=== PATIENT | female | born 1935 ===

== ENCOUNTER 2016-08-05 09:49 | Emergency (ER) | payer MEDICARE, MEDICAID ==
[2016-08-05 09:57] VITALS: BMI 21.5
--- NOTE | 2016-08-05 10:36 | ED PDOC ---
HPI: Seizure Time Seen by Provider: 08/05/16 10:07 Chief Complaint (Nursing): Seizure Chief Complaint (Provider): Seizure History Per: Patient History/Exam Limitations: no limitations Recent Seizure Activity Began: Just Before Arrival Number Of Seizures: One Length Of Seizures (Duration): Minutes Quality Of Seizure: Generalized Precipitating Factor(s): None Post-ictal Period: Yes Severity: Mild Additional Complaint(s): Patient is a 81 year old female with a history of dementia, brought to ED by EMS for seizure activity this morning. As per EMS, patient had a witnessed seizure while at her senior group. Patient reportedly collapsed to the floor on her left side seizure lasting 2 minutes. Patient in ED denies any complaints and is AO x3 PMD: Dr. Lara Past Medical History Reviewed: Historical Data, Nursing Documentation, Vital Signs Vital Signs: Last Vital Signs Temp 98.1 F 08/05/16 09:57 Pulse 87 08/05/16 09:57 Resp BP 155/75 H 08/05/16 09:57 Pulse Ox 97 08/05/16 12:07 - Medical History PMH: Anxiety, Arthritis, Asthma, Back Problems, Dementia (forgetful), Depression , Fractures (L wrist), Hypercholesterolemia, Seizures Denies: HIV, Chronic Kidney Disease - Surgical History Surgical History: No Surg Hx - Family History Family History: States: Unknown Family Hx - Immunization History Hx Tetanus Toxoid Vaccination: No - Home Medications Home Medications: Ambulatory Orders Medication Instructions Recorded Lamotrigine [Lamictal] 25 mg PO TID 05/06/14 Ascorbic Acid [Vitamin C] 500 mg PO DAILY 11/10/15 DiphenhydrAMINE [Benadryl] 50 mg PO HS 11/10/15 Donepezil HCl [Donepezil HCl] 10 mg PO HS 11/10/15 Duloxetine HCl [Duloxetine] 20 mg PO DAILY 11/10/15 Gabapentin [Neurontin] 100 mg PO TID 11/10/15 Rosuvastatin Calcium [Crestor] 20 mg PO HS 11/10/15 rOPINIRole [Requip] 1 mg PO HS 11/10/15 Fluticasone Nasal [Flonase] 2 spray GUSTAVO DAILY 08/05/16 Fluticasone/Vilanterol [Breo 1 puff IH DAILY 08/05/16 Ellipta 100-25 Mcg INH] Levocetirizine Dihydrochloride 5 mg PO DAILY 08/05/16 [Xyzal] Meclizine HCl [Meclizine HCl] 12.5 mg PO TID PRN 08/05/16 Oxybutynin XL [Ditropan XL] 15 mg PO DAILY 08/05/16 traMADol [Ultram] 50 mg PO Q6H PRN 08/05/16 - Allergies Allergies/Adverse Reactions: Allergies Allergy/AdvReac Type Severity Reaction Status Date / Time Penicillins Allergy RASH Verified 08/05/16 10:18 Review of Systems ROS Statement: Except As Marked, All Systems Reviewed And Found Negative Constitutional: Negative for: Weakness Eyes: Negative for: Vision Change Cardiovascular: Negative for: Chest Pain, Palpitations Respiratory: Negative for: Shortness of Breath Gastrointestinal: Negative for: Nausea, Vomiting, Abdominal Pain Musculoskeletal: Negative for: Neck Pain Neurological: Positive for: Seizures. Negative for: Weakness, Headache, Dizziness Physical Exam - Reviewed Nursing Documentation Reviewed: Yes Vital Signs Reviewed: Yes - Physical Exam Appears: Positive for: Non-toxic, No Acute Distress Head Exam: Positive for: ATRAUMATIC, NORMAL INSPECTION Skin: Positive for: Normal Color, Warm Eye Exam: Positive for: Normal appearance, EOMI, PERRL Neck: Positive for: Normal, Painless ROM Cardiovascular/Chest: Positive for: Regular Rate, Rhythm. Negative for: Murmur Respiratory: Positive for: Normal Breath Sounds. Negative for: Respiratory Distress Gastrointestinal/Abdominal: Positive for: Normal Exam. Negative for: Tenderness Extremity: Positive for: Normal ROM. Negative for: Pedal Edema Neurologic/Psych: Positive for: Alert, Oriented. Negative for: Motor/Sensory Deficits - Laboratory Results Result Diagrams: 08/05/16 11:18 08/05/16 11:18 - ECG O2 Sat by Pulse Oximetry: 97 (RA) Pulse Ox Interpretation: Normal Medical Decision Making Medical Decision Making: Time: 1010 Initial impression: recurrent seizure, head injury vs syncope Initial plan: -- CT-head -- EKG -- CMP -- Magnesium -- Urine dip -- CBC Time: 1200 CT-head results reviewed Impression: No acute intracranial abnormality Mild chronic microangiopathic changes and moderate age related global parenchymal volume loss Scribe Attestation: Documented by Marie Pulido acting as a scribe for Vamsi Savage MD MD Scribe Attestation: All medical record entries made by the Florinaibchad were at my direction and personally dictated by me. I have reviewed the chart and agree that the record accurately reflects my personal performance of the history, physical exam, medical decision making, and the department course for this patient. I have also personally directed, reviewed, and agree with the discharge instructions and disposition. Disposition - Clinical Impression Clinical Impression: Seizure disorder - Patient ED Disposition Is Patient to be Admitted: No Counseled Patient/Family Regarding: Studies Performed, Diagnosis - Disposition Disposition: Routine/Home Disposition Time: 12:23 Condition: GOOD
[2016-08-05 11:29] LABS: BASO % 0.6 % (0.0-2.0); EOS # 0.1 K/uL (0.0-0.7); HEMATOCRIT 41.4 % (34.0-47.0); LYMPH # 1.1 K/uL (1.0-4.3); LYMPH % 21.8 % (20.0-40.0); MEAN CELL VOLUME 86.8 fl (81.0-99.0); MEAN CORPUSCULAR HEMOGLOBIN 28.8 pg (27.0-31.0); MEAN CORPUSCULAR HGB CONC 33.2 g/dL (33.0-37.0); MEAN PLATELET VOLUME 10.3 fl (7.2-11.7); MONO # 0.6 K/uL (0.0-0.8); MONO % 11.3 % (0.0-10.0); NEUT # 3.1 K/uL (1.8-7.0); NEUT % 64.3 % (50.0-75.0); NRBC % 0.2 % (0.0-0.0); RED CELL DISTRIBUTION WIDTH 13.7 % (11.5-14.5); WHITE BLOOD COUNT 4.9 K/uL (4.8-10.8)
[2016-08-05 11:36] LABS: CHLORIDE 100 mmol/L (98-107); SODIUM 141 mmol/l (132-148)
[2016-08-05 11:37] LABS: POTASSIUM 4.3 MMOL/L (3.6-5.0)
[2016-08-05 11:39] LABS: ALB/GLOB RATIO 1.4 (1.0-2.1); ALKALINE PHOSPHATASE 54 U/L (38-126); ALT/SGPT 26 U/L (9-52); AST/SGOT 27 U/L (14-36); BLOOD UREA NITROGEN 14 mg/dl (7-17); CALCIUM 9.3 mg/dL (8.4-10.2); CARBON DIOXIDE 29 mmol/L (22-30); GFR AFRICAN-AMERICAN > 60; GLUCOSE,RANDOM 139 mg/dL (65-105); TOTAL PROTEIN 7.3 G/DL (6.3-8.2)
--- NOTE | 2016-08-05 11:39 | CT ---
PROCEDURE: CT HEAD WITHOUT CONTRAST. HISTORY: Seizure COMPARISON: 11/10/2015 TECHNIQUE: Axial computed tomography images were obtained through the head/brain without intravenous contrast. Radiation dose: Total exam DLP = 1024.97 mGy-cm. This CT exam was performed using one or more of the following dose reduction techniques: Automated exposure control, adjustment of the mA and/or kV according to patient size, and/or use of iterative reconstruction technique. FINDINGS: HEMORRHAGE: No intracranial hemorrhage. BRAIN: There are mild chronic microangiopathic changes. There is no mass, mass effect or abnormal extra-axial fluid collection. VENTRICLES: There is moderate age-related global parenchymal volume loss and proportionate enlargement of the ventricles and cortical sulci. CALVARIUM: The skull base and calvarium are normal. PARANASAL SINUSES: Predominantly clear. MASTOID AIR CELLS: Predominantly clear. OTHER FINDINGS: None. IMPRESSION: No acute intracranial abnormality. Mild chronic microangiopathic changes and moderate age-related global parenchymal volume loss.
[2016-08-05 12:53] VITALS: RESP 20; O2SAT 98
[2016-08-05 14:26] VITALS: BP 128/78; PULSE 80; TEMP 97.8
--- NOTE | 2016-08-05 19:03 | CARD ---
APPROVED REPORT EKG Measurement Heart [id number] <Conclusion> Normal sinus rhythm Possible Left atrial enlargement Borderline ECG
== END 2016-08-05 14:26 | disposition home or self-care (01) ==
LOC: H.ER 09:49
DX: G40.909 Epilepsy, unspecified, not intractable, without status epilepticus (principal); E78.00 Pure hypercholesterolemia, unspecified; F03.90 Unspecified dementia, unspecified severity, without behavioral disturbance, psychotic disturbance, mood disturbance, and anxiety

== ENCOUNTER 2016-09-11 09:03 | Observation (INO) | payer MEDICARE, MEDICAID ==
[2016-09-11 09:03] VITALS: BMI 21.5
[2016-09-11 09:05] VITALS: BP 146/76; RESP 16; TEMP 97.8; O2SAT 99
[2016-09-11] MEDS ORDERED: Lidocaine 5% Patch TD STA (09:22)
--- NOTE | 2016-09-11 09:27 | ED PDOC ---
HPI: Trauma/Fall - HPI Time Seen by Provider: 09/11/16 09:15 Chief Complaint (Nursing): Back Pain Chief Complaint (Provider): back pain History Per: Patient History/Exam Limitations: no limitations Onset/Duration Of Symptoms: Days (x 3) Injury Occurred (Timing): Days Ago: (x 3) Additional Complaint(s): Patient is an 81 year old female, with a previous medical history of arthritis, seizures, and possible hypercholesterolemia who presents to the ED with complaints of right sided back/flank pain associated with right lateral rib pain secondary to sustaining a fall 3 days ago. Patient reports that she lost balance while getting out of bed and hitting a small end table/night stand. Patient denies head trauma, loss of consciousness, neck pain or chest pain. Pt does c/o pain with deep inspiration. Patient states her home pain medications that she takes for arthritis is not helping w/ her pain. PMD: Dr. Lara Past Medical History Reviewed: Historical Data, Nursing Documentation, Vital Signs Vital Signs: Last Vital Signs Temp 97.8 F 09/11/16 09:04 Pulse 86 09/11/16 16:03 Resp 16 09/11/16 09:04 BP 146/76 09/11/16 09:04 Pulse Ox 99 09/11/16 16:03 - Medical History PMH: Anxiety, Arthritis, Asthma, Back Problems, Dementia (forgetful), Depression , Fractures (L wrist), Hypercholesterolemia, Seizures Denies: HIV, Chronic Kidney Disease - Surgical History Surgical History: No Surg Hx - Family History Family History: States: CAD - Social History Current smoker - smoking cessation education provided: No Alcohol: None Drugs: Denies - Immunization History Hx Tetanus Toxoid Vaccination: No - Home Medications Home Medications: Ambulatory Orders Medication Instructions Recorded Lamotrigine [Lamictal] 25 mg PO TID 05/06/14 Ascorbic Acid [Vitamin C] 500 mg PO DAILY 11/10/15 DiphenhydrAMINE [Benadryl] 50 mg PO HS 11/10/15 Donepezil HCl [Donepezil HCl] 10 mg PO HS 11/10/15 Duloxetine HCl [Duloxetine] 20 mg PO DAILY 11/10/15 Gabapentin [Neurontin] 100 mg PO TID 11/10/15 Rosuvastatin Calcium [Crestor] 20 mg PO HS 11/10/15 rOPINIRole [Requip] 1 mg PO HS 11/10/15 Fluticasone Nasal [Flonase] 2 spray GUSTAVO DAILY 08/05/16 Fluticasone/Vilanterol [Breo 1 puff IH DAILY 08/05/16 Ellipta 100-25 Mcg INH] Levocetirizine Dihydrochloride 5 mg PO DAILY 08/05/16 [Xyzal] Meclizine HCl [Meclizine HCl] 12.5 mg PO TID PRN 08/05/16 Oxybutynin XL [Ditropan XL] 15 mg PO DAILY 08/05/16 traMADol [Ultram] 50 mg PO Q6H PRN 08/05/16 - Allergies Allergies/Adverse Reactions: Allergies Allergy/AdvReac Type Severity Reaction Status Date / Time Penicillins Allergy RASH Verified 08/05/16 10:18 Review of Systems ROS Statement: Except As Marked, All Systems Reviewed And Found Negative Cardiovascular: Positive for: Other (pain with deep breaths, right lateral rib pain ). Negative for: Chest Pain Respiratory: Negative for: Shortness of Breath Musculoskeletal: Positive for: Back Pain (right back pain and flank) Physical Exam - Reviewed Nursing Documentation Reviewed: Yes Vital Signs Reviewed: Yes - Physical Exam Appears: Positive for: Well (alert and oriented to name, , location), Non- toxic, No Acute Distress Head Exam: Positive for: ATRAUMATIC, NORMAL INSPECTION, NORMOCEPHALIC Skin: Positive for: Normal Color (no echymosis to right flank/back) Eye Exam: Positive for: Normal appearance, EOMI, PERRL ENT: Positive for: Normal ENT Inspection Neck: Positive for: Normal (no c-spine tenderness), Painless ROM Cardiovascular/Chest: Positive for: Regular Rate, Rhythm. Negative for: Chest Non Tender (tenderness right lower lateral rib ) Respiratory: Positive for: Normal Breath Sounds Gastrointestinal/Abdominal: Positive for: Normal Exam, Bowel Sounds, Soft. Negative for: Tenderness Back: Positive for: R CVA Tenderness, Other (right paralumbar tenderness, pain with movement ). Negative for: Vertebral Tenderness Extremity: Positive for: Normal ROM, Other (right leg is not shortened; nor is it externally rotated). Negative for: Tenderness, Calf Tenderness, Deformity Neurologic/Psych: Positive for: Alert, Oriented (x 3). Negative for: Motor/ Sensory Deficits - Laboratory Results Result Diagrams: 09/11/16 09:40 09/11/16 09:40 - ECG ECG Rhythm: Positive for: Sinus Rhythm (normal ) Interpretation Of ECG: left atrial enlargement Rate: 86 (bpm) O2 Sat by Pulse Oximetry: 99 (RA) Pulse Ox Interpretation: Normal Medical Decision Making Medical Decision Making: Initial Impression: Fall with rib/back/flank pain Differential diagnosis includes but is not limited to: contusions, fracture (s) Initial Plan: * EKG * labs * x-ray ribs and chest * x-ray thoracic spine * x-ray right hip * x-ray lumbar spine * urinalysis * morphine * lidocaine * motrin * reevaluation Scribe Attestation: Documented by Iris Pompa, acting as a scribe for Maik Vasques D.O. Provider Scribe Attestation: All medical record entries made by the Scribe were at my direction and personally dictated by me. I have reviewed the chart and agree that the record accurately reflects my personal performance of the history, physical exam, medical decision making, and the department course for this patient. I have also personally directed, reviewed, and agree with the discharge instructions and disposition. ED OBSERVATION Discharge: Yes Date of observation admission: 09/11/16 Time of observation admission: 11:46 - Observation admission statement Patient is being placed in observation because:: Patient is still symptomatic; will need additional workup - Goals of Observation Goals of observation are:: Improvement of symptoms - Progress Note Progress Note: 09/11/16 16:02 No fractures on CTs. Pt feels better. Will d/c home. Disposition - Clinical Impression Clinical Impression: Back disorder, Contusion of rib on right side, Fall - Patient ED Disposition Is Patient to be Admitted: No - Disposition Disposition: Routine/Home Disposition Time: 16:03 Condition: IMPROVED - POA Present On Arrival: Falls Or Trauma
[2016-09-11 09:56] LABS: BASO % 0.6 % (0.0-2.0); EOS % 1.1 % (0.0-4.0); HEMATOCRIT 42.6 % (34.0-47.0); LYMPH # 0.7 K/uL (1.0-4.3); MEAN CELL VOLUME 87.2 fl (81.0-99.0); MEAN CORPUSCULAR HEMOGLOBIN 28.7 pg (27.0-31.0); MEAN CORPUSCULAR HGB CONC 32.9 g/dL (33.0-37.0); MEAN PLATELET VOLUME 9.2 fl (7.2-11.7); MONO # 0.5 K/uL (0.0-0.8); MONO % 10.2 % (0.0-10.0); NEUT # 3.2 K/uL (1.8-7.0); NEUT % 72.1 % (50.0-75.0); RED CELL DISTRIBUTION WIDTH 14.4 % (11.5-14.5); WHITE BLOOD COUNT 4.4 K/uL (4.8-10.8)
[2016-09-11 10:02] VITALS: PULSE 86
[2016-09-11 10:06] LABS: ALB/GLOB RATIO 1.4 (1.0-2.1); ALKALINE PHOSPHATASE 89 U/L (38-126); ALT/SGPT 30 U/L (9-52); AST/SGOT 24 U/L (14-36); BILIRUBIN,TOTAL 0.8 mg/dl (0.2-1.3); BLOOD UREA NITROGEN 12 mg/dl (7-17); CALCIUM 9.5 mg/dL (8.4-10.2); CARBON DIOXIDE 29 mmol/L (22-30); CHLORIDE 104 mmol/L (98-107); GFR AFRICAN-AMERICAN > 60; GLUCOSE,RANDOM 104 mg/dL (65-105); POTASSIUM 4.1 MMOL/L (3.6-5.0); SODIUM 142 mmol/l (132-148); TOTAL PROTEIN 7.3 G/DL (6.3-8.2)
--- NOTE | 2016-09-11 13:17 | CT ---
PROCEDURE: CT Chest without contrast HISTORY: Fall w/ signf. right rig pain; r/o rib fractures COMPARISON: None. TECHNIQUE: Contiguous axial images were obtained through the chest without intravenous contrast enhancement. Sagittal and coronal reconstructions were performed. Radiation dose (DLP): 594 mGy-cm. This CT exam was performed using one or more of the following dose reduction techniques: Automated exposure control, adjustment of the mA and/or kV according to patient size, and/or use of iterative reconstruction technique. FINDINGS: LUNGS: Clear lungs. Visualized airway clear. MEDIASTINUM: Unremarkable thoracic aorta. No aneurysm. Normal sized heart. Main pulmonary artery unremarkable. No vascular congestion. No lymphadenopathy. 1.3 centimeters soft tissue density in the anterior mediastinum. PLEURA: No pleural fluid. No pneumothorax. BONES: No fracture. No destructive lesion. UPPER ABDOMEN: Grossly unremarkable. OTHER FINDINGS: None. IMPRESSION: No rib fracture.
--- NOTE | 2016-09-11 13:19 | CT ---
PROCEDURE: CT Lumbar Spine without contrast HISTORY: Fall w/ back pain; r/o acute compression fx Lspine COMPARISON: None. TECHNIQUE: Axial computed tomography images were obtained of the lumbar spine without the use of intravenous contrast. Coronal and sagittal reformatted images were created and reviewed. Radiation dose: Total exam DLP = 982 mGy-cm. This CT exam was performed using one or more of the following dose reduction techniques: Automated exposure control, adjustment of the mA and/or kV according to patient size, and/or use of iterative reconstruction technique. FINDINGS: VERTEBRAE: Chronic wedge compression deformity of L2. Status post cementing of an L3 compression fracture. Unremarkable. No fracture. Normal alignment. DISCS/SPINAL CANAL/NEURAL FORAMINA: L1-2: Unremarkable. L2-3: Unremarkable. L3-4: Unremarkable. L4-5: Unremarkable. L5-S1: Unremarkable. PARASPINAL SOFT TISSUES: Unremarkable. OTHER FINDINGS: None. IMPRESSION: Chronic wedge compression deformity of L2. Status post cementing of an L3 compression fracture.
--- NOTE | 2016-09-11 15:25 | CT ---
PROCEDURE: CT Pelvis without contrast HISTORY: Fall;can't walk; right hip pain; r/o pelvis/hip fx COMPARISON: None. TECHNIQUE: Contiguous axial images of the pelvis . No intravenous or oral contrast given. Coronal and sagittal reformats generated. Radiation dose: Total exam DLP = 1210 mGy-cm. This CT exam was performed using one or more of the following dose reduction techniques: Automated exposure control, adjustment of the mA and/or kV according to patient size, and/or use of iterative reconstruction technique. FINDINGS: BLADDER: Unremarkable. No mass. REPRODUCTIVE ORGANS: Unremarkable. VISUALIZED BOWEL: Unremarkable. PERITONEUM: Unremarkable, as visualized. No free fluid. No free air. LYMPH NODES: Unremarkable. No enlarged lymph nodes. BONES: No fracture or focal lesion. VASCULATURE: Unremarkable. OTHER FINDINGS: None. IMPRESSION: Unremarkable non-contrast enhanced CT of the pelvis.
--- NOTE | 2016-09-11 15:46 | RAD ---
HISTORY: Fall with low back and lower thoracic pain COMPARISON: No prior. FINDINGS: BONES: Lower thoracic compression deformities, possibly chronic. DISC SPACES: Normal. SOFT TISSUES: Normal. OTHER FINDINGS: None. IMPRESSION: Lower thoracic compression deformities, possibly chronic.
--- NOTE | 2016-09-11 15:48 | RAD ---
PROCEDURE: Radiographs of the Lumbar Spine. HISTORY: Fall with low back and lower thoracic pain COMPARISON: No prior. FINDINGS: BONES: Multiple wedge compression deformities. DISC SPACES: Unremarkable. OTHER FINDINGS: None. IMPRESSION: Multiple wedge compression deformities likely chronic.
--- NOTE | 2016-09-11 15:49 | RAD ---
HISTORY: Fall w/ right hip pain COMPARISON: No prior FINDINGS: BONES: Normal. No fracture. JOINTS: Normal. No osteoarthritis. SOFT TISSUE: Normal. OTHER FINDINGS: None . IMPRESSION: Normal Bone Xray.
--- NOTE | 2016-09-11 15:51 | RAD ---
HISTORY: Fall c/o right flank/rib pain COMPARISON: No prior FINDINGS: BONES: Normal. No fracture. JOINTS: Normal. No osteoarthritis. SOFT TISSUE: Normal. OTHER FINDINGS: None . IMPRESSION: Normal Bone Xray.
--- NOTE | 2016-09-13 09:14 | CARD ---
APPROVED REPORT EKG Measurement Heart [id number] MI [id number] [id number] <Conclusion> Normal sinus rhythm with sinus arrhythmia Possible Left atrial enlargement Borderline ECG
== END 2016-09-11 16:03 | disposition home or self-care (01) ==
LOC: H.ER 09:03 → H.EROBSV 11:47
PROVIDERS: ADMIT Emergency Medicine; ATTEND Emergency Medicine
DX: M54.9 Dorsalgia, unspecified (principal); E78.00 Pure hypercholesterolemia, unspecified; F03.90 Unspecified dementia, unspecified severity, without behavioral disturbance, psychotic disturbance, mood disturbance, and anxiety; J45.909 Unspecified asthma, uncomplicated; M19.90 Unspecified osteoarthritis, unspecified site; S20.211A Contusion of right front wall of thorax, initial encounter; W19.XXXA Unspecified fall, initial encounter; Y93.9 Activity, unspecified; Y92.9 Unspecified place or not applicable; Z88.0 Allergy status to penicillin; F32.9 Major depressive disorder, single episode, unspecified; F41.9 Anxiety disorder, unspecified
CPT/HCPCS: 71101; 71250; 72070; 72100; 72131; 72192; 73502; 80053; 82550; 85025; 96374; 99282; G0378; J2270

== ENCOUNTER 2016-10-25 14:50 | Inpatient (IN) | payer MEDICARE, MEDICAID ==
[2016-10-25 14:50] VITALS: BMI 21.5
[2016-10-25] MEDS ORDERED: Sodium Chloride 0.9% 1,000 ML IV STA (15:09)
--- NOTE | 2016-10-25 15:26 | ED PDOC ---
HPI: Trauma/Fall - HPI Chief Complaint (Nursing): Trauma Chief Complaint (Provider): Generalized Pain History Per: Patient History/Exam Limitations: no limitations Onset/Duration Of Symptoms: Days (1) Additional Complaint(s): Donya Laureano is a 81 y/o female presenting to the ER on 10/25/2016 with complaints of generalized pain. Patient states episode occurred after she got up to use the bathroom yesterdays morning. When she was coming out, she felt dizzy and fell to the floor landing on the front of her body. She has been on the floor since the episode yesterday until she was brought to the ED for medical evaluation. She is now complaining of pain all over her body. Patient denies any associated lost of consciousness, vomiting, nausea, paresthesia, weakness, or headaches. Past Medical History Reviewed: Historical Data, Nursing Documentation, Vital Signs Vital Signs: Last Vital Signs Temp 98.3 F 10/25/16 14:55 Pulse 66 10/25/16 14:55 Resp 16 10/25/16 14:55 BP 133/68 10/25/16 14:55 Pulse Ox 98 10/25/16 14:55 - Medical History PMH: Anxiety, Arthritis, Asthma, Back Problems, Dementia (forgetful), Depression , Fractures (L wrist), Hypercholesterolemia, Seizures Denies: HIV, Chronic Kidney Disease - Surgical History Surgical History: No Surg Hx - Family History Family History: States: Unknown Family Hx, CAD - Social History Current smoker - smoking cessation education provided: No Alcohol: None Drugs: Denies - Immunization History Hx Tetanus Toxoid Vaccination: No - Home Medications Home Medications: Ambulatory Orders Medication Instructions Recorded Lamotrigine [Lamictal] 25 mg PO TID 05/06/14 Duloxetine HCl 20 mg PO DAILY 11/10/15 Gabapentin [Neurontin] 100 mg PO TID 11/10/15 Rosuvastatin Calcium [Crestor] 20 mg PO HS 11/10/15 rOPINIRole [Requip] 1 mg PO HS 11/10/15 Fluticasone/Vilanterol [Breo 1 puff IH DAILY 08/05/16 Ellipta 100-25 Mcg INH] Levocetirizine Dihydrochloride 5 mg PO DAILY 08/05/16 [Xyzal] Meclizine HCl 12.5 mg PO TID PRN 04/06/17 Oxybutynin XL [Ditropan XL] 15 mg PO DAILY 08/05/16 Ibuprofen [Motrin Tab] 1 tab PO Q8 PRN #20 tab 09/11/16 DULoxetine [Cymbalta] 20 mg PO DAILY 10/25/16 Aspirin [Aspirin Chewable] 81 mg PO DAILY 10/29/16 Fluticasone/Salmeterol 500/50 1 puff IH Q12 puff 10/29/16 [Advair Diskus 500/50] - Allergies Allergies/Adverse Reactions: Allergies Allergy/AdvReac Type Severity Reaction Status Date / Time Penicillins Allergy RASH Verified 10/25/16 14:55 Review of Systems ROS Statement: Except As Marked, All Systems Reviewed And Found Negative Cardiovascular: Negative for: Light Headedness Gastrointestinal: Negative for: Nausea, Vomiting Musculoskeletal: Positive for: Other ((+) generalized pain ) Neurological: Positive for: Other ((-) paraesthesia ). Negative for: Weakness, Numbness Physical Exam - Reviewed Nursing Documentation Reviewed: Yes Vital Signs Reviewed: Yes - Physical Exam Appears: Positive for: Non-toxic, No Acute Distress Head Exam: Positive for: ATRAUMATIC, NORMOCEPHALIC Skin: Positive for: Normal Color. Negative for: Rash Eye Exam: Positive for: Normal appearance, EOMI, PERRL ENT: Positive for: Normal ENT Inspection. Negative for: Pharyngeal Erythema, Tonsillar Exudate, Tonsillar Swelling Neck: Positive for: Normal ((-) neck tenderness ), Painless ROM, Supple Cardiovascular/Chest: Positive for: Regular Rate, Rhythm, Other ((+) ecchymosis to upper chest ). Negative for: Murmur Respiratory: Positive for: Normal Breath Sounds. Negative for: Wheezing, Respiratory Distress Gastrointestinal/Abdominal: Positive for: Normal Exam, Soft. Negative for: Tenderness Back: Positive for: Normal Inspection. Negative for: L CVA Tenderness, R CVA Tenderness, Vertebral Tenderness Extremity: Positive for: Normal ROM (decreased ROM to right shoulder but pt is able to move all four extremities ), Tenderness ((+) shoulder bilat and right hip ) Neurologic/Psych: Positive for: Alert, Oriented. Negative for: Motor/Sensory Deficits - Laboratory Results Result Diagrams: 10/26/16 05:20 10/26/16 05:20 - ECG Interpretation Of ECG: NSR @ 75, PVC, no ST-T changes. O2 Sat by Pulse Oximetry: 98 Pulse Ox Interpretation: Normal - Radiology X-Ray: Interpreted by Me X-Ray Interpretation: No Acute Disease Medical Decision Making Medical Decision Makin:58 Initial Impression- 81 y/o female with generalized pain s/p fall Initial Plan- * CT Cervical Spine w/o contrast * CT Chest w/o contrast * CT head w/o contrast * EKG * CMP * CPK * Troponin * CBC w/ differential * Urine dip * PTT * PT * CXR portable * Tylenol 650 mg PO * Sodium Chloride 1,000 ml IV * XR Hip Bilat * XR Pelvis * XR Shoulder Left * XR Shoulder righ * Urinalysis * Re-evaluate Documented by Dina Marina, acting as a scribe for Iris Portillo MD. All medical record entries made by the Scribe were at my direction and personally dictated by me. I have reviewed the chart and agree that the record accurately reflects my personal performance of the history, physical exam, medical decision making, and the department course for this patient. I have also personally directed, reviewed, and agree with the discharge instructions and disposition. Disposition - Clinical Impression Clinical Impression: Fall - Disposition Disposition: Transfer of Care Disposition Time: 17:00 Condition: STABLE Patient Signed Over To: Hussein Agustin
[2016-10-25 16:51] LABS: ALB/GLOB RATIO 1.4 (1.0-2.1); ALBUMIN 4.6 g/dL (3.5-5.0); ALT/SGPT 28 U/L (9-52); AST/SGOT 67 U/L (14-36); BLOOD UREA NITROGEN 9 mg/dl (7-17); CALCIUM 9.3 mg/dL (8.4-10.2); GFR AFRICAN-AMERICAN > 60; GFR NON-AFRICAN AMERICAN > 60
--- NOTE | 2016-10-25 16:56 | CT ---
PROCEDURE: CT HEAD WITHOUT CONTRAST. HISTORY: Fall COMPARISON: None available. TECHNIQUE: Axial computed tomography images were obtained through the head/brain without intravenous contrast. Radiation dose: Total exam DLP = 909.05 mGy-cm. This CT exam was performed using one or more of the following dose reduction techniques: Automated exposure control, adjustment of the mA and/or kV according to patient size, and/or use of iterative reconstruction technique. FINDINGS: HEMORRHAGE: No intracranial hemorrhage. BRAIN: Diffuse atrophy with prominence of the ventricles and sulci noted. No mass effect or edema. Intracranial atherosclerotic calcifications. Scattered periventricular and subcortical white matter hypodensities, which are nonspecific, but often seen with chronic microvascular ischemic disease. Please note that MRI with diffusion imaging is more sensitive in the detection of acute ischemic event. VENTRICLES: No hydrocephalus. CALVARIUM: Unremarkable. PARANASAL SINUSES: Unremarkable as visualized. No significant inflammatory changes. MASTOID AIR CELLS: Unremarkable as visualized. No inflammatory changes. OTHER FINDINGS: Evidence of left hearing aid device. IMPRESSION: Nonspecific white matter changes. Generalized atrophy.
--- NOTE | 2016-10-25 17:02 | CT ---
PROCEDURE: CT Chest without contrast HISTORY: Fall, chest bruising COMPARISON: 09/11/2016 TECHNIQUE: Contiguous axial images were obtained through the chest without intravenous contrast enhancement. Sagittal and coronal reconstructions were performed. Radiation dose (DLP): 566.72 mGy-cm. This CT exam was performed using one or more of the following dose reduction techniques: Automated exposure control, adjustment of the mA and/or kV according to patient size, and/or use of iterative reconstruction technique. FINDINGS: LUNGS: Mild mosaic attenuation in both lower lobes. This represents interval change from 09/11/2016. It is a nonspecific finding. No pulmonary infiltrate. MEDIASTINUM: Unremarkable thoracic aorta. No aneurysm. Mild cardiomegaly. Coronary arterial calcification. Main pulmonary artery unremarkable. No vascular congestion. No bulky lymphadenopathy. Nodular sub carinal calcification likely represents calcified old granulomatous node. 1.8 cm ovoid circumscribed fluid collection in the anterior mediastinum, anterior to the ascending thoracic aorta. This is unchanged from prior examination, in retrospect, and may represent a pericardial cyst. There is a small hiatal hernia present. PLEURA: No pleural fluid. No pneumothorax. BONES: Fractures of the right 10th and 11th ribs anteriorly. Eleventh rib fracture is seen, in retrospect, on prior CT examination. Tenth rib fracture appears new. Multiple thoracic vertebral compression fractures of varying degree, most pronounced at the T12 level where there is severe compression deformity. These are unchanged from the prior CT examination. No evidence of new compression deformity. Status post kyphoplasty of L3 vertebra. UPPER ABDOMEN: Nonspecific 11 mm low-attenuation lesion in the lateral segment of the left hepatic lobe. No change. OTHER FINDINGS: None. IMPRESSION: New fracture of the right 10th rib anteriorly. Old right 11th rib fracture. Multiple old thoracic vertebral compression deformities. No other acute abnormality. Minor findings as above.
--- NOTE | 2016-10-25 17:22 | ED PDOC ---
- Laboratory Results Result Diagrams: 10/26/16 05:20 10/26/16 05:20 - ECG O2 Sat by Pulse Oximetry: 98 Medical Decision Making Medical Decision Makin:00 Pt signed out to me by Dr. Bandar MD. Pending CT Head, labs, and final disposition. CT CHEST FINDINGS: LUNGS: Mild mosaic attenuation in both lower lobes. This represents interval change from 09/11/2016. It is a nonspecific finding. No pulmonary infiltrate. MEDIASTINUM: Unremarkable thoracic aorta. No aneurysm. Mild cardiomegaly. Coronary arterial calcification. Main pulmonary artery unremarkable. No vascular congestion. No bulky lymphadenopathy. Nodular sub carinal calcification likely represents calcified old granulomatous node. 1.8 cm ovoid circumscribed fluid collection in the anterior mediastinum, anterior to the ascending thoracic aorta. This is unchanged from prior examination, in retrospect, and may represent a pericardial cyst. There is a small hiatal hernia present. PLEURA: No pleural fluid. No pneumothorax. BONES: Fractures of the right 10th and 11th ribs anteriorly. Eleventh rib fracture is seen, in retrospect, on prior CT examination. Tenth rib fracture appears new. Multiple thoracic vertebral compression fractures of varying degree, most pronounced at the T12 level where there is severe compression deformity. These are unchanged from the prior CT examination. No evidence of new compression deformity. Status post kyphoplasty of L3 vertebra. UPPER ABDOMEN: Nonspecific 11 mm low-attenuation lesion in the lateral segment of the left hepatic lobe. No change. OTHER FINDINGS: None. IMPRESSION: New fracture of the right 10th rib anteriorly. Old right 11th rib fracture. Multiple old thoracic vertebral compression deformities. No other acute abnormality. Minor findings as above. CT HEAD FINDINGS: HEMORRHAGE: No intracranial hemorrhage. BRAIN: Diffuse atrophy with prominence of the ventricles and sulci noted. No mass effect or edema. Intracranial atherosclerotic calcifications. Scattered periventricular and subcortical white matter hypodensities, which are nonspecific, but often seen with chronic microvascular ischemic disease. Please note that MRI with diffusion imaging is more sensitive in the detection of acute ischemic event. VENTRICLES: No hydrocephalus. CALVARIUM: Unremarkable. PARANASAL SINUSES: Unremarkable as visualized. No significant inflammatory changes. MASTOID AIR CELLS: Unremarkable as visualized. No inflammatory changes. OTHER FINDINGS: Evidence of left hearing aid device. IMPRESSION: Nonspecific white matter changes. Generalized atrophy. CT CERVICAL FINDINGS VERTEBRAE: No current study reveals no evidence of acute displaced or compression fractures no retropulsed fragments. Re- demonstrated are chronic appearing by concave compression endplate deformities involving the T1 T2 and probably T3 segments however note that the T3 segment was not visualized on this prior study. . Minor chronic anterior stature loss of the C5, and to a lesser degree C6 segments felt to be degenerative in origin also unchanged. DISCS/SPINAL CANAL/NEURAL FORAMINA: Multilevel degenerative spondylosis of the cervical spine. At the C2-C3 level, there is minor posterior disc space narrowing. No disc herniation or significant disc bulge. Facets are slightly hypertrophic. Central canal and exit foramina are adequate. Minor Minor posterior disc space narrowing seen at the C3-C4 level with small central and bilateral disc bulge ridge complex that exhibits some calcification the along its posterior peripheral margins. Disc results in mild canal narrowing and presumed flattening of the ventral surface of the cord. Minor degenerative squaring of the uncovertebral joints. Facets are mildly hypertrophic. Exit foramina appear narrowed on the right and adequate on the left. At the C4-C5 level, there is marked disc space narrowing, cortical endplate irregularity and small osteophytic ridge complex contiguous with hypertrophic uncovertebral joints. Facets also mildly hypertrophic. Changes result in mild canal narrowing and cord compression. Exit foramina are stenotic on the right and mildly narrowed on the left. At the C5-C6 level, there is similar disc space narrowing, cortical endplate irregularity and small to medium-sized osteophytic ridge disc complex contiguous with hypertrophic uncovertebral joints. Changes result in mild canal narrowing and cord compression. Exit foramina are stenotic bilaterally. Similar changes seen at the C6-C7 level. PARASPINAL SOFT TISSUES: OTHER FINDINGS: Prevertebral and paraspinal soft tissues unremarkable Mild anterior subcutaneous infiltration changes at the level of the lower neck and anterior upper chest. Clinical correlation recommended. Calcified plaque changes both carotid arteries. Consider followup carotid ultrasound if not recently performed. Lung apices are clear. IMPRESSION: No acute fractures. Chronic by concave endplate compression deformities involving the the the the T1, T2 and probably T3 segments. Chronic anterior stature loss of C5 and less so C6 felt to be degenerative in origin. Multilevel degenerative spondylosis most notably affecting the C3-C4 through the C6-C7 levels as above. Mild anterior subcutaneous infiltration changes at the level of the lower neck and anterior upper chest. Clinical correlation recommended. Documented by Dina Marina, acting as a alondra Agustin MD. All medical record entries made by the Alondra were at my direction and personally dictated by me. I have reviewed the chart and agree that the record accurately reflects my personal performance of the history, physical exam, medical decision making, and the department course for this patient. I have also personally directed, reviewed, and agree with the discharge instructions and disposition. Disposition Discussed With : Sj Lara Doctor Will See Patient In The: Hospital Counseled Patient/Family Regarding: Studies Performed, Diagnosis, Need For Followup - Clinical Impression Clinical Impression: Fall, Seizure - POA Present On Arrival: Falls Or Trauma - Disposition Disposition: Hospitalized as Observation Patient Disposition Time: 18:30 Condition: FAIR
[2016-10-25 17:34] LABS: BASO % 0.4 % (0.0-2.0); EOS % 0.3 % (0.0-4.0); HEMOGLOBIN 14.8 g/dL (12.0-16.0); LYMPH % 9.7 % (20.0-40.0); MEAN CELL VOLUME 87.1 fl (81.0-99.0); MEAN CORPUSCULAR HEMOGLOBIN 28.4 pg (27.0-31.0); MEAN CORPUSCULAR HGB CONC 32.6 g/dL (33.0-37.0); MEAN PLATELET VOLUME 9.7 fl (7.2-11.7); MONO # 0.9 K/uL (0.0-0.8); MONO % 8.7 % (0.0-10.0); NEUT # 8.1 K/uL (1.8-7.0); NEUT % 80.9 % (50.0-75.0); PLATELET COUNT 85 K/uL (130-400); RBC 5.23 Mil/uL (3.80-5.20)
[2016-10-25 18:00] LABS: PARTIAL THROMBOPLASTIN TIME 28.2 Seconds (25.6-37.1)
[2016-10-25 18:04] LABS: INR 1.2 (0.9-1.2)
[2016-10-25 18:28] LABS: LYMPHOCYTE 12 % (20-50); MONOCYTE 6 % (0-10); NEUTROPHIL 81 % (42-75); REACTIVE LYMPHOCYTES 1 % (0-0); TOTAL CELLS COUNTED 100
[2016-10-25 18:29] LABS: PLATELET ESTIMATE DECREASED (NORMAL)
[2016-10-25 18:30] LABS: GIANT PLATELETS PRESENT
--- NOTE | 2016-10-25 19:01 | RAD ---
HISTORY: Fall COMPARISON: Chest x-ray performed 09/11/16 TECHNIQUE: Chest, one view. FINDINGS: LUNGS: No focal consolidation. Please note that chest x-ray has limited sensitivity for the detection of pulmonary masses. PLEURA: No significant pleural effusion identified. No definite pneumothorax . CARDIOVASCULAR: Cardiomegaly. Atherosclerotic calcifications of the aorta. OSSEOUS STRUCTURES: Partially imaged vertebroplasty the lumbar spine. Osseous demineralization. Degenerative changes of the spine and shoulders. Acromioclavicular arthropathy. VISUALIZED UPPER ABDOMEN: Unremarkable. OTHER FINDINGS: None. IMPRESSION: Cardiomegaly. Atherosclerotic calcifications of the aorta. Prior vertebroplasty. Diffuse osseous demineralization and degenerative changes.
--- NOTE | 2016-10-25 19:02 | RAD ---
PROCEDURE: Radiographs of the Right Shoulder HISTORY: Fall COMPARISON: None. FINDINGS: BONES: Diffuse osseous demineralization limits evaluation for acute fracture lines. No acute displaced fracture. The distal clavicle and underlying ribs appear intact. JOINTS: No acute dislocation. SOFT TISSUES: Soft tissues appear unremarkable. No evidence of radiopaque foreign body. IMPRESSION: Diffuse osseous demineralization limits evaluation for acute fracture lines. If this remains of high clinical concern, recommend MRI for further evaluation. No acute displaced fracture or dislocation evident.
--- NOTE | 2016-10-25 20:59 | CARD ---
APPROVED REPORT EKG Measurement Heart [id number] <Conclusion> Sinus rhythm with sinus arrhythmia with occasional premature ventricular complexes Otherwise normal ECG
[2016-10-25] MEDS: Oxycodone/Acetaminophen 5/325 mg Tab PO PRN (22:54)
[2016-10-25] MEDS: Sodium Chloride 0.9% 1,000 ML IV SCH (22:57)
[2016-10-26] MEDS: Oxycodone/Acetaminophen 5/325 mg Tab PO PRN ×2 (04:44→17:14)
[2016-10-26 04:52] LABS: SQUAMOUS EPITHIAL 7 /hpf (0-5); URINE BACTERIA RARE (<OCC); URINE BILIRUBIN NEGATIVE (NEGATIVE); URINE BLOOD NEGATIVE (NEGATIVE); URINE CLARITY SLIGHTY-CLOUDY (Clear); URINE COLOR YELLOW (YELLOW); URINE GLUCOSE (UA) NEG (Normal); URINE LEUKOCYTE ESTERASE NEG Leu/uL (Negative); URINE NITRATE NEGATIVE (NEGATIVE); URINE PROTEIN NEGATIVE (NEGATIVE); URINE UROBILINOGEN 0.2-1.0 mg/dL (0.2-1.0)
[2016-10-26 07:18] LABS: HEMOGLOBIN 13.5 g/dL (12.0-16.0); MEAN CELL VOLUME 86.8 fl (81.0-99.0); MEAN CORPUSCULAR HEMOGLOBIN 28.4 pg (27.0-31.0); MEAN CORPUSCULAR HGB CONC 32.8 g/dL (33.0-37.0); RBC 4.76 Mil/uL (3.80-5.20); RED CELL DISTRIBUTION WIDTH 13.9 % (11.5-14.5); WHITE BLOOD COUNT 6.4 K/uL (4.8-10.8)
[2016-10-26 07:21] LABS: BLOOD UREA NITROGEN 10 mg/dl (7-17); CALCIUM 8.6 mg/dL (8.4-10.2); GFR AFRICAN-AMERICAN > 60; GFR NON-AFRICAN AMERICAN > 60
[2016-10-26 07:22] LABS: ALB/GLOB RATIO 1.2 (1.0-2.1); ALBUMIN 3.7 g/dL (3.5-5.0); ALT/SGPT 40 U/L (9-52); AST/SGOT 38 U/L (14-36); HDL CHOLESTEROL 59 MG/DL (30-70)
[2016-10-26 07:33] LABS: LDL CHOLESTEROL 54 mg/dL (0-129)
[2016-10-26 07:38] LABS: T4 6.84 ug/dl (5.5-11.0)
[2016-10-26] MEDS ORDERED: Gadodiamide 287 MG/ML VIAL (15ML) IV ONE (08:56)
--- NOTE | 2016-10-26 12:18 | MRI ---
PROCEDURE: MRI BRAIN WITH AND WITHOUT CONTRAST HISTORY: Near Syncope COMPARISON: Comparison made with CT scan brain dated 10/25/2016 TECHNIQUE: Multiplanar, multisequence MR images of the brain were obtained before and following intravenous injection of 10 cc Omniscan contrast material. Study is limited by motion artifact FINDINGS: HEMORRHAGE: No acute parenchymal, subarachnoid or extra-axial hemorrhage. No hemosiderin deposition identified on gradient echo weighted sequence DWI: No evidence of an acute or early subacute infarction seen on diffusion imaging. . BRAIN PARENCHYMA: Mild chronic periventricular white matter ischemic changes with multiple more discrete chronic appearing lacunar type infarcts scattered about the deep and subcortical white matter both cerebral hemispheres. . In addition, there also appear to be a few scattered chronic bilateral basal nuclei lacunar type infarcts. Partially empty sella. Moderate generalized volume loss. ENHANCEMENT: No enhancing parenchymal nor extra-axial masses or collections. No evidence of unusual meningeal enhancement. VENTRICLES: No evidence of obstructive hydrocephalus. CRANIUM: Unremarkable. ORBITS: Changes of bilateral cataract surgery PARANASAL SINUSES/MASTOIDS: Clear VASCULAR SYSTEM: Skull base flow voids intact. OTHER FINDINGS: None . IMPRESSION: Limited motion degraded study. No acute intracranial hemorrhage or infarct. 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 Moderate generalized volume loss. No enhancing lesions seen.
[2016-10-26] MEDS: Fluticasone-Salmeterol 500-50mcg Diskus IH SCH ×2 (12:43→20:42)
[2016-10-26] MEDS ORDERED: Sodium Chloride 0.9% 1,000 ML IV SCH (13:15)
--- NOTE | 2016-10-26 14:47 | CP.PCM.HP ---
History of Present Illness - History of Present Illness History of Present Illness: CC: Near Syncope. 81 y/o F, brought by EMS to [facility], [place] for Near Syncope, onset day [employer]. As per Pt, she stood up to go to bathroom at home when suddenly she felt dizziness and fell landing in front of her body, not associated to LOC. Pt was on the floor until next days when was found by her homemaker, EMS was called and Pt was brought to [facility] for evaluation and Tx. and there after was admitted. Worsening symptoms: Severe and sharp pain in shoulder and back 2nd to fall, intensity 8:10 Aggravated factor: Increased pain with movements. Pt denied: Headache, weakness, paresthesia, n/v/d, abdominal pain, CP, SOB, sick contact, recent travel. PMHx: Seizure , Asthma, Dementia, Arthritis, depression, Anxiety, Hypercholesterolemia, urinary incontinence, Constipation, Compression Fx L3 2nd to Osteoporosis, Fx L wrist, Hard of hearing L ear, Dizziness. Brain MRI: No acute intracranial hemorrhage or infarct, scattered chronic basal nuclei lacunar type infarcts. CT Chest: No pleural effusion, no pneumothorax, new Fx of the R 10th Rib, old Fx of the R 11th Rib. CXR: No focal consolidations. Shoulders X-Ray: No displacements or dislocations. Head CT: Nonspecific white matter changes, generalized atrophy. EKG: Sinus rhythm with sinus arrhythmia with occasional premature ventricular complexes. Present on Admission - Present on Admission Any Indicators Present on Admission: No Review of Systems - Constitutional Constitutional: Frequent Falls, Weakness - EENT Eyes: Requires Corrective Lenses Ears: Decreased Hearing (Left) Nose/Mouth/Throat: Other (negative) - Cardiovascular Cardiovascular: Other (negative) - Respiratory Respiratory: Other (negative) - Gastrointestinal Gastrointestinal: Other (negative) - Genitourinary Genitourinary: Urinary Incontinence - Musculoskeletal Musculoskeletal: Arthralgias, Back Pain - Integumentary Integumentary: Other (Skin tear L elbow) - Neurological Neurological: Confusion, Frequent Falls, Syncope, Weakness - Psychiatric Psychiatric: Anxiety, Depression - Endocrine Endocrine: Other (negative) - Hematologic/Lymphatic Hematologic: Other (negative) Past Patient History - Infectious Disease Hx of Infectious Diseases: None - Past Medical History & Family History Past Medical History?: Yes Pertinent Family History: Unknown - Past Social History Smoking Status: Never Smoked Alcohol: None Drugs: Denies Home Situation {Lives}: Alone - CARDIAC Hx Cardiac Disorders: Yes Hx Hypercholesterolemia: Yes - PULMONARY Hx Respiratory Disorders: Yes Hx Asthma: Yes - NEUROLOGICAL Hx Neurological Disorder: Yes Hx Dementia: Yes Hx Dizziness: Yes Hx Seizures: Yes Hx Vertigo: Yes - HEENT Hx HEENT Problems: Yes - RENAL Hx Chronic Kidney Disease: No - ENDOCRINE/METABOLIC Hx Endocrine Disorders: No - HEMATOLOGICAL/ONCOLOGICAL Hx Blood Disorders: No Hx AIDS: No Hx Blood Transfusions: No Hx Human Immunodeficiency Virus (HIV): No - INTEGUMENTARY Hx Dermatological Problems: No - MUSCULOSKELETAL/RHEUMATOLOGICAL Hx Musculoskeletal Disorders: Yes Hx Arthritis: Yes Hx Falls: Yes Hx Fractures: Yes (L wrist) Hx Osteoporosis: Yes - GASTROINTESTINAL Hx Gastrointestinal Disorders: Yes Hx Constipation: Yes - GENITOURINARY/GYNECOLOGICAL Hx Genitourinary Disorders: Yes Hx Incontinence: Yes - PSYCHIATRIC Hx Psychophysiologic Disorder: Yes Hx Anxiety: Yes Hx Depression: Yes Hx Substance Use: No - SURGICAL HISTORY Hx Surgeries: Yes Hx Tubal Ligation: Yes - ANESTHESIA Hx Anesthesia: Yes Hx Anesthesia Reactions: No Meds Home Medications: Home Medication List Medication Instructions Recorded Confirmed Type Aspirin [Aspirin Chewable] 81 mg PO DAILY 10/29/16 Rx Fluticasone/Salmeterol 500/50 1 puff IH Q12 puff 10/29/16 Rx [Advair Diskus 500/50] Allergies/Adverse Reactions: Allergies Allergy/AdvReac Type Severity Reaction Status Date / Time Penicillins Allergy RASH Verified 10/25/16 14:55 Physical Exam - Constitutional Appears: No Acute Distress, Chronically Ill - Head Exam Head Exam: NORMAL INSPECTION - Eye Exam Eye Exam: PERRL - ENT Exam Additional comments: Hard of hearing L ear. - Neck Exam Neck exam: Positive for: Normal Inspection - Respiratory Exam Respiratory Exam: Chest Wall Tenderness (Right), NORMAL BREATHING PATTERN Additional comments: Chest ecchymosis - Cardiovascular Exam Cardiovascular Exam: REGULAR RHYTHM - GI/Abdominal Exam GI & Abdominal Exam: Normal Bowel Sounds, Soft - Extremities Exam Extremities exam: Positive for: tenderness (R shoulder, R hip, L elbow , L elbow abrasion) Additional comments: R shoulder ROM decreased , R Hip, L heel callus - Back Exam Back exam: tenderness (L-S) - Neurological Exam Neurological exam: Alert, Oriented x3 Additional comments: forgetful AO x 2 , no focal motor sensory/deficit - Psychiatric Exam Psychiatric exam: Anxious, Depressed - Skin Skin Exam: Warm Results - Vital Signs Recent Vital Signs: Last Vital Signs Temp 98.0 F 10/26/16 12:09 Pulse 86 10/26/16 12:09 Resp 20 10/26/16 12:09 BP 125/70 10/26/16 12:09 Pulse Ox 95 10/26/16 12:09 reviewed J.P. - Labs Result Diagrams: 10/26/16 05:20 10/26/16 05:20 Labs: Laboratory Results - last 24 hr 10/26/16 12:20 Total Creatine Kinase 205 H reviewed J.P. - EKG Data EKG comments: reviewed J.P. - Impressions Impression: MRI of Brain, Shoulders Ray reviewed J.P. - Imaging and Cardiology Chest x-ray Status: Report reviewed by me (Roderick) CT scan - chest Status: Report reviewed by me (Roderick) CT scan - head Status: Report reviewed by me (Roderick) Assessment & Plan (1) Near syncope Status: Acute Priority: High (2) Contusion of right shoulder Status: Acute (3) Fracture of rib of right side Status: Acute Priority: High (4) Seizure Status: Chronic Priority: Medium (5) Osteoarthrosis involving multiple sites Status: Chronic Priority: Medium (6) Dyslipidemia Status: Chronic Priority: Medium (7) Chronic back pain Status: Chronic Priority: High (8) Right hip pain Status: Deleted Priority: High - Assessment and Plan (Free Text) Plan: Continue Neurontin, Lamictal, Advair, Percocet and rest of Tx, Podiatry and Neuro consult - Date & Time Date: 10/27/16 Time: 10:20
--- NOTE | 2016-10-26 16:12 | RAD ---
PROCEDURE: Bilateral hips dated 10/25/2016 HISTORY: Status post fall COMPARISON: Comparison made with prior study dated 09/11/2016. . Comparison also made with CT scan of the abdomen and pelvis dated 09/11/2016 which imaged the pelvis and both hips in 3 planes. TECHNIQUE: AP and lateral views of the right and left hips performed. FINDINGS: Current study reveals no evidence of acute displaced fracture nor dislocation. Osseous structures intact. . Mild degenerative changes both hips. Mild diffuse corroboration. IMPRESSION: Current study reveals no evidence of acute displaced fracture nor dislocation. Osseous structures intact. . Mild degenerative changes both hips. Mild diffuse corroboration.
--- NOTE | 2016-10-26 16:48 | CP.PCM.CON ---
History of Present Illness - History of Present Illness History of Present Illness: NEURO CONSULT NOTE: 10/26/16 CHIEF COMPLAINT: NEAR SYNCOPE. HPI: 81 YEAR OLD WOMAN WITH PAST MEDICAL HISTORY OF CHRONIC BACK PAIN, ARTHRITIS , FRACTURE OF L3 VERTEBRAL BOPDY, ANXIETY, HTN, HLD WHO PRESENTS AFTER NEAR SYNCOPAL EPISODE AFTER GETTING OUT OF THE BATHROOM AND FELL TO THE FLOOR WITHOUT ANY LOSS OF CONSCIOUSNESS. SHE'S HAD HISTORY OF SYNCOPAL EPISODES IN THE PAST BUT NO SEIZURE LIKE EPISODES. SHE'S ON CYMBALTA, LAMICTAL, AND GABAPENTIN FOR ANXIETY, CHRONIC PAIN, AND QUESTIONABLE HISTORY OF SEIZURES. 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 NO SEIZURE LIKE EPISODES WHILE IN THE HOSPITAL. SHE'S IN CHRONIC PAIN IN ALL HER JOINTS IN THE BODY. NO FOCAL WEAKNESS IN THE EXTREMITIES, NO CHANGE IN SENSE OF VISION, TASTE, OR SMELL. ROS: 14 POINT REVIEW OF SYMPTOMS IS NEGATIVE PER HPI. ALLERGIES: PENICILLIN SOCIAL HISTORY: NO ILLICIT DRUG USE, SMOKING, OR ETOH USE. FAMILY: NON CONTRIBUTORY. MEDICATIONS: REVIEWED BY NURSE'S RECONCILIATION SHEET. PHYSICAL EXAM: VITAL SIGNS: REVIEWED BY THE CHART GENERAL EXAM: PATIENT SEEN IN BED, IN NO ACUTE DISTRESS HEENT: PERRLA, EOMI, NECK SUPPLE, NO JVD, NO ADENOPATHY CVS: S1, S2, RRR, NO MURMURS NOTED LUNGS: CLEAR TO AUSCULTATION, NO ADVENTITIOUS SOUNDS ABDOMEN: SOFT AND NONTENDER EXTREMITIES: NO CLUBBING OR CYANOSIS. PP 2+ B/L NEURO: PT IS ALERT AND ORIENTED TO PERSON, PLACE, AND YEAR. POOR ATTENTION SPAN , SLOW THOUGHT PROCESS, RECALL TO 5 MINUTES 0/3, SPEECH IS FLUENT WITHOUT ERRORS, CN II-XII INTACT, MOTOR EXAM: NORMAL TONE, NORMAL BULK OF MUSCLE, MOVES ALL EXTREMITIES EQUALLY, NO PRONATOR DRIFT SEEN. SENSORY EXAM: LIGHT TOUCH, PIN PRICK, PROPRIOCEPTION, VIBRATION IS INTACT DEEP TENDON REFLEXES: 2+ THROUGHOUT EXCEPT 1 AT THE ANKLES. COORDINATION: FINGER TO NOSE IS INTACT. HEEL TO GREER IS INTACT GAIT: DEFERRED FOR NOW. LABS: REVIEWED BY THE CHART. ASSESSMENT AND PLAN: 81 YEAR OLD WOMAN WITH PAST MEDICAL HISTORY OF CHRONIC BACK PAIN, ARTHRITIS, FRACTURE OF L3 VERTEBRAL BOPDY, ANXIETY, HTN, HLD WHO PRESENTS AFTER NEAR SYNCOPAL EPISODE AFTER GETTING OUT OF THE BATHROOM AND FELL TO THE FLOOR WITHOUT ANY LOSS OF CONSCIOUSNESS. SHE'S HAD HISTORY OF SYNCOPAL EPISODES IN THE PAST BUT NO SEIZURE LIKE EPISODES. SHE'S ON CYMBALTA, LAMICTAL, AND GABAPENTIN FOR ANXIETY, CHRONIC PAIN, AND QUESTIONABLE HISTORY OF SEIZURES. 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 NO SEIZURE LIKE EPISODES WHILE IN THE HOSPITAL. SHE'S IN CHRONIC PAIN IN ALL HER JOINTS IN THE BODY. NEAR SYNCOPE EPISODE IS LIKELY SECONDARY TO TRANSIENT CEREBRAL HYPOPERFUSION AND NEAR VASOVAGAL COMPONENT SUPERIMPOSED UNDERLYING DECONDITIONED STATE. THIS IS NOT A SEIZURE EPISODE. PLAN: 1. CONTINUE WITH CURRENT DOSES OF CYMBALTA, LAMICTAL, AND GABAPENTIN 2. ASA 81 MG FOR STROKE PREVENTION 3. MONITOR ELECTROLYTES AND CORRECT ACCORDINGLY. 4. PHYSICAL THERAPY EVALUATION FOR DECONDITIONED STATE. THANK YOU PLEASE RECONSULT NECESSARY. Fer WARNER MD Past Patient History - Infectious Disease Hx of Infectious Diseases: None - Past Medical History & Family History Past Medical History?: Yes - Past Social History Smoking Status: Never Smoked - CARDIAC Hx Cardiac Disorders: Yes - PULMONARY Hx Respiratory Disorders: Yes - NEUROLOGICAL Hx Neurological Disorder: Yes - HEENT Hx HEENT Problems: Yes - RENAL Hx Chronic Kidney Disease: No - ENDOCRINE/METABOLIC Hx Endocrine Disorders: No - HEMATOLOGICAL/ONCOLOGICAL Hx AIDS: No Hx Blood Transfusions: No Hx Human Immunodeficiency Virus (HIV): No - INTEGUMENTARY Hx Dermatological Problems: No - MUSCULOSKELETAL/RHEUMATOLOGICAL Hx Arthritis: Yes Hx Falls: Yes Hx Fractures: Yes (L wrist) - GASTROINTESTINAL Hx Gastrointestinal Disorders: Yes Hx Constipation: Yes - GENITOURINARY/GYNECOLOGICAL Hx Incontinence: Yes - PSYCHIATRIC Hx Anxiety: Yes Hx Depression: Yes Hx Substance Use: No - SURGICAL HISTORY Hx Surgeries: Yes Hx Tubal Ligation: Yes - ANESTHESIA Hx Anesthesia: Yes Hx Anesthesia Reactions: No Meds Allergies/Adverse Reactions: Allergies Allergy/AdvReac Type Severity Reaction Status Date / Time Penicillins Allergy RASH Verified 10/25/16 14:55 - Medications Medications: Current Medications Duloxetine HCl (Cymbalta) 20 mg PO DAILY [facility] Last Admin: 10/26/16 12:44 Dose: 20 mg Gabapentin (Neurontin) 100 mg PO TID [facility] Last Admin: 10/26/16 12:46 Dose: 100 mg Sodium Chloride (Sodium Chloride 0.9%) 1,000 mls @ 50 mls/hr IV .Q20H [facility] Stop: 10/26/16 21:48 Last Admin: 10/25/16 22:57 Dose: 50 mls/hr Sodium Chloride (Sodium Chloride 0.9%) 1,000 mls @ 50 mls/hr IV .Q20H [facility] Stop: 10/27/16 13:06 Lamotrigine (Lamictal) 25 mg PO TID [facility] Last Admin: 10/26/16 12:45 Dose: 25 mg Loratadine (Claritin) 10 mg PO DAILY [facility] Last Admin: 10/26/16 12:44 Dose: 10 mg Meclizine HCl (Antivert) 12.5 mg PO TID PRN PRN Reason: Dizziness Oxybutynin Chloride (Ditropan Tab) 5 mg PO TID [facility] Last Admin: 10/26/16 12:45 Dose: 5 mg Oxycodone/Acetaminophen (Percocet 5/325 Mg Tab) 1 tab PO Q4 PRN PRN Reason: Pain, moderate (4-7) Stop: 10/28/16 21:40 Last Admin: 10/26/16 04:44 Dose: 1 tab Fluticasone/Salmeterol (Advair Diskus 500/50) 1 puff IH Q12 [facility] Last Admin: 10/26/16 12:43 Dose: 1 puff Results - Vital Signs Recent Vital Signs: Last Vital Signs Temp 98.7 F 10/26/16 16:00 Pulse 92 H 10/26/16 16:00 Resp 20 10/26/16 16:00 BP 123/68 10/26/16 16:00 Pulse Ox 94 L 10/26/16 16:00 - Labs Result Diagrams: 10/26/16 05:20 10/26/16 05:20 Labs: Laboratory Results - last 24 hr 10/26/16 12:20 Total Creatine Kinase 205 H
--- NOTE | 2016-10-26 16:58 | RAD ---
PROCEDURE: Radiographs of the pelvis. HISTORY: Fall COMPARISON: Bilateral hip with pelvis radiograph performed 10/25/16 FINDINGS: BONES: Diffuse osseous demineralization limits evaluation for acute fracture lines. Irregularity involving the inferior left pubic ramus appears chronic. No acute displaced fracture identified. Severe degenerative changes of the included lower lumbar spine. JOINTS: Orthogonal views were not provided however no evidence to suggest dislocation. OTHER FINDINGS: No significant joint effusion appreciated. Soft tissues appear unremarkable. No evidence of radiopaque foreign body. IMPRESSION: Diffuse osseous demineralization limits evaluation for acute fracture lines. Irregularity of the inferior left pubic ramus favored to represent remote fracture deformity. Correlate clinically. No acute displaced fracture or dislocation identified. If high clinical index of suspicion for acute fracture, suggest further evaluation with MRI. Study has been marked for PA review.
[2016-10-26] MEDS: Sodium Chloride 0.9% 1,000 ML IV SCH (17:11)
[2016-10-27] MEDS: Oxycodone/Acetaminophen 5/325 mg Tab PO PRN ×3 (06:24→20:47)
[2016-10-27] MEDS: Fluticasone-Salmeterol 500-50mcg Diskus IH SCH ×2 (09:34→20:43)
--- NOTE | 2016-10-27 11:51 | CARD ---
APPROVED REPORT EXAM: Two-dimensional and M-mode echocardiogram with Doppler and color Doppler. Other Information Quality : GoodRhythm : NSR INDICATION Syncope 2D DIMENSIONS IVSd1.35 (0.7-1.1cm)LVDd3.89 (3.9-5.9cm) LVOT Diameter1.51 (1.8-2.4cm)PWd1.28 (0.7-1.1cm) IVSs1.46 (0.8-1.2cm)LVDs3.42 (2.5-4.0cm) FS (%) 12.2 %PWs1.18 (0.8-1.2cm) M-Mode DIMENSIONS Left Atrium (MM)3.38 (2.5-4.0cm)IVSd1.29 (0.7-1.1cm) Aortic Root2.71 (2.2-3.7cm)LVDd4.56 (4.0-5.6cm) Aortic Cusp Exc.1.62 (1.5-2.0cm)PWd1.24 (0.7-1.1cm) IVSs1.56 cmFS (%) 48 % LVDs2.38 (2.0-3.8cm)PWs1.88 cm Mitral Valve MV E Ceetccol11.4cm/sMV DECEL [id number] A Yuxejjjf839.9cm/s MV UST67oaH/A ratio0.5MVA (PHT)2.77cm2 TDI Lateral E' Peak V7.41cm/sMedial E' Peak V6.52cm/sE/Lateral E'9.6 E/Medial E'11.0 Tricuspid Valve TR Peak Ywtvwtda389ib/sRAP [id number] Peak Gr.25mmHg IRVX24pdSd LEFT VENTRICLE The left ventricle is normal size. There is mild concentric left ventricular hypertrophy. The left ventricular function is normal. The left ventricular ejection fraction is 65-70% There is normal LV segmental wall motion. Transmitral Doppler flow pattern is Grade I-abnormal relaxation pattern. No left ventricle thrombus noted on this study. There is no ventricular septal defect visualized. There is no left ventricular aneurysm. There is no mass noted in the left ventricle. RIGHT VENTRICLE The right ventricle is normal size. There is normal right ventricular wall thickness. The right ventricular systolic function is normal. ATRIA The left atrium size is normal. The right atrium size is normal. The interatrial septum is intact with no evidence for an atrial septal defect. AORTIC VALVE The aortic valve is normal in structure and function. No aortic regurgitation is present. There is no aortic valvular stenosis. There is no aortic valvular vegetation. MITRAL VALVE The mitral valve is normal in structure and function. There is no evidence of mitral valve prolapse. There is no mitral valve stenosis. There is no mitral valve regurgitation noted. TRICUSPID VALVE The tricuspid valve is normal in structure and function. There is mild tricuspid regurgitation. Right ventricular systolic pressure is estimated at 30-40 mmHg. There is no tricuspid valve prolapse or vegetation. There is no tricuspid valve stenosis. PULMONIC VALVE The pulmonary valve is normal in structure and function. There is no pulmonic valvular regurgitation. There is no pulmonic valvular stenosis. GREAT VESSELS The aortic root is normal in size. The ascending aorta is normal in size. The IVC is normal in size and collapses >50% with inspiration. PERICARDIAL EFFUSION The pericardium appears normal. There is no pleural effusion. <Conclusion> Normal LV Systolic Function Concentric LVH
--- NOTE | 2016-10-27 12:59 | CP.PCM.CON ---
History of Present Illness - History of Present Illness History of Present Illness: 81 year old female patient with PMHx of arthritis, HTN, HLD, anxiety admitted for syncopal episode seen at bedside sleeping, consulted podiatry for elongated nails. Patient was frightened/anxious upon arrival, but returned to a pleasant disposition upon arousal from sleep. Patient is complaining of generalized pain throughout her body secondary to arthritis. Patient is also complaining of painful calluses to both feet and elongated nails. Patient is wearing an antiembolism stocking on her RLE. Patient denies N/V/F/D/C/SOB. No other pedal complaints at this time. Review of Systems - Review of Systems Review of Systems: 14 point ROS is negative except for HPI Past Patient History - Infectious Disease Hx of Infectious Diseases: None - Past Medical History & Family History Past Medical History?: Yes - Past Social History Smoking Status: Never Smoked - CARDIAC Hx Cardiac Disorders: Yes - PULMONARY Hx Respiratory Disorders: Yes - NEUROLOGICAL Hx Neurological Disorder: Yes - HEENT Hx HEENT Problems: Yes - RENAL Hx Chronic Kidney Disease: No - ENDOCRINE/METABOLIC Hx Endocrine Disorders: No - HEMATOLOGICAL/ONCOLOGICAL Hx AIDS: No Hx Blood Transfusions: No Hx Human Immunodeficiency Virus (HIV): No - INTEGUMENTARY Hx Dermatological Problems: No - MUSCULOSKELETAL/RHEUMATOLOGICAL Hx Arthritis: Yes Hx Falls: Yes Hx Fractures: Yes (L wrist) - GASTROINTESTINAL Hx Gastrointestinal Disorders: Yes Hx Constipation: Yes - GENITOURINARY/GYNECOLOGICAL Hx Incontinence: Yes - PSYCHIATRIC Hx Anxiety: Yes Hx Depression: Yes Hx Substance Use: No - SURGICAL HISTORY Hx Surgeries: Yes Hx Tubal Ligation: Yes - ANESTHESIA Hx Anesthesia: Yes Hx Anesthesia Reactions: No Meds Allergies/Adverse Reactions: Allergies Allergy/AdvReac Type Severity Reaction Status Date / Time Penicillins Allergy RASH Verified 10/25/16 14:55 - Medications Medications: Current Medications Aspirin (Aspirin Chewable) 81 mg PO DAILY [facility] Last Admin: 10/27/16 12:16 Dose: 81 mg Duloxetine HCl (Cymbalta) 20 mg PO DAILY [facility] Last Admin: 10/27/16 09:35 Dose: 20 mg Gabapentin (Neurontin) 100 mg PO TID [facility] Last Admin: 10/27/16 09:35 Dose: 100 mg Sodium Chloride (Sodium Chloride 0.9%) 1,000 mls @ 50 mls/hr IV .Q20H [facility] Stop: 10/27/16 13:06 Last Admin: 10/27/16 10:00 Dose: 50 mls/hr Lamotrigine (Lamictal) 25 mg PO TID [facility] Last Admin: 10/27/16 12:12 Dose: 25 mg Loratadine (Claritin) 10 mg PO DAILY [facility] Last Admin: 10/27/16 09:34 Dose: 10 mg Meclizine HCl (Antivert) 12.5 mg PO TID PRN PRN Reason: Dizziness Mupirocin (Bactroban Cream) 1 applic TOP BID [facility] Oxybutynin Chloride (Ditropan Tab) 5 mg PO TID [facility] Last Admin: 10/27/16 12:12 Dose: 5 mg Oxycodone/Acetaminophen (Percocet 5/325 Mg Tab) 1 tab PO Q4 PRN PRN Reason: Pain, moderate (4-7) Stop: 10/28/16 21:40 Last Admin: 10/27/16 12:16 Dose: 1 tab Fluticasone/Salmeterol (Advair Diskus 500/50) 1 puff IH Q12 [facility] Last Admin: 10/27/16 09:34 Dose: 1 puff Physical Exam - Constitutional Appears: Well, Non-toxic, No Acute Distress - Extremities Exam Additional comments: Vasc: DP pulses palpable 2/4 b/l. PT pulses palpable 1/4 b/l. CFT <3 seconds to digits x10. No edema noted. No erythema noted. Neuro: Gross sensation intact. Derm: Nails 1-5 b/l appear elongated and thickened. Hyperkeratotic lesions noted to posterosuperolateral calcaneus of left foot, sub met 5 right foot. No open lesions, rashes, or subcutaneous nodules noted. Ortho: Pain on palpation noted to hyperkeratotic lesions x2 - Neurological Exam Neurological exam: Alert, Oriented x3 - Psychiatric Exam Psychiatric exam: Anxious, Normal Mood Results - Vital Signs Recent Vital Signs: Last Vital Signs Temp 98.5 F 10/27/16 12:13 Pulse 87 10/27/16 12:13 Resp 20 10/27/16 12:13 BP 120/66 10/27/16 12:13 Pulse Ox 96 10/27/16 12:13 - Labs Result Diagrams: 10/26/16 05:20 10/26/16 05:20 Assessment & Plan - Assessment and Plan (Free Text) Assessment: 81 year old female with PMHx arthritis, anxiety, and syncope seen for elongated , dystrophic nails and painful hyperkeratoses. Plan: Patient seen and evaluated at bedside. Discussed with attending, Dr. Claudio. Charts, labs, vitals reviewed Nails 1-5 b/l debrided without incident. Hyperkeratotic lesions x2 sharply pared without incident. Attempted to re-don stockings to right lower extremity but patient adamantly refused. Stable from podiatry standpoint. Thank you for the consult, please re-consult as needed. Podiatry will sign off on this patient.
--- NOTE | 2016-10-27 14:39 | CP.PCM.PN ---
Objective - Vital Signs/Intake and Output Vital Signs (last 24 hours): Temp Pulse Resp BP Pulse Ox 98.5 F 87 20 120/66 96 10/27/16 12:13 10/27/16 12:13 10/27/16 12:13 10/27/16 12:13 10/27/16 12:13 Intake and Output: 10/27/16 10/27/16 06:59 18:59 Intake Total 620 Output Total 450 Balance 170 - Medications Medications: Current Medications Aspirin (Aspirin Chewable) 81 mg PO DAILY [facility] Last Admin: 10/27/16 12:16 Dose: 81 mg Duloxetine HCl (Cymbalta) 20 mg PO DAILY [facility] Last Admin: 10/27/16 09:35 Dose: 20 mg Gabapentin (Neurontin) 100 mg PO TID [facility] Last Admin: 10/27/16 09:35 Dose: 100 mg Lamotrigine (Lamictal) 25 mg PO TID [facility] Last Admin: 10/27/16 12:12 Dose: 25 mg Loratadine (Claritin) 10 mg PO DAILY [facility] Last Admin: 10/27/16 09:34 Dose: 10 mg Meclizine HCl (Antivert) 12.5 mg PO TID PRN PRN Reason: Dizziness Mupirocin (Bactroban Ointment) 1 applic TOP BID [facility] Mupirocin (Bactroban Ointment) 1 applic TOP BID [facility] Oxybutynin Chloride (Ditropan Tab) 5 mg PO TID [facility] Last Admin: 10/27/16 12:12 Dose: 5 mg Oxycodone/Acetaminophen (Percocet 5/325 Mg Tab) 1 tab PO Q4 PRN PRN Reason: Pain, moderate (4-7) Stop: 10/28/16 21:40 Last Admin: 10/27/16 12:16 Dose: 1 tab Fluticasone/Salmeterol (Advair Diskus 500/50) 1 puff IH Q12 [facility] Last Admin: 10/27/16 09:34 Dose: 1 puff - Labs Labs: PT 14.0 Seconds (9.8-13.1) H 10/25/16 17:27 INR 1.2 (0.9-1.2) 10/25/16 17:27 APTT 28.2 Seconds (25.6-37.1) 10/25/16 17:27
--- NOTE | 2016-10-27 16:11 | CP.PCM.PN ---
Subjective - Date & Time of Evaluation Date of Evaluation: 10/27/16 Time of Evaluation: 10:20 - Subjective Subjective: F/U S/P fall, Near Syncope. Pt c/o of pain in R shoulder, R chest wall with decreased ROM, unable to lift the RUE Objective - Vital Signs/Intake and Output Vital Signs (last 24 hours): Temp Pulse Resp BP Pulse Ox 98.6 F 93 H 18 121/69 99 10/27/16 15:44 10/27/16 15:44 10/27/16 15:44 10/27/16 15:44 10/27/16 15:44 Intake and Output: 10/27/16 10/27/16 06:59 18:59 Intake Total 620 Output Total 450 Balance 170 - Medications Medications: Current Medications Aspirin (Aspirin Chewable) 81 mg PO DAILY [facility] Last Admin: 10/27/16 12:16 Dose: 81 mg Duloxetine HCl (Cymbalta) 20 mg PO DAILY [facility] Last Admin: 10/27/16 09:35 Dose: 20 mg Gabapentin (Neurontin) 100 mg PO TID [facility] Last Admin: 10/27/16 14:00 Dose: Not Given Lamotrigine (Lamictal) 25 mg PO TID [facility] Last Admin: 10/27/16 12:12 Dose: 25 mg Loratadine (Claritin) 10 mg PO DAILY [facility] Last Admin: 10/27/16 09:34 Dose: 10 mg Meclizine HCl (Antivert) 12.5 mg PO TID PRN PRN Reason: Dizziness Mupirocin (Bactroban Ointment) 1 applic TOP BID [facility] Mupirocin (Bactroban Ointment) 1 applic TOP BID [facility] Oxybutynin Chloride (Ditropan Tab) 5 mg PO TID [facility] Last Admin: 10/27/16 12:12 Dose: 5 mg Oxycodone/Acetaminophen (Percocet 5/325 Mg Tab) 1 tab PO Q4 PRN PRN Reason: Pain, moderate (4-7) Stop: 10/28/16 21:40 Last Admin: 10/27/16 12:16 Dose: 1 tab Fluticasone/Salmeterol (Advair Diskus 500/50) 1 puff IH Q12 [facility] Last Admin: 10/27/16 09:34 Dose: 1 puff - Labs Labs: PT 14.0 Seconds (9.8-13.1) H 10/25/16 17:27 INR 1.2 (0.9-1.2) 10/25/16 17:27 APTT 28.2 Seconds (25.6-37.1) 10/25/16 17:27 - Constitutional Appears: No Acute Distress, Chronically Ill - Head Exam Head Exam: NORMAL INSPECTION - Eye Exam Eye Exam: PERRL - ENT Exam Additional comments: Hard of hearing L ear. - Neck Exam Neck Exam: Normal Inspection - Respiratory Exam Respiratory Exam: Chest Wall Tenderness (R), NORMAL BREATHING PATTERN Additional comments: Chest ecchymosis. - Cardiovascular Exam Cardiovascular Exam: REGULAR RHYTHM - GI/Abdominal Exam GI & Abdominal Exam: Soft, Normal Bowel Sounds - Extremities Exam Extremities Exam: Tenderness (R shoulder, R hip, L elbow) - Back Exam Back Exam: tenderness (L-S) - Neurological Exam Neurological Exam: Alert, Oriented x3 Additional comments: Forgetful x 2, no focal motor sensory /deficit. - Psychiatric Exam Psychiatric exam: Anxious, Depressed - Skin Skin Exam: Abrasion (L elbow), Warm Assessment and Plan (1) Contusion of right shoulder Status: Acute (2) Fracture of rib of right side Status: Acute (3) Near syncope Status: Acute (4) Chronic back pain Status: Chronic (5) Seizure Status: Chronic (6) Contusion of rib on right side Status: Acute (7) Dyslipidemia Status: Chronic (8) Osteoarthrosis involving multiple sites Status: Chronic (9) Generalized weakness Status: Acute - Assessment and Plan (Free Text) Plan: Continue current Tx, Grain Receiver consult.
--- NOTE | 2016-10-27 17:22 | CP.PCM.PN ---
Subjective - Date & Time of Evaluation Date of Evaluation: 10/27/16 Time of Evaluation: 15:00 - Subjective Subjective: EEG REPORT: CONDITION OF THIS RECORDING: DROWSY DIAGNOSIS: SYNCOPE MEDICATIONS:l REVIEWED BY NURSE'S RECONCILIATION INTERPRETATION: THIS IS A 16 CHANNEL INTERNATIONAL RECORDING. THE BACKEND OF THIS TRACING WAS COMPOSED OF 6-7 CYCLES PER SECOND. THERE WAS SMALL AMOUNT OF BETA ACTIVITY OF 16-20 CPS IN THE RECORDING AND INCREASE AMOUNT OF THETA ACTIVITY OF 5-7 CPS SEEN IN THIS TRACING. DROWSINESS WAS CHARACTERIZED BY MIXED BETA AND THETA ACTIVITIES. SLEEP WAS CHARACTERIZED BY VERTEX TRANSIENT WAVE, SLEEP SPINDLES, AND B/L SLOWING. PHOTIC STIMULATION SHOWED NO CHANGE IN THE TRACING. NO PAROXYSMAL ACTIVITY NOTED IN THIS RECORDING. EMG ARTIFICAT WAS SEEN. CONCLUSION: THIS IS AN ABNORMAL EEG SHOWING MILD B/L SLOWING THROUGHOUT THE RECORDING CONSISTENT WITH MILD B/L CEREBRAL DYSFUNCTION. NO SEIZURE ACTIVITY. Fer WARNER MD Objective - Vital Signs/Intake and Output Vital Signs (last 24 hours): Temp Pulse Resp BP Pulse Ox 98.6 F 93 H 18 121/69 99 10/27/16 15:44 10/27/16 15:44 10/27/16 15:44 10/27/16 15:44 10/27/16 15:44 Intake and Output: 10/27/16 10/27/16 06:59 18:59 Intake Total 620 Output Total 450 Balance 170 - Medications Medications: Current Medications Aspirin (Aspirin Chewable) 81 mg PO DAILY [facility] Last Admin: 10/27/16 12:16 Dose: 81 mg Duloxetine HCl (Cymbalta) 20 mg PO DAILY [facility] Last Admin: 10/27/16 09:35 Dose: 20 mg Gabapentin (Neurontin) 100 mg PO TID [facility] Last Admin: 10/27/16 16:14 Dose: 100 mg Lamotrigine (Lamictal) 25 mg PO TID [facility] Last Admin: 10/27/16 16:14 Dose: 25 mg Loratadine (Claritin) 10 mg PO DAILY [facility] Last Admin: 10/27/16 09:34 Dose: 10 mg Meclizine HCl (Antivert) 12.5 mg PO TID PRN PRN Reason: Dizziness Mupirocin (Bactroban Ointment) 1 applic TOP BID [facility] Last Admin: 10/27/16 16:13 Dose: 1 applic Oxybutynin Chloride (Ditropan Tab) 5 mg PO TID [facility] Last Admin: 10/27/16 16:14 Dose: 5 mg Oxycodone/Acetaminophen (Percocet 5/325 Mg Tab) 1 tab PO Q4 PRN PRN Reason: Pain, moderate (4-7) Stop: 10/28/16 21:40 Last Admin: 10/27/16 12:16 Dose: 1 tab Fluticasone/Salmeterol (Advair Diskus 500/50) 1 puff IH Q12 [facility] Last Admin: 10/27/16 09:34 Dose: 1 puff - Labs Labs: PT 14.0 Seconds (9.8-13.1) H 10/25/16 17:27 INR 1.2 (0.9-1.2) 10/25/16 17:27 APTT 28.2 Seconds (25.6-37.1) 10/25/16 17:27
[2016-10-28] MEDS: Oxycodone/Acetaminophen 5/325 mg Tab PO PRN ×3 (06:19→18:26)
[2016-10-28] MEDS: Fluticasone-Salmeterol 500-50mcg Diskus IH SCH ×2 (08:43→21:28)
--- NOTE | 2016-10-28 10:18 | PQF GENQUE ---
This form is a permanent part of the medical record 10/28/16 Dr. Lara, Please clarify the possible etiology of the syncope if known. S/P fall after feeling dizzy. CT head: Nonspecific white matter changes, generalized atrophy. MRI Brain: No acute intracranial hemorrhage or infarct. 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 THIS IS NOT A SEIZURE EPISODE. Clarification of your documentation is requested to better reflect the severity of illness and intensity of treatment of your patient. Indicators present [] Specify: [] [] Specify: [] [] Specify: [] [] Specify: [] Location in the medical record that reflects the above clinical findings: [] Treatment Provided: [] PHYSICIAN'S RESPONSE Based on your medical judgment of the clinical indicators outlined above please clarify the following: [] Practitioner response [] If unable to determine, please check the box, sign and date. Present On Admission (POA) Indicator: [] Present at the time of admission [] Not present at the time of admission [] Clinically Undetermined In responding to this query, please exercise your independent professional judgment. The fact that a question is asked does not imply that any particular answer is desired or expected. Thank you for your clarification on this documentation. If you have any questions please call:extension [phone] * Thank you, Meagan Gurrola [facility]
--- NOTE | 2016-10-28 17:57 | CP.PCM.PN ---
Subjective - Date & Time of Evaluation Date of Evaluation: 10/28/16 Time of Evaluation: 13:30 - Subjective Subjective: F/U Near Syncope. Pt c/o of pain in R shoulder, R chest wall. Objective - Vital Signs/Intake and Output Vital Signs (last 24 hours): Temp Pulse Resp BP Pulse Ox 98.1 F 76 18 142/78 96 10/28/16 15:36 10/28/16 15:36 10/28/16 17:33 10/28/16 15:36 10/28/16 17:33 Intake and Output: 10/28/16 10/28/16 06:59 18:59 Intake Total 980 900 Output Total 1500 Balance 980 -600 - Medications Medications: Current Medications Aspirin (Aspirin Chewable) 81 mg PO DAILY [facility] Last Admin: 10/28/16 08:43 Dose: 81 mg Duloxetine HCl (Cymbalta) 20 mg PO DAILY [facility] Last Admin: 10/28/16 08:43 Dose: 20 mg Gabapentin (Neurontin) 100 mg PO TID [facility] Last Admin: 10/28/16 16:26 Dose: 100 mg Lamotrigine (Lamictal) 25 mg PO TID [facility] Last Admin: 10/28/16 16:25 Dose: 25 mg Loratadine (Claritin) 10 mg PO DAILY [facility] Last Admin: 10/28/16 08:43 Dose: 10 mg Meclizine HCl (Antivert) 12.5 mg PO TID PRN PRN Reason: Dizziness Mupirocin (Bactroban Ointment) 1 applic TOP BID [facility] Last Admin: 10/28/16 16:25 Dose: 1 applic Oxybutynin Chloride (Ditropan Tab) 5 mg PO TID [facility] Last Admin: 10/28/16 16:25 Dose: 5 mg Oxycodone/Acetaminophen (Percocet 5/325 Mg Tab) 1 tab PO Q4 PRN PRN Reason: Pain, moderate (4-7) Stop: 10/28/16 21:40 Last Admin: 10/28/16 10:38 Dose: 1 tab Fluticasone/Salmeterol (Advair Diskus 500/50) 1 puff IH Q12 [facility] Last Admin: 10/28/16 08:43 Dose: 1 puff - Labs Labs: PT 14.0 Seconds (9.8-13.1) H 10/25/16 17:27 INR 1.2 (0.9-1.2) 10/25/16 17:27 APTT 28.2 Seconds (25.6-37.1) 10/25/16 17:27 - Constitutional Appears: No Acute Distress, Chronically Ill - Head Exam Head Exam: NORMAL INSPECTION - Eye Exam Eye Exam: PERRL - ENT Exam Additional comments: Hard of hearing L ear - Neck Exam Neck Exam: Normal Inspection - Respiratory Exam Respiratory Exam: Chest Wall Tenderness (Right), NORMAL BREATHING PATTERN Additional comments: Chest Ecchymosis - Cardiovascular Exam Cardiovascular Exam: REGULAR RHYTHM - GI/Abdominal Exam GI & Abdominal Exam: Soft, Normal Bowel Sounds - Extremities Exam Extremities Exam: Tenderness (R shouder, R hip, L elbow.) Additional comments: R shoulder decreased ROM, R hip. L heel callus, Atrophic nails. - Back Exam Back Exam: tenderness (L-S) - Neurological Exam Neurological Exam: Alert, Oriented x3 Additional comments: Forgetful, A O x2, no focal motor/sensory deficit. - Psychiatric Exam Psychiatric exam: Anxious, Depressed - Skin Skin Exam: Abrasion (L elbow.), Warm Assessment and Plan (1) Near syncope Status: Acute (2) Fracture of rib of right side Status: Acute (3) Contusion of right shoulder Status: Acute (4) Right hip pain Status: Deleted (5) Chronic back pain Status: Chronic (6) Seizure Status: Chronic (7) Dyslipidemia Status: Chronic (8) Osteoarthrosis involving multiple sites Status: Chronic (9) Generalized weakness Status: Acute - Assessment and Plan (Free Text) Plan: Continue Meclizine, Percocet and rest of Tx. Podiatry consult appreciated.
[2016-10-29 08:10] VITALS: RESP 20
[2016-10-29] MEDS: Fluticasone-Salmeterol 500-50mcg Diskus IH SCH (09:00)
[2016-10-29 12:20] VITALS: BP 126/73; PULSE 96; TEMP 98.5
[2016-10-29] MEDS ORDERED: Oxycodone/Acetaminophen 5/325 mg Tab PO PRN (14:21)
--- NOTE | 2016-10-29 15:31 | CP.PCM.PN ---
Subjective - Date & Time of Evaluation Date of Evaluation: 10/29/16 Objective - Vital Signs/Intake and Output Vital Signs (last 24 hours): Temp Pulse Resp BP Pulse Ox 98.5 F 96 H 20 126/73 96 10/29/16 12:19 10/29/16 12:19 10/29/16 12:19 10/29/16 12:19 10/29/16 12:19 - Labs Labs: PT 14.0 Seconds (9.8-13.1) H 10/25/16 17:27 INR 1.2 (0.9-1.2) 10/25/16 17:27 APTT 28.2 Seconds (25.6-37.1) 10/25/16 17:27 Assessment and Plan (1) Near syncope Status: Acute (2) Right hip pain Status: Acute (3) Right shoulder pain Status: Acute (4) Chronic back pain Status: Chronic (5) Seizure Status: Chronic (6) Contusion of rib on right side Status: Acute (7) Dyslipidemia Status: Chronic (8) Osteoarthrosis involving multiple sites Status: Chronic
[2016-11-03 15:48] VITALS: O2SAT 98
--- NOTE | 2016-11-15 16:07 | CP.PCM.DIS ---
Provider - Provider Date of Admission: 10/26/16 10:49 Attending physician: Sj Lara MD Consults: Nuerology and Podiatry. Time Spent in preparation of Discharge (in minutes): 25 Diagnosis - Discharge Diagnosis (1) Near syncope Status: Acute Priority: High (2) Fracture of rib of right side Status: Acute (3) Contusion of right shoulder Status: Acute (4) Right hip pain Status: Deleted Priority: High (5) Chronic back pain Status: Chronic Priority: High (6) Seizure Status: Chronic Priority: Medium (7) Dyslipidemia Status: Chronic Priority: Medium (8) Osteoarthrosis involving multiple sites Status: Chronic Priority: Medium (9) Generalized weakness Status: Acute Hospital Course - Lab Results Lab Results: Most Recent Lab Values WBC 6.4 K/uL (4.8-10.8) 10/26/16 05:20 RBC 4.76 Mil/uL (3.80-5.20) 10/26/16 05:20 Hgb 13.5 g/dL (12.0-16.0) 10/26/16 05:20 Hct 41.3 % (34.0-47.0) 10/26/16 05:20 MCV 86.8 fl (81.0-99.0) 10/26/16 05:20 MCH 28.4 pg (27.0-31.0) 10/26/16 05:20 MCHC 32.8 g/dL (33.0-37.0) L 10/26/16 05:20 RDW 13.9 % (11.5-14.5) 10/26/16 05:20 Plt Count 93 K/uL (130-400) L 10/26/16 05:20 MPV 9.7 fl (7.2-11.7) 10/25/16 17: Neut % (Auto) 80.9 % (50.0-75.0) H 10/25/16 17: Lymph % (Auto) 9.7 % (20.0-40.0) L 10/25/16 17:27 [place] % (Auto) 8.7 % (0.0-10.0) 10/25/16 17: Eos % (Auto) 0.3 % (0.0-4.0) 10/25/16 17:27 Baso % (Auto) 0.4 % (0.0-2.0) 10/25/16 17: Neut # 8.1 K/uL (1.8-7.0) H 10/25/16 17: Lymph # 1.0 K/uL (1.0-4.3) 10/25/16 17: [place] # 0.9 K/uL (0.0-0.8) H 10/25/16 17: Eos # 0.0 K/uL (0.0-0.7) 10/25/16 17: Baso # 0.0 K/uL (0.0-0.2) 10/25/16 17: Neutrophils % (Manual) 81 % (42-75) H 10/25/16 17: Lymphocytes % (Manual) 12 % (20-50) L 10/25/16 17: Reactive Lymphs % 1 % (0-0) H 10/25/16 17: Monocytes % (Manual) 6 % (0-10) 10/25/16 17: Platelet Estimate Decreased (NORMAL) L 10/25/16 17: Giant Platelets Present 10/25/16 17:27 Macrocytosis (manual) Slight 10/25/16 17: PT 14.0 Seconds (9.8-13.1) H 10/25/16 17: INR 1.2 (0.9-1.2) 10/25/16 17: APTT 28.2 Seconds (25.6-37.1) 10/25/16 17: Sodium 139 mmol/l (132-148) 10/26/16 05:20 Potassium 3.5 MMOL/L (3.6-5.0) L 10/26/16 05:20 Chloride 103 mmol/L (98-107) 10/26/16 05:20 Carbon Dioxide 28 mmol/L (22-30) 10/26/16 05:20 Anion Gap 12 (10-20) 10/26/16 05:20 BUN 10 mg/dl (7-17) 10/26/16 05:20 Creatinine 0.5 mg/dL (0.7-1.2) L 10/26/16 05:20 Est GFR ( Amer) > 60 10/26/16 05:20 Est GFR (Non-Af Amer) > 60 10/26/16 05:20 Random Glucose 100 mg/dL (65-105) 10/26/16 05:20 Calcium 8.6 mg/dL (8.4-10.2) 10/26/16 05:20 Total Bilirubin 2.2 mg/dl (0.2-1.3) H 10/26/16 05:20 AST 38 U/L (14-36) H D 10/26/16 05:20 ALT 40 U/L (9-52) 10/26/16 05:20 Alkaline Phosphatase 52 U/L (38-126) 10/26/16 05:20 Total Creatine Kinase 205 U/L (30-135) H 10/26/16 12:20 Troponin I 0.0150 ng/mL (0.00-0.120) 10/25/16 15:40 Total Protein 6.6 G/DL (6.3-8.2) 10/26/16 05:20 Albumin 3.7 g/dL (3.5-5.0) 10/26/16 05:20 Globulin 2.9 gm/dL (2.2-3.9) 10/26/16 05:20 Albumin/Globulin Ratio 1.2 (1.0-2.1) 10/26/16 05:20 Triglycerides 50 mg/DL (0-149) D 10/26/16 05:20 Cholesterol 134 mg/dL (0-199) 10/26/16 05:20 LDL Cholesterol Direct 54 mg/dL (0-129) 10/26/16 05:20 HDL Cholesterol 59 MG/DL (30-70) 10/26/16 05:20 Thyroxine (T4) 6.84 ug/dl (5.5-11.0) 10/26/16 05:20 TSH 3rd Generation 1.83 mIU/ML (0.46-4.68) 10/26/16 05:20 Urine Color Yellow (YELLOW) 10/26/16 04:00 Urine Clarity Slighty-cloudy (Clear) 10/26/16 04:00 Urine pH 5.0 (5.0-8.0) 10/26/16 04:00 Ur Specific [place] 1.014 (1.003-1.030) 10/26/16 04:00 Urine Protein Negative mg/dL (NEGATIVE) 10/26/16 04:00 Urine Glucose (UA) Neg mg/dL (Normal) 10/26/16 04:00 Urine Ketones 80 mg/dL (NEGATIVE) 10/26/16 04:00 Urine Blood Negative (NEGATIVE) 10/26/16 04:00 Urine Nitrate Negative (NEGATIVE) 10/26/16 04:00 Urine Bilirubin Negative (NEGATIVE) 10/26/16 04:00 Urine Urobilinogen 0.2-1.0 mg/dL (0.2-1.0) 10/26/16 04:00 Ur Leukocyte Esterase Neg Suhas/uL (Negative) 10/26/16 04:00 Urine RBC (Auto) < 1 /hpf (0-3) 10/26/16 04:00 Urine Microscopic WBC 7 /hpf (0-5) H 10/26/16 04:00 Ur Squamous Epith Cells 7 /hpf (0-5) H 10/26/16 04:00 Urine Bacteria Rare (<OCC) 10/26/16 04:00 - Date & Time of H&P Date of H&P: 10/26/16 Time of H&P: 11:10 Discharge Exam - Head Exam Head Exam: NORMAL INSPECTION Discharge Plan - Follow Up Plan Condition: STABLE Disposition: TRANSF TO SNF Instructions: Syncope (DC)
== END 2016-10-29 14:40 | DRG 312 ==
LOC: H.ER 14:50 → H.ERHOLD 18:30 → H.TEL 20:53 → OBSVTOIN 10-26 10:49
PROVIDERS: ADMIT Internal Medicine Pulmonary Disease; ATTEND Internal Medicine Pulmonary Disease
DX: R55 Syncope and collapse (principal); F03.90 Unspecified dementia, unspecified severity, without behavioral disturbance, psychotic disturbance, mood disturbance, and anxiety; G40.909 Epilepsy, unspecified, not intractable, without status epilepticus; S20.211A Contusion of right front wall of thorax, initial encounter; W18.30XA Fall on same level, unspecified, initial encounter; E78.5 Hyperlipidemia, unspecified; Z88.0 Allergy status to penicillin; Y92.002 Bathroom of unspecified non-institutional (private) residence as the place of occurrence of the external cause; E78.00 Pure hypercholesterolemia, unspecified; F41.9 Anxiety disorder, unspecified; G89.29 Other chronic pain; J45.909 Unspecified asthma, uncomplicated; M81.0 Age-related osteoporosis without current pathological fracture; F32.9 Major depressive disorder, single episode, unspecified; R32 Unspecified urinary incontinence; L60.3 Nail dystrophy; L85.9 Epidermal thickening, unspecified; I10 Essential (primary) hypertension

== ENCOUNTER 2016-10-29 14:50 | Inpatient (IN) | payer OTHER, MEDICAID ==
[2016-10-29 15:01] VITALS: BMI 23.9
[2016-10-29] MEDS ORDERED: Tuberculin 5 Units/0.1 ml Inj ID ONE (15:32)
[2016-10-29 16:14] VITALS: RESP 20
[2016-10-29] MEDS: Fluticasone-Salmeterol 500-50mcg Diskus IH SCH (21:55)
[2016-10-29] MEDS ORDERED: Patient's Own Med (Ropinirole [Requip] 1 MG) PO SCH (22:00)
[2016-10-30] MEDS: Fluticasone-Salmeterol 500-50mcg Diskus IH SCH ×2 (08:43→22:05)
[2016-10-30] MEDS ORDERED: Patient's Own Med (Fluticasone/Vilanterol [Breo Ellipta 100-25 Mcg Inh] 1 PUFF) IH SCH (09:00)
[2016-10-31] MEDS: Fluticasone-Salmeterol 500-50mcg Diskus IH SCH ×2 (09:38→21:29)
--- NOTE | 2016-10-31 22:42 | CP.PCM.HP ---
History of Present Illness - History of Present Illness History of Present Illness: 81 y/o F previously admitted to [facility] on 10/26/16 for Syncope and fall at home, c/o of severe R shoulder pain 2nd to contusion and R chest wall pain also 2nd to fall, on evaluation, CT Chest was found with Fx of the 10 Rib, also c/o of generalized weakness. On 10/29/16, Pt was stable and was transferred to [facility], to receive physical therapy in her R shoulder to improve her ROM, also for her R Rib Fx and generalized weakness. Pt lives along an is in need for help in strength, endurance and balance to increase functional outcome. Present on Admission - Present on Admission Any Indicators Present on Admission: No Review of Systems - Constitutional Constitutional: Frequent Falls, Weakness - EENT Eyes: Requires Corrective Lenses Ears: Abnormal Hearing (left ear) Nose/Mouth/Throat: Other (negative) - Cardiovascular Cardiovascular: Other (negative) - Respiratory Respiratory: Other (negative) - Gastrointestinal Gastrointestinal: Other (negative) - Genitourinary Genitourinary: Urinary Incontinence - Musculoskeletal Musculoskeletal: Arthralgias, Back Pain, Other (Hip pain, R shoulder pain.) - Integumentary Integumentary: Other (negative) - Neurological Neurological: Confusion, Frequent Falls, Weakness - Psychiatric Psychiatric: Anxiety, Confusion, Depression - Endocrine Endocrine: Other (negative) - Hematologic/Lymphatic Hematologic: Other (negative) Past Patient History - Infectious Disease Hx of Infectious Diseases: None - Past Medical History & Family History Past Medical History?: Yes Pertinent Family History: Unknown - Past Social History Smoking Status: Never Smoked Alcohol: None Drugs: Denies Home Situation {Lives}: Alone - CARDIAC Hx Cardiac Disorders: Yes Hx Hypercholesterolemia: Yes Hx Hypertension: Yes - PULMONARY Hx Respiratory Disorders: Yes Hx Asthma: Yes - NEUROLOGICAL Hx Neurological Disorder: Yes Hx Dementia: Yes Hx Dizziness: Yes Hx Seizures: Yes Hx Vertigo: Yes - HEENT Hx HEENT Problems: Yes - RENAL Hx Chronic Kidney Disease: No - ENDOCRINE/METABOLIC Hx Endocrine Disorders: No - HEMATOLOGICAL/ONCOLOGICAL Hx Blood Disorders: No Hx AIDS: No Hx Blood Transfusions: No Hx Human Immunodeficiency Virus (HIV): No - INTEGUMENTARY Hx Dermatological Problems: No - MUSCULOSKELETAL/RHEUMATOLOGICAL Hx Arthritis: Yes (poly) - GASTROINTESTINAL Hx Gastrointestinal Disorders: Yes Hx Constipation: Yes - GENITOURINARY/GYNECOLOGICAL Hx Genitourinary Disorders: Yes Hx Incontinence: Yes - PSYCHIATRIC Hx Psychophysiologic Disorder: Yes Hx Anxiety: Yes Hx Depression: Yes Hx Substance Use: No - SURGICAL HISTORY Hx Surgeries: Yes Hx Tubal Ligation: Yes - ANESTHESIA Hx Anesthesia: Yes Hx Anesthesia Reactions: No Has any member of the family had a problem w/ anesthesia?: No Meds Allergies/Adverse Reactions: Allergies Allergy/AdvReac Type Severity Reaction Status Date / Time Penicillins Allergy RASH Verified 10/25/16 14:55 Physical Exam - Constitutional Appears: No Acute Distress, Chronically Ill - Head Exam Head Exam: NORMAL INSPECTION - Eye Exam Eye Exam: PERRL - ENT Exam Additional comments: Hard of hearing L ear - Neck Exam Neck exam: Positive for: Normal Inspection - Respiratory Exam Respiratory Exam: NORMAL BREATHING PATTERN Additional comments: Tenderness R chest wall. Ecchymosis in Mid and R anterior chest wall. - Cardiovascular Exam Cardiovascular Exam: REGULAR RHYTHM - GI/Abdominal Exam GI & Abdominal Exam: Normal Bowel Sounds, Soft - Extremities Exam Extremities exam: Positive for: tenderness (R shoulder with decreased ROM) Additional comments: Abrasion L elbow. - Back Exam Back exam: tenderness (L-S) - Neurological Exam Neurological exam: Alert Additional comments: Forgetful, O x2, no focal motor/sensory deficit. - Psychiatric Exam Psychiatric exam: Anxious - Skin Skin Exam: Warm Results - Vital Signs Recent Vital Signs: Last Vital Signs Temp 98.4 F 10/31/16 20:21 Pulse 96 H 10/31/16 20:21 Resp 20 10/31/16 20:21 BP 137/70 10/31/16 20:21 Pulse Ox 98 10/31/16 20:21 reviewed J.P. - Labs Labs: reviewed J.P. Assessment & Plan (1) Contusion of right chest wall Status: Acute (2) Fracture of rib of right side Status: Acute (3) Generalized weakness Status: Acute (4) Near syncope Status: Acute Priority: High (5) Seizure disorder Status: Acute - Assessment and Plan (Free Text) Plan: Continue Percocet, Meclizine, Cimbalta, Neurontin, rest of Tx, PT,OT. - Date & Time Date: 10/31/16 Time: 14:20
[2016-11-01] MEDS: Fluticasone-Salmeterol 500-50mcg Diskus IH SCH ×2 (09:30→22:23)
--- NOTE | 2016-11-01 17:04 | CP.PCM.PN ---
Subjective - Date & Time of Evaluation Date of Evaluation: 11/01/16 Time of Evaluation: 15:45 - Subjective Subjective: F/U R shoulder contusion, R Rib Fx. Pain R shoulder and R chest wall. Objective - Vital Signs/Intake and Output Vital Signs (last 24 hours): Temp Pulse Resp BP Pulse Ox 99.3 F 101 H 20 125/75 97 11/01/16 16:07 11/01/16 16:07 11/01/16 16:07 11/01/16 16:07 11/01/16 16:07 - Medications Medications: Current Medications Aspirin (Aspirin Chewable) 81 mg PO DAILY [facility] Last Admin: 11/01/16 09:30 Dose: 81 mg Atorvastatin Calcium (Lipitor) 40 mg PO [facility] Last Admin: 10/31/16 21:32 Dose: 40 mg Duloxetine HCl (Cymbalta) 20 mg PO DAILY [facility] Last Admin: 11/01/16 09:30 Dose: 20 mg Gabapentin (Neurontin) 100 mg PO TID [facility] Last Admin: 11/01/16 13:15 Dose: 100 mg Home Med (Ropinirole [Requip]) 1 mg PO [facility] Ibuprofen (Motrin Tab) 600 mg PO Q8 PRN PRN Reason: Pain, moderate (4-7) Last Admin: 11/01/16 15:52 Dose: 600 mg Lamotrigine (Lamictal) 25 mg PO TID [facility] Last Admin: 11/01/16 13:15 Dose: 25 mg Loratadine (Claritin) 10 mg PO DAILY [facility] Last Admin: 11/01/16 09:30 Dose: 10 mg Meclizine HCl (Antivert) 12.5 mg PO TID PRN PRN Reason: Dizziness Oxybutynin Chloride (Ditropan Tab) 5 mg PO TID [facility] Last Admin: 11/01/16 13:15 Dose: 5 mg Fluticasone/Salmeterol (Advair Diskus 500/50) 1 puff IH Q12 [facility] Last Admin: 11/01/16 09:30 Dose: 1 units - Constitutional Appears: No Acute Distress, Chronically Ill - Head Exam Head Exam: NORMAL INSPECTION - Eye Exam Eye Exam: PERRL - ENT Exam Additional comments: Hard of hearing - Neck Exam Neck Exam: Normal Inspection - Respiratory Exam Respiratory Exam: NORMAL BREATHING PATTERN Additional comments: Tenderness R chest wall. Ecchymosis in Mid and R anterior chest wall. - Cardiovascular Exam Cardiovascular Exam: REGULAR RHYTHM - GI/Abdominal Exam GI & Abdominal Exam: Soft, Normal Bowel Sounds - Extremities Exam Extremities Exam: Tenderness (R shoulder with decreased ROM) Additional comments: Abrasion L elbow. - Back Exam Back Exam: tenderness (L-S) - Neurological Exam Neurological Exam: Awake Additional comments: Forgetful, O x 2, no focal motor/sensory deficit. - Psychiatric Exam Psychiatric exam: Anxious - Skin Skin Exam: Warm Assessment and Plan (1) Contusion of right chest wall Status: Acute (2) Fracture of rib of right side Status: Acute (3) Contusion of right shoulder Status: Acute (4) Generalized weakness Status: Acute (5) Near syncope Status: Acute (6) Seizure disorder Status: Acute - Assessment and Plan (Free Text) Plan: Continue Percocet, Neurontin, Cimbalta, Meclizine, rest of tx, PT,OT.
[2016-11-02] MEDS: Fluticasone-Salmeterol 500-50mcg Diskus IH SCH ×2 (08:21→21:45)
[2016-11-03] MEDS: Fluticasone-Salmeterol 500-50mcg Diskus IH SCH ×2 (08:39→21:09)
--- NOTE | 2016-11-03 16:53 | CP.PCM.PN ---
Subjective - Date & Time of Evaluation Date of Evaluation: 11/03/16 Time of Evaluation: 14:00 - Subjective Subjective: F/U Contusion R Chest wall, Fx R 10th Rib Objective - Vital Signs/Intake and Output Vital Signs (last 24 hours): Temp Pulse Resp BP Pulse Ox 98.4 F 75 20 119/53 L 95 11/03/16 16:41 11/03/16 16:41 11/03/16 16:41 11/03/16 16:41 11/03/16 16:41 - Medications Medications: Current Medications Aspirin (Aspirin Chewable) 81 mg PO DAILY [facility] Last Admin: 11/03/16 08:40 Dose: 81 mg Atorvastatin Calcium (Lipitor) 40 mg PO [facility] Last Admin: 11/02/16 21:45 Dose: 40 mg Duloxetine HCl (Cymbalta) 20 mg PO DAILY [facility] Last Admin: 11/03/16 08:40 Dose: 20 mg Gabapentin (Neurontin) 100 mg PO TID [facility] Last Admin: 11/03/16 13:37 Dose: 100 mg Home Med (Ropinirole [Requip]) 1 mg PO [facility] Ibuprofen (Motrin Tab) 600 mg PO Q8 PRN PRN Reason: Pain, moderate (4-7) Last Admin: 11/03/16 05:27 Dose: 600 mg Lamotrigine (Lamictal) 25 mg PO TID [facility] Last Admin: 11/03/16 13:37 Dose: 25 mg Loratadine (Claritin) 10 mg PO DAILY [facility] Last Admin: 11/03/16 08:40 Dose: 10 mg Meclizine HCl (Antivert) 12.5 mg PO TID PRN PRN Reason: Dizziness Oxybutynin Chloride (Ditropan Tab) 5 mg PO TID [facility] Last Admin: 11/03/16 13:37 Dose: 5 mg Fluticasone/Salmeterol (Advair Diskus 500/50) 1 puff IH Q12 [facility] Last Admin: 11/03/16 08:39 Dose: 1 units - Constitutional Appears: No Acute Distress, Chronically Ill - Head Exam Head Exam: NORMAL INSPECTION - Eye Exam Eye Exam: PERRL - ENT Exam Additional comments: hard of hearing L ear. - Neck Exam Neck Exam: Normal Inspection - Respiratory Exam Respiratory Exam: NORMAL BREATHING PATTERN Additional comments: Tenderness R chest wall. Ecchymosis in Mid and R anterior chest wall. - Cardiovascular Exam Cardiovascular Exam: REGULAR RHYTHM - GI/Abdominal Exam GI & Abdominal Exam: Soft, Normal Bowel Sounds - Extremities Exam Extremities Exam: Tenderness (R shoulder with decreased ROM.) - Back Exam Back Exam: tenderness (L-S) - Neurological Exam Neurological Exam: Awake Additional comments: Forgetful, oriented x2, no focal motor sensory deficit. - Psychiatric Exam Psychiatric exam: Anxious - Skin Skin Exam: Warm Assessment and Plan (1) Contusion of right chest wall Status: Acute (2) Contusion of right shoulder Status: Acute (3) Fracture of rib of right side Status: Acute (4) Generalized weakness Status: Acute (5) Near syncope Status: Acute (6) Seizure disorder Status: Acute - Assessment and Plan (Free Text) Plan: Continue Percocet, Neurontin, Cimbalta, Meclizine, rest of tx, PT,OT.
[2016-11-04] MEDS: Fluticasone-Salmeterol 500-50mcg Diskus IH SCH ×2 (08:10→21:52)
[2016-11-04] MEDS ORDERED: Oxycodone/Acetaminophen 5/325 mg Tab PO PRN (13:03)
--- NOTE | 2016-11-04 17:46 | CP.PCM.PN ---
Subjective - Date & Time of Evaluation Date of Evaluation: 11/04/16 Time of Evaluation: 13:20 - Subjective Subjective: F/U Chest contusion, Fx R 10th Rib. Pt c/o of pain in R shoulder and R chest wall. Objective - Vital Signs/Intake and Output Vital Signs (last 24 hours): Temp Pulse Resp BP Pulse Ox 96.4 F L 81 20 118/51 L 99 11/04/16 17:12 11/04/16 17:12 11/04/16 17:12 11/04/16 17:12 11/04/16 17:12 - Medications Medications: Current Medications Aspirin (Aspirin Chewable) 81 mg PO DAILY [facility] Last Admin: 11/04/16 08:11 Dose: 81 mg Atorvastatin Calcium (Lipitor) 40 mg PO [facility] Last Admin: 11/03/16 21:08 Dose: 40 mg Duloxetine HCl (Cymbalta) 20 mg PO DAILY [facility] Last Admin: 11/04/16 08:11 Dose: 20 mg Gabapentin (Neurontin) 100 mg PO TID [facility] Last Admin: 11/04/16 17:22 Dose: 100 mg Home Med (Ropinirole [Requip]) 1 mg PO [facility] Ibuprofen (Motrin Tab) 600 mg PO Q8 PRN PRN Reason: Pain, moderate (4-7) Last Admin: 11/04/16 06:19 Dose: 600 mg Lamotrigine (Lamictal) 25 mg PO TID [facility] Last Admin: 11/04/16 17:22 Dose: 25 mg Loratadine (Claritin) 10 mg PO DAILY [facility] Last Admin: 11/04/16 08:11 Dose: 10 mg Meclizine HCl (Antivert) 12.5 mg PO TID PRN PRN Reason: Dizziness Oxybutynin Chloride (Ditropan Tab) 5 mg PO TID [facility] Last Admin: 11/04/16 17:22 Dose: 5 mg Oxycodone/Acetaminophen (Percocet 5/325 Mg Tab) 1 tab PO Q8 PRN PRN Reason: Pain, severe (8-10) Stop: 11/07/16 13:04 Fluticasone/Salmeterol (Advair Diskus 500/50) 1 puff IH Q12 [facility] Last Admin: 11/04/16 08:10 Dose: 1 puff - Constitutional Appears: No Acute Distress, Chronically Ill - Head Exam Head Exam: NORMAL INSPECTION - Eye Exam Eye Exam: PERRL - ENT Exam Additional comments: Hard of hear L ear. - Neck Exam Neck Exam: Normal Inspection - Respiratory Exam Respiratory Exam: NORMAL BREATHING PATTERN Additional comments: Tenderness R chest wall. Ecchymosis in Mid and R anterior Chest Wall. - Cardiovascular Exam Cardiovascular Exam: REGULAR RHYTHM - GI/Abdominal Exam GI & Abdominal Exam: Soft, Normal Bowel Sounds - Extremities Exam Extremities Exam: Tenderness (R shoulder with decreased ROM) - Back Exam Back Exam: tenderness (L-S) - Neurological Exam Neurological Exam: Awake Additional comments: Oriented x 2, forgetful, no focal motor sensory deficit. - Psychiatric Exam Psychiatric exam: Anxious - Skin Skin Exam: Warm (Ecchymosis Mid and R anterior chest wall.) Assessment and Plan (1) Contusion of right chest wall Status: Acute (2) Contusion of right shoulder Status: Acute (3) Fracture of rib of right side Status: Acute (4) Generalized weakness Status: Acute (5) Near syncope Status: Acute (6) Seizure disorder Status: Acute - Assessment and Plan (Free Text) Plan: To have MRI R shoulder, f/u Ortho consult.
[2016-11-05] MEDS: Fluticasone-Salmeterol 500-50mcg Diskus IH SCH ×2 (08:25→22:15)
--- NOTE | 2016-11-05 21:37 | CP.PCM.PN ---
Subjective - Date & Time of Evaluation Date of Evaluation: 11/05/16 Time of Evaluation: 10:00 - Subjective Subjective: Contusion R chest wall/ R Fib Fx Pt c/o of R shoulder pain and R anterior chest wall pain. Objective - Vital Signs/Intake and Output Vital Signs (last 24 hours): Temp Pulse Resp BP Pulse Ox 97.7 F 75 20 124/61 99 11/05/16 20:04 11/05/16 20:04 11/05/16 20:04 11/05/16 20:04 11/05/16 20:04 - Medications Medications: Current Medications Aspirin (Aspirin Chewable) 81 mg PO DAILY [facility] Last Admin: 11/05/16 08:26 Dose: 81 mg Atorvastatin Calcium (Lipitor) 40 mg PO [facility] Last Admin: 11/04/16 22:13 Dose: 40 mg Duloxetine HCl (Cymbalta) 20 mg PO DAILY [facility] Last Admin: 11/05/16 08:26 Dose: 20 mg Gabapentin (Neurontin) 100 mg PO TID [facility] Last Admin: 11/05/16 18:08 Dose: 100 mg Home Med (Ropinirole [Requip]) 1 mg PO [facility] Ibuprofen (Motrin Tab) 600 mg PO Q8 PRN PRN Reason: Pain, moderate (4-7) Last Admin: 11/05/16 12:32 Dose: 600 mg Lamotrigine (Lamictal) 25 mg PO TID [facility] Last Admin: 11/05/16 18:08 Dose: 25 mg Loratadine (Claritin) 10 mg PO DAILY [facility] Last Admin: 11/05/16 08:26 Dose: 10 mg Meclizine HCl (Antivert) 12.5 mg PO TID PRN PRN Reason: Dizziness Oxybutynin Chloride (Ditropan Tab) 5 mg PO TID [facility] Last Admin: 11/05/16 18:08 Dose: 5 mg Oxycodone/Acetaminophen (Percocet 5/325 Mg Tab) 1 tab PO Q8 PRN PRN Reason: Pain, severe (8-10) Stop: 11/07/16 13:04 Fluticasone/Salmeterol (Advair Diskus 500/50) 1 puff IH Q12 [facility] Last Admin: 11/05/16 08:25 Dose: 1 puff - Constitutional Appears: No Acute Distress, Chronically Ill - Head Exam Head Exam: NORMAL INSPECTION - Eye Exam Eye Exam: PERRL - ENT Exam ENT Exam: Normal Oropharynx Additional comments: Hard of hearing L ear. - Neck Exam Neck Exam: Normal Inspection - Respiratory Exam Respiratory Exam: NORMAL BREATHING PATTERN Additional comments: Tenderness R cheat wall,. Ecchymmosis in Mid and R anterior chest wall. - Cardiovascular Exam Cardiovascular Exam: REGULAR RHYTHM - GI/Abdominal Exam GI & Abdominal Exam: Soft, Normal Bowel Sounds - Extremities Exam Extremities Exam: Tenderness (R shoulder with decreased ROM) - Back Exam Back Exam: tenderness (L-S) - Neurological Exam Neurological Exam: Awake Additional comments: Oriented x 2, forgetful, no focal motor sensory deficit. - Psychiatric Exam Psychiatric exam: Anxious - Skin Skin Exam: Warm Assessment and Plan (1) Contusion of right chest wall Status: Acute (2) Contusion of right shoulder Status: Acute (3) Fracture of rib of right side Status: Acute (4) Generalized weakness Status: Acute (5) Near syncope Status: Acute (6) Seizure disorder Status: Acute - Assessment and Plan (Free Text) Plan: To have Ativan IV before MRI today, continue current Tx.
[2016-11-06] MEDS: Fluticasone-Salmeterol 500-50mcg Diskus IH SCH ×2 (08:54→21:40)
--- NOTE | 2016-11-06 14:10 | CP.PCM.PN ---
Subjective - Date & Time of Evaluation Date of Evaluation: 11/06/16 Time of Evaluation: 13:00 - Subjective Subjective: F/U Contusion R chest wall, R rib Fx. Pt c/o of pain in R shoulder with mile improvement, MRI was not done yesterday, apparently did not cooperate even with Ativan IV. Objective - Vital Signs/Intake and Output Vital Signs (last 24 hours): Temp Pulse Resp BP Pulse Ox 97.7 F 61 20 125/57 L 96 11/06/16 08:40 11/06/16 08:40 11/06/16 08:40 11/06/16 08:40 11/06/16 08:40 - Medications Medications: Current Medications Aspirin (Aspirin Chewable) 81 mg PO DAILY [facility] Last Admin: 11/06/16 08:53 Dose: 81 mg Atorvastatin Calcium (Lipitor) 40 mg PO [facility] Last Admin: 11/05/16 22:15 Dose: 40 mg Duloxetine HCl (Cymbalta) 20 mg PO DAILY [facility] Last Admin: 11/06/16 08:53 Dose: 20 mg Gabapentin (Neurontin) 100 mg PO TID [facility] Last Admin: 11/06/16 13:01 Dose: 100 mg Home Med (Ropinirole [Requip]) 1 mg PO [facility] Ibuprofen (Motrin Tab) 600 mg PO Q8 PRN PRN Reason: Pain, moderate (4-7) Last Admin: 11/05/16 12:32 Dose: 600 mg Lamotrigine (Lamictal) 25 mg PO TID [facility] Last Admin: 11/06/16 13:01 Dose: 25 mg Loratadine (Claritin) 10 mg PO DAILY [facility] Last Admin: 11/06/16 08:53 Dose: 10 mg Meclizine HCl (Antivert) 12.5 mg PO TID PRN PRN Reason: Dizziness Oxybutynin Chloride (Ditropan Tab) 5 mg PO TID [facility] Last Admin: 11/06/16 13:01 Dose: 5 mg Oxycodone/Acetaminophen (Percocet 5/325 Mg Tab) 1 tab PO Q8 PRN PRN Reason: Pain, severe (8-10) Stop: 11/07/16 13:04 Fluticasone/Salmeterol (Advair Diskus 500/50) 1 puff IH Q12 [facility] Last Admin: 11/06/16 08:54 Dose: 1 puff - Constitutional Appears: No Acute Distress, Chronically Ill - Head Exam Head Exam: NORMAL INSPECTION - Eye Exam Eye Exam: PERRL - ENT Exam ENT Exam: Normal Oropharynx Additional comments: Hard of hearing L ear. - Neck Exam Neck Exam: Normal Inspection - Respiratory Exam Respiratory Exam: NORMAL BREATHING PATTERN Additional comments: Tenderness R chest wall, ecchymosis in Mid and R anterior chest wall. - Cardiovascular Exam Cardiovascular Exam: REGULAR RHYTHM - GI/Abdominal Exam GI & Abdominal Exam: Soft, Normal Bowel Sounds - Extremities Exam Extremities Exam: Tenderness (R shoulder with decreased ROM.) - Back Exam Back Exam: tenderness (L-S) - Neurological Exam Neurological Exam: Awake Additional comments: Oriented x2, forgetful, no focal motor sensory deficit. - Psychiatric Exam Psychiatric exam: Anxious - Skin Skin Exam: Warm Assessment and Plan (1) Contusion of right chest wall Status: Acute (2) Contusion of right shoulder Status: Acute (3) Fracture of rib of right side Status: Acute (4) Generalized weakness Status: Acute (5) Near syncope Status: Acute (6) Seizure disorder Status: Acute - Assessment and Plan (Free Text) Plan: Continue Percocet and rest of Tx. Orthopedic consult.
[2016-11-07] MEDS: Fluticasone-Salmeterol 500-50mcg Diskus IH SCH ×2 (08:55→21:44)
--- NOTE | 2016-11-07 11:16 | CP.PCM.CON ---
History of Present Illness - History of Present Illness History of Present Illness: ID : [id number] nyo disoriented female CC: Pain, restricted ROM R shoulder/pain L S/C joint/ pain distal aspect R clavicle/pain R costal margin Past Patient History - Infectious Disease Hx of Infectious Diseases: None - Past Medical History & Family History Past Medical History?: Yes - Past Social History Smoking Status: Never Smoked Alcohol: None Drugs: Denies Home Situation {Lives}: Alone - CARDIAC Hx Cardiac Disorders: Yes Hx Hypercholesterolemia: Yes Hx Hypertension: Yes - PULMONARY Hx Respiratory Disorders: Yes Hx Asthma: Yes - NEUROLOGICAL Hx Neurological Disorder: Yes Hx Dementia: Yes Hx Dizziness: Yes Hx Seizures: Yes Hx Vertigo: Yes - HEENT Hx HEENT Problems: Yes - RENAL Hx Chronic Kidney Disease: No - ENDOCRINE/METABOLIC Hx Endocrine Disorders: No - HEMATOLOGICAL/ONCOLOGICAL Hx Blood Disorders: No Hx AIDS: No Hx Blood Transfusions: No Hx Human Immunodeficiency Virus (HIV): No - INTEGUMENTARY Hx Dermatological Problems: No - MUSCULOSKELETAL/RHEUMATOLOGICAL Hx Arthritis: Yes (poly) - GASTROINTESTINAL Hx Gastrointestinal Disorders: Yes Hx Constipation: Yes - GENITOURINARY/GYNECOLOGICAL Hx Genitourinary Disorders: Yes Hx Incontinence: Yes - PSYCHIATRIC Hx Psychophysiologic Disorder: Yes Hx Anxiety: Yes Hx Depression: Yes Hx Substance Use: No - SURGICAL HISTORY Hx Surgeries: Yes Hx Tubal Ligation: Yes - ANESTHESIA Hx Anesthesia: Yes Hx Anesthesia Reactions: No Has any member of the family had a problem w/ anesthesia?: No Meds Allergies/Adverse Reactions: Allergies Allergy/AdvReac Type Severity Reaction Status Date / Time Penicillins Allergy RASH Verified 10/25/16 14:55 - Medications Medications: Current Medications Aspirin (Aspirin Chewable) 81 mg PO DAILY [facility] Last Admin: 11/07/16 08:56 Dose: 81 mg Atorvastatin Calcium (Lipitor) 40 mg PO HS [facility] Last Admin: 11/06/16 21:40 Dose: 40 mg Duloxetine HCl (Cymbalta) 20 mg PO DAILY [facility] Last Admin: 11/07/16 08:57 Dose: 20 mg Gabapentin (Neurontin) 100 mg PO TID [facility] Last Admin: 11/07/16 08:57 Dose: 100 mg Ibuprofen (Motrin Tab) 600 mg PO Q8 PRN PRN Reason: Pain, moderate (4-7) Last Admin: 11/05/16 12:32 Dose: 600 mg Lamotrigine (Lamictal) 25 mg PO TID [facility] Last Admin: 11/07/16 08:57 Dose: 25 mg Loratadine (Claritin) 10 mg PO DAILY [facility] Last Admin: 11/07/16 08:56 Dose: 10 mg Meclizine HCl (Antivert) 12.5 mg PO TID PRN PRN Reason: Dizziness Oxybutynin Chloride (Ditropan Tab) 5 mg PO TID [facility] Last Admin: 11/07/16 08:57 Dose: 5 mg Oxycodone/Acetaminophen (Percocet 5/325 Mg Tab) 1 tab PO Q8 PRN PRN Reason: Pain, severe (8-10) Stop: 11/07/16 13:04 Last Admin: 11/07/16 08:02 Dose: 1 tab Fluticasone/Salmeterol (Advair Diskus 500/50) 1 puff IH Q12 [facility] Last Admin: 11/07/16 08:55 Dose: 1 puff Physical Exam - Additional Findings Additional findings: Objective Exam systemic as per Dr amin H+P pt disoriented at time of encounter/ Musculoskekltal stance/gait- defrred exam ROM R shoulder resticted + swelling and tenderness at R S/C joint + tenderness R costal margin no difficulty breathing no evidence for pneumothorax ROM R shoulder restricted Results - Vital Signs Recent Vital Signs: Last Vital Signs Temp 97.7 F 11/07/16 08:08 Pulse 66 11/07/16 08:08 Resp 20 11/07/16 08:08 BP 139/66 11/07/16 08:08 Pulse Ox 99 11/07/16 08:08 - Impressions Impression: Imaging- results CT scan pending pt n ot cooperative with MRI Assessment & Plan - Assessment and Plan (Free Text) Assessment: A- R/O rotator cuff tear R shoulder Fx 12th rib R/O S/C dislocation/ R/O A/C joint dislocation P- Ct scan pending immoibilization in sling/ even if S/C joint is dislocated, would treat conservatively in this age group
--- NOTE | 2016-11-07 15:30 | CP.PCM.PN ---
Subjective - Date & Time of Evaluation Date of Evaluation: 11/07/16 Time of Evaluation: 13:30 - Subjective Subjective: F/U Contusion R chest wall, Fx R Rib Pt c/o of pain in R shoulder with decreased ROM, also c/o of R chest wall pain. Objective - Vital Signs/Intake and Output Vital Signs (last 24 hours): Temp Pulse Resp BP Pulse Ox 97.7 F 66 20 139/66 99 11/07/16 08:08 11/07/16 08:08 11/07/16 08:08 11/07/16 08:08 11/07/16 08:08 - Medications Medications: Current Medications Aspirin (Aspirin Chewable) 81 mg PO DAILY [facility] Last Admin: 11/07/16 08:56 Dose: 81 mg Atorvastatin Calcium (Lipitor) 40 mg PO HS [facility] Last Admin: 11/06/16 21:40 Dose: 40 mg Duloxetine HCl (Cymbalta) 20 mg PO DAILY [facility] Last Admin: 11/07/16 08:57 Dose: 20 mg Gabapentin (Neurontin) 100 mg PO TID [facility] Last Admin: 11/07/16 12:38 Dose: 100 mg Ibuprofen (Motrin Tab) 600 mg PO Q8 PRN PRN Reason: Pain, moderate (4-7) Last Admin: 11/05/16 12:32 Dose: 600 mg Lamotrigine (Lamictal) 25 mg PO TID [facility] Last Admin: 11/07/16 12:38 Dose: 25 mg Loratadine (Claritin) 10 mg PO DAILY [facility] Last Admin: 11/07/16 08:56 Dose: 10 mg Meclizine HCl (Antivert) 12.5 mg PO TID PRN PRN Reason: Dizziness Oxybutynin Chloride (Ditropan Tab) 5 mg PO TID [facility] Last Admin: 11/07/16 12:38 Dose: 5 mg Fluticasone/Salmeterol (Advair Diskus 500/50) 1 puff IH Q12 [facility] Last Admin: 11/07/16 08:55 Dose: 1 puff - Constitutional Appears: No Acute Distress, Chronically Ill - Head Exam Head Exam: NORMAL INSPECTION - Eye Exam Eye Exam: PERRL - ENT Exam ENT Exam: Normal Oropharynx Additional comments: Hard of hearing L ear. - Neck Exam Neck Exam: Normal Inspection - Respiratory Exam Respiratory Exam: NORMAL BREATHING PATTERN Additional comments: tenderness R chest wall, Ecchymosis in Mid and R anterior chest wall. - Cardiovascular Exam Cardiovascular Exam: REGULAR RHYTHM - GI/Abdominal Exam GI & Abdominal Exam: Soft, Normal Bowel Sounds - Extremities Exam Extremities Exam: Tenderness (R shoulder with decreased ROM) - Back Exam Back Exam: tenderness (L-S) - Neurological Exam Neurological Exam: Awake Additional comments: Forgetful, oriented x2, no focal motor sensory deficit. - Psychiatric Exam Psychiatric exam: Anxious - Skin Skin Exam: Warm Assessment and Plan (1) Contusion of right chest wall Status: Acute (2) Contusion of right shoulder Status: Acute (3) Fracture of rib of right side Status: Acute (4) Generalized weakness Status: Acute (5) Near syncope Status: Acute (6) Seizure disorder Status: Acute - Assessment and Plan (Free Text) Plan: Pt had CT R Shoulder today, continue pain medication and rest of Tx, f/u with Orthopedic.
--- NOTE | 2016-11-07 17:38 | CP.PCM.CON ---
History of Present Illness - History of Present Illness History of Present Illness: 81 y/o female with PMHx of Osteoarthritis, seizure, depression, urinary incontinence, back pain seen at bed side 5 weeks s/p fall for painful nails and calluses. Pt is AAOx3 and is in NAD. 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 Pt states that she has been having pain in her big toe nail and the bottom of the heel on the right side. Pt states that she is unable to cut her nails on her own because she has weakness and arthritis. Pt denies of any other pedal complains at this time. Pt denies of any recent F/N/V/C/SOB. PMHx: Osteoarthritis, seizure, depression, urinary incontinence, back pain PSHx: Tubal ligation SHx: denies Allergies: Penicillins Review of Systems - Constitutional Constitutional: As Per HPI Past Patient History - Infectious Disease Hx of Infectious Diseases: None - Past Medical History & Family History Past Medical History?: Yes - Past Social History Smoking Status: Never Smoked Alcohol: None Drugs: Denies Home Situation {Lives}: Alone - CARDIAC Hx Cardiac Disorders: Yes Hx Hypercholesterolemia: Yes Hx Hypertension: Yes - PULMONARY Hx Respiratory Disorders: Yes Hx Asthma: Yes - NEUROLOGICAL Hx Neurological Disorder: Yes Hx Dementia: Yes Hx Dizziness: Yes Hx Seizures: Yes Hx Vertigo: Yes - HEENT Hx HEENT Problems: Yes - RENAL Hx Chronic Kidney Disease: No - ENDOCRINE/METABOLIC Hx Endocrine Disorders: No - HEMATOLOGICAL/ONCOLOGICAL Hx Blood Disorders: No Hx AIDS: No Hx Blood Transfusions: No Hx Human Immunodeficiency Virus (HIV): No - INTEGUMENTARY Hx Dermatological Problems: No - MUSCULOSKELETAL/RHEUMATOLOGICAL Hx Arthritis: Yes (poly) - GASTROINTESTINAL Hx Gastrointestinal Disorders: Yes Hx Constipation: Yes - GENITOURINARY/GYNECOLOGICAL Hx Genitourinary Disorders: Yes Hx Incontinence: Yes - PSYCHIATRIC Hx Psychophysiologic Disorder: Yes Hx Anxiety: Yes Hx Depression: Yes Hx Substance Use: No - SURGICAL HISTORY Hx Surgeries: Yes Hx Tubal Ligation: Yes - ANESTHESIA Hx Anesthesia: Yes Hx Anesthesia Reactions: No Has any member of the family had a problem w/ anesthesia?: No Meds Allergies/Adverse Reactions: Allergies Allergy/AdvReac Type Severity Reaction Status Date / Time Penicillins Allergy RASH Verified 10/25/16 14:55 - Medications Medications: Current Medications Aspirin (Aspirin Chewable) 81 mg PO DAILY [facility] Last Admin: 11/07/16 08:56 Dose: 81 mg Atorvastatin Calcium (Lipitor) 40 mg PO HS [facility] Last Admin: 11/06/16 21:40 Dose: 40 mg Duloxetine HCl (Cymbalta) 20 mg PO DAILY [facility] Last Admin: 11/07/16 08:57 Dose: 20 mg Gabapentin (Neurontin) 100 mg PO TID [facility] Last Admin: 11/07/16 17:01 Dose: 100 mg Ibuprofen (Motrin Tab) 600 mg PO Q8 PRN PRN Reason: Pain, moderate (4-7) Last Admin: 11/05/16 12:32 Dose: 600 mg Lamotrigine (Lamictal) 25 mg PO TID [facility] Last Admin: 11/07/16 17:01 Dose: 25 mg Loratadine (Claritin) 10 mg PO DAILY [facility] Last Admin: 11/07/16 08:56 Dose: 10 mg Meclizine HCl (Antivert) 12.5 mg PO TID PRN PRN Reason: Dizziness Oxybutynin Chloride (Ditropan Tab) 5 mg PO TID [facility] Last Admin: 11/07/16 17:01 Dose: 5 mg Fluticasone/Salmeterol (Advair Diskus 500/50) 1 puff IH Q12 [facility] Last Admin: 11/07/16 08:55 Dose: 1 puff Physical Exam - Constitutional Appears: Well, Non-toxic, No Acute Distress - Extremities Exam Additional comments: VASC: DP/PT pulses are palpable 2/4 b/l, [employer]: < 3 sec to all digits, TG: warm to cool, no pitting or non-pitting edema noted, mild pedal varicosities noted DERM: discolored, dystrophic nails noted on all digits, hyperkeratosis noted on the plantar posterior lateral aspect of the L heel, no interdigital maceration, no open lesions, no clinical suspicion of infection NEURO: Protective sensation grossly intact ORTHO: mild pain at ankle joint on dorsiflexion and plantarflexion - Neurological Exam Neurological exam: Alert, Oriented x3 - Psychiatric Exam Psychiatric exam: Normal Affect, Normal Mood Results - Vital Signs Recent Vital Signs: Last Vital Signs Temp 97.9 F 11/07/16 16:03 Pulse 82 11/07/16 16:03 Resp 20 11/07/16 16:03 BP 126/64 11/07/16 16:03 Pulse Ox 96 11/07/16 16:03 Assessment & Plan - Assessment and Plan (Free Text) Assessment: 81 y/o female seen at bedside for painful discolored dystrophic nails and hyperkeratotic lesion on plantar posterior lateral left heel Plan: Pt evaluated and chart reviewed Labs and vitals reviewed (afebrile) Aseptic debridement of the nails using sterile nail nippers Aseptic debridement of the hyperkeratotic lesions on the heel Pt tolerated the procedure well Thank you for the podiatry consult - Date & Time Date: 11/07/16 Time: 17:44
[2016-11-08] MEDS: Oxycodone/Acetaminophen 5/325 mg Tab PO PRN (05:30)
[2016-11-08] MEDS: Fluticasone-Salmeterol 500-50mcg Diskus IH SCH ×2 (08:48→21:23)
--- NOTE | 2016-11-08 15:49 | CP.PCM.PN ---
Subjective - Date & Time of Evaluation Date of Evaluation: 11/08/16 Time of Evaluation: 11:30 - Subjective Subjective: F/U R chest wall contusion, Fx R Rib Pain R shoulder , decreased ROM , pain R chest wall Objective - Vital Signs/Intake and Output Vital Signs (last 24 hours): Temp Pulse Resp BP Pulse Ox 97.9 F 71 20 148/64 97 11/08/16 15:43 11/08/16 15:43 11/08/16 15:43 11/08/16 15:43 11/08/16 15:43 - Medications Medications: Current Medications Aspirin (Aspirin Chewable) 81 mg PO DAILY [facility] Last Admin: 11/08/16 08:48 Dose: 81 mg Atorvastatin Calcium (Lipitor) 40 mg PO HS [facility] Last Admin: 11/07/16 21:44 Dose: 40 mg Duloxetine HCl (Cymbalta) 20 mg PO DAILY [facility] Last Admin: 11/08/16 08:49 Dose: 20 mg Gabapentin (Neurontin) 100 mg PO TID [facility] Last Admin: 11/08/16 13:51 Dose: 100 mg Ibuprofen (Motrin Tab) 600 mg PO Q8 PRN PRN Reason: Pain, moderate (4-7) Last Admin: 11/08/16 13:49 Dose: 600 mg Lamotrigine (Lamictal) 25 mg PO TID [facility] Last Admin: 11/08/16 13:51 Dose: 25 mg Loratadine (Claritin) 10 mg PO DAILY [facility] Last Admin: 11/08/16 08:48 Dose: 10 mg Meclizine HCl (Antivert) 12.5 mg PO TID PRN PRN Reason: Dizziness Oxybutynin Chloride (Ditropan Tab) 5 mg PO TID [facility] Last Admin: 11/08/16 13:50 Dose: 5 mg Oxycodone/Acetaminophen (Percocet 5/325 Mg Tab) 1 tab PO Q8 PRN PRN Reason: for pain level 8-10 Stop: 11/11/16 09:01 Last Admin: 11/08/16 05:30 Dose: 1 tab Fluticasone/Salmeterol (Advair Diskus 500/50) 1 puff IH Q12 [facility] Last Admin: 11/08/16 08:48 Dose: 1 puff - Constitutional Appears: No Acute Distress, Chronically Ill - Head Exam Head Exam: NORMAL INSPECTION - Eye Exam Eye Exam: PERRL - ENT Exam ENT Exam: Normal Oropharynx Additional comments: Hard of hearing L ear. - Neck Exam Neck Exam: Normal Inspection - Respiratory Exam Respiratory Exam: NORMAL BREATHING PATTERN Additional comments: tenderness R chest wall, ecchymosis - Cardiovascular Exam Cardiovascular Exam: REGULAR RHYTHM - GI/Abdominal Exam GI & Abdominal Exam: Soft, Normal Bowel Sounds - Extremities Exam Extremities Exam: Tenderness (R shoulder with decreased ROM, dysthrophic nails , callus L heel) - Back Exam Back Exam: tenderness (L-S) - Neurological Exam Neurological Exam: Awake Additional comments: Forgetful, oriented x 2, no focal motor sensory deficit. - Psychiatric Exam Psychiatric exam: Anxious - Skin Skin Exam: Warm Assessment and Plan (1) Contusion of right chest wall Status: Acute (2) Contusion of right shoulder Status: Acute (3) Fracture of rib of right side Status: Acute (4) Generalized weakness Status: Acute (5) Near syncope Status: Acute (6) Seizure disorder Status: Acute - Assessment and Plan (Free Text) Plan: f/u CT R shoulder , Podiatric consult, continue rest of treatment,Social Service working for transfering Patient to [facility]
[2016-11-09] MEDS: Fluticasone-Salmeterol 500-50mcg Diskus IH SCH (08:40)
[2016-11-09] MEDS: Oxycodone/Acetaminophen 5/325 mg Tab PO PRN (11:46)
[2016-11-09 13:13] VITALS: O2SAT 98
--- NOTE | 2016-11-09 13:39 | CP.PCM.PN ---
Subjective - Date & Time of Evaluation Date of Evaluation: 11/09/16 Time of Evaluation: 10:20 - Subjective Subjective: F/U Contusion R chest wall, Fx R rib Pt c/o of pain in R shoulder and R chest wall. Objective - Vital Signs/Intake and Output Vital Signs (last 24 hours): Temp Pulse Resp BP Pulse Ox 98.1 F 64 20 127/60 98 11/09/16 09:00 11/09/16 09:00 11/09/16 09:00 11/09/16 09:00 11/09/16 09:00 - Medications Medications: Current Medications Aspirin (Aspirin Chewable) 81 mg PO DAILY [facility] Last Admin: 11/09/16 08:42 Dose: 81 mg Atorvastatin Calcium (Lipitor) 40 mg PO HS [facility] Last Admin: 11/08/16 21:18 Dose: 40 mg Duloxetine HCl (Cymbalta) 20 mg PO DAILY [facility] Last Admin: 11/09/16 08:41 Dose: 20 mg Gabapentin (Neurontin) 100 mg PO TID [facility] Last Admin: 11/09/16 12:22 Dose: 100 mg Ibuprofen (Motrin Tab) 600 mg PO Q8 PRN PRN Reason: Pain, moderate (4-7) Last Admin: 11/09/16 08:41 Dose: 600 mg Lamotrigine (Lamictal) 25 mg PO TID [facility] Last Admin: 11/09/16 12:22 Dose: 25 mg Loratadine (Claritin) 10 mg PO DAILY [facility] Last Admin: 11/09/16 08:42 Dose: 10 mg Meclizine HCl (Antivert) 12.5 mg PO TID PRN PRN Reason: Dizziness Oxybutynin Chloride (Ditropan Tab) 5 mg PO TID [facility] Last Admin: 11/09/16 12:22 Dose: 5 mg Oxycodone/Acetaminophen (Percocet 5/325 Mg Tab) 1 tab PO Q8 PRN PRN Reason: for pain level 8-10 Stop: 11/11/16 09:01 Last Admin: 11/09/16 11:46 Dose: 1 tab Fluticasone/Salmeterol (Advair Diskus 500/50) 1 puff IH Q12 [facility] Last Admin: 11/09/16 08:40 Dose: 1 puff - Constitutional Appears: No Acute Distress, Chronically Ill - Head Exam Head Exam: NORMAL INSPECTION - Eye Exam Eye Exam: PERRL - ENT Exam ENT Exam: Normal Oropharynx Additional comments: Hard of hearing L ear - Neck Exam Neck Exam: Normal Inspection - Respiratory Exam Respiratory Exam: NORMAL BREATHING PATTERN Additional comments: R chest wall mid tenderness, Ecchymosis - Cardiovascular Exam Cardiovascular Exam: REGULAR RHYTHM - GI/Abdominal Exam GI & Abdominal Exam: Soft, Normal Bowel Sounds - Extremities Exam Extremities Exam: Tenderness (R shoulder with decreased ROM, dysthropic nails, gallus L heel.) - Back Exam Back Exam: tenderness (L-S) - Neurological Exam Neurological Exam: Awake Additional comments: Forgetful, oriented x2, no focal ignacio sensory deficit. - Psychiatric Exam Psychiatric exam: Anxious - Skin Skin Exam: Warm Assessment and Plan (1) Fracture of rib of right side Status: Acute (2) Contusion of right shoulder Status: Acute (3) Contusion of right chest wall Status: Acute (4) Rotator cuff tear, right Status: Acute (5) Right clavicle fracture Status: Acute (6) Generalized weakness Status: Acute (7) Near syncope Status: Acute (8) Seizure disorder Status: Acute - Assessment and Plan (Free Text) Plan: Ct R shoulder shows R clavicle Fx and Rotator cuff tear. Pt cleared by Orthopedic chain sales consultant Dr Barboza to be discharged to [facility], Pt improved, see instruction medication sheet, I will follow pt in that facility.
[2016-11-09 15:47] VITALS: BP 116/54; PULSE 72; TEMP 97.9
--- NOTE | 2016-11-17 13:10 | CP.PCM.DIS ---
Provider - Provider Date of Admission: 10/29/16 15:01 Attending physician: Sj Lara MD Consults: Orthopedic and Podiatry. Time Spent in preparation of Discharge (in minutes): 25 Diagnosis - Discharge Diagnosis (1) Fracture of rib of right side Status: Acute (2) Contusion of right shoulder Status: Acute (3) Contusion of right chest wall Status: Acute (4) Rotator cuff tear, right Status: Acute (5) Right clavicle fracture Status: Acute (6) Generalized weakness Status: Acute (7) Near syncope Status: Acute Priority: High (8) Seizure disorder Status: Acute Hospital Course - Lab Results Lab Results: Most Recent Lab Values POC Glucose (mg/dL) 108 mg/dL (65-110) 10/29/16 20:20 - Date & Time of H&P Date of H&P: 10/31/16 Time of H&P: 14:20 Discharge Exam - Head Exam Head Exam: NORMAL INSPECTION Discharge Plan - Follow Up Plan Condition: GOOD Disposition: TRANSF TO SNF
== END 2016-11-09 16:03 | DRG 946 ==
LOC: H.TCU 15:01
PROVIDERS: ADMIT Internal Medicine Pulmonary Disease; ATTEND Internal Medicine Pulmonary Disease
PROC: F08Z4ZZ Home Management Treatment (ICD-10-PCS; principal; 2016-10-29)
PROC: F07Z5FZ Bed Mobility Treatment using Assistive, Adaptive, Supportive or Protective Equipment (ICD-10-PCS; 2016-10-29)
PROC: F07Z8FZ Transfer Training Treatment using Assistive, Adaptive, Supportive or Protective Equipment (ICD-10-PCS; 2016-10-29)
PROC: F07Z9FZ Gait Training/Functional Ambulation Treatment using Assistive, Adaptive, Supportive or Protective Equipment (ICD-10-PCS; 2016-10-29)
PROC: F07L6ZZ Therapeutic Exercise Treatment of Musculoskeletal System - Lower Back / Lower Extremity (ICD-10-PCS; 2016-10-29)
PROC: F07K0ZZ Range of Motion and Joint Mobility Treatment of Musculoskeletal System - Upper Back / Upper Extremity (ICD-10-PCS; 2016-10-29)
DX: S20.211D Contusion of right front wall of thorax, subsequent encounter (principal); G40.909 Epilepsy, unspecified, not intractable, without status epilepticus; S22.31XD Fracture of one rib, right side, subsequent encounter for fracture with routine healing; W19.XXXD Unspecified fall, subsequent encounter; R53.1 Weakness; S40.011D Contusion of right shoulder, subsequent encounter; S46.011D Strain of muscle(s) and tendon(s) of the rotator cuff of right shoulder, subsequent encounter; S42.001D Fracture of unspecified part of right clavicle, subsequent encounter for fracture with routine healing; Z88.0 Allergy status to penicillin; L60.3 Nail dystrophy; L57.0 Actinic keratosis

== ENCOUNTER 2017-04-01 09:44 | Inpatient (IN) | payer MEDICARE, MEDICAID ==
[2017-04-01 09:45] VITALS: BMI 23.9
--- NOTE | 2017-04-01 10:29 | ED PDOC ---
HPI: Trauma/Fall - HPI Time Seen by Provider: 04/01/17 10:06 Chief Complaint (Nursing): Trauma Chief Complaint (Provider): Multiple falls History Per: Other ([facility]) History/Exam Limitations: clinical condition Additional Complaint(s): 81yo female, sent to the ED from [facility], for evaluation due to multiple falls and a recent XR which showed multiple spinal compression fractures. There is also a questionable history of a syncopal episode. A full HPI and ROS is unavailable from the patient as she has a history of dementia. Past Medical History Reviewed: Historical Data, Nursing Documentation, Vital Signs Vital Signs: Last Vital Signs Temp 98.2 F 04/01/17 09:56 Pulse 87 04/01/17 09:56 Resp 20 04/01/17 09:56 BP 136/70 04/01/17 09:56 Pulse Ox 96 04/01/17 17:52 - Medical History PMH: Anxiety, Arthritis (poly), Asthma, Back Problems, Dementia, Depression, Fractures (L wrist), HTN, Hypercholesterolemia, Osteoporosis, Seizures Denies: HIV, Chronic Kidney Disease - Family History Family History: States: Unknown Family Hx, CAD - Immunization History Hx Tetanus Toxoid Vaccination: No - Home Medications Home Medications: Ambulatory Orders Medication Instructions Recorded Lamotrigine [Lamictal] 25 mg PO TID 05/06/14 Duloxetine HCl 20 mg PO DAILY 11/10/15 Gabapentin [Neurontin] 100 mg PO TID 11/10/15 Levocetirizine Dihydrochloride 5 mg PO DAILY 08/05/16 [Xyzal] Meclizine HCl 12.5 mg PO TID PRN 08/05/16 Oxybutynin XL [Ditropan XL] 15 mg PO DAILY 08/05/16 Ibuprofen [Motrin Tab] 1 tab PO Q8 PRN #20 tab 09/11/16 DULoxetine [Cymbalta] 20 mg PO DAILY 10/25/16 Aspirin [Aspirin Chewable] 81 mg PO DAILY 10/29/16 Fluticasone/Salmeterol 500/50 1 puff IH Q12 puff 10/29/16 [Advair Diskus 500/50] Atorvastatin [Lipitor] 1 tab PO HS 04/01/17 Bisacodyl [Dulcolax] 1 supp SC PRN PRN 04/01/17 Calcium Carbonate/Vitamin D3 1 cap PO BID 04/01/17 [Calcium 600 + Vit D 400 Softgl] Divalproex [Depakote Sprinkles] 125 mg PO DAILY 04/01/17 Ergocalciferol (Vitamin D2) 1 cap PO QWK 04/01/17 [Vitamin D2] Loratadine [Claritin] 1 tab PO DAILY 04/01/17 Magnesium Hydroxide [Milk Of 30 ml PO HS 04/01/17 Magnesia] Oxycodone HCl/Acetaminophen 1 tab PO PRN PRN 04/01/17 [Oxycodone-Acetaminophen 5-325] - Allergies Allergies/Adverse Reactions: Allergies Allergy/AdvReac Type Severity Reaction Status Date / Time Penicillins Allergy RASH Verified 10/25/16 14:55 Review of Systems Review Of Systems: ROS cannot be obtained secondary to pt's inabilty to answer questions. (history of dementia) Physical Exam - Reviewed Nursing Documentation Reviewed: Yes Vital Signs Reviewed: Yes - Physical Exam Head Exam: Positive for: ATRAUMATIC, NORMAL INSPECTION, NORMOCEPHALIC Skin: Positive for: Normal Color Eye Exam: Positive for: Normal appearance Neck: Positive for: Supple Cardiovascular/Chest: Positive for: Regular Rate, Rhythm Respiratory: Positive for: Normal Breath Sounds. Negative for: Respiratory Distress Extremity: Positive for: Normal ROM (able to move upper extremities without difficulty; pain upon ROM of lower extremities). Negative for: Deformity, Swelling Neurologic/Psych: Positive for: Alert, Oriented (x 1). Negative for: Motor/ Sensory Deficits (+ no gross motor/sensory deficits noted) - Laboratory Results Result Diagrams: 04/01/17 11:23 04/01/17 11:23 - ECG O2 Sat by Pulse Oximetry: 96 (RA) Medical Decision Making Medical Decision Making: Time: 1011 Impression: Multiple falls Plan: -- CT Head -- Chest x-ray -- MRI lumbar spinal canal -- MRI thoracic spinal canal -- labs Reassess Time: [address] Lara who agrees with plan. Time: 1320 Patient's son Steve, who lives in [place] was contacted and consented for the MRI scans. Renea CANDELARIO was a witness to the consent for MRI scan. Time: 1612 Due to increased duration of stay for the MRI scans, patient to be admitted to telemetry. Dr. Lara informed of updated plan and is agreeable. Patient to be admitted under Dr. Lara for Syncope, Frequent falls, Compression fracture Accession No. : [id number] Patient Name / ID : LENORA PAGAN / [id number] Exam Date : 04/01/2017 10:42:05 ( Approved ) Study Comment : Sex / Age : F / 81Y Creator : William Chua MD Dictator : William Chua MD [facility] [facility] Dentist : Flume Worker : William Chua MD Approver2 : Report Date : 04/01/2017 11:17:55 My Comment : PROCEDURE: CT HEAD WITHOUT CONTRAST. HISTORY: ? Syncope COMPARISON: CT head dated 11/05/2016. TECHNIQUE: Axial computed tomography images were obtained through the head/brain without intravenous contrast. Radiation dose: Total exam DLP = 800.8 mGy-cm. This CT exam was performed using one or more of the following dose reduction techniques: Automated exposure control, adjustment of the mA and/or kV according to patient size, and/or use of iterative reconstruction technique. FINDINGS: HEMORRHAGE: No intracranial hemorrhage. BRAIN: No mass effect or edema. Mild atrophy and chronic microvascular ischemic changes in the periventricular white matter. VENTRICLES: Unremarkable. No hydrocephalus. CALVARIUM: Unremarkable. PARANASAL SINUSES: Unremarkable as visualized. No significant inflammatory changes. MASTOID AIR CELLS: Unremarkable as visualized. No inflammatory changes. OTHER FINDINGS: None. IMPRESSION: No acute intracranial pathology. Dr. Lara to follow MRI results. Scribe Attestation: Documented by Demetra Quiros acting as a scribe for Iris Portillo MD. Provider Attestation: All medical record entries made by the Scribe were at my direction and personally dictated by me. I have reviewed the chart and agree that the record accurately reflects my personal performance of the history, physical exam, medical decision making, and the department course for this patient. I have also personally directed, reviewed, and agree with the discharge instructions and disposition. Disposition - Clinical Impression Clinical Impression: Syncope, Frequent falls, Compression fracture - Patient ED Disposition Is Patient to be Admitted: Yes - Disposition Disposition Time: 15:19 Condition: GUARDED - Pt Status Changed To: Hospital Disposition Of: Inpatient - Admit Certification Admit to Inpatient:: After my assessment, the patient will require hospitalization for at least two midnights. This is because of the severity of symptoms shown, intensity of services needed, and/or the medical risk in this patient being treated as an outpatient. - POA Present On Arrival: Falls Or Trauma
--- NOTE | 2017-04-01 10:33 | RAD ---
HISTORY: Fall COMPARISON: Chest radiograph dated 10/25/2016 FINDINGS: LUNGS: Low lung volumes. Stable chronic prominence of the bilateral interstitial markings. PLEURA: No significant pleural effusion identified, no pneumothorax apparent. CARDIOVASCULAR: Atherosclerotic aortic calcifications. Cardiomediastinal silhouette stably prominent. OSSEOUS STRUCTURES: Unchanged. Prior kyphoplasty of L3. VISUALIZED UPPER ABDOMEN: Normal. OTHER FINDINGS: None. IMPRESSION: Stable chronic prominence of the bilateral interstitial markings. No focal consolidation or pleural effusion.
--- NOTE | 2017-04-01 11:19 | CT ---
PROCEDURE: CT HEAD WITHOUT CONTRAST. HISTORY: ? Syncope COMPARISON: CT head dated 11/05/2016. TECHNIQUE: Axial computed tomography images were obtained through the head/brain without intravenous contrast. Radiation dose: Total exam DLP = 800.8 mGy-cm. This CT exam was performed using one or more of the following dose reduction techniques: Automated exposure control, adjustment of the mA and/or kV according to patient size, and/or use of iterative reconstruction technique. FINDINGS: HEMORRHAGE: No intracranial hemorrhage. BRAIN: No mass effect or edema. Mild atrophy and chronic microvascular ischemic changes in the periventricular white matter. VENTRICLES: Unremarkable. No hydrocephalus. CALVARIUM: Unremarkable. PARANASAL SINUSES: Unremarkable as visualized. No significant inflammatory changes. MASTOID AIR CELLS: Unremarkable as visualized. No inflammatory changes. OTHER FINDINGS: None. IMPRESSION: No acute intracranial pathology.
[2017-04-01 11:37] LABS: BASO % 0.7 % (0.0-2.0); EOS # 0.2 K/uL (0.0-0.7); EOS % 2.9 % (0.0-4.0); HEMATOCRIT 39.4 % (34.0-47.0); LYMPH % 20.3 % (20.0-40.0); MEAN CELL VOLUME 87.9 fl (81.0-99.0); MEAN CORPUSCULAR HEMOGLOBIN 28.1 pg (27.0-31.0); MEAN PLATELET VOLUME 9.5 fl (7.2-11.7); MONO # 0.6 K/uL (0.0-0.8); MONO % 11.7 % (0.0-10.0); NEUT # 3.3 K/uL (1.8-7.0); NEUT % 64.4 % (50.0-75.0); RED CELL DISTRIBUTION WIDTH 14.6 % (11.5-14.5); WHITE BLOOD COUNT 5.1 K/uL (4.8-10.8)
[2017-04-01 11:38] LABS: ALB/GLOB RATIO 1.3 (1.0-2.1); ALKALINE PHOSPHATASE 84 U/L (38-126); ALT/SGPT 30 U/L (9-52); AST/SGOT 21 U/L (14-36); BILIRUBIN,TOTAL 0.6 mg/dl (0.2-1.3); BLOOD UREA NITROGEN 18 mg/dl (7-17); CALCIUM 9.2 mg/dL (8.4-10.2); CARBON DIOXIDE 34 mmol/L (22-30); CHLORIDE 104 mmol/L (98-107); GFR AFRICAN-AMERICAN > 60; GLUCOSE,RANDOM 92 mg/dL (65-105); POTASSIUM 4.7 MMOL/L (3.6-5.0); SODIUM 143 mmol/l (132-148)
[2017-04-01 11:59] LABS: PARTIAL THROMBOPLASTIN TIME 29.3 Seconds (25.6-37.1)
[2017-04-01] MEDS ORDERED: Oxycodone/Acetaminophen 5/325 mg Tab PO PRN (19:02)
[2017-04-01] MEDS ORDERED: Ergocalciferol 50,000 Intl Units Cap PO SCH (19:15)
[2017-04-01] MEDS: Fluticasone-Salmeterol 500-50mcg Diskus IH SCH (22:29)
[2017-04-01] MEDS: Magnesium Hydroxide Susp 30 ml UD PO SCH (22:29)
--- NOTE | 2017-04-02 00:26 | CP.PCM.CON ---
History of Present Illness - History of Present Illness History of Present Illness: Chief Complaint (Nursing): Trauma Chief Complaint (Provider): Multiple falls History Per: Other ([facility]) History/Exam Limitations: clinical condition Additional Complaint(s): 81yo female, sent to the ED from [facility], for evaluation due to multiple falls and a recent XR which showed multiple spinal compression fractures. There is also a questionable history of a syncopal episode. A full HPI and ROS is unavailable from the patient as she has a history of dementia. She sustained a Head trauma and is suffering from Headache, Photophobia, Phonophobia, and difficulty focusing. She has unsteady gait and is suffering from urinary incontinence. She is a [facility] resident. Past Medical History Reviewed: Historical Data, Nursing Documentation, Vital Signs Vital Signs: Last Vital Signs Temp 98.2 F 04/01/17 09:56 Pulse 87 04/01/17 09:56 Resp 20 04/01/17 09:56 BP 136/70 04/01/17 09:56 Pulse Ox 96 04/01/17 17:52 - Medical History PMH: Anxiety, Arthritis (poly), Asthma, Back Problems, Dementia, Depression, Fractures (L wrist), HTN, Hypercholesterolemia, Osteoporosis, Seizures Denies: HIV, Chronic Kidney Disease - Family History Family History: States: Unknown Family Hx, CAD - Immunization History Hx Tetanus Toxoid Vaccination: No - Home Medications Home Medications: Ambulatory Orders Medication Instructions Recorded Lamotrigine [Lamictal] 25 mg PO TID 05/06/14 Duloxetine HCl 20 mg PO DAILY 11/10/15 Gabapentin [Neurontin] 100 mg PO TID 11/10/15 Levocetirizine Dihydrochloride 5 mg PO DAILY 08/05/16 [Xyzal] Meclizine HCl 12.5 mg PO TID PRN 08/05/16 Oxybutynin XL [Ditropan XL] 15 mg PO DAILY 08/05/16 Ibuprofen [Motrin Tab] 1 tab PO Q8 PRN #20 tab 09/11/16 DULoxetine [Cymbalta] 20 mg PO DAILY 10/25/16 Aspirin [Aspirin Chewable] 81 mg PO DAILY 10/29/16 Fluticasone/Salmeterol 500/50 1 puff IH Q12 puff 10/29/16 [Advair Diskus 500/50] Atorvastatin [Lipitor] 1 tab PO HS 04/01/17 Bisacodyl [Dulcolax] 1 supp NM PRN PRN 04/01/17 Calcium Carbonate/Vitamin D3 1 cap PO BID 04/01/17 [Calcium 600 + Vit D 400 Softgl] Divalproex [Depakote Sprinkles] 125 mg PO DAILY 04/01/17 Ergocalciferol (Vitamin D2) 1 cap PO QWK 04/01/17 [Vitamin D2] Loratadine [Claritin] 1 tab PO DAILY 04/01/17 Magnesium Hydroxide [Milk Of 30 ml PO HS 04/01/17 Magnesia] Oxycodone HCl/Acetaminophen 1 tab PO PRN PRN 04/01/17 [Oxycodone-Acetaminophen 5-325] - Allergies Allergies/Adverse Reactions: Allergies Allergy/AdvReac Type Severity Reaction Status Date / Time Penicillins Allergy RASH Verified 10/25/16 14:55 Review of Systems Review Of Systems: ROS cannot be obtained secondary to pt's inabilty to answer questions. (history of dementia) Physical Exam - Reviewed Nursing Documentation Reviewed: Yes Vital Signs Reviewed: Yes - Physical Exam Head Exam: Positive for: ATRAUMATIC, NORMAL INSPECTION, NORMOCEPHALIC Skin: Positive for: Normal Color Eye Exam: Positive for: Normal appearance Neck: Positive for: Supple Cardiovascular/Chest: Positive for: Regular Rate, Rhythm Respiratory: Positive for: Normal Breath Sounds. Negative for: Respiratory Distress Extremity: Positive for: Normal ROM (able to move upper extremities without difficulty; pain upon ROM of lower extremities). Negative for: Deformity, Swelling Neurologic/Psych: Positive for: Alert, Oriented (x 1). Negative for: Motor/ Sensory Deficits (+ no gross motor/sensory deficits noted) - Laboratory Results Result Diagrams: 04/01/17 11:23 04/01/17 11:23 - ECG O2 Sat by Pulse Oximetry: 96 (RA) Medical Decision Making Medical Decision Making: Time: 1011 Impression: Multiple falls Plan: -- CT Head -- Chest x-ray -- MRI lumbar spinal canal -- MRI thoracic spinal canal -- labs Patient's son Steve, who lives in [place] was contacted and consented for the MRI scans. Renea CANDELARIO was a witness to the consent for MRI scan. Time: 1612 Due to increased duration of stay for the MRI scans, patient to be admitted to telemetry. Dr. Lara informed of updated plan and is agreeable. Patient to be admitted under Dr. Lara for Syncope, Frequent falls, Compression fracture IMPRESSION of CT Brain: No acute intracranial pathology. IMPRESSION of CXR: Stable chronic prominence of the bilateral interstitial markings. No focal consolidation or pleural effusion. Past Patient History - Infectious Disease Hx of Infectious Diseases: None - Past Medical History & Family History Past Medical History?: Yes - Past Social History Smoking Status: Never Smoked - CARDIAC Hx Hypercholesterolemia: Yes Hx Hypertension: Yes - PULMONARY Hx Asthma: Yes - NEUROLOGICAL Hx Dementia: Yes Hx Seizures: Yes - HEENT Hx HEENT Problems: Yes - RENAL Hx Chronic Kidney Disease: No - ENDOCRINE/METABOLIC Hx Endocrine Disorders: Yes - HEMATOLOGICAL/ONCOLOGICAL Hx Human Immunodeficiency Virus (HIV): No - INTEGUMENTARY Hx Dermatological Problems: No - MUSCULOSKELETAL/RHEUMATOLOGICAL Hx Arthritis: Yes (poly) Hx Fractures: Yes (L wrist) Hx Osteoporosis: Yes - GASTROINTESTINAL Hx Gastrointestinal Disorders: Yes Hx Constipation: Yes - GENITOURINARY/GYNECOLOGICAL Hx Genitourinary Disorders: Yes - PSYCHIATRIC Hx Anxiety: Yes Hx Depression: Yes - SURGICAL HISTORY Hx Surgeries: Yes Hx Tubal Ligation: Yes - ANESTHESIA Hx Anesthesia: Yes Hx Anesthesia Reactions: No Hx Malignant Hyperthermia: No Meds Allergies/Adverse Reactions: Allergies Allergy/AdvReac Type Severity Reaction Status Date / Time Penicillins Allergy RASH Verified 10/25/16 14:55 - Medications Medications: Current Medications Aspirin (Aspirin Chewable) 81 mg PO DAILY [facility] Atorvastatin Calcium (Lipitor) 40 mg PO HS [facility] Last Admin: 04/01/17 22:30 Dose: 40 mg Bisacodyl (Dulcolax) 10 mg NM PRN PRN PRN Reason: Constipation Calcium/Vitamin D (Oyster Shell Calcium/Vitamin D 500 Mg-200 Iu) 1 tab PO BID [facility] Divalproex Sodium (Depakote Sprinkles) 125 mg PO DAILY [facility] Duloxetine HCl (Cymbalta) 20 mg PO DAILY [facility] Ergocalciferol (Drisdol 50,000 Intl Units Cap) 1 cap PO QWK [facility] Gabapentin (Neurontin) 100 mg PO TID [facility] Lamotrigine (Lamictal) 25 mg PO TID [facility] Loratadine (Claritin) 10 mg PO DAILY [facility] Magnesium Hydroxide (Milk Of Magnesia) 30 ml PO HS [facility] Last Admin: 04/01/17 22:29 Dose: 30 ml Meclizine HCl (Antivert) 12.5 mg PO TID PRN PRN Reason: Dizziness Oxybutynin Chloride (Ditropan Tab) 5 mg PO BID [facility] Oxycodone/Acetaminophen (Percocet 5/325 Mg Tab) 1 tab PO PRN PRN PRN Reason: Pain, moderate (4-7) Stop: 04/04/17 19:03 Fluticasone/Salmeterol (Advair Diskus 500/50) 1 puff IH Q12 [facility] Last Admin: 04/01/17 22:29 Dose: 1 puff Physical Exam - Neurological Exam Additional comments: Mental status: Awake, alert oriented to her home and knows it is in [place]. Disoriented to persons, to her children, to the President, says she is from [place]. Speech is non fluent, non coherent. Cranial Nerves II to XII: Normal equal round pupils, reactive to light. EOM are normal. No Facial Asymmetry Normal Swallowing Motor: Normal tone, generalized symmetrical weakness 5-/5 DTR are 0/4 Toes are down going Sensory: Intact Pain, touch, unable to specify more due to non cooperation. Cerebellar: Non Cooperative Results - Vital Signs Recent Vital Signs: Last Vital Signs Temp 98.8 F 04/01/17 19:15 Pulse 80 04/01/17 19:15 Resp 20 04/01/17 19:15 BP 160/78 H 04/01/17 19:15 Pulse Ox 94 L 04/01/17 19:15 - Labs Result Diagrams: 04/02/17 05:20 04/02/17 05:20 Labs: Laboratory Results - last 24 hr 04/01/17 04/01/17 04/01/17 11:23 11:23 11:23 WBC 5.1 RBC 4.48 Hgb 12.6 Hct 39.4 MCV 87.9 MCH 28.1 MCHC 32.0 L RDW 14.6 H Plt Count 135 MPV 9.5 Neut % (Auto) 64.4 Lymph % (Auto) 20.3 Faulk % (Auto) 11.7 H Eos % (Auto) 2.9 Baso % (Auto) 0.7 Neut # 3.3 Lymph # 1.0 Faulk # 0.6 Eos # 0.2 Baso # 0.0 PT 13.0 INR 1.2 APTT 29.3 Sodium 143 Potassium 4.7 Chloride 104 Carbon Dioxide 34 H Anion Gap 10 BUN 18 H Creatinine 0.5 L Est GFR ( Amer) > 60 Est GFR (Non-Af Amer) > 60 Random Glucose 92 Calcium 9.2 Total Bilirubin 0.6 AST 21 ALT 30 Alkaline Phosphatase 84 Troponin I < 0.0120 Total Protein 7.0 Albumin 4.0 Globulin 3.0 Albumin/Globulin Ratio 1.3 Valproic Acid 04/01/17 11:23 WBC RBC Hgb Hct MCV MCH MCHC RDW Plt Count MPV Neut % (Auto) Lymph % (Auto) Faulk % (Auto) Eos % (Auto) Baso % (Auto) Neut # Lymph # Faulk # Eos # Baso # PT INR APTT Sodium Potassium Chloride Carbon Dioxide Anion Gap BUN Creatinine Est GFR ( Amer) Est GFR (Non-Af Amer) Random Glucose Calcium Total Bilirubin AST ALT Alkaline Phosphatase Troponin I Total Protein Albumin Globulin Albumin/Globulin Ratio Valproic Acid < 10.0 L Assessment & Plan (1) Gait instability Assessment and Plan: This caused her Back vertebral Fractures, head trauma and Vascular Headache, R /O Temporal Arteritis, no jaws claudications. W/U for CVA, Seizures, ESR, CRP for temporal arteritis. 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 D/C Depakote and reduce Lamictal for safety until we get further informations from Dr Lara. Status: Chronic Priority: Medium (4) Osteoarthrosis involving multiple sites Assessment and Plan: Causing pain and difficulty walking. Status: Chronic Priority: High (5) Urinary incontinence Assessment and Plan: Might be related to her gait instability. Status: Acute (6) Radiculopathy Assessment and Plan: MRI LS and T spine are requested. She has Fracture vertebrae which might cause difficulty walking and back pain. Status: Acute
[2017-04-02 07:37] LABS: BASO % 0.9 % (0.0-2.0); EOS # 0.2 K/uL (0.0-0.7); EOS % 5.1 % (0.0-4.0); HEMATOCRIT 37.9 % (34.0-47.0); LYMPH # 1.2 K/uL (1.0-4.3); LYMPH % 26.8 % (20.0-40.0); MEAN CELL VOLUME 86.1 fl (81.0-99.0); MEAN CORPUSCULAR HEMOGLOBIN 28.4 pg (27.0-31.0); MEAN PLATELET VOLUME 9.4 fl (7.2-11.7); MONO # 0.6 K/uL (0.0-0.8); MONO % 12.9 % (0.0-10.0); NEUT # 2.4 K/uL (1.8-7.0); NEUT % 54.3 % (50.0-75.0); NRBC % 0.1 % (0.0-0.0); RED CELL DISTRIBUTION WIDTH 14.1 % (11.5-14.5); WHITE BLOOD COUNT 4.4 K/uL (4.8-10.8)
[2017-04-02 07:53] LABS: ALB/GLOB RATIO 1.1 (1.0-2.1); ALKALINE PHOSPHATASE 90 U/L (38-126); ALT/SGPT 29 U/L (9-52); AST/SGOT 19 U/L (14-36); BILIRUBIN,TOTAL 0.9 mg/dl (0.2-1.3); BLOOD UREA NITROGEN 10 mg/dl (7-17); CALCIUM 9.2 mg/dL (8.4-10.2); CARBON DIOXIDE 29 mmol/L (22-30); CHLORIDE 105 mmol/L (98-107); CHOLESTEROL 121 mg/dL (0-199); GFR AFRICAN-AMERICAN > 60; GLUCOSE,RANDOM 90 mg/dL (65-105); POTASSIUM 3.6 MMOL/L (3.6-5.0); SODIUM 142 mmol/l (132-148); TOTAL PROTEIN 6.9 G/DL (6.3-8.2)
[2017-04-02 08:00] LABS: T4 6.95 ug/dl (5.5-11.0)
[2017-04-02 08:13] LABS: THYROID STIMULATING HORMONE 1.79 mIU/ML (0.46-4.68)
[2017-04-02] MEDS ORDERED: Divalproex 125 mg Sprinkle Capsule PO SCH (09:00)
[2017-04-02] MEDS: Calcium-Vit D 500 mg-200 Units Tab UD PO SCH ×2 (09:44→17:38)
[2017-04-02] MEDS: Fluticasone-Salmeterol 500-50mcg Diskus IH SCH ×2 (09:46→21:23)
--- NOTE | 2017-04-02 10:16 | CARD ---
APPROVED REPORT EKG Measurement Heart [id number] <Conclusion> Normal sinus rhythm Normal ECG
--- NOTE | 2017-04-02 13:55 | CP.PCM.HP ---
History of Present Illness - History of Present Illness History of Present Illness: CC: Trauma 2nd to fall. 81 y/o F, Hx of Dementia, Seizure, resident at [facility], brought to ER Jc GILBERT after sustained a fall and trauma in the [place] on DOA, c/o of multiple sites pain with no relief. Patient is Demented , unable to get a history from Patient , Syncope? . 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 Worsening symptoms: Previous L-S X Ray at the [place] showing Multiple spinal compression Fxs. Aggravated factor: Movements, change of positions, unable to ambulate. No: Fever, chills, n/v/d, abdominal pain, CP, palpitations, SOB, cough, sick contact. Present on Admission - Present on Admission Any Indicators Present on Admission: No Review of Systems - Review of Systems Systems not reviewed;Unavailable: Acuity of Condition, Dementia, Other ( Inability to answer questions.) Past Patient History - Infectious Disease Hx of Infectious Diseases: None - Past Medical History & Family History Past Medical History?: Yes Pertinent Family History: Unknown - Past Social History Smoking Status: Never Smoked Alcohol: None Drugs: Denies Home Situation {Lives}: Correction - CARDIAC Hx Cardiac Disorders: Yes Hx Hypercholesterolemia: Yes Hx Hypertension: Yes - PULMONARY Hx Respiratory Disorders: Yes Hx Asthma: Yes - NEUROLOGICAL Hx Neurological Disorder: Yes Hx Dementia: Yes Hx Seizures: Yes - HEENT Hx HEENT Problems: Yes (Requires corrective lenses) Hx Deafness: Yes (Decreasd hearing left) - RENAL Hx Chronic Kidney Disease: No - ENDOCRINE/METABOLIC Hx Endocrine Disorders: Yes - HEMATOLOGICAL/ONCOLOGICAL Hx Blood Disorders: No Hx Human Immunodeficiency Virus (HIV): No - INTEGUMENTARY Hx Dermatological Problems: No - MUSCULOSKELETAL/RHEUMATOLOGICAL Hx Musculoskeletal Disorders: Yes Hx Arthritis: Yes (poly) Hx Falls: Yes Hx Fractures: Yes (L wrist) Hx Osteoporosis: Yes - GASTROINTESTINAL Hx Gastrointestinal Disorders: Yes Hx Constipation: Yes - GENITOURINARY/GYNECOLOGICAL Hx Genitourinary Disorders: Yes Hx Incontinence: Yes - PSYCHIATRIC Hx Psychophysiologic Disorder: Yes Hx Anxiety: Yes Hx Depression: Yes Hx Substance Use: No - SURGICAL HISTORY Hx Surgeries: Yes Hx Tubal Ligation: Yes - ANESTHESIA Hx Anesthesia: Yes Hx Anesthesia Reactions: No Hx Malignant Hyperthermia: No Meds Allergies/Adverse Reactions: Allergies Allergy/AdvReac Type Severity Reaction Status Date / Time Penicillins Allergy RASH Verified 10/25/16 14:55 Physical Exam - Constitutional Appears: No Acute Distress, Chronically Ill - Head Exam Head Exam: NORMAL INSPECTION - Eye Exam Eye Exam: PERRL - ENT Exam Additional comments: Hard of hearing Left ear - Neck Exam Neck exam: Positive for: Normal Inspection - Respiratory Exam Respiratory Exam: NORMAL BREATHING PATTERN - Cardiovascular Exam Cardiovascular Exam: REGULAR RHYTHM - GI/Abdominal Exam GI & Abdominal Exam: Normal Bowel Sounds, Soft - Extremities Exam Additional comments: Bruising BLE knees and LLE, decreased ROM LLE 2nd to fall, deformity L wrist ( previous Fx) - Back Exam Back exam: tenderness (L-S with redness.) - Neurological Exam Additional comments: Oriented x1, confused, disoriented, obeys commands, no focal motor/sensory deficit - Psychiatric Exam Psychiatric exam: Anxious, Depressed - Skin Skin Exam: Warm Results - Vital Signs Recent Vital Signs: Last Vital Signs Temp 97.8 F 04/02/17 13:00 Pulse 77 04/02/17 13:00 Resp 18 04/02/17 13:00 BP 125/77 04/02/17 13:00 Pulse Ox 95 04/02/17 13:00 reviewed Roderick - Labs Result Diagrams: 04/02/17 05:20 04/02/17 05:20 Labs: Laboratory Results - last 24 hr 04/02/17 04/02/17 04/02/17 05:16 05:20 05:20 WBC 4.4 L RBC 4.40 Hgb 12.5 Hct 37.9 MCV 86.1 MCH 28.4 MCHC 33.0 RDW 14.1 Plt Count 106 L D MPV 9.4 Neut % (Auto) 54.3 Lymph % (Auto) 26.8 Cross % (Auto) 12.9 H Eos % (Auto) 5.1 H Baso % (Auto) 0.9 Neut # 2.4 Lymph # 1.2 Cross # 0.6 Eos # 0.2 Baso # 0.0 ESR Sodium 142 Potassium 3.6 Chloride 105 Carbon Dioxide 29 Anion Gap 12 BUN 10 Creatinine 0.4 L Est GFR ( Amer) > 60 Est GFR (Non-Af Amer) > 60 POC Glucose (mg/dL) 94 Random Glucose 90 Calcium 9.2 Total Bilirubin 0.9 AST 19 ALT 29 Alkaline Phosphatase 90 Ammonia Total Protein 6.9 Albumin 3.6 Globulin 3.2 Albumin/Globulin Ratio 1.1 Triglycerides 52 Cholesterol 121 LDL Cholesterol Direct 55 HDL Cholesterol 46 Vitamin B12 Thyroxine (T4) 6.95 TSH 3rd Generation 1.79 04/02/17 04/02/17 04/02/17 05:20 05:20 05:20 WBC RBC Hgb Hct MCV MCH MCHC RDW Plt Count MPV Neut % (Auto) Lymph % (Auto) Cross % (Auto) Eos % (Auto) Baso % (Auto) Neut # Lymph # Cross # Eos # Baso # ESR 15 Sodium Potassium Chloride Carbon Dioxide Anion Gap BUN Creatinine Est GFR ( Amer) Est GFR (Non-Af Amer) POC Glucose (mg/dL) Random Glucose Calcium Total Bilirubin AST ALT Alkaline Phosphatase Ammonia 35 Total Protein Albumin Globulin Albumin/Globulin Ratio Triglycerides Cholesterol LDL Cholesterol Direct HDL Cholesterol Vitamin B12 233 L Thyroxine (T4) TSH 3rd Generation 04/02/17 11:02 WBC RBC Hgb Hct MCV MCH MCHC RDW Plt Count MPV Neut % (Auto) Lymph % (Auto) Cross % (Auto) Eos % (Auto) Baso % (Auto) Neut # Lymph # Cross # Eos # Baso # ESR Sodium Potassium Chloride Carbon Dioxide Anion Gap BUN Creatinine Est GFR ( Amer) Est GFR (Non-Af Amer) POC Glucose (mg/dL) 157 H Random Glucose Calcium Total Bilirubin AST ALT Alkaline Phosphatase Ammonia Total Protein Albumin Globulin Albumin/Globulin Ratio Triglycerides Cholesterol LDL Cholesterol Direct HDL Cholesterol Vitamin B12 Thyroxine (T4) TSH 3rd Generation reviewed J.P. - EKG Data EKG comments: reviewed J.P. - Imaging and Cardiology Chest x-ray Status: Report reviewed by me (J.P.) Assessment & Plan (1) Spinal compression fracture Status: Acute Priority: High Comment: Multiple (2) Dementia Status: Acute (3) Syncope Status: Acute Priority: High Comment: Possible (4) Frequent falls Status: Acute (5) Back pain Status: Acute Priority: High (6) Generalized weakness Status: Chronic Priority: High (7) Seizure disorder Status: Chronic Priority: Medium (8) Dyslipidemia Status: Chronic Priority: Medium (9) Gait instability Status: Chronic Priority: High (10) Osteoarthrosis involving multiple sites Status: Chronic Priority: High (11) Seizure Status: Chronic Priority: Medium (12) Asthma Status: Chronic Priority: Low (13) Depression with anxiety Status: Chronic Priority: Medium - Assessment and Plan (Free Text) Plan: F/U Hgb A1C, Carotid/Vert U-S, Brain MRI, Spinal MRI Lumbar/Thoracic, Echo, EEG , continue with Percocet, Neurontin, Lipitor, Advair, Vit A,D and rest of Tx. Neurology consult appreciated, Cardiology consult. - Date & Time Date: 04/02/17 Time: 13:50
[2017-04-02 17:35] LABS: FOLATE 9.6 ng/mL
[2017-04-02] MEDS: Magnesium Hydroxide Susp 30 ml UD PO SCH (21:26)
[2017-04-03] MEDS: Calcium-Vit D 500 mg-200 Units Tab UD PO SCH ×2 (08:50→17:00)
[2017-04-03] MEDS: Fluticasone-Salmeterol 500-50mcg Diskus IH SCH ×2 (08:52→21:35)
[2017-04-03 12:49] LABS: RBC URINE 1 /hpf (0-3); URINE BACTERIA RARE (<OCC); URINE BILIRUBIN NEGATIVE (NEGATIVE); URINE BLOOD NEGATIVE (NEGATIVE); URINE COLOR YELLOW (YELLOW); URINE GLUCOSE (UA) NEG (Normal); URINE KETONE NEGATIVE (NEGATIVE); URINE LEUKOCYTE ESTERASE TRACE Leu/uL (Negative); URINE PROTEIN NEGATIVE (NEGATIVE); WBC URINE 6 /hpf (0-5)
--- NOTE | 2017-04-03 14:59 | CP.PCM.PN ---
Subjective - Date & Time of Evaluation Date of Evaluation: 04/03/17 Time of Evaluation: 12:40 - Subjective Subjective: F/U Syncope/Trauma. Pt confused, c/o of back pain and generalized joint pain . Objective - Vital Signs/Intake and Output Vital Signs (last 24 hours): Temp Pulse Resp BP Pulse Ox 98.7 F 62 20 145/73 95 04/03/17 09:00 04/03/17 09:00 04/03/17 09:00 04/03/17 09:00 04/03/17 09:00 - Medications Medications: Current Medications Aspirin (Aspirin Chewable) 81 mg PO DAILY [facility] Last Admin: 04/03/17 08:51 Dose: 81 mg Atorvastatin Calcium (Lipitor) 40 mg PO HS [facility] Last Admin: 04/02/17 21:23 Dose: 40 mg Bisacodyl (Dulcolax) 10 mg [place] PRN PRN PRN Reason: Constipation Calcium/Vitamin D (Oyster Shell Calcium/Vitamin D 500 Mg-200 Iu) 1 tab PO BID [facility] Last Admin: 04/03/17 08:50 Dose: 1 tab Cyanocobalamin (Vitamin B12 1000 Mcg/Ml Inj) 1,000 mcg IM DAILY [facility] Last Admin: 04/03/17 08:51 Dose: 1,000 mcg Duloxetine HCl (Cymbalta) 20 mg PO DAILY [facility] Last Admin: 04/03/17 08:50 Dose: 20 mg Ergocalciferol (Drisdol 50,000 Intl Units Cap) 1 cap PO QWK [facility] Gabapentin (Neurontin) 100 mg PO TID [facility] Last Admin: 04/03/17 08:50 Dose: 100 mg Lamotrigine (Lamictal) 25 mg PO BID [facility] Last Admin: 04/03/17 08:51 Dose: 25 mg Loratadine (Claritin) 10 mg PO DAILY [facility] Last Admin: 04/03/17 08:51 Dose: 10 mg Magnesium Hydroxide (Milk Of Magnesia) 30 ml PO HS [facility] Last Admin: 04/02/17 21:26 Dose: 30 ml Meclizine HCl (Antivert) 12.5 mg PO TID PRN PRN Reason: Dizziness Oxybutynin Chloride (Ditropan Tab) 5 mg PO BID [facility] Last Admin: 04/03/17 08:50 Dose: 5 mg Oxycodone/Acetaminophen (Percocet 5/325 Mg Tab) 1 tab PO PRN PRN PRN Reason: Pain, moderate (4-7) Stop: 04/04/17 19:03 Last Admin: 04/02/17 15:25 Dose: 1 tab Fluticasone/Salmeterol (Advair Diskus 500/50) 1 puff IH Q12 [facility] Last Admin: 04/03/17 08:52 Dose: 1 puff - Labs Labs: 04/02/17 05:20 04/02/17 05:20 PT 13.0 Seconds (9.8-13.1) 04/01/17 11:23 INR 1.2 (0.9-1.2) 04/01/17 11:23 APTT 29.3 Seconds (25.6-37.1) 04/01/17 11:23 - Constitutional Appears: No Acute Distress, Chronically Ill - Eye Exam Eye Exam: Normal appearance, PERRL - ENT Exam ENT Exam: Normal Oropharynx Additional comments: Hard of hearing on left - Neck Exam Neck Exam: Normal Inspection - Respiratory Exam Respiratory Exam: NORMAL BREATHING PATTERN - Cardiovascular Exam Cardiovascular Exam: REGULAR RHYTHM - GI/Abdominal Exam GI & Abdominal Exam: Soft, Normal Bowel Sounds - Extremities Exam Additional comments: Bruising BLE knees and LLE, decreased ROM 2nd to LLE 2nd to fall, deformity L wrist from previous Fx. - Back Exam Back Exam: tenderness (L-S with redness) - Neurological Exam Neurological Exam: Awake Additional comments: Oriented x1, confused, disoriented, obeys commands, no focal motor/sensory deficit. - Psychiatric Exam Psychiatric exam: Anxious, Depressed - Skin Skin Exam: Warm Assessment and Plan (1) Spinal compression fracture Status: Acute (2) Dementia Status: Acute (3) Syncope Status: Acute (4) Frequent falls Status: Acute (5) Back pain Status: Acute (6) Generalized weakness Status: Chronic (7) Seizure disorder Status: Chronic (8) Dyslipidemia Status: Chronic (9) Gait instability Status: Chronic (10) Osteoarthrosis involving multiple sites Status: Chronic (11) Seizure Status: Chronic (12) Asthma Status: Chronic (13) Depression with anxiety Status: Chronic - Assessment and Plan (Free Text) Plan: Pt did not have MRI of Brain and EGG, as per nurae information she was uncooperative at time of procedures, she had Carotid U-S but not completed, continue Percocet, Neurontin and rest of Tx, f/u PT eval.
--- NOTE | 2017-04-03 18:14 | MRI ---
PROCEDURE: MRI lumbar spine dated 04/01/2017. HISTORY: Status post fall COMPARISON: Comparison made with prior CT scan lumbar spine dated 09/11/2016. TECHNIQUE: Multiecho multiplanar sequences were performed through the lumbar spine without the use of intravenous contrast. Note this examination is limited by motion artifact. FINDINGS: Re- demonstrated is chronic appearing compression deformity of the L3 segment with the dark signal in the center of the vertebral body consistent with kyphoplasty cement seen to better advantage on prior CT scan. There is also chronic anterior wedge compression deformity of the T12 segment with bowing of the posterior cortex. Chronic endplate compression fractures of the superior L2 and to a lesser degree L1 segments. There is a chronic anterior wedge compression fracture of the T11 segment and T10 segments as well. All of these changes result in and increased kyphosis in the lower thoracic region. At the L5-S1 level, there is disc desiccation and mild posterior disc space narrowing. No disc herniation or significant disc bulge. Facets are mildly hypertrophic. The overall central canal appears adequate. Exit foramina appear marginal to adequate. At the L4-L5 level, there is disc desiccation and mild posterior disc space narrowing is well. Small broad-based disc bulge ridge complex results in some flattening the ventral surface of the thecal sac. Facet joints are hypertrophic . Overall central canal appears adequate. Exit foramina appear marginal to minimally narrowed due to encroaching disc and facet joint changes. At the L3-L4 level, there is disc desiccation and minor broad-based bulge of the posterior annulus which extends into the proximal inferior margins of the exit foramina more so on the left than right. Facets also hypertrophic. Some minimal flattening of the ventral surface of the thecal sac however the overall central canal appears adequate. Exit foramina appear narrowed bilaterally more so on the left. At the L2-L3 level, there is disc desiccation. Disc space height maintained. No disc herniation no significant disc bulge. Facet joints are mildly hypertrophic. Central canal appears adequate. Exit foramina appear adequate as well. At the at L1-L2 level there is disc desiccation. No disc herniation or significant disc bulge. The overall central canal appears adequate. Facets are mildly hypertrophic. Exit foramina appear adequate. At the T12-L1 level, there is disc space narrowing with minimal of retropulsion of the posterior inferior corner of the T12 and at posterior superior corner of the L1 segment. There is minor focal compression of the ventral surface of the thecal sac however no significant canal compromise nor compression of the lower thoracic spinal cord. . Note that axial images have not been placed at this level. Conus is somewhat low lying terminating at the lower L2 level. OTHER FINDINGS: Note also made of a tiny cortical cyst left kidney. IMPRESSION: There are multiple chronic compression fractures most significantly affecting the T12 and T11 segments with some posterior cortical bowing of the T12 segment and increased kyphosis. . No evidence of significant central canal stenosis. The minor bilateral foraminal narrowing noted at the L4-L5 and L3-L4 levels.
--- NOTE | 2017-04-03 21:32 | CP.PCM.PN ---
Subjective - Date & Time of Evaluation Date of Evaluation: 04/03/17 Time of Evaluation: 20:10 - Subjective Subjective: No change in her condition. She has severe back pain, disorientation, confusion. She was unable to stay still for her MRI Brain or other tests. No seizures were seen or documented. IMPRESSION of MRI of the Lumbar spine: There are multiple chronic compression fractures most significantly affecting the T12 and T11 segments with some posterior cortical bowing of the T12 segment and increased kyphosis. . No evidence of significant central canal stenosis. The minor bilateral foraminal narrowing noted at the L4-L5 and L3-L4 levels. There are no seizures. She is on Lamictal 25 mg Q 12hrs After a week from starting lamictal we will increase Lamictal to 50 mg Q 12hrs X 2 weeks, then 100 mg Q12 Hrs X 1 week Then 150 mg Q 12hrs Maximum dose is 250 mg Q 12hrs, in similar weekly increments Awaiting for EEG results and Carotid Doppler results. Normal VS. Lab Work is seen. She has Vitamin D deficiency and is receiving replacement. Objective - Vital Signs/Intake and Output Vital Signs (last 24 hours): Temp Pulse Resp BP Pulse Ox 98.3 F 86 18 132/65 98 04/03/17 20:00 04/03/17 20:00 04/03/17 20:00 04/03/17 20:00 04/03/17 20:00 - Medications Medications: Current Medications Aspirin (Aspirin Chewable) 81 mg PO DAILY [facility] Last Admin: 04/03/17 08:51 Dose: 81 mg Atorvastatin Calcium (Lipitor) 40 mg PO HS [facility] Last Admin: 04/02/17 21:23 Dose: 40 mg Bisacodyl (Dulcolax) 10 mg [place] PRN PRN PRN Reason: Constipation Calcium/Vitamin D (Oyster Shell Calcium/Vitamin D 500 Mg-200 Iu) 1 tab PO BID [facility] Last Admin: 04/03/17 17:00 Dose: 1 tab Cyanocobalamin (Vitamin B12 1000 Mcg/Ml Inj) 1,000 mcg IM DAILY [facility] Last Admin: 04/03/17 08:51 Dose: 1,000 mcg Duloxetine HCl (Cymbalta) 20 mg PO DAILY [facility] Last Admin: 04/03/17 08:50 Dose: 20 mg Ergocalciferol (Drisdol 50,000 Intl Units Cap) 1 cap PO QWK [facility] Gabapentin (Neurontin) 100 mg PO TID [facility] Last Admin: 04/03/17 17:00 Dose: 100 mg Lamotrigine (Lamictal) 25 mg PO BID [facility] Last Admin: 04/03/17 17:00 Dose: 25 mg Loratadine (Claritin) 10 mg PO DAILY [facility] Last Admin: 04/03/17 08:51 Dose: 10 mg Magnesium Hydroxide (Milk Of Magnesia) 30 ml PO HS [facility] Last Admin: 04/02/17 21:26 Dose: 30 ml Meclizine HCl (Antivert) 12.5 mg PO TID PRN PRN Reason: Dizziness Oxybutynin Chloride (Ditropan Tab) 5 mg PO BID [facility] Last Admin: 04/03/17 17:00 Dose: 5 mg Oxycodone/Acetaminophen (Percocet 5/325 Mg Tab) 1 tab PO PRN PRN PRN Reason: Pain, moderate (4-7) Stop: 04/04/17 19:03 Last Admin: 04/02/17 15:25 Dose: 1 tab Fluticasone/Salmeterol (Advair Diskus 500/50) 1 puff IH Q12 [facility] Last Admin: 04/03/17 08:52 Dose: 1 puff - Labs Labs: 04/02/17 05:20 04/02/17 05:20 PT 13.0 Seconds (9.8-13.1) 04/01/17 11:23 INR 1.2 (0.9-1.2) 04/01/17 11:23 APTT 29.3 Seconds (25.6-37.1) 04/01/17 11:23 Assessment and Plan (1) Gait instability Status: Chronic (2) Back pain Status: Acute (3) Seizure Status: Chronic (4) Osteoarthrosis involving multiple sites Status: Chronic (5) Urinary incontinence Status: Acute (6) Radiculopathy Status: Acute
[2017-04-03] MEDS: Magnesium Hydroxide Susp 30 ml UD PO SCH (21:38)
[2017-04-04] MEDS: Calcium-Vit D 500 mg-200 Units Tab UD PO SCH ×2 (09:09→16:54)
[2017-04-04] MEDS: Fluticasone-Salmeterol 500-50mcg Diskus IH SCH ×2 (09:11→23:24)
--- NOTE | 2017-04-04 11:30 | PQF GENQUE ---
Dr. Lara, Please clarify the cause of Spinal compression fracture: i.e. Cause: Traumatic Traumatic compression fracture Traumatic fracture Nontraumatic Chronic fracture Nontraumatic compression fracture Secondary to Osteoporosis Secondary to malignancy Insufficiency Spontaneous Stress fracture Pathological fracture (specify cause) Other (please specify) Clinically unable to determine Unknown ER note; 81yo female, sent to the ED from [facility], for evaluation due to multiple falls and a recent XR which showed multiple spinal compression fractures. H and P: to ER [facility], [place] after sustained a fall and trauma in the [place] on [place]A, c/o of multiple sites pain with no relief. . 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 include : (1) Spinal compression fracture Status: Acute Priority: High Comment: Multiple MRI: Imp: There are multiple chronic compression fractures most significantly affecting the T12 and T11 segments with some posterior cortical bowing of the T12 segment and increased kyphosis. . No evidence of significant central canal stenosis. The minor bilateral foraminal narrowing noted at the L4-L5 and L3-L4 levels This form is a permanent part of the medical record Clarification of your documentation is requested to better reflect the severity of illness and intensity of treatment of your patient. Indicators present [] Specify: [] [] Specify: [] [] Specify: [] [] Specify: [] Location in the medical record that reflects the above clinical findings: [] Treatment Provided: [] PHYSICIAN'S RESPONSE Based on your medical judgment of the clinical indicators outlined above please clarify the following: [] Practitioner response [] If unable to determine, please check the box, sign and date. Present On Admission (POA) Indicator: [] Present at the time of admission [] Not present at the time of admission [] Clinically Undetermined In responding to this query, please exercise your independent professional judgment. The fact that a question is asked does not imply that any particular answer is desired or expected. Thank you for your clarification on this documentation. If you have any questions please call. * Thank you, Maxine Licea RN ext. #[phone] MTDD
--- NOTE | 2017-04-04 11:38 | PQF GENQUE ---
Dr. Lara, Etiology of Syncope? if known after the work up is completed OR: Unable to determine OR: Unknown 04/03 Attending progress note: Assessment : Pt did not have MRI of Brain and EGG , as per the nurse : she was uncooperative at time of procedures, she had Carotid U-S but not completed 04/[address]: Impression : No acute intracranial pathology. This form is a permanent part of the medical record Clarification of your documentation is requested to better reflect the severity of illness and intensity of treatment of your patient. Indicators present [] Specify: [] [] Specify: [] [] Specify: [] [] Specify: [] Location in the medical record that reflects the above clinical findings: [] Treatment Provided: [] PHYSICIAN'S RESPONSE Based on your medical judgment of the clinical indicators outlined above please clarify the following: [] Practitioner response [] If unable to determine, please check the box, sign and date. Present On Admission (POA) Indicator: [] Present at the time of admission [] Not present at the time of admission [] Clinically Undetermined In responding to this query, please exercise your independent professional judgment. The fact that a question is asked does not imply that any particular answer is desired or expected. Thank you for your clarification on this documentation. If you have any questions please call. * Thank you, Maxine Licea RN ext. #[phone] MTDD
--- NOTE | 2017-04-04 16:37 | CP.PCM.PN ---
Subjective - Date & Time of Evaluation Date of Evaluation: 04/04/17 Time of Evaluation: 11:00 - Subjective Subjective: F/U Syncope/Trauma Pt confused, c/o of generalized joint and back pain. Objective - Vital Signs/Intake and Output Vital Signs (last 24 hours): Temp Pulse Resp BP Pulse Ox 98.3 F 91 H 20 117/74 95 04/04/17 13:20 04/04/17 13:20 04/04/17 13:20 04/04/17 13:20 04/04/17 13:20 - Medications Medications: Current Medications Aspirin (Aspirin Chewable) 81 mg PO DAILY [facility] Last Admin: 04/04/17 09:09 Dose: 81 mg Atorvastatin Calcium (Lipitor) 40 mg PO HS [facility] Last Admin: 04/03/17 21:35 Dose: 40 mg Bisacodyl (Dulcolax) 10 mg [place] PRN PRN PRN Reason: Constipation Calcium/Vitamin D (Oyster Shell Calcium/Vitamin D 500 Mg-200 Iu) 1 tab PO BID [facility] Last Admin: 04/04/17 09:09 Dose: 1 tab Cyanocobalamin (Vitamin B12 1000 Mcg/Ml Inj) 1,000 mcg IM DAILY [facility] Last Admin: 04/04/17 09:10 Dose: 1,000 mcg Duloxetine HCl (Cymbalta) 20 mg PO DAILY [facility] Last Admin: 04/04/17 09:09 Dose: 20 mg Ergocalciferol (Drisdol 50,000 Intl Units Cap) 1 cap PO QWK [facility] Gabapentin (Neurontin) 100 mg PO TID [facility] Last Admin: 04/04/17 15:53 Dose: Not Given Lamotrigine (Lamictal) 25 mg PO BID [facility] Last Admin: 04/04/17 09:10 Dose: 25 mg Loratadine (Claritin) 10 mg PO DAILY [facility] Last Admin: 04/04/17 09:09 Dose: 10 mg Magnesium Hydroxide (Milk Of Magnesia) 30 ml PO HS [facility] Last Admin: 04/03/17 21:38 Dose: Not Given Meclizine HCl (Antivert) 12.5 mg PO TID PRN PRN Reason: Dizziness Oxybutynin Chloride (Ditropan Tab) 5 mg PO BID [facility] Last Admin: 04/04/17 09:10 Dose: 5 mg Oxycodone/Acetaminophen (Percocet 5/325 Mg Tab) 1 tab PO PRN PRN PRN Reason: Pain, moderate (4-7) Stop: 04/04/17 19:03 Last Admin: 04/02/17 15:25 Dose: 1 tab Fluticasone/Salmeterol (Advair Diskus 500/50) 1 puff IH Q12 [facility] Last Admin: 04/04/17 09:11 Dose: 1 puff - Labs Labs: 04/02/17 05:20 04/02/17 05:20 PT 13.0 Seconds (9.8-13.1) 04/01/17 11:23 INR 1.2 (0.9-1.2) 04/01/17 11:23 APTT 29.3 Seconds (25.6-37.1) 04/01/17 11:23 - Constitutional Appears: No Acute Distress, Chronically Ill - Head Exam Head Exam: NORMAL INSPECTION - Eye Exam Eye Exam: PERRL - ENT Exam Additional comments: Hard of hear on left - Neck Exam Neck Exam: Normal Inspection - Respiratory Exam Respiratory Exam: NORMAL BREATHING PATTERN - Cardiovascular Exam Cardiovascular Exam: REGULAR RHYTHM - GI/Abdominal Exam GI & Abdominal Exam: Soft, Normal Bowel Sounds - Extremities Exam Additional comments: Bruising BLE, decreased ROM from fall, deformity L wrist from previous Fx. - Back Exam Back Exam: tenderness (L-S) - Neurological Exam Neurological Exam: Awake Additional comments: Confused, disoriented, obeys commands, no focal motor/sensory deficit. - Psychiatric Exam Psychiatric exam: Anxious, Depressed - Skin Skin Exam: Warm Assessment and Plan (1) Spinal compression fracture Status: Acute (2) Dementia Status: Acute (3) Syncope Status: Acute (4) Frequent falls Status: Acute (5) Back pain Status: Acute (6) Generalized weakness Status: Chronic (7) Seizure disorder Status: Chronic (8) Dyslipidemia Status: Chronic (9) Gait instability Status: Chronic (10) Osteoarthrosis involving multiple sites Status: Chronic (11) Seizure Status: Chronic (12) Asthma Status: Chronic (13) Depression with anxiety Status: Chronic - Assessment and Plan (Free Text) Plan: F/U MRI Brain result, for EGG, PT eval.
--- NOTE | 2017-04-04 16:44 | CP.PCM.CON ---
History of Present Illness - History of Present Illness History of Present Illness: Consultation requested for syncope HPI: 81-year-old female who was transferred from [facility] emergency of recurrent multiple falls and possible episode of syncope. A recent x-ray showed multiple spinal compression fractures and per records from the custodial there was an episode recorded on possible syncopal episode. Patient unable to provide any meaningful history. Most of the information obtained via review of medical records and through the EMR. Past medical history as stated above significant for anxiety arthritis asthma dementia depression fractures hypertension hyperlipidemia osteoporosis seizures. Family history noncontributory. Medications Lamotrigine 25 mg p.o. 3 times daily duloxetine 20 mg p.o. daily Neurontin 100 mg p.o. 3 times daily levocetirizine 5 mg p.o. daily meclizine 12.5 mg p.o. 3 times daily Ditropan XL 50 mg p.o. daily Motrin tablets 1 tablet every 8 hours Cymbalta 20 mg p.o. daily aspirin 81 mg p.o. daily salmeterol Advair Diskus Lipitor Dulcolax calcium vitamin D Depakote Claritin milk of magnesia. Allergies patient is allergic to penicillin and documented episode of rash review of systems as stated above in HPI all other systems reviewed were negative. Patient underwent a CT head MRI lumbosacral spine and MRI thoracic spinal canal. Review of Systems - Review of Systems Systems not reviewed;Unavailable: Acuity of Condition - Constitutional Constitutional: As Per HPI - EENT Eyes: As Per HPI Ears: As Per HPI Nose/Mouth/Throat: As Per HPI - Breasts Breasts: As Per HPI - Cardiovascular Cardiovascular: As Per HPI - Respiratory Respiratory: As Per HPI - Gastrointestinal Gastrointestinal: As Per HPI - Genitourinary Genitourinary: As Per HPI - Reproductive: Female Reproductive:Female: As Per HPI - Menstruation Menstruation: As Per HPI - Musculoskeletal Musculoskeletal: As Per HPI - Integumentary Integumentary: As Per HPI - Neurological Neurological: As Per HPI - Psychiatric Psychiatric: As Per HPI - Endocrine Endocrine: As Per HPI - Hematologic/Lymphatic Hematologic: As Per HPI Past Patient History - Infectious Disease Hx of Infectious Diseases: None - Past Medical History & Family History Past Medical History?: Yes - Past Social History Smoking Status: Never Smoked - CARDIAC Hx Hypercholesterolemia: Yes Hx Hypertension: Yes - PULMONARY Hx Asthma: Yes - NEUROLOGICAL Hx Dementia: Yes Hx Seizures: Yes - HEENT Hx HEENT Problems: Yes - RENAL Hx Chronic Kidney Disease: No - ENDOCRINE/METABOLIC Hx Endocrine Disorders: Yes - HEMATOLOGICAL/ONCOLOGICAL Hx Human Immunodeficiency Virus (HIV): No - INTEGUMENTARY Hx Dermatological Problems: No - MUSCULOSKELETAL/RHEUMATOLOGICAL Hx Arthritis: Yes (poly) Hx Fractures: Yes (L wrist) Hx Osteoporosis: Yes - GASTROINTESTINAL Hx Gastrointestinal Disorders: Yes Hx Constipation: Yes - GENITOURINARY/GYNECOLOGICAL Hx Genitourinary Disorders: Yes - PSYCHIATRIC Hx Anxiety: Yes Hx Depression: Yes - SURGICAL HISTORY Hx Surgeries: Yes Hx Tubal Ligation: Yes - ANESTHESIA Hx Anesthesia: Yes Hx Anesthesia Reactions: No Hx Malignant Hyperthermia: No Meds Allergies/Adverse Reactions: Allergies Allergy/AdvReac Type Severity Reaction Status Date / Time Penicillins Allergy RASH Verified 10/25/16 14:55 - Medications Medications: Current Medications Aspirin (Aspirin Chewable) 81 mg PO DAILY [facility] Last Admin: 04/04/17 09:09 Dose: 81 mg Atorvastatin Calcium (Lipitor) 40 mg PO [facility] Last Admin: 04/03/17 21:35 Dose: 40 mg Bisacodyl (Dulcolax) 10 mg [place] PRN PRN PRN Reason: Constipation Calcium/Vitamin D (Oyster Shell Calcium/Vitamin D 500 Mg-200 Iu) 1 tab PO BID [facility] Last Admin: 04/04/17 09:09 Dose: 1 tab Cyanocobalamin (Vitamin B12 1000 Mcg/Ml Inj) 1,000 mcg IM DAILY [facility] Last Admin: 04/04/17 09:10 Dose: 1,000 mcg Duloxetine HCl (Cymbalta) 20 mg PO DAILY [facility] Last Admin: 04/04/17 09:09 Dose: 20 mg Ergocalciferol (Drisdol 50,000 Intl Units Cap) 1 cap PO QWK [facility] Gabapentin (Neurontin) 100 mg PO TID [facility] Last Admin: 04/04/17 15:53 Dose: Not Given Lamotrigine (Lamictal) 25 mg PO BID [facility] Last Admin: 04/04/17 09:10 Dose: 25 mg Loratadine (Claritin) 10 mg PO DAILY [facility] Last Admin: 04/04/17 09:09 Dose: 10 mg Magnesium Hydroxide (Milk Of Magnesia) 30 ml PO HS [facility] Last Admin: 04/03/17 21:38 Dose: Not Given Meclizine HCl (Antivert) 12.5 mg PO TID PRN PRN Reason: Dizziness Oxybutynin Chloride (Ditropan Tab) 5 mg PO BID [facility] Last Admin: 04/04/17 09:10 Dose: 5 mg Oxycodone/Acetaminophen (Percocet 5/325 Mg Tab) 1 tab PO PRN PRN PRN Reason: Pain, moderate (4-7) Stop: 04/04/17 19:03 Last Admin: 04/02/17 15:25 Dose: 1 tab Fluticasone/Salmeterol (Advair Diskus 500/50) 1 puff IH Q12 [facility] Last Admin: 04/04/17 09:11 Dose: 1 puff Physical Exam - Constitutional Appears: Confused - Head Exam Head Exam: ATRAUMATIC, NORMAL INSPECTION, NORMOCEPHALIC - Eye Exam Eye Exam: EOMI, Normal appearance, PERRL Pupil Exam: NORMAL ACCOMODATION, PERRL - ENT Exam ENT Exam: Mucous Membranes Moist, Normal Exam - Neck Exam Neck exam: Positive for: Normal Inspection - Respiratory Exam Respiratory Exam: Clear to Auscultation Bilateral, NORMAL BREATHING PATTERN - Cardiovascular Exam Cardiovascular Exam: REGULAR RHYTHM, +S1, +S2, Systolic Murmur - GI/Abdominal Exam GI & Abdominal Exam: Normal Bowel Sounds, Soft. absent: Tenderness - Extremities Exam Extremities exam: Positive for: normal inspection - Back Exam Back exam: NORMAL INSPECTION - Neurological Exam Neurological exam: Altered, CN II-XII Intact, Reflexes Normal - Psychiatric Exam Psychiatric exam: Normal Affect, Normal Mood - Skin Skin Exam: Dry, Intact, Normal Color, Warm Results - Vital Signs Recent Vital Signs: Last Vital Signs Temp 98.3 F 04/04/17 13:20 Pulse 91 H 04/04/17 13:20 Resp 20 04/04/17 13:20 BP 117/74 04/04/17 13:20 Pulse Ox 95 04/04/17 13:20 - Labs Result Diagrams: 04/02/17 05:20 04/02/17 05:20 Labs: Laboratory Results - last 24 hr 04/02/17 04/02/17 04/03/17 05:20 10:26 21:04 POC Glucose (mg/dL) 147 H Hemoglobin A1c 5.7 Vitamin B6 TNP 04/04/17 04/04/17 05:19 11:41 POC Glucose (mg/dL) 94 250 H Hemoglobin A1c Vitamin B6 Assessment & Plan (1) Syncope Assessment and Plan: etiology ? preload dependency IVF hydration orthostatics echo telemetry Status: Acute Priority: High (2) Dementia Status: Acute (3) Frequent falls Status: Acute (4) Dyslipidemia Status: Chronic Priority: Medium
--- NOTE | 2017-04-04 18:42 | US ---
PROCEDURE: Duplex ultrasound of the carotid and vertebral arteries. HISTORY: syncope COMPARISON: 08/18/2011 TECHNIQUE: Grayscale and duplex Doppler evaluation of the cervical carotid and vertebral arteries were performed. The common carotid, carotid bifurcations and cervical ICA and proximal ECA were evaluated. The vertebral arteries were evaluated for gross patency and direction. FINDINGS: RIGHT CAROTID ARTERIES: Common Carotid Artery: Unremarkable Maximal flow velocity of 82.7 cm/s. Carotid Bifurcation: Normal. Internal Carotid Artery:Heterogeneous plaque formation. tortuous ICA Maximal flow velocity of 67.2 cm/s. External Carotid Artery (proximal branches): Normal. Maximal flow velocity of cm/s. ICA/CCA Ratio: LEFT CAROTID ARTERIES: Nondiagnostic examination, the patient could not tolerate assessment of the left carotid system VERTEBRAL ARTERIES: Nondiagnostic assessment. Patient could not tolerate the examination. OTHER FINDINGS: None. IMPRESSION: Limited study confined to rudimentary assessment of the right common carotid and internal carotid artery. No hemodynamically significant findings within the visualized right carotid system.
[2017-04-04] MEDS: Magnesium Hydroxide Susp 30 ml UD PO SCH (23:28)
--- NOTE | 2017-04-05 01:05 | CP.PCM.PN ---
Subjective - Date & Time of Evaluation Date of Evaluation: 04/04/17 Time of Evaluation: 22:00 - Subjective Subjective: No new syncopal spells. She was sent to have an MRI Brain and EEG under IV Ativan 2mg one dose for sedation. She is still confused on top of her dementia. Objective - Vital Signs/Intake and Output Vital Signs (last 24 hours): Temp Pulse Resp BP Pulse Ox 98.6 F 91 H 18 128/74 95 04/05/17 00:58 04/05/17 00:58 04/05/17 00:58 04/05/17 00:58 04/05/17 00:58 - Medications Medications: Current Medications Aspirin (Aspirin Chewable) 81 mg PO DAILY [facility] Last Admin: 04/04/17 09:09 Dose: 81 mg Atorvastatin Calcium (Lipitor) 40 mg PO HS [facility] Last Admin: 04/04/17 23:28 Dose: Not Given Bisacodyl (Dulcolax) 10 mg [place] PRN PRN PRN Reason: Constipation Calcium/Vitamin D (Oyster Shell Calcium/Vitamin D 500 Mg-200 Iu) 1 tab PO BID [facility] Last Admin: 04/04/17 16:54 Dose: 1 tab Cyanocobalamin (Vitamin B12 1000 Mcg/Ml Inj) 1,000 mcg IM DAILY [facility] Last Admin: 04/04/17 09:10 Dose: 1,000 mcg Duloxetine HCl (Cymbalta) 20 mg PO DAILY [facility] Last Admin: 04/04/17 09:09 Dose: 20 mg Ergocalciferol (Drisdol 50,000 Intl Units Cap) 1 cap PO QWK [facility] Gabapentin (Neurontin) 100 mg PO TID [facility] Last Admin: 04/04/17 16:54 Dose: 100 mg Lamotrigine (Lamictal) 25 mg PO BID [facility] Last Admin: 04/04/17 16:54 Dose: 25 mg Loratadine (Claritin) 10 mg PO DAILY [facility] Last Admin: 04/04/17 09:09 Dose: 10 mg Magnesium Hydroxide (Milk Of Magnesia) 30 ml PO HS [facility] Last Admin: 04/04/17 23:28 Dose: Not Given Meclizine HCl (Antivert) 12.5 mg PO TID PRN PRN Reason: Dizziness Oxybutynin Chloride (Ditropan Tab) 5 mg PO BID [facility] Last Admin: 04/04/17 16:54 Dose: 5 mg Fluticasone/Salmeterol (Advair Diskus 500/50) 1 puff IH Q12 [facility] Last Admin: 04/04/17 23:24 Dose: 1 puff - Labs Labs: 04/02/17 05:20 04/02/17 05:20 PT 13.0 Seconds (9.8-13.1) 04/01/17 11:23 INR 1.2 (0.9-1.2) 04/01/17 11:23 APTT 29.3 Seconds (25.6-37.1) 04/01/17 11:23 Assessment and Plan (1) Gait instability Status: Chronic (2) Back pain Status: Acute (3) Seizure Status: Chronic (4) Osteoarthrosis involving multiple sites Status: Chronic (5) Urinary incontinence Status: Acute (6) Radiculopathy Status: Acute
[2017-04-05] MEDS: Fluticasone-Salmeterol 500-50mcg Diskus IH SCH ×2 (10:33→22:17)
[2017-04-05] MEDS: Calcium-Vit D 500 mg-200 Units Tab UD PO SCH ×2 (10:36→17:40)
--- NOTE | 2017-04-05 12:00 | MRI ---
PROCEDURE: MR THORACIC SPINE WITHOUT CONTRAST HISTORY: Fall COMPARISON: Lumbar spine MRI 04/01/2017, upper segment. TECHNIQUE: Multiecho multiplanar sequences were performed through the thoracic spine without the use of intravenous contrast. FINDINGS: ALIGNMENT: A hyper kyphotic deformity is now appreciated at the inferior thoracic spine which may not be simply changed in the interval even though there is an acute or subacute moderate compression fracture of the T10 vertebral body which exhibits edematous signal changes diffusely. Contusions or even potential fractures of the left transverse processes of T9 and T10 are not excluded as well as the right T10 transverse process. Limited compression of T11 vertebral body posteriorly is questioned on acute or subacute basis. A chronic severe compression fracture of T12 is reiterated with moderate compression fractures of T9 and T11 appreciated, mild at T5 and T6. Incidental compression fractures of L1 and L3 are reiterated on a chronic basis with large Schmorl's node related depression of the upper endplate of L2 appreciated. A benign hemangiomas appreciate the T3 vertebral body with matter otherwise unremarkable screws with the aforementioned fractures. Motion artifacts degrade this exam however signal intensity throughout the thoracic spinal cord appears normal with no volume loss or cord expansion identified either. Prevertebral paraspinal soft tissues appear diffusely unremarkable. Conus medullaris is stable, again noted terminating at the the L2 level. Delete DISCS: No disc herniation is appreciated throughout the examination and there is no definite significant central canal or neural foraminal stenosis appreciated at this time either. OTHER FINDINGS: None. IMPRESSION: 1. An acute to subacute moderate compression fracture of T10 vertebral body is identified with minimal similar fracture question in the posterior its upper segment of T11. No significant stenosis results or definite fragmentation. No definitive disc herniation. Transverse process fractures are questioned versus contusions of the bilateral T10 and left T9 transverse processes. 2. Chronic compression fractures are seen T5, T6, and T9 incidentally. No spondylolisthesis. Incidental chronic compression fractures of L1, and L3 with prominent Schmorl's node at the upper endplate of L2.
--- NOTE | 2017-04-05 13:49 | PCM.EEG ---
Electroencephalogram Report - Electroencephalogram Report Procedure Date: 04/04/17 Interpretation: Indication: Syncope. Medications were reviewed. Technical: This is a digitally recorded electroencephalogram. The international 10-20 electrode placement system is used for scalp electrode placement. Eighteen channels of scalp EEG are recorded Another channel was used for for ECG. The data are stored digitally and reviewed in reformatted montages for optimal display. Background: 9 to 10 hertz alpha activity was seen. Maximal over the posterior head region. These activities are symmetric on both sides. They attenuated with eye opening. Small amount of beta activities are seen. Description: No focal slowing was seen. No seizure like activity was observed during this recording. Patient entered into periods of drowsiness and light sleep. No abnormality was seen. Impression: Normal EEG. No focal slowing no seizure like activity was observed. Correlation with clinical findings is needed.
--- NOTE | 2017-04-05 16:42 | CP.PCM.PN ---
Subjective - Date & Time of Evaluation Date of Evaluation: 04/05/17 Time of Evaluation: 10:30 - Subjective Subjective: F/U Syncope/Trauma. Pt confused, no A/D but c/o of generalized joint pain and back pain. Objective - Vital Signs/Intake and Output Vital Signs (last 24 hours): Temp Pulse Resp BP Pulse Ox 98.6 F 112 H 20 128/65 93 L 04/05/17 15:50 04/05/17 15:50 04/05/17 15:50 04/05/17 15:50 04/05/17 15:50 - Medications Medications: Current Medications Aspirin (Aspirin Chewable) 81 mg PO DAILY [facility] Last Admin: 04/05/17 10:33 Dose: 81 mg Atorvastatin Calcium (Lipitor) 40 mg PO HS [facility] Last Admin: 04/04/17 23:28 Dose: Not Given Bisacodyl (Dulcolax) 10 mg [place] PRN PRN PRN Reason: Constipation Calcium/Vitamin D (Oyster Shell Calcium/Vitamin D 500 Mg-200 Iu) 1 tab PO BID [facility] Last Admin: 04/05/17 10:36 Dose: 1 tab Cyanocobalamin (Vitamin B12 1000 Mcg/Ml Inj) 1,000 mcg IM DAILY [facility] Last Admin: 04/05/17 10:36 Dose: 1,000 mcg Duloxetine HCl (Cymbalta) 20 mg PO DAILY [facility] Last Admin: 04/05/17 10:34 Dose: 20 mg Ergocalciferol (Drisdol 50,000 Intl Units Cap) 1 cap PO QWK [facility] Gabapentin (Neurontin) 100 mg PO TID [facility] Last Admin: 04/05/17 14:02 Dose: 100 mg Ibuprofen (Motrin Tab) 600 mg PO Q8 PRN PRN Reason: Pain, moderate (4-7) Lamotrigine (Lamictal) 25 mg PO BID [facility] Last Admin: 04/05/17 10:46 Dose: 25 mg Loratadine (Claritin) 10 mg PO DAILY [facility] Last Admin: 04/05/17 10:34 Dose: 10 mg Magnesium Hydroxide (Milk Of Magnesia) 30 ml PO HS [facility] Last Admin: 04/04/17 23:28 Dose: Not Given Meclizine HCl (Antivert) 12.5 mg PO TID PRN PRN Reason: Dizziness Oxybutynin Chloride (Ditropan Tab) 5 mg PO BID [facility] Last Admin: 04/05/17 10:35 Dose: 5 mg Fluticasone/Salmeterol (Advair Diskus 500/50) 1 puff IH Q12 [facility] Last Admin: 04/05/17 10:33 Dose: 1 puff - Labs Labs: 04/02/17 05:20 04/02/17 05:20 PT 13.0 Seconds (9.8-13.1) 04/01/17 11:23 INR 1.2 (0.9-1.2) 04/01/17 11:23 APTT 29.3 Seconds (25.6-37.1) 04/01/17 11:23 - Constitutional Appears: Chronically Ill - Head Exam Head Exam: NORMAL INSPECTION - Eye Exam Eye Exam: PERRL - ENT Exam Additional comments: Hard of hear on left side. - Neck Exam Neck Exam: Normal Inspection - Respiratory Exam Respiratory Exam: NORMAL BREATHING PATTERN - Cardiovascular Exam Cardiovascular Exam: REGULAR RHYTHM - GI/Abdominal Exam GI & Abdominal Exam: Soft, Normal Bowel Sounds - Extremities Exam Additional comments: Bruising BLE, decreased ROM 2nd to fall, deformity L wrist from previous Fx. - Back Exam Back Exam: tenderness (L-S) - Neurological Exam Neurological Exam: Awake Additional comments: Confused, disoriented, follows commands, no focal motor/sensory deficit. - Psychiatric Exam Psychiatric exam: Anxious, Depressed - Skin Skin Exam: Warm Assessment and Plan (1) Spinal compression fracture Status: Acute (2) Dementia Status: Acute (3) Syncope Status: Acute (4) Frequent falls Status: Acute (5) Back pain Status: Acute (6) Generalized weakness Status: Chronic (7) Seizure disorder Status: Chronic (8) Dyslipidemia Status: Chronic (9) Gait instability Status: Chronic (10) Osteoarthrosis involving multiple sites Status: Chronic (11) Seizure Status: Chronic (12) Asthma Status: Chronic (13) Depression with anxiety Status: Chronic - Assessment and Plan (Free Text) Plan: F/U MRI Brain could not be done, MRI Spine showed acute compression Fx of T10, chronic compression Fx T-5, 6 and 9. F/U PT eval, continue current Tx.
--- NOTE | 2017-04-05 20:09 | CP.PCM.PN ---
Subjective - Date & Time of Evaluation Date of Evaluation: 04/05/17 Time of Evaluation: 20:08 - Subjective Subjective: confused and delerious Objective - Vital Signs/Intake and Output Vital Signs (last 24 hours): Temp Pulse Resp BP Pulse Ox 99.4 F 92 H 20 119/72 94 L 04/05/17 19:29 04/05/17 19:29 04/05/17 19:29 04/05/17 19:29 04/05/17 19:29 Intake and Output: 04/05/17 04/06/17 18:59 06:59 Intake Total 860 Balance 860 - Medications Medications: Current Medications Aspirin (Aspirin Chewable) 81 mg PO DAILY [facility] Last Admin: 04/05/17 10:33 Dose: 81 mg Atorvastatin Calcium (Lipitor) 40 mg PO HS [facility] Last Admin: 04/04/17 23:28 Dose: Not Given Bisacodyl (Dulcolax) 10 mg [place] PRN PRN PRN Reason: Constipation Calcium/Vitamin D (Oyster Shell Calcium/Vitamin D 500 Mg-200 Iu) 1 tab PO BID [facility] Last Admin: 04/05/17 17:40 Dose: 1 tab Cyanocobalamin (Vitamin B12 1000 Mcg/Ml Inj) 1,000 mcg IM DAILY [facility] Last Admin: 04/05/17 10:36 Dose: 1,000 mcg Duloxetine HCl (Cymbalta) 20 mg PO DAILY [facility] Last Admin: 04/05/17 10:34 Dose: 20 mg Ergocalciferol (Drisdol 50,000 Intl Units Cap) 1 cap PO QWK [facility] Gabapentin (Neurontin) 100 mg PO TID [facility] Last Admin: 04/05/17 17:40 Dose: 100 mg Ibuprofen (Motrin Tab) 600 mg PO Q8 PRN PRN Reason: Pain, moderate (4-7) Last Admin: 04/05/17 17:42 Dose: 600 mg Lamotrigine (Lamictal) 25 mg PO BID [facility] Last Admin: 04/05/17 17:40 Dose: 25 mg Loratadine (Claritin) 10 mg PO DAILY [facility] Last Admin: 04/05/17 10:34 Dose: 10 mg Magnesium Hydroxide (Milk Of Magnesia) 30 ml PO HS [facility] Last Admin: 04/04/17 23:28 Dose: Not Given Meclizine HCl (Antivert) 12.5 mg PO TID PRN PRN Reason: Dizziness Oxybutynin Chloride (Ditropan Tab) 5 mg PO BID [facility] Last Admin: 04/05/17 17:39 Dose: 5 mg Fluticasone/Salmeterol (Advair Diskus 500/50) 1 puff IH Q12 [facility] Last Admin: 04/05/17 10:33 Dose: 1 puff - Labs Labs: 04/02/17 05:20 04/02/17 05:20 PT 13.0 Seconds (9.8-13.1) 04/01/17 11:23 INR 1.2 (0.9-1.2) 04/01/17 11:23 APTT 29.3 Seconds (25.6-37.1) 04/01/17 11:23 - Constitutional Appears: Confused - Head Exam Head Exam: ATRAUMATIC, NORMAL INSPECTION, NORMOCEPHALIC - Eye Exam Eye Exam: EOMI, Normal appearance, PERRL Pupil Exam: NORMAL ACCOMODATION, PERRL - ENT Exam ENT Exam: Mucous Membranes Moist, Normal Exam - Neck Exam Neck Exam: Full ROM, Normal Inspection. absent: Lymphadenopathy - Respiratory Exam Respiratory Exam: Clear to Ausculation Bilateral, NORMAL BREATHING PATTERN - Cardiovascular Exam Cardiovascular Exam: REGULAR RHYTHM, +S1, +S2, Murmur - GI/Abdominal Exam GI & Abdominal Exam: Soft, Normal Bowel Sounds. absent: Tenderness - Exam Bimanual exam: NORMAL BIMANUAL EXAM - Extremities Exam Extremities Exam: Full ROM, Normal Capillary Refill, Normal Inspection. absent : Joint Swelling, Pedal Edema - Back Exam Back Exam: NORMAL INSPECTION - Neurological Exam Neurological Exam: Awake, CN II-XII Intact - Psychiatric Exam Psychiatric exam: Normal Affect, Normal Mood - Skin Skin Exam: Dry, Intact, Normal Color, Warm Assessment and Plan (1) Syncope Status: Acute (2) Dementia Status: Acute (3) Frequent falls Status: Acute (4) Dyslipidemia Status: Chronic
--- NOTE | 2017-04-05 22:11 | CP.PCM.PN ---
Subjective - Date & Time of Evaluation Date of Evaluation: 04/05/17 Time of Evaluation: 22:02 - Subjective Subjective: Patient has no changes in her condition. MRI Brain was not performed due to the patient non cooperation. EEG is negative, Carotid Doppler Report is not clear and needs clarification. Patient needs Neuro surgical Consult due to her Vertebral fractures at T 5 and T 10. Empirical starting of anti epileptic medicine by lamictal as the clinical picture suggests seizures and the repeated falling. Rectal Diastat 10 mg BID PRN Seizures should be used at home. She is still confused and emotionally unstable. Objective - Vital Signs/Intake and Output Vital Signs (last 24 hours): Temp Pulse Resp BP Pulse Ox 99.4 F 92 H 20 119/72 94 L 04/05/17 19:29 04/05/17 21:00 04/05/17 19:29 04/05/17 19:29 04/05/17 19:29 Intake and Output: 04/05/17 04/06/17 18:59 06:59 Intake Total 860 Balance 860 - Medications Medications: Current Medications Aspirin (Aspirin Chewable) 81 mg PO DAILY [facility] Last Admin: 04/05/17 10:33 Dose: 81 mg Atorvastatin Calcium (Lipitor) 40 mg PO HS [facility] Last Admin: 04/04/17 23:28 Dose: Not Given Bisacodyl (Dulcolax) 10 mg [place] PRN PRN PRN Reason: Constipation Calcium/Vitamin D (Oyster Shell Calcium/Vitamin D 500 Mg-200 Iu) 1 tab PO BID [facility] Last Admin: 04/05/17 17:40 Dose: 1 tab Cyanocobalamin (Vitamin B12 1000 Mcg/Ml Inj) 1,000 mcg IM DAILY [facility] Last Admin: 04/05/17 10:36 Dose: 1,000 mcg Duloxetine HCl (Cymbalta) 20 mg PO DAILY [facility] Last Admin: 04/05/17 10:34 Dose: 20 mg Ergocalciferol (Drisdol 50,000 Intl Units Cap) 1 cap PO QWK [facility] Gabapentin (Neurontin) 100 mg PO TID [facility] Last Admin: 04/05/17 17:40 Dose: 100 mg Ibuprofen (Motrin Tab) 600 mg PO Q8 PRN PRN Reason: Pain, moderate (4-7) Last Admin: 04/05/17 17:42 Dose: 600 mg Lamotrigine (Lamictal) 25 mg PO BID [facility] Last Admin: 04/05/17 17:40 Dose: 25 mg Loratadine (Claritin) 10 mg PO DAILY [facility] Last Admin: 04/05/17 10:34 Dose: 10 mg Magnesium Hydroxide (Milk Of Magnesia) 30 ml PO HS [facility] Last Admin: 04/04/17 23:28 Dose: Not Given Meclizine HCl (Antivert) 12.5 mg PO TID PRN PRN Reason: Dizziness Oxybutynin Chloride (Ditropan Tab) 5 mg PO BID [facility] Last Admin: 04/05/17 17:39 Dose: 5 mg Fluticasone/Salmeterol (Advair Diskus 500/50) 1 puff IH Q12 [facility] Last Admin: 04/05/17 10:33 Dose: 1 puff - Labs Labs: 04/02/17 05:20 04/02/17 05:20 PT 13.0 Seconds (9.8-13.1) 04/01/17 11:23 INR 1.2 (0.9-1.2) 04/01/17 11:23 APTT 29.3 Seconds (25.6-37.1) 04/01/17 11:23 Assessment and Plan (1) Gait instability Status: Chronic (2) Back pain Status: Acute (3) Seizure Status: Chronic (4) Osteoarthrosis involving multiple sites Status: Chronic (5) Urinary incontinence Status: Acute (6) Radiculopathy Status: Acute
[2017-04-05] MEDS: Magnesium Hydroxide Susp 30 ml UD PO SCH (22:21)
[2017-04-06 08:12] VITALS: RESP 20
--- NOTE | 2017-04-06 09:37 | CP.PCM.PN ---
Subjective - Date & Time of Evaluation Date of Evaluation: 04/06/17 Time of Evaluation: 09:37 - Subjective Subjective: No arrhythmias noted on telemetry cardiac stable MS improved Objective - Vital Signs/Intake and Output Vital Signs (last 24 hours): Temp Pulse Resp BP Pulse Ox 98.2 F 61 20 124/73 95 04/06/17 08:00 04/06/17 08:43 04/06/17 08:00 04/06/17 08:00 04/06/17 08:00 - Medications Medications: Current Medications Aspirin (Aspirin Chewable) 81 mg PO DAILY [facility] Last Admin: 04/05/17 10:33 Dose: 81 mg Atorvastatin Calcium (Lipitor) 40 mg PO HS [facility] Last Admin: 04/05/17 22:18 Dose: 40 mg Bisacodyl (Dulcolax) 10 mg [place] PRN PRN PRN Reason: Constipation Calcium/Vitamin D (Oyster Shell Calcium/Vitamin D 500 Mg-200 Iu) 1 tab PO BID [facility] Last Admin: 04/05/17 17:40 Dose: 1 tab Cyanocobalamin (Vitamin B12 1000 Mcg/Ml Inj) 1,000 mcg IM DAILY [facility] Last Admin: 04/05/17 10:36 Dose: 1,000 mcg Duloxetine HCl (Cymbalta) 20 mg PO DAILY [facility] Last Admin: 04/05/17 10:34 Dose: 20 mg Ergocalciferol (Drisdol 50,000 Intl Units Cap) 1 cap PO QWK [facility] Gabapentin (Neurontin) 100 mg PO TID [facility] Last Admin: 04/05/17 17:40 Dose: 100 mg Ibuprofen (Motrin Tab) 600 mg PO Q8 PRN PRN Reason: Pain, moderate (4-7) Last Admin: 04/05/17 17:42 Dose: 600 mg Lamotrigine (Lamictal) 25 mg PO BID [facility] Last Admin: 04/05/17 17:40 Dose: 25 mg Loratadine (Claritin) 10 mg PO DAILY [facility] Last Admin: 04/05/17 10:34 Dose: 10 mg Magnesium Hydroxide (Milk Of Magnesia) 30 ml PO HS [facility] Last Admin: 04/05/17 22:21 Dose: Not Given Meclizine HCl (Antivert) 12.5 mg PO TID PRN PRN Reason: Dizziness Oxybutynin Chloride (Ditropan Tab) 5 mg PO BID [facility] Last Admin: 04/05/17 17:39 Dose: 5 mg Fluticasone/Salmeterol (Advair Diskus 500/50) 1 puff IH Q12 [facility] Last Admin: 04/05/17 22:17 Dose: 1 puff - Labs Labs: 04/02/17 05:20 04/02/17 05:20 PT 13.0 Seconds (9.8-13.1) 04/01/17 11:23 INR 1.2 (0.9-1.2) 04/01/17 11:23 APTT 29.3 Seconds (25.6-37.1) 04/01/17 11:23 - Constitutional Appears: Well - Head Exam Head Exam: ATRAUMATIC, NORMAL INSPECTION, NORMOCEPHALIC - Eye Exam Eye Exam: EOMI, Normal appearance, PERRL Pupil Exam: NORMAL ACCOMODATION, PERRL - ENT Exam ENT Exam: Mucous Membranes Moist, Normal Exam - Neck Exam Neck Exam: Full ROM, Normal Inspection. absent: Lymphadenopathy - Respiratory Exam Respiratory Exam: Clear to Ausculation Bilateral, NORMAL BREATHING PATTERN - Cardiovascular Exam Cardiovascular Exam: REGULAR RHYTHM, +S1, +S2. absent: Murmur - GI/Abdominal Exam GI & Abdominal Exam: Soft, Normal Bowel Sounds. absent: Tenderness - Extremities Exam Extremities Exam: Full ROM, Normal Capillary Refill, Normal Inspection. absent : Joint Swelling, Pedal Edema - Back Exam Back Exam: NORMAL INSPECTION - Neurological Exam Neurological Exam: Alert, Awake, CN II-XII Intact - Psychiatric Exam Psychiatric exam: Normal Affect, Normal Mood - Skin Skin Exam: Dry, Intact, Normal Color, Warm Assessment and Plan (1) Syncope Assessment & Plan: etiology unlikely to be cardiac in origin recent echo shows normal LVEF ? preload dependent / Dehydration induced maintain volume status Status: Acute (2) Dementia Status: Acute (3) Frequent falls Status: Acute (4) Dyslipidemia Status: Chronic
[2017-04-06] MEDS: Fluticasone-Salmeterol 500-50mcg Diskus IH SCH (09:53)
[2017-04-06] MEDS: Calcium-Vit D 500 mg-200 Units Tab UD PO SCH ×2 (09:55→16:53)
--- NOTE | 2017-04-06 11:07 | CP.PCM.CON ---
History of Present Illness - History of Present Illness History of Present Illness: 81 y/o female with PMHx of Anxiety, Arthritis (poly), Asthma, Back Problems, Dementia, Depression, Fractures (L wrist), HTN, Hypercholesterolemia, Osteoporosis, Seizures was seen and evaluated at bedside for elongated toe nails. Patient states that she was admitted to the hospital due to multiple falls. Patient denies of any pain to her nails or feet today. Patient denies of any other pedal complains at this time. PMHx: Anxiety, Arthritis (poly), Asthma, Back Problems, Dementia, Depression, Fractures (L wrist), HTN, Hypercholesterolemia, Osteoporosis, Seizures PSHx: Tubal ligation Allergies: Penicillins SHx: Denies smoking Review of Systems - Constitutional Constitutional: As Per HPI Past Patient History - Infectious Disease Hx of Infectious Diseases: None - Past Medical History & Family History Past Medical History?: Yes - Past Social History Smoking Status: Never Smoked - CARDIAC Hx Hypercholesterolemia: Yes Hx Hypertension: Yes - PULMONARY Hx Asthma: Yes - NEUROLOGICAL Hx Dementia: Yes Hx Seizures: Yes - HEENT Hx HEENT Problems: Yes - RENAL Hx Chronic Kidney Disease: No - ENDOCRINE/METABOLIC Hx Endocrine Disorders: Yes - HEMATOLOGICAL/ONCOLOGICAL Hx Human Immunodeficiency Virus (HIV): No - INTEGUMENTARY Hx Dermatological Problems: No - MUSCULOSKELETAL/RHEUMATOLOGICAL Hx Arthritis: Yes (poly) Hx Fractures: Yes (L wrist) Hx Osteoporosis: Yes - GASTROINTESTINAL Hx Gastrointestinal Disorders: Yes Hx Constipation: Yes - GENITOURINARY/GYNECOLOGICAL Hx Genitourinary Disorders: Yes - PSYCHIATRIC Hx Anxiety: Yes Hx Depression: Yes - SURGICAL HISTORY Hx Surgeries: Yes Hx Tubal Ligation: Yes - ANESTHESIA Hx Anesthesia: Yes Hx Anesthesia Reactions: No Hx Malignant Hyperthermia: No Meds Allergies/Adverse Reactions: Allergies Allergy/AdvReac Type Severity Reaction Status Date / Time Penicillins Allergy RASH Verified 10/25/16 14:55 - Medications Medications: Current Medications Aspirin (Aspirin Chewable) 81 mg PO DAILY [facility] Last Admin: 04/06/17 09:53 Dose: 81 mg Atorvastatin Calcium (Lipitor) 40 mg PO HS [facility] Last Admin: 04/05/17 22:18 Dose: 40 mg Bisacodyl (Dulcolax) 10 mg [place] PRN PRN PRN Reason: Constipation Calcium/Vitamin D (Oyster Shell Calcium/Vitamin D 500 Mg-200 Iu) 1 tab PO BID [facility] Last Admin: 04/06/17 09:55 Dose: 1 tab Cyanocobalamin (Vitamin B12 1000 Mcg/Ml Inj) 1,000 mcg IM DAILY [facility] Last Admin: 04/06/17 09:57 Dose: 1,000 mcg Duloxetine HCl (Cymbalta) 20 mg PO DAILY [facility] Last Admin: 04/06/17 09:56 Dose: 20 mg Ergocalciferol (Drisdol 50,000 Intl Units Cap) 1 cap PO QWK [facility] Gabapentin (Neurontin) 100 mg PO TID [facility] Last Admin: 04/06/17 09:54 Dose: 100 mg Ibuprofen (Motrin Tab) 600 mg PO Q8 PRN PRN Reason: Pain, moderate (4-7) Last Admin: 04/06/17 10:04 Dose: 600 mg Lamotrigine (Lamictal) 25 mg PO BID [facility] Last Admin: 04/06/17 09:54 Dose: 25 mg Loratadine (Claritin) 10 mg PO DAILY [facility] Last Admin: 04/06/17 09:56 Dose: 10 mg Magnesium Hydroxide (Milk Of Magnesia) 30 ml PO HS [facility] Last Admin: 04/05/17 22:21 Dose: Not Given Meclizine HCl (Antivert) 12.5 mg PO TID PRN PRN Reason: Dizziness Oxybutynin Chloride (Ditropan Tab) 5 mg PO BID [facility] Last Admin: 04/06/17 09:57 Dose: 5 mg Fluticasone/Salmeterol (Advair Diskus 500/50) 1 puff IH Q12 [facility] Last Admin: 04/06/17 09:53 Dose: 1 puff Physical Exam - Constitutional Appears: Well, Non-toxic, No Acute Distress - Extremities Exam Extremities exam: Negative for: calf tenderness Additional comments: Bilateral LE exam: VASC: DP/PT pulses are palpable 1/4, Cap refill time: < 3 sec to all digits, Temp gradient: warm to cool from proximal to distal, no pitting or non-pitting edema noted DERM: Nails are elongated, dystrophic, discolored to all digits, no interdigital maceration, no open lesions, no clinical suspicion of active infection NEURO: Protective sensation grossly diminished ORTHO: limited ROM at the ankle joint and MTPJ - Neurological Exam Neurological exam: Alert, Oriented x3 - Psychiatric Exam Psychiatric exam: Normal Affect, Normal Mood Results - Vital Signs Recent Vital Signs: Last Vital Signs Temp 98.2 F 04/06/17 08:00 Pulse 61 04/06/17 08:43 Resp 20 04/06/17 08:00 BP 124/73 04/06/17 08:00 Pulse Ox 95 04/06/17 08:00 - Labs Result Diagrams: 04/02/17 05:20 04/02/17 05:20 Labs: Laboratory Results - last 24 hr 04/01/17 04/02/17 04/05/17 11:23 05:20 11:17 POC Glucose (mg/dL) 166 H Lamotrigine 2.6 L KAREN Screen Negative KAREN Titer TEST NOT PERFORMED KAREN Titer 2 TEST NOT PERFORMED KAREN Pattern TEST NOT PERFORMED KAREN Pattern 2 TEST NOT PERFORMED 04/05/17 04/05/17 04/06/17 16:10 22:06 05:48 POC Glucose (mg/dL) 136 H 137 H 104 Lamotrigine KAREN Screen KAREN Titer KAREN Titer 2 KAREN Pattern KAREN Pattern 2 Assessment & Plan - Assessment and Plan (Free Text) Assessment: 81 y/o male seen and evaluated at bedside for elongated nails Plan: Patient seen and evaluated at bedside Discussed with attending Dr. Albright Charts, vitals reviewed - afebrile Aseptic debridement of nails x 10 Tolerated the procedure well Thank you for the podiatry consult - Date & Time Date: 04/06/17 Time: 11:12
[2017-04-06 11:14] LABS: HEMATOCRIT 40.9 % (34.0-47.0); MEAN CORPUSCULAR HEMOGLOBIN 28.3 pg (27.0-31.0); MEAN CORPUSCULAR HGB CONC 32.9 g/dL (33.0-37.0); RED CELL DISTRIBUTION WIDTH 14.4 % (11.5-14.5); WHITE BLOOD COUNT 6.9 K/uL (4.8-10.8)
[2017-04-06 11:45] LABS: BLOOD UREA NITROGEN 18 mg/dl (7-17); CALCIUM 9.1 mg/dL (8.4-10.2); CARBON DIOXIDE 29 mmol/L (22-30); CHLORIDE 101 mmol/L (98-107); GFR AFRICAN-AMERICAN > 60; GLUCOSE,RANDOM 151 mg/dL (65-105); POTASSIUM 3.7 MMOL/L (3.6-5.0); SODIUM 139 mmol/l (132-148)
--- NOTE | 2017-04-06 11:45 | CP.PCM.PN ---
Subjective - Date & Time of Evaluation Date of Evaluation: 04/06/17 Time of Evaluation: 11:43 - Subjective Subjective: originally seen by our service as far back as 2014 Mult thoracic compression fx MRI just done shows fractures that appear similar in extent to x ray from August. Theres are not new There is no ability to stabalize this do to extent of number of fractures. suggest pain managment as necessary but no surgical intervention indicated Objective - Vital Signs/Intake and Output Vital Signs (last 24 hours): Temp Pulse Resp BP Pulse Ox 98.2 F 61 20 124/73 95 04/06/17 08:00 04/06/17 08:43 04/06/17 08:00 04/06/17 08:00 04/06/17 08:00 - Medications Medications: Current Medications Aspirin (Aspirin Chewable) 81 mg PO DAILY [facility] Last Admin: 04/06/17 09:53 Dose: 81 mg Atorvastatin Calcium (Lipitor) 40 mg PO HS [facility] Last Admin: 04/05/17 22:18 Dose: 40 mg Bisacodyl (Dulcolax) 10 mg [place] PRN PRN PRN Reason: Constipation Calcium/Vitamin D (Oyster Shell Calcium/Vitamin D 500 Mg-200 Iu) 1 tab PO BID [facility] Last Admin: 04/06/17 09:55 Dose: 1 tab Cyanocobalamin (Vitamin B12 1000 Mcg/Ml Inj) 1,000 mcg IM DAILY [facility] Last Admin: 04/06/17 09:57 Dose: 1,000 mcg Duloxetine HCl (Cymbalta) 20 mg PO DAILY [facility] Last Admin: 04/06/17 09:56 Dose: 20 mg Ergocalciferol (Drisdol 50,000 Intl Units Cap) 1 cap PO QWK [facility] Gabapentin (Neurontin) 100 mg PO TID [facility] Last Admin: 04/06/17 09:54 Dose: 100 mg Ibuprofen (Motrin Tab) 600 mg PO Q8 PRN PRN Reason: Pain, moderate (4-7) Last Admin: 04/06/17 10:04 Dose: 600 mg Lamotrigine (Lamictal) 25 mg PO BID [facility] Last Admin: 04/06/17 09:54 Dose: 25 mg Loratadine (Claritin) 10 mg PO DAILY [facility] Last Admin: 04/06/17 09:56 Dose: 10 mg Magnesium Hydroxide (Milk Of Magnesia) 30 ml PO HS [facility] Last Admin: 04/05/17 22:21 Dose: Not Given Meclizine HCl (Antivert) 12.5 mg PO TID PRN PRN Reason: Dizziness Oxybutynin Chloride (Ditropan Tab) 5 mg PO BID [facility] Last Admin: 04/06/17 09:57 Dose: 5 mg Fluticasone/Salmeterol (Advair Diskus 500/50) 1 puff IH Q12 [facility] Last Admin: 04/06/17 09:53 Dose: 1 puff - Labs Labs: 04/06/17 10:35 04/02/17 05:20 PT 13.0 Seconds (9.8-13.1) 04/01/17 11:23 INR 1.2 (0.9-1.2) 04/01/17 11:23 APTT 29.3 Seconds (25.6-37.1) 04/01/17 11:23
--- NOTE | 2017-04-06 11:58 | CP.PCM.PN ---
Subjective - Date & Time of Evaluation Date of Evaluation: 04/06/17 Time of Evaluation: 09:20 - Subjective Subjective: confused , complains of back pain Objective - Vital Signs/Intake and Output Vital Signs (last 24 hours): Temp Pulse Resp BP Pulse Ox 98.2 F 61 20 124/73 95 04/06/17 08:00 04/06/17 08:43 04/06/17 08:00 04/06/17 08:00 04/06/17 08:00 - Medications Medications: Current Medications Aspirin (Aspirin Chewable) 81 mg PO DAILY [facility] Last Admin: 04/06/17 09:53 Dose: 81 mg Atorvastatin Calcium (Lipitor) 40 mg PO HS [facility] Last Admin: 04/05/17 22:18 Dose: 40 mg Bisacodyl (Dulcolax) 10 mg [place] PRN PRN PRN Reason: Constipation Calcium/Vitamin D (Oyster Shell Calcium/Vitamin D 500 Mg-200 Iu) 1 tab PO BID [facility] Last Admin: 04/06/17 09:55 Dose: 1 tab Cyanocobalamin (Vitamin B12 1000 Mcg/Ml Inj) 1,000 mcg IM DAILY [facility] Last Admin: 04/06/17 09:57 Dose: 1,000 mcg Duloxetine HCl (Cymbalta) 20 mg PO DAILY [facility] Last Admin: 04/06/17 09:56 Dose: 20 mg Ergocalciferol (Drisdol 50,000 Intl Units Cap) 1 cap PO QWK [facility] Gabapentin (Neurontin) 100 mg PO TID [facility] Last Admin: 04/06/17 09:54 Dose: 100 mg Ibuprofen (Motrin Tab) 600 mg PO Q8 PRN PRN Reason: Pain, moderate (4-7) Last Admin: 04/06/17 10:04 Dose: 600 mg Lamotrigine (Lamictal) 25 mg PO BID [facility] Last Admin: 04/06/17 09:54 Dose: 25 mg Loratadine (Claritin) 10 mg PO DAILY [facility] Last Admin: 04/06/17 09:56 Dose: 10 mg Magnesium Hydroxide (Milk Of Magnesia) 30 ml PO HS [facility] Last Admin: 04/05/17 22:21 Dose: Not Given Meclizine HCl (Antivert) 12.5 mg PO TID PRN PRN Reason: Dizziness Oxybutynin Chloride (Ditropan Tab) 5 mg PO BID [facility] Last Admin: 04/06/17 09:57 Dose: 5 mg Fluticasone/Salmeterol (Advair Diskus 500/50) 1 puff IH Q12 [facility] Last Admin: 04/06/17 09:53 Dose: 1 puff - Labs Labs: 04/06/17 10:35 04/06/17 10:35 PT 13.0 Seconds (9.8-13.1) 04/01/17 11:23 INR 1.2 (0.9-1.2) 04/01/17 11:23 APTT 29.3 Seconds (25.6-37.1) 04/01/17 11:23 - Constitutional Appears: Chronically Ill - Head Exam Head Exam: NORMAL INSPECTION - Eye Exam Eye Exam: PERRL - ENT Exam ENT Exam: Normal Oropharynx - Neck Exam Neck Exam: Normal Inspection - Respiratory Exam Respiratory Exam: Clear to Ausculation Bilateral - Cardiovascular Exam Cardiovascular Exam: REGULAR RHYTHM, Murmur - GI/Abdominal Exam GI & Abdominal Exam: Soft, Normal Bowel Sounds - Extremities Exam Extremities Exam: Tenderness Additional comments: mild R L knee - Back Exam Back Exam: tenderness - Neurological Exam Additional comments: confused , generalized weakness , no focal motor/ sensory deficit - Psychiatric Exam Psychiatric exam: Anxious - Skin Skin Exam: Warm Assessment and Plan (1) Spinal compression fracture Assessment & Plan: 2nd to fall and osteoporosis Status: Acute (2) Dementia Status: Acute (3) Syncope Assessment & Plan: 2nd to seizure Status: Acute (4) Frequent falls Status: Acute (5) Back pain Status: Acute (6) Generalized weakness Status: Chronic (7) Compression fx, thoracic spine Assessment & Plan: chronic 2nd to previous multiple falls and osteoporosis Status: Chronic (8) Seizure disorder Status: Chronic (9) Dyslipidemia Status: Chronic (10) Gait instability Status: Chronic (11) Osteoarthrosis involving multiple sites Status: Chronic (12) Seizure Status: Chronic (13) Asthma Status: Chronic (14) Depression with anxiety Status: Chronic - Assessment and Plan (Free Text) Plan: Neurology and Orthopedic consult appreciated , improved stable to be discharged see ins/med sheet, I will follow Patient in Care Home
[2017-04-06 15:55] VITALS: BP 124/70; PULSE 98; TEMP 98.8; O2SAT 94
--- NOTE | 2017-04-06 23:58 | CP.PCM.PN ---
Subjective - Date & Time of Evaluation Date of Evaluation: 04/06/17 Time of Evaluation: 17:00 - Subjective Subjective: Patient Mental status has slightly improved being more able to express herself. She ia cleared by Orthopedics who advise to treat her multiple vertebral Fractures by Pain management. Cleared by Podiatry for discharge and transfer back to her care home. Neurologically stable, demented. Patient is discharged to her care home [facility]. IMPRESSION of T spine, Lumbar spine MRI without contrast: 1. An acute to subacute moderate compression fracture of T10 vertebral body is identified with minimal similar fracture question in the posterior its upper segment of T11. No significant stenosis results or definite fragmentation. No definitive disc herniation. Transverse process fractures are questioned versus contusions of the bilateral T10 and left T9 transverse processes. 2. Chronic compression fractures are seen T5, T6, and T9 incidentally. No spondylolisthesis. Incidental chronic compression fractures of L1, and L3 with prominent Schmorl's node at the upper endplate of L2. Objective - Vital Signs/Intake and Output Vital Signs (last 24 hours): Temp Pulse Resp BP Pulse Ox 98.8 F 98 H 20 124/70 94 L 04/06/17 15:54 04/06/17 15:54 04/06/17 15:54 04/06/17 15:54 04/06/17 15:54 Intake and Output: 04/06/17 04/07/17 18:59 06:59 Intake Total 1000 Balance 1000 - Labs Labs: 04/06/17 10:35 04/06/17 10:35 PT 13.0 Seconds (9.8-13.1) 04/01/17 11:23 INR 1.2 (0.9-1.2) 04/01/17 11:23 APTT 29.3 Seconds (25.6-37.1) 04/01/17 11:23 Assessment and Plan (1) Gait instability Status: Chronic (2) Back pain Status: Acute (3) Seizure Status: Chronic (4) Osteoarthrosis involving multiple sites Status: Chronic (5) Urinary incontinence Status: Acute (6) Radiculopathy Status: Acute
== END 2017-04-06 19:00 | DRG 543 ==
LOC: H.ER 09:44 → H.ERHOLD 15:24 → H.TEL 19:06
PROVIDERS: ADMIT Internal Medicine Pulmonary Disease; ATTEND Internal Medicine Pulmonary Disease
PROC: 0HBRXZZ Excision of Toe Nail, External Approach (ICD-10-PCS; principal; 2017-04-06)
PROC: 0HBRXZZ Excision of Toe Nail, External Approach (ICD-10-PCS; 2017-04-06)
PROC: 0HBRXZZ Excision of Toe Nail, External Approach (ICD-10-PCS; 2017-04-06)
PROC: 0HBRXZZ Excision of Toe Nail, External Approach (ICD-10-PCS; 2017-04-06)
PROC: 0HBRXZZ Excision of Toe Nail, External Approach (ICD-10-PCS; 2017-04-06)
PROC: 0HBRXZZ Excision of Toe Nail, External Approach (ICD-10-PCS; 2017-04-06)
PROC: 0HBRXZZ Excision of Toe Nail, External Approach (ICD-10-PCS; 2017-04-06)
PROC: 0HBRXZZ Excision of Toe Nail, External Approach (ICD-10-PCS; 2017-04-06)
PROC: 0HBRXZZ Excision of Toe Nail, External Approach (ICD-10-PCS; 2017-04-06)
PROC: 0HBRXZZ Excision of Toe Nail, External Approach (ICD-10-PCS; 2017-04-06)
DX: M80.08XA Age-related osteoporosis with current pathological fracture, vertebra(e), initial encounter for fracture (principal); S22.079A Unspecified fracture of T9-T10 vertebra, initial encounter for closed fracture; F03.90 Unspecified dementia, unspecified severity, without behavioral disturbance, psychotic disturbance, mood disturbance, and anxiety; G40.909 Epilepsy, unspecified, not intractable, without status epilepticus; E78.5 Hyperlipidemia, unspecified; I10 Essential (primary) hypertension; M19.90 Unspecified osteoarthritis, unspecified site; L60.8 Other nail disorders; M40.204 Unspecified kyphosis, thoracic region; M54.14 Radiculopathy, thoracic region; R32 Unspecified urinary incontinence; G44.1 Vascular headache, not elsewhere classified; H91.92 Unspecified hearing loss, left ear; R26.89 Other abnormalities of gait and mobility; J45.909 Unspecified asthma, uncomplicated; F41.8 Other specified anxiety disorders; F32.9 Major depressive disorder, single episode, unspecified; W19.XXXA Unspecified fall, initial encounter; R29.6 Repeated falls; Z91.81 History of falling; Z88.0 Allergy status to penicillin; Y93.9 Activity, unspecified; Y92.129 Unspecified place in nursing home as the place of occurrence of the external cause

== ENCOUNTER 2017-05-05 20:10 | Inpatient (IN) | payer MEDICARE, MEDICAID ==
[2017-05-05 20:13] VITALS: BMI 25.6
--- NOTE | 2017-05-05 21:05 | ED PDOC ---
HPI: Trauma/Fall - HPI Time Seen by Provider: 05/05/17 20:33 Chief Complaint (Nursing): Trauma Chief Complaint (Provider): fall History Per: EMS, Other (longterm records) Injury Occurred (Timing): Hours Ago: Additional History Per: EMS, [facility] Additional Complaint(s): 81 y/o female brought in by EMS for evaluation of left hip pain status-post fall. As per Senia Nurse at [facility], patient was trying to sit in her wheel chair with assistance from [employer] and patient slipped, landed on left side. Patient with complaints of pain to left hip, but HPI slightly limited due to history of dementia. Past Medical History Reviewed: Historical Data, Nursing Documentation, Vital Signs Vital Signs: Last Vital Signs Temp 98.4 F 05/06/17 00:58 Pulse 111 H 05/06/17 00:58 Resp 18 05/06/17 00:58 BP 160/89 H 05/06/17 00:58 Pulse Ox 94 L 05/06/17 00:58 - Medical History PMH: Anxiety, Arthritis (poly), Asthma, Back Problems, Dementia, Depression, Fractures (L wrist), HTN, Hypercholesterolemia, Osteoporosis, Seizures Denies: HIV, Chronic Kidney Disease - Family History Family History: States: Unknown Family Hx, CAD - Immunization History Hx Tetanus Toxoid Vaccination: No - Home Medications Home Medications: Ambulatory Orders Medication Instructions Recorded Acetaminophen [Tylenol 325mg tab] 650 mg PO Q6H 05/06/17 Aspirin [Aspirin Chewable] 81 mg PO DAILY 05/06/17 Atorvastatin [Lipitor] 40 mg PO HS 05/06/17 Bisacodyl [Fast Relief Laxative] 1 supp [place] PRN PRN 05/06/17 Calcium Carbonate/Vitamin D3 1 tab PO BID 05/06/17 [Calcium 600 + Vit D Tablet] Cyanocobalamin [Vitamin B12 1000 1,000 mcg IM Q30D 05/06/17 mcg/ml Inj] DULoxetine [Cymbalta] 20 mg PO DAILY 05/06/17 Divalproex [Depakote Sprinkles] 1 cap PO DAILY 05/06/17 Ergocalciferol (Vitamin D2) 50,000 unit PO QWK 05/06/17 [Vitamin D2] Fluticasone/Salmeterol 500/50 1 puff PO Q12H 05/06/17 [Advair Diskus 500/50] Gabapentin [Neurontin] 100 mg PO TID 05/06/17 Ibuprofen [Motrin] 600 mg PO Q8H 05/06/17 Magnesium Hydroxide [Milk Of 30 ml PO PRN PRN 05/06/17 Magnesia] Meclizine [Antivert] 12.5 mg PO TID 05/06/17 Oxybutynin XL [Ditropan XL] 15 mg PO DAILY 05/06/17 lamoTRIgine [LaMICtal] 25 mg PO TID 05/06/17 - Allergies Allergies/Adverse Reactions: Allergies Allergy/AdvReac Type Severity Reaction Status Date / Time Penicillins Allergy RASH Verified 05/05/17 20:13 Review of Systems ROS Statement: Except As Marked, All Systems Reviewed And Found Negative Musculoskeletal: Positive for: Leg Pain (left hip) Physical Exam - Reviewed Nursing Documentation Reviewed: Yes Vital Signs Reviewed: Yes - Physical Exam Appears: Positive for: Well, Non-toxic, No Acute Distress Head Exam: Positive for: ATRAUMATIC, NORMAL INSPECTION, NORMOCEPHALIC Skin: Positive for: Normal Color Eye Exam: Positive for: Normal appearance ENT: Positive for: Normal ENT Inspection Cardiovascular/Chest: Positive for: Regular Rate, Rhythm Respiratory: Positive for: Normal Breath Sounds Pulses-Dorsalis Pedis (L): 2+ Pulses-Dorsalis Pedis (R): 2+ Pulses-Post. Tibialis (L): 2+ Pulses-Post. Tibialis (R): 2+ Gastrointestinal/Abdominal: Positive for: Normal Exam Back: Positive for: Normal Inspection Extremity: Positive for: Normal ROM (left lower extremity extended, unable to flex due to pain superiorly), Capillary Refill, Other (left foot externally rotated. Tender to palpate left hip with + proximal leg swelling). Negative for : Pedal Edema, Calf Tenderness Neurologic/Psych: Positive for: Alert, Oriented (x2) - Laboratory Results Result Diagrams: 05/05/17 21:25 05/05/17 21:25 - ECG ECG: Positive for: Viewed By Me (reviewed by ED attending) ECG Rhythm: Positive for: Sinus Rhythm O2 Sat by Pulse Oximetry: 95 - Radiology X-Ray: Viewed By Me X-Ray Interpretation: No Acute Disease - Progress ED Course And Treament: labs, left hip xray, chest xray, ekg EXAM: XR Left Hip With Pelvis When Performed, 2 or 3 Views CLINICAL HISTORY: 81 years old, female; Pain; Hip pain and pelvic pain; Left hip; Additional info : Fall, pain TECHNIQUE: Two or three views of the left hip, with pelvis when performed. COMPARISON: No relevant prior studies available. FINDINGS: Bones/joints: Comminuted intratrochanteric fracture left femur. Varus angulation. Equivocal nondisplaced fracture left inferior pubic ramus. No dislocation. Soft tissues: Probable injection granulomas within gluteal soft tissues. IMPRESSION: 1. Left proximal femur fracture. 2. Incidental/non-acute findings are described above. EXAM: CT Head Without Intravenous Contrast CLINICAL HISTORY: 81 years old, female; Injury or trauma; Fall; Initial encounter; Concussion / head injury; Consciousness not specified; Additional info: Fall. Sent phy. Doc. TECHNIQUE: Axial computed tomography images of the head/brain without intravenous contrast. All CT scans at this facility use one or more dose reduction techniques, viz.: automated exposure control; ma/kV adjustment per patient size (including targeted exams where dose is matched to indication; i.e. head); or iterative reconstruction technique. Coronal and sagittal reformatted images were created and reviewed. COMPARISON: CT - HEAD W/O CONTRAST 2017-04-01 10:42 FINDINGS: Brain: Moderate atrophy. No intracranial hemorrhage. No mass. Few scattered foci of decreased attenuation within periventricular/subcortical white matter. No edema. Ventricles: No hydrocephalus. Bones/joints: No acute fracture. Soft tissues: Unremarkable. Vasculature: Atherosclerotic disease of intracranial arteries. Sinuses: Scattered minimal mucosal thickening. Mild mucus within sphenoid sinuses. Mastoid air cells: No mastoid effusion. Orbits: Unremarkable as visualized. IMPRESSION: 1. No intracranial hemorrhage. 2. Nonspecific white matter changes. 3. Incidental/non-acute findings are described above. Case discussed with Dr. Lara for admission, who recommends ortho consult with Dr. Jabari Barboza aware of consult. baeza ordered, flower traction ordered, [facility] CT ordered EXAM: CT Pelvis Without Intravenous Contrast CLINICAL HISTORY: 81 years old, female; Pain; Hip; Left; Additional info: Left hip fracture ([facility] ct) TECHNIQUE: Axial computed tomography images of the pelvis without intravenous contrast. All CT scans at this facility use one or more dose reduction techniques, viz.: automated exposure control; ma/kV adjustment per patient size (including targeted exams where dose is matched to indication; i.e. head); or iterative reconstruction technique. Coronal and sagittal reformatted images were created and reviewed. COMPARISON: CT - PELVIS W/O CONTRAST 2016-09-11 14:41 FINDINGS: Bones/joints: Comminuted intertrochanteric fracture left femur. Chronic fracture deformity left inferior pubic ramus. Mild degenerative changes of lower lumbar spine. No dislocation. Chondrocalcinosis of pubic symphysis. Soft tissues: Injection granulomas within gluteal soft tissues. Mild soft tissue swelling/stranding about left hip. Vasculature: Atherosclerotic disease of visualized arteries. Stomach and bowel: Colonic diverticula. Bladder: Baeza catheter. Other findings: Varus angulation. IMPRESSION: 1. Left proximal femur fracture. 2. Incidental/non-acute findings are described above. IV levaquin dose ordered for UTI on u/a urine culture obtained Disposition - Clinical Impression Clinical Impression: Hip fracture, left, Urinary tract infection - Patient ED Disposition Is Patient to be Admitted: Yes - Disposition Disposition Time: 23:30 Condition: FAIR - Pt Status Changed To: Hospital Disposition Of: Inpatient - Admit Certification Admit to Inpatient:: After my assessment, the patient will require hospitalization for at least two midnights. This is because of the severity of symptoms shown, intensity of services needed, and/or the medical risk in this patient being treated as an outpatient. - POA Present On Arrival: Falls Or Trauma
[2017-05-05 21:28] LABS: BASO # 0.1 K/uL (0.0-0.2); BASO % 0.7 % (0.0-2.0); EOS # 0.1 K/uL (0.0-0.7); EOS % 1.5 % (0.0-4.0); HEMOGLOBIN 13.6 g/dL (12.0-16.0); LYMPH # 1.6 K/uL (1.0-4.3); MEAN CELL VOLUME 87.5 fl (81.0-99.0); MEAN CORPUSCULAR HEMOGLOBIN 28.2 pg (27.0-31.0); MEAN CORPUSCULAR HGB CONC 32.2 g/dL (33.0-37.0); MEAN PLATELET VOLUME 9.4 fl (7.2-11.7); MONO # 0.8 K/uL (0.0-0.8); MONO % 8.6 % (0.0-10.0); NEUT # 6.2 K/uL (1.8-7.0); NEUT % 71.2 % (50.0-75.0); NRBC % 0.1 % (0.0-0.0); RBC 4.82 Mil/uL (3.80-5.20); RED CELL DISTRIBUTION WIDTH 14.7 % (11.5-14.5); WHITE BLOOD COUNT 8.7 K/uL (4.8-10.8)
[2017-05-05 21:36] LABS: INR 1.2 (0.9-1.2); PARTIAL THROMBOPLASTIN TIME 32.1 Seconds (25.6-37.1); PROTHROMBIN TIME 13.2 Seconds (9.8-13.1)
[2017-05-05 21:53] LABS: ALB/GLOB RATIO 1.2 (1.0-2.1); ALBUMIN 4.2 g/dL (3.5-5.0); ALT/SGPT 35 U/L (9-52); AST/SGOT 29 U/L (14-36); BLOOD UREA NITROGEN 20 mg/dl (7-17); CALCIUM 9.4 mg/dL (8.4-10.2); GFR AFRICAN-AMERICAN > 60; GFR NON-AFRICAN AMERICAN > 60
--- NOTE | 2017-05-05 23:02 | RAD ---
EXAM: XR Left Hip With Pelvis When Performed, 2 or 3 Views CLINICAL HISTORY: 81 years old, female; Pain; Hip pain and pelvic pain; Left hip; Additional info: Fall, pain TECHNIQUE: Two or three views of the left hip, with pelvis when performed. COMPARISON: No relevant prior studies available. FINDINGS: Bones/joints: Comminuted intratrochanteric fracture left femur. Varus angulation. Equivocal nondisplaced fracture left inferior pubic ramus. No dislocation. Soft tissues: Probable injection granulomas within gluteal soft tissues. IMPRESSION: 1. Left proximal femur fracture. 2. Incidental/non-acute findings are described above.
--- NOTE | 2017-05-05 23:30 | CT ---
EXAM: CT Head Without Intravenous Contrast CLINICAL HISTORY: 81 years old, female; Injury or trauma; Fall; Initial encounter; Concussion / head injury; Consciousness not specified; Additional info: Fall. Sent phy. Doc. TECHNIQUE: Axial computed tomography images of the head/brain without intravenous contrast. All CT scans at this facility use one or more dose reduction techniques, viz.: automated exposure control; ma/kV adjustment per patient size (including targeted exams where dose is matched to indication; i.e. head); or iterative reconstruction technique. Coronal and sagittal reformatted images were created and reviewed. COMPARISON: CT - HEAD W/O CONTRAST 2017-04-01 10:42 FINDINGS: Brain: Moderate atrophy. No intracranial hemorrhage. No mass. Few scattered foci of decreased attenuation within periventricular/subcortical white matter. No edema. Ventricles: No hydrocephalus. Bones/joints: No acute fracture. Soft tissues: Unremarkable. Vasculature: Atherosclerotic disease of intracranial arteries. Sinuses: Scattered minimal mucosal thickening. Mild mucus within sphenoid sinuses. Mastoid air cells: No mastoid effusion. Orbits: Unremarkable as visualized. IMPRESSION: 1. No intracranial hemorrhage. 2. Nonspecific white matter changes. 3. Incidental/non-acute findings are described above.
--- NOTE | 2017-05-06 00:50 | CT ---
EXAM: CT Pelvis Without Intravenous Contrast CLINICAL HISTORY: 81 years old, female; Pain; Hip; Left; Additional info: Left hip fracture ([facility] ct) TECHNIQUE: Axial computed tomography images of the pelvis without intravenous contrast. All CT scans at this facility use one or more dose reduction techniques, viz.: automated exposure control; ma/kV adjustment per patient size (including targeted exams where dose is matched to indication; i.e. head); or iterative reconstruction technique. Coronal and sagittal reformatted images were created and reviewed. COMPARISON: CT - PELVIS W/O CONTRAST 2016-09-11 14:41 FINDINGS: Bones/joints: Comminuted intertrochanteric fracture left femur. Chronic fracture deformity left inferior pubic ramus. Mild degenerative changes of lower lumbar spine. No dislocation. Chondrocalcinosis of pubic symphysis. Soft tissues: Injection granulomas within gluteal soft tissues. Mild soft tissue swelling/stranding about left hip. Vasculature: Atherosclerotic disease of visualized arteries. Stomach and bowel: Colonic diverticula. Bladder: De La Cruz catheter. Other findings: Varus angulation. IMPRESSION: 1. Left proximal femur fracture. 2. Incidental/non-acute findings are described above. EXAM: CT Right Lower Extremity Without Intravenous Contrast, Knee CLINICAL HISTORY: 81 years old, female; Pain; Hip; Left; Additional info: Left hip fracture ([facility] ct) TECHNIQUE: Axial computed tomography images of the right knee without intravenous contrast. COMPARISON: No relevant prior studies available. FINDINGS: Bones/joints: No acute fracture. Mild osteoarthrosis of medial compartment. No dislocation. No significant joint effusion. Chondrocalcinosis of menisci. Soft tissues: Vascular calcifications. IMPRESSION: 1. No fracture. 2. Incidental/non-acute findings are described above. EXAM: CT Left Lower Extremity Without Intravenous Contrast, Knee CLINICAL HISTORY: 81 years old, female; Pain; Hip; Left; Additional info: Left hip fracture ([facility] ct) TECHNIQUE: Axial computed tomography images of the left knee without intravenous contrast. COMPARISON: No relevant prior studies available. FINDINGS: Bones/joints: No acute fracture. Moderate osteoarthrosis of medial compartment. No dislocation. No significant joint effusion. Chondrocalcinosis of menisci. Soft tissues: Vascular calcifications.
[2017-05-06 01:09] LABS: SQUAMOUS EPITHIAL 3 /hpf (0-5); URINE BACTERIA OCC (<OCC); URINE BILIRUBIN NEGATIVE (NEGATIVE); URINE BLOOD NEGATIVE (NEGATIVE); URINE CLARITY SLIGHTY-CLOUDY (Clear); URINE COLOR YELLOW (YELLOW); URINE GLUCOSE (UA) NEG (Normal); URINE HYALINE CAST 0-2 /hpf (0-2); URINE LEUKOCYTE ESTERASE SMALL Leu/uL (Negative); URINE NITRATE NEGATIVE (NEGATIVE); URINE PROTEIN 30 mg/dL (NEGATIVE)
[2017-05-06] MEDS ORDERED: Magnesium Hydroxide Susp 30 ml UD PO PRN (02:32)
[2017-05-06] MEDS ORDERED: Fluticasone-Salmeterol 500-50mcg Diskus IH SCH (02:45)
[2017-05-06] MEDS ORDERED: Ergocalciferol 50,000 Intl Units Cap PO SCH (02:45)
[2017-05-06] MEDS: Enoxaparin 40 mg Syringe SC SCH (03:03)
[2017-05-06] MEDS: Oxycodone/Acetaminophen 5/325 mg Tab PO PRN ×3 (03:08→22:21)
[2017-05-06] MEDS ORDERED: levoFLOXacin 500 mg in D5W 500 MG/100 ML BAG IVPB STA (03:35)
[2017-05-06 05:43] LABS: HEMOGLOBIN 12.4 g/dL (12.0-16.0); MEAN CELL VOLUME 86.6 fl (81.0-99.0); MEAN CORPUSCULAR HEMOGLOBIN 28.3 pg (27.0-31.0); MEAN CORPUSCULAR HGB CONC 32.7 g/dL (33.0-37.0); RBC 4.36 Mil/uL (3.80-5.20); RED CELL DISTRIBUTION WIDTH 14.3 % (11.5-14.5)
[2017-05-06 06:09] LABS: ALB/GLOB RATIO 1.2 (1.0-2.1); ALT/SGPT 32 U/L (9-52); AST/SGOT 29 U/L (14-36); BLOOD UREA NITROGEN 17 mg/dl (7-17); CALCIUM 8.9 mg/dL (8.4-10.2); GFR AFRICAN-AMERICAN > 60; GFR NON-AFRICAN AMERICAN > 60; HDL CHOLESTEROL 51 MG/DL (30-70); LDL CHOLESTEROL 50 mg/dL (0-129)
--- NOTE | 2017-05-06 07:00 | CP.PCM.CON ---
<Corin Monsalve - Last Filed: 05/06/17 08:02> History of Present Illness - History of Present Illness History of Present Illness: Cardiology consult note for Dr. Varghese 81 year old female with past medical history of HTN, HLD, arthiritis, asthma, anxiety, depression, osteoporosis, seizure d/o and dementia presented to hospital after experiencing a mechanical fall at long-term. Pt was found to have left proximal femur fracture. Cardiology is consulted for cardiac clearance for surgery. Pt has history of dementia and therefore, history is obtained from chart. 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 CT of LE in ED showed proximal left femur fracture. Per documents from long-term, pt is able to ambulate and use commode with assistance. The most recent echo from 2016 showed normal EF of 65-70% with concentric LVH. Currently pt is not answering questions due to pain so ROS unobtainable. Awake and spontaneous eye opening with verbal stimuli. PMHx: stated above Sx: kyphoplasty L3 in 2014, tubal ligations Allergies: penicillin Social: lives in long-term, denies smoking Medications: see chart for long-term meds Review of Systems - Review of Systems Systems not reviewed;Unavailable: Dementia Past Patient History - Infectious Disease Hx of Infectious Diseases: None - Past Medical History & Family History Past Medical History?: Yes - Past Social History Smoking Status: Unobtained - CARDIAC Hx Cardiac Disorders: Yes Hx Hypercholesterolemia: Yes Hx Hypertension: Yes - PULMONARY Hx Respiratory Disorders: Yes Hx Asthma: Yes - NEUROLOGICAL Hx Neurological Disorder: Yes Hx Dementia: Yes Hx Seizures: Yes - HEENT Hx HEENT Problems: No - RENAL Hx Chronic Kidney Disease: No - ENDOCRINE/METABOLIC Hx Endocrine Disorders: No - HEMATOLOGICAL/ONCOLOGICAL Hx Blood Disorders: No Hx Human Immunodeficiency Virus (HIV): No - INTEGUMENTARY Hx Dermatological Problems: No - MUSCULOSKELETAL/RHEUMATOLOGICAL Hx Musculoskeletal Disorders: Yes Hx Arthritis: Yes (poly) Hx Fractures: Yes (L wrist) Hx Osteoporosis: Yes - GASTROINTESTINAL Hx Gastrointestinal Disorders: Yes Hx Constipation: Yes - GENITOURINARY/GYNECOLOGICAL Hx Genitourinary Disorders: No - PSYCHIATRIC Hx Psychophysiologic Disorder: Yes Hx Anxiety: Yes Hx Depression: Yes - SURGICAL HISTORY Hx Surgeries: Yes Hx Tubal Ligation: Yes - ANESTHESIA Hx Anesthesia: Yes Hx Anesthesia Reactions: No Hx Malignant Hyperthermia: No Has any member of the family had a problem w/ anesthesia?: No Meds Allergies/Adverse Reactions: Allergies Allergy/AdvReac Type Severity Reaction Status Date / Time Penicillins Allergy RASH Verified 05/05/17 20:13 - Medications Medications: Current Medications Acetaminophen (Tylenol 325mg Tab) 650 mg PO Q6 PRN PRN Reason: Pain, Mild (1-3) Aspirin (Aspirin Chewable) 81 mg PO DAILY [facility] Atorvastatin Calcium (Lipitor) 40 mg PO HS [facility] Bisacodyl (Dulcolax) 10 mg WV Q48H PRN PRN Reason: Constipation Calcium/Vitamin D (Oyster Shell Calcium/Vitamin D 500 Mg-200 Iu) 1 tab PO DAILY [facility] Cyanocobalamin (Vitamin B12 1000 Mcg/Ml Inj) 1,000 mcg IM Q30D [facility] Divalproex Sodium (Depakote Sprinkles) 125 mg PO DAILY [facility] Duloxetine HCl (Cymbalta) 20 mg PO DAILY [facility] Enoxaparin Sodium (Lovenox) 40 mg SC DAILY [facility] PRN Reason: Protocol Last Admin: 05/06/17 03:03 Dose: 40 mg Ergocalciferol (Drisdol 50,000 Intl Units Cap) 1 cap PO QWK [facility] Gabapentin (Neurontin) 100 mg PO TID [facility] Lamotrigine (Lamictal) 25 mg PO TID [facility] Magnesium Hydroxide (Milk Of Magnesia) 30 ml PO Q48H PRN PRN Reason: Constipation Meclizine HCl (Antivert) 12.5 mg PO TID [facility] Oxybutynin Chloride (Ditropan Tab) 5 mg PO TID [facility] Oxycodone/Acetaminophen (Percocet 5/325 Mg Tab) 1 tab PO Q4 PRN PRN Reason: Pain, severe (8-10) Stop: 05/09/17 02:32 Last Admin: 05/06/17 03:08 Dose: 1 tab Fluticasone/Salmeterol (Advair Diskus 500/50) 1 puff IH Q12 [facility] Physical Exam - Constitutional Appears: Non-toxic - Head Exam Head Exam: ATRAUMATIC - ENT Exam ENT Exam: Mucous Membranes Moist - Respiratory Exam Respiratory Exam: Clear to Auscultation Bilateral. absent: Accessory Muscle Use , Rales, Rhonchi, Wheezes, Respiratory Distress - Cardiovascular Exam Cardiovascular Exam: REGULAR RHYTHM, +S1, +S2. absent: Diastolic murmur, Gallop , Rubs, Systolic Murmur - GI/Abdominal Exam GI & Abdominal Exam: Normal Bowel Sounds, Soft. absent: Distended, Firm, Guarding, Rigid, Tenderness - Extremities Exam Extremities exam: Positive for: pedal pulses present. Negative for: pedal edema Additional comments: left lower extremity tenderness to palpation - Neurological Exam Additional comments: not A&O - Skin Skin Exam: Dry, Intact, Normal Color, Warm Results - Vital Signs Recent Vital Signs: Last Vital Signs Temp 98.4 F 05/06/17 00:58 Pulse 111 H 05/06/17 00:58 Resp 18 05/06/17 00:58 BP 160/89 H 05/06/17 00:58 Pulse Ox 95 05/06/17 03:39 - Labs Result Diagrams: 05/06/17 05:00 05/06/17 05:00 Labs: Laboratory Results - last 24 hr 05/05/17 05/05/17 05/05/17 21:25 21:25 21:25 WBC 8.7 RBC 4.82 Hgb 13.6 Hct 42.2 MCV 87.5 MCH 28.2 MCHC 32.2 L RDW 14.7 H Plt Count 119 L MPV 9.4 Neut % (Auto) 71.2 Lymph % (Auto) 18.0 L [place] % (Auto) 8.6 Eos % (Auto) 1.5 Baso % (Auto) 0.7 Neut # 6.2 Lymph # 1.6 [place] # 0.8 Eos # 0.1 Baso # 0.1 PT 13.2 H INR 1.2 APTT 32.1 Sodium 138 Potassium 4.1 Chloride 102 Carbon Dioxide 27 Anion Gap 13 BUN 20 H Creatinine 0.5 L Est GFR ( Amer) > 60 Est GFR (Non-Af Amer) > 60 POC Glucose (mg/dL) Random Glucose 128 H Calcium 9.4 Total Bilirubin 1.0 AST 29 ALT 35 Alkaline Phosphatase 85 Troponin I < 0.0120 Total Protein 7.7 Albumin 4.2 Globulin 3.4 Albumin/Globulin Ratio 1.2 Triglycerides Cholesterol LDL Cholesterol Direct HDL Cholesterol TSH 3rd Generation Urine Color Urine Clarity Urine pH Ur Specific Leonard Urine Protein Urine Glucose (UA) Urine Ketones Urine Blood Urine Nitrate Urine Bilirubin Urine Urobilinogen Ur Leukocyte Esterase Urine RBC (Auto) Urine Microscopic WBC Ur Squamous Epith Cells Urine Bacteria Hyaline Casts 05/05/17 05/06/17 05/06/17 22:29 00:00 05:00 WBC RBC Hgb Hct MCV MCH MCHC RDW Plt Count MPV Neut % (Auto) Lymph % (Auto) [place] % (Auto) Eos % (Auto) Baso % (Auto) Neut # Lymph # [place] # Eos # Baso # PT INR APTT Sodium 140 Potassium 3.5 L Chloride 101 Carbon Dioxide 29 Anion Gap 14 BUN 17 Creatinine 0.4 L Est GFR ( Amer) > 60 Est GFR (Non-Af Amer) > 60 POC Glucose (mg/dL) 152 H Random Glucose 169 H Calcium 8.9 Total Bilirubin 1.1 AST 29 ALT 32 Alkaline Phosphatase 72 Troponin I Total Protein 7.2 Albumin 4.0 Globulin 3.3 Albumin/Globulin Ratio 1.2 Triglycerides 26 D Cholesterol 125 LDL Cholesterol Direct 50 HDL Cholesterol 51 TSH 3rd Generation 0.65 Urine Color Yellow Urine Clarity Slighty-cloudy Urine pH 6.0 Ur Specific Leonard 1.024 Urine Protein 30 Urine Glucose (UA) Neg Urine Ketones 20 Urine Blood Negative Urine Nitrate Negative Urine Bilirubin Negative Urine Urobilinogen 4.0 H Ur Leukocyte Esterase Small Urine RBC (Auto) 1 Urine Microscopic WBC 11 H Ur Squamous Epith Cells 3 Urine Bacteria Occ H Hyaline Casts 0-2 Assessment & Plan - Assessment and Plan (Free Text) Assessment: 81 year old female with past medical history of HTN, HLD, arthritis, asthma, anxiety, depression, osteoporosis, seizure d/o and dementia is admitted to hospital for left proximal femur fracture and being seen for cardiac clearance. 1. Cardiac clearance for orthopedic surgery - Limited functional capacity - Recent echo from 09/2016 showed normal EF of 65-70% with concentric LHV - Will do stress test this am. Pt made NPO 2. Left femur fracture - Orthopedic consulted - Tylenol and percocet for pain 3. UTI - UA on admission was positive - Urine culture was ordered and patient received levaquin 4. HTN - Likely due to pain - Will continue to monitor VS 5. HLD - lipid panel checked is normal - Will continue home lipitor dose 6. Asthma - continue management per primary care team Case will be discussed with attending, Dr. Varghese - Date & Time Date: 05/06/17 Time: 07:01 <Juarez Varghese - Last Filed: 05/09/17 01:08> Meds - Medications Medications: Current Medications Acetaminophen (Tylenol 325mg Tab) 650 mg PO Q6 PRN PRN Reason: Pain, Mild (1-3) Aspirin (Aspirin Chewable) 81 mg PO DAILY [facility] Last Admin: 05/08/17 10:28 Dose: 81 mg Atorvastatin Calcium (Lipitor) 40 mg PO HS [facility] Last Admin: 05/08/17 21:14 Dose: 40 mg Bisacodyl (Dulcolax) 10 mg WV Q48H PRN PRN Reason: Constipation Calcium/Vitamin D (Oyster Shell Calcium/Vitamin D 500 Mg-200 Iu) 1 tab PO DAILY [facility] Last Admin: 05/08/17 10:30 Dose: 1 tab Cyanocobalamin (Vitamin B12 1000 Mcg/Ml Inj) 1,000 mcg IM Q30D [facility] Divalproex Sodium (Depakote Sprinkles) 125 mg PO DAILY [facility] Last Admin: 05/08/17 10:29 Dose: 125 mg Duloxetine HCl (Cymbalta) 20 mg PO DAILY [facility] Last Admin: 05/08/17 10:28 Dose: 20 mg Enoxaparin Sodium (Lovenox) 40 mg SC DAILY [facility] PRN Reason: Protocol Last Admin: 05/07/17 09:07 Dose: 40 mg Ergocalciferol (Drisdol 50,000 Intl Units Cap) 1 cap PO QWK [facility] Gabapentin (Neurontin) 100 mg PO TID [facility] Last Admin: 05/08/17 18:18 Dose: 100 mg Dextrose/Sodium Chloride (Dextrose 5%-0.45% Ns 500 Ml) 1,000 mls @ 70 mls/hr IV .[id number] [facility] Stop: 05/09/17 21:16 Lamotrigine (Lamictal) 25 mg PO TID [facility] Last Admin: 05/08/17 18:18 Dose: 25 mg Levofloxacin (Levaquin) 500 mg PO DAILY [facility] PRN Reason: Protocol Last Admin: 05/08/17 10:29 Dose: 500 mg Magnesium Hydroxide (Milk Of Magnesia) 30 ml PO Q48H PRN PRN Reason: Constipation Meclizine HCl (Antivert) 12.5 mg PO TID [facility] Last Admin: 05/08/17 18:17 Dose: 12.5 mg Nitroglycerin (Nitro-Bid 2% Oint) 1 ea TOP Q6H [facility] Last Admin: 05/08/17 23:32 Dose: 1 ea Oxybutynin Chloride (Ditropan Tab) 5 mg PO TID [facility] Last Admin: 05/08/17 18:18 Dose: 5 mg Oxycodone/Acetaminophen (Percocet 5/325 Mg Tab) 1 tab PO Q4 PRN PRN Reason: Pain, severe (8-10) Stop: 05/09/17 02:32 Last Admin: 05/08/17 18:35 Dose: 1 tab Pantoprazole Sodium (Protonix Ec Tab) 40 mg PO DAILY [facility] Last Admin: 05/08/17 10:30 Dose: 40 mg Fluticasone/Salmeterol (Advair Diskus 500/50) 1 puff IH Q12 [facility] Last Admin: 05/08/17 21:14 Dose: 1 puff Results - Vital Signs Recent Vital Signs: Last Vital Signs Temp 98.4 F 05/08/17 16:13 Pulse 98 H 05/08/17 23:32 Resp 20 05/08/17 16:13 BP 135/73 05/08/17 23:32 Pulse Ox 95 05/08/17 16:13 - Labs Result Diagrams: 05/08/17 07:20 05/08/17 07:20 Labs: Laboratory Results - last 24 hr 05/08/17 05/08/17 07:20 07:20 WBC 6.3 RBC 3.88 Hgb 11.1 L Hct 34.0 MCV 87.5 MCH 28.7 MCHC 32.7 L RDW 14.6 H Plt Count 95 L Sodium 142 Potassium 3.7 Chloride 102 Carbon Dioxide 35 H Anion Gap 9 L BUN 15 Creatinine 0.4 L Est GFR ( Amer) > 60 Est GFR (Non-Af Amer) > 60 Random Glucose 131 H Calcium 8.9 Attending/Attestation - Attestation I have personally seen and examined this patient.: Yes I have fully participated in the care of the patient.: Yes I have reviewed all pertinent clinical information: Yes Notes (Text): 05/09/17 01:08 needs stress testing prior to any surgical intervention
[2017-05-06 07:36] LABS: T4 7.94 ug/dl (5.5-11.0)
[2017-05-06 07:43] LABS: URIC ACID 1.8 mg/Dl (2.2-7.5)
[2017-05-06 07:55] LABS: PROTHROMBIN TIME 14.2 Seconds (9.8-13.1)
[2017-05-06 07:56] LABS: INR 1.3 (0.9-1.2)
[2017-05-06] MEDS: Calcium-Vit D 500 mg-200 Units Tab UD PO SCH ×2 (08:12→17:15)
[2017-05-06] MEDS: Divalproex 125 mg Sprinkle Capsule PO SCH ×2 (08:12→17:15)
[2017-05-06] MEDS: Fluticasone-Salmeterol 500-50mcg Diskus IH SCH ×2 (08:14→22:21)
[2017-05-06] MEDS ORDERED: OXYBUTYNIN 15 MG PO SCH (09:00)
[2017-05-06] MEDS ORDERED: Patient's Own Med (Calcium Carbonate/Vitamin D3 [Calcium 600 + Vit D Tablet] 1 TAB) PO SCH (09:00)
--- NOTE | 2017-05-06 09:34 | RAD ---
HISTORY: admit COMPARISON: Chest x-ray performed 04/01/17 TECHNIQUE: Chest, one view. FINDINGS: Examination markedly limited by habitus, patient obliquity, and hypoinflation. LUNGS: Prominent interstitial markings may be chronic. No focal consolidation. Please note that chest x-ray has limited sensitivity for the detection of pulmonary masses. PLEURA: No significant pleural effusion identified. No definite pneumothorax . CARDIOVASCULAR: Enlarged mediastinum likely exaggerated by patient obliquity and tortuous vasculature. Cardiomegaly. OSSEOUS STRUCTURES: No acute osseous abnormality identified. VISUALIZED UPPER ABDOMEN: Unremarkable. OTHER FINDINGS: None. IMPRESSION: Limited study. Enlarged mediastinum likely exaggerated by patient obliquity and tortuous vasculature. Cardiomegaly. Prominent interstitial markings may be chronic.
--- NOTE | 2017-05-06 09:41 | CP.PCM.CON ---
History of Present Illness - History of Present Illness History of Present Illness: Orthopedic consultation Dr. Barboza 81F with left hip pain after slipping from wheelchair at [place]. Patient demented, history from medical record. LM for son Steve Farah Review of Systems - Review of Systems Systems not reviewed;Unavailable: Dementia Past Patient History - Infectious Disease Hx of Infectious Diseases: None - Past Medical History & Family History Past Medical History?: Yes - Past Social History Smoking Status: Unobtained - CARDIAC Hx Cardiac Disorders: Yes Hx Hypercholesterolemia: Yes Hx Hypertension: Yes - PULMONARY Hx Respiratory Disorders: Yes Hx Asthma: Yes - NEUROLOGICAL Hx Neurological Disorder: Yes Hx Dementia: Yes Hx Seizures: Yes - HEENT Hx HEENT Problems: No - RENAL Hx Chronic Kidney Disease: No - ENDOCRINE/METABOLIC Hx Endocrine Disorders: No - HEMATOLOGICAL/ONCOLOGICAL Hx Blood Disorders: No Hx Human Immunodeficiency Virus (HIV): No - INTEGUMENTARY Hx Dermatological Problems: No - MUSCULOSKELETAL/RHEUMATOLOGICAL Hx Musculoskeletal Disorders: Yes Hx Arthritis: Yes (poly) Hx Fractures: Yes (L wrist) Hx Osteoporosis: Yes - GASTROINTESTINAL Hx Gastrointestinal Disorders: Yes Hx Constipation: Yes - GENITOURINARY/GYNECOLOGICAL Hx Genitourinary Disorders: No - PSYCHIATRIC Hx Psychophysiologic Disorder: Yes Hx Anxiety: Yes Hx Depression: Yes - SURGICAL HISTORY Hx Surgeries: Yes Hx Tubal Ligation: Yes - ANESTHESIA Hx Anesthesia: Yes Hx Anesthesia Reactions: No Hx Malignant Hyperthermia: No Has any member of the family had a problem w/ anesthesia?: No Meds Allergies/Adverse Reactions: Allergies Allergy/AdvReac Type Severity Reaction Status Date / Time Penicillins Allergy RASH Verified 05/05/17 20:13 - Medications Medications: Current Medications Acetaminophen (Tylenol 325mg Tab) 650 mg PO Q6 PRN PRN Reason: Pain, Mild (1-3) Aspirin (Aspirin Chewable) 81 mg PO DAILY [facility] Last Admin: 05/06/17 08:12 Dose: Not Given Atorvastatin Calcium (Lipitor) 40 mg PO HS [place] Bisacodyl (Dulcolax) 10 mg MT Q48H PRN PRN Reason: Constipation Calcium/Vitamin D (Oyster Shell Calcium/Vitamin D 500 Mg-200 Iu) 1 tab PO DAILY [facility] Last Admin: 05/06/17 08:12 Dose: Not Given Cyanocobalamin (Vitamin B12 1000 Mcg/Ml Inj) 1,000 mcg IM Q30D [facility] Divalproex Sodium (Depakote Sprinkles) 125 mg PO DAILY [facility] Last Admin: 05/06/17 08:12 Dose: Not Given Duloxetine HCl (Cymbalta) 20 mg PO DAILY [facility] Last Admin: 05/06/17 08:12 Dose: Not Given Enoxaparin Sodium (Lovenox) 40 mg SC DAILY [facility] PRN Reason: Protocol Last Admin: 05/06/17 03:03 Dose: 40 mg Ergocalciferol (Drisdol 50,000 Intl Units Cap) 1 cap PO QWK [facility] Gabapentin (Neurontin) 100 mg PO TID [facility] Last Admin: 05/06/17 08:12 Dose: Not Given Lamotrigine (Lamictal) 25 mg PO TID [facility] Last Admin: 05/06/17 08:12 Dose: Not Given Magnesium Hydroxide (Milk Of Magnesia) 30 ml PO Q48H PRN PRN Reason: Constipation Meclizine HCl (Antivert) 12.5 mg PO TID [facility] Last Admin: 05/06/17 08:12 Dose: Not Given Oxybutynin Chloride (Ditropan Tab) 5 mg PO TID [facility] Last Admin: 05/06/17 08:12 Dose: Not Given Oxycodone/Acetaminophen (Percocet 5/325 Mg Tab) 1 tab PO Q4 PRN PRN Reason: Pain, severe (8-10) Stop: 05/09/17 02:32 Last Admin: 05/06/17 03:08 Dose: 1 tab Fluticasone/Salmeterol (Advair Diskus 500/50) 1 puff IH Q12 [facility] Last Admin: 05/06/17 08:14 Dose: 1 puff Physical Exam - Constitutional Appears: Well, No Acute Distress - Expanded Lower Extremities Exam Left Hip exam: shortening, tenderness (calves soft NT neg homans +bucks traction +dp pulse, doesn't follow commands but moves ankle/toes duringn exam) - Neurological Exam Neurological exam: Alert - Skin Skin Exam: Dry, Intact, Normal Color, Warm Results - Vital Signs Recent Vital Signs: Last Vital Signs Temp 98.3 F 05/06/17 08:41 Pulse 114 H 05/06/17 08:41 Resp 20 05/06/17 08:41 BP 164/82 H 05/06/17 08:41 Pulse Ox 95 05/06/17 08:41 - Labs Result Diagrams: 05/06/17 05:00 05/06/17 05:00 Labs: Laboratory Results - last 24 hr 05/05/17 05/05/17 05/05/17 21:25 21:25 21:25 WBC 8.7 RBC 4.82 Hgb 13.6 Hct 42.2 MCV 87.5 MCH 28.2 MCHC 32.2 L RDW 14.7 H Plt Count 119 L MPV 9.4 Neut % (Auto) 71.2 Lymph % (Auto) 18.0 L [place] % (Auto) 8.6 Eos % (Auto) 1.5 Baso % (Auto) 0.7 Neut # 6.2 Lymph # 1.6 [place] # 0.8 Eos # 0.1 Baso # 0.1 PT 13.2 H INR 1.2 APTT 32.1 Sodium 138 Potassium 4.1 Chloride 102 Carbon Dioxide 27 Anion Gap 13 BUN 20 H Creatinine 0.5 L Est GFR ( Amer) > 60 Est GFR (Non-Af Amer) > 60 POC Glucose (mg/dL) Random Glucose 128 H Uric Acid Calcium 9.4 Total Bilirubin 1.0 AST 29 ALT 35 Alkaline Phosphatase 85 Troponin I < 0.0120 Total Protein 7.7 Albumin 4.2 Globulin 3.4 Albumin/Globulin Ratio 1.2 Triglycerides Cholesterol LDL Cholesterol Direct HDL Cholesterol Thyroxine (T4) TSH 3rd Generation Urine Color Urine Clarity Urine pH Ur Specific [place] Urine Protein Urine Glucose (UA) Urine Ketones Urine Blood Urine Nitrate Urine Bilirubin Urine Urobilinogen Ur Leukocyte Esterase Urine RBC (Auto) Urine Microscopic WBC Ur Squamous Epith Cells Urine Bacteria Hyaline Casts 05/05/17 05/06/17 05/06/17 22:29 00:00 05:00 WBC 7.0 RBC 4.36 Hgb 12.4 Hct 37.8 MCV 86.6 MCH 28.3 MCHC 32.7 L RDW 14.3 Plt Count 98 L D MPV Neut % (Auto) Lymph % (Auto) [place] % (Auto) Eos % (Auto) Baso % (Auto) Neut # Lymph # [place] # Eos # Baso # PT INR APTT Sodium Potassium Chloride Carbon Dioxide Anion Gap BUN Creatinine Est GFR ( Amer) Est GFR (Non-Af Amer) POC Glucose (mg/dL) 152 H Random Glucose Uric Acid Calcium Total Bilirubin AST ALT Alkaline Phosphatase Troponin I Total Protein Albumin Globulin Albumin/Globulin Ratio Triglycerides Cholesterol LDL Cholesterol Direct HDL Cholesterol Thyroxine (T4) TSH 3rd Generation Urine Color Yellow Urine Clarity Slighty-cloudy Urine pH 6.0 Ur Specific [place] 1.024 Urine Protein 30 Urine Glucose (UA) Neg Urine Ketones 20 Urine Blood Negative Urine Nitrate Negative Urine Bilirubin Negative Urine Urobilinogen 4.0 H Ur Leukocyte Esterase Small Urine RBC (Auto) 1 Urine Microscopic WBC 11 H Ur Squamous Epith Cells 3 Urine Bacteria Occ H Hyaline Casts 0-2 05/06/17 05/06/17 05:00 05:00 WBC RBC Hgb Hct MCV MCH MCHC RDW Plt Count MPV Neut % (Auto) Lymph % (Auto) [place] % (Auto) Eos % (Auto) Baso % (Auto) Neut # Lymph # [place] # Eos # Baso # PT 14.2 H INR 1.3 H APTT 32.0 Sodium 140 Potassium 3.5 L Chloride 101 Carbon Dioxide 29 Anion Gap 14 BUN 17 Creatinine 0.4 L Est GFR ( Amer) > 60 Est GFR (Non-Af Amer) > 60 POC Glucose (mg/dL) Random Glucose 169 H Uric Acid 1.8 L Calcium 8.9 Total Bilirubin 1.1 AST 29 ALT 32 Alkaline Phosphatase 72 Troponin I Total Protein 7.2 Albumin 4.0 Globulin 3.3 Albumin/Globulin Ratio 1.2 Triglycerides 26 D Cholesterol 125 LDL Cholesterol Direct 50 HDL Cholesterol 51 Thyroxine (T4) 7.94 TSH 3rd Generation 0.65 Urine Color Urine Clarity Urine pH Ur Specific [place] Urine Protein Urine Glucose (UA) Urine Ketones Urine Blood Urine Nitrate Urine Bilirubin Urine Urobilinogen Ur Leukocyte Esterase Urine RBC (Auto) Urine Microscopic WBC Ur Squamous Epith Cells Urine Bacteria Hyaline Casts - Impressions Impression: Patient Name / ID : LENORA PAGAN / [id number] Exam Date : 05/05/2017 22:11:41 ( Approved ) Study Comment : Sex / Age : F / 81Y Creator : Jose Francisco Miller MD Dictator : Bus Greaser : Matchbook Assembler : Jose Francisco Miller MD Approver2 : Report Date : 05/05/2017 23:02:00 My Comment : [facility] Division of Radiology [address] [place] [address] Tel. no. Patient Name: LATASHA FARAH Pt. Address: [address] [place] [address]. Rec #: [id number] [place] [address]: Jane Barrera PA-C Pt CELL Order Location: [facility] : 1935 Female Age: 81 Order #: [id number] Reason for exam: fall, pain Radiology HIP MIN 2V W/ PELVIS LT Exam Date: 05/05/17 This imaging exam was performed at [facility] EXAM: XR Left Hip With Pelvis When Performed, 2 or 3 Views CLINICAL HISTORY: 81 years old, female; Pain; Hip pain and pelvic pain; Left hip; Additional info: Fall, pain TECHNIQUE: Two or three views of the left hip, with pelvis when performed. COMPARISON: No relevant prior studies available. FINDINGS: Bones/joints: Comminuted intratrochanteric fracture left femur. Varus angulation. Equivocal nondisplaced fracture left inferior pubic ramus. No dislocation. Soft tissues: Probable injection granulomas within gluteal soft tissues. IMPRESSION: 1. Left proximal femur fracture. 2. Incidental/non-acute findings are described above. Dictated By: Jose Francisco Miller MD Dictated Date/Time: 05/05/172301 Signed By: Jose Francisco Miller MD Date Signed: 2301 Transcribed By: HORACIO Transcribe Date/Time : 05/05/172301 ACYP02/VRD atient Name / ID : LENORA PAGAN / [id number] Exam Date : 05/05/2017 23:48:51 ( Approved ) Study Comment : Sex / Age : F / 81Y Creator : Jose Francisco Miller MD Dictator : Bus Greaser : Matchbook Assembler : Jose Francisco Miller MD Approver2 : Report Date : 05/06/2017 00:49:00 My Comment : [facility] Division of Radiology [address] [place] [address] Tel. no. Patient Name: LATASHA FARAH Pt. Address: [address] [place] [address] Rec #: [id number] [place] [address]: Jane Barrera PA-C Pt CELL Order Location: [facility] : 1935 Female Age: 81 Order #: [id number] Reason for exam: left hip fracture (MICHELLE CT) CT Scan HIP WITHOUT CONTRAST LEFT Exam Date: 05/05/17 This imaging exam was performed at [facility] EXAM: CT Pelvis Without Intravenous Contrast CLINICAL HISTORY: 81 years old, female; Pain; Hip; Left; Additional info: Left hip fracture (michelle ct) TECHNIQUE: Axial computed tomography images of the pelvis without intravenous contrast. All CT scans at this facility use one or more dose reduction techniques, viz.: automated exposure control; ma/kV adjustment per patient size (including targeted exams where dose is matched to indication; i.e. head); or iterative reconstruction technique. Coronal and sagittal reformatted images were created and reviewed. COMPARISON: CT - PELVIS W/O CONTRAST 2016-09-11 14:41 FINDINGS: Bones/joints: Comminuted intertrochanteric fracture left femur. Chronic fracture deformity left inferior pubic ramus. Mild degenerative changes of lower lumbar spine. No dislocation. Chondrocalcinosis of pubic symphysis. Soft tissues: Injection granulomas within gluteal soft tissues. Mild soft tissue swelling/stranding about left hip. Vasculature: Atherosclerotic disease of visualized arteries. Stomach and bowel: Colonic diverticula. Bladder: De [place] Cruz catheter. Other findings: Varus angulation. IMPRESSION: 1. Left proximal femur fracture. 2. Incidental/non-acute findings are described above. EXAM: CT Right Lower Extremity Without Intravenous Contrast, Knee CLINICAL HISTORY: 81 years old, female; Pain; Hip; Left; Additional info: Left hip fracture (michelle ct) TECHNIQUE: Axial computed tomography images of the right knee without intravenous contrast. COMPARISON: No relevant prior studies available. FINDINGS: Bones/joints: No acute fracture. Mild osteoarthrosis of medial compartment. No dislocation. No significant joint effusion. Chondrocalcinosis of menisci. Soft tissues: Vascular calcifications. IMPRESSION: 1. No fracture. 2. Incidental/non-acute findings are described above. EXAM: CT Left Lower Extremity Without Intravenous Contrast, Knee CLINICAL HISTORY: 81 years old, female; Pain; Hip; Left; Additional info: Left hip fracture (michelle ct) TECHNIQUE: Axial computed tomography images of the left knee without intravenous contrast. COMPARISON: No relevant prior studies available. FINDINGS: Bones/joints: No acute fracture. Moderate osteoarthrosis of medial compartment. No dislocation. No significant joint effusion. Chondrocalcinosis of menisci. Soft tissues: Vascular calcifications. IMPRESSION: 1. No fracture. 2. Incidental/non-acute findings are described above. Dictated By: Jose Francisco Miller MD Dictated Date/Time: 05/06/1748 Signed By: Jose Francisco Miller MD Date Signed: 48 Transcribed By: HORACIO Transcribe Date/Time : 05/06/1748 ACYP02/МАРИЯ Assessment & Plan (1) Displaced intertrochanteric fracture of left femur Assessment and Plan: plan for OR Tuesday 05/09 pending medical optimization LM for son Steve farah VTE proph, hold lovenox after Tuesday dose sequentials f/u labs, T&C f/u urine culture, small leuk est noted d/w Dr. Barboza, agrees with above Status: Acute
--- NOTE | 2017-05-06 10:40 | CARD ---
APPROVED REPORT EKG Measurement Heart [id number] DC 160P63 [id number] <Conclusion> Sinus tachycardia Otherwise normal ECG
--- NOTE | 2017-05-06 11:05 | CARD ---
APPROVED REPORT EKG Measurement Heart [id number] HI 144P38 [id number] <Conclusion> Normal sinus rhythm Possible Left atrial enlargement Borderline ECG
--- NOTE | 2017-05-06 11:10 | CARD ---
APPROVED REPORT EXAM: Two-dimensional and M-mode echocardiogram with Doppler and color Doppler. Other Information Quality : Technically LimitedRhythm : Technically limited study due to patient was very tender; and uncooperative. INDICATION LV Function: 2D DIMENSIONS IVSd1.03 (0.7-1.1cm)LVDd3.77 (3.9-5.9cm) LVOT Diameter1.77 (1.8-2.4cm)PWd0.99 (0.7-1.1cm) IVSs1.24 (0.8-1.2cm)LVDs2.96 (2.5-4.0cm) FS (%) 21.5 %PWs1.50 (0.8-1.2cm) Mitral Valve E/A ratio0.0 TDI Lateral E' Peak V10.02cm/sMedial E' Peak V15.73cm/sE/Lateral E'0.0 E/Medial E'0.0 LEFT VENTRICLE The left ventricle is normal size. There is normal left ventricular wall thickness. The left ventricular function is normal. The left ventricular ejection fraction is within the normal range. The Ejection Fraction is 50-55%. There is normal LV segmental wall motion. The left ventricular diastolic function is normal. No left ventricle thrombus noted on this study. RIGHT VENTRICLE The right ventricle is normal size. There is normal right ventricular wall thickness. The right ventricular systolic function is normal. ATRIA The left atrium size is normal. The right atrium size is normal. The interatrial septum is intact with no evidence for an atrial septal defect. AORTIC VALVE The aortic valve is normal in structure. No aortic regurgitation is present. There is no aortic valvular stenosis. There is no aortic valvular vegetation. MITRAL VALVE The mitral valve is normal in structure. There is no evidence of mitral valve prolapse. There is no mitral valve stenosis. There is no mitral valve regurgitation noted. TRICUSPID VALVE The tricuspid valve is normal in structure. There is no tricuspid valve regurgitation noted. There is no tricuspid valve prolapse or vegetation. There is no tricuspid valve stenosis. PULMONIC VALVE The pulmonary valve is normal in structure. There is no pulmonic valvular regurgitation. There is no pulmonic valvular stenosis. GREAT VESSELS The aortic root is normal in size. The IVC is normal in size and collapses >50% with inspiration. PERICARDIAL EFFUSION The pericardium appears normal. <Conclusion> The left ventricle is normal size. The left ventricular function is normal. The left ventricular ejection fraction is within the normal range. The Ejection Fraction is 50-55%.
[2017-05-06] MEDS ORDERED: Potassium Chloride 20 mEq ER Tab PO ONE (14:15)
--- NOTE | 2017-05-06 16:07 | CP.PCM.HP ---
History of Present Illness - History of Present Illness History of Present Illness: CC : Pain L Hip 81 yrs old female [facility] resident , Patien was AD for L hip pain s/p Fall. Patient was trying to seat in her wheelchair with assistance from SINGING TEACHER and Patient slipped falling on her L side , there after She was complaining of pain L side and L Hip , I was call by nurse and referred Patient to [facility] , X ray Fx L Hip. Patient with Dementia unable obtain Hx from her. Present on Admission - Present on Admission Any Indicators Present on Admission: No Past Patient History - Infectious Disease Hx of Infectious Diseases: None - Past Medical History & Family History Past Medical History?: Yes - Past Social History Smoking Status: Never Smoked Drugs: Other (no ETOH) Home Situation {Lives}: [facility] - CARDIAC Hx Cardiac Disorders: Yes Hx Hypercholesterolemia: Yes Hx Hypertension: Yes - PULMONARY Hx Respiratory Disorders: Yes Hx Asthma: Yes Hx Chronic Obstructive Pulmonary Disease (COPD): Yes Other/Comment: PPD (+) - NEUROLOGICAL Hx Neurological Disorder: Yes Hx Dementia: Yes Hx Seizures: Yes - HEENT Hx HEENT Problems: No - RENAL Hx Chronic Kidney Disease: No - ENDOCRINE/METABOLIC Hx Endocrine Disorders: No - HEMATOLOGICAL/ONCOLOGICAL Hx Blood Disorders: No Hx Human Immunodeficiency Virus (HIV): No - INTEGUMENTARY Hx Dermatological Problems: No - MUSCULOSKELETAL/RHEUMATOLOGICAL Hx Musculoskeletal Disorders: Yes Hx Arthritis: Yes (poly) Hx Fractures: Yes (L wrist , comp Fx T Spine) Hx Osteoporosis: Yes Other/Comment: wheel chair bound - GASTROINTESTINAL Hx Gastrointestinal Disorders: Yes Hx Constipation: Yes - GENITOURINARY/GYNECOLOGICAL Hx Genitourinary Disorders: No Hx Incontinence: Yes - PSYCHIATRIC Hx Psychophysiologic Disorder: Yes Hx Anxiety: Yes Hx Depression: Yes - SURGICAL HISTORY Hx Surgeries: Yes Hx Tubal Ligation: Yes - ANESTHESIA Hx Anesthesia: Yes Hx Anesthesia Reactions: No Hx Malignant Hyperthermia: No Has any member of the family had a problem w/ anesthesia?: No Meds Allergies/Adverse Reactions: Allergies Allergy/AdvReac Type Severity Reaction Status Date / Time Penicillins Allergy RASH Verified 05/05/17 20:13 Physical Exam - Constitutional Appears: Chronically Ill - Head Exam Head Exam: NORMAL INSPECTION - Eye Exam Eye Exam: PERRL - ENT Exam ENT Exam: Normal Exam - Neck Exam Neck exam: Positive for: Normal Inspection - Respiratory Exam Respiratory Exam: Decreased Breath Sounds (at bases) - Cardiovascular Exam Cardiovascular Exam: REGULAR RHYTHM - GI/Abdominal Exam GI & Abdominal Exam: Normal Bowel Sounds, Soft - Extremities Exam Additional comments: LLE traction tenderness L hip , neuromuscular status distal good - Back Exam Back exam: tenderness - Neurological Exam Additional comments: confused , no focal motor/sensory deficit , generalized weakness - Psychiatric Exam Additional comments: confused - Skin Skin Exam: Warm Results - Vital Signs Recent Vital Signs: Last Vital Signs Temp 98.3 F 05/06/17 08:41 Pulse 114 H 05/06/17 08:41 Resp 20 05/06/17 08:41 BP 164/82 H 05/06/17 08:41 Pulse Ox 95 05/06/17 08:41 - Labs Result Diagrams: 05/09/17 05:35 05/09/17 05:35 Labs: Laboratory Results - last 24 hr 05/05/17 05/05/17 05/05/17 21:25 21:25 21:25 WBC 8.7 RBC 4.82 Hgb 13.6 Hct 42.2 MCV 87.5 MCH 28.2 MCHC 32.2 L RDW 14.7 H Plt Count 119 L MPV 9.4 Neut % (Auto) 71.2 Lymph % (Auto) 18.0 L [place] % (Auto) 8.6 Eos % (Auto) 1.5 Baso % (Auto) 0.7 Neut # 6.2 Lymph # 1.6 Gaines # 0.8 Eos # 0.1 Baso # 0.1 PT 13.2 H INR 1.2 APTT 32.1 Sodium 138 Potassium 4.1 Chloride 102 Carbon Dioxide 27 Anion Gap 13 BUN 20 H Creatinine 0.5 L Est GFR ( Amer) > 60 Est GFR (Non-Af Amer) > 60 POC Glucose (mg/dL) Random Glucose 128 H Uric Acid Calcium 9.4 Total Bilirubin 1.0 AST 29 ALT 35 Alkaline Phosphatase 85 Troponin I < 0.0120 Total Protein 7.7 Albumin 4.2 Globulin 3.4 Albumin/Globulin Ratio 1.2 Triglycerides Cholesterol LDL Cholesterol Direct HDL Cholesterol Thyroxine (T4) TSH 3rd Generation Urine Color Urine Clarity Urine pH Ur Specific [place] Urine Protein Urine Glucose (UA) Urine Ketones Urine Blood Urine Nitrate Urine Bilirubin Urine Urobilinogen Ur Leukocyte Esterase Urine RBC (Auto) Urine Microscopic WBC Ur Squamous Epith Cells Urine Bacteria Hyaline Casts 05/05/17 05/06/1718 22:29 00:00 05:00 WBC 7.0 RBC 4.36 Hgb 12.4 Hct 37.8 MCV 86.6 MCH 28.3 MCHC 32.7 L RDW 14.3 Plt Count 98 L D MPV Neut % (Auto) Lymph % (Auto) [place] % (Auto) Eos % (Auto) Baso % (Auto) Neut # Lymph # [place] # Eos # Baso # PT INR APTT Sodium Potassium Chloride Carbon Dioxide Anion Gap BUN Creatinine Est GFR ( Amer) Est GFR (Non-Af Amer) POC Glucose (mg/dL) 152 H Random Glucose Uric Acid Calcium Total Bilirubin AST ALT Alkaline Phosphatase Troponin I Total Protein Albumin Globulin Albumin/Globulin Ratio Triglycerides Cholesterol LDL Cholesterol Direct HDL Cholesterol Thyroxine (T4) TSH 3rd Generation Urine Color Yellow Urine Clarity Slighty-cloudy Urine pH 6.0 Ur Specific [place] 1.024 Urine Protein 30 Urine Glucose (UA) Neg Urine Ketones 20 Urine Blood Negative Urine Nitrate Negative Urine Bilirubin Negative Urine Urobilinogen 4.0 H Ur Leukocyte Esterase Small Urine RBC (Auto) 1 Urine Microscopic WBC 11 H Ur Squamous Epith Cells 3 Urine Bacteria Occ H Hyaline Casts 0-2 05/06/17 05/06/17 05:00 05:00 WBC RBC Hgb Hct MCV MCH MCHC RDW Plt Count MPV Neut % (Auto) Lymph % (Auto) [place] % (Auto) Eos % (Auto) Baso % (Auto) Neut # Lymph # [place]aines # Eos # Baso # PT 14.2 H INR 1.3 H APTT 32.0 Sodium 140 Potassium 3.5 L Chloride 101 Carbon Dioxide 29 Anion Gap 14 BUN 17 Creatinine 0.4 L Est GFR ( Amer) > 60 Est GFR (Non-Af Amer) > 60 POC Glucose (mg/dL) Random Glucose 169 H Uric Acid 1.8 L Calcium 8.9 Total Bilirubin 1.1 AST 29 ALT 32 Alkaline Phosphatase 72 Troponin I Total Protein 7.2 Albumin 4.0 Globulin 3.3 Albumin/Globulin Ratio 1.2 Triglycerides 26 D Cholesterol 125 LDL Cholesterol Direct 50 HDL Cholesterol 51 Thyroxine (T4) 7.94 TSH 3rd Generation 0.65 Urine Color Urine Clarity Urine pH Ur Specific [place] Urine Protein Urine Glucose (UA) Urine Ketones Urine Blood Urine Nitrate Urine Bilirubin Urine Urobilinogen Ur Leukocyte Esterase Urine RBC (Auto) Urine Microscopic WBC Ur Squamous Epith Cells Urine Bacteria Hyaline Casts Assessment & Plan (1) Displaced intertrochanteric fracture of left femur Status: Acute (2) Hip fracture, left Status: Acute (3) Back pain Status: Chronic Priority: High (4) Compression fracture Status: Chronic Comment: T Spine (5) Constipation Status: Acute (6) COPD (chronic obstructive pulmonary disease) Status: Acute (7) Seizure Status: Chronic (8) HTN (hypertension) Status: Acute (9) High cholesterol Status: Acute (10) Vitamin D deficiency Status: Deleted (11) Vitamin D deficiency Status: Acute - Assessment and Plan (Free Text) Plan: CT Pelvis comminuted intertrochanteric Fx L femur, swallowing eval, BP and pain control , Cardiac and Orthopedic consult
[2017-05-06] MEDS ORDERED: Nitroglycerin 0.1 mg/hr Top Patch TD SCH (17:00)
[2017-05-06] MEDS: Dextrose 5%/0.9% NS 1,000 ML IV SCH (17:26)
[2017-05-06] MEDS: Nitroglycerin 2% Ointment Foilpak UD TOP SCH (19:47)
[2017-05-07] MEDS: Dextrose 5%/0.9% NS 1,000 ML IV SCH ×2 (01:15→06:40)
[2017-05-07] MEDS: Nitroglycerin 2% Ointment Foilpak UD TOP SCH ×4 (01:30→18:19)
[2017-05-07] MEDS: Oxycodone/Acetaminophen 5/325 mg Tab PO PRN ×2 (07:28→12:44)
[2017-05-07 07:53] LABS: HEMOGLOBIN 12.7 g/dL (12.0-16.0); MEAN CELL VOLUME 87.3 fl (81.0-99.0); MEAN CORPUSCULAR HEMOGLOBIN 28.4 pg (27.0-31.0); MEAN CORPUSCULAR HGB CONC 32.6 g/dL (33.0-37.0); RBC 4.47 Mil/uL (3.80-5.20); RED CELL DISTRIBUTION WIDTH 14.3 % (11.5-14.5); WHITE BLOOD COUNT 7.2 K/uL (4.8-10.8)
[2017-05-07 07:59] LABS: ALB/GLOB RATIO 1.1 (1.0-2.1); ALBUMIN 3.8 g/dL (3.5-5.0); ALT/SGPT 33 U/L (9-52); AST/SGOT 28 U/L (14-36); BLOOD UREA NITROGEN 14 mg/dl (7-17); CALCIUM 9.2 mg/dL (8.4-10.2); GFR AFRICAN-AMERICAN > 60; GFR NON-AFRICAN AMERICAN > 60
[2017-05-07 08:00] LABS: INR 1.3 (0.9-1.2); PROTHROMBIN TIME 13.9 Seconds (9.8-13.1)
[2017-05-07] MEDS: Fluticasone-Salmeterol 500-50mcg Diskus IH SCH ×2 (09:05→21:51)
[2017-05-07] MEDS: Divalproex 125 mg Sprinkle Capsule PO SCH (09:06)
[2017-05-07] MEDS: Enoxaparin 40 mg Syringe SC SCH (09:07)
[2017-05-07] MEDS: Calcium-Vit D 500 mg-200 Units Tab UD PO SCH (09:08)
[2017-05-07] MEDS: Pantoprazole 40 mg EC Tab PO SCH (09:08)
[2017-05-07] MEDS: levoFLOXacin 500 MG TAB PO SCH (09:45)
--- NOTE | 2017-05-07 15:05 | CP.PCM.PN ---
Subjective - Date & Time of Evaluation Date of Evaluation: 05/07/17 Time of Evaluation: 12:30 - Subjective Subjective: confused, not complaining now of pain L hip Objective - Vital Signs/Intake and Output Vital Signs (last 24 hours): Temp Pulse Resp BP Pulse Ox 99.1 F 101 H 20 144/72 95 05/07/17 08:03 05/07/17 12:43 05/07/17 08:03 05/07/17 12:43 05/07/17 08:03 Intake and Output: 05/07/17 05/07/17 06:59 18:59 Intake Total 250 Output Total 400 Balance -150 - Medications Medications: Current Medications Acetaminophen (Tylenol 325mg Tab) 650 mg PO Q6 PRN PRN Reason: Pain, Mild (1-3) Aspirin (Aspirin Chewable) 81 mg PO DAILY [facility] Last Admin: 05/07/17 09:06 Dose: 81 mg Atorvastatin Calcium (Lipitor) 40 mg PO HS [facility] Last Admin: 05/06/17 22:21 Dose: 40 mg Bisacodyl (Dulcolax) 10 mg [place] Q48H PRN PRN Reason: Constipation Calcium/Vitamin D (Oyster Shell Calcium/Vitamin D 500 Mg-200 Iu) 1 tab PO DAILY [facility] Last Admin: 05/07/17 09:08 Dose: 1 tab Cyanocobalamin (Vitamin B12 1000 Mcg/Ml Inj) 1,000 mcg IM Q30D [facility] Divalproex Sodium (Depakote Sprinkles) 125 mg PO DAILY [facility] Last Admin: 05/07/17 09:06 Dose: 125 mg Duloxetine HCl (Cymbalta) 20 mg PO DAILY [facility] Last Admin: 05/07/17 09:06 Dose: 20 mg Enoxaparin Sodium (Lovenox) 40 mg SC DAILY [facility] PRN Reason: Protocol Last Admin: 05/07/17 09:07 Dose: 40 mg Ergocalciferol (Drisdol 50,000 Intl Units Cap) 1 cap PO QWK [facility] Gabapentin (Neurontin) 100 mg PO TID [facility] Last Admin: 05/07/17 12:43 Dose: 100 mg Dextrose/Sodium Chloride (Dextrose 5%/0.9% Ns 1000 Ml) 1,000 mls @ 70 mls/hr IV .[id number] [facility] Stop: 05/07/17 16:06 Last Admin: 05/07/17 06:40 Dose: Not Given Lamotrigine (Lamictal) 25 mg PO TID [facility] Last Admin: 05/07/17 12:43 Dose: 25 mg Levofloxacin (Levaquin) 500 mg PO DAILY [facility] PRN Reason: Protocol Last Admin: 05/07/17 09:45 Dose: 500 mg Magnesium Hydroxide (Milk Of Magnesia) 30 ml PO Q48H PRN PRN Reason: Constipation Meclizine HCl (Antivert) 12.5 mg PO TID [facility] Last Admin: 05/07/17 12:42 Dose: 12.5 mg Nitroglycerin (Nitro-Bid 2% Oint) 1 ea TOP Q6H [facility] Last Admin: 05/07/17 12:43 Dose: 1 ea Oxybutynin Chloride (Ditropan Tab) 5 mg PO TID [facility] Last Admin: 05/07/17 12:43 Dose: 5 mg Oxycodone/Acetaminophen (Percocet 5/325 Mg Tab) 1 tab PO Q4 PRN PRN Reason: Pain, severe (8-10) Stop: 05/09/17 02:32 Last Admin: 05/07/17 12:44 Dose: 1 tab Pantoprazole Sodium (Protonix Ec Tab) 40 mg PO DAILY [facility] Last Admin: 05/07/17 09:08 Dose: 40 mg Fluticasone/Salmeterol (Advair Diskus 500/50) 1 puff IH Q12 [facility] Last Admin: 05/07/17 09:05 Dose: 1 puff - Labs Labs: 05/07/17 05:30 05/07/17 05:30 PT 13.9 Seconds (9.8-13.1) H 05/07/17 05:30 INR 1.3 (0.9-1.2) H 05/07/17 05:30 APTT 26.0 Seconds (25.6-37.1) D 05/07/17 05:30 - Constitutional Appears: Chronically Ill - Head Exam Head Exam: NORMAL INSPECTION - Eye Exam Eye Exam: PERRL - ENT Exam ENT Exam: Normal Exam - Neck Exam Neck Exam: Normal Inspection - Respiratory Exam Respiratory Exam: Decreased Breath Sounds (at bases) - Cardiovascular Exam Cardiovascular Exam: REGULAR RHYTHM, Murmur - GI/Abdominal Exam GI & Abdominal Exam: Soft, Normal Bowel Sounds - Extremities Exam Extremities Exam: Tenderness (mild L hip , LLE Bates traction , neuromuscular status distal good) - Neurological Exam Neurological Exam: Awake Additional comments: confused , generalized weakness - Psychiatric Exam Psychiatric exam: Anxious Assessment and Plan (1) Displaced intertrochanteric fracture of left femur Status: Acute (2) Hip fracture, left Status: Acute (3) Back pain Status: Chronic (4) Compression fracture Status: Chronic (5) Constipation Status: Acute (6) COPD (chronic obstructive pulmonary disease) Status: Acute (7) Seizure Status: Chronic (8) HTN (hypertension) Status: Acute (9) High cholesterol Status: Acute (10) Vitamin D deficiency Status: Resolved - Assessment and Plan (Free Text) Plan: BP stable , unable to contact Patient's son for Pharmacological STT , f/u with [employer] Operator for OR clearance , continue pain medication
[2017-05-08] MEDS: Oxycodone/Acetaminophen 5/325 mg Tab PO PRN ×4 (00:25→18:35)
[2017-05-08] MEDS: Nitroglycerin 2% Ointment Foilpak UD TOP SCH ×5 (00:31→23:32)
[2017-05-08 08:18] LABS: HEMOGLOBIN 11.1 g/dL (12.0-16.0); MEAN CELL VOLUME 87.5 fl (81.0-99.0); MEAN CORPUSCULAR HEMOGLOBIN 28.7 pg (27.0-31.0); MEAN CORPUSCULAR HGB CONC 32.7 g/dL (33.0-37.0); RBC 3.88 Mil/uL (3.80-5.20); RED CELL DISTRIBUTION WIDTH 14.6 % (11.5-14.5); WHITE BLOOD COUNT 6.3 K/uL (4.8-10.8)
[2017-05-08 08:37] LABS: BLOOD UREA NITROGEN 15 mg/dl (7-17); CALCIUM 8.9 mg/dL (8.4-10.2); GFR AFRICAN-AMERICAN > 60; GFR NON-AFRICAN AMERICAN > 60
--- NOTE | 2017-05-08 09:19 | RAD ---
HISTORY: r/o infiltrate COMPARISON: No prior. FINDINGS: LUNGS: There is mild interval improvement in aeration from prior study. No new infiltrate is identified. Chronic interstitial changes are appreciated. PLEURA: No significant pleural effusion identified, no pneumothorax apparent. CARDIOVASCULAR: Heart is enlarged. Aorta is unchanged. OSSEOUS STRUCTURES: No new rib fracture seen. VISUALIZED UPPER ABDOMEN: Normal. OTHER FINDINGS: None. IMPRESSION: Mild interval improvement in aeration.
[2017-05-08] MEDS: Fluticasone-Salmeterol 500-50mcg Diskus IH SCH ×2 (10:28→21:14)
[2017-05-08] MEDS: levoFLOXacin 500 MG TAB PO SCH (10:29)
[2017-05-08] MEDS: Divalproex 125 mg Sprinkle Capsule PO SCH (10:29)
[2017-05-08] MEDS: Pantoprazole 40 mg EC Tab PO SCH (10:30)
[2017-05-08] MEDS: Calcium-Vit D 500 mg-200 Units Tab UD PO SCH (10:30)
--- NOTE | 2017-05-08 16:20 | CP.PCM.PN ---
Subjective - Date & Time of Evaluation Date of Evaluation: 05/08/17 Time of Evaluation: 12:00 - Subjective Subjective: confused , N/C Objective - Vital Signs/Intake and Output Vital Signs (last 24 hours): Temp Pulse Resp BP Pulse Ox 98.4 F 112 H 20 147/81 95 05/08/17 16:13 05/08/17 16:13 05/08/17 16:13 05/08/17 16:13 05/08/17 16:13 - Medications Medications: Current Medications Acetaminophen (Tylenol 325mg Tab) 650 mg PO Q6 PRN PRN Reason: Pain, Mild (1-3) Aspirin (Aspirin Chewable) 81 mg PO DAILY [facility] Last Admin: 05/08/17 10:28 Dose: 81 mg Atorvastatin Calcium (Lipitor) 40 mg PO HS [facility] Last Admin: 05/07/17 21:51 Dose: 40 mg Bisacodyl (Dulcolax) 10 mg [place] Q48H PRN PRN Reason: Constipation Calcium/Vitamin D (Oyster Shell Calcium/Vitamin D 500 Mg-200 Iu) 1 tab PO DAILY [facility] Last Admin: 05/08/17 10:30 Dose: 1 tab Cyanocobalamin (Vitamin B12 1000 Mcg/Ml Inj) 1,000 mcg IM Q30D [facility] Divalproex Sodium (Depakote Sprinkles) 125 mg PO DAILY [facility] Last Admin: 05/08/17 10:29 Dose: 125 mg Duloxetine HCl (Cymbalta) 20 mg PO DAILY [facility] Last Admin: 05/08/17 10:28 Dose: 20 mg Enoxaparin Sodium (Lovenox) 40 mg SC DAILY [facility] PRN Reason: Protocol Last Admin: 05/07/17 09:07 Dose: 40 mg Ergocalciferol (Drisdol 50,000 Intl Units Cap) 1 cap PO QWK [facility] Gabapentin (Neurontin) 100 mg PO TID [facility] Last Admin: 05/08/17 14:09 Dose: 100 mg Lamotrigine (Lamictal) 25 mg PO TID [facility] Last Admin: 05/08/17 14:08 Dose: 25 mg Levofloxacin (Levaquin) 500 mg PO DAILY [facility] PRN Reason: Protocol Last Admin: 05/08/17 10:29 Dose: 500 mg Magnesium Hydroxide (Milk Of Magnesia) 30 ml PO Q48H PRN PRN Reason: Constipation Meclizine HCl (Antivert) 12.5 mg PO TID [facility] Last Admin: 05/08/17 14:07 Dose: 12.5 mg Nitroglycerin (Nitro-Bid 2% Oint) 1 ea TOP Q6H [facility] Last Admin: 05/08/17 11:38 Dose: 1 ea Oxybutynin Chloride (Ditropan Tab) 5 mg PO TID [facility] Last Admin: 05/08/17 14:08 Dose: 5 mg Oxycodone/Acetaminophen (Percocet 5/325 Mg Tab) 1 tab PO Q4 PRN PRN Reason: Pain, severe (8-10) Stop: 05/09/17 02:32 Last Admin: 05/08/17 11:27 Dose: 1 tab Pantoprazole Sodium (Protonix Ec Tab) 40 mg PO DAILY [facility] Last Admin: 05/08/17 10:30 Dose: 40 mg Fluticasone/Salmeterol (Advair Diskus 500/50) 1 puff IH Q12 [facility] Last Admin: 05/08/17 10:28 Dose: 1 puff - Labs Labs: 05/08/17 07:20 05/08/17 07:20 PT 13.9 Seconds (9.8-13.1) H 05/07/17 05:30 INR 1.3 (0.9-1.2) H 05/07/17 05:30 APTT 26.0 Seconds (25.6-37.1) D 05/07/17 05:30 - Constitutional Appears: Chronically Ill - Head Exam Head Exam: NORMAL INSPECTION - Eye Exam Eye Exam: PERRL - ENT Exam ENT Exam: Normal Exam - Neck Exam Neck Exam: Normal Inspection - Respiratory Exam Respiratory Exam: Decreased Breath Sounds (at bases) - Cardiovascular Exam Cardiovascular Exam: REGULAR RHYTHM, Murmur (2/6 LSB) - GI/Abdominal Exam GI & Abdominal Exam: Soft, Normal Bowel Sounds - Extremities Exam Additional comments: LLE on Bates traction, neuromuscular status distal good , mild tenderness L hip - Neurological Exam Neurological Exam: Awake (confused, generalized weakness), CN II-XII Intact Additional comments: confused , gemneralized weakness - Psychiatric Exam Psychiatric exam: Anxious - Skin Skin Exam: Warm Assessment and Plan (1) Displaced intertrochanteric fracture of left femur Status: Acute (2) Hip fracture, left Status: Acute (3) Back pain Status: Chronic (4) Compression fracture Status: Chronic (5) Constipation Status: Acute (6) COPD (chronic obstructive pulmonary disease) Status: Acute (7) Seizure Status: Chronic (8) HTN (hypertension) Status: Acute (9) High cholesterol Status: Acute (10) Vitamin D deficiency Status: Resolved - Assessment and Plan (Free Text) Plan: Pharmacological STT in AM , Patient's son will give phone consent in am , urine out decreased, start IVF, f/u Cardiac clearance for OR ORIF.
[2017-05-08] MEDS ORDERED: Dextrose 5%/0.9% NS 1,000 ML IV SCH (18:15)
[2017-05-09] MEDS: Nitroglycerin 2% Ointment Foilpak UD TOP SCH ×4 (05:40→23:42)
[2017-05-09 06:22] LABS: HEMOGLOBIN 10.5 g/dL (12.0-16.0); MEAN CELL VOLUME 87.7 fl (81.0-99.0); MEAN CORPUSCULAR HEMOGLOBIN 28.6 pg (27.0-31.0); MEAN CORPUSCULAR HGB CONC 32.6 g/dL (33.0-37.0); RBC 3.67 Mil/uL (3.80-5.20); RED CELL DISTRIBUTION WIDTH 14.6 % (11.5-14.5); WHITE BLOOD COUNT 6.1 K/uL (4.8-10.8)
[2017-05-09 06:26] LABS: BLOOD UREA NITROGEN 13 mg/dl (7-17); CALCIUM 9.1 mg/dL (8.4-10.2); GFR AFRICAN-AMERICAN > 60; GFR NON-AFRICAN AMERICAN > 60
[2017-05-09 06:40] LABS: INR 1.2 (0.9-1.2); PARTIAL THROMBOPLASTIN TIME 27.1 Seconds (25.6-37.1); PROTHROMBIN TIME 13.7 Seconds (9.8-13.1)
[2017-05-09] MEDS ORDERED: Aminophylline 25 mg/ml Inj ONE (07:57)
[2017-05-09] MEDS: Fluticasone-Salmeterol 500-50mcg Diskus IH SCH ×2 (09:05→21:02)
[2017-05-09] MEDS: Divalproex 125 mg Sprinkle Capsule PO SCH (09:35)
[2017-05-09] MEDS: levoFLOXacin 500 MG TAB PO SCH (09:35)
[2017-05-09] MEDS: Pantoprazole 40 mg EC Tab PO SCH (09:36)
[2017-05-09] MEDS: Calcium-Vit D 500 mg-200 Units Tab UD PO SCH (09:36)
--- NOTE | 2017-05-09 10:04 | CP.PCM.PN ---
<Corin Monsalve - Last Filed: 05/09/17 10:02> Subjective - Date & Time of Evaluation Date of Evaluation: 05/09/17 Time of Evaluation: 10:02 - Subjective Subjective: PGY2 progress note for cardiology, Dr. Varghese Pt seen and examined at bedside. No acute events overnight. Pt has been NPO for stress test. Plan for stress test this am and then surgery with Dr. Morton. Obtained consent for surgery and transfusion from son over telephone. Pt complains of left hip pain. Deneis having any CP, SOB, abd pain. 12 point ROS negative except for above mentioned. Objective - Vital Signs/Intake and Output Vital Signs (last 24 hours): Temp Pulse Resp BP Pulse Ox 97.6 F 103 H 20 150/79 90 L 05/09/17 07:45 05/09/17 07:45 05/09/17 07:45 05/09/17 07:45 05/09/17 07:45 - Medications Medications: Current Medications Acetaminophen (Tylenol 325mg Tab) 650 mg PO Q6 PRN PRN Reason: Pain, Mild (1-3) Aspirin (Aspirin Chewable) 81 mg PO DAILY [facility] Last Admin: 05/08/17 10:28 Dose: 81 mg Atorvastatin Calcium (Lipitor) 40 mg PO HS [facility] Last Admin: 05/08/17 21:14 Dose: 40 mg Bisacodyl (Dulcolax) 10 mg [place] Q48H PRN PRN Reason: Constipation Calcium/Vitamin D (Oyster Shell Calcium/Vitamin D 500 Mg-200 Iu) 1 tab PO DAILY [facility] Last Admin: 05/08/17 10:30 Dose: 1 tab Cyanocobalamin (Vitamin B12 1000 Mcg/Ml Inj) 1,000 mcg IM Q30D [facility] Divalproex Sodium (Depakote Sprinkles) 125 mg PO DAILY [facility] Last Admin: 05/08/17 10:29 Dose: 125 mg Duloxetine HCl (Cymbalta) 20 mg PO DAILY [facility] Last Admin: 05/08/17 10:28 Dose: 20 mg Enoxaparin Sodium (Lovenox) 40 mg SC DAILY [facility] PRN Reason: Protocol Last Admin: 05/07/17 09:07 Dose: 40 mg Ergocalciferol (Drisdol 50,000 Intl Units Cap) 1 cap PO QWK [facility] Gabapentin (Neurontin) 100 mg PO TID [facility] Last Admin: 05/08/17 18:18 Dose: 100 mg Dextrose/Sodium Chloride (Dextrose 5%-0.45% Ns 500 Ml) 1,000 mls @ 70 mls/hr IV .[id number] [facility] Stop: 05/09/17 21:16 Lamotrigine (Lamictal) 25 mg PO TID [facility] Last Admin: 05/08/17 18:18 Dose: 25 mg Levofloxacin (Levaquin) 500 mg PO DAILY [facility] PRN Reason: Protocol Last Admin: 05/08/17 10:29 Dose: 500 mg Magnesium Hydroxide (Milk Of Magnesia) 30 ml PO Q48H PRN PRN Reason: Constipation Meclizine HCl (Antivert) 12.5 mg PO TID [facility] Last Admin: 05/08/17 18:17 Dose: 12.5 mg Nitroglycerin (Nitro-Bid 2% Oint) 1 ea TOP Q6H [facility] Last Admin: 05/09/17 05:40 Dose: 1 ea Oxybutynin Chloride (Ditropan Tab) 5 mg PO TID [facility] Last Admin: 05/08/17 18:18 Dose: 5 mg Pantoprazole Sodium (Protonix Ec Tab) 40 mg PO DAILY [facility] Last Admin: 05/08/17 10:30 Dose: 40 mg Fluticasone/Salmeterol (Advair Diskus 500/50) 1 puff IH Q12 [facility] Last Admin: 05/08/17 21:14 Dose: 1 puff - Labs Labs: 05/09/17 05:35 05/09/17 05:35 PT 13.7 Seconds (9.8-13.1) H 05/09/17 05:35 INR 1.2 (0.9-1.2) 05/09/17 05:35 APTT 27.1 Seconds (25.6-37.1) 05/09/17 05:35 - Constitutional Appears: Non-toxic - ENT Exam ENT Exam: Mucous Membranes Moist - Respiratory Exam Respiratory Exam: Clear to Ausculation Bilateral, NORMAL BREATHING PATTERN. absent: Accessory Muscle Use, Rales, Rhonchi, Wheezes - Cardiovascular Exam Cardiovascular Exam: REGULAR RHYTHM, +S1, +S2. absent: Diastolic murmur, Gallop , Rubs, Murmur - GI/Abdominal Exam GI & Abdominal Exam: Soft, Normal Bowel Sounds. absent: Distended, Firm, Guarding, Rigid, Tenderness, Rebound - Extremities Exam Extremities Exam: absent: Pedal Edema - Neurological Exam Neurological Exam: Alert, Awake, Oriented x3 - Psychiatric Exam Psychiatric exam: Normal Affect, Normal Mood - Skin Skin Exam: Dry, Intact, Normal Color, Warm Assessment and Plan - Assessment and Plan (Free Text) Assessment: 81 year old female with past medical history of HTN, HLD, arthritis, asthma, anxiety, depression, osteoporosis, seizure d/o and dementia is admitted to hospital for left proximal femur fracture and being seen for cardiac clearance. 1. Cardiac clearance for orthopedic surgery - Pt will have stress test this am. 2. Left femur fracture - Surgery today if stress test normal - Consent obtained from son over telephone - Transfusion consent also obtained. Both consents in chart 3. UTI - UA on admission was positive - Urine culture was ordered and patient received levaquin 4. HTN - Likely due to pain - Will continue to monitor VS 5. HLD - lipid panel checked is normal - Will continue home lipitor dose 6. Asthma - continue management per primary care team Case will be discussed with attending, Dr. Varghese <Juarez Varghese - Last Filed: 05/09/17 10:13> Objective - Vital Signs/Intake and Output Vital Signs (last 24 hours): Temp Pulse Resp BP Pulse Ox 97.6 F 103 H 20 150/79 90 L 05/09/17 07:45 05/09/17 07:45 05/09/17 07:45 05/09/17 07:45 05/09/17 07:45 - Medications Medications: Current Medications Acetaminophen (Tylenol 325mg Tab) 650 mg PO Q6 PRN PRN Reason: Pain, Mild (1-3) Aspirin (Aspirin Chewable) 81 mg PO DAILY [facility] Last Admin: 05/08/17 10:28 Dose: 81 mg Atorvastatin Calcium (Lipitor) 40 mg PO HS [facility] Last Admin: 05/08/17 21:14 Dose: 40 mg Bisacodyl (Dulcolax) 10 mg [place] Q48H PRN PRN Reason: Constipation Calcium/Vitamin D (Oyster Shell Calcium/Vitamin D 500 Mg-200 Iu) 1 tab PO DAILY [facility] Last Admin: 05/08/17 10:30 Dose: 1 tab Cyanocobalamin (Vitamin B12 1000 Mcg/Ml Inj) 1,000 mcg IM Q30D [facility] Divalproex Sodium (Depakote Sprinkles) 125 mg PO DAILY [facility] Last Admin: 05/08/17 10:29 Dose: 125 mg Duloxetine HCl (Cymbalta) 20 mg PO DAILY [facility] Last Admin: 05/08/17 10:28 Dose: 20 mg Enoxaparin Sodium (Lovenox) 40 mg SC DAILY [facility] PRN Reason: Protocol Last Admin: 05/07/17 09:07 Dose: 40 mg Ergocalciferol (Drisdol 50,000 Intl Units Cap) 1 cap PO QWK [facility] Gabapentin (Neurontin) 100 mg PO TID [facility] Last Admin: 05/08/17 18:18 Dose: 100 mg Dextrose/Sodium Chloride (Dextrose 5%-0.45% Ns 500 Ml) 1,000 mls @ 70 mls/hr IV .[id number] [facility] Stop: 05/09/17 21:16 Lamotrigine (Lamictal) 25 mg PO TID [facility] Last Admin: 05/08/17 18:18 Dose: 25 mg Levofloxacin (Levaquin) 500 mg PO DAILY [facility] PRN Reason: Protocol Last Admin: 05/08/17 10:29 Dose: 500 mg Magnesium Hydroxide (Milk Of Magnesia) 30 ml PO Q48H PRN PRN Reason: Constipation Meclizine HCl (Antivert) 12.5 mg PO TID [facility] Last Admin: 05/08/17 18:17 Dose: 12.5 mg Nitroglycerin (Nitro-Bid 2% Oint) 1 ea TOP Q6H [facility] Last Admin: 05/09/17 05:40 Dose: 1 ea Oxybutynin Chloride (Ditropan Tab) 5 mg PO TID [facility] Last Admin: 05/08/17 18:18 Dose: 5 mg Pantoprazole Sodium (Protonix Ec Tab) 40 mg PO DAILY [facility] Last Admin: 05/08/17 10:30 Dose: 40 mg Fluticasone/Salmeterol (Advair Diskus 500/50) 1 puff IH Q12 [facility] Last Admin: 05/08/17 21:14 Dose: 1 puff - Labs Labs: 05/09/17 05:35 05/09/17 05:35 PT 13.7 Seconds (9.8-13.1) H 05/09/17 05:35 INR 1.2 (0.9-1.2) 05/09/17 05:35 APTT 27.1 Seconds (25.6-37.1) 05/09/17 05:35 Attending/Attestation - Attestation I have personally seen and examined this patient.: Yes I have fully participated in the care of the patient.: Yes I have reviewed all pertinent clinical information, including history, physical exam and plan: Yes Notes (Text): 05/09/17 10:13 if stress part normal can proceed with surgery pain control
--- NOTE | 2017-05-09 11:57 | CP.PCM.PN ---
Subjective - Date & Time of Evaluation Date of Evaluation: 05/09/17 Time of Evaluation: 07:50 - Subjective Subjective: S-Pt with severe discomfort, pain nand rtricted ROM L hip situation is discussed at length with pt thru culturally competent handle rounder operator- Dee Objective - Vital Signs/Intake and Output Vital Signs (last 24 hours): Temp Pulse Resp BP Pulse Ox 97.6 F 103 H 20 150/79 90 L 05/09/17 07:45 05/09/17 07:45 05/09/17 07:45 05/09/17 07:45 05/09/17 07:45 - Medications Medications: Current Medications Acetaminophen (Tylenol 325mg Tab) 650 mg PO Q6 PRN PRN Reason: Pain, Mild (1-3) Aspirin (Aspirin Chewable) 81 mg PO DAILY [facility] Last Admin: 05/09/17 09:35 Dose: Not Given Atorvastatin Calcium (Lipitor) 40 mg PO HS [facility] Last Admin: 05/08/17 21:14 Dose: 40 mg Bisacodyl (Dulcolax) 10 mg [place] Q48H PRN PRN Reason: Constipation Calcium/Vitamin D (Oyster Shell Calcium/Vitamin D 500 Mg-200 Iu) 1 tab PO DAILY [facility] Last Admin: 05/09/17 09:36 Dose: Not Given Cyanocobalamin (Vitamin B12 1000 Mcg/Ml Inj) 1,000 mcg IM Q30D [facility] Divalproex Sodium (Depakote Sprinkles) 125 mg PO DAILY [facility] Last Admin: 05/09/17 09:35 Dose: Not Given Duloxetine HCl (Cymbalta) 20 mg PO DAILY [facility] Last Admin: 05/09/17 09:35 Dose: Not Given Enoxaparin Sodium (Lovenox) 40 mg SC DAILY [facility] PRN Reason: Protocol Last Admin: 05/07/17 09:07 Dose: 40 mg Ergocalciferol (Drisdol 50,000 Intl Units Cap) 1 cap PO QWK [facility] Gabapentin (Neurontin) 100 mg PO TID [facility] Last Admin: 05/09/17 09:36 Dose: Not Given Dextrose/Sodium Chloride (Dextrose 5%-0.45% Ns 500 Ml) 1,000 mls @ 70 mls/hr IV .[id number] [facility] Stop: 05/09/17 21:16 Lamotrigine (Lamictal) 25 mg PO TID [facility] Last Admin: 05/09/17 09:35 Dose: Not Given Levofloxacin (Levaquin) 500 mg PO DAILY [facility] PRN Reason: Protocol Last Admin: 05/09/17 09:35 Dose: Not Given Magnesium Hydroxide (Milk Of Magnesia) 30 ml PO Q48H PRN PRN Reason: Constipation Meclizine HCl (Antivert) 12.5 mg PO TID [facility] Last Admin: 05/09/17 10:32 Dose: Not Given Nitroglycerin (Nitro-Bid 2% Oint) 1 ea TOP Q6H [facility] Last Admin: 05/09/17 05:40 Dose: 1 ea Oxybutynin Chloride (Ditropan Tab) 5 mg PO TID [facility] Last Admin: 05/09/17 09:35 Dose: Not Given Pantoprazole Sodium (Protonix Ec Tab) 40 mg PO DAILY [facility] Last Admin: 05/09/17 09:36 Dose: Not Given Fluticasone/Salmeterol (Advair Diskus 500/50) 1 puff IH Q12 [facility] Last Admin: 05/09/17 09:05 Dose: 1 puff - Labs Labs: 05/09/17 05:35 05/09/17 05:35 PT 13.7 Seconds (9.8-13.1) H 05/09/17 05:35 INR 1.2 (0.9-1.2) 05/09/17 05:35 APTT 27.1 Seconds (25.6-37.1) 05/09/17 05:35 - Additional Findings Additional findings: Objective systemic exam- wnl Musculoskeltal exam stance/gait- defrred L lower ext immobilized in [place] tx Xray- reveal severely comminuted pathologic intertrochanteric fx L hip Assessment and Plan - Assessment and Plan (Free Text) Assessment: A- pathologic basicervical /intertrochanteric fx L femur P- pt still has not undegrone cardiac thallium stress test-pt has been in hospital tuece Tuesday situation is discussed at length with pts son Steve Laureano, who works for a [employer] Pros. cons, risks and benfits of surgical approach discussed at length with pt and his son High risk nature of the procedure is discussed/ possibility of later conversdion to hip replaceemnt, or conversion at the time of surgery is discussed No promises/guarantees possibility of nerve injury, mechanical failure, infection theromboem,bolic dsease, even is discussed NO PROISES GUARANTEES if stress test is completed in reasonable fashion, pt will go to surgery today ; if not, surgery is cancelled Due to the high risk nature of the surgery,it is important we wiat for results of the cardiac stress test
--- NOTE | 2017-05-09 14:52 | CP.PCM.PN ---
Subjective - Date & Time of Evaluation Date of Evaluation: 05/09/17 Time of Evaluation: 12:00 - Subjective Subjective: F/U Fx L Femur/L Hip confused, mild pain L hip Objective - Vital Signs/Intake and Output Vital Signs (last 24 hours): Temp Pulse Resp BP Pulse Ox 97.6 F 103 H 20 150/79 90 L 05/09/17 07:45 05/09/17 07:45 05/09/17 07:45 05/09/17 07:45 05/09/17 07:45 - Medications Medications: Current Medications Acetaminophen (Tylenol 325mg Tab) 650 mg PO Q6 PRN PRN Reason: Pain, Mild (1-3) Aspirin (Aspirin Chewable) 81 mg PO DAILY [facility] Last Admin: 05/09/17 09:35 Dose: Not Given Atorvastatin Calcium (Lipitor) 40 mg PO HS [facility] Last Admin: 05/08/17 21:14 Dose: 40 mg Bisacodyl (Dulcolax) 10 mg [place] Q48H PRN PRN Reason: Constipation Calcium/Vitamin D (Oyster Shell Calcium/Vitamin D 500 Mg-200 Iu) 1 tab PO DAILY [facility] Last Admin: 05/09/17 09:36 Dose: Not Given Cyanocobalamin (Vitamin B12 1000 Mcg/Ml Inj) 1,000 mcg IM Q30D [facility] Divalproex Sodium (Depakote Sprinkles) 125 mg PO DAILY [facility] Last Admin: 05/09/17 09:35 Dose: Not Given Duloxetine HCl (Cymbalta) 20 mg PO DAILY [facility] Last Admin: 05/09/17 09:35 Dose: Not Given Enoxaparin Sodium (Lovenox) 40 mg SC DAILY [facility] PRN Reason: Protocol Last Admin: 05/07/17 09:07 Dose: 40 mg Ergocalciferol (Drisdol 50,000 Intl Units Cap) 1 cap PO QWK [facility] Gabapentin (Neurontin) 100 mg PO TID [facility] Last Admin: 05/09/17 09:36 Dose: Not Given Dextrose/Sodium Chloride (Dextrose 5%-0.45% Ns 500 Ml) 1,000 mls @ 70 mls/hr IV .[id number] [facility] Stop: 05/09/17 21:16 Lamotrigine (Lamictal) 25 mg PO TID [facility] Last Admin: 01/08/18 09:35 Dose: Not Given Levofloxacin (Levaquin) 500 mg PO DAILY [facility] PRN Reason: Protocol Last Admin: 05/09/17 09:35 Dose: Not Given Magnesium Hydroxide (Milk Of Magnesia) 30 ml PO Q48H PRN PRN Reason: Constipation Meclizine HCl (Antivert) 12.5 mg PO TID [facility] Last Admin: 05/09/17 10:32 Dose: Not Given Nitroglycerin (Nitro-Bid 2% Oint) 1 ea TOP Q6H [facility] Last Admin: 05/09/17 05:40 Dose: 1 ea Oxybutynin Chloride (Ditropan Tab) 5 mg PO TID [facility] Last Admin: 05/09/17 09:35 Dose: Not Given Pantoprazole Sodium (Protonix Ec Tab) 40 mg PO DAILY [facility] Last Admin: 05/09/17 09:36 Dose: Not Given Fluticasone/Salmeterol (Advair Diskus 500/50) 1 puff IH Q12 [facility] Last Admin: 05/09/17 09:05 Dose: 1 puff - Labs Labs: 05/09/17 05:35 05/09/17 05:35 PT 13.7 Seconds (9.8-13.1) H 05/09/17 05:35 INR 1.2 (0.9-1.2) 05/09/17 05:35 APTT 27.1 Seconds (25.6-37.1) 05/09/17 05:35 - Constitutional Appears: Chronically Ill - Head Exam Head Exam: NORMAL INSPECTION - Eye Exam Eye Exam: PERRL - ENT Exam ENT Exam: Normal Exam - Neck Exam Neck Exam: Normal Inspection - Respiratory Exam Respiratory Exam: Decreased Breath Sounds (at bases) - Cardiovascular Exam Cardiovascular Exam: REGULAR RHYTHM, Murmur (2/6 LSB) - GI/Abdominal Exam GI & Abdominal Exam: Soft, Normal Bowel Sounds - Extremities Exam Additional comments: LLE on Bates traction, neuromuscular status distal good, mild tenderness L hip - Neurological Exam Neurological Exam: Awake (Confused, generalized weakness), CN II-XII Intact - Psychiatric Exam Psychiatric exam: Anxious - Skin Skin Exam: Warm Assessment and Plan (1) Displaced intertrochanteric fracture of left femur Status: Acute (2) Hip fracture, left Status: Acute (3) Back pain Status: Chronic (4) Compression fracture Status: Chronic (5) Constipation Status: Acute (6) COPD (chronic obstructive pulmonary disease) Status: Acute (7) Seizure Status: Chronic (8) HTN (hypertension) Status: Acute (9) High cholesterol Status: Acute (10) Vitamin D deficiency Status: Acute (11) Thrombocytopenia Status: Chronic - Assessment and Plan (Free Text) Plan: f/u STT Cardiac Clearance , f/u Hematology consult for Thrombocytopenia
--- NOTE | 2017-05-09 15:49 | CP.PCM.PCO ---
Physician Communication Note - Physician Communication Note Physician Communication Note: stress images reviewed - as per ACC/AHA proceed with sx with mod risk
[2017-05-10] MEDS: HYDROmorphone 0.5 mg/0.5 ml ISec IVP PRN ×2 (01:45→22:03)
[2017-05-10] MEDS: Nitroglycerin 2% Ointment Foilpak UD TOP SCH ×4 (05:11→22:15)
[2017-05-10 06:33] LABS: BASO % 0.5 % (0.0-2.0); EOS # 0.2 K/uL (0.0-0.7); EOS % 3.6 % (0.0-4.0); HEMOGLOBIN 11.1 g/dL (12.0-16.0); LYMPH # 0.9 K/uL (1.0-4.3); LYMPH % 15.5 % (20.0-40.0); MEAN CELL VOLUME 86.2 fl (81.0-99.0); MEAN CORPUSCULAR HEMOGLOBIN 28.3 pg (27.0-31.0); MEAN CORPUSCULAR HGB CONC 32.9 g/dL (33.0-37.0); MEAN PLATELET VOLUME 9.6 fl (7.2-11.7); MONO # 0.9 K/uL (0.0-0.8); MONO % 15.6 % (0.0-10.0); NEUT # 3.8 K/uL (1.8-7.0); NEUT % 64.8 % (50.0-75.0); NRBC % 0.1 % (0.0-0.0); RBC 3.9 Mil/uL (3.80-5.20); RED CELL DISTRIBUTION WIDTH 14.3 % (11.5-14.5); WHITE BLOOD COUNT 5.9 K/uL (4.8-10.8)
[2017-05-10] MEDS: Divalproex 125 mg Sprinkle Capsule PO SCH (08:37)
[2017-05-10] MEDS: Calcium-Vit D 500 mg-200 Units Tab UD PO SCH (08:38)
[2017-05-10] MEDS: Pantoprazole 40 mg EC Tab PO SCH (08:38)
[2017-05-10] MEDS: levoFLOXacin 500 MG TAB PO SCH (08:38)
--- NOTE | 2017-05-10 09:27 | CP.PCM.PN ---
Subjective - Date & Time of Evaluation Date of Evaluation: 05/10/17 Time of Evaluation: 09:22 - Subjective Subjective: s/p stress test in pain from fx Objective - Vital Signs/Intake and Output Vital Signs (last 24 hours): Temp Pulse Resp BP Pulse Ox 98.6 F 96 H 20 136/64 96 05/10/17 07:51 05/10/17 07:51 05/10/17 07:51 05/10/17 07:51 05/10/17 07:51 - Medications Medications: Current Medications Acetaminophen (Tylenol 325mg Tab) 650 mg PO Q6 PRN PRN Reason: Pain, Mild (1-3) Aspirin (Aspirin Chewable) 81 mg PO DAILY [facility] Last Admin: 05/09/17 09:35 Dose: Not Given Atorvastatin Calcium (Lipitor) 40 mg PO HS [facility] Last Admin: 05/09/17 21:02 Dose: 40 mg Bisacodyl (Dulcolax) 10 mg [place] Q48H PRN PRN Reason: Constipation Calcium/Vitamin D (Oyster Shell Calcium/Vitamin D 500 Mg-200 Iu) 1 tab PO DAILY [facility] Last Admin: 05/10/17 08:38 Dose: 1 tab Cyanocobalamin (Vitamin B12 1000 Mcg/Ml Inj) 1,000 mcg IM Q30D [facility] Divalproex Sodium (Depakote Sprinkles) 125 mg PO DAILY [facility] Last Admin: 05/10/17 08:37 Dose: 125 mg Duloxetine HCl (Cymbalta) 20 mg PO DAILY [facility] Last Admin: 05/10/17 08:37 Dose: 20 mg Enoxaparin Sodium (Lovenox) 40 mg SC DAILY [facility] PRN Reason: Protocol Last Admin: 05/07/17 09:07 Dose: 40 mg Ergocalciferol (Drisdol 50,000 Intl Units Cap) 1 cap PO QWK [facility] Gabapentin (Neurontin) 100 mg PO TID [facility] Last Admin: 05/10/17 08:37 Dose: 100 mg Hydromorphone HCl (Dilaudid) 0.5 mg IVP Q4 PRN PRN Reason: Pain, severe (8-10) Last Admin: 05/10/17 01:45 Dose: 0.5 mg Lamotrigine (Lamictal) 25 mg PO TID [facility] Last Admin: 05/10/17 08:37 Dose: 25 mg Levofloxacin (Levaquin) 500 mg PO DAILY [facility] PRN Reason: Protocol Last Admin: 05/10/17 08:38 Dose: 500 mg Magnesium Hydroxide (Milk Of Magnesia) 30 ml PO Q48H PRN PRN Reason: Constipation Meclizine HCl (Antivert) 12.5 mg PO TID [facility] Last Admin: 05/10/17 08:38 Dose: 12.5 mg Nitroglycerin (Nitro-Bid 2% Oint) 1 ea TOP Q6H [facility] Last Admin: 05/10/17 05:11 Dose: 1 ea Oxybutynin Chloride (Ditropan Tab) 5 mg PO TID [facility] Last Admin: 05/10/17 08:38 Dose: 5 mg Pantoprazole Sodium (Protonix Ec Tab) 40 mg PO DAILY [facility] Last Admin: 05/10/17 08:38 Dose: 40 mg Fluticasone/Salmeterol (Advair Diskus 500/50) 1 puff IH Q12 [facility] Last Admin: 05/09/17 21:02 Dose: 1 puff - Labs Labs: 05/10/17 05:25 05/09/17 05:35 PT 13.7 Seconds (9.8-13.1) H 05/09/17 05:35 INR 1.2 (0.9-1.2) 05/09/17 05:35 APTT 27.1 Seconds (25.6-37.1) 05/09/17 05:35 - Constitutional Appears: Well, In Acute Distress, Agitated - Head Exam Head Exam: ATRAUMATIC, NORMAL INSPECTION, NORMOCEPHALIC - Eye Exam Eye Exam: EOMI, Normal appearance, PERRL Pupil Exam: NORMAL ACCOMODATION, PERRL - ENT Exam ENT Exam: Mucous Membranes Moist, Normal Exam - Neck Exam Neck Exam: Full ROM, Normal Inspection. absent: Lymphadenopathy - Respiratory Exam Respiratory Exam: Clear to Ausculation Bilateral, NORMAL BREATHING PATTERN - Cardiovascular Exam Cardiovascular Exam: REGULAR RHYTHM, +S1, +S2, Murmur - GI/Abdominal Exam GI & Abdominal Exam: Soft, Normal Bowel Sounds. absent: Tenderness - Extremities Exam Extremities Exam: Full ROM, Normal Capillary Refill, Normal Inspection. absent : Joint Swelling, Pedal Edema - Back Exam Back Exam: NORMAL INSPECTION - Neurological Exam Neurological Exam: Alert, Awake, CN II-XII Intact - Psychiatric Exam Psychiatric exam: Normal Affect, Normal Mood - Skin Skin Exam: Dry, Intact, Normal Color, Warm Assessment and Plan (1) Preop cardiovascular exam Status: Acute (2) HTN (hypertension) Status: Acute (3) COPD (chronic obstructive pulmonary disease) Status: Acute (4) Displaced intertrochanteric fracture of left femur Status: Acute (5) Dyslipidemia Status: Chronic
[2017-05-10] MEDS: Fluticasone-Salmeterol 500-50mcg Diskus IH SCH ×2 (09:43→22:00)
--- NOTE | 2017-05-10 11:28 | PQF GENQUE ---
Dr. Lara, Please clarify the cause of the fracture: i.e. Traumatic Traumatic compression fracture Traumatic fracture Nontraumatic Chronic fracture Nontraumatic compression fracture Secondary to Osteoporosis Secondary to malignancy Insufficiency Spontaneous Stress fracture Pathological fracture (specify cause) Other (please specify) Clinically unable to determine Unknown H and P: H and P; Hx.. Osteoporosis: L hip pain s/p Fall; was trying to seat in her wheelchair with assistance from [employer] and Patient slipped falling on her L side , Assessment : (1) Displaced intertrochanteric fracture of left femur Status: Acute (2) Hip fracture, left Status: Acute 05/09 Orthopedic note: L lower ext immobilized in [place] tx Xray- reveal severely comminuted pathologic intertrochanteric fx L hip Assessment : A- pathologic basicervical /intertrochanteric fx L femur 05/06 Hip X-Ray: Findings: Bones/joints: Comminuted intratrochanteric fracture left femur. Varus angulation. Equivocal nondisplaced fracture left inferior pubic ramus. No dislocation. 05/06: CT hip: Findings: Bones/joints: Comminuted intertrochanteric fracture left femur. Chronic fracture deformity left inferior pubic ramus. This form is a permanent part of the medical record Clarification of your documentation is requested to better reflect the severity of illness and intensity of treatment of your patient. Indicators present [] Specify: [] [] Specify: [] [] Specify: [] [] Specify: [] Location in the medical record that reflects the above clinical findings: [] Treatment Provided: [] PHYSICIAN'S RESPONSE Based on your medical judgment of the clinical indicators outlined above please clarify the following: [] Practitioner response [] If unable to determine, please check the box, sign and date. Present On Admission (POA) Indicator: [] Present at the time of admission [] Not present at the time of admission [] Clinically Undetermined In responding to this query, please exercise your independent professional judgment. The fact that a question is asked does not imply that any particular answer is desired or expected. Thank you for your clarification on this documentation. If you have any questions please call. * Thank you, Maxine Licea RN EXT. #[id number] MTDD
--- NOTE | 2017-05-10 11:31 | CP.PCM.CON ---
History of Present Illness - History of Present Illness History of Present Illness: 81 year old demented female, admitted from the residential s/p fall from her wheel chair, found to have a left hip fracture, anemia and thrombocytopenia. I am unable to obtain a history from the patient due to dementia. Review of her medical records shows a hgb shantanu of 9.5 and plt shantanu of 91. There is no evidence of overt bleeding. Past medical, surgical, family, social history cannot be obtained from the patient. Allergies: Per documentation Penicillins Review of systems cannot be obtained. Past Patient History - Infectious Disease Hx of Infectious Diseases: None - Past Medical History & Family History Past Medical History?: Yes - Past Social History Smoking Status: Never Smoked Drugs: Other (no ETOH) Home Situation {Lives}: [facility] - CARDIAC Hx Cardiac Disorders: Yes Hx Hypercholesterolemia: Yes Hx Hypertension: Yes - PULMONARY Hx Respiratory Disorders: Yes Hx Asthma: Yes Hx Chronic Obstructive Pulmonary Disease (COPD): Yes Other/Comment: PPD (+) - NEUROLOGICAL Hx Neurological Disorder: Yes Hx Dementia: Yes Hx Seizures: Yes - HEENT Hx HEENT Problems: No - RENAL Hx Chronic Kidney Disease: No - ENDOCRINE/METABOLIC Hx Endocrine Disorders: No - HEMATOLOGICAL/ONCOLOGICAL Hx Blood Disorders: No Hx Human Immunodeficiency Virus (HIV): No - INTEGUMENTARY Hx Dermatological Problems: No - MUSCULOSKELETAL/RHEUMATOLOGICAL Hx Musculoskeletal Disorders: Yes Hx Arthritis: Yes (poly) Hx Fractures: Yes (L wrist , comp Fx T Spine) Hx Osteoporosis: Yes Other/Comment: wheel chair bound - GASTROINTESTINAL Hx Gastrointestinal Disorders: Yes Hx Constipation: Yes - GENITOURINARY/GYNECOLOGICAL Hx Genitourinary Disorders: No Hx Incontinence: Yes - PSYCHIATRIC Hx Psychophysiologic Disorder: Yes Hx Anxiety: Yes Hx Depression: Yes - SURGICAL HISTORY Hx Surgeries: Yes Hx Tubal Ligation: Yes - ANESTHESIA Hx Anesthesia: Yes Hx Anesthesia Reactions: No Hx Malignant Hyperthermia: No Has any member of the family had a problem w/ anesthesia?: No Meds Allergies/Adverse Reactions: Allergies Allergy/AdvReac Type Severity Reaction Status Date / Time Penicillins Allergy RASH Verified 05/05/17 20:13 - Medications Medications: Current Medications Acetaminophen (Tylenol 325mg Tab) 650 mg PO Q6 PRN PRN Reason: Pain, Mild (1-3) Aspirin (Aspirin Chewable) 81 mg PO DAILY [facility] Last Admin: 05/10/17 09:29 Dose: Not Given Atorvastatin Calcium (Lipitor) 40 mg PO HS [facility] Last Admin: 05/09/17 21:02 Dose: 40 mg Bisacodyl (Dulcolax) 10 mg [place] Q48H PRN PRN Reason: Constipation Calcium/Vitamin D (Oyster Shell Calcium/Vitamin D 500 Mg-200 Iu) 1 tab PO DAILY [facility] Last Admin: 05/10/17 08:38 Dose: 1 tab Cyanocobalamin (Vitamin B12 1000 Mcg/Ml Inj) 1,000 mcg IM Q30D [facility] Divalproex Sodium (Depakote Sprinkles) 125 mg PO DAILY [facility] Last Admin: 05/10/17 08:37 Dose: 125 mg Duloxetine HCl (Cymbalta) 20 mg PO DAILY [facility] Last Admin: 05/10/17 08:37 Dose: 20 mg Enoxaparin Sodium (Lovenox) 40 mg SC DAILY [facility] PRN Reason: Protocol Last Admin: 05/07/17 09:07 Dose: 40 mg Ergocalciferol (Drisdol 50,000 Intl Units Cap) 1 cap PO QWK [facility] Gabapentin (Neurontin) 100 mg PO TID [facility] Last Admin: 05/10/17 08:37 Dose: 100 mg Hydromorphone HCl (Dilaudid) 0.5 mg IVP Q4 PRN PRN Reason: Pain, severe (8-10) Last Admin: 05/10/17 01:45 Dose: 0.5 mg Lamotrigine (Lamictal) 25 mg PO TID [facility] Last Admin: 05/10/17 08:37 Dose: 25 mg Levofloxacin (Levaquin) 500 mg PO DAILY [facility] PRN Reason: Protocol Last Admin: 05/10/17 08:38 Dose: 500 mg Magnesium Hydroxide (Milk Of Magnesia) 30 ml PO Q48H PRN PRN Reason: Constipation Meclizine HCl (Antivert) 12.5 mg PO TID [facility] Last Admin: 05/10/17 08:38 Dose: 12.5 mg Nitroglycerin (Nitro-Bid 2% Oint) 1 ea TOP Q6H [facility] Last Admin: 05/10/17 05:11 Dose: 1 ea Oxybutynin Chloride (Ditropan Tab) 5 mg PO TID [facility] Last Admin: 05/10/17 08:38 Dose: 5 mg Pantoprazole Sodium (Protonix Ec Tab) 40 mg PO DAILY [facility] Last Admin: 05/10/17 08:38 Dose: 40 mg Fluticasone/Salmeterol (Advair Diskus 500/50) 1 puff IH Q12 [facility] Last Admin: 05/10/17 09:43 Dose: 1 puff Physical Exam - Head Exam Head Exam: ATRAUMATIC - Eye Exam Eye Exam: Normal appearance - ENT Exam ENT Exam: Mucous Membranes Dry - Respiratory Exam Respiratory Exam: Decreased Breath Sounds - Cardiovascular Exam Cardiovascular Exam: +S1, +S2 - GI/Abdominal Exam GI & Abdominal Exam: Normal Bowel Sounds - Neurological Exam Neurological exam: Altered - Skin Skin Exam: Warm Results - Vital Signs Recent Vital Signs: Last Vital Signs Temp 98.6 F 05/10/17 07:51 Pulse 96 H 05/10/17 07:51 Resp 20 05/10/17 07:51 BP 136/64 05/10/17 07:51 Pulse Ox 96 05/10/17 07:51 - Labs Result Diagrams: 05/10/17 05:25 05/09/17 05:35 Labs: Laboratory Results - last 24 hr 05/09/17 05/10/17 05:35 05:25 WBC 5.9 RBC 3.90 Hgb 11.1 L Hct 33.6 L MCV 86.2 MCH 28.3 MCHC 32.9 L RDW 14.3 Plt Count 100 L Manual Plt Count 120 L MPV 9.6 Neut % (Auto) 64.8 Lymph % (Auto) 15.5 L [place] % (Auto) 15.6 H Eos % (Auto) 3.6 Baso % (Auto) 0.5 Neut # 3.8 Lymph # 0.9 L [place] # 0.9 H Eos # 0.2 Baso # 0.0 Blood Type O POSITIVE Antibody Screen Negative Crossmatch See Detail BBK History Checked No verified bt Assessment & Plan (1) Thrombocytopenia Assessment and Plan: manual plt count above 100,000 aspirin held for 2 days, will need platelet transfusion prior to OR as will have dysfunctional platelets will plan to transfuse night prior to OR Thank you for this interesting consult. Status: Acute
--- NOTE | 2017-05-10 16:36 | CP.PCM.PN ---
Subjective - Date & Time of Evaluation Date of Evaluation: 05/10/17 Time of Evaluation: 09:00 - Subjective Subjective: confused, mild pain L hip Objective - Vital Signs/Intake and Output Vital Signs (last 24 hours): Temp Pulse Resp BP Pulse Ox 98.6 F 96 H 20 136/64 96 05/10/17 07:51 05/10/17 07:51 05/10/17 07:51 05/10/17 11:53 05/10/17 07:51 - Medications Medications: Current Medications Acetaminophen (Tylenol 325mg Tab) 650 mg PO Q6 PRN PRN Reason: Pain, Mild (1-3) Aspirin (Aspirin Chewable) 81 mg PO DAILY [facility] Last Admin: 05/10/17 09:29 Dose: Not Given Atorvastatin Calcium (Lipitor) 40 mg PO HS [facility] Last Admin: 05/09/17 21:02 Dose: 40 mg Bisacodyl (Dulcolax) 10 mg [place] Q48H PRN PRN Reason: Constipation Calcium/Vitamin D (Oyster Shell Calcium/Vitamin D 500 Mg-200 Iu) 1 tab PO DAILY [facility] Last Admin: 05/10/17 08:38 Dose: 1 tab Cyanocobalamin (Vitamin B12 1000 Mcg/Ml Inj) 1,000 mcg IM Q30D [facility] Divalproex Sodium (Depakote Sprinkles) 125 mg PO DAILY [facility] Last Admin: 05/10/17 08:37 Dose: 125 mg Duloxetine HCl (Cymbalta) 20 mg PO DAILY [facility] Last Admin: 05/10/17 08:37 Dose: 20 mg Enoxaparin Sodium (Lovenox) 40 mg SC DAILY [facility] PRN Reason: Protocol Last Admin: 05/07/17 09:07 Dose: 40 mg Ergocalciferol (Drisdol 50,000 Intl Units Cap) 1 cap PO QWK [facility] Gabapentin (Neurontin) 100 mg PO TID [facility] Last Admin: 05/10/17 13:00 Dose: Not Given Hydromorphone HCl (Dilaudid) 0.5 mg IVP Q4 PRN PRN Reason: Pain, severe (8-10) Last Admin: 05/10/17 01:45 Dose: 0.5 mg Lamotrigine (Lamictal) 25 mg PO TID [facility] Last Admin: 05/10/17 13:00 Dose: Not Given Levofloxacin (Levaquin) 500 mg PO DAILY [facility] PRN Reason: Protocol Last Admin: 05/10/17 08:38 Dose: 500 mg Magnesium Hydroxide (Milk Of Magnesia) 30 ml PO Q48H PRN PRN Reason: Constipation Meclizine HCl (Antivert) 12.5 mg PO TID [facility] Last Admin: 05/10/17 13:00 Dose: Not Given Nitroglycerin (Nitro-Bid 2% Oint) 1 ea TOP Q6H [facility] Last Admin: 05/10/17 11:53 Dose: 1 ea Oxybutynin Chloride (Ditropan Tab) 5 mg PO TID [facility] Last Admin: 05/10/17 13:00 Dose: Not Given Pantoprazole Sodium (Protonix Ec Tab) 40 mg PO DAILY [facility] Last Admin: 05/10/17 08:38 Dose: 40 mg Fluticasone/Salmeterol (Advair Diskus 500/50) 1 puff IH Q12 [facility] Last Admin: 05/10/17 09:43 Dose: 1 puff Tramadol HCl (Ultram) 50 mg PO Q6 PRN PRN Reason: Pain, moderate (4-7) - Labs Labs: 05/10/17 05:25 05/09/17 05:35 PT 13.7 Seconds (9.8-13.1) H 05/09/17 05:35 INR 1.2 (0.9-1.2) 05/09/17 05:35 APTT 27.1 Seconds (25.6-37.1) 05/09/17 05:35 - Constitutional Appears: Chronically Ill - Head Exam Head Exam: NORMAL INSPECTION - Eye Exam Eye Exam: PERRL - ENT Exam ENT Exam: Normal Exam - Neck Exam Neck Exam: Normal Inspection - Respiratory Exam Respiratory Exam: Decreased Breath Sounds (at bases) - Cardiovascular Exam Cardiovascular Exam: REGULAR RHYTHM, Murmur - GI/Abdominal Exam GI & Abdominal Exam: Soft, Normal Bowel Sounds - Extremities Exam Additional comments: Bates traction LLE , mild tenderness L hip , neuromuscular status distal good - Back Exam Back Exam: tenderness (mild) - Neurological Exam Neurological Exam: Awake Additional comments: confused , generalized weakness , no focal motor deficit - Psychiatric Exam Psychiatric exam: Anxious - Skin Skin Exam: Warm Assessment and Plan (1) Displaced intertrochanteric fracture of left femur Status: Acute (2) Hip fracture, left Status: Acute (3) Back pain Status: Chronic (4) Compression fracture Status: Chronic (5) Constipation Status: Acute (6) COPD (chronic obstructive pulmonary disease) Status: Acute (7) Seizure Status: Chronic (8) HTN (hypertension) Status: Acute (9) High cholesterol Status: Acute (10) Vitamin D deficiency Status: Resolved (11) Thrombocytopenia Status: Chronic - Assessment and Plan (Free Text) Plan: f/u Cardiology for OR clearance , manual Platelet 120, f/u Hematology consult OR clearance
[2017-05-11] MEDS: Dextrose 5%/0.45% NS 1,000 ML IV SCH ×3 (01:29→21:01)
[2017-05-11] MEDS: HYDROmorphone 0.5 mg/0.5 ml ISec IVP PRN ×2 (05:19→09:30)
[2017-05-11] MEDS: Nitroglycerin 2% Ointment Foilpak UD TOP SCH ×2 (05:23→22:25)
[2017-05-11 06:17] LABS: BASO % 0.4 % (0.0-2.0); EOS # 0.3 K/uL (0.0-0.7); EOS % 4.7 % (0.0-4.0); HEMOGLOBIN 12.9 g/dL (12.0-16.0); LYMPH # 1.2 K/uL (1.0-4.3); LYMPH % 17.6 % (20.0-40.0); MEAN CELL VOLUME 86.6 fl (81.0-99.0); MEAN CORPUSCULAR HEMOGLOBIN 28.2 pg (27.0-31.0); MEAN CORPUSCULAR HGB CONC 32.6 g/dL (33.0-37.0); MEAN PLATELET VOLUME 9.5 fl (7.2-11.7); MONO # 1.1 K/uL (0.0-0.8); NEUT # 4.3 K/uL (1.8-7.0); NEUT % 61.3 % (50.0-75.0); NRBC % 0.2 % (0.0-0.0); RBC 4.57 Mil/uL (3.80-5.20); RED CELL DISTRIBUTION WIDTH 14.1 % (11.5-14.5)
[2017-05-11 06:45] LABS: INR 1.2 (0.9-1.2); PARTIAL THROMBOPLASTIN TIME 29.4 Seconds (25.6-37.1); PROTHROMBIN TIME 13.6 Seconds (9.8-13.1)
[2017-05-11] MEDS: Divalproex 125 mg Sprinkle Capsule PO SCH (09:08)
[2017-05-11] MEDS: Calcium-Vit D 500 mg-200 Units Tab UD PO SCH (09:09)
[2017-05-11] MEDS: Pantoprazole 40 mg EC Tab PO SCH (09:09)
[2017-05-11] MEDS: levoFLOXacin 500 MG TAB PO SCH (09:09)
[2017-05-11] MEDS: Fluticasone-Salmeterol 500-50mcg Diskus IH SCH ×2 (09:28→21:56)
--- NOTE | 2017-05-11 09:30 | CP.PCM.PN ---
<Corin Monsalve - Last Filed: 05/11/17 12:32> Subjective - Date & Time of Evaluation Date of Evaluation: 05/11/17 Time of Evaluation: 10:01 - Subjective Subjective: PGY2 progress note for cardiology, Dr. Varghese Pt seen and examined at bedside. No acute events overnight. Pt is sleeping comfortably. Pt is s/p transfusion of 1 PRBC and is currently receiving 1 unit of platelets. Pt is scheduled for OR today for ORIF. Currently is responsive to verbal stimuli. Complains of LE pain. Denie shaving any CP. 12 point ROS unobtainable due to mental status. Objective - Vital Signs/Intake and Output Vital Signs (last 24 hours): Temp Pulse Resp BP Pulse Ox 98.5 F 88 20 143/80 90 L 05/11/17 08:25 05/11/17 08:25 05/11/17 08:25 05/11/17 08:25 05/11/17 08:25 Intake and Output: 05/11/17 05/11/17 06:59 18:59 Intake Total 840 Output Total 575 Balance 265 - Medications Medications: Current Medications Acetaminophen (Tylenol 325mg Tab) 650 mg PO Q6 PRN PRN Reason: Pain, Mild (1-3) Aspirin (Aspirin Chewable) 81 mg PO DAILY [facility] Last Admin: 05/10/17 09:29 Dose: Not Given Atorvastatin Calcium (Lipitor) 40 mg PO HS [facility] Last Admin: 05/10/17 22:12 Dose: Not Given Bisacodyl (Dulcolax) 10 mg NM Q48H PRN PRN Reason: Constipation Calcium/Vitamin D (Oyster Shell Calcium/Vitamin D 500 Mg-200 Iu) 1 tab PO DAILY [facility] Last Admin: 05/11/17 09:09 Dose: Not Given Cyanocobalamin (Vitamin B12 1000 Mcg/Ml Inj) 1,000 mcg IM Q30D [facility] Divalproex Sodium (Depakote Sprinkles) 125 mg PO DAILY [facility] Last Admin: 05/11/17 09:08 Dose: Not Given Duloxetine HCl (Cymbalta) 20 mg PO DAILY [facility] Last Admin: 05/11/17 09:08 Dose: Not Given Enoxaparin Sodium (Lovenox) 40 mg SC DAILY [facility] PRN Reason: Protocol Last Admin: 05/07/17 09:07 Dose: 40 mg Ergocalciferol (Drisdol 50,000 Intl Units Cap) 1 cap PO QWK [facility] Gabapentin (Neurontin) 100 mg PO TID [facility] Last Admin: 05/11/17 09:09 Dose: Not Given Hydromorphone HCl (Dilaudid) 0.5 mg IVP Q4 PRN PRN Reason: Pain, severe (8-10) Last Admin: 05/11/17 05:19 Dose: 0.5 mg Dextrose/Sodium Chloride (Dextrose 5%/0.45% Ns 1000 Ml) 1,000 mls @ 70 mls/hr IV .[id number] [facility] Stop: 05/11/17 22:58 Last Admin: 05/11/17 05:22 Dose: 70 mls/hr Lamotrigine (Lamictal) 25 mg PO TID [facility] Last Admin: 05/11/17 09:09 Dose: Not Given Levofloxacin (Levaquin) 500 mg PO DAILY [facility] PRN Reason: Protocol Last Admin: 05/11/17 09:09 Dose: Not Given Magnesium Hydroxide (Milk Of Magnesia) 30 ml PO Q48H PRN PRN Reason: Constipation Meclizine HCl (Antivert) 12.5 mg PO TID [facility] Last Admin: 05/11/17 09:08 Dose: Not Given Nitroglycerin (Nitro-Bid 2% Oint) 1 ea TOP Q6H [facility] Last Admin: 05/11/17 05:23 Dose: 1 ea Oxybutynin Chloride (Ditropan Tab) 5 mg PO TID [facility] Last Admin: 05/11/17 09:08 Dose: Not Given Pantoprazole Sodium (Protonix Ec Tab) 40 mg PO DAILY [facility] Last Admin: 05/11/17 09:09 Dose: Not Given Fluticasone/Salmeterol (Advair Diskus 500/50) 1 puff IH Q12 [facility] Last Admin: 05/10/17 22:00 Dose: 1 puff Tramadol HCl (Ultram) 50 mg PO Q6 PRN PRN Reason: Pain, moderate (4-7) - Labs Labs: 05/11/17 05:45 05/09/17 05:35 PT 13.6 Seconds (9.8-13.1) H 05/11/17 05:45 INR 1.2 (0.9-1.2) 05/11/17 05:45 APTT 29.4 Seconds (25.6-37.1) 05/11/17 05:45 - Constitutional Appears: Non-toxic, No Acute Distress - Head Exam Head Exam: ATRAUMATIC - ENT Exam ENT Exam: Mucous Membranes Moist - Respiratory Exam Respiratory Exam: Clear to Ausculation Bilateral. absent: Accessory Muscle Use , Rhonchi, Wheezes, Respiratory Distress - Cardiovascular Exam Cardiovascular Exam: REGULAR RHYTHM, +S1, +S2 - GI/Abdominal Exam GI & Abdominal Exam: Soft, Normal Bowel Sounds. absent: Distended, Firm, Guarding, Rigid, Tenderness, Organomegaly - Extremities Exam Extremities Exam: Tenderness. absent: Pedal Edema - Neurological Exam Neurological Exam: Awake. absent: Oriented x3 - Skin Skin Exam: Dry, Intact, Normal Color, Warm Assessment and Plan - Assessment and Plan (Free Text) Assessment: 81 year old female with past medical history of HTN, HLD, arthritis, asthma, anxiety, depression, osteoporosis, seizure d/o and dementia is admitted to hospital for left proximal femur fracture and being seen for cardiac clearance. 1. Cardiac clearance for orthopedic surgery - Pt is moderate risk for adverse cardiac event for non-cardiac procedure 2. Left femur fracture - Surgery scheduled for today at 1 pm after platelet transfusion - Consent obtained from son over telephone 3. HTN - Likely due to pain - Will continue to monitor VS 4. HLD - lipid panel checked is normal - Will continue home lipitor dose 5. Asthma - continue management per primary care team 6. Thrombocytopenia - Heme/onc consulted - Currently receiving 1 unit of platelets prior to OR - Aspirin on hold Case will be discussed with attending, Dr. Varghese <Juarez Varghese - Last Filed: 05/12/17 10:33> Objective - Vital Signs/Intake and Output Vital Signs (last 24 hours): Temp Pulse Resp BP Pulse Ox 99.8 F H 115 H 9 L 130/66 100 05/12/17 08:00 05/12/17 08:00 05/12/17 08:00 05/12/17 08:00 05/12/17 08:00 Intake and Output: 05/12/17 05/12/17 06:59 18:59 Intake Total 840 100 Balance 840 100 - Medications Medications: Current Medications Acetaminophen (Tylenol 325mg Tab) 650 mg PO Q6 PRN PRN Reason: Pain, Mild (1-3) Aspirin (Aspirin Chewable) 81 mg PO DAILY [facility] Last Admin: 05/10/17 09:29 Dose: Not Given Atorvastatin Calcium (Lipitor) 40 mg PO HS [facility] Last Admin: 05/11/17 21:57 Dose: Not Given Bisacodyl (Dulcolax) 10 mg NM Q48H PRN PRN Reason: Constipation Calcium/Vitamin D (Oyster Shell Calcium/Vitamin D 500 Mg-200 Iu) 1 tab PO DAILY [facility] Last Admin: 05/12/17 08:35 Dose: 1 tab Cyanocobalamin (Vitamin B12 1000 Mcg/Ml Inj) 1,000 mcg IM Q30D [facility] Divalproex Sodium (Depakote Sprinkles) 125 mg PO DAILY [facility] Last Admin: 05/12/17 08:35 Dose: 125 mg Duloxetine HCl (Cymbalta) 20 mg PO DAILY [facility] Last Admin: 05/12/17 08:34 Dose: 20 mg Enoxaparin Sodium (Lovenox) 40 mg SC DAILY [facility] PRN Reason: Protocol Last Admin: 05/07/17 09:07 Dose: 40 mg Enoxaparin Sodium (Lovenox) 40 mg SC Q24H [facility] PRN Reason: Protocol Ergocalciferol (Drisdol 50,000 Intl Units Cap) 1 cap PO QWK [facility] Gabapentin (Neurontin) 100 mg PO TID [facility] Last Admin: 05/12/17 08:35 Dose: 100 mg Hydromorphone HCl (Dilaudid) 0.5 mg IVP Q4 PRN PRN Reason: Pain, severe (8-10) Last Admin: 05/12/17 09:02 Dose: 0.5 mg Clindamycin Phosphate (Cleocin In Normal Saline) 600 mg in 50 mls @ 100 mls/hr IVPB Q8H [facility] PRN Reason: Protocol Last Admin: 05/12/17 05:29 Dose: 100 mls/hr Potassium Chloride/Sodium Chloride (Potassium Chl 20 Meq In Ns) 1,000 mls @ 50 mls/hr IV .Q20H [facility] Stop: 05/13/17 07:13 Potassium Chloride/Dextrose/Sod Cl (Potassium Chl 20 Meq In D5-1/2ns) 1,000 mls @ 100 mls/hr IV .Q10H [facility] Stop: 05/13/17 07:15 Potassium Chloride 10 meq/ (Sodium Chloride) 105 mls @ 105 mls/hr IV Q1 [facility] Stop: 05/12/17 10:59 Last Admin: 05/12/17 10:28 Dose: 105 mls/hr Lamotrigine (Lamictal) 25 mg PO TID [facility] Last Admin: 05/12/17 08:35 Dose: 25 mg Levofloxacin (Levaquin) 500 mg PO DAILY [facility] PRN Reason: Protocol Last Admin: 05/12/17 08:35 Dose: 500 mg Magnesium Hydroxide (Milk Of Magnesia) 30 ml PO Q48H PRN PRN Reason: Constipation Meclizine HCl (Antivert) 12.5 mg PO TID [facility] Last Admin: 05/12/17 08:35 Dose: 12.5 mg Nitroglycerin (Nitro-Bid 2% Oint) 1 ea TOP Q6H [facility] Last Admin: 05/12/17 05:27 Dose: 1 ea Oxybutynin Chloride (Ditropan Tab) 5 mg PO TID [facility] Last Admin: 05/12/17 08:35 Dose: 5 mg Pantoprazole Sodium (Protonix Ec Tab) 40 mg PO DAILY [facility] Last Admin: 05/12/17 08:35 Dose: 40 mg Fluticasone/Salmeterol (Advair Diskus 500/50) 1 puff IH Q12 [facility] Last Admin: 05/12/17 08:34 Dose: 1 puff Tramadol HCl (Ultram) 50 mg PO Q6 PRN PRN Reason: Pain, moderate (4-7) Last Admin: 05/12/17 08:34 Dose: 50 mg - Labs Labs: 05/12/17 04:20 05/12/17 04:20 PT 13.6 Seconds (9.8-13.1) H 05/11/17 05:45 INR 1.2 (0.9-1.2) 05/11/17 05:45 APTT 29.4 Seconds (25.6-37.1) 05/11/17 05:45 Assessment and Plan (1) Preop cardiovascular exam Status: Acute (2) HTN (hypertension) Status: Acute (3) COPD (chronic obstructive pulmonary disease) Status: Acute (4) Displaced intertrochanteric fracture of left femur Status: Acute (5) Dyslipidemia Status: Chronic Attending/Attestation - Attestation I have personally seen and examined this patient.: Yes I have fully participated in the care of the patient.: Yes I have reviewed all pertinent clinical information, including history, physical exam and plan: Yes
--- NOTE | 2017-05-11 13:05 | CP.PCM.PN ---
Subjective - Date & Time of Evaluation Date of Evaluation: 05/11/17 Time of Evaluation: 12:00 - Subjective Subjective: F/U Fx L Femur, L Hip. Objective - Vital Signs/Intake and Output Vital Signs (last 24 hours): Temp Pulse Resp BP Pulse Ox 98 F 92 H 20 134/75 98 05/11/17 11:15 05/11/17 11:15 05/11/17 11:15 05/11/17 11:15 05/11/17 11:15 Intake and Output: 05/11/17 05/11/17 06:59 18:59 Intake Total 840 Output Total 575 Balance 265 - Medications Medications: Current Medications Acetaminophen (Tylenol 325mg Tab) 650 mg PO Q6 PRN PRN Reason: Pain, Mild (1-3) Aspirin (Aspirin Chewable) 81 mg PO DAILY [facility] Last Admin: 05/10/17 09:29 Dose: Not Given Atorvastatin Calcium (Lipitor) 40 mg PO HS [facility] Last Admin: 05/10/17 22:12 Dose: Not Given Bisacodyl (Dulcolax) 10 mg CO Q48H PRN PRN Reason: Constipation Calcium/Vitamin D (Oyster Shell Calcium/Vitamin D 500 Mg-200 Iu) 1 tab PO DAILY [facility] Last Admin: 05/11/17 09:09 Dose: Not Given Cyanocobalamin (Vitamin B12 1000 Mcg/Ml Inj) 1,000 mcg IM Q30D [facility] Divalproex Sodium (Depakote Sprinkles) 125 mg PO DAILY [facility] Last Admin: 05/11/17 09:08 Dose: Not Given Duloxetine HCl (Cymbalta) 20 mg PO DAILY [facility] Last Admin: 05/11/17 09:08 Dose: Not Given Enoxaparin Sodium (Lovenox) 40 mg SC DAILY [facility] PRN Reason: Protocol Last Admin: 05/07/17 09:07 Dose: 40 mg Ergocalciferol (Drisdol 50,000 Intl Units Cap) 1 cap PO QWK [facility] Gabapentin (Neurontin) 100 mg PO TID [facility] Last Admin: 05/11/17 09:09 Dose: Not Given Hydromorphone HCl (Dilaudid) 0.5 mg IVP Q4 PRN PRN Reason: Pain, severe (8-10) Last Admin: 05/11/17 09:30 Dose: 0.5 mg Dextrose/Sodium Chloride (Dextrose 5%/0.45% Ns 1000 Ml) 1,000 mls @ 70 mls/hr IV .[id number] [facility] Stop: 05/11/17 22:58 Last Admin: 05/11/17 05:22 Dose: 70 mls/hr Lamotrigine (Lamictal) 25 mg PO TID [facility] Last Admin: 05/11/17 09:09 Dose: Not Given Levofloxacin (Levaquin) 500 mg PO DAILY [facility] PRN Reason: Protocol Last Admin: 05/11/17 09:09 Dose: Not Given Magnesium Hydroxide (Milk Of Magnesia) 30 ml PO Q48H PRN PRN Reason: Constipation Meclizine HCl (Antivert) 12.5 mg PO TID [facility] Last Admin: 05/11/17 09:08 Dose: Not Given Nitroglycerin (Nitro-Bid 2% Oint) 1 ea TOP Q6H [facility] Last Admin: 05/11/17 05:23 Dose: 1 ea Oxybutynin Chloride (Ditropan Tab) 5 mg PO TID [facility] Last Admin: 05/11/17 09:08 Dose: Not Given Pantoprazole Sodium (Protonix Ec Tab) 40 mg PO DAILY [facility] Last Admin: 05/11/17 09:09 Dose: Not Given Fluticasone/Salmeterol (Advair Diskus 500/50) 1 puff IH Q12 [facility] Last Admin: 05/11/17 09:28 Dose: Not Given Tramadol HCl (Ultram) 50 mg PO Q6 PRN PRN Reason: Pain, moderate (4-7) - Labs Labs: 05/11/17 05:45 05/09/17 05:35 PT 13.6 Seconds (9.8-13.1) H 05/11/17 05:45 INR 1.2 (0.9-1.2) 05/11/17 05:45 APTT 29.4 Seconds (25.6-37.1) 05/11/17 05:45 - Constitutional Appears: Chronically Ill - Head Exam Head Exam: NORMAL INSPECTION - Eye Exam Eye Exam: PERRL - ENT Exam ENT Exam: Normal Exam - Neck Exam Neck Exam: Normal Inspection - Respiratory Exam Respiratory Exam: Decreased Breath Sounds (at bases) - Cardiovascular Exam Cardiovascular Exam: REGULAR RHYTHM, Murmur - GI/Abdominal Exam GI & Abdominal Exam: Soft, Normal Bowel Sounds - Extremities Exam Additional comments: Bates traction LLE, mild tenderness L hip, neuromuscular status distal good. - Back Exam Back Exam: tenderness (mild) - Neurological Exam Neurological Exam: Awake Additional comments: Confused, generalized weakness, no focal motor deficit - Psychiatric Exam Psychiatric exam: Anxious - Skin Skin Exam: Warm Assessment and Plan (1) Displaced intertrochanteric fracture of left femur Status: Acute (2) Hip fracture, left Status: Acute (3) Back pain Status: Chronic (4) Compression fracture Status: Chronic (5) Constipation Status: Acute (6) COPD (chronic obstructive pulmonary disease) Status: Acute (7) Seizure Status: Chronic (8) HTN (hypertension) Status: Acute (9) High cholesterol Status: Acute (10) Vitamin D deficiency Status: Acute (11) Thrombocytopenia Status: Chronic
[2017-05-11] MEDS ORDERED: Lactated Ringer's 1,000 ML IV ONE (13:55)
[2017-05-11] MEDS ORDERED: Sodium Chloride 0.9% 1,000 ML IV ONE (14:00)
[2017-05-11] MEDS ORDERED: Rocuronium 10 mg/ml (5 ml) ONE (14:06)
[2017-05-11] MEDS ORDERED: Lidocaine 4% (Laryng-O-Jet) Kit MM ONE (14:06)
[2017-05-11] MEDS ORDERED: Etomidate 20 mg/10ml Inj IV ONE (14:06)
[2017-05-11] MEDS ORDERED: Morphine 1 mg/ml preservative-free Inj(Duramorph) ONE (14:06)
[2017-05-11] MEDS ORDERED: Succinylcholine 200 mg/10 ml Inj IV ONE (14:06)
[2017-05-11] MEDS ORDERED: Bacitracin OINT 15GM TOP ONE (17:17)
--- NOTE | 2017-05-11 17:53 | PCM.SURG1 ---
Surgeon's Initial Post Op Note - Surgeon's Notes Surgeon: Jabari Elevator Repairer Helper: JOHANNA Henderson Type of Anesthesia: General Endo, Spinal Anesthesia Administered By: Dr Eder Marcos Pre-Operative Diagnosis: Dispalced/comminuted intertrochanteric L femur fx Operative Findings: as above Post-Operative Diagnosis: as above Operation Performed: ORIF displaced/comminuted intertrochanteric L Hip fx. posiitoning of fluoro/interpreation of video images Specimen/Specimens Removed: none Estimated Blood Loss: EBL {In ML}: 100 Blood Products Given: N/A Post-Op Condition: Good Date of Surgery/Procedure: 05/11/17 Time of Surgery/Procedure: 15:35 (time in room 33882)
--- NOTE | 2017-05-11 18:19 | CP.CCUPN ---
CCU Subjective - Physician Review Subjective (Free Text): Post-op Ortho Surgery transfer to ICU for respiratory monitorinF admitted 6 days ago after a Fall, underwent L femoral nailing for L femoral fracture. PMH includes HTN, Asthma, COPD, Hyperlipidemia, Arthritis, Osteoporosis, Dementia, Depression. Has had recent thrombocytopenia on admission with lowest count of 91K and underwent pre-op platelet transfusion today. She did receive a unit of PRBCs yesterday as well. Underwent repair of L fmoral; fracture orally intubated, given a dose of paralytics and had Spinal anesthesia with Morphine. EBL was approx. 100ml, and recd totoal of 1L IVFs. No difficulties encountered with BP, no other transfusions required intraop or post op so far. Reported by Anesthesiologist, SPO2 87% on RA. Afebrile, denies any chest discomfort or SOB at rest. Other vitals and I/O's reviewed. Allergies: Penicillin ROS: No other pertinent negs or positives on 10+ system review. PMSFH: All other Nursing and physician documentation reviewed to date; no new pertinent info noted relevant to current medical problems. CXR from 05/07 study reviewed: (my interp)- bibasilar atelectatic interstitial changes. EKG: admission study- Sinus 98/min, no acute changes. IMPRESSION / MAJOR PROBLEMS NOW: 1. Acute post-op Resp Insuff 2. r/o Pulm Vascular Congestion 3. Thrombocytopenia 4. Chronic Disease Anemia PLAN: 1. Observe Post op resp status in ICU. So far, no need for re-intubation, arrived to ICU on 100% NRBM, SPo2 98%. If tolerated will downgrade supplemental oxygen later. She is awake, does not appear distressed, otherwise non-verbal ( unclear if this is her baseline). HFNC as tolerated if supplemental oxygen is required beyond oxygen delivery by NRBM mask. 2. Check repeat CXR. 3. Continue D5W0.45% IVFs as ordered from 05/10/17 for now. If needed, will fluid challenge later for any hypotension or oliguria. 4. Duonebs Q4-6H for now. Will try to hold off on IV steroids for now. 5. Ensured by Anesthesiologist that spinal given with Morphine sulfate should last for at least the next 18h. 6. SCDs ordered. Lovenox to resume after 24H post-op. CCU Objective - Vital Signs / Intake & Output Intake and Output (Last 8hrs): Intake & Output 05/11/17 05/11/17 05/11/17 06:59 14:59 22:59 Intake Total 840 Output Total 575 Balance 265 Intake: IV 840 Output: Urine 575 Urethral ([place]) 575 - Physical Exam Physical Exam Limitations: Positive for: Altered Mental Status Head: Positive for: Normocephalic Pupils: Positive for: PERRL Extroacular Muscles: Positive for: EOMI. Negative for: Gaze Palsy Conjunctiva: Negative for: Icteric Mouth: Positive for: Moist Mucous Membranes. Negative for: Drooling Respiratory/Chest: Positive for: Clear to Auscultation, Decreased Breath Sounds Cardiovascular: Positive for: Regular Rate and Rhythm, Normal S1, S2. Negative for: Murmurs, Rub Abdomen: Positive for: Normal Bowel Sounds. Negative for: Tenderness, Distention, Guarding, Mass/Organomegaly Upper Extremity: Positive for: NORMAL PULSES. Negative for: Cyanosis Lower Extremity: Positive for: NORMAL PULSES. Negative for: CALF TENDERNESS, Cyanosis Neurological: Positive for: Motor Func Grossly Intact Skin: Positive for: Warm, Dry. Negative for: Rashes - Medications Active Medications: Active Medications Generic Name Dose Route Start Last Admin Trade Name Freq PRN Reason Stop Dose Admin Acetaminophen 650 mg 05/06/17 02:46 Tylenol 325mg Tab PO Q6 PRN Pain, Mild (1-3) Aspirin 81 mg 05/06/17 09:00 05/10/17 09:29 Aspirin Chewable PO Not Given DAILY [facility] Atorvastatin Calcium 40 mg 05/06/17 22:00 05/10/17 22:12 Lipitor PO Not Given HS [facility] Bisacodyl 10 mg 05/06/17 05:33 Dulcolax SD Q48H PRN Constipation Calcium/Vitamin D 1 tab 05/06/17 09:00 05/11/17 09:09 Oyster Shell Calcium/Vitamin D 500 Mg-200 Iu PO Not Given DAILY [facility] Cyanocobalamin 1,000 mcg 05/06/17 02:45 Vitamin B12 1000 Mcg/Ml Inj IM Q30D [facility] Divalproex Sodium 125 mg 05/06/17 09:00 05/11/17 09:08 Depakote Sprinkles PO Not Given DAILY [facility] Duloxetine HCl 20 mg 05/06/17 09:00 05/11/17 09:08 Cymbalta PO Not Given DAILY [facility] Enoxaparin Sodium 40 mg 05/06/17 02:30 05/07/17 09:07 Lovenox SC 40 mg DAILY [facility] Administration Protocol Enoxaparin Sodium 40 mg 05/12/17 16:00 Lovenox SC Q24H [facility] Protocol Ergocalciferol 1 cap 05/06/17 02:45 Drisdol 50,000 Intl Units Cap PO QWK [facility] Gabapentin 100 mg 05/06/17 09:00 05/11/17 09:09 Neurontin PO Not Given TID [facility] Hydromorphone HCl 0.5 mg 05/09/17 17:56 05/11/17 09:30 Dilaudid IVP 0.5 mg Q4 PRN Administration Pain, severe (8-10) Dextrose/Sodium Chloride 1,000 mls @ 70 mls/hr 05/10/17 23:00 05/11/17 05:22 Dextrose 5%/0.45% Ns 1000 Ml IV 05/11/17 22:58 70 mls/hr .[id number] [facility] Administration Clindamycin Phosphate 600 mg in 50 mls @ 100 mls/hr 05/11/17 20:00 Cleocin In Normal Saline IVPB Q8H [facility] Protocol Lamotrigine 25 mg 05/06/17 09:00 05/11/17 09:09 Lamictal PO Not Given TID [facility] Levofloxacin 500 mg 05/07/17 09:00 05/11/17 09:09 Levaquin PO Not Given DAILY [facility] Protocol Magnesium Hydroxide 30 ml 05/06/17 02:32 Milk Of Magnesia PO Q48H PRN Constipation Meclizine HCl 12.5 mg 05/06/17 09:00 05/11/17 09:08 Antivert PO Not Given TID [facility] Nitroglycerin 1 ea 05/06/17 17:15 05/11/17 05:23 Nitro-Bid 2% Oint TOP 1 ea Q6H [facility] Administration Oxybutynin Chloride 5 mg 05/06/17 09:00 05/11/17 09:08 Ditropan Tab PO Not Given TID [facility] Pantoprazole Sodium 40 mg 05/07/17 09:00 05/11/17 09:09 Protonix Ec Tab PO Not Given DAILY [facility] Fluticasone/Salmeterol 1 puff 05/06/17 09:00 05/11/17 09:28 Advair Diskus 500/50 IH Not Given Q12 [facility] Tramadol HCl 50 mg 05/10/17 14:31 Ultram PO Q6 PRN Pain, moderate (4-7) - Patient Studies Lab Studies: Lab Studies 05/11/17 05/11/17 Range/Units 05:45 05:45 WBC 7.0 (4.8-10.8) K/uL RBC 4.57 (3.80-5.20) Mil/uL Hgb 12.9 (12.0-16.0) g/dL Hct 39.6 (34.0-47.0) % MCV 86.6 (81.0-99.0) fl MCH 28.2 (27.0-31.0) pg MCHC 32.6 L (33.0-37.0) g/dL RDW 14.1 (11.5-14.5) % Plt Count 124 L D (130-400) K/uL Manual Plt Count 125 L (130-400) K/uL MPV 9.5 (7.2-11.7) fl Neut % (Auto) 61.3 (50.0-75.0) % Lymph % (Auto) 17.6 L (20.0-40.0) % [place] % (Auto) 16.0 H (0.0-10.0) % Eos % (Auto) 4.7 H (0.0-4.0) % Baso % (Auto) 0.4 (0.0-2.0) % Neut # 4.3 (1.8-7.0) K/uL Lymph # 1.2 (1.0-4.3) K/uL [place] # 1.1 H (0.0-0.8) K/uL Eos # 0.3 (0.0-0.7) K/uL Baso # 0.0 (0.0-0.2) K/uL PT 13.6 H (9.8-13.1) Seconds INR 1.2 (0.9-1.2) APTT 29.4 (25.6-37.1) Seconds Laboratory Results - last 24 hr 05/11/17 05/11/17 05:45 05:45 WBC 7.0 RBC 4.57 Hgb 12.9 Hct 39.6 MCV 86.6 MCH 28.2 MCHC 32.6 L RDW 14.1 Plt Count 124 L D Manual Plt Count 125 L MPV 9.5 Neut % (Auto) 61.3 Lymph % (Auto) 17.6 L [place] % (Auto) 16.0 H Eos % (Auto) 4.7 H Baso % (Auto) 0.4 Neut # 4.3 Lymph # 1.2 [place] # 1.1 H Eos # 0.3 Baso # 0.0 PT 13.6 H INR 1.2 APTT 29.4 Radiology Interpretations (Free Text): See above EKG/Cardiology Interpretations (Free Text): See above Fingerstick Blood Sugar Results: 152 Review of Systems - Review of Systems Systems not reviewed;Unavailable: Dementia Critical Care Progress Note - Nutrition Nutrition: Nutrition Category Date Time Status Heart Healthy Diet [DIET] Diets 05/11/17 Dinner Active
[2017-05-11] MEDS: Clindamycin 600mg/50ml NS 600 MG/50 ML BAG IVPB SCH (21:45)
--- NOTE | 2017-05-11 22:27 | CP.PCM.PN ---
Subjective - Date & Time of Evaluation Date of Evaluation: 05/11/17 Time of Evaluation: 11:00 - Subjective Subjective: Appears comfortable For platelet transfusion prior to OR Objective - Vital Signs/Intake and Output Vital Signs (last 24 hours): Temp Pulse Resp BP Pulse Ox 98.6 F 116 H 23 122/60 99 05/11/17 17:50 05/11/17 22:25 05/11/17 17:50 05/11/17 22:25 05/11/17 17:50 Intake and Output: 05/11/17 05/12/17 18:59 06:59 Intake Total 1000 Output Total 200 Balance 800 - Medications Medications: Current Medications Acetaminophen (Tylenol 325mg Tab) 650 mg PO Q6 PRN PRN Reason: Pain, Mild (1-3) Aspirin (Aspirin Chewable) 81 mg PO DAILY REPLACED BY [facility] Last Admin: 05/10/17 09:29 Dose: Not Given Atorvastatin Calcium (Lipitor) 40 mg PO HS REPLACED BY [facility] Last Admin: 05/11/17 21:57 Dose: Not Given Bisacodyl (Dulcolax) 10 mg [place] Q48H PRN PRN Reason: Constipation Calcium/Vitamin D (Oyster Shell Calcium/Vitamin D 500 Mg-200 Iu) 1 tab PO DAILY REPLACED BY [facility] Last Admin: 05/11/17 09:09 Dose: Not Given Cyanocobalamin (Vitamin B12 1000 Mcg/Ml Inj) 1,000 mcg IM Q30D REPLACED BY [facility] Divalproex Sodium (Depakote Sprinkles) 125 mg PO DAILY REPLACED BY [facility] Last Admin: 05/11/17 09:08 Dose: Not Given Duloxetine HCl (Cymbalta) 20 mg PO DAILY REPLACED BY [facility] Last Admin: 05/11/17 09:08 Dose: Not Given Enoxaparin Sodium (Lovenox) 40 mg SC DAILY REPLACED BY [facility] PRN Reason: Protocol Last Admin: 05/07/17 09:07 Dose: 40 mg Enoxaparin Sodium (Lovenox) 40 mg SC Q24H REPLACED BY [facility] PRN Reason: Protocol Ergocalciferol (Drisdol 50,000 Intl Units Cap) 1 cap PO QWK REPLACED BY [facility] Gabapentin (Neurontin) 100 mg PO TID REPLACED BY [facility] Last Admin: 05/11/17 09:09 Dose: Not Given Hydromorphone HCl (Dilaudid) 0.5 mg IVP Q4 PRN PRN Reason: Pain, severe (8-10) Last Admin: 05/11/17 09:30 Dose: 0.5 mg Dextrose/Sodium Chloride (Dextrose 5%/0.45% Ns 1000 Ml) 1,000 mls @ 70 mls/hr IV .[id number] REPLACED BY [facility] Stop: 05/11/17 22:58 Last Admin: 05/11/17 21:01 Dose: 70 mls/hr Clindamycin Phosphate (Cleocin In Normal Saline) 600 mg in 50 mls @ 100 mls/hr IVPB Q8H [facility] PRN Reason: Protocol Last Admin: 05/11/17 21:45 Dose: 100 mls/hr Lamotrigine (Lamictal) 25 mg PO TID REPLACED BY [facility] Last Admin: 05/11/17 09:09 Dose: Not Given Levofloxacin (Levaquin) 500 mg PO DAILY REPLACED BY [facility] PRN Reason: Protocol Last Admin: 05/11/17 09:09 Dose: Not Given Magnesium Hydroxide (Milk Of Magnesia) 30 ml PO Q48H PRN PRN Reason: Constipation Meclizine HCl (Antivert) 12.5 mg PO TID REPLACED BY [facility] Last Admin: 05/11/17 09:08 Dose: Not Given Nitroglycerin (Nitro-Bid 2% Oint) 1 ea TOP Q6H REPLACED BY [facility] Last Admin: 05/11/17 22:25 Dose: 1 ea Oxybutynin Chloride (Ditropan Tab) 5 mg PO TID REPLACED BY [facility] Last Admin: 05/11/17 09:08 Dose: Not Given Pantoprazole Sodium (Protonix Ec Tab) 40 mg PO DAILY REPLACED BY [facility] Last Admin: 05/11/17 09:09 Dose: Not Given Fluticasone/Salmeterol (Advair Diskus 500/50) 1 puff IH Q12 REPLACED BY [facility] Last Admin: 05/11/17 21:56 Dose: Not Given Tramadol HCl (Ultram) 50 mg PO Q6 PRN PRN Reason: Pain, moderate (4-7) - Labs Labs: 05/11/17 05:45 05/09/17 05:35 PT 13.6 Seconds (9.8-13.1) H 05/11/17 05:45 INR 1.2 (0.9-1.2) 05/11/17 05:45 APTT 29.4 Seconds (25.6-37.1) 05/11/17 05:45 - Head Exam Head Exam: ATRAUMATIC - Eye Exam Eye Exam: Normal appearance - ENT Exam ENT Exam: Mucous Membranes Dry - Respiratory Exam Respiratory Exam: NORMAL BREATHING PATTERN - Cardiovascular Exam Cardiovascular Exam: +S1, +S2 - GI/Abdominal Exam GI & Abdominal Exam: Normal Bowel Sounds Assessment and Plan (1) Thrombocytopenia Assessment & Plan: with platelet dysfunction from aspirin apirin on hold for platelet transfusion prior to OR Status: Chronic
[2017-05-12] MEDS: Nitroglycerin 2% Ointment Foilpak UD TOP SCH ×3 (05:27→16:54)
[2017-05-12] MEDS: Clindamycin 600mg/50ml NS 600 MG/50 ML BAG IVPB SCH ×3 (05:29→20:46)
[2017-05-12 05:52] LABS: HEMOGLOBIN 10.8 g/dL (12.0-16.0); MEAN CELL VOLUME 87.4 fl (81.0-99.0); MEAN CORPUSCULAR HEMOGLOBIN 27.8 pg (27.0-31.0); MEAN CORPUSCULAR HGB CONC 31.8 g/dL (33.0-37.0); RBC 3.88 Mil/uL (3.80-5.20); RED CELL DISTRIBUTION WIDTH 14.2 % (11.5-14.5); WHITE BLOOD COUNT 6.6 K/uL (4.8-10.8)
[2017-05-12 06:11] LABS: BLOOD UREA NITROGEN 10 mg/dl (7-17); CALCIUM 8.5 mg/dL (8.4-10.2); GFR AFRICAN-AMERICAN > 60; GFR NON-AFRICAN AMERICAN > 60
[2017-05-12] MEDS ORDERED: Potassium Chl 20 mEq in NS 1,000 ML IV SCH (07:15)
[2017-05-12] MEDS: Fluticasone-Salmeterol 500-50mcg Diskus IH SCH ×2 (08:34→21:55)
[2017-05-12] MEDS: Pantoprazole 40 mg EC Tab PO SCH (08:35)
[2017-05-12] MEDS: levoFLOXacin 500 MG TAB PO SCH (08:35)
[2017-05-12] MEDS: Divalproex 125 mg Sprinkle Capsule PO SCH (08:35)
[2017-05-12] MEDS: Calcium-Vit D 500 mg-200 Units Tab UD PO SCH (08:35)
[2017-05-12] MEDS: HYDROmorphone 0.5 mg/0.5 ml ISec IVP PRN ×3 (09:02→17:16)
--- NOTE | 2017-05-12 09:31 | CP.PCM.PN ---
<Bello,Corin - Last Filed: 05/12/17 09:32> Subjective - Date & Time of Evaluation Date of Evaluation: 05/12/17 Time of Evaluation: 09:30 - Subjective Subjective: PGY 2 progress note for cardiology, Dr. Varghese Pt seen and examined at bedside. Pt under went L ORIF POD#1. She was transferred to ICU for respiratory monitoring as she was sating at 87% on RA after extubation from procedure. Pt is currently on NC sating at 93%. She is awake and talking. She is not answering questions though and continues talking in [place]. 12 point ROS unobtainable due to dementia. Objective - Vital Signs/Intake and Output Vital Signs (last 24 hours): Temp Pulse Resp BP Pulse Ox 99.8 F H 115 H 9 L 130/66 100 05/12/17 08:00 05/12/17 08:00 05/12/17 08:00 05/12/17 08:00 05/12/17 08:00 Intake and Output: 05/12/17 05/12/17 06:59 18:59 Intake Total 840 100 Balance 840 100 - Medications Medications: Current Medications Acetaminophen (Tylenol 325mg Tab) 650 mg PO Q6 PRN PRN Reason: Pain, Mild (1-3) Aspirin (Aspirin Chewable) 81 mg PO DAILY [facility] Last Admin: 05/10/17 09:29 Dose: Not Given Atorvastatin Calcium (Lipitor) 40 mg PO HS [facility] Last Admin: 05/11/17 21:57 Dose: Not Given Bisacodyl (Dulcolax) 10 mg [place] Q48H PRN PRN Reason: Constipation Calcium/Vitamin D (Oyster Shell Calcium/Vitamin D 500 Mg-200 Iu) 1 tab PO DAILY [facility] Last Admin: 05/12/17 08:35 Dose: 1 tab Cyanocobalamin (Vitamin B12 1000 Mcg/Ml Inj) 1,000 mcg IM Q30D [facility] Divalproex Sodium (Depakote Sprinkles) 125 mg PO DAILY [facility] Last Admin: 05/12/17 08:35 Dose: 125 mg Duloxetine HCl (Cymbalta) 20 mg PO DAILY [facility] Last Admin: 05/12/17 08:34 Dose: 20 mg Enoxaparin Sodium (Lovenox) 40 mg SC DAILY [facility] PRN Reason: Protocol Last Admin: 05/07/17 09:07 Dose: 40 mg Enoxaparin Sodium (Lovenox) 40 mg SC Q24H [facility] PRN Reason: Protocol Ergocalciferol (Drisdol 50,000 Intl Units Cap) 1 cap PO QWK [facility] Gabapentin (Neurontin) 100 mg PO TID [facility] Last Admin: 05/12/17 08:35 Dose: 100 mg Hydromorphone HCl (Dilaudid) 0.5 mg IVP Q4 PRN PRN Reason: Pain, severe (8-10) Last Admin: 05/12/17 09:02 Dose: 0.5 mg Clindamycin Phosphate (Cleocin In Normal Saline) 600 mg in 50 mls @ 100 mls/hr IVPB Q8H [facility] PRN Reason: Protocol Last Admin: 05/12/17 05:29 Dose: 100 mls/hr Potassium Chloride/Sodium Chloride (Potassium Chl 20 Meq In Ns) 1,000 mls @ 50 mls/hr IV .Q20H [facility] Stop: 05/13/17 07:13 Potassium Chloride/Dextrose/Sod Cl (Potassium Chl 20 Meq In D5-1/2ns) 1,000 mls @ 100 mls/hr IV .Q10H [facility] Stop: 05/13/17 07:15 Potassium Chloride 10 meq/ (Sodium Chloride) 105 mls @ 105 mls/hr IV Q1 [facility] Stop: 05/12/17 10:59 Last Admin: 05/12/17 08:46 Dose: 105 mls/hr Lamotrigine (Lamictal) 25 mg PO TID [facility] Last Admin: 05/12/17 08:35 Dose: 25 mg Levofloxacin (Levaquin) 500 mg PO DAILY [facility] PRN Reason: Protocol Last Admin: 05/12/17 08:35 Dose: 500 mg Magnesium Hydroxide (Milk Of Magnesia) 30 ml PO Q48H PRN PRN Reason: Constipation Meclizine HCl (Antivert) 12.5 mg PO TID [facility] Last Admin: 05/12/17 08:35 Dose: 12.5 mg Nitroglycerin (Nitro-Bid 2% Oint) 1 ea TOP Q6H [facility] Last Admin: 05/12/17 05:27 Dose: 1 ea Oxybutynin Chloride (Ditropan Tab) 5 mg PO TID [facility] Last Admin: 05/12/17 08:35 Dose: 5 mg Pantoprazole Sodium (Protonix Ec Tab) 40 mg PO DAILY [facility] Last Admin: 05/12/17 08:35 Dose: 40 mg Fluticasone/Salmeterol (Advair Diskus 500/50) 1 puff IH Q12 [facility] Last Admin: 05/12/17 08:34 Dose: 1 puff Tramadol HCl (Ultram) 50 mg PO Q6 PRN PRN Reason: Pain, moderate (4-7) Last Admin: 05/12/17 08:34 Dose: 50 mg - Labs Labs: 05/12/17 04:20 05/12/17 04:20 PT 13.6 Seconds (9.8-13.1) H 05/11/17 05:45 INR 1.2 (0.9-1.2) 05/11/17 05:45 APTT 29.4 Seconds (25.6-37.1) 05/11/17 05:45 - Constitutional Appears: Non-toxic, No Acute Distress - Head Exam Head Exam: ATRAUMATIC, NORMOCEPHALIC - Eye Exam Eye Exam: EOMI - ENT Exam ENT Exam: Mucous Membranes Moist - Respiratory Exam Respiratory Exam: Clear to Ausculation Bilateral. absent: Accessory Muscle Use , Rales, Rhonchi, Wheezes, Respiratory Distress - Cardiovascular Exam Cardiovascular Exam: REGULAR RHYTHM, +S1, +S2. absent: Gallop, Rubs, Murmur - GI/Abdominal Exam GI & Abdominal Exam: Soft, Normal Bowel Sounds. absent: Distended, Firm, Guarding, Rigid, Tenderness, Organomegaly - Extremities Exam Extremities Exam: absent: Calf Tenderness, Pedal Edema, Tenderness Additional comments: left hip bandaged up B/L DP pulses present - Neurological Exam Neurological Exam: Awake. absent: Alert, Oriented x3 - Skin Skin Exam: Dry, Intact, Normal Color, Warm Assessment and Plan - Assessment and Plan (Free Text) Assessment: 81 year old female with past medical history of HTN, HLD, arthritis, asthma, anxiety, depression, osteoporosis, seizure d/o and dementia underwent Left ORIF POD #1. 1. Cardiac clearance for orthopedic surgery - Pt is moderate risk for adverse cardiac event for non-cardiac procedure 2. Left femur fracture s/p ORIF hip bandaged. currently on SCDs. Lovenox to resume 24 hours post-op Pt had nerve block with morphine which should last about 18 hours. Is not complaining of pain right now 3. Post op respiratory distress - On NC sating at 93% - Currently being monitored in ICU 4. HTN - Stable - Will continue to monitor VS 5. HLD - lipid panel checked is normal - Will continue home lipitor dose 6. Asthma - continue management per primary care team 7. Thrombocytopenia - Received 1 unit of platelets yesterday. Platelet level normal today Case will be discussed with attending, Dr. Varghese <Juarez Varghese - Last Filed: 05/12/17 10:34> Objective - Vital Signs/Intake and Output Vital Signs (last 24 hours): Temp Pulse Resp BP Pulse Ox 99.8 F H 115 H 9 L 130/66 100 05/12/17 08:00 05/12/17 08:00 05/12/17 08:00 05/12/17 08:00 05/12/17 08:00 Intake and Output: 05/12/17 05/12/17 06:59 18:59 Intake Total 840 100 Balance 840 100 - Medications Medications: Current Medications Acetaminophen (Tylenol 325mg Tab) 650 mg PO Q6 PRN PRN Reason: Pain, Mild (1-3) Aspirin (Aspirin Chewable) 81 mg PO DAILY [facility] Last Admin: 05/10/17 09:29 Dose: Not Given Atorvastatin Calcium (Lipitor) 40 mg PO HS [facility] Last Admin: 05/11/17 21:57 Dose: Not Given Bisacodyl (Dulcolax) 10 mg [place] Q48H PRN PRN Reason: Constipation Calcium/Vitamin D (Oyster Shell Calcium/Vitamin D 500 Mg-200 Iu) 1 tab PO DAILY [facility] Last Admin: 05/12/17 08:35 Dose: 1 tab Cyanocobalamin (Vitamin B12 1000 Mcg/Ml Inj) 1,000 mcg IM Q30D [facility] Divalproex Sodium (Depakote Sprinkles) 125 mg PO DAILY [facility] Last Admin: 05/12/17 08:35 Dose: 125 mg Duloxetine HCl (Cymbalta) 20 mg PO DAILY [facility] Last Admin: 05/12/17 08:34 Dose: 20 mg Enoxaparin Sodium (Lovenox) 40 mg SC DAILY [facility] PRN Reason: Protocol Last Admin: 05/07/17 09:07 Dose: 40 mg Enoxaparin Sodium (Lovenox) 40 mg SC Q24H [facility] PRN Reason: Protocol Ergocalciferol (Drisdol 50,000 Intl Units Cap) 1 cap PO QWK [facility] Gabapentin (Neurontin) 100 mg PO TID [facility] Last Admin: 05/12/17 08:35 Dose: 100 mg Hydromorphone HCl (Dilaudid) 0.5 mg IVP Q4 PRN PRN Reason: Pain, severe (8-10) Last Admin: 05/12/17 09:02 Dose: 0.5 mg Clindamycin Phosphate (Cleocin In Normal Saline) 600 mg in 50 mls @ 100 mls/hr IVPB Q8H [facility] PRN Reason: Protocol Last Admin: 05/12/17 05:29 Dose: 100 mls/hr Potassium Chloride/Sodium Chloride (Potassium Chl 20 Meq In Ns) 1,000 mls @ 50 mls/hr IV .Q20H [facility] Stop: 05/13/17 07:13 Potassium Chloride/Dextrose/Sod Cl (Potassium Chl 20 Meq In D5-1/2ns) 1,000 mls @ 100 mls/hr IV .Q10H [facility] Stop: 05/13/17 07:15 Potassium Chloride 10 meq/ (Sodium Chloride) 105 mls @ 105 mls/hr IV Q1 [facility] Stop: 05/12/17 10:59 Last Admin: 05/12/17 10:28 Dose: 105 mls/hr Lamotrigine (Lamictal) 25 mg PO TID [facility] Last Admin: 05/12/17 08:35 Dose: 25 mg Levofloxacin (Levaquin) 500 mg PO DAILY [facility] PRN Reason: Protocol Last Admin: 05/12/17 08:35 Dose: 500 mg Magnesium Hydroxide (Milk Of Magnesia) 30 ml PO Q48H PRN PRN Reason: Constipation Meclizine HCl (Antivert) 12.5 mg PO TID [facility] Last Admin: 05/12/17 08:35 Dose: 12.5 mg Nitroglycerin (Nitro-Bid 2% Oint) 1 ea TOP Q6H [facility] Last Admin: 05/12/17 05:27 Dose: 1 ea Oxybutynin Chloride (Ditropan Tab) 5 mg PO TID [facility] Last Admin: 05/12/17 08:35 Dose: 5 mg Pantoprazole Sodium (Protonix Ec Tab) 40 mg PO DAILY [facility] Last Admin: 05/12/17 08:35 Dose: 40 mg Fluticasone/Salmeterol (Advair Diskus 500/50) 1 puff IH Q12 [facility] Last Admin: 05/12/17 08:34 Dose: 1 puff Tramadol HCl (Ultram) 50 mg PO Q6 PRN PRN Reason: Pain, moderate (4-7) Last Admin: 05/12/17 08:34 Dose: 50 mg - Labs Labs: 05/12/17 04:20 05/12/17 04:20 PT 13.6 Seconds (9.8-13.1) H 05/11/17 05:45 INR 1.2 (0.9-1.2) 05/11/17 05:45 APTT 29.4 Seconds (25.6-37.1) 05/11/17 05:45 Assessment and Plan (1) Preop cardiovascular exam Status: Acute (2) HTN (hypertension) Status: Acute (3) COPD (chronic obstructive pulmonary disease) Status: Acute (4) Displaced intertrochanteric fracture of left femur Status: Acute (5) Dyslipidemia Status: Chronic Attending/Attestation - Attestation I have personally seen and examined this patient.: Yes I have fully participated in the care of the patient.: Yes I have reviewed all pertinent clinical information, including history, physical exam and plan: Yes Notes (Text): 05/12/17 10:33 etiology of respiratory failure unclear cxray and BNP
--- NOTE | 2017-05-12 11:34 | RAD ---
PROCEDURE: CHEST RADIOGRAPH, 1 VIEW HISTORY: respiratory distress COMPARISON: Chest radiograph dated 05/07/2017. FINDINGS: Patient rotation limits evaluation. LUNGS: Chronic prominence of the bilateral interstitial markings. Bibasilar atelectasis versus pleural thickening. PLEURA: No pneumothorax or pleural fluid seen. CARDIOVASCULAR: Unchanged. OSSEOUS STRUCTURES: Unchanged. VISUALIZED UPPER ABDOMEN: Normal. OTHER FINDINGS: None. IMPRESSION: Limited evaluation due to patient rotation. Bibasilar atelectasis versus pleural thickening.
[2017-05-12] MEDS: Potassium Ch 20mEq in D5-1/2NS 1,000 ML IV SCH (12:57)
[2017-05-12] MEDS ORDERED: Chlorhexidine Gluconate 1 APPL/PKT TP ONE (13:27)
--- NOTE | 2017-05-12 13:46 | CP.PCM.PN ---
Subjective - Date & Time of Evaluation Date of Evaluation: 05/12/17 Time of Evaluation: 10:45 - Subjective Subjective: S/P L ORIF, pod #1 Pt from OR to ICU after extubation due to Post Op respiratory distress, awake , confused , Patient is refusing to eat and take medications Objective - Vital Signs/Intake and Output Vital Signs (last 24 hours): Temp Pulse Resp BP Pulse Ox 99.9 F H 107 H 11 L 129/83 100 05/12/17 12:00 05/12/17 12:00 05/12/17 12:00 05/12/17 12:00 05/12/17 12:00 Intake and Output: 05/12/17 05/12/17 06:59 18:59 Intake Total 840 250 Output Total 300 Balance 840 -50 - Medications Medications: Current Medications Acetaminophen (Tylenol 325mg Tab) 650 mg PO Q6 PRN PRN Reason: Pain, Mild (1-3) Aspirin (Aspirin Chewable) 81 mg PO DAILY [facility] Last Admin: 05/10/17 09:29 Dose: Not Given Atorvastatin Calcium (Lipitor) 40 mg PO HS [facility] Last Admin: 05/11/17 21:57 Dose: Not Given Bisacodyl (Dulcolax) 10 mg [place] Q48H PRN PRN Reason: Constipation Calcium/Vitamin D (Oyster Shell Calcium/Vitamin D 500 Mg-200 Iu) 1 tab PO DAILY [facility] Last Admin: 05/12/17 08:35 Dose: 1 tab Cyanocobalamin (Vitamin B12 1000 Mcg/Ml Inj) 1,000 mcg IM Q30D [facility] Divalproex Sodium (Depakote Sprinkles) 125 mg PO DAILY [facility] Last Admin: 05/12/17 08:35 Dose: 125 mg Duloxetine HCl (Cymbalta) 20 mg PO DAILY [facility] Last Admin: 05/12/17 08:34 Dose: 20 mg Enoxaparin Sodium (Lovenox) 40 mg SC DAILY [facility] PRN Reason: Protocol Last Admin: 05/07/17 09:07 Dose: 40 mg Enoxaparin Sodium (Lovenox) 40 mg SC Q24H [facility] PRN Reason: Protocol Ergocalciferol (Drisdol 50,000 Intl Units Cap) 1 cap PO QWK [facility] Gabapentin (Neurontin) 100 mg PO TID [facility] Last Admin: 05/12/17 12:45 Dose: Not Given Hydromorphone HCl (Dilaudid) 0.5 mg IVP Q4 PRN PRN Reason: Pain, severe (8-10) Last Admin: 05/12/17 13:38 Dose: 0.5 mg Clindamycin Phosphate (Cleocin In Normal Saline) 600 mg in 50 mls @ 100 mls/hr IVPB Q8H [facility] PRN Reason: Protocol Last Admin: 05/12/17 12:59 Dose: 100 mls/hr Potassium Chloride/Dextrose/Sod Cl (Potassium Chl 20 Meq In D5-1/2ns) 1,000 mls @ 100 mls/hr IV .Q10H [facility] Stop: 05/13/17 07:15 Last Admin: 05/12/17 12:57 Dose: 100 mls/hr Lamotrigine (Lamictal) 25 mg PO TID [facility] Last Admin: 05/12/17 08:35 Dose: 25 mg Levofloxacin (Levaquin) 500 mg PO DAILY [facility] PRN Reason: Protocol Last Admin: 05/12/17 08:35 Dose: 500 mg Magnesium Hydroxide (Milk Of Magnesia) 30 ml PO Q48H PRN PRN Reason: Constipation Meclizine HCl (Antivert) 12.5 mg PO TID [facility] Last Admin: 05/12/17 08:35 Dose: 12.5 mg Nitroglycerin (Nitro-Bid 2% Oint) 1 ea TOP Q6H [facility] Last Admin: 05/12/17 11:25 Dose: 1 ea Oxybutynin Chloride (Ditropan Tab) 5 mg PO TID [facility] Last Admin: 05/12/17 08:35 Dose: 5 mg Pantoprazole Sodium (Protonix Ec Tab) 40 mg PO DAILY [facility] Last Admin: 05/12/17 08:35 Dose: 40 mg Fluticasone/Salmeterol (Advair Diskus 500/50) 1 puff IH Q12 [facility] Last Admin: 05/12/17 08:34 Dose: 1 puff Tramadol HCl (Ultram) 50 mg PO Q6 PRN PRN Reason: Pain, moderate (4-7) Last Admin: 05/12/17 08:34 Dose: 50 mg - Labs Labs: 05/12/17 04:20 05/12/17 04:20 PT 13.6 Seconds (9.8-13.1) H 05/11/17 05:45 INR 1.2 (0.9-1.2) 05/11/17 05:45 APTT 29.4 Seconds (25.6-37.1) 05/11/17 05:45 - Constitutional Appears: No Acute Distress, Chronically Ill - Head Exam Head Exam: NORMAL INSPECTION - Eye Exam Eye Exam: PERRL - ENT Exam ENT Exam: Normal Exam - Neck Exam Neck Exam: Normal Inspection - Respiratory Exam Respiratory Exam: Decreased Breath Sounds (at bases) - Cardiovascular Exam Cardiovascular Exam: REGULAR RHYTHM, Murmur - GI/Abdominal Exam GI & Abdominal Exam: Soft, Normal Bowel Sounds - Extremities Exam Additional comments: L hip dressing and dry, neuromuscular status distal good LLE , b/l DP pulse present. - Back Exam Back Exam: tenderness (mild) - Neurological Exam Neurological Exam: Awake, CN II-XII Intact, Oriented x3 Additional comments: Confused, generalized weakness, no focal deficit - Psychiatric Exam Additional comments: confused - Skin Skin Exam: Normal Color, Warm Assessment and Plan (1) Displaced intertrochanteric fracture of left femur Assessment & Plan: s/p L Hip IM nailing PO Day 1 Status: Acute (2) Hip fracture, left Status: Acute (3) Back pain Status: Chronic (4) Compression fracture Status: Chronic (5) Constipation Status: Acute (6) COPD (chronic obstructive pulmonary disease) Status: Acute (7) Seizure Status: Chronic (8) HTN (hypertension) Status: Acute (9) High cholesterol Status: Acute (10) Vitamin D deficiency Status: Resolved (11) Thrombocytopenia Status: Chronic (12) Anemia Status: Acute (13) Dementia Status: Chronic - Assessment and Plan (Free Text) Plan: Hgb 10.8 , Platelet 152 , continue current medications , monitor po intake of medications meals and fluids ,PT stable post op. ICU time 40 minutes.
--- NOTE | 2017-05-12 14:57 | CP.PCM.PN ---
Subjective - Date & Time of Evaluation Date of Evaluation: 05/12/17 Time of Evaluation: 14:55 - Subjective Subjective: Patient sleeping, easily aroused. Complains "no, no" during exam. Objective - Vital Signs/Intake and Output Vital Signs (last 24 hours): Temp Pulse Resp BP Pulse Ox 99.9 F H 117 H 14 133/64 100 05/12/17 12:00 05/12/17 14:00 05/12/17 14:00 05/12/17 14:00 05/12/17 12:00 Intake and Output: 05/12/17 05/12/17 06:59 18:59 Intake Total 840 350 Output Total 300 Balance 840 50 - Medications Medications: Current Medications Acetaminophen (Tylenol 325mg Tab) 650 mg PO Q6 PRN PRN Reason: Pain, Mild (1-3) Aspirin (Aspirin Chewable) 81 mg PO DAILY [facility] Last Admin: 05/10/17 09:29 Dose: Not Given Atorvastatin Calcium (Lipitor) 40 mg PO HS [facility] Last Admin: 05/11/17 21:57 Dose: Not Given Bisacodyl (Dulcolax) 10 mg [place] Q48H PRN PRN Reason: Constipation Calcium/Vitamin D (Oyster Shell Calcium/Vitamin D 500 Mg-200 Iu) 1 tab PO DAILY [facility] Last Admin: 05/12/17 08:35 Dose: 1 tab Cyanocobalamin (Vitamin B12 1000 Mcg/Ml Inj) 1,000 mcg IM Q30D [facility] Divalproex Sodium (Depakote Sprinkles) 125 mg PO DAILY [facility] Last Admin: 05/12/17 08:35 Dose: 125 mg Duloxetine HCl (Cymbalta) 20 mg PO DAILY [facility] Last Admin: 05/12/17 08:34 Dose: 20 mg Enoxaparin Sodium (Lovenox) 40 mg SC DAILY [facility] PRN Reason: Protocol Last Admin: 05/07/17 09:07 Dose: 40 mg Enoxaparin Sodium (Lovenox) 40 mg SC Q24H [facility] PRN Reason: Protocol Ergocalciferol (Drisdol 50,000 Intl Units Cap) 1 cap PO QWK [facility] Gabapentin (Neurontin) 100 mg PO TID [facility] Last Admin: 05/12/17 12:45 Dose: Not Given Hydromorphone HCl (Dilaudid) 0.5 mg IVP Q4 PRN PRN Reason: Pain, severe (8-10) Last Admin: 05/12/17 13:38 Dose: 0.5 mg Clindamycin Phosphate (Cleocin In Normal Saline) 600 mg in 50 mls @ 100 mls/hr IVPB Q8H [facility] PRN Reason: Protocol Last Admin: 05/12/17 12:59 Dose: 100 mls/hr Potassium Chloride/Dextrose/Sod Cl (Potassium Chl 20 Meq In D5-1/2ns) 1,000 mls @ 100 mls/hr IV .Q10H [facility] Stop: 05/13/17 07:15 Last Admin: 05/12/17 12:57 Dose: 100 mls/hr Lamotrigine (Lamictal) 25 mg PO TID [facility] Last Admin: 05/12/17 08:35 Dose: 25 mg Levofloxacin (Levaquin) 500 mg PO DAILY [facility] PRN Reason: Protocol Last Admin: 05/12/17 08:35 Dose: 500 mg Magnesium Hydroxide (Milk Of Magnesia) 30 ml PO Q48H PRN PRN Reason: Constipation Meclizine HCl (Antivert) 12.5 mg PO TID [facility] Last Admin: 05/12/17 13:54 Dose: Not Given Nitroglycerin (Nitro-Bid 2% Oint) 1 ea TOP Q6H [facility] Last Admin: 05/12/17 11:25 Dose: 1 ea Oxybutynin Chloride (Ditropan Tab) 5 mg PO TID [facility] Last Admin: 05/12/17 13:54 Dose: Not Given Pantoprazole Sodium (Protonix Ec Tab) 40 mg PO DAILY [facility] Last Admin: 05/12/17 08:35 Dose: 40 mg Fluticasone/Salmeterol (Advair Diskus 500/50) 1 puff IH Q12 [facility] Last Admin: 05/12/17 08:34 Dose: 1 puff Tramadol HCl (Ultram) 50 mg PO Q6 PRN PRN Reason: Pain, moderate (4-7) Last Admin: 05/12/17 08:34 Dose: 50 mg - Labs Labs: 05/12/17 04:20 05/12/17 04:20 PT 13.6 Seconds (9.8-13.1) H 05/11/17 05:45 INR 1.2 (0.9-1.2) 05/11/17 05:45 APTT 29.4 Seconds (25.6-37.1) 05/11/17 05:45 - Extremities Exam Additional comments: Left hip: dressing intact, no visible drainage. +ROM ankle/toes (during exam, not on command) +DP/PT pulses, heel protector boots intact, calves soft NT neg homans +venodynes Assessment and Plan (1) Displaced intertrochanteric fracture of left femur Assessment & Plan: POD#1 s/p left hip IM nailing PT/OT VTE proph pt on lovenox labs reviewed d/c planning d/w Dr. Barboza, agrees with above Status: Acute
--- NOTE | 2017-05-12 16:15 | CP.PCM.PN ---
Subjective - Date & Time of Evaluation Date of Evaluation: 05/12/17 Time of Evaluation: 11:00 - Subjective Subjective: Appears comfortable s/p orthopedic surgery Objective - Vital Signs/Intake and Output Vital Signs (last 24 hours): Temp Pulse Resp BP Pulse Ox 99.9 F H 117 H 14 133/64 100 05/12/17 12:00 05/12/17 14:00 05/12/17 14:00 05/12/17 14:00 05/12/17 12:00 Intake and Output: 05/12/17 05/12/17 06:59 18:59 Intake Total 840 350 Output Total 300 Balance 840 50 - Medications Medications: Current Medications Acetaminophen (Tylenol 325mg Tab) 650 mg PO Q6 PRN PRN Reason: Pain, Mild (1-3) Aspirin (Aspirin Chewable) 81 mg PO DAILY [facility] Last Admin: 05/10/17 09:29 Dose: Not Given Atorvastatin Calcium (Lipitor) 40 mg PO HS [facility] Last Admin: 05/11/17 21:57 Dose: Not Given Bisacodyl (Dulcolax) 10 mg [place] Q48H PRN PRN Reason: Constipation Calcium/Vitamin D (Oyster Shell Calcium/Vitamin D 500 Mg-200 Iu) 1 tab PO DAILY [facility] Last Admin: 05/12/17 08:35 Dose: 1 tab Cyanocobalamin (Vitamin B12 1000 Mcg/Ml Inj) 1,000 mcg IM Q30D [facility] Divalproex Sodium (Depakote Sprinkles) 125 mg PO DAILY [facility] Last Admin: 05/12/17 08:35 Dose: 125 mg Duloxetine HCl (Cymbalta) 20 mg PO DAILY [facility] Last Admin: 05/12/17 08:34 Dose: 20 mg Enoxaparin Sodium (Lovenox) 40 mg SC DAILY [facility] PRN Reason: Protocol Last Admin: 05/07/17 09:07 Dose: 40 mg Enoxaparin Sodium (Lovenox) 40 mg SC Q24H [facility] PRN Reason: Protocol Ergocalciferol (Drisdol 50,000 Intl Units Cap) 1 cap PO QWK [facility] Gabapentin (Neurontin) 100 mg PO TID [facility] Last Admin: 05/12/17 12:45 Dose: Not Given Hydromorphone HCl (Dilaudid) 0.5 mg IVP Q4 PRN PRN Reason: Pain, severe (8-10) Last Admin: 05/12/17 13:38 Dose: 0.5 mg Clindamycin Phosphate (Cleocin In Normal Saline) 600 mg in 50 mls @ 100 mls/hr IVPB Q8H [facility] PRN Reason: Protocol Last Admin: 05/12/17 12:59 Dose: 100 mls/hr Potassium Chloride/Dextrose/Sod Cl (Potassium Chl 20 Meq In D5-1/2ns) 1,000 mls @ 100 mls/hr IV .Q10H [facility] Stop: 05/13/17 07:15 Last Admin: 05/12/17 12:57 Dose: 100 mls/hr Lamotrigine (Lamictal) 25 mg PO TID [facility] Last Admin: 05/12/17 08:35 Dose: 25 mg Levofloxacin (Levaquin) 500 mg PO DAILY [facility] PRN Reason: Protocol Last Admin: 05/12/17 08:35 Dose: 500 mg Magnesium Hydroxide (Milk Of Magnesia) 30 ml PO Q48H PRN PRN Reason: Constipation Meclizine HCl (Antivert) 12.5 mg PO TID [facility] Last Admin: 05/12/17 13:54 Dose: Not Given Nitroglycerin (Nitro-Bid 2% Oint) 1 ea TOP Q6H [facility] Last Admin: 05/12/17 11:25 Dose: 1 ea Oxybutynin Chloride (Ditropan Tab) 5 mg PO TID [facility] Last Admin: 05/12/17 13:54 Dose: Not Given Pantoprazole Sodium (Protonix Ec Tab) 40 mg PO DAILY [facility] Last Admin: 05/12/17 08:35 Dose: 40 mg Fluticasone/Salmeterol (Advair Diskus 500/50) 1 puff IH Q12 [facility] Last Admin: 05/12/17 08:34 Dose: 1 puff Tramadol HCl (Ultram) 50 mg PO Q6 PRN PRN Reason: Pain, moderate (4-7) Last Admin: 05/12/17 08:34 Dose: 50 mg - Labs Labs: 05/12/17 04:20 05/12/17 04:20 PT 13.6 Seconds (9.8-13.1) H 05/11/17 05:45 INR 1.2 (0.9-1.2) 05/11/17 05:45 APTT 29.4 Seconds (25.6-37.1) 05/11/17 05:45 - Head Exam Head Exam: ATRAUMATIC - Eye Exam Eye Exam: Normal appearance - ENT Exam ENT Exam: Mucous Membranes Dry - Respiratory Exam Respiratory Exam: NORMAL BREATHING PATTERN - Cardiovascular Exam Cardiovascular Exam: +S1, +S2 - GI/Abdominal Exam GI & Abdominal Exam: Normal Bowel Sounds Assessment and Plan (1) Thrombocytopenia Assessment & Plan: improved s/p platelet transfusion Status: Chronic (2) Anemia Assessment & Plan: mild surgical blood loss Status: Acute
--- NOTE | 2017-05-12 16:19 | RAD ---
PROCEDURE: Left Hip X-ray Radiographs. HISTORY: post op hip nailing COMPARISON: Left hip radiographs dated 05/05/2017. FINDINGS: The patient is status post open reduction internal intramedullary berto and screw fixation of the previously described comminuted intertrochanteric fracture. Osseous components are mass seen with improved alignment. A small amount expected air and fluid is seen adjacent to the surgical bed. Skin vickie are seen superficially. IMPRESSION: Interval berto and screw fixation of left hip fracture.
[2017-05-12] MEDS: Enoxaparin 40 mg Syringe SC SCH (16:49)
--- NOTE | 2017-05-12 19:21 | RAD ---
PROCEDURE: Intraoperative Fluoroscopy. INTRAOPERATIVE FLUOROSCOPY LEFT HIP JOINT HISTORY: LEFT HIP FRACTURE FINDINGS: Fluoroscopic assistance was provided for open reduction internal fixation proximal left femoral fracture. Please refer to the time was utilized with a cumulative dose of 28.49 mGy.
[2017-05-13] MEDS: Nitroglycerin 2% Ointment Foilpak UD TOP SCH ×4 (00:08→16:43)
[2017-05-13] MEDS: Potassium Ch 20mEq in D5-1/2NS 1,000 ML IV SCH ×2 (01:08→03:57)
[2017-05-13] MEDS: Clindamycin 600mg/50ml NS 600 MG/50 ML BAG IVPB SCH ×3 (03:56→20:44)
[2017-05-13] MEDS: Calcium-Vit D 500 mg-200 Units Tab UD PO SCH (10:34)
[2017-05-13] MEDS: Fluticasone-Salmeterol 500-50mcg Diskus IH SCH ×2 (10:35→20:46)
[2017-05-13] MEDS: Pantoprazole 40 mg EC Tab PO SCH (10:35)
[2017-05-13] MEDS: Divalproex 125 mg Sprinkle Capsule PO SCH (10:36)
[2017-05-13] MEDS: levoFLOXacin 500 MG TAB PO SCH (10:36)
[2017-05-13 10:47] LABS: HEMOGLOBIN 9.2 g/dL (12.0-16.0); MEAN CELL VOLUME 87.1 fl (81.0-99.0); MEAN CORPUSCULAR HEMOGLOBIN 28.2 pg (27.0-31.0); MEAN CORPUSCULAR HGB CONC 32.3 g/dL (33.0-37.0); RBC 3.26 Mil/uL (3.80-5.20); RED CELL DISTRIBUTION WIDTH 14.2 % (11.5-14.5); WHITE BLOOD COUNT 7.5 K/uL (4.8-10.8)
[2017-05-13 10:55] LABS: BLOOD UREA NITROGEN 9 mg/dl (7-17); CALCIUM 8.5 mg/dL (8.4-10.2); GFR AFRICAN-AMERICAN > 60; GFR NON-AFRICAN AMERICAN > 60
[2017-05-13] MEDS ORDERED: HYDROmorphone 0.5 mg/0.5 ml ISec ONE (11:26)
[2017-05-13] MEDS ORDERED: HYDROmorphone 0.5 mg/0.5 ml ISec IVP PRN (11:30)
--- NOTE | 2017-05-13 12:43 | CP.PCM.PN ---
Subjective - Subjective Subjective: confused , at times mumbling sounds refusing meals and meds Objective - Vital Signs/Intake and Output Vital Signs (last 24 hours): Temp Pulse Resp BP Pulse Ox 99.0 F 86 20 153/75 H 97 05/13/17 08:06 05/13/17 10:37 05/13/17 08:06 05/13/17 10:37 05/13/17 08:06 Intake and Output: 05/13/17 05/13/17 06:59 18:59 Intake Total 300 800 Balance 300 800 - Medications Medications: Current Medications Acetaminophen (Tylenol 325mg Tab) 650 mg PO Q6 PRN PRN Reason: Pain, Mild (1-3) Aspirin (Aspirin Chewable) 81 mg PO DAILY [facility] Last Admin: 05/10/17 09:29 Dose: Not Given Atorvastatin Calcium (Lipitor) 40 mg PO HS [facility] Last Admin: 05/12/17 21:55 Dose: Not Given Bisacodyl (Dulcolax) 10 mg [place] Q48H PRN PRN Reason: Constipation Calcium/Vitamin D (Oyster Shell Calcium/Vitamin D 500 Mg-200 Iu) 1 tab PO DAILY [facility] Last Admin: 05/13/17 10:34 Dose: 1 tab Cyanocobalamin (Vitamin B12 1000 Mcg/Ml Inj) 1,000 mcg IM Q30D [facility] Divalproex Sodium (Depakote Sprinkles) 125 mg PO DAILY [facility] Last Admin: 05/13/17 10:36 Dose: 125 mg Duloxetine HCl (Cymbalta) 20 mg PO DAILY [facility] Last Admin: 05/13/17 10:36 Dose: 20 mg Enoxaparin Sodium (Lovenox) 40 mg SC Q24H [facility] PRN Reason: Protocol Last Admin: 05/12/17 16:49 Dose: 40 mg Ergocalciferol (Drisdol 50,000 Intl Units Cap) 1 cap PO QWK [facility] Gabapentin (Neurontin) 100 mg PO TID [facility] Last Admin: 05/13/17 10:35 Dose: 100 mg Clindamycin Phosphate (Cleocin In Normal Saline) 600 mg in 50 mls @ 100 mls/hr IVPB Q8H [facility] PRN Reason: Protocol Last Admin: 05/13/17 03:56 Dose: 100 mls/hr Potassium Chloride/Dextrose/Sod Cl (Potassium Chl 40 Meq In D5-1/2ns) 1,000 mls @ 60 mls/hr IV .[id number] [facility] Stop: 05/14/17 11:26 Lamotrigine (Lamictal) 25 mg PO TID [facility] Last Admin: 05/13/17 10:34 Dose: 25 mg Magnesium Hydroxide (Milk Of Magnesia) 30 ml PO Q48H PRN PRN Reason: Constipation Meclizine HCl (Antivert) 12.5 mg PO TID [facility] Last Admin: 05/13/17 10:34 Dose: 12.5 mg Nitroglycerin (Nitro-Bid 2% Oint) 1 ea TOP Q6H [facility] Last Admin: 05/13/17 10:37 Dose: 1 ea Oxybutynin Chloride (Ditropan Tab) 5 mg PO TID [facility] Last Admin: 05/13/17 10:35 Dose: 5 mg Pantoprazole Sodium (Protonix Ec Tab) 40 mg PO DAILY [facility] Last Admin: 05/13/17 10:35 Dose: 40 mg Fluticasone/Salmeterol (Advair Diskus 500/50) 1 puff IH Q12 [facility] Last Admin: 05/13/17 10:35 Dose: 1 puff - Labs Labs: 05/13/17 10:35 05/13/17 10:35 PT 13.6 Seconds (9.8-13.1) H 05/11/17 05:45 INR 1.2 (0.9-1.2) 05/11/17 05:45 APTT 29.4 Seconds (25.6-37.1) 05/11/17 05:45 - Constitutional Appears: Chronically Ill - Head Exam Head Exam: NORMAL INSPECTION - Eye Exam Eye Exam: PERRL - ENT Exam ENT Exam: Normal Exam - Neck Exam Neck Exam: Normal Inspection - Respiratory Exam Respiratory Exam: Decreased Breath Sounds (at bases) - Cardiovascular Exam Cardiovascular Exam: REGULAR RHYTHM, Murmur - GI/Abdominal Exam GI & Abdominal Exam: Soft, Normal Bowel Sounds - Extremities Exam Additional comments: L Hip surgical incision healing well , tenderness, neurormuscular status distal good - Back Exam Back Exam: tenderness - Neurological Exam Neurological Exam: Alert, CN II-XII Intact Additional comments: confused , generalized weakness - Psychiatric Exam Psychiatric exam: Anxious - Skin Skin Exam: Warm Assessment and Plan (1) Displaced intertrochanteric fracture of left femur Status: Acute (2) Hip fracture, left Status: Acute (3) Back pain Status: Chronic (4) Compression fracture Status: Chronic (5) Constipation Status: Acute (6) COPD (chronic obstructive pulmonary disease) Status: Acute (7) Seizure Status: Chronic (8) HTN (hypertension) Status: Acute (9) High cholesterol Status: Acute (10) Vitamin D deficiency Status: Acute (11) Thrombocytopenia Status: Chronic (12) Anemia Status: Acute (13) Dementia Status: Acute - Assessment and Plan (Free Text) Plan: continue current meds IV fluids , Patient refusing to eat , drink and taking meds , as per discussed with nurses Patient may need PEG tube
[2017-05-13] MEDS: Potassium Chl 40 mEq in D5-1/2 1,000 ML IV SCH (13:10)
--- NOTE | 2017-05-13 14:06 | CP.PCM.PN ---
Subjective - Date & Time of Evaluation Date of Evaluation: 05/13/17 Time of Evaluation: 14:00 - Subjective Subjective: Patient eating a little today with assistance. Tolerates dressing change. Does not follow commands. Objective - Vital Signs/Intake and Output Vital Signs (last 24 hours): Temp Pulse Resp BP Pulse Ox 99.0 F 86 20 153/75 H 97 05/13/17 08:06 05/13/17 10:37 05/13/17 08:06 05/13/17 10:37 05/13/17 08:06 Intake and Output: 05/13/17 05/13/17 06:59 18:59 Intake Total 300 800 Balance 300 800 - Medications Medications: Current Medications Acetaminophen (Tylenol 325mg Tab) 650 mg PO Q6 PRN PRN Reason: Pain, Mild (1-3) Aspirin (Aspirin Chewable) 81 mg PO DAILY [facility] Last Admin: 05/10/17 09:29 Dose: Not Given Atorvastatin Calcium (Lipitor) 40 mg PO HS [facility] Last Admin: 05/12/17 21:55 Dose: Not Given Bisacodyl (Dulcolax) 10 mg [place] Q48H PRN PRN Reason: Constipation Calcium/Vitamin D (Oyster Shell Calcium/Vitamin D 500 Mg-200 Iu) 1 tab PO DAILY [facility] Last Admin: 05/13/17 10:34 Dose: 1 tab Cyanocobalamin (Vitamin B12 1000 Mcg/Ml Inj) 1,000 mcg IM Q30D [facility] Divalproex Sodium (Depakote Sprinkles) 125 mg PO DAILY [facility] Last Admin: 05/13/17 10:36 Dose: 125 mg Duloxetine HCl (Cymbalta) 20 mg PO DAILY [facility] Last Admin: 05/13/17 10:36 Dose: 20 mg Enoxaparin Sodium (Lovenox) 40 mg SC Q24H [facility] PRN Reason: Protocol Last Admin: 05/12/17 16:49 Dose: 40 mg Ergocalciferol (Drisdol 50,000 Intl Units Cap) 1 cap PO QWK [facility] Gabapentin (Neurontin) 100 mg PO TID [facility] Last Admin: 05/13/17 12:51 Dose: 100 mg Clindamycin Phosphate (Cleocin In Normal Saline) 600 mg in 50 mls @ 100 mls/hr IVPB Q8H [facility] PRN Reason: Protocol Last Admin: 05/13/17 12:47 Dose: 100 mls/hr Potassium Chloride/Dextrose/Sod Cl (Potassium Chl 40 Meq In D5-1/2ns) 1,000 mls @ 60 mls/hr IV .[id number] [facility] Stop: 05/14/17 11:26 Last Admin: 05/13/17 13:10 Dose: 60 mls/hr Lamotrigine (Lamictal) 25 mg PO TID [facility] Last Admin: 05/13/17 12:51 Dose: 25 mg Magnesium Hydroxide (Milk Of Magnesia) 30 ml PO Q48H PRN PRN Reason: Constipation Meclizine HCl (Antivert) 12.5 mg PO TID [facility] Last Admin: 05/13/17 13:11 Dose: 12.5 mg Nitroglycerin (Nitro-Bid 2% Oint) 1 ea TOP Q6H [facility] Last Admin: 05/13/17 10:37 Dose: 1 ea Oxybutynin Chloride (Ditropan Tab) 5 mg PO TID [facility] Last Admin: 05/13/17 12:51 Dose: 5 mg Pantoprazole Sodium (Protonix Ec Tab) 40 mg PO DAILY [facility] Last Admin: 05/13/17 10:35 Dose: 40 mg Fluticasone/Salmeterol (Advair Diskus 500/50) 1 puff IH Q12 [facility] Last Admin: 05/13/17 10:35 Dose: 1 puff - Labs Labs: 05/13/17 10:35 05/13/17 10:35 PT 13.6 Seconds (9.8-13.1) H 05/11/17 05:45 INR 1.2 (0.9-1.2) 05/11/17 05:45 APTT 29.4 Seconds (25.6-37.1) 05/11/17 05:45 - Extremities Exam Additional comments: left hip: noted serous drainage. Wound cleaned and dressed. No erythema. mildly swollen, heel boots intact +dp ulse Assessment and Plan (1) Displaced intertrochanteric fracture of left femur Assessment & Plan: POD#2 s/p IM nailing -ortho stable -daily dressing changes PT/OT vte proph d/w Dr. Barboza, agrees with above Status: Acute
[2017-05-13] MEDS: Enoxaparin 40 mg Syringe SC SCH (16:42)
[2017-05-14] MEDS: Nitroglycerin 2% Ointment Foilpak UD TOP SCH ×6 (00:06→23:32)
[2017-05-14] MEDS: Clindamycin 600mg/50ml NS 600 MG/50 ML BAG IVPB SCH ×4 (04:00→20:44)
[2017-05-14] MEDS: Potassium Chl 40 mEq in D5-1/2 1,000 ML IV SCH (06:05)
[2017-05-14] MEDS: Fluticasone-Salmeterol 500-50mcg Diskus IH SCH ×2 (09:48→20:50)
[2017-05-14] MEDS: Divalproex 125 mg Sprinkle Capsule PO SCH (09:49)
[2017-05-14] MEDS: Pantoprazole 40 mg EC Tab PO SCH (09:49)
[2017-05-14] MEDS: Calcium-Vit D 500 mg-200 Units Tab UD PO SCH (09:49)
--- NOTE | 2017-05-14 11:20 | CP.PCM.PN ---
Subjective - Date & Time of Evaluation Date of Evaluation: 05/14/17 Time of Evaluation: 11:15 - Subjective Subjective: S- p[t resrting comfortably Objective - Vital Signs/Intake and Output Vital Signs (last 24 hours): Temp Pulse Resp BP Pulse Ox 98.7 F 102 H 20 116/66 97 05/14/17 08:13 05/14/17 08:13 05/14/17 08:13 05/14/17 08:13 05/14/17 08:13 - Medications Medications: Current Medications Acetaminophen (Tylenol 325mg Tab) 650 mg PO Q6 PRN PRN Reason: Pain, Mild (1-3) Aspirin (Aspirin Chewable) 81 mg PO DAILY [facility] Last Admin: 05/10/17 09:29 Dose: Not Given Atorvastatin Calcium (Lipitor) 40 mg PO HS [facility] Last Admin: 05/13/17 22:50 Dose: 40 mg Bisacodyl (Dulcolax) 10 mg [place] Q48H PRN PRN Reason: Constipation Calcium/Vitamin D (Oyster Shell Calcium/Vitamin D 500 Mg-200 Iu) 1 tab PO DAILY [facility] Last Admin: 05/14/17 09:49 Dose: Not Given Cyanocobalamin (Vitamin B12 1000 Mcg/Ml Inj) 1,000 mcg IM Q30D [facility] Divalproex Sodium (Depakote Sprinkles) 125 mg PO DAILY [facility] Last Admin: 05/14/17 09:49 Dose: Not Given Duloxetine HCl (Cymbalta) 20 mg PO DAILY [facility] Last Admin: 05/14/17 09:49 Dose: Not Given Enoxaparin Sodium (Lovenox) 40 mg SC Q24H [facility] PRN Reason: Protocol Last Admin: 05/13/17 16:42 Dose: 40 mg Ergocalciferol (Drisdol 50,000 Intl Units Cap) 1 cap PO QWK [facility] Gabapentin (Neurontin) 100 mg PO TID [facility] Last Admin: 05/14/17 09:49 Dose: Not Given Clindamycin Phosphate (Cleocin In Normal Saline) 600 mg in 50 mls @ 100 mls/hr IVPB Q8H [facility] PRN Reason: Protocol Last Admin: 05/14/17 04:00 Dose: 100 mls/hr Potassium Chloride/Dextrose/Sod Cl (Potassium Chl 40 Meq In D5-1/2ns) 1,000 mls @ 60 mls/hr IV .[id number] [facility] Stop: 05/14/17 11:26 Last Admin: 05/14/17 06:05 Dose: 60 mls/hr Lamotrigine (Lamictal) 25 mg PO TID [facility] Last Admin: 05/14/17 09:49 Dose: Not Given Magnesium Hydroxide (Milk Of Magnesia) 30 ml PO Q48H PRN PRN Reason: Constipation Meclizine HCl (Antivert) 12.5 mg PO TID [facility] Last Admin: 05/14/17 09:48 Dose: Not Given Nitroglycerin (Nitro-Bid 2% Oint) 1 ea TOP Q6H [facility] Last Admin: 05/14/17 06:05 Dose: 1 ea Oxybutynin Chloride (Ditropan Tab) 5 mg PO TID [facility] Last Admin: 05/14/17 09:49 Dose: Not Given Pantoprazole Sodium (Protonix Ec Tab) 40 mg PO DAILY [facility] Last Admin: 05/14/17 09:49 Dose: Not Given Fluticasone/Salmeterol (Advair Diskus 500/50) 1 puff IH Q12 [facility] Last Admin: 05/14/17 09:48 Dose: Not Given - Labs Labs: 05/13/17 10:35 05/13/17 10:35 PT 13.6 Seconds (9.8-13.1) H 05/11/17 05:45 INR 1.2 (0.9-1.2) 05/11/17 05:45 APTT 29.4 Seconds (25.6-37.1) 05/11/17 05:45 - Skin Additional comments: Obj systemic- wnl Musculoskekltal stance/gait- defrred L hip wound benign N/V intact no gross deficits xray- acceptable position of construct Assessment and Plan - Assessment and Plan (Free Text) Assessment: A- s/p orif L intertriochanteric femur fx phuysio- toe touch weigth bearing with walker
--- NOTE | 2017-05-14 13:28 | CP.PCM.PN ---
Subjective - Subjective Subjective: confused , able to talk with short sentences , at times mumbling sounds Objective - Vital Signs/Intake and Output Vital Signs (last 24 hours): Temp Pulse Resp BP Pulse Ox 98.7 F 102 H 20 116/66 97 05/14/17 08:13 05/14/17 12:26 05/14/17 08:13 05/14/17 12:26 05/14/17 08:13 - Medications Medications: Current Medications Acetaminophen (Tylenol 325mg Tab) 650 mg PO Q6 PRN PRN Reason: Pain, Mild (1-3) Aspirin (Aspirin Chewable) 81 mg PO DAILY [facility] Last Admin: 05/10/17 09:29 Dose: Not Given Atorvastatin Calcium (Lipitor) 40 mg PO HS [facility] Last Admin: 05/13/17 22:50 Dose: 40 mg Bisacodyl (Dulcolax) 10 mg [place] Q48H PRN PRN Reason: Constipation Calcium/Vitamin D (Oyster Shell Calcium/Vitamin D 500 Mg-200 Iu) 1 tab PO DAILY [facility] Last Admin: 05/14/17 09:49 Dose: Not Given Cyanocobalamin (Vitamin B12 1000 Mcg/Ml Inj) 1,000 mcg IM Q30D [facility] Divalproex Sodium (Depakote Sprinkles) 125 mg PO DAILY [facility] Last Admin: 05/14/17 09:49 Dose: Not Given Duloxetine HCl (Cymbalta) 20 mg PO DAILY [facility] Last Admin: 05/14/17 09:49 Dose: Not Given Enoxaparin Sodium (Lovenox) 40 mg SC Q24H [facility] PRN Reason: Protocol Last Admin: 05/13/17 16:42 Dose: 40 mg Ergocalciferol (Drisdol 50,000 Intl Units Cap) 1 cap PO QWK [facility] Gabapentin (Neurontin) 100 mg PO TID [facility] Last Admin: 05/14/17 09:49 Dose: Not Given Clindamycin Phosphate (Cleocin In Normal Saline) 600 mg in 50 mls @ 100 mls/hr IVPB Q8H [facility] PRN Reason: Protocol Last Admin: 05/14/17 12:24 Dose: 100 mls/hr Lamotrigine (Lamictal) 25 mg PO TID [facility] Last Admin: 05/14/17 09:49 Dose: Not Given Magnesium Hydroxide (Milk Of Magnesia) 30 ml PO Q48H PRN PRN Reason: Constipation Meclizine HCl (Antivert) 12.5 mg PO TID [facility] Last Admin: 05/14/17 09:48 Dose: Not Given Nitroglycerin (Nitro-Bid 2% Oint) 1 ea TOP Q6H [facility] Last Admin: 05/14/17 12:26 Dose: 1 ea Oxybutynin Chloride (Ditropan Tab) 5 mg PO TID [facility] Last Admin: 05/14/17 09:49 Dose: Not Given Pantoprazole Sodium (Protonix Ec Tab) 40 mg PO DAILY [facility] Last Admin: 05/14/17 09:49 Dose: Not Given Fluticasone/Salmeterol (Advair Diskus 500/50) 1 puff IH Q12 [facility] Last Admin: 05/14/17 09:48 Dose: Not Given - Labs Labs: 05/13/17 10:35 05/13/17 10:35 PT 13.6 Seconds (9.8-13.1) H 05/11/17 05:45 INR 1.2 (0.9-1.2) 05/11/17 05:45 APTT 29.4 Seconds (25.6-37.1) 05/11/17 05:45 - Constitutional Appears: Chronically Ill - Head Exam Head Exam: NORMAL INSPECTION - Eye Exam Eye Exam: PERRL - ENT Exam ENT Exam: Normal Exam - Neck Exam Neck Exam: Normal Inspection - Respiratory Exam Respiratory Exam: Decreased Breath Sounds (at bases) - Cardiovascular Exam Cardiovascular Exam: REGULAR RHYTHM, Murmur (2/6 LSB) - Extremities Exam Extremities Exam: Tenderness (L Hip , surgical incision healing well , neuromuscular status distal good) - Back Exam Back Exam: tenderness (mild) - Neurological Exam Neurological Exam: Awake, CN II-XII Intact Additional comments: confused , generalized weakness - Psychiatric Exam Psychiatric exam: Anxious - Skin Skin Exam: Warm Assessment and Plan (1) Displaced intertrochanteric fracture of left femur Status: Acute (2) Hip fracture, left Status: Acute (3) Back pain Status: Chronic (4) Compression fracture Status: Chronic (5) Constipation Status: Acute (6) COPD (chronic obstructive pulmonary disease) Status: Acute (7) Seizure Status: Chronic (8) HTN (hypertension) Status: Acute (9) High cholesterol Status: Acute (10) Vitamin D deficiency Status: Resolved (11) Thrombocytopenia Status: Chronic (12) Anemia Status: Acute (13) Dementia Status: Acute - Assessment and Plan (Free Text) Plan: doing well post op ORIF L Hip ,Platelet 142 , Patient continue refusing po fluids , meals intake annd po meds , on IVF , K replacement , at times with difficulty taking Lamictal and Depakote , GI consult for PEG , Duragesic Patch for pain control.
--- NOTE | 2017-05-14 15:38 | OP ---
PROCEDURE DATE: 05/11/2017 PREOPERATIVE DIAGNOSIS: Displaced comminuted intertrochanteric, probably pathologic, left femur fracture. POSTOPERATIVE DIAGNOSIS: Displaced comminuted intertrochanteric, probably pathologic, left femur fracture. OPERATIVE FINDINGS: Displaced comminuted left intertrochanteric femur fracture. SURGEON: Hector Barboza MD. CONTACT LENS ASSISTANT: Isabela Fernández, certified registered nursing produce assistant. TYPE OF ANESTHESIA: General and spinal anesthesia. ANESTHESIA ADMINISTERED BY: Eder Mauro MD. OPERATION PERFORMED: 1. Open reduction and internal fixation displaced comminuted intertrochanteric left hip fracture with intramedullary interlocking nail. 2. Positioning of fluoroscope and interpretation of video images. 3. Closed reduction. SPECIMENS REMOVED: None. ESTIMATED BLOOD LOSS: Approximately 100 mL. BLOOD PRODUCTS GIVEN: None. POSTOPERATIVE CONDITION: Stable. TIME OF SURGERY: Time in the room 1135, incision time 1535. OPERATIVE INDICATIONS: Donya Laureano presents as an 81-year-old woman who sustained a fall in the nursing facility sustaining an intertrochanteric fracture of the left hip. The patient presents with pain and restricted range of motion. The patient presents to the ER, medical stabilization was accomplished, and cardiologic clearance was accomplished. The patient presents now at this point in time with pain, deformity, and restricted range of motion. Informed consent had been obtained from the patient and from her son. DESCRIPTION OF PROCEDURE: After having obtained informed consent; after the satisfactory induction of the anesthetic by Dr. Mauro; after having identified side, site and procedure and a critical pause/time-out, the patient identified as Donya Laureano in the supine position with all bony prominences well padded. The left lower extremity was prepped and free draped in usual fashion for lower extremity surgery. The patient was placed in the traction device and traction was offered in traction and internal rotation. The well leg was carefully positioned. Under the surgeon's direction at this point in time, the fluoroscope was positioned, video images were generated, and therapeutic decisions were made therefrom. Closed reduction of the fracture was accomplished and found to be acceptable. The left lower extremity at this point in time was prepped and free draped in usual fashion for interlocking, intramedullary nailing of an intertrochanteric left hip fracture. An incision was described at the base of the trochanter and deviating a bit posteriorly. Skin incision was carried down through the skin and subcutaneous tissue. The modified Ekaterina-Atiya retractor was placed. The gluteus tendon was identified. A small portion of the gluteus tendon was incised. The greater trochanter was identified and the entry point was found. Verification of position was offered on AP and lateral image intensification views. The comminution was terrible. The pathologic nature of the fracture at very least was osteopenic. A small amount of reaming was accomplished to open the canal. The trochanteric entry point having been opened. Further reaming was unnecessary because of the poor nature of the bone and the nail was introduced. The nail was introduced and progression was noted on AP and lateral image intensification views. At this point in time, attention was turned to the proximal interlocking triflange nail. Positioning of the guidewire was attempted two to three times before the appropriate position was found. The appropriate position was found. Sounding was accomplished to approximately 85 mm and the TFN nail was introduced and skin incision having been accomplished, the entry port was placed lateral to the shaft of the femur and the TFN nail was introduced and found to be in acceptable position on AP and lateral image intensification views. That was removed. At this point in time, the static interlocking mode was accomplished and the static distal locking screws placed. The three-tube cannula was introduced. Drilling was accomplished, sounding was accomplished, and the appropriate size screw was placed. The position was found to be acceptable. At this point in time, the proximal housing of the intertrochanteric introduction device was removed. The locking cap was placed in the nail. The wound was thoroughly irrigated. AP and lateral image intensification views were found to be acceptable. The wound was thoroughly irrigated. Closure of the abductor musculature was with interrupted Vicryl sutures followed by #2 Quill, 0 Quill for subcutaneous, and vickie for skin. The distal incision was closed with interrupted Vicryl and vickie. Compression dressing was applied. Verification of position was again offered on AP and lateral image intensification views. The patient was transferred from the operating table to the stretcher and to the ICU in stable condition. Hector Barboza MD [facility] # [id number]
[2017-05-14] MEDS: Enoxaparin 40 mg Syringe SC SCH (17:05)
--- NOTE | 2017-05-14 23:16 | CP.PCM.PN ---
Subjective - Date & Time of Evaluation Date of Evaluation: 05/14/17 Time of Evaluation: 18:00 - Subjective Subjective: Appears comfortable Objective - Vital Signs/Intake and Output Vital Signs (last 24 hours): Temp Pulse Resp BP Pulse Ox 97.6 F 98 H 20 136/74 97 05/14/17 15:38 05/14/17 17:05 05/14/17 15:38 05/14/17 17:05 05/14/17 15:38 - Medications Medications: Current Medications Acetaminophen (Tylenol 325mg Tab) 650 mg PO Q6 PRN PRN Reason: Pain, Mild (1-3) Aspirin (Aspirin Chewable) 81 mg PO DAILY [facility] Last Admin: 05/10/17 09:29 Dose: Not Given Atorvastatin Calcium (Lipitor) 40 mg PO HS [facility] Last Admin: 05/14/17 21:32 Dose: Not Given Bisacodyl (Dulcolax) 10 mg [place] Q48H PRN PRN Reason: Constipation Calcium/Vitamin D (Oyster Shell Calcium/Vitamin D 500 Mg-200 Iu) 1 tab PO DAILY [facility] Last Admin: 05/14/17 09:49 Dose: Not Given Cyanocobalamin (Vitamin B12 1000 Mcg/Ml Inj) 1,000 mcg IM Q30D [facility] Divalproex Sodium (Depakote Sprinkles) 125 mg PO DAILY [facility] Last Admin: 05/14/17 09:49 Dose: Not Given Duloxetine HCl (Cymbalta) 20 mg PO DAILY [facility] Last Admin: 05/14/17 09:49 Dose: Not Given Enoxaparin Sodium (Lovenox) 40 mg SC Q24H [facility] PRN Reason: Protocol Last Admin: 05/14/17 17:05 Dose: 40 mg Ergocalciferol (Drisdol 50,000 Intl Units Cap) 1 cap PO QWK [facility] Fentanyl (Duragesic) 1 patch TD Q3D [facility] PRN Reason: Protocol Last Admin: 05/14/17 13:46 Dose: 1 patch Gabapentin (Neurontin) 100 mg PO TID [facility] Last Admin: 05/14/17 17:07 Dose: Not Given Clindamycin Phosphate (Cleocin In Normal Saline) 600 mg in 50 mls @ 100 mls/hr IVPB Q8H [facility] PRN Reason: Protocol Last Admin: 05/14/17 20:44 Dose: 100 mls/hr Lamotrigine (Lamictal) 25 mg PO TID [facility] Last Admin: 05/14/17 17:06 Dose: Not Given Magnesium Hydroxide (Milk Of Magnesia) 30 ml PO Q48H PRN PRN Reason: Constipation Meclizine HCl (Antivert) 12.5 mg PO TID [facility] Last Admin: 05/14/17 17:07 Dose: Not Given Nitroglycerin (Nitro-Bid 2% Oint) 1 ea TOP Q6H [facility] Last Admin: 05/14/17 17:05 Dose: 1 ea Oxybutynin Chloride (Ditropan Tab) 5 mg PO TID [facility] Last Admin: 05/14/17 17:07 Dose: Not Given Pantoprazole Sodium (Protonix Ec Tab) 40 mg PO DAILY [facility] Last Admin: 05/14/17 09:49 Dose: Not Given Fluticasone/Salmeterol (Advair Diskus 500/50) 1 puff IH Q12 [facility] Last Admin: 05/14/17 20:50 Dose: Not Given - Labs Labs: 05/13/17 10:35 05/13/17 10:35 PT 13.6 Seconds (9.8-13.1) H 05/11/17 05:45 INR 1.2 (0.9-1.2) 05/11/17 05:45 APTT 29.4 Seconds (25.6-37.1) 05/11/17 05:45 - Head Exam Head Exam: ATRAUMATIC - Eye Exam Eye Exam: Normal appearance - ENT Exam ENT Exam: Mucous Membranes Dry - Respiratory Exam Respiratory Exam: NORMAL BREATHING PATTERN - Cardiovascular Exam Cardiovascular Exam: +S1, +S2 - GI/Abdominal Exam GI & Abdominal Exam: Normal Bowel Sounds Assessment and Plan (1) Anemia Assessment & Plan: surgical blood loss Status: Acute (2) Thrombocytopenia Assessment & Plan: resolved Status: Chronic
--- NOTE | 2017-05-14 23:18 | CP.PCM.PN ---
Subjective - Date & Time of Evaluation Date of Evaluation: 05/13/17 Time of Evaluation: 11:00 - Subjective Subjective: Appears comfortable Objective - Vital Signs/Intake and Output Vital Signs (last 24 hours): Temp Pulse Resp BP Pulse Ox 97.6 F 98 H 20 136/74 97 05/14/17 15:38 05/14/17 17:05 05/14/17 15:38 05/14/17 17:05 05/14/17 15:38 - Medications Medications: Current Medications Acetaminophen (Tylenol 325mg Tab) 650 mg PO Q6 PRN PRN Reason: Pain, Mild (1-3) Aspirin (Aspirin Chewable) 81 mg PO DAILY [facility] Last Admin: 05/10/17 09:29 Dose: Not Given Atorvastatin Calcium (Lipitor) 40 mg PO HS [facility] Last Admin: 05/14/17 21:32 Dose: Not Given Bisacodyl (Dulcolax) 10 mg [place] Q48H PRN PRN Reason: Constipation Calcium/Vitamin D (Oyster Shell Calcium/Vitamin D 500 Mg-200 Iu) 1 tab PO DAILY [facility] Last Admin: 05/14/17 09:49 Dose: Not Given Cyanocobalamin (Vitamin B12 1000 Mcg/Ml Inj) 1,000 mcg IM Q30D [facility] Divalproex Sodium (Depakote Sprinkles) 125 mg PO DAILY [facility] Last Admin: 05/14/17 09:49 Dose: Not Given Duloxetine HCl (Cymbalta) 20 mg PO DAILY [facility] Last Admin: 05/14/17 09:49 Dose: Not Given Enoxaparin Sodium (Lovenox) 40 mg SC Q24H [facility] PRN Reason: Protocol Last Admin: 05/14/17 17:05 Dose: 40 mg Ergocalciferol (Drisdol 50,000 Intl Units Cap) 1 cap PO QWK [facility] Fentanyl (Duragesic) 1 patch TD Q3D [facility] PRN Reason: Protocol Last Admin: 05/14/17 13:46 Dose: 1 patch Gabapentin (Neurontin) 100 mg PO TID [facility] Last Admin: 05/14/17 17:07 Dose: Not Given Clindamycin Phosphate (Cleocin In Normal Saline) 600 mg in 50 mls @ 100 mls/hr IVPB Q8H [facility] PRN Reason: Protocol Last Admin: 05/14/17 20:44 Dose: 100 mls/hr Lamotrigine (Lamictal) 25 mg PO TID [facility] Last Admin: 05/14/17 17:06 Dose: Not Given Magnesium Hydroxide (Milk Of Magnesia) 30 ml PO Q48H PRN PRN Reason: Constipation Meclizine HCl (Antivert) 12.5 mg PO TID [facility] Last Admin: 05/14/17 17:07 Dose: Not Given Nitroglycerin (Nitro-Bid 2% Oint) 1 ea TOP Q6H [facility] Last Admin: 05/14/17 17:05 Dose: 1 ea Oxybutynin Chloride (Ditropan Tab) 5 mg PO TID [facility] Last Admin: 05/14/17 17:07 Dose: Not Given Pantoprazole Sodium (Protonix Ec Tab) 40 mg PO DAILY [facility] Last Admin: 05/14/17 09:49 Dose: Not Given Fluticasone/Salmeterol (Advair Diskus 500/50) 1 puff IH Q12 [facility] Last Admin: 05/14/17 20:50 Dose: Not Given - Labs Labs: 05/13/17 10:35 05/13/17 10:35 PT 13.6 Seconds (9.8-13.1) H 05/11/17 05:45 INR 1.2 (0.9-1.2) 05/11/17 05:45 APTT 29.4 Seconds (25.6-37.1) 05/11/17 05:45 - Head Exam Head Exam: ATRAUMATIC - Eye Exam Eye Exam: Normal appearance - ENT Exam ENT Exam: Mucous Membranes Dry - Respiratory Exam Respiratory Exam: NORMAL BREATHING PATTERN - Cardiovascular Exam Cardiovascular Exam: +S1, +S2 - GI/Abdominal Exam GI & Abdominal Exam: Normal Bowel Sounds Assessment and Plan (1) Anemia Assessment & Plan: surgical blood loss Status: Acute (2) Thrombocytopenia Assessment & Plan: resolved Status: Chronic
[2017-05-15] MEDS: Clindamycin 600mg/50ml NS 600 MG/50 ML BAG IVPB SCH ×3 (03:45→20:25)
[2017-05-15] MEDS: Nitroglycerin 2% Ointment Foilpak UD TOP SCH ×4 (06:29→22:58)
[2017-05-15 07:54] LABS: BLOOD UREA NITROGEN 9 mg/dl (7-17); CALCIUM 8.7 mg/dL (8.4-10.2); GFR AFRICAN-AMERICAN > 60; GFR NON-AFRICAN AMERICAN > 60
[2017-05-15] MEDS: Fluticasone-Salmeterol 500-50mcg Diskus IH SCH ×2 (08:41→21:14)
[2017-05-15] MEDS: Divalproex 125 mg Sprinkle Capsule PO SCH ×2 (08:42→09:04)
[2017-05-15] MEDS: Pantoprazole 40 mg EC Tab PO SCH (08:43)
[2017-05-15] MEDS: Calcium-Vit D 500 mg-200 Units Tab UD PO SCH (08:43)
--- NOTE | 2017-05-15 12:10 | CP.PCM.PN ---
Subjective - Subjective Subjective: confused , at times talk with short sentences , at times mumbling sounds Objective - Vital Signs/Intake and Output Vital Signs (last 24 hours): Temp Pulse Resp BP Pulse Ox 97.3 F L 94 H 20 129/63 96 05/15/17 07:35 05/15/17 07:35 05/15/17 07:35 05/15/17 07:35 05/15/17 07:35 - Medications Medications: Current Medications Acetaminophen (Tylenol 325mg Tab) 650 mg PO Q6 PRN PRN Reason: Pain, Mild (1-3) Aspirin (Aspirin Chewable) 81 mg PO DAILY [facility] Last Admin: 05/10/17 09:29 Dose: Not Given Atorvastatin Calcium (Lipitor) 40 mg PO HS [facility] Last Admin: 05/14/17 21:32 Dose: Not Given Bisacodyl (Dulcolax) 10 mg [place] Q48H PRN PRN Reason: Constipation Calcium/Vitamin D (Oyster Shell Calcium/Vitamin D 500 Mg-200 Iu) 1 tab PO DAILY [facility] Last Admin: 05/15/17 08:43 Dose: Not Given Cyanocobalamin (Vitamin B12 1000 Mcg/Ml Inj) 1,000 mcg IM Q30D [facility] Divalproex Sodium (Depakote Sprinkles) 125 mg PO DAILY [facility] Last Admin: 05/15/17 09:04 Dose: 125 mg Duloxetine HCl (Cymbalta) 20 mg PO DAILY [facility] Last Admin: 05/15/17 08:42 Dose: Not Given Enoxaparin Sodium (Lovenox) 40 mg SC Q24H [facility] PRN Reason: Protocol Last Admin: 05/14/17 17:05 Dose: 40 mg Ergocalciferol (Drisdol 50,000 Intl Units Cap) 1 cap PO QWK [facility] Fentanyl (Duragesic) 1 patch TD Q3D [facility] PRN Reason: Protocol Last Admin: 05/14/17 13:46 Dose: 1 patch Gabapentin (Neurontin) 100 mg PO TID [facility] Last Admin: 05/15/17 08:43 Dose: Not Given Clindamycin Phosphate (Cleocin In Normal Saline) 600 mg in 50 mls @ 100 mls/hr IVPB Q8H [facility] PRN Reason: Protocol Last Admin: 05/15/17 03:45 Dose: 100 mls/hr Potassium Chloride/Dextrose/Sod Cl (Potassium Chl 40 Meq In D5-1/2ns) 1,000 mls @ 60 mls/hr IV .[id number] [facility] Stop: 05/16/17 09:44 Lamotrigine (Lamictal) 25 mg PO TID [facility] Last Admin: 05/15/17 09:05 Dose: 25 mg Magnesium Hydroxide (Milk Of Magnesia) 30 ml PO Q48H PRN PRN Reason: Constipation Meclizine HCl (Antivert) 12.5 mg PO TID [facility] Last Admin: 05/15/17 08:41 Dose: Not Given Nitroglycerin (Nitro-Bid 2% Oint) 1 ea TOP Q6H [facility] Last Admin: 05/15/17 06:29 Dose: 1 ea Oxybutynin Chloride (Ditropan Tab) 5 mg PO TID [facility] Last Admin: 05/15/17 08:42 Dose: Not Given Pantoprazole Sodium (Protonix Inj) 40 mg IVP DAILY [facility] Last Admin: 05/15/17 10:21 Dose: 40 mg Fluticasone/Salmeterol (Advair Diskus 500/50) 1 puff IH Q12 [facility] Last Admin: 05/15/17 08:41 Dose: Not Given - Labs Labs: 05/13/17 10:35 05/15/17 06:30 PT 13.6 Seconds (9.8-13.1) H 05/11/17 05:45 INR 1.2 (0.9-1.2) 05/11/17 05:45 APTT 29.4 Seconds (25.6-37.1) 05/11/17 05:45 - Constitutional Appears: Chronically Ill - Head Exam Head Exam: NORMAL INSPECTION - Eye Exam Eye Exam: PERRL - ENT Exam ENT Exam: Normal Exam - Neck Exam Neck Exam: Normal Inspection - Respiratory Exam Respiratory Exam: Decreased Breath Sounds (at bases) - Cardiovascular Exam Cardiovascular Exam: REGULAR RHYTHM, Murmur (2/6 LSB) - GI/Abdominal Exam GI & Abdominal Exam: Soft, Normal Bowel Sounds - Extremities Exam Extremities Exam: Tenderness (L Hip , dressing in place , tenderness , neuromuscular status distal good) - Back Exam Back Exam: tenderness (mild) - Neurological Exam Neurological Exam: Awake, CN II-XII Intact Additional comments: generalized weakness - Psychiatric Exam Psychiatric exam: Anxious - Skin Skin Exam: Warm Assessment and Plan (1) Displaced intertrochanteric fracture of left femur Status: Acute (2) Hip fracture, left Status: Acute (3) Back pain Status: Chronic (4) Compression fracture Status: Chronic (5) Constipation Status: Acute (6) COPD (chronic obstructive pulmonary disease) Status: Acute (7) Seizure Status: Chronic (8) HTN (hypertension) Status: Acute (9) High cholesterol Status: Acute (10) Vitamin D deficiency Status: Resolved (11) Thrombocytopenia Status: Chronic (12) Anemia Status: Acute (13) Dementia Status: Chronic - Assessment and Plan (Free Text) Plan: continue refusing po flluids , meals , meds , on IVF , K replacement , GI consult for PEG.
[2017-05-15] MEDS: Potassium Chl 40 mEq in D5-1/2 1,000 ML IV SCH (13:00)
[2017-05-15 13:03] LABS: BASO # 0.1 K/uL (0.0-0.2); BASO % 0.9 % (0.0-2.0); EOS # 0.3 K/uL (0.0-0.7); EOS % 5.9 % (0.0-4.0); HEMOGLOBIN 9.3 g/dL (12.0-16.0); LYMPH # 0.9 K/uL (1.0-4.3); LYMPH % 15.4 % (20.0-40.0); MEAN CELL VOLUME 86.2 fl (81.0-99.0); MEAN CORPUSCULAR HEMOGLOBIN 28.6 pg (27.0-31.0); MEAN CORPUSCULAR HGB CONC 33.1 g/dL (33.0-37.0); MEAN PLATELET VOLUME 9.9 fl (7.2-11.7); MONO # 0.8 K/uL (0.0-0.8); MONO % 13.4 % (0.0-10.0); NEUT # 3.6 K/uL (1.8-7.0); NEUT % 64.4 % (50.0-75.0); NRBC % 0.1 % (0.0-0.0); RBC 3.26 Mil/uL (3.80-5.20); RED CELL DISTRIBUTION WIDTH 14.1 % (11.5-14.5); WHITE BLOOD COUNT 5.6 K/uL (4.8-10.8)
[2017-05-15] MEDS: Enoxaparin 40 mg Syringe SC SCH (17:35)
--- NOTE | 2017-05-15 20:13 | CP.PCM.PN ---
Subjective - Date & Time of Evaluation Date of Evaluation: 05/15/17 Time of Evaluation: 18:00 - Subjective Subjective: Appears comfortable Objective - Vital Signs/Intake and Output Vital Signs (last 24 hours): Temp Pulse Resp BP Pulse Ox 98.6 F 74 20 158/75 H 97 05/15/17 16:39 05/15/17 16:39 05/15/17 16:39 05/15/17 17:32 05/15/17 16:39 - Medications Medications: Current Medications Acetaminophen (Tylenol 325mg Tab) 650 mg PO Q6 PRN PRN Reason: Pain, Mild (1-3) Aspirin (Aspirin Chewable) 81 mg PO DAILY [facility] Last Admin: 05/10/17 09:29 Dose: Not Given Atorvastatin Calcium (Lipitor) 40 mg PO HS [facility] Last Admin: 05/14/17 21:32 Dose: Not Given Bisacodyl (Dulcolax) 10 mg [place] Q48H PRN PRN Reason: Constipation Calcium/Vitamin D (Oyster Shell Calcium/Vitamin D 500 Mg-200 Iu) 1 tab PO DAILY [facility] Last Admin: 05/15/17 08:43 Dose: Not Given Cyanocobalamin (Vitamin B12 1000 Mcg/Ml Inj) 1,000 mcg IM Q30D [facility] Divalproex Sodium (Depakote Sprinkles) 125 mg PO DAILY [facility] Last Admin: 05/15/17 09:04 Dose: 125 mg Duloxetine HCl (Cymbalta) 20 mg PO DAILY [facility] Last Admin: 05/15/17 08:42 Dose: Not Given Ergocalciferol (Drisdol 50,000 Intl Units Cap) 1 cap PO QWK [facility] Fentanyl (Duragesic) 1 patch TD Q3D [facility] PRN Reason: Protocol Last Admin: 05/14/17 13:46 Dose: 1 patch Gabapentin (Neurontin) 100 mg PO TID [facility] Last Admin: 05/15/17 12:58 Dose: 100 mg Clindamycin Phosphate (Cleocin In Normal Saline) 600 mg in 50 mls @ 100 mls/hr IVPB Q8H [facility] PRN Reason: Protocol Last Admin: 05/15/17 12:56 Dose: 100 mls/hr Potassium Chloride/Dextrose/Sod Cl (Potassium Chl 40 Meq In D5-1/2ns) 1,000 mls @ 60 mls/hr IV .[id number] [facility] Stop: 05/16/17 09:44 Last Admin: 05/15/17 13:00 Dose: 60 mls/hr Lamotrigine (Lamictal) 25 mg PO TID [facility] Last Admin: 05/15/17 12:57 Dose: 25 mg Magnesium Hydroxide (Milk Of Magnesia) 30 ml PO Q48H PRN PRN Reason: Constipation Meclizine HCl (Antivert) 12.5 mg PO TID [facility] Last Admin: 05/15/17 12:58 Dose: 12.5 mg Nitroglycerin (Nitro-Bid 2% Oint) 1 ea TOP Q6H [facility] Last Admin: 05/15/17 17:32 Dose: 1 ea Oxybutynin Chloride (Ditropan Tab) 5 mg PO TID [facility] Last Admin: 05/15/17 12:59 Dose: 5 mg Pantoprazole Sodium (Protonix Inj) 40 mg IVP DAILY [facility] Last Admin: 05/15/17 10:21 Dose: 40 mg Fluticasone/Salmeterol (Advair Diskus 500/50) 1 puff IH Q12 [facility] Last Admin: 05/15/17 08:41 Dose: Not Given - Labs Labs: 05/15/17 06:30 05/15/17 06:30 PT 13.6 Seconds (9.8-13.1) H 05/11/17 05:45 INR 1.2 (0.9-1.2) 05/11/17 05:45 APTT 29.4 Seconds (25.6-37.1) 05/11/17 05:45 - Head Exam Head Exam: ATRAUMATIC - Eye Exam Eye Exam: Normal appearance - ENT Exam ENT Exam: Mucous Membranes Dry - Respiratory Exam Respiratory Exam: NORMAL BREATHING PATTERN - Cardiovascular Exam Cardiovascular Exam: +S1, +S2 Assessment and Plan (1) Anemia Assessment & Plan: H/H stable surgical blood loss Status: Acute (2) Thrombocytopenia Assessment & Plan: resolved Status: Chronic
[2017-05-16] MEDS: Potassium Chl 40 mEq in D5-1/2 1,000 ML IV SCH ×2 (02:00→08:55)
[2017-05-16] MEDS: Clindamycin 600mg/50ml NS 600 MG/50 ML BAG IVPB SCH ×3 (04:08→20:56)
[2017-05-16] MEDS: Nitroglycerin 2% Ointment Foilpak UD TOP SCH ×3 (04:20→17:35)
[2017-05-16] MEDS: Divalproex 125 mg Sprinkle Capsule PO SCH (08:34)
[2017-05-16] MEDS: Fluticasone-Salmeterol 500-50mcg Diskus IH SCH ×2 (08:35→21:02)
[2017-05-16] MEDS: Calcium-Vit D 500 mg-200 Units Tab UD PO SCH (08:36)
[2017-05-16] MEDS: Enoxaparin 40 mg Syringe SC SCH (09:25)
--- NOTE | 2017-05-16 10:18 | CP.PCM.PN ---
Subjective - Date & Time of Evaluation Date of Evaluation: 05/16/17 Time of Evaluation: 10:15 - Subjective Subjective: Patient much more verbal today. Complains of painduring dressing change. Objective - Vital Signs/Intake and Output Vital Signs (last 24 hours): Temp Pulse Resp BP Pulse Ox 98.4 F 74 20 127/75 98 05/16/17 07:57 05/16/17 07:57 05/16/17 07:57 05/16/17 07:57 05/16/17 07:57 - Medications Medications: Current Medications Acetaminophen (Tylenol 325mg Tab) 650 mg PO Q6 PRN PRN Reason: Pain, Mild (1-3) Last Admin: 05/16/17 06:51 Dose: 650 mg Aspirin (Aspirin Chewable) 81 mg PO DAILY [facility] Last Admin: 05/10/17 09:29 Dose: Not Given Atorvastatin Calcium (Lipitor) 40 mg PO HS [facility] Last Admin: 05/15/17 21:15 Dose: 40 mg Bisacodyl (Dulcolax) 10 mg SC Q48H PRN PRN Reason: Constipation Calcium/Vitamin D (Oyster Shell Calcium/Vitamin D 500 Mg-200 Iu) 1 tab PO DAILY [facility] Last Admin: 05/16/17 08:36 Dose: 1 tab Cyanocobalamin (Vitamin B12 1000 Mcg/Ml Inj) 1,000 mcg IM Q30D [facility] Divalproex Sodium (Depakote Sprinkles) 125 mg PO DAILY [facility] Last Admin: 05/16/17 08:34 Dose: 125 mg Duloxetine HCl (Cymbalta) 20 mg PO DAILY [facility] Last Admin: 05/16/17 08:34 Dose: 20 mg Enoxaparin Sodium (Lovenox) 40 mg SC DAILY [facility] PRN Reason: Protocol Last Admin: 05/16/17 09:25 Dose: 40 mg Ergocalciferol (Drisdol 50,000 Intl Units Cap) 1 cap PO QWK [facility] Fentanyl (Duragesic) 1 patch TD Q3D [facility] PRN Reason: Protocol Last Admin: 05/14/17 13:46 Dose: 1 patch Gabapentin (Neurontin) 100 mg PO TID [facility] Last Admin: 05/16/17 08:36 Dose: Not Given Lamotrigine (Lamictal) 25 mg PO TID [facility] Last Admin: 05/16/17 08:34 Dose: 25 mg Magnesium Hydroxide (Milk Of Magnesia) 30 ml PO Q48H PRN PRN Reason: Constipation Meclizine HCl (Antivert) 12.5 mg PO TID [facility] Last Admin: 05/16/17 08:34 Dose: 12.5 mg Nitroglycerin (Nitro-Bid 2% Oint) 1 ea TOP Q6H [facility] Last Admin: 05/16/17 04:20 Dose: 1 ea Oxybutynin Chloride (Ditropan Tab) 5 mg PO TID [facility] Last Admin: 05/16/17 08:34 Dose: 5 mg Pantoprazole Sodium (Protonix Inj) 40 mg IVP DAILY [facility] Last Admin: 05/16/17 08:36 Dose: 40 mg Fluticasone/Salmeterol (Advair Diskus 500/50) 1 puff IH Q12 [facility] Last Admin: 05/16/17 08:35 Dose: 1 puff - Labs Labs: 05/15/17 06:30 05/15/17 06:30 PT 13.6 Seconds (9.8-13.1) H 05/11/17 05:45 INR 1.2 (0.9-1.2) 05/11/17 05:45 APTT 29.4 Seconds (25.6-37.1) 05/11/17 05:45 - Extremities Exam Additional comments: Left hip: small amount serous drainage. Minimal incisional erythema. Calves soft NT neg homans +RoM toes during palpation, +DP/pulse Assessment and Plan (1) Displaced intertrochanteric fracture of left femur Assessment & Plan: POD#5 s/p left hip ORIF -daily betadyne wet to dry -will continue clindamycin, afeb, no leukocytosis -PT/OT -d/c planning -d/w Dr. Barboza, agrees with above Status: Acute
[2017-05-16 11:39] LABS: HEMOGLOBIN 9.6 g/dL (12.0-16.0); MEAN CELL VOLUME 85.2 fl (81.0-99.0); MEAN CORPUSCULAR HEMOGLOBIN 29.1 pg (27.0-31.0); MEAN CORPUSCULAR HGB CONC 34.2 g/dL (33.0-37.0); RBC 3.3 Mil/uL (3.80-5.20); RED CELL DISTRIBUTION WIDTH 14.2 % (11.5-14.5); WHITE BLOOD COUNT 8.4 K/uL (4.8-10.8)
[2017-05-16 12:04] LABS: BLOOD UREA NITROGEN 5 mg/dl (7-17); CALCIUM 8.6 mg/dL (8.4-10.2); GFR AFRICAN-AMERICAN > 60; GFR NON-AFRICAN AMERICAN > 60
--- NOTE | 2017-05-16 12:46 | RAD ---
HISTORY: ab pain COMPARISON: No prior. FINDINGS: BOWEL: There is a nonobstructive bowel gas pattern appreciated however rectal fecal impaction is mild and there is prominent fecal loading of the right hemicolon. No large free intrarenal gas collections identified and instill note is made of post vertebroplasty changes at the inferior lumbar spine. Diffuse osteopenia suggests osteoporosis. Patient is also seen status post open reduction internal fixation of proximal femoral fracture. Multiple right greater the left buttocks injection granulomata are seen. BONES: No definitive acute displaced fracture identified at this time. OTHER FINDINGS: None. IMPRESSION: Nonobstructive bowel gas pattern evident. No gross free intrarenal gas identified. Rectal fecal impaction appears are mild and there is prominent fecal loading of the right hemicolon. Other findings are as discussed above.
--- NOTE | 2017-05-16 16:35 | US ---
PROCEDURE: Bilateral lower extremity venous duplex Doppler. HISTORY: R/O DVT COMPARISON: None available. TECHNIQUE: Bilateral common femoral, superficial femoral, popliteal and posterior tibial veins were evaluated. Flow was assessed with color Doppler, compressibility, assessment of phasic flow and augmentation response. FINDINGS: COMMON FEMORAL VEIN: Right CFV: Adherent thrombus right common femoral vein, with partial compressibility likely chronic thrombus. Left CFV: Unremarkable. SUPERFICIAL FEMORAL VEIN: Right SFV: Unremarkable. Left SFV: Unremarkable. POPLITEAL VEIN: Right Popliteal: Unremarkable. Left Popliteal: Unremarkable. POSTERIOR TIBIAL VEIN: Right PTV: Unremarkable. Left PTV: Unremarkable. OTHER FINDINGS: None. IMPRESSION: Focal thrombus partially occluding the right common femoral vein. No evidence of deep venous thrombosis.
--- NOTE | 2017-05-16 17:55 | CP.PCM.PN ---
Subjective - Date & Time of Evaluation Date of Evaluation: 05/16/17 Time of Evaluation: 09:10 - Subjective Subjective: S/P ORIF L Hip Pt awake, confused, pain L hip Objective - Vital Signs/Intake and Output Vital Signs (last 24 hours): Temp Pulse Resp BP Pulse Ox 98.4 F 93 H 20 144/73 96 05/16/17 16:16 05/16/17 16:16 05/16/17 16:16 05/16/17 16:16 05/16/17 16:16 - Medications Medications: Current Medications Acetaminophen (Tylenol 325mg Tab) 650 mg PO Q6 PRN PRN Reason: Pain, Mild (1-3) Last Admin: 05/16/17 06:51 Dose: 650 mg Aspirin (Aspirin Chewable) 81 mg PO DAILY [facility] Last Admin: 05/10/17 09:29 Dose: Not Given Atorvastatin Calcium (Lipitor) 40 mg PO HS [facility] Last Admin: 05/15/17 21:15 Dose: 40 mg Bisacodyl (Dulcolax) 10 mg [place] Q48H PRN PRN Reason: Constipation Calcium/Vitamin D (Oyster Shell Calcium/Vitamin D 500 Mg-200 Iu) 1 tab PO DAILY [facility] Last Admin: 05/16/17 08:36 Dose: 1 tab Cyanocobalamin (Vitamin B12 1000 Mcg/Ml Inj) 1,000 mcg IM Q30D [facility] Divalproex Sodium (Depakote Sprinkles) 125 mg PO DAILY [facility] Last Admin: 05/16/17 08:34 Dose: 125 mg Duloxetine HCl (Cymbalta) 20 mg PO DAILY [facility] Last Admin: 05/16/17 08:34 Dose: 20 mg Enoxaparin Sodium (Lovenox) 40 mg SC DAILY [facility] PRN Reason: Protocol Last Admin: 05/16/17 09:25 Dose: 40 mg Ergocalciferol (Drisdol 50,000 Intl Units Cap) 1 cap PO QWK [facility] Fentanyl (Duragesic) 1 patch TD Q3D [facility] PRN Reason: Protocol Last Admin: 05/14/17 13:46 Dose: 1 patch Gabapentin (Neurontin) 100 mg PO TID [facility] Last Admin: 05/16/17 08:36 Dose: Not Given Clindamycin Phosphate (Cleocin In Normal Saline) 600 mg in 50 mls @ 50 mls/hr IVPB Q8H [facility] PRN Reason: Protocol Last Admin: 05/16/17 12:35 Dose: 50 mls/hr Lamotrigine (Lamictal) 25 mg PO TID [facility] Last Admin: 05/16/17 08:34 Dose: 25 mg Magnesium Hydroxide (Milk Of Magnesia) 30 ml PO Q48H PRN PRN Reason: Constipation Meclizine HCl (Antivert) 12.5 mg PO TID [facility] Last Admin: 05/16/17 08:34 Dose: 12.5 mg Nitroglycerin (Nitro-Bid 2% Oint) 1 ea TOP Q6H [facility] Last Admin: 05/16/17 17:35 Dose: 1 ea Oxybutynin Chloride (Ditropan Tab) 5 mg PO TID [facility] Last Admin: 05/16/17 08:34 Dose: 5 mg Pantoprazole Sodium (Protonix Inj) 40 mg IVP DAILY [facility] Last Admin: 05/16/17 08:36 Dose: 40 mg Fluticasone/Salmeterol (Advair Diskus 500/50) 1 puff IH Q12 [facility] Last Admin: 05/16/17 08:35 Dose: 1 puff - Labs Labs: 05/16/17 11:35 05/16/17 11:35 PT 13.6 Seconds (9.8-13.1) H 05/11/17 05:45 INR 1.2 (0.9-1.2) 05/11/17 05:45 APTT 29.4 Seconds (25.6-37.1) 05/11/17 05:45 - Constitutional Appears: Chronically Ill - Head Exam Head Exam: NORMAL INSPECTION - Eye Exam Eye Exam: PERRL - ENT Exam ENT Exam: Normal Exam - Neck Exam Neck Exam: Normal Inspection - Respiratory Exam Respiratory Exam: Decreased Breath Sounds (at bases) - Cardiovascular Exam Cardiovascular Exam: REGULAR RHYTHM, Murmur (2/6 LSB) - GI/Abdominal Exam GI & Abdominal Exam: Soft, Normal Bowel Sounds - Extremities Exam Extremities Exam: Tenderness (L hip, dressing in place, neuromuscular distal status doog) - Back Exam Back Exam: tenderness (mild) - Neurological Exam Neurological Exam: Awake, CN II-XII Intact Additional comments: Generalized weakness - Psychiatric Exam Psychiatric exam: Anxious - Skin Skin Exam: Warm Assessment and Plan (1) Displaced intertrochanteric fracture of left femur Status: Acute (2) Hip fracture, left Status: Acute (3) Back pain Status: Chronic (4) Compression fracture Status: Chronic (5) Constipation Status: Acute (6) COPD (chronic obstructive pulmonary disease) Status: Acute (7) Seizure Status: Chronic (8) HTN (hypertension) Status: Acute (9) High cholesterol Status: Acute (10) Vitamin D deficiency Status: Resolved (11) Thrombocytopenia Status: Chronic (12) Anemia Status: Acute (13) Dementia Status: Chronic - Assessment and Plan (Free Text) Plan: Pt refusing must of the time fluid meals and medications po, Flat plate fecal impaction, GI f/u for PEG Tube insertion, fleet enema.
--- NOTE | 2017-05-16 21:19 | CON ---
DATE: REFERRING PHYSICIAN: Dr. Lara. REASON FOR CONSULTATION: Dysphagia, failure to thrive. HISTORY OF PRESENT ILLNESS: This is a pleasant, but demented elderly 81-year-old female with history of comminuted left hip fracture and surgical repair, since then I was called for failure to thrive and decreased p.o. intake and unwillingness to take p.o. intake, Subsequently, GI was called for PEG tube. The patient is demented, at baseline and cannot give history. PAST MEDICAL HISTORY: As above. PAST SURGICAL HISTORY: As above. MEDICATIONS: Reviewed. REVIEW OF SYSTEMS: All other systems unable to obtain. PHYSICAL EXAMINATION: GENERAL: This is a pleasant elderly appearing female, lying comfortably in bed. VITAL SIGNS: In the hospital, grossly unremarkable. HEENT: Head: Normocephalic and atraumatic. Eyes: Pupils are equal, round and reactive to light bilaterally. No conjunctival pallor or icterus. NECK: Supple. Normal range of motion. No lymphadenopathy appreciated. LUNGS: Coarse breath sounds bilaterally. HEART: S1 and S2. Regular rate and rhythm. No murmurs appreciated. ABDOMEN: Soft, nontender. Bowel sounds present. discomfort. No rebound. No guarding. RECTAL: Deferred. EXTREMITIES: Pulses felt bilaterally. SKIN: Warm, dry, and intact. NEUROLOGIC: A and O x1. LABORATORY DATA: Labs have been reviewed. WBC is 5.6, hemoglobin 9.3, hematocrit 28.1. Potassium 3.4. ASSESSMENT AND PLAN: This is an 81-year-old female with failure to thrive, dysphagia. Plan for feeding tube once agreeable. I already discussed with family and primary care team about goals of care. The patient evaluation is in progress. Recommend KUB for now. Thank you for the consult. Zack Hackett MD/ PhD cc: Dr. Lara
[2017-05-17] MEDS: Nitroglycerin 2% Ointment Foilpak UD TOP SCH ×6 (00:13→23:45)
[2017-05-17] MEDS: Clindamycin 600mg/50ml NS 600 MG/50 ML BAG IVPB SCH ×3 (04:22→21:02)
[2017-05-17] MEDS ORDERED: Povidone Iodine Topical 10% Sol ONE (04:31)
[2017-05-17] MEDS: Fluticasone-Salmeterol 500-50mcg Diskus IH SCH ×2 (08:43→21:04)
[2017-05-17] MEDS: Divalproex 125 mg Sprinkle Capsule PO SCH (08:45)
[2017-05-17] MEDS: Enoxaparin 40 mg Syringe SC SCH (08:45)
[2017-05-17] MEDS: Calcium-Vit D 500 mg-200 Units Tab UD PO SCH (08:47)
--- NOTE | 2017-05-17 10:18 | CARD ---
APPROVED REPORT Protocol: LEXISCAN Test Type: Lexiscan Medications: Tylenol 325mg/Aspirin 81mg Lipitor 40mg/ Dulcolax 10mg Calcium/Vitamin D 1 tab/ Vit B12 1000mcg Depakote 125mg/Cymbalta 20mg Lovenox 40mg/Drisdol 1cap Neurontin 100mg/ Lamictal 25mg Milk of Mag 30mg Meclizine 12.5mg Ditropan 5mg Perocet 5/325 Medical History: HTN, Asthma, Arthritis, Anxiety, Depression, Seizures, Left Proximal Femur fracture, UTI Target HR: 138 bpm Resting ECG: normal Resting Heart Rate: 111 bpm Resting Blood Pressure: /mmHg submaximum (85%): 117 bpm TEST SUMMARY PREINJECTPRE-[id number]. [id number]/[id number]. INJECTIONNS FLUSH00:[id number]/84.0. INJECTIONNUC MED00:[id number]/84.5. [id number]. PROCEDURE Pharmacologic stress testing was performed using 0.4mg per 5ml of regadenoson given intravenously over 7-10 seconds. POST EXERCISE Reason for Termination: protocol completed Target HR: No Max HR: 121 bpm 89% of Maximum Predicted HR: 138 bpm Exercise duration: 01:00 min:sec, 0 Stage Exercise capacity: 1.0METs Max Blood Pressure: 163/84mmHg Blood Pressure response to exercise: normal resting BP - appropriate response Heart Rate response to exercise: appropriate Chest Pain: No, none Angina index: 0 Arrhythmia: No, none ST Change: No, none Deviation: 0 mm Clinical Indications Under Appropriate Use Criteria - Preoperative cardiovascular risk stratification in a 81 year old female who is very poor functional capacity due to dementia and hip fracture Stress EKG Interpretation Inconclusive EXAM: Myocardial Perfusion REST/STRESS Image QualityGood Imaging Protocol The imaging protocol used to acquire images was Rest Tc-99m/stress Tc-99m 2 days Gated Stress Spect was performed 120 minutes after intravenous Tc-99 Myoview injection. The images were gated to evaluate regional wall motion and calculate ventricular ejection fraction.Images were reconstructed using backfilter projection method in short horizontal and verticle long axis. Spect slices were generated. NUCLEAR IMAGE INTERPRETATION Study quality was . Left Ventricular size was Normal at Rest and Stress. Wall Motion Normal wall motion with no perfusion abnormalities noted at peak stress CONCLUSION 1. - Low probability for significant CAD 2. - Normal LVEF Recommendation - As per ACC/AHA guidelines she can proceed with planned surgery with moderate risk for perioperative cardiac event
--- NOTE | 2017-05-17 14:43 | CP.PCM.PN ---
Subjective - Date & Time of Evaluation Date of Evaluation: 05/17/17 Time of Evaluation: 11:15 - Subjective Subjective: Awake, appears comfortable Objective - Vital Signs/Intake and Output Vital Signs (last 24 hours): Temp Pulse Resp BP Pulse Ox 97.9 F 59 L 18 125/50 L 100 05/17/17 08:29 05/17/17 12:03 05/17/17 08:29 05/17/17 12:03 05/17/17 08:29 - Medications Medications: Current Medications Acetaminophen (Tylenol 325mg Tab) 650 mg PO Q6 PRN PRN Reason: Pain, Mild (1-3) Last Admin: 05/16/17 06:51 Dose: 650 mg Aspirin (Aspirin Chewable) 81 mg PO DAILY [facility] Last Admin: 05/10/17 09:29 Dose: Not Given Atorvastatin Calcium (Lipitor) 40 mg PO HS [facility] Last Admin: 05/16/17 21:03 Dose: 40 mg Bisacodyl (Dulcolax) 10 mg [place] Q48H PRN PRN Reason: Constipation Calcium/Vitamin D (Oyster Shell Calcium/Vitamin D 500 Mg-200 Iu) 1 tab PO DAILY [facility] Last Admin: 05/17/17 08:47 Dose: 1 tab Cyanocobalamin (Vitamin B12 1000 Mcg/Ml Inj) 1,000 mcg IM Q30D [facility] Divalproex Sodium (Depakote Sprinkles) 125 mg PO DAILY [facility] Last Admin: 05/17/17 08:45 Dose: 125 mg Duloxetine HCl (Cymbalta) 20 mg PO DAILY [facility] Last Admin: 05/17/17 08:46 Dose: 20 mg Enoxaparin Sodium (Lovenox) 40 mg SC DAILY [facility] PRN Reason: Protocol Last Admin: 05/17/17 08:45 Dose: 40 mg Ergocalciferol (Drisdol 50,000 Intl Units Cap) 1 cap PO QWK [facility] Last Admin: 05/17/17 08:46 Dose: 1 cap Fentanyl (Duragesic) 1 patch TD Q3D [facility] PRN Reason: Protocol Last Admin: 05/14/17 13:46 Dose: 1 patch Gabapentin (Neurontin) 100 mg PO TID [facility] Last Admin: 05/17/17 08:44 Dose: 100 mg Clindamycin Phosphate (Cleocin In Normal Saline) 600 mg in 50 mls @ 50 mls/hr IVPB Q8H [facility] PRN Reason: Protocol Last Admin: 05/17/17 04:22 Dose: 50 mls/hr Lactulose (Enulose) 20 gm PO BID [facility] Last Admin: 05/17/17 10:59 Dose: 20 gm Lamotrigine (Lamictal) 25 mg PO TID [facility] Last Admin: 05/17/17 08:45 Dose: 25 mg Magnesium Hydroxide (Milk Of Magnesia) 30 ml PO Q48H PRN PRN Reason: Constipation Meclizine HCl (Antivert) 12.5 mg PO TID [facility] Last Admin: 05/17/17 08:46 Dose: 12.5 mg Nitroglycerin (Nitro-Bid 2% Oint) 1 ea TOP Q6H [facility] Last Admin: 05/17/17 12:03 Dose: Not Given Oxybutynin Chloride (Ditropan Tab) 5 mg PO TID [facility] Last Admin: 05/17/17 08:45 Dose: 5 mg Pantoprazole Sodium (Protonix Inj) 40 mg IVP DAILY [facility] Last Admin: 05/17/17 08:48 Dose: 40 mg Fluticasone/Salmeterol (Advair Diskus 500/50) 1 puff IH Q12 [facility] Last Admin: 05/17/17 08:43 Dose: Not Given - Labs Labs: 05/16/17 11:35 05/16/17 11:35 PT 13.6 Seconds (9.8-13.1) H 05/11/17 05:45 INR 1.2 (0.9-1.2) 05/11/17 05:45 APTT 29.4 Seconds (25.6-37.1) 05/11/17 05:45 - Head Exam Head Exam: ATRAUMATIC - Eye Exam Eye Exam: Normal appearance - ENT Exam ENT Exam: Mucous Membranes Dry - Respiratory Exam Respiratory Exam: NORMAL BREATHING PATTERN - Cardiovascular Exam Cardiovascular Exam: +S1, +S2 - GI/Abdominal Exam GI & Abdominal Exam: Normal Bowel Sounds Assessment and Plan (1) Anemia Assessment & Plan: surgical blood loss slightly improved Status: Acute (2) Thrombocytopenia Assessment & Plan: resolved Status: Chronic
--- NOTE | 2017-05-17 16:02 | CP.PCM.PN ---
Subjective - Date & Time of Evaluation Date of Evaluation: 05/17/17 Time of Evaluation: 10:30 - Subjective Subjective: F/U S/P ORIF Pt has Lactulose with large BM today, pain L hip Objective - Vital Signs/Intake and Output Vital Signs (last 24 hours): Temp Pulse Resp BP Pulse Ox 97.9 F 59 L 18 125/50 L 100 05/17/17 08:29 05/17/17 12:03 05/17/17 08:29 05/17/17 12:03 05/17/17 08:29 - Medications Medications: Current Medications Acetaminophen (Tylenol 325mg Tab) 650 mg PO Q6 PRN PRN Reason: Pain, Mild (1-3) Last Admin: 05/16/17 06:51 Dose: 650 mg Aspirin (Aspirin Chewable) 81 mg PO DAILY [facility] Last Admin: 05/10/17 09:29 Dose: Not Given Atorvastatin Calcium (Lipitor) 40 mg PO HS [facility] Last Admin: 05/16/17 21:03 Dose: 40 mg Bisacodyl (Dulcolax) 10 mg [place] Q48H PRN PRN Reason: Constipation Calcium/Vitamin D (Oyster Shell Calcium/Vitamin D 500 Mg-200 Iu) 1 tab PO DAILY [facility] Last Admin: 05/17/17 08:47 Dose: 1 tab Cyanocobalamin (Vitamin B12 1000 Mcg/Ml Inj) 1,000 mcg IM Q30D [facility] Divalproex Sodium (Depakote Sprinkles) 125 mg PO DAILY [facility] Last Admin: 05/17/17 08:45 Dose: 125 mg Duloxetine HCl (Cymbalta) 20 mg PO DAILY [facility] Last Admin: 05/17/17 08:46 Dose: 20 mg Enoxaparin Sodium (Lovenox) 40 mg SC DAILY [facility] PRN Reason: Protocol Last Admin: 05/17/17 08:45 Dose: 40 mg Ergocalciferol (Drisdol 50,000 Intl Units Cap) 1 cap PO QWK [facility] Last Admin: 05/17/17 08:46 Dose: 1 cap Fentanyl (Duragesic) 1 patch TD Q3D [facility] PRN Reason: Protocol Last Admin: 05/14/17 13:46 Dose: 1 patch Gabapentin (Neurontin) 100 mg PO TID [facility] Last Admin: 05/17/17 08:44 Dose: 100 mg Clindamycin Phosphate (Cleocin In Normal Saline) 600 mg in 50 mls @ 50 mls/hr IVPB Q8H [facility] PRN Reason: Protocol Last Admin: 05/17/17 04:22 Dose: 50 mls/hr Lactulose (Enulose) 20 gm PO BID [facility] Last Admin: 05/17/17 10:59 Dose: 20 gm Lamotrigine (Lamictal) 25 mg PO TID [facility] Last Admin: 05/17/17 08:45 Dose: 25 mg Magnesium Hydroxide (Milk Of Magnesia) 30 ml PO Q48H PRN PRN Reason: Constipation Meclizine HCl (Antivert) 12.5 mg PO TID [facility] Last Admin: 05/17/17 08:46 Dose: 12.5 mg Nitroglycerin (Nitro-Bid 2% Oint) 1 ea TOP Q6H [facility] Last Admin: 05/17/17 12:03 Dose: Not Given Oxybutynin Chloride (Ditropan Tab) 5 mg PO TID [facility] Last Admin: 05/17/17 08:45 Dose: 5 mg Pantoprazole Sodium (Protonix Inj) 40 mg IVP DAILY [facility] Last Admin: 05/17/17 08:48 Dose: 40 mg Fluticasone/Salmeterol (Advair Diskus 500/50) 1 puff IH Q12 [facility] Last Admin: 05/17/17 08:43 Dose: Not Given - Labs Labs: 05/16/17 11:35 05/16/17 11:35 PT 13.6 Seconds (9.8-13.1) H 05/11/17 05:45 INR 1.2 (0.9-1.2) 05/11/17 05:45 APTT 29.4 Seconds (25.6-37.1) 05/11/17 05:45 - Constitutional Appears: Chronically Ill - Head Exam Head Exam: NORMAL INSPECTION - Eye Exam Eye Exam: PERRL - ENT Exam ENT Exam: Normal Exam - Neck Exam Neck Exam: Normal Inspection - Respiratory Exam Respiratory Exam: Decreased Breath Sounds (at bases) - Cardiovascular Exam Cardiovascular Exam: REGULAR RHYTHM, Murmur (systolic 2/6 LSB) - GI/Abdominal Exam GI & Abdominal Exam: Soft, Normal Bowel Sounds - Extremities Exam Extremities Exam: Tenderness (L hip, dressing in place, neuromuscular status distal good) - Back Exam Back Exam: tenderness (mild) - Neurological Exam Neurological Exam: Awake, CN II-XII Intact Additional comments: Generalized weakness. - Psychiatric Exam Psychiatric exam: Anxious - Skin Skin Exam: Warm Assessment and Plan (1) Displaced intertrochanteric fracture of left femur Status: Acute (2) Hip fracture, left Status: Acute (3) Back pain Status: Chronic (4) Compression fracture Status: Chronic (5) Constipation Status: Acute (6) COPD (chronic obstructive pulmonary disease) Status: Acute (7) Seizure Status: Chronic (8) HTN (hypertension) Status: Acute (9) High cholesterol Status: Acute (10) Vitamin D deficiency Status: Resolved (11) Thrombocytopenia Status: Chronic (12) Anemia Status: Acute (13) Dementia Status: Chronic - Assessment and Plan (Free Text) Plan: Fecal impaction resolved, Pt continue refusing fluid meal and po medication most of the time, f/u GI for Peg tube insertion.
--- NOTE | 2017-05-17 21:33 | CP.PCM.PN ---
Subjective - Date & Time of Evaluation Date of Evaluation: 05/17/17 Time of Evaluation: 09:05 - Subjective Subjective: no overnight events Objective - Vital Signs/Intake and Output Vital Signs (last 24 hours): Temp Pulse Resp BP Pulse Ox 98.2 F 93 H 20 129/73 100 05/17/17 16:37 05/17/17 17:03 05/17/17 16:37 05/17/17 17:03 05/17/17 16:37 - Medications Medications: Current Medications Acetaminophen (Tylenol 325mg Tab) 650 mg PO Q6 PRN PRN Reason: Pain, Mild (1-3) Last Admin: 05/16/17 06:51 Dose: 650 mg Aspirin (Aspirin Chewable) 81 mg PO DAILY [facility] Last Admin: 05/10/17 09:29 Dose: Not Given Atorvastatin Calcium (Lipitor) 40 mg PO HS [facility] Last Admin: 05/17/17 21:04 Dose: 40 mg Bisacodyl (Dulcolax) 10 mg [place] Q48H PRN PRN Reason: Constipation Calcium/Vitamin D (Oyster Shell Calcium/Vitamin D 500 Mg-200 Iu) 1 tab PO DAILY [facility] Last Admin: 05/17/17 08:47 Dose: 1 tab Cyanocobalamin (Vitamin B12 1000 Mcg/Ml Inj) 1,000 mcg IM Q30D [facility] Divalproex Sodium (Depakote Sprinkles) 125 mg PO DAILY [facility] Last Admin: 05/17/17 08:45 Dose: 125 mg Duloxetine HCl (Cymbalta) 20 mg PO DAILY [facility] Last Admin: 05/17/17 08:46 Dose: 20 mg Enoxaparin Sodium (Lovenox) 40 mg SC DAILY [facility] PRN Reason: Protocol Last Admin: 05/17/17 08:45 Dose: 40 mg Ergocalciferol (Drisdol 50,000 Intl Units Cap) 1 cap PO QWK [facility] Last Admin: 05/17/17 08:46 Dose: 1 cap Fentanyl (Duragesic) 1 patch TD Q3D [facility] PRN Reason: Protocol Last Admin: 05/17/17 17:27 Dose: 1 patch Gabapentin (Neurontin) 100 mg PO TID [facility] Last Admin: 05/17/17 16:59 Dose: 100 mg Clindamycin Phosphate (Cleocin In Normal Saline) 600 mg in 50 mls @ 50 mls/hr IVPB Q8H [facility] PRN Reason: Protocol Last Admin: 05/17/17 21:02 Dose: 50 mls/hr Lactulose (Enulose) 20 gm PO BID [facility] Last Admin: 05/17/17 16:59 Dose: Not Given Lamotrigine (Lamictal) 25 mg PO TID [facility] Last Admin: 05/17/17 17:00 Dose: 25 mg Magnesium Hydroxide (Milk Of Magnesia) 30 ml PO Q48H PRN PRN Reason: Constipation Meclizine HCl (Antivert) 12.5 mg PO TID [facility] Last Admin: 05/17/17 16:58 Dose: 12.5 mg Nitroglycerin (Nitro-Bid 2% Oint) 1 ea TOP Q6H [facility] Last Admin: 05/17/17 17:03 Dose: 1 ea Oxybutynin Chloride (Ditropan Tab) 5 mg PO TID [facility] Last Admin: 05/17/17 16:59 Dose: 5 mg Pantoprazole Sodium (Protonix Inj) 40 mg IVP DAILY [facility] Last Admin: 05/17/17 08:48 Dose: 40 mg Fluticasone/Salmeterol (Advair Diskus 500/50) 1 puff IH Q12 [facility] Last Admin: 05/17/17 21:04 Dose: 1 puff - Labs Labs: 05/16/17 11:35 05/16/17 11:35 PT 13.6 Seconds (9.8-13.1) H 05/11/17 05:45 INR 1.2 (0.9-1.2) 05/11/17 05:45 APTT 29.4 Seconds (25.6-37.1) 05/11/17 05:45 - Head Exam Head Exam: NORMAL INSPECTION - Respiratory Exam Respiratory Exam: NORMAL BREATHING PATTERN - Cardiovascular Exam Cardiovascular Exam: REGULAR RHYTHM - GI/Abdominal Exam GI & Abdominal Exam: Soft, Normal Bowel Sounds Assessment and Plan - Assessment and Plan (Free Text) Assessment: 82 yo female with FTT plan for peg this week
[2017-05-18] MEDS: Clindamycin 600mg/50ml NS 600 MG/50 ML BAG IVPB SCH ×3 (04:06→20:25)
[2017-05-18] MEDS: Nitroglycerin 2% Ointment Foilpak UD TOP SCH ×4 (04:21→23:45)
[2017-05-18 06:23] LABS: BLOOD UREA NITROGEN 6 mg/dl (7-17); CALCIUM 8.1 mg/dL (8.4-10.2); GFR AFRICAN-AMERICAN > 60; GFR NON-AFRICAN AMERICAN > 60
[2017-05-18 06:33] LABS: HEMOGLOBIN 8.9 g/dL (12.0-16.0); MEAN CELL VOLUME 86.4 fl (81.0-99.0); MEAN CORPUSCULAR HEMOGLOBIN 28.7 pg (27.0-31.0); MEAN CORPUSCULAR HGB CONC 33.3 g/dL (33.0-37.0); RBC 3.09 Mil/uL (3.80-5.20); RED CELL DISTRIBUTION WIDTH 14.2 % (11.5-14.5); WHITE BLOOD COUNT 7.6 K/uL (4.8-10.8)
[2017-05-18] MEDS: Divalproex 125 mg Sprinkle Capsule PO SCH (08:38)
[2017-05-18] MEDS: Enoxaparin 40 mg Syringe SC SCH (08:39)
[2017-05-18] MEDS: Calcium-Vit D 500 mg-200 Units Tab UD PO SCH (08:39)
[2017-05-18] MEDS: Fluticasone-Salmeterol 500-50mcg Diskus IH SCH ×2 (10:28→21:25)
[2017-05-18] MEDS: Potassium Chl 40 mEq in D5-1/2 1,000 ML IV SCH (13:00)
--- NOTE | 2017-05-18 15:09 | CP.PCM.PN ---
Subjective - Date & Time of Evaluation Date of Evaluation: 05/18/17 Time of Evaluation: 13:00 - Subjective Subjective: S/P ORIF L Hip Pt awake, confused, mumbling sounds, pain in L hip. Objective - Vital Signs/Intake and Output Vital Signs (last 24 hours): Temp Pulse Resp BP Pulse Ox 98.4 F 91 H 20 116/55 L 94 L 05/18/17 08:41 05/18/17 12:08 05/18/17 08:41 05/18/17 12:08 05/18/17 08:41 - Medications Medications: Current Medications Acetaminophen (Tylenol 325mg Tab) 650 mg PO Q6 PRN PRN Reason: Pain, Mild (1-3) Last Admin: 05/16/17 06:51 Dose: 650 mg Aspirin (Aspirin Chewable) 81 mg PO DAILY [facility] Last Admin: 05/10/17 09:29 Dose: Not Given Atorvastatin Calcium (Lipitor) 40 mg PO HS [facility] Last Admin: 05/17/17 21:04 Dose: 40 mg Bisacodyl (Dulcolax) 10 mg [place] Q48H PRN PRN Reason: Constipation Calcium/Vitamin D (Oyster Shell Calcium/Vitamin D 500 Mg-200 Iu) 1 tab PO DAILY [facility] Last Admin: 05/18/17 08:39 Dose: 1 tab Cyanocobalamin (Vitamin B12 1000 Mcg/Ml Inj) 1,000 mcg IM Q30D [facility] Divalproex Sodium (Depakote Sprinkles) 125 mg PO DAILY [facility] Last Admin: 05/18/17 08:38 Dose: 125 mg Duloxetine HCl (Cymbalta) 20 mg PO DAILY [facility] Last Admin: 05/18/17 08:38 Dose: 20 mg Enoxaparin Sodium (Lovenox) 40 mg SC DAILY [facility] PRN Reason: Protocol Last Admin: 05/18/17 08:39 Dose: 40 mg Ergocalciferol (Drisdol 50,000 Intl Units Cap) 1 cap PO QWK [facility] Last Admin: 05/17/17 08:46 Dose: 1 cap Fentanyl (Duragesic) 1 patch TD Q3D [facility] PRN Reason: Protocol Last Admin: 05/17/17 17:27 Dose: 1 patch Gabapentin (Neurontin) 100 mg PO TID [facility] Last Admin: 05/18/17 12:02 Dose: 100 mg Clindamycin Phosphate (Cleocin In Normal Saline) 600 mg in 50 mls @ 50 mls/hr IVPB Q8H [facility] PRN Reason: Protocol Last Admin: 05/18/17 12:00 Dose: 50 mls/hr Potassium Chloride/Dextrose/Sod Cl (Potassium Chl 40 Meq In D5-1/2ns) 1,000 mls @ 60 mls/hr IV .[id number] [facility] Stop: 05/19/17 11:56 Lactulose (Enulose) 20 gm PO BID [facility] Last Admin: 05/18/17 08:57 Dose: 20 gm Lamotrigine (Lamictal) 25 mg PO TID [facility] Last Admin: 05/18/17 12:01 Dose: 25 mg Magnesium Hydroxide (Milk Of Magnesia) 30 ml PO Q48H PRN PRN Reason: Constipation Meclizine HCl (Antivert) 12.5 mg PO TID [facility] Last Admin: 05/18/17 12:01 Dose: 12.5 mg Nitroglycerin (Nitro-Bid 2% Oint) 1 ea TOP Q6H [facility] Last Admin: 05/18/17 12:08 Dose: 1 ea Oxybutynin Chloride (Ditropan Tab) 5 mg PO TID [facility] Last Admin: 05/18/17 12:01 Dose: 5 mg Pantoprazole Sodium (Protonix Inj) 40 mg IVP DAILY [facility] Last Admin: 05/18/17 08:40 Dose: 40 mg Fluticasone/Salmeterol (Advair Diskus 500/50) 1 puff IH Q12 [facility] Last Admin: 05/18/17 10:28 Dose: Not Given - Labs Labs: 05/18/17 05:50 05/18/17 05:50 PT 13.6 Seconds (9.8-13.1) H 05/11/17 05:45 INR 1.2 (0.9-1.2) 05/11/17 05:45 APTT 29.4 Seconds (25.6-37.1) 05/11/17 05:45 - Constitutional Appears: Chronically Ill - Head Exam Head Exam: NORMAL INSPECTION - Eye Exam Eye Exam: PERRL - ENT Exam ENT Exam: Normal Exam - Neck Exam Neck Exam: Normal Inspection - Respiratory Exam Respiratory Exam: Decreased Breath Sounds (at bases) - Cardiovascular Exam Cardiovascular Exam: REGULAR RHYTHM, Murmur (systolic 2/6 LSB) - GI/Abdominal Exam GI & Abdominal Exam: Soft, Normal Bowel Sounds - Extremities Exam Extremities Exam: Tenderness (L hip, dressing in place, neuromuscular status distal good.) Additional comments: 1+ non pitting edema L/E - Back Exam Back Exam: tenderness (mild) - Neurological Exam Neurological Exam: Awake, CN II-XII Intact Additional comments: Forgetful, Generalized weakness - Psychiatric Exam Psychiatric exam: Anxious - Skin Skin Exam: Warm Assessment and Plan (1) Displaced intertrochanteric fracture of left femur Status: Acute (2) Hip fracture, left Status: Acute (3) Back pain Status: Chronic (4) Compression fracture Status: Chronic (5) Constipation Status: Acute (6) COPD (chronic obstructive pulmonary disease) Status: Acute (7) Seizure Status: Chronic (8) HTN (hypertension) Status: Acute (9) High cholesterol Status: Acute (10) Vitamin D deficiency Status: Resolved (11) Thrombocytopenia Status: Chronic (12) Anemia Status: Acute (13) Dementia Status: Chronic - Assessment and Plan (Free Text) Plan: Pt continue refusing meal and pain medication, waiting for Peg tube insertion, continue current Tx.
[2017-05-19] MEDS: Clindamycin 600mg/50ml NS 600 MG/50 ML BAG IVPB SCH ×3 (04:45→20:22)
[2017-05-19] MEDS: Nitroglycerin 2% Ointment Foilpak UD TOP SCH ×4 (04:46→23:40)
[2017-05-19] MEDS: Potassium Chl 40 mEq in D5-1/2 1,000 ML IV SCH (04:46)
[2017-05-19] MEDS: Fluticasone-Salmeterol 500-50mcg Diskus IH SCH ×2 (10:05→21:00)
[2017-05-19] MEDS: Divalproex 125 mg Sprinkle Capsule PO SCH ×2 (10:06→10:20)
[2017-05-19] MEDS: Calcium-Vit D 500 mg-200 Units Tab UD PO SCH ×2 (10:06→10:22)
[2017-05-19] MEDS: Enoxaparin 40 mg Syringe SC SCH (10:06)
[2017-05-19 11:17] LABS: BLOOD UREA NITROGEN 4 mg/dl (7-17); CALCIUM 8.7 mg/dL (8.4-10.2); GFR AFRICAN-AMERICAN > 60; GFR NON-AFRICAN AMERICAN > 60
--- NOTE | 2017-05-19 12:33 | CP.PCM.PN ---
Subjective - Date & Time of Evaluation Date of Evaluation: 05/19/17 Time of Evaluation: 12:31 - Subjective Subjective: Patient follows some commands, but not all. Objective - Vital Signs/Intake and Output Vital Signs (last 24 hours): Temp Pulse Resp BP Pulse Ox 98.4 F 77 20 134/73 95 05/19/17 07:57 05/19/17 07:57 05/19/17 07:57 05/19/17 07:57 05/19/17 07:57 - Medications Medications: Current Medications Acetaminophen (Tylenol 325mg Tab) 650 mg PO Q6 PRN PRN Reason: Pain, Mild (1-3) Last Admin: 05/16/17 06:51 Dose: 650 mg Aspirin (Aspirin Chewable) 81 mg PO DAILY [facility] Last Admin: 05/10/17 09:29 Dose: Not Given Atorvastatin Calcium (Lipitor) 40 mg PO HS [facility] Last Admin: 05/18/17 21:26 Dose: 40 mg Bisacodyl (Dulcolax) 10 mg [place] Q48H PRN PRN Reason: Constipation Calcium/Vitamin D (Oyster Shell Calcium/Vitamin D 500 Mg-200 Iu) 1 tab PO DAILY [facility] Last Admin: 05/19/17 10:22 Dose: Not Given Cyanocobalamin (Vitamin B12 1000 Mcg/Ml Inj) 1,000 mcg IM Q30D [facility] Divalproex Sodium (Depakote Sprinkles) 125 mg PO DAILY [facility] Last Admin: 05/19/17 10:20 Dose: Not Given Duloxetine HCl (Cymbalta) 20 mg PO DAILY [facility] Last Admin: 05/19/17 10:20 Dose: Not Given Enoxaparin Sodium (Lovenox) 40 mg SC DAILY [facility] PRN Reason: Protocol Last Admin: 05/19/17 10:06 Dose: 40 mg Ergocalciferol (Drisdol 50,000 Intl Units Cap) 1 cap PO QWK [facility] Last Admin: 05/17/17 08:46 Dose: 1 cap Fentanyl (Duragesic) 1 patch TD Q3D [facility] PRN Reason: Protocol Last Admin: 05/17/17 17:27 Dose: 1 patch Gabapentin (Neurontin) 100 mg PO TID [facility] Last Admin: 05/18/17 16:14 Dose: 100 mg Clindamycin Phosphate (Cleocin In Normal Saline) 600 mg in 50 mls @ 50 mls/hr IVPB Q8H [facility] PRN Reason: Protocol Last Admin: 05/19/17 04:45 Dose: 50 mls/hr Lactulose (Enulose) 20 gm PO BID [facility] Last Admin: 05/19/17 10:22 Dose: Not Given Lamotrigine (Lamictal) 25 mg PO TID [facility] Last Admin: 05/19/17 10:22 Dose: Not Given Magnesium Hydroxide (Milk Of Magnesia) 30 ml PO Q48H PRN PRN Reason: Constipation Meclizine HCl (Antivert) 12.5 mg PO TID [facility] Last Admin: 05/19/17 10:20 Dose: Not Given Nitroglycerin (Nitro-Bid 2% Oint) 1 ea TOP Q6H [facility] Last Admin: 05/19/17 04:46 Dose: 1 ea Oxybutynin Chloride (Ditropan Tab) 5 mg PO TID [facility] Last Admin: 05/19/17 10:23 Dose: Not Given Pantoprazole Sodium (Protonix Inj) 40 mg IVP DAILY [facility] Last Admin: 05/19/17 10:07 Dose: 40 mg Fluticasone/Salmeterol (Advair Diskus 500/50) 1 puff IH Q12 [facility] Last Admin: 05/19/17 10:05 Dose: Not Given - Labs Labs: 05/18/17 05:50 05/19/17 10:49 PT 13.6 Seconds (9.8-13.1) H 05/11/17 05:45 INR 1.2 (0.9-1.2) 05/11/17 05:45 APTT 29.4 Seconds (25.6-37.1) 05/11/17 05:45 - Extremities Exam Additional comments: Left hip: dressing changed. Incision intact, dry, no erythema. +ROM ankle/toes, moves to light touch, calves soft NT neg homans +DP/PT pulses calves soft NT neg homans Assessment and Plan (1) Displaced intertrochanteric fracture of left femur Assessment & Plan: POD#7 s/p left hip orif -ortho stable d/c planning PT/OT VTE proph d/w Dr. Barboza, agrees with above Status: Acute
--- NOTE | 2017-05-19 14:29 | CP.PCM.PN ---
Subjective - Date & Time of Evaluation Date of Evaluation: 05/19/17 Time of Evaluation: 12:30 - Subjective Subjective: S/P ORIF L Hip Pt awake, c/o L hip pain, refused breakfast in Am, as per nurse, took less than 25% of Ensure. Objective - Vital Signs/Intake and Output Vital Signs (last 24 hours): Temp Pulse Resp BP Pulse Ox 98.4 F 70 20 116/68 95 05/19/17 07:57 05/19/17 12:32 05/19/17 07:57 05/19/17 12:32 05/19/17 07:57 - Medications Medications: Current Medications Acetaminophen (Tylenol 325mg Tab) 650 mg PO Q6 PRN PRN Reason: Pain, Mild (1-3) Last Admin: 05/16/17 06:51 Dose: 650 mg Aspirin (Aspirin Chewable) 81 mg PO DAILY [facility] Last Admin: 05/10/17 09:29 Dose: Not Given Atorvastatin Calcium (Lipitor) 40 mg PO HS [facility] Last Admin: 05/18/17 21:26 Dose: 40 mg Bisacodyl (Dulcolax) 10 mg [place] Q48H PRN PRN Reason: Constipation Calcium/Vitamin D (Oyster Shell Calcium/Vitamin D 500 Mg-200 Iu) 1 tab PO DAILY [facility] Last Admin: 05/19/17 10:22 Dose: Not Given Cyanocobalamin (Vitamin B12 1000 Mcg/Ml Inj) 1,000 mcg IM Q30D [facility] Divalproex Sodium (Depakote Sprinkles) 125 mg PO DAILY [facility] Last Admin: 05/19/17 10:20 Dose: Not Given Duloxetine HCl (Cymbalta) 20 mg PO DAILY [facility] Last Admin: 05/19/17 10:20 Dose: Not Given Enoxaparin Sodium (Lovenox) 40 mg SC DAILY [facility] PRN Reason: Protocol Last Admin: 05/19/17 10:06 Dose: 40 mg Ergocalciferol (Drisdol 50,000 Intl Units Cap) 1 cap PO QWK [facility] Last Admin: 05/17/17 08:46 Dose: 1 cap Fentanyl (Duragesic) 1 patch TD Q3D [facility] PRN Reason: Protocol Last Admin: 05/17/17 17:27 Dose: 1 patch Gabapentin (Neurontin) 100 mg PO TID [facility] Last Admin: 05/19/17 12:34 Dose: 100 mg Clindamycin Phosphate (Cleocin In Normal Saline) 600 mg in 50 mls @ 50 mls/hr IVPB Q8H [facility] PRN Reason: Protocol Last Admin: 05/19/17 12:33 Dose: 50 mls/hr Lactulose (Enulose) 20 gm PO BID [facility] Last Admin: 05/19/17 10:22 Dose: Not Given Lamotrigine (Lamictal) 25 mg PO TID [facility] Last Admin: 05/19/17 12:34 Dose: 25 mg Magnesium Hydroxide (Milk Of Magnesia) 30 ml PO Q48H PRN PRN Reason: Constipation Meclizine HCl (Antivert) 12.5 mg PO TID [facility] Last Admin: 05/19/17 12:33 Dose: 12.5 mg Nitroglycerin (Nitro-Bid 2% Oint) 1 ea TOP Q6H [facility] Last Admin: 05/19/17 12:32 Dose: 1 ea Oxybutynin Chloride (Ditropan Tab) 5 mg PO TID [facility] Last Admin: 05/19/17 12:34 Dose: 5 mg Pantoprazole Sodium (Protonix Inj) 40 mg IVP DAILY [facility] Last Admin: 05/19/17 10:07 Dose: 40 mg Fluticasone/Salmeterol (Advair Diskus 500/50) 1 puff IH Q12 [facility] Last Admin: 05/19/17 10:05 Dose: Not Given - Labs Labs: 05/18/17 05:50 05/19/17 10:49 PT 13.6 Seconds (9.8-13.1) H 05/11/17 05:45 INR 1.2 (0.9-1.2) 05/11/17 05:45 APTT 29.4 Seconds (25.6-37.1) 05/11/17 05:45 - Constitutional Appears: Chronically Ill - Head Exam Head Exam: NORMAL INSPECTION - Eye Exam Eye Exam: PERRL - ENT Exam ENT Exam: Normal Exam - Neck Exam Neck Exam: Normal Inspection - Respiratory Exam Respiratory Exam: Decreased Breath Sounds (at bases) - Cardiovascular Exam Cardiovascular Exam: REGULAR RHYTHM, Murmur (systo;ic 2/6 LSB) - GI/Abdominal Exam GI & Abdominal Exam: Soft, Normal Bowel Sounds - Extremities Exam Extremities Exam: Tenderness (L hip, dressing in place) Additional comments: Neuromuscular status distal good - Back Exam Back Exam: tenderness (mild) - Neurological Exam Neurological Exam: Awake, CN II-XII Intact Additional comments: Confused, generalized weakness. - Psychiatric Exam Psychiatric exam: Anxious - Skin Skin Exam: Warm Assessment and Plan (1) Displaced intertrochanteric fracture of left femur Status: Acute (2) Hip fracture, left Status: Acute (3) Back pain Status: Chronic (4) Compression fracture Status: Chronic (5) Constipation Status: Acute (6) COPD (chronic obstructive pulmonary disease) Status: Acute (7) Seizure Status: Chronic (8) HTN (hypertension) Status: Acute (9) High cholesterol Status: Acute (10) Vitamin D deficiency Status: Resolved (11) Thrombocytopenia Status: Chronic (12) Anemia Status: Acute (13) Dementia Status: Chronic - Assessment and Plan (Free Text) Plan: Continue Clinda, Duragesic path, Fentanyl, Neurontin, Dextrose IV, Ergocalciferol, Calcium/Vit D and rest of Tx.and rest of Tx.
--- NOTE | 2017-05-19 15:38 | CP.PCM.PN ---
Subjective - Date & Time of Evaluation Date of Evaluation: 05/19/17 Time of Evaluation: 09:30 - Subjective Subjective: son refused peg at this time Objective - Vital Signs/Intake and Output Vital Signs (last 24 hours): Temp Pulse Resp BP Pulse Ox 98.4 F 70 20 116/68 95 05/19/17 07:57 05/19/17 12:32 05/19/17 07:57 05/19/17 12:32 05/19/17 07:57 - Medications Medications: Current Medications Acetaminophen (Tylenol 325mg Tab) 650 mg PO Q6 PRN PRN Reason: Pain, Mild (1-3) Last Admin: 05/16/17 06:51 Dose: 650 mg Aspirin (Aspirin Chewable) 81 mg PO DAILY [facility] Last Admin: 05/10/17 09:29 Dose: Not Given Atorvastatin Calcium (Lipitor) 40 mg PO HS [facility] Last Admin: 05/18/17 21:26 Dose: 40 mg Bisacodyl (Dulcolax) 10 mg [place] Q48H PRN PRN Reason: Constipation Calcium/Vitamin D (Oyster Shell Calcium/Vitamin D 500 Mg-200 Iu) 1 tab PO DAILY [facility] Last Admin: 05/19/17 10:22 Dose: Not Given Cyanocobalamin (Vitamin B12 1000 Mcg/Ml Inj) 1,000 mcg IM Q30D [facility] Divalproex Sodium (Depakote Sprinkles) 125 mg PO DAILY [facility] Last Admin: 05/19/17 10:20 Dose: Not Given Duloxetine HCl (Cymbalta) 20 mg PO DAILY [facility] Last Admin: 05/19/17 10:20 Dose: Not Given Enoxaparin Sodium (Lovenox) 40 mg SC DAILY [facility] PRN Reason: Protocol Last Admin: 05/19/17 10:06 Dose: 40 mg Ergocalciferol (Drisdol 50,000 Intl Units Cap) 1 cap PO QWK [facility] Last Admin: 05/17/17 08:46 Dose: 1 cap Fentanyl (Duragesic) 1 patch TD Q3D [facility] PRN Reason: Protocol Last Admin: 05/17/17 17:27 Dose: 1 patch Gabapentin (Neurontin) 100 mg PO TID [facility] Last Admin: 05/19/17 12:34 Dose: 100 mg Clindamycin Phosphate (Cleocin In Normal Saline) 600 mg in 50 mls @ 50 mls/hr IVPB Q8H [facility] PRN Reason: Protocol Last Admin: 05/19/17 12:33 Dose: 50 mls/hr Lactulose (Enulose) 20 gm PO BID [facility] Last Admin: 05/19/17 10:22 Dose: Not Given Lamotrigine (Lamictal) 25 mg PO TID [facility] Last Admin: 05/19/17 12:34 Dose: 25 mg Magnesium Hydroxide (Milk Of Magnesia) 30 ml PO Q48H PRN PRN Reason: Constipation Meclizine HCl (Antivert) 12.5 mg PO TID [facility] Last Admin: 05/19/17 12:33 Dose: 12.5 mg Nitroglycerin (Nitro-Bid 2% Oint) 1 ea TOP Q6H [facility] Last Admin: 05/19/17 12:32 Dose: 1 ea Oxybutynin Chloride (Ditropan Tab) 5 mg PO TID [facility] Last Admin: 05/19/17 12:34 Dose: 5 mg Pantoprazole Sodium (Protonix Inj) 40 mg IVP DAILY [facility] Last Admin: 05/19/17 10:07 Dose: 40 mg Fluticasone/Salmeterol (Advair Diskus 500/50) 1 puff IH Q12 [facility] Last Admin: 05/19/17 10:05 Dose: Not Given - Labs Labs: 05/18/17 05:50 05/19/17 10:49 PT 13.6 Seconds (9.8-13.1) H 05/11/17 05:45 INR 1.2 (0.9-1.2) 05/11/17 05:45 APTT 29.4 Seconds (25.6-37.1) 05/11/17 05:45 - Respiratory Exam Respiratory Exam: NORMAL BREATHING PATTERN - Cardiovascular Exam Cardiovascular Exam: REGULAR RHYTHM - GI/Abdominal Exam GI & Abdominal Exam: Soft, Normal Bowel Sounds Assessment and Plan - Assessment and Plan (Free Text) Assessment: 82 yo female with unwillingness to eat po trials peg on hold for now
--- NOTE | 2017-05-19 19:07 | CP.PCM.CON ---
History of Present Illness - History of Present Illness History of Present Illness: Neurology Consultation Note: Mrs. Laureano is an 82-year-old woman who was admitted from a assisted after hip fracture and surgery. She has multiple medical and psychiatric co- morbidities including dementia and epilepsy. After the surgery, she has been refusing to eat and seems to be more encephalopathic. Neurology was consulted to assist with the management and care. When I saw the patient, she was sitting comfortably in bed, but when I began talking with her and asking her questions, she rarely answered. She followed commands and when I asked her if she was hungry, she said a little, but when I attempted to feed her, she refused and pointed to her mouth as though she may have pain there, but when I asked her if there was pain there, she said no. She was apparently confused about whether or not she wanted to eat or not. Review of Systems - Review of Systems Systems not reviewed;Unavailable: Altered Mental Status Past Patient History - Infectious Disease Hx of Infectious Diseases: None - Past Medical History & Family History Past Medical History?: Yes - Past Social History Smoking Status: Never Smoked Drugs: Other (no ETOH) Home Situation {Lives}: Prison - CARDIAC Hx Hypercholesterolemia: Yes Hx Hypertension: Yes - PULMONARY Hx Chronic Obstructive Pulmonary Disease (COPD): Yes - NEUROLOGICAL Hx Neurological Disorder: Yes Hx Dementia: Yes Hx Seizures: Yes - HEENT Hx HEENT Problems: No - RENAL Hx Chronic Kidney Disease: No - ENDOCRINE/METABOLIC Hx Endocrine Disorders: No - HEMATOLOGICAL/ONCOLOGICAL Hx Blood Disorders: No Hx Human Immunodeficiency Virus (HIV): No - INTEGUMENTARY Hx Dermatological Problems: No - MUSCULOSKELETAL/RHEUMATOLOGICAL Hx Arthritis: Yes - GASTROINTESTINAL Hx Gastrointestinal Disorders: Yes Hx Constipation: Yes - GENITOURINARY/GYNECOLOGICAL Hx Genitourinary Disorders: No Hx Incontinence: Yes - PSYCHIATRIC Hx Psychophysiologic Disorder: Yes Hx Anxiety: Yes Hx Depression: Yes - SURGICAL HISTORY Hx Surgeries: Yes Hx Tubal Ligation: Yes - ANESTHESIA Hx Anesthesia: Yes Hx Anesthesia Reactions: No Hx Malignant Hyperthermia: No Has any member of the family had a problem w/ anesthesia?: No Meds Allergies/Adverse Reactions: Allergies Allergy/AdvReac Type Severity Reaction Status Date / Time Penicillins Allergy RASH Verified 05/05/17 20:13 - Medications Medications: Current Medications Acetaminophen (Tylenol 325mg Tab) 650 mg PO Q6 PRN PRN Reason: Pain, Mild (1-3) Last Admin: 05/16/17 06:51 Dose: 650 mg Aspirin (Aspirin Chewable) 81 mg PO DAILY [facility] Last Admin: 05/10/17 09:29 Dose: Not Given Atorvastatin Calcium (Lipitor) 40 mg PO HS [facility] Last Admin: 05/18/17 21:26 Dose: 40 mg Bisacodyl (Dulcolax) 10 mg [place] Q48H PRN PRN Reason: Constipation Calcium/Vitamin D (Oyster Shell Calcium/Vitamin D 500 Mg-200 Iu) 1 tab PO DAILY [facility] Last Admin: 05/19/17 10:22 Dose: Not Given Cyanocobalamin (Vitamin B12 1000 Mcg/Ml Inj) 1,000 mcg IM Q30D [facility] Divalproex Sodium (Depakote Sprinkles) 125 mg PO DAILY [facility] Last Admin: 05/19/17 10:20 Dose: Not Given Duloxetine HCl (Cymbalta) 20 mg PO DAILY [facility] Last Admin: 05/19/17 10:20 Dose: Not Given Enoxaparin Sodium (Lovenox) 40 mg SC DAILY [facility] PRN Reason: Protocol Last Admin: 05/19/17 10:06 Dose: 40 mg Ergocalciferol (Drisdol 50,000 Intl Units Cap) 1 cap PO QWK [facility] Last Admin: 05/17/17 08:46 Dose: 1 cap Fentanyl (Duragesic) 1 patch TD Q3D [facility] PRN Reason: Protocol Last Admin: 05/17/17 17:27 Dose: 1 patch Gabapentin (Neurontin) 100 mg PO TID [facility] Last Admin: 05/19/17 17:17 Dose: 100 mg Clindamycin Phosphate (Cleocin In Normal Saline) 600 mg in 50 mls @ 50 mls/hr IVPB Q8H [facility] PRN Reason: Protocol Last Admin: 05/19/17 12:33 Dose: 50 mls/hr Lactulose (Enulose) 20 gm PO BID [facility] Last Admin: 05/19/17 17:17 Dose: 20 gm Lamotrigine (Lamictal) 25 mg PO TID [facility] Last Admin: 05/19/17 17:17 Dose: 25 mg Magnesium Hydroxide (Milk Of Magnesia) 30 ml PO Q48H PRN PRN Reason: Constipation Meclizine HCl (Antivert) 12.5 mg PO TID [facility] Last Admin: 05/19/17 17:17 Dose: 12.5 mg Nitroglycerin (Nitro-Bid 2% Oint) 1 ea TOP Q6H [facility] Last Admin: 05/19/17 17:47 Dose: 1 ea Oxybutynin Chloride (Ditropan Tab) 5 mg PO TID [facility] Last Admin: 05/19/17 17:18 Dose: 5 mg Pantoprazole Sodium (Protonix Inj) 40 mg IVP DAILY [facility] Last Admin: 05/19/17 10:07 Dose: 40 mg Fluticasone/Salmeterol (Advair Diskus 500/50) 1 puff IH Q12 [facility] Last Admin: 05/19/17 10:05 Dose: Not Given Physical Exam - Constitutional Appears: No Acute Distress - Head Exam Head Exam: ATRAUMATIC, NORMAL INSPECTION, NORMOCEPHALIC - Eye Exam Eye Exam: EOMI, Normal appearance, PERRL - Neck Exam Neck exam: Positive for: Normal Inspection - Respiratory Exam Respiratory Exam: Clear to Auscultation Bilateral, NORMAL BREATHING PATTERN - GI/Abdominal Exam GI & Abdominal Exam: Normal Bowel Sounds, Soft. absent: Tenderness - Rectal Exam Rectal Exam: Deferred - Extremities Exam Extremities exam: Positive for: normal inspection - Back Exam Back exam: NORMAL INSPECTION - Neurological Exam Neurological exam: Altered, CN II-XII Intact Additional comments: Not oriented to place or time. Comprehension is somewhat impaired, unable to complete formal cognitive testing. CN 2-12 are intact. Moves all extremities, follows simple commands, sensation is intact, reflexes are normal, plantar responses are downgoing. Results - Vital Signs Recent Vital Signs: Last Vital Signs Temp 98.3 F 05/19/17 17:00 Pulse 99 H 05/19/17 17:47 Resp 20 05/19/17 15:55 BP 128/76 05/19/17 17:47 Pulse Ox 95 05/19/17 15:55 - Labs Result Diagrams: 05/18/17 05:50 05/19/17 10:49 Labs: Laboratory Results - last 24 hr 05/19/17 10:49 Sodium 137 Potassium 4.5 Chloride 102 Carbon Dioxide 32 H Anion Gap 8 L BUN 4 L Creatinine 0.4 L Est GFR ( Amer) > 60 Est GFR (Non-Af Amer) > 60 Random Glucose 119 H Calcium 8.7 Assessment & Plan (1) Encephalopathy Assessment and Plan: Likely chronic and exacerbated by recent infections and hip fracture. I recommend obtaining a CT of the head to rule out intracranial pathology. The patient may benefit from a PEG tube to improve nutrition and medication compliance. She does not seem to be having seizures. If the CT scan if normal , we will consider psychiatric components considering her history. Thank you. Status: Acute Priority: High
[2017-05-20] MEDS: Clindamycin 600mg/50ml NS 600 MG/50 ML BAG IVPB SCH ×2 (04:38→12:31)
[2017-05-20] MEDS: Nitroglycerin 2% Ointment Foilpak UD TOP SCH ×3 (05:20→17:10)
[2017-05-20] MEDS: Fluticasone-Salmeterol 500-50mcg Diskus IH SCH ×2 (08:40→22:07)
[2017-05-20] MEDS: Divalproex 125 mg Sprinkle Capsule PO SCH ×2 (08:57→10:57)
[2017-05-20] MEDS: Calcium-Vit D 500 mg-200 Units Tab UD PO SCH ×2 (08:58→10:56)
[2017-05-20] MEDS: Enoxaparin 40 mg Syringe SC SCH (08:58)
--- NOTE | 2017-05-20 11:35 | CP.PCM.PN ---
Subjective - Date & Time of Evaluation Date of Evaluation: 05/20/17 Time of Evaluation: 11:32 - Subjective Subjective: Ms. Laureano was seen and examined at the bedside. She opens her eyes with verbal and tactile stimuli, but no verbal response. She only moans and groans with pain stimuli. She moves her extremities spontaneously, but unable to follow simple commands or answer to any questions. Currently, she is receiving IVF. There was no untoward events overnight. Objective - Vital Signs/Intake and Output Vital Signs (last 24 hours): Temp Pulse Resp BP Pulse Ox 98.5 F 80 18 126/56 L 95 05/20/17 08:13 05/20/17 08:13 05/20/17 08:13 05/20/17 08:13 05/20/17 08:13 - Medications Medications: Current Medications Acetaminophen (Tylenol 325mg Tab) 650 mg PO Q6 PRN PRN Reason: Pain, Mild (1-3) Last Admin: 05/16/17 06:51 Dose: 650 mg Aspirin (Aspirin Chewable) 81 mg PO DAILY [facility] Last Admin: 05/10/17 09:29 Dose: Not Given Atorvastatin Calcium (Lipitor) 40 mg PO HS [facility] Last Admin: 05/19/17 21:22 Dose: 40 mg Bisacodyl (Dulcolax) 10 mg [place] Q48H PRN PRN Reason: Constipation Calcium/Vitamin D (Oyster Shell Calcium/Vitamin D 500 Mg-200 Iu) 1 tab PO DAILY [facility] Last Admin: 05/20/17 10:56 Dose: Not Given Cyanocobalamin (Vitamin B12 1000 Mcg/Ml Inj) 1,000 mcg IM Q30D [facility] Divalproex Sodium (Depakote Sprinkles) 125 mg PO DAILY [facility] Last Admin: 05/20/17 10:57 Dose: Not Given Duloxetine HCl (Cymbalta) 20 mg PO DAILY [facility] Last Admin: 05/20/17 10:57 Dose: Not Given Enoxaparin Sodium (Lovenox) 40 mg SC DAILY [facility] PRN Reason: Protocol Last Admin: 05/20/17 08:58 Dose: 40 mg Ergocalciferol (Drisdol 50,000 Intl Units Cap) 1 cap PO QWK [facility] Last Admin: 05/17/17 08:46 Dose: 1 cap Fentanyl (Duragesic) 1 patch TD Q3D [facility] PRN Reason: Protocol Last Admin: 05/17/17 17:27 Dose: 1 patch Gabapentin (Neurontin) 100 mg PO TID [facility] Last Admin: 05/20/17 10:56 Dose: Not Given Clindamycin Phosphate (Cleocin In Normal Saline) 600 mg in 50 mls @ 50 mls/hr IVPB Q8H [facility] PRN Reason: Protocol Last Admin: 05/20/17 04:38 Dose: 50 mls/hr Lactulose (Enulose) 20 gm PO BID [facility] Last Admin: 05/20/17 10:57 Dose: Not Given Lamotrigine (Lamictal) 25 mg PO TID [facility] Last Admin: 05/20/17 10:56 Dose: Not Given Magnesium Hydroxide (Milk Of Magnesia) 30 ml PO Q48H PRN PRN Reason: Constipation Meclizine HCl (Antivert) 12.5 mg PO TID [facility] Last Admin: 05/20/17 10:55 Dose: Not Given Nitroglycerin (Nitro-Bid 2% Oint) 1 ea TOP Q6H [facility] Last Admin: 05/20/17 05:20 Dose: 1 ea Oxybutynin Chloride (Ditropan Tab) 5 mg PO TID [facility] Last Admin: 05/20/17 10:57 Dose: Not Given Pantoprazole Sodium (Protonix Inj) 40 mg IVP DAILY [facility] Last Admin: 05/20/17 08:56 Dose: 40 mg Fluticasone/Salmeterol (Advair Diskus 500/50) 1 puff IH Q12 [facility] Last Admin: 05/20/17 08:40 Dose: Not Given - Labs Labs: 05/18/17 05:50 05/19/17 10:49 PT 13.6 Seconds (9.8-13.1) H 05/11/17 05:45 INR 1.2 (0.9-1.2) 05/11/17 05:45 APTT 29.4 Seconds (25.6-37.1) 05/11/17 05:45 - Constitutional Appears: No Acute Distress - Head Exam Head Exam: NORMAL INSPECTION - Neurological Exam Neurological Exam: Awake Neuro motor strength exam: Left Upper Extremity: 3, Right Upper Extremity: 3, Left Lower Extremity: 3, Right Lower Extremity: 3 Additional comments: She is unable to answer questions or follow simple commands. Assessment and Plan (1) Encephalopathy Assessment & Plan: Case discussed with Dr. Flanagan, continue all current medical regimen. Recommends peg tube for nutrition and medication purposes. Follow up CT of the head without contrast to evaluate any pathology in the brain, if it is normal to consult a psychiatrist. Status: Acute
--- NOTE | 2017-05-20 13:26 | CP.PCM.CON ---
History of Present Illness - History of Present Illness History of Present Illness: consult requested for poor appetite and possible depression Mrs. Laureano is an 82-year-old woman who was admitted from a [facility] after hip fracture and surgery. After the surgery, she has been refusing to eat and seems to be more encephalopathic. pt has history of dementia with behavioral disturbances, has been placed on duloxetine and depakote on evaluation pt seen sleeping in bed, not responding to my questions, only opened her eyes few times pt appears to be oriented to person only with advanced dementia Past Patient History - Infectious Disease Hx of Infectious Diseases: None - Past Medical History & Family History Past Medical History?: Yes - Past Social History Smoking Status: Never Smoked Drugs: Other (no ETOH) Home Situation {Lives}: Residential - CARDIAC Hx Hypercholesterolemia: Yes Hx Hypertension: Yes - PULMONARY Hx Chronic Obstructive Pulmonary Disease (COPD): Yes - NEUROLOGICAL Hx Neurological Disorder: Yes Hx Dementia: Yes Hx Seizures: Yes - HEENT Hx HEENT Problems: No - RENAL Hx Chronic Kidney Disease: No - ENDOCRINE/METABOLIC Hx Endocrine Disorders: No - HEMATOLOGICAL/ONCOLOGICAL Hx Blood Disorders: No Hx Human Immunodeficiency Virus (HIV): No - INTEGUMENTARY Hx Dermatological Problems: No - MUSCULOSKELETAL/RHEUMATOLOGICAL Hx Arthritis: Yes - GASTROINTESTINAL Hx Gastrointestinal Disorders: Yes Hx Constipation: Yes - GENITOURINARY/GYNECOLOGICAL Hx Genitourinary Disorders: No Hx Incontinence: Yes - PSYCHIATRIC Hx Psychophysiologic Disorder: Yes Hx Anxiety: Yes Hx Depression: Yes - SURGICAL HISTORY Hx Surgeries: Yes Hx Tubal Ligation: Yes - ANESTHESIA Hx Anesthesia: Yes Hx Anesthesia Reactions: No Hx Malignant Hyperthermia: No Has any member of the family had a problem w/ anesthesia?: No Meds Allergies/Adverse Reactions: Allergies Allergy/AdvReac Type Severity Reaction Status Date / Time Penicillins Allergy RASH Verified 05/05/17 20:13 - Medications Medications: Current Medications Acetaminophen (Tylenol 325mg Tab) 650 mg PO Q6 PRN PRN Reason: Pain, Mild (1-3) Last Admin: 05/16/17 06:51 Dose: 650 mg Aspirin (Aspirin Chewable) 81 mg PO DAILY [facility] Last Admin: 05/10/17 09:29 Dose: Not Given Atorvastatin Calcium (Lipitor) 40 mg PO HS [facility] Last Admin: 05/19/17 21:22 Dose: 40 mg Bisacodyl (Dulcolax) 10 mg [place] Q48H PRN PRN Reason: Constipation Calcium/Vitamin D (Oyster Shell Calcium/Vitamin D 500 Mg-200 Iu) 1 tab PO DAILY [facility] Last Admin: 05/20/17 10:56 Dose: Not Given Cyanocobalamin (Vitamin B12 1000 Mcg/Ml Inj) 1,000 mcg IM Q30D [facility] Divalproex Sodium (Depakote Sprinkles) 125 mg PO DAILY [facility] Last Admin: 05/20/17 10:57 Dose: Not Given Duloxetine HCl (Cymbalta) 20 mg PO DAILY [facility] Last Admin: 05/20/17 10:57 Dose: Not Given Enoxaparin Sodium (Lovenox) 40 mg SC DAILY [facility] PRN Reason: Protocol Last Admin: 05/20/17 08:58 Dose: 40 mg Ergocalciferol (Drisdol 50,000 Intl Units Cap) 1 cap PO QWK [facility] Last Admin: 05/17/17 08:46 Dose: 1 cap Fentanyl (Duragesic) 1 patch TD Q3D [facility] PRN Reason: Protocol Last Admin: 05/17/17 17:27 Dose: 1 patch Gabapentin (Neurontin) 100 mg PO TID [facility] Last Admin: 05/20/17 12:32 Dose: 100 mg Clindamycin Phosphate (Cleocin In Normal Saline) 600 mg in 50 mls @ 50 mls/hr IVPB Q8H [facility] PRN Reason: Protocol Last Admin: 05/20/17 12:31 Dose: 50 mls/hr Dextrose/Sodium Chloride (Dextrose 5%/0.45% Ns 1000 Ml) 1,000 mls @ 60 mls/hr IV .[id number] [facility] Stop: 05/21/17 13:02 Lactulose (Enulose) 20 gm PO BID [facility] Last Admin: 05/20/17 10:57 Dose: Not Given Lamotrigine (Lamictal) 25 mg PO TID [facility] Last Admin: 05/20/17 12:32 Dose: 25 mg Magnesium Hydroxide (Milk Of Magnesia) 30 ml PO Q48H PRN PRN Reason: Constipation Meclizine HCl (Antivert) 12.5 mg PO TID [facility] Last Admin: 05/20/17 12:32 Dose: 12.5 mg Nitroglycerin (Nitro-Bid 2% Oint) 1 ea TOP Q6H [facility] Last Admin: 01/19/18 12:32 Dose: 1 ea Oxybutynin Chloride (Ditropan Tab) 5 mg PO TID [facility] Last Admin: 05/20/17 12:32 Dose: 5 mg Pantoprazole Sodium (Protonix Inj) 40 mg IVP DAILY [facility] Last Admin: 05/20/17 08:56 Dose: 40 mg Fluticasone/Salmeterol (Advair Diskus 500/50) 1 puff IH Q12 [facility] Last Admin: 05/20/17 08:40 Dose: Not Given Physical Exam - Psychiatric Exam Additional comments: pt seen in bed, very limited mvement very underproductive speech, appears confused and oriented to person only Results - Vital Signs Recent Vital Signs: Last Vital Signs Temp 98.5 F 05/20/17 08:13 Pulse 80 05/20/17 08:13 Resp 18 05/20/17 08:13 BP 126/56 L 05/20/17 08:13 Pulse Ox 95 05/20/17 08:13 - Labs Result Diagrams: 05/18/17 05:50 05/19/17 10:49 Labs: Laboratory Results - last 24 hr 05/19/17 10:49 Potassium 4.5 Anion Gap 8 L Assessment & Plan - Assessment and Plan (Free Text) Assessment: dementia severe rule out hypotonic delerium due encephalopathy Plan: as pt is presenting with decresed appetite recommend to discontinue duloxetine and to start remeron 7.5mg qhs for depression and to improve appetite
[2017-05-20] MEDS: Dextrose 5%/0.45% NS 1,000 ML IV SCH (14:53)
--- NOTE | 2017-05-20 15:01 | CT ---
PROCEDURE: CT HEAD WITHOUT CONTRAST. HISTORY: encephalopathy COMPARISON: None available. TECHNIQUE: Axial computed tomography images were obtained through the head/brain without intravenous contrast. Radiation dose: Total exam DLP = 954.10 mGy-cm. This CT exam was performed using one or more of the following dose reduction techniques: Automated exposure control, adjustment of the mA and/or kV according to patient size, and/or use of iterative reconstruction technique. FINDINGS: Examination limited by patient motion. Posterior fossa is most notably suboptimally evaluated. HEMORRHAGE: No intracranial hemorrhage. BRAIN: No mass effect or edema. Mild diffuse age-appropriate cerebral atrophy. Mild periventricular white matter lucency consistent with chronic microvascular ischemic change. No evidence of acute infarct. VENTRICLES: Unremarkable. No hydrocephalus. CALVARIUM: Unremarkable. PARANASAL SINUSES: Chronic sphenoid sinusitis MASTOID AIR CELLS: Unremarkable as visualized. No inflammatory changes. OTHER FINDINGS: None. IMPRESSION: No intracranial mass, hemorrhage or evidence of acute infarct. Age-appropriate involutional change. Limited examination as above. Mild chronic sphenoid sinusitis.
--- NOTE | 2017-05-20 15:50 | CP.PCM.PN ---
Subjective - Date & Time of Evaluation Date of Evaluation: 05/20/17 Time of Evaluation: 13:30 - Subjective Subjective: F/U ORIF L Hip Awake, confused, mumbling sound. Objective - Vital Signs/Intake and Output Vital Signs (last 24 hours): Temp Pulse Resp BP Pulse Ox 97.6 F 95 H 20 134/76 95 05/20/17 15:43 05/20/17 15:43 05/20/17 15:43 05/20/17 15:43 05/20/17 15:43 - Medications Medications: Current Medications Acetaminophen (Tylenol 325mg Tab) 650 mg PO Q6 PRN PRN Reason: Pain, Mild (1-3) Last Admin: 05/16/17 06:51 Dose: 650 mg Aspirin (Aspirin Chewable) 81 mg PO DAILY [facility] Last Admin: 05/10/17 09:29 Dose: Not Given Atorvastatin Calcium (Lipitor) 40 mg PO HS [facility] Last Admin: 05/19/17 21:22 Dose: 40 mg Bisacodyl (Dulcolax) 10 mg [place] Q48H PRN PRN Reason: Constipation Calcium/Vitamin D (Oyster Shell Calcium/Vitamin D 500 Mg-200 Iu) 1 tab PO DAILY [facility] Last Admin: 05/20/17 10:56 Dose: Not Given Cyanocobalamin (Vitamin B12 1000 Mcg/Ml Inj) 1,000 mcg IM Q30D [facility] Divalproex Sodium (Depakote Sprinkles) 125 mg PO DAILY [facility] Last Admin: 05/20/17 10:57 Dose: Not Given Duloxetine HCl (Cymbalta) 20 mg PO DAILY [facility] Last Admin: 05/20/17 10:57 Dose: Not Given Enoxaparin Sodium (Lovenox) 40 mg SC DAILY [facility] PRN Reason: Protocol Last Admin: 05/20/17 08:58 Dose: 40 mg Ergocalciferol (Drisdol 50,000 Intl Units Cap) 1 cap PO QWK [facility] Last Admin: 05/17/17 08:46 Dose: 1 cap Fentanyl (Duragesic) 1 patch TD Q3D [facility] PRN Reason: Protocol Last Admin: 05/20/17 14:53 Dose: 1 patch Gabapentin (Neurontin) 100 mg PO TID [facility] Last Admin: 05/20/17 12:32 Dose: 100 mg Dextrose/Sodium Chloride (Dextrose 5%/0.45% Ns 1000 Ml) 1,000 mls @ 60 mls/hr IV .[id number] [facility] Stop: 05/21/17 13:02 Last Admin: 05/20/17 14:53 Dose: 60 mls/hr Lactulose (Enulose) 20 gm PO BID [facility] Last Admin: 05/20/17 10:57 Dose: Not Given Lamotrigine (Lamictal) 25 mg PO TID [facility] Last Admin: 05/20/17 12:32 Dose: 25 mg Magnesium Hydroxide (Milk Of Magnesia) 30 ml PO Q48H PRN PRN Reason: Constipation Meclizine HCl (Antivert) 12.5 mg PO TID [facility] Last Admin: 05/20/17 12:32 Dose: 12.5 mg Nitroglycerin (Nitro-Bid 2% Oint) 1 ea TOP Q6H [facility] Last Admin: 05/20/17 12:32 Dose: 1 ea Oxybutynin Chloride (Ditropan Tab) 5 mg PO TID [facility] Last Admin: 05/20/17 12:32 Dose: 5 mg Pantoprazole Sodium (Protonix Inj) 40 mg IVP DAILY [facility] Last Admin: 05/20/17 08:56 Dose: 40 mg Fluticasone/Salmeterol (Advair Diskus 500/50) 1 puff IH Q12 [facility] Last Admin: 05/20/17 08:40 Dose: Not Given - Labs Labs: 05/18/17 05:50 05/19/17 10:49 PT 13.6 Seconds (9.8-13.1) H 05/11/17 05:45 INR 1.2 (0.9-1.2) 05/11/17 05:45 APTT 29.4 Seconds (25.6-37.1) 05/11/17 05:45 - Constitutional Appears: No Acute Distress, Chronically Ill - Head Exam Head Exam: NORMAL INSPECTION - Eye Exam Eye Exam: PERRL - ENT Exam ENT Exam: Normal Exam - Neck Exam Neck Exam: Normal Inspection - Respiratory Exam Respiratory Exam: Decreased Breath Sounds (at bases) - Cardiovascular Exam Cardiovascular Exam: REGULAR RHYTHM, Murmur (systolic 2/6 LSB) - GI/Abdominal Exam GI & Abdominal Exam: Soft, Normal Bowel Sounds. absent: Guarding, Rebound - Extremities Exam Extremities Exam: Tenderness (L hip, dressing in place) Additional comments: Neuromuscular status distal good. 1+ non pitting edema L/E - Back Exam Back Exam: tenderness (mild) - Neurological Exam Neurological Exam: Awake, CN II-XII Intact Additional comments: Confused, generalized weakness. - Psychiatric Exam Psychiatric exam: Anxious - Skin Skin Exam: Warm Assessment and Plan (1) Displaced intertrochanteric fracture of left femur Status: Acute (2) Hip fracture, left Status: Acute (3) Back pain Status: Chronic (4) Compression fracture Status: Chronic (5) Constipation Status: Acute (6) COPD (chronic obstructive pulmonary disease) Status: Acute (7) Seizure Status: Chronic (8) HTN (hypertension) Status: Acute (9) High cholesterol Status: Acute (10) Vitamin D deficiency Status: Resolved (11) Thrombocytopenia Status: Chronic (12) Anemia Status: Acute (13) Dementia Status: Chronic
[2017-05-21] MEDS: Nitroglycerin 2% Ointment Foilpak UD TOP SCH ×3 (05:54→12:06)
[2017-05-21] MEDS: Dextrose 5%/0.45% NS 1,000 ML IV SCH (06:47)
[2017-05-21] MEDS: Fluticasone-Salmeterol 500-50mcg Diskus IH SCH ×2 (09:10→20:58)
[2017-05-21] MEDS: Divalproex 125 mg Sprinkle Capsule PO SCH (09:11)
[2017-05-21] MEDS: Enoxaparin 40 mg Syringe SC SCH (09:11)
[2017-05-21] MEDS: Calcium-Vit D 500 mg-200 Units Tab UD PO SCH (09:11)
--- NOTE | 2017-05-21 18:20 | CP.PCM.PN ---
Subjective - Date & Time of Evaluation Date of Evaluation: 05/21/17 Time of Evaluation: 15:30 - Subjective Subjective: S/P ORIF L Hip Pain in L hip, confused, refusing fluid, meals and medications. Objective - Vital Signs/Intake and Output Vital Signs (last 24 hours): Temp Pulse Resp BP Pulse Ox 98.1 F 95 H 20 133/77 96 05/21/17 16:12 05/21/17 16:12 05/21/17 16:12 05/21/17 16:12 05/21/17 16:12 - Medications Medications: Current Medications Acetaminophen (Tylenol 325mg Tab) 650 mg PO Q6 PRN PRN Reason: Pain, Mild (1-3) Last Admin: 05/21/17 17:54 Dose: 650 mg Aspirin (Aspirin Chewable) 81 mg PO DAILY [facility] Last Admin: 05/10/17 09:29 Dose: Not Given Atorvastatin Calcium (Lipitor) 40 mg PO HS [facility] Last Admin: 05/20/17 22:08 Dose: 40 mg Bisacodyl (Dulcolax) 10 mg [place] Q48H PRN PRN Reason: Constipation Calcium/Vitamin D (Oyster Shell Calcium/Vitamin D 500 Mg-200 Iu) 1 tab PO DAILY [facility] Last Admin: 05/21/17 09:11 Dose: 1 tab Cyanocobalamin (Vitamin B12 1000 Mcg/Ml Inj) 1,000 mcg IM Q30D [facility] Divalproex Sodium (Depakote Sprinkles) 125 mg PO DAILY [facility] Last Admin: 05/21/17 09:11 Dose: 125 mg Duloxetine HCl (Cymbalta) 20 mg PO DAILY [facility] Last Admin: 05/21/17 09:10 Dose: 20 mg Enoxaparin Sodium (Lovenox) 40 mg SC DAILY [facility] PRN Reason: Protocol Last Admin: 05/21/17 09:11 Dose: 40 mg Ergocalciferol (Drisdol 50,000 Intl Units Cap) 1 cap PO QWK [facility] Last Admin: 05/17/17 08:46 Dose: 1 cap Fentanyl (Duragesic) 1 patch TD Q3D [facility] PRN Reason: Protocol Last Admin: 05/20/17 14:53 Dose: 1 patch Gabapentin (Neurontin) 100 mg PO TID [facility] Last Admin: 05/21/17 16:29 Dose: 100 mg Lactulose (Enulose) 20 gm PO BID [facility] Last Admin: 05/21/17 16:30 Dose: 20 gm Lamotrigine (Lamictal) 25 mg PO TID [facility] Last Admin: 05/21/17 16:29 Dose: 25 mg Magnesium Hydroxide (Milk Of Magnesia) 30 ml PO Q48H PRN PRN Reason: Constipation Meclizine HCl (Antivert) 12.5 mg PO TID [facility] Last Admin: 05/21/17 16:30 Dose: 12.5 mg Nitroglycerin (Nitro-Bid 2% Oint) 1 ea TOP Q6H [facility] Last Admin: 05/21/17 12:06 Dose: 1 ea Oxybutynin Chloride (Ditropan Tab) 5 mg PO TID [facility] Last Admin: 05/21/17 16:29 Dose: 5 mg Pantoprazole Sodium (Protonix Inj) 40 mg IVP DAILY [facility] Last Admin: 05/21/17 09:11 Dose: 40 mg Fluticasone/Salmeterol (Advair Diskus 500/50) 1 puff IH Q12 [facility] Last Admin: 05/21/17 09:10 Dose: 1 puff - Labs Labs: 05/18/17 05:50 05/19/17 10:49 PT 13.6 Seconds (9.8-13.1) H 05/11/17 05:45 INR 1.2 (0.9-1.2) 05/11/17 05:45 APTT 29.4 Seconds (25.6-37.1) 05/11/17 05:45 - Constitutional Appears: Chronically Ill - Head Exam Head Exam: NORMAL INSPECTION - Eye Exam Eye Exam: PERRL - ENT Exam ENT Exam: Normal Exam - Neck Exam Neck Exam: Normal Inspection - Respiratory Exam Respiratory Exam: Decreased Breath Sounds (at bases) - Cardiovascular Exam Cardiovascular Exam: REGULAR RHYTHM, Murmur (systolic 2/6LSB) - GI/Abdominal Exam GI & Abdominal Exam: Soft, Normal Bowel Sounds - Extremities Exam Extremities Exam: Tenderness (L hip, dressing in place, neuromuascular status distal good) - Back Exam Back Exam: tenderness (mild) - Neurological Exam Neurological Exam: Awake, CN II-XII Intact Additional comments: Generalized weakness. - Psychiatric Exam Psychiatric exam: Anxious - Skin Skin Exam: Warm Assessment and Plan (1) Displaced intertrochanteric fracture of left femur Status: Acute (2) Hip fracture, left Status: Acute (3) Back pain Status: Chronic (4) Compression fracture Status: Chronic (5) Constipation Status: Acute (6) COPD (chronic obstructive pulmonary disease) Status: Acute (7) Seizure Status: Chronic (8) HTN (hypertension) Status: Acute (9) High cholesterol Status: Acute (10) Vitamin D deficiency Status: Resolved (11) Thrombocytopenia Status: Chronic (12) Anemia Status: Acute (13) Dementia Status: Chronic - Assessment and Plan (Free Text) Plan: Continue IV fluid and rest of Tx.
[2017-05-22] MEDS: Nitroglycerin 2% Ointment Foilpak UD TOP SCH ×4 (00:10→18:38)
[2017-05-22] MEDS: Divalproex 125 mg Sprinkle Capsule PO SCH (09:12)
[2017-05-22] MEDS: Enoxaparin 40 mg Syringe SC SCH (09:13)
[2017-05-22] MEDS: Calcium-Vit D 500 mg-200 Units Tab UD PO SCH (09:14)
[2017-05-22] MEDS: Fluticasone-Salmeterol 500-50mcg Diskus IH SCH ×2 (09:19→21:45)
[2017-05-22 10:20] LABS: BASO % 0.9 % (0.0-2.0); EOS # 0.3 K/uL (0.0-0.7); EOS % 5.7 % (0.0-4.0); HEMOGLOBIN 10.5 g/dL (12.0-16.0); LYMPH # 0.6 K/uL (1.0-4.3); LYMPH % 11.4 % (20.0-40.0); MEAN CELL VOLUME 87.2 fl (81.0-99.0); MEAN CORPUSCULAR HEMOGLOBIN 28.4 pg (27.0-31.0); MEAN CORPUSCULAR HGB CONC 32.6 g/dL (33.0-37.0); MEAN PLATELET VOLUME 8.2 fl (7.2-11.7); MONO # 0.5 K/uL (0.0-0.8); MONO % 10.2 % (0.0-10.0); NEUT # 3.6 K/uL (1.8-7.0); NEUT % 71.8 % (50.0-75.0); RBC 3.7 Mil/uL (3.80-5.20); RED CELL DISTRIBUTION WIDTH 15.2 % (11.5-14.5)
[2017-05-22 10:50] LABS: ALB/GLOB RATIO 0.9 (1.0-2.1); ALBUMIN 3.1 g/dL (3.5-5.0); ALT/SGPT 43 U/L (9-52); AST/SGOT 22 U/L (14-36); BLOOD UREA NITROGEN 3 mg/dl (7-17); GFR AFRICAN-AMERICAN > 60; GFR NON-AFRICAN AMERICAN > 60
--- NOTE | 2017-05-22 15:29 | CP.PCM.PN ---
Subjective - Date & Time of Evaluation Date of Evaluation: 05/22/17 - Subjective Subjective: S/P ORIF L Hip Pt appear more alert today, was able with difficulty to give medications and a little big of breakfast, c/o pain in the L hip. Objective - Vital Signs/Intake and Output Vital Signs (last 24 hours): Temp Pulse Resp BP Pulse Ox 98.4 F 71 18 128/68 98 05/22/17 09:00 05/22/17 13:40 05/22/17 09:00 05/22/17 13:40 05/22/17 09:00 - Medications Medications: Current Medications Acetaminophen (Tylenol 325mg Tab) 650 mg PO Q6 PRN PRN Reason: Pain, Mild (1-3) Last Admin: 05/22/17 01:02 Dose: 650 mg Aspirin (Aspirin Chewable) 81 mg PO DAILY [facility] Last Admin: 05/10/17 09:29 Dose: Not Given Atorvastatin Calcium (Lipitor) 40 mg PO HS [facility] Last Admin: 05/21/17 20:59 Dose: 40 mg Bisacodyl (Dulcolax) 10 mg [place] Q48H PRN PRN Reason: Constipation Calcium/Vitamin D (Oyster Shell Calcium/Vitamin D 500 Mg-200 Iu) 1 tab PO DAILY [facility] Last Admin: 05/22/17 09:14 Dose: 1 tab Cyanocobalamin (Vitamin B12 1000 Mcg/Ml Inj) 1,000 mcg IM Q30D [facility] Divalproex Sodium (Depakote Sprinkles) 125 mg PO DAILY [facility] Last Admin: 05/22/17 09:12 Dose: 125 mg Duloxetine HCl (Cymbalta) 20 mg PO DAILY [facility] Last Admin: 05/22/17 09:12 Dose: 20 mg Enoxaparin Sodium (Lovenox) 40 mg SC DAILY [facility] PRN Reason: Protocol Last Admin: 05/22/17 09:13 Dose: 40 mg Ergocalciferol (Drisdol 50,000 Intl Units Cap) 1 cap PO QWK [facility] Last Admin: 05/17/17 08:46 Dose: 1 cap Gabapentin (Neurontin) 100 mg PO TID [facility] Last Admin: 05/22/17 13:36 Dose: 100 mg Lactulose (Enulose) 20 gm PO BID [facility] Last Admin: 05/22/17 13:35 Dose: 20 gm Lamotrigine (Lamictal) 25 mg PO TID [facility] Last Admin: 05/22/17 13:36 Dose: 25 mg Magnesium Hydroxide (Milk Of Magnesia) 30 ml PO Q48H PRN PRN Reason: Constipation Meclizine HCl (Antivert) 12.5 mg PO TID [facility] Last Admin: 05/22/17 13:35 Dose: 12.5 mg Nitroglycerin (Nitro-Bid 2% Oint) 1 ea TOP Q6H [facility] Last Admin: 05/22/17 13:40 Dose: 1 ea Oxybutynin Chloride (Ditropan Tab) 5 mg PO TID [facility] Last Admin: 05/22/17 13:35 Dose: 5 mg Pantoprazole Sodium (Protonix Inj) 40 mg IVP DAILY [facility] Last Admin: 05/22/17 09:17 Dose: 40 mg Fluticasone/Salmeterol (Advair Diskus 500/50) 1 puff IH Q12 [facility] Last Admin: 05/22/17 09:19 Dose: 1 puff - Labs Labs: 05/22/17 10:10 05/22/17 10:10 PT 13.6 Seconds (9.8-13.1) H 05/11/17 05:45 INR 1.2 (0.9-1.2) 05/11/17 05:45 APTT 29.4 Seconds (25.6-37.1) 05/11/17 05:45 - Constitutional Appears: No Acute Distress - Head Exam Head Exam: NORMAL INSPECTION - Eye Exam Eye Exam: PERRL - ENT Exam ENT Exam: Normal Exam - Neck Exam Neck Exam: Normal Inspection - Respiratory Exam Respiratory Exam: Decreased Breath Sounds (at bases) - Cardiovascular Exam Cardiovascular Exam: REGULAR RHYTHM, Murmur (systolic 2/6 LSB) - GI/Abdominal Exam GI & Abdominal Exam: Soft, Normal Bowel Sounds - Extremities Exam Extremities Exam: Tenderness (L hip, neuromuscular distal status good.) - Back Exam Back Exam: tenderness (mild) - Neurological Exam Neurological Exam: Awake, CN II-XII Intact Additional comments: Generalized weakness. - Psychiatric Exam Psychiatric exam: Anxious - Skin Skin Exam: Warm Assessment and Plan (1) Displaced intertrochanteric fracture of left femur Status: Acute (2) Hip fracture, left Status: Acute (3) Back pain Status: Chronic (4) Compression fracture Status: Chronic (5) Constipation Status: Acute (6) COPD (chronic obstructive pulmonary disease) Status: Acute (7) Seizure Status: Chronic (8) HTN (hypertension) Status: Acute (9) High cholesterol Status: Acute (10) Vitamin D deficiency Status: Resolved (11) Thrombocytopenia Status: Chronic (12) Anemia Status: Acute (13) Dementia Status: Chronic - Assessment and Plan (Free Text) Plan: Monitor fluid and po medications, continue current Tx.
[2017-05-22] MEDS ORDERED: Povidone Iodine Topical 10% Sol ONE (16:37)
[2017-05-22] MEDS: Potassium Ch 20mEq in D5-1/2NS 1,000 ML IV SCH (18:35)
[2017-05-23] MEDS: Nitroglycerin 2% Ointment Foilpak UD TOP SCH ×2 (00:30→06:12)
[2017-05-23 08:46] VITALS: BP 111/51; PULSE 63; RESP 20; TEMP 97.6; O2SAT 93
[2017-05-23] MEDS: Fluticasone-Salmeterol 500-50mcg Diskus IH SCH (09:16)
[2017-05-23] MEDS: Divalproex 125 mg Sprinkle Capsule PO SCH (09:17)
[2017-05-23] MEDS: Enoxaparin 40 mg Syringe SC SCH (09:19)
[2017-05-23] MEDS: Calcium-Vit D 500 mg-200 Units Tab UD PO SCH (09:20)
[2017-05-23 09:22] LABS: BLOOD UREA NITROGEN 6 mg/dl (7-17); CALCIUM 9.2 mg/dL (8.4-10.2); GFR AFRICAN-AMERICAN > 60; GFR NON-AFRICAN AMERICAN > 60
[2017-05-23] MEDS: Potassium Ch 20mEq in D5-1/2NS 1,000 ML IV SCH (09:24)
--- NOTE | 2017-05-23 12:50 | CP.PCM.DIS ---
Provider - Provider Date of Admission: 05/05/17 23:37 Attending physician: Sj Lara MD Diagnosis - Discharge Diagnosis (1) Displaced intertrochanteric fracture of left femur Status: Acute (2) Hip fracture, left Status: Acute (3) Back pain Status: Chronic Priority: High (4) Compression fracture Status: Chronic (5) Constipation Status: Acute (6) COPD (chronic obstructive pulmonary disease) Status: Acute (7) Seizure Status: Chronic (8) HTN (hypertension) Status: Acute (9) High cholesterol Status: Acute (10) Vitamin D deficiency Status: Resolved (11) Thrombocytopenia Status: Chronic (12) Anemia Status: Acute (13) Dementia Status: Chronic Hospital Course - Lab Results Lab Results: Micro Results 05/13/17 07:28 Naris MRSA Culture (Admit) - Final MRSA NOT DETECTED 05/11/17 06:14 Naris MRSA Culture (Admit) - Final MRSA NOT DETECTED 05/05/17 23:45 Urine,Clean Catch Urine Culture - Final No Growth (<1,000 CFU/ML) Most Recent Lab Values WBC 5.0 K/uL (4.8-10.8) 05/22/17 10:10 RBC 3.70 Mil/uL (3.80-5.20) L 05/22/17 10:10 Hgb 10.5 g/dL (12.0-16.0) L 05/22/17 10:10 Hct 32.3 % (34.0-47.0) L 05/22/17 10:10 MCV 87.2 fl (81.0-99.0) 05/22/17 10:10 MCH 28.4 pg (27.0-31.0) 05/22/17 10:10 MCHC 32.6 g/dL (33.0-37.0) L 05/22/17 10:10 RDW 15.2 % (11.5-14.5) H 05/22/17 10:10 Plt Count 211 K/uL (130-400) 05/22/17 10:10 Manual Plt Count 125 K/uL (130-400) L 05/11/17 05:45 MPV 8.2 fl (7.2-11.7) 05/22/17 10:10 Neut % (Auto) 71.8 % (50.0-75.0) 05/22/17 10:10 Lymph % (Auto) 11.4 % (20.0-40.0) L 05/22/17 10:10 [place] % (Auto) 10.2 % (0.0-10.0) H 05/22/17 10:10 Eos % (Auto) 5.7 % (0.0-4.0) H 05/22/17 10:10 Baso % (Auto) 0.9 % (0.0-2.0) 05/22/17 10:10 Neut # 3.6 K/uL (1.8-7.0) 05/22/17 10:10 Lymph # 0.6 K/uL (1.0-4.3) L 05/22/17 10:10 [place] # 0.5 K/uL (0.0-0.8) 05/22/17 10:10 Eos # 0.3 K/uL (0.0-0.7) 05/22/17 10:10 Baso # 0.0 K/uL (0.0-0.2) 05/22/17 10:10 PT 13.6 Seconds (9.8-13.1) H 05/11/17 05:45 INR 1.2 (0.9-1.2) 05/11/17 05:45 APTT 29.4 Seconds (25.6-37.1) 05/11/17 05:45 Sodium 141 mmol/l (132-148) 05/23/17 08:40 Potassium 3.5 MMOL/L (3.6-5.0) L 05/23/17 08:40 Chloride 100 mmol/L (98-107) 05/23/17 08:40 Carbon Dioxide 31 mmol/L (22-30) H 05/23/17 08:40 Anion Gap 14 (10-20) 05/23/17 08:40 BUN 6 mg/dl (7-17) L 05/23/17 08:40 Creatinine 0.4 mg/dl (0.7-1.2) L 05/23/17 08:40 Est GFR ( Amer) > 60 05/23/17 08:40 Est GFR (Non-Af Amer) > 60 05/23/17 08:40 POC Glucose (mg/dL) 152 mg/dL (65-110) H 05/05/17 22:29 Random Glucose 120 mg/dL (65-105) H 05/23/17 08:40 Hemoglobin A1c 5.7 % (4.2-6.5) 05/07/17 05:30 Uric Acid 1.8 mg/Dl (2.2-7.5) L 05/06/17 05:00 Calcium 9.2 mg/dL (8.4-10.2) 05/23/17 08:40 Total Bilirubin 1.1 mg/dl (0.2-1.3) 05/22/17 10:10 AST 22 U/L (14-36) 05/22/17 10:10 ALT 43 U/L (9-52) 05/22/17 10:10 Alkaline Phosphatase 108 U/L (38-126) 05/22/17 10:10 Troponin I < 0.0120 ng/mL (0.00-0.120) 05/05/17 21:25 NT-Pro-B Natriuret Pep 289 pg/ml (0-900) 05/12/17 11:35 Total Protein 6.3 G/DL (6.3-8.2) 05/22/17 10:10 Albumin 3.1 g/dL (3.5-5.0) L 05/22/17 10:10 Globulin 3.3 gm/dL (2.2-3.9) 05/22/17 10:10 Albumin/Globulin Ratio 0.9 (1.0-2.1) L 05/22/17 10:10 Triglycerides 26 mg/DL (0-149) D 05/06/17 05:00 Cholesterol 125 mg/dL (0-199) 05/06/17 05:00 LDL Cholesterol Direct 50 mg/dL (0-129) 05/06/17 05:00 HDL Cholesterol 51 MG/DL (30-70) 05/06/17 05:00 Thyroxine (T4) 7.94 ug/dl (5.5-11.0) 05/06/17 05:00 TSH 3rd Generation 0.65 mIU/ML (0.46-4.68) 05/06/17 05:00 Urine Color Yellow (YELLOW) 05/06/17 00:00 Urine Clarity Slighty-cloudy (Clear) 05/06/17 00:00 Urine pH 6.0 (5.0-8.0) 05/06/17 00:00 Ur Specific [place] 1.024 (1.003-1.030) 05/06/17 00:00 Urine Protein 30 mg/dL (NEGATIVE) 05/06/17 00:00 Urine Glucose (UA) Neg mg/dL (Normal) 05/06/17 00:00 Urine Ketones 20 mg/dL (NEGATIVE) 05/06/17 00:00 Urine Blood Negative (NEGATIVE) 05/06/17 00:00 Urine Nitrate Negative (NEGATIVE) 05/06/17 00:00 Urine Bilirubin Negative (NEGATIVE) 05/06/17 00:00 Urine Urobilinogen 4.0 mg/dL (0.2-1.0) H 05/06/17 00:00 Ur Leukocyte Esterase Small Suhas/uL (Negative) 05/06/17 00:00 Urine RBC (Auto) 1 /hpf (0-3) 05/06/17 00:00 Urine Microscopic WBC 11 /hpf (0-5) H 05/06/17 00:00 Ur Squamous Epith Cells 3 /hpf (0-5) 05/06/17 00:00 Urine Bacteria Occ (<OCC) H 05/06/17 00:00 Hyaline Casts 0-2 /hpf (0-2) 05/06/17 00:00 Blood Type O POSITIVE 05/09/17 05:35 Blood Type Confirm O POSITIVE 05/09/17 07:30 Antibody Screen Negative 05/09/17 05:35 Crossmatch See Detail 05/09/17 05:35 BBK History Checked No verified bt 05/09/17 05:35 - Hospital Course Hospital Course: 82 yrs old female [place] resident, Patient fell , She was transfered to ER [facility] X ray L Hip intertrocanteric L Hip Fx, OR Cardiac clearance Dr Varghese Pharmacological STT negative, Patient with Anemia , Thrombocytopenia , Hematology netsuite consultant transfused Platelet prior OR , 05-11-[address] Barboza OR : ORIF displaced conminuted interthrocanteric Fx. Patient had uneventful recovery post op but was not eating taking fluids and refusing medications , GI netsuite consultant Dr Hackett was called for possible PEG tube insertion, Neurology consult Encephalopaty , repeat CT Head no acute infarct , chronic changes. Patient gradually recovered and was taking fluids ,meals and meds and was discharged to [facility] in improved and stable condition, see MAR , I will follow patient in this Facility. - Date & Time of H&P Date of H&P: 05/06/17 Time of H&P: 15:00 Discharge Exam - Head Exam Head Exam: NORMAL INSPECTION - Eye Exam Eye Exam: PERRL - ENT Exam ENT Exam: Normal Exam - Neck Exam Neck exam: Normal Inspection - Respiratory Exam Respiratory Exam: Decreased Breath Sounds (at bases) - Cardiovascular Exam Cardiovascular Exam: REGULAR RHYTHM, Systolic Murmur - GI/Abdominal Exam GI & Abdominal Exam: Normal Bowel Sounds, Soft - Extremities Exam Extremities exam: tenderness (L Hip) Additional comments: surgical incisions L Hip healing well , neuromuscular status distal good , shoulders tenderness - Back Exam Back exam: tenderness (mild) - Neurological Exam Neurological exam: Alert, CN II-XII Intact Additional comments: answering questions ,asking for food and water, generalized weakness no focal motor/sensory deficit - Skin Skin Exam: Warm Discharge Plan - Follow Up Plan Condition: FAIR Disposition: TRANSF TO SNF
== END 2017-05-23 15:30 | DRG 480 ==
LOC: H.ER 20:10 → H.ERHOLD 23:37 → H.MEDSURG1 05-06 00:53 → H.ICU/CCU 05-11 18:07 → H.MEDSURG1 05-12 23:10
PROVIDERS: ADMIT Internal Medicine Pulmonary Disease; ATTEND Internal Medicine Pulmonary Disease
PROC: 30233N1 Transfusion of Nonautologous Red Blood Cells into Peripheral Vein, Percutaneous Approach (ICD-10-PCS; 2017-05-09)
PROC: 30233R1 Transfusion of Nonautologous Platelets into Peripheral Vein, Percutaneous Approach (ICD-10-PCS; 2017-05-11)
PROC: 0QS704Z Reposition Left Upper Femur with Internal Fixation Device, Open Approach (ICD-10-PCS; principal; 2017-05-11 13:30)
DX: S72.142A Displaced intertrochanteric fracture of left femur, initial encounter for closed fracture (principal); J96.90 Respiratory failure, unspecified, unspecified whether with hypoxia or hypercapnia; G93.40 Encephalopathy, unspecified; S06.0X9A Concussion with loss of consciousness of unspecified duration, initial encounter; D69.6 Thrombocytopenia, unspecified; R13.10 Dysphagia, unspecified; N39.0 Urinary tract infection, site not specified; F32.9 Major depressive disorder, single episode, unspecified; Z79.899 Other long term (current) drug therapy; Y92.129 Unspecified place in nursing home as the place of occurrence of the external cause; Z99.3 Dependence on wheelchair; F41.9 Anxiety disorder, unspecified; F45.9 Somatoform disorder, unspecified; M19.90 Unspecified osteoarthritis, unspecified site; R32 Unspecified urinary incontinence; W05.0XXA Fall from non-moving wheelchair, initial encounter; M54.9 Dorsalgia, unspecified; R63.0 Anorexia; D64.9 Anemia, unspecified; E55.9 Vitamin D deficiency, unspecified; E78.00 Pure hypercholesterolemia, unspecified; E78.5 Hyperlipidemia, unspecified; F03.90 Unspecified dementia, unspecified severity, without behavioral disturbance, psychotic disturbance, mood disturbance, and anxiety; G40.909 Epilepsy, unspecified, not intractable, without status epilepticus; I10 Essential (primary) hypertension; J44.9 Chronic obstructive pulmonary disease, unspecified; K59.00 Constipation, unspecified; M81.0 Age-related osteoporosis without current pathological fracture; R62.7 Adult failure to thrive

== ENCOUNTER 2017-05-25 12:06 | Inpatient (IN) | payer MEDICARE, MEDICAID ==
[2017-05-25 12:07] VITALS: BMI 25.6
[2017-05-25] MEDS ORDERED: Sodium Chloride 0.9% 1,000 ML IV STA ×2 (12:29→17:14)
--- NOTE | 2017-05-25 13:12 | RAD ---
HISTORY: Sepsis Patient COMPARISON: 05/12/2017 and 05/07/2017 FINDINGS: LUNGS: Bilateral shallow lung volumes and interval increased bibasilar discoid atelectasis. Concomitant small patchy infiltrates at both lung bases not excluded. Chronically prominent diffuse mild interstitial lung markings Study rotated towards the right PLEURA: . No pneumothorax apparent. Bilateral inferolateral pleural thickening. Probable minimal bilateral pleural effusions. CARDIOVASCULAR: Cardiomegaly OSSEOUS STRUCTURES: Thoraco lumbar level cement kyphoplasty changes VISUALIZED UPPER ABDOMEN: Normal. OTHER FINDINGS: None. IMPRESSION: Interval increase bibasilar discoid atelectasis. Concomitant small patchy infiltrates at both lung bases not excluded. Chronically prominent diffuse mild interstitial lung markings
[2017-05-25 13:22] LABS: VENOUS BLOOD GAS PCO2 40 mmHg (40-60); VENOUS BLOOD GAS PO2 46 mm/Hg (30-55); VENOUS BLOOD PH 7.52 (7.32-7.43)
[2017-05-25 13:39] LABS: ALBUMIN 3.8 g/dL (3.5-5.0); ALT/SGPT 26 U/L (9-52); AST/SGOT 52 U/L (14-36); BLOOD UREA NITROGEN 19 mg/dl (7-17); CALCIUM 9.5 mg/dL (8.4-10.2); GFR AFRICAN-AMERICAN > 60; GFR NON-AFRICAN AMERICAN > 60; MAGNESIUM 2.4 MG/DL (1.6-2.3)
[2017-05-25 14:08] LABS: INR 1.8 (0.9-1.2); PARTIAL THROMBOPLASTIN TIME 26.4 Seconds (25.6-37.1); PROTHROMBIN TIME 20.5 Seconds (9.8-13.1)
[2017-05-25 14:11] LABS: BASO # 0.1 K/uL (0.0-0.2); BASO % 0.5 % (0.0-2.0); HEMOGLOBIN 11.8 g/dL (12.0-16.0); LYMPH # 0.7 K/uL (1.0-4.3); LYMPH % 2.5 % (20.0-40.0); MEAN CELL VOLUME 87.9 fl (81.0-99.0); MEAN CORPUSCULAR HEMOGLOBIN 27.8 pg (27.0-31.0); MEAN CORPUSCULAR HGB CONC 31.7 g/dL (33.0-37.0); MEAN PLATELET VOLUME 8.9 fl (7.2-11.7); MONO # 2.1 K/uL (0.0-0.8); MONO % 8.1 % (0.0-10.0); NEUT # 23.2 K/uL (1.8-7.0); NEUT % 88.9 % (50.0-75.0); PLATELET COUNT 232 K/uL (130-400); RBC 4.25 Mil/uL (3.80-5.20); RED CELL DISTRIBUTION WIDTH 15.8 % (11.5-14.5)
[2017-05-25 14:17] LABS: WHITE BLOOD COUNT 26.1 K/uL (4.8-10.8)
[2017-05-25] MEDS ORDERED: Sodium Chloride 0.9% 50 ML IV ONE (14:36)
[2017-05-25] MEDS ORDERED: Iodixanol 320 MG/ML 100 ML BOTTLE IV ONE (14:36)
--- NOTE | 2017-05-25 16:03 | CT ---
PROCEDURE: CT Chest with contrast (Pulmonary Angiogram) HISTORY: Fever, tachy COMPARISON: 10/25/2016 TECHNIQUE: Axial computed tomography images were obtained of the chest in the pulmonary arterial phase of enhancement. Coronal and sagittal reformatted images were created and reviewed. Intravenous contrast dose: 100 cc Visipaque 320 Radiation dose: Total exam DLP = 829.92 mGy-cm. This CT exam was performed using one or more of the following dose reduction techniques: Automated exposure control, adjustment of the mA and/or kV according to patient size, and/or use of iterative reconstruction technique. FINDINGS: PULMONARY ARTERIES: Unremarkable. No pulmonary embolism. AORTA: No acute findings. No thoracic aortic aneurysm. LUNGS: Trace bilateral pleural effusion and lower lobe subsegmental atelectasis, possibly compressive atelectasis secondary to the pleural effusions. No magdalena pulmonary infiltrate. No pulmonary mass. PLEURAL SPACES: As above, trace bilateral pleural effusion. No pneumothorax. HEART: Mild cardiomegaly. Coronary arterial calcification. No mediastinal lymphadenopathy. Nodular sub carinal calcification consistent with calcified old granulomatous disease. Rounded low-density anterior mediastinal mass now measures 1.3 cm in the transverse plane, previously 1.8 cm. It measures 24 Hounsfield units. This is slightly higher in attenuation than on prior examination. Nevertheless, given the attenuation of -[address], likely small mediastinal cyst of uncertain significance, decreasing in size. No other mediastinal mass identified. . LYMPH NODES: No lymphadenopathy. BONES, CHEST WALL: Multiple lower thoracic vertebral compression fractures unchanged from prior CT examination. Most severe compression deformity at T12. There is also compression deformity of the T10 and T11 vertebra. There is minimal increase in compression deformity of the T9 vertebra. There is mild central compression deformity of the T5 and T6 vertebrae. In retrospect, this was present on prior examination as well. OTHER FINDINGS: Unremarkable. IMPRESSION: No evidence of pulmonary embolism. Trace bilateral pleural effusion. Minimal bilateral lower lobe subsegmental atelectasis. Multiple thoracic vertebral compression fractures with minimal change from 10/25/2016.
--- NOTE | 2017-05-25 16:24 | CT ---
PROCEDURE: CT Abdomen and Pelvis with contrast HISTORY: LLQ pain COMPARISON: None. TECHNIQUE: Contrast dose: 100 mL of Visipaque 320 Radiation dose: Total exam DLP = 830 mGy-cm. This CT exam was performed using one or more of the following dose reduction techniques: Automated exposure control, adjustment of the mA and/or kV according to patient size, and/or use of iterative reconstruction technique. FINDINGS: LOWER THORAX: Bibasilar consolidation. Please note the same-day CT chest report Probable hiatal hernia LIVER: The left hepatic lobe 8 mm cyst is unchanged with May 05 05/02/2014 study GALLBLADDER AND BILE DUCTS: The gallbladder is distended with marked interval pericholecystic fluid/ascites present PANCREAS: Marked pancreatic atrophy similar-appearing SPLEEN: Unremarkable. ADRENALS: Unremarkable. No mass. KIDNEYS AND URETERS: Sub cm stable left renal cortical hypodensity consistent with a benign cyst. No hydronephrosis. No worrisome interval mass mass. VASCULATURE: Unremarkable. No aortic aneurysm. BOWEL: Stool retention.. Mild left colonic diverticulosis no definite complicating diverticulitis seen. Several small bowel loops are fluid filled -and caliber mostly top-normal. No gross mural thickening. APPENDIX: Not visualized PERITONEUM: Interval ascites. No free air. LYMPH NODES: Unremarkable. No enlarged lymph nodes. BLADDER: Unremarkable. REPRODUCTIVE: Unremarkable. BONES: Left femoral dynamic compression screw for prior fracture fixation OTHER FINDINGS: None. IMPRESSION: Interval distended gallbladder with pericholecystic fluid and interval ascites. Consider gallbladder ultrasound. No dense gallstones noted. No dilated intrahepatic bile ducts. Atrophic pancreas. Stool retention and colon and small bowel loops probably top-normal. At this time no high-grade obstruction suggested. Close follow-up advised. No free air noted. Mild left diverticulosis without diverticulitis. Nonvisualized appendix Left femoral fracture fixation with intramedullary berto Bibasilar consolidation
[2017-05-25 16:46] LABS: BANDS 5 % (0-2); LYMPHOCYTE 4 % (20-50); MONOCYTE 8 % (0-10); NEUTROPHIL 83 % (42-75); PLATELET ESTIMATE NORMAL (NORMAL); TOTAL CELLS COUNTED 100
[2017-05-25 16:47] LABS: ACANTHOCYTES SLIGHT; ANISOCYTOSIS SLIGHT; HYPERSEGMENTATION PRESENT; LARGE PLATELETS PRESENT; POIKILOCYTOSIS SLIGHT
[2017-05-25] MEDS ORDERED: metroNIDAZOLE 500mg/100ml NS 100 ML IV STA (17:54)
[2017-05-25] MEDS ORDERED: Ciprofloxacin 400mg/200ml D5W 400 MG/200 ML BAG IV STA (17:54)
--- NOTE | 2017-05-25 18:01 | ED PDOC ---
HPI: Fever Fever Onset Was: 05/25/17 Symptoms Associated With Fever: None Additional Comments: Pt sent from [place] for fever. Past Medical History Reviewed: Historical Data, Nursing Documentation, Vital Signs Vital Signs: Last Vital Signs Temp 98.0 F 05/25/17 17:00 Pulse 108 H 05/25/17 17:00 Resp 19 05/25/17 17:00 BP 131/68 05/25/17 17:00 Pulse Ox 95 05/25/17 18:50 - Medical History PMH: Anxiety, Arthritis (poly), Asthma, Back Problems, CHF, COPD, Dementia, Depression, Fractures (L wrist , comp Fx T Spine), HTN, Hypercholesterolemia, Osteoporosis, Seizures Denies: HIV, Chronic Kidney Disease - Surgical History Surgical History: CABG - Family History Family History: States: Unknown Family Hx, CAD - Social History Current smoker - smoking cessation education provided: No - Immunization History Hx Tetanus Toxoid Vaccination: No - Home Medications Home Medications: Ambulatory Orders Medication Instructions Recorded Acetaminophen [Tylenol 325mg tab] 650 mg PO Q4H PRN 05/06/17 Atorvastatin [Lipitor] 40 mg PO HS 05/06/17 Bisacodyl [Fast Relief Laxative] 1 supp SC DAILY PRN 05/06/17 Cyanocobalamin [Vitamin B12 1000 1,000 mcg IM Q30D 05/06/17 mcg/ml Inj] Ergocalciferol (Vitamin D2) 50,000 unit PO WE 05/06/17 [Vitamin D2] Fluticasone/Salmeterol 500/50 1 puff PO Q12H 05/06/17 [Advair Diskus 500/50] Gabapentin [Neurontin] 100 mg PO TID 05/06/17 Meclizine [Antivert] 12.5 mg PO TID 05/06/17 lamoTRIgine [Lamictal] 25 mg PO TID 05/06/17 Calcium/Vitamin D [Oyster Shell 1 tab PO DAILY tab 05/23/17 Calcium/Vitamin D 500 mg-200 IU] Enoxaparin [Lovenox] 40 mg SC DAILY syr 05/23/17 Acetaminophen [Tylenol 650 mg Supp] 650 mg SC Q4H PRN 05/25/17 Aspirin [Ecotrin] 81 mg PO DAILY 05/25/17 DULoxetine [Cymbalta] 20 mg PO DAILY 05/25/17 Lactulose [Generlac] 20 gm PO BID 05/25/17 Magnesium Hydroxide [Milk Of 30 ml PO HS PRN 05/25/17 Magnesia] Nitroglycerin 0.2 mg/hr [Nitro-Dur 1 patch TD DAILY 05/25/17 0.2 mg/hr Patch] Oxybutynin [Ditropan Tab] 5 mg PO TID 05/25/17 Pantoprazole Sodium [Protonix] 40 mg PO DAILY 05/25/17 fentaNYL 12 mcg/hr [Duragesic 1 patch TD Q72H 05/25/17 Patch 12 mcg/hr] oxyCODONE/Acetaminophen [Percocet 1 tab PO Q6H PRN 05/25/17 5/325 mg Tab] oxyCODONE/Acetaminophen [Percocet 2 tab PO Q6H PRN 05/25/17 5/325 mg Tab] - Allergies Allergies/Adverse Reactions: Allergies Allergy/AdvReac Type Severity Reaction Status Date / Time Penicillins Allergy RASH Verified 05/25/17 12:15 Review of Systems Review Of Systems: ROS cannot be obtained secondary to pt's inabilty to answer questions. Constitutional: Positive for: Fever Cardiovascular: Positive for: Other (tachycardia) Physical Exam - Reviewed Nursing Documentation Reviewed: Yes Vital Signs Reviewed: Yes - Physical Exam Appears: Positive for: In Acute Distress (moderate painful) Head Exam: Positive for: ATRAUMATIC, NORMAL INSPECTION, NORMOCEPHALIC Skin: Positive for: Normal Color, Warm, Dry Eye Exam: Positive for: Normal appearance, EOMI, PERRL Neck: Positive for: Painless ROM, Supple Cardiovascular/Chest: Positive for: Tachycardia, Irregularly Irregular Respiratory: Positive for: Normal Breath Sounds (clear auscultation b/l). Negative for: Respiratory Distress Gastrointestinal/Abdominal: Positive for: Tenderness (generalized), Other ( Incision on left hip, C/D/I. ) Back: Positive for: Normal Inspection. Negative for: L CVA Tenderness, R CVA Tenderness, Vertebral Tenderness Extremity: Positive for: Normal ROM. Negative for: Pedal Edema, Deformity, Swelling Neurologic/Psych: Positive for: Alert - Laboratory Results Result Diagrams: 05/27/17 04:40 05/27/17 04:40 - ECG O2 Sat by Pulse Oximetry: 95 (RA) Pulse Ox Interpretation: Normal - Critical Care Total Time (In Min): 30 Medical Decision Making Medical Decision Making: Time: 11:30 Initial Impression: Fever, sepsis. Initial Plan: --VBG --Abd & Pelvis IV Contrast [CT] --Angio Chest PE protocol [CT] --EKG --CMP --Magnesium --Phosphorus --CBC w/ differential --PTT --PT --Chest Portable [RAD] --Lamotrigine --Cipro 400mg/200ml DSW --Flagyl 500mg/100ml NS 100 ml IV --Sodium Chloride 1,000 ml IV 1,000 mls/hr --Tylenol 650mg SC --Urinalysis --Abdomen limited (GB included) [US] --reevaluation 13:10 Chest X-Ray FINDINGS: LUNGS: Bilateral shallow lung volumes and interval increased bibasilar discoid atelectasis. Concomitant small patchy infiltrates at both lung bases not excluded. Chronically prominent diffuse mild interstitial lung markings Study rotated towards the right PLEURA: . No pneumothorax apparent. Bilateral inferolateral pleural thickening. Probable minimal bilateral pleural effusions. CARDIOVASCULAR: Cardiomegaly OSSEOUS STRUCTURES: Thoraco lumbar level cement kyphoplasty changes VISUALIZED UPPER ABDOMEN: Normal. OTHER FINDINGS: None. IMPRESSION: Interval increase bibasilar discoid atelectasis. Concomitant small patchy infiltrates at both lung bases not excluded. Chronically prominent diffuse mild interstitial lung markings 16:[address] FINDINGS: PULMONARY ARTERIES: Unremarkable. No pulmonary embolism. AORTA: No acute findings. No thoracic aortic aneurysm. LUNGS: Trace bilateral pleural effusion and lower lobe subsegmental atelectasis, possibly compressive atelectasis secondary to the pleural effusions. No magdalena pulmonary infiltrate. No pulmonary mass. PLEURAL SPACES: As above, trace bilateral pleural effusion. No pneumothorax. HEART: Mild cardiomegaly. Coronary arterial calcification. No mediastinal lymphadenopathy. Nodular sub carinal calcification consistent with calcified old granulomatous disease. Rounded low-density anterior mediastinal mass now measures 1.3 cm in the transverse plane, previously 1.8 cm. It measures 24 Hounsfield units. This is slightly higher in attenuation than on prior examination. Nevertheless, given the attenuation of -[address], likely small mediastinal cyst of uncertain significance, decreasing in size. No other mediastinal mass identified. . LYMPH NODES: No lymphadenopathy. BONES, CHEST WALL: Multiple lower thoracic vertebral compression fractures unchanged from prior CT examination. Most severe compression deformity at T12. There is also compression deformity of the T10 and T11 vertebra. There is minimal increase in compression deformity of the T9 vertebra. There is mild central compression deformity of the T5 and T6 vertebrae. In retrospect, this was present on prior examination as well. OTHER FINDINGS: Unremarkable. IMPRESSION: No evidence of pulmonary embolism. Trace bilateral pleural effusion. Minimal bilateral lower lobe subsegmental atelectasis. Multiple thoracic vertebral compression fractures with minimal change from 10/25/2016. 16:23 Abd/Pelvis CT FINDINGS: LOWER THORAX: Bibasilar consolidation. Please note the same-day CT chest report Probable hiatal hernia LIVER: The left hepatic lobe 8 mm cyst is unchanged with May 05 05/02/2014 study GALLBLADDER AND BILE DUCTS: The gallbladder is distended with marked interval pericholecystic fluid/ascites present PANCREAS: Marked pancreatic atrophy similar-appearing SPLEEN: Unremarkable. ADRENALS: Unremarkable. No mass. KIDNEYS AND URETERS: Sub cm stable left renal cortical hypodensity consistent with a benign cyst. No hydronephrosis. No worrisome interval mass mass. VASCULATURE: Unremarkable. No aortic aneurysm. BOWEL: Stool retention.. Mild left colonic diverticulosis no definite complicating diverticulitis seen. Several small bowel loops are fluid filled -and caliber mostly top-normal. No gross mural thickening. APPENDIX: Not visualized PERITONEUM: Interval ascites. No free air. LYMPH NODES: Unremarkable. No enlarged lymph nodes. BLADDER: Unremarkable. REPRODUCTIVE: Unremarkable. BONES: Left femoral dynamic compression screw for prior fracture fixation OTHER FINDINGS: None. IMPRESSION: Interval distended gallbladder with pericholecystic fluid and interval ascites. Consider gallbladder ultrasound. No dense gallstones noted. No dilated intrahepatic bile ducts. Atrophic pancreas. Stool retention and colon and small bowel loops probably top-normal. At this time no high-grade obstruction suggested. Close follow-up advised. No free air noted. Mild left diverticulosis without diverticulitis. Nonvisualized appendix Left femoral fracture fixation with intramedullary berto Bibasilar consolidation 17:53 --vice president of customer service notified patient. 18:06 Abdomen US FINDINGS: LIVER: Measures 16.4 cm in length and appears unremarkable. No focal hepatic mass identified. The main portal vein appears patent with normal directional flow. No intrahepatic bile duct dilatation. GALLBLADDER: Gallbladder sludge. No gallstones. Gallbladder wall thickening/ pericholecystic edema measuring approximately 7 mm. Negative sonographic Roland's sign as assessed by the metal reed tuner. COMMON BILE DUCT: Measures approximately 7 mm. PANCREAS: Not well-visualized. RIGHT KIDNEY: Measures 8.6 x 3.9 x 4.8 cm. No obstructing calculus or hydronephrosis identified. AORTA: Limited visualization appears grossly unremarkable. IVC: Limited visualization appears grossly unremarkable. OTHER FINDINGS: None . IMPRESSION: Gallbladder wall thickening/pericholecystic edema. Gallbladder sludge. Positive sonographic Roland's sign as assessed by the metal reed tuner. Correlate clinically for possibility of acute cholecystitis. 18:10 --Spoke with Dr. Lucio, will consult on patient, and will notify Dr. Zarate Scribe Attestation: Documented by Brent Barrientos, acting as a scribe for Iris Portillo MD Provider Scribe Attestation: All medical record entries made by the Scribe were at my direction and personally dictated by me. I have reviewed the chart and agree that the record accurately reflects my personal performance of the history, physical exam, medical decision making, and the department course for this patient. I have also personally directed, reviewed, and agree with the discharge instructions and disposition. Disposition - Clinical Impression Clinical Impression: Acute cholecystitis, Sepsis - Patient ED Disposition Is Patient to be Admitted: Yes - Disposition Disposition Time: 17:56 Condition: GUARDED - Pt Status Changed To: Hospital Disposition Of: Inpatient - Admit Certification Admit to Inpatient:: After my assessment, the patient will require hospitalization for at least two midnights. This is because of the severity of symptoms shown, intensity of services needed, and/or the medical risk in this patient being treated as an outpatient. - POA Present On Arrival: None History Of Present Illness Donya Laureano is an 82 year old female, with a past medical history of HTN, CHF , osteoporosis, arthritis, and dementia, who [facility] and tachycardia. Patient is x20 days s/p left ORIF. Unable to obtain full history due to patient's dementia. No further medical complaints. PMD: Sj Lara
--- NOTE | 2017-05-25 18:08 | US ---
HISTORY: Distended GB on CT COMPARISON: CT abdomen and pelvis with IV contrast performed 05/25/17 TECHNIQUE: Sonographic evaluation of the right upper quadrant of the abdomen. FINDINGS: LIVER: Measures 16.4 cm in length and appears unremarkable. No focal hepatic mass identified. The main portal vein appears patent with normal directional flow. No intrahepatic bile duct dilatation. GALLBLADDER: Gallbladder sludge. No gallstones. Gallbladder wall thickening/ pericholecystic edema measuring approximately 7 mm. Negative sonographic Roland's sign as assessed by the clinical program manager. COMMON BILE DUCT: Measures approximately 7 mm. PANCREAS: Not well-visualized. RIGHT KIDNEY: Measures 8.6 x 3.9 x 4.8 cm. No obstructing calculus or hydronephrosis identified. AORTA: Limited visualization appears grossly unremarkable. IVC: Limited visualization appears grossly unremarkable. OTHER FINDINGS: None . IMPRESSION: Gallbladder wall thickening/pericholecystic edema. Gallbladder sludge. Positive sonographic Roland's sign as assessed by the clinical program manager. Correlate clinically for possibility of acute cholecystitis.
[2017-05-25] MEDS ORDERED: HYDROmorphone 0.5 mg/0.5 ml ISec IVP STA (18:12)
[2017-05-25] MEDS ORDERED: Ciprofloxacin 400mg/200ml D5W 400 MG/200 ML BAG IVPB ONE (19:08)
[2017-05-25] MEDS ORDERED: metroNIDAZOLE 500mg/100ml NS 100 ML IVPB ONE (19:08)
--- NOTE | 2017-05-25 22:03 | CP.PCM.CON ---
<Riki Moses - Last Filed: 05/26/17 08:26> History of Present Illness - History of Present Illness History of Present Illness: General Surgery Consult Note for Dr. Lucio Reason for Consult: Acute cholecystitis 82 F HTN, HLD, Seizures, Dementia, Depression, COPD, s/p left hip ORIF was sent from [facility] for fevers tachycardia, and abdominal pain. The history was obtained from ED attending, NH records and medical records due to patient's clinical condition. Patient primarily speaks uzbek but is unable to answer appropriately. Patient is moaning in pain. Responds to some verbal and tactile stimul. ROS unobtainable. CT abdomen/pelvis shows distended gallbladder with wall thickening. ABUS was also done which showed preence of biliary sludge and evidence of acute cholecystitis. PMH: HTN, HLD, Seizures, Dementia, Depression, COPD, multiple compressions of the thoracic spine, rib fractures, left Femur fracture, Osteoporosis Meds: as per EMR Allergy: PCN PSH: ORIF Left Femur, L3 Kyphoplasty FH: unknown Social: [place] at the [facility] Review of Systems - Review of Systems Systems not reviewed;Unavailable: Acuity of Condition, Dementia Past Patient History - Infectious Disease Hx of Infectious Diseases: None - Past Medical History & Family History Past Medical History?: Yes - Past Social History Smoking Status: Never Smoked - CARDIAC Hx Congestive Heart Failure: Yes Hx Hypercholesterolemia: Yes Hx Hypertension: Yes - PULMONARY Hx Asthma: Yes Hx Chronic Obstructive Pulmonary Disease (COPD): Yes - NEUROLOGICAL Hx Dementia: Yes Hx Seizures: Yes - HEENT Hx HEENT Problems: No - RENAL Hx Chronic Kidney Disease: No - ENDOCRINE/METABOLIC Hx Endocrine Disorders: No - HEMATOLOGICAL/ONCOLOGICAL Hx Human Immunodeficiency Virus (HIV): No - INTEGUMENTARY Hx Dermatological Problems: No - MUSCULOSKELETAL/RHEUMATOLOGICAL Hx Arthritis: Yes (poly) Hx Fractures: Yes (L wrist , comp Fx T Spine) Hx Osteoporosis: Yes - GASTROINTESTINAL Hx Gastrointestinal Disorders: Yes Hx Constipation: Yes - GENITOURINARY/GYNECOLOGICAL Hx Genitourinary Disorders: No Hx Incontinence: Yes - PSYCHIATRIC Hx Anxiety: Yes Hx Depression: Yes - SURGICAL HISTORY Hx Coronary Artery Bypass Graft: Yes - ANESTHESIA Hx Anesthesia: Yes Hx Anesthesia Reactions: No Hx Malignant Hyperthermia: No Meds Allergies/Adverse Reactions: Allergies Allergy/AdvReac Type Severity Reaction Status Date / Time Penicillins Allergy RASH Verified 05/25/17 12:15 Physical Exam - Constitutional Appears: Toxic, In Acute Distress, Chronically Ill - Head Exam Head Exam: ATRAUMATIC, NORMOCEPHALIC - Eye Exam Eye Exam: Normal appearance - ENT Exam ENT Exam: Mucous Membranes Dry - Respiratory Exam Respiratory Exam: NORMAL BREATHING PATTERN - Cardiovascular Exam Cardiovascular Exam: Tachycardia - GI/Abdominal Exam GI & Abdominal Exam: Firm (slightly), Guarding, Tenderness (Ride side of abdomen ). absent: Distended, Hernia, Rebound, Rigid - Extremities Exam Extremities exam: Negative for: calf tenderness - Back Exam Back exam: absent: CVA tenderness (L), CVA tenderness (R) - Neurological Exam Neurological exam: Altered - Psychiatric Exam Psychiatric exam: Flat Affect - Skin Skin Exam: Dry, Pallor, Warm Results - Vital Signs Recent Vital Signs: Last Vital Signs Temp 98.0 F 05/25/17 17:00 Pulse 108 H 05/25/17 17:00 Resp 19 05/25/17 17:00 BP 131/68 05/25/17 17:00 Pulse Ox 95 05/25/17 18:50 - Labs Result Diagrams: 05/26/17 04:45 05/26/17 04:45 Labs: Laboratory Results - last 24 hr 05/25/17 05/25/17 05/25/17 12:53 13:10 13:10 WBC 26.1 H D RBC 4.25 Hgb 11.8 L Hct 37.4 MCV 87.9 MCH 27.8 MCHC 31.7 L RDW 15.8 H Plt Count 232 MPV 8.9 Neut % (Auto) 88.9 H Lymph % (Auto) 2.5 L [place] % (Auto) 8.1 Eos % (Auto) 0.0 Baso % (Auto) 0.5 Neut # 23.2 H Lymph # 0.7 L [place] # 2.1 H Eos # 0.0 Baso # 0.1 Neutrophils % (Manual) 83 H Band Neutrophils % 5 H Lymphocytes % (Manual) 4 L Monocytes % (Manual) 8 Hypersegmented Polys Present Platelet Estimate Normal Large Platelets Present Poikilocytosis (manual Slight Anisocytosis (manual) Slight Acanthocytes (Spur) Slight PT INR APTT pO2 46 VBG pH 7.52 H VBG pCO2 40 VBG HCO3 31.6 VBG Total CO2 33.9 H VBG O2 Sat (Calc) 88.1 H VBG Base Excess 9.0 H VBG Potassium 4.5 A-a O2 Difference 54.0 Sodium 134.0 139 Chloride 99.0 97 L Glucose 180 H Lactate 2.7 H FiO2 21.0 Potassium 4.1 Carbon Dioxide 28 Anion Gap 18 BUN 19 H Creatinine 0.5 L Est GFR ( Amer) > 60 Est GFR (Non-Af Amer) > 60 Random Glucose 160 H Calcium 9.5 Phosphorus 2.9 Magnesium 2.4 H Total Bilirubin 2.5 H AST 52 H D ALT 26 Alkaline Phosphatase 145 H D Total Protein 7.8 Albumin 3.8 Globulin 4.0 H Albumin/Globulin Ratio 1.0 Venous Blood Potassium 4.5 05/25/17 13:10 WBC RBC Hgb Hct MCV MCH MCHC RDW Plt Count MPV Neut % (Auto) Lymph % (Auto) [place] % (Auto) Eos % (Auto) Baso % (Auto) Neut # Lymph # [place] # Eos # Baso # Neutrophils % (Manual) Band Neutrophils % Lymphocytes % (Manual) Monocytes % (Manual) Hypersegmented Polys Platelet Estimate Large Platelets Poikilocytosis (manual Anisocytosis (manual) Acanthocytes (Spur) PT 20.5 H INR 1.8 H APTT 26.4 pO2 VBG pH VBG pCO2 VBG HCO3 VBG Total CO2 VBG O2 Sat (Calc) VBG Base Excess VBG Potassium A-a O2 Difference Sodium Chloride Glucose Lactate FiO2 Potassium Carbon Dioxide Anion Gap BUN Creatinine Est GFR ( Amer) Est GFR (Non-Af Amer) Random Glucose Calcium Phosphorus Magnesium Total Bilirubin AST ALT Alkaline Phosphatase Total Protein Albumin Globulin Albumin/Globulin Ratio Venous Blood Potassium Assessment & Plan - Assessment and Plan (Free Text) Plan: 82 F presents for fever, tachycardia, and abdominal pain; found to be septic likely secondary to acute cholecystitis WBC 26.2 Lactic acid 2.7 t. bili 2.5 -NPO -IV fluids -IV antibiotics -Analgesics PRN -Anti-pyretic -Critical care evaluation -Patient may need percutaneous cholecystotomy drain -Discussed with Dr. Naveed Moses PGY1 <Josh Zarate - Last Filed: 05/26/17 10:41> History of Present Illness - History of Present Illness History of Present Illness: Patient was seen and examined at the bedside. Agree with resident's note above. Meds - Medications Medications: Current Medications Acetaminophen (Tylenol 650 Mg Supp) 650 mg ME Q6 PRN PRN Reason: Fever >100.4 F Enoxaparin Sodium (Lovenox) 40 mg SC DAILY BELLE PRN Reason: Protocol Fentanyl (Duragesic) 1 patch TD Q3D BELLE PRN Reason: Protocol Hydromorphone HCl (Dilaudid) 0.5 mg IVP Q6H PRN PRN Reason: Other Stop: 05/28/17 00:47 Last Admin: 05/26/17 01:15 Dose: 0.5 mg Ciprofloxacin (Cipro 400mg/200ml Dsw) 400 mg in 200 mls @ 200 mls/hr IVPB Q12 BELLE PRN Reason: Protocol Last Admin: 05/26/17 06:22 Dose: 200 mls/hr Aztreonam 1 gm/ Sodium (Chloride) 100 mls @ 100 mls/hr IVPB Q12 BELLE PRN Reason: Protocol Last Admin: 05/26/17 01:37 Dose: 100 mls/hr Sodium Chloride (Sodium Chloride 0.9%) 1,000 mls @ 100 mls/hr IV .Q10H BELLE Stop: 05/26/17 22:09 Potassium Chloride 10 meq/ (Sodium Chloride) 105 mls @ 105 mls/hr IV Q1H BELLE Stop: 05/26/17 12:14 Clindamycin Phosphate (Cleocin In Normal Saline) 600 mg in 50 mls @ 50 mls/hr IVPB Q8 BELLE PRN Reason: Protocol Nitroglycerin (Nitro-Dur 0.2 Mg/Hr Patch) 1 patch TD DAILY [facility] Ondansetron HCl (Zofran Inj) 4 mg IVP Q6 PRN PRN Reason: Nausea/Vomiting Pantoprazole Sodium (Protonix Inj) 40 mg IVP DAILY [facility] Results - Vital Signs Recent Vital Signs: Last Vital Signs Temp 99.2 F 05/26/17 08:00 Pulse 104 H 05/26/17 08:00 Resp 21 05/26/17 08:00 BP 122/55 L 05/26/17 08:00 Pulse Ox 95 05/26/17 08:00 - Labs Result Diagrams: 05/26/17 04:45 05/26/17 04:45 Labs: Laboratory Results - last 24 hr 05/25/17 05/25/17 05/25/17 12:53 13:10 13:10 WBC 26.1 H D RBC 4.25 Hgb 11.8 L Hct 37.4 MCV 87.9 MCH 27.8 MCHC 31.7 L RDW 15.8 H Plt Count 232 MPV 8.9 Neut % (Auto) 88.9 H Lymph % (Auto) 2.5 L [place] % (Auto) 8.1 Eos % (Auto) 0.0 Baso % (Auto) 0.5 Neut # 23.2 H Lymph # 0.7 L [place] # 2.1 H Eos # 0.0 Baso # 0.1 Total Counted Neutrophils % (Manual) 83 H Band Neutrophils % 5 H Lymphocytes % (Manual) 4 L Reactive Lymphs % Monocytes % (Manual) 8 Eosinophils % (Manual) Basophils % (Manual) Metamyelocytes % Myelocytes % Promyelocytes % Blast Cells % Plasma Cell % (Manual) Nucleated RBC % Hypersegmented Polys Present Smudge Cells Toxic Granulation Dohle Bodies [place] Rods Platelet Estimate Normal Plt Clumps, EDTA Large Platelets Present Giant Platelets RBC Morphology Polychromasia Hypochromasia (manual) Poikilocytosis (manual Slight Basophilic Stippling Anisocytosis (manual) Slight Microcytosis (manual) Macrocytosis (manual) Spherocytes Sickle Cells Target Cells Tear Drop Cells Ovalocytes Stomatocytes Helmet Cells Piña-Holcomb Bodies Michelle Cells Acanthocytes (Spur) Slight Rouleaux Schistocytes PT INR APTT pO2 46 VBG pH 7.52 H VBG pCO2 40 VBG HCO3 31.6 VBG Total CO2 33.9 H VBG O2 Sat (Calc) 88.1 H VBG Base Excess 9.0 H VBG Potassium 4.5 A-a O2 Difference 54.0 Sodium 134.0 139 Chloride 99.0 97 L Glucose 180 H Lactate 2.7 H FiO2 21.0 Potassium 4.1 Carbon Dioxide 28 Anion Gap 18 BUN 19 H Creatinine 0.5 L Est GFR ( Amer) > 60 Est GFR (Non-Af Amer) > 60 Random Glucose 160 H Lactic Acid Calcium 9.5 Phosphorus 2.9 Magnesium 2.4 H Total Bilirubin 2.5 H AST 52 H D ALT 26 Alkaline Phosphatase 145 H D Total Protein 7.8 Albumin 3.8 Globulin 4.0 H Albumin/Globulin Ratio 1.0 Venous Blood Potassium 4.5 05/25/17 05/26/17 05/26/17 13:10 01:30 04:45 WBC 18.6 H RBC 3.77 L Hgb 10.6 L Hct 33.2 L MCV 88.1 MCH 28.0 MCHC 31.8 L RDW 16.4 H Plt Count 185 MPV 9.2 Neut % (Auto) 90.2 H Lymph % (Auto) 2.4 L [place] % (Auto) 7.2 Eos % (Auto) 0.1 Baso % (Auto) 0.1 Neut # 16.8 H Lymph # 0.5 L [place] # 1.3 H Eos # 0.0 Baso # 0.0 Total Counted Cancelled Neutrophils % (Manual) Cancelled Band Neutrophils % Cancelled Lymphocytes % (Manual) Cancelled Reactive Lymphs % Cancelled Monocytes % (Manual) Cancelled Eosinophils % (Manual) Cancelled Basophils % (Manual) Cancelled Metamyelocytes % Cancelled Myelocytes % Cancelled Promyelocytes % Cancelled Blast Cells % Cancelled Plasma Cell % (Manual) Cancelled Nucleated RBC % Cancelled Hypersegmented Polys Cancelled Smudge Cells Cancelled Toxic Granulation Cancelled Dohle Bodies Cancelled [place] Rods Cancelled Platelet Estimate Cancelled Plt Clumps, EDTA Cancelled Large Platelets Cancelled Giant Platelets Cancelled RBC Morphology Cancelled Polychromasia Cancelled Hypochromasia (manual) Cancelled Poikilocytosis (manual Cancelled Basophilic Stippling Cancelled Anisocytosis (manual) Cancelled Microcytosis (manual) Cancelled Macrocytosis (manual) Cancelled Spherocytes Cancelled Sickle Cells Cancelled Target Cells Cancelled Tear Drop Cells Cancelled Ovalocytes Cancelled Stomatocytes Cancelled Helmet Cells Cancelled Piña-Holcomb Bodies Cancelled [place] Cells Cancelled Acanthocytes (Spur) Cancelled Rouleaux Cancelled Schistocytes Cancelled PT 20.5 H INR 1.8 H APTT 26.4 pO2 VBG pH VBG pCO2 VBG HCO3 VBG Total CO2 VBG O2 Sat (Calc) VBG Base Excess VBG Potassium A-a O2 Difference Sodium Chloride Glucose Lactate FiO2 Potassium Carbon Dioxide Anion Gap BUN Creatinine Est GFR ( Amer) Est GFR (Non-Af Amer) Random Glucose Lactic Acid 1.0 Calcium Phosphorus Magnesium Total Bilirubin AST ALT Alkaline Phosphatase Total Protein Albumin Globulin Albumin/Globulin Ratio Venous Blood Potassium 05/26/17 05/26/17 04:45 04:45 WBC RBC Hgb Hct MCV MCH MCHC RDW Plt Count MPV Neut % (Auto) Lymph % (Auto) [place] % (Auto) Eos % (Auto) Baso % (Auto) Neut # Lymph # [place] # Eos # Baso # Total Counted Neutrophils % (Manual) Band Neutrophils % Lymphocytes % (Manual) Reactive Lymphs % Monocytes % (Manual) Eosinophils % (Manual) Basophils % (Manual) Metamyelocytes % Myelocytes % Promyelocytes % Blast Cells % Plasma Cell % (Manual) Nucleated RBC % Hypersegmented Polys Smudge Cells Toxic Granulation Dohle Bodies Martinez Rods Platelet Estimate Plt Clumps, EDTA Large Platelets Giant Platelets RBC Morphology Polychromasia Hypochromasia (manual) Poikilocytosis (manual Basophilic Stippling Anisocytosis (manual) Microcytosis (manual) Macrocytosis (manual) Spherocytes Sickle Cells Target Cells Tear Drop Cells Ovalocytes Stomatocytes Helmet Cells Piña-Holcomb Bodies [place] Cells Acanthocytes (Spur) Rouleaux Schistocytes PT 20.9 H INR 1.9 H APTT pO2 VBG pH VBG pCO2 VBG HCO3 VBG Total CO2 VBG O2 Sat (Calc) VBG Base Excess VBG Potassium A-a O2 Difference Sodium 142 Chloride 104 Glucose Lactate FiO2 Potassium 3.2 L Carbon Dioxide 29 Anion Gap 12 BUN 15 Creatinine 0.4 L Est GFR ( Amer) > 60 Est GFR (Non-Af Amer) > 60 Random Glucose 110 H Lactic Acid Calcium 8.6 Phosphorus Magnesium Total Bilirubin AST ALT Alkaline Phosphatase Total Protein Albumin Globulin Albumin/Globulin Ratio Venous Blood Potassium - Imaging and Cardiology CT scan - abdomen Status: Image reviewed by me, Report reviewed by me
[2017-05-25] MEDS ORDERED: Sodium Chloride 0.9% 1,000 ML IV SCH (22:15)
[2017-05-25] MEDS ORDERED: Piperacillin/Tazobact 3.375 GM in Sodium Chloride 0.9% 100 ML IVPB STA (22:22)
--- NOTE | 2017-05-25 22:54 | CP.PCM.HP ---
History of Present Illness - History of Present Illness History of Present Illness: PCP: Sj Lara MD Reason for consult: Critical care management Chief Complaint: Fever HPI: The hx was obtained from the medical records as the patient has severe dementia. She is an 82 years old female From the [facility] , with hx of Seizure, HTN, dementia, last admitted on 05/05/17 and discharged on with dx of Left Femur fracture and underwent ORIF surgery. She is sent to the ED because of fever and tachycardia today. No added information of additional symptoms at this time. PMH: Anxiety; Arthritis; Asthma with COPD; Dementia; Back pain with multiple compressions of the thoracic spine; Left wrist, rib fractures, left Femur fracture; HTN; HLD; Seizure; Osteoporosis PSH: ORIF Left Femur SH: No illegal drug use; No ETOH use; Never smoked; Live at the [facility] FH: No known family Hx Allergies: PCN Medication: Reviewed Past Patient History - Infectious Disease Hx of Infectious Diseases: None - Past Medical History & Family History Past Medical History?: Yes - Past Social History Smoking Status: Never Smoked - CARDIAC Hx Congestive Heart Failure: Yes Hx Hypercholesterolemia: Yes Hx Hypertension: Yes - PULMONARY Hx Asthma: Yes Hx Chronic Obstructive Pulmonary Disease (COPD): Yes - NEUROLOGICAL Hx Dementia: Yes Hx Seizures: Yes - HEENT Hx HEENT Problems: No - RENAL Hx Chronic Kidney Disease: No - ENDOCRINE/METABOLIC Hx Endocrine Disorders: No - HEMATOLOGICAL/ONCOLOGICAL Hx Human Immunodeficiency Virus (HIV): No - INTEGUMENTARY Hx Dermatological Problems: No - MUSCULOSKELETAL/RHEUMATOLOGICAL Hx Arthritis: Yes (poly) Hx Fractures: Yes (L wrist , comp Fx T Spine) Hx Osteoporosis: Yes - GASTROINTESTINAL Hx Gastrointestinal Disorders: Yes Hx Constipation: Yes - GENITOURINARY/GYNECOLOGICAL Hx Genitourinary Disorders: No Hx Incontinence: Yes - PSYCHIATRIC Hx Anxiety: Yes Hx Depression: Yes - SURGICAL HISTORY Hx Coronary Artery Bypass Graft: Yes - ANESTHESIA Hx Anesthesia: Yes Hx Anesthesia Reactions: No Hx Malignant Hyperthermia: No Meds Allergies/Adverse Reactions: Allergies Allergy/AdvReac Type Severity Reaction Status Date / Time Penicillins Allergy RASH Verified 05/25/17 12:15 Results - Vital Signs Recent Vital Signs: Last Vital Signs Temp 98.0 F 05/25/17 17:00 Pulse 108 H 05/25/17 17:00 Resp 19 05/25/17 17:00 BP 131/68 05/25/17 17:00 Pulse Ox 95 05/25/17 22:50 - Labs Result Diagrams: 05/25/17 13:10 05/25/17 13:10 Labs: Laboratory Results - last 24 hr 05/25/17 05/25/17 05/25/17 12:53 13:10 13:10 WBC 26.1 H D RBC 4.25 Hgb 11.8 L Hct 37.4 MCV 87.9 MCH 27.8 MCHC 31.7 L RDW 15.8 H Plt Count 232 MPV 8.9 Neut % (Auto) 88.9 H Lymph % (Auto) 2.5 L [place] % (Auto) 8.1 Eos % (Auto) 0.0 Baso % (Auto) 0.5 Neut # 23.2 H Lymph # 0.7 L [place] # 2.1 H Eos # 0.0 Baso # 0.1 Neutrophils % (Manual) 83 H Band Neutrophils % 5 H Lymphocytes % (Manual) 4 L Monocytes % (Manual) 8 Hypersegmented Polys Present Platelet Estimate Normal Large Platelets Present Poikilocytosis (manual Slight Anisocytosis (manual) Slight Acanthocytes (Spur) Slight PT INR APTT pO2 46 VBG pH 7.52 H VBG pCO2 40 VBG HCO3 31.6 VBG Total CO2 33.9 H VBG O2 Sat (Calc) 88.1 H VBG Base Excess 9.0 H VBG Potassium 4.5 A-a O2 Difference 54.0 Sodium 134.0 139 Chloride 99.0 97 L Glucose 180 H Lactate 2.7 H FiO2 21.0 Potassium 4.1 Carbon Dioxide 28 Anion Gap 18 BUN 19 H Creatinine 0.5 L Est GFR ( Amer) > 60 Est GFR (Non-Af Amer) > 60 Random Glucose 160 H Calcium 9.5 Phosphorus 2.9 Magnesium 2.4 H Total Bilirubin 2.5 H AST 52 H D ALT 26 Alkaline Phosphatase 145 H D Total Protein 7.8 Albumin 3.8 Globulin 4.0 H Albumin/Globulin Ratio 1.0 Venous Blood Potassium 4.5 05/25/17 13:10 WBC RBC Hgb Hct MCV MCH MCHC RDW Plt Count MPV Neut % (Auto) Lymph % (Auto) [place] % (Auto) Eos % (Auto) Baso % (Auto) Neut # Lymph # [place] # Eos # Baso # Neutrophils % (Manual) Band Neutrophils % Lymphocytes % (Manual) Monocytes % (Manual) Hypersegmented Polys Platelet Estimate Large Platelets Poikilocytosis (manual Anisocytosis (manual) Acanthocytes (Spur) PT 20.5 H INR 1.8 H APTT 26.4 pO2 VBG pH VBG pCO2 VBG HCO3 VBG Total CO2 VBG O2 Sat (Calc) VBG Base Excess VBG Potassium A-a O2 Difference Sodium Chloride Glucose Lactate FiO2 Potassium Carbon Dioxide Anion Gap BUN Creatinine Est GFR ( Amer) Est GFR (Non-Af Amer) Random Glucose Calcium Phosphorus Magnesium Total Bilirubin AST ALT Alkaline Phosphatase Total Protein Albumin Globulin Albumin/Globulin Ratio Venous Blood Potassium Assessment & Plan - Date & Time Date: 05/25/17 Time: 22:54
--- NOTE | 2017-05-25 23:34 | CP.PCM.CON ---
History of Present Illness - History of Present Illness History of Present Illness: PCP: Sj Lara MD Reason for consult: Critical care management Chief Complaint: Fever HPI: The hx was obtained from the medical records as the patient has severe dementia. She is an 82 years old female From the [facility] , with hx of Seizure, HTN, dementia, last admitted on 05/05/17 and discharged on with dx of Left Femur fracture and underwent ORIF surgery. She is sent to the ED because of fever and tachycardia today. No added information of additional symptoms at this time. PMH: Anxiety and Depression; Arthritis; Asthma with COPD; Dementia; Back pain with multiple compressions of the thoracic spine; Left wrist, rib fractures, left Femur fracture; HTN; HLD; Seizure; Osteoporosis PSH: ORIF Left Femur; L3 Kyphoplasty SH: No illegal drug use; No ETOH use; Never smoked; Live at the [facility] FH: No known family Hx Allergies: PCN Medication: Reviewed Review of Systems - Review of Systems Review of Systems: Review of systems is limited because of patients Severe Dementia. Past Patient History - Infectious Disease Hx of Infectious Diseases: None - Past Medical History & Family History Past Medical History?: Yes - Past Social History Smoking Status: Never Smoked Chewing Tobacco Use: No Cigar Use: No Alcohol: None Drugs: Denies Home Situation {Lives}: Group Home - CARDIAC Hx Congestive Heart Failure: Yes Hx Hypercholesterolemia: Yes Hx Hypertension: Yes - PULMONARY Hx Asthma: Yes Hx Chronic Obstructive Pulmonary Disease (COPD): Yes - NEUROLOGICAL Hx Dementia: Yes Hx Seizures: Yes - HEENT Hx HEENT Problems: No - RENAL Hx Chronic Kidney Disease: No - ENDOCRINE/METABOLIC Hx Endocrine Disorders: No - HEMATOLOGICAL/ONCOLOGICAL Hx Blood Disorders: No Hx Human Immunodeficiency Virus (HIV): No - INTEGUMENTARY Hx Dermatological Problems: No - MUSCULOSKELETAL/RHEUMATOLOGICAL Hx Arthritis: Yes (poly) Hx Fractures: Yes (L wrist , comp Fx T Spine) Hx Osteoporosis: Yes - GASTROINTESTINAL Hx Gastrointestinal Disorders: Yes Hx Constipation: Yes - GENITOURINARY/GYNECOLOGICAL Hx Genitourinary Disorders: No Hx Incontinence: Yes - PSYCHIATRIC Hx Anxiety: Yes Hx Depression: Yes - SURGICAL HISTORY Hx Coronary Artery Bypass Graft: Yes - ANESTHESIA Hx Anesthesia: Yes Hx Anesthesia Reactions: No Hx Malignant Hyperthermia: No Meds Allergies/Adverse Reactions: Allergies Allergy/AdvReac Type Severity Reaction Status Date / Time Penicillins Allergy RASH Verified 05/25/17 12:15 - Medications Medications: Current Medications Acetaminophen (Tylenol 650 Mg Supp) 650 mg [place] Q6 PRN PRN Reason: Fever >100.4 F Sodium Chloride (Sodium Chloride 0.9%) 1,000 mls @ 200 mls/hr IV .Q5H [facility]LE Stop: 05/26/17 22:09 Ciprofloxacin (Cipro 400mg/200ml Dsw) 400 mg in 200 mls @ 200 mls/hr IVPB Q12 BELLE PRN Reason: Protocol Clindamycin Phosphate 600 mg/ (Sodium Chloride) 54 mls @ 54 mls/hr IVPB Q8 BELLE PRN Reason: Protocol Aztreonam 1 gm/ Sodium (Chloride) 100 mls @ 100 mls/hr IVPB Q12 BELLE PRN Reason: Protocol Ondansetron HCl (Zofran Inj) 4 mg IVP Q6 PRN PRN Reason: Nausea/Vomiting Physical Exam - Constitutional Appears: No Acute Distress, Confused - Head Exam Head Exam: ATRAUMATIC, NORMAL INSPECTION, NORMOCEPHALIC - Eye Exam Eye Exam: EOMI, PERRL Pupil Exam: NORMAL ACCOMODATION, PERRL - ENT Exam ENT Exam: Mucous Membranes Dry, Normal Exam, Normal External Ear Exam - Neck Exam Neck exam: Positive for: Full Rom, Normal Inspection. Negative for: Lymphadenopathy, Tenderness - Respiratory Exam Respiratory Exam: absent: Rhonchi, Wheezes Additional comments: Diffuse rales at both lungs 3/4 up - Cardiovascular Exam Cardiovascular Exam: REGULAR RHYTHM, RRR, +S1, +S2. absent: JVD - GI/Abdominal Exam Additional comments: Obese, soft, +ve bowel sounds. - Rectal Exam Rectal Exam: Deferred - Extremities Exam Extremities exam: Positive for: normal inspection Additional comments: Left hip surgical wound scar clean and dry - Back Exam Back exam: NORMAL INSPECTION - Neurological Exam Additional comments: Patient awake alert, Confused with clear speech. No facial droop, moving both upper extremities - Psychiatric Exam Psychiatric exam: Flat Affect - Skin Skin Exam: Dry, Intact, Normal Color, Warm Results - Vital Signs Recent Vital Signs: Last Vital Signs Temp 98.0 F 05/25/17 17:00 Pulse 108 H 05/25/17 17:00 Resp 19 05/25/17 17:00 BP 131/68 05/25/17 17:00 Pulse Ox 95 05/25/17 22:50 - Labs Result Diagrams: 05/25/17 13:10 05/25/17 13:10 Labs: Laboratory Results - last 24 hr 05/25/17 05/25/17 05/25/17 12:53 13:10 13:10 WBC 26.1 H D RBC 4.25 Hgb 11.8 L Hct 37.4 MCV 87.9 MCH 27.8 MCHC 31.7 L RDW 15.8 H Plt Count 232 MPV 8.9 Neut % (Auto) 88.9 H Lymph % (Auto) 2.5 L Eagle % (Auto) 8.1 Eos % (Auto) 0.0 Baso % (Auto) 0.5 Neut # 23.2 H Lymph # 0.7 L Eagle # 2.1 H Eos # 0.0 Baso # 0.1 Neutrophils % (Manual) 83 H Band Neutrophils % 5 H Lymphocytes % (Manual) 4 L Monocytes % (Manual) 8 Hypersegmented Polys Present Platelet Estimate Normal Large Platelets Present Poikilocytosis (manual Slight Anisocytosis (manual) Slight Acanthocytes (Spur) Slight PT INR APTT pO2 46 VBG pH 7.52 H VBG pCO2 40 VBG HCO3 31.6 VBG Total CO2 33.9 H VBG O2 Sat (Calc) 88.1 H VBG Base Excess 9.0 H VBG Potassium 4.5 A-a O2 Difference 54.0 Sodium 134.0 139 Chloride 99.0 97 L Glucose 180 H Lactate 2.7 H FiO2 21.0 Potassium 4.1 Carbon Dioxide 28 Anion Gap 18 BUN 19 H Creatinine 0.5 L Est GFR ( Amer) > 60 Est GFR (Non-Af Amer) > 60 Random Glucose 160 H Calcium 9.5 Phosphorus 2.9 Magnesium 2.4 H Total Bilirubin 2.5 H AST 52 H D ALT 26 Alkaline Phosphatase 145 H D Total Protein 7.8 Albumin 3.8 Globulin 4.0 H Albumin/Globulin Ratio 1.0 Venous Blood Potassium 4.5 05/25/17 13:10 WBC RBC Hgb Hct MCV MCH MCHC RDW Plt Count MPV Neut % (Auto) Lymph % (Auto) Eagle % (Auto) Eos % (Auto) Baso % (Auto) Neut # Lymph # Eagle # Eos # Baso # Neutrophils % (Manual) Band Neutrophils % Lymphocytes % (Manual) Monocytes % (Manual) Hypersegmented Polys Platelet Estimate Large Platelets Poikilocytosis (manual Anisocytosis (manual) Acanthocytes (Spur) PT 20.5 H INR 1.8 H APTT 26.4 pO2 VBG pH VBG pCO2 VBG HCO3 VBG Total CO2 VBG O2 Sat (Calc) VBG Base Excess VBG Potassium A-a O2 Difference Sodium Chloride Glucose Lactate FiO2 Potassium Carbon Dioxide Anion Gap BUN Creatinine Est GFR ( Amer) Est GFR (Non-Af Amer) Random Glucose Calcium Phosphorus Magnesium Total Bilirubin AST ALT Alkaline Phosphatase Total Protein Albumin Globulin Albumin/Globulin Ratio Venous Blood Potassium - Imaging and Cardiology Chest x-ray Status: Image reviewed by me, Report reviewed by me Additional comment: IMPRESSION: Interval increase bibasilar discoid atelectasis. Concomitant small patchy infiltrates at both lung bases not excluded. Chronically prominent diffuse mild interstitial lung markings CT scan - chest Status: Image reviewed by me, Report reviewed by me Additional comment: FINDINGS: PULMONARY ARTERIES: Unremarkable. No pulmonary embolism. AORTA: No acute findings. No thoracic aortic aneurysm. LUNGS: Trace bilateral pleural effusion and lower lobe subsegmental atelectasis, possibly compressive atelectasis secondary to the pleural effusions. No magdalena pulmonary infiltrate. No pulmonary mass. PLEURAL SPACES: As above, trace bilateral pleural effusion. No pneumothorax. HEART: Mild cardiomegaly. Coronary arterial calcification. No mediastinal lymphadenopathy. Nodular sub carinal calcification consistent with calcified old granulomatous disease. Rounded low-density anterior mediastinal mass now measures 1.3 cm in the transverse plane, previously 1.8 cm. It measures 24 Hounsfield units. This is slightly higher in attenuation than on prior examination. Nevertheless, given the attenuation of -[address], likely small mediastinal cyst of uncertain significance, decreasing in size. No other mediastinal mass identified. . LYMPH NODES: No lymphadenopathy. BONES, CHEST WALL: Multiple lower thoracic vertebral compression fractures unchanged from prior CT examination. Most severe compression deformity at T12. There is also compression deformity of the T10 and T11 vertebra. There is minimal increase in compression deformity of the T9 vertebra. There is mild central compression deformity of the T5 and T6 vertebrae. In retrospect, this was present on prior examination as well. IMPRESSION: No evidence of pulmonary embolism. Trace bilateral pleural effusion. Minimal bilateral lower lobe subsegmental atelectasis. Multiple thoracic vertebral compression fractures with minimal change from 10/25/2016. CT scan - abdomen Status: Image reviewed by me, Report reviewed by me Additional comment: FINDINGS: PULMONARY ARTERIES: Unremarkable. No pulmonary embolism. AORTA: No acute findings. No thoracic aortic aneurysm. LUNGS: Trace bilateral pleural effusion and lower lobe subsegmental atelectasis, possibly compressive atelectasis secondary to the pleural effusions. No magdalena pulmonary infiltrate. No pulmonary mass. PLEURAL SPACES: As above, trace bilateral pleural effusion. No pneumothorax. HEART: Mild cardiomegaly. Coronary arterial calcification. No mediastinal lymphadenopathy. Nodular sub carinal calcification consistent with calcified old granulomatous disease. Rounded low-density anterior mediastinal mass now measures 1.3 cm in the transverse plane, previously 1.8 cm. It measures 24 Hounsfield units. This is slightly higher in attenuation than on prior examination. Nevertheless, given the attenuation of -[address], likely small mediastinal cyst of uncertain significance, decreasing in size. No other mediastinal mass identified. . LYMPH NODES: No lymphadenopathy. BONES, CHEST WALL: Multiple lower thoracic vertebral compression fractures unchanged from prior CT examination. Most severe compression deformity at T12. There is also compression deformity of the T10 and T11 vertebra. There is minimal increase in compression deformity of the T9 vertebra. There is mild central compression deformity of the T5 and T6 vertebrae. In retrospect, this was present on prior examination as well. OTHER FINDINGS: Unremarkable. IMPRESSION: No evidence of pulmonary embolism. Trace bilateral pleural effusion. Minimal bilateral lower lobe subsegmental atelectasis. Multiple thoracic vertebral compression fractures with minimal change from 10/25/2016. US - abdomen Status: Image reviewed by me Additional comment: LIVER: Measures 16.4 cm in length and appears unremarkable. No focal hepatic mass identified. The main portal vein appears patent with normal directional flow. No intrahepatic bile duct dilatation. GALLBLADDER: Gallbladder sludge. No gallstones. Gallbladder wall thickening/ pericholecystic edema measuring approximately 7 mm. Negative sonographic Roland's sign as assessed by the industrial servicer. COMMON BILE DUCT: Measures approximately 7 mm. PANCREAS: Not well-visualized. RIGHT KIDNEY: Measures 8.6 x 3.9 x 4.8 cm. No obstructing calculus or hydronephrosis identified. AORTA: Limited visualization appears grossly unremarkable. IVC: Limited visualization appears grossly unremarkable. OTHER FINDINGS: None . IMPRESSION: Gallbladder wall thickening/pericholecystic edema. Gallbladder sludge. Positive sonographic Roland's sign as assessed by the industrial servicer. Correlate clinically for possibility of acute cholecystitis. Assessment & Plan - Assessment and Plan (Free Text) Assessment: #. Acute Cholecystitis #. Severe Sepsis #. Leukocytosis #. dehydration #. Coagulopathy #. Hx of Seizure #. Hx of Dementia #. Asthma/COPD Plan: 82 years old female From the [facility] , with hx of Seizure, HTN, dementia, last admitted on 05/05/17 and discharged on 05/23/17 with dx of Left Femur fracture and underwent ORIF surgery. She is sent to the ED because of fever and tachycardia today. No added information of additional symptoms at this time. #. Acute Cholecystitis - Consult Dr Yi surgery - Pain management - Patient placed on Clindamycin/Ciprofloxacin/Aztreonam #. Severe Sepsis - Consult Dr Roper covering for Dr Reynolds - Follow blood and Urine cultures - Patient placed on Clindamycin/Ciprofloxacin/ Aztreonam - IVZ fluids #. Leukocytosis - follow WBC #. Dehydration - IV fluids #. Coagulopathy with unclear etiology - Administer Vitamin K - Follow INR #. Hx of Seizure - Lamotragine #. Hx of Dementia #. Asthma/COPD - Duoneb PRN #. DVT Prophylaxis SCD - Date & Time Date: 05/25/17 Time: 23:34
[2017-05-26] MEDS ORDERED: metroNIDAZOLE 500mg/100ml NS 100 ML IVPB SCH (01:00)
[2017-05-26] MEDS: HYDROmorphone 0.5 mg/0.5 ml ISec IVP PRN ×2 (01:15→15:30)
--- NOTE | 2017-05-26 01:19 | PCM.SEPTIC ---
Sepsis Progress Note - Reassessment Type Date of Evaluation: 05/25/17 Time of Evaluation: 22:54 Reassessment Type: Non-invasive reassessment - Non Invasive Reassessment Were the most recent vital sign reviewed: Yes Vital Sign (Latest): Temp Pulse Resp BP Pulse Ox 98.0 F 119 H 25 H 134/72 99 05/25/17 17:15 05/26/17 00:35 05/26/17 00:35 05/26/17 00:35 05/26/17 00:35 Cardiovascular: Yes: Tachycardia. No: Chest Non Tender, Edema Respiratory: Yes: Rales Capillary Refill: Normal (Less than 2 sec) Pulses: Normal Radial, Normal Dorsalis Pedis, Normal Posterior Tibialis Skin: Normal Color, Warm, Dry - Invasive Reassessment (complete 2 of 4) Was a Central Venous Pressure Measurement obtained within 6 Hours after the presentation of septic shock: No Was a central venous oxygen measurement obtained within 6 hours after the presentation of septic shock: No Was a bedside cardiovascular ultrasound performed within 6 hours after the presentation of septic shock: No Was a passive leg raise performed or was a fluid challenge performed within 6 hrs of the initial fluid bolus: Yes Fluid Challenge performed: Yes
[2017-05-26] MEDS ORDERED: Phytonadione 10 mg/ml Inj (Adult) SC ONE (01:30)
[2017-05-26] MEDS: Aztreonam 1 GM in Sodium Chloride 0.9% 100 ML IVPB SCH ×3 (01:37→21:46)
[2017-05-26] MEDS ORDERED: Sodium Chloride 0.9% 1,000 ML IV SCH ×2 (01:45→06:34)
[2017-05-26] MEDS ORDERED: Ciprofloxacin 400mg/200ml D5W 400 MG/200 ML BAG IVPB SCH (06:00)
[2017-05-26 06:01] LABS: BASO % 0.1 % (0.0-2.0); EOS % 0.1 % (0.0-4.0); HEMOGLOBIN 10.6 g/dL (12.0-16.0); LYMPH # 0.5 K/uL (1.0-4.3); LYMPH % 2.4 % (20.0-40.0); MEAN CELL VOLUME 88.1 fl (81.0-99.0); MEAN CORPUSCULAR HGB CONC 31.8 g/dL (33.0-37.0); MEAN PLATELET VOLUME 9.2 fl (7.2-11.7); MONO # 1.3 K/uL (0.0-0.8); MONO % 7.2 % (0.0-10.0); NEUT # 16.8 K/uL (1.8-7.0); NEUT % 90.2 % (50.0-75.0); RBC 3.77 Mil/uL (3.80-5.20); RED CELL DISTRIBUTION WIDTH 16.4 % (11.5-14.5); WHITE BLOOD COUNT 18.6 K/uL (4.8-10.8)
[2017-05-26 06:04] LABS: INR 1.9 (0.9-1.2); PROTHROMBIN TIME 20.9 Seconds (9.8-13.1)
[2017-05-26 06:14] LABS: BLOOD UREA NITROGEN 15 mg/dl (7-17); CALCIUM 8.6 mg/dL (8.4-10.2); GFR AFRICAN-AMERICAN > 60; GFR NON-AFRICAN AMERICAN > 60
--- NOTE | 2017-05-26 08:01 | CP.PCM.PN ---
<Yayo Carreon - Last Filed: 05/26/17 08:02> Subjective - Date & Time of Evaluation Date of Evaluation: 05/26/17 Time of Evaluation: 07:58 - Subjective Subjective: General Surgery: Dr Lucio/Elliot Pt S&E. Admitted to ICU last night for sepsis, presumably 2/2 cholecystitis. Pt is more awake now, responds to questioning but only with simple head nods. Pt has pain in RUQ/LUQ. Making >50cc/hr of dark concentrated urine since baeza placement and IV hydration. Abx started empirically by ID. Pt remains tachycardic but normotensive. No episodes of emesis since admission. This morning leukocytosis is mildly improved. INR remains elevated. No LFTs back yet. K+ replaced via IVPB. Objective - Vital Signs/Intake and Output Vital Signs (last 24 hours): Temp Pulse Resp BP Pulse Ox 99 F 88 96 H 110/63 96 05/26/17 04:00 05/26/17 04:00 05/26/17 04:00 05/26/17 04:00 05/26/17 04:00 Intake and Output: 05/26/17 05/26/17 06:59 18:59 Intake Total 1200 Output Total 350 Balance 850 - Medications Medications: Current Medications Acetaminophen (Tylenol 650 Mg Supp) 650 mg UT Q6 PRN PRN Reason: Fever >100.4 F Hydromorphone HCl (Dilaudid) 0.5 mg IVP Q6H PRN PRN Reason: Other Stop: 05/28/17 00:47 Last Admin: 05/26/17 01:15 Dose: 0.5 mg Ciprofloxacin (Cipro 400mg/200ml Dsw) 400 mg in 200 mls @ 200 mls/hr IVPB Q12 BELLE PRN Reason: Protocol Last Admin: 05/26/17 06:22 Dose: 200 mls/hr Clindamycin Phosphate 600 mg/ (Sodium Chloride) 54 mls @ 54 mls/hr IVPB Q8 BELLE PRN Reason: Protocol Last Admin: 05/26/17 02:44 Dose: 54 mls/hr Aztreonam 1 gm/ Sodium (Chloride) 100 mls @ 100 mls/hr IVPB Q12 BELLE PRN Reason: Protocol Last Admin: 05/26/17 01:37 Dose: 100 mls/hr Sodium Chloride (Sodium Chloride 0.9%) 1,000 mls @ 100 mls/hr IV .Q10H BELLE Stop: 05/26/17 22:09 Ondansetron HCl (Zofran Inj) 4 mg IVP Q6 PRN PRN Reason: Nausea/Vomiting - Labs Labs: 05/26/17 04:45 05/26/17 04:45 PT 20.9 Seconds (9.8-13.1) H 05/26/17 04:45 INR 1.9 (0.9-1.2) H 05/26/17 04:45 APTT 26.4 Seconds (25.6-37.1) 05/25/17 13:10 - Constitutional Appears: Toxic - ENT Exam ENT Exam: Mucous Membranes Dry - Respiratory Exam Respiratory Exam: absent: Respiratory Distress - Cardiovascular Exam Cardiovascular Exam: Tachycardia, REGULAR RHYTHM - GI/Abdominal Exam GI & Abdominal Exam: Soft, Tenderness (RUQ). absent: Distended, Firm, Guarding , Hernia, Mass - Extremities Exam Extremities Exam: Pedal Edema - Neurological Exam Neurological Exam: Awake. absent: Alert, Oriented x3 - Skin Skin Exam: Dry Assessment and Plan - Assessment and Plan (Free Text) Assessment: 82M with sepsis likely 2/2 cholecystitis Plan: IV fluids switched to 100/hr given b/l pleural effusions cont IV abx as per ID given pt comorbidities possible cholecystostomy tube needed in future but case must be d/w attending will give further recs upon attending eval will d/w Dr Zarate and/or Naveed Carreon, PGY3 <Josh Zarate - Last Filed: 05/26/17 10:45> Subjective - Date & Time of Evaluation Time of Evaluation: 10:00 - Subjective Subjective: Patient was seen and examined at the bedside. Agree with resident's note above. Objective - Vital Signs/Intake and Output Vital Signs (last 24 hours): Temp Pulse Resp BP Pulse Ox 99.2 F 104 H 21 122/55 L 95 05/26/17 08:00 05/26/17 08:00 05/26/17 08:00 05/26/17 08:00 05/26/17 08:00 Intake and Output: 05/26/17 05/26/17 06:59 18:59 Intake Total 1200 450 Output Total 350 Balance 850 450 - Medications Medications: Current Medications Acetaminophen (Tylenol 650 Mg Supp) 650 mg UT Q6 PRN PRN Reason: Fever >100.4 F Enoxaparin Sodium (Lovenox) 40 mg SC DAILY BELLE PRN Reason: Protocol Fentanyl (Duragesic) 1 patch TD Q3D BELLE PRN Reason: Protocol Hydromorphone HCl (Dilaudid) 0.5 mg IVP Q6H PRN PRN Reason: Other Stop: 05/28/17 00:47 Last Admin: 05/26/17 01:15 Dose: 0.5 mg Ciprofloxacin (Cipro 400mg/200ml Dsw) 400 mg in 200 mls @ 200 mls/hr IVPB Q12 BELLE PRN Reason: Protocol Last Admin: 05/26/17 06:22 Dose: 200 mls/hr Aztreonam 1 gm/ Sodium (Chloride) 100 mls @ 100 mls/hr IVPB Q12 BELLE PRN Reason: Protocol Last Admin: 05/26/17 01:37 Dose: 100 mls/hr Sodium Chloride (Sodium Chloride 0.9%) 1,000 mls @ 100 mls/hr IV .Q10H [facility] Stop: 05/26/17 22:09 Potassium Chloride 10 meq/ (Sodium Chloride) 105 mls @ 105 mls/hr IV Q1H [facility] Stop: 05/26/17 12:14 Clindamycin Phosphate (Cleocin In Normal Saline) 600 mg in 50 mls @ 50 mls/hr IVPB Q8 BELLE PRN Reason: Protocol Nitroglycerin (Nitro-Dur 0.2 Mg/Hr Patch) 1 patch TD DAILY [facility] Ondansetron HCl (Zofran Inj) 4 mg IVP Q6 PRN PRN Reason: Nausea/Vomiting Pantoprazole Sodium (Protonix Inj) 40 mg IVP DAILY [facility] - Labs Labs: 05/26/17 04:45 05/26/17 04:45 PT 20.9 Seconds (9.8-13.1) H 05/26/17 04:45 INR 1.9 (0.9-1.2) H 05/26/17 04:45 APTT 26.4 Seconds (25.6-37.1) 05/25/17 13:10 Assessment and Plan - Assessment and Plan (Free Text) Plan: - Keep NPO - IV fluids - pain control - Continue antibiotics as per ID - Interventional Radiology consult for cholecystostomy tube - No general surgery intervention at present time - Repeat labs in am - Will follow
[2017-05-26] MEDS ORDERED: Potassium CL 10mEq/100ml 100 ML IVPB SCH (09:00)
[2017-05-26] MEDS ORDERED: Aztreonam 1 GM in Sodium Chloride 0.9% 100 ML IVPB SCH (09:00)
[2017-05-26] MEDS ORDERED: Clindamycin 600mg/50ml NS 600 MG/50 ML BAG IVPB SCH (09:00)
--- NOTE | 2017-05-26 10:19 | CP.CCUPN ---
CCU Subjective - Physician Review Subjective (Free Text): Events since admission overnight noted, still has intermittent pain, and c/o leg /foot pain which are chronic symptoms. On NSS at 100ml/hr, hemodynamics have been essentially stable, lactate levels have cleared within 2 hours of initial level elevation to 2.7, then down to 1.0. No fever spikes overnight. She remains NPO as per Surgery. Denies any nausea or vomiting, chills. ROS: No other pertinent negs or positives on 10+ system review unobtainable due to [place]. NH Meds reviewed. Allergies: Penicillin PMSFH: All other Nursing and physician documentation reviewed to date; no new pertinent info noted relevant to current medical problems. CXR: ( my interp): small bilat effusions, bibasilar interstitial changes. IMPRESSION / MAJOR PROBLEMS NOW: 1. Acalculus Cholecystitis 2. Sepsis without shock state 2 #1 3. Dehydration 4. s/p Left ORIF approx. 3 weeks ago. 5. Chronic disease Anemia PLAN: 1. Ongoing, empiric abx, NPO state unless cleared by Gen Surgery, IVF hydration. 2. Resume anticoagulation with DVT dose of Lovenox for now, need clarification if patient was on formal therapeutic anticoagulation post hip surgery. SCDs already ordered. 3. Resume Topical nitrates, Duragesic patch, PPI via IV route while NPO. 4. K repletion ordered. 5. Medically stable for continued mgmt. on Telemetry. CCU Objective - Vital Signs / Intake & Output Vital Signs (Last 4 hours): Vital Signs Temp Pulse Resp BP Pulse Ox 05/26/17 08:00 99.2 F 104 H 21 122/55 L 95 Intake and Output (Last 8hrs): Intake & Output 05/25/17 05/26/17 05/26/17 22:59 06:59 14:59 Intake Total 1200 450 Output Total 350 Balance 850 450 Weight 140 lb 140 lb Intake: IV 900 450 Intake, Piggyback 300 Oral 0 Output: Urine 350 Urethral ([place]) 350 - Physical Exam Physical Exam Limitations: Positive for: Other (Severe Dementia) Pupils: Positive for: PERRL Extroacular Muscles: Positive for: EOMI Conjunctiva: Negative for: Icteric Mouth: Positive for: Dry Respiratory/Chest: Positive for: Clear to Auscultation, Decreased Breath Sounds. Negative for: Accessory Muscle Use Cardiovascular: Positive for: Regular Rate and Rhythm. Negative for: Murmurs, Rub Abdomen: Positive for: Tenderness (RUQ and RLQ), Normal Bowel Sounds (hypoactive ). Negative for: Distention, Mass/Organomegaly Lower Extremity: Positive for: Edema, NORMAL PULSES. Negative for: CALF TENDERNESS, Cyanosis Neurological: Positive for: Motor Func Grossly Intact Skin: Positive for: Warm, Dry. Negative for: Rashes Psychiatric: Positive for: Other (Dementia) - Medications Active Medications: Active Medications Generic Name Dose Route Start Last Admin Trade Name Freq PRN Reason Stop Dose Admin Acetaminophen 650 mg 05/25/17 22:28 Tylenol 650 Mg Supp PA Q6 PRN Fever >100.4 F Enoxaparin Sodium 40 mg 05/26/17 09:45 Lovenox SC DAILY [facility] Protocol Fentanyl 1 patch 05/26/17 09:45 Duragesic TD Q3D [facility] Protocol Hydromorphone HCl 0.5 mg 05/26/17 00:46 05/26/17 01:15 Dilaudid IVP 05/28/17 00:47 0.5 mg Q6H PRN Administration Other Ciprofloxacin 400 mg in 200 mls @ 200 mls/hr 05/26/17 06:00 05/26/17 06:22 Cipro 400mg/200ml Dsw IVPB 200 mls/hr Q12 BELLE Administration Protocol Aztreonam 1 gm/ Sodium 100 mls @ 100 mls/hr 05/25/17 23:00 05/26/17 01:37 Chloride IVPB 100 mls/hr Q12 BELLE Administration Protocol Sodium Chloride 1,000 mls @ 100 mls/hr 05/26/17 06:34 Sodium Chloride 0.9% IV 05/26/17 22:09 .Q10H BELLE Potassium Chloride 10 meq/ 105 mls @ 105 mls/hr 05/26/17 08:15 Sodium Chloride IV 05/26/17 12:14 Q1H BELLE Clindamycin Phosphate 600 mg in 50 mls @ 50 mls/hr 05/26/17 09:00 Cleocin In Normal Saline IVPB Q8 [facility] Protocol Nitroglycerin 1 patch 05/26/17 10:00 Nitro-Dur 0.2 Mg/Hr Patch TD DAILY [facility] Ondansetron HCl 4 mg 05/25/17 22:08 Zofran Inj IVP Q6 PRN Nausea/Vomiting Pantoprazole Sodium 40 mg 05/26/17 10:00 Protonix Inj IVP DAILY BELLE - Patient Studies Lab Studies: Lab Studies 05/26/17 05/26/17 05/26/17 Range/Units 04:45 04:45 04:45 WBC 18.6 H (4.8-10.8) K/uL RBC 3.77 L (3.80-5.20) Mil/uL Hgb 10.6 L (12.0-16.0) g/dL Hct 33.2 L (34.0-47.0) % MCV 88.1 (81.0-99.0) fl MCH 28.0 (27.0-31.0) pg MCHC 31.8 L (33.0-37.0) g/dL RDW 16.4 H (11.5-14.5) % Plt Count 185 (130-400) K/uL MPV 9.2 (7.2-11.7) fl Neut % (Auto) 90.2 H (50.0-75.0) % Lymph % (Auto) 2.4 L (20.0-40.0) % Reagan % (Auto) 7.2 (0.0-10.0) % Eos % (Auto) 0.1 (0.0-4.0) % Baso % (Auto) 0.1 (0.0-2.0) % Neut # 16.8 H (1.8-7.0) K/uL Lymph # 0.5 L (1.0-4.3) K/uL Reagan # 1.3 H (0.0-0.8) K/uL Eos # 0.0 (0.0-0.7) K/uL Baso # 0.0 (0.0-0.2) K/uL Total Counted Cancelled Neutrophils % (Manual) Cancelled (42-75) % Band Neutrophils % Cancelled (0-2) % Lymphocytes % (Manual) Cancelled (20-50) % Reactive Lymphs % Cancelled Monocytes % (Manual) Cancelled (0-10) % Eosinophils % (Manual) Cancelled Basophils % (Manual) Cancelled Metamyelocytes % Cancelled Myelocytes % Cancelled Promyelocytes % Cancelled Blast Cells % Cancelled Plasma Cell % (Manual) Cancelled Nucleated RBC % Cancelled Hypersegmented Polys Cancelled Smudge Cells Cancelled Toxic Granulation Cancelled Dohle Bodies Cancelled [place] Rods Cancelled Platelet Estimate Cancelled (NORMAL) Plt Clumps, EDTA Cancelled Large Platelets Cancelled Giant Platelets Cancelled RBC Morphology Cancelled Polychromasia Cancelled Hypochromasia (manual) Cancelled Poikilocytosis (manual Cancelled Basophilic Stippling Cancelled Anisocytosis (manual) Cancelled Microcytosis (manual) Cancelled Macrocytosis (manual) Cancelled Spherocytes Cancelled Sickle Cells Cancelled Target Cells Cancelled Tear Drop Cells Cancelled Ovalocytes Cancelled Stomatocytes Cancelled Helmet Cells Cancelled [place] Bodies Cancelled [place] Cells Cancelled Acanthocytes (Spur) Cancelled Rouleaux Cancelled Schistocytes Cancelled PT 20.9 H (9.8-13.1) Seconds INR 1.9 H (0.9-1.2) APTT (25.6-37.1) Seconds pO2 (30-55) mm/Hg VBG pH (7.32-7.43) VBG pCO2 (40-60) mmHg VBG HCO3 mmol/L VBG Total CO2 (22-28) mmol/L VBG O2 Sat (Calc) (40-65) % VBG Base Excess (0.0-2.0) mmol/L VBG Potassium (3.6-5.2) mmol/L A-a O2 Difference mm/Hg Sodium 142 (132-148) mmol/L Chloride 104 (98-107) mmol/L Glucose (65-105) mg/dL Lactate (0.7-2.1) mmol/L FiO2 % Potassium 3.2 L (3.6-5.0) MMOL/L Carbon Dioxide 29 (22-30) mmol/L Anion Gap 12 (10-20) BUN 15 (7-17) mg/dl Creatinine 0.4 L (0.7-1.2) mg/dl Est GFR ( Amer) > 60 Est GFR (Non-Af Amer) > 60 Random Glucose 110 H (65-105) mg/dL Lactic Acid (0.7-2.1) MMOL/L Calcium 8.6 (8.4-10.2) mg/dL Phosphorus (2.5-4.5) mg/dl Magnesium (1.6-2.3) MG/DL Total Bilirubin (0.2-1.3) mg/dl AST (14-36) U/L ALT (9-52) U/L Alkaline Phosphatase (38-126) U/L Total Protein (6.3-8.2) G/DL Albumin (3.5-5.0) g/dL Globulin (2.2-3.9) gm/dL Albumin/Globulin Ratio (1.0-2.1) Venous Blood Potassium (3.6-5.2) mmol/L 05/26/17 05/25/17 05/25/17 Range/Units 01:30 13:10 13:10 WBC (4.8-10.8) K/uL RBC (3.80-5.20) Mil/uL Hgb (12.0-16.0) g/dL Hct (34.0-47.0) % MCV (81.0-99.0) fl MCH (27.0-31.0) pg MCHC (33.0-37.0) g/dL RDW (11.5-14.5) % Plt Count (130-400) K/uL MPV (7.2-11.7) fl Neut % (Auto) (50.0-75.0) % Lymph % (Auto) (20.0-40.0) % Reagan % (Auto) (0.0-10.0) % Eos % (Auto) (0.0-4.0) % Baso % (Auto) (0.0-2.0) % Neut # (1.8-7.0) K/uL Lymph # (1.0-4.3) K/uL Reagan # (0.0-0.8) K/uL Eos # (0.0-0.7) K/uL Baso # (0.0-0.2) K/uL Total Counted Neutrophils % (Manual) (42-75) % Band Neutrophils % (0-2) % Lymphocytes % (Manual) (20-50) % Reactive Lymphs % Monocytes % (Manual) (0-10) % Eosinophils % (Manual) Basophils % (Manual) Metamyelocytes % Myelocytes % Promyelocytes % Blast Cells % Plasma Cell % (Manual) Nucleated RBC % Hypersegmented Polys Smudge Cells Toxic Granulation Dohle Bodies [place] Rods Platelet Estimate (NORMAL) Plt Clumps, EDTA Large Platelets Giant Platelets RBC Morphology Polychromasia Hypochromasia (manual) Poikilocytosis (manual Basophilic Stippling Anisocytosis (manual) Microcytosis (manual) Macrocytosis (manual) Spherocytes Sickle Cells Target Cells Tear Drop Cells Ovalocytes Stomatocytes Helmet Cells [place] Bodies Michelle Cells Acanthocytes (Spur) Rouleaux Schistocytes PT 20.5 H (9.8-13.1) Seconds INR 1.8 H (0.9-1.2) APTT 26.4 (25.6-37.1) Seconds pO2 (30-55) mm/Hg VBG pH (7.32-7.43) VBG pCO2 (40-60) mmHg VBG HCO3 mmol/L VBG Total CO2 (22-28) mmol/L VBG O2 Sat (Calc) (40-65) % VBG Base Excess (0.0-2.0) mmol/L VBG Potassium (3.6-5.2) mmol/L A-a O2 Difference mm/Hg Sodium 139 (132-148) mmol/L Chloride 97 L (98-107) mmol/L Glucose (65-105) mg/dL Lactate (0.7-2.1) mmol/L FiO2 % Potassium 4.1 (3.6-5.0) MMOL/L Carbon Dioxide 28 (22-30) mmol/L Anion Gap 18 (10-20) BUN 19 H (7-17) mg/dl Creatinine 0.5 L (0.7-1.2) mg/dl Est GFR ( Amer) > 60 Est GFR (Non-Af Amer) > 60 Random Glucose 160 H (65-105) mg/dL Lactic Acid 1.0 (0.7-2.1) MMOL/L Calcium 9.5 (8.4-10.2) mg/dL Phosphorus 2.9 (2.5-4.5) mg/dl Magnesium 2.4 H (1.6-2.3) MG/DL Total Bilirubin 2.5 H (0.2-1.3) mg/dl AST 52 H D (14-36) U/L ALT 26 (9-52) U/L Alkaline Phosphatase 145 H D (38-126) U/L Total Protein 7.8 (6.3-8.2) G/DL Albumin 3.8 (3.5-5.0) g/dL Globulin 4.0 H (2.2-3.9) gm/dL Albumin/Globulin Ratio 1.0 (1.0-2.1) Venous Blood Potassium (3.6-5.2) mmol/L 05/25/17 05/25/17 Range/Units 13:10 12:53 WBC 26.1 H D (4.8-10.8) K/uL RBC 4.25 (3.80-5.20) Mil/uL Hgb 11.8 L (12.0-16.0) g/dL Hct 37.4 (34.0-47.0) % MCV 87.9 (81.0-99.0) fl MCH 27.8 (27.0-31.0) pg MCHC 31.7 L (33.0-37.0) g/dL RDW 15.8 H (11.5-14.5) % Plt Count 232 (130-400) K/uL MPV 8.9 (7.2-11.7) fl Neut % (Auto) 88.9 H (50.0-75.0) % Lymph % (Auto) 2.5 L (20.0-40.0) % Reagan % (Auto) 8.1 (0.0-10.0) % Eos % (Auto) 0.0 (0.0-4.0) % Baso % (Auto) 0.5 (0.0-2.0) % Neut # 23.2 H (1.8-7.0) K/uL Lymph # 0.7 L (1.0-4.3) K/uL Reagan # 2.1 H (0.0-0.8) K/uL Eos # 0.0 (0.0-0.7) K/uL Baso # 0.1 (0.0-0.2) K/uL Total Counted Neutrophils % (Manual) 83 H (42-75) % Band Neutrophils % 5 H (0-2) % Lymphocytes % (Manual) 4 L (20-50) % Reactive Lymphs % Monocytes % (Manual) 8 (0-10) % Eosinophils % (Manual) Basophils % (Manual) Metamyelocytes % Myelocytes % Promyelocytes % Blast Cells % Plasma Cell % (Manual) Nucleated RBC % Hypersegmented Polys Present Smudge Cells Toxic Granulation Dohle Bodies [place] Rods Platelet Estimate Normal (NORMAL) Plt Clumps, EDTA Large Platelets Present Giant Platelets RBC Morphology Polychromasia Hypochromasia (manual) Poikilocytosis (manual Slight Basophilic Stippling Anisocytosis (manual) Slight Microcytosis (manual) Macrocytosis (manual) Spherocytes Sickle Cells Target Cells Tear Drop Cells Ovalocytes Stomatocytes Helmet Cells [place] Bodies Michelle Cells Acanthocytes (Spur) Slight Rouleaux Schistocytes PT (9.8-13.1) Seconds INR (0.9-1.2) APTT (25.6-37.1) Seconds pO2 46 (30-55) mm/Hg VBG pH 7.52 H (7.32-7.43) VBG pCO2 40 (40-60) mmHg VBG HCO3 31.6 mmol/L VBG Total CO2 33.9 H (22-28) mmol/L VBG O2 Sat (Calc) 88.1 H (40-65) % VBG Base Excess 9.0 H (0.0-2.0) mmol/L VBG Potassium 4.5 (3.6-5.2) mmol/L A-a O2 Difference 54.0 mm/Hg Sodium 134.0 (132-148) mmol/L Chloride 99.0 (98-107) mmol/L Glucose 180 H (65-105) mg/dL Lactate 2.7 H (0.7-2.1) mmol/L FiO2 21.0 % Potassium (3.6-5.0) MMOL/L Carbon Dioxide (22-30) mmol/L Anion Gap (10-20) BUN (7-17) mg/dl Creatinine (0.7-1.2) mg/dl Est GFR ( Amer) Est GFR (Non-Af Amer) Random Glucose (65-105) mg/dL Lactic Acid (0.7-2.1) MMOL/L Calcium (8.4-10.2) mg/dL Phosphorus (2.5-4.5) mg/dl Magnesium (1.6-2.3) MG/DL Total Bilirubin (0.2-1.3) mg/dl AST (14-36) U/L ALT (9-52) U/L Alkaline Phosphatase (38-126) U/L Total Protein (6.3-8.2) G/DL Albumin (3.5-5.0) g/dL Globulin (2.2-3.9) gm/dL Albumin/Globulin Ratio (1.0-2.1) Venous Blood Potassium 4.5 (3.6-5.2) mmol/L Laboratory Results - last 24 hr 05/25/17 05/25/17 05/25/17 12:53 13:10 13:10 WBC 26.1 H D RBC 4.25 Hgb 11.8 L Hct 37.4 MCV 87.9 MCH 27.8 MCHC 31.7 L RDW 15.8 H Plt Count 232 MPV 8.9 Neut % (Auto) 88.9 H Lymph % (Auto) 2.5 L Reagan % (Auto) 8.1 Eos % (Auto) 0.0 Baso % (Auto) 0.5 Neut # 23.2 H Lymph # 0.7 L Reagan # 2.1 H Eos # 0.0 Baso # 0.1 Total Counted Neutrophils % (Manual) 83 H Band Neutrophils % 5 H Lymphocytes % (Manual) 4 L Reactive Lymphs % Monocytes % (Manual) 8 Eosinophils % (Manual) Basophils % (Manual) Metamyelocytes % Myelocytes % Promyelocytes % Blast Cells % Plasma Cell % (Manual) Nucleated RBC % Hypersegmented Polys Present Smudge Cells Toxic Granulation Dohle Bodies [place] Rods Platelet Estimate Normal Plt Clumps, EDTA Large Platelets Present Giant Platelets RBC Morphology Polychromasia Hypochromasia (manual) Poikilocytosis (manual Slight Basophilic Stippling Anisocytosis (manual) Slight Microcytosis (manual) Macrocytosis (manual) Spherocytes Sickle Cells Target Cells Tear Drop Cells Ovalocytes Stomatocytes Helmet Cells [place] Bodies Michelle Cells Acanthocytes (Spur) Slight Rouleaux Schistocytes PT INR APTT pO2 46 VBG pH 7.52 H VBG pCO2 40 VBG HCO3 31.6 VBG Total CO2 33.9 H VBG O2 Sat (Calc) 88.1 H VBG Base Excess 9.0 H VBG Potassium 4.5 A-a O2 Difference 54.0 Sodium 134.0 139 Chloride 99.0 97 L Glucose 180 H Lactate 2.7 H FiO2 21.0 Potassium 4.1 Carbon Dioxide 28 Anion Gap 18 BUN 19 H Creatinine 0.5 L Est GFR ( Amer) > 60 Est GFR (Non-Af Amer) > 60 Random Glucose 160 H Lactic Acid Calcium 9.5 Phosphorus 2.9 Magnesium 2.4 H Total Bilirubin 2.5 H AST 52 H D ALT 26 Alkaline Phosphatase 145 H D Total Protein 7.8 Albumin 3.8 Globulin 4.0 H Albumin/Globulin Ratio 1.0 Venous Blood Potassium 4.5 05/25/17 05/26/17 05/26/17 13:10 01:30 04:45 WBC 18.6 H RBC 3.77 L Hgb 10.6 L Hct 33.2 L MCV 88.1 MCH 28.0 MCHC 31.8 L RDW 16.4 H Plt Count 185 MPV 9.2 Neut % (Auto) 90.2 H Lymph % (Auto) 2.4 L Reagan % (Auto) 7.2 Eos % (Auto) 0.1 Baso % (Auto) 0.1 Neut # 16.8 H Lymph # 0.5 L Reagan # 1.3 H Eos # 0.0 Baso # 0.0 Total Counted Cancelled Neutrophils % (Manual) Cancelled Band Neutrophils % Cancelled Lymphocytes % (Manual) Cancelled Reactive Lymphs % Cancelled Monocytes % (Manual) Cancelled Eosinophils % (Manual) Cancelled Basophils % (Manual) Cancelled Metamyelocytes % Cancelled Myelocytes % Cancelled Promyelocytes % Cancelled Blast Cells % Cancelled Plasma Cell % (Manual) Cancelled Nucleated RBC % Cancelled Hypersegmented Polys Cancelled Smudge Cells Cancelled Toxic Granulation Cancelled Dohle Bodies Cancelled [place] Rods Cancelled Platelet Estimate Cancelled Plt Clumps, EDTA Cancelled Large Platelets Cancelled Giant Platelets Cancelled RBC Morphology Cancelled Polychromasia Cancelled Hypochromasia (manual) Cancelled Poikilocytosis (manual Cancelled Basophilic Stippling Cancelled Anisocytosis (manual) Cancelled Microcytosis (manual) Cancelled Macrocytosis (manual) Cancelled Spherocytes Cancelled Sickle Cells Cancelled Target Cells Cancelled Tear Drop Cells Cancelled Ovalocytes Cancelled Stomatocytes Cancelled Helmet Cells Cancelled [place] Bodies Cancelled Michelle Cells Cancelled Acanthocytes (Spur) Cancelled Rouleaux Cancelled Schistocytes Cancelled PT 20.5 H INR 1.8 H APTT 26.4 pO2 VBG pH VBG pCO2 VBG HCO3 VBG Total CO2 VBG O2 Sat (Calc) VBG Base Excess VBG Potassium A-a O2 Difference Sodium Chloride Glucose Lactate FiO2 Potassium Carbon Dioxide Anion Gap BUN Creatinine Est GFR ( Amer) Est GFR (Non-Af Amer) Random Glucose Lactic Acid 1.0 Calcium Phosphorus Magnesium Total Bilirubin AST ALT Alkaline Phosphatase Total Protein Albumin Globulin Albumin/Globulin Ratio Venous Blood Potassium 05/26/17 05/26/17 04:45 04:45 WBC RBC Hgb Hct MCV MCH MCHC RDW Plt Count MPV Neut % (Auto) Lymph % (Auto) Reagan % (Auto) Eos % (Auto) Baso % (Auto) Neut # Lymph # Reagan # Eos # Baso # Total Counted Neutrophils % (Manual) Band Neutrophils % Lymphocytes % (Manual) Reactive Lymphs % Monocytes % (Manual) Eosinophils % (Manual) Basophils % (Manual) Metamyelocytes % Myelocytes % Promyelocytes % Blast Cells % Plasma Cell % (Manual) Nucleated RBC % Hypersegmented Polys Smudge Cells Toxic Granulation Dohle Bodies [place] Rods Platelet Estimate Plt Clumps, EDTA Large Platelets Giant Platelets RBC Morphology Polychromasia Hypochromasia (manual) Poikilocytosis (manual Basophilic Stippling Anisocytosis (manual) Microcytosis (manual) Macrocytosis (manual) Spherocytes Sickle Cells Target Cells Tear Drop Cells Ovalocytes Stomatocytes Helmet Cells [place] Bodies [place] Cells Acanthocytes (Spur) Rouleaux Schistocytes PT 20.9 H INR 1.9 H APTT pO2 VBG pH VBG pCO2 VBG HCO3 VBG Total CO2 VBG O2 Sat (Calc) VBG Base Excess VBG Potassium A-a O2 Difference Sodium 142 Chloride 104 Glucose Lactate FiO2 Potassium 3.2 L Carbon Dioxide 29 Anion Gap 12 BUN 15 Creatinine 0.4 L Est GFR ( Amer) > 60 Est GFR (Non-Af Amer) > 60 Random Glucose 110 H Lactic Acid Calcium 8.6 Phosphorus Magnesium Total Bilirubin AST ALT Alkaline Phosphatase Total Protein Albumin Globulin Albumin/Globulin Ratio Venous Blood Potassium Radiology Interpretations (Free Text): See Above Review of Systems - Review of Systems Systems not reviewed;Unavailable: Dementia All systems: reviewed and no additional remarkable complaints except (as above) Critical Care Progress Note - Nutrition Nutrition: Nutrition Category Date Time Status NPO Diet [DIET] Diets 05/26/17 Breakfast Active
[2017-05-26] MEDS: Enoxaparin 40 mg Syringe SC SCH (12:43)
[2017-05-26] MEDS: Nitroglycerin 0.2 mg/hr Top Patch TD SCH (12:49)
--- NOTE | 2017-05-26 13:08 | CP.PCM.HP ---
History of Present Illness - History of Present Illness History of Present Illness: CC: Abdominal pain. 82 y/o F, resident at [facility], Hx of Dementia, S/P L Hip ORIF 3 weeks [employer] [facility] on rehab, brought to [facility] via EMS to be evaluated for Abdominal pain, severe intensity 10:10, associated to vomiting while at [facility], and high grade fever on DOA with no relief. In ER TMAX 100.7, Tachycardia, HR 120. Worsening symptoms: Abdominal U-S showing: Acute Cholecystitis. Also Pt presenting Sepsis 2nd to Cholecystitis. Aggravating factor: Unable to cooperate with Hx. All information taken from [facility] and medical record 2nd to Pt's clinical condition. CXR shows: Increased bibasilar discoid atelectasis. PNA b/l lung bases. Pt was admitted to ICU unit 2nd to critical medical condition. Present on Admission - Present on Admission Any Indicators Present on Admission: No Review of Systems - Review of Systems Systems not reviewed;Unavailable: Dementia Past Patient History - Infectious Disease Hx of Infectious Diseases: None - Past Medical History & Family History Past Medical History?: Yes Pertinent Family History: Unknown - Past Social History Smoking Status: Never Smoked Alcohol: None Drugs: Denies Home Situation {Lives}: Skilled Nursing - CARDIAC Hx Cardiac Disorders: Yes Hx Congestive Heart Failure: Yes Hx Hypercholesterolemia: Yes Hx Hypertension: Yes - PULMONARY Hx Respiratory Disorders: Yes Hx Asthma: Yes Hx Chronic Obstructive Pulmonary Disease (COPD): Yes - NEUROLOGICAL Hx Neurological Disorder: Yes Hx Dementia: Yes Hx Seizures: Yes - HEENT Hx HEENT Problems: No - RENAL Hx Chronic Kidney Disease: No - ENDOCRINE/METABOLIC Hx Endocrine Disorders: No - HEMATOLOGICAL/ONCOLOGICAL Hx Blood Disorders: Yes Hx Anemia: Yes Hx Blood Transfusions: Yes Hx Human Immunodeficiency Virus (HIV): No - INTEGUMENTARY Hx Dermatological Problems: No - MUSCULOSKELETAL/RHEUMATOLOGICAL Hx Musculoskeletal Disorders: Yes Hx Arthritis: Yes (poly) Hx Back Pain: Yes Hx Falls: Yes Hx Fractures: Yes (L wrist , comp Fx T Spine) Hx Osteoporosis: Yes - GASTROINTESTINAL Hx Gastrointestinal Disorders: Yes Hx Constipation: Yes - GENITOURINARY/GYNECOLOGICAL Hx Genitourinary Disorders: Yes Hx Incontinence: Yes - PSYCHIATRIC Hx Psychophysiologic Disorder: Yes Hx Anxiety: Yes Hx Depression: Yes - SURGICAL HISTORY Hx Surgeries: Yes Hx Coronary Artery Bypass Graft: Yes Hx Open Reduction Internal Fixation: Yes (L hip) - ANESTHESIA Hx Anesthesia: Yes Hx Anesthesia Reactions: No Hx Malignant Hyperthermia: No Meds Allergies/Adverse Reactions: Allergies Allergy/AdvReac Type Severity Reaction Status Date / Time Penicillins Allergy RASH Verified 05/25/17 12:15 Physical Exam - Constitutional Appears: Chronically Ill - Head Exam Head Exam: NORMAL INSPECTION - Eye Exam Eye Exam: PERRL - ENT Exam Additional comments: Hard of hearing L ear - Neck Exam Neck exam: Positive for: Normal Inspection - Respiratory Exam Respiratory Exam: Decreased Breath Sounds (at bases) - Cardiovascular Exam Cardiovascular Exam: Tachycardia - GI/Abdominal Exam GI & Abdominal Exam: Guarding (mild), Normal Bowel Sounds, Soft, Tenderness (RUQ ). absent: Rebound - Extremities Exam Additional comments: L hip and lateral thigh with vickie, no drainage. - Back Exam Back exam: tenderness - Neurological Exam Additional comments: O x1, confused, disoriented, generalized weakness, no focal motor sensory deficit. - Psychiatric Exam Psychiatric exam: Anxious - Skin Skin Exam: Normal Color, Warm Results - Vital Signs Recent Vital Signs: Last Vital Signs Temp 100.1 F H 05/26/17 12:00 Pulse 107 H 05/26/17 12:49 Resp 25 H 05/26/17 12:00 BP 123/58 L 05/26/17 12:49 Pulse Ox 97 05/26/17 12:00 reviewed Roderick - Labs Result Diagrams: 05/27/17 04:40 05/27/17 04:40 Labs: Laboratory Results - last 24 hr 05/25/17 05/25/17 05/25/17 12:53 13:10 13:10 WBC 26.1 H D RBC 4.25 Hgb 11.8 L Hct 37.4 MCV 87.9 MCH 27.8 MCHC 31.7 L RDW 15.8 H Plt Count 232 MPV 8.9 Neut % (Auto) 88.9 H Lymph % (Auto) 2.5 L Beaver % (Auto) 8.1 Eos % (Auto) 0.0 Baso % (Auto) 0.5 Neut # 23.2 H Lymph # 0.7 L Beaver # 2.1 H Eos # 0.0 Baso # 0.1 Total Counted Neutrophils % (Manual) 83 H Band Neutrophils % 5 H Lymphocytes % (Manual) 4 L Reactive Lymphs % Monocytes % (Manual) 8 Eosinophils % (Manual) Basophils % (Manual) Metamyelocytes % Myelocytes % Promyelocytes % Blast Cells % Plasma Cell % (Manual) Nucleated RBC % Hypersegmented Polys Present Smudge Cells Toxic Granulation Dohle Bodies Martinez Rods Platelet Estimate Normal Plt Clumps, EDTA Large Platelets Present Giant Platelets RBC Morphology Polychromasia Hypochromasia (manual) Poikilocytosis (manual Slight Basophilic Stippling Anisocytosis (manual) Slight Microcytosis (manual) Macrocytosis (manual) Spherocytes Sickle Cells Target Cells Tear Drop Cells Ovalocytes Stomatocytes Helmet Cells Pi[place] Bodies [place]strander Cells Acanthocytes (Spur) Slight Rouleaux Schistocytes PT INR APTT pO2 46 VBG pH 7.52 H VBG pCO2 40 VBG HCO3 31.6 VBG Total CO2 33.9 H VBG O2 Sat (Calc) 88.1 H VBG Base Excess 9.0 H VBG Potassium 4.5 A-a O2 Difference 54.0 Sodium 134.0 139 Chloride 99.0 97 L Glucose 180 H Lactate 2.7 H FiO2 21.0 Potassium 4.1 Carbon Dioxide 28 Anion Gap 18 BUN 19 H Creatinine 0.5 L Est GFR ( Amer) > 60 Est GFR (Non-Af Amer) > 60 Random Glucose 160 H Lactic Acid Calcium 9.5 Phosphorus 2.9 Magnesium 2.4 H Total Bilirubin 2.5 H AST 52 H D ALT 26 Alkaline Phosphatase 145 H D Total Protein 7.8 Albumin 3.8 Globulin 4.0 H Albumin/Globulin Ratio 1.0 Venous Blood Potassium 4.5 05/25/17 05/26/17 05/26/17 13:10 01:30 04:45 WBC 18.6 H RBC 3.77 L Hgb 10.6 L Hct 33.2 L MCV 88.1 MCH 28.0 MCHC 31.8 L RDW 16.4 H Plt Count 185 MPV 9.2 Neut % (Auto) 90.2 H Lymph % (Auto) 2.4 L Beaver % (Auto) 7.2 Eos % (Auto) 0.1 Baso % (Auto) 0.1 Neut # 16.8 H Lymph # 0.5 L Beaver # 1.3 H Eos # 0.0 Baso # 0.0 Total Counted Cancelled Neutrophils % (Manual) Cancelled Band Neutrophils % Cancelled Lymphocytes % (Manual) Cancelled Reactive Lymphs % Cancelled Monocytes % (Manual) Cancelled Eosinophils % (Manual) Cancelled Basophils % (Manual) Cancelled Metamyelocytes % Cancelled Myelocytes % Cancelled Promyelocytes % Cancelled Blast Cells % Cancelled Plasma Cell % (Manual) Cancelled Nucleated RBC % Cancelled Hypersegmented Polys Cancelled Smudge Cells Cancelled Toxic Granulation Cancelled Dohle Bodies Cancelled Martinez Rods Cancelled Platelet Estimate Cancelled Plt Clumps, EDTA Cancelled Large Platelets Cancelled Giant Platelets Cancelled RBC Morphology Cancelled Polychromasia Cancelled Hypochromasia (manual) Cancelled Poikilocytosis (manual Cancelled Basophilic Stippling Cancelled Anisocytosis (manual) Cancelled Microcytosis (manual) Cancelled Macrocytosis (manual) Cancelled Spherocytes Cancelled Sickle Cells Cancelled Target Cells Cancelled Tear Drop Cells Cancelled Ovalocytes Cancelled Stomatocytes Cancelled Helmet Cells Cancelled Piña-[place] Bodies Cancelled Michelle Cells Cancelled Acanthocytes (Spur) Cancelled Rouleaux Cancelled Schistocytes Cancelled PT 20.5 H INR 1.8 H APTT 26.4 pO2 VBG pH VBG pCO2 VBG HCO3 VBG Total CO2 VBG O2 Sat (Calc) VBG Base Excess VBG Potassium A-a O2 Difference Sodium Chloride Glucose Lactate FiO2 Potassium Carbon Dioxide Anion Gap BUN Creatinine Est GFR ( Amer) Est GFR (Non-Af Amer) Random Glucose Lactic Acid 1.0 Calcium Phosphorus Magnesium Total Bilirubin AST ALT Alkaline Phosphatase Total Protein Albumin Globulin Albumin/Globulin Ratio Venous Blood Potassium 05/26/17 05/26/17 04:45 04:45 WBC RBC Hgb Hct MCV MCH MCHC RDW Plt Count MPV Neut % (Auto) Lymph % (Auto) Beaver % (Auto) Eos % (Auto) Baso % (Auto) Neut # Lymph # Beaver # Eos # Baso # Total Counted Neutrophils % (Manual) Band Neutrophils % Lymphocytes % (Manual) Reactive Lymphs % Monocytes % (Manual) Eosinophils % (Manual) Basophils % (Manual) Metamyelocytes % Myelocytes % Promyelocytes % Blast Cells % Plasma Cell % (Manual) Nucleated RBC % Hypersegmented Polys Smudge Cells Toxic Granulation Dohle Bodies Martinez Rods Platelet Estimate Plt Clumps, EDTA Large Platelets Giant Platelets RBC Morphology Polychromasia Hypochromasia (manual) Poikilocytosis (manual Basophilic Stippling Anisocytosis (manual) Microcytosis (manual) Macrocytosis (manual) Spherocytes Sickle Cells Target Cells Tear Drop Cells Ovalocytes Stomatocytes Helmet Cells [place] Bodies Michelle Cells Acanthocytes (Spur) Rouleaux Schistocytes PT 20.9 H INR 1.9 H APTT pO2 VBG pH VBG pCO2 VBG HCO3 VBG Total CO2 VBG O2 Sat (Calc) VBG Base Excess VBG Potassium A-a O2 Difference Sodium 142 Chloride 104 Glucose Lactate FiO2 Potassium 3.2 L Carbon Dioxide 29 Anion Gap 12 BUN 15 Creatinine 0.4 L Est GFR ( Amer) > 60 Est GFR (Non-Af Amer) > 60 Random Glucose 110 H Lactic Acid Calcium 8.6 Phosphorus Magnesium Total Bilirubin AST ALT Alkaline Phosphatase Total Protein Albumin Globulin Albumin/Globulin Ratio Venous Blood Potassium reviewed J.P. - Imaging and Cardiology Chest x-ray Status: Report reviewed by me (Roderick) US - abdomen Status: Report reviewed by me (Roderick) Assessment & Plan (1) Acute cholecystitis Status: Acute Priority: High (2) Sepsis Status: Acute Priority: High Comment: 2nd to Cholecystitis. (3) Abdominal pain Status: Acute Priority: High (4) Anemia Status: Acute Priority: High (5) Dementia Status: Acute (6) HTN (hypertension) Status: Chronic (7) S/P ORIF (open reduction internal fixation) fracture Status: Chronic Priority: High Comment: R Hip (8) Chronic back pain Status: Chronic Priority: High (9) Generalized weakness Status: Chronic Priority: High (10) Seizure Status: Chronic Priority: Medium (11) Anxiety Status: Chronic Priority: Medium (12) Osteoarthrosis involving multiple sites Status: Chronic Priority: Medium - Assessment and Plan (Free Text) Plan: F/U EKG, Chest Ct, Blood C-S, MRSA Screening, continue with Azactam, Clinda, Cipro, Dilaudid and rest of Tx. For Cholecystostomy tube placement today ICU time: 60 minutes. - Date & Time Date: 05/13/17 Time: 12:00
[2017-05-26] MEDS ORDERED: Etomidate 20 mg/10ml Inj IV ONE (13:26)
[2017-05-26] MEDS ORDERED: ePHEDrine 50 mg/ml Inj ONE (13:26)
[2017-05-26] MEDS ORDERED: Iodixanol 320 MG/ML 100 ML BOTTLE IV ONE (14:00)
[2017-05-26] MEDS ORDERED: Midazolam 2 MG/2 ML VIAL ONE (14:05)
[2017-05-26] MEDS ORDERED: Lidocaine 1% Inj (20ml) ONE (14:13)
--- NOTE | 2017-05-26 15:08 | PCM.SURG1 ---
Surgeon's Initial Post Op Note - Surgeon's Notes Surgeon: William Hartley MD Irrigation Specialist: None Type of Anesthesia: MAC Pre-Operative Diagnosis: Acute cholecystitis Operative Findings: distended gallbladder with sludge, wall thickening/edema Post-Operative Diagnosis: same Operation Performed: Percutaneous cholecystostomy tube placement Specimen/Specimens Removed: 80 cc bilious fluid removed. sample submitted for C& S Estimated Blood Loss: EBL {In ML}: 5 Date of Surgery/Procedure: 05/26/17 Time of Surgery/Procedure: 15:50
--- NOTE | 2017-05-26 16:24 | CT ---
PROCEDURE: PERCUTANEOUS CHOLECYSTOSTOMY TUBE INSERTION CLINICAL HISTORY: 82-year-old female with acute cholecystitis is referred to Interventional Radiology for percutaneous cholecystostomy tube insertion. COMPARISON: CT scan of the abdomen pelvis and right upper quadrant ultrasound dated 05/25/2017. PROCEDURE: 1. Focused ultrasound of the gallbladder. 2. Percutaneous cholecystostomy tube insertion. PRE-PROCEDURE FINDINGS: 1. Distended gallbladder with sludge/stones and wall thickening/edema. POST-PROCEDURE FINDINGS: 1. No evidence of post-procedural complication. INTERVENTIONAL RADIOLOGIST: William Hartley M.D. (the attending was present for the entire procedure) ANESTHESIA: Provided by the attending anesthesiologist. Sedation was supervised by the anesthesiology attending with the presence of independent radiology nursing monitoring. Physiological data monitoring was performed throughout the entire procedure. The patient's blood pressure, EKG and pulse oximetry were recorded. The patient tolerated the procedure and sedation without untoward reactions. The intra-procedural sedation time was 15 minutes. MEDICATIONS: Lidocaine 1% for local subcutaneous analgesia. CONTRAST: 10 mL contrast. COMPLICATIONS: None. RADIATION DOSE: Fluoroscopy Time: 49.8 seconds Cumulative Dose: 12.60 mGy PROCEDURE DESCRIPTION AND FINDINGS: The risks, benefits, alternatives and possible complications of the procedure were fully discussed; all questions were answered and informed consent was obtained. The patient was brought into the interventional suite and a pre-procedure 'time-out' was performed. The patient was placed on the fluoroscopy table in the supine position. The right upper quadrant was prepped and draped in the usual sterile fashion. Maximum sterile barrier precautions were maintained throughout the entire procedure. Preliminary focused ultrasound images of the gallbladde again demonstrate sludge/stones with wall thickening/edema. Following subcutaneous infiltration of lidocaine 1% for local analgesia, under ultrasound-guidance, an 18-gauge trocar needle was advanced into the gallbladder. The ultrasound images were permanently recorded and submitted to the PACS. An 0.035 guidewire was looped within the collection and optimal position was confirmed with fluoroscopic imaging. After serial dilatation, an 8 Nigerien all purpose drainage pigtail catheter was advanced over the guidewire into the collection. Approximately 120 mL of bilious fluid was aspirated and a sample was sent to microbiology for culture and sensitivity. Post-procedure imaging demonstrated decompression of the fluid collection post pigtail catheter placement without evidence of complications. The catheter was secured to the skin utilizing a sterile adhesive bandage and left to external gravity bag drainage. The patient tolerated the procedure well without immediate post-procedure complications and was transferred back to the floor in stable condition. IMPRESSION: Successful insertion of 8 Nigerien all purpose drainage pigtail cholecystostomy catheter within the gallbladder.
[2017-05-26] MEDS: Ciprofloxacin 400mg/200ml D5W 400 MG/200 ML BAG IVPB SCH (18:25)
--- NOTE | 2017-05-26 18:55 | CP.PCM.PN ---
Subjective - Date & Time of Evaluation Date of Evaluation: 05/26/17 Time of Evaluation: 18:49 - Subjective Subjective: I D NOTE PATIENT IS JUST OUT OF SURGERY HAD DISCUSSED C ER LAST NITE, CONTINUE CLINDA/AZACTAM/CIPRO FULL CONSULT DIVTATED Objective - Vital Signs/Intake and Output Vital Signs (last 24 hours): Temp Pulse Resp BP Pulse Ox 98.9 F 93 H 19 105/57 L 96 05/26/17 16:10 05/26/17 18:00 05/26/17 18:00 05/26/17 18:00 05/26/17 18:00 Intake and Output: 05/26/17 05/26/17 06:59 18:59 Intake Total 1200 1650 Output Total 350 205 Balance 850 1445 - Medications Medications: Current Medications Acetaminophen (Tylenol 650 Mg Supp) 650 mg OH Q6 PRN PRN Reason: Fever >100.4 F Enoxaparin Sodium (Lovenox) 40 mg SC DAILY BELLE PRN Reason: Protocol Last Admin: 05/26/17 12:43 Dose: Not Given Fentanyl (Duragesic) 1 patch TD Q3D BELLE PRN Reason: Protocol Last Admin: 05/26/17 18:24 Dose: 1 patch Hydromorphone HCl (Dilaudid) 0.5 mg IVP Q6H PRN PRN Reason: Other Stop: 05/28/17 00:47 Last Admin: 05/26/17 15:30 Dose: 0.5 mg Sodium Chloride (Sodium Chloride 0.9%) 1,000 mls @ 100 mls/hr IV .Q10H [facility] Stop: 05/26/17 22:09 Ciprofloxacin (Cipro 400mg/200ml Dsw) 400 mg in 200 mls @ 200 mls/hr IVPB Q12H [facility]LE PRN Reason: Protocol Last Admin: 05/26/17 18:25 Dose: 200 mls/hr Aztreonam 1 gm/ Sodium (Chloride) 100 mls @ 100 mls/hr IVPB Q12H [facility] PRN Reason: Protocol Clindamycin Phosphate (Cleocin In Normal Saline) 600 mg in 50 mls @ 50 mls/hr IVPB Q8@0500,1300,2100 BELLE PRN Reason: Protocol Nitroglycerin (Nitro-Dur 0.2 Mg/Hr Patch) 1 patch TD DAILY [facility] Last Admin: 05/26/17 12:49 Dose: 1 patch Ondansetron HCl (Zofran Inj) 4 mg IVP Q6 PRN PRN Reason: Nausea/Vomiting Pantoprazole Sodium (Protonix Inj) 40 mg IVP DAILY [facility] Last Admin: 05/26/17 12:50 Dose: 40 mg - Labs Labs: 05/26/17 04:45 05/26/17 04:45 PT 20.9 Seconds (9.8-13.1) H 05/26/17 04:45 INR 1.9 (0.9-1.2) H 05/26/17 04:45 APTT 26.4 Seconds (25.6-37.1) 05/25/17 13:10
[2017-05-26] MEDS: Clindamycin 600mg/50ml NS 600 MG/50 ML BAG IVPB SCH (20:26)
[2017-05-27] MEDS: Clindamycin 600mg/50ml NS 600 MG/50 ML BAG IVPB SCH ×3 (04:29→21:38)
[2017-05-27 05:25] LABS: HEMOGLOBIN 8.9 g/dL (12.0-16.0); MEAN CELL VOLUME 88.3 fl (81.0-99.0); MEAN CORPUSCULAR HGB CONC 31.8 g/dL (33.0-37.0); RBC 3.16 Mil/uL (3.80-5.20); RED CELL DISTRIBUTION WIDTH 16.1 % (11.5-14.5); WHITE BLOOD COUNT 10.3 K/uL (4.8-10.8)
[2017-05-27 05:45] LABS: BLOOD UREA NITROGEN 12 mg/dl (7-17); GFR AFRICAN-AMERICAN > 60; GFR NON-AFRICAN AMERICAN > 60
[2017-05-27 05:46] LABS: ALB/GLOB RATIO 0.9 (1.0-2.1); ALBUMIN 2.8 g/dL (3.5-5.0); ALT/SGPT 28 U/L (9-52); AST/SGOT 19 U/L (14-36); CALCIUM 8.4 mg/dL (8.4-10.2)
[2017-05-27] MEDS: Ciprofloxacin 400mg/200ml D5W 400 MG/200 ML BAG IVPB SCH ×2 (06:05→17:28)
--- NOTE | 2017-05-27 07:50 | CP.PCM.PN ---
<Yayo Carreon - Last Filed: 05/27/17 08:26> Subjective - Date & Time of Evaluation Date of Evaluation: 05/27/17 Time of Evaluation: 08:11 - Subjective Subjective: General Surgery: Dr Zarate Pt S&E. EDY. Pt had cholecystostomy tube placed yesterday s/p FFP transfusion. Pt condition has clinically improved. Slightly more verbal this morning. Tachycardia resolved. Afebrile. Urine still dark but output improving. Objective - Vital Signs/Intake and Output Vital Signs (last 24 hours): Temp Pulse Resp BP Pulse Ox 98.9 F 88 21 107/52 L 99 05/27/17 04:00 05/27/17 06:00 05/27/17 06:00 05/27/17 06:00 05/27/17 06:00 Intake and Output: 05/27/17 05/27/17 06:59 18:59 Intake Total 1550 Output Total 200 Balance 1350 - Medications Medications: Current Medications Acetaminophen (Tylenol 650 Mg Supp) 650 mg MS Q6 PRN PRN Reason: Fever >100.4 F Enoxaparin Sodium (Lovenox) 40 mg SC DAILY BELLE PRN Reason: Protocol Last Admin: 05/26/17 12:43 Dose: Not Given Fentanyl (Duragesic) 1 patch TD Q3D BELLE PRN Reason: Protocol Last Admin: 05/26/17 18:24 Dose: 1 patch Hydromorphone HCl (Dilaudid) 0.5 mg IVP Q6H PRN PRN Reason: Other Stop: 05/28/17 00:47 Last Admin: 05/26/17 15:30 Dose: 0.5 mg Ciprofloxacin (Cipro 400mg/200ml Dsw) 400 mg in 200 mls @ 200 mls/hr IVPB Q12H [facility]LE PRN Reason: Protocol Last Admin: 05/27/17 06:05 Dose: 200 mls/hr Aztreonam 1 gm/ Sodium (Chloride) 100 mls @ 100 mls/hr IVPB Q12H [facility] PRN Reason: Protocol Last Admin: 05/26/17 21:46 Dose: 100 mls/hr Clindamycin Phosphate (Cleocin In Normal Saline) 600 mg in 50 mls @ 50 mls/hr IVPB Q8@0500,1300,2100 BELLE PRN Reason: Protocol Last Admin: 05/27/17 04:29 Dose: 50 mls/hr Potassium Chloride 10 meq/ (Sodium Chloride) 55 mls @ 55 mls/hr IV Q1 [facility] Stop: 05/27/17 11:59 Nitroglycerin (Nitro-Dur 0.2 Mg/Hr Patch) 1 patch TD DAILY [facility] Last Admin: 05/26/17 12:49 Dose: 1 patch Ondansetron HCl (Zofran Inj) 4 mg IVP Q6 PRN PRN Reason: Nausea/Vomiting Pantoprazole Sodium (Protonix Inj) 40 mg IVP DAILY [facility] Last Admin: 05/26/17 12:50 Dose: 40 mg - Labs Labs: 05/27/17 04:40 05/27/17 04:40 PT 20.9 Seconds (9.8-13.1) H 05/26/17 04:45 INR 1.9 (0.9-1.2) H 05/26/17 04:45 APTT 26.4 Seconds (25.6-37.1) 05/25/17 13:10 - Constitutional Appears: No Acute Distress - Respiratory Exam Respiratory Exam: absent: Accessory Muscle Use, Respiratory Distress - Cardiovascular Exam Cardiovascular Exam: absent: Tachycardia - GI/Abdominal Exam GI & Abdominal Exam: Soft, Tenderness (RUQ and site of vy tube insertion). absent: Distended, Firm - Neurological Exam Neurological Exam: Awake. absent: Alert, Oriented x3 Assessment and Plan - Assessment and Plan (Free Text) Assessment: 82F with cholecystitis s/p cholecystostomy tube Plan: pt cholecystitis addressed via cholecystostomy tube monitor drainage, will likely remain for at least 4-6 weeks cont IV abx no further surgical intervention planned will d/w Dr Elliot Carreon, PGY3 <Josh Zarate - Last Filed: 05/27/17 12:21> Subjective - Date & Time of Evaluation Time of Evaluation: 11:45 - Subjective Subjective: Patient was seen and examined at the bedside. Agree with resident's note above. Objective - Vital Signs/Intake and Output Vital Signs (last 24 hours): Temp Pulse Resp BP Pulse Ox 98.8 F 100 H 24 116/57 L 95 05/27/17 08:00 05/27/17 10:00 05/27/17 10:00 05/27/17 10:00 05/27/17 11:17 Intake and Output: 05/27/17 05/27/17 06:59 18:59 Intake Total 1550 800 Output Total 200 Balance 1350 800 - Medications Medications: Current Medications Acetaminophen (Tylenol 650 Mg Supp) 650 mg MS Q6 PRN PRN Reason: Fever >100.4 F Enoxaparin Sodium (Lovenox) 40 mg SC DAILY BELLE PRN Reason: Protocol Last Admin: 05/27/17 09:51 Dose: 40 mg Fentanyl (Duragesic) 1 patch TD Q3D [facility] PRN Reason: Protocol Last Admin: 05/26/17 18:24 Dose: 1 patch Hydromorphone HCl (Dilaudid) 0.5 mg IVP Q6H PRN PRN Reason: Other Stop: 05/28/17 00:47 Last Admin: 05/26/17 15:30 Dose: 0.5 mg Ciprofloxacin (Cipro 400mg/200ml Dsw) 400 mg in 200 mls @ 200 mls/hr IVPB Q12H [facility] PRN Reason: Protocol Last Admin: 05/27/17 06:05 Dose: 200 mls/hr Aztreonam 1 gm/ Sodium (Chloride) 100 mls @ 100 mls/hr IVPB Q12H [facility] PRN Reason: Protocol Last Admin: 05/27/17 09:50 Dose: 100 mls/hr Clindamycin Phosphate (Cleocin In Normal Saline) 600 mg in 50 mls @ 50 mls/hr IVPB Q8@0500,1300,2100 [facility] PRN Reason: Protocol Last Admin: 05/27/17 04:29 Dose: 50 mls/hr Nitroglycerin (Nitro-Dur 0.2 Mg/Hr Patch) 1 patch TD DAILY [facility] Last Admin: 05/27/17 09:51 Dose: 1 patch Ondansetron HCl (Zofran Inj) 4 mg IVP Q6 PRN PRN Reason: Nausea/Vomiting Pantoprazole Sodium (Protonix Inj) 40 mg IVP DAILY [facility] Last Admin: 05/27/17 09:49 Dose: 40 mg - Labs Labs: 05/27/17 04:40 05/27/17 04:40 PT 20.9 Seconds (9.8-13.1) H 05/26/17 04:45 INR 1.9 (0.9-1.2) H 05/26/17 04:45 APTT 26.4 Seconds (25.6-37.1) 05/25/17 13:10 Assessment and Plan - Assessment and Plan (Free Text) Plan: - Continue antibiotics - Advance diet as tolerated - Repeat labs in am - Will follow
[2017-05-27] MEDS ORDERED: Sodium Chloride 0.9% 500 ML IV ONE (08:03)
[2017-05-27] MEDS: Aztreonam 1 GM in Sodium Chloride 0.9% 100 ML IVPB SCH ×2 (09:50→22:40)
[2017-05-27] MEDS: Nitroglycerin 0.2 mg/hr Top Patch TD SCH (09:51)
[2017-05-27] MEDS: Enoxaparin 40 mg Syringe SC SCH (09:51)
--- NOTE | 2017-05-27 17:14 | CP.PCM.PN ---
Subjective - Date & Time of Evaluation Date of Evaluation: 05/27/17 - Subjective Subjective: F/U Acute Cholecystitis. S/P Cholecystostomy confused , no AD Objective - Vital Signs/Intake and Output Vital Signs (last 24 hours): Temp Pulse Resp BP Pulse Ox 97.5 F L 100 H 14 114/49 L 96 05/27/17 15:52 05/27/17 15:52 05/27/17 15:52 05/27/17 15:52 05/27/17 15:52 Intake and Output: 05/27/17 05/27/17 06:59 18:59 Intake Total 1550 1700 Output Total 200 130 Balance 1350 1570 - Medications Medications: Current Medications Acetaminophen (Tylenol 650 Mg Supp) 650 mg IN Q6 PRN PRN Reason: Fever >100.4 F Enoxaparin Sodium (Lovenox) 40 mg SC DAILY [facility] PRN Reason: Protocol Last Admin: 05/27/17 09:51 Dose: 40 mg Fentanyl (Duragesic) 1 patch TD Q3D [facility] PRN Reason: Protocol Last Admin: 05/26/17 18:24 Dose: 1 patch Hydromorphone HCl (Dilaudid) 0.5 mg IVP Q6H PRN PRN Reason: Other Stop: 05/28/17 00:47 Last Admin: 05/26/17 15:30 Dose: 0.5 mg Ciprofloxacin (Cipro 400mg/200ml Dsw) 400 mg in 200 mls @ 200 mls/hr IVPB Q12H [facility] PRN Reason: Protocol Last Admin: 05/27/17 06:05 Dose: 200 mls/hr Aztreonam 1 gm/ Sodium (Chloride) 100 mls @ 100 mls/hr IVPB Q12H [facility] PRN Reason: Protocol Last Admin: 05/27/17 09:50 Dose: 100 mls/hr Clindamycin Phosphate (Cleocin In Normal Saline) 600 mg in 50 mls @ 50 mls/hr IVPB Q8@0500,1300,2100 [facility] PRN Reason: Protocol Last Admin: 05/27/17 14:34 Dose: 50 mls/hr Sodium Chloride (Sodium Chloride 0.9%) 1,000 mls @ 100 mls/hr IV .Q10H [facility] Stop: 05/28/17 16:02 Nitroglycerin (Nitro-Dur 0.2 Mg/Hr Patch) 1 patch TD DAILY [facility] Last Admin: 05/27/17 09:51 Dose: 1 patch Ondansetron HCl (Zofran Inj) 4 mg IVP Q6 PRN PRN Reason: Nausea/Vomiting Pantoprazole Sodium (Protonix Inj) 40 mg IVP DAILY [facility] Last Admin: 05/27/17 09:49 Dose: 40 mg - Labs Labs: 05/27/17 04:40 05/27/17 04:40 PT 20.9 Seconds (9.8-13.1) H 05/26/17 04:45 INR 1.9 (0.9-1.2) H 05/26/17 04:45 APTT 26.4 Seconds (25.6-37.1) 05/25/17 13:10 - Constitutional Appears: Chronically Ill - Head Exam Head Exam: NORMAL INSPECTION - Eye Exam Eye Exam: PERRL - ENT Exam ENT Exam: Normal Exam Additional comments: Hard of hearing L ear - Neck Exam Neck Exam: Normal Inspection - Respiratory Exam Respiratory Exam: Decreased Breath Sounds (at bases) - Cardiovascular Exam Cardiovascular Exam: REGULAR RHYTHM - GI/Abdominal Exam GI & Abdominal Exam: Soft, Normal Bowel Sounds Additional comments: R cholecystostomy tube in place. - Extremities Exam Additional comments: L hip and lateral thigh with vickie. - Back Exam Back Exam: tenderness (mild) - Neurological Exam Additional comments: Ox1, confused, disoriented, generalized weakness, no focal motor sensory deficit. - Skin Skin Exam: Normal Color, Warm Assessment and Plan (1) Cholecystostomy care Status: Acute (2) Acute cholecystitis Assessment & Plan: s/p Status: Acute (3) Dementia Status: Acute (4) Seizure Status: Acute (5) HTN (hypertension) Status: Acute (6) S/P ORIF (open reduction internal fixation) fracture Status: Chronic - Assessment and Plan (Free Text) Plan: continue Aztreonam , Clinda , Lamictal , NTG ,
[2017-05-27] MEDS: Sodium Chloride 0.9% 1,000 ML IV SCH (17:28)
--- NOTE | 2017-05-27 18:40 | CARD ---
APPROVED REPORT EKG Measurement Heart [id number] [id number] <Conclusion> Sinus tachycardia T wave abnormality, consider inferior ischemia Abnormal ECG
[2017-05-28] MEDS: Clindamycin 600mg/50ml NS 600 MG/50 ML BAG IVPB SCH ×3 (05:08→21:03)
--- NOTE | 2017-05-28 06:09 | CP.PCM.PN ---
Subjective - Date & Time of Evaluation Date of Evaluation: 05/28/17 Time of Evaluation: 06:07 - Subjective Subjective: General Surgery: Dr Zarate Pt S&E. Moved out of ICU to med/surg floor. Conditioning significantly improved. PT is more responsive and verbal now, but remains disoriented as is her baseline. Denies pain. Tolerating pureed diet. Akanksha-tube continues to drain. VSS, afebrile. labs pending Objective - Vital Signs/Intake and Output Vital Signs (last 24 hours): Temp Pulse Resp BP Pulse Ox 98.6 F 84 20 120/81 97 05/28/17 00:26 05/28/17 00:26 05/28/17 00:26 05/28/17 00:26 05/28/17 00:26 Intake and Output: 05/27/17 05/28/17 18:59 06:59 Intake Total 1700 Output Total 130 Balance 1570 - Medications Medications: Current Medications Acetaminophen (Tylenol 650 Mg Supp) 650 mg [place] Q6 PRN PRN Reason: Fever >100.4 F Enoxaparin Sodium (Lovenox) 40 mg SC DAILY [facility] PRN Reason: Protocol Last Admin: 05/27/17 09:51 Dose: 40 mg Fentanyl (Duragesic) 1 patch TD Q3D [facility] PRN Reason: Protocol Last Admin: 05/26/17 18:24 Dose: 1 patch Ciprofloxacin (Cipro 400mg/200ml Dsw) 400 mg in 200 mls @ 200 mls/hr IVPB Q12H [facility] PRN Reason: Protocol Last Admin: 05/27/17 17:28 Dose: 200 mls/hr Aztreonam 1 gm/ Sodium (Chloride) 100 mls @ 100 mls/hr IVPB Q12H [facility] PRN Reason: Protocol Last Admin: 05/27/17 22:40 Dose: 100 mls/hr Clindamycin Phosphate (Cleocin In Normal Saline) 600 mg in 50 mls @ 50 mls/hr IVPB Q8@0500,1300,2100 [facility] PRN Reason: Protocol Last Admin: 05/28/17 05:08 Dose: 50 mls/hr Sodium Chloride (Sodium Chloride 0.9%) 1,000 mls @ 100 mls/hr IV .Q10H [facility] Stop: 05/28/17 16:02 Last Admin: 05/27/17 17:28 Dose: 100 mls/hr Lamotrigine (Lamictal) 25 mg PO TID [facility] Nitroglycerin (Nitro-Dur 0.2 Mg/Hr Patch) 1 patch TD DAILY [facility] Last Admin: 05/27/17 09:51 Dose: 1 patch Ondansetron HCl (Zofran Inj) 4 mg IVP Q6 PRN PRN Reason: Nausea/Vomiting Pantoprazole Sodium (Protonix Inj) 40 mg IVP DAILY [facility] Last Admin: 05/27/17 09:49 Dose: 40 mg - Labs Labs: 05/27/17 04:40 05/27/17 04:40 PT 20.9 Seconds (9.8-13.1) H 05/26/17 04:45 INR 1.9 (0.9-1.2) H 05/26/17 04:45 APTT 26.4 Seconds (25.6-37.1) 05/25/17 13:10 - Constitutional Appears: Non-toxic, No Acute Distress - ENT Exam ENT Exam: Mucous Membranes Dry - Respiratory Exam Respiratory Exam: absent: Accessory Muscle Use, Respiratory Distress - Cardiovascular Exam Cardiovascular Exam: REGULAR RHYTHM. absent: Tachycardia - GI/Abdominal Exam GI & Abdominal Exam: Soft, Tenderness (at site of tube insertion). absent: Distended, Firm, Guarding, Rigid - Neurological Exam Neurological Exam: Alert, Awake, Oriented x3 - Psychiatric Exam Psychiatric exam: Normal Affect, Normal Mood - Skin Skin Exam: Normal Color, Warm Assessment and Plan - Assessment and Plan (Free Text) Assessment: 82F with cholecystitis s/p cholecystostomy tube insertion with IR Plan: cont abx as per ID no plans for surgical intervention at this time pt may require cholecystectomy vs repeat imaging to evaluate for cystic duct obstruction in 4-6 weeks please reconsult if necessary, pt will be evaluated by attending later today Lauri, PGY3
[2017-05-28] MEDS: Ciprofloxacin 400mg/200ml D5W 400 MG/200 ML BAG IVPB SCH (06:20)
[2017-05-28] MEDS: Aztreonam 1 GM in Sodium Chloride 0.9% 100 ML IVPB SCH ×2 (09:22→22:20)
[2017-05-28] MEDS: Enoxaparin 40 mg Syringe SC SCH (09:23)
[2017-05-28] MEDS: Nitroglycerin 0.2 mg/hr Top Patch TD SCH (09:24)
--- NOTE | 2017-05-28 14:11 | CP.PCM.PN ---
Subjective - Date & Time of Evaluation Date of Evaluation: 05/28/17 - Subjective Subjective: F/U Acute Cholecystitis, S/P Cholecystostomy tube placement. confused , N/C Objective - Vital Signs/Intake and Output Vital Signs (last 24 hours): Temp Pulse Resp BP Pulse Ox 97.5 F L 86 20 148/71 97 05/28/17 08:32 05/28/17 09:24 05/28/17 08:32 05/28/17 09:24 05/28/17 08:32 Intake and Output: 05/28/17 05/28/17 06:59 18:59 Intake Total 600 Balance 600 - Medications Medications: Current Medications Acetaminophen (Tylenol 650 Mg Supp) 650 mg [place] Q6 PRN PRN Reason: Fever >100.4 F Enoxaparin Sodium (Lovenox) 40 mg SC DAILY [facility] PRN Reason: Protocol Last Admin: 05/28/17 09:23 Dose: 40 mg Fentanyl (Duragesic) 1 patch TD Q3D [facility] PRN Reason: Protocol Last Admin: 05/26/17 18:24 Dose: 1 patch Ciprofloxacin (Cipro 400mg/200ml Dsw) 400 mg in 200 mls @ 200 mls/hr IVPB Q12H [facility] PRN Reason: Protocol Last Admin: 05/28/17 06:20 Dose: 200 mls/hr Aztreonam 1 gm/ Sodium (Chloride) 100 mls @ 100 mls/hr IVPB Q12H [facility] PRN Reason: Protocol Last Admin: 05/28/17 09:22 Dose: 100 mls/hr Clindamycin Phosphate (Cleocin In Normal Saline) 600 mg in 50 mls @ 50 mls/hr IVPB Q8@0500,1300,2100 [facility] PRN Reason: Protocol Last Admin: 05/28/17 13:27 Dose: 50 mls/hr Sodium Chloride (Sodium Chloride 0.9%) 1,000 mls @ 100 mls/hr IV .Q10H [facility] Stop: 05/28/17 16:02 Last Admin: 05/27/17 17:28 Dose: 100 mls/hr Lamotrigine (Lamictal) 25 mg PO TID [facility] Last Admin: 05/28/17 13:27 Dose: 25 mg Nitroglycerin (Nitro-Dur 0.2 Mg/Hr Patch) 1 patch TD DAILY [facility] Last Admin: 05/28/17 09:24 Dose: 1 patch Ondansetron HCl (Zofran Inj) 4 mg IVP Q6 PRN PRN Reason: Nausea/Vomiting Pantoprazole Sodium (Protonix Inj) 40 mg IVP DAILY [facility] Last Admin: 05/28/17 09:24 Dose: 40 mg - Labs Labs: 05/27/17 04:40 05/27/17 04:40 PT 20.9 Seconds (9.8-13.1) H 05/26/17 04:45 INR 1.9 (0.9-1.2) H 05/26/17 04:45 APTT 26.4 Seconds (25.6-37.1) 05/25/17 13:10 - Constitutional Appears: Chronically Ill - Head Exam Head Exam: NORMAL INSPECTION - Eye Exam Eye Exam: PERRL - ENT Exam ENT Exam: Normal Exam Additional comments: Hard of hearing L ear - Neck Exam Neck Exam: Normal Inspection - Respiratory Exam Respiratory Exam: Decreased Breath Sounds (at bases) - Cardiovascular Exam Cardiovascular Exam: REGULAR RHYTHM - GI/Abdominal Exam GI & Abdominal Exam: Soft, Normal Bowel Sounds Additional comments: R Cholecystostomy tube in place. - Extremities Exam Additional comments: L hip and lateral thigh with vickie in place. - Back Exam Back Exam: tenderness (mid) - Neurological Exam Neurological Exam: Awake Additional comments: O x1, confused,disoriented, generalized weakness, no focal motor sensory deficit. - Psychiatric Exam Psychiatric exam: Anxious - Skin Skin Exam: Normal Color, Warm Assessment and Plan (1) Cholecystostomy care Status: Acute (2) Acute cholecystitis Assessment & Plan: s/p Status: Acute (3) Sepsis Status: Acute (4) Abdominal pain Status: Acute (5) Anemia Status: Acute (6) Dementia Status: Acute (7) HTN (hypertension) Status: Chronic (8) S/P ORIF (open reduction internal fixation) fracture Status: Chronic (9) Chronic back pain Status: Chronic (10) Generalized weakness Status: Chronic (11) Seizure Status: Chronic (12) Anxiety Status: Chronic (13) Osteoarthrosis involving multiple sites Status: Chronic - Assessment and Plan (Free Text) Plan: discussed with ID , Aztreonam , Clinda , continue rest of treatment
[2017-05-28] MEDS: Sodium Chloride 0.9% 1,000 ML IV SCH (15:21)
--- NOTE | 2017-05-28 17:10 | CP.PCM.PN ---
Subjective - Date & Time of Evaluation Date of Evaluation: 05/28/17 Time of Evaluation: 17:10 - Subjective Subjective: I D NOTE IPOVING,VERBAL ALIZE WBC10.3,RENAL FUNCTION IS WNL HAVE D/JONAH CIPRO CONTINUE CLINDAMYCIN/AZACTAM Objective - Vital Signs/Intake and Output Vital Signs (last 24 hours): Temp Pulse Resp BP Pulse Ox 97.5 F L 86 20 148/71 97 05/28/17 08:32 05/28/17 09:24 05/28/17 08:32 05/28/17 09:24 05/28/17 08:32 Intake and Output: 05/28/17 05/28/17 06:59 18:59 Intake Total 600 Balance 600 - Medications Medications: Current Medications Acetaminophen (Tylenol 650 Mg Supp) 650 mg [place] Q6 PRN PRN Reason: Fever >100.4 F Enoxaparin Sodium (Lovenox) 40 mg SC DAILY [facility] PRN Reason: Protocol Last Admin: 05/28/17 09:23 Dose: 40 mg Fentanyl (Duragesic) 1 patch TD Q3D [facility] PRN Reason: Protocol Last Admin: 05/26/17 18:24 Dose: 1 patch Ciprofloxacin (Cipro 400mg/200ml Dsw) 400 mg in 200 mls @ 200 mls/hr IVPB Q12H [facility] PRN Reason: Protocol Last Admin: 05/28/17 06:20 Dose: 200 mls/hr Aztreonam 1 gm/ Sodium (Chloride) 100 mls @ 100 mls/hr IVPB Q12H [facility] PRN Reason: Protocol Last Admin: 05/28/17 09:22 Dose: 100 mls/hr Clindamycin Phosphate (Cleocin In Normal Saline) 600 mg in 50 mls @ 50 mls/hr IVPB Q8@0500,1300,2100 [facility] PRN Reason: Protocol Last Admin: 05/28/17 13:27 Dose: 50 mls/hr Lamotrigine (Lamictal) 25 mg PO TID [facility] Last Admin: 05/28/17 16:43 Dose: 25 mg Nitroglycerin (Nitro-Dur 0.2 Mg/Hr Patch) 1 patch TD DAILY [facility] Last Admin: 05/28/17 09:24 Dose: 1 patch Ondansetron HCl (Zofran Inj) 4 mg IVP Q6 PRN PRN Reason: Nausea/Vomiting Pantoprazole Sodium (Protonix Inj) 40 mg IVP DAILY [facility] Last Admin: 05/28/17 09:24 Dose: 40 mg - Labs Labs: 05/27/17 04:40 05/27/17 04:40 PT 20.9 Seconds (9.8-13.1) H 05/26/17 04:45 INR 1.9 (0.9-1.2) H 05/26/17 04:45 APTT 26.4 Seconds (25.6-37.1) 05/25/17 13:10
[2017-05-29] MEDS: Sodium Chloride 0.9% 1,000 ML IV SCH (01:27)
[2017-05-29] MEDS: Clindamycin 600mg/50ml NS 600 MG/50 ML BAG IVPB SCH ×3 (05:00→20:28)
[2017-05-29] MEDS: Nitroglycerin 0.2 mg/hr Top Patch TD SCH (08:22)
[2017-05-29] MEDS: Enoxaparin 40 mg Syringe SC SCH (08:22)
[2017-05-29] MEDS: Aztreonam 1 GM in Sodium Chloride 0.9% 100 ML IVPB SCH ×2 (10:08→21:47)
--- NOTE | 2017-05-29 21:27 | CP.PCM.PN ---
Subjective - Date & Time of Evaluation Date of Evaluation: 05/29/17 - Subjective Subjective: F/U S/P R Cholecystostomy. confused , n AD , N/C , no abdominal pain Objective - Vital Signs/Intake and Output Vital Signs (last 24 hours): Temp Pulse Resp BP Pulse Ox 98.3 F 99 H 20 155/71 H 95 05/29/17 15:49 05/29/17 15:49 05/29/17 15:49 05/29/17 15:49 05/29/17 15:49 Intake and Output: 05/29/17 05/30/17 18:59 06:59 Intake Total 1290 Output Total 30 Balance 1260 - Medications Medications: Current Medications Acetaminophen (Tylenol 650 Mg Supp) 650 mg [place] Q6 PRN PRN Reason: Fever >100.4 F Aztreonam 1 gm/ Sodium (Chloride) 100 mls @ 100 mls/hr IVPB Q12H [facility] PRN Reason: Protocol Last Admin: 05/29/17 10:08 Dose: 100 mls/hr Clindamycin Phosphate (Cleocin In Normal Saline) 600 mg in 50 mls @ 50 mls/hr IVPB Q8@0500,1300,2100 [facility] PRN Reason: Protocol Last Admin: 05/29/17 20:28 Dose: 50 mls/hr Lamotrigine (Lamictal) 25 mg PO TID [facility] Last Admin: 05/29/17 16:21 Dose: 25 mg Nitroglycerin (Nitro-Dur 0.2 Mg/Hr Patch) 1 patch TD DAILY [facility] Last Admin: 05/29/17 08:22 Dose: 1 patch Ondansetron HCl (Zofran Inj) 4 mg IVP Q6 PRN PRN Reason: Nausea/Vomiting Pantoprazole Sodium (Protonix Ec Tab) 40 mg PO DAILY [facility] - Labs Labs: 05/27/17 04:40 05/27/17 04:40 PT 20.9 Seconds (9.8-13.1) H 05/26/17 04:45 INR 1.9 (0.9-1.2) H 05/26/17 04:45 APTT 26.4 Seconds (25.6-37.1) 05/25/17 13:10 - Constitutional Appears: Chronically Ill - Head Exam Head Exam: NORMAL INSPECTION - Eye Exam Eye Exam: PERRL - ENT Exam Additional comments: Hard of hearing L ear - Neck Exam Neck Exam: Normal Inspection - Respiratory Exam Respiratory Exam: Decreased Breath Sounds (at bases) - Cardiovascular Exam Cardiovascular Exam: REGULAR RHYTHM - GI/Abdominal Exam GI & Abdominal Exam: Soft, Normal Bowel Sounds Additional comments: R Cholycystostomy tube in place - Extremities Exam Additional comments: L hip and lateral thigh with vickie in place - Back Exam Back Exam: tenderness - Neurological Exam Neurological Exam: Awake Additional comments: O x1, confused, disoriented, generalized weakness, no focal motor sensory deficit. - Psychiatric Exam Psychiatric exam: Anxious - Skin Skin Exam: Normal Color, Warm Assessment and Plan (1) Cholecystostomy care Status: Acute (2) Acute cholecystitis Status: Acute (3) Sepsis Status: Acute (4) Abdominal pain Status: Acute (5) Anemia Status: Acute (6) Dementia Status: Acute (7) HTN (hypertension) Status: Chronic (8) S/P ORIF (open reduction internal fixation) fracture Status: Chronic (9) Chronic back pain Status: Chronic (10) Generalized weakness Status: Chronic (11) Seizure Status: Chronic (12) Anxiety Status: Chronic (13) Osteoarthrosis involving multiple sites Status: Chronic - Assessment and Plan (Free Text) Plan: continue Aztreonam , Clinda and rest of treatment
[2017-05-30] MEDS: Clindamycin 600mg/50ml NS 600 MG/50 ML BAG IVPB SCH ×3 (04:08→22:06)
[2017-05-30] MEDS: Nitroglycerin 0.2 mg/hr Top Patch TD SCH (08:53)
[2017-05-30] MEDS: Pantoprazole 40 mg EC Tab PO SCH (08:53)
[2017-05-30] MEDS: Aztreonam 1 GM in Sodium Chloride 0.9% 100 ML IVPB SCH ×2 (08:59→23:09)
[2017-05-30 11:09] LABS: BASO % 0.5 % (0.0-2.0); EOS # 0.1 K/uL (0.0-0.7); EOS % 1.8 % (0.0-4.0); HEMOGLOBIN 10.4 g/dL (12.0-16.0); LYMPH # 0.4 K/uL (1.0-4.3); LYMPH % 7.8 % (20.0-40.0); MEAN CELL VOLUME 86.1 fl (81.0-99.0); MEAN CORPUSCULAR HEMOGLOBIN 28.7 pg (27.0-31.0); MEAN CORPUSCULAR HGB CONC 33.4 g/dL (33.0-37.0); MEAN PLATELET VOLUME 9.1 fl (7.2-11.7); MONO # 0.9 K/uL (0.0-0.8); MONO % 17.1 % (0.0-10.0); NEUT # 3.8 K/uL (1.8-7.0); NEUT % 72.8 % (50.0-75.0); NRBC % 0.1 % (0.0-0.0); PLATELET COUNT 154 K/uL (130-400); RBC 3.63 Mil/uL (3.80-5.20); RED CELL DISTRIBUTION WIDTH 15.5 % (11.5-14.5); WHITE BLOOD COUNT 5.2 K/uL (4.8-10.8)
[2017-05-30 11:21] LABS: ALB/GLOB RATIO 0.9 (1.0-2.1); ALBUMIN 2.9 g/dL (3.5-5.0); ALT/SGPT 26 U/L (9-52); AST/SGOT 26 U/L (14-36); BLOOD UREA NITROGEN 2 mg/dl (7-17); CALCIUM 8.3 mg/dL (8.4-10.2); GFR AFRICAN-AMERICAN > 60; GFR NON-AFRICAN AMERICAN > 60
[2017-05-30] MEDS: Potassium CL 10 MEQ/50 ML 50 ML IVPB SCH ×5 (11:52→20:03)
[2017-05-30 12:39] LABS: ANISOCYTOSIS SLIGHT; EOSINOPHIL 1 % (0-7); HYPOCHROMIC SLIGHT; LYMPHOCYTE 14 % (20-50); MONOCYTE 8 % (0-10); NEUTROPHIL 77 % (42-75); PLATELET ESTIMATE NORMAL (NORMAL); TOTAL CELLS COUNTED 100
[2017-05-30 12:40] LABS: LARGE PLATELETS PRESENT
--- NOTE | 2017-05-30 15:30 | CP.PCM.PN ---
Subjective - Date & Time of Evaluation Date of Evaluation: 05/30/17 Time of Evaluation: 12:10 - Subjective Subjective: S/P Cholecystostomy. Awake, no A/D, confused, no c/o of pain now. Objective - Vital Signs/Intake and Output Vital Signs (last 24 hours): Temp Pulse Resp BP Pulse Ox 98.7 F 89 20 155/73 H 94 L 05/30/17 08:30 05/30/17 08:53 05/30/17 08:30 05/30/17 08:53 05/30/17 08:30 Intake and Output: 05/30/17 05/30/17 06:59 18:59 Intake Total 1290 Output Total 30 Balance 1260 - Medications Medications: Current Medications Acetaminophen (Tylenol 650 Mg Supp) 650 mg [place] Q6 PRN PRN Reason: Fever >100.4 F Enoxaparin Sodium (Lovenox) 40 mg SC DAILY [facility] PRN Reason: Protocol Aztreonam 1 gm/ Sodium (Chloride) 100 mls @ 100 mls/hr IVPB Q12H [facility] PRN Reason: Protocol Last Admin: 05/30/17 08:59 Dose: 100 mls/hr Clindamycin Phosphate (Cleocin In Normal Saline) 600 mg in 50 mls @ 50 mls/hr IVPB Q8@0500,1300,2100 [facility] PRN Reason: Protocol Last Admin: 05/30/17 12:03 Dose: 50 mls/hr Potassium Chloride (Potassium Cl 10meq/50ml Sterile Water) 50 mls @ 50 mls/hr IVPB Q1 [facility] Stop: 05/30/17 15:59 Last Admin: 05/30/17 15:06 Dose: 50 mls/hr Lactobacillus Acidophilus (Bacid Acidophilus) 1 cap PO BID [facility] Lamotrigine (Lamictal) 25 mg PO TID [facility] Last Admin: 05/30/17 12:04 Dose: 25 mg Nitroglycerin (Nitro-Dur 0.2 Mg/Hr Patch) 1 patch TD DAILY [facility] Last Admin: 05/30/17 08:53 Dose: 1 patch Ondansetron HCl (Zofran Inj) 4 mg IVP Q6 PRN PRN Reason: Nausea/Vomiting Pantoprazole Sodium (Protonix Ec Tab) 40 mg PO DAILY [facility] Last Admin: 05/30/17 08:53 Dose: 40 mg - Labs Labs: 05/30/17 10:20 05/30/17 10:20 PT 20.9 Seconds (9.8-13.1) H 05/26/17 04:45 INR 1.9 (0.9-1.2) H 05/26/17 04:45 APTT 26.4 Seconds (25.6-37.1) 05/25/17 13:10 - Constitutional Appears: Chronically Ill - Head Exam Head Exam: NORMAL INSPECTION - Eye Exam Eye Exam: PERRL - ENT Exam ENT Exam: Normal Exam Additional comments: hard of hearing L ear - Neck Exam Neck Exam: Normal Inspection - Respiratory Exam Respiratory Exam: Decreased Breath Sounds (at bases) - Cardiovascular Exam Cardiovascular Exam: REGULAR RHYTHM - GI/Abdominal Exam GI & Abdominal Exam: Soft, Tenderness (mild RUQ), Normal Bowel Sounds Additional comments: RUQ T Tube in place. - Extremities Exam Additional comments: L hip vickie in place. Edema LUE - Back Exam Back Exam: tenderness (mild) - Neurological Exam Neurological Exam: Awake Additional comments: O x1, Disoriented, confused, generalized weakness, no focal motor sensory deficit. - Psychiatric Exam Psychiatric exam: Anxious - Skin Skin Exam: Normal Color, Warm Assessment and Plan (1) Cholecystostomy care Status: Acute (2) Acute cholecystitis Status: Acute (3) Sepsis Status: Acute (4) Abdominal pain Status: Acute (5) Anemia Status: Acute (6) Dementia Status: Acute (7) HTN (hypertension) Status: Chronic (8) S/P ORIF (open reduction internal fixation) fracture Status: Chronic (9) Chronic back pain Status: Chronic (10) Generalized weakness Status: Chronic (11) Seizure Status: Chronic (12) Anxiety Status: Chronic (13) Osteoarthrosis involving multiple sites Status: Chronic - Assessment and Plan (Free Text) Plan: Potassium in 2.1, Run of Kcl, f/u ID, continue Aztreonam IV, Clinda and rest of Tx.
[2017-05-30] MEDS: Lactobacillus Acidophilus 500 MU Cap PO SCH (16:27)
[2017-05-30 18:51] LABS: BLOOD UREA NITROGEN 3 mg/dl (7-17); CALCIUM 8.3 mg/dL (8.4-10.2); GFR AFRICAN-AMERICAN > 60; GFR NON-AFRICAN AMERICAN > 60
[2017-05-31] MEDS: Potassium CL 10 MEQ/50 ML 50 ML IVPB SCH ×6 (00:13→22:27)
[2017-05-31] MEDS: Clindamycin 600mg/50ml NS 600 MG/50 ML BAG IVPB SCH ×3 (04:35→20:10)
[2017-05-31] MEDS: Pantoprazole 40 mg EC Tab PO SCH (08:39)
[2017-05-31] MEDS: Lactobacillus Acidophilus 500 MU Cap PO SCH ×2 (08:39→17:25)
[2017-05-31] MEDS: Enoxaparin 40 mg Syringe SC SCH (08:41)
[2017-05-31] MEDS: Nitroglycerin 0.2 mg/hr Top Patch TD SCH (08:41)
--- NOTE | 2017-05-31 08:44 | CARD ---
APPROVED REPORT EKG Measurement Heart [id number] <Conclusion> Normal sinus rhythm Normal ECG
[2017-05-31 08:59] LABS: MEAN CELL VOLUME 85.1 fl (81.0-99.0); MEAN CORPUSCULAR HEMOGLOBIN 28.3 pg (27.0-31.0); MEAN CORPUSCULAR HGB CONC 33.3 g/dL (33.0-37.0); RBC 3.52 Mil/uL (3.80-5.20); RED CELL DISTRIBUTION WIDTH 15.2 % (11.5-14.5); WHITE BLOOD COUNT 5.5 K/uL (4.8-10.8)
[2017-05-31 09:15] LABS: BLOOD UREA NITROGEN 3 mg/dl (7-17); CALCIUM 8.4 mg/dL (8.4-10.2); GFR AFRICAN-AMERICAN > 60; GFR NON-AFRICAN AMERICAN > 60
[2017-05-31] MEDS ORDERED: Potassium Chloride 20 mEq/15 ml LIQ UD PO ONE (09:34)
[2017-05-31] MEDS: Aztreonam 1 GM in Sodium Chloride 0.9% 100 ML IVPB SCH (09:38)
[2017-05-31] MEDS: Fluticasone-Salmeterol 500-50mcg Diskus INH SCH ×2 (11:31→21:16)
[2017-05-31] MEDS ORDERED: Potassium CL 10mEq/100ml 100 ML IVPB SCH (12:00)
--- NOTE | 2017-05-31 12:34 | RAD ---
PROCEDURE: Left Hip X-ray Radiographs. HISTORY: eval previous hip sx COMPARISON: 05/12/2017 FINDINGS: BONES: Stable position of major fracture fragments proximal right femur. No evidence of orthopedic hardware failure. JOINTS: Normal. SOFT TISSUES: Normal. OTHER FINDINGS: None. IMPRESSION: No significant interval change compared to the prior examination(s).
--- NOTE | 2017-05-31 13:40 | CP.PCM.PN ---
Subjective - Date & Time of Evaluation Date of Evaluation: 05/31/17 Time of Evaluation: 13:10 - Subjective Subjective: S/P Cholecystostomy. Awake, confused, doesn't want to talk. Objective - Vital Signs/Intake and Output Vital Signs (last 24 hours): Temp Pulse Resp BP Pulse Ox 98.7 F 108 H 20 161/78 H 95 05/31/17 07:56 05/31/17 07:56 05/31/17 07:56 05/31/17 11:29 05/31/17 07:56 - Medications Medications: Current Medications Acetaminophen (Tylenol 650 Mg Supp) 650 mg [place] Q6 PRN PRN Reason: Fever >100.4 F Amlodipine Besylate (Norvasc) 5 mg PO DAILY [facility] Last Admin: 05/31/17 11:29 Dose: 5 mg Aspirin (Ecotrin) 81 mg PO DAILY [facility] Last Admin: 05/31/17 11:30 Dose: 81 mg Atorvastatin Calcium (Lipitor) 40 mg PO HS [facility] Duloxetine HCl (Cymbalta) 20 mg PO DAILY [facility] Last Admin: 05/31/17 11:30 Dose: 20 mg Enoxaparin Sodium (Lovenox) 40 mg SC DAILY [facility] PRN Reason: Protocol Last Admin: 05/31/17 08:41 Dose: 40 mg Fentanyl (Duragesic) 1 patch TD Q72H [facility] PRN Reason: Protocol Gabapentin (Neurontin) 100 mg PO TID [facility] Clindamycin Phosphate (Cleocin In Normal Saline) 600 mg in 50 mls @ 50 mls/hr IVPB Q8@0500,1300,2100 [facility] PRN Reason: Protocol Last Admin: 05/31/17 04:35 Dose: 50 mls/hr Aztreonam 1 gm/ Sodium (Chloride) 50 mls @ 50 mls/hr IVPB Q12@1000,2200 [facility] PRN Reason: Protocol Potassium Chloride (Potassium Cl 10meq/50ml Sterile Water) 50 mls @ 50 mls/hr IVPB Q1 [facility] Stop: 05/31/17 13:59 Lactobacillus Acidophilus (Bacid Acidophilus) 1 cap PO BID [facility] Last Admin: 05/31/17 08:39 Dose: 1 cap Lamotrigine (Lamictal) 25 mg PO TID [facility] Last Admin: 05/31/17 08:39 Dose: 25 mg Nitroglycerin (Nitro-Dur 0.2 Mg/Hr Patch) 1 patch TD DAILY [facility] Last Admin: 05/31/17 08:41 Dose: 1 patch Ondansetron HCl (Zofran Inj) 4 mg IVP Q6 PRN PRN Reason: Nausea/Vomiting Pantoprazole Sodium (Protonix Ec Tab) 40 mg PO DAILY [facility] Last Admin: 05/31/17 08:39 Dose: 40 mg Fluticasone/Salmeterol (Advair Diskus 500/50) 1 puff INH Q12H [facility] Last Admin: 05/31/17 11:31 Dose: 1 unit - Labs Labs: 05/31/17 08:45 05/31/17 08:45 PT 20.9 Seconds (9.8-13.1) H 05/26/17 04:45 INR 1.9 (0.9-1.2) H 05/26/17 04:45 APTT 26.4 Seconds (25.6-37.1) 05/25/17 13:10 - Constitutional Appears: Chronically Ill - Head Exam Head Exam: NORMAL INSPECTION - Eye Exam Eye Exam: PERRL - ENT Exam Additional comments: Hard of hearing L ear - Neck Exam Neck Exam: Normal Inspection - Respiratory Exam Respiratory Exam: Decreased Breath Sounds (at bases) - Cardiovascular Exam Cardiovascular Exam: REGULAR RHYTHM, Murmur (systolic LSB) - GI/Abdominal Exam GI & Abdominal Exam: Soft, Tenderness (mild RUQ), Normal Bowel Sounds Additional comments: RUQ T Tube in place - Extremities Exam Additional comments: L hip with vickie in place, LUE mild edema. - Back Exam Back Exam: tenderness (mild) - Neurological Exam Neurological Exam: Awake Additional comments: Ox1, Confused, disoriented, generalized weakness, no focal motor sensory deficit. - Psychiatric Exam Psychiatric exam: Anxious - Skin Skin Exam: Normal Color, Warm Assessment and Plan (1) Cholecystostomy care Status: Acute (2) Acute cholecystitis Status: Acute (3) Sepsis Status: Acute (4) Abdominal pain Status: Acute (5) Anemia Status: Acute (6) Dementia Status: Acute (7) HTN (hypertension) Status: Chronic (8) S/P ORIF (open reduction internal fixation) fracture Status: Chronic (9) Chronic back pain Status: Chronic (10) Generalized weakness Status: Chronic (11) Seizure Status: Chronic (12) Anxiety Status: Chronic (13) Osteoarthrosis involving multiple sites Status: Chronic - Assessment and Plan (Free Text) Plan: F/U LUE U-S, Pt with elevated BP and HR yesterday, EKG showed: Normal sinus rhythm. Continue Clinda, Aztreonam, Nitro-Dur patches, Norvasc, Lovenox, Duragesic Patch and rest of Tx. , K replacement
--- NOTE | 2017-05-31 16:27 | US ---
PROCEDURE: Left Upper Extremity Venous Doppler HISTORY: swelling, r/o dvt COMPARISON: None available. TECHNIQUE: Left upper extremity deep veins, including the lower internal jugular, subclavian, axillary and brachial veins, were evaluated flow, compressibility and respiratory phasicity. FINDINGS: Normal flow, compressibility and respiratory phasicity was observed in the the left upper extremity deep veins. There is an acute occlusive thrombus in the proximal and mid basilic vein with distension of the vein. There is normal flow in the distal basilic vein. The cephalic vein is patent. IMPRESSION: Acute occlusive superficial thrombophlebitis in the proximal and mid basilic vein. No evidence of deep venous thrombosis.
[2017-06-01] MEDS: Clindamycin 600mg/50ml NS 600 MG/50 ML BAG IVPB SCH ×3 (04:35→20:01)
[2017-06-01 06:32] LABS: BASO # 0.1 K/uL (0.0-0.2); BASO % 0.9 % (0.0-2.0); EOS # 0.2 K/uL (0.0-0.7); EOS % 3.3 % (0.0-4.0); HEMOGLOBIN 9.7 g/dL (12.0-16.0); LYMPH # 0.9 K/uL (1.0-4.3); LYMPH % 14.4 % (20.0-40.0); MEAN CELL VOLUME 86.4 fl (81.0-99.0); MEAN CORPUSCULAR HEMOGLOBIN 28.4 pg (27.0-31.0); MEAN CORPUSCULAR HGB CONC 32.9 g/dL (33.0-37.0); MEAN PLATELET VOLUME 9.4 fl (7.2-11.7); MONO % 16.6 % (0.0-10.0); NEUT # 4.1 K/uL (1.8-7.0); NEUT % 64.8 % (50.0-75.0); RBC 3.42 Mil/uL (3.80-5.20); RED CELL DISTRIBUTION WIDTH 15.5 % (11.5-14.5); WHITE BLOOD COUNT 6.3 K/uL (4.8-10.8)
[2017-06-01 06:42] LABS: ALB/GLOB RATIO 0.9 (1.0-2.1); ALBUMIN 2.8 g/dL (3.5-5.0); ALT/SGPT 22 U/L (9-52); AST/SGOT 32 U/L (14-36); BLOOD UREA NITROGEN 8 mg/dl (7-17); CALCIUM 8.4 mg/dL (8.4-10.2); GFR AFRICAN-AMERICAN > 60; GFR NON-AFRICAN AMERICAN > 60
[2017-06-01] MEDS: Lactobacillus Acidophilus 500 MU Cap PO SCH ×2 (09:11→17:44)
[2017-06-01] MEDS: Nitroglycerin 0.2 mg/hr Top Patch TD SCH (09:12)
[2017-06-01] MEDS: Pantoprazole 40 mg EC Tab PO SCH (09:12)
[2017-06-01] MEDS: Enoxaparin 40 mg Syringe SC SCH (09:12)
[2017-06-01] MEDS: Fluticasone-Salmeterol 500-50mcg Diskus INH SCH ×2 (09:45→21:13)
[2017-06-01] MEDS ORDERED: Lidocaine 1% Inj (20ml) ONE (11:40)
--- NOTE | 2017-06-01 12:23 | CP.PCM.CON ---
History of Present Illness - History of Present Illness History of Present Illness: Orthopedic consultation DR. Barboza 82F 3 weeks s/p left hip ORIF for intertrochanteric fracture. Called for consult as patient still has retained vickie. Patient confused, complains during exam, doesn't follow commands, somewhat combative. Past Patient History - Infectious Disease Hx of Infectious Diseases: None - Past Medical History & Family History Past Medical History?: Yes - Past Social History Smoking Status: Never Smoked Alcohol: None Drugs: Denies Home Situation {Lives}: Detention - CARDIAC Hx Cardiac Disorders: Yes Hx Congestive Heart Failure: Yes Hx Hypercholesterolemia: Yes Hx Hypertension: Yes - PULMONARY Hx Respiratory Disorders: Yes Hx Asthma: Yes Hx Chronic Obstructive Pulmonary Disease (COPD): Yes - NEUROLOGICAL Hx Neurological Disorder: Yes Hx Dementia: Yes Hx Seizures: Yes - HEENT Hx HEENT Problems: No - RENAL Hx Chronic Kidney Disease: No - ENDOCRINE/METABOLIC Hx Endocrine Disorders: No - HEMATOLOGICAL/ONCOLOGICAL Hx Blood Disorders: Yes Hx Anemia: Yes Hx Blood Transfusions: Yes Hx Human Immunodeficiency Virus (HIV): No - INTEGUMENTARY Hx Dermatological Problems: No - MUSCULOSKELETAL/RHEUMATOLOGICAL Hx Musculoskeletal Disorders: Yes Hx Arthritis: Yes (poly) Hx Back Pain: Yes Hx Falls: Yes Hx Fractures: Yes (L wrist , comp Fx T Spine) Hx Osteoporosis: Yes - GASTROINTESTINAL Hx Gastrointestinal Disorders: Yes Hx Constipation: Yes - GENITOURINARY/GYNECOLOGICAL Hx Genitourinary Disorders: Yes Hx Incontinence: Yes - PSYCHIATRIC Hx Psychophysiologic Disorder: Yes Hx Anxiety: Yes Hx Depression: Yes - SURGICAL HISTORY Hx Surgeries: Yes Hx Coronary Artery Bypass Graft: Yes Hx Open Reduction Internal Fixation: Yes (L hip) - ANESTHESIA Hx Anesthesia: Yes Hx Anesthesia Reactions: No Hx Malignant Hyperthermia: No Meds Allergies/Adverse Reactions: Allergies Allergy/AdvReac Type Severity Reaction Status Date / Time Penicillins Allergy RASH Verified 05/25/17 12:15 - Medications Medications: Current Medications Acetaminophen (Tylenol 650 Mg Supp) [address] Q6 PRN PRN Reason: Fever >100.4 F Amlodipine Besylate (Norvasc) 5 mg PO DAILY [facility] Last Admin: 06/01/17 09:12 Dose: 5 mg Aspirin (Ecotrin) 81 mg PO DAILY [facility] Last Admin: 06/01/17 09:12 Dose: 81 mg Atorvastatin Calcium (Lipitor) 40 mg PO HS [facility] Last Admin: 05/31/17 21:23 Dose: Not Given Duloxetine HCl (Cymbalta) 20 mg PO DAILY [facility] Last Admin: 06/01/17 09:12 Dose: 20 mg Enoxaparin Sodium (Lovenox) 40 mg SC DAILY [facility] PRN Reason: Protocol Last Admin: 06/01/17 09:12 Dose: 40 mg Fentanyl (Duragesic) 1 patch TD Q72H [facility] PRN Reason: Protocol Last Admin: 05/31/17 16:12 Dose: 1 patch Gabapentin (Neurontin) 100 mg PO TID [facility] Last Admin: 06/01/17 09:12 Dose: 100 mg Clindamycin Phosphate (Cleocin In Normal Saline) 600 mg in 50 mls @ 50 mls/hr IVPB Q8@0500,1300,2100 [facility] PRN Reason: Protocol Last Admin: 06/01/17 04:35 Dose: 50 mls/hr Aztreonam 1 gm/ Sodium (Chloride) 50 mls @ 50 mls/hr IVPB Q12@1000,2200 [facility] PRN Reason: Protocol Last Admin: 05/31/17 21:16 Dose: 50 mls/hr Potassium Chloride (Potassium Cl 10meq/50ml Sterile Water) 50 mls @ 50 mls/hr IVPB Q1 [facility] Stop: 06/01/17 12:59 Lactobacillus Acidophilus (Bacid Acidophilus) 1 cap PO BID [facility] Last Admin: 06/01/17 09:11 Dose: 1 cap Lamotrigine (Lamictal) 25 mg PO TID [facility] Last Admin: 06/01/17 09:11 Dose: 25 mg Nitroglycerin (Nitro-Dur 0.2 Mg/Hr Patch) 1 patch TD DAILY [facility] Last Admin: 06/01/17 09:12 Dose: 1 patch Ondansetron HCl (Zofran Inj) 4 mg IVP Q6 PRN PRN Reason: Nausea/Vomiting Pantoprazole Sodium (Protonix Ec Tab) 40 mg PO DAILY [facility] Last Admin: 06/01/17 09:12 Dose: 40 mg Fluticasone/Salmeterol (Advair Diskus 500/50) 1 puff INH Q12H [facility] Last Admin: 06/01/17 09:45 Dose: Not Given Physical Exam - Constitutional Appears: Well, No Acute Distress - Extremities Exam Additional comments: Left hip: incision intact, well healed. vickie removed, steri strips applied. + DP pulse, calves soft NT neg homasn. No erythema. Results - Vital Signs Recent Vital Signs: Last Vital Signs Temp 98.1 F 06/01/17 07:51 Pulse 97 H 06/01/17 07:51 Resp 20 06/01/17 07:51 BP 146/79 06/01/17 07:51 Pulse Ox 99 06/01/17 07:51 - Labs Result Diagrams: 06/01/17 06:00 06/01/17 06:00 Labs: Laboratory Results - last 24 hr 06/01/17 06/01/17 06:00 06:00 WBC 6.3 RBC 3.42 L Hgb 9.7 L Hct 29.5 L MCV 86.4 MCH 28.4 MCHC 32.9 L RDW 15.5 H Plt Count 143 MPV 9.4 Neut % (Auto) 64.8 Lymph % (Auto) 14.4 L [place] % (Auto) 16.6 H Eos % (Auto) 3.3 Baso % (Auto) 0.9 Neut # (Auto) 4.1 Lymph # (Auto) 0.9 L [place] # (Auto) 1.0 H Eos # (Auto) 0.2 Baso # (Auto) 0.1 Sodium 140 Potassium 2.9 L Chloride 96 L Carbon Dioxide 38 H Anion Gap 9 L BUN 8 Creatinine 0.3 L Est GFR ( Amer) > 60 Est GFR (Non-Af Amer) > 60 Random Glucose 89 Calcium 8.4 Total Bilirubin 0.8 AST 32 ALT 22 Alkaline Phosphatase 91 Total Protein 6.0 L Albumin 2.8 L Globulin 3.2 Albumin/Globulin Ratio 0.9 L - Impressions Impression: Patient Name / ID : LENORA PAGAN N / [id number] Exam Date : 05/30/2017 13:46:47 ( Approved ) Study Comment : Sex / Age : F / [id number] Creator : Giorgio Manjarrez MD Dictator : Giorgio Manjarrez MD Vice President Integrated : Portrait Photographer : Giorgio Manjarrez MD Approver2 : Report Date : 05/31/2017 12:26:57 My Comment : PROCEDURE: Left Hip X-ray Radiographs. HISTORY: eval previous hip sx COMPARISON: 05/12/2017 FINDINGS: BONES: Stable position of major fracture fragments proximal right femur. No evidence of orthopedic hardware failure. JOINTS: Normal. SOFT TISSUES: Normal. OTHER FINDINGS: None. IMPRESSION: No significant interval change compared to the prior examination(s). Assessment & Plan (1) S/P ORIF (open reduction internal fixation) fracture Assessment and Plan: vickie removed may resume PT imaging reviewed 05/30, shows good position of fracture and hardware d/w Dr. Barboza, agrees with above orthopedically stable for d/c f/u [address] Barboza office, call for appt Status: Chronic Priority: High
--- NOTE | 2017-06-01 13:53 | CP.PCM.PN ---
Subjective - Subjective Subjective: Awake , no AD , not answering questions Objective - Vital Signs/Intake and Output Vital Signs (last 24 hours): Temp Pulse Resp BP Pulse Ox 98.1 F 97 H 20 146/79 99 06/01/17 07:51 06/01/17 07:51 06/01/17 07:51 06/01/17 07:51 06/01/17 07:51 - Medications Medications: Current Medications Acetaminophen (Tylenol 650 Mg Supp) 650 mg SD Q6 PRN PRN Reason: Fever >100.4 F Amlodipine Besylate (Norvasc) 5 mg PO DAILY [facility] Last Admin: 06/01/17 09:12 Dose: 5 mg Aspirin (Ecotrin) 81 mg PO DAILY [facility] Last Admin: 06/01/17 09:12 Dose: 81 mg Atorvastatin Calcium (Lipitor) 40 mg PO HS [facility] Last Admin: 05/31/17 21:23 Dose: Not Given Duloxetine HCl (Cymbalta) 20 mg PO DAILY [facility] Last Admin: 06/01/17 09:12 Dose: 20 mg Enoxaparin Sodium (Lovenox) 40 mg SC DAILY [facility] PRN Reason: Protocol Last Admin: 06/01/17 09:12 Dose: 40 mg Fentanyl (Duragesic) 1 patch TD Q72H [facility] PRN Reason: Protocol Last Admin: 05/31/17 16:12 Dose: 1 patch Gabapentin (Neurontin) 100 mg PO TID [facility] Last Admin: 06/01/17 13:05 Dose: Not Given Clindamycin Phosphate (Cleocin In Normal Saline) 600 mg in 50 mls @ 50 mls/hr IVPB Q8@0500,1300,2100 [facility] PRN Reason: Protocol Last Admin: 06/01/17 13:37 Dose: 50 mls/hr Aztreonam 1 gm/ Sodium (Chloride) 50 mls @ 50 mls/hr IVPB Q12@1000,2200 [facility] PRN Reason: Protocol Last Admin: 05/31/17 21:16 Dose: 50 mls/hr Lactobacillus Acidophilus (Bacid Acidophilus) 1 cap PO BID [facility] Last Admin: 06/01/17 09:11 Dose: 1 cap Lamotrigine (Lamictal) 25 mg PO TID [facility] Last Admin: 06/01/17 13:05 Dose: Not Given Nitroglycerin (Nitro-Dur 0.2 Mg/Hr Patch) 1 patch TD DAILY [facility] Last Admin: 06/01/17 09:12 Dose: 1 patch Ondansetron HCl (Zofran Inj) 4 mg IVP Q6 PRN PRN Reason: Nausea/Vomiting Pantoprazole Sodium (Protonix Ec Tab) 40 mg PO DAILY [facility] Last Admin: 06/01/17 09:12 Dose: 40 mg Fluticasone/Salmeterol (Advair Diskus 500/50) 1 puff INH Q12H [facility] Last Admin: 06/01/17 09:45 Dose: Not Given - Labs Labs: 06/01/17 06:00 06/01/17 06:00 PT 20.9 Seconds (9.8-13.1) H 05/26/17 04:45 INR 1.9 (0.9-1.2) H 05/26/17 04:45 APTT 26.4 Seconds (25.6-37.1) 05/25/17 13:10 - Constitutional Appears: Chronically Ill - Head Exam Head Exam: NORMAL INSPECTION - Eye Exam Eye Exam: PERRL - ENT Exam ENT Exam: Normal External Ear Exam - Neck Exam Neck Exam: Normal Inspection - Respiratory Exam Respiratory Exam: Decreased Breath Sounds (at bases) - GI/Abdominal Exam GI & Abdominal Exam: Soft, Normal Bowel Sounds Additional comments: Cholecystostomy tube - Extremities Exam Additional comments: L hip vickie removed , neuromuscular status distal good - Back Exam Back Exam: tenderness (mild) - Neurological Exam Additional comments: awake, not answering questions , at times talking with her self, generalized weakness - Psychiatric Exam Psychiatric exam: Anxious - Skin Skin Exam: Warm Assessment and Plan (1) Cholecystostomy care Status: Acute (2) Acute cholecystitis Status: Acute (3) Sepsis Status: Acute (4) Abdominal pain Status: Acute (5) Anemia Status: Acute (6) Dementia Status: Acute (7) HTN (hypertension) Status: Chronic (8) S/P ORIF (open reduction internal fixation) fracture Status: Chronic (9) Chronic back pain Status: Chronic (10) Generalized weakness Status: Chronic (11) Seizure Status: Chronic (12) Anxiety Status: Chronic (13) Osteoarthrosis involving multiple sites Status: Chronic - Assessment and Plan (Free Text) Plan: superficial thrombophlebitis LUE, to have PICC line insertion, continue rest of treatment
[2017-06-01] MEDS: Potassium CL 10 MEQ/50 ML 50 ML IVPB SCH ×2 (16:15→17:20)
[2017-06-01] MEDS ORDERED: Vitamins A & D Oint UD Foilpak TOP PRN (17:40)
[2017-06-02] MEDS: Clindamycin 600mg/50ml NS 600 MG/50 ML BAG IVPB SCH ×3 (04:19→21:19)
[2017-06-02 06:40] LABS: HEMOGLOBIN 9.6 g/dL (12.0-16.0); MEAN CELL VOLUME 86.4 fl (81.0-99.0); MEAN CORPUSCULAR HEMOGLOBIN 28.3 pg (27.0-31.0); MEAN CORPUSCULAR HGB CONC 32.7 g/dL (33.0-37.0); RBC 3.38 Mil/uL (3.80-5.20); RED CELL DISTRIBUTION WIDTH 15.8 % (11.5-14.5); WHITE BLOOD COUNT 5.6 K/uL (4.8-10.8)
[2017-06-02 06:46] LABS: BLOOD UREA NITROGEN 10 mg/dl (7-17); CALCIUM 8.7 mg/dL (8.4-10.2); GFR AFRICAN-AMERICAN > 60; GFR NON-AFRICAN AMERICAN > 60
[2017-06-02 07:47] VITALS: RESP 20
[2017-06-02] MEDS: Enoxaparin 40 mg Syringe SC SCH (08:33)
[2017-06-02] MEDS: Lactobacillus Acidophilus 500 MU Cap PO SCH ×2 (08:34→16:17)
[2017-06-02] MEDS: Pantoprazole 40 mg EC Tab PO SCH (08:34)
[2017-06-02] MEDS: Nitroglycerin 0.2 mg/hr Top Patch TD SCH (08:35)
[2017-06-02] MEDS: Fluticasone-Salmeterol 500-50mcg Diskus INH SCH ×2 (08:47→21:19)
[2017-06-02] MEDS: Potassium CL 10mEq/100ml 100 ML IVPB SCH ×2 (14:13→14:57)
[2017-06-02] MEDS ORDERED: Lidocaine 1% Inj (20ml) ONE (14:20)
--- NOTE | 2017-06-02 14:33 | PCM.SURG1 ---
Surgeon's Initial Post Op Note - Surgeon's Notes Surgeon: Rod Hill MD Picker: [email or web address] Type of Anesthesia: Local Pre-Operative Diagnosis: Poor venous access Operative Findings: Patent right brachial vein Post-Operative Diagnosis: Poor venous access Operation Performed: Single lumen picc placement right basilic vein, 35 cm Tip is in the SVC. Specimen/Specimens Removed: none Estimated Blood Loss: EBL {In ML}: 3 Blood Products Given: N/A Drains Used: No Drains Post-Op Condition: Fair Date of Surgery/Procedure: 06/02/17 Time of Surgery/Procedure: 14:30
[2017-06-02] MEDS: Potassium CL 10 MEQ/50 ML 50 ML IV SCH ×2 (14:56→15:03)
[2017-06-02 16:19] VITALS: TEMP 98.8; O2SAT 99
--- NOTE | 2017-06-02 16:22 | CP.PCM.PN ---
Subjective - Date & Time of Evaluation Date of Evaluation: 06/02/17 Time of Evaluation: 11:00 - Subjective Subjective: F/U S/P Cholecystostomy. Pt awake, able to talk, confused, no specific c/o. Objective - Vital Signs/Intake and Output Vital Signs (last 24 hours): Temp Pulse Resp BP Pulse Ox 98.8 F 90 20 100/63 99 06/02/17 16:18 06/02/17 16:18 06/02/17 16:18 06/02/17 16:18 06/02/17 16:18 Intake and Output: 06/02/17 06/02/17 06:59 18:59 Output Total 10 Balance -10 - Medications Medications: Current Medications Acetaminophen (Tylenol 650 Mg Supp) [address] Q6 PRN PRN Reason: Fever >100.4 F Amlodipine Besylate (Norvasc) 5 mg PO DAILY [facility] Last Admin: 06/02/17 08:34 Dose: 5 mg Aspirin (Ecotrin) 81 mg PO DAILY [facility] Last Admin: 06/02/17 08:34 Dose: 81 mg Atorvastatin Calcium (Lipitor) 40 mg PO HS [facility] Last Admin: 06/01/17 21:13 Dose: 40 mg Duloxetine HCl (Cymbalta) 20 mg PO DAILY [facility] Last Admin: 06/02/17 08:34 Dose: 20 mg Enoxaparin Sodium (Lovenox) 40 mg SC DAILY [facility] PRN Reason: Protocol Last Admin: 06/02/17 08:33 Dose: 40 mg Fentanyl (Duragesic) 1 patch TD Q72H [facility] PRN Reason: Protocol Last Admin: 05/31/17 16:12 Dose: 1 patch Gabapentin (Neurontin) 100 mg PO TID [facility] Last Admin: 06/02/17 16:18 Dose: Not Given Clindamycin Phosphate (Cleocin In Normal Saline) 600 mg in 50 mls @ 50 mls/hr IVPB Q8@0500,1300,2100 [facility] PRN Reason: Protocol Last Admin: 06/02/17 12:04 Dose: 50 mls/hr Aztreonam 1 gm/ Sodium (Chloride) 50 mls @ 50 mls/hr IVPB Q12@0300,1500 [facility] PRN Reason: Protocol Last Admin: 06/02/17 15:11 Dose: 50 mls/hr Potassium Chloride (Potassium Cl 10meq/50ml Sterile Water) 50 mls @ 50 mls/hr IV Q1 [facility] Stop: 06/02/17 16:59 Last Admin: 06/02/17 15:03 Dose: 50 mls/hr Lactobacillus Acidophilus (Bacid Acidophilus) 1 cap PO BID [facility] Last Admin: 06/02/17 16:17 Dose: Not Given Lamotrigine (Lamictal) 25 mg PO TID [facility] Last Admin: 06/02/17 16:18 Dose: Not Given Nitroglycerin (Nitro-Dur 0.2 Mg/Hr Patch) 1 patch TD DAILY [facility] Last Admin: 06/02/17 08:35 Dose: 1 patch Ondansetron HCl (Zofran Inj) 4 mg IVP Q6 PRN PRN Reason: Nausea/Vomiting Pantoprazole Sodium (Protonix Ec Tab) 40 mg PO DAILY [facility] Last Admin: 06/02/17 08:34 Dose: 40 mg Fluticasone/Salmeterol (Advair Diskus 500/50) 1 puff INH Q12H [facility] Last Admin: 06/02/17 08:47 Dose: Not Given Vitamin A (Vitamin A & D Oint Ud Foilpak) 1 ea TOP BID PRN PRN Reason: Dry lips - Labs Labs: 06/02/17 05:40 06/02/17 05:40 PT 20.9 Seconds (9.8-13.1) H 05/26/17 04:45 INR 1.9 (0.9-1.2) H 05/26/17 04:45 APTT 26.4 Seconds (25.6-37.1) 05/25/17 13:10 - Constitutional Appears: Chronically Ill - Head Exam Head Exam: NORMAL INSPECTION - Eye Exam Eye Exam: PERRL - ENT Exam ENT Exam: Normal External Ear Exam - Neck Exam Neck Exam: Normal Inspection - Respiratory Exam Respiratory Exam: Decreased Breath Sounds (at bases) - Cardiovascular Exam Cardiovascular Exam: REGULAR RHYTHM - GI/Abdominal Exam GI & Abdominal Exam: Soft, Normal Bowel Sounds Additional comments: Colecystostomy tube - Extremities Exam Additional comments: Neuromuscular status distal good. - Back Exam Back Exam: tenderness (mild) - Neurological Exam Neurological Exam: Awake Additional comments: No answering questions, at times talking with herself, generalized weakness. - Psychiatric Exam Psychiatric exam: Anxious - Skin Skin Exam: Warm Assessment and Plan (1) Cholecystostomy care Status: Acute (2) Acute cholecystitis Status: Acute (3) Sepsis Status: Acute (4) Abdominal pain Status: Acute (5) Anemia Status: Acute (6) Dementia Status: Acute (7) HTN (hypertension) Status: Chronic (8) S/P ORIF (open reduction internal fixation) fracture Status: Chronic (9) Chronic back pain Status: Chronic (10) Generalized weakness Status: Chronic (11) Seizure Status: Chronic (12) Anxiety Status: Chronic (13) Osteoarthrosis involving multiple sites Status: Chronic - Assessment and Plan (Free Text) Plan: For PICC line insertion today, continue Aztreonam and rest of Tx.
[2017-06-03] MEDS: Clindamycin 600mg/50ml NS 600 MG/50 ML BAG IVPB SCH (04:33)
[2017-06-03] MEDS: Fluticasone-Salmeterol 500-50mcg Diskus INH SCH (09:15)
[2017-06-03] MEDS: Lactobacillus Acidophilus 500 MU Cap PO SCH (09:20)
[2017-06-03] MEDS: Enoxaparin 40 mg Syringe SC SCH (09:23)
[2017-06-03] MEDS: Nitroglycerin 0.2 mg/hr Top Patch TD SCH (09:24)
[2017-06-03] MEDS: Pantoprazole 40 mg EC Tab PO SCH (09:25)
[2017-06-03 09:26] VITALS: BP 117/68; PULSE 93
[2017-06-03 10:45] LABS: HEMOGLOBIN 9.5 g/dL (12.0-16.0); MEAN CELL VOLUME 86.7 fl (81.0-99.0); MEAN CORPUSCULAR HEMOGLOBIN 28.4 pg (27.0-31.0); MEAN CORPUSCULAR HGB CONC 32.7 g/dL (33.0-37.0); RBC 3.37 Mil/uL (3.80-5.20); RED CELL DISTRIBUTION WIDTH 16.1 % (11.5-14.5)
[2017-06-03 10:52] LABS: BLOOD UREA NITROGEN 8 mg/dl (7-17); CALCIUM 8.8 mg/dL (8.4-10.2); GFR AFRICAN-AMERICAN > 60; GFR NON-AFRICAN AMERICAN > 60
[2017-06-03] MEDS: Potassium CL 10 MEQ/50 ML 50 ML IVPB SCH ×2 (12:47→12:48)
[2017-06-03] MEDS ORDERED: Clindamycin 600mg/50ml NS 600 MG/50 ML BAG IVPB SCH (13:00)
--- NOTE | 2017-06-03 13:48 | CP.PCM.PCO ---
Physician Communication Note - Physician Communication Note Physician Communication Note: Per Dr. Lrakin, pt requires IV abx for at least 1 more week
--- NOTE | 2017-06-03 15:57 | VASCULAR ---
PROCEDURE: Date of procedure: 06/02/2017 Procedure: 1. Placement of a right arm PICC with ultrasound and fluoroscopic guidance, CPT 67711 2. PICC tip confirmation with spot radiograph and is in the superior vena cava Medications: 1 percent lidocaine Total Fluoro time: 4 seconds Radiation: 0.53 MGy EBL: 2 cc HISTORY: Infection requiring long-term IV antibiotics TECHNIQUE: Following informed consent and procedure time-out, the patient was placed supine on the interventional table and the right arm prepped and draped in the usual sterile fashion. Ultrasound showed a patent and compressible right basilic vein. After the skin was anesthetized with lidocaine, the basilic vein was accessed with micro micropuncture technique using ultrasound guidance. A guidewire was then advanced under fluoroscopic guidance into the superior vena cava. An image documenting ultrasound guidance for vascular access was permanently saved. The length of the single-lumen 4 Croatian PICC was trimmed to 33 centimeters and advanced through a peel-away sheath. The PICC was position with tip of PICC confirm a spot radiograph the superior vena cava. The PICC was secured to the patient's skin. The PICC was flushed. A biopatch and sterile dressing was applied. IMPRESSION: Placement of a single-lumen 4 Croatian PICC trimmed to 33 centimeters via right basilic vein. The tip of the PICC is confirmed with spot radiograph and is in the superior vena cava.
--- NOTE | 2017-06-03 18:32 | CP.PCM.DIS ---
Provider - Provider Date of Admission: 05/25/17 17:56 Attending physician: Sj Lara MD Diagnosis - Discharge Diagnosis (1) Cholecystostomy care Status: Acute (2) Acute cholecystitis Status: Acute Priority: High (3) Sepsis Status: Acute Priority: High (4) Abdominal pain Status: Acute Priority: High (5) Anemia Status: Acute Priority: High (6) Dementia Status: Acute (7) HTN (hypertension) Status: Chronic (8) S/P ORIF (open reduction internal fixation) fracture Status: Chronic Priority: High (9) Chronic back pain Status: Chronic Priority: High (10) Generalized weakness Status: Chronic Priority: High (11) Seizure Status: Chronic Priority: Medium (12) Anxiety Status: Chronic Priority: Medium (13) Osteoarthrosis involving multiple sites Status: Chronic Priority: Medium Hospital Course - Lab Results Lab Results: Micro Results 05/26/17 15:00 Bile Gram Stain - Final 05/26/17 15:00 Bile Body Fluid Culture - Final NO GROWTH AFTER 4 DAYS 05/25/17 13:10 Blood Blood Culture - Final NO GROWTH AFTER 5 DAYS 05/25/17 13:10 Blood Gram Stain - Final TEST NOT PERFORMED 05/25/17 13:10 Blood Blood Culture - Final NO GROWTH AFTER 5 DAYS 05/25/17 13:10 Blood Gram Stain - Final TEST NOT PERFORMED 05/27/17 17:00 Nose MRSA Culture (Admit) - Final MRSA NOT DETECTED Most Recent Lab Values WBC 5.0 K/uL (4.8-10.8) 06/03/17 10:39 RBC 3.37 Mil/uL (3.80-5.20) L 06/03/17 10:39 Hgb 9.5 g/dL (12.0-16.0) L 06/03/17 10:39 Hct 29.2 % (34.0-47.0) L 06/03/17 10:39 MCV 86.7 fl (81.0-99.0) 06/03/17 10:39 MCH 28.4 pg (27.0-31.0) 06/03/17 10:39 MCHC 32.7 g/dL (33.0-37.0) L 06/03/17 10:39 RDW 16.1 % (11.5-14.5) H 06/03/17 10:39 Plt Count 189 K/uL (130-400) 06/03/17 10:39 MPV 9.4 fl (7.2-11.7) 06/01/17 06:00 Neut % (Auto) 64.8 % (50.0-75.0) 06/01/17 06:00 Lymph % (Auto) 14.4 % (20.0-40.0) L 06/01/17 06:00 [place] % (Auto) 16.6 % (0.0-10.0) H 06/01/17 06:00 Eos % (Auto) 3.3 % (0.0-4.0) 06/01/17 06:00 Baso % (Auto) 0.9 % (0.0-2.0) 06/01/17 06:00 Neut # (Auto) 4.1 K/uL (1.8-7.0) 06/01/17 06:00 Lymph # (Auto) 0.9 K/uL (1.0-4.3) L 06/01/17 06:00 [place] # (Auto) 1.0 K/uL (0.0-0.8) H 06/01/17 06:00 Eos # (Auto) 0.2 K/uL (0.0-0.7) 06/01/17 06:00 Baso # (Auto) 0.1 K/uL (0.0-0.2) 06/01/17 06:00 Total Counted Cancelled 05/26/17 04:45 Neutrophils % (Manual) 77 % (42-75) H 05/30/17 10:20 Band Neutrophils % 5 % (0-2) H 05/25/17 13:10 Lymphocytes % (Manual) 14 % (20-50) L 05/30/17 10:20 Reactive Lymphs % Cancelled 05/26/17 04:45 Monocytes % (Manual) 8 % (0-10) 05/30/17 10:20 Eosinophils % (Manual) 1 % (0-7) 05/30/17 10:20 Basophils % (Manual) Cancelled 05/26/17 04:45 Metamyelocytes % Cancelled 05/26/17 04:45 Myelocytes % Cancelled 05/26/17 04:45 Promyelocytes % Cancelled 05/26/17 04:45 Blast Cells % Cancelled 05/26/17 04:45 Plasma Cell % (Manual) Cancelled 05/26/17 04:45 Nucleated RBC % Cancelled 05/26/17 04:45 Hypersegmented Polys Present 05/25/17 13:10 Smudge Cells Cancelled 05/26/17 04:45 Toxic Granulation Cancelled 05/26/17 04:45 Dohle Bodies Cancelled 05/26/17 04:45 Martinez Rods Cancelled 05/26/17 04:45 Platelet Estimate Normal (NORMAL) 05/30/17 10:20 Plt Clumps, EDTA Cancelled 05/26/17 04:45 Large Platelets Present 05/30/17 10:20 Giant Platelets Cancelled 05/26/17 04:45 RBC Morphology Cancelled 05/26/17 04:45 Polychromasia Cancelled 05/26/17 04:45 Hypochromasia (manual) Slight 05/30/17 10:20 Poikilocytosis (manual Slight 05/25/17 13:10 Basophilic Stippling Cancelled 05/26/17 04:45 Anisocytosis (manual) Slight 05/30/17 10:20 Microcytosis (manual) Cancelled 05/26/17 04:45 Macrocytosis (manual) Cancelled 05/26/17 04:45 Spherocytes Cancelled 05/26/17 04:45 Sickle Cells Cancelled 05/26/17 04:45 Target Cells Cancelled 05/26/17 04:45 Tear Drop Cells Cancelled 05/26/17 04:45 Ovalocytes Cancelled 05/26/17 04:45 Stomatocytes Cancelled 05/26/17 04:45 Helmet Cells Cancelled 05/26/17 04:45 Piña-Wardner Bodies Cancelled 05/26/17 04:45 Michelle Cells Cancelled 05/26/17 04:45 Acanthocytes (Spur) Slight 05/25/17 13:10 Rouleaux Cancelled 05/26/17 04:45 Schistocytes Cancelled 05/26/17 04:45 PT 20.9 Seconds (9.8-13.1) H 05/26/17 04:45 INR 1.9 (0.9-1.2) H 05/26/17 04:45 APTT 26.4 Seconds (25.6-37.1) 05/25/17 13:10 pO2 46 mm/Hg (30-55) 05/25/17 12:53 VBG pH 7.52 (7.32-7.43) H 05/25/17 12:53 VBG pCO2 40 mmHg (40-60) 05/25/17 12:53 VBG HCO3 31.6 mmol/L 05/25/17 12:53 VBG Total CO2 33.9 mmol/L (22-28) H 05/25/17 12:53 VBG O2 Sat (Calc) 88.1 % (40-65) H 05/25/17 12:53 VBG Base Excess 9.0 mmol/L (0.0-2.0) H 05/25/17 12:53 VBG Potassium 4.5 mmol/L (3.6-5.2) 05/25/17 12:53 A-a O2 Difference 54.0 mm/Hg 05/25/17 12:53 Sodium 134.0 mmol/L (132-148) 05/25/17 12:53 Chloride 99.0 mmol/L (98-107) 05/25/17 12:53 Glucose 180 mg/dL (65-105) H 05/25/17 12:53 Lactate 2.7 mmol/L (0.7-2.1) H 05/25/17 12:53 FiO2 21.0 % 05/25/17 12:53 Sodium 145 mmol/l (132-148) 06/03/17 10:39 Potassium 3.5 MMOL/L (3.6-5.0) L 06/03/17 10:39 Chloride 103 mmol/L (98-107) 06/03/17 10:39 Carbon Dioxide 37 mmol/L (22-30) H 06/03/17 10:39 Anion Gap 9 (10-20) L 06/03/17 10:39 BUN 8 mg/dl (7-17) 06/03/17 10:39 Creatinine 0.3 mg/dl (0.7-1.2) L 06/03/17 10:39 Est GFR ( Amer) > 60 06/03/17 10:39 Est GFR (Non-Af Amer) > 60 06/03/17 10:39 Random Glucose 109 mg/dL (65-105) H 06/03/17 10:39 Lactic Acid 1.0 MMOL/L (0.7-2.1) 05/26/17 01:30 Calcium 8.8 mg/dL (8.4-10.2) 06/03/17 10:39 Phosphorus 2.9 mg/dl (2.5-4.5) 05/25/17 13:10 Magnesium 2.4 MG/DL (1.6-2.3) H 05/25/17 13:10 Total Bilirubin 0.8 mg/dl (0.2-1.3) 06/01/17 06:00 AST 32 U/L (14-36) 06/01/17 06:00 ALT 22 U/L (9-52) 06/01/17 06:00 Alkaline Phosphatase 91 U/L (38-126) 06/01/17 06:00 Total Protein 6.0 G/DL (6.3-8.2) L 06/01/17 06:00 Albumin 2.8 g/dL (3.5-5.0) L 06/01/17 06:00 Globulin 3.2 gm/dL (2.2-3.9) 06/01/17 06:00 Albumin/Globulin Ratio 0.9 (1.0-2.1) L 06/01/17 06:00 Venous Blood Potassium 4.5 mmol/L (3.6-5.2) 05/25/17 12:53 Lamotrigine 1.0 mcg/mL (4.0-18.0) L 05/25/17 17:56 Blood Type O POSITIVE 05/26/17 12:45 Antibody Screen Negative 05/26/17 12:45 BBK History Checked Patient has bt 05/26/17 12:45 Discharge Exam - Head Exam Head Exam: NORMAL INSPECTION Discharge Plan - Discharge Medications Prescriptions: Aztreonam 1 Gm in NS 100mL [Azactam 1 gm] 1 gm IVPB Q12 #14 ml Clindamycin 600mg/50ml NS [Cleocin in Normal Saline] 600 mg IVPB Q8 #21 bag - Follow Up Plan Condition: GUARDED Disposition: TRANSF TO SNF Instructions: Laparoscopic Cholecystectomy (DC)
--- NOTE | 2017-06-06 10:31 | PQF PNEUMO ---
This form is a permanent part of the medical record DR. JERRELL MORENO: COULD YOU PLEASE CONFIRM IF PNEUMONIA WAS RULED IN OR OUT. Clarification of your documentation is requested to better reflect the severity of illness and intensity of treatment of your patient. Indicators present [X] Documented diagnosis of pneumonia [X] X-ray findings: [] Positive Sputum cultures [] Cough w/ fever [] Abnormal lungs sounds [] Poor gag reflex [] Speech consults/swallow evaluation [] Vent dependence [] Other: [] Location in the medical record that reflects the above clinical findings: [] Treatment Provided: [] PHYSICIAN'S RESPONSE Based on your medical judgment of the clinical indicators outlined above, are you treating this patient for a known or suspected: [] Aspiration pneumonia [] Community acquired pneumonia [] Ventilator associated pneumonia [] Viral pneumonia [] Bacterial pneumonia Please specify organism: [] [] Other, please indicate [] If Unable to Determine, please check the box, sign and date. Present On Admission (POA) Indicator: [] Present at the time of admission [] Not present at the time of admission [] Clinically Undetermined In responding to this query, please exercise your independent professional judgment. The fact that a question is asked does not imply that any particular answer is desired or expected. Thank you for your clarification on this documentation. If you have any questions please call:[ ] * Thank you, * BRANDON CARTER [[phone] floral arranger BAM
--- NOTE | 2017-06-06 10:34 | PQF CHF ---
This form is a permanent part of the medical record DR. JERRELL MORENO: PLEASE CLARIFY THE TYPE OF CHF IF KNOWN. Clarification of your documentation is requested to better reflect the severity of illness and intensity of treatment of your patient. Indicators present [X] Diagnosis of CHF and/or history of CHF [] BNP > 200 [] Imaging Finding of Pulmonary Edema /Pleural Effusions [] Fluid/Volume Overload [] Pitting edema [] Ejection Fraction < 40% (Indicative of Systolic Heart Failure) [] Ejection Fraction > 40% (Indicative of Diastolic Heart Failure) [] Dyspnea / Orthopenea / Paroxysmal Nocturnal Dyspnea [] Other: Location in the medical record that reflects the above clinical findings: [] Treatment Provided: [] PHYSICIAN'S RESPONSE Based on your medical judgment of the clinical indicators outlined above, are you treating this patient for a known or suspected: [] Acute CHF [] Systolic [] Diastolic [] Combined [] Chronic CHF [] Systolic [] Diastolic [] Combined [] Acute on Chronic CHF []Systolic [] Diastolic [] Combined [] CHF due hypertension [] Acute systolic []Chronic systolic [] Acute/ chronic systolic [] Other, please indicate: [] [] If Unable to Determine, please check the box, sign and date. Present On Admission (POA) Indicator: [] Present at the time of admission [] Not present at the time of admission [] Clinically Undetermined In responding to this query, please exercise your independent professional judgment. The fact that a question is asked does not imply that any particular answer is desired or expected. Thank you for your clarification on this documentation. If you have any questions please call:[ ] * Thank you, * BRANDON CARTER [ [phone] hand scraper BAM
== END 2017-06-03 15:55 | DRG 872 ==
LOC: H.ER 12:06 → H.ERHOLD 17:56 → H.ICU/CCU 05-26 00:29 → H.MEDSURG1 05-27 16:30
PROVIDERS: ADMIT Internal Medicine Pulmonary Disease; ATTEND Internal Medicine Pulmonary Disease
PROC: 0F9430Z Drainage of Gallbladder with Drainage Device, Percutaneous Approach (ICD-10-PCS; principal; 2017-05-26 13:45)
PROC: 02HV33Z Insertion of Infusion Device into Superior Vena Cava, Percutaneous Approach (ICD-10-PCS; 2017-06-01)
PROC: B518ZZA Fluoroscopy of Superior Vena Cava, Guidance (ICD-10-PCS; 2017-06-01)
PROC: B548ZZA Ultrasonography of Superior Vena Cava, Guidance (ICD-10-PCS; 2017-06-01)
DX: A41.9 Sepsis, unspecified organism (principal); K81.0 Acute cholecystitis; R18.8 Other ascites; D68.9 Coagulation defect, unspecified; I11.0 Hypertensive heart disease with heart failure; I50.9 Heart failure, unspecified; J44.0 Chronic obstructive pulmonary disease with (acute) lower respiratory infection; J98.11 Atelectasis; E86.0 Dehydration; D64.9 Anemia, unspecified; E78.00 Pure hypercholesterolemia, unspecified; E78.5 Hyperlipidemia, unspecified; F03.90 Unspecified dementia, unspecified severity, without behavioral disturbance, psychotic disturbance, mood disturbance, and anxiety; F32.9 Major depressive disorder, single episode, unspecified; F41.9 Anxiety disorder, unspecified; G89.29 Other chronic pain; M54.9 Dorsalgia, unspecified; K57.90 Diverticulosis of intestine, part unspecified, without perforation or abscess without bleeding; M19.90 Unspecified osteoarthritis, unspecified site; M81.0 Age-related osteoporosis without current pathological fracture; R56.9 Unspecified convulsions; R65.20 Severe sepsis without septic shock; Z79.82 Long term (current) use of aspirin; Z79.899 Other long term (current) drug therapy; Z95.1 Presence of aortocoronary bypass graft; F45.9 Somatoform disorder, unspecified; K59.00 Constipation, unspecified; R32 Unspecified urinary incontinence; M79.672 Pain in left foot; R00.0 Tachycardia, unspecified

== ENCOUNTER 2017-07-16 15:35 | Inpatient (IN) | payer MEDICARE, MEDICAID ==
--- NOTE | 2017-07-16 16:09 | ED PDOC ---
HPI: General Adult Time Seen by Provider: 07/16/17 15:54 Chief Complaint (Nursing): Fever Chief Complaint (Provider): fever, altered mental status History/Exam Limitations: clinical condition, language barrier Onset/Duration Of Symptoms: Unknown Have you had recent travel within the past 21 days to any of the following countries: [place], [place], [place] or [place]?: No Additional History Per: Residential Additional Complaint(s): 82yo female, sent to ED from [facility], for evaluation of fever and altered mental status. Patient is not responding to provider questions so a full HPI and ROS is unavailable.Pt was admitted one month ago for cholecystitis and sepsis.Was treated at that time with IR directed Cholecystostomy tube.Plan was to eventually bring pt back for cholecystectomy.Pt is now in a rehab facility,was sent in for evaluation of lethargy and fever.Pt is unable to offer any hx but seems to be having abdominal pain Past Medical History Reviewed: Historical Data, Nursing Documentation, Vital Signs Vital Signs: Last Vital Signs Temp 97.6 F 07/17/17 08:00 Pulse 80 07/17/17 08:00 Resp 18 07/17/17 08:00 BP 111/52 L 07/17/17 08:00 Pulse Ox 90 L 07/17/17 08:00 - Medical History PMH: Anemia, Anxiety, Arthritis (poly), Asthma, Back Problems, CHF, COPD, Dementia, Depression, Fractures (L wrist , comp Fx T Spine), HTN, Hypercholesterolemia, Osteoporosis, Seizures Denies: HIV, Chronic Kidney Disease - Surgical History Surgical History: CABG - Family History Family History: States: Unknown Family Hx, CAD - Immunization History Hx Tetanus Toxoid Vaccination: No - Home Medications Home Medications: Ambulatory Orders Medication Instructions Recorded Acetaminophen [Tylenol 325mg tab] 650 mg PO Q4H PRN 05/06/17 Atorvastatin [Lipitor] 40 mg PO HS 05/06/17 Bisacodyl [Fast Relief Laxative] 1 supp VA DAILY PRN 05/06/17 Cyanocobalamin [Vitamin B12 1000 1,000 mcg IM Q30D 05/06/17 mcg/ml Inj] Ergocalciferol (Vitamin D2) 50,000 unit PO WE 05/06/17 [Vitamin D2] Fluticasone/Salmeterol 500/50 1 puff PO Q12H 05/06/17 [Advair Diskus 500/50] Gabapentin [Neurontin] 100 mg PO TID 05/06/17 Meclizine [Antivert] 12.5 mg PO TID 05/06/17 lamoTRIgine [Lamictal] 25 mg PO TID 05/06/17 Calcium/Vitamin D [Oyster Shell 1 tab PO DAILY tab 05/23/17 Calcium/Vitamin D 500 mg-200 IU] Acetaminophen [Tylenol 650 mg Supp] 650 mg VA Q4H PRN 05/25/17 Aspirin [Ecotrin] 81 mg PO DAILY 05/25/17 DULoxetine [Cymbalta] 20 mg PO DAILY 05/25/17 Lactulose [Generlac] 20 gm PO BID 05/25/17 Magnesium Hydroxide [Milk Of 30 ml PO HS PRN 05/25/17 Magnesia] Nitroglycerin 0.2 mg/hr [Nitro-Dur 1 patch TD DAILY 05/25/17 0.2 mg/hr Patch] Oxybutynin [Ditropan Tab] 5 mg PO TID 05/25/17 Pantoprazole Sodium [Protonix] 40 mg PO DAILY 05/25/17 fentaNYL 12 mcg/hr [Duragesic 1 patch TD Q72H 05/25/17 Patch 12 mcg/hr] amLODIPine [Norvasc] 5 mg PO DAILY tab 06/03/17 - Allergies Allergies/Adverse Reactions: Allergies Allergy/AdvReac Type Severity Reaction Status Date / Time Penicillins Allergy RASH Verified 05/25/17 12:15 Review of Systems Review Of Systems: ROS cannot be obtained secondary to pt's inabilty to answer questions. Constitutional: Positive for: Fever Cardiovascular: Positive for: Other (tachycardia) Physical Exam - Reviewed Nursing Documentation Reviewed: Yes Vital Signs Reviewed: Yes - Physical Exam Appears: Positive for: In Acute Distress Head Exam: Positive for: NORMAL INSPECTION Skin: Positive for: Diaphoresis, Pallor (also with decreased skin turgor) ENT: Positive for: Normal ENT Inspection Neck: Positive for: Normal Cardiovascular/Chest: Positive for: Tachycardia Respiratory: Positive for: Rales (right lung base), Other (tachypneic) Pulses-Dorsalis Pedis (L): 2+ Pulses-Dorsalis Pedis (R): 2+ Gastrointestinal/Abdominal: Positive for: Tenderness (diffusely tender abdomen , diffuse guarding,unable to elicit rebound), Guarding Back: Positive for: Normal Inspection Neurologic/Psych: Positive for: Alert - Laboratory Results Result Diagrams: 07/17/17 05:37 07/17/17 05:37 Interpretation Of Abn Labs: Pt with evidence of sepsis with likeliest source being her gall bladder.Will initiate sepsis protocol,start abiotics,obtain surgical consult - ECG ECG: Positive for: Interpreted By Me, Viewed By Me ECG Rhythm: Positive for: Sinus Tachycardia Interpretation Of ECG: Q's in 3 and AVF, 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 Provider Attestation: All medical record entries made by the Scribe were at my direction and personally dictated by me. I have reviewed the chart and agree that the record accurately reflects my personal performance of the history, physical exam, medical decision making, and the department course for this patient. I have also personally directed, reviewed, and agree with the discharge instructions and disposition. Pt with cholecystitis and evidence of sepsis Disposition - Clinical Impression Clinical Impression: Sepsis, Cholecystitis - Patient ED Disposition Is Patient to be Admitted: Yes Doctor Will See Patient In The: ED - Disposition Disposition Time: 18:00 Condition: SERIOUS - Admit Certification Admit to Inpatient:: care of Dr Lara.Also spoke with surgical attending and the surgical product sales consultant
[2017-07-16] MEDS ORDERED: Piperacillin/Tazobact 3.375 GM in Sodium Chloride 0.9% 100 ML IVPB STA (16:15)
[2017-07-16 16:37] LABS: VENOUS BLOOD GAS BASE EXCESS 5.4 mmol/L (0.0-2.0); VENOUS BLOOD GAS PCO2 38 mmHg (40-60); VENOUS BLOOD GAS PO2 54 mm/Hg (30-55); VENOUS BLOOD PH 7.49 (7.32-7.43)
[2017-07-16] MEDS ORDERED: Piperacillin/Tazobact 3.375 gm Inj IVPB ONE (16:41)
[2017-07-16 16:52] LABS: BASO % 0.3 % (0.0-2.0); EOS % 0.2 % (0.0-4.0); HEMOGLOBIN 13.4 g/dL (12.0-16.0); LYMPH # 0.1 K/uL (1.0-4.3); LYMPH % 2.3 % (20.0-40.0); MEAN CELL VOLUME 86.3 fl (81.0-99.0); MEAN CORPUSCULAR HEMOGLOBIN 28.7 pg (27.0-31.0); MEAN CORPUSCULAR HGB CONC 33.2 g/dL (33.0-37.0); MEAN PLATELET VOLUME 9.6 fl (7.2-11.7); MONO # 0.2 K/uL (0.0-0.8); MONO % 3.7 % (0.0-10.0); NEUT # 4.2 K/uL (1.8-7.0); NEUT % 93.5 % (50.0-75.0); NRBC % 0.1 % (0.0-0.0); PLATELET COUNT 116 K/uL (130-400); RBC 4.69 Mil/uL (3.80-5.20); WHITE BLOOD COUNT 4.5 K/uL (4.8-10.8)
[2017-07-16 16:58] LABS: ALB/GLOB RATIO 1.1 (1.0-2.1); ALBUMIN 3.7 g/dL (3.5-5.0); ALT/SGPT 787 U/L (9-52); BLOOD UREA NITROGEN 8 mg/dl (7-17); CALCIUM 9.4 mg/dL (8.4-10.2); GFR AFRICAN-AMERICAN > 60; GFR NON-AFRICAN AMERICAN > 60
--- NOTE | 2017-07-16 17:04 | RAD ---
HISTORY: Sepsis Patient COMPARISON: 05/25/2017 FINDINGS: LUNGS: No new focal infiltrate. Mild improvement in aeration at the lung bases from prior study. PLEURA: No significant pleural effusion identified, no pneumothorax apparent. CARDIOVASCULAR: Heart is enlarged. Aorta is uncoiled. OSSEOUS STRUCTURES: No significant abnormalities. VISUALIZED UPPER ABDOMEN: Normal. OTHER FINDINGS: None. IMPRESSION: Cardiomegaly. No focal infiltrate. No CHF.
[2017-07-16 17:07] LABS: AST/SGOT 1437 U/L (14-36)
[2017-07-16 17:34] LABS: SQUAMOUS EPITHIAL 2 /hpf (0-5); URINE BACTERIA RARE (<OCC); URINE BILIRUBIN SMALL (NEGATIVE); URINE BLOOD NEGATIVE (NEGATIVE); URINE CLARITY CLOUDY (Clear); URINE COLOR AMBER (YELLOW); URINE GLUCOSE (UA) NEG (Normal); URINE HYALINE CAST 0-2 /hpf (0-2); URINE LEUKOCYTE ESTERASE NEG Leu/uL (Negative); URINE PROTEIN 100 mg/dL (NEGATIVE)
[2017-07-16] MEDS ORDERED: Morphine 4 MG/ML VIAL IVP ONE (17:59)
[2017-07-16] MEDS ORDERED: Morphine 4 MG/ML VIAL ONE (18:01)
[2017-07-16 18:25] LABS: INR 1.2 (0.9-1.2); PARTIAL THROMBOPLASTIN TIME 28.6 Seconds (25.6-37.1)
[2017-07-16] MEDS ORDERED: Iohexol 300 100 ML IJ ONE (18:25)
[2017-07-16] MEDS ORDERED: Sodium Chloride 0.9% 100 ML ONE (18:26)
[2017-07-16 18:51] LABS: BANDS 1 % (0-2); EOSINOPHIL 1 % (0-7); LYMPHOCYTE 5 % (20-50); MONOCYTE 3 % (0-10); NEUTROPHIL 90 % (42-75); TOTAL CELLS COUNTED 100
[2017-07-16 18:52] LABS: PLATELET ESTIMATE SLIGHTLY DECREASED (NORMAL)
--- NOTE | 2017-07-16 20:06 | CP.PCM.CON ---
History of Present Illness - History of Present Illness History of Present Illness: PCP: Sj Lara MD Reason for consult: Critical care management Chief Complaint: Fever The patient was seen and examined in the ED HPI: The hx was obtained from the medical records as the patient has severe dementia. She is an 82 years old female From the [facility] , with hx of Seizure, HTN, dementia, last admitted on 05/25/17 for abdominal pain with Dx of acute Cholecystitis and treated with Cholecystostomy tube placment done. She is sent to the ED because of fever and Altered Mental status today. In the ED she is awake, has unintelligible speech, but appears to understand spoken word, indicating that she has abdominal pain, more at the LLQ and RUQ. Her Temperature was 103.0F; HR 136/min and RR 25/min. PMH: Anxiety and Depression; Arthritis; Asthma with COPD; Dementia; Back pain with multiple compressions of the thoracic spine; Left wrist, rib fractures, left Femur fracture; HTN; HLD; Seizure; Osteoporosis PSH: ORIF Left Femur; L3 Kyphoplasty, CABG, Percutaneous Cholecystostomy tube placement 05/26/17 SH: No illegal drug use; No ETOH use; Never smoked; Live at the [facility] FH: No known family Hx Allergies: PCN Medication: Reviewed Review of Systems - Review of Systems Systems not reviewed;Unavailable: Dementia, Altered Mental Status Review of Systems: Review of system is limited because of Dementia. - Constitutional Constitutional: Fever Past Patient History - Infectious Disease Hx of Infectious Diseases: None - Past Medical History & Family History Past Medical History?: Yes - Past Social History Smoking Status: Never Smoked Chewing Tobacco Use: No Cigar Use: No Alcohol: None Home Situation {Lives}: [facility] - CARDIAC Hx Congestive Heart Failure: Yes Hx Hypercholesterolemia: Yes Hx Hypertension: Yes - PULMONARY Hx Asthma: Yes Hx Chronic Obstructive Pulmonary Disease (COPD): Yes - NEUROLOGICAL Hx Dementia: Yes Hx Seizures: Yes - HEENT Hx HEENT Problems: No - RENAL Hx Chronic Kidney Disease: No - ENDOCRINE/METABOLIC Hx Endocrine Disorders: No - HEMATOLOGICAL/ONCOLOGICAL Hx Anemia: Yes Hx Human Immunodeficiency Virus (HIV): No - INTEGUMENTARY Hx Dermatological Problems: No - MUSCULOSKELETAL/RHEUMATOLOGICAL Hx Arthritis: Yes (poly) Hx Fractures: Yes (L wrist , comp Fx T Spine) Hx Osteoporosis: Yes - GASTROINTESTINAL Hx Gastrointestinal Disorders: Yes Hx Constipation: Yes - GENITOURINARY/GYNECOLOGICAL Hx Genitourinary Disorders: Yes Hx Incontinence: Yes - PSYCHIATRIC Hx Anxiety: Yes Hx Depression: Yes Hx Substance Use: No - SURGICAL HISTORY Hx Coronary Artery Bypass Graft: Yes Hx Open Reduction Internal Fixation: Yes (Left Femur) Other/Comment: L3 Kyphoplasty. Percutaneous Cholecystomy tube placement - ANESTHESIA Hx Anesthesia: Yes Hx Anesthesia Reactions: No Hx Malignant Hyperthermia: No Meds Allergies/Adverse Reactions: Allergies Allergy/AdvReac Type Severity Reaction Status Date / Time Penicillins Allergy RASH Verified 05/25/17 12:15 - Medications Medications: Current Medications Acetaminophen (Tylenol 325 Mg Supp) 975 mg MN ONCE PRN PRN Reason: Fever >100.4 F Last Admin: 07/16/17 16:40 Dose: 975 mg Physical Exam - Constitutional Appears: No Acute Distress - Head Exam Head Exam: ATRAUMATIC, NORMAL INSPECTION, NORMOCEPHALIC - Eye Exam Eye Exam: EOMI, Normal appearance Pupil Exam: NORMAL ACCOMODATION, PERRL - ENT Exam ENT Exam: Mucous Membranes Moist, Normal Exam, Normal External Ear Exam - Neck Exam Neck exam: Positive for: Full Rom, Normal Inspection. Negative for: Tenderness - Respiratory Exam Respiratory Exam: Clear to Auscultation Bilateral. absent: Rales, Rhonchi, Wheezes - Cardiovascular Exam Cardiovascular Exam: Tachycardia, REGULAR RHYTHM, +S1, +S2. absent: Gallop - GI/Abdominal Exam Additional comments: Flat, soft, tender at the LLQ and RUQ on palpation, no guarding, no rebound tenderness, Decreased bowel sounds - Rectal Exam Rectal Exam: Deferred - Extremities Exam Extremities exam: Positive for: normal inspection Additional comments: Pain to the ankles on palpation or movement - Back Exam Back exam: NORMAL INSPECTION. absent: CVA tenderness (L), CVA tenderness (R) - Neurological Exam Neurological exam: Alert, CN II-XII Intact, Reflexes Normal Additional comments: Unintelligible sounds. non focal neurological findings - Psychiatric Exam Psychiatric exam: Normal Affect, Normal Mood - Skin Skin Exam: Dry, Intact, Normal Color, Warm Results - Vital Signs Recent Vital Signs: Last Vital Signs Temp 99.8 F H 07/16/17 19:47 Pulse 118 H 07/16/17 19:47 Resp 20 07/16/17 19:47 BP 106/63 07/16/17 19:47 Pulse Ox 99 07/16/17 19:47 - Labs Result Diagrams: 07/16/17 16:25 07/16/17 16:25 Labs: Laboratory Results - last 24 hr 07/16/17 07/16/17 07/16/17 16:20 16:25 16:25 WBC 4.5 L RBC 4.69 Hgb 13.4 D Hct 40.4 MCV 86.3 MCH 28.7 MCHC 33.2 RDW 16.0 H Plt Count 116 L D MPV 9.6 Neut % (Auto) 93.5 H Lymph % (Auto) 2.3 L Davis % (Auto) 3.7 Eos % (Auto) 0.2 Baso % (Auto) 0.3 Neut # (Auto) 4.2 Lymph # (Auto) 0.1 L Davis # (Auto) 0.2 Eos # (Auto) 0.0 Baso # (Auto) 0.0 Neutrophils % (Manual) 90 H Band Neutrophils % 1 Lymphocytes % (Manual) 5 L Monocytes % (Manual) 3 Eosinophils % (Manual) 1 Platelet Estimate Slightly decreased L RBC Morphology Normal PT INR APTT pO2 VBG pH VBG pCO2 VBG HCO3 VBG Total CO2 VBG O2 Sat (Calc) VBG Base Excess VBG Potassium Glucose Lactate FiO2 Sodium 141 Potassium 3.2 L Chloride 98 Carbon Dioxide 28 Anion Gap 18 BUN 8 Creatinine 0.3 L Est GFR ( Amer) > 60 Est GFR (Non-Af Amer) > 60 POC Glucose (mg/dL) 144 H Random Glucose 159 H Lactic Acid Calcium 9.4 Phosphorus 2.2 L Magnesium 1.8 Total Bilirubin 2.2 H AST 1437 H ALT 787 H D Alkaline Phosphatase 334 H D Troponin I < 0.0120 Total Protein 7.2 Albumin 3.7 Globulin 3.5 Albumin/Globulin Ratio 1.1 Venous Blood Potassium Urine Color Urine Clarity Urine pH Ur Specific [place] Urine Protein Urine Glucose (UA) Urine Ketones Urine Blood Urine Nitrate Urine Bilirubin Urine Urobilinogen Ur Leukocyte Esterase Urine RBC (Auto) Urine Microscopic WBC Ur Squamous Epith Cells Urine Bacteria Hyaline Casts 07/16/17 07/16/17 07/16/17 16:25 16:25 16:33 WBC RBC Hgb Hct MCV MCH MCHC RDW Plt Count MPV Neut % (Auto) Lymph % (Auto) Davis % (Auto) Eos % (Auto) Baso % (Auto) Neut # (Auto) Lymph # (Auto) Davis # (Auto) Eos # (Auto) Baso # (Auto) Neutrophils % (Manual) Band Neutrophils % Lymphocytes % (Manual) Monocytes % (Manual) Eosinophils % (Manual) Platelet Estimate RBC Morphology PT 13.0 INR 1.2 APTT 28.6 pO2 54 VBG pH 7.49 H VBG pCO2 38 L VBG HCO3 28.9 VBG Total CO2 30.2 H VBG O2 Sat (Calc) 95.4 H VBG Base Excess 5.4 H VBG Potassium 3.2 L Glucose 156 H Lactate 2.5 H FiO2 21.0 Sodium 137.0 Potassium Chloride 103.0 Carbon Dioxide Anion Gap BUN Creatinine Est GFR ( Amer) Est GFR (Non-Af Amer) POC Glucose (mg/dL) Random Glucose Lactic Acid 2.4 H Calcium Phosphorus Magnesium Total Bilirubin AST ALT Alkaline Phosphatase Troponin I Total Protein Albumin Globulin Albumin/Globulin Ratio Venous Blood Potassium 3.2 L Urine Color Urine Clarity Urine pH Ur Specific [place] Urine Protein Urine Glucose (UA) Urine Ketones Urine Blood Urine Nitrate Urine Bilirubin Urine Urobilinogen Ur Leukocyte Esterase Urine RBC (Auto) Urine Microscopic WBC Ur Squamous Epith Cells Urine Bacteria Hyaline Casts 07/16/17 16:50 WBC RBC Hgb Hct MCV MCH MCHC RDW Plt Count MPV Neut % (Auto) Lymph % (Auto) Davis % (Auto) Eos % (Auto) Baso % (Auto) Neut # (Auto) Lymph # (Auto) Davis # (Auto) Eos # (Auto) Baso # (Auto) Neutrophils % (Manual) Band Neutrophils % Lymphocytes % (Manual) Monocytes % (Manual) Eosinophils % (Manual) Platelet Estimate RBC Morphology PT INR APTT pO2 VBG pH VBG pCO2 VBG HCO3 VBG Total CO2 VBG O2 Sat (Calc) VBG Base Excess VBG Potassium Glucose Lactate FiO2 Sodium Potassium Chloride Carbon Dioxide Anion Gap BUN Creatinine Est GFR ( Amer) Est GFR (Non-Af Amer) POC Glucose (mg/dL) Random Glucose Lactic Acid Calcium Phosphorus Magnesium Total Bilirubin AST ALT Alkaline Phosphatase Troponin I Total Protein Albumin Globulin Albumin/Globulin Ratio Venous Blood Potassium Urine Color Mai Urine Clarity Cloudy Urine pH 6.0 Ur Specific [place] 1.024 Urine Protein 100 Urine Glucose (UA) Neg Urine Ketones Negative Urine Blood Negative Urine Nitrate Negative Urine Bilirubin Small Urine Urobilinogen 4.0 H Ur Leukocyte Esterase Neg Urine RBC (Auto) 4 H Urine Microscopic WBC 4 Ur Squamous Epith Cells 2 Urine Bacteria Rare Hyaline Casts 0-2 - Imaging and Cardiology US RUQ Status: Report reviewed by me Additional comment: EXAM: US Abdomen Limited, Right Upper Quadrant EXAM DATE/TIME: Examination ordered 07/16/2017 6:30 PM. Image number total count reviewed 40 FINDINGS: LIMITATIONS: Limited evaluation. LIVER: Liver is echogenic suggestive of fatty infiltration. No intrahepatic bile duct dilation. GALLBLADDER: Gallstone/sludge or possibly polyp in gallbladder. No wall thickening or pericholecystic fluid. COMMON BILE DUCT: Unremarkable as visualized. PANCREAS: Not well visualized. RIGHT KIDNEY: Unremarkable. No stones. No hydronephrosis. FREE FLUID: Trace free fluid. IMPRESSION: 1. Liver is echogenic suggestive of fatty infiltration. 2. Trace free fluid. 3. Gallstone/sludge or possibly polyp in gallbladder. No wall thickening or pericholecystic fluid Chest x-ray Status: Image reviewed by me, Report reviewed by me Additional comment: Enlarged cardiac silhouette Mild vascular congestion No infiltrate CT scan - abdomen Status: Report reviewed by me Additional comment: EXAM: CT Abdomen and Pelvis With Intravenous Contrast EXAM DATE/TIME: 07/16/2017 5:27 PM FINDINGS: LIMITATIONS: Streak artifact from the patient's arms and from metallic hardware in the left hip. Mild motion artifact. LOWER THORAX: No infiltrate seen in the lung bases. ABDOMEN: LIVER: 1 cm low density liver lesion, most likely a cyst. GALLBLADDER AND BILE DUCTS: Diffusely thickened and enhancing gallbladder wall. Mild gallbladder dilatation. No definite pericholecystic fluid, pericholecystic inflammation, or radiopaque gallstones, allowing for motion artifact. No evidence of significant biliary ductal dilatation. PANCREAS: No CT evidence of acute pancreatitis. SPLEEN: No acute abnormality of the spleen identified. ADRENALS: No acute abnormality of the adrenal glands identified. KIDNEYS AND URETERS: No acute abnormality of the kidneys identified. No evidence of significant hydrouereteronephrosis. STOMACH AND BOWEL: Rectum is stool-filled and is mildly dilated. Its wall is circumferentially thickened distally. There is mild infiltration of the perirectal fat. There is a small amount of nearby free fluid, in the presacral region. Findings are suspicious for stercoral proctitis. Right hemicolon is stool-filled, and is mildly dilated. There is fecalization and mild dilatation of multiple distal small bowel loops, in the right pelvis. No transition point is seen in the colon or small bowel. No evidence of diffuse small bowel or colonic dilatation. Findings are similar to prior CT, and are most likely secondary to an ileus. Colonic diverticulosis, with no evidence of acute diverticulitis. APPENDIX: Normal appendix is not seen, however, there are no significant inflammatory changes visualized in the expected location of the appendix to suggest appendicitis. Recommend clinical correlation. PELVIS: BLADDER: No acute abnormality of the bladder identified. REPRODUCTIVE:No acute abnormality of the reproductive organs is seen. No acute abnormality of the uterus identified. No evidence of large adnexal masses. ABDOMEN and PELVIS: INTRAPERITONEAL SPACE: Small amount of free fluid in the right abdomen. This abuts the right lobe of the liver. No evidence of significant free air. BONES/JOINTS: Metallic hardware in the left hip, transfixing a healing left femoral neck fracture. Vertebroplasty material noted within L3. Multiple chronic vertebral compression fractures, with the degree of associated vertebral height loss greatest at T12 and T10. Marked osteopenia. SOFT TISSUES: Diffuse subcutaneous fat stranding in the left hip and gluteal soft tissues laterally, of uncertain etiology, but could represent either residual post operative change versus acute cellulitis. No evidence of soft tissue abscess or gas. VASCULATURE: No evidence of abdominal aortic aneurysm. No evidence of periaortic hemorrhage. LYMPH NODES: No evidence of diffuse lymphadenopathy. IMPRESSION: - Diffusely thickened and enhancing gallbladder wall. This could be due to acute liver disease, such as hepatitis, however, possible gallstones were seen on a recent ultrasound , and early acute cholecystitis is not excluded. Recommend clinical correlation. - Small amount of perihepatic free fluid. - Findings suspicious for stercoral proctitis. - Subcutaneous fat stranding in the left hip and gluteal soft tissues, of uncertain etiology, but could represent residual post operative change versus acute cellulitis. Recommend clinical correlation. - Otherwise, no evidence of significant acute process. - See above for remaining findings. Assessment & Plan - Assessment and Plan (Free Text) Assessment: #. Acute Cholecystitis #. Stercoral Proctitis #. Severe Sepsis #. Hypokalemia #. Hx of Seizure #. Hx of Dementia Plan: 82 years old female From the [facility], with hx of Acute Cholecystitis treated with cholecystostomy tube placement, is sent to the ED because of fever and Altered Mental status today. In the ED she is awake, has unintelligible speech, but appears to understand spoken word, indicating that she has abdominal pain, more at the LLQ and RUQ. Her Temperature was 103.0F; HR 136/min and RR 25/min. #. Acute Cholecystitis as per CT abdomen/Pelvis - Consult Dr Zarate Surgery - NPO - Astreonam - Cipro - Flagyl - Pain management - IV fluids #. Stercoral Proctitis as per CT Pelvis - Consult Dr Hackett GI - Antibiotics as mentioned above #. Severe Sepsis - Consult Dr Roper ID - follow Blood and urine cultures - Cipro/Aztreonam/flagyl #. Hypokalemia - Replace Potassium in IV Fluids - Follow electrolytes #. Hx of Seizure - lamotragine #. Hx of Dementia #. Asthma/COPD - Duoneb PRN #. DVT Prophylaxis SCD Critical care Time: 45mins Donnell Rosenthal MD - Date & Time Date: 07/16/17 Time: 20:06
[2017-07-16 20:17] LABS: VENOUS BLOOD GAS BASE EXCESS 4.8 mmol/L (0.0-2.0); VENOUS BLOOD GAS PCO2 45 mmHg (40-60); VENOUS BLOOD GAS PO2 53 mm/Hg (30-55); VENOUS BLOOD PH 7.43 (7.32-7.43)
--- NOTE | 2017-07-16 20:26 | CT ---
EXAM: CT Abdomen and Pelvis With Intravenous Contrast EXAM DATE/TIME: 07/16/2017 5:27 PM CLINICAL HISTORY: 82 years old, female; Pain; Abdominal pain; Generalized; Prior surgery; Surgery date: 6+ months; Surgery type: Lt hip SX. Elevated lft's. Anemia. HTN asthma copd; Additional info: Elevated lfts TECHNIQUE: Axial computed tomography images of the abdomen and pelvis with intravenous contrast. All CT scans at this facility use one or more dose reduction techniques, viz.: automated exposure control; ma/kV adjustment per patient size (including targeted exams where dose is matched to indication; i.e. head); or iterative reconstruction technique. Coronal and sagittal reformatted images were created and reviewed. CONTRAST: 98 mL of OMNIPAQUE administered intravenously. COMPARISON: Recent right upper quadrant ultrasound. Prior CT abdomen and pelvis of 2017-05-25. FINDINGS: LIMITATIONS: Streak artifact from the patient's arms and from metallic hardware in the left hip. Mild motion artifact. LOWER THORAX: No infiltrate seen in the lung bases. ABDOMEN: LIVER: 1 cm low density liver lesion, most likely a cyst. GALLBLADDER AND BILE DUCTS: Diffusely thickened and enhancing gallbladder wall. Mild gallbladder dilatation. No definite pericholecystic fluid, pericholecystic inflammation, or radiopaque gallstones, allowing for motion artifact. No evidence of significant biliary ductal dilatation. PANCREAS: No CT evidence of acute pancreatitis. SPLEEN: No acute abnormality of the spleen identified. ADRENALS: No acute abnormality of the adrenal glands identified. KIDNEYS AND URETERS: No acute abnormality of the kidneys identified. No evidence of significant hydrouereteronephrosis. STOMACH AND BOWEL: Rectum is stool-filled and is mildly dilated. Its wall is circumferentially thickened distally. There is mild infiltration of the perirectal fat. There is a small amount of nearby free fluid, in the presacral region. Findings are suspicious for stercoral proctitis. Right hemicolon is stool-filled, and is mildly dilated. There is fecalization and mild dilatation of multiple distal small bowel loops, in the right pelvis. No transition point is seen in the colon or small bowel. No evidence of diffuse small bowel or colonic dilatation. Findings are similar to prior CT, and are most likely secondary to an ileus. Colonic diverticulosis, with no evidence of acute diverticulitis. APPENDIX: Normal appendix is not seen, however, there are no significant inflammatory changes visualized in the expected location of the appendix to suggest appendicitis. Recommend clinical correlation. PELVIS: BLADDER: No acute abnormality of the bladder identified. REPRODUCTIVE:No acute abnormality of the reproductive organs is seen. No acute abnormality of the uterus identified. No evidence of large adnexal masses. ABDOMEN and PELVIS: INTRAPERITONEAL SPACE: Small amount of free fluid in the right abdomen. This abuts the right lobe of the liver. No evidence of significant free air. BONES/JOINTS: Metallic hardware in the left hip, transfixing a healing left femoral neck fracture. Vertebroplasty material noted within L3. Multiple chronic vertebral compression fractures, with the degree of associated vertebral height loss greatest at T12 and T10. Marked osteopenia. SOFT TISSUES: Diffuse subcutaneous fat stranding in the left hip and gluteal soft tissues laterally, of uncertain etiology, but could represent either residual post operative change versus acute cellulitis. No evidence of soft tissue abscess or gas. VASCULATURE: No evidence of abdominal aortic aneurysm. No evidence of periaortic hemorrhage. LYMPH NODES: No evidence of diffuse lymphadenopathy. IMPRESSION: - Diffusely thickened and enhancing gallbladder wall. This could be due to acute liver disease, such as hepatitis, however, possible gallstones were seen on a recent ultrasound, and early acute cholecystitis is not excluded. Recommend clinical correlation. - Small amount of perihepatic free fluid. - Findings suspicious for stercoral proctitis. - Subcutaneous fat stranding in the left hip and gluteal soft tissues, of uncertain etiology, but could represent residual post operative change versus acute cellulitis. Recommend clinical correlation. - Otherwise, no evidence of significant acute process. - See above for remaining findings.
--- NOTE | 2017-07-16 20:40 | CP.PCM.CON ---
<Timur Durbin - Last Filed: 07/16/17 20:36> History of Present Illness - History of Present Illness History of Present Illness: General Surgery Consult Note For Dr. Zarate This 82F with a PMH of HTN, HLD, Seizures, Dementia, Depression, COPD, s/p left hip ORIF came to the ED for abdominal pain. The history was obtained from ED attending and prior notes. She was previously admitted with cholecystitis that was treated with a cholecystostomy tube. The patient is currently AAOX0 she does however endorse generalized abdominal pain. In ED pt had a ct which was significant for thickened GB wal and perihepatic fluid. PMH: HTN, HLD, Seizures, Dementia, Depression, COPD, multiple compressions of the thoracic spine, rib fractures, left Femur fracture, Osteoporosis Meds: as per EMR Allergy: PCN PSH: ORIF Left Femur, L3 Kyphoplasty FH: unknown Social: Liv at the [facility] Review of Systems - Review of Systems Systems not reviewed;Unavailable: Altered Mental Status Past Patient History - Infectious Disease Hx of Infectious Diseases: None - Past Medical History & Family History Past Medical History?: Yes - Past Social History Smoking Status: Never Smoked - CARDIAC Hx Congestive Heart Failure: Yes Hx Hypercholesterolemia: Yes Hx Hypertension: Yes - PULMONARY Hx Asthma: Yes Hx Chronic Obstructive Pulmonary Disease (COPD): Yes - NEUROLOGICAL Hx Dementia: Yes Hx Seizures: Yes - HEENT Hx HEENT Problems: No - RENAL Hx Chronic Kidney Disease: No - ENDOCRINE/METABOLIC Hx Endocrine Disorders: No - HEMATOLOGICAL/ONCOLOGICAL Hx Anemia: Yes Hx Human Immunodeficiency Virus (HIV): No - INTEGUMENTARY Hx Dermatological Problems: No - MUSCULOSKELETAL/RHEUMATOLOGICAL Hx Arthritis: Yes (poly) Hx Fractures: Yes (L wrist , comp Fx T Spine) Hx Osteoporosis: Yes - GASTROINTESTINAL Hx Gastrointestinal Disorders: Yes Hx Constipation: Yes - GENITOURINARY/GYNECOLOGICAL Hx Genitourinary Disorders: Yes Hx Incontinence: Yes - PSYCHIATRIC Hx Anxiety: Yes Hx Depression: Yes Hx Substance Use: No - SURGICAL HISTORY Hx Coronary Artery Bypass Graft: Yes - ANESTHESIA Hx Anesthesia: Yes Hx Anesthesia Reactions: No Hx Malignant Hyperthermia: No Meds Allergies/Adverse Reactions: Allergies Allergy/AdvReac Type Severity Reaction Status Date / Time Penicillins Allergy RASH Verified 05/25/17 12:15 - Medications Medications: Current Medications Acetaminophen (Tylenol 325 Mg Supp) 975 mg OR ONCE PRN PRN Reason: Fever >100.4 F Last Admin: 07/16/17 16:40 Dose: 975 mg Physical Exam - Constitutional Appears: Confused - Head Exam Head Exam: NORMAL INSPECTION - Eye Exam Eye Exam: EOMI - ENT Exam ENT Exam: Mucous Membranes Moist - Respiratory Exam Respiratory Exam: NORMAL BREATHING PATTERN - Cardiovascular Exam Cardiovascular Exam: +S1, +S2 - GI/Abdominal Exam Additional comments: Abdomen diffusely tender with prominent tenderness on the right side. - Extremities Exam Extremities exam: Positive for: normal inspection - Neurological Exam Neurological exam: Altered Results - Vital Signs Recent Vital Signs: Last Vital Signs Temp 99.8 F H 07/16/17 19:47 Pulse 118 H 07/16/17 19:47 Resp 20 07/16/17 19:47 BP 106/63 07/16/17 19:47 Pulse Ox 99 07/16/17 19:47 - Labs Result Diagrams: 07/16/17 16:25 07/16/17 16:25 Labs: Laboratory Results - last 24 hr 07/16/17 07/16/17 07/16/17 16:20 16:25 16:25 WBC 4.5 L RBC 4.69 Hgb 13.4 D Hct 40.4 MCV 86.3 MCH 28.7 MCHC 33.2 RDW 16.0 H Plt Count 116 L D MPV 9.6 Neut % (Auto) 93.5 H Lymph % (Auto) 2.3 L [place] % (Auto) 3.7 Eos % (Auto) 0.2 Baso % (Auto) 0.3 Neut # (Auto) 4.2 Lymph # (Auto) 0.1 L [place] # (Auto) 0.2 Eos # (Auto) 0.0 Baso # (Auto) 0.0 Neutrophils % (Manual) 90 H Band Neutrophils % 1 Lymphocytes % (Manual) 5 L Monocytes % (Manual) 3 Eosinophils % (Manual) 1 Platelet Estimate Slightly decreased L RBC Morphology Normal PT INR APTT pO2 VBG pH VBG pCO2 VBG HCO3 VBG Total CO2 VBG O2 Sat (Calc) VBG Base Excess VBG Potassium Glucose Lactate FiO2 Sodium 141 Potassium 3.2 L Chloride 98 Carbon Dioxide 28 Anion Gap 18 BUN 8 Creatinine 0.3 L Est GFR ( Amer) > 60 Est GFR (Non-Af Amer) > 60 POC Glucose (mg/dL) 144 H Random Glucose 159 H Lactic Acid Calcium 9.4 Phosphorus 2.2 L Magnesium 1.8 Total Bilirubin 2.2 H AST 1437 H ALT 787 H D Alkaline Phosphatase 334 H D Troponin I < 0.0120 Total Protein 7.2 Albumin 3.7 Globulin 3.5 Albumin/Globulin Ratio 1.1 Venous Blood Potassium Urine Color Urine Clarity Urine pH Ur Specific [place] Urine Protein Urine Glucose (UA) Urine Ketones Urine Blood Urine Nitrate Urine Bilirubin Urine Urobilinogen Ur Leukocyte Esterase Urine RBC (Auto) Urine Microscopic WBC Ur Squamous Epith Cells Urine Bacteria Hyaline Casts 07/16/17 07/16/17 07/16/17 16:25 16:25 16:33 WBC RBC Hgb Hct MCV MCH MCHC RDW Plt Count MPV Neut % (Auto) Lymph % (Auto) [place] % (Auto) Eos % (Auto) Baso % (Auto) Neut # (Auto) Lymph # (Auto) [place] # (Auto) Eos # (Auto) Baso # (Auto) Neutrophils % (Manual) Band Neutrophils % Lymphocytes % (Manual) Monocytes % (Manual) Eosinophils % (Manual) Platelet Estimate RBC Morphology PT 13.0 INR 1.2 APTT 28.6 pO2 54 VBG pH 7.49 H VBG pCO2 38 L VBG HCO3 28.9 VBG Total CO2 30.2 H VBG O2 Sat (Calc) 95.4 H VBG Base Excess 5.4 H VBG Potassium 3.2 L Glucose 156 H Lactate 2.5 H FiO2 21.0 Sodium 137.0 Potassium Chloride 103.0 Carbon Dioxide Anion Gap BUN Creatinine Est GFR ( Amer) Est GFR (Non-Af Amer) POC Glucose (mg/dL) Random Glucose Lactic Acid 2.4 H Calcium Phosphorus Magnesium Total Bilirubin AST ALT Alkaline Phosphatase Troponin I Total Protein Albumin Globulin Albumin/Globulin Ratio Venous Blood Potassium 3.2 L Urine Color Urine Clarity Urine pH Ur Specific [place] Urine Protein Urine Glucose (UA) Urine Ketones Urine Blood Urine Nitrate Urine Bilirubin Urine Urobilinogen Ur Leukocyte Esterase Urine RBC (Auto) Urine Microscopic WBC Ur Squamous Epith Cells Urine Bacteria Hyaline Casts 07/16/17 07/16/17 16:50 20:14 WBC RBC Hgb Hct MCV MCH MCHC RDW Plt Count MPV Neut % (Auto) Lymph % (Auto) [place] % (Auto) Eos % (Auto) Baso % (Auto) Neut # (Auto) Lymph # (Auto) [place] # (Auto) Eos # (Auto) Baso # (Auto) Neutrophils % (Manual) Band Neutrophils % Lymphocytes % (Manual) Monocytes % (Manual) Eosinophils % (Manual) Platelet Estimate RBC Morphology PT INR APTT pO2 53 VBG pH 7.43 VBG pCO2 45 VBG HCO3 28.4 VBG Total CO2 31.3 H VBG O2 Sat (Calc) 92.2 H VBG Base Excess 4.8 H VBG Potassium 3.1 L Glucose 151 H Lactate 1.5 FiO2 21.0 Sodium 137.0 Potassium Chloride 103.0 Carbon Dioxide Anion Gap BUN Creatinine Est GFR ( Amer) Est GFR (Non-Af Amer) POC Glucose (mg/dL) Random Glucose Lactic Acid Calcium Phosphorus Magnesium Total Bilirubin AST ALT Alkaline Phosphatase Troponin I Total Protein Albumin Globulin Albumin/Globulin Ratio Venous Blood Potassium 3.1 L Urine Color Mai Urine Clarity Cloudy Urine pH 6.0 Ur Specific [place] 1.024 Urine Protein 100 Urine Glucose (UA) Neg Urine Ketones Negative Urine Blood Negative Urine Nitrate Negative Urine Bilirubin Small Urine Urobilinogen 4.0 H Ur Leukocyte Esterase Neg Urine RBC (Auto) 4 H Urine Microscopic WBC 4 Ur Squamous Epith Cells 2 Urine Bacteria Rare Hyaline Casts 0-2 Assessment & Plan - Assessment and Plan (Free Text) Assessment: 82F with transaminitis possibly secondary to hepatic vs GB as eitiology NPO IVF ABX recommend ICU placemement MRCP D/W Dr. Elliot Durbin PGY2 <Josh Zarate - Last Filed: 07/16/17 21:08> History of Present Illness - History of Present Illness History of Present Illness: Patient was seen and examined at the bedside. Agree with resident's note above. Meds - Medications Medications: Current Medications Acetaminophen (Tylenol 325 Mg Supp) 975 mg OR ONCE PRN PRN Reason: Fever >100.4 F Last Admin: 07/16/17 16:40 Dose: 975 mg Potassium Chloride/Sodium Chloride (Potassium Chl 20 Meq In Ns) 1,000 mls @ 125 mls/hr IV .Q8H BELLE Stop: 07/17/17 12:44 Physical Exam - GI/Abdominal Exam Additional comments: soft, tender to palpation, ND, BS+, no rebound, no guarding Results - Vital Signs Recent Vital Signs: Last Vital Signs Temp 99.5 F 07/16/17 20:50 Pulse 113 H 07/16/17 20:50 Resp 20 07/16/17 20:50 BP 116/67 07/16/17 20:50 Pulse Ox 96 07/16/17 20:50 - Labs Result Diagrams: 07/16/17 16:25 07/16/17 16:25 Labs: Laboratory Results - last 24 hr 07/16/17 07/16/17 07/16/17 16:20 16:25 16:25 WBC 4.5 L RBC 4.69 Hgb 13.4 D Hct 40.4 MCV 86.3 MCH 28.7 MCHC 33.2 RDW 16.0 H Plt Count 116 L D MPV 9.6 Neut % (Auto) 93.5 H Lymph % (Auto) 2.3 L [place] % (Auto) 3.7 Eos % (Auto) 0.2 Baso % (Auto) 0.3 Neut # (Auto) 4.2 Lymph # (Auto) 0.1 L [place] # (Auto) 0.2 Eos # (Auto) 0.0 Baso # (Auto) 0.0 Neutrophils % (Manual) 90 H Band Neutrophils % 1 Lymphocytes % (Manual) 5 L Monocytes % (Manual) 3 Eosinophils % (Manual) 1 Platelet Estimate Slightly decreased L RBC Morphology Normal PT INR APTT pO2 VBG pH VBG pCO2 VBG HCO3 VBG Total CO2 VBG O2 Sat (Calc) VBG Base Excess VBG Potassium Glucose Lactate FiO2 Sodium 141 Potassium 3.2 L Chloride 98 Carbon Dioxide 28 Anion Gap 18 BUN 8 Creatinine 0.3 L Est GFR ( Amer) > 60 Est GFR (Non-Af Amer) > 60 POC Glucose (mg/dL) 144 H Random Glucose 159 H Lactic Acid Calcium 9.4 Phosphorus 2.2 L Magnesium 1.8 Total Bilirubin 2.2 H AST 1437 H ALT 787 H D Alkaline Phosphatase 334 H D Troponin I < 0.0120 Total Protein 7.2 Albumin 3.7 Globulin 3.5 Albumin/Globulin Ratio 1.1 Venous Blood Potassium Urine Color Urine Clarity Urine pH Ur Specific [place] Urine Protein Urine Glucose (UA) Urine Ketones Urine Blood Urine Nitrate Urine Bilirubin Urine Urobilinogen Ur Leukocyte Esterase Urine RBC (Auto) Urine Microscopic WBC Ur Squamous Epith Cells Urine Bacteria Hyaline Casts 07/16/17 07/16/1707/16/18 16:25 16:25 16:33 WBC RBC Hgb Hct MCV MCH MCHC RDW Plt Count MPV Neut % (Auto) Lymph % (Auto) [place] % (Auto) Eos % (Auto) Baso % (Auto) Neut # (Auto) Lymph # (Auto) [place] # (Auto) Eos # (Auto) Baso # (Auto) Neutrophils % (Manual) Band Neutrophils % Lymphocytes % (Manual) Monocytes % (Manual) Eosinophils % (Manual) Platelet Estimate RBC Morphology PT 13.0 INR 1.2 APTT 28.6 pO2 54 VBG pH 7.49 H VBG pCO2 38 L VBG HCO3 28.9 VBG Total CO2 30.2 H VBG O2 Sat (Calc) 95.4 H VBG Base Excess 5.4 H VBG Potassium 3.2 L Glucose 156 H Lactate 2.5 H FiO2 21.0 Sodium 137.0 Potassium Chloride 103.0 Carbon Dioxide Anion Gap BUN Creatinine Est GFR ( Amer) Est GFR (Non-Af Amer) POC Glucose (mg/dL) Random Glucose Lactic Acid 2.4 H Calcium Phosphorus Magnesium Total Bilirubin AST ALT Alkaline Phosphatase Troponin I Total Protein Albumin Globulin Albumin/Globulin Ratio Venous Blood Potassium 3.2 L Urine Color Urine Clarity Urine pH Ur Specific [place] Urine Protein Urine Glucose (UA) Urine Ketones Urine Blood Urine Nitrate Urine Bilirubin Urine Urobilinogen Ur Leukocyte Esterase Urine RBC (Auto) Urine Microscopic WBC Ur Squamous Epith Cells Urine Bacteria Hyaline Casts 07/16/17 07/16/17 16:50 20:14 WBC RBC Hgb Hct MCV MCH MCHC RDW Plt Count MPV Neut % (Auto) Lymph % (Auto) [place] % (Auto) Eos % (Auto) Baso % (Auto) Neut # (Auto) Lymph # (Auto) [place] # (Auto) Eos # (Auto) Baso # (Auto) Neutrophils % (Manual) Band Neutrophils % Lymphocytes % (Manual) Monocytes % (Manual) Eosinophils % (Manual) Platelet Estimate RBC Morphology PT INR APTT pO2 53 VBG pH 7.43 VBG pCO2 45 VBG HCO3 28.4 VBG Total CO2 31.3 H VBG O2 Sat (Calc) 92.2 H VBG Base Excess 4.8 H VBG Potassium 3.1 L Glucose 151 H Lactate 1.5 FiO2 21.0 Sodium 137.0 Potassium Chloride 103.0 Carbon Dioxide Anion Gap BUN Creatinine Est GFR ( Amer) Est GFR (Non-Af Amer) POC Glucose (mg/dL) Random Glucose Lactic Acid Calcium Phosphorus Magnesium Total Bilirubin AST ALT Alkaline Phosphatase Troponin I Total Protein Albumin Globulin Albumin/Globulin Ratio Venous Blood Potassium 3.1 L Urine Color [place] Urine Clarity Cloudy Urine pH 6.0 Ur Specific [place] 1.024 Urine Protein 100 Urine Glucose (UA) Neg Urine Ketones Negative Urine Blood Negative Urine Nitrate Negative Urine Bilirubin Small Urine Urobilinogen 4.0 H Ur Leukocyte Esterase Neg Urine RBC (Auto) 4 H Urine Microscopic WBC 4 Ur Squamous Epith Cells 2 Urine Bacteria Rare Hyaline Casts 0-2 - Imaging and Cardiology CT scan - abdomen Status: Image reviewed by me, Report reviewed by me Assessment & Plan - Assessment and Plan (Free Text) Plan: - Keep NPO - IV fluids - pain control - Antibiotics - MRCP - HIDA scan, If HIDa positive patient will require cholecystostomy tube - Recommend ID consultation - Recommend Gastroenterology consultation - Repeat labs in am - Patient is a poor surgical candidate - Will follow
[2017-07-16] MEDS: Fluticasone-Salmeterol 500-50mcg Diskus INH SCH (22:00)
[2017-07-16] MEDS ORDERED: Piperacillin/Tazobact 3.375 GM in Sodium Chloride 0.9% 100 ML IVPB SCH (22:00)
[2017-07-16] MEDS ORDERED: Albuterol-Ipratrop 3 mg / 0.5 (3 ml) UD INH PRN (22:04)
[2017-07-16] MEDS: Ciprofloxacin 400mg/200ml D5W 400 MG/200 ML BAG IVPB SCH (22:15)
--- NOTE | 2017-07-16 22:18 | PCM.SEPTIC ---
Sepsis Progress Note - Reassessment Type Date of Evaluation: 07/16/17 Time of Evaluation: 19:40 Reassessment Type: Non-invasive reassessment - Non Invasive Reassessment Were the most recent vital sign reviewed: Yes Vital Sign (Latest): Temp Pulse Resp BP Pulse Ox 99.5 F 113 H 20 116/67 96 07/16/17 22:00 07/16/17 22:00 07/16/17 22:00 07/16/17 22:00 07/16/17 20:50 Cardiovascular: Yes: Regular Rate, Rhythm, Chest Non Tender, Tachycardia. No: Edema, Gallop, JVD, Murmur, Bradycardia Respiratory: Yes: Normal Breath Sounds. No: Crackles, Rales, Rhonchi, Wheezing , Respiratory Distress Capillary Refill: Normal (Less than 2 sec) Pulses: Normal Radial Skin: Normal Color, Warm, Dry - Invasive Reassessment (complete 2 of 4) Was a Central Venous Pressure Measurement obtained within 6 Hours after the presentation of septic shock: No Was a passive leg raise performed or was a fluid challenge performed within 6 hrs of the initial fluid bolus: Yes Passive Leg Raise Result: Not Applicable Fluid Challenge performed: Yes
[2017-07-16] MEDS: Potassium Chl 20 mEq in NS 1,000 ML IV SCH (23:15)
[2017-07-17] MEDS: metroNIDAZOLE 500mg/100ml NS 100 ML IVPB SCH ×3 (00:35→17:14)
[2017-07-17] MEDS: Aztreonam 1 GM in Sodium Chloride 0.9% 100 ML IVPB SCH ×2 (00:35→10:36)
[2017-07-17 03:16] VITALS: BMI 21.5
[2017-07-17 06:10] LABS: BASO % 0.5 % (0.0-2.0); EOS # 0.1 K/uL (0.0-0.7); EOS % 0.7 % (0.0-4.0); HEMOGLOBIN 12.5 g/dL (12.0-16.0); LYMPH # 0.7 K/uL (1.0-4.3); LYMPH % 8.4 % (20.0-40.0); MEAN CELL VOLUME 86.6 fl (81.0-99.0); MEAN CORPUSCULAR HEMOGLOBIN 28.3 pg (27.0-31.0); MEAN CORPUSCULAR HGB CONC 32.7 g/dL (33.0-37.0); MEAN PLATELET VOLUME 10.4 fl (7.2-11.7); MONO # 0.7 K/uL (0.0-0.8); MONO % 8.2 % (0.0-10.0); NEUT # 6.7 K/uL (1.8-7.0); NEUT % 82.2 % (50.0-75.0); RBC 4.42 Mil/uL (3.80-5.20); RED CELL DISTRIBUTION WIDTH 16.2 % (11.5-14.5); WHITE BLOOD COUNT 8.2 K/uL (4.8-10.8)
[2017-07-17 06:29] LABS: ALBUMIN 3.4 g/dL (3.5-5.0); ALT/SGPT 650 U/L (9-52); BLOOD UREA NITROGEN 8 mg/dl (7-17); CALCIUM 8.8 mg/dL (8.4-10.2); GFR AFRICAN-AMERICAN > 60; GFR NON-AFRICAN AMERICAN > 60
[2017-07-17] MEDS: Potassium Chl 20 mEq in NS 1,000 ML IV SCH (06:35)
[2017-07-17 07:39] LABS: AST/SGOT 762 U/L (14-36)
--- NOTE | 2017-07-17 08:28 | US ---
HISTORY: fever,LFT elevation COMPARISON: None. TECHNIQUE: Sonographic evaluation of the abdomen. FINDINGS: LIVER: Measures 15.2 in length. Increased echogenicity of the liver parenchyma. No mass. No intrahepatic bile duct dilatation. GALLBLADDER: There is a mild amount of gallbladder sludge appreciated. No gallbladder wall thickening or pericholecystic fluid is noted. COMMON BILE DUCT: Measures three in transverse dimension. No stones. No dilatation. PANCREAS: Pancreas was not identified. RIGHT KIDNEY: Measures 8.8cm. Normal echogenicity. No calculus, mass, or hydronephrosis. LEFT KIDNEY: Not included right upper quadrant ultrasound SPLEEN: Not included in right upper quadrant ultrasound AORTA: Limited by overlying bowel gas. IVC: Within normal limits. OTHER FINDINGS: None . IMPRESSION: Fatty infiltration of the liver. No evidence of focal liver mass or intrahepatic ductal dilatation. Mild gallbladder sludge without gallbladder wall thickening.
--- NOTE | 2017-07-17 09:13 | CARD ---
APPROVED REPORT EKG Measurement Heart [id number] <Conclusion> Sinus tachycardia Possible Left atrial enlargement Cannot rule out Inferior infarct, age undetermined Abnormal ECG
--- NOTE | 2017-07-17 09:37 | CP.PCM.PN ---
Addendum entered and electronically signed by Shlomo Nguyen DO 07/17/17 11:39: Nursing surpervisor called- no MRI team confidential investigator on weekend. Original Note: <Shlomo Nguyen - Last Filed: 07/17/17 09:38> Subjective - Date & Time of Evaluation Date of Evaluation: 07/17/17 Time of Evaluation: 09:36 - Subjective Subjective: SURGERY PROGRESS NOTE FOR DR. ZARATE 82F seen and examined at bedside. She denies any pain, nausea, or vomiting. Denies fevers or chills. No acute events over night. Objective - Vital Signs/Intake and Output Vital Signs (last 24 hours): Temp Pulse Resp BP Pulse Ox 97.6 F 136 H 18 111/52 L 93 L 07/17/17 08:00 07/17/17 09:35 07/17/17 08:00 07/17/17 08:00 07/17/17 09:35 Intake and Output: 07/17/17 07/17/17 06:59 18:59 Intake Total 1175 Balance 1175 - Medications Medications: Current Medications Acetaminophen (Tylenol 325 Mg Supp) 975 mg PA ONCE PRN PRN Reason: Fever >100.4 F Last Admin: 07/16/17 16:40 Dose: 975 mg Acetaminophen (Tylenol 650 Mg Supp) 650 mg PA Q6 PRN PRN Reason: Fever >100.4 F Albuterol/Ipratropium (Duoneb 3 Mg/0.5 Mg (3 Ml) Ud) 3 ml INH RQ6 PRN PRN Reason: Shortness of Breath Potassium Chloride/Sodium Chloride (Potassium Chl 20 Meq In Ns) 1,000 mls @ 125 mls/hr IV .Q8H [facility]LE Stop: 07/17/17 12:44 Last Admin: 07/17/17 06:35 Dose: Not Given Aztreonam 1 gm/ Sodium (Chloride) 100 mls @ 100 mls/hr IVPB Q8 BELLE PRN Reason: Protocol Last Admin: 07/17/17 00:35 Dose: 100 mls/hr Metronidazole (Flagyl 500mg/100ml Ns) 100 mls @ 100 mls/hr IVPB Q8 BELLE PRN Reason: Protocol Last Admin: 07/17/17 00:35 Dose: 100 mls/hr Ciprofloxacin (Cipro 400mg/200ml Dsw) 400 mg in 200 mls @ 200 mls/hr IVPB Q12 BELLE PRN Reason: Protocol Last Admin: 07/16/17 22:15 Dose: 200 mls/hr Morphine Sulfate (Morphine) 4 mg IVP Q6 PRN PRN Reason: Pain, severe (8-10) Morphine Sulfate (Morphine) 2 mg IVP Q6 PRN PRN Reason: Pain, moderate (4-7) Nitroglycerin (Nitro-Dur 0.2 Mg/Hr Patch) 1 patch TD DAILY [facility] Fluticasone/Salmeterol (Advair Diskus 500/50) 1 puff INH Q12H [facility] Last Admin: 07/16/17 22:00 Dose: Not Given - Labs Labs: 07/17/17 05:37 07/17/17 05:37 PT 13.0 Seconds (9.8-13.1) 07/16/17 16:25 INR 1.2 (0.9-1.2) 07/16/17 16:25 APTT 28.6 Seconds (25.6-37.1) 07/16/17 16:25 - Constitutional Appears: Well, Non-toxic, No Acute Distress, Other (elderly) - Respiratory Exam Respiratory Exam: Clear to Ausculation Bilateral, NORMAL BREATHING PATTERN - Cardiovascular Exam Cardiovascular Exam: REGULAR RHYTHM, +S1, +S2 - GI/Abdominal Exam GI & Abdominal Exam: Soft. absent: Distended, Firm, Guarding, Rigid, Tenderness , Rebound - Neurological Exam Neurological Exam: Alert, Awake - Psychiatric Exam Psychiatric exam: Normal Affect, Normal Mood - Skin Skin Exam: Dry, Intact, Normal Color, Warm Assessment and Plan - Assessment and Plan (Free Text) Assessment: 82F with cholecystitis vs hepatitis Plan: - NPO, IV fluids - pain control - Antibiotics - Patient needs MRCP - HIDA scan, If HIDa positive patient will require cholecystostomy tube - Patient is a poor surgical candidate Follow up labs Further recs discuss with Dr. Elliot Nguyen, PGY2 <Josh Zarate - Last Filed: 07/17/17 14:26> Subjective - Date & Time of Evaluation Time of Evaluation: 14:00 - Subjective Subjective: Patient was seen and examined at the bedside. Denies any abdominal pain. Agree with resident's note above. Objective - Vital Signs/Intake and Output Vital Signs (last 24 hours): Temp Pulse Resp BP Pulse Ox 98.6 F 93 H 10 L 107/82 87 L 07/17/17 12:00 07/17/17 12:00 07/17/17 12:00 07/17/17 12:00 07/17/17 12:00 Intake and Output: 07/17/17 07/17/17 06:59 18:59 Intake Total 1175 200 Balance 1175 200 - Medications Medications: Current Medications Acetaminophen (Tylenol 325 Mg Supp) 975 mg PA ONCE PRN PRN Reason: Fever >100.4 F Last Admin: 07/16/17 16:40 Dose: 975 mg Acetaminophen (Tylenol 650 Mg Supp) 650 mg PA Q6 PRN PRN Reason: Fever >100.4 F Albuterol/Ipratropium (Duoneb 3 Mg/0.5 Mg (3 Ml) Ud) 3 ml INH RQ6 PRN PRN Reason: Shortness of Breath Metronidazole (Flagyl 500mg/100ml Ns) 100 mls @ 100 mls/hr IVPB Q8 BELLE PRN Reason: Protocol Last Admin: 07/17/17 10:38 Dose: 100 mls/hr Ciprofloxacin (Cipro 400mg/200ml Dsw) 400 mg in 200 mls @ 200 mls/hr IVPB Q12 BELLE PRN Reason: Protocol Last Admin: 07/17/17 10:53 Dose: 200 mls/hr Dextrose/Sodium Chloride (Dextrose 5%/0.45% Ns 1000 Ml) 1,000 mls @ 75 mls/hr IV .[id number] [facility] Stop: 07/18/17 13:35 Aztreonam 2 gm/ Sodium (Chloride) 100 mls @ 100 mls/hr IVPB Q8 BELLE PRN Reason: Protocol Morphine Sulfate (Morphine) 4 mg IVP Q6 PRN PRN Reason: Pain, severe (8-10) Morphine Sulfate (Morphine) 2 mg IVP Q6 PRN PRN Reason: Pain, moderate (4-7) Last Admin: 07/17/17 10:53 Dose: 2 mg Nitroglycerin (Nitro-Dur 0.2 Mg/Hr Patch) 1 patch TD DAILY [facility] Last Admin: 07/17/17 10:46 Dose: 1 patch Fluticasone/Salmeterol (Advair Diskus 500/50) 1 puff INH Q12H [facility] Last Admin: 07/17/17 10:35 Dose: 1 puff - Labs Labs: 07/17/17 05:37 07/17/17 05:37 PT 13.0 Seconds (9.8-13.1) 07/16/17 16:25 INR 1.2 (0.9-1.2) 07/16/17 16:25 APTT 28.6 Seconds (25.6-37.1) 07/16/17 16:25
[2017-07-17] MEDS ORDERED: Potassium Chloride 20 mEq ER Tab PO ONE (10:03)
--- NOTE | 2017-07-17 10:08 | CP.PCM.CON ---
History of Present Illness - History of Present Illness History of Present Illness: Pt was admitted last night in ER and now transferred to ICU Kain is a 82 years old female who was sent to ER from [place] due to fever and AMS , she had fever of 103 in ER. She has hx of Seizure, HTN, dementia, last admitted on 05/25/17 for abdominal pain with Dx of acute Cholecystitis and treated with Cholecystostomy tube placment done. In the ED she was awake, has unintelligible speech, but appeared to understand spoken word, indicating that she has abdominal pain, more at the LLQ and RUQ. Her Temperature was 103.0F; HR 136/min and RR 25/min. Now in ICU, she has no pain, said she was hungry and asking for food. No SO, no CP, no vomiting or diarrhea. She had fever and high lactic acid, 2.8 in ER. Review of Systems - Review of Systems Systems not reviewed;Unavailable: Dementia - Constitutional Constitutional: As Per HPI - EENT Eyes: As Per HPI - Respiratory Respiratory: As Per HPI - Gastrointestinal Gastrointestinal: Abdominal Pain - Genitourinary Genitourinary: As Per HPI Past Patient History - Infectious Disease Hx of Infectious Diseases: None - Past Medical History & Family History Past Medical History?: Yes - Past Social History Smoking Status: Never Smoked Chewing Tobacco Use: No Cigar Use: No Alcohol: None Home Situation {Lives}: Custodial - CARDIAC Hx Congestive Heart Failure: Yes Hx Hypercholesterolemia: Yes Hx Hypertension: Yes - PULMONARY Hx Asthma: Yes Hx Chronic Obstructive Pulmonary Disease (COPD): Yes - NEUROLOGICAL Hx Dementia: Yes Hx Seizures: Yes - HEENT Hx HEENT Problems: No - RENAL Hx Chronic Kidney Disease: No - ENDOCRINE/METABOLIC Hx Endocrine Disorders: No - HEMATOLOGICAL/ONCOLOGICAL Hx Anemia: Yes Hx Human Immunodeficiency Virus (HIV): No - INTEGUMENTARY Hx Dermatological Problems: No - MUSCULOSKELETAL/RHEUMATOLOGICAL Hx Arthritis: Yes (poly) Hx Fractures: Yes (L wrist , comp Fx T Spine) Hx Osteoporosis: Yes - GASTROINTESTINAL Hx Gastrointestinal Disorders: Yes Hx Constipation: Yes - GENITOURINARY/GYNECOLOGICAL Hx Genitourinary Disorders: Yes Hx Incontinence: Yes - PSYCHIATRIC Hx Anxiety: Yes Hx Depression: Yes - SURGICAL HISTORY Hx Coronary Artery Bypass Graft: Yes - ANESTHESIA Hx Anesthesia: Yes Hx Anesthesia Reactions: No Hx Malignant Hyperthermia: No Meds Allergies/Adverse Reactions: Allergies Allergy/AdvReac Type Severity Reaction Status Date / Time Penicillins Allergy RASH Verified 05/25/17 12:15 - Medications Medications: Current Medications Acetaminophen (Tylenol 325 Mg Supp) 975 mg FL ONCE PRN PRN Reason: Fever >100.4 F Last Admin: 07/16/17 16:40 Dose: 975 mg Acetaminophen (Tylenol 650 Mg Supp) 650 mg FL Q6 PRN PRN Reason: Fever >100.4 F Albuterol/Ipratropium (Duoneb 3 Mg/0.5 Mg (3 Ml) Ud) 3 ml INH RQ6 PRN PRN Reason: Shortness of Breath Potassium Chloride/Sodium Chloride (Potassium Chl 20 Meq In Ns) 1,000 mls @ 125 mls/hr IV .Q8H [facility] Stop: 07/17/17 12:44 Last Admin: 07/17/17 06:35 Dose: Not Given Aztreonam 1 gm/ Sodium (Chloride) 100 mls @ 100 mls/hr IVPB Q8 BELLE PRN Reason: Protocol Last Admin: 07/17/17 00:35 Dose: 100 mls/hr Metronidazole (Flagyl 500mg/100ml Ns) 100 mls @ 100 mls/hr IVPB Q8 BELLE PRN Reason: Protocol Last Admin: 07/17/17 00:35 Dose: 100 mls/hr Ciprofloxacin (Cipro 400mg/200ml Dsw) 400 mg in 200 mls @ 200 mls/hr IVPB Q12 BELLE PRN Reason: Protocol Last Admin: 07/16/17 22:15 Dose: 200 mls/hr Morphine Sulfate (Morphine) 4 mg IVP Q6 PRN PRN Reason: Pain, severe (8-10) Morphine Sulfate (Morphine) 2 mg IVP Q6 PRN PRN Reason: Pain, moderate (4-7) Nitroglycerin (Nitro-Dur 0.2 Mg/Hr Patch) 1 patch TD DAILY [facility] Potassium Chloride (K-Dur 20 Meq Er Tab) 20 meq PO ONCE ONE Stop: 07/17/17 10:04 Fluticasone/Salmeterol (Advair Diskus 500/50) 1 puff INH Q12H [facility] Last Admin: 07/16/17 22:00 Dose: Not Given Physical Exam - Head Exam Head Exam: ATRAUMATIC - Eye Exam Pupil Exam: NORMAL ACCOMODATION - Neck Exam Neck exam: Positive for: Full Rom - Respiratory Exam Respiratory Exam: NORMAL BREATHING PATTERN - Cardiovascular Exam Cardiovascular Exam: REGULAR RHYTHM - GI/Abdominal Exam GI & Abdominal Exam: Tenderness - Neurological Exam Neurological exam: Normal Gait Results - Vital Signs Recent Vital Signs: Last Vital Signs Temp 97.6 F 07/17/17 08:00 Pulse 136 H 07/17/17 09:41 Resp 18 07/17/17 08:00 BP 111/52 L 07/17/17 08:00 Pulse Ox 93 L 07/17/17 09:41 - Labs Result Diagrams: 07/17/17 05:37 07/17/17 05:37 Labs: Laboratory Results - last 24 hr 07/16/17 07/16/17 07/16/17 16:20 16:25 16:25 WBC 4.5 L RBC 4.69 Hgb 13.4 D Hct 40.4 MCV 86.3 MCH 28.7 MCHC 33.2 RDW 16.0 H Plt Count 116 L D MPV 9.6 Neut % (Auto) 93.5 H Lymph % (Auto) 2.3 L Saline % (Auto) 3.7 Eos % (Auto) 0.2 Baso % (Auto) 0.3 Neut # (Auto) 4.2 Lymph # (Auto) 0.1 L Saline # (Auto) 0.2 Eos # (Auto) 0.0 Baso # (Auto) 0.0 Neutrophils % (Manual) 90 H Band Neutrophils % 1 Lymphocytes % (Manual) 5 L Monocytes % (Manual) 3 Eosinophils % (Manual) 1 Platelet Estimate Slightly decreased L RBC Morphology Normal PT INR APTT pO2 VBG pH VBG pCO2 VBG HCO3 VBG Total CO2 VBG O2 Sat (Calc) VBG Base Excess VBG Potassium Glucose Lactate FiO2 Sodium 141 Potassium 3.2 L Chloride 98 Carbon Dioxide 28 Anion Gap 18 BUN 8 Creatinine 0.3 L Est GFR ( Amer) > 60 Est GFR (Non-Af Amer) > 60 POC Glucose (mg/dL) 144 H Random Glucose 159 H Lactic Acid Calcium 9.4 Phosphorus 2.2 L Magnesium 1.8 Total Bilirubin 2.2 H AST 1437 H ALT 787 H D Alkaline Phosphatase 334 H D Troponin I < 0.0120 Total Protein 7.2 Albumin 3.7 Globulin 3.5 Albumin/Globulin Ratio 1.1 Venous Blood Potassium Urine Color Urine Clarity Urine pH Ur Specific [place] Urine Protein Urine Glucose (UA) Urine Ketones Urine Blood Urine Nitrate Urine Bilirubin Urine Urobilinogen Ur Leukocyte Esterase Urine RBC (Auto) Urine Microscopic WBC Ur Squamous Epith Cells Urine Bacteria Hyaline Casts 07/16/17 07/16/17 07/16/17 16:25 16:25 16:33 WBC RBC Hgb Hct MCV MCH MCHC RDW Plt Count MPV Neut % (Auto) Lymph % (Auto) Saline % (Auto) Eos % (Auto) Baso % (Auto) Neut # (Auto) Lymph # (Auto) Saline # (Auto) Eos # (Auto) Baso # (Auto) Neutrophils % (Manual) Band Neutrophils % Lymphocytes % (Manual) Monocytes % (Manual) Eosinophils % (Manual) Platelet Estimate RBC Morphology PT 13.0 INR 1.2 APTT 28.6 pO2 54 VBG pH 7.49 H VBG pCO2 38 L VBG HCO3 28.9 VBG Total CO2 30.2 H VBG O2 Sat (Calc) 95.4 H VBG Base Excess 5.4 H VBG Potassium 3.2 L Glucose 156 H Lactate 2.5 H FiO2 21.0 Sodium 137.0 Potassium Chloride 103.0 Carbon Dioxide Anion Gap BUN Creatinine Est GFR ( Amer) Est GFR (Non-Af Amer) POC Glucose (mg/dL) Random Glucose Lactic Acid 2.4 H Calcium Phosphorus Magnesium Total Bilirubin AST ALT Alkaline Phosphatase Troponin I Total Protein Albumin Globulin Albumin/Globulin Ratio Venous Blood Potassium 3.2 L Urine Color Urine Clarity Urine pH Ur Specific [place] Urine Protein Urine Glucose (UA) Urine Ketones Urine Blood Urine Nitrate Urine Bilirubin Urine Urobilinogen Ur Leukocyte Esterase Urine RBC (Auto) Urine Microscopic WBC Ur Squamous Epith Cells Urine Bacteria Hyaline Casts 07/16/17 07/16/17 07/17/17 16:50 20:14 05:37 WBC 8.2 D RBC 4.42 Hgb 12.5 Hct 38.3 MCV 86.6 MCH 28.3 MCHC 32.7 L RDW 16.2 H Plt Count 113 L MPV 10.4 Neut % (Auto) 82.2 H Lymph % (Auto) 8.4 L Saline % (Auto) 8.2 Eos % (Auto) 0.7 Baso % (Auto) 0.5 Neut # (Auto) 6.7 Lymph # (Auto) 0.7 L Saline # (Auto) 0.7 Eos # (Auto) 0.1 Baso # (Auto) 0.0 Neutrophils % (Manual) Band Neutrophils % Lymphocytes % (Manual) Monocytes % (Manual) Eosinophils % (Manual) Platelet Estimate RBC Morphology PT INR APTT pO2 53 VBG pH 7.43 VBG pCO2 45 VBG HCO3 28.4 VBG Total CO2 31.3 H VBG O2 Sat (Calc) 92.2 H VBG Base Excess 4.8 H VBG Potassium 3.1 L Glucose 151 H Lactate 1.5 FiO2 21.0 Sodium 137.0 Potassium Chloride 103.0 Carbon Dioxide Anion Gap BUN Creatinine Est GFR ( Amer) Est GFR (Non-Af Amer) POC Glucose (mg/dL) Random Glucose Lactic Acid Calcium Phosphorus Magnesium Total Bilirubin AST ALT Alkaline Phosphatase Troponin I Total Protein Albumin Globulin Albumin/Globulin Ratio Venous Blood Potassium 3.1 L Urine Color Mai Urine Clarity Cloudy Urine pH 6.0 Ur Specific [place] 1.024 Urine Protein 100 Urine Glucose (UA) Neg Urine Ketones Negative Urine Blood Negative Urine Nitrate Negative Urine Bilirubin Small Urine Urobilinogen 4.0 H Ur Leukocyte Esterase Neg Urine RBC (Auto) 4 H Urine Microscopic WBC 4 Ur Squamous Epith Cells 2 Urine Bacteria Rare Hyaline Casts 0-2 07/17/17 05:37 WBC RBC Hgb Hct MCV MCH MCHC RDW Plt Count MPV Neut % (Auto) Lymph % (Auto) Saline % (Auto) Eos % (Auto) Baso % (Auto) Neut # (Auto) Lymph # (Auto) Saline # (Auto) Eos # (Auto) Baso # (Auto) Neutrophils % (Manual) Band Neutrophils % Lymphocytes % (Manual) Monocytes % (Manual) Eosinophils % (Manual) Platelet Estimate RBC Morphology PT INR APTT pO2 VBG pH VBG pCO2 VBG HCO3 VBG Total CO2 VBG O2 Sat (Calc) VBG Base Excess VBG Potassium Glucose Lactate FiO2 Sodium 144 Potassium 3.3 L Chloride 101 Carbon Dioxide 29 Anion Gap 17 BUN 8 Creatinine 0.3 L Est GFR ( Amer) > 60 Est GFR (Non-Af Amer) > 60 POC Glucose (mg/dL) Random Glucose 92 Lactic Acid Calcium 8.8 Phosphorus Magnesium Total Bilirubin 3.6 H AST 762 H D ALT 650 H Alkaline Phosphatase 289 H Troponin I Total Protein 6.8 Albumin 3.4 L Globulin 3.5 Albumin/Globulin Ratio 1.0 Venous Blood Potassium Urine Color Urine Clarity Urine pH Ur Specific [place] Urine Protein Urine Glucose (UA) Urine Ketones Urine Blood Urine Nitrate Urine Bilirubin Urine Urobilinogen Ur Leukocyte Esterase Urine RBC (Auto) Urine Microscopic WBC Ur Squamous Epith Cells Urine Bacteria Hyaline Casts Assessment & Plan - Assessment and Plan (Free Text) Assessment: Assessment: 82 YOF with recent, in May 2017, h/o cholecystitis, treated with cholestomy drain, now admitted with fever and abdominal pain and has high liver enzyme. #. Acute Cholecystitis #. Stercoral Proctitis #. Severe Sepsis #. Hypokalemia #. Hx of Seizure #. Hx of Dementia Plan: #. Acute Cholecystitis as per CT abdomen/Pelvis - Surgical consult appreciated - NPO - Astreonam - Cipro - Flagyl - Pain management - IV fluids: NS with 20 kcl , decrease to 80 cc/h #. Stercoral Proctitis as per CT Pelvis - Consult Dr Hackett GI - Antibiotics as mentioned above #. Severe Sepsis - Consult Dr Roper ID - follow Blood and urine cultures - Cipro/Aztreonam/flagyl #. Hypokalemia - Replace Potassium in IV Fluids and also given PO - Follow electrolytes #. Hx of Seizure - lamotragine #. Hx of Dementia #. Asthma/COPD - Duoneb PRN #. DVT Prophylaxis SCD
[2017-07-17] MEDS: Fluticasone-Salmeterol 500-50mcg Diskus INH SCH ×2 (10:35→20:29)
[2017-07-17] MEDS: Nitroglycerin 0.2 mg/hr Top Patch TD SCH (10:46)
[2017-07-17] MEDS: Ciprofloxacin 400mg/200ml D5W 400 MG/200 ML BAG IVPB SCH ×2 (10:53→20:28)
--- NOTE | 2017-07-17 13:36 | CP.PCM.CON ---
History of Present Illness - History of Present Illness History of Present Illness: 82yo female,with a PMH of HTN, HLD, Seizures, Dementia, Depression, COPD, s/p left hip ORIF came to the ED for abdominal pain sent to ED from [facility], for evaluation of fever and altered mental status. Was started on empiric IV antibiotics upon admission after septic work up completed .Pt was admitted one month ago for cholecystitis and sepsis.Was treated at that time with IR directed Cholecystostomy tube.Plan was to eventually bring pt back for cholecystectomy.Pt is now in a rehab facility,was sent in for evaluation of lethargy and fever.Pt is unable to offer any hx but seems to be having abdominal pain In ED pt had a ct which was significant for thickened GB wal and perihepatic fluid. PMH: HTN, HLD, Seizures, Dementia, Depression, COPD, multiple compressions of the thoracic spine, rib fractures, left Femur fracture, Osteoporosis Meds: as per EMR Allergy: PCN PSH: ORIF Left Femur, L3 Kyphoplasty FH: unknown Social: [facility] at the [facility] Review of Systems - Review of Systems All systems: reviewed and no additional remarkable complaints except - Constitutional Constitutional: As Per HPI, Anorexia, Malaise - EENT Eyes: absent: As Per HPI, Blind Spots, Blurred Vision, Change in Vision, Decreased Night Vision, Diplopia, Discharge, Dry Eye, Exophthalmos, Floaters, Irritation, Itchy Eyes, Loss of Peripheral Vision, Pain, Photophobia, Requires Corrective Lenses, Sees Flashes, Spots in Vision, Tunnel Vision, Other Visual Disturbances, Loss of Vision, Other Ears: absent: As Per HPI, Decreased Hearing, Ear Discharge, Ear Pain, Tinnitus, Abnormal Hearing, Disequilibrium, Dizziness, Other Nose/Mouth/Throat: absent: As Per HPI, Epistaxis, Nasal Congestion, Nasal Discharge, Nasal Obstruction, Nasal Trauma, Nose Pain, Post Nasal Drip, Sinus Pain, Sinus Pressure, Bleeding Gums, Change in Voice, Dental Pain, Dry Mouth, Dysphagia, Halitosis, Hoarsness, Lip Swelling, Mouth Lesions, Mouth Pain, Odynophagia, Sore Throat, Throat Swelling, Tongue Swelling, Facial Pain, Neck Pain, Neck Mass, Other - Breasts Breasts: absent: As Per HPI, Change in Shape, Mass, Pain, Nipple Discharge, Nipple Inversion, Skin Changes, Swelling, Other - Cardiovascular Cardiovascular: absent: As Per HPI, Acrocyanosis, Chest Pain, Chest Pain at Rest , Chest Pain with Activity, Claudication, Diaphoresis, Dyspnea, Dyspnea on Exertion, Edema, Irregular Heart Rhythm, Pain Radiating to Arm/Neck/Jaw, Leg Edema, Leg Ulcers, Lightheadedness, Orthopnea, Palpitations, Paroxysmal Nocturnal Dyspnea, Pedal Edema, Radiating Pain, Rapid Heart Rate, Slow Heart Rate, Syncope, Other - Respiratory Respiratory: absent: As Per HPI, Cough, Dyspnea, Hemoptysis, Dyspnea on Exertion , Wheezing, Snoring, Stridor, Pain on Inspiration, Chest Congestion, Excessive Mucous Production, Change in Mucous Color, Pain with Coughing, Other - Gastrointestinal Gastrointestinal: As Per HPI - Genitourinary Genitourinary: absent: As Per HPI, Change in Urinary Stream, Difficulty Urinating, Dysuria, Flank Pain, Hematuria, Pyuria, Nocturia, Urinary Incontinence, Urinary Frequency, Urinary Hesitance, Urinary Urgency, Voiding Freq/Small Amts, Freq UTI, Hx Renal/Bladder Calculi, Hx /Renal Surgery, Bladder Distension, Other - Reproductive: Female Reproductive:Female: absent: As Per HPI, Amenorrhea, Amenorrhea/ Control, Currently Menstual, Cycle <21 Days, Cycle >35 Days, Cycle Variable, Menses 1-7 Days, Menses >/= 8 Days, Menses Variable, Cycle > 4 Weeks Between, No Menses for 6 Months, Heavy Menses, Light Menses, Normal Menses, Spotting Between Cycles , S/P Hysterectomy, Menopausal, Post Menopausal, Premenarche, Abnormal Vaginal Bleeding, Dysmenorrhea, Dyspareunia, Genital Lesions, Genital Pruritis, Pelvic Pain, Prolapse Symptoms, Sexual Dysfunction, Vaginal Discharge, Vaginal Dryness , Vaginal Odor, Vaginal Pruritis, Other - Menstruation Menstruation: absent: As Per HPI, Amenorrhea, Amenorrhea/ Control, Currently Menstual, Cycle <21 Days, Cycle >35 Days, Cycle Variable, Menses 1-7 Days, Menses >/= 8 Days, Menses Variable, Cycle > 4 Weeks Between, No Menses for 6 Months, Heavy Menses, Light Menses, Normal Menses, Spotting Between Cycles , S/P Hysterectomy, Menopausal, Post Menopausal, Premenarche, Abnormal Vaginal Bleeding, Dysmenorrhea, Other - Musculoskeletal Musculoskeletal: absent: As Per HPI, Abnormal Gait, Arthralgias, Atrophy, Back Pain, Deformity, Joint Swelling, Limited Range of Motion, Loss of Height, Muscle Cramps, Muscle Weakness, Myalgias, Neck Pain, Numbness, Radiating Pain into Limb, Stiffness, Tingling, Other - Integumentary Integumentary: absent: As Per HPI, Acne, Alopecia, Bleeding Lesions, Change in Hair, Change in Nails, Change in Pigmentation, Changing Lesions, Dry Skin, Erythema, Furuncle, Hirsutism, Lesions, New Lesions, Non-Healing Lesions, Photosensitivity, Pruritus, Rash, Skin Pain, Skin Ulcer, Sores, Striae, Swelling , Unusual Bruising, Wounds, Jaundice, Other - Neurological Neurological: As Per HPI - Psychiatric Psychiatric: absent: As Per HPI, Abnormal Sleep Pattern, Anhedonia, Anxiety, Auditory Hallucinations, Behavioral Changes, Change in Appetite, Change in Libido, Confusion, Depression, Difficulty Concentrating, Hallucinations, Homicidal Ideation, Hopelessness, Irritability, Memory Loss, Mood Swings, Panic Attacks, Paranoia, Suicidal Ideation, Visual Hallucinations, Tactile Hallucinations, Other - Endocrine Endocrine: absent: As Per HPI, Change in Body Appearance, Change in Libido, Cold Intolorance, Deepening of Voice, Excessive Sweating, Fatigue, Flushing, Heat Intolorance, Increase in Ring/Shoe/Hat Size, Palpitations, Polydipsia, Polyphagia, Polyuria, Other - Hematologic/Lymphatic Hematologic: absent: As Per HPI, Easy Bleeding, Easy Bruising, Lymphadenopathy, Other Past Patient History - Infectious Disease Hx of Infectious Diseases: None - Past Medical History & Family History Past Medical History?: Yes - Past Social History Smoking Status: Never Smoked Chewing Tobacco Use: No Cigar Use: No Alcohol: None Home Situation {Lives}: Residential - CARDIAC Hx Congestive Heart Failure: Yes Hx Hypercholesterolemia: Yes Hx Hypertension: Yes - PULMONARY Hx Asthma: Yes Hx Chronic Obstructive Pulmonary Disease (COPD): Yes - NEUROLOGICAL Hx Dementia: Yes Hx Seizures: Yes - HEENT Hx HEENT Problems: No - RENAL Hx Chronic Kidney Disease: No - ENDOCRINE/METABOLIC Hx Endocrine Disorders: No - HEMATOLOGICAL/ONCOLOGICAL Hx Anemia: Yes Hx Human Immunodeficiency Virus (HIV): No - INTEGUMENTARY Hx Dermatological Problems: No - MUSCULOSKELETAL/RHEUMATOLOGICAL Hx Arthritis: Yes (poly) Hx Fractures: Yes (L wrist , comp Fx T Spine) Hx Osteoporosis: Yes - GASTROINTESTINAL Hx Gastrointestinal Disorders: Yes Hx Constipation: Yes - GENITOURINARY/GYNECOLOGICAL Hx Genitourinary Disorders: Yes Hx Incontinence: Yes - PSYCHIATRIC Hx Anxiety: Yes Hx Depression: Yes - SURGICAL HISTORY Hx Coronary Artery Bypass Graft: Yes - ANESTHESIA Hx Anesthesia: Yes Hx Anesthesia Reactions: No Hx Malignant Hyperthermia: No Meds Allergies/Adverse Reactions: Allergies Allergy/AdvReac Type Severity Reaction Status Date / Time Penicillins Allergy RASH Verified 05/25/17 12:15 - Medications Medications: Current Medications Acetaminophen (Tylenol 325 Mg Supp) 975 mg NJ ONCE PRN PRN Reason: Fever >100.4 F Last Admin: 07/16/17 16:40 Dose: 975 mg Acetaminophen (Tylenol 650 Mg Supp) 650 mg NJ Q6 PRN PRN Reason: Fever >100.4 F Albuterol/Ipratropium (Duoneb 3 Mg/0.5 Mg (3 Ml) Ud) 3 ml INH RQ6 PRN PRN Reason: Shortness of Breath Aztreonam 1 gm/ Sodium (Chloride) 100 mls @ 100 mls/hr IVPB Q8 BELLE PRN Reason: Protocol Last Admin: 07/17/17 10:36 Dose: 100 mls/hr Metronidazole (Flagyl 500mg/100ml Ns) 100 mls @ 100 mls/hr IVPB Q8 BELLE PRN Reason: Protocol Last Admin: 07/17/17 10:38 Dose: 100 mls/hr Ciprofloxacin (Cipro 400mg/200ml Dsw) 400 mg in 200 mls @ 200 mls/hr IVPB Q12 BELLE PRN Reason: Protocol Last Admin: 07/17/17 10:53 Dose: 200 mls/hr Morphine Sulfate (Morphine) 4 mg IVP Q6 PRN PRN Reason: Pain, severe (8-10) Morphine Sulfate (Morphine) 2 mg IVP Q6 PRN PRN Reason: Pain, moderate (4-7) Last Admin: 07/17/17 10:53 Dose: 2 mg Nitroglycerin (Nitro-Dur 0.2 Mg/Hr Patch) 1 patch TD DAILY [facility] Last Admin: 07/17/17 10:46 Dose: 1 patch Fluticasone/Salmeterol (Advair Diskus 500/50) 1 puff INH Q12H BELLE Last Admin: 07/17/17 10:35 Dose: 1 puff Physical Exam - Constitutional Appears: Non-toxic, Confused, Chronically Ill - Head Exam Head Exam: ATRAUMATIC, NORMAL INSPECTION, NORMOCEPHALIC - Eye Exam Eye Exam: PERRL. absent: Scleral icterus - ENT Exam ENT Exam: Mucous Membranes Dry, Normal Oropharynx - Neck Exam Neck exam: Negative for: Lymphadenopathy - Respiratory Exam Respiratory Exam: Decreased Breath Sounds, Clear to Auscultation Bilateral - Cardiovascular Exam Cardiovascular Exam: REGULAR RHYTHM, +S1, +S2 - GI/Abdominal Exam GI & Abdominal Exam: Diminished Bowel Sounds, Distended, Guarding, Soft, Tenderness. absent: Rebound, Rigid - Rectal Exam Rectal Exam: Deferred - Exam Exam: NORMAL INSPECTION - Extremities Exam Extremities exam: Negative for: pedal edema - Back Exam Back exam: absent: CVA tenderness (L), CVA tenderness (R), paraspinal tenderness - Neurological Exam Neurological exam: Alert, Altered, CN II-XII Intact, Reflexes Normal - Psychiatric Exam Psychiatric exam: Depressed - Skin Skin Exam: Dry, Intact Results - Vital Signs Recent Vital Signs: Last Vital Signs Temp 98.6 F 07/17/17 12:00 Pulse 93 H 07/17/17 12:00 Resp 10 L 07/17/17 12:00 BP 107/82 07/17/17 12:00 Pulse Ox 87 L 07/17/17 12:00 - Labs Result Diagrams: 07/17/17 05:37 07/17/17 05:37 Labs: Laboratory Results - last 24 hr 07/16/17 07/16/17 07/16/17 16:20 16:25 16:25 WBC 4.5 L RBC 4.69 Hgb 13.4 D Hct 40.4 MCV 86.3 MCH 28.7 MCHC 33.2 RDW 16.0 H Plt Count 116 L D MPV 9.6 Neut % (Auto) 93.5 H Lymph % (Auto) 2.3 L [place] % (Auto) 3.7 Eos % (Auto) 0.2 Baso % (Auto) 0.3 Neut # (Auto) 4.2 Lymph # (Auto) 0.1 L [place] # (Auto) 0.2 Eos # (Auto) 0.0 Baso # (Auto) 0.0 Neutrophils % (Manual) 90 H Band Neutrophils % 1 Lymphocytes % (Manual) 5 L Monocytes % (Manual) 3 Eosinophils % (Manual) 1 Platelet Estimate Slightly decreased L RBC Morphology Normal PT INR APTT pO2 VBG pH VBG pCO2 VBG HCO3 VBG Total CO2 VBG O2 Sat (Calc) VBG Base Excess VBG Potassium Glucose Lactate FiO2 Sodium 141 Potassium 3.2 L Chloride 98 Carbon Dioxide 28 Anion Gap 18 BUN 8 Creatinine 0.3 L Est GFR ( Amer) > 60 Est GFR (Non-Af Amer) > 60 POC Glucose (mg/dL) 144 H Random Glucose 159 H Lactic Acid Calcium 9.4 Phosphorus 2.2 L Magnesium 1.8 Total Bilirubin 2.2 H AST 1437 H ALT 787 H D Alkaline Phosphatase 334 H D Troponin I < 0.0120 Total Protein 7.2 Albumin 3.7 Globulin 3.5 Albumin/Globulin Ratio 1.1 Venous Blood Potassium Urine Color Urine Clarity Urine pH Ur Specific [place] Urine Protein Urine Glucose (UA) Urine Ketones Urine Blood Urine Nitrate Urine Bilirubin Urine Urobilinogen Ur Leukocyte Esterase Urine RBC (Auto) Urine Microscopic WBC Ur Squamous Epith Cells Urine Bacteria Hyaline Casts 07/16/17 07/16/17 07/16/17 16:25 16:25 16:33 WBC RBC Hgb Hct MCV MCH MCHC RDW Plt Count MPV Neut % (Auto) Lymph % (Auto) [place] % (Auto) Eos % (Auto) Baso % (Auto) Neut # (Auto) Lymph # (Auto) [place] # (Auto) Eos # (Auto) Baso # (Auto) Neutrophils % (Manual) Band Neutrophils % Lymphocytes % (Manual) Monocytes % (Manual) Eosinophils % (Manual) Platelet Estimate RBC Morphology PT 13.0 INR 1.2 APTT 28.6 pO2 54 VBG pH 7.49 H VBG pCO2 38 L VBG HCO3 28.9 VBG Total CO2 30.2 H VBG O2 Sat (Calc) 95.4 H VBG Base Excess 5.4 H VBG Potassium 3.2 L Glucose 156 H Lactate 2.5 H FiO2 21.0 Sodium 137.0 Potassium Chloride 103.0 Carbon Dioxide Anion Gap BUN Creatinine Est GFR ( Amer) Est GFR (Non-Af Amer) POC Glucose (mg/dL) Random Glucose Lactic Acid 2.4 H Calcium Phosphorus Magnesium Total Bilirubin AST ALT Alkaline Phosphatase Troponin I Total Protein Albumin Globulin Albumin/Globulin Ratio Venous Blood Potassium 3.2 L Urine Color Urine Clarity Urine pH Ur Specific [place] Urine Protein Urine Glucose (UA) Urine Ketones Urine Blood Urine Nitrate Urine Bilirubin Urine Urobilinogen Ur Leukocyte Esterase Urine RBC (Auto) Urine Microscopic WBC Ur Squamous Epith Cells Urine Bacteria Hyaline Casts 07/16/17 07/16/17 07/17/17 16:50 20:14 05:37 WBC 8.2 D RBC 4.42 Hgb 12.5 Hct 38.3 MCV 86.6 MCH 28.3 MCHC 32.7 L RDW 16.2 H Plt Count 113 L MPV 10.4 Neut % (Auto) 82.2 H Lymph % (Auto) 8.4 L [place] % (Auto) 8.2 Eos % (Auto) 0.7 Baso % (Auto) 0.5 Neut # (Auto) 6.7 Lymph # (Auto) 0.7 L [place] # (Auto) 0.7 Eos # (Auto) 0.1 Baso # (Auto) 0.0 Neutrophils % (Manual) Band Neutrophils % Lymphocytes % (Manual) Monocytes % (Manual) Eosinophils % (Manual) Platelet Estimate RBC Morphology PT INR APTT pO2 53 VBG pH 7.43 VBG pCO2 45 VBG HCO3 28.4 VBG Total CO2 31.3 H VBG O2 Sat (Calc) 92.2 H VBG Base Excess 4.8 H VBG Potassium 3.1 L Glucose 151 H Lactate 1.5 FiO2 21.0 Sodium 137.0 Potassium Chloride 103.0 Carbon Dioxide Anion Gap BUN Creatinine Est GFR ( Amer) Est GFR (Non-Af Amer) POC Glucose (mg/dL) Random Glucose Lactic Acid Calcium Phosphorus Magnesium Total Bilirubin AST ALT Alkaline Phosphatase Troponin I Total Protein Albumin Globulin Albumin/Globulin Ratio Venous Blood Potassium 3.1 L Urine Color [place] Urine Clarity Cloudy Urine pH 6.0 Ur Specific [place] 1.024 Urine Protein 100 Urine Glucose (UA) Neg Urine Ketones Negative Urine Blood Negative Urine Nitrate Negative Urine Bilirubin Small Urine Urobilinogen 4.0 H Ur Leukocyte Esterase Neg Urine RBC (Auto) 4 H Urine Microscopic WBC 4 Ur Squamous Epith Cells 2 Urine Bacteria Rare Hyaline Casts 0-2 07/17/17 05:37 WBC RBC Hgb Hct MCV MCH MCHC RDW Plt Count MPV Neut % (Auto) Lymph % (Auto) [place] % (Auto) Eos % (Auto) Baso % (Auto) Neut # (Auto) Lymph # (Auto) [place] # (Auto) Eos # (Auto) Baso # (Auto) Neutrophils % (Manual) Band Neutrophils % Lymphocytes % (Manual) Monocytes % (Manual) Eosinophils % (Manual) Platelet Estimate RBC Morphology PT INR APTT pO2 VBG pH VBG pCO2 VBG HCO3 VBG Total CO2 VBG O2 Sat (Calc) VBG Base Excess VBG Potassium Glucose Lactate FiO2 Sodium 144 Potassium 3.3 L Chloride 101 Carbon Dioxide 29 Anion Gap 17 BUN 8 Creatinine 0.3 L Est GFR ( Amer) > 60 Est GFR (Non-Af Amer) > 60 POC Glucose (mg/dL) Random Glucose 92 Lactic Acid Calcium 8.8 Phosphorus Magnesium Total Bilirubin 3.6 H AST 762 H D ALT 650 H Alkaline Phosphatase 289 H Troponin I Total Protein 6.8 Albumin 3.4 L Globulin 3.5 Albumin/Globulin Ratio 1.0 Venous Blood Potassium Urine Color Urine Clarity Urine pH Ur Specific [place] Urine Protein Urine Glucose (UA) Urine Ketones Urine Blood Urine Nitrate Urine Bilirubin Urine Urobilinogen Ur Leukocyte Esterase Urine RBC (Auto) Urine Microscopic WBC Ur Squamous Epith Cells Urine Bacteria Hyaline Casts Assessment & Plan (1) Cholecystitis Status: Acute (2) Sepsis Status: Acute Priority: High (3) Abdominal pain Status: Acute Priority: High (4) Dementia Status: Acute (5) Depression Status: Acute - Assessment and Plan (Free Text) Assessment: with a PMH of HTN, HLD, Seizures, Dementia, Depression, COPD, s/p left hip ORIF came to the ED for abdominal pain and found to have positive blood cultures Was found to have distended GB on CT scan had cholecystostomy drainage 1 month ago awaiting MRCP/ HIDA scan empiric IV antibiotics in progress
[2017-07-17] MEDS: Dextrose 5%/0.45% NS 1,000 ML IV SCH (15:15)
--- NOTE | 2017-07-17 15:45 | CP.PCM.HP ---
History of Present Illness - History of Present Illness History of Present Illness: CC: Fever/ Abdominal pain. 82 y/o F, with multiple chronic medical conditions, resident at [facility], brought to ER [facility], [place] by EMS to be evaluated for high fever , 103.1F while at the ED, tachycardia (HR 138), onset DOA, associated symptoms , Lethargic, apparently having abdominal pain while evaluated in the ER. Worsening symptoms: Advance dementia, recently discharged from [facility] after been Tx for Acute Cholecystitis with Cholecystectomy tube placement and Sepsis on 06/19. Aggravated factor: Inability to speak or understand. Hx of present illness taken from hospital record and NH. No vomiting, syncope, SOB, cough, CP, sick contact. CXR shows: No focal infiltrate, no CHF, Cardiomegaly. EKG: Sinus tachycardia (HR. 136), possible L atrial enlargement. Cannot rule out inferior infarct, age undetermined. GB U-S: Fatty infiltration of the Liver, no focal Liver mass or intrahepatic ductal dilatation. Abd/Pelv CT: Diffusely thickened of the GB wall, could be due to acute Liver disease, such as Hepatitis, early acute Cholecystitis not excluded. Present on Admission - Present on Admission Any Indicators Present on Admission: No Review of Systems - Review of Systems Systems not reviewed;Unavailable: Acuity of Condition, Dementia, Altered Mental Status Past Patient History - Infectious Disease Hx of Infectious Diseases: None - Past Medical History & Family History Past Medical History?: Yes Pertinent Family History: Unknown - Past Social History Smoking Status: Never Smoked Chewing Tobacco Use: No Cigar Use: No Alcohol: None Home Situation {Lives}: Shelter - CARDIAC Hx Cardiac Disorders: Yes Hx Congestive Heart Failure: Yes Hx Hypercholesterolemia: Yes Hx Hypertension: Yes - PULMONARY Hx Respiratory Disorders: Yes Hx Asthma: Yes Hx Chronic Obstructive Pulmonary Disease (COPD): Yes - NEUROLOGICAL Hx Neurological Disorder: Yes Hx Dementia: Yes Hx Seizures: Yes - HEENT Hx HEENT Problems: No - RENAL Hx Chronic Kidney Disease: No - ENDOCRINE/METABOLIC Hx Endocrine Disorders: No - HEMATOLOGICAL/ONCOLOGICAL Hx Blood Disorders: Yes Hx Anemia: Yes Hx Human Immunodeficiency Virus (HIV): No - INTEGUMENTARY Hx Dermatological Problems: No - MUSCULOSKELETAL/RHEUMATOLOGICAL Hx Musculoskeletal Disorders: Yes Hx Arthritis: Yes (poly) Hx Fractures: Yes (L wrist , comp Fx T Spine) Hx Osteoporosis: Yes - GASTROINTESTINAL Hx Gastrointestinal Disorders: Yes Hx Constipation: Yes - GENITOURINARY/GYNECOLOGICAL Hx Genitourinary Disorders: Yes Hx Incontinence: Yes - PSYCHIATRIC Hx Psychophysiologic Disorder: Yes Hx Anxiety: Yes Hx Depression: Yes - SURGICAL HISTORY Hx Surgeries: Yes Hx Coronary Artery Bypass Graft: Yes - ANESTHESIA Hx Anesthesia: Yes Hx Anesthesia Reactions: No Hx Malignant Hyperthermia: No Meds Allergies/Adverse Reactions: Allergies Allergy/AdvReac Type Severity Reaction Status Date / Time Penicillins Allergy RASH Verified 05/25/17 12:15 Physical Exam - Constitutional Appears: Confused, Chronically Ill - Head Exam Head Exam: NORMAL INSPECTION - Eye Exam Eye Exam: PERRL - ENT Exam Additional comments: Hard of hearing L ear. - Neck Exam Neck exam: Positive for: Normal Inspection - Respiratory Exam Respiratory Exam: Decreased Breath Sounds (at bases) - Cardiovascular Exam Cardiovascular Exam: REGULAR RHYTHM - GI/Abdominal Exam GI & Abdominal Exam: Diminished Bowel Sounds, Soft, Tenderness (mild on palpation) - Extremities Exam Additional comments: Scar from L hip and lateral thigh sx. - Back Exam Back exam: tenderness (mild) - Neurological Exam Additional comments: Confused, forgetful, no focal motor sensory deficit, generalized weakness. - Psychiatric Exam Additional comments: Calm. - Skin Skin Exam: Warm Results - Vital Signs Recent Vital Signs: Last Vital Signs Temp 98.6 F 07/17/17 12:00 Pulse 101 H 07/17/17 14:00 Resp 20 07/17/17 14:00 BP 164/76 H 07/17/17 14:00 Pulse Ox 100 07/17/17 15:13 reviewed J.P. - Labs Result Diagrams: 07/19/17 04:30 07/19/17 04:30 Labs: Laboratory Results - last 24 hr 07/16/17 07/16/17 07/16/17 16:20 16:25 16:25 WBC 4.5 L RBC 4.69 Hgb 13.4 D Hct 40.4 MCV 86.3 MCH 28.7 MCHC 33.2 RDW 16.0 H Plt Count 116 L D MPV 9.6 Neut % (Auto) 93.5 H Lymph % (Auto) 2.3 L [place] % (Auto) 3.7 Eos % (Auto) 0.2 Baso % (Auto) 0.3 Neut # (Auto) 4.2 Lymph # (Auto) 0.1 L [place] # (Auto) 0.2 Eos # (Auto) 0.0 Baso # (Auto) 0.0 Neutrophils % (Manual) 90 H Band Neutrophils % 1 Lymphocytes % (Manual) 5 L Monocytes % (Manual) 3 Eosinophils % (Manual) 1 Platelet Estimate Slightly decreased L RBC Morphology Normal PT INR APTT pO2 VBG pH VBG pCO2 VBG HCO3 VBG Total CO2 VBG O2 Sat (Calc) VBG Base Excess VBG Potassium Glucose Lactate FiO2 Sodium 141 Potassium 3.2 L Chloride 98 Carbon Dioxide 28 Anion Gap 18 BUN 8 Creatinine 0.3 L Est GFR ( Amer) > 60 Est GFR (Non-Af Amer) > 60 POC Glucose (mg/dL) 144 H Random Glucose 159 H Lactic Acid Calcium 9.4 Phosphorus 2.2 L Magnesium 1.8 Total Bilirubin 2.2 H AST 1437 H ALT 787 H D Alkaline Phosphatase 334 H D Troponin I < 0.0120 Total Protein 7.2 Albumin 3.7 Globulin 3.5 Albumin/Globulin Ratio 1.1 Venous Blood Potassium Urine Color Urine Clarity Urine pH Ur Specific [place] Urine Protein Urine Glucose (UA) Urine Ketones Urine Blood Urine Nitrate Urine Bilirubin Urine Urobilinogen Ur Leukocyte Esterase Urine RBC (Auto) Urine Microscopic WBC Ur Squamous Epith Cells Urine Bacteria Hyaline Casts 07/16/17 07/16/17 07/16/17 16:25 16:25 16:33 WBC RBC Hgb Hct MCV MCH MCHC RDW Plt Count MPV Neut % (Auto) Lymph % (Auto) [place] % (Auto) Eos % (Auto) Baso % (Auto) Neut # (Auto) Lymph # (Auto) [place] # (Auto) Eos # (Auto) Baso # (Auto) Neutrophils % (Manual) Band Neutrophils % Lymphocytes % (Manual) Monocytes % (Manual) Eosinophils % (Manual) Platelet Estimate RBC Morphology PT 13.0 INR 1.2 APTT 28.6 pO2 54 VBG pH 7.49 H VBG pCO2 38 L VBG HCO3 28.9 VBG Total CO2 30.2 H VBG O2 Sat (Calc) 95.4 H VBG Base Excess 5.4 H VBG Potassium 3.2 L Glucose 156 H Lactate 2.5 H FiO2 21.0 Sodium 137.0 Potassium Chloride 103.0 Carbon Dioxide Anion Gap BUN Creatinine Est GFR ( Amer) Est GFR (Non-Af Amer) POC Glucose (mg/dL) Random Glucose Lactic Acid 2.4 H Calcium Phosphorus Magnesium Total Bilirubin AST ALT Alkaline Phosphatase Troponin I Total Protein Albumin Globulin Albumin/Globulin Ratio Venous Blood Potassium 3.2 L Urine Color Urine Clarity Urine pH Ur Specific [place] Urine Protein Urine Glucose (UA) Urine Ketones Urine Blood Urine Nitrate Urine Bilirubin Urine Urobilinogen Ur Leukocyte Esterase Urine RBC (Auto) Urine Microscopic WBC Ur Squamous Epith Cells Urine Bacteria Hyaline Casts 07/16/17 07/16/17 07/17/17 16:50 20:14 05:37 WBC 8.2 D RBC 4.42 Hgb 12.5 Hct 38.3 MCV 86.6 MCH 28.3 MCHC 32.7 L RDW 16.2 H Plt Count 113 L MPV 10.4 Neut % (Auto) 82.2 H Lymph % (Auto) 8.4 L [place] % (Auto) 8.2 Eos % (Auto) 0.7 Baso % (Auto) 0.5 Neut # (Auto) 6.7 Lymph # (Auto) 0.7 L [place] # (Auto) 0.7 Eos # (Auto) 0.1 Baso # (Auto) 0.0 Neutrophils % (Manual) Band Neutrophils % Lymphocytes % (Manual) Monocytes % (Manual) Eosinophils % (Manual) Platelet Estimate RBC Morphology PT INR APTT pO2 53 VBG pH 7.43 VBG pCO2 45 VBG HCO3 28.4 VBG Total CO2 31.3 H VBG O2 Sat (Calc) 92.2 H VBG Base Excess 4.8 H VBG Potassium 3.1 L Glucose 151 H Lactate 1.5 FiO2 21.0 Sodium 137.0 Potassium Chloride 103.0 Carbon Dioxide Anion Gap BUN Creatinine Est GFR ( Amer) Est GFR (Non-Af Amer) POC Glucose (mg/dL) Random Glucose Lactic Acid Calcium Phosphorus Magnesium Total Bilirubin AST ALT Alkaline Phosphatase Troponin I Total Protein Albumin Globulin Albumin/Globulin Ratio Venous Blood Potassium 3.1 L Urine Color Mai Urine Clarity Cloudy Urine pH 6.0 Ur Specific [place] 1.024 Urine Protein 100 Urine Glucose (UA) Neg Urine Ketones Negative Urine Blood Negative Urine Nitrate Negative Urine Bilirubin Small Urine Urobilinogen 4.0 H Ur Leukocyte Esterase Neg Urine RBC (Auto) 4 H Urine Microscopic WBC 4 Ur Squamous Epith Cells 2 Urine Bacteria Rare Hyaline Casts 0-2 07/17/17 05:37 WBC RBC Hgb Hct MCV MCH MCHC RDW Plt Count MPV Neut % (Auto) Lymph % (Auto) [place] % (Auto) Eos % (Auto) Baso % (Auto) Neut # (Auto) Lymph # (Auto) [place] # (Auto) Eos # (Auto) Baso # (Auto) Neutrophils % (Manual) Band Neutrophils % Lymphocytes % (Manual) Monocytes % (Manual) Eosinophils % (Manual) Platelet Estimate RBC Morphology PT INR APTT pO2 VBG pH VBG pCO2 VBG HCO3 VBG Total CO2 VBG O2 Sat (Calc) VBG Base Excess VBG Potassium Glucose Lactate FiO2 Sodium 144 Potassium 3.3 L Chloride 101 Carbon Dioxide 29 Anion Gap 17 BUN 8 Creatinine 0.3 L Est GFR ( Amer) > 60 Est GFR (Non-Af Amer) > 60 POC Glucose (mg/dL) Random Glucose 92 Lactic Acid Calcium 8.8 Phosphorus Magnesium Total Bilirubin 3.6 H AST 762 H D ALT 650 H Alkaline Phosphatase 289 H Troponin I Total Protein 6.8 Albumin 3.4 L Globulin 3.5 Albumin/Globulin Ratio 1.0 Venous Blood Potassium Urine Color Urine Clarity Urine pH Ur Specific [place] Urine Protein Urine Glucose (UA) Urine Ketones Urine Blood Urine Nitrate Urine Bilirubin Urine Urobilinogen Ur Leukocyte Esterase Urine RBC (Auto) Urine Microscopic WBC Ur Squamous Epith Cells Urine Bacteria Hyaline Casts reviewed J.P. - EKG Data EKG comments: reviewed J.P. - Imaging and Cardiology Chest x-ray Status: Report reviewed by me (J.P.) CT scan - abdomen Status: Report reviewed by me (J.P.) CT scan - pelvis Status: Report reviewed by me (J.P.) Additional comment: CRISTIANA Do-Bozena reviewed KEVIN. Assessment & Plan (1) Acute cholecystitis Status: Acute Priority: High (2) Sepsis Status: Acute Priority: High (3) Dementia Status: Chronic Priority: High (4) HTN (hypertension) Status: Acute Priority: Medium (5) Chronic back pain Status: Chronic Priority: Medium (6) Seizure Status: Chronic Priority: Medium (7) Generalized weakness Status: Chronic Priority: High (8) COPD (chronic obstructive pulmonary disease) Status: Chronic Priority: Medium - Assessment and Plan (Free Text) Plan: 2 Blood C-S were + for Gram Negative Tomas, F/U U C-S, MRCP/HIDA scan, continue Aztreonam, Cipro, Flagyl, Nitro-Dur patch, Morphine , and rest of Tx, ID and Surgeon consult appreciated. - Date & Time Date: 07/17/17 Time: 14:20
[2017-07-17] MEDS: Aztreonam 2 GM in Sodium Chloride 0.9% 100 ML IVPB SCH (17:13)
[2017-07-18] MEDS: Aztreonam 2 GM in Sodium Chloride 0.9% 100 ML IVPB SCH ×3 (01:00→17:15)
[2017-07-18] MEDS: metroNIDAZOLE 500mg/100ml NS 100 ML IVPB SCH ×3 (02:00→17:16)
[2017-07-18] MEDS: Dextrose 5%/0.45% NS 1,000 ML IV SCH (03:45)
[2017-07-18 05:24] LABS: BASO % 0.6 % (0.0-2.0); EOS # 0.2 K/uL (0.0-0.7); EOS % 2.7 % (0.0-4.0); HEMOGLOBIN 12.7 g/dL (12.0-16.0); LYMPH # 0.4 K/uL (1.0-4.3); LYMPH % 6.9 % (20.0-40.0); MEAN CELL VOLUME 86.7 fl (81.0-99.0); MEAN CORPUSCULAR HEMOGLOBIN 28.6 pg (27.0-31.0); MEAN CORPUSCULAR HGB CONC 32.9 g/dL (33.0-37.0); MEAN PLATELET VOLUME 9.7 fl (7.2-11.7); MONO # 0.6 K/uL (0.0-0.8); MONO % 11.1 % (0.0-10.0); NEUT # 4.5 K/uL (1.8-7.0); NEUT % 78.7 % (50.0-75.0); NRBC % 0.2 % (0.0-0.0); RBC 4.45 Mil/uL (3.80-5.20); RED CELL DISTRIBUTION WIDTH 16.1 % (11.5-14.5); WHITE BLOOD COUNT 5.8 K/uL (4.8-10.8)
[2017-07-18 05:31] LABS: ALBUMIN 3.3 g/dL (3.5-5.0); ALT/SGPT 352 U/L (9-52); AST/SGOT 261 U/L (14-36); BLOOD UREA NITROGEN 3 mg/dl (7-17); CALCIUM 9.3 mg/dL (8.4-10.2); GFR AFRICAN-AMERICAN > 60; GFR NON-AFRICAN AMERICAN > 60
--- NOTE | 2017-07-18 07:39 | CP.CCUPN ---
CCU Subjective - Physician Review Events Since Last Encounter (Free Text): 07/18/17 15:35 The patient was Seen/interviewed and examined by me at the bedside during ICU round, Medical records reviewed and Management issues were discussed and formulated with the house staff. Events reviewed Pt is a 82 Years old Female with PMHx of Asthma, Back Problems, CHF, COPD, Dementia, Depression, Fractures (L wrist , comp Fx T Spine), HTN, Hypercholesterolemia, Osteoporosis, Seizures, Anemia, Anxiety and Arthritis ( poly) Who was sent to ER from [place] on 07/16 due to fever and AMS, she had fever of 103 in ER. She was last admitted on 05/25/17 for abdominal pain with Dx of acute Cholecystitis and treated with Cholecystostomy tube placment done. In the ED she was awake, has unintelligible speech, but appeared to understand spoken word, indicating that she has abdominal pain, more at the LLQ and RUQ. Her Temperature was 103.0F; HR 136/min and RR 25/min. Scheduled for HIDA scan and MRCP today Alert, follows some commands Denies any chest pain, SOB or Palpitations Afebrile, NSR on the monitor Last 24H I&O 2675/00 CCU Objective - Vital Signs / Intake & Output Vital Signs (Last 4 hours): Vital Signs Temp Pulse Resp BP Pulse Ox 07/18/17 06:00 90 16 129/55 L 100 07/18/17 04:00 98.5 F 110 H 14 122/92 H 100 Intake and Output (Last 8hrs): Intake & Output 07/17/17 07/18/17 07/18/17 22:59 06:59 14:59 Intake Total 1825 650 Output Total 2 Balance 1825 648 Intake: IV 1425 450 Intake, Piggyback 400 200 Output: Urine/Stool Mix 2 Other: # Bowel Movements 1 - Physical Exam Physical Exam Limitations: Positive for: Altered Mental Status Head: Positive for: Atraumatic, Normocephalic. Negative for: Tenderness, Contusion Pupils: Positive for: PERRL. Negative for: Sluggish Extroacular Muscles: Positive for: EOMI Conjunctiva: Positive for: Normal Ears: Positive for: Normal Mouth: Positive for: Moist Mucous Membranes Nose (Internal): Positive for: Normal Inspection Respiratory/Chest: Positive for: Clear to Auscultation, Good Air Exchange. Negative for: Respiratory Distress, Accessory Muscle Use Cardiovascular: Positive for: Regular Rate and Rhythm, Normal S1, S2, Peripheal Pulses Present. Negative for: Murmurs Abdomen: Positive for: Normal Bowel Sounds. Negative for: Tenderness, Distention, Peritoneal Signs, Rebound - Medications Active Medications: Active Medications Generic Name Dose Route Start Last Admin Trade Name Freq PRN Reason Stop Dose Admin Acetaminophen 975 mg 07/16/17 16:15 07/16/17 16:40 Tylenol 325 Mg Supp TX 975 mg ONCE PRN Administration Fever >100.4 F Acetaminophen 650 mg 07/16/17 21:18 Tylenol 650 Mg Supp TX Q6 PRN Fever >100.4 F Albuterol/Ipratropium 3 ml 07/16/17 22:04 Duoneb 3 Mg/0.5 Mg (3 Ml) Ud INH RQ6 PRN Shortness of Breath Metronidazole 100 mls @ 100 mls/hr 07/17/17 01:00 07/18/17 02:00 Flagyl 500mg/100ml Ns IVPB 100 mls/hr Q8 BELLE Administration Protocol Ciprofloxacin 400 mg in 200 mls @ 200 mls/hr 07/16/17 21:15 07/17/17 20:28 Cipro 400mg/200ml Dsw IVPB 200 mls/hr Q12 BELLE Administration Protocol Dextrose/Sodium Chloride 1,000 mls @ 75 mls/hr 07/17/17 13:45 07/18/17 03:45 Dextrose 5%/0.45% Ns 1000 Ml IV 07/18/17 13:35 Not Given .[id number] BELLE Aztreonam 2 gm/ Sodium 100 mls @ 100 mls/hr 07/17/17 17:00 07/18/17 01:00 Chloride IVPB 100 mls/hr Q8 BELLE Administration Protocol Morphine Sulfate 4 mg 07/16/17 21:26 Morphine IVP Q6 PRN Pain, severe (8-10) Morphine Sulfate 2 mg 07/16/17 21:26 07/17/17 10:53 Morphine IVP 2 mg Q6 PRN Administration Pain, moderate (4-7) Nitroglycerin 1 patch 07/17/17 09:00 07/17/17 10:46 Nitro-Dur 0.2 Mg/Hr Patch TD 1 patch DAILY BELLE Administration Fluticasone/Salmeterol 1 puff 07/16/17 21:30 07/17/17 20:29 Advair Diskus 500/50 INH 1 puff Q12H BELLE Administration - Patient Studies Lab Studies: Microbiology Studies 07/16/17 16:25 Blood Culture - Preliminary Blood-Venous Gram Negative Tomas Gram Stain - Final 07/16/17 16:30 Blood Culture - Preliminary Blood-Venous Gram Negative Tomas Gram Stain - Final Lab Studies 07/18/17 07/18/17 07/17/17 Range/Units 04:40 04:40 05:37 WBC 5.8 (4.8-10.8) K/uL RBC 4.45 (3.80-5.20) Mil/uL Hgb 12.7 (12.0-16.0) g/dL Hct 38.6 (34.0-47.0) % MCV 86.7 (81.0-99.0) fl MCH 28.6 (27.0-31.0) pg MCHC 32.9 L (33.0-37.0) g/dL RDW 16.1 H (11.5-14.5) % Plt Count 97 L (130-400) K/uL MPV 9.7 (7.2-11.7) fl Neut % (Auto) 78.7 H (50.0-75.0) % Lymph % (Auto) 6.9 L (20.0-40.0) % [place] % (Auto) 11.1 H (0.0-10.0) % Eos % (Auto) 2.7 (0.0-4.0) % Baso % (Auto) 0.6 (0.0-2.0) % Neut # (Auto) 4.5 (1.8-7.0) K/uL Lymph # (Auto) 0.4 L (1.0-4.3) K/uL [place] # (Auto) 0.6 (0.0-0.8) K/uL Eos # (Auto) 0.2 (0.0-0.7) K/uL Baso # (Auto) 0.0 (0.0-0.2) K/uL Sodium 143 (132-148) mmol/l Potassium 2.8 L (3.6-5.0) MMOL/L Chloride 99 (98-107) mmol/L Carbon Dioxide 28 (22-30) mmol/L Anion Gap 19 (10-20) BUN 3 L (7-17) mg/dl Creatinine 0.3 L (0.7-1.2) mg/dl Est GFR ( Amer) > 60 Est GFR (Non-Af Amer) > 60 Random Glucose 106 H (65-105) mg/dL Calcium 9.3 (8.4-10.2) mg/dL Total Bilirubin 1.6 H (0.2-1.3) mg/dl AST 261 H D 762 H D (14-36) U/L ALT 352 H D (9-52) U/L Alkaline Phosphatase 224 H D (38-126) U/L Total Protein 6.5 (6.3-8.2) G/DL Albumin 3.3 L (3.5-5.0) g/dL Globulin 3.2 (2.2-3.9) gm/dL Albumin/Globulin Ratio 1.0 (1.0-2.1) Laboratory Results - last 24 hr 07/17/17 07/18/17 07/18/17 05:37 04:40 04:40 WBC 5.8 RBC 4.45 Hgb 12.7 Hct 38.6 MCV 86.7 MCH 28.6 MCHC 32.9 L RDW 16.1 H Plt Count 97 L MPV 9.7 Neut % (Auto) 78.7 H Lymph % (Auto) 6.9 L [place] % (Auto) 11.1 H Eos % (Auto) 2.7 Baso % (Auto) 0.6 Neut # (Auto) 4.5 Lymph # (Auto) 0.4 L [place] # (Auto) 0.6 Eos # (Auto) 0.2 Baso # (Auto) 0.0 Sodium 143 Potassium 2.8 L Chloride 99 Carbon Dioxide 28 Anion Gap 19 BUN 3 L Creatinine 0.3 L Est GFR ( Amer) > 60 Est GFR (Non-Af Amer) > 60 Random Glucose 106 H Calcium 9.3 Total Bilirubin 1.6 H AST 762 H D 261 H D ALT 352 H D Alkaline Phosphatase 224 H D Total Protein 6.5 Albumin 3.3 L Globulin 3.2 Albumin/Globulin Ratio 1.0 Fingerstick Blood Sugar Results: 144 Review of Systems - Review of Systems Systems not reviewed;Unavailable: Uncooperative - Cardiovascular Cardiovascular: absent: Chest Pain, Chest Pain at Rest, Chest Pain with Activity , Claudication, Diaphoresis - Respiratory Respiratory: absent: Cough, Dyspnea, Hemoptysis, Dyspnea on Exertion, Wheezing - Gastrointestinal Gastrointestinal: Abdominal Pain. absent: Hematemesis, Melena, Nausea, Vomiting Critical Care Progress Note - Extremities/Vascular Does the Patient have a Central Venous Catheter?: No Does the Patient need a Central Venous Catheter?: No Does the Patient have a De [place] Cruz Catheter?: No Does the Patient need a De [place] Cruz Catheter?: No - Nutrition Nutrition: Nutrition Category Date Time Status NPO Diet [DIET] Diets 07/16/17 Dinner Active Assessment/Plan (1) Acute cholecystitis Current Visit: Yes Status: Acute Priority: High Comment: NPO IV fluids Continue Antibiotics vamshi Aztreonam, Ciprofloxacin and Flagyl Follow Blood and urine cultures Pain control with Tylenol anf Morphine 4 mg IVP Q6 PRN Sc heduled for MRCP to r/o choledocholithiasis (2) Abdominal pain Current Visit: Yes Status: Acute Priority: High (3) Severe sepsis Current Visit: Yes Status: Acute (4) Proctitis Current Visit: Yes Status: Acute (5) Hypokalemia Current Visit: Yes Status: Acute
[2017-07-18 07:53] LABS: HEPATITIS B SURFACE AG Negative (NEGATIVE)
[2017-07-18 07:59] LABS: HEPATITIS A IGM NEGATIVE (NEGATIVE); HEPATITIS B CORE AB NEGATIVE (NEGATIVE)
[2017-07-18 08:11] LABS: HEPATITIS C ANTIBODY NEGATIVE (NEGATIVE)
[2017-07-18] MEDS: Ciprofloxacin 400mg/200ml D5W 400 MG/200 ML BAG IVPB SCH ×2 (09:46→20:26)
[2017-07-18] MEDS: Nitroglycerin 0.2 mg/hr Top Patch TD SCH (09:47)
--- NOTE | 2017-07-18 10:46 | CP.PCM.PN ---
Subjective - Date & Time of Evaluation Date of Evaluation: 07/18/17 Time of Evaluation: 08:00 - Subjective Subjective: weak lethargic afebrile NAD Objective - Vital Signs/Intake and Output Vital Signs (last 24 hours): Temp Pulse Resp BP Pulse Ox 98.5 F 100 H 16 130/60 100 07/18/17 04:00 07/18/17 09:47 07/18/17 06:00 07/18/17 09:47 07/18/17 06:00 Intake and Output: 07/18/17 07/18/17 06:59 18:59 Intake Total 1075 Output Total 2 Balance 1073 - Medications Medications: Current Medications Acetaminophen (Tylenol 325 Mg Supp) 975 mg NM ONCE PRN PRN Reason: Fever >100.4 F Last Admin: 07/16/17 16:40 Dose: 975 mg Acetaminophen (Tylenol 650 Mg Supp) 650 mg NM Q6 PRN PRN Reason: Fever >100.4 F Albuterol/Ipratropium (Duoneb 3 Mg/0.5 Mg (3 Ml) Ud) 3 ml INH RQ6 PRN PRN Reason: Shortness of Breath Albuterol/Ipratropium (Duoneb 3 Mg/0.5 Mg (3 Ml) Ud) 3 ml INH RTID BELLE Metronidazole (Flagyl 500mg/100ml Ns) 100 mls @ 100 mls/hr IVPB Q8 BELLE PRN Reason: Protocol Last Admin: 07/18/17 09:45 Dose: 100 mls/hr Ciprofloxacin (Cipro 400mg/200ml Dsw) 400 mg in 200 mls @ 200 mls/hr IVPB Q12 BELLE PRN Reason: Protocol Last Admin: 07/18/17 09:46 Dose: 200 mls/hr Dextrose/Sodium Chloride (Dextrose 5%/0.45% Ns 1000 Ml) 1,000 mls @ 75 mls/hr IV .[id number] BELLE Stop: 07/18/17 13:35 Last Admin: 07/18/17 03:45 Dose: Not Given Aztreonam 2 gm/ Sodium (Chloride) 100 mls @ 100 mls/hr IVPB Q8 BELLE PRN Reason: Protocol Last Admin: 07/18/17 01:00 Dose: 100 mls/hr Morphine Sulfate (Morphine) 4 mg IVP Q6 PRN PRN Reason: Pain, severe (8-10) Morphine Sulfate (Morphine) 2 mg IVP Q6 PRN PRN Reason: Pain, moderate (4-7) Last Admin: 07/18/17 09:41 Dose: 2 mg Nitroglycerin (Nitro-Dur 0.2 Mg/Hr Patch) 1 patch TD DAILY BELLE Last Admin: 07/18/17 09:47 Dose: 1 patch - Labs Labs: 07/18/17 04:40 07/18/17 04:40 PT 13.0 Seconds (9.8-13.1) 07/16/17 16:25 INR 1.2 (0.9-1.2) 07/16/17 16:25 APTT 28.6 Seconds (25.6-37.1) 07/16/17 16:25 - Constitutional Appears: Confused, Cachectic, Chronically Ill - Head Exam Head Exam: NORMOCEPHALIC - Eye Exam Eye Exam: PERRL. absent: Scleral icterus - ENT Exam ENT Exam: Mucous Membranes Dry - Neck Exam Neck Exam: absent: Lymphadenopathy - Respiratory Exam Respiratory Exam: Decreased Breath Sounds - Cardiovascular Exam Cardiovascular Exam: REGULAR RHYTHM, +S1, +S2 - GI/Abdominal Exam GI & Abdominal Exam: Distended, Soft, Tenderness - Rectal Exam Rectal Exam: Deferred - Exam Exam: NORMAL INSPECTION - Extremities Exam Extremities Exam: absent: Calf Tenderness, Pedal Edema, Tenderness - Back Exam Back Exam: absent: CVA tenderness (L), CVA tenderness (R) - Neurological Exam Neurological Exam: Alert, Altered, Awake, CN II-XII Intact Assessment and Plan (1) Cholecystitis Status: Acute (2) Sepsis Status: Acute (3) Abdominal pain Status: Acute (4) Dementia Status: Acute (5) Depression Status: Acute - Assessment and Plan (Free Text) Assessment: sepsis/ gram neg bacteremia acute cholecystitis surgery on board- may need cholecystectomy cont iv rx
--- NOTE | 2017-07-18 11:00 | CP.PCM.PN ---
<Nikhil Pa - Last Filed: 07/18/17 11:01> Subjective - Date & Time of Evaluation Date of Evaluation: 07/18/17 Time of Evaluation: 07:20 - Subjective Subjective: Patient seen and examined. No acute events over night. Patient denies abdominal pain, nausea/vomiting. LFTs trending down. Objective - Vital Signs/Intake and Output Vital Signs (last 24 hours): Temp Pulse Resp BP Pulse Ox 98.5 F 100 H 16 130/60 100 07/18/17 04:00 07/18/17 09:47 07/18/17 06:00 07/18/17 09:47 07/18/17 06:00 Intake and Output: 07/18/17 07/18/17 06:59 18:59 Intake Total 1075 Output Total 2 Balance 1073 - Medications Medications: Current Medications Acetaminophen (Tylenol 325 Mg Supp) 975 mg ME ONCE PRN PRN Reason: Fever >100.4 F Last Admin: 07/16/17 16:40 Dose: 975 mg Acetaminophen (Tylenol 650 Mg Supp) 650 mg [place] Q6 PRN PRN Reason: Fever >100.4 F Albuterol/Ipratropium (Duoneb 3 Mg/0.5 Mg (3 Ml) Ud) 3 ml INH RQ6 PRN PRN Reason: Shortness of Breath Albuterol/Ipratropium (Duoneb 3 Mg/0.5 Mg (3 Ml) Ud) 3 ml INH RTID BELLE Metronidazole (Flagyl 500mg/100ml Ns) 100 mls @ 100 mls/hr IVPB Q8 [facility] PRN Reason: Protocol Last Admin: 07/18/17 09:45 Dose: 100 mls/hr Ciprofloxacin (Cipro 400mg/200ml Dsw) 400 mg in 200 mls @ 200 mls/hr IVPB Q12 [facility] PRN Reason: Protocol Last Admin: 07/18/17 09:46 Dose: 200 mls/hr Dextrose/Sodium Chloride (Dextrose 5%/0.45% Ns 1000 Ml) 1,000 mls @ 75 mls/hr IV .[id number] [facility] Stop: 07/18/17 13:35 Last Admin: 07/18/17 03:45 Dose: Not Given Aztreonam 2 gm/ Sodium (Chloride) 100 mls @ 100 mls/hr IVPB Q8 [facility] PRN Reason: Protocol Last Admin: 07/18/17 01:00 Dose: 100 mls/hr Morphine Sulfate (Morphine) 4 mg IVP Q6 PRN PRN Reason: Pain, severe (8-10) Morphine Sulfate (Morphine) 2 mg IVP Q6 PRN PRN Reason: Pain, moderate (4-7) Last Admin: 07/18/17 09:41 Dose: 2 mg Nitroglycerin (Nitro-Dur 0.2 Mg/Hr Patch) 1 patch TD DAILY [facility] Last Admin: 07/18/17 09:47 Dose: 1 patch - Labs Labs: 07/18/17 04:40 07/18/17 04:40 PT 13.0 Seconds (9.8-13.1) 07/16/17 16:25 INR 1.2 (0.9-1.2) 07/16/17 16:25 APTT 28.6 Seconds (25.6-37.1) 07/16/17 16:25 - Constitutional Appears: No Acute Distress - Head Exam Head Exam: NORMOCEPHALIC - Eye Exam Eye Exam: Normal appearance - ENT Exam ENT Exam: Mucous Membranes Moist - Respiratory Exam Respiratory Exam: NORMAL BREATHING PATTERN - Cardiovascular Exam Cardiovascular Exam: +S1, +S2 - GI/Abdominal Exam GI & Abdominal Exam: Soft - Neurological Exam Neurological Exam: Alert, Awake, Oriented x3 - Psychiatric Exam Psychiatric exam: Normal Mood - Skin Skin Exam: Dry, Normal Color Assessment and Plan - Assessment and Plan (Free Text) Assessment: 82F w/ abdominal pain 2/2 cholecystitis Plan: -LFTs improving - NPO, IV fluids - pain control - Antibiotics per ID - F/u MRCP results - HIDA scan, If HIDA positive patient will require cholecystostomy tube - Patient is a poor surgical candidate Further recs per Dr. Elliot Mcmahon PGY2 <Josh Zarate - Last Filed: 07/18/17 12:24> Subjective - Date & Time of Evaluation Time of Evaluation: 11:30 - Subjective Subjective: Patient was seen and examined at the bedside. Agree with resident's note above. Objective - Vital Signs/Intake and Output Vital Signs (last 24 hours): Temp Pulse Resp BP Pulse Ox 98.5 F 100 H 16 130/60 100 07/18/17 04:00 07/18/17 09:47 07/18/17 06:00 07/18/17 09:47 07/18/17 06:00 Intake and Output: 07/18/17 07/18/17 06:59 18:59 Intake Total 1075 Output Total 2 Balance 1073 - Medications Medications: Current Medications Acetaminophen (Tylenol 325 Mg Supp) 975 mg ME ONCE PRN PRN Reason: Fever >100.4 F Last Admin: 07/16/17 16:40 Dose: 975 mg Acetaminophen (Tylenol 650 Mg Supp) 650 mg [place] Q6 PRN PRN Reason: Fever >100.4 F Albuterol/Ipratropium (Duoneb 3 Mg/0.5 Mg (3 Ml) Ud) 3 ml INH RQ6 PRN PRN Reason: Shortness of Breath Albuterol/Ipratropium (Duoneb 3 Mg/0.5 Mg (3 Ml) Ud) 3 ml INH RTID BELLE Metronidazole (Flagyl 500mg/100ml Ns) 100 mls @ 100 mls/hr IVPB Q8 [facility]LE PRN Reason: Protocol Last Admin: 07/18/17 09:45 Dose: 100 mls/hr Ciprofloxacin (Cipro 400mg/200ml Dsw) 400 mg in 200 mls @ 200 mls/hr IVPB Q12 [facility] PRN Reason: Protocol Last Admin: 07/18/17 09:46 Dose: 200 mls/hr Dextrose/Sodium Chloride (Dextrose 5%/0.45% Ns 1000 Ml) 1,000 mls @ 75 mls/hr IV .[id number] [facility] Stop: 07/18/17 13:35 Last Admin: 07/18/17 03:45 Dose: Not Given Aztreonam 2 gm/ Sodium (Chloride) 100 mls @ 100 mls/hr IVPB Q8 [facility] PRN Reason: Protocol Last Admin: 07/18/17 01:00 Dose: 100 mls/hr Morphine Sulfate (Morphine) 4 mg IVP Q6 PRN PRN Reason: Pain, severe (8-10) Morphine Sulfate (Morphine) 2 mg IVP Q6 PRN PRN Reason: Pain, moderate (4-7) Last Admin: 07/18/17 09:41 Dose: 2 mg Nitroglycerin (Nitro-Dur 0.2 Mg/Hr Patch) 1 patch TD DAILY [facility] Last Admin: 07/18/17 09:47 Dose: 1 patch - Labs Labs: 07/18/17 04:40 07/18/17 04:40 PT 13.0 Seconds (9.8-13.1) 07/16/17 16:25 INR 1.2 (0.9-1.2) 07/16/17 16:25 APTT 28.6 Seconds (25.6-37.1) 07/16/17 16:25 - GI/Abdominal Exam Additional comments: soft, NT, ND, BS+, no rebound, no guarding, negative Roland's sign Assessment and Plan - Assessment and Plan (Free Text) Plan: - NPO - IV fluids - Antibiotics - pain control - MRCP to r/o choledocholithiasis - Repeat lab sin am - Will follow
[2017-07-18] MEDS: Albuterol-Ipratrop 3 mg / 0.5 (3 ml) UD INH SCH ×2 (14:00→20:00)
--- NOTE | 2017-07-18 15:59 | CP.PCM.PN ---
Subjective - Date & Time of Evaluation Date of Evaluation: 07/18/17 Time of Evaluation: 10:40 - Subjective Subjective: F/U Acute Cholecystitis. Pt awake, confused, no specific complaint. Objective - Vital Signs/Intake and Output Vital Signs (last 24 hours): Temp Pulse Resp BP Pulse Ox 97.9 F 94 H 16 122/61 98 07/18/17 12:00 07/18/17 12:00 07/18/17 06:00 07/18/17 12:00 07/18/17 12:00 Intake and Output: 07/18/17 07/18/17 06:59 18:59 Intake Total 1075 Output Total 2 Balance 1073 - Medications Medications: Current Medications Acetaminophen (Tylenol 325 Mg Supp) 975 mg NE ONCE PRN PRN Reason: Fever >100.4 F Last Admin: 07/16/17 16:40 Dose: 975 mg Acetaminophen (Tylenol 650 Mg Supp) 650 mg NE Q6 PRN PRN Reason: Fever >100.4 F Albuterol/Ipratropium (Duoneb 3 Mg/0.5 Mg (3 Ml) Ud) 3 ml INH RQ6 PRN PRN Reason: Shortness of Breath Albuterol/Ipratropium (Duoneb 3 Mg/0.5 Mg (3 Ml) Ud) 3 ml INH RTID BELLE Metronidazole (Flagyl 500mg/100ml Ns) 100 mls @ 100 mls/hr IVPB Q8 [facility] PRN Reason: Protocol Last Admin: 07/18/17 09:45 Dose: 100 mls/hr Ciprofloxacin (Cipro 400mg/200ml Dsw) 400 mg in 200 mls @ 200 mls/hr IVPB Q12 [facility] PRN Reason: Protocol Last Admin: 07/18/17 09:46 Dose: 200 mls/hr Aztreonam 2 gm/ Sodium (Chloride) 100 mls @ 100 mls/hr IVPB Q8 [facility] PRN Reason: Protocol Last Admin: 07/18/17 01:00 Dose: 100 mls/hr Morphine Sulfate (Morphine) 4 mg IVP Q6 PRN PRN Reason: Pain, severe (8-10) Morphine Sulfate (Morphine) 2 mg IVP Q6 PRN PRN Reason: Pain, moderate (4-7) Last Admin: 07/18/17 09:41 Dose: 2 mg Nitroglycerin (Nitro-Dur 0.2 Mg/Hr Patch) 1 patch TD DAILY [facility] Last Admin: 07/18/17 09:47 Dose: 1 patch - Labs Labs: 07/18/17 04:40 07/18/17 04:40 PT 13.0 Seconds (9.8-13.1) 07/16/17 16:25 INR 1.2 (0.9-1.2) 07/16/17 16:25 APTT 28.6 Seconds (25.6-37.1) 07/16/17 16:25 - Constitutional Appears: Chronically Ill - Head Exam Head Exam: NORMAL INSPECTION - Eye Exam Eye Exam: PERRL - ENT Exam Additional comments: Hard of hear L ear. - Neck Exam Neck Exam: Normal Inspection - Respiratory Exam Respiratory Exam: Decreased Breath Sounds (at bases) - Cardiovascular Exam Cardiovascular Exam: REGULAR RHYTHM, Murmur (systolic 2/6 LSB.) - GI/Abdominal Exam GI & Abdominal Exam: Guarding (minimal), Soft, Tenderness (RUQ, LUQ), Normal Bowel Sounds. absent: Rebound - Extremities Exam Extremities Exam: Tenderness (L hip) Additional comments: L hip and lateral thigh scar from surgery. - Back Exam Back Exam: tenderness (mild) - Neurological Exam Additional comments: Confused, forgetful, no focal motor/sensory deficit, generalized weakness. - Skin Skin Exam: Warm Assessment and Plan (1) Acute cholecystitis Status: Acute (2) Sepsis Status: Acute (3) Dementia Status: Chronic (4) HTN (hypertension) Status: Acute (5) Chronic back pain Status: Chronic (6) Seizure Status: Chronic (7) Generalized weakness Status: Chronic (8) COPD (chronic obstructive pulmonary disease) Status: Chronic - Assessment and Plan (Free Text) Plan: To have MRCP today, continue abx coverage and rest of Tx. ICU Time: 40 min.
[2017-07-18] MEDS ORDERED: Sodium Chloride 0.9% 300 ML ONE (17:19)
[2017-07-18] MEDS ORDERED: Gadodiamide 287 MG/ML VIAL (15ML) IV ONE (17:19)
[2017-07-18] MEDS ORDERED: Sodium Chloride 0.45% 1,000 ML IV SCH (20:45)
[2017-07-18] MEDS ORDERED: Potassium Chloride 20 mEq ER Tab PO STA (23:33)
[2017-07-19] MEDS: metroNIDAZOLE 500mg/100ml NS 100 ML IVPB SCH ×3 (00:41→17:35)
[2017-07-19] MEDS: Aztreonam 2 GM in Sodium Chloride 0.9% 100 ML IVPB SCH ×3 (00:42→17:34)
[2017-07-19] MEDS: Morphine 4 MG/ML VIAL IVP PRN (02:38)
[2017-07-19] MEDS ORDERED: HYDROmorphone 0.5 mg/0.5 ml ISec IVP STA ×2 (04:53→05:12)
[2017-07-19 05:28] LABS: BASO % 0.8 % (0.0-2.0); EOS # 0.1 K/uL (0.0-0.7); EOS % 3.3 % (0.0-4.0); HEMOGLOBIN 12.3 g/dL (12.0-16.0); LYMPH # 0.6 K/uL (1.0-4.3); LYMPH % 13.1 % (20.0-40.0); MEAN CELL VOLUME 87.5 fl (81.0-99.0); MEAN CORPUSCULAR HEMOGLOBIN 27.9 pg (27.0-31.0); MEAN CORPUSCULAR HGB CONC 31.9 g/dL (33.0-37.0); MONO # 0.6 K/uL (0.0-0.8); MONO % 14.8 % (0.0-10.0); NEUT # 2.9 K/uL (1.8-7.0); NRBC % 0.2 % (0.0-0.0); RBC 4.42 Mil/uL (3.80-5.20); RED CELL DISTRIBUTION WIDTH 16.2 % (11.5-14.5); WHITE BLOOD COUNT 4.2 K/uL (4.8-10.8)
[2017-07-19 05:57] LABS: ALBUMIN 3.1 g/dL (3.5-5.0); ALT/SGPT 227 U/L (9-52); AST/SGOT 104 U/L (14-36); BLOOD UREA NITROGEN 2 mg/dl (7-17); GFR AFRICAN-AMERICAN > 60; GFR NON-AFRICAN AMERICAN > 60
[2017-07-19] MEDS ORDERED: Succinylcholine 200 mg/10 ml Inj IV ONE (07:10)
[2017-07-19] MEDS: Albuterol-Ipratrop 3 mg / 0.5 (3 ml) UD INH SCH ×3 (07:42→19:15)
--- NOTE | 2017-07-19 08:19 | CP.PCM.PN ---
<Shlomo Nguyen - Last Filed: 07/19/17 08:14> Subjective - Date & Time of Evaluation Date of Evaluation: 07/19/17 Time of Evaluation: 08:14 - Subjective Subjective: SURGERY PROGRESS NOTE FOR DR. ZARATE 82F seen and examined at bedside. No acute events overnight. Patient resting comfortably. Denies pain, but does not verbalize more than that because she says she is tired. Objective - Vital Signs/Intake and Output Vital Signs (last 24 hours): Temp Pulse Resp BP Pulse Ox 98.9 F 88 19 106/53 L 95 07/19/17 04:00 07/19/17 07:43 07/19/17 06:00 07/19/17 06:00 07/19/17 06:00 Intake and Output: 07/19/17 07/19/17 06:59 18:59 Intake Total 1225 Balance 1225 - Medications Medications: Current Medications Acetaminophen (Tylenol 325 Mg Supp) 975 mg [place] ONCE PRN PRN Reason: Fever >100.4 F Last Admin: 07/16/17 16:40 Dose: 975 mg Acetaminophen (Tylenol 650 Mg Supp) 650 mg [place] Q6 PRN PRN Reason: Fever >100.4 F Albuterol/Ipratropium (Duoneb 3 Mg/0.5 Mg (3 Ml) Ud) 3 ml INH RQ6 PRN PRN Reason: Shortness of Breath Albuterol/Ipratropium (Duoneb 3 Mg/0.5 Mg (3 Ml) Ud) 3 ml INH RTID [facility] Last Admin: 07/19/17 07:42 Dose: 3 ml Metronidazole (Flagyl 500mg/100ml Ns) 100 mls @ 100 mls/hr IVPB Q8 [facility] PRN Reason: Protocol Last Admin: 07/19/17 00:41 Dose: 100 mls/hr Ciprofloxacin (Cipro 400mg/200ml Dsw) 400 mg in 200 mls @ 200 mls/hr IVPB Q12 [facility] PRN Reason: Protocol Last Admin: 07/18/17 20:26 Dose: 200 mls/hr Aztreonam 2 gm/ Sodium (Chloride) 100 mls @ 100 mls/hr IVPB Q8 [facility] PRN Reason: Protocol Last Admin: 07/19/17 00:42 Dose: 100 mls/hr Morphine Sulfate (Morphine) 4 mg IVP Q6 PRN PRN Reason: Pain, severe (8-10) Last Admin: 07/19/17 02:38 Dose: 4 mg Morphine Sulfate (Morphine) 2 mg IVP Q6 PRN PRN Reason: Pain, moderate (4-7) Last Admin: 07/18/17 09:41 Dose: 2 mg Nitroglycerin (Nitro-Dur 0.2 Mg/Hr Patch) 1 patch TD DAILY [facility] Last Admin: 07/18/17 09:47 Dose: 1 patch - Labs Labs: 07/19/17 04:30 07/19/17 04:30 PT 13.0 Seconds (9.8-13.1) 07/16/17 16:25 INR 1.2 (0.9-1.2) 07/16/17 16:25 APTT 28.6 Seconds (25.6-37.1) 07/16/17 16:25 - Constitutional Appears: No Acute Distress - Head Exam Head Exam: ATRAUMATIC - Respiratory Exam Respiratory Exam: Clear to Ausculation Bilateral, NORMAL BREATHING PATTERN - Cardiovascular Exam Cardiovascular Exam: REGULAR RHYTHM, +S1, +S2 - GI/Abdominal Exam GI & Abdominal Exam: Soft. absent: Distended, Firm, Guarding, Rigid, Tenderness , Rebound - Neurological Exam Neurological Exam: Awake - Psychiatric Exam Psychiatric exam: Flat Affect - Skin Skin Exam: Dry, Intact, Normal Color, Warm Assessment and Plan - Assessment and Plan (Free Text) Assessment: 82F with cholecystitis vs hepatitis Plan: MRCP results pending Possible IR intervention- will determine Further recs discuss with Dr. Elliot Nguyen, PGY2 <Josh Zarate - Last Filed: 07/19/17 10:18> Subjective - Date & Time of Evaluation Time of Evaluation: :20 - Subjective Subjective: Patient was seen and examined at the bedside. Objective - Vital Signs/Intake and Output Vital Signs (last 24 hours): Temp Pulse Resp BP Pulse Ox 98.7 F 85 19 94/55 L 98 07/19/17 08:00 07/19/17 09:48 07/19/17 08:00 07/19/17 09:48 07/19/17 08:00 Intake and Output: 07/19/17 07/19/17 06:59 18:59 Intake Total 1225 Balance 1225 - Medications Medications: Current Medications Acetaminophen (Tylenol 325 Mg Supp) 975 mg MS ONCE PRN PRN Reason: Fever >100.4 F Last Admin: 07/16/17 16:40 Dose: 975 mg Acetaminophen (Tylenol 650 Mg Supp) 650 mg MS Q6 PRN PRN Reason: Fever >100.4 F Albuterol/Ipratropium (Duoneb 3 Mg/0.5 Mg (3 Ml) Ud) 3 ml INH RQ6 PRN PRN Reason: Shortness of Breath Albuterol/Ipratropium (Duoneb 3 Mg/0.5 Mg (3 Ml) Ud) 3 ml INH RTID [facility] Last Admin: 07/19/17 07:42 Dose: 3 ml Metronidazole (Flagyl 500mg/100ml Ns) 100 mls @ 100 mls/hr IVPB Q8 [facility] PRN Reason: Protocol Last Admin: 07/19/17 09:49 Dose: 100 mls/hr Ciprofloxacin (Cipro 400mg/200ml Dsw) 400 mg in 200 mls @ 200 mls/hr IVPB Q12 [facility] PRN Reason: Protocol Last Admin: 07/19/17 09:49 Dose: 200 mls/hr Aztreonam 2 gm/ Sodium (Chloride) 100 mls @ 100 mls/hr IVPB Q8 [facility] PRN Reason: Protocol Last Admin: 07/19/17 09:49 Dose: 100 mls/hr Potassium Chloride (Potassium Chloride 20 Meq/100 Ml) 100 mls @ 50 mls/hr IVPB Q1 [facility] Stop: 07/19/17 11:59 Morphine Sulfate (Morphine) 4 mg IVP Q6 PRN PRN Reason: Pain, severe (8-10) Last Admin: 07/19/17 02:38 Dose: 4 mg Morphine Sulfate (Morphine) 2 mg IVP Q6 PRN PRN Reason: Pain, moderate (4-7) Last Admin: 07/18/17 09:41 Dose: 2 mg Nitroglycerin (Nitro-Dur 0.2 Mg/Hr Patch) 1 patch TD DAILY [facility] Last Admin: 07/19/17 09:48 Dose: Not Given - Labs Labs: 07/19/17 04:30 07/19/17 04:30 PT 13.0 Seconds (9.8-13.1) 07/16/17 16:25 INR 1.2 (0.9-1.2) 07/16/17 16:25 APTT 28.6 Seconds (25.6-37.1) 07/16/17 16:25 Assessment and Plan - Assessment and Plan (Free Text) Plan: - awaiting for official MRCP results - IF MRCP negative for choledocholithiasis with tentatively do cholecystectomy on 07/21/17 - Cardiac and medical clearance prior to surgery - repeat labs in am - Continue antibiotics - Will follow
--- NOTE | 2017-07-19 08:52 | CP.CCUPN ---
CCU Subjective - Physician Review Subjective (Free Text): 07/19/17 14:13 The patient was Seen/interviewed and examined by me at the bedside during ICU round, Medical records reviewed and Management issues were discussed and formulated with the house staff. Events reviewed Pt is a 82 Years old Female with PMHx of Asthma, Back Problems, CHF, COPD, Dementia, Depression, Fractures (L wrist , comp Fx T Spine), HTN, Hypercholesterolemia, Osteoporosis, Seizures, Anemia, Anxiety and Arthritis ( poly) Who was sent to ER from [place] on 07/16 due to fever and AMS, she had fever of 103 in ER. She was last admitted on 05/25/17 for abdominal pain with Dx of acute Cholecystitis and treated with Cholecystostomy tube placment done. In the ED she was awake, has unintelligible speech, but appeared to understand spoken word, indicating that she has abdominal pain, more at the LLQ and RUQ. Her Temperature was 103.0F; HR 136/min and RR 25/min. Scheduled for HIDA scan and MRCP today Alert, follows some commands Severe abdominal pain this morning, Dilaudid 1mg IVP given, Pain better now. No Abd pain, Comfortable, NAD Denies any chest pain, SOB or Palpitations Afebrile, NSR on the monitor Last 24H I&O 1225/00 (Incontinent, passed large amount of urine) Underwent MRCP, official results pending Discussed with surgery if the MRCP negative for stone then she is tentatively scheduled for cholecystectomy on 07/21/17 Discussed with PMD, Cardiac consulted for clearance prior to surgery Critical Care Time Spent (in minutes): 34 CCU Objective - Vital Signs / Intake & Output Vital Signs (Last 4 hours): Vital Signs Temp Pulse Resp BP Pulse Ox 07/19/17 08:00 98.7 F 89 19 94/55 L 98 07/19/17 07:43 88 07/19/17 06:00 105 H 19 106/53 L 95 Intake and Output (Last 8hrs): Intake & Output 07/18/17 07/19/17 07/19/17 22:59 06:59 14:59 Intake Total 375 850 Balance 375 850 Weight 122 lb Intake: IV 175 650 Intake, Piggyback 200 200 - Physical Exam Head: Positive for: Atraumatic, Normocephalic. Negative for: Tenderness, Contusion Pupils: Positive for: PERRL. Negative for: Sluggish Extroacular Muscles: Positive for: EOMI Conjunctiva: Positive for: Normal Ears: Positive for: Normal Mouth: Positive for: Moist Mucous Membranes Nose (Internal): Positive for: Normal Inspection Respiratory/Chest: Positive for: Clear to Auscultation, Good Air Exchange. Negative for: Respiratory Distress, Accessory Muscle Use Cardiovascular: Positive for: Regular Rate and Rhythm, Normal S1, S2, Peripheal Pulses Present. Negative for: Murmurs Abdomen: Positive for: Normal Bowel Sounds. Negative for: Tenderness, Distention, Peritoneal Signs, Rebound - Medications Active Medications: Active Medications Generic Name Dose Route Start Last Admin Trade Name Freq PRN Reason Stop Dose Admin Acetaminophen 975 mg 07/16/17 16:15 07/16/17 16:40 Tylenol 325 Mg Supp [place] 975 mg ONCE PRN Administration Fever >100.4 F Acetaminophen 650 mg 07/16/17 21:18 Tylenol 650 Mg Supp [place] Q6 PRN Fever >100.4 F Albuterol/Ipratropium 3 ml 07/16/17 22:04 Duoneb 3 Mg/0.5 Mg (3 Ml) Ud INH RQ6 PRN Shortness of Breath Albuterol/Ipratropium 3 ml 07/18/17 14:00 07/19/17 07:42 Duoneb 3 Mg/0.5 Mg (3 Ml) Ud INH 3 ml RTID BELLE Administration Metronidazole 100 mls @ 100 mls/hr 07/17/17 01:00 07/19/17 00:41 Flagyl 500mg/100ml Ns IVPB 100 mls/hr Q8 [facility] Administration Protocol Ciprofloxacin 400 mg in 200 mls @ 200 mls/hr 07/16/17 21:15 07/18/17 20:26 Cipro 400mg/200ml Dsw IVPB 200 mls/hr Q12 [facility] Administration Protocol Aztreonam 2 gm/ Sodium 100 mls @ 100 mls/hr 07/17/17 17:00 07/19/17 00:42 Chloride IVPB 100 mls/hr Q8 [facility] Administration Protocol Morphine Sulfate 4 mg 07/16/17 21:26 07/19/17 02:38 Morphine IVP 4 mg Q6 PRN Administration Pain, severe (8-10) Morphine Sulfate 2 mg 07/16/17 21:26 07/18/17 09:41 Morphine IVP 2 mg Q6 PRN Administration Pain, moderate (4-7) Nitroglycerin 1 patch 07/17/17 09:00 07/18/17 09:47 Nitro-Dur 0.2 Mg/Hr Patch TD 1 patch DAILY [facility] Administration - Patient Studies Lab Studies: Microbiology Studies 07/16/17 16:25 Blood Culture - Preliminary Blood-Venous Klebsiella Pneumoniae Ssp Pneu Gram Stain - Final 07/16/17 15:00 MRSA Culture (Admit) - Final Naris MRSA NOT DETECTED 07/16/17 16:50 Urine Culture - Final Urine,Catheterized 50-100,000 CFU/ML. MULTIPLE SPECIES. SUGGEST REPEAT SPECIMEN. Lab Studies 07/19/17 07/19/17 Range/Units 04:30 04:30 WBC 4.2 L (4.8-10.8) K/uL RBC 4.42 (3.80-5.20) Mil/uL Hgb 12.3 (12.0-16.0) g/dL Hct 38.7 (34.0-47.0) % MCV 87.5 (81.0-99.0) fl MCH 27.9 (27.0-31.0) pg MCHC 31.9 L (33.0-37.0) g/dL RDW 16.2 H (11.5-14.5) % Plt Count 107 L (130-400) K/uL MPV 10.0 (7.2-11.7) fl Neut % (Auto) 68.0 (50.0-75.0) % Lymph % (Auto) 13.1 L (20.0-40.0) % [place] % (Auto) 14.8 H (0.0-10.0) % Eos % (Auto) 3.3 (0.0-4.0) % Baso % (Auto) 0.8 (0.0-2.0) % Neut # (Auto) 2.9 (1.8-7.0) K/uL Lymph # (Auto) 0.6 L (1.0-4.3) K/uL [place] # (Auto) 0.6 (0.0-0.8) K/uL Eos # (Auto) 0.1 (0.0-0.7) K/uL Baso # (Auto) 0.0 (0.0-0.2) K/uL Sodium 143 (132-148) mmol/l Potassium 2.9 L (3.6-5.0) MMOL/L Chloride 103 (98-107) mmol/L Carbon Dioxide 30 (22-30) mmol/L Anion Gap 13 (10-20) BUN 2 L (7-17) mg/dl Creatinine 0.3 L (0.7-1.2) mg/dl Est GFR ( Amer) > 60 Est GFR (Non-Af Amer) > 60 Random Glucose 97 (65-105) mg/dL Calcium 9.0 (8.4-10.2) mg/dL Total Bilirubin 0.9 (0.2-1.3) mg/dl AST 104 H D (14-36) U/L ALT 227 H D (9-52) U/L Alkaline Phosphatase 182 H (38-126) U/L Total Protein 6.1 L (6.3-8.2) G/DL Albumin 3.1 L (3.5-5.0) g/dL Globulin 3.1 (2.2-3.9) gm/dL Albumin/Globulin Ratio 1.0 (1.0-2.1) Laboratory Results - last 24 hr 07/19/17 07/19/17 04:30 04:30 WBC 4.2 L RBC 4.42 Hgb 12.3 Hct 38.7 MCV 87.5 MCH 27.9 MCHC 31.9 L RDW 16.2 H Plt Count 107 L MPV 10.0 Neut % (Auto) 68.0 Lymph % (Auto) 13.1 L [place] % (Auto) 14.8 H Eos % (Auto) 3.3 Baso % (Auto) 0.8 Neut # (Auto) 2.9 Lymph # (Auto) 0.6 L [place] # (Auto) 0.6 Eos # (Auto) 0.1 Baso # (Auto) 0.0 Sodium 143 Potassium 2.9 L Chloride 103 Carbon Dioxide 30 Anion Gap 13 BUN 2 L Creatinine 0.3 L Est GFR ( Amer) > 60 Est GFR (Non-Af Amer) > 60 Random Glucose 97 Calcium 9.0 Total Bilirubin 0.9 AST 104 H D ALT 227 H D Alkaline Phosphatase 182 H Total Protein 6.1 L Albumin 3.1 L Globulin 3.1 Albumin/Globulin Ratio 1.0 Fingerstick Blood Sugar Results: 144 Critical Care Progress Note - Nutrition Nutrition: Nutrition Category Date Time Status NPO Diet [DIET] Diets 07/16/17 Dinner Active Assessment/Plan (1) Acute cholecystitis Current Visit: Yes Status: Acute Priority: High Comment: NPO IV fluids Continue Antibiotics vamshi Aztreonam, Ciprofloxacin and Flagyl Follow Blood and urine cultures Pain control with Tylenol anf Morphine 4 mg IVP Q6 PRN Underwent MRCP, official results pending Discussed with surgery if the MRCP negative for choledocholithiasis then she is tentatively scheduled for cholecystectomy on 07/21/17 Discussed with PMD, Cardiac consulted for clearance prior to surgery (2) Abdominal pain Current Visit: Yes Status: Acute Priority: High (3) Severe sepsis Current Visit: Yes Status: Acute Comment: - Astreonam - Cipro - Flagyl - Trend WBC count, lactate - Monitor fever curve, Tylenol PRN fevers (4) Proctitis Current Visit: Yes Status: Acute Comment: As for severe sepsis (5) Hypokalemia Current Visit: Yes Status: Acute - Assessment and Plan (Free Text) Assessment: # GI/DVT PPX # Stress Ulcer prophylaxis Not currently indicated. # DVT prophylaxis with SCD, SQ Heparin # Code Status: Full code Total critical care time 34 minutes
[2017-07-19] MEDS: Nitroglycerin 0.2 mg/hr Top Patch TD SCH (09:48)
[2017-07-19] MEDS: Ciprofloxacin 400mg/200ml D5W 400 MG/200 ML BAG IVPB SCH ×2 (09:49→20:47)
[2017-07-19] MEDS ORDERED: Potassium Chloride 20 mEq 100 ML IVPB SCH ×3 (10:00)
[2017-07-19] MEDS: Potassium Chloride 20 mEq 100 ML IVPB SCH ×4 (10:30→20:46)
--- NOTE | 2017-07-19 12:15 | CP.PCM.PN ---
Subjective - Date & Time of Evaluation Date of Evaluation: 07/19/17 Time of Evaluation: 08:00 - Subjective Subjective: events noted sepsis improved MRCP pending Objective - Vital Signs/Intake and Output Vital Signs (last 24 hours): Temp Pulse Resp BP Pulse Ox 98.7 F 85 19 94/55 L 98 07/19/17 08:00 07/19/17 09:48 07/19/17 08:00 07/19/17 09:48 07/19/17 08:00 Intake and Output: 07/19/17 07/19/17 06:59 18:59 Intake Total 1225 Balance 1225 - Medications Medications: Current Medications Acetaminophen (Tylenol 325 Mg Supp) 975 mg [place] ONCE PRN PRN Reason: Fever >100.4 F Last Admin: 07/16/17 16:40 Dose: 975 mg Acetaminophen (Tylenol 650 Mg Supp) 650 mg [place] Q6 PRN PRN Reason: Fever >100.4 F Albuterol/Ipratropium (Duoneb 3 Mg/0.5 Mg (3 Ml) Ud) 3 ml INH RQ6 PRN PRN Reason: Shortness of Breath Albuterol/Ipratropium (Duoneb 3 Mg/0.5 Mg (3 Ml) Ud) 3 ml INH RTID [facility] Last Admin: 07/19/17 07:42 Dose: 3 ml Metronidazole (Flagyl 500mg/100ml Ns) 100 mls @ 100 mls/hr IVPB Q8 [facility] PRN Reason: Protocol Last Admin: 07/19/17 09:49 Dose: 100 mls/hr Ciprofloxacin (Cipro 400mg/200ml Dsw) 400 mg in 200 mls @ 200 mls/hr IVPB Q12 [facility] PRN Reason: Protocol Last Admin: 07/19/17 09:49 Dose: 200 mls/hr Aztreonam 2 gm/ Sodium (Chloride) 100 mls @ 100 mls/hr IVPB Q8 [facility] PRN Reason: Protocol Last Admin: 07/19/17 09:49 Dose: 100 mls/hr Potassium Chloride (Potassium Chloride 20 Meq/100 Ml) 100 mls @ 50 mls/hr IVPB Q2 [facility] Stop: 07/19/17 13:29 Morphine Sulfate (Morphine) 4 mg IVP Q6 PRN PRN Reason: Pain, severe (8-10) Last Admin: 07/19/17 02:38 Dose: 4 mg Morphine Sulfate (Morphine) 2 mg IVP Q6 PRN PRN Reason: Pain, moderate (4-7) Last Admin: 07/18/17 09:41 Dose: 2 mg Nitroglycerin (Nitro-Dur 0.2 Mg/Hr Patch) 1 patch TD DAILY [facility] Last Admin: 07/19/17 09:48 Dose: Not Given - Labs Labs: 07/19/17 04:30 07/19/17 04:30 PT 13.0 Seconds (9.8-13.1) 07/16/17 16:25 INR 1.2 (0.9-1.2) 07/16/17 16:25 APTT 28.6 Seconds (25.6-37.1) 07/16/17 16:25 Assessment and Plan (1) Cholecystitis Status: Acute (2) Sepsis Status: Acute (3) Abdominal pain Status: Acute (4) Dementia Status: Acute (5) Depression Status: Acute
--- NOTE | 2017-07-19 15:18 | CP.PCM.PN ---
Subjective - Date & Time of Evaluation Date of Evaluation: 07/19/17 Time of Evaluation: 10:15 - Subjective Subjective: F/U Acute Cholecystitis. Agitated at times , N/C of abdominal pain Objective - Vital Signs/Intake and Output Vital Signs (last 24 hours): Temp Pulse Resp BP Pulse Ox 99.5 F 99 H 11 L 155/97 H 100 07/19/17 12:00 07/19/17 12:00 07/19/17 12:00 07/19/17 12:00 07/19/17 12:00 Intake and Output: 07/19/17 07/19/17 06:59 18:59 Intake Total 1225 Balance 1225 - Medications Medications: Current Medications Acetaminophen (Tylenol 325 Mg Supp) 975 mg [place] ONCE PRN PRN Reason: Fever >100.4 F Last Admin: 07/16/17 16:40 Dose: 975 mg Acetaminophen (Tylenol 650 Mg Supp) 650 mg [place] Q6 PRN PRN Reason: Fever >100.4 F Albuterol/Ipratropium (Duoneb 3 Mg/0.5 Mg (3 Ml) Ud) 3 ml INH RQ6 PRN PRN Reason: Shortness of Breath Albuterol/Ipratropium (Duoneb 3 Mg/0.5 Mg (3 Ml) Ud) 3 ml INH RTID [facility] Last Admin: 07/19/17 13:21 Dose: 3 ml Clotrimazole (Lotrimin 1% Cream) 1 applic TOP BID [facility] Heparin Sodium (Porcine) (Heparin) 5,000 units SC Q12 [facility] PRN Reason: Protocol Metronidazole (Flagyl 500mg/100ml Ns) 100 mls @ 100 mls/hr IVPB Q8 [facility] PRN Reason: Protocol Last Admin: 07/19/17 09:49 Dose: 100 mls/hr Ciprofloxacin (Cipro 400mg/200ml Dsw) 400 mg in 200 mls @ 200 mls/hr IVPB Q12 [facility] PRN Reason: Protocol Last Admin: 07/19/17 09:49 Dose: 200 mls/hr Aztreonam 2 gm/ Sodium (Chloride) 100 mls @ 100 mls/hr IVPB Q8 [facility] PRN Reason: Protocol Last Admin: 07/19/17 09:49 Dose: 100 mls/hr Morphine Sulfate (Morphine) 4 mg IVP Q6 PRN PRN Reason: Pain, severe (8-10) Last Admin: 07/19/17 02:38 Dose: 4 mg Morphine Sulfate (Morphine) 2 mg IVP Q6 PRN PRN Reason: Pain, moderate (4-7) Last Admin: 07/18/17 09:41 Dose: 2 mg Nitroglycerin (Nitro-Dur 0.2 Mg/Hr Patch) 1 patch TD DAILY [facility] Last Admin: 07/19/17 09:48 Dose: Not Given - Labs Labs: 07/19/17 04:30 07/19/17 04:30 PT 13.0 Seconds (9.8-13.1) 07/16/17 16:25 INR 1.2 (0.9-1.2) 07/16/17 16:25 APTT 28.6 Seconds (25.6-37.1) 07/16/17 16:25 - Constitutional Appears: Chronically Ill - Head Exam Head Exam: NORMAL INSPECTION - Eye Exam Eye Exam: PERRL - ENT Exam ENT Exam: Normal Exam - Neck Exam Neck Exam: Normal Inspection - Respiratory Exam Respiratory Exam: Decreased Breath Sounds (at bases) - Cardiovascular Exam Cardiovascular Exam: REGULAR RHYTHM, Murmur (2/6 LSB) - GI/Abdominal Exam GI & Abdominal Exam: Soft, Normal Bowel Sounds. absent: Guarding, Rebound - Extremities Exam Extremities Exam: Normal Inspection - Back Exam Back Exam: NORMAL INSPECTION - Neurological Exam Additional comments: confused , no focal motor/sensory deficit , generalized weakness - Psychiatric Exam Psychiatric exam: Anxious - Skin Skin Exam: Warm Assessment and Plan (1) Acute cholecystitis Status: Acute (2) Sepsis Status: Acute (3) Dementia Status: Chronic (4) HTN (hypertension) Status: Acute (5) Chronic back pain Status: Chronic (6) Seizure Status: Chronic (7) Generalized weakness Status: Chronic (8) COPD (chronic obstructive pulmonary disease) Status: Chronic - Assessment and Plan (Free Text) Plan: continue Aztreonam , Cipro , Flagyl , Duo Neb and rest of treatment , Cardiology consult for cardiac clearance
[2017-07-19] MEDS ORDERED: Sodium Chloride 0.45% 1,000 ML IV SCH (21:45)
[2017-07-20] MEDS: metroNIDAZOLE 500mg/100ml NS 100 ML IVPB SCH ×3 (00:19→16:48)
[2017-07-20] MEDS: Aztreonam 2 GM in Sodium Chloride 0.9% 100 ML IVPB SCH ×3 (00:20→16:47)
[2017-07-20 05:19] LABS: BASO % 1.4 % (0.0-2.0); EOS # 0.2 K/uL (0.0-0.7); EOS % 5.4 % (0.0-4.0); HEMOGLOBIN 11.3 g/dL (12.0-16.0); LYMPH # 0.7 K/uL (1.0-4.3); MEAN CELL VOLUME 86.7 fl (81.0-99.0); MEAN CORPUSCULAR HEMOGLOBIN 28.2 pg (27.0-31.0); MEAN CORPUSCULAR HGB CONC 32.5 g/dL (33.0-37.0); MEAN PLATELET VOLUME 9.6 fl (7.2-11.7); MONO # 0.6 K/uL (0.0-0.8); MONO % 19.6 % (0.0-10.0); NEUT # 1.6 K/uL (1.8-7.0); NEUT % 50.6 % (50.0-75.0); RBC 4.01 Mil/uL (3.80-5.20); RED CELL DISTRIBUTION WIDTH 15.6 % (11.5-14.5); WHITE BLOOD COUNT 3.2 K/uL (4.8-10.8)
[2017-07-20 05:29] LABS: ALB/GLOB RATIO 0.9 (1.0-2.1); ALBUMIN 2.8 g/dL (3.5-5.0); ALT/SGPT 154 U/L (9-52); AST/SGOT 51 U/L (14-36); BLOOD UREA NITROGEN 3 mg/dl (7-17); CALCIUM 8.9 mg/dL (8.4-10.2); GFR AFRICAN-AMERICAN > 60; GFR NON-AFRICAN AMERICAN > 60
[2017-07-20] MEDS ORDERED: Potassium Ch 20mEq in D5-1/2NS 1,000 ML IV SCH (07:30)
[2017-07-20] MEDS: Albuterol-Ipratrop 3 mg / 0.5 (3 ml) UD INH SCH ×3 (07:48→19:39)
--- NOTE | 2017-07-20 08:32 | CP.PCM.PN ---
Subjective - Date & Time of Evaluation Date of Evaluation: 07/19/17 Time of Evaluation: 13:00 - Subjective Subjective: no overnight events Objective - Vital Signs/Intake and Output Vital Signs (last 24 hours): Temp Pulse Resp BP Pulse Ox 98.7 F 112 H 14 146/83 100 07/20/17 00:00 07/20/17 08:00 07/20/17 08:00 07/20/17 08:00 07/20/17 08:00 Intake and Output: 07/20/17 07/20/17 06:59 18:59 Intake Total 1300 200 Balance 1300 200 - Medications Medications: Current Medications Acetaminophen (Tylenol 325 Mg Supp) 975 mg [place] ONCE PRN PRN Reason: Fever >100.4 F Last Admin: 07/16/17 16:40 Dose: 975 mg Acetaminophen (Tylenol 650 Mg Supp) 650 mg [place] Q6 PRN PRN Reason: Fever >100.4 F Albuterol/Ipratropium (Duoneb 3 Mg/0.5 Mg (3 Ml) Ud) 3 ml INH RQ6 PRN PRN Reason: Shortness of Breath Albuterol/Ipratropium (Duoneb 3 Mg/0.5 Mg (3 Ml) Ud) 3 ml INH RTID [facility] Last Admin: 07/20/17 07:48 Dose: 3 ml Clotrimazole (Lotrimin 1% Cream) 1 applic TOP BID [facility] Last Admin: 07/19/17 17:41 Dose: 1 applic Heparin Sodium (Porcine) (Heparin) 5,000 units SC Q12 [facility] PRN Reason: Protocol Last Admin: 07/19/17 21:33 Dose: 5,000 units Metronidazole (Flagyl 500mg/100ml Ns) 100 mls @ 100 mls/hr IVPB Q8 [facility] PRN Reason: Protocol Last Admin: 07/20/17 00:19 Dose: 100 mls/hr Ciprofloxacin (Cipro 400mg/200ml Dsw) 400 mg in 200 mls @ 200 mls/hr IVPB Q12 [facility] PRN Reason: Protocol Last Admin: 07/19/17 20:47 Dose: 200 mls/hr Aztreonam 2 gm/ Sodium (Chloride) 100 mls @ 100 mls/hr IVPB Q8 [facility] PRN Reason: Protocol Last Admin: 07/20/17 00:20 Dose: 100 mls/hr Potassium Chloride/Dextrose/Sod Cl (Potassium Chl 20 Meq In D5-1/2ns) 1,000 mls @ 100 mls/hr IV .Q10H [facility] Stop: 07/21/17 07:20 Morphine Sulfate (Morphine) 4 mg IVP Q6 PRN PRN Reason: Pain, severe (8-10) Last Admin: 07/19/17 02:38 Dose: 4 mg Morphine Sulfate (Morphine) 2 mg IVP Q6 PRN PRN Reason: Pain, moderate (4-7) Last Admin: 07/18/17 09:41 Dose: 2 mg Nitroglycerin (Nitro-Dur 0.2 Mg/Hr Patch) 1 patch TD DAILY [facility] Last Admin: 07/19/17 09:48 Dose: Not Given - Labs Labs: 07/20/17 04:55 07/20/17 04:55 PT 13.0 Seconds (9.8-13.1) 07/16/17 16:25 INR 1.2 (0.9-1.2) 07/16/17 16:25 APTT 28.6 Seconds (25.6-37.1) 07/16/17 16:25 - Head Exam Head Exam: NORMOCEPHALIC - Neck Exam Neck Exam: Normal Inspection - Respiratory Exam Respiratory Exam: Clear to Ausculation Bilateral, NORMAL BREATHING PATTERN - Cardiovascular Exam Cardiovascular Exam: REGULAR RHYTHM - GI/Abdominal Exam GI & Abdominal Exam: Soft, Tenderness, Normal Bowel Sounds Assessment and Plan - Assessment and Plan (Free Text) Assessment: 82 yo female with cholecystitis abx surgical evaluation
--- NOTE | 2017-07-20 08:37 | CP.PCM.PN ---
<BobKylee - Last Filed: 07/20/17 08:31> Subjective - Date & Time of Evaluation Date of Evaluation: 07/20/17 Time of Evaluation: 08:31 - Subjective Subjective: General surgery - Dr. Zarate Pt S&EMarquise SNOW. Pt remains somewhat confused this morning. She denies any pain , nausea, vomiting, fevers chills. Objective - Vital Signs/Intake and Output Vital Signs (last 24 hours): Temp Pulse Resp BP Pulse Ox 98.7 F 112 H 14 146/83 100 07/20/17 00:00 07/20/17 08:00 07/20/17 08:00 07/20/17 08:00 07/20/17 08:00 Intake and Output: 07/20/17 07/20/17 06:59 18:59 Intake Total 1300 200 Balance 1300 200 - Medications Medications: Current Medications Acetaminophen (Tylenol 325 Mg Supp) 975 mg [place] ONCE PRN PRN Reason: Fever >100.4 F Last Admin: 07/16/17 16:40 Dose: 975 mg Acetaminophen (Tylenol 650 Mg Supp) 650 mg [place] Q6 PRN PRN Reason: Fever >100.4 F Albuterol/Ipratropium (Duoneb 3 Mg/0.5 Mg (3 Ml) Ud) 3 ml INH RQ6 PRN PRN Reason: Shortness of Breath Albuterol/Ipratropium (Duoneb 3 Mg/0.5 Mg (3 Ml) Ud) 3 ml INH RTID [facility] Last Admin: 07/20/17 07:48 Dose: 3 ml Clotrimazole (Lotrimin 1% Cream) 1 applic TOP BID [facility] Last Admin: 07/19/17 17:41 Dose: 1 applic Heparin Sodium (Porcine) (Heparin) 5,000 units SC Q12 [facility] PRN Reason: Protocol Last Admin: 07/19/17 21:33 Dose: 5,000 units Metronidazole (Flagyl 500mg/100ml Ns) 100 mls @ 100 mls/hr IVPB Q8 [facility] PRN Reason: Protocol Last Admin: 07/20/17 00:19 Dose: 100 mls/hr Ciprofloxacin (Cipro 400mg/200ml Dsw) 400 mg in 200 mls @ 200 mls/hr IVPB Q12 [facility] PRN Reason: Protocol Last Admin: 07/19/17 20:47 Dose: 200 mls/hr Aztreonam 2 gm/ Sodium (Chloride) 100 mls @ 100 mls/hr IVPB Q8 [facility] PRN Reason: Protocol Last Admin: 07/20/17 00:20 Dose: 100 mls/hr Potassium Chloride/Dextrose/Sod Cl (Potassium Chl 20 Meq In D5-1/2ns) 1,000 mls @ 100 mls/hr IV .Q10H [facility] Stop: 07/21/17 07:20 Morphine Sulfate (Morphine) 4 mg IVP Q6 PRN PRN Reason: Pain, severe (8-10) Last Admin: 07/19/17 02:38 Dose: 4 mg Morphine Sulfate (Morphine) 2 mg IVP Q6 PRN PRN Reason: Pain, moderate (4-7) Last Admin: 07/18/17 09:41 Dose: 2 mg Nitroglycerin (Nitro-Dur 0.2 Mg/Hr Patch) 1 patch TD DAILY [facility] Last Admin: 07/19/17 09:48 Dose: Not Given - Labs Labs: 07/20/17 04:55 07/20/17 04:55 PT 13.0 Seconds (9.8-13.1) 07/16/17 16:25 INR 1.2 (0.9-1.2) 07/16/17 16:25 APTT 28.6 Seconds (25.6-37.1) 07/16/17 16:25 - Constitutional Appears: No Acute Distress - Head Exam Head Exam: ATRAUMATIC, NORMAL INSPECTION, NORMOCEPHALIC - Respiratory Exam Respiratory Exam: NORMAL BREATHING PATTERN. absent: Respiratory Distress - Cardiovascular Exam Cardiovascular Exam: Tachycardia - GI/Abdominal Exam GI & Abdominal Exam: Firm (RUQ), Soft, Tenderness (mild ttp RUQ). absent: Distended, Guarding - Neurological Exam Neurological Exam: Alert. absent: Oriented x3 - Skin Skin Exam: Dry, Intact Assessment and Plan - Assessment and Plan (Free Text) Assessment: 82 yo F w/ Cholecystitis -MRCP shows distended GB with stones/sludge, no choledocholithiasis -LFTs trending down -Tentatively plan for cholecystectomy tomorrow -Need Cardiac and medical clearance prior to surgery -Continue NPO, IV Abx Dw Dr Zarate <Josh Zarate - Last Filed: 07/20/17 14:51> Subjective - Date & Time of Evaluation Time of Evaluation: 14:20 - Subjective Subjective: Patient was seen and examined at the bedside. Agree with resident's note above. Objective - Vital Signs/Intake and Output Vital Signs (last 24 hours): Temp Pulse Resp BP Pulse Ox 98.3 F 113 H 19 124/82 100 07/20/17 12:00 07/20/17 12:00 07/20/17 12:00 07/20/17 12:00 07/20/17 12:00 Intake and Output: 07/20/17 07/20/17 06:59 18:59 Intake Total 1300 700 Balance 1300 700 - Medications Medications: Current Medications Acetaminophen (Tylenol 325 Mg Supp) 975 mg [place] ONCE PRN PRN Reason: Fever >100.4 F Last Admin: 07/16/17 16:40 Dose: 975 mg Acetaminophen (Tylenol 650 Mg Supp) 650 mg [place] Q6 PRN PRN Reason: Fever >100.4 F Albuterol/Ipratropium (Duoneb 3 Mg/0.5 Mg (3 Ml) Ud) 3 ml INH RQ6 PRN PRN Reason: Shortness of Breath Albuterol/Ipratropium (Duoneb 3 Mg/0.5 Mg (3 Ml) Ud) 3 ml INH RTID [facility] Last Admin: 07/20/17 13:53 Dose: 3 ml Clotrimazole (Lotrimin 1% Cream) 1 applic TOP BID [facility] Last Admin: 07/20/17 09:41 Dose: 1 applic Metronidazole (Flagyl 500mg/100ml Ns) 100 mls @ 100 mls/hr IVPB Q8 [facility] PRN Reason: Protocol Last Admin: 07/20/17 09:42 Dose: 100 mls/hr Ciprofloxacin (Cipro 400mg/200ml Dsw) 400 mg in 200 mls @ 200 mls/hr IVPB Q12 [facility] PRN Reason: Protocol Last Admin: 07/20/17 09:43 Dose: 200 mls/hr Aztreonam 2 gm/ Sodium (Chloride) 100 mls @ 100 mls/hr IVPB Q8 [facility] PRN Reason: Protocol Last Admin: 07/20/17 09:44 Dose: 100 mls/hr Potassium Chloride/Dextrose/Sod Cl (Potassium Chl 20 Meq In D5-1/2ns) 1,000 mls @ 100 mls/hr IV .Q10H [facility] Stop: 07/21/17 07:20 Last Admin: 07/20/17 09:37 Dose: 100 mls/hr Lorazepam (Ativan) 0.5 mg IVP Q6 PRN PRN Reason: Agitation Morphine Sulfate (Morphine) 4 mg IVP Q6 PRN PRN Reason: Pain, severe (8-10) Last Admin: 07/19/17 02:38 Dose: 4 mg Morphine Sulfate (Morphine) 2 mg IVP Q6 PRN PRN Reason: Pain, moderate (4-7) Last Admin: 07/20/17 14:18 Dose: 2 mg Nitroglycerin (Nitro-Dur 0.2 Mg/Hr Patch) 1 patch TD DAILY [facility] Last Admin: 07/20/17 09:39 Dose: 1 patch - Labs Labs: 07/20/17 04:55 07/20/17 04:55 PT 13.0 Seconds (9.8-13.1) 07/16/17 16:25 INR 1.2 (0.9-1.2) 07/16/17 16:25 APTT 28.6 Seconds (25.6-37.1) 07/16/17 16:25 Assessment and Plan - Assessment and Plan (Free Text) Plan: - Keep NPO - TO OR tomorrow for cholecystectomy if medically and cardiac cleared - repeat labs in am - Will follow
[2017-07-20] MEDS: Nitroglycerin 0.2 mg/hr Top Patch TD SCH (09:39)
[2017-07-20] MEDS: Ciprofloxacin 400mg/200ml D5W 400 MG/200 ML BAG IVPB SCH ×2 (09:43→20:48)
--- NOTE | 2017-07-20 11:01 | MRI ---
PROCEDURE: Magnetic Resonance Cholangiopancreatography HISTORY: Right upper quadrant abdominal pain COMPARISON: None available. TECHNIQUE: Multiplanar, multisequence MR images of the abdomen were obtained, including heavily T2 weighted MRCP images of the biliary system. Rotating maximum intensity projection images of the biliary system were generated. FINDINGS: MRCP: The common bile duct is of a normal caliber. No evidence of choledocholithiasis. No intrahepatic biliary ductal dilatation. LIVER: Normal size, contour and attenuation. Normal signal intensity. Probable cyst in lateral segment left lobe of liver, 12 mm diameter. No other hepatic mass. GALLBLADDER: Diffuse mural thickening. No appreciable pericholecystic fluid. No pericholecystic edema seen. There is dependent sludge layering within the gallbladder lumen. No definite calculi are appreciated. SPLEEN: Unremarkable. PANCREAS: Unremarkable. ADRENALS: Unremarkable. KIDNEYS: Unremarkable. AORTA: N O aneurysm. ASCITES: None. OTHER FINDINGS: In the left superior gluteal region and left lateral flank, there is subcutaneous edema and edema surrounding the musculature. This may reflect focal contusion. IMPRESSION: Diffuse mural thickening of the gallbladder with dependent sludge but no definite calculi. No pericholecystic fluid. Nonspecific finding. No evidence of biliary obstruction. Subcutaneous edema and edema surrounding the left superior gluteal and flank musculature of uncertain significance. Possible contusion. Please correlate with history. Preliminary interpretation of this examination was reported by [facility] at 8:23 p.m. on 07/18/2017.. There is concurrence of this report with the preliminary interpretation.
--- NOTE | 2017-07-20 15:15 | CP.PCM.PN ---
Subjective - Date & Time of Evaluation Date of Evaluation: 07/20/17 Time of Evaluation: 12:45 - Subjective Subjective: F/U acute Cholecystitis. Agitated at times reported by nurses, N/C of abdominal pain Objective - Vital Signs/Intake and Output Vital Signs (last 24 hours): Temp Pulse Resp BP Pulse Ox 98.3 F 113 H 19 124/82 100 07/20/17 12:00 07/20/17 12:00 07/20/17 12:00 07/20/17 12:00 07/20/17 12:00 Intake and Output: 07/20/17 07/20/17 06:59 18:59 Intake Total 1300 700 Balance 1300 700 - Medications Medications: Current Medications Acetaminophen (Tylenol 325 Mg Supp) 975 mg [place] ONCE PRN PRN Reason: Fever >100.4 F Last Admin: 07/16/17 16:40 Dose: 975 mg Acetaminophen (Tylenol 650 Mg Supp) 650 mg [place] Q6 PRN PRN Reason: Fever >100.4 F Albuterol/Ipratropium (Duoneb 3 Mg/0.5 Mg (3 Ml) Ud) 3 ml INH RQ6 PRN PRN Reason: Shortness of Breath Albuterol/Ipratropium (Duoneb 3 Mg/0.5 Mg (3 Ml) Ud) 3 ml INH RTID [facility] Last Admin: 07/20/17 13:53 Dose: 3 ml Clotrimazole (Lotrimin 1% Cream) 1 applic TOP BID [facility] Last Admin: 07/20/17 09:41 Dose: 1 applic Metronidazole (Flagyl 500mg/100ml Ns) 100 mls @ 100 mls/hr IVPB Q8 [facility] PRN Reason: Protocol Last Admin: 07/20/17 09:42 Dose: 100 mls/hr Ciprofloxacin (Cipro 400mg/200ml Dsw) 400 mg in 200 mls @ 200 mls/hr IVPB Q12 [facility] PRN Reason: Protocol Last Admin: 07/20/17 09:43 Dose: 200 mls/hr Aztreonam 2 gm/ Sodium (Chloride) 100 mls @ 100 mls/hr IVPB Q8 [facility] PRN Reason: Protocol Last Admin: 07/20/17 09:44 Dose: 100 mls/hr Potassium Chloride/Dextrose/Sod Cl (Potassium Chl 20 Meq In D5-1/2ns) 1,000 mls @ 100 mls/hr IV .Q10H [facility] Stop: 07/21/17 07:20 Last Admin: 07/20/17 09:37 Dose: 100 mls/hr Lorazepam (Ativan) 0.5 mg IVP Q6 PRN PRN Reason: Agitation Morphine Sulfate (Morphine) 4 mg IVP Q6 PRN PRN Reason: Pain, severe (8-10) Last Admin: 07/19/17 02:38 Dose: 4 mg Morphine Sulfate (Morphine) 2 mg IVP Q6 PRN PRN Reason: Pain, moderate (4-7) Last Admin: 07/20/17 14:18 Dose: 2 mg Nitroglycerin (Nitro-Dur 0.2 Mg/Hr Patch) 1 patch TD DAILY [facility] Last Admin: 07/20/17 09:39 Dose: 1 patch - Labs Labs: 07/20/17 04:55 07/20/17 04:55 PT 13.0 Seconds (9.8-13.1) 07/16/17 16:25 INR 1.2 (0.9-1.2) 07/16/17 16:25 APTT 28.6 Seconds (25.6-37.1) 07/16/17 16:25 - Constitutional Appears: Chronically Ill - Head Exam Head Exam: NORMAL INSPECTION - Eye Exam Eye Exam: PERRL - ENT Exam ENT Exam: Normal Exam - Neck Exam Neck Exam: Normal Inspection - Respiratory Exam Respiratory Exam: Decreased Breath Sounds (at bases) - Cardiovascular Exam Cardiovascular Exam: REGULAR RHYTHM, Murmur (2/6 LSB) - GI/Abdominal Exam GI & Abdominal Exam: Soft, Normal Bowel Sounds. absent: Guarding, Rebound - Extremities Exam Extremities Exam: Normal Inspection - Back Exam Back Exam: NORMAL INSPECTION - Neurological Exam Neurological Exam: Awake (confused , no focal motor.sensory deficit) - Skin Skin Exam: Warm Assessment and Plan (1) Acute cholecystitis Status: Acute (2) Sepsis Status: Acute (3) Dementia Status: Chronic (4) HTN (hypertension) Status: Acute (5) Chronic back pain Status: Chronic (6) Seizure Status: Chronic (7) Generalized weakness Status: Chronic (8) COPD (chronic obstructive pulmonary disease) Status: Chronic - Assessment and Plan (Free Text) Plan: continue Cipro , Aztreonam , Flagyl , DuoNeb , Nitro Paste and rest of treatment , Ativan 0.5 mg IV q 4-6hs PRN agitation , f/u [facility] clearance for Surgery
[2017-07-20] MEDS: Morphine 4 MG/ML VIAL IVP PRN (20:44)
[2017-07-21] MEDS: metroNIDAZOLE 500mg/100ml NS 100 ML IVPB SCH ×3 (00:17→16:13)
[2017-07-21] MEDS: Aztreonam 2 GM in Sodium Chloride 0.9% 100 ML IVPB SCH ×3 (00:17→16:12)
--- NOTE | 2017-07-21 05:26 | CON ---
DATE: 07/17/2017 REFERRING DOCTOR: Sj Lara MD REASON FOR CONSULTATION: Abdominal pain and fevers. HISTORY OF PRESENT ILLNESS: This is an 82-year-old female jail patient brought in for and tachycardia. The patient presently . The patient is currently lying in bed, confused, but in no apparent distress. PAST MEDICAL HISTORY: As above. PAST SURGICAL HISTORY: As above. MEDICATIONS: Have been reviewed. REVIEW OF SYSTEMS: Unable to obtain due to patient's dementia. PHYSICAL EXAMINATION: VITAL SIGNS: During the hospital are grossly unremarkable as aforementioned. GENERAL: A pleasant elderly-appearing female, lying in bed comfortably, in no apparent distress. HEENT: Head is normocephalic and atraumatic. Eyes, pupils are equally reactive to light bilaterally. No conjunctival pallor or icterus. NECK: Supple. Normal range of motion. No lymphadenopathy appreciated. LUNGS: Coarse breath sounds bilaterally. HEART: S1 and S2, regular rate and rhythm. No murmurs appreciated. ABDOMEN: Soft. Some discomfort. No rebound. No guarding. RECTAL: Deferred. EXTREMITIES: Pulses present bilaterally. SKIN: Warm, dry and intact. NEUROLOGIC: A and O x1. LABORATORY DATA: Labs were reviewed. WBC is 8.2, hemoglobin is 12.5, and hematocrit is 38.3. Total bilirubin is 3.6. AST is 762, ALT is 650, and alkaline phosphatase is 289. DIAGNOSTIC DATA: CAT scan of the abdomen and pelvis shows diffuse thickened gallbladder wall, gallstones are seen, stable proctitis. ASSESSMENT AND PLAN: This is an 82-year-old female with what appears to be chronic cholecystitis. Surgical consult is appreciated. Antibiotics as per ID. We will follow the patient with you. Thank you for the consult. Zack Hackett MD/ PhD cc: Sj Lara MD
[2017-07-21 05:38] LABS: BASO % 1.1 % (0.0-2.0); EOS # 0.2 K/uL (0.0-0.7); EOS % 7.8 % (0.0-4.0); HEMOGLOBIN 11.7 g/dL (12.0-16.0); LYMPH # 0.8 K/uL (1.0-4.3); LYMPH % 26.6 % (20.0-40.0); MEAN CELL VOLUME 86.5 fl (81.0-99.0); MEAN CORPUSCULAR HEMOGLOBIN 28.1 pg (27.0-31.0); MEAN CORPUSCULAR HGB CONC 32.5 g/dL (33.0-37.0); MEAN PLATELET VOLUME 9.5 fl (7.2-11.7); MONO # 0.7 K/uL (0.0-0.8); MONO % 20.9 % (0.0-10.0); NEUT # 1.4 K/uL (1.8-7.0); NEUT % 43.6 % (50.0-75.0); NRBC % 0.2 % (0.0-0.0); PLATELET COUNT 118 K/uL (130-400); RBC 4.15 Mil/uL (3.80-5.20); RED CELL DISTRIBUTION WIDTH 15.8 % (11.5-14.5); WHITE BLOOD COUNT 3.1 K/uL (4.8-10.8)
[2017-07-21 05:55] LABS: ALB/GLOB RATIO 0.9 (1.0-2.1); ALBUMIN 2.9 g/dL (3.5-5.0); ALT/SGPT 123 U/L (9-52); AST/SGOT 44 U/L (14-36); BLOOD UREA NITROGEN 2 mg/dl (7-17); CALCIUM 8.9 mg/dL (8.4-10.2); GFR AFRICAN-AMERICAN > 60; GFR NON-AFRICAN AMERICAN > 60
[2017-07-21] MEDS ORDERED: Potassium Chl 40 mEq in D5-1/2 1,000 ML IV SCH (07:45)
[2017-07-21] MEDS: Albuterol-Ipratrop 3 mg / 0.5 (3 ml) UD INH SCH ×3 (07:48→19:00)
--- NOTE | 2017-07-21 09:04 | CP.PCM.CON ---
History of Present Illness - History of Present Illness History of Present Illness: Consultation for preoperative cardiovascular risk stratification HPI: 82-year-old female with past medical history significant for hypertension dyslipidemia arthritis asthma anxiety depression osteoporosis seizure disorder dementia she admitted to the hospital from [facility] for complains of abdominal discomfort febrile episode. Patient was noted to have acute cholecystitis for which she underwent cholecystostomy tube placement and is being evaluated for preoperative cardiovascular risk stratification prior to cholecystectomy. I had seen her earlier in the year on May 06 for preoperative evaluation prior to a open reduction internal fixation after a mechanical fall and hip fracture patient had undergone a nuclear stress test which showed a very small area of defect with a normal ejection fraction. At baseline she has very limited activity secondary to advanced dementia arthritis. Clinically EKG shows no evidence of active ischemia shows sinus tachycardia with left axis deviation. Past medical history as stated above is significant for hypertension dyslipidemia arthritis asthma anxiety depression osteoporosis dementia seizure disorder past surgical history significant for left ORIF that was done in May by Dr. Surya Cortez kyphoplasty of L3 in 2014 tubal ligation. Allergies allergic to penicillin social history patient is a correction resident currently living in [facility]. Medications see chart for medication list. Review of Systems - Review of Systems Systems not reviewed;Unavailable: Acuity of Condition - Constitutional Constitutional: As Per HPI - EENT Eyes: As Per HPI Ears: As Per HPI Nose/Mouth/Throat: As Per HPI - Breasts Breasts: As Per HPI - Cardiovascular Cardiovascular: As Per HPI - Respiratory Respiratory: As Per HPI - Gastrointestinal Gastrointestinal: As Per HPI - Genitourinary Genitourinary: As Per HPI - Reproductive: Female Reproductive:Female: As Per HPI - Menstruation Menstruation: As Per HPI - Musculoskeletal Musculoskeletal: As Per HPI - Integumentary Integumentary: As Per HPI - Neurological Neurological: As Per HPI - Psychiatric Psychiatric: As Per HPI - Endocrine Endocrine: As Per HPI - Hematologic/Lymphatic Hematologic: As Per HPI Past Patient History - Infectious Disease Hx of Infectious Diseases: None - Past Medical History & Family History Past Medical History?: Yes - Past Social History Smoking Status: Never Smoked Chewing Tobacco Use: No Cigar Use: No Alcohol: None Home Situation {Lives}: [facility] - CARDIAC Hx Cardiac Disorders: Yes Hx Congestive Heart Failure: Yes Hx Hypercholesterolemia: Yes Hx Hypertension: Yes - PULMONARY Hx Respiratory Disorders: Yes Hx Asthma: Yes Hx Chronic Obstructive Pulmonary Disease (COPD): Yes - NEUROLOGICAL Hx Neurological Disorder: Yes Hx Dementia: Yes Hx Seizures: Yes - HEENT Hx HEENT Problems: No - RENAL Hx Chronic Kidney Disease: No - ENDOCRINE/METABOLIC Hx Endocrine Disorders: No - HEMATOLOGICAL/ONCOLOGICAL Hx Blood Disorders: Yes Hx Anemia: Yes Hx Human Immunodeficiency Virus (HIV): No - INTEGUMENTARY Hx Dermatological Problems: No - MUSCULOSKELETAL/RHEUMATOLOGICAL Hx Musculoskeletal Disorders: Yes Hx Arthritis: Yes (poly) Hx Fractures: Yes (L wrist , comp Fx T Spine) Hx Osteoporosis: Yes - GASTROINTESTINAL Hx Gastrointestinal Disorders: Yes Hx Constipation: Yes - GENITOURINARY/GYNECOLOGICAL Hx Genitourinary Disorders: Yes Hx Incontinence: Yes - PSYCHIATRIC Hx Psychophysiologic Disorder: Yes Hx Anxiety: Yes Hx Depression: Yes - SURGICAL HISTORY Hx Surgeries: Yes Hx Coronary Artery Bypass Graft: Yes - ANESTHESIA Hx Anesthesia: Yes Hx Anesthesia Reactions: No Hx Malignant Hyperthermia: No Meds Allergies/Adverse Reactions: Allergies Allergy/AdvReac Type Severity Reaction Status Date / Time Penicillins Allergy RASH Verified 05/25/17 12:15 - Medications Medications: Current Medications Acetaminophen (Tylenol 325 Mg Supp) 975 mg SC ONCE PRN PRN Reason: Fever >100.4 F Last Admin: 07/16/17 16:40 Dose: 975 mg Acetaminophen (Tylenol 650 Mg Supp) 650 mg SC Q6 PRN PRN Reason: Fever >100.4 F Albuterol/Ipratropium (Duoneb 3 Mg/0.5 Mg (3 Ml) Ud) 3 ml INH RQ6 PRN PRN Reason: Shortness of Breath Albuterol/Ipratropium (Duoneb 3 Mg/0.5 Mg (3 Ml) Ud) 3 ml INH RTID [facility] Last Admin: 07/21/17 07:48 Dose: 3 ml Clotrimazole (Lotrimin 1% Cream) 1 applic TOP BID [facility] Last Admin: 07/20/17 16:49 Dose: 1 applic Metronidazole (Flagyl 500mg/100ml Ns) 100 mls @ 100 mls/hr IVPB Q8 [facility]LE PRN Reason: Protocol Last Admin: 07/21/17 00:17 Dose: 100 mls/hr Ciprofloxacin (Cipro 400mg/200ml Dsw) 400 mg in 200 mls @ 200 mls/hr IVPB Q12 [facility]LE PRN Reason: Protocol Last Admin: 07/20/17 20:48 Dose: 200 mls/hr Aztreonam 2 gm/ Sodium (Chloride) 100 mls @ 100 mls/hr IVPB Q8 BELLE PRN Reason: Protocol Last Admin: 07/21/17 00:17 Dose: 100 mls/hr Potassium Chloride/Dextrose/Sod Cl (Potassium Chl 40 Meq In D5-1/2ns) 1,000 mls @ 100 mls/hr IV .Q10H [facility] Stop: 07/22/17 07:34 Lorazepam (Ativan) 0.5 mg IVP Q6 PRN PRN Reason: Agitation Last Admin: 07/21/17 00:37 Dose: 0.5 mg Morphine Sulfate (Morphine) 2 mg IVP Q6 PRN PRN Reason: Pain, moderate (4-7) Last Admin: 07/20/17 14:18 Dose: 2 mg Nitroglycerin (Nitro-Dur 0.2 Mg/Hr Patch) 1 patch TD DAILY [facility] Last Admin: 07/20/17 09:39 Dose: 1 patch Physical Exam - Constitutional Appears: Well - Head Exam Head Exam: ATRAUMATIC, NORMAL INSPECTION, NORMOCEPHALIC - Eye Exam Eye Exam: EOMI, Normal appearance, PERRL Pupil Exam: NORMAL ACCOMODATION, PERRL - ENT Exam ENT Exam: Mucous Membranes Moist, Normal Exam - Neck Exam Neck exam: Positive for: Normal Inspection - Respiratory Exam Respiratory Exam: Clear to Auscultation Bilateral, NORMAL BREATHING PATTERN - Cardiovascular Exam Cardiovascular Exam: REGULAR RHYTHM, RRR, +S1, +S2, Systolic Murmur - GI/Abdominal Exam GI & Abdominal Exam: Normal Bowel Sounds, Soft. absent: Tenderness - Extremities Exam Extremities exam: Positive for: normal inspection - Back Exam Back exam: NORMAL INSPECTION - Neurological Exam Neurological exam: Alert, Altered - Psychiatric Exam Psychiatric exam: Normal Affect, Normal Mood - Skin Skin Exam: Dry, Intact, Normal Color, Warm Results - Vital Signs Recent Vital Signs: Last Vital Signs Temp 98.7 F 07/21/17 08:00 Pulse 80 07/21/17 08:00 Resp 14 07/21/17 08:00 BP 102/55 L 07/21/17 08:00 Pulse Ox 95 07/21/17 08:00 - Labs Result Diagrams: 07/21/17 04:50 07/21/17 04:50 Labs: Laboratory Results - last 24 hr 07/21/17 07/21/17 07/21/17 04:50 04:50 04:50 WBC 3.1 L RBC 4.15 Hgb 11.7 L Hct 35.9 MCV 86.5 MCH 28.1 MCHC 32.5 L RDW 15.8 H Plt Count 118 L MPV 9.5 Neut % (Auto) 43.6 L Lymph % (Auto) 26.6 Brantley % (Auto) 20.9 H Eos % (Auto) 7.8 H Baso % (Auto) 1.1 Neut # (Auto) 1.4 L Lymph # (Auto) 0.8 L Brantley # (Auto) 0.7 Eos # (Auto) 0.2 Baso # (Auto) 0.0 APTT 29.7 Sodium 145 Potassium 3.2 L Chloride 105 Carbon Dioxide 27 Anion Gap 16 BUN 2 L Creatinine 0.3 L Est GFR ( Amer) > 60 Est GFR (Non-Af Amer) > 60 Random Glucose 102 Calcium 8.9 Total Bilirubin 0.7 AST 44 H ALT 123 H D Alkaline Phosphatase 140 H Total Protein 6.1 L Albumin 2.9 L Globulin 3.3 Albumin/Globulin Ratio 0.9 L Assessment & Plan (1) Preop cardiovascular exam Assessment and Plan: As per 2014 ACC/AHA guidelines Ms. Laureano had undergone a noninvasive evaluation with nuclear stress test in May of this year which showed low probability for significantly obstructive coronary artery disease. She can therefore proceed with the planned cholecystectomy for low risk for perioperative cardiac event. Status: Acute (2) Acute cholecystitis Status: Acute Priority: High (3) HTN (hypertension) Assessment and Plan: meds on hold 2' to infx and sepsis Status: Acute Priority: Medium
[2017-07-21] MEDS: Ciprofloxacin 400mg/200ml D5W 400 MG/200 ML BAG IVPB SCH ×2 (09:22→20:40)
[2017-07-21] MEDS: Nitroglycerin 0.2 mg/hr Top Patch TD SCH (09:25)
[2017-07-21 09:37] LABS: BASOPHIL 1 % (0-2); EOSINOPHIL 5 % (0-7); LYMPHOCYTE 24 % (20-50); MONOCYTE 21 % (0-10); NEUTROPHIL 49 % (42-75); TOTAL CELLS COUNTED 100
[2017-07-21 09:38] LABS: ANISOCYTOSIS SLIGHT; HYPOCHROMIC SLIGHT; LARGE PLATELETS PRESENT; OVALOCYTES SLIGHT; PLATELET ESTIMATE DECREASED (NORMAL)
--- NOTE | 2017-07-21 11:13 | CP.CCUPN ---
CCU Objective - Vital Signs / Intake & Output Vital Signs (Last 4 hours): Vital Signs Temp Pulse Resp BP Pulse Ox 07/21/17 09:25 99 H 144/72 07/21/17 08:00 98.7 F 80 14 102/55 L 95 Intake and Output (Last 8hrs): Intake & Output 07/20/17 07/21/17 07/21/17 22:59 06:59 14:59 Intake Total 1000 1000 Balance 1000 1000 Intake: IV 700 800 Intake, Piggyback 300 200 - Physical Exam Head: Positive for: Atraumatic, Normocephalic. Negative for: Tenderness, Contusion Pupils: Positive for: PERRL. Negative for: Sluggish Extroacular Muscles: Positive for: EOMI Conjunctiva: Positive for: Normal Ears: Positive for: Normal Mouth: Positive for: Moist Mucous Membranes Nose (Internal): Positive for: Normal Inspection Respiratory/Chest: Positive for: Clear to Auscultation, Good Air Exchange. Negative for: Respiratory Distress, Accessory Muscle Use Cardiovascular: Positive for: Regular Rate and Rhythm, Normal S1, S2, Peripheal Pulses Present. Negative for: Murmurs Abdomen: Positive for: Normal Bowel Sounds. Negative for: Tenderness, Distention, Peritoneal Signs, Rebound - Medications Active Medications: Active Medications Generic Name Dose Route Start Last Admin Trade Name Freq PRN Reason Stop Dose Admin Acetaminophen 975 mg 07/16/17 16:15 07/16/17 16:40 Tylenol 325 Mg Supp [place] 975 mg ONCE PRN Administration Fever >100.4 F Acetaminophen 650 mg 07/16/17 21:18 Tylenol 650 Mg Supp [place] Q6 PRN Fever >100.4 F Albuterol/Ipratropium 3 ml 07/16/17 22:04 Duoneb 3 Mg/0.5 Mg (3 Ml) Ud INH RQ6 PRN Shortness of Breath Albuterol/Ipratropium 3 ml 07/18/17 14:00 07/21/17 07:48 Duoneb 3 Mg/0.5 Mg (3 Ml) Ud INH 3 ml RTID [facility] Administration Clotrimazole 1 applic 07/19/17 17:00 07/21/17 09:25 Lotrimin 1% Cream TOP 1 applic BID BELLE Administration Metronidazole 100 mls @ 100 mls/hr 07/17/17 01:00 07/21/17 09:33 Flagyl 500mg/100ml Ns IVPB 100 mls/hr Q8 BELLE Administration Protocol Ciprofloxacin 400 mg in 200 mls @ 200 mls/hr 07/16/17 21:15 07/21/17 09:22 Cipro 400mg/200ml Dsw IVPB 200 mls/hr Q12 [facility]LE Administration Protocol Aztreonam 2 gm/ Sodium 100 mls @ 100 mls/hr 07/17/17 17:00 07/21/17 09:33 Chloride IVPB 100 mls/hr Q8 [facility]LE Administration Protocol Potassium Chloride/Dextrose/Sod Cl 1,000 mls @ 100 mls/hr 07/21/17 07:45 09:09 Potassium Chl 40 Meq In D5-1/2ns IV 07/22/17 07:34 100 mls/hr .Q10H [facility] Administration Lorazepam 0.5 mg 07/20/17 14:44 07/21/17 09:39 Ativan IVP 0.5 mg Q6 PRN Administration Agitation Morphine Sulfate 2 mg 07/16/17 21:26 07/20/17 14:18 Morphine IVP 2 mg Q6 PRN Administration Pain, moderate (4-7) Nitroglycerin 1 patch 07/17/17 09:00 07/21/17 09:25 Nitro-Dur 0.2 Mg/Hr Patch TD 1 patch DAILY [facility]LE Administration - Patient Studies Lab Studies: Lab Studies 07/21/17 07/21/17 07/21/17 Range/Units 04:50 04:50 04:50 WBC 3.1 L (4.8-10.8) K/uL RBC 4.15 (3.80-5.20) Mil/uL Hgb 11.7 L (12.0-16.0) g/dL Hct 35.9 (34.0-47.0) % MCV 86.5 (81.0-99.0) fl MCH 28.1 (27.0-31.0) pg MCHC 32.5 L (33.0-37.0) g/dL RDW 15.8 H (11.5-14.5) % Plt Count 118 L (130-400) K/uL MPV 9.5 (7.2-11.7) fl Neut % (Auto) 43.6 L (50.0-75.0) % Lymph % (Auto) 26.6 (20.0-40.0) % Emmet % (Auto) 20.9 H (0.0-10.0) % Eos % (Auto) 7.8 H (0.0-4.0) % Baso % (Auto) 1.1 (0.0-2.0) % Neut # (Auto) 1.4 L (1.8-7.0) K/uL Lymph # (Auto) 0.8 L (1.0-4.3) K/uL Emmet # (Auto) 0.7 (0.0-0.8) K/uL Eos # (Auto) 0.2 (0.0-0.7) K/uL Baso # (Auto) 0.0 (0.0-0.2) K/uL Neutrophils % (Manual) 49 (42-75) % Lymphocytes % (Manual) 24 (20-50) % Monocytes % (Manual) 21 H (0-10) % Eosinophils % (Manual) 5 (0-7) % Basophils % (Manual) 1 (0-2) % Platelet Estimate Decreased L (NORMAL) Large Platelets Present Hypochromasia (manual) Slight Anisocytosis (manual) Slight Ovalocytes Slight APTT 29.7 (25.6-37.1) Seconds Sodium 145 (132-148) mmol/l Potassium 3.2 L (3.6-5.0) MMOL/L Chloride 105 (98-107) mmol/L Carbon Dioxide 27 (22-30) mmol/L Anion Gap 16 (10-20) BUN 2 L (7-17) mg/dl Creatinine 0.3 L (0.7-1.2) mg/dl Est GFR ( Amer) > 60 Est GFR (Non-Af Amer) > 60 Random Glucose 102 (65-105) mg/dL Calcium 8.9 (8.4-10.2) mg/dL Total Bilirubin 0.7 (0.2-1.3) mg/dl AST 44 H (14-36) U/L ALT 123 H D (9-52) U/L Alkaline Phosphatase 140 H (38-126) U/L Total Protein 6.1 L (6.3-8.2) G/DL Albumin 2.9 L (3.5-5.0) g/dL Globulin 3.3 (2.2-3.9) gm/dL Albumin/Globulin Ratio 0.9 L (1.0-2.1) Laboratory Results - last 24 hr 07/21/17 07/21/17 07/21/17 04:50 04:50 04:50 WBC 3.1 L RBC 4.15 Hgb 11.7 L Hct 35.9 MCV 86.5 MCH 28.1 MCHC 32.5 L RDW 15.8 H Plt Count 118 L MPV 9.5 Neut % (Auto) 43.6 L Lymph % (Auto) 26.6 Emmet % (Auto) 20.9 H Eos % (Auto) 7.8 H Baso % (Auto) 1.1 Neut # (Auto) 1.4 L Lymph # (Auto) 0.8 L Emmet # (Auto) 0.7 Eos # (Auto) 0.2 Baso # (Auto) 0.0 Neutrophils % (Manual) 49 Lymphocytes % (Manual) 24 Monocytes % (Manual) 21 H Eosinophils % (Manual) 5 Basophils % (Manual) 1 Platelet Estimate Decreased L Large Platelets Present Hypochromasia (manual) Slight Anisocytosis (manual) Slight Ovalocytes Slight APTT 29.7 Sodium 145 Potassium 3.2 L Chloride 105 Carbon Dioxide 27 Anion Gap 16 BUN 2 L Creatinine 0.3 L Est GFR ( Amer) > 60 Est GFR (Non-Af Amer) > 60 Random Glucose 102 Calcium 8.9 Total Bilirubin 0.7 AST 44 H ALT 123 H D Alkaline Phosphatase 140 H Total Protein 6.1 L Albumin 2.9 L Globulin 3.3 Albumin/Globulin Ratio 0.9 L Fingerstick Blood Sugar Results: 144 Critical Care Progress Note - Nutrition Nutrition: Nutrition Category Date Time Status NPO Diet [DIET] Diets 07/16/17 Dinner Active
--- NOTE | 2017-07-21 12:40 | CP.PCM.PN ---
Subjective - Date & Time of Evaluation Date of Evaluation: 07/21/17 Time of Evaluation: 12:00 - Subjective Subjective: F/U acute Cholecystitis. Confused , no AD , N/C of abdominal pain Objective - Vital Signs/Intake and Output Vital Signs (last 24 hours): Temp Pulse Resp BP Pulse Ox 98.1 F 93 H 13 141/73 98 07/21/17 12:00 07/21/17 12:00 07/21/17 12:00 07/21/17 12:00 07/21/17 12:00 Intake and Output: 07/21/17 07/21/17 06:59 18:59 Intake Total 1600 1000 Output Total 1 Balance 1600 999 - Medications Medications: Current Medications Acetaminophen (Tylenol 325 Mg Supp) 975 mg [place] ONCE PRN PRN Reason: Fever >100.4 F Last Admin: 07/16/17 16:40 Dose: 975 mg Acetaminophen (Tylenol 650 Mg Supp) 650 mg [place] Q6 PRN PRN Reason: Fever >100.4 F Albuterol/Ipratropium (Duoneb 3 Mg/0.5 Mg (3 Ml) Ud) 3 ml INH RQ6 PRN PRN Reason: Shortness of Breath Albuterol/Ipratropium (Duoneb 3 Mg/0.5 Mg (3 Ml) Ud) 3 ml INH RTID [facility] Last Admin: 07/21/17 07:48 Dose: 3 ml Clotrimazole (Lotrimin 1% Cream) 1 applic TOP BID [facility] Last Admin: 07/21/17 09:25 Dose: 1 applic Metronidazole (Flagyl 500mg/100ml Ns) 100 mls @ 100 mls/hr IVPB Q8 [facility]LE PRN Reason: Protocol Last Admin: 07/21/17 09:33 Dose: 100 mls/hr Ciprofloxacin (Cipro 400mg/200ml Dsw) 400 mg in 200 mls @ 200 mls/hr IVPB Q12 [facility]LE PRN Reason: Protocol Last Admin: 07/21/17 09:22 Dose: 200 mls/hr Aztreonam 2 gm/ Sodium (Chloride) 100 mls @ 100 mls/hr IVPB Q8 [facility]LE PRN Reason: Protocol Last Admin: 07/21/17 09:33 Dose: 100 mls/hr Potassium Chloride/Dextrose/Sod Cl (Potassium Chl 40 Meq In D5-1/2ns) 1,000 mls @ 100 mls/hr IV .Q10H [facility] Stop: 07/22/17 07:34 Last Admin: 07/21/17 09:09 Dose: 100 mls/hr Lorazepam (Ativan) 0.5 mg IVP Q6 PRN PRN Reason: Agitation Last Admin: 07/21/17 09:39 Dose: 0.5 mg Morphine Sulfate (Morphine) 2 mg IVP Q6 PRN PRN Reason: Pain, moderate (4-7) Last Admin: 07/20/17 14:18 Dose: 2 mg Nitroglycerin (Nitro-Dur 0.2 Mg/Hr Patch) 1 patch TD DAILY [facility] Last Admin: 07/21/17 09:25 Dose: 1 patch - Labs Labs: 07/21/17 04:50 07/21/17 04:50 PT 13.0 Seconds (9.8-13.1) 07/16/17 16:25 INR 1.2 (0.9-1.2) 07/16/17 16:25 APTT 29.7 Seconds (25.6-37.1) 07/21/17 04:50 - Constitutional Appears: Chronically Ill - Head Exam Head Exam: NORMAL INSPECTION - Eye Exam Eye Exam: PERRL - ENT Exam ENT Exam: Normal Exam - Neck Exam Neck Exam: Normal Inspection - Respiratory Exam Respiratory Exam: Decreased Breath Sounds (at bases) - Cardiovascular Exam Cardiovascular Exam: REGULAR RHYTHM, Murmur (2/6 LSB) Additional comments: Sternotomy scar - GI/Abdominal Exam GI & Abdominal Exam: Soft, Normal Bowel Sounds - Extremities Exam Extremities Exam: Normal Inspection - Back Exam Back Exam: NORMAL INSPECTION - Neurological Exam Neurological Exam: Awake Additional comments: Confused , no focal motor/sensory deficit , generalized weakness - Psychiatric Exam Psychiatric exam: Anxious - Skin Skin Exam: Warm Assessment and Plan (1) Acute cholecystitis Status: Acute (2) Sepsis Status: Acute (3) Dementia Status: Chronic (4) HTN (hypertension) Status: Acute (5) Chronic back pain Status: Chronic (6) Seizure Status: Chronic (7) Generalized weakness Status: Chronic (8) COPD (chronic obstructive pulmonary disease) Status: Chronic - Assessment and Plan (Free Text) Plan: Cleared by Supervisor [place], Medically cleared for Surgery , NPO , for Cholecystectomy 2pm
--- NOTE | 2017-07-21 13:19 | CP.PCM.PN ---
Subjective - Date & Time of Evaluation Date of Evaluation: 07/21/17 Time of Evaluation: 07:00 - Subjective Subjective: weak and lethargic but NAD on IV rx for gram neg sepsis / cholecystitis awaiting clearance by Dr Varghese Objective - Vital Signs/Intake and Output Vital Signs (last 24 hours): Temp Pulse Resp BP Pulse Ox 98.1 F 93 H 13 141/73 98 07/21/17 12:00 07/21/17 12:00 07/21/17 12:00 07/21/17 12:00 07/21/17 12:00 Intake and Output: 07/21/17 07/21/17 06:59 18:59 Intake Total 1600 1000 Output Total 1 Balance 1600 999 - Medications Medications: Current Medications Acetaminophen (Tylenol 325 Mg Supp) 975 mg [place] ONCE PRN PRN Reason: Fever >100.4 F Last Admin: 07/16/17 16:40 Dose: 975 mg Acetaminophen (Tylenol 650 Mg Supp) 650 mg [place] Q6 PRN PRN Reason: Fever >100.4 F Albuterol/Ipratropium (Duoneb 3 Mg/0.5 Mg (3 Ml) Ud) 3 ml INH RQ6 PRN PRN Reason: Shortness of Breath Albuterol/Ipratropium (Duoneb 3 Mg/0.5 Mg (3 Ml) Ud) 3 ml INH RTID [facility] Last Admin: 07/21/17 07:48 Dose: 3 ml Clotrimazole (Lotrimin 1% Cream) 1 applic TOP BID [facility] Last Admin: 07/21/17 09:25 Dose: 1 applic Metronidazole (Flagyl 500mg/100ml Ns) 100 mls @ 100 mls/hr IVPB Q8 BELLE PRN Reason: Protocol Last Admin: 07/21/17 09:33 Dose: 100 mls/hr Ciprofloxacin (Cipro 400mg/200ml Dsw) 400 mg in 200 mls @ 200 mls/hr IVPB Q12 [facility]LE PRN Reason: Protocol Last Admin: 07/21/17 09:22 Dose: 200 mls/hr Aztreonam 2 gm/ Sodium (Chloride) 100 mls @ 100 mls/hr IVPB Q8 [facility]LE PRN Reason: Protocol Last Admin: 07/21/17 09:33 Dose: 100 mls/hr Potassium Chloride/Dextrose/Sod Cl (Potassium Chl 40 Meq In D5-1/2ns) 1,000 mls @ 100 mls/hr IV .Q10H [facility] Stop: 07/22/17 07:34 Last Admin: 07/21/17 09:09 Dose: 100 mls/hr Lorazepam (Ativan) 0.5 mg IVP Q6 PRN PRN Reason: Agitation Last Admin: 07/21/17 09:39 Dose: 0.5 mg Morphine Sulfate (Morphine) 2 mg IVP Q6 PRN PRN Reason: Pain, moderate (4-7) Last Admin: 07/20/17 14:18 Dose: 2 mg Nitroglycerin (Nitro-Dur 0.2 Mg/Hr Patch) 1 patch TD DAILY [facility] Last Admin: 07/21/17 09:25 Dose: 1 patch - Labs Labs: 07/21/17 04:50 07/21/17 04:50 PT 13.0 Seconds (9.8-13.1) 07/16/17 16:25 INR 1.2 (0.9-1.2) 07/16/17 16:25 APTT 29.7 Seconds (25.6-37.1) 07/21/17 04:50 - Constitutional Appears: Non-toxic, Cachectic, Chronically Ill - Head Exam Head Exam: NORMOCEPHALIC - Eye Exam Eye Exam: PERRL. absent: Scleral icterus - ENT Exam ENT Exam: Mucous Membranes Dry, Normal External Ear Exam - Neck Exam Neck Exam: absent: Lymphadenopathy - Respiratory Exam Respiratory Exam: Decreased Breath Sounds, Clear to Ausculation Bilateral - Cardiovascular Exam Cardiovascular Exam: REGULAR RHYTHM, +S1, +S2 - GI/Abdominal Exam GI & Abdominal Exam: Distended, Soft. absent: Tenderness - Rectal Exam Rectal Exam: Deferred - Exam Exam: NORMAL INSPECTION - Extremities Exam Extremities Exam: absent: Pedal Edema - Back Exam Back Exam: absent: CVA tenderness (L), CVA tenderness (R) - Neurological Exam Neurological Exam: Altered Neuro motor strength exam: Left Upper Extremity: 2/1, Right Upper Extremity: 2/1 , Left Lower Extremity: 2/1, Right Lower Extremity: 2/1 - Psychiatric Exam Psychiatric exam: Depressed - Skin Skin Exam: Dry Assessment and Plan (1) Cholecystitis Status: Acute (2) Sepsis Status: Acute (3) Abdominal pain Status: Acute (4) Dementia Status: Acute (5) Depression Status: Acute - Assessment and Plan (Free Text) Assessment: overall poor prognosis consider d/c aztreonam cont cipro/flagyl
--- NOTE | 2017-07-21 17:17 | CP.PCM.PN ---
Subjective - Date & Time of Evaluation Date of Evaluation: 07/21/17 Time of Evaluation: 10:00 - Subjective Subjective: no overnight events Objective - Vital Signs/Intake and Output Vital Signs (last 24 hours): Temp Pulse Resp BP Pulse Ox 98.4 F 104 H 19 125/70 98 07/21/17 16:37 07/21/17 16:37 07/21/17 16:37 07/21/17 16:37 07/21/17 16:37 Intake and Output: 07/21/17 07/21/17 06:59 18:59 Intake Total 1600 1000 Output Total 1 Balance 1600 999 - Medications Medications: Current Medications Acetaminophen (Tylenol 325 Mg Supp) 975 mg [place] ONCE PRN PRN Reason: Fever >100.4 F Last Admin: 07/16/17 16:40 Dose: 975 mg Acetaminophen (Tylenol 650 Mg Supp) 650 mg [place] Q6 PRN PRN Reason: Fever >100.4 F Albuterol/Ipratropium (Duoneb 3 Mg/0.5 Mg (3 Ml) Ud) 3 ml INH RQ6 PRN PRN Reason: Shortness of Breath Albuterol/Ipratropium (Duoneb 3 Mg/0.5 Mg (3 Ml) Ud) 3 ml INH RTID [facility] Last Admin: 07/21/17 13:18 Dose: 3 ml Clotrimazole (Lotrimin 1% Cream) 1 applic TOP BID [facility] Last Admin: 07/21/17 16:14 Dose: 1 applic Metronidazole (Flagyl 500mg/100ml Ns) 100 mls @ 100 mls/hr IVPB Q8 [facility] PRN Reason: Protocol Last Admin: 07/21/17 16:13 Dose: 100 mls/hr Ciprofloxacin (Cipro 400mg/200ml Dsw) 400 mg in 200 mls @ 200 mls/hr IVPB Q12 [facility] PRN Reason: Protocol Last Admin: 07/21/17 09:22 Dose: 200 mls/hr Aztreonam 2 gm/ Sodium (Chloride) 100 mls @ 100 mls/hr IVPB Q8 [facility] PRN Reason: Protocol Last Admin: 07/21/17 16:12 Dose: 100 mls/hr Potassium Chloride/Dextrose/Sod Cl (Potassium Chl 40 Meq In D5-1/2ns) 1,000 mls @ 100 mls/hr IV .Q10H [facility] Stop: 07/22/17 07:34 Last Admin: 07/21/17 09:09 Dose: 100 mls/hr Lorazepam (Ativan) 0.5 mg IVP Q6 PRN PRN Reason: Agitation Last Admin: 07/21/17 09:39 Dose: 0.5 mg Morphine Sulfate (Morphine) 2 mg IVP Q6 PRN PRN Reason: Pain, moderate (4-7) Last Admin: 07/20/17 14:18 Dose: 2 mg Nitroglycerin (Nitro-Dur 0.2 Mg/Hr Patch) 1 patch TD DAILY [facility] Last Admin: 07/21/17 09:25 Dose: 1 patch - Labs Labs: 07/21/17 04:50 07/21/17 04:50 PT 13.0 Seconds (9.8-13.1) 07/16/17 16:25 INR 1.2 (0.9-1.2) 07/16/17 16:25 APTT 29.7 Seconds (25.6-37.1) 07/21/17 04:50 - Head Exam Head Exam: NORMOCEPHALIC - Neck Exam Neck Exam: Normal Inspection - Respiratory Exam Respiratory Exam: Clear to Ausculation Bilateral, NORMAL BREATHING PATTERN - Cardiovascular Exam Cardiovascular Exam: REGULAR RHYTHM - GI/Abdominal Exam GI & Abdominal Exam: Soft, Normal Bowel Sounds Assessment and Plan - Assessment and Plan (Free Text) Assessment: 82 yo female with cholecystitis for OR when able abx
[2017-07-21] MEDS ORDERED: Lactated Ringer's 1,000 ML IV ONE (17:25)
[2017-07-21] MEDS ORDERED: Succinylcholine 200 mg/10 ml Inj IV ONE (17:26)
[2017-07-21] MEDS ORDERED: Etomidate 20 mg/10ml Inj IV ONE (17:26)
[2017-07-21] MEDS ORDERED: Rocuronium 10 mg/ml (5 ml) ONE ×2 (17:41→18:24)
[2017-07-21] MEDS ORDERED: Esmolol 100 mg/10ml Inj IV ONE (17:50)
[2017-07-21] MEDS ORDERED: Labetalol 5mg/ml (4ml) ONE (17:58)
[2017-07-21] MEDS ORDERED: Bupivacaine 0.5% 50 ML IJ ONE ×2 (18:38→18:45)
[2017-07-21] MEDS ORDERED: Midazolam 2 MG/2 ML VIAL ONE (18:50)
--- NOTE | 2017-07-21 18:52 | CP.CCUPN ---
CCU Subjective - Physician Review Subjective (Free Text): 82F admitted 5 days ago from [place] for fevers and abd pain, had cholecystitis one month ago and had PTC placed, and Klebsiella bacteremia, has been on Cipro, Aztreonam, Vancomycin and Diflucan, underwent Lap Akanksha today, brought to ICU, kept intubated on MV support with hypertensive response during GA. No attempts made at extubation. Arrived to ICU, breathing / 12 on PRVC AC mode, TV 550ml , 40% oxygen with PEEP 5. Other Vitals and I/Os reviewed. ROS: No other pertinent negs or positives on 10+ system review, obtunded PMH: HTN, Hyperlipidemia, Seizures, Dementia, Depression, COPD, multiple compressions of the thoracic spine, rib fractures, left Femur fracture, Osteoporosis. All other historical Nursing and physician documentation reviewed to date; no new pertinent info noted relevant to current medical problems. EXAM- HEENT: no icterus, no gaze preference, pupils equal and reactive, no icterus NECK: No JVD, supple, carotids equal upstroke bilat/no bruits CHEST: decreased BS bases, otherwise clear bilat, no wheezes audible HEART: regular distant, S1S2, no rubs. ABD: soft, +distention, with tympany, no palp tenderness, BS hypoactive, dressing / drain intact. EXT: +bilat edema. No peripheral/ digital cyanosis, no calf tenderness or palpable cords, distal pulses intact and symmetrical. NEURO: no gross focal motor deficits SKIN: no rashes, warm and dry. LABS: (Pre-op) WBC= 3.1 HGB= 11.7 PLTs= 118K Na= 145 K= 3.2 CL= 105 HCO3= 27 BUN/Cr= 2/0.3 BS= 102 CXR: ( my interp): None ordered today. Film from 07/19/17 reviewed. MAJOR PROBLEMS: 1. S/p Lap Akanksha for Cholecystitis 2. Acute Resp Insuff Post-operatively, r/o non-emergence from anesthesia versus other new pulm pathology 3. Intra-op Accelerated HTN 4. Kleb bacteremia 5. Hypokalemia PLAN: 1. MV support as dictated by Anesthesiologist. Check CXR. Re-adjust TV to IBW. Obtain ABG. Extubate when patient awakens from anesthesia and sedation. 2. Hypotensive, then became normotensive upon arrival to ICU, monitor trends. IVF hydration, fluid challenge prn. 3. K supplemented via IVFs this AM pre-op, check repeat lytes. 4. Continue Cipro, could narrow and stop other abx coverage unless coverage needed by surgical team. 5. SCDs, and PPi. CCU Objective - Vital Signs / Intake & Output Vital Signs (Last 4 hours): Vital Signs Temp Pulse Resp BP Pulse Ox 07/21/17 16:37 98.4 F 104 H 19 125/70 98 Intake and Output (Last 8hrs): Intake & Output 07/21/17 07/21/17 07/21/17 06:59 14:59 22:59 Intake Total 1000 1200 200 Output Total 2 1 Balance 1000 1198 199 Intake: IV 800 800 200 Intake, Piggyback 200 400 Output: Urine 2 1 Urine, Voided 2 1 Other: # Voids Urine, Voided 1 - Patient Studies Fingerstick Blood Sugar Results: 144 Critical Care Progress Note - Nutrition Nutrition: Nutrition Category Date Time Status NPO Diet [DIET] Diets 07/16/17 Dinner Active
--- NOTE | 2017-07-21 19:18 | PCM.SURG1 ---
Surgeon's Initial Post Op Note - Surgeon's Notes Surgeon: peggy Supplier Relationship Director: MD Wilfred. DO Wendy, PGY2. Job Schrader DPM,PGY1. Pre-Operative Diagnosis: Acute cholecystitis Operative Findings: Inflammed gallbladder. Purulent fluid from gallbladder. Extensive adhesions. Post-Operative Diagnosis: Acute cholecystitis Operation Performed: Lysis of adhesions. Laparoscopic cholecystectomy. Specimen/Specimens Removed: Gallbladder Estimated Blood Loss: EBL {In ML}: 100 Drains Used: Checo Date of Surgery/Procedure: 07/21/17 Time of Surgery/Procedure: 18:00
[2017-07-22] MEDS: metroNIDAZOLE 500mg/100ml NS 100 ML IVPB SCH ×2 (00:04→20:14)
[2017-07-22] MEDS: Aztreonam 2 GM in Sodium Chloride 0.9% 100 ML IVPB SCH ×2 (00:04→08:32)
--- NOTE | 2017-07-22 02:15 | OP ---
PROCEDURE DATE: PREOPERATIVE DIAGNOSIS: Acute cholecystitis. POSTOPERATIVE DIAGNOSIS: Acute cholecystitis. PROCEDURE: Laparoscopic cholecystectomy. SURGEON: Josh Zarate MD WINDOWS SERVER SUPPORT TECHNICIAN: Wilfred. SECOND WINDOWS SERVER SUPPORT TECHNICIAN: Goldie. THIRD WINDOWS SERVER SUPPORT TECHNICIAN: Raciel. TYPE OF ANESTHESIA: General endotracheal intubation. ANESTHESIA ADMINISTERED BY: Jenn Christopher MD IV FLUID INTAKE: Crystalloids. ESTIMATED BLOOD LOSS: 100 mL INTRAOPERATIVE FINDINGS: Extensive intraabdominal adhesions and cholecystitis. SPECIMEN: Gallbladder. BRIEF HISTORY: Mrs. Laureano is an 82-year-old female who actually known to our surgical service from her prior admission to [facility] for acute cholecystitis when the patient was treated conservatively with cholecystostomy tube and antibiotics. Subsequent to that, the patient improved and was discharge to the senior living. However, represented to the hospital with fever and upon further investigation was found to have acute cholecystitis again. At the time of presentation, the patient's liver enzymes were elevated, so MRCP was obtained and it did not reveal any choledocholithiasis. Subsequent to that, the patient's liver enzymes improved and the patient was taken to the operating room after medical and cardiac clearance. All the risks and benefits of the procedure were explained to the patient's son and with the patient's son having a full understanding of all the risks and benefits involved; informed consent was obtained, and the patient was taken to the operating room for above-stated procedure. DESCRIPTION OF PROCEDURE: The patient was brought into the operating room and placed supine on the operating room table. Bilateral Flowtron boots were applied to the patient's lower extremities. After successful induction of anesthesia and successful endotracheal intubation by the anesthesia team, the patient's abdomen was prepped with ChloraPrep stick and draped in a standard surgical fashion. Prior to the beginning of the procedure, a time-out was called in the room and everyone in the room were in agreement. Using Veress needle, the patient's abdomen was entered at the umbilicus and pneumoperitoneum was achieved with good opening pressures. Once this was accomplished, using an 11 blade scalpel knife, approximately 1-cm incision was made in the umbilicus in the longitudinal fashion and subsequent to that, an 11-mm trocar was introduced into the patient's abdomen. At this point in time, 5-mm 0-degree scope was introduced into the patient's abdomen and the abdomen was inspected. We immediately were able to visualize multiple intraabdominal adhesions as well as transverse colon appeared to be stuck to the area where the gallbladder is. Then attention was turned to the right side of the patient's abdomen and using 11 blade scalpel knife, 5-mm incision was made in a transverse fashion and subsequent to that, 5-mm trocar was introduced into the patient's abdomen. At that point in time, using laparoscopic scissors some of the adhesions were taken down sharply. At that point in time, once the area around subxiphoid area was cleared from the adhesions using 11 blade scalpel knife, 5-mm incision was made in transverse fashion and subsequent to that another 5-mm trocar was introduced into the patient's abdomen. At this point in time, using laparoscopic scissors more of the intraabdominal adhesions were taken down. At this point in time, we able to visualized the gallbladder, then attention was turned to the right side of the patient's abdomen again using 11 blade scalpel knife. Another 5-mm incision was made in transverse fashion and subsequent to that another 5-mm trocar was introduced into the patient's abdomen. Subsequent to that, gallbladder was grasped at the fundus and infundibulum, and using suction irrigation device, the transverse colon as well as omental adhesions were teased down and subsequent to that using [place] dissector, cystic duct and cystic artery were dissected out and a critical view of safety was achieved. At this point in time, cystic duct was clipped with two clips proximal, one distal, and transected with laparoscopic scissors, same thing was done for the cystic artery, it was clipped with two clips proximal, one distal, and transected with laparoscopic scissor. Subsequent to that, the gallbladder was dissected of the gallbladder fossa using spatular electrocautery and once the gallbladder was completely dissected of the gallbladder fossa, endo catch bag was introduced into the patient's abdomen; gallbladder was placed inside of the bag and the bag was closed. At this point in time, gallbladder fossa was inspected for hemostasis. Hemostasis was achieved with spatular electrocautery; however, there appeared to be some clot in the gallbladder fossa, so it was irrigated and suctioned out and subsequent to that we made decision to use two sheaths of Surgicel place into the gallbladder fossa. Subsequent to that, we made a decision to use #19-checo drain, #19-checo was brought out through the lateral 5-mm port in the right side and secured and placed with silk suture and tip of the Checo drain was placed into the gallbladder fossa. At this point in time, 11-mm trocar together with endo catch bag and gallbladder were removed from the patient's abdomen and passed off to the [facility] as a specimen. Fascial layer at the umbilical port site was closed with two interrupted 0 Vicryl sutures and UR-5 needle, and subsequent to that, the patient's abdomen was fully desufflated. The rest of the trocars were removed from the patient's abdomen and the skin was closed with 4-0 Monocryl suture in a running subcuticular fashion. At the end of the procedure, incision sites were infiltrated with Marcaine anesthetic. The patient's abdomen was washed and dried, and Dermabond was applied to the site of the incisions and 4 x 4 medium size Tegaderm were applied to the side of the insertion of the Checo drain. The patient was transferred to the stretcher, and was kept intubated and taken back to the ICU.. At the end of the procedure; all instrument counts, needles, and sponges were correct. Josh Zarate MD MTDD
[2017-07-22 05:19] LABS: ABG ALLEN TEST YES; ARTERIAL BLOOD GAS HCO3 28.2 mmol/L (21-28); ARTERIAL BLOOD GAS HEMOGLOBIN 13.7 g/dL (11.7-17.4); ARTERIAL BLOOD GAS O2 SAT 99.9 % (95-98); ARTERIAL BLOOD GAS PCO2 25 mm/Hg (35-45); ARTERIAL BLOOD GAS PO2 161 mm/Hg (80-100); ARTERIAL BLOOD GAS TCO2 25.3 mmol/L (22-28)
[2017-07-22 05:39] LABS: HEMOGLOBIN 13.4 g/dL (12.0-16.0); MEAN CORPUSCULAR HEMOGLOBIN 27.8 pg (27.0-31.0); MEAN CORPUSCULAR HGB CONC 32.3 g/dL (33.0-37.0); RBC 4.83 Mil/uL (3.80-5.20); RED CELL DISTRIBUTION WIDTH 16.2 % (11.5-14.5); WHITE BLOOD COUNT 7.9 K/uL (4.8-10.8)
[2017-07-22 06:21] LABS: BLOOD UREA NITROGEN 4 mg/dl (7-17); GFR AFRICAN-AMERICAN > 60; GFR NON-AFRICAN AMERICAN > 60
[2017-07-22] MEDS ORDERED: Magnesium Sulfate 1 GM in Dextrose 5% In Water 100 ML IVPB ONE (07:15)
[2017-07-22] MEDS: Albuterol-Ipratrop 3 mg / 0.5 (3 ml) UD INH SCH ×3 (07:30→19:42)
[2017-07-22] MEDS: Potassium Chloride 20 mEq 100 ML IVPB SCH ×2 (08:31→10:39)
--- NOTE | 2017-07-22 08:31 | CP.PCM.PN ---
<Kylee Rojas - Last Filed: 07/22/17 08:28> Subjective - Date & Time of Evaluation Date of Evaluation: 07/22/17 Time of Evaluation: 08:28 - Subjective Subjective: General Surgery - Dr. Zarate Pt S&E. Overnight febrile w/ tmax 102.6. Currently remains intubated, sedated. Checo drain in RUQ with serosanguinous drainage. Objective - Vital Signs/Intake and Output Vital Signs (last 24 hours): Temp Pulse Resp BP Pulse Ox 100.4 F H 106 H 12 103/63 100 07/22/17 08:00 07/22/17 08:00 07/22/17 08:00 07/22/17 08:00 07/22/17 08:00 Intake and Output: 07/22/17 07/22/17 06:59 18:59 Intake Total 1300 200 Output Total 185 Balance 1115 200 - Medications Medications: Current Medications Acetaminophen (Tylenol 325 Mg Supp) 975 mg [place] ONCE PRN PRN Reason: Fever >100.4 F Last Admin: 07/16/17 16:40 Dose: 975 mg Acetaminophen (Tylenol 650 Mg Supp) 650 mg [place] Q6 PRN PRN Reason: Fever >100.4 F Last Admin: 07/22/17 01:24 Dose: 650 mg Acetaminophen (Tylenol 650 Mg Supp) 650 mg [place] Q6 PRN PRN Reason: Fever >100.4 F Albuterol/Ipratropium (Duoneb 3 Mg/0.5 Mg (3 Ml) Ud) 3 ml INH RQ6 PRN PRN Reason: Shortness of Breath Albuterol/Ipratropium (Duoneb 3 Mg/0.5 Mg (3 Ml) Ud) 3 ml INH RTID [facility] Last Admin: 07/22/17 07:30 Dose: 3 ml Clotrimazole (Lotrimin 1% Cream) 1 applic TOP BID [facility] Last Admin: 07/21/17 16:14 Dose: 1 applic Aztreonam 2 gm/ Sodium (Chloride) 100 mls @ 100 mls/hr IVPB Q8 BELLE PRN Reason: Protocol Last Admin: 07/22/17 00:04 Dose: 100 mls/hr Potassium Chloride (Potassium Chloride 20 Meq/100 Ml) 100 mls @ 50 mls/hr IVPB Q2 [facility] Stop: 07/22/17 11:59 Lorazepam (Ativan) 0.5 mg IVP Q6 PRN PRN Reason: Agitation Last Admin: 07/22/17 05:55 Dose: 0.5 mg Morphine Sulfate (Morphine) 2 mg IVP Q6 PRN PRN Reason: Pain, moderate (4-7) Last Admin: 07/20/17 14:18 Dose: 2 mg Nitroglycerin (Nitro-Dur 0.2 Mg/Hr Patch) 1 patch TD DAILY [facility] Last Admin: 07/21/17 09:25 Dose: 1 patch Pantoprazole Sodium (Protonix Inj) 40 mg IVP DAILY BELLE - Labs Labs: 07/22/17 04:30 07/22/17 04:30 PT 13.0 Seconds (9.8-13.1) 07/16/17 16:25 INR 1.2 (0.9-1.2) 07/16/17 16:25 APTT 29.7 Seconds (25.6-37.1) 07/21/17 04:50 - Constitutional Appears: No Acute Distress - Head Exam Head Exam: ATRAUMATIC, NORMAL INSPECTION, NORMOCEPHALIC - Respiratory Exam Respiratory Exam: NORMAL BREATHING PATTERN Additional comments: on vent - Cardiovascular Exam Cardiovascular Exam: Tachycardia - GI/Abdominal Exam GI & Abdominal Exam: Soft, Tenderness (appropriate). absent: Distended, Guarding - Neurological Exam Neurological Exam: absent: Alert, Awake - Skin Skin Exam: Dry, Intact Assessment and Plan - Assessment and Plan (Free Text) Assessment: 82 F s/p lap cholecystectomy, POD 1 -Insert baeza, monitor I/O, checo output -Cont. supportive care as per ICU -Wean to extubate as able -F/u AM Labs -Continue IV Abx Dw Dr Zarate <Josh Zarate - Last Filed: 07/22/17 09:05> Subjective - Date & Time of Evaluation Time of Evaluation: 08:35 - Subjective Subjective: Patient was seen and examined at the bedside. Agree with resident's note above. Objective - Vital Signs/Intake and Output Vital Signs (last 24 hours): Temp Pulse Resp BP Pulse Ox 100.4 F H 109 H 12 104/64 100 07/22/17 08:00 07/22/17 08:33 07/22/17 08:00 07/22/17 08:33 07/22/17 08:00 Intake and Output: 07/22/17 07/22/17 06:59 18:59 Intake Total 1300 200 Output Total 185 Balance 1115 200 - Medications Medications: Current Medications Acetaminophen (Tylenol 325 Mg Supp) 975 mg WY ONCE PRN PRN Reason: Fever >100.4 F Last Admin: 07/16/17 16:40 Dose: 975 mg Acetaminophen (Tylenol 650 Mg Supp) 650 mg WY Q6 PRN PRN Reason: Fever >100.4 F Last Admin: 07/22/17 01:24 Dose: 650 mg Acetaminophen (Tylenol 650 Mg Supp) 650 mg WY Q6 PRN PRN Reason: Fever >100.4 F Albuterol/Ipratropium (Duoneb 3 Mg/0.5 Mg (3 Ml) Ud) 3 ml INH RQ6 PRN PRN Reason: Shortness of Breath Albuterol/Ipratropium (Duoneb 3 Mg/0.5 Mg (3 Ml) Ud) 3 ml INH RTID [facility] Last Admin: 07/22/17 07:30 Dose: 3 ml Clotrimazole (Lotrimin 1% Cream) 1 applic TOP BID [facility] Last Admin: 07/21/17 16:14 Dose: 1 applic Aztreonam 2 gm/ Sodium (Chloride) 100 mls @ 100 mls/hr IVPB Q8 BELLE PRN Reason: Protocol Last Admin: 07/22/17 08:32 Dose: 100 mls/hr Potassium Chloride (Potassium Chloride 20 Meq/100 Ml) 100 mls @ 50 mls/hr IVPB Q2 [facility] Stop: 07/22/17 11:59 Last Admin: 07/22/17 08:31 Dose: 50 mls/hr Lorazepam (Ativan) 0.5 mg IVP Q6 PRN PRN Reason: Agitation Last Admin: 07/22/17 05:55 Dose: 0.5 mg Morphine Sulfate (Morphine) 2 mg IVP Q6 PRN PRN Reason: Pain, moderate (4-7) Last Admin: 07/20/17 14:18 Dose: 2 mg Nitroglycerin (Nitro-Dur 0.2 Mg/Hr Patch) 1 patch TD DAILY [facility] Last Admin: 07/22/17 08:33 Dose: 1 patch Pantoprazole Sodium (Protonix Inj) 40 mg IVP DAILY [facility] Last Admin: 07/22/17 08:34 Dose: 40 mg - Labs Labs: 07/22/17 04:30 07/22/17 04:30 PT 13.0 Seconds (9.8-13.1) 07/16/17 16:25 INR 1.2 (0.9-1.2) 07/16/17 16:25 APTT 29.7 Seconds (25.6-37.1) 07/21/17 04:50
[2017-07-22] MEDS: Nitroglycerin 0.2 mg/hr Top Patch TD SCH (08:33)
--- NOTE | 2017-07-22 10:01 | RAD ---
HISTORY: intubated COMPARISON: Comparison made with chest radiograph dated 07/16/2017. FINDINGS: In situ ETT, tip of which lies approximately 4.1 cm above andressa. LUNGS: Mild bibasilar atelectasis right greater than left. Suspect small right-sided effusion. PLEURA: As above. No pneumothorax apparent. CARDIOVASCULAR: Heart size difficult to assess due to patient rotation though essentially unchanged from prior study OSSEOUS STRUCTURES: Bilateral rounded radiopaque densities overlying the lower upper lumbar spine likely represent kyphoplasty cement. VISUALIZED UPPER ABDOMEN: Normal. OTHER FINDINGS: None. IMPRESSION: In situ ETT as above. Bibasilar atelectasis right greater than left. Suspect small right-sided effusion.
--- NOTE | 2017-07-22 12:04 | CP.PCM.PN ---
Subjective - Date & Time of Evaluation Date of Evaluation: 07/22/17 Time of Evaluation: 09:30 - Subjective Subjective: intubated , lethargic , s/p Lap Akanksha , PO D # 1 T 100.1 Objective - Vital Signs/Intake and Output Vital Signs (last 24 hours): Temp Pulse Resp BP Pulse Ox 100.4 F H 109 H 12 104/64 100 07/22/17 08:00 07/22/17 08:33 07/22/17 08:00 07/22/17 08:33 07/22/17 08:00 Intake and Output: 07/22/17 07/22/17 06:59 18:59 Intake Total 1300 200 Output Total 185 Balance 1115 200 - Medications Medications: Current Medications Acetaminophen (Tylenol 325 Mg Supp) 975 mg [place] ONCE PRN PRN Reason: Fever >100.4 F Last Admin: 07/16/17 16:40 Dose: 975 mg Acetaminophen (Tylenol 650 Mg Supp) 650 mg [place] Q6 PRN PRN Reason: Fever >100.4 F Last Admin: 07/22/17 08:00 Dose: 650 mg Acetaminophen (Tylenol 650 Mg Supp) 650 mg [place] Q6 PRN PRN Reason: Fever >100.4 F Albuterol/Ipratropium (Duoneb 3 Mg/0.5 Mg (3 Ml) Ud) 3 ml INH RQ6 PRN PRN Reason: Shortness of Breath Albuterol/Ipratropium (Duoneb 3 Mg/0.5 Mg (3 Ml) Ud) 3 ml INH RTID BELLE Last Admin: 07/22/17 07:30 Dose: 3 ml Clotrimazole (Lotrimin 1% Cream) 1 applic TOP BID [facility] Last Admin: 07/22/17 09:54 Dose: 1 applic Potassium Chloride (Potassium Chloride 20 Meq/100 Ml) 100 mls @ 50 mls/hr IVPB Q2 [facility]LE Stop: 07/22/17 11:59 Last Admin: 07/22/17 10:39 Dose: 50 mls/hr Aztreonam 2 gm/ Dextrose 100 mls @ 100 mls/hr IVPB Q8 BELLE PRN Reason: Protocol Lorazepam (Ativan) 0.5 mg IVP Q6 PRN PRN Reason: Agitation Last Admin: 07/22/17 05:55 Dose: 0.5 mg Morphine Sulfate (Morphine) 2 mg IVP Q6 PRN PRN Reason: Pain, moderate (4-7) Last Admin: 07/20/17 14:18 Dose: 2 mg Nitroglycerin (Nitro-Dur 0.2 Mg/Hr Patch) 1 patch TD DAILY [facility] Last Admin: 07/22/17 08:33 Dose: 1 patch Pantoprazole Sodium (Protonix Inj) 40 mg IVP DAILY [facility] Last Admin: 07/22/17 08:34 Dose: 40 mg - Labs Labs: 07/22/17 04:30 07/22/17 04:30 PT 13.0 Seconds (9.8-13.1) 07/16/17 16:25 INR 1.2 (0.9-1.2) 07/16/17 16:25 APTT 29.7 Seconds (25.6-37.1) 07/21/17 04:50 - Constitutional Appears: Chronically Ill - Head Exam Head Exam: NORMAL INSPECTION - Eye Exam Eye Exam: PERRL - ENT Exam Additional comments: intubated - Neck Exam Neck Exam: Normal Inspection - Respiratory Exam Respiratory Exam: Decreased Breath Sounds (at bases) - Cardiovascular Exam Cardiovascular Exam: REGULAR RHYTHM, Murmur (2/6 LSB) - GI/Abdominal Exam GI & Abdominal Exam: Soft, Tenderness (minimal post-op), Normal Bowel Sounds. absent: Guarding, Rebound Additional comments: KEVIN drainage, scars Lap Akanksha - Extremities Exam Extremities Exam: Normal Inspection - Back Exam Back Exam: NORMAL INSPECTION - Neurological Exam Additional comments: lethargic, some spontaneous movements U/E L/E - Psychiatric Exam Additional comments: coonfused - Skin Skin Exam: Warm Assessment and Plan (1) S/P laparoscopic cholecystectomy Assessment & Plan: POD # 1 Status: Acute (2) Sepsis Status: Acute (3) Respiratory failure, post-operative Status: Acute (4) Dementia Status: Chronic (5) HTN (hypertension) Status: Acute (6) Chronic back pain Status: Chronic (7) Seizure Status: Chronic (8) Generalized weakness Status: Chronic (9) COPD (chronic obstructive pulmonary disease) - Assessment and Plan (Free Text) Plan: s/p Lap Akanksha , intubated , attempt of weaning , low grade temp post op , continue Aztreonam , Vanco , Flagyl , DuoNeb and rest of treatment
--- NOTE | 2017-07-22 12:27 | CP.CCUPN ---
CCU Subjective - Physician Review Subjective (Free Text): Still sedated after last dose of Ativan 1 mg given at approx. 6AM today. Briefly opens eyes to name calling only, underwent brief SBT and on CPAP 5, PS 10, and 40% oxygen, RR increased to 35 before the end of one minute. Other Vitals and I/Os reviewed. ROS: No other pertinent negs or positives on 10+ system review, intubated. PMH: All other historical Nursing and physician documentation reviewed to date; no new pertinent info noted relevant to current medical problems. EXAM- HEENT: no icterus, no gaze preference, pupils equal and reactive, no icterus NECK: No JVD, supple, carotids equal upstroke bilat/no bruits CHEST: decreased BS bases, otherwise clear bilat, no wheezes audible HEART: regular distant, S1S2, no rubs. ABD: soft, +distention, with tympany, no palp tenderness, BS hypoactive, dressing / drain intact. EXT: +bilat edema. No peripheral/ digital cyanosis, no calf tenderness or palpable cords, distal pulses intact and symmetrical. NEURO: no gross focal motor deficits SKIN: no rashes, warm and dry. LABS: WBC= 7.9 HGB= 13.4 PLTs= 147K Na= 141 K= 3.2 CL= 105 HCO3= 21 BUN/Cr= 4/0.3 BS= 172 CXR: ( my interp): ETT position OK above andressa, no new consolidation, bibasilar interstitial changes. MAJOR PROBLEMS: 1. S/p Lap Akanksha for Cholecystitis 2. Acute Resp Insuff Post-operatively, r/o non-emergence from anesthesia versus other new pulm pathology 3. Intra-op Accelerated HTN 4. Kleb bacteremia 5. Hypokalemia PLAN: 1. Vent settings adjusted to limit further rises in pH and hyperventilation. 2. Stop all sedatives and any possible narcotic analgesics for now. 3. No further issues with BPs since intra-op period. 4. More K, supplement magnesium, too. May be more amenable to extubation once K levels have normalized. No other pulm issue identified limiting tolerance to extubation. 5. Cipro for Kleb coverage, other antibiotics per surgical team. 6. SCDs and PPi CCU Objective - Vital Signs / Intake & Output Vital Signs (Last 4 hours): Vital Signs Pulse BP 03/23/18 08:33 109 H 104/64 Intake and Output (Last 8hrs): Intake & Output 07/21/17 07/22/17 07/22/17 22:59 06:59 14:59 Intake Total 1350 800 200 Output Total 81 105 Balance 1269 695 200 Intake: IV 1150 600 200 Intake, Piggyback 200 200 Output: Drainage 80 105 Right Lateral Abdomen 80 105 Urine 1 Urine, Voided 1 Other: # Voids Urine, Voided 1 Critical Care Progress Note - Ventilator Checklist Head of Bed 30 Degrees: Yes Daily Sedation Vacation: Yes Daily Assessment of Readiness to Wean: Yes Daily Spontaneous Breathing Trial: Yes PUD Prophalyxis: Yes DVT Prophylaxis: Yes - Vent Settings MODE:: ASSIST CONTROL TIDAL VOLUME:: 450 RESP RATE:: 12 FIO2:: 40 PEEP:: 5 - Extremities/Vascular Does the Patient have a Central Venous Catheter?: No Does the Patient need a Central Venous Catheter?: No Does the Patient have a De La Cruz Catheter?: Yes Does the Patient need a De [place] Cruz Catheter?: Yes Catheter Insertion Criteria: Need for accurate measurement of output in critically ill patient - Restraints Justification for Restraints: High risk for self extubation, High risk for removing IV access, High risk for harming self - Prophylaxis GI Prophylaxis GI: PPI - Prophylaxis DVT Prophylaxis DVT: SCDs - Nutrition Nutrition: Nutrition Category Date Time Status NPO Diet [DIET] Diets 07/16/17 Dinner Active
--- NOTE | 2017-07-22 12:34 | CP.PCM.PN ---
Subjective - Date & Time of Evaluation Date of Evaluation: 07/22/17 Time of Evaluation: 08:00 - Subjective Subjective: fever and lethargy post op intubated s/p cholecystectomy KEVIN drain in place IV antibiotics ordered Objective - Vital Signs/Intake and Output Vital Signs (last 24 hours): Temp Pulse Resp BP Pulse Ox 100.1 F H 113 H 14 116/71 100 07/22/17 12:00 07/22/17 12:00 07/22/17 12:00 07/22/17 12:00 07/22/17 12:00 Intake and Output: 07/22/17 07/22/17 06:59 18:59 Intake Total 1300 200 Output Total 185 Balance 1115 200 - Medications Medications: Current Medications Acetaminophen (Tylenol 325 Mg Supp) 975 mg MI ONCE PRN PRN Reason: Fever >100.4 F Last Admin: 07/16/17 16:40 Dose: 975 mg Acetaminophen (Tylenol 650 Mg Supp) 650 mg MI Q6 PRN PRN Reason: Fever >100.4 F Last Admin: 07/22/17 08:00 Dose: 650 mg Acetaminophen (Tylenol 650 Mg Supp) 650 mg MI Q6 PRN PRN Reason: Fever >100.4 F Albuterol/Ipratropium (Duoneb 3 Mg/0.5 Mg (3 Ml) Ud) 3 ml INH RQ6 PRN PRN Reason: Shortness of Breath Albuterol/Ipratropium (Duoneb 3 Mg/0.5 Mg (3 Ml) Ud) 3 ml INH RTID [facility] Last Admin: 07/22/17 07:30 Dose: 3 ml Clotrimazole (Lotrimin 1% Cream) 1 applic TOP BID [facility] Last Admin: 07/22/17 09:54 Dose: 1 applic Potassium Chloride (Potassium Chloride 20 Meq/100 Ml) 100 mls @ 50 mls/hr IVPB Q2 [facility] Stop: 07/22/17 11:59 Last Admin: 07/22/17 10:39 Dose: 50 mls/hr Aztreonam 2 gm/ Dextrose 100 mls @ 100 mls/hr IVPB Q8 BELLE PRN Reason: Protocol Lorazepam (Ativan) 0.5 mg IVP Q6 PRN PRN Reason: Agitation Last Admin: 07/22/17 05:55 Dose: 0.5 mg Morphine Sulfate (Morphine) 2 mg IVP Q6 PRN PRN Reason: Pain, moderate (4-7) Last Admin: 07/20/17 14:18 Dose: 2 mg Nitroglycerin (Nitro-Dur 0.2 Mg/Hr Patch) 1 patch TD DAILY [facility] Last Admin: 07/22/17 08:33 Dose: 1 patch Pantoprazole Sodium (Protonix Inj) 40 mg IVP DAILY [facility] Last Admin: 07/22/17 08:34 Dose: 40 mg - Labs Labs: 07/22/17 04:30 07/22/17 04:30 PT 13.0 Seconds (9.8-13.1) 07/16/17 16:25 INR 1.2 (0.9-1.2) 07/16/17 16:25 APTT 29.7 Seconds (25.6-37.1) 07/21/17 04:50 - Constitutional Appears: Confused, Cachectic, Chronically Ill - Head Exam Head Exam: ATRAUMATIC, NORMOCEPHALIC Additional comments: intubated - Eye Exam Eye Exam: PERRL. absent: Scleral icterus - ENT Exam ENT Exam: Mucous Membranes Dry - Neck Exam Neck Exam: absent: Lymphadenopathy - Respiratory Exam Respiratory Exam: Decreased Breath Sounds - Cardiovascular Exam Cardiovascular Exam: REGULAR RHYTHM - GI/Abdominal Exam GI & Abdominal Exam: Distended, Soft. absent: Tenderness - Rectal Exam Rectal Exam: Deferred - Exam Exam: NORMAL INSPECTION - Extremities Exam Extremities Exam: Pedal Edema. absent: Calf Tenderness, Tenderness - Back Exam Back Exam: absent: CVA tenderness (L), CVA tenderness (R) - Neurological Exam Neurological Exam: Altered - Psychiatric Exam Psychiatric exam: Depressed - Skin Skin Exam: Dry Assessment and Plan (1) Cholecystitis Status: Acute (2) Sepsis Status: Acute (3) Abdominal pain Status: Acute (4) Dementia Status: Acute (5) Depression Status: Acute - Assessment and Plan (Free Text) Assessment: fever s/p cholecystectomy bacteremia preop - will repeat cultures Cont iv antibiotics
[2017-07-22] MEDS ORDERED: Sodium Chloride 3% for Inhalation 4 ML VIAL.NEB IH PRN (12:35)
[2017-07-22] MEDS ORDERED: metroNIDAZOLE 500mg/100ml NS 100 ML IVPB SCH (12:45)
[2017-07-22 15:04] LABS: SQUAMOUS EPITHIAL 1 /hpf (0-5); URINE BACTERIA RARE (<OCC); URINE BILIRUBIN NEGATIVE (NEGATIVE); URINE BLOOD NEGATIVE (NEGATIVE); URINE CLARITY SLIGHTY-CLOUDY (Clear); URINE COLOR YELLOW (YELLOW); URINE GLUCOSE (UA) NEG (Normal); URINE LEUKOCYTE ESTERASE TRACE Leu/uL (Negative); URINE PROTEIN 30 mg/dL (NEGATIVE); URINE UROBILINOGEN 0.2-1.0 mg/dL (0.2-1.0)
[2017-07-22] MEDS ORDERED: Sodium Chloride 0.9% 500 ML IV ONE (17:05)
[2017-07-22] MEDS: Aztreonam 2 GM in Dextrose 5% In Water 100 ML IVPB SCH (17:27)
--- NOTE | 2017-07-22 20:05 | CP.PCM.PN ---
Subjective - Date & Time of Evaluation Date of Evaluation: 07/22/17 Time of Evaluation: 16:15 - Subjective Subjective: intubated Objective - Vital Signs/Intake and Output Vital Signs (last 24 hours): Temp Pulse Resp BP Pulse Ox 100.0 F H 112 H 14 126/72 99 07/22/17 15:56 07/22/17 16:00 07/22/17 16:00 07/22/17 16:00 07/22/17 16:00 Intake and Output: 07/22/17 07/23/17 18:59 06:59 Intake Total 1250 Output Total 250 Balance 1000 - Medications Medications: Current Medications Acetaminophen (Tylenol 325 Mg Supp) 975 mg WA ONCE PRN PRN Reason: Fever >100.4 F Last Admin: 07/16/17 16:40 Dose: 975 mg Acetaminophen (Tylenol 650 Mg Supp) 650 mg WA Q6 PRN PRN Reason: Fever >100.4 F Last Admin: 07/22/17 08:00 Dose: 650 mg Acetaminophen (Tylenol 650 Mg Supp) 650 mg WA Q6 PRN PRN Reason: Fever >100.4 F Albuterol/Ipratropium (Duoneb 3 Mg/0.5 Mg (3 Ml) Ud) 3 ml INH RQ6 PRN PRN Reason: Shortness of Breath Albuterol/Ipratropium (Duoneb 3 Mg/0.5 Mg (3 Ml) Ud) 3 ml INH RTID BELLE Last Admin: 07/22/17 19:42 Dose: 3 ml Clotrimazole (Lotrimin 1% Cream) 1 applic TOP BID [facility] Last Admin: 07/22/17 17:36 Dose: 1 applic Aztreonam 2 gm/ Dextrose 100 mls @ 100 mls/hr IVPB Q8 BELLE PRN Reason: Protocol Last Admin: 07/22/17 17:27 Dose: 100 mls/hr Vancomycin HCl 750 mg/ Sodium (Chloride) 250 mls @ 250 mls/hr IVPB Q12H [facility] PRN Reason: Protocol Last Admin: 07/22/17 17:30 Dose: 250 mls/hr Metronidazole (Flagyl 500mg/100ml Ns) 100 mls @ 100 mls/hr IVPB Q8@0500,1300, 2100 BELLE PRN Reason: Protocol Lorazepam (Ativan) 0.5 mg IVP Q6 PRN PRN Reason: Agitation Last Admin: 07/22/17 05:55 Dose: 0.5 mg Nitroglycerin (Nitro-Dur 0.2 Mg/Hr Patch) 1 patch TD DAILY [facility] Last Admin: 07/22/17 08:33 Dose: 1 patch Pantoprazole Sodium (Protonix Inj) 40 mg IVP DAILY [facility] Last Admin: 07/22/17 08:34 Dose: 40 mg - Labs Labs: 07/22/17 04:30 07/22/17 04:30 PT 13.0 Seconds (9.8-13.1) 07/16/17 16:25 INR 1.2 (0.9-1.2) 07/16/17 16:25 APTT 29.7 Seconds (25.6-37.1) 07/21/17 04:50 - Head Exam Head Exam: NORMOCEPHALIC - Neck Exam Neck Exam: Normal Inspection - Respiratory Exam Respiratory Exam: Rhonchi - Cardiovascular Exam Cardiovascular Exam: REGULAR RHYTHM - GI/Abdominal Exam GI & Abdominal Exam: Soft, Normal Bowel Sounds Assessment and Plan - Assessment and Plan (Free Text) Assessment: 82 yo female with cholecystitis remains intubated post op abx for now pain control
[2017-07-23] MEDS: Aztreonam 2 GM in Dextrose 5% In Water 100 ML IVPB SCH ×3 (00:30→16:42)
[2017-07-23 05:08] LABS: ABG ALLEN TEST YES; ARTERIAL BLOOD GAS HCO3 27.2 mmol/L (21-28); ARTERIAL BLOOD GAS HEMOGLOBIN 13.4 g/dL (11.7-17.4); ARTERIAL BLOOD GAS O2 CAPACITY 18.4 mL/dL (16-24); ARTERIAL BLOOD GAS O2 CONTENT 18.4 ML/dL (15-23); ARTERIAL BLOOD GAS O2 SAT 99.9 % (95-98); ARTERIAL BLOOD GAS PCO2 26 mm/Hg (35-45); ARTERIAL BLOOD GAS PH 7.57 (7.35-7.45); ARTERIAL BLOOD GAS PO2 137 mm/Hg (80-100); ARTERIAL BLOOD GAS TCO2 24.6 mmol/L (22-28)
[2017-07-23] MEDS: metroNIDAZOLE 500mg/100ml NS 100 ML IVPB SCH ×3 (05:48→20:08)
--- NOTE | 2017-07-23 06:21 | CP.PCM.PN ---
Subjective - Date & Time of Evaluation Date of Evaluation: 07/23/17 Time of Evaluation: 06:30 - Subjective Subjective: General Surgery Note for Dr. Zarate Patient seen and examined at bedside. No acute event overnight. Patient is awake but remains intubated and sedated. She has been afebrile. ROS unobtainable. Solange drain in RUQ with 30 cc of serosanguinous drainage overnight. Objective - Vital Signs/Intake and Output Vital Signs (last 24 hours): Temp Pulse Resp BP Pulse Ox 100 F H 111 H 12 108/65 99 07/23/17 04:00 07/23/17 04:00 07/23/17 04:00 07/23/17 04:00 07/23/17 04:00 Intake and Output: 07/22/17 07/23/17 18:59 06:59 Intake Total 1250 1150 Output Total 250 Balance 1000 1150 - Medications Medications: Current Medications Acetaminophen (Tylenol 325 Mg Supp) 975 mg SC ONCE PRN PRN Reason: Fever >100.4 F Last Admin: 07/16/17 16:40 Dose: 975 mg Acetaminophen (Tylenol 650 Mg Supp) 650 mg SC Q6 PRN PRN Reason: Fever >100.4 F Last Admin: 07/22/17 08:00 Dose: 650 mg Acetaminophen (Tylenol 650 Mg Supp) 650 mg SC Q6 PRN PRN Reason: Fever >100.4 F Albuterol/Ipratropium (Duoneb 3 Mg/0.5 Mg (3 Ml) Ud) 3 ml INH RQ6 PRN PRN Reason: Shortness of Breath Albuterol/Ipratropium (Duoneb 3 Mg/0.5 Mg (3 Ml) Ud) 3 ml INH RTID [facility] Last Admin: 07/22/17 19:42 Dose: 3 ml Clotrimazole (Lotrimin 1% Cream) 1 applic TOP BID [facility] Last Admin: 07/22/17 17:36 Dose: 1 applic Aztreonam 2 gm/ Dextrose 100 mls @ 100 mls/hr IVPB Q8 BELLE PRN Reason: Protocol Last Admin: 07/23/17 00:30 Dose: 100 mls/hr Vancomycin HCl 750 mg/ Sodium (Chloride) 250 mls @ 250 mls/hr IVPB Q12H [facility] PRN Reason: Protocol Last Admin: 07/23/17 00:30 Dose: 250 mls/hr Metronidazole (Flagyl 500mg/100ml Ns) 100 mls @ 100 mls/hr IVPB Q8@0500,1300, 2100 BELLE PRN Reason: Protocol Last Admin: 07/23/17 05:48 Dose: 100 mls/hr Lorazepam (Ativan) 0.5 mg IVP Q6 PRN PRN Reason: Agitation Last Admin: 07/23/17 02:39 Dose: 0.5 mg Nitroglycerin (Nitro-Dur 0.2 Mg/Hr Patch) 1 patch TD DAILY [facility] Last Admin: 07/22/17 08:33 Dose: 1 patch Pantoprazole Sodium (Protonix Inj) 40 mg IVP DAILY [facility] Last Admin: 07/22/17 08:34 Dose: 40 mg - Labs Labs: 07/22/17 04:30 07/22/17 04:30 PT 13.0 Seconds (9.8-13.1) 07/16/17 16:25 INR 1.2 (0.9-1.2) 07/16/17 16:25 APTT 29.7 Seconds (25.6-37.1) 07/21/17 04:50 - Constitutional Appears: No Acute Distress, Other (intubated an sedated) - Head Exam Head Exam: ATRAUMATIC, NORMOCEPHALIC - Eye Exam Eye Exam: Normal appearance - ENT Exam Additional comments: et tube in place - Respiratory Exam Additional comments: intubated and on vent support 450, 5, 12, 40% - Cardiovascular Exam Cardiovascular Exam: Tachycardia - GI/Abdominal Exam GI & Abdominal Exam: Soft, Tenderness (incisional). absent: Distended, Firm, Guarding, Rigid Additional comments: solange drain in place - 30cc of serosanguinous output overnight - Neurological Exam Neurological Exam: Altered - Psychiatric Exam Psychiatric exam: Flat Affect - Skin Skin Exam: Dry, Intact, Warm Assessment and Plan - Assessment and Plan (Free Text) Plan: 82 F s/p laparoscopic cholecystectomy, POD#2 -NPO -I's & O's -IV abx -Weaning trials, eventually extubation -Medical management as per ICU -Will discuss with Dr Elliot Moses PGY1
[2017-07-23 06:28] LABS: BASO % 0.5 % (0.0-2.0); EOS # 0.1 K/uL (0.0-0.7); EOS % 0.9 % (0.0-4.0); LYMPH # 1.2 K/uL (1.0-4.3); LYMPH % 13.3 % (20.0-40.0); MEAN CELL VOLUME 85.8 fl (81.0-99.0); MEAN CORPUSCULAR HEMOGLOBIN 27.9 pg (27.0-31.0); MEAN CORPUSCULAR HGB CONC 32.5 g/dL (33.0-37.0); MEAN PLATELET VOLUME 9.9 fl (7.2-11.7); MONO % 11.9 % (0.0-10.0); NEUT # 6.4 K/uL (1.8-7.0); NEUT % 73.4 % (50.0-75.0); NRBC % 0.1 % (0.0-0.0); RBC 4.65 Mil/uL (3.80-5.20); RED CELL DISTRIBUTION WIDTH 16.2 % (11.5-14.5); WHITE BLOOD COUNT 8.8 K/uL (4.8-10.8)
[2017-07-23 06:39] LABS: ALB/GLOB RATIO 0.9 (1.0-2.1); ALBUMIN 2.9 g/dL (3.5-5.0); ALT/SGPT 85 U/L (9-52); AST/SGOT 34 U/L (14-36); BLOOD UREA NITROGEN 6 mg/dl (7-17); CALCIUM 8.8 mg/dL (8.4-10.2); GFR AFRICAN-AMERICAN > 60; GFR NON-AFRICAN AMERICAN > 60
[2017-07-23] MEDS: Albuterol-Ipratrop 3 mg / 0.5 (3 ml) UD INH SCH ×3 (07:54→19:20)
[2017-07-23] MEDS: Nitroglycerin 0.2 mg/hr Top Patch TD SCH (09:12)
--- NOTE | 2017-07-23 09:45 | CP.CCUPN ---
CCU Objective - Vital Signs / Intake & Output Vital Signs (Last 4 hours): Vital Signs Temp Pulse Resp BP Pulse Ox 07/23/17 09:12 123 H 106/82 07/23/17 08:00 99.8 F H 124 H 12 111/72 96 07/23/17 06:00 125 H 14 111/70 100 Intake and Output (Last 8hrs): Intake & Output 07/22/17 07/23/17 07/23/17 22:59 06:59 14:59 Intake Total 550 850 Output Total 50 330 Balance 500 520 Intake: IV 400 400 Intake, Piggyback 150 450 Output: Drainage 30 Right Lateral Abdomen 30 Urine 50 300 Urethral ([place]) 50 300 - Physical Exam Head: Positive for: Atraumatic, Normocephalic. Negative for: Tenderness, Contusion Pupils: Positive for: PERRL. Negative for: Sluggish Extroacular Muscles: Positive for: EOMI Conjunctiva: Positive for: Normal Ears: Positive for: Normal Mouth: Positive for: Moist Mucous Membranes Nose (Internal): Positive for: Normal Inspection Respiratory/Chest: Positive for: Clear to Auscultation, Good Air Exchange. Negative for: Respiratory Distress, Accessory Muscle Use Cardiovascular: Positive for: Regular Rate and Rhythm, Normal S1, S2, Peripheal Pulses Present. Negative for: Murmurs Abdomen: Positive for: Normal Bowel Sounds. Negative for: Tenderness, Distention, Peritoneal Signs, Rebound - Medications Active Medications: Active Medications Generic Name Dose Route Start Last Admin Trade Name Freq PRN Reason Stop Dose Admin Acetaminophen 975 mg 07/16/17 16:15 07/16/17 16:40 Tylenol 325 Mg Supp NE 975 mg ONCE PRN Administration Fever >100.4 F Acetaminophen 650 mg 07/16/17 21:18 07/22/17 08:00 Tylenol 650 Mg Supp NE 650 mg Q6 PRN Administration Fever >100.4 F Acetaminophen 650 mg 07/21/17 23:38 Tylenol 650 Mg Supp NE Q6 PRN Fever >100.4 F Albuterol/Ipratropium 3 ml 07/16/17 22:04 Duoneb 3 Mg/0.5 Mg (3 Ml) Ud INH RQ6 PRN Shortness of Breath Albuterol/Ipratropium 3 ml 07/18/17 14:00 07/23/17 07:54 Duoneb 3 Mg/0.5 Mg (3 Ml) Ud INH 3 ml RTID BELLE Administration Clotrimazole 1 applic 07/19/17 17:00 07/23/17 09:12 Lotrimin 1% Cream TOP 1 applic BID [facility] Administration Aztreonam 2 gm/ Dextrose 100 mls @ 100 mls/hr 07/22/17 17:00 07/23/17 09:12 IVPB 100 mls/hr Q8 BELLE Administration Protocol Vancomycin HCl 750 mg/ Sodium 250 mls @ 250 mls/hr 07/22/17 12:45 07/23/17 00 :30 Chloride IVPB 250 mls/hr Q12H [facility] Administration Protocol Metronidazole 100 mls @ 100 mls/hr 07/22/17 21:00 07/23/17 05:48 Flagyl 500mg/100ml Ns IVPB 100 mls/hr Q8@0500,1300,2100 [facility] Administration Protocol Lactated Ringer's 1,000 mls @ 80 mls/hr 07/23/17 09:45 Lactated Ringer's IV 07/25/17 09:46 .[id number] [facility] Lorazepam 0.5 mg 07/20/17 14:44 07/23/17 02:39 Ativan IVP 0.5 mg Q6 PRN Administration Agitation Nitroglycerin 1 patch 07/17/17 09:00 07/23/17 09:12 Nitro-Dur 0.2 Mg/Hr Patch TD 1 patch DAILY [facility] Administration Pantoprazole Sodium 40 mg 07/22/17 09:00 07/23/17 09:13 Protonix Inj IVP 40 mg DAILY [facility] Administration - Patient Studies Lab Studies: Microbiology Studies 07/22/17 17:25 Gram Stain - Final Sputum Induced Lab Studies 07/23/17 07/23/17 07/23/17 Range/Units 05:30 05:30 05:30 WBC 8.8 (4.8-10.8) K/uL RBC 4.65 (3.80-5.20) Mil/uL Hgb 13.0 (12.0-16.0) g/dL Hct 39.9 (34.0-47.0) % MCV 85.8 (81.0-99.0) fl MCH 27.9 (27.0-31.0) pg MCHC 32.5 L (33.0-37.0) g/dL RDW 16.2 H (11.5-14.5) % Plt Count 161 (130-400) K/uL MPV 9.9 (7.2-11.7) fl Neut % (Auto) 73.4 (50.0-75.0) % Lymph % (Auto) 13.3 L (20.0-40.0) % [place] % (Auto) 11.9 H (0.0-10.0) % Eos % (Auto) 0.9 (0.0-4.0) % Baso % (Auto) 0.5 (0.0-2.0) % Neut # (Auto) 6.4 (1.8-7.0) K/uL Lymph # (Auto) 1.2 (1.0-4.3) K/uL [place] # (Auto) 1.0 H (0.0-0.8) K/uL Eos # (Auto) 0.1 (0.0-0.7) K/uL Baso # (Auto) 0.0 (0.0-0.2) K/uL pCO2 (35-45) mm/Hg pO2 (80-100) mm/Hg HCO3 (21-28) mmol/L ABG pH (7.35-7.45) ABG Total CO2 (22-28) mmol/L ABG O2 Saturation (95-98) % ABG O2 Content (15-23) ML/dL ABG Base Excess (-2.0-3.0) mmol/L ABG Hemoglobin (11.7-17.4) g/dL ABG Carboxyhemoglobin (0.5-1.5) % POC ABG HHb (Measured) (0.0-5.0) % ABG Methemoglobin (0.0-3.0) % ABG O2 Capacity (16-24) mL/dL Oswaldo Test A-a O2 Difference mm/Hg Hgb O2 Saturation (95.0-98.0) % Vent Mode Mechanical Rate FiO2 % Tidal Volume PEEP Sodium 140 (132-148) mmol/l Potassium 3.2 L (3.6-5.0) MMOL/L Chloride 105 (98-107) mmol/L Carbon Dioxide 24 (22-30) mmol/L Anion Gap 14 (10-20) BUN 6 L (7-17) mg/dl Creatinine 0.3 L (0.7-1.2) mg/dl Est GFR ( Amer) > 60 Est GFR (Non-Af Amer) > 60 Random Glucose 125 H (65-105) mg/dL Lactic Acid 1.7 (0.7-2.1) MMOL/L Calcium 8.8 (8.4-10.2) mg/dL Total Bilirubin 1.1 (0.2-1.3) mg/dl AST 34 (14-36) U/L ALT 85 H D (9-52) U/L Alkaline Phosphatase 135 H (38-126) U/L Total Protein 6.2 L (6.3-8.2) G/DL Albumin 2.9 L (3.5-5.0) g/dL Globulin 3.3 (2.2-3.9) gm/dL Albumin/Globulin Ratio 0.9 L (1.0-2.1) Urine Color (YELLOW) Urine Clarity (Clear) Urine pH (5.0-8.0) Ur Specific [place] (1.003-1.030) Urine Protein (NEGATIVE) mg/dL Urine Glucose (UA) (Normal) mg/dL Urine Ketones (NEGATIVE) mg/dL Urine Blood (NEGATIVE) Urine Nitrate (NEGATIVE) Urine Bilirubin (NEGATIVE) Urine Urobilinogen (0.2-1.0) mg/dL Ur Leukocyte Esterase (Negative) Suhas/uL Urine RBC (Auto) (0-3) /hpf Urine Microscopic WBC (0-5) /hpf Ur Squamous Epith Cells (0-5) /hpf Urine Bacteria (<OCC) 07/23/17 07/22/17 07/22/17 Range/Units 04:48 14:48 13:37 WBC (4.8-10.8) K/uL RBC (3.80-5.20) Mil/uL Hgb (12.0-16.0) g/dL Hct (34.0-47.0) % MCV (81.0-99.0) fl MCH (27.0-31.0) pg MCHC (33.0-37.0) g/dL RDW (11.5-14.5) % Plt Count (130-400) K/uL MPV (7.2-11.7) fl Neut % (Auto) (50.0-75.0) % Lymph % (Auto) (20.0-40.0) % [place] % (Auto) (0.0-10.0) % Eos % (Auto) (0.0-4.0) % Baso % (Auto) (0.0-2.0) % Neut # (Auto) (1.8-7.0) K/uL Lymph # (Auto) (1.0-4.3) K/uL [place] # (Auto) (0.0-0.8) K/uL Eos # (Auto) (0.0-0.7) K/uL Baso # (Auto) (0.0-0.2) K/uL pCO2 26 L (35-45) mm/Hg pO2 137 H (80-100) mm/Hg HCO3 27.2 (21-28) mmol/L ABG pH 7.57 H (7.35-7.45) ABG Total CO2 24.6 (22-28) mmol/L ABG O2 Saturation 99.9 H (95-98) % ABG O2 Content 18.4 (15-23) ML/dL ABG Base Excess 2.9 (-2.0-3.0) mmol/L ABG Hemoglobin 13.4 (11.7-17.4) g/dL ABG Carboxyhemoglobin 1.9 H (0.5-1.5) % POC ABG HHb (Measured) 0.1 (0.0-5.0) % ABG Methemoglobin 1.3 (0.0-3.0) % ABG O2 Capacity 18.4 (16-24) mL/dL Oswaldo Test Yes A-a O2 Difference 116.0 mm/Hg Hgb O2 Saturation 96.7 (95.0-98.0) % Vent Mode A/c Mechanical Rate 12 FiO2 40.0 % Tidal Volume 450 PEEP 5 Sodium (132-148) mmol/l Potassium (3.6-5.0) MMOL/L Chloride (98-107) mmol/L Carbon Dioxide (22-30) mmol/L Anion Gap (10-20) BUN (7-17) mg/dl Creatinine (0.7-1.2) mg/dl Est GFR ( Amer) Est GFR (Non-Af Amer) Random Glucose (65-105) mg/dL Lactic Acid 2.4 H (0.7-2.1) MMOL/L Calcium (8.4-10.2) mg/dL Total Bilirubin (0.2-1.3) mg/dl AST (14-36) U/L ALT (9-52) U/L Alkaline Phosphatase (38-126) U/L Total Protein (6.3-8.2) G/DL Albumin (3.5-5.0) g/dL Globulin (2.2-3.9) gm/dL Albumin/Globulin Ratio (1.0-2.1) Urine Color Yellow (YELLOW) Urine Clarity Slighty-cloudy (Clear) Urine pH 5.0 (5.0-8.0) Ur Specific [place] 1.023 (1.003-1.030) Urine Protein 30 (NEGATIVE) mg/dL Urine Glucose (UA) Neg (Normal) mg/dL Urine Ketones Negative (NEGATIVE) mg/dL Urine Blood Negative (NEGATIVE) Urine Nitrate Negative (NEGATIVE) Urine Bilirubin Negative (NEGATIVE) Urine Urobilinogen 0.2-1.0 (0.2-1.0) mg/dL Ur Leukocyte Esterase Trace (Negative) Suhas/uL Urine RBC (Auto) 2 (0-3) /hpf Urine Microscopic WBC 3 (0-5) /hpf Ur Squamous Epith Cells 1 (0-5) /hpf Urine Bacteria Rare (<OCC) Laboratory Results - last 24 hr 07/22/17 07/22/17 07/23/17 13:37 14:48 04:48 WBC RBC Hgb Hct MCV MCH MCHC RDW Plt Count MPV Neut % (Auto) Lymph % (Auto) [place] % (Auto) Eos % (Auto) Baso % (Auto) Neut # (Auto) Lymph # (Auto) [place] # (Auto) Eos # (Auto) Baso # (Auto) pCO2 26 L pO2 137 H HCO3 27.2 ABG pH 7.57 H ABG Total CO2 24.6 ABG O2 Saturation 99.9 H ABG O2 Content 18.4 ABG Base Excess 2.9 ABG Hemoglobin 13.4 ABG Carboxyhemoglobin 1.9 H POC ABG HHb (Measured) 0.1 ABG Methemoglobin 1.3 ABG O2 Capacity 18.4 Oswaldo Test Yes A-a O2 Difference 116.0 Hgb O2 Saturation 96.7 Vent Mode A/c Mechanical Rate 12 FiO2 40.0 Tidal Volume 450 PEEP 5 Sodium Potassium Chloride Carbon Dioxide Anion Gap BUN Creatinine Est GFR ( Amer) Est GFR (Non-Af Amer) Random Glucose Lactic Acid 2.4 H Calcium Total Bilirubin AST ALT Alkaline Phosphatase Total Protein Albumin Globulin Albumin/Globulin Ratio Urine Color Yellow Urine Clarity Slighty-cloudy Urine pH 5.0 Ur Specific [place] 1.023 Urine Protein 30 Urine Glucose (UA) Neg Urine Ketones Negative Urine Blood Negative Urine Nitrate Negative Urine Bilirubin Negative Urine Urobilinogen 0.2-1.0 Ur Leukocyte Esterase Trace Urine RBC (Auto) 2 Urine Microscopic WBC 3 Ur Squamous Epith Cells 1 Urine Bacteria Rare 07/23/17 07/23/17 07/23/17 05:30 05:30 05:30 WBC 8.8 RBC 4.65 Hgb 13.0 Hct 39.9 MCV 85.8 MCH 27.9 MCHC 32.5 L RDW 16.2 H Plt Count 161 MPV 9.9 Neut % (Auto) 73.4 Lymph % (Auto) 13.3 L [place] % (Auto) 11.9 H Eos % (Auto) 0.9 Baso % (Auto) 0.5 Neut # (Auto) 6.4 Lymph # (Auto) 1.2 [place] # (Auto) 1.0 H Eos # (Auto) 0.1 Baso # (Auto) 0.0 pCO2 pO2 HCO3 ABG pH ABG Total CO2 ABG O2 Saturation ABG O2 Content ABG Base Excess ABG Hemoglobin ABG Carboxyhemoglobin POC ABG HHb (Measured) ABG Methemoglobin ABG O2 Capacity Oswaldo Test A-a O2 Difference Hgb O2 Saturation Vent Mode Mechanical Rate FiO2 Tidal Volume PEEP Sodium 140 Potassium 3.2 L Chloride 105 Carbon Dioxide 24 Anion Gap 14 BUN 6 L Creatinine 0.3 L Est GFR ( Amer) > 60 Est GFR (Non-Af Amer) > 60 Random Glucose 125 H Lactic Acid 1.7 Calcium 8.8 Total Bilirubin 1.1 AST 34 ALT 85 H D Alkaline Phosphatase 135 H Total Protein 6.2 L Albumin 2.9 L Globulin 3.3 Albumin/Globulin Ratio 0.9 L Urine Color Urine Clarity Urine pH Ur Specific [place] Urine Protein Urine Glucose (UA) Urine Ketones Urine Blood Urine Nitrate Urine Bilirubin Urine Urobilinogen Ur Leukocyte Esterase Urine RBC (Auto) Urine Microscopic WBC Ur Squamous Epith Cells Urine Bacteria Fingerstick Blood Sugar Results: 144 Critical Care Progress Note - Nutrition Nutrition: Nutrition Category Date Time Status NPO Diet [DIET] Diets 07/16/17 Dinner Active Assessment/Plan - Assessment and Plan (Free Text) Assessment: MAJOR PROBLEMS: 1. S/p Lap Akanksha for Cholecystitis 2. Acute Resp Insuff Post-operatively, has not been able to be weaned off, too weak and still running low grade tem. Weaning was not successful yesterday, Will tray again today 3. Kleb bacteremia : on Azteonam 4. Hypokalemia 5- Sinus tach: due to recent surgery, low grade fever, no hypotension PLAN: 1. CPAP today. if tolerated, will extubate later today: PS 10, PEEP 5 2. Hold sedatives , continue pain meds 3. Started IVF RL at 80 cc/h 4 Will start TF when cleared by surgery 5. SCDs and PPi 6- ID following, on azteronam, flagy and vanco.
--- NOTE | 2017-07-23 09:59 | RAD ---
HISTORY: intubated COMPARISON: No prior. FINDINGS: In situ ETT, tip of which lies approximately 5.9 cm above andressa. LUNGS: Minor bibasilar atelectasis right greater than left and questionable small right effusion PLEURA: As above. No pneumothorax apparent. CARDIOVASCULAR: Normal. OSSEOUS STRUCTURES: No significant abnormalities. VISUALIZED UPPER ABDOMEN: Normal. OTHER FINDINGS: None. IMPRESSION: In situ ETT as above. Mild bibasilar atelectasis and questionable small right effusion
[2017-07-23] MEDS: Lactated Ringer's 1,000 ML IV SCH ×2 (11:08→22:30)
[2017-07-23] MEDS: Potassium Chloride 20 mEq 100 ML IVPB SCH ×2 (12:57→15:00)
--- NOTE | 2017-07-23 14:34 | CP.PCM.PN ---
Subjective - Date & Time of Evaluation Date of Evaluation: 07/23/17 Time of Evaluation: 09:30 - Subjective Subjective: extubated , lethargic , on NR Mask 100% Objective - Vital Signs/Intake and Output Vital Signs (last 24 hours): Temp Pulse Resp BP Pulse Ox 99.8 F H 123 H 12 106/82 96 07/23/17 08:00 07/23/17 09:12 07/23/17 08:00 07/23/17 09:12 07/23/17 08:00 Intake and Output: 07/23/17 07/23/17 06:59 18:59 Intake Total 1250 Output Total 330 Balance 920 - Medications Medications: Current Medications Acetaminophen (Tylenol 325 Mg Supp) 975 mg MS ONCE PRN PRN Reason: Fever >100.4 F Last Admin: 07/16/17 16:40 Dose: 975 mg Acetaminophen (Tylenol 650 Mg Supp) 650 mg MS Q6 PRN PRN Reason: Fever >100.4 F Last Admin: 07/22/17 08:00 Dose: 650 mg Acetaminophen (Tylenol 650 Mg Supp) 650 mg MS Q6 PRN PRN Reason: Fever >100.4 F Albuterol/Ipratropium (Duoneb 3 Mg/0.5 Mg (3 Ml) Ud) 3 ml INH RQ6 PRN PRN Reason: Shortness of Breath Albuterol/Ipratropium (Duoneb 3 Mg/0.5 Mg (3 Ml) Ud) 3 ml INH RTID [facility] Last Admin: 07/23/17 13:07 Dose: 3 ml Clotrimazole (Lotrimin 1% Cream) 1 applic TOP BID [facility] Last Admin: 07/23/17 09:12 Dose: 1 applic Aztreonam 2 gm/ Dextrose 100 mls @ 100 mls/hr IVPB Q8 [facility] PRN Reason: Protocol Last Admin: 07/23/17 09:12 Dose: 100 mls/hr Vancomycin HCl 750 mg/ Sodium (Chloride) 250 mls @ 250 mls/hr IVPB Q12H [facility] PRN Reason: Protocol Last Admin: 07/23/17 00:30 Dose: 250 mls/hr Metronidazole (Flagyl 500mg/100ml Ns) 100 mls @ 100 mls/hr IVPB Q8@0500,1300, 2100 [facility] PRN Reason: Protocol Last Admin: 07/23/17 12:18 Dose: 100 mls/hr Lactated Ringer's (Lactated Ringer's) 1,000 mls @ 80 mls/hr IV .[id number] [facility] Stop: 07/25/17 09:46 Last Admin: 07/23/17 11:08 Dose: 80 mls/hr Potassium Chloride (Potassium Chloride 20 Meq/100 Ml) 100 mls @ 50 mls/hr IVPB Q2 [facility] Stop: 07/23/17 15:59 Last Admin: 07/23/17 12:57 Dose: 50 mls/hr Lorazepam (Ativan) 0.5 mg IVP Q6 PRN PRN Reason: Agitation Last Admin: 07/23/17 02:39 Dose: 0.5 mg Nitroglycerin (Nitro-Dur 0.2 Mg/Hr Patch) 1 patch TD DAILY [facility] Last Admin: 07/23/17 09:12 Dose: 1 patch Pantoprazole Sodium (Protonix Inj) 40 mg IVP DAILY [facility] Last Admin: 07/23/17 09:13 Dose: 40 mg - Labs Labs: 07/23/17 05:30 07/23/17 05:30 PT 13.0 Seconds (9.8-13.1) 07/16/17 16:25 INR 1.2 (0.9-1.2) 07/16/17 16:25 APTT 29.7 Seconds (25.6-37.1) 07/21/17 04:50 - Constitutional Appears: Chronically Ill - Head Exam Head Exam: NORMAL INSPECTION - Eye Exam Eye Exam: PERRL - ENT Exam ENT Exam: Normal Exam Additional comments: NR Mask 100% - Neck Exam Neck Exam: Normal Inspection - Respiratory Exam Respiratory Exam: Decreased Breath Sounds (at bases) - Cardiovascular Exam Cardiovascular Exam: REGULAR RHYTHM - GI/Abdominal Exam GI & Abdominal Exam: Tenderness (minimal post surgical tenderness) Additional comments: surgical scars , KEVIN drainage - Extremities Exam Extremities Exam: Normal Inspection - Back Exam Back Exam: NORMAL INSPECTION - Neurological Exam Additional comments: lethargic, limited spontaneous movements all extremities - Psychiatric Exam Additional comments: lethargic - Skin Skin Exam: Warm Assessment and Plan (1) S/P laparoscopic cholecystectomy Status: Acute (2) Sepsis Status: Acute (3) Dementia Status: Chronic (4) HTN (hypertension) Status: Acute (5) Chronic back pain Status: Chronic (6) Seizure Status: Chronic (7) Generalized weakness Status: Chronic (8) COPD (chronic obstructive pulmonary disease) Status: Chronic - Assessment and Plan (Free Text) Plan: continue Aztreonam , Vanco , DuoNeb and rest of treatment
[2017-07-24] MEDS: Aztreonam 2 GM in Dextrose 5% In Water 100 ML IVPB SCH ×3 (00:01→16:36)
[2017-07-24] MEDS: metroNIDAZOLE 500mg/100ml NS 100 ML IVPB SCH ×3 (04:19→20:46)
[2017-07-24 06:03] LABS: BASO % 0.5 % (0.0-2.0); EOS # 0.2 K/uL (0.0-0.7); EOS % 2.4 % (0.0-4.0); HEMOGLOBIN 12.3 g/dL (12.0-16.0); LYMPH % 14.6 % (20.0-40.0); MEAN CELL VOLUME 85.8 fl (81.0-99.0); MEAN CORPUSCULAR HEMOGLOBIN 28.2 pg (27.0-31.0); MEAN CORPUSCULAR HGB CONC 32.8 g/dL (33.0-37.0); MEAN PLATELET VOLUME 9.8 fl (7.2-11.7); MONO # 0.7 K/uL (0.0-0.8); MONO % 9.6 % (0.0-10.0); NEUT # 5.2 K/uL (1.8-7.0); NEUT % 72.9 % (50.0-75.0); RBC 4.37 Mil/uL (3.80-5.20); RED CELL DISTRIBUTION WIDTH 16.2 % (11.5-14.5); WHITE BLOOD COUNT 7.1 K/uL (4.8-10.8)
[2017-07-24 06:17] LABS: ALB/GLOB RATIO 0.8 (1.0-2.1); ALBUMIN 2.8 g/dL (3.5-5.0); ALT/SGPT 63 U/L (9-52); AST/SGOT 26 U/L (14-36); BLOOD UREA NITROGEN 9 mg/dl (7-17); CALCIUM 8.6 mg/dL (8.4-10.2); GFR AFRICAN-AMERICAN > 60; GFR NON-AFRICAN AMERICAN > 60
[2017-07-24] MEDS: Albuterol-Ipratrop 3 mg / 0.5 (3 ml) UD INH SCH ×3 (07:22→19:54)
--- NOTE | 2017-07-24 07:50 | CP.CCUPN ---
CCU Subjective - Physician Review Events Since Last Encounter (Free Text): 07/24/17 07:42 Was extubated successfully yesterday and has been stable since, saturating 100% on 3 L n/c and also on RZ. CHARLES stable, afebrile, no leukocytosis, labs are good. ST has been better, was 120-130/m not around 100/m. Will transfer to Med-Surg today. CCU Objective - Vital Signs / Intake & Output Vital Signs (Last 4 hours): Vital Signs Temp Pulse Resp BP Pulse Ox 07/24/17 06:00 105 H 16 103/50 L 100 07/24/17 04:00 99 F 93 H 23 112/53 L 100 Intake and Output (Last 8hrs): Intake & Output 07/23/17 07/24/17 07/24/17 22:59 06:59 14:59 Intake Total 680 850 Output Total 240 310 Balance 440 540 Intake: IV 480 400 Intake, Piggyback 200 450 Output: Drainage 40 10 Right Lateral Abdomen 40 10 Urine 200 300 Urethral ([place]) 200 300 Other: # Bowel Movements 1 - Physical Exam Narrative Physical Exam (Free Text): 07/24/17 07:50 P/E Neck: No JVD Lungs: No ronchi, crackles Abdomen: soft, non-tender Ext: No edema Heart: No gallop Head: Positive for: Atraumatic, Normocephalic. Negative for: Tenderness, Contusion Pupils: Positive for: PERRL. Negative for: Sluggish Extroacular Muscles: Positive for: EOMI Conjunctiva: Positive for: Normal Ears: Positive for: Normal Mouth: Positive for: Moist Mucous Membranes Nose (Internal): Positive for: Normal Inspection Respiratory/Chest: Positive for: Clear to Auscultation, Good Air Exchange. Negative for: Respiratory Distress, Accessory Muscle Use Cardiovascular: Positive for: Regular Rate and Rhythm, Normal S1, S2, Peripheal Pulses Present. Negative for: Murmurs Abdomen: Positive for: Normal Bowel Sounds. Negative for: Tenderness, Distention, Peritoneal Signs, Rebound - Medications Active Medications: Active Medications Generic Name Dose Route Start Last Admin Trade Name Freq PRN Reason Stop Dose Admin Acetaminophen 975 mg 07/16/17 16:15 07/16/17 16:40 Tylenol 325 Mg Supp [place] 975 mg ONCE PRN Administration Fever >100.4 F Acetaminophen 650 mg 07/16/17 21:18 07/22/17 08:00 Tylenol 650 Mg Supp [place] 650 mg Q6 PRN Administration Fever >100.4 F Acetaminophen 650 mg 07/21/17 23:38 Tylenol 650 Mg Supp [place] Q6 PRN Fever >100.4 F Albuterol/Ipratropium 3 ml 07/18/17 14:00 07/24/17 07:22 Duoneb 3 Mg/0.5 Mg (3 Ml) Ud INH 3 ml RTID [facility] Administration Clotrimazole 1 applic 07/19/17 17:00 07/23/17 16:40 Lotrimin 1% Cream TOP 1 applic BID [facility] Administration Aztreonam 2 gm/ Dextrose 100 mls @ 100 mls/hr 07/22/17 17:00 07/24/17 00:01 IVPB 100 mls/hr Q8 [facility] Administration Protocol Vancomycin HCl 750 mg/ Sodium 250 mls @ 250 mls/hr 07/22/17 12:45 07/24/17 00 :04 Chloride IVPB 250 mls/hr Q12H [facility] Administration Protocol Metronidazole 100 mls @ 100 mls/hr 07/22/17 21:00 07/24/17 04:19 Flagyl 500mg/100ml Ns IVPB 100 mls/hr Q8@0500,1300,2100 [facility] Administration Protocol Lactated Ringer's 1,000 mls @ 80 mls/hr 07/23/17 09:45 07/23/17 22:30 Lactated Ringer's IV 07/25/17 09:46 Not Given .[id number] [facility] Nitroglycerin 1 patch 07/17/17 09:00 07/23/17 09:12 Nitro-Dur 0.2 Mg/Hr Patch TD 1 patch DAILY [facility] Administration Pantoprazole Sodium 40 mg 07/22/17 09:00 07/23/17 09:13 Protonix Inj IVP 40 mg DAILY [facility] Administration - Patient Studies Lab Studies: Microbiology Studies 07/22/17 14:48 Urine Culture - Final Urine,[place] No Growth (<1,000 CFU/ML) 07/22/17 13:47 Blood Culture - Preliminary Blood-Venous NO GROWTH AFTER 24 HOURS 07/22/17 13:37 Blood Culture - Preliminary Blood-Venous NO GROWTH AFTER 24 HOURS Lab Studies 07/24/17 07/24/17 Range/Units 04:37 04:37 WBC 7.1 (4.8-10.8) K/uL RBC 4.37 (3.80-5.20) Mil/uL Hgb 12.3 (12.0-16.0) g/dL Hct 37.5 (34.0-47.0) % MCV 85.8 (81.0-99.0) fl MCH 28.2 (27.0-31.0) pg MCHC 32.8 L (33.0-37.0) g/dL RDW 16.2 H (11.5-14.5) % Plt Count 164 (130-400) K/uL MPV 9.8 (7.2-11.7) fl Neut % (Auto) 72.9 (50.0-75.0) % Lymph % (Auto) 14.6 L (20.0-40.0) % Kendall % (Auto) 9.6 (0.0-10.0) % Eos % (Auto) 2.4 (0.0-4.0) % Baso % (Auto) 0.5 (0.0-2.0) % Neut # (Auto) 5.2 (1.8-7.0) K/uL Lymph # (Auto) 1.0 (1.0-4.3) K/uL Kendall # (Auto) 0.7 (0.0-0.8) K/uL Eos # (Auto) 0.2 (0.0-0.7) K/uL Baso # (Auto) 0.0 (0.0-0.2) K/uL Sodium 142 (132-148) mmol/l Potassium 3.3 L (3.6-5.0) MMOL/L Chloride 107 (98-107) mmol/L Carbon Dioxide 25 (22-30) mmol/L Anion Gap 13 (10-20) BUN 9 (7-17) mg/dl Creatinine 0.3 L (0.7-1.2) mg/dl Est GFR ( Amer) > 60 Est GFR (Non-Af Amer) > 60 Random Glucose 95 (65-105) mg/dL Calcium 8.6 (8.4-10.2) mg/dL Phosphorus 2.4 L (2.5-4.5) mg/dl Magnesium 2.0 (1.6-2.3) MG/DL Total Bilirubin 1.0 (0.2-1.3) mg/dl AST 26 (14-36) U/L ALT 63 H D (9-52) U/L Alkaline Phosphatase 118 (38-126) U/L Total Protein 6.2 L (6.3-8.2) G/DL Albumin 2.8 L (3.5-5.0) g/dL Globulin 3.4 (2.2-3.9) gm/dL Albumin/Globulin Ratio 0.8 L (1.0-2.1) Laboratory Results - last 24 hr 07/24/17 07/24/17 04:37 04:37 WBC 7.1 RBC 4.37 Hgb 12.3 Hct 37.5 MCV 85.8 MCH 28.2 MCHC 32.8 L RDW 16.2 H Plt Count 164 MPV 9.8 Neut % (Auto) 72.9 Lymph % (Auto) 14.6 L Kendall % (Auto) 9.6 Eos % (Auto) 2.4 Baso % (Auto) 0.5 Neut # (Auto) 5.2 Lymph # (Auto) 1.0 Kendall # (Auto) 0.7 Eos # (Auto) 0.2 Baso # (Auto) 0.0 Sodium 142 Potassium 3.3 L Chloride 107 Carbon Dioxide 25 Anion Gap 13 BUN 9 Creatinine 0.3 L Est GFR ( Amer) > 60 Est GFR (Non-Af Amer) > 60 Random Glucose 95 Calcium 8.6 Phosphorus 2.4 L Magnesium 2.0 Total Bilirubin 1.0 AST 26 ALT 63 H D Alkaline Phosphatase 118 Total Protein 6.2 L Albumin 2.8 L Globulin 3.4 Albumin/Globulin Ratio 0.8 L Fingerstick Blood Sugar Results: 144 Critical Care Progress Note - Nutrition Nutrition: Nutrition Category Date Time Status NPO Diet [DIET] Diets 07/16/17 Dinner Active Assessment/Plan - Assessment and Plan (Free Text) Assessment: Pots Op: s/p chlecystectomy Gram negative bacteremia Resp failure: post OP: improved: extubated , yesterday Hypokalemia: improving, K; being replaced Plan: 1. Transfer to med-surg 2. Start clear liquid if OK with Surgery 3. Continue IVF RL , decrease rate to 60 cc/h 5. SCDs and PPi 6- ID following, on azteronam, flagy and vanco.
--- NOTE | 2017-07-24 08:47 | CP.PCM.PN ---
Subjective - Date & Time of Evaluation Date of Evaluation: 07/24/17 Time of Evaluation: 06:45 - Subjective Subjective: General Surgery Note for Dr. Zarate Patient seen and examined at bedside. No acute event overnight. Patient is awake. Patient was extubated. Denies pain. [place] drain with 50 cc of serosanguinous drainage over 24hrs. Objective - Vital Signs/Intake and Output Vital Signs (last 24 hours): Temp Pulse Resp BP Pulse Ox 99 F 105 H 16 103/50 L 100 07/24/17 04:00 07/24/17 06:00 07/24/17 06:00 07/24/17 06:00 07/24/17 06:00 Intake and Output: 07/24/17 07/24/17 06:59 18:59 Intake Total 1110 Output Total 310 Balance 800 - Medications Medications: Current Medications Acetaminophen (Tylenol 325 Mg Supp) 975 mg MA ONCE PRN PRN Reason: Fever >100.4 F Last Admin: 07/16/17 16:40 Dose: 975 mg Acetaminophen (Tylenol 650 Mg Supp) 650 mg MA Q6 PRN PRN Reason: Fever >100.4 F Last Admin: 07/22/17 08:00 Dose: 650 mg Acetaminophen (Tylenol 650 Mg Supp) 650 mg MA Q6 PRN PRN Reason: Fever >100.4 F Albuterol/Ipratropium (Duoneb 3 Mg/0.5 Mg (3 Ml) Ud) 3 ml INH RTID [facility] Last Admin: 07/24/17 07:22 Dose: 3 ml Clotrimazole (Lotrimin 1% Cream) 1 applic TOP BID [facility] Last Admin: 07/23/17 16:40 Dose: 1 applic Aztreonam 2 gm/ Dextrose 100 mls @ 100 mls/hr IVPB Q8 [facility] PRN Reason: Protocol Last Admin: 07/24/17 00:01 Dose: 100 mls/hr Vancomycin HCl 750 mg/ Sodium (Chloride) 250 mls @ 250 mls/hr IVPB Q12H [facility] PRN Reason: Protocol Last Admin: 07/24/17 00:04 Dose: 250 mls/hr Metronidazole (Flagyl 500mg/100ml Ns) 100 mls @ 100 mls/hr IVPB Q8@0500,1300, 2100 [facility] PRN Reason: Protocol Last Admin: 07/24/17 04:19 Dose: 100 mls/hr Lactated Ringer's (Lactated Ringer's) 1,000 mls @ 80 mls/hr IV .[id number] [facility] Stop: 07/25/17 09:46 Last Admin: 07/23/17 22:30 Dose: Not Given Nitroglycerin (Nitro-Dur 0.2 Mg/Hr Patch) 1 patch TD DAILY [facility] Last Admin: 07/23/17 09:12 Dose: 1 patch Pantoprazole Sodium (Protonix Inj) 40 mg IVP DAILY [facility] Last Admin: 07/23/17 09:13 Dose: 40 mg - Labs Labs: 07/24/17 04:37 07/24/17 04:37 PT 13.0 Seconds (9.8-13.1) 07/16/17 16:25 INR 1.2 (0.9-1.2) 07/16/17 16:25 APTT 29.7 Seconds (25.6-37.1) 07/21/17 04:50 - Constitutional Appears: No Acute Distress - Head Exam Head Exam: ATRAUMATIC, NORMOCEPHALIC - Eye Exam Eye Exam: Normal appearance Pupil Exam: PERRL - ENT Exam ENT Exam: Mucous Membranes Moist - Respiratory Exam Respiratory Exam: NORMAL BREATHING PATTERN. absent: Accessory Muscle Use, Respiratory Distress - Cardiovascular Exam Cardiovascular Exam: Tachycardia - GI/Abdominal Exam GI & Abdominal Exam: Soft. absent: Distended, Firm, Guarding, Rigid, Tenderness , Rebound - Neurological Exam Neurological Exam: Awake - Psychiatric Exam Psychiatric exam: Flat Affect - Skin Skin Exam: Dry, Intact, Warm Assessment and Plan - Assessment and Plan (Free Text) Plan: 82 F s/p laparoscopic cholecystectomy, POD#3 -NPO, need nursing swallow evaluation before starting diet -I's & O's -IV abx -Medical management as per primary -Will discuss with Dr Elilot Moses PGY1
[2017-07-24] MEDS: Nitroglycerin 0.2 mg/hr Top Patch TD SCH (08:52)
--- NOTE | 2017-07-24 13:41 | CP.PCM.PN ---
Subjective - Date & Time of Evaluation Date of Evaluation: 07/24/17 Time of Evaluation: 09:00 - Subjective Subjective: extubated awake alert comfportable on NC Objective - Vital Signs/Intake and Output Vital Signs (last 24 hours): Temp Pulse Resp BP Pulse Ox 98.6 F 107 H 18 120/64 100 07/24/17 12:00 07/24/17 12:00 07/24/17 12:00 07/24/17 12:00 07/24/17 12:00 Intake and Output: 07/24/17 07/24/17 06:59 18:59 Intake Total 1110 580 Output Total 310 Balance 800 580 - Medications Medications: Current Medications Acetaminophen (Tylenol 325 Mg Supp) 975 mg VT ONCE PRN PRN Reason: Fever >100.4 F Last Admin: 07/16/17 16:40 Dose: 975 mg Acetaminophen (Tylenol 650 Mg Supp) 650 mg [place] Q6 PRN PRN Reason: Fever >100.4 F Last Admin: 07/22/17 08:00 Dose: 650 mg Acetaminophen (Tylenol 650 Mg Supp) 650 mg [place] Q6 PRN PRN Reason: Fever >100.4 F Albuterol/Ipratropium (Duoneb 3 Mg/0.5 Mg (3 Ml) Ud) 3 ml INH RTID [facility] Last Admin: 07/24/17 13:15 Dose: Not Given Clotrimazole (Lotrimin 1% Cream) 1 applic TOP BID [facility] Last Admin: 07/24/17 08:51 Dose: 1 applic Aztreonam 2 gm/ Dextrose 100 mls @ 100 mls/hr IVPB Q8 [facility] PRN Reason: Protocol Last Admin: 07/24/17 08:51 Dose: 100 mls/hr Vancomycin HCl 750 mg/ Sodium (Chloride) 250 mls @ 250 mls/hr IVPB Q12H [facility] PRN Reason: Protocol Last Admin: 07/24/17 00:04 Dose: 250 mls/hr Metronidazole (Flagyl 500mg/100ml Ns) 100 mls @ 100 mls/hr IVPB Q8@0500,1300, 2100 [facility] PRN Reason: Protocol Last Admin: 07/24/17 12:40 Dose: 100 mls/hr Lactated Ringer's (Lactated Ringer's) 1,000 mls @ 80 mls/hr IV .[id number] [facility] Stop: 07/25/17 09:46 Last Admin: 07/23/17 22:30 Dose: Not Given Potassium Chloride/Dextrose/Sod Cl (Potassium Chl 20 Meq In D5-1/2ns) 1,000 mls @ 80 mls/hr IV .[id number] [facility] Stop: 07/25/17 12:02 Nitroglycerin (Nitro-Dur 0.2 Mg/Hr Patch) 1 patch TD DAILY [facility] Last Admin: 07/24/17 08:52 Dose: 1 patch Pantoprazole Sodium (Protonix Inj) 40 mg IVP DAILY [facility] Last Admin: 07/24/17 08:52 Dose: 40 mg - Labs Labs: 07/24/17 04:37 07/24/17 04:37 PT 13.0 Seconds (9.8-13.1) 07/16/17 16:25 INR 1.2 (0.9-1.2) 07/16/17 16:25 APTT 29.7 Seconds (25.6-37.1) 07/21/17 04:50 - Constitutional Appears: Non-toxic - Head Exam Head Exam: NORMAL INSPECTION - Eye Exam Eye Exam: PERRL. absent: Scleral icterus - ENT Exam ENT Exam: Mucous Membranes Dry - Neck Exam Neck Exam: absent: Lymphadenopathy - Respiratory Exam Respiratory Exam: Decreased Breath Sounds - Cardiovascular Exam Cardiovascular Exam: REGULAR RHYTHM - GI/Abdominal Exam GI & Abdominal Exam: Distended, Soft - Rectal Exam Rectal Exam: Deferred - Exam Exam: NORMAL INSPECTION - Extremities Exam Extremities Exam: absent: Pedal Edema - Back Exam Back Exam: absent: CVA tenderness (L), CVA tenderness (R) - Neurological Exam Neurological Exam: Alert, Awake, Oriented x3 Neuro motor strength exam: Left Upper Extremity: 3, Right Upper Extremity: 3, Left Lower Extremity: 3, Right Lower Extremity: 3 - Psychiatric Exam Psychiatric exam: Normal Affect - Skin Skin Exam: Dry Assessment and Plan (1) Cholecystitis Status: Acute (2) Sepsis Status: Acute (3) Abdominal pain Status: Acute (4) Dementia Status: Acute (5) Depression Status: Acute - Assessment and Plan (Free Text) Assessment: sepsis / resp failure resolving s/p cholecystectomy all reccultures neg to complete 14 days total IV antibiotics for gram neg bacteremia
[2017-07-24] MEDS: Potassium Ch 20mEq in D5-1/2NS 1,000 ML IV SCH (13:45)
--- NOTE | 2017-07-24 19:50 | CP.PCM.PN ---
Subjective - Date & Time of Evaluation Date of Evaluation: 07/24/17 Time of Evaluation: 11:00 - Subjective Subjective: S/P Cholecystectomy Objective - Vital Signs/Intake and Output Vital Signs (last 24 hours): Temp Pulse Resp BP Pulse Ox 98.2 F 102 H 20 133/78 98 07/24/17 16:53 07/24/17 16:53 07/24/17 16:53 07/24/17 16:53 07/24/17 16:53 Intake and Output: 07/24/17 07/25/17 18:59 06:59 Intake Total 580 1300 Output Total 225 Balance 580 1075 - Medications Medications: Current Medications Acetaminophen (Tylenol 325 Mg Supp) 975 mg MA ONCE PRN PRN Reason: Fever >100.4 F Last Admin: 07/16/17 16:40 Dose: 975 mg Acetaminophen (Tylenol 650 Mg Supp) 650 mg MA Q6 PRN PRN Reason: Fever >100.4 F Last Admin: 07/22/17 08:00 Dose: 650 mg Acetaminophen (Tylenol 650 Mg Supp) 650 mg MA Q6 PRN PRN Reason: Fever >100.4 F Albuterol/Ipratropium (Duoneb 3 Mg/0.5 Mg (3 Ml) Ud) 3 ml INH RTID [facility] Last Admin: 07/24/17 13:15 Dose: Not Given Clotrimazole (Lotrimin 1% Cream) 1 applic TOP BID [facility] Last Admin: 07/24/17 16:24 Dose: 1 u Aztreonam 2 gm/ Dextrose 100 mls @ 100 mls/hr IVPB Q8 [facility] PRN Reason: Protocol Last Admin: 07/24/17 16:36 Dose: 100 mls/hr Vancomycin HCl 750 mg/ Sodium (Chloride) 250 mls @ 250 mls/hr IVPB Q12H [facility] PRN Reason: Protocol Last Admin: 07/24/17 13:45 Dose: 250 mls/hr Metronidazole (Flagyl 500mg/100ml Ns) 100 mls @ 100 mls/hr IVPB Q8@0500,1300, 2100 [facility] PRN Reason: Protocol Last Admin: 07/24/17 12:40 Dose: 100 mls/hr Potassium Chloride/Dextrose/Sod Cl (Potassium Chl 20 Meq In D5-1/2ns) 1,000 mls @ 80 mls/hr IV .[id number] [facility] Stop: 07/25/17 12:02 Last Admin: 07/24/17 13:45 Dose: 80 mls/hr Nitroglycerin (Nitro-Dur 0.2 Mg/Hr Patch) 1 patch TD DAILY [facility] Last Admin: 07/24/17 08:52 Dose: 1 patch Pantoprazole Sodium (Protonix Inj) 40 mg IVP DAILY [facility] Last Admin: 07/24/17 08:52 Dose: 40 mg - Labs Labs: 07/24/17 04:37 07/24/17 04:37 PT 13.0 Seconds (9.8-13.1) 07/16/17 16:25 INR 1.2 (0.9-1.2) 07/16/17 16:25 APTT 29.7 Seconds (25.6-37.1) 07/21/17 04:50 - Constitutional Appears: Chronically Ill - Head Exam Head Exam: NORMAL INSPECTION - Eye Exam Eye Exam: PERRL - Neck Exam Neck Exam: Normal Inspection - Respiratory Exam Respiratory Exam: Decreased Breath Sounds (at bases) Additional comments: On NC - Cardiovascular Exam Cardiovascular Exam: REGULAR RHYTHM - GI/Abdominal Exam GI & Abdominal Exam: Tenderness (minimal post surgical) Additional comments: Surgical scars, KEVIN drainage - Extremities Exam Extremities Exam: Normal Inspection - Back Exam Back Exam: NORMAL INSPECTION - Neurological Exam Additional comments: Lethargic, limited spontaneous movements all extremities. - Skin Skin Exam: Warm Assessment and Plan (1) S/P laparoscopic cholecystectomy Status: Acute (2) Sepsis Status: Acute (3) Dementia Status: Chronic (4) HTN (hypertension) Status: Acute (5) Chronic back pain Status: Chronic (6) Seizure Status: Chronic (7) Generalized weakness Status: Chronic (8) COPD (chronic obstructive pulmonary disease)
[2017-07-25] MEDS: Aztreonam 2 GM in Dextrose 5% In Water 100 ML IVPB SCH ×3 (00:46→17:24)
[2017-07-25] MEDS: Potassium Ch 20mEq in D5-1/2NS 1,000 ML IV SCH (00:48)
[2017-07-25] MEDS: metroNIDAZOLE 500mg/100ml NS 100 ML IVPB SCH ×3 (04:43→21:53)
[2017-07-25] MEDS: Albuterol-Ipratrop 3 mg / 0.5 (3 ml) UD INH SCH ×3 (07:53→19:37)
--- NOTE | 2017-07-25 08:08 | CP.PCM.PN ---
<Shlomo Nguyen D - Last Filed: 07/25/17 08:05> Subjective - Date & Time of Evaluation Date of Evaluation: 07/25/17 Time of Evaluation: 08:05 - Subjective Subjective: SURGERY NOTE FOR DR. ZARATE 82F seen and examined at bedside. Patient denies pain, nausea, vomiting. She is tolerating diet. Now moved out the ICU. Objective - Vital Signs/Intake and Output Vital Signs (last 24 hours): Temp Pulse Resp BP Pulse Ox 98.2 F 97 H 18 127/81 99 07/25/17 07:51 07/25/17 07:51 07/25/17 07:51 07/25/17 07:51 07/25/17 07:51 Intake and Output: 07/25/17 07/25/17 06:59 18:59 Intake Total 1300 1160 Output Total 225 970 Balance 1075 190 - Medications Medications: Current Medications Acetaminophen (Tylenol 325 Mg Supp) 975 mg [place] ONCE PRN PRN Reason: Fever >100.4 F Last Admin: 07/16/17 16:40 Dose: 975 mg Acetaminophen (Tylenol 650 Mg Supp) 650 mg [place] Q6 PRN PRN Reason: Fever >100.4 F Last Admin: 07/22/17 08:00 Dose: 650 mg Acetaminophen (Tylenol 650 Mg Supp) 650 mg [place] Q6 PRN PRN Reason: Fever >100.4 F Albuterol/Ipratropium (Duoneb 3 Mg/0.5 Mg (3 Ml) Ud) 3 ml INH RTID [facility] Last Admin: 07/25/17 07:53 Dose: 3 ml Clotrimazole (Lotrimin 1% Cream) 1 applic TOP BID [facility] Last Admin: 07/24/17 16:24 Dose: 1 u Aztreonam 2 gm/ Dextrose 100 mls @ 100 mls/hr IVPB Q8 [facility] PRN Reason: Protocol Last Admin: 07/25/17 00:46 Dose: 100 mls/hr Vancomycin HCl 750 mg/ Sodium (Chloride) 250 mls @ 250 mls/hr IVPB Q12H [facility] PRN Reason: Protocol Last Admin: 07/25/17 00:47 Dose: 250 mls/hr Metronidazole (Flagyl 500mg/100ml Ns) 100 mls @ 100 mls/hr IVPB Q8@0500,1300, 2100 [facility] PRN Reason: Protocol Last Admin: 07/25/17 04:43 Dose: 100 mls/hr Potassium Chloride/Dextrose/Sod Cl (Potassium Chl 20 Meq In D5-1/2ns) 1,000 mls @ 80 mls/hr IV .[id number] [facility] Stop: 07/25/17 12:02 Last Admin: 07/25/17 00:48 Dose: Not Given Nitroglycerin (Nitro-Dur 0.2 Mg/Hr Patch) 1 patch TD DAILY [facility] Last Admin: 07/24/17 08:52 Dose: 1 patch Pantoprazole Sodium (Protonix Inj) 40 mg IVP DAILY [facility] Last Admin: 07/24/17 08:52 Dose: 40 mg - Labs Labs: 07/24/17 04:37 07/24/17 04:37 PT 13.0 Seconds (9.8-13.1) 07/16/17 16:25 INR 1.2 (0.9-1.2) 07/16/17 16:25 APTT 29.7 Seconds (25.6-37.1) 07/21/17 04:50 - Constitutional Appears: Well, Non-toxic, No Acute Distress - Respiratory Exam Respiratory Exam: Clear to Ausculation Bilateral, NORMAL BREATHING PATTERN - Cardiovascular Exam Cardiovascular Exam: REGULAR RHYTHM, +S1, +S2 - GI/Abdominal Exam GI & Abdominal Exam: Soft. absent: Distended, Firm, Guarding, Rigid, Tenderness , Rebound Additional comments: dark brown fluid from drain- surgicell - Neurological Exam Neurological Exam: Alert, Awake Assessment and Plan - Assessment and Plan (Free Text) Assessment: 82F s/p lap cholecystectomy POD4 Plan: - Pain control - monitor drain output - advance diet as tolerated - Further recs discuss with Attending. Fuad Nguyen PGY2 <Josh Zarate - Last Filed: 07/25/17 13:08> Subjective - Date & Time of Evaluation Time of Evaluation: 12:10 - Subjective Subjective: Patient was seen and examined at the bedside. Agree with resident's note above. Objective - Vital Signs/Intake and Output Vital Signs (last 24 hours): Temp Pulse Resp BP Pulse Ox 98.2 F 97 H 18 127/81 99 07/25/17 07:51 07/25/17 09:56 07/25/17 07:51 07/25/17 09:56 07/25/17 07:51 Intake and Output: 07/25/17 07/25/17 06:59 18:59 Intake Total 1300 1160 Output Total 225 970 Balance 1075 190 - Medications Medications: Current Medications Acetaminophen (Tylenol 325 Mg Supp) 975 mg [place] ONCE PRN PRN Reason: Fever >100.4 F Last Admin: 07/16/17 16:40 Dose: 975 mg Acetaminophen (Tylenol 650 Mg Supp) 650 mg [place] Q6 PRN PRN Reason: Fever >100.4 F Last Admin: 07/22/17 08:00 Dose: 650 mg Acetaminophen (Tylenol 650 Mg Supp) 650 mg [place] Q6 PRN PRN Reason: Fever >100.4 F Albuterol/Ipratropium (Duoneb 3 Mg/0.5 Mg (3 Ml) Ud) 3 ml INH RTID [facility] Last Admin: 07/25/17 07:53 Dose: 3 ml Clotrimazole (Lotrimin 1% Cream) 1 applic TOP BID [facility] Last Admin: 07/25/17 10:04 Dose: 1 applic Aztreonam 2 gm/ Dextrose 100 mls @ 100 mls/hr IVPB Q8 [facility] PRN Reason: Protocol Last Admin: 07/25/17 10:02 Dose: 100 mls/hr Vancomycin HCl 750 mg/ Sodium (Chloride) 250 mls @ 250 mls/hr IVPB Q12H [facility] PRN Reason: Protocol Last Admin: 07/25/17 00:47 Dose: 250 mls/hr Metronidazole (Flagyl 500mg/100ml Ns) 100 mls @ 100 mls/hr IVPB Q8@0500,1300, 2100 [facility] PRN Reason: Protocol Last Admin: 07/25/17 04:43 Dose: 100 mls/hr Nitroglycerin (Nitro-Dur 0.2 Mg/Hr Patch) 1 patch TD DAILY [facility] Last Admin: 07/25/17 09:56 Dose: 1 patch Pantoprazole Sodium (Protonix Inj) 40 mg IVP DAILY [facility] Last Admin: 07/25/17 09:57 Dose: 40 mg - Labs Labs: 07/24/17 04:37 07/25/17 12:40 PT 13.0 Seconds (9.8-13.1) 07/16/17 16:25 INR 1.2 (0.9-1.2) 07/16/17 16:25 APTT 29.7 Seconds (25.6-37.1) 07/21/17 04:50 Assessment and Plan - Assessment and Plan (Free Text) Plan: - Continue antibiotics - Start regular diet
[2017-07-25] MEDS: Nitroglycerin 0.2 mg/hr Top Patch TD SCH (09:56)
--- NOTE | 2017-07-25 11:04 | CP.PCM.PN ---
Subjective - Date & Time of Evaluation Date of Evaluation: 07/25/17 Time of Evaluation: 08:00 - Subjective Subjective: no fever or chills po intake fair Objective - Vital Signs/Intake and Output Vital Signs (last 24 hours): Temp Pulse Resp BP Pulse Ox 98.2 F 97 H 18 127/81 99 07/25/17 07:51 07/25/17 09:56 07/25/17 07:51 07/25/17 09:56 07/25/17 07:51 Intake and Output: 07/25/17 07/25/17 06:59 18:59 Intake Total 1300 1160 Output Total 225 970 Balance 1075 190 - Medications Medications: Current Medications Acetaminophen (Tylenol 325 Mg Supp) 975 mg [place] ONCE PRN PRN Reason: Fever >100.4 F Last Admin: 07/16/17 16:40 Dose: 975 mg Acetaminophen (Tylenol 650 Mg Supp) 650 mg [place] Q6 PRN PRN Reason: Fever >100.4 F Last Admin: 07/22/17 08:00 Dose: 650 mg Acetaminophen (Tylenol 650 Mg Supp) 650 mg [place] Q6 PRN PRN Reason: Fever >100.4 F Albuterol/Ipratropium (Duoneb 3 Mg/0.5 Mg (3 Ml) Ud) 3 ml INH RTID [facility] Last Admin: 07/25/17 07:53 Dose: 3 ml Clotrimazole (Lotrimin 1% Cream) 1 applic TOP BID [facility] Last Admin: 07/25/17 10:04 Dose: 1 applic Aztreonam 2 gm/ Dextrose 100 mls @ 100 mls/hr IVPB Q8 [facility] PRN Reason: Protocol Last Admin: 07/25/17 10:02 Dose: 100 mls/hr Vancomycin HCl 750 mg/ Sodium (Chloride) 250 mls @ 250 mls/hr IVPB Q12H [facility] PRN Reason: Protocol Last Admin: 07/25/17 00:47 Dose: 250 mls/hr Metronidazole (Flagyl 500mg/100ml Ns) 100 mls @ 100 mls/hr IVPB Q8@0500,1300, 2100 [facility] PRN Reason: Protocol Last Admin: 07/25/17 04:43 Dose: 100 mls/hr Potassium Chloride/Dextrose/Sod Cl (Potassium Chl 20 Meq In D5-1/2ns) 1,000 mls @ 80 mls/hr IV .[id number] [facility] Stop: 07/25/17 12:02 Last Admin: 07/25/17 00:48 Dose: Not Given Nitroglycerin (Nitro-Dur 0.2 Mg/Hr Patch) 1 patch TD DAILY [facility] Last Admin: 07/25/17 09:56 Dose: 1 patch Pantoprazole Sodium (Protonix Inj) 40 mg IVP DAILY [facility] Last Admin: 07/25/17 09:57 Dose: 40 mg - Labs Labs: 07/24/17 04:37 07/24/17 04:37 PT 13.0 Seconds (9.8-13.1) 07/16/17 16:25 INR 1.2 (0.9-1.2) 07/16/17 16:25 APTT 29.7 Seconds (25.6-37.1) 07/21/17 04:50 - Constitutional Appears: Non-toxic, Chronically Ill - Head Exam Head Exam: NORMOCEPHALIC - Eye Exam Eye Exam: PERRL - ENT Exam ENT Exam: Mucous Membranes Dry - Neck Exam Neck Exam: absent: Lymphadenopathy - Respiratory Exam Respiratory Exam: Decreased Breath Sounds - Cardiovascular Exam Cardiovascular Exam: REGULAR RHYTHM, +S1, +S2 - GI/Abdominal Exam GI & Abdominal Exam: Distended, Soft - Rectal Exam Rectal Exam: Deferred - Exam Exam: NORMAL INSPECTION - Extremities Exam Extremities Exam: absent: Pedal Edema - Back Exam Back Exam: absent: CVA tenderness (L), CVA tenderness (R) - Neurological Exam Neurological Exam: Alert, Awake, CN II-XII Intact - Psychiatric Exam Psychiatric exam: Normal Mood - Skin Skin Exam: Dry Assessment and Plan (1) Cholecystitis Status: Acute (2) Sepsis Status: Acute (3) Abdominal pain Status: Acute (4) Dementia Status: Acute (5) Depression Status: Acute - Assessment and Plan (Free Text) Assessment: s/p sepsis / bacteremia /cholangitis s/p cholecystectomy improving possible PO cipro for 7 days upon discharge follow up with surgery
[2017-07-25 12:56] LABS: BLOOD UREA NITROGEN 3 mg/dl (7-17); CALCIUM 8.6 mg/dL (8.4-10.2); GFR AFRICAN-AMERICAN > 60; GFR NON-AFRICAN AMERICAN > 60
[2017-07-25] MEDS ORDERED: PREMIXED IVPB ONE (16:00)
[2017-07-25] MEDS ORDERED: Potassium Chloride 20 mEq 100 ML IVPB ONE (16:00)
[2017-07-25] MEDS ORDERED: POTASSIUM CHLORIDE IVPB ONE (16:00)
--- NOTE | 2017-07-25 17:23 | CP.PCM.PN ---
Subjective - Date & Time of Evaluation Date of Evaluation: 07/25/17 Time of Evaluation: 12:00 - Subjective Subjective: F/U S/P Cholecystectomy. Pt awake, no A/D. Objective - Vital Signs/Intake and Output Vital Signs (last 24 hours): Temp Pulse Resp BP Pulse Ox 98.6 F 119 H 20 121/76 95 07/25/17 16:07 07/25/17 16:07 07/25/17 16:07 07/25/17 16:07 07/25/17 16:07 Intake and Output: 07/25/17 07/25/17 06:59 18:59 Intake Total 1300 1160 Output Total 225 970 Balance 1075 190 - Medications Medications: Current Medications Acetaminophen (Tylenol 325 Mg Supp) 975 mg [place] ONCE PRN PRN Reason: Fever >100.4 F Last Admin: 07/16/17 16:40 Dose: 975 mg Acetaminophen (Tylenol 650 Mg Supp) 650 mg [place] Q6 PRN PRN Reason: Fever >100.4 F Last Admin: 07/22/17 08:00 Dose: 650 mg Acetaminophen (Tylenol 650 Mg Supp) 650 mg [place] Q6 PRN PRN Reason: Fever >100.4 F Albuterol/Ipratropium (Duoneb 3 Mg/0.5 Mg (3 Ml) Ud) 3 ml INH RTID [facility] Last Admin: 07/25/17 13:25 Dose: 3 ml Clotrimazole (Lotrimin 1% Cream) 1 applic TOP BID [facility] Last Admin: 07/25/17 10:04 Dose: 1 applic Aztreonam 2 gm/ Dextrose 100 mls @ 100 mls/hr IVPB Q8 [facility] PRN Reason: Protocol Last Admin: 07/25/17 10:02 Dose: 100 mls/hr Vancomycin HCl 750 mg/ Sodium (Chloride) 250 mls @ 250 mls/hr IVPB Q12H [facility] PRN Reason: Protocol Last Admin: 07/25/17 00:47 Dose: 250 mls/hr Metronidazole (Flagyl 500mg/100ml Ns) 100 mls @ 100 mls/hr IVPB Q8@0500,1300, 2100 [facility] PRN Reason: Protocol Last Admin: 07/25/17 14:56 Dose: 100 mls/hr Potassium Chloride (Potassium Chloride 20 Meq/100 Ml) 100 mls @ 50 mls/hr IVPB Q1 [facility] Stop: 07/25/17 17:59 Nitroglycerin (Nitro-Dur 0.2 Mg/Hr Patch) 1 patch TD DAILY [facility] Last Admin: 07/25/17 09:56 Dose: 1 patch Pantoprazole Sodium (Protonix Inj) 40 mg IVP DAILY [facility] Last Admin: 07/25/17 09:57 Dose: 40 mg Potassium Chloride (Potassium Chloride Oral Soln) 40 meq PO DAILY [facility] - Labs Labs: 07/24/17 04:37 07/25/17 12:40 PT 13.0 Seconds (9.8-13.1) 07/16/17 16:25 INR 1.2 (0.9-1.2) 07/16/17 16:25 APTT 29.7 Seconds (25.6-37.1) 07/21/17 04:50 - Constitutional Appears: Chronically Ill - Head Exam Head Exam: NORMAL INSPECTION - Eye Exam Eye Exam: PERRL - ENT Exam Additional comments: On NC - Neck Exam Neck Exam: Normal Inspection - Respiratory Exam Respiratory Exam: Decreased Breath Sounds (at bases) - Cardiovascular Exam Cardiovascular Exam: REGULAR RHYTHM - GI/Abdominal Exam GI & Abdominal Exam: Tenderness (minimal post surgical.) Additional comments: Surgical scars, KEVIN drainage. - Extremities Exam Extremities Exam: Normal Inspection - Back Exam Back Exam: NORMAL INSPECTION - Neurological Exam Additional comments: Lethargic, limited spontaneous movements all extremities. - Psychiatric Exam Additional comments: Lethargic. - Skin Skin Exam: Warm Assessment and Plan (1) S/P laparoscopic cholecystectomy Status: Acute (2) Sepsis Status: Acute (3) Dementia Status: Chronic (4) HTN (hypertension) Status: Acute (5) Chronic back pain Status: Chronic (6) Seizure Status: Chronic (7) Generalized weakness Status: Chronic (8) COPD (chronic obstructive pulmonary disease) - Assessment and Plan (Free Text) Plan: Puree diet, continue current Tx.
[2017-07-25] MEDS: Potassium Chloride 20 mEq/15 ml LIQ UD PO SCH (17:28)
[2017-07-25 23:57] VITALS: RESP 18; O2SAT 96
[2017-07-26] MEDS: Aztreonam 2 GM in Dextrose 5% In Water 100 ML IVPB SCH ×2 (01:15→08:22)
[2017-07-26] MEDS: metroNIDAZOLE 500mg/100ml NS 100 ML IVPB SCH (05:21)
[2017-07-26] MEDS: Albuterol-Ipratrop 3 mg / 0.5 (3 ml) UD INH SCH ×2 (07:09→13:04)
[2017-07-26 07:49] VITALS: BP 103/68; PULSE 97; TEMP 97.7
--- NOTE | 2017-07-26 07:54 | CP.PCM.PN ---
<Shlomo Nguyen - Last Filed: 07/26/17 07:52> Subjective - Date & Time of Evaluation Date of Evaluation: 07/26/17 Time of Evaluation: 07:52 - Subjective Subjective: SURGERY NOTE FOR DR. ZARATE 82F seen and examined at bedside. No acute events overnight. Patient resting comfortably. Denies pain, Tolerating diet. Objective - Vital Signs/Intake and Output Vital Signs (last 24 hours): Temp Pulse Resp BP Pulse Ox 97.7 F 97 H 18 103/68 96 07/26/17 07:49 07/26/17 07:49 07/26/17 07:49 07/26/17 07:49 07/26/17 07:49 - Medications Medications: Current Medications Acetaminophen (Tylenol 325 Mg Supp) 975 mg [place] ONCE PRN PRN Reason: Fever >100.4 F Last Admin: 07/16/17 16:40 Dose: 975 mg Acetaminophen (Tylenol 650 Mg Supp) 650 mg [place] Q6 PRN PRN Reason: Fever >100.4 F Albuterol/Ipratropium (Duoneb 3 Mg/0.5 Mg (3 Ml) Ud) 3 ml INH RTID [facility] Last Admin: 07/26/17 07:09 Dose: Not Given Clotrimazole (Lotrimin 1% Cream) 1 applic TOP BID [facility] Last Admin: 07/25/17 17:25 Dose: 1 applic Aztreonam 2 gm/ Dextrose 100 mls @ 100 mls/hr IVPB Q8 [facility] PRN Reason: Protocol Last Admin: 07/26/17 01:15 Dose: 100 mls/hr Metronidazole (Flagyl 500mg/100ml Ns) 100 mls @ 100 mls/hr IVPB Q8@0500,1300, 2100 [facility] PRN Reason: Protocol Last Admin: 07/26/17 05:21 Dose: 100 mls/hr Vancomycin HCl 750 mg/ Sodium (Chloride) 250 mls @ 250 mls/hr IVPB Q12@0500, 1700 [facility] PRN Reason: Protocol Last Admin: 07/26/17 05:22 Dose: 250 mls/hr Nitroglycerin (Nitro-Dur 0.2 Mg/Hr Patch) 1 patch TD DAILY [facility] Last Admin: 07/25/17 09:56 Dose: 1 patch Pantoprazole Sodium (Protonix Inj) 40 mg IVP DAILY [facility] Last Admin: 07/25/17 09:57 Dose: 40 mg Potassium Chloride (Potassium Chloride Oral Soln) 40 meq PO DAILY [facility] Last Admin: 07/25/17 17:28 Dose: 40 meq - Labs Labs: 07/24/17 04:37 07/25/17 12:40 PT 13.0 Seconds (9.8-13.1) 07/16/17 16:25 INR 1.2 (0.9-1.2) 07/16/17 16:25 APTT 29.7 Seconds (25.6-37.1) 07/21/17 04:50 - Constitutional Appears: Well, Non-toxic, No Acute Distress - Respiratory Exam Respiratory Exam: Clear to Ausculation Bilateral, NORMAL BREATHING PATTERN - Cardiovascular Exam Cardiovascular Exam: REGULAR RHYTHM, +S1, +S2 - GI/Abdominal Exam GI & Abdominal Exam: Soft. absent: Distended, Firm, Guarding, Rigid, Tenderness , Rebound Additional comments: incisions CDI, Dark fluid from drain, likely from surgicell - Neurological Exam Neurological Exam: Awake - Skin Skin Exam: Dry, Intact, Normal Color, Warm Assessment and Plan - Assessment and Plan (Free Text) Assessment: 82F s/p laparoscopic cholecystectomy POD 5 Plan: Continue reg diet Possible drain removals if tolerating diet pain control Further recs discuss with Dr. Elliot Nguyen, PGY2 <Josh Zarate - Last Filed: 07/26/17 11:58> Subjective - Date & Time of Evaluation Time of Evaluation: 10:15 - Subjective Subjective: Patient was seen and examined at the bedside. Agree with resident's note above. Objective - Vital Signs/Intake and Output Vital Signs (last 24 hours): Temp Pulse Resp BP Pulse Ox 97.7 F 97 H 18 103/68 96 07/26/17 07:49 07/26/17 08:23 07/26/17 07:49 07/26/17 08:23 07/26/17 07:49 - Medications Medications: Current Medications Acetaminophen (Tylenol 325 Mg Supp) 975 mg [place] ONCE PRN PRN Reason: Fever >100.4 F Last Admin: 07/16/17 16:40 Dose: 975 mg Acetaminophen (Tylenol 650 Mg Supp) 650 mg [place] Q6 PRN PRN Reason: Fever >100.4 F Albuterol/Ipratropium (Duoneb 3 Mg/0.5 Mg (3 Ml) Ud) 3 ml INH RTID [facility] Last Admin: 07/26/17 07:09 Dose: Not Given Clotrimazole (Lotrimin 1% Cream) 1 applic TOP BID [facility] Last Admin: 07/26/17 08:25 Dose: 1 applic Aztreonam 2 gm/ Dextrose 100 mls @ 100 mls/hr IVPB Q8 [facility] PRN Reason: Protocol Last Admin: 07/26/17 08:22 Dose: 100 mls/hr Metronidazole (Flagyl 500mg/100ml Ns) 100 mls @ 100 mls/hr IVPB Q8@0500,1300, 2100 [facility] PRN Reason: Protocol Last Admin: 07/26/17 05:21 Dose: 100 mls/hr Vancomycin HCl 750 mg/ Sodium (Chloride) 250 mls @ 250 mls/hr IVPB Q12@0500, 1700 [facility] PRN Reason: Protocol Last Admin: 07/26/17 05:22 Dose: 250 mls/hr Nitroglycerin (Nitro-Dur 0.2 Mg/Hr Patch) 1 patch TD DAILY [facility] Last Admin: 07/26/17 08:23 Dose: 1 patch Pantoprazole Sodium (Protonix Inj) 40 mg IVP DAILY [facility] Last Admin: 07/26/17 08:24 Dose: 40 mg Potassium Chloride (Potassium Chloride Oral Soln) 40 meq PO DAILY [facility] Last Admin: 07/26/17 08:24 Dose: 40 meq - Labs Labs: 07/24/17 04:37 07/26/17 07:15 PT 13.0 Seconds (9.8-13.1) 07/16/17 16:25 INR 1.2 (0.9-1.2) 07/16/17 16:25 APTT 29.7 Seconds (25.6-37.1) 07/21/17 04:50 Assessment and Plan - Assessment and Plan (Free Text) Plan: - removed [place] drain - Continue antibiotics - Patient is clear for discharge to [facility] from the general surgery stand point
[2017-07-26] MEDS: Nitroglycerin 0.2 mg/hr Top Patch TD SCH (08:23)
[2017-07-26] MEDS: Potassium Chloride 20 mEq/15 ml LIQ UD PO SCH (08:24)
[2017-07-26 08:36] LABS: ALB/GLOB RATIO 0.9 (1.0-2.1); ALBUMIN 2.8 g/dL (3.5-5.0); ALT/SGPT 51 U/L (9-52); AST/SGOT 19 U/L (14-36); BLOOD UREA NITROGEN 3 mg/dl (7-17); CALCIUM 8.8 mg/dL (8.4-10.2); GFR AFRICAN-AMERICAN > 60; GFR NON-AFRICAN AMERICAN > 60
--- NOTE | 2017-07-26 09:41 | CP.PCM.PN ---
Subjective - Date & Time of Evaluation Date of Evaluation: 07/25/17 Time of Evaluation: 09:10 - Subjective Subjective: no overnight events Objective - Vital Signs/Intake and Output Vital Signs (last 24 hours): Temp Pulse Resp BP Pulse Ox 97.7 F 97 H 18 103/68 96 07/26/17 07:49 07/26/17 08:23 07/26/17 07:49 07/26/17 08:23 07/26/17 07:49 - Medications Medications: Current Medications Acetaminophen (Tylenol 325 Mg Supp) 975 mg [place] ONCE PRN PRN Reason: Fever >100.4 F Last Admin: 07/16/17 16:40 Dose: 975 mg Acetaminophen (Tylenol 650 Mg Supp) 650 mg [place] Q6 PRN PRN Reason: Fever >100.4 F Albuterol/Ipratropium (Duoneb 3 Mg/0.5 Mg (3 Ml) Ud) 3 ml INH RTID [facility] Last Admin: 07/26/17 07:09 Dose: Not Given Clotrimazole (Lotrimin 1% Cream) 1 applic TOP BID [facility] Last Admin: 07/26/17 08:25 Dose: 1 applic Aztreonam 2 gm/ Dextrose 100 mls @ 100 mls/hr IVPB Q8 [facility] PRN Reason: Protocol Last Admin: 07/26/17 08:22 Dose: 100 mls/hr Metronidazole (Flagyl 500mg/100ml Ns) 100 mls @ 100 mls/hr IVPB Q8@0500,1300, 2100 [facility] PRN Reason: Protocol Last Admin: 07/26/17 05:21 Dose: 100 mls/hr Vancomycin HCl 750 mg/ Sodium (Chloride) 250 mls @ 250 mls/hr IVPB Q12@0500, 1700 [facility] PRN Reason: Protocol Last Admin: 07/26/17 05:22 Dose: 250 mls/hr Nitroglycerin (Nitro-Dur 0.2 Mg/Hr Patch) 1 patch TD DAILY [facility] Last Admin: 07/26/17 08:23 Dose: 1 patch Pantoprazole Sodium (Protonix Inj) 40 mg IVP DAILY [facility] Last Admin: 07/26/17 08:24 Dose: 40 mg Potassium Chloride (Potassium Chloride Oral Soln) 40 meq PO DAILY [facility] Last Admin: 07/26/17 08:24 Dose: 40 meq - Labs Labs: 07/24/17 04:37 07/26/17 07:15 PT 13.0 Seconds (9.8-13.1) 07/16/17 16:25 INR 1.2 (0.9-1.2) 07/16/17 16:25 APTT 29.7 Seconds (25.6-37.1) 07/21/17 04:50 - ENT Exam ENT Exam: Normal Exam - Neck Exam Neck Exam: Normal Inspection - Respiratory Exam Respiratory Exam: Clear to Ausculation Bilateral - Cardiovascular Exam Cardiovascular Exam: REGULAR RHYTHM - GI/Abdominal Exam GI & Abdominal Exam: Soft, Normal Bowel Sounds Assessment and Plan - Assessment and Plan (Free Text) Assessment: 82 yo female with cholecystitis doing well dc planning when able
--- NOTE | 2017-07-26 10:06 | CP.PCM.PN ---
Subjective - Date & Time of Evaluation Date of Evaluation: 07/26/17 Time of Evaluation: 10:05 - Subjective Subjective: no overnight events Objective - Vital Signs/Intake and Output Vital Signs (last 24 hours): Temp Pulse Resp BP Pulse Ox 97.7 F 97 H 18 103/68 96 07/26/17 07:49 07/26/17 08:23 07/26/17 07:49 07/26/17 08:23 07/26/17 07:49 - Medications Medications: Current Medications Acetaminophen (Tylenol 325 Mg Supp) 975 mg SD ONCE PRN PRN Reason: Fever >100.4 F Last Admin: 07/16/17 16:40 Dose: 975 mg Acetaminophen (Tylenol 650 Mg Supp) 650 mg [place] Q6 PRN PRN Reason: Fever >100.4 F Albuterol/Ipratropium (Duoneb 3 Mg/0.5 Mg (3 Ml) Ud) 3 ml INH RTID [facility] Last Admin: 07/26/17 07:09 Dose: Not Given Clotrimazole (Lotrimin 1% Cream) 1 applic TOP BID [facility] Last Admin: 07/26/17 08:25 Dose: 1 applic Aztreonam 2 gm/ Dextrose 100 mls @ 100 mls/hr IVPB Q8 [facility] PRN Reason: Protocol Last Admin: 07/26/17 08:22 Dose: 100 mls/hr Metronidazole (Flagyl 500mg/100ml Ns) 100 mls @ 100 mls/hr IVPB Q8@0500,1300, 2100 [facility] PRN Reason: Protocol Last Admin: 07/26/17 05:21 Dose: 100 mls/hr Vancomycin HCl 750 mg/ Sodium (Chloride) 250 mls @ 250 mls/hr IVPB Q12@0500, 1700 [facility] PRN Reason: Protocol Last Admin: 07/26/17 05:22 Dose: 250 mls/hr Nitroglycerin (Nitro-Dur 0.2 Mg/Hr Patch) 1 patch TD DAILY [facility] Last Admin: 07/26/17 08:23 Dose: 1 patch Pantoprazole Sodium (Protonix Inj) 40 mg IVP DAILY [facility] Last Admin: 07/26/17 08:24 Dose: 40 mg Potassium Chloride (Potassium Chloride Oral Soln) 40 meq PO DAILY [facility] Last Admin: 07/26/17 08:24 Dose: 40 meq - Labs Labs: 07/24/17 04:37 07/26/17 07:15 PT 13.0 Seconds (9.8-13.1) 07/16/17 16:25 INR 1.2 (0.9-1.2) 07/16/17 16:25 APTT 29.7 Seconds (25.6-37.1) 07/21/17 04:50 - Neck Exam Neck Exam: Normal Inspection - Respiratory Exam Respiratory Exam: Clear to Ausculation Bilateral, NORMAL BREATHING PATTERN - Cardiovascular Exam Cardiovascular Exam: REGULAR RHYTHM - GI/Abdominal Exam GI & Abdominal Exam: Soft, Normal Bowel Sounds Assessment and Plan - Assessment and Plan (Free Text) Assessment: 82 yo female with cholecystitis doing well post op dc planning when able
--- NOTE | 2017-07-26 10:35 | CP.PCM.PN ---
Subjective - Date & Time of Evaluation Date of Evaluation: 07/26/17 Time of Evaluation: 07:00 - Subjective Subjective: improving possible d/c on po rx Objective - Vital Signs/Intake and Output Vital Signs (last 24 hours): Temp Pulse Resp BP Pulse Ox 97.7 F 97 H 18 103/68 96 07/26/17 07:49 07/26/17 08:23 07/26/17 07:49 07/26/17 08:23 07/26/17 07:49 - Medications Medications: Current Medications Acetaminophen (Tylenol 325 Mg Supp) 975 mg [place] ONCE PRN PRN Reason: Fever >100.4 F Last Admin: 07/16/17 16:40 Dose: 975 mg Acetaminophen (Tylenol 650 Mg Supp) 650 mg [place] Q6 PRN PRN Reason: Fever >100.4 F Albuterol/Ipratropium (Duoneb 3 Mg/0.5 Mg (3 Ml) Ud) 3 ml INH RTID [facility] Last Admin: 07/26/17 07:09 Dose: Not Given Clotrimazole (Lotrimin 1% Cream) 1 applic TOP BID [facility] Last Admin: 07/26/17 08:25 Dose: 1 applic Aztreonam 2 gm/ Dextrose 100 mls @ 100 mls/hr IVPB Q8 [facility] PRN Reason: Protocol Last Admin: 07/26/17 08:22 Dose: 100 mls/hr Metronidazole (Flagyl 500mg/100ml Ns) 100 mls @ 100 mls/hr IVPB Q8@0500,1300, 2100 [facility] PRN Reason: Protocol Last Admin: 07/26/17 05:21 Dose: 100 mls/hr Vancomycin HCl 750 mg/ Sodium (Chloride) 250 mls @ 250 mls/hr IVPB Q12@0500, 1700 [facility] PRN Reason: Protocol Last Admin: 07/26/17 05:22 Dose: 250 mls/hr Nitroglycerin (Nitro-Dur 0.2 Mg/Hr Patch) 1 patch TD DAILY [facility] Last Admin: 07/26/17 08:23 Dose: 1 patch Pantoprazole Sodium (Protonix Inj) 40 mg IVP DAILY [facility] Last Admin: 07/26/17 08:24 Dose: 40 mg Potassium Chloride (Potassium Chloride Oral Soln) 40 meq PO DAILY [facility] Last Admin: 07/26/17 08:24 Dose: 40 meq - Labs Labs: 07/24/17 04:37 07/26/17 07:15 PT 13.0 Seconds (9.8-13.1) 07/16/17 16:25 INR 1.2 (0.9-1.2) 07/16/17 16:25 APTT 29.7 Seconds (25.6-37.1) 07/21/17 04:50 - Constitutional Appears: Non-toxic, Chronically Ill - Head Exam Head Exam: NORMOCEPHALIC - Eye Exam Eye Exam: absent: Scleral icterus - ENT Exam ENT Exam: Mucous Membranes Dry - Neck Exam Neck Exam: absent: Lymphadenopathy - Respiratory Exam Respiratory Exam: Decreased Breath Sounds - Cardiovascular Exam Cardiovascular Exam: REGULAR RHYTHM - GI/Abdominal Exam GI & Abdominal Exam: Distended, Soft Assessment and Plan (1) Cholecystitis Status: Acute (2) Sepsis Status: Acute (3) Abdominal pain Status: Acute (4) Dementia Status: Acute (5) Depression Status: Acute
[2017-07-26] MEDS ORDERED: Potassium Chloride 20 mEq ER Tab PO ONE (12:01)
--- NOTE | 2017-07-26 12:04 | CP.PCM.PCO ---
Assessment/Plan - Assessment/Plan Assessment (Free Text): Pt stable, drain d/c'd by Dr. Zarate who cleared pt for d/c. Pt seen and cleared for d/c back to [facility] by all consultants. Per Judson Chung, LESLY Cipro x 7 days. Pt seen and cleared for d/c back to NH by DR. Lara. He will follow pt there. Extra dose of potassium given.
--- NOTE | 2017-07-26 16:54 | CP.PCM.DIS ---
Provider - Provider Date of Admission: 07/16/17 17:36 Attending physician: Sj Lara MD Diagnosis - Discharge Diagnosis (1) S/P laparoscopic cholecystectomy Status: Acute (2) Sepsis Status: Acute Priority: High (3) Dementia Status: Chronic Priority: High (4) HTN (hypertension) Status: Acute Priority: Medium (5) Chronic back pain Status: Chronic Priority: Medium (6) Seizure Status: Chronic Priority: Medium (7) Generalized weakness Status: Chronic Priority: High (8) COPD (chronic obstructive pulmonary disease) Priority: Medium Hospital Course - Lab Results Lab Results: Micro Results 07/22/17 13:47 Blood-Venous Blood Culture - Preliminary NO GROWTH AFTER 4 DAYS 07/22/17 13:37 Blood-Venous Blood Culture - Preliminary NO GROWTH AFTER 4 DAYS 07/24/17 20:08 Naris MRSA Culture (Admit) - Final MRSA NOT DETECTED 07/22/17 17:25 Sputum Induced Gram Stain - Final 07/22/17 17:25 Sputum Induced Sputum Culture - Final NORMAL ORAL ANN-MARIE 07/22/17 14:48 Urine,[place] Urine Culture - Final No Growth (<1,000 CFU/ML) 07/16/17 16:30 Blood-Venous Blood Culture - Final Klebsiella Pneumoniae 07/16/17 16:30 Blood-Venous Gram Stain - Final 07/16/17 16:25 Blood-Venous Blood Culture - Final Klebsiella Pneumoniae Ssp Pneu 07/16/17 16:25 Blood-Venous Gram Stain - Final 07/16/17 15:00 Naris MRSA Culture (Admit) - Final MRSA NOT DETECTED 07/16/17 16:50 Urine,Catheterized Urine Culture - Final 50-100,000 CFU/ML. MULTIPLE SPECIES. SUGGEST REPEAT SPECIMEN. Most Recent Lab Values WBC 7.1 K/uL (4.8-10.8) 07/24/17 04:37 RBC 4.37 Mil/uL (3.80-5.20) 07/24/17 04:37 Hgb 12.3 g/dL (12.0-16.0) 07/24/17 04:37 Hct 37.5 % (34.0-47.0) 07/24/17 04:37 MCV 85.8 fl (81.0-99.0) 07/24/17 04:37 MCH 28.2 pg (27.0-31.0) 07/24/17 04:37 MCHC 32.8 g/dL (33.0-37.0) L 07/24/17 04:37 RDW 16.2 % (11.5-14.5) H 07/24/17 04:37 Plt Count 164 K/uL (130-400) 07/24/17 04:37 MPV 9.8 fl (7.2-11.7) 07/24/17 04:37 Neut % (Auto) 72.9 % (50.0-75.0) 07/24/17 04:37 Lymph % (Auto) 14.6 % (20.0-40.0) L 07/24/17 04:37 [place] % (Auto) 9.6 % (0.0-10.0) 07/24/17 04:37 Eos % (Auto) 2.4 % (0.0-4.0) 07/24/17 04:37 Baso % (Auto) 0.5 % (0.0-2.0) 07/24/17 04:37 Neut # (Auto) 5.2 K/uL (1.8-7.0) 07/24/17 04:37 Lymph # (Auto) 1.0 K/uL (1.0-4.3) 07/24/17 04:37 [place] # (Auto) 0.7 K/uL (0.0-0.8) 07/24/17 04:37 Eos # (Auto) 0.2 K/uL (0.0-0.7) 07/24/17 04:37 Baso # (Auto) 0.0 K/uL (0.0-0.2) 07/24/17 04:37 Neutrophils % (Manual) 49 % (42-75) 07/21/17 04:50 Band Neutrophils % 1 % (0-2) 07/16/17 16:25 Lymphocytes % (Manual) 24 % (20-50) 07/21/17 04:50 Monocytes % (Manual) 21 % (0-10) H 07/21/17 04:50 Eosinophils % (Manual) 5 % (0-7) 07/21/17 04:50 Basophils % (Manual) 1 % (0-2) 07/21/17 04:50 Platelet Estimate Decreased (NORMAL) L 07/21/17 04:50 Large Platelets Present 07/21/17 04:50 RBC Morphology Normal (NORMAL) 07/16/17 16:25 Hypochromasia (manual) Slight 07/21/17 04:50 Anisocytosis (manual) Slight 07/21/17 04:50 Ovalocytes Slight 07/21/17 04:50 PT 13.0 Seconds (9.8-13.1) 07/16/17 16:25 INR 1.2 (0.9-1.2) 07/16/17 16:25 APTT 29.7 Seconds (25.6-37.1) 07/21/17 04:50 pCO2 26 mm/Hg (35-45) L 07/23/17 04:48 pO2 137 mm/Hg (80-100) H 07/23/17 04:48 HCO3 27.2 mmol/L (21-28) 07/23/17 04:48 ABG pH 7.57 (7.35-7.45) H 07/23/17 04:48 ABG Total CO2 24.6 mmol/L (22-28) 07/23/17 04:48 ABG O2 Saturation 99.9 % (95-98) H 07/23/17 04:48 ABG O2 Content 18.4 ML/dL (15-23) 07/23/17 04:48 ABG Base Excess 2.9 mmol/L (-2.0-3.0) 07/23/17 04:48 ABG Hemoglobin 13.4 g/dL (11.7-17.4) 07/23/17 04:48 ABG Carboxyhemoglobin 1.9 % (0.5-1.5) H 07/23/17 04:48 POC ABG HHb (Measured) 0.1 % (0.0-5.0) 07/23/17 04:48 ABG Methemoglobin 1.3 % (0.0-3.0) 07/23/17 04:48 ABG O2 Capacity 18.4 mL/dL (16-24) 07/23/17 04:48 Oswaldo Test Yes 07/23/17 04:48 VBG pH 7.43 (7.32-7.43) 07/16/17 20:14 VBG pCO2 45 mmHg (40-60) 07/16/17 20:14 VBG HCO3 28.4 mmol/L 07/16/17 20:14 VBG Total CO2 31.3 mmol/L (22-28) H 07/16/17 20:14 VBG O2 Sat (Calc) 92.2 % (40-65) H 07/16/17 20:14 VBG Base Excess 4.8 mmol/L (0.0-2.0) H 07/16/17 20:14 VBG Potassium 3.1 mmol/L (3.6-5.2) L 07/16/17 20:14 A-a O2 Difference 116.0 mm/Hg 07/23/17 04:48 Hgb O2 Saturation 96.7 % (95.0-98.0) 07/23/17 04:48 Sodium 137.0 mmol/L (132-148) 07/16/17 20:14 Chloride 103.0 mmol/L (98-107) 07/16/17 20:14 Glucose 151 mg/dL (65-105) H 07/16/17 20:14 Lactate 1.5 mmol/L (0.7-2.1) 07/16/17 20:14 Vent Mode A/c 07/23/17 04:48 Mechanical Rate 12 07/23/17 04:48 FiO2 40.0 % 07/23/17 04:48 Tidal Volume 450 07/23/17 04:48 PEEP 5 07/23/17 04:48 Sodium 144 mmol/l (132-148) 07/26/17 07:15 Potassium 3.2 MMOL/L (3.6-5.0) L 07/26/17 07:15 Chloride 104 mmol/L (98-107) 07/26/17 07:15 Carbon Dioxide 28 mmol/L (22-30) 07/26/17 07:15 Anion Gap 15 (10-20) 07/26/17 07:15 BUN 3 mg/dl (7-17) L 07/26/17 07:15 Creatinine 0.3 mg/dl (0.7-1.2) L 07/26/17 07:15 Est GFR ( Amer) > 60 07/26/17 07:15 Est GFR (Non-Af Amer) > 60 07/26/17 07:15 POC Glucose (mg/dL) 144 mg/dL (65-110) H 07/16/17 16:20 Random Glucose 98 mg/dL (65-105) 07/26/17 07:15 Lactic Acid 1.7 MMOL/L (0.7-2.1) 07/23/17 05:30 Calcium 8.8 mg/dL (8.4-10.2) 07/26/17 07:15 Phosphorus 2.4 mg/dl (2.5-4.5) L 07/24/17 04:37 Magnesium 2.0 MG/DL (1.6-2.3) 07/24/17 04:37 Total Bilirubin 0.8 mg/dl (0.2-1.3) 07/26/17 07:15 AST 19 U/L (14-36) 07/26/17 07:15 ALT 51 U/L (9-52) 07/26/17 07:15 Alkaline Phosphatase 113 U/L (38-126) 07/26/17 07:15 Troponin I < 0.0120 ng/mL (0.00-0.120) 07/16/17 16:25 Total Protein 5.9 G/DL (6.3-8.2) L 07/26/17 07:15 Albumin 2.8 g/dL (3.5-5.0) L 07/26/17 07:15 Globulin 3.1 gm/dL (2.2-3.9) 07/26/17 07:15 Albumin/Globulin Ratio 0.9 (1.0-2.1) L 07/26/17 07:15 Venous Blood Potassium 3.1 mmol/L (3.6-5.2) L 07/16/17 20:14 Urine Color Yellow (YELLOW) 07/22/17 14:48 Urine Clarity Slighty-cloudy (Clear) 07/22/17 14:48 Urine pH 5.0 (5.0-8.0) 07/22/17 14:48 Ur Specific [place] 1.023 (1.003-1.030) 07/22/17 14:48 Urine Protein 30 mg/dL (NEGATIVE) 07/22/17 14:48 Urine Glucose (UA) Neg mg/dL (Normal) 07/22/17 14:48 Urine Ketones Negative mg/dL (NEGATIVE) 07/22/17 14:48 Urine Blood Negative (NEGATIVE) 07/22/17 14:48 Urine Nitrate Negative (NEGATIVE) 07/22/17 14:48 Urine Bilirubin Negative (NEGATIVE) 07/22/17 14:48 Urine Urobilinogen 0.2-1.0 mg/dL (0.2-1.0) 07/22/17 14:48 Ur Leukocyte Esterase Trace Suhas/uL (Negative) 07/22/17 14:48 Urine RBC (Auto) 2 /hpf (0-3) 07/22/17 14:48 Urine Microscopic WBC 3 /hpf (0-5) 07/22/17 14:48 Ur Squamous Epith Cells 1 /hpf (0-5) 07/22/17 14:48 Urine Bacteria Rare (<OCC) 07/22/17 14:48 Hyaline Casts 0-2 /hpf (0-2) 07/16/17 16:50 Vancomycin Trough 11.1 ug/mL (5.0-10.0) H 07/25/17 10:55 Hepatitis A IgM Ab Negative (NEGATIVE) 07/17/17 05:37 Hep Bs Antigen Negative (NEGATIVE) 07/17/17 05:37 Hep B Core IgM Ab Negative (NEGATIVE) 07/17/17 05:37 Hepatitis C Antibody Negative (NEGATIVE) 07/17/17 05:37 Discharge Exam - Head Exam Head Exam: NORMOCEPHALIC Discharge Plan - Discharge Medications Prescriptions: Ciprofloxacin HCl [Cipro] 500 mg PO BID #14 tablet - Follow Up Plan Condition: SERIOUS Disposition: TRANSF TO SNF Instructions: Heart Failure, Adult, Cholecystectomy (DC)
== END 2017-07-26 14:56 | DRG 853 ==
LOC: H.ER 15:35 → H.ERHOLD 17:36 → H.ICU/CCU 21:25 → H.MEDSURG1 07-24 13:24
PROVIDERS: ADMIT Internal Medicine Pulmonary Disease; ATTEND Internal Medicine Pulmonary Disease
PROC: 5A1945Z Respiratory Ventilation, 24-96 Consecutive Hours (ICD-10-PCS; 2017-07-21)
PROC: 0BH17EZ Insertion of Endotracheal Airway into Trachea, Via Natural or Artificial Opening (ICD-10-PCS; 2017-07-21)
PROC: 0FT44ZZ Resection of Gallbladder, Percutaneous Endoscopic Approach (ICD-10-PCS; principal; 2017-07-21 14:30)
DX: A41.59 Other Gram-negative sepsis (principal); J95.821 Acute postprocedural respiratory failure; K83.0 Cholangitis; R56.9 Unspecified convulsions; I11.0 Hypertensive heart disease with heart failure; I50.9 Heart failure, unspecified; K80.00 Calculus of gallbladder with acute cholecystitis without obstruction; J44.9 Chronic obstructive pulmonary disease, unspecified; F03.90 Unspecified dementia, unspecified severity, without behavioral disturbance, psychotic disturbance, mood disturbance, and anxiety; E78.00 Pure hypercholesterolemia, unspecified; R65.20 Severe sepsis without septic shock; E78.5 Hyperlipidemia, unspecified; E87.6 Hypokalemia; F32.9 Major depressive disorder, single episode, unspecified; K66.0 Peritoneal adhesions (postprocedural) (postinfection); K76.0 Fatty (change of) liver, not elsewhere classified; M81.0 Age-related osteoporosis without current pathological fracture; Z79.82 Long term (current) use of aspirin; Z95.1 Presence of aortocoronary bypass graft; B96.1 Klebsiella pneumoniae [K. pneumoniae] as the cause of diseases classified elsewhere; D64.9 Anemia, unspecified; F41.9 Anxiety disorder, unspecified; K59.00 Constipation, unspecified; M19.90 Unspecified osteoarthritis, unspecified site; R32 Unspecified urinary incontinence; Z79.899 Other long term (current) drug therapy; M54.9 Dorsalgia, unspecified; R74.0 Nonspecific elevation of levels of transaminase and lactic acid dehydrogenase [LDH]; R93.1 Abnormal findings on diagnostic imaging of heart and coronary circulation

== ENCOUNTER 2018-04-11 21:05 | Inpatient (IN) | payer MEDICARE, MEDICAID ==
[2018-04-11 21:05] VITALS: BMI 21.5
[2018-04-11] MEDS ORDERED: Sodium Chloride 0.9% 500 ML IV STA (21:52)
--- NOTE | 2018-04-11 22:23 | ED PDOC ---
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 No history is able to be obtained from patient as she has severe dementia. According to EMS, while patient was being moved from wheelchair to bed, [facility] staff noticed her right knee was swollen and sent her in her evaluation. ROS unobtainable from patient. PMD: Sj Lara Past Medical History Reviewed: Historical Data, Vital Signs Vital Signs: Last Vital Signs Temp 100.2 F H 04/11/18 21:45 Pulse 104 H 04/11/18 21:11 Resp 16 04/11/18 21:11 BP 140/65 04/11/18 21:11 Pulse Ox 94 L 04/11/18 21:11 - Medical History PMH: Anemia, Anxiety, Arthritis (poly), Asthma, Back Problems, CHF, COPD, Dementia, Depression, Fractures (L wrist , comp Fx T Spine), HTN, Hypercholesterolemia, Osteoporosis, Seizures Denies: HIV, Chronic Kidney Disease - Surgical History Surgical History: CABG - Family History Family History: States: Unknown Family Hx, CAD - Immunization History Hx Tetanus Toxoid Vaccination: No - Home Medications Home Medications: Ambulatory Orders Medication Instructions Recorded RX: Acetaminophen [Tylenol 325mg 650 mg PO Q4H PRN 05/06/17 tab] RX: Atorvastatin [Lipitor] 40 mg PO HS 05/06/17 RX: Bisacodyl [Fast Relief 1 supp SD DAILY PRN 05/06/17 Laxative] RX: Cyanocobalamin [Vitamin B12 1,000 mcg IM Q30D 05/06/17 1000 mcg/ml Inj] RX: Ergocalciferol (Vitamin D2) 50,000 unit PO WE 05/06/17 [Vitamin D2] RX: Gabapentin [Neurontin] 100 mg PO TID 05/06/17 RX: Meclizine [Antivert] 12.5 mg PO TID 05/06/17 RX: lamoTRIgine [Lamictal] 25 mg PO TID 05/06/17 RX: Calcium/Vitamin D [Oyster 1 tab PO DAILY tab 05/23/17 Shell Calcium/Vitamin D 500 mg-200 IU] RX: Acetaminophen [Tylenol 650 mg 650 mg PO Q4H PRN 05/25/17 Supp] RX: Aspirin [Ecotrin] 81 mg PO DAILY 05/25/17 RX: DULoxetine [Cymbalta] 20 mg PO DAILY 05/25/17 RX: Lactulose [Generlac] 20 gm PO BID 05/25/17 RX: Magnesium Hydroxide [Milk Of 30 ml PO HS PRN 05/25/17 Magnesia] RX: Nitroglycerin 0.2 mg/hr 1 patch TD DAILY 05/25/17 [Nitro-Dur 0.2 mg/hr Patch] RX: fentaNYL 12 mcg/hr [Duragesic 1 patch TD Q72H 05/25/17 Patch 12 mcg/hr] RX: amLODIPine [Norvasc] 5 mg PO DAILY tab 06/03/17 Budesonide/Formoterol Fumarate 10.2 g INH Q12 04/12/18 [Symbicort 160-4.5 Mcg Inhaler] RX: Potassium Chloride [Potassium 20 meq PO BID 04/12/18 Chloride Oral Soln] - Allergies Allergies/Adverse Reactions: Allergies Allergy/AdvReac Type Severity Reaction Status Date / Time Penicillins Allergy RASH Verified 05/25/17 12:15 Review of Systems Review Of Systems: ROS cannot be obtained secondary to pt's inabilty to answer questions. Physical Exam - Reviewed Nursing Documentation Reviewed: Yes Vital Signs Reviewed: Yes - Physical Exam Appears: Positive for: No Acute Distress (but chronically ill and febrile) Head Exam: Positive for: ATRAUMATIC, NORMOCEPHALIC Skin: Positive for: Pallor Eye Exam: Positive for: EOMI, Conjunctival injection ENT: Positive for: Other (tacky mucus membranes) Neck: Positive for: Painless ROM, Supple Cardiovascular/Chest: Positive for: Murmur, Tachycardia Respiratory: Positive for: Rales (in bases of bilateral lung figueroa), Other (upper lung figueroa cleared to auscultation). Negative for: Respiratory Distress Gastrointestinal/Abdominal: Positive for: Soft. Negative for: Tenderness Back: Positive for: Normal Inspection. Negative for: Other (sacral decub) Extremity: Positive for: Tenderness, Deformity, Swelling, Other (stiffness in all four extremities; RLE: soft edema extending from knee down to lower leg and foot, ecchymosis to posterior lateral knee as well as posterior calf and lower leg, diffuse tenderness to palpation and pain elicited with any movement of leg). Negative for: Normal ROM Lymphatic: Negative for: Adenopathy Neurologic/Psych: Positive for: Other (obtunded; moans to pain but otherwise nonverbal). Negative for: Oriented - Laboratory Results Result Diagrams: 04/11/18 22:20 04/11/18 23:15 - ECG O2 Sat by Pulse Oximetry: 94 (RA) Pulse Ox Interpretation: Abnormal Interpretation Of Abnormal: hx of asthma, COPD, CHF Medical Decision Making Medical Decision Making: Time: 2144 Initial Impression: fever, right lower extremity swelling and pain DDx includes but is not limited to: knee fx, tib/fib fx, ankle fx, or contusion, UTI, pneumonia, sepsis, dehydration Initial Plan: --Type and screen --VBG --EKG --CMP --Valproic acid --CBC with differential --PT / PTT --CXR --Right knee XR --Normal Saline IV --Tylenol 975mg PO --Blood culture --Urine culture --Accucheck --Catheter insertion --Right ankle XR --Right Tibia/Fibula XR --Influenza swab --Urinalysis --Right LE US duplex Electrolytes and CBC unremarkable CXR no acute findings RIGHT knee displaced distal femur fracture DW Dr Lara who requests Dr Barboza as consult. Admitted to [facility] for sepsis and femur fracture. Scribe Attestation: Documented by Shadia Malloy, acting as a scribe for Keli Metzger MD. Provider Scribe Attestation: All medical record entries made by the Scribe were at my direction and personal ly dictated by me. I have reviewed the chart and agree that the record accurately reflects my personal performance of the history, physical exam, medical decision making, and the department course for this patient. I have also personally directed, reviewed, and agree with the discharge instructions and disposition. Disposition - Clinical Impression Clinical Impression: Femoral distal fracture, Sepsis - Disposition Disposition Time: 22:40 Condition: SERIOUS - Pt Status Changed To: Hospital Disposition Of: Inpatient - Admit Certification Admit to Inpatient:: After my assessment, the patient will require hospitalization for at least two midnights. This is because of the severity of symptoms shown, intensity of services needed, and/or the medical risk in this patient being treated as an outpatient. - POA Present On Arrival: Falls Or Trauma
[2018-04-11 22:24] LABS: BASO % 0.5 % (0.0-2.0); EOS % 0.7 % (0.0-4.0); HEMOGLOBIN 11.3 g/dL (12.0-16.0); LYMPH # 0.9 K/uL (1.0-4.3); LYMPH % 15.9 % (20.0-40.0); MEAN CELL VOLUME 88.1 fl (81.0-99.0); MEAN CORPUSCULAR HEMOGLOBIN 28.3 pg (27.0-31.0); MEAN CORPUSCULAR HGB CONC 32.2 g/dL (33.0-37.0); MEAN PLATELET VOLUME 10.7 fl (7.2-11.7); MONO # 0.7 K/uL (0.0-0.8); MONO % 12.7 % (0.0-10.0); NEUT # 3.8 K/uL (1.8-7.0); NEUT % 70.2 % (50.0-75.0); RBC 3.97 Mil/uL (3.80-5.20); RED CELL DISTRIBUTION WIDTH 14.7 % (11.5-14.5); WHITE BLOOD COUNT 5.4 K/uL (4.8-10.8)
[2018-04-11 22:26] LABS: VENOUS BLOOD GAS BASE EXCESS 8.5 mmol/L (0.0-2.0); VENOUS BLOOD GAS PCO2 43 mmHg (40-60); VENOUS BLOOD GAS PO2 41 mm/Hg (30-55); VENOUS BLOOD PH 7.49 (7.32-7.43)
[2018-04-11 22:30] LABS: INR 1.3; PROTHROMBIN TIME 14.5 Seconds (9.8-13.1)
[2018-04-11 22:32] LABS: PARTIAL THROMBOPLASTIN TIME 25.2 Seconds (25.6-37.1)
[2018-04-11 22:36] LABS: BLOOD UREA NITROGEN 25 mg/dl (7-17); CALCIUM 8.7 mg/dL (8.4-10.2); GFR NON-AFRICAN AMERICAN > 60
[2018-04-11 23:10] LABS: ALBUMIN 3.6 g/dL (3.5-5.0); ALT/SGPT 25 U/L (9-52); AST/SGOT 31 U/L (14-36)
[2018-04-11] MEDS ORDERED: Ciprofloxacin 400mg/200ml D5W 400 MG/200 ML BAG IV STA (23:16)
[2018-04-12 00:16] LABS: SQUAMOUS EPITHIAL 7 /hpf (0-5); URINE BACTERIA OCC (<OCC); URINE BILIRUBIN NEGATIVE (NEGATIVE); URINE BLOOD NEGATIVE (NEGATIVE); URINE CLARITY CLOUDY (Clear); URINE COLOR YELLOW (YELLOW); URINE GLUCOSE (UA) NEG (NEGATIVE); URINE LEUKOCYTE ESTERASE MOD Leu/uL (Negative); URINE PROTEIN 30 mg/dL (NEGATIVE)
[2018-04-12] MEDS ORDERED: Ciprofloxacin 400mg/200ml D5W 400 MG/200 ML BAG IVPB ONE (00:22)
[2018-04-12] MEDS ORDERED: Vancomycin 1 g Inj ONE (01:26)
--- NOTE | 2018-04-12 06:09 | CARD ---
APPROVED REPORT Date of service: 04/12/2018 EKG Measurement Heart [id number] <Conclusion> Normal sinus rhythm Nonspecific T wave abnormality Abnormal ECG
[2018-04-12] MEDS ORDERED: Magnesium Hydroxide Susp 30 ml UD PO PRN (08:01)
--- NOTE | 2018-04-12 08:23 | RAD ---
Date of service: 04/11/2018 PROCEDURE: CHEST RADIOGRAPH, 1 VIEW HISTORY: fever COMPARISON: 07/23/2017 FINDINGS: LUNGS: Current lung volumes still lower limits of normal-it greater than before. Interval discoid atelectasis suggested lateral right costophrenic angle. No dense consolidation noted. Prior endotracheal tube removed. PLEURA: No pneumothorax or pleural fluid seen. CARDIOVASCULAR: There is presence of aortic atherosclerotic calcification on x-ray. Mild cardiomegaly-similar. Pulmonary venous congestion suggested. OSSEOUS STRUCTURES: Bilateral shoulder arthrosis. VISUALIZED UPPER ABDOMEN: Paired kyphoplasty cement in L3 vertebral body this patient with known compression fracture deformities-this cement material is present also on the 05/25/2017 CT study. OTHER FINDINGS: None. IMPRESSION: . Interval right costophrenic angle discoid atelectasis. Cardiomegaly and pulmonary venous congestion. Given the bronchovascular and interstitial lung marking appearance-the possibility of concomitant viral pneumonitis is not excluded. No interval consolidation to suggest focal infiltrate noted
[2018-04-12] MEDS: Nitroglycerin 0.2 mg/hr Top Patch TD SCH (10:28)
[2018-04-12] MEDS: Calcium-Vit D 500 mg-200 Units Tab UD PO SCH (10:34)
[2018-04-12] MEDS: Potassium Chloride 20 mEq/15 ml LIQ UD PO SCH ×2 (10:34→17:08)
--- NOTE | 2018-04-12 10:40 | RAD ---
Date of service: 04/11/2018 PROCEDURE: Right Knee Radiographs. HISTORY: swelling right knee COMPARISON: None. FINDINGS: BONES: Oblique fractures distal right femur extending to the lateral femoral condyle JOINTS: Pretibial and suprapatellar soft tissue swelling. JOINT EFFUSION: Suprapatellar joint effusion likely hemarthrosis. OTHER FINDINGS: None. IMPRESSION: Oblique acute fracture distal right femur
--- NOTE | 2018-04-12 10:42 | RAD ---
Date of service: 04/11/2018 PROCEDURE: Right Ankle Radiographs. HISTORY: swelling right ankle COMPARISON: None available. FINDINGS: BONES: Diffuse osteopenia no fracture. Small calcaneal plantar spur. JOINTS: Normal. No osteoarthritis. Ankle mortise maintained. Talar dome intact SOFT TISSUES: Diffuse soft tissue swelling most prominent laterally. No distal fibular or talar abnormalities. OTHER FINDINGS: None. IMPRESSION: Soft tissue swelling without acute articular or osseous abnormality.
--- NOTE | 2018-04-12 10:54 | US ---
Date of service: 04/11/2018 PROCEDURE: Right lower extremity venous duplex Doppler. HISTORY: leg swelling COMPARISON: None available. TECHNIQUE: Common femoral, superficial femoral, popliteal and posterior tibial veins were evaluated. Flow was assessed with color Doppler, compressibility, assessment of phasic flow and augmentation response. FINDINGS: COMMON FEMORAL VEIN: Unremarkable. SUPERFICIAL FEMORAL VEIN: Unremarkable. POPLITEAL VEIN: Unremarkable. POSTERIOR TIBIAL VEIN: Unremarkable. OTHER FINDINGS: None. IMPRESSION: No evidence of deep venous thrombosis in the right lower extremity. Concordant findings (preliminary report) provided by BHAVIN BLOOM.
--- NOTE | 2018-04-12 10:56 | RAD ---
Date of service: 04/11/2018 PROCEDURE: Radiographs of the right tibia and fibula. HISTORY: swelling bruise right lower COMPARISON: None available TECHNIQUE: Frontal and lateral views obtained. FINDINGS: BONES: Generalized osteopenia limits optimal evaluation. Tricompartmental joint space narrowing is suggested at the level of the knee. Of the study is end however at the tibia and fibula rather than the knee proper. Chondrocalcinosis at the knee is also noted. Inferior calcaneal spurring noted. JOINT SPACES: Narrowed at the knee as above. OTHER FINDINGS: Lateral perimalleolar soft tissue swelling. IMPRESSION: Prominent lateral Alexa malleolar soft tissue swelling. The osteopenia markedly limits optimal evaluation here. No gross fracture is appreciated. However the soft tissue swelling is prominent. Elsewhere vascular calcifications are noted. Knee osteoarthrosis and chondrocalcinosis
--- NOTE | 2018-04-12 11:05 | RAD ---
Date of service: 04/12/2018 PROCEDURE: HISTORY: distal femur fx COMPARISON: None TECHNIQUE: Three views FINDINGS: Generalized osteopenia noted. A diagonal a complete fracture of the distal right femoral diaphyseal metaphyseal junction with posterior displacement of the femoral condylar fracture fragment component. Background right knee osteoarthrosis. No dislocation of the knee seen. Osteopenic changes and right hip osteoarthrosis suggested. Right gluteal injection granulomas and/or heterotopic bone formation also suggested. Extensive stool in the right lower abdominal quadrant also suggested. IMPRESSION: A complete displaced distal right femoral diaphyseal to metaphyseal fracture. No dislocation seen.
--- NOTE | 2018-04-12 11:50 | CP.PCM.CON ---
History of Present Illness - History of Present Illness History of Present Illness: Orthopedic consult: Dr. Barboza Patient is an 82 y/o female with complaints of R knee pain. She is a poor historian due to advanced dementia and lives in nursing facility. History obtained from chart. No witnessed injury or fall as per detention. Complained of severe R knee pain yesterday while being transferred from bed to wheelchair. Received in [facility], distal femur spiral fracture determined on xrays, long leg posterior splint placed. Review of Systems - Review of Systems All systems: reviewed and no additional remarkable complaints except Review of Systems: unable to obtain due to advanced dementia Past Patient History - Infectious Disease Hx of Infectious Diseases: None - Past Medical History & Family History Past Medical History?: Yes Past Family History: Reviewed and not pertinent - Past Social History Smoking Status: Unknown If Ever Smoked - CARDIAC Hx Cardiac Disorders: Yes Hx Congestive Heart Failure: Yes Hx Hypercholesterolemia: Yes Hx Hypertension: Yes - PULMONARY Hx Respiratory Disorders: Yes Hx Asthma: Yes Hx Chronic Obstructive Pulmonary Disease (COPD): Yes - NEUROLOGICAL Hx Neurological Disorder: Yes Hx Dementia: Yes Hx Seizures: Yes - HEENT Hx HEENT Problems: No - RENAL Hx Chronic Kidney Disease: No - ENDOCRINE/METABOLIC Hx Endocrine Disorders: No - HEMATOLOGICAL/ONCOLOGICAL Hx Blood Disorders: Yes Hx AIDS: No Hx Anemia: Yes Hx Human Immunodeficiency Virus (HIV): No - INTEGUMENTARY Hx Dermatological Problems: No - MUSCULOSKELETAL/RHEUMATOLOGICAL Hx Musculoskeletal Disorders: Yes Hx Arthritis: Yes (poly) Hx Falls: No Hx Fractures: Yes (L wrist , comp Fx T Spine) Hx Osteoporosis: Yes - GASTROINTESTINAL Hx Gastrointestinal Disorders: Yes Hx Constipation: Yes - GENITOURINARY/GYNECOLOGICAL Hx Genitourinary Disorders: Yes Hx Incontinence: Yes - PSYCHIATRIC Hx Anxiety: Yes Hx Depression: Yes Hx Substance Use: No - SURGICAL HISTORY Hx Surgeries: Yes Hx Coronary Artery Bypass Graft: Yes - ANESTHESIA Hx Anesthesia: Yes Hx Anesthesia Reactions: No Hx Malignant Hyperthermia: No Meds Allergies/Adverse Reactions: Allergies Allergy/AdvReac Type Severity Reaction Status Date / Time Penicillins Allergy RASH Verified 05/25/17 12:15 - Medications Medications: Current Medications Acetaminophen (Tylenol 325mg Tab) 650 mg PO Q4H PRN PRN Reason: Pain, Mild (1-3) Amlodipine Besylate (Norvasc) 5 mg PO DAILY [facility] Last Admin: 04/12/18 10:31 Dose: 5 mg Atorvastatin Calcium (Lipitor) 40 mg PO HS [facility] Bisacodyl (Dulcolax) 10 mg DE DAILY PRN PRN Reason: Constipation Calcium/Vitamin D (Oyster Shell Calcium/Vitamin D 500 Mg-200 Iu) 1 tab PO DAILY [facility] Last Admin: 04/12/18 10:34 Dose: 1 tab Cyanocobalamin (Vitamin B12 1000 Mcg/Ml Inj) 1,000 mcg IM Q30D [facility] Duloxetine HCl (Cymbalta) 20 mg PO DAILY [facility] Last Admin: 04/12/18 10:33 Dose: 20 mg Ergocalciferol (Drisdol 50,000 Intl Units Cap) 1 cap PO [facility] Fentanyl (Duragesic) 1 patch TD Q72H [facility]; Protocol Gabapentin (Neurontin) 100 mg PO TID [facility] Last Admin: 04/12/18 10:33 Dose: 100 mg Lactulose (Enulose) 20 gm PO BID [facility] Last Admin: 04/12/18 10:37 Dose: 20 gm Lamotrigine (Lamictal) 25 mg PO TID [facility] Last Admin: 04/12/18 10:35 Dose: 25 mg Magnesium Hydroxide (Milk Of Magnesia) 30 ml PO HS PRN PRN Reason: Constipation Meclizine HCl (Antivert) 12.5 mg PO TID [facility] Last Admin: 04/12/18 10:37 Dose: 12.5 mg Nitroglycerin (Nitro-Dur 0.2 Mg/Hr Patch) 1 patch TD DAILY [facility] Last Admin: 04/12/18 10:28 Dose: 1 patch Potassium Chloride (Potassium Chloride Oral Soln) 20 meq PO BID [facility] Last Admin: 04/12/18 10:34 Dose: 20 meq Physical Exam - Constitutional Appears: Well, No Acute Distress - Head Exam Head Exam: ATRAUMATIC, NORMOCEPHALIC - Eye Exam Eye Exam: Normal appearance - ENT Exam ENT Exam: Mucous Membranes Moist - Respiratory Exam Respiratory Exam: NORMAL BREATHING PATTERN - Cardiovascular Exam Cardiovascular Exam: +S1, +S2 - GI/Abdominal Exam GI & Abdominal Exam: Soft. absent: Tenderness - Extremities Exam Additional comments: RLE: posterior long leg splint intact, well padded mild thigh swelling anterior suprapatellar redness at level of fracture unable to assess sensation due to dementia motor intact EHL.FHL pedal pulses intact comps soft NT - Neurological Exam Neurological exam: Alert, Oriented x3 - Psychiatric Exam Psychiatric exam: Normal Affect, Normal Mood - Skin Skin Exam: Normal Color, Warm Results - Vital Signs Recent Vital Signs: Last Vital Signs Temp 98.4 F 04/12/18 07:44 Pulse 86 04/12/18 10:31 Resp 20 04/12/18 07:44 BP 151/80 H 04/12/18 10:31 Pulse Ox 94 L 04/12/18 07:44 - Labs Result Diagrams: 04/11/18 22:20 04/11/18 23:15 Labs: Laboratory Results - last 24 hr 04/11/18 04/11/18 04/11/18 22:20 22:20 22:20 WBC 5.4 RBC 3.97 Hgb 11.3 L Hct 35.0 MCV 88.1 D MCH 28.3 MCHC 32.2 L RDW 14.7 H Plt Count 141 MPV 10.7 Neut % (Auto) 70.2 Lymph % (Auto) 15.9 L [place] % (Auto) 12.7 H Eos % (Auto) 0.7 Baso % (Auto) 0.5 Neut # (Auto) 3.8 Lymph # (Auto) 0.9 L [place] # (Auto) 0.7 Eos # (Auto) 0.0 Baso # (Auto) 0.0 PT 14.5 H INR 1.3 APTT 25.2 L pO2 VBG pH VBG pCO2 VBG HCO3 VBG Total CO2 VBG O2 Sat (Calc) VBG Base Excess Glucose Lactate FiO2 Crit Value Called To Crit Value Called By Crit Value Read Back Blood Gas Notified Time Sodium 142 Potassium 4.5 Chloride 104 Carbon Dioxide 29 Anion Gap 14 BUN 25 H Creatinine 0.4 L Est GFR ( Amer) > 60 Est GFR (Non-Af Amer) > 60 POC Glucose (mg/dL) Random Glucose 150 H Calcium 8.7 Total Bilirubin 1.3 AST 31 ALT 25 Alkaline Phosphatase 45 Total Protein 7.1 Albumin 3.6 Globulin 3.5 Albumin/Globulin Ratio 1.0 Urine Color Urine Clarity Urine pH Ur Specific [place] Urine Protein Urine Glucose (UA) Urine Ketones Urine Blood Urine Nitrate Urine Bilirubin Urine Urobilinogen Ur Leukocyte Esterase Urine RBC (Auto) Urine Microscopic WBC Ur Squamous Epith Cells Urine Bacteria Valproic Acid Influenza Typ A,B (EIA) 04/11/18 04/11/1804/11/18 22:20 22:23 23:15 WBC RBC Hgb Hct MCV MCH MCHC RDW Plt Count MPV Neut % (Auto) Lymph % (Auto) [place] % (Auto) Eos % (Auto) Baso % (Auto) Neut # (Auto) Lymph # (Auto) [place] # (Auto) Eos # (Auto) Baso # (Auto) PT INR APTT pO2 41 VBG pH 7.49 H VBG pCO2 43 VBG HCO3 31.1 VBG Total CO2 34.1 H VBG O2 Sat (Calc) 82.8 H VBG Base Excess 8.5 H Glucose 153 H Lactate 1.8 FiO2 21.0 Crit Value Called To Dr marty perez Crit Value Called By 6075 Crit Value Read Back Y Blood Gas Notified Time 2226 Sodium 179.0 H* Potassium 4.3 Chloride 117.0 H Carbon Dioxide Anion Gap BUN Creatinine Est GFR ( Amer) Est GFR (Non-Af Amer) POC Glucose (mg/dL) Random Glucose Calcium Total Bilirubin AST ALT Alkaline Phosphatase Total Protein Albumin Globulin Albumin/Globulin Ratio Urine Color Urine Clarity Urine pH Ur Specific [place] Urine Protein Urine Glucose (UA) Urine Ketones Urine Blood Urine Nitrate Urine Bilirubin Urine Urobilinogen Ur Leukocyte Esterase Urine RBC (Auto) Urine Microscopic WBC Ur Squamous Epith Cells Urine Bacteria Valproic Acid 27.6 L Influenza Typ A,B (EIA) 04/11/18 04/11/18 04/12/18 23:40 23:55 00:10 WBC RBC Hgb Hct MCV MCH MCHC RDW Plt Count MPV Neut % (Auto) Lymph % (Auto) [place] % (Auto) Eos % (Auto) Baso % (Auto) Neut # (Auto) Lymph # (Auto) [place] # (Auto) Eos # (Auto) Baso # (Auto) PT INR APTT pO2 VBG pH VBG pCO2 VBG HCO3 VBG Total CO2 VBG O2 Sat (Calc) VBG Base Excess Glucose Lactate FiO2 Crit Value Called To Crit Value Called By Crit Value Read Back Blood Gas Notified Time Sodium Potassium Chloride Carbon Dioxide Anion Gap BUN Creatinine Est GFR ( Amer) Est GFR (Non-Af Amer) POC Glucose (mg/dL) 156 H Random Glucose Calcium Total Bilirubin AST ALT Alkaline Phosphatase Total Protein Albumin Globulin Albumin/Globulin Ratio Urine Color Yellow Urine Clarity Cloudy Urine pH 5.0 Ur Specific [place] 1.029 Urine Protein 30 Urine Glucose (UA) Neg Urine Ketones Negative Urine Blood Negative Urine Nitrate Negative Urine Bilirubin Negative Urine Urobilinogen 4.0 H Ur Leukocyte Esterase Mod Urine RBC (Auto) 8 H Urine Microscopic WBC 41 H Ur Squamous Epith Cells 7 H Urine Bacteria Occ H Valproic Acid Influenza Typ A,B (EIA) Negative for flu a/b - Impressions Impression: Accession No. : [id number] Patient Name / ID : LENORA Valverde / [id number] Exam Date : 04/12/2018 09:44:24 ( Approved ) Study Comment : Sex / Age : F / 82Y Creator : corrine rahman Dictator : Marie Lamb V. Dairy Processing Supervisor : Bull Bucker : Marie Lamb V. Approver2 : Report Date : 04/12/2018 10:06:19 My Comment : Date of service: 04/12/2018 PROCEDURE: HISTORY: distal femur fx COMPARISON: None TECHNIQUE: Three views FINDINGS: Generalized osteopenia noted. A diagonal a complete fracture of the distal right femoral diaphyseal metaphyseal junction with posterior displacement of the femoral condylar fracture fragment component. Background right knee osteoarthrosis. No dislocation of the knee seen. Osteopenic changes and right hip osteoarthrosis suggested. Right gluteal injection granulomas and/or heterotopic bone formation also suggested. Extensive stool in the right lower abdominal quadrant also suggested. IMPRESSION: A complete displaced distal right femoral diaphyseal to metaphyseal fracture. No dislocation seen. Accession No. : [id number] Patient Name / ID : LENORA PAGAN N / [id number] Exam Date : 04/11/2018 21:57:31 ( Approved ) Study Comment : Sex / Age : F / 82Y Creator : sylvia marks Dictator : Giorgio Manjarrez MD Dairy Processing Supervisor : Bull Bucker : Giorgio Manjarrez MD Approver2 : Report Date : 04/11/2018 23:04:54 My Comment : Date of service: 04/11/2018 PROCEDURE: Right Knee Radiographs. HISTORY: swelling right knee COMPARISON: None. FINDINGS: BONES: Oblique fractures distal right femur extending to the lateral femoral condyle JOINTS: Pretibial and suprapatellar soft tissue swelling. JOINT EFFUSION: Suprapatellar joint effusion likely hemarthrosis. OTHER FINDINGS: None. IMPRESSION: Oblique acute fracture distal right femur Accession No. : [id number] Patient Name / ID : LENORA PAGAN N / [id number] Exam Date : 04/11/2018 21:57:31 ( Approved ) Study Comment : Sex / Age : F / 82Y Creator : sylvia marks Dictator : Marie Lamb V. Dairy Processing Supervisor : Bull Bucker : Marie Lamb V. Approver2 : Report Date : 04/11/2018 23:04:53 My Comment : Date of service: 04/11/2018 PROCEDURE: Radiographs of the right tibia and fibula. HISTORY: swelling bruise right lower COMPARISON: None available TECHNIQUE: Frontal and lateral views obtained. FINDINGS: BONES: Generalized osteopenia limits optimal evaluation. Tricompartmental joint space narrowing is suggested at the level of the knee. Of the study is end however at the tibia and fibula rather than the knee proper. Chondrocalcinosis at the knee is also noted. Inferior calcaneal spurring noted. JOINT SPACES: Narrowed at the knee as above. OTHER FINDINGS: Lateral perimalleolar soft tissue swelling. IMPRESSION: Prominent lateral Alexa malleolar soft tissue swelling. The osteopenia markedly limits optimal evaluation here. No gross fracture is appreciated. However the soft tissue swelling is prominent. Elsewhere vascular calcifications are noted. Knee osteoarthrosis and chondrocalcinosis Assessment & Plan (1) Closed fracture of right distal femur Assessment and Plan: -Dr. Barboza recommends Right distal femur fx ORIF vs IM nail -Multiple comorbidities, awaiting medical/cardiac clearance -maintain well padded long leg posterior splint -monitor for skin breakdown/tenting at fracture site -strict NWB RLE -CT RLE -above d/w Dr. Barboza in agreement Status: Acute
--- NOTE | 2018-04-12 16:22 | CP.PCM.HP ---
History of Present Illness - History of Present Illness History of Present Illness: CC: R knee pain. 82 y/o F, resident at [facility], Pt with multiple chronic medical conditions including: Advanced Dementia, Osteoporosis, O/A, COPD, HTN, Hx CABG, Seizure[facility] to be evaluated for severe R knee pain, constant, severe intensity 8:10, associated to swelling/redness in the area, with pain radiating to the rest of her R leg, onset DOA with no relief. As per Alf, symptoms were noticed while Pt was being transferred from wheelchair to bed, they denied any fall or injury, EMS was called to bring Pt to hospital. Worsening symptom: Fever, in ER TMAx 100.2 F. Advanced dementia, poor historian. Aggravated factor: Movements, exercise, change positions. No: Abdominal pain, n/v/d, painful urination, CP, SOB, cough, syncope, sick contact. R knee X-Ray: Oblique acute fx distal R Femur. Femur X-Ray: Generalized Osteopenia. Complete displaced distal R femoral diaphyseal, methaphyseal Fx. Tibia/Fibula X-Ray: No Fx, Osteoporosis. Joint narrowing of the R knee, osteoarthrosis and chondocalcinosis Ext U-S: No DVT. CXR: Cardiomegaly, pulmonary venous congestion, viral Pneumonitis not excluded. No interval consolidation to suggest focal infiltrates. Present on Admission - Present on Admission Any Indicators Present on Admission: No Review of Systems - Review of Systems Systems not reviewed;Unavailable: Acuity of Condition, Dementia Past Patient History - Infectious Disease Hx of Infectious Diseases: None - Past Medical History & Family History Past Medical History?: Yes Pertinent Family History: Unknown - Past Social History Smoking Status: Unknown If Ever Smoked Alcohol: None Drugs: Denies Home Situation {Lives}: Alf - CARDIAC Hx Cardiac Disorders: Yes Hx Congestive Heart Failure: Yes Hx Hypercholesterolemia: Yes Hx Hypertension: Yes - PULMONARY Hx Respiratory Disorders: Yes Hx Asthma: Yes Hx Chronic Obstructive Pulmonary Disease (COPD): Yes - NEUROLOGICAL Hx Neurological Disorder: Yes Hx Dementia: Yes Hx Seizures: Yes - HEENT Hx HEENT Problems: No - RENAL Hx Chronic Kidney Disease: No - ENDOCRINE/METABOLIC Hx Endocrine Disorders: No - HEMATOLOGICAL/ONCOLOGICAL Hx Blood Disorders: Yes Hx Anemia: Yes Hx Human Immunodeficiency Virus (HIV): No - INTEGUMENTARY Hx Dermatological Problems: No - MUSCULOSKELETAL/RHEUMATOLOGICAL Hx Musculoskeletal Disorders: Yes Hx Arthritis: Yes (poly) Hx Fractures: Yes (L wrist , comp Fx T Spine) Hx Osteoporosis: Yes - GASTROINTESTINAL Hx Gastrointestinal Disorders: Yes Hx Constipation: Yes - GENITOURINARY/GYNECOLOGICAL Hx Genitourinary Disorders: Yes Hx Incontinence: Yes - PSYCHIATRIC Hx Psychophysiologic Disorder: Yes Hx Anxiety: Yes Hx Depression: Yes - SURGICAL HISTORY Hx Surgeries: Yes Hx Coronary Artery Bypass Graft: Yes - ANESTHESIA Hx Anesthesia: Yes Hx Anesthesia Reactions: No Hx Malignant Hyperthermia: No Meds Allergies/Adverse Reactions: Allergies Allergy/AdvReac Type Severity Reaction Status Date / Time Penicillins Allergy RASH Verified 05/25/17 12:15 Physical Exam - Constitutional Appears: No Acute Distress, Chronically Ill - Head Exam Head Exam: NORMAL INSPECTION - Eye Exam Eye Exam: PERRL - ENT Exam ENT Exam: Normal Exam - Neck Exam Neck exam: Positive for: Normal Inspection - Respiratory Exam Respiratory Exam: Decreased Breath Sounds (at bases) - Cardiovascular Exam Cardiovascular Exam: REGULAR RHYTHM - GI/Abdominal Exam GI & Abdominal Exam: Soft. absent: Distended, Tenderness - Exam Additional comments: [place] Cath - Extremities Exam Additional comments: 2+ non pitting edema RLE, R long leg splint in place. - Neurological Exam Additional comments: Sedated, unable to follows commands, generalized weakness. - Skin Skin Exam: Warm Results - Vital Signs Recent Vital Signs: Last Vital Signs Temp 99.3 F 04/12/18 15:32 Pulse 79 04/12/18 15:32 Resp 18 04/12/18 15:32 BP 127/71 04/12/18 15:32 Pulse Ox 94 L 04/12/18 15:49 reviewed J.PMarquise - Labs Result Diagrams: 04/11/18 22:20 04/11/18 23:15 Labs: Laboratory Results - last 24 hr 04/11/18 04/11/18 04/11/18 22:20 22:20 22:20 WBC 5.4 RBC 3.97 Hgb 11.3 L Hct 35.0 MCV 88.1 D MCH 28.3 MCHC 32.2 L RDW 14.7 H Plt Count 141 MPV 10.7 Neut % (Auto) 70.2 Lymph % (Auto) 15.9 L [place] % (Auto) 12.7 H Eos % (Auto) 0.7 Baso % (Auto) 0.5 Neut # (Auto) 3.8 Lymph # (Auto) 0.9 L [place] # (Auto) 0.7 Eos # (Auto) 0.0 Baso # (Auto) 0.0 PT 14.5 H INR 1.3 APTT 25.2 L pO2 VBG pH VBG pCO2 VBG HCO3 VBG Total CO2 VBG O2 Sat (Calc) VBG Base Excess Glucose Lactate FiO2 Crit Value Called To Crit Value Called By Crit Value Read Back Blood Gas Notified Time Sodium 142 Potassium 4.5 Chloride 104 Carbon Dioxide 29 Anion Gap 14 BUN 25 H Creatinine 0.4 L Est GFR ( Amer) > 60 Est GFR (Non-Af Amer) > 60 POC Glucose (mg/dL) Random Glucose 150 H Calcium 8.7 Total Bilirubin 1.3 AST 31 ALT 25 Alkaline Phosphatase 45 Total Protein 7.1 Albumin 3.6 Globulin 3.5 Albumin/Globulin Ratio 1.0 Urine Color Urine Clarity Urine pH Ur Specific [place] Urine Protein Urine Glucose (UA) Urine Ketones Urine Blood Urine Nitrate Urine Bilirubin Urine Urobilinogen Ur Leukocyte Esterase Urine RBC (Auto) Urine Microscopic WBC Ur Squamous Epith Cells Urine Bacteria Valproic Acid Influenza Typ A,B (EIA) 04/11/18 04/11/18 04/11/18 22:20 22:23 23:15 WBC RBC Hgb Hct MCV MCH MCHC RDW Plt Count MPV Neut % (Auto) Lymph % (Auto) [place] % (Auto) Eos % (Auto) Baso % (Auto) Neut # (Auto) Lymph # (Auto) [place] # (Auto) Eos # (Auto) Baso # (Auto) PT INR APTT pO2 41 VBG pH 7.49 H VBG pCO2 43 VBG HCO3 31.1 VBG Total CO2 34.1 H VBG O2 Sat (Calc) 82.8 H VBG Base Excess 8.5 H Glucose 153 H Lactate 1.8 FiO2 21.0 Crit Value Called To Dr marty perez Crit Value Called By 6075 Crit Value Read Back Y Blood Gas Notified Time 2226 Sodium 179.0 H* Potassium 4.3 Chloride 117.0 H Carbon Dioxide Anion Gap BUN Creatinine Est GFR ( Amer) Est GFR (Non-Af Amer) POC Glucose (mg/dL) Random Glucose Calcium Total Bilirubin AST ALT Alkaline Phosphatase Total Protein Albumin Globulin Albumin/Globulin Ratio Urine Color Urine Clarity Urine pH Ur Specific [place] Urine Protein Urine Glucose (UA) Urine Ketones Urine Blood Urine Nitrate Urine Bilirubin Urine Urobilinogen Ur Leukocyte Esterase Urine RBC (Auto) Urine Microscopic WBC Ur Squamous Epith Cells Urine Bacteria Valproic Acid 27.6 L Influenza Typ A,B (EIA) 04/11/18 04/11/18 04/12/18 23:40 23:55 00:10 WBC RBC Hgb Hct MCV MCH MCHC RDW Plt Count MPV Neut % (Auto) Lymph % (Auto) [place] % (Auto) Eos % (Auto) Baso % (Auto) Neut # (Auto) Lymph # (Auto) [place] # (Auto) Eos # (Auto) Baso # (Auto) PT INR APTT pO2 VBG pH VBG pCO2 VBG HCO3 VBG Total CO2 VBG O2 Sat (Calc) VBG Base Excess Glucose Lactate FiO2 Crit Value Called To Crit Value Called By Crit Value Read Back Blood Gas Notified Time Sodium Potassium Chloride Carbon Dioxide Anion Gap BUN Creatinine Est GFR ( Amer) Est GFR (Non-Af Amer) POC Glucose (mg/dL) 156 H Random Glucose Calcium Total Bilirubin AST ALT Alkaline Phosphatase Total Protein Albumin Globulin Albumin/Globulin Ratio Urine Color Yellow Urine Clarity Cloudy Urine pH 5.0 Ur Specific [place] 1.029 Urine Protein 30 Urine Glucose (UA) Neg Urine Ketones Negative Urine Blood Negative Urine Nitrate Negative Urine Bilirubin Negative Urine Urobilinogen 4.0 H Ur Leukocyte Esterase Mod Urine RBC (Auto) 8 H Urine Microscopic WBC 41 H Ur Squamous Epith Cells 7 H Urine Bacteria Occ H Valproic Acid Influenza Typ A,B (EIA) Negative for flu a/b reviewed J.P. - EKG Data EKG comments: reviewed J.P. - Imaging and Cardiology Chest x-ray Status: Report reviewed by me (J.P.) Venous US Status: Report reviewed by me (J.P.) Additional comment: R knee X-Ray, Femur X-Ray and Tibia/Fibula X-Ray: All reviewed J.P. Assessment & Plan (1) Pathologic fracture of femur Status: Acute Priority: High (2) Right leg pain Status: Acute Priority: High (3) UTI (urinary tract infection) Status: Acute Priority: High (4) Severe dementia Status: Chronic Priority: High (5) HTN (hypertension) Status: Acute Priority: Medium (6) COPD (chronic obstructive pulmonary disease) Status: Chronic Priority: Medium (7) Osteoarthrosis involving multiple sites Status: Chronic Priority: Medium (8) Chronic back pain Status: Chronic Priority: Medium (9) Generalized weakness Status: Chronic Priority: High (10) Constipation Status: Chronic Priority: Medium (11) History of seizure Status: Chronic Priority: Medium - Assessment and Plan (Free Text) Plan: F/O U C-S, Blood C-S, Continue O2 NC, Morphine, Duragesic Path, Lamictal, Neurontin, Calcium/Vit D, Vit 12, Potassium Chl, Norvasc and rest of Tx. OT,PT eval, Cardiology and Orthopedic consult. - Date & Time Date: 04/12/18 Time: 10:00
--- NOTE | 2018-04-12 18:10 | CT ---
Date of service: 04/12/2018 PROCEDURE: CT of the right lower extremity without contrast HISTORY: distal femur fx COMPARISON: Comparison is made to the previous x-ray of the right femur dated 04/12/2018 TECHNIQUE: Axial and reformatted coronal and sagittal CT images of the right hip and femur were obtained without contrast administration. 3D reformatted images were also obtained. Total exam DLP 379.0 FINDINGS: There is acute comminuted and displaced fracture at the distal shaft of the right femur. There is mild angulation at the fracture site with sharp bone agent protruding anteriorly. There is also approximately 2.2 centimeter impaction at the site of the fracture. There is a small right knee joint effusion. No evidence of dislocation at the right knee. There is diffuse soft tissue edema and subcutaneous stranding noted. IMPRESSION: Large spiral comminuted displaced and angulated fracture at the distal shaft of the right femur with anterior and distal displacement of the femoral shaft relative to the femoral condyles.
[2018-04-12] MEDS: Ergocalciferol 50,000 Intl Units Cap PO SCH (18:51)
--- NOTE | 2018-04-12 20:46 | CARD ---
APPROVED REPORT Date of service: 04/12/2018 EKG Measurement Heart [id number] <Conclusion> Normal sinus rhythm with sinus arrhythmia Normal ECG
--- NOTE | 2018-04-12 21:07 | CARD ---
APPROVED REPORT Date of service: 04/12/2018 EXAM: Two-dimensional and M-mode echocardiogram with Doppler and color Doppler. Other Information Quality : GoodRhythm : NSR Technically limited study due to fractured femur INDICATION Pre-Op 2D DIMENSIONS IVSd0.81 (0.7-1.1cm)LVDd3.90 (3.9-5.9cm) LVOT Diameter1.87 (1.8-2.4cm)PWd1.13 (0.7-1.1cm) IVSs0.90 (0.8-1.2cm)LVDs2.46 (2.5-4.0cm) FS (%) 36.9 %PWs1.10 (0.8-1.2cm) M-Mode DIMENSIONS Left Atrium (MM)4.12 (2.5-4.0cm)Aortic Root2.71 (2.2-3.7cm) Aortic Cusp Exc.1.47 (1.5-2.0cm) Aortic Valve AoV Peak Cumxuijc173.7cm/sAoV VTI35.5cmAO Peak GR.14mmHg LVOT Peak Dzupneax80.4cm/Harpreet Mean GR.7mmHgAVA (VMAX)0.69cm2 Mitral Valve MV E Ftklcomn64.2cm/sMV DECEL [id number] A Bcltumrj902.5cm/s MV YDQ77uzP/A ratio0.6MVA (PHT)2.60cm2 TDI Lateral E' Peak V10.35cm/sMedial E' Peak V5.70cm/sE/Lateral E'6.5 E/Medial E'11.8 Tricuspid Valve TR Peak Udclzjjw657if/sRAP STDCFKQM09xfZrEU Peak Gr.9mmHg [id number] LEFT VENTRICLE The left ventricle is normal size. There is normal left ventricular wall thickness. The left ventricular systolic function is normal. The estimated ejection fraction is 60-65% No regional wall motion abnormalities noted.. Transmitral Doppler flow pattern is Grade I-abnormal relaxation pattern. No left ventricle thrombus noted on this study. There is no ventricular septal defect visualized. There is no left ventricular aneurysm. There is no mass noted in the left ventricle. RIGHT VENTRICLE The right ventricle is normal size. There is normal right ventricular wall thickness. The right ventricular systolic function is normal. ATRIA The left atrium is mildly dilated. The right atrium size is normal. The interatrial septum is intact with no evidence for an atrial septal defect. AORTIC VALVE The aortic valve is normal in structure. Mild aortic regurgitation is present. There is no aortic valvular stenosis. There is no aortic valvular vegetation. MITRAL VALVE The mitral valve is normal in structure. There is no evidence of mitral valve prolapse. There is no mitral valve stenosis. There is trace mitral valve regurgitation noted. TRICUSPID VALVE The tricuspid valve is normal in structure. There is trace tricuspid valve regurgitation noted. RVSP is calculated at 15 mm Hg. There is no tricuspid valve prolapse or vegetation. There is no tricuspid valve stenosis. PULMONIC VALVE The pulmonary valve is normal in structure. There is no pulmonic valvular regurgitation. There is no pulmonic valvular stenosis. GREAT VESSELS The aortic root is normal in size. The ascending aorta is normal in size. The pulmonary artery is normal. The IVC is normal in size and collapses >50% with inspiration. PERICARDIAL EFFUSION There is no pericardial effusion. There is no pleural effusion. <Conclusion> The estimated ejection fraction is 60-65% Transmitral Doppler flow pattern is Grade I-abnormal relaxation pattern. The left atrium is mildly dilated. Mild aortic regurgitation is present. There is trace mitral valve regurgitation noted. There is trace tricuspid valve regurgitation noted. RVSP is calculated at 15 mm Hg.
[2018-04-13] MEDS: Calcium-Vit D 500 mg-200 Units Tab UD PO SCH (08:54)
[2018-04-13] MEDS: Nitroglycerin 0.2 mg/hr Top Patch TD SCH (08:54)
[2018-04-13] MEDS: Potassium Chloride 20 mEq/15 ml LIQ UD PO SCH ×2 (08:55→17:01)
--- NOTE | 2018-04-13 09:35 | CP.PCM.PN ---
Subjective - Date & Time of Evaluation Date of Evaluation: 04/13/18 Time of Evaluation: 08:00 - Subjective Subjective: Patient seen and examined at bedside comfortable. Poor historian. No complaints of pain. No acute events overnight. Objective - Vital Signs/Intake and Output Vital Signs (last 24 hours): Temp Pulse Resp BP Pulse Ox 98.9 F 81 18 112/67 95 04/13/18 08:28 04/13/18 08:54 04/13/18 08:28 04/13/18 08:54 04/13/18 08:28 - Medications Medications: Current Medications Acetaminophen (Tylenol 325mg Tab) 650 mg PO Q4H PRN PRN Reason: Pain, Mild (1-3) Amlodipine Besylate (Norvasc) 5 mg PO DAILY [facility] Last Admin: 04/13/18 08:52 Dose: 5 mg Atorvastatin Calcium (Lipitor) 40 mg PO HS [facility] Last Admin: 04/12/18 23:05 Dose: 40 mg Bisacodyl (Dulcolax) 10 mg [place] DAILY PRN PRN Reason: Constipation Calcium/Vitamin D (Oyster Shell Calcium/Vitamin D 500 Mg-200 Iu) 1 tab PO DAILY [facility] Last Admin: 04/13/18 08:54 Dose: 1 tab Cyanocobalamin (Vitamin B12 1000 Mcg/Ml Inj) 1,000 mcg IM Q30D [facility] Duloxetine HCl (Cymbalta) 20 mg PO DAILY [facility] Last Admin: 04/13/18 08:54 Dose: 20 mg Ergocalciferol (Drisdol 50,000 Intl Units Cap) 1 cap PO WE [facility] Last Admin: 04/12/18 18:51 Dose: 1 cap Fentanyl (Duragesic) 1 patch TD Q72H [facility]; Protocol Last Admin: 04/12/18 12:05 Dose: 1 patch Gabapentin (Neurontin) 100 mg PO TID [facility] Last Admin: 04/13/18 08:52 Dose: 100 mg Lactulose (Enulose) 20 gm PO BID [facility] Last Admin: 04/13/18 08:55 Dose: 20 gm Lamotrigine (Lamictal) 25 mg PO TID [facility] Last Admin: 04/13/18 08:53 Dose: 25 mg Magnesium Hydroxide (Milk Of Magnesia) 30 ml PO HS PRN PRN Reason: Constipation Meclizine HCl (Antivert) 12.5 mg PO TID [facility] Last Admin: 04/13/18 08:53 Dose: 12.5 mg Morphine Sulfate (Morphine) 2 mg IVP Q6 PRN PRN Reason: Pain, moderate (4-7) Nitroglycerin (Nitro-Dur 0.2 Mg/Hr Patch) 1 patch TD DAILY [facility] Last Admin: 04/13/18 08:54 Dose: 1 patch Potassium Chloride (Potassium Chloride Oral Soln) 20 meq PO BID [facility] Last Admin: 04/13/18 08:55 Dose: 20 meq - Labs Labs: 04/11/18 22:20 04/11/18 23:15 PT 14.5 Seconds (9.8-13.1) H 04/11/18 22:20 INR 1.3 04/11/18 22:20 APTT 25.2 Seconds (25.6-37.1) L 04/11/18 22:20 - Extremities Exam Additional comments: RLE: posterior long leg splint intact, well padded mild thigh swelling anterior suprapatellar redness improved at level of fracture unable to assess sensation due to dementia motor intact EHL.FHL pedal pulses intact comps soft NT - Additional Findings Additional findings: Accession No. : [id number] Patient Name / ID : LENORA PAGAN N / [id number] Exam Date : 04/12/2018 16:31:37 ( Approved ) Study Comment : Sex / Age : F / 82Y Creator : Jose Alejandro Gaston MD Dictator : Jose Alejandro Gaston MD Slot Shift Manager : Paint And Table Edger : Jose Alejandro Gaston MD Approver2 : Report Date : 04/12/2018 18:04:37 My Comment : Date of service: 04/12/2018 PROCEDURE: CT of the right lower extremity without contrast HISTORY: distal femur fx COMPARISON: Comparison is made to the previous x-ray of the right femur dated 04/12/2018 TECHNIQUE: Axial and reformatted coronal and sagittal CT images of the right hip and femur were obtained without contrast administration. 3D reformatted images were also obtained. Total exam DLP 379.0 FINDINGS: There is acute comminuted and displaced fracture at the distal shaft of the right femur. There is mild angulation at the fracture site with sharp bone agent protruding anteriorly. There is also approximately 2.2 centimeter impaction at the site of the fracture. There is a small right knee joint effusion. No evidence of dislocation at the right knee. There is diffuse soft tissue edema and subcutaneous stranding noted. IMPRESSION: Large spiral comminuted displaced and angulated fracture at the distal shaft of the right femur with anterior and distal displacement of the femoral shaft relative to the femoral condyles. Assessment and Plan (1) Closed fracture of right distal femur Assessment & Plan: -Plan for right distal femur fx ORIF vs IM nail once medically/cardiac cleared -maintain well padded long leg posterior splint -monitor for skin breakdown/tenting at fracture site -strict NWB RLE -above d/w Dr. Barboza in agreement Status: Acute
--- NOTE | 2018-04-13 09:50 | CP.PCM.CON ---
History of Present Illness - History of Present Illness History of Present Illness: Consultation for evaluation of preoperative cardiovascular risk stratification HPI: 82-year-old female with past medical history significant for hypertension dyslipidemia arthritis asthma anxiety depression osteoporosis sei zure disorder advanced dementia admitted from [facility] with complains of right lower extremity pain and discomfort was noted to have fracture of the femur. I had last evaluated her in June 2017 for preoperative cardiovascular risk stratification at that time she had prior lead gone undergone a nuclear stress test back in May which showed low risk for having cardiovascular disease at baseline she is unable to provide any meaningful history secondary to advanced dementia he had a mild small apical defect of nonclinical significance. An EKG done showed normal sinus rhythm left axis deviation LVH. Her past medical history significant for dyslipidemia hypertension arthritis asthma osteoporosis dementia she had undergone a left open reduction internal fraction in May and kyphoplasty of L3 as well as a tubal ligation in 2014. 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 Review of Systems - Review of Systems Systems not reviewed;Unavailable: Acuity of Condition - Constitutional Constitutional: As Per HPI - EENT Eyes: As Per HPI Ears: As Per HPI Nose/Mouth/Throat: As Per HPI - Breasts Breasts: As Per HPI - Cardiovascular Cardiovascular: As Per HPI - Respiratory Respiratory: As Per HPI - Gastrointestinal Gastrointestinal: As Per HPI - Genitourinary Genitourinary: As Per HPI - Reproductive: Female Reproductive:Female: As Per HPI Past Patient History - Infectious Disease Hx of Infectious Diseases: None - Past Medical History & Family History Past Medical History?: Yes Past Family History: Reviewed and not pertinent - Past Social History Smoking Status: Unknown If Ever Smoked - CARDIAC Hx Cardiac Disorders: Yes Hx Congestive Heart Failure: Yes Hx Hypercholesterolemia: Yes Hx Hypertension: Yes - PULMONARY Hx Respiratory Disorders: Yes Hx Asthma: Yes Hx Chronic Obstructive Pulmonary Disease (COPD): Yes - NEUROLOGICAL Hx Neurological Disorder: Yes Hx Dementia: Yes Hx Seizures: Yes - HEENT Hx HEENT Problems: No - RENAL Hx Chronic Kidney Disease: No - ENDOCRINE/METABOLIC Hx Endocrine Disorders: No - HEMATOLOGICAL/ONCOLOGICAL Hx Blood Disorders: Yes Hx AIDS: No Hx Anemia: Yes Hx Human Immunodeficiency Virus (HIV): No - INTEGUMENTARY Hx Dermatological Problems: No - MUSCULOSKELETAL/RHEUMATOLOGICAL Hx Musculoskeletal Disorders: Yes Hx Arthritis: Yes (poly) Hx Falls: No Hx Fractures: Yes (L wrist , comp Fx T Spine) Hx Osteoporosis: Yes - GASTROINTESTINAL Hx Gastrointestinal Disorders: Yes Hx Constipation: Yes - GENITOURINARY/GYNECOLOGICAL Hx Genitourinary Disorders: Yes Hx Incontinence: Yes - PSYCHIATRIC Hx Anxiety: Yes Hx Depression: Yes Hx Substance Use: No - SURGICAL HISTORY Hx Surgeries: Yes Hx Coronary Artery Bypass Graft: Yes - ANESTHESIA Hx Anesthesia: Yes Hx Anesthesia Reactions: No Hx Malignant Hyperthermia: No Meds Allergies/Adverse Reactions: Allergies Allergy/AdvReac Type Severity Reaction Status Date / Time Penicillins Allergy RASH Verified 05/25/17 12:15 - Medications Medications: Current Medications Acetaminophen (Tylenol 325mg Tab) 650 mg PO Q4H PRN PRN Reason: Pain, Mild (1-3) Amlodipine Besylate (Norvasc) 5 mg PO DAILY [facility] Last Admin: 04/13/18 08:52 Dose: 5 mg Atorvastatin Calcium (Lipitor) 40 mg PO HS [facility] Last Admin: 04/12/18 23:05 Dose: 40 mg Bisacodyl (Dulcolax) 10 mg [place] DAILY PRN PRN Reason: Constipation Calcium/Vitamin D (Oyster Shell Calcium/Vitamin D 500 Mg-200 Iu) 1 tab PO DAILY [facility] Last Admin: 04/13/18 08:54 Dose: 1 tab Cyanocobalamin (Vitamin B12 1000 Mcg/Ml Inj) 1,000 mcg IM Q30D [facility]S [facility] Duloxetine HCl (Cymbalta) 20 mg PO DAILY [facility] Last Admin: 04/13/18 08:54 Dose: 20 mg Ergocalciferol (Drisdol 50,000 Intl Units Cap) 1 cap PO WE [facility] Last Admin: 04/12/18 18:51 Dose: 1 cap Fentanyl (Duragesic) 1 patch TD Q72H [facility]; Protocol Last Admin: 04/12/18 12:05 Dose: 1 patch Gabapentin (Neurontin) 100 mg PO TID [facility] Last Admin: 04/13/18 08:52 Dose: 100 mg Lactulose (Enulose) 20 gm PO BID [facility] Last Admin: 04/13/18 08:55 Dose: 20 gm Lamotrigine (Lamictal) 25 mg PO TID [facility] Last Admin: 04/13/18 08:53 Dose: 25 mg Magnesium Hydroxide (Milk Of Magnesia) 30 ml PO HS PRN PRN Reason: Constipation Meclizine HCl (Antivert) 12.5 mg PO TID [facility] Last Admin: 04/13/18 08:53 Dose: 12.5 mg Morphine Sulfate (Morphine) 2 mg IVP Q6 PRN PRN Reason: Pain, moderate (4-7) Nitroglycerin (Nitro-Dur 0.2 Mg/Hr Patch) 1 patch TD DAILY [facility] Last Admin: 04/13/18 08:54 Dose: 1 patch Potassium Chloride (Potassium Chloride Oral Soln) 20 meq PO BID [facility] Last Admin: 04/13/18 08:55 Dose: 20 meq Results - Vital Signs Recent Vital Signs: Last Vital Signs Temp 98.9 F 04/13/18 08:28 Pulse 81 04/13/18 08:54 Resp 18 04/13/18 08:28 BP 112/67 04/13/18 08:54 Pulse Ox 95 04/13/18 08:28 - Labs Result Diagrams: 04/11/18 22:20 04/11/18 23:15 Labs: Laboratory Results - last 24 hr 04/13/18 05:55 Blood Type O POSITIVE Antibody Screen Negative BBK History Checked Patient has bt Assessment & Plan (1) Preop cardiovascular exam Assessment and Plan: As per ACC/AHA guideline she can proceed with surgical correction of her femur fx with intermediate risk for perioperative cardiac event she had undergone a stress test in 05/19 and will require no further testing at this time cont pt on bb , statins , asa Status: Acute (2) Closed fracture of right distal femur Status: Acute (3) Severe dementia Status: Chronic Priority: High (4) HTN (hypertension) Status: Acute Priority: Medium
[2018-04-13 12:00] LABS: INR 1.2; PROTHROMBIN TIME 13.8 Seconds (9.8-13.1)
[2018-04-13 12:03] LABS: PARTIAL THROMBOPLASTIN TIME 27.5 Seconds (25.6-37.1)
--- NOTE | 2018-04-13 15:09 | CP.PCM.PN ---
Subjective - Date & Time of Evaluation Date of Evaluation: 04/13/18 Time of Evaluation: 14:50 - Subjective Subjective: I D NOTE HAS POSITIVE BLOOD CULTURE ,PROBABLY STAPH BUT AWAIT IDENTIFICATION ECHOCARDIOGRAM HAS BEEN DONE,AWAIT READING CONTINUE VANCOMYCIN WE AWAIT FOLLOW UP BLOOD CULTURES Objective - Vital Signs/Intake and Output Vital Signs (last 24 hours): Temp Pulse Resp BP Pulse Ox 98.9 F 81 18 112/67 95 04/13/18 08:28 04/13/18 08:54 04/13/18 08:28 04/13/18 08:54 04/13/18 08:28 - Medications Medications: Current Medications Acetaminophen (Tylenol 325mg Tab) 650 mg PO Q4H PRN PRN Reason: Pain, Mild (1-3) Amlodipine Besylate (Norvasc) 5 mg PO DAILY [facility] Last Admin: 04/13/18 08:52 Dose: 5 mg Atorvastatin Calcium (Lipitor) 40 mg PO HS [facility] Last Admin: 04/12/18 23:05 Dose: 40 mg Bisacodyl (Dulcolax) 10 mg [place] DAILY PRN PRN Reason: Constipation Calcium/Vitamin D (Oyster Shell Calcium/Vitamin D 500 Mg-200 Iu) 1 tab PO DAILY [facility] Last Admin: 04/13/18 08:54 Dose: 1 tab Cyanocobalamin (Vitamin B12 1000 Mcg/Ml Inj) 1,000 mcg IM Q30D [facility] Duloxetine HCl (Cymbalta) 20 mg PO DAILY [facility] Last Admin: 04/13/18 08:54 Dose: 20 mg Ergocalciferol (Drisdol 50,000 Intl Units Cap) 1 cap PO WE [facility] Last Admin: 04/12/18 18:51 Dose: 1 cap Fentanyl (Duragesic) 1 patch TD Q72H [facility]; Protocol Last Admin: 04/12/18 12:05 Dose: 1 patch Gabapentin (Neurontin) 100 mg PO TID [facility] Last Admin: 04/13/18 12:19 Dose: 100 mg Vancomycin HCl 1 gm/ Sodium (Chloride) 250 mls @ 166.667 mls/hr IVPB DAILY [facility]; Protocol Last Admin: 04/13/18 12:20 Dose: 166.667 mls/hr Lactulose (Enulose) 20 gm PO BID [facility] Last Admin: 04/13/18 08:55 Dose: 20 gm Lamotrigine (Lamictal) 25 mg PO TID [facility] Last Admin: 04/13/18 12:19 Dose: 25 mg Magnesium Hydroxide (Milk Of Magnesia) 30 ml PO HS PRN PRN Reason: Constipation Meclizine HCl (Antivert) 12.5 mg PO TID [facility] Last Admin: 04/13/18 12:19 Dose: 12.5 mg Morphine Sulfate (Morphine) 2 mg IVP Q6 PRN PRN Reason: Pain, moderate (4-7) Nitroglycerin (Nitro-Dur 0.2 Mg/Hr Patch) 1 patch TD DAILY [facility] Last Admin: 04/13/18 08:54 Dose: 1 patch Potassium Chloride (Potassium Chloride Oral Soln) 20 meq PO BID [facility] Last Admin: 04/13/18 08:55 Dose: 20 meq - Labs Labs: 04/11/18 22:20 04/11/18 23:15 PT 13.8 Seconds (9.8-13.1) H 04/13/18 11:00 INR 1.2 04/13/18 11:00 APTT 27.5 Seconds (25.6-37.1) 04/13/18 11:00
--- NOTE | 2018-04-13 18:57 | CP.PCM.PN ---
Subjective - Date & Time of Evaluation Date of Evaluation: 04/13/18 Time of Evaluation: 10:50 - Subjective Subjective: F/U Femur Fx. awake, mumbles words, pain to touch RLE Objective - Vital Signs/Intake and Output Vital Signs (last 24 hours): Temp Pulse Resp BP Pulse Ox 98.4 F 97 H 16 109/68 95 04/13/18 15:40 04/13/18 15:40 04/13/18 15:40 04/13/18 15:40 04/13/18 15:40 Intake and Output: 04/13/18 04/13/18 06:59 18:59 Intake Total 970 Balance 970 - Medications Medications: Current Medications Acetaminophen (Tylenol 325mg Tab) 650 mg PO Q4H PRN PRN Reason: Pain, Mild (1-3) Amlodipine Besylate (Norvasc) 5 mg PO DAILY [facility] Last Admin: 04/13/18 08:52 Dose: 5 mg Atorvastatin Calcium (Lipitor) 40 mg PO HS [facility] Last Admin: 04/12/18 23:05 Dose: 40 mg Bisacodyl (Dulcolax) 10 mg [place] DAILY PRN PRN Reason: Constipation Calcium/Vitamin D (Oyster Shell Calcium/Vitamin D 500 Mg-200 Iu) 1 tab PO DAILY [facility] Last Admin: 04/13/18 08:54 Dose: 1 tab Cyanocobalamin (Vitamin B12 1000 Mcg/Ml Inj) 1,000 mcg IM Q30D [facility] Duloxetine HCl (Cymbalta) 20 mg PO DAILY [facility] Last Admin: 04/13/18 08:54 Dose: 20 mg Ergocalciferol (Drisdol 50,000 Intl Units Cap) 1 cap PO WE [facility] Last Admin: 04/12/18 18:51 Dose: 1 cap Fentanyl (Duragesic) 1 patch TD Q72H [facility]; Protocol Last Admin: 04/12/18 12:05 Dose: 1 patch Gabapentin (Neurontin) 100 mg PO TID [facility] Last Admin: 04/13/18 17:00 Dose: 100 mg Vancomycin HCl 1 gm/ Sodium (Chloride) 250 mls @ 166.667 mls/hr IVPB DAILY [facility]; Protocol Last Admin: 04/13/18 12:20 Dose: 166.667 mls/hr Lactulose (Enulose) 20 gm PO BID [facility] Last Admin: 04/13/18 17:00 Dose: 20 gm Lamotrigine (Lamictal) 25 mg PO TID [facility] Last Admin: 04/13/18 17:00 Dose: 25 mg Magnesium Hydroxide (Milk Of Magnesia) 30 ml PO HS PRN PRN Reason: Constipation Meclizine HCl (Antivert) 12.5 mg PO TID [facility] Last Admin: 04/13/18 17:03 Dose: 12.5 mg Morphine Sulfate (Morphine) 2 mg IVP Q6 PRN PRN Reason: Pain, moderate (4-7) Last Admin: 04/13/18 17:15 Dose: 2 mg Nitroglycerin (Nitro-Dur 0.2 Mg/Hr Patch) 1 patch TD DAILY [facility] Last Admin: 04/13/18 08:54 Dose: 1 patch Potassium Chloride (Potassium Chloride Oral Soln) 20 meq PO BID [facility] Last Admin: 04/13/18 17:01 Dose: 20 meq - Labs Labs: 04/11/18 22:20 04/11/18 23:15 PT 13.8 Seconds (9.8-13.1) H 04/13/18 11:00 INR 1.2 04/13/18 11:00 APTT 27.5 Seconds (25.6-37.1) 04/13/18 11:00 - Constitutional Appears: No Acute Distress, Chronically Ill - Head Exam Head Exam: NORMAL INSPECTION - Eye Exam Eye Exam: PERRL - ENT Exam ENT Exam: Normal Exam - Neck Exam Neck Exam: Normal Inspection - Respiratory Exam Respiratory Exam: Decreased Breath Sounds (at bases) - Cardiovascular Exam Cardiovascular Exam: REGULAR RHYTHM - GI/Abdominal Exam GI & Abdominal Exam: Soft. absent: Distended, Tenderness - Extremities Exam Additional comments: 2+ non pitting edema RLE. Splint and mili wrap on R leg. - Neurological Exam Neurological Exam: Awake Additional comments: Confused, forgetful, follows simple commands, generalized weakness. - Skin Skin Exam: Warm Assessment and Plan (1) Pathologic fracture of femur Status: Acute (2) Right leg pain Status: Acute (3) UTI (urinary tract infection) Status: Acute (4) Severe dementia Status: Chronic (5) HTN (hypertension) Status: Acute (6) COPD (chronic obstructive pulmonary disease) Status: Chronic (7) Osteoarthrosis involving multiple sites Status: Chronic (8) Chronic back pain Status: Chronic (9) Generalized weakness Status: Chronic (10) Constipation Status: Chronic (11) History of seizure Status: Chronic - Assessment and Plan (Free Text) Plan: one blood C-S G (+) cocci, continue Vanco,f/u B C-S Bacterial identification, ECHO LVEF 60-65% no vegetation, continue Duragesic, Lamical and rest of treatment, Cardiac cleared for Surgery intermediate risk, ID f/u appreciated
[2018-04-14] MEDS: Metoprolol Succinate 25 mg XL Tab PO SCH (09:50)
[2018-04-14] MEDS: Calcium-Vit D 500 mg-200 Units Tab UD PO SCH (09:51)
[2018-04-14] MEDS: Potassium Chloride 20 mEq/15 ml LIQ UD PO SCH ×2 (09:51→16:38)
[2018-04-14] MEDS: Nitroglycerin 0.2 mg/hr Top Patch TD SCH (09:52)
[2018-04-14 10:41] LABS: HEMOGLOBIN 10.2 g/dL (12.0-16.0); MEAN CORPUSCULAR HEMOGLOBIN 29.2 pg (27.0-31.0); MEAN CORPUSCULAR HGB CONC 33.2 g/dL (33.0-37.0); RBC 3.48 Mil/uL (3.80-5.20); RED CELL DISTRIBUTION WIDTH 14.3 % (11.5-14.5); WHITE BLOOD COUNT 4.9 K/uL (4.8-10.8)
[2018-04-14 11:19] LABS: BLOOD UREA NITROGEN 17 mg/dl (7-17); CALCIUM 8.8 mg/dL (8.4-10.2); GFR NON-AFRICAN AMERICAN > 60
--- NOTE | 2018-04-14 11:39 | CP.PCM.PN ---
Subjective - Date & Time of Evaluation Date of Evaluation: 04/14/18 Time of Evaluation: 15:22 - Subjective Subjective: Patient opens eyes and moves toes. Objective - Vital Signs/Intake and Output Vital Signs (last 24 hours): Temp Pulse Resp BP Pulse Ox 98.2 F 84 18 115/62 96 04/14/18 05:14 04/14/18 05:14 04/14/18 05:14 04/14/18 05:14 04/14/18 05:14 Intake and Output: 04/14/18 04/14/18 06:59 18:59 Output Total 200 Balance -200 - Medications Medications: Current Medications Acetaminophen (Tylenol 325mg Tab) 650 mg PO Q4H PRN PRN Reason: Pain, Mild (1-3) Amlodipine Besylate (Norvasc) 5 mg PO DAILY [facility] Last Admin: 04/14/18 09:51 Dose: 5 mg Aspirin (Aspirin Chewable) 81 mg PO DAILY [facility] Last Admin: 04/14/18 09:50 Dose: 81 mg Atorvastatin Calcium (Lipitor) 40 mg PO HS [facility] Last Admin: 04/13/18 21:09 Dose: 40 mg Bisacodyl (Dulcolax) 10 mg [place] DAILY PRN PRN Reason: Constipation Calcium/Vitamin D (Oyster Shell Calcium/Vitamin D 500 Mg-200 Iu) 1 tab PO DAILY [facility] Last Admin: 04/14/18 09:51 Dose: 1 tab Cyanocobalamin (Vitamin B12 1000 Mcg/Ml Inj) 1,000 mcg IM Q30D [facility] Duloxetine HCl (Cymbalta) 20 mg PO DAILY [facility] Last Admin: 04/14/18 09:50 Dose: 20 mg Ergocalciferol (Drisdol 50,000 Intl Units Cap) 1 cap PO WE [facility] Last Admin: 04/12/18 18:51 Dose: 1 cap Fentanyl (Duragesic) 1 patch TD Q72H [facility]; Protocol Last Admin: 04/12/18 12:05 Dose: 1 patch Gabapentin (Neurontin) 100 mg PO TID [facility] Last Admin: 04/14/18 09:50 Dose: 100 mg Vancomycin HCl 1 gm/ Sodium (Chloride) 250 mls @ 166.667 mls/hr IVPB DAILY [facility]; Protocol Last Admin: 04/14/18 10:49 Dose: 166.667 mls/hr Lactulose (Enulose) 20 gm PO BID [facility] Last Admin: 04/14/18 09:50 Dose: 20 gm Lamotrigine (Lamictal) 25 mg PO TID [facility] Last Admin: 04/14/18 09:50 Dose: 25 mg Magnesium Hydroxide (Milk Of Magnesia) 30 ml PO HS PRN PRN Reason: Constipation Meclizine HCl (Antivert) 12.5 mg PO TID [facility] Last Admin: 04/14/18 09:52 Dose: 12.5 mg Metoprolol Succinate (Toprol Xl) 25 mg PO DAILY [facility] Last Admin: 04/14/18 09:50 Dose: 25 mg Morphine Sulfate (Morphine) 2 mg IVP Q6 PRN PRN Reason: Pain, moderate (4-7) Last Admin: 04/13/18 17:15 Dose: 2 mg Nitroglycerin (Nitro-Dur 0.2 Mg/Hr Patch) 1 patch TD DAILY [facility] Last Admin: 04/14/18 09:52 Dose: 1 patch Potassium Chloride (Potassium Chloride Oral Soln) 20 meq PO BID [facility] Last Admin: 04/13/18 17:01 Dose: 20 meq - Labs Labs: 04/14/18 10:15 04/14/18 10:15 PT 13.8 Seconds (9.8-13.1) H 04/13/18 11:00 INR 1.2 04/13/18 11:00 APTT 27.5 Seconds (25.6-37.1) 04/13/18 11:00 - Extremities Exam Additional comments: RLE splint intact, +ROM toes, +DP/PT pulses Assessment and Plan (1) Closed fracture of right distal femur Assessment & Plan: 1 set +blood cx, coag neg staph cardiac intermed risk awaiting clearance Dr. Larkin prior to any orthopedic intervention/implantation splint VTE proph d/w Dr. miranda, agrees with above Status: Acute
--- NOTE | 2018-04-14 13:49 | PQF ---
PROVIDER RESPONSE TEXT: CHF Chronic diastolic REVIEWER QUERY TEXT: CHF Acuity and Type Hx. of Congestive Heart Failure is documented in the Medical Record. Please document the type and acu ity (includes probable or suspected) if known : versus No CHF: history only and not chronic Such as: Type: -- Systolic -- Diastolic -- Combined -- Other, please specify Acuity: -- Acute -- Chronic -- Acute on chronic -- Other, please specify Echo; Conclusion> The estimated ejection fraction is 60-65% Transmitral Doppler flow pattern is Gra de I-abnormal relaxation pattern. The left atrium is mildly dilated. Mild aortic regurgitation is pr esent. There is trace mitral valve regurgitation noted. There is trace tricuspid valve regurgitation noted. RVSP is calculated at 15 mm Hg. 04/12: CXR: Interval right costophrenic angle discoid atelectasis. Cardiomegaly and pulmonary venous congestion. Given the bronchovascular and interstitial lung marking appearance-the possibility of c oncomitant viral pneumonitis is not excluded. No interval consolidation to suggest focal infiltrate noted ER: PE: Respiratory: Positive for: Rales (in bases of bilateral lung figueroa), Other (upper lung field s cleared to auscultation). RLE: soft edema extending from knee down to lower leg and foot H and P: includes a hx. of CHF - Nitroglycerin patch The patient's Clinical Indicators include: -- Query created by: Maxine Licea on 04/13/2018 1:15 PM Electronically signed by: Sj Lara MD 04/14/2018 1:46 PM
--- NOTE | 2018-04-14 14:17 | CP.PCM.PN ---
Subjective - Date & Time of Evaluation Date of Evaluation: 04/14/18 Time of Evaluation: 10:40 - Subjective Subjective: F/U Fx femur awake, mumbles words Objective - Vital Signs/Intake and Output Vital Signs (last 24 hours): Temp Pulse Resp BP Pulse Ox 98.2 F 84 18 115/62 96 04/14/18 05:14 04/14/18 05:14 04/14/18 05:14 04/14/18 05:14 04/14/18 05:14 Intake and Output: 04/14/18 04/14/18 06:59 18:59 Output Total 200 Balance -200 - Medications Medications: Current Medications Acetaminophen (Tylenol 325mg Tab) 650 mg PO Q4H PRN PRN Reason: Pain, Mild (1-3) Amlodipine Besylate (Norvasc) 5 mg PO DAILY [facility] Last Admin: 04/14/18 09:51 Dose: 5 mg Aspirin (Aspirin Chewable) 81 mg PO DAILY [facility] Last Admin: 04/14/18 09:50 Dose: 81 mg Atorvastatin Calcium (Lipitor) 40 mg PO HS [facility] Last Admin: 04/13/18 21:09 Dose: 40 mg Bisacodyl (Dulcolax) 10 mg [place] DAILY PRN PRN Reason: Constipation Calcium/Vitamin D (Oyster Shell Calcium/Vitamin D 500 Mg-200 Iu) 1 tab PO DAILY [facility] Last Admin: 04/14/18 09:51 Dose: 1 tab Cyanocobalamin (Vitamin B12 1000 Mcg/Ml Inj) 1,000 mcg IM Q30D [facility] Duloxetine HCl (Cymbalta) 20 mg PO DAILY [facility] Last Admin: 04/14/18 09:50 Dose: 20 mg Ergocalciferol (Drisdol 50,000 Intl Units Cap) 1 cap PO WE [facility] Last Admin: 04/12/18 18:51 Dose: 1 cap Fentanyl (Duragesic) 1 patch TD Q72H [facility]; Protocol Last Admin: 04/12/18 12:05 Dose: 1 patch Gabapentin (Neurontin) 100 mg PO TID [facility] Last Admin: 04/14/18 12:12 Dose: 100 mg Vancomycin HCl 1 gm/ Sodium (Chloride) 250 mls @ 166.667 mls/hr IVPB DAILY [facility]; Protocol Last Admin: 04/14/18 10:49 Dose: 166.667 mls/hr Lactulose (Enulose) 20 gm PO BID [facility] Last Admin: 04/14/18 09:50 Dose: 20 gm Lamotrigine (Lamictal) 25 mg PO TID [facility] Last Admin: 04/14/18 12:11 Dose: 25 mg Magnesium Hydroxide (Milk Of Magnesia) 30 ml PO HS PRN PRN Reason: Constipation Meclizine HCl (Antivert) 12.5 mg PO TID [facility] Last Admin: 04/14/18 12:12 Dose: 12.5 mg Metoprolol Succinate (Toprol Xl) 25 mg PO DAILY [facility] Last Admin: 04/14/18 09:50 Dose: 25 mg Morphine Sulfate (Morphine) 2 mg IVP Q6 PRN PRN Reason: Pain, moderate (4-7) Last Admin: 04/13/18 17:15 Dose: 2 mg Nitroglycerin (Nitro-Dur 0.2 Mg/Hr Patch) 1 patch TD DAILY [facility] Last Admin: 04/14/18 09:52 Dose: 1 patch Potassium Chloride (Potassium Chloride Oral Soln) 20 meq PO BID [facility] Last Admin: 04/14/18 09:51 Dose: 20 meq - Labs Labs: 04/14/18 10:15 04/14/18 10:15 PT 13.8 Seconds (9.8-13.1) H 04/13/18 11:00 INR 1.2 04/13/18 11:00 APTT 27.5 Seconds (25.6-37.1) 04/13/18 11:00 - Constitutional Appears: No Acute Distress, Chronically Ill - Head Exam Head Exam: NORMAL INSPECTION - Eye Exam Eye Exam: PERRL - ENT Exam ENT Exam: Normal Exam - Neck Exam Neck Exam: Normal Inspection - Respiratory Exam Respiratory Exam: Decreased Breath Sounds (at bases) - Cardiovascular Exam Cardiovascular Exam: REGULAR RHYTHM - GI/Abdominal Exam GI & Abdominal Exam: Soft, Normal Bowel Sounds - Exam Additional comments: [place] Cath - Extremities Exam Additional comments: Edema RLE, splint in place. - Neurological Exam Neurological Exam: Awake Additional comments: awake, mumbles words, unable to follow commands. - Skin Skin Exam: Warm Assessment and Plan (1) Pathologic fracture of femur Status: Acute (2) Right leg pain Status: Acute (3) UTI (urinary tract infection) Status: Acute (4) Severe dementia Status: Chronic (5) HTN (hypertension) Status: Acute (6) COPD (chronic obstructive pulmonary disease) Status: Chronic (7) Osteoarthrosis involving multiple sites Status: Chronic (8) Chronic back pain Status: Chronic (9) Generalized weakness Status: Chronic (10) Constipation Status: Chronic (11) History of seizure Status: Chronic - Assessment and Plan (Free Text) Plan: blood C-S Staph coag neg,continue Vanco, f/u ID, Duragesic, Lamictal and rest of treatment
[2018-04-15] MEDS: Calcium-Vit D 500 mg-200 Units Tab UD PO SCH (09:59)
[2018-04-15] MEDS: Metoprolol Succinate 25 mg XL Tab PO SCH (09:59)
[2018-04-15] MEDS: Nitroglycerin 0.2 mg/hr Top Patch TD SCH (09:59)
[2018-04-15] MEDS: Potassium Chloride 20 mEq/15 ml LIQ UD PO SCH ×2 (09:59→16:29)
--- NOTE | 2018-04-15 14:56 | CP.PCM.PN ---
Subjective - Subjective Subjective: mumbling words, not following commands, no AD Objective - Vital Signs/Intake and Output Vital Signs (last 24 hours): Temp Pulse Resp BP Pulse Ox 98.7 F 71 18 106/51 L 94 L 04/15/18 04:36 04/15/18 04:36 04/15/18 04:36 04/15/18 04:36 04/15/18 04:36 - Medications Medications: Current Medications Acetaminophen (Tylenol 325mg Tab) 650 mg PO Q4H PRN PRN Reason: Pain, Mild (1-3) Amlodipine Besylate (Norvasc) 5 mg PO DAILY [facility] Last Admin: 04/15/18 09:58 Dose: 5 mg Aspirin (Aspirin Chewable) 81 mg PO DAILY [facility] Last Admin: 04/15/18 09:59 Dose: 81 mg Atorvastatin Calcium (Lipitor) 40 mg PO HS [facility] Last Admin: 04/14/18 21:13 Dose: 40 mg Bisacodyl (Dulcolax) 10 mg [place] DAILY PRN PRN Reason: Constipation Calcium/Vitamin D (Oyster Shell Calcium/Vitamin D 500 Mg-200 Iu) 1 tab PO DAILY [facility] Last Admin: 04/15/18 09:59 Dose: 1 tab Cyanocobalamin (Vitamin B12 1000 Mcg/Ml Inj) 1,000 mcg IM Q30D [facility] Duloxetine HCl (Cymbalta) 20 mg PO DAILY [facility] Last Admin: 04/15/18 09:59 Dose: 20 mg Ergocalciferol (Drisdol 50,000 Intl Units Cap) 1 cap PO WE [facility] Last Admin: 04/12/18 18:51 Dose: 1 cap Fentanyl (Duragesic) 1 patch TD Q72H [facility]; Protocol Last Admin: 04/15/18 10:10 Dose: Not Given Gabapentin (Neurontin) 100 mg PO TID [facility] Last Admin: 04/15/18 12:05 Dose: 100 mg Vancomycin HCl 1 gm/ Sodium (Chloride) 250 mls @ 166.667 mls/hr IVPB DAILY [facility]; Protocol Last Admin: 04/15/18 10:00 Dose: 166.667 mls/hr Lactulose (Enulose) 20 gm PO BID [facility] Last Admin: 04/15/18 09:58 Dose: 20 gm Lamotrigine (Lamictal) 25 mg PO TID [facility] Last Admin: 04/15/18 12:05 Dose: 25 mg Magnesium Hydroxide (Milk Of Magnesia) 30 ml PO HS PRN PRN Reason: Constipation Meclizine HCl (Antivert) 12.5 mg PO TID [facility] Last Admin: 04/15/18 12:05 Dose: 12.5 mg Metoprolol Succinate (Toprol Xl) 25 mg PO DAILY [facility] Last Admin: 04/15/18 09:59 Dose: 25 mg Morphine Sulfate (Morphine) 2 mg IVP Q6 PRN PRN Reason: Pain, moderate (4-7) Last Admin: 04/15/18 12:08 Dose: 2 mg Nitroglycerin (Nitro-Dur 0.2 Mg/Hr Patch) 1 patch TD DAILY [facility] Last Admin: 04/15/18 09:59 Dose: 1 patch Potassium Chloride (Potassium Chloride Oral Soln) 20 meq PO BID [facility] Last Admin: 04/15/18 09:59 Dose: 20 meq - Labs Labs: 04/14/18 10:15 04/14/18 10:15 PT 13.8 Seconds (9.8-13.1) H 04/13/18 11:00 INR 1.2 04/13/18 11:00 APTT 27.5 Seconds (25.6-37.1) 04/13/18 11:00 - Constitutional Appears: Chronically Ill - Head Exam Head Exam: NORMAL INSPECTION - Eye Exam Eye Exam: PERRL - ENT Exam ENT Exam: Normal Exam - Neck Exam Neck Exam: Normal Inspection - Respiratory Exam Respiratory Exam: Decreased Breath Sounds (at bases) - Cardiovascular Exam Cardiovascular Exam: REGULAR RHYTHM - GI/Abdominal Exam GI & Abdominal Exam: Soft, Normal Bowel Sounds - Extremities Exam Additional comments: splint and Hector wrap RLE, adema , tenderness - Back Exam Back Exam: tenderness - Neurological Exam Neurological Exam: Awake Additional comments: mumbling words, not following commands, generalized weakness Assessment and Plan (1) Pathologic fracture of femur Status: Acute (2) Right leg pain Status: Acute (3) UTI (urinary tract infection) Status: Acute (4) Severe dementia Status: Chronic (5) HTN (hypertension) Status: Acute (6) COPD (chronic obstructive pulmonary disease) Status: Chronic (7) Osteoarthrosis involving multiple sites Status: Chronic (8) Chronic back pain Status: Chronic (9) Generalized weakness Status: Chronic (10) Constipation Status: Chronic (11) History of seizure Status: Chronic - Assessment and Plan (Free Text) Plan: continue Morphine , Lamictal and rest of treatment, f/u ID , Ortho
[2018-04-16] MEDS: Potassium Chloride 20 mEq/15 ml LIQ UD PO SCH ×2 (09:45→17:32)
[2018-04-16] MEDS: Calcium-Vit D 500 mg-200 Units Tab UD PO SCH (09:48)
[2018-04-16] MEDS: Nitroglycerin 0.2 mg/hr Top Patch TD SCH (09:49)
[2018-04-16] MEDS: Metoprolol Succinate 25 mg XL Tab PO SCH (09:49)
--- NOTE | 2018-04-16 14:13 | CP.PCM.PN ---
Subjective - Subjective Subjective: awake, mumbles words, not following commands Objective - Vital Signs/Intake and Output Vital Signs (last 24 hours): Temp Pulse Resp BP Pulse Ox 97.2 F L 79 20 118/58 L 94 L 04/16/18 09:09 04/16/18 09:09 04/16/18 09:09 04/16/18 09:09 04/16/18 09:09 Intake and Output: 04/16/18 04/16/18 06:59 18:59 Output Total 275 Balance -275 - Medications Medications: Current Medications Acetaminophen (Tylenol 325mg Tab) 650 mg PO Q4H PRN PRN Reason: Pain, Mild (1-3) Amlodipine Besylate (Norvasc) 5 mg PO DAILY [facility] Last Admin: 04/16/18 09:49 Dose: 5 mg Aspirin (Aspirin Chewable) 81 mg PO DAILY [facility] Last Admin: 04/16/18 09:48 Dose: 81 mg Atorvastatin Calcium (Lipitor) 40 mg PO HS [facility] Last Admin: 04/15/18 21:32 Dose: 40 mg Bisacodyl (Dulcolax) 10 mg [place] DAILY PRN PRN Reason: Constipation Calcium/Vitamin D (Oyster Shell Calcium/Vitamin D 500 Mg-200 Iu) 1 tab PO DAILY [facility] Last Admin: 04/16/18 09:48 Dose: 1 tab Cyanocobalamin (Vitamin B12 1000 Mcg/Ml Inj) 1,000 mcg IM Q30D [facility] Duloxetine HCl (Cymbalta) 20 mg PO DAILY [facility] Last Admin: 04/16/18 09:48 Dose: 20 mg Ergocalciferol (Drisdol 50,000 Intl Units Cap) 1 cap PO WE [facility] Last Admin: 04/12/18 18:51 Dose: 1 cap Fentanyl (Duragesic) 1 patch TD Q72H [facility]; Protocol Last Admin: 04/15/18 10:10 Dose: Not Given Gabapentin (Neurontin) 100 mg PO TID [facility] Last Admin: 04/16/18 13:08 Dose: 100 mg Lactulose (Enulose) 20 gm PO BID [facility] Last Admin: 04/16/18 09:49 Dose: 20 gm Lamotrigine (Lamictal) 25 mg PO TID [facility] Last Admin: 04/16/18 12:57 Dose: 25 mg Magnesium Hydroxide (Milk Of Magnesia) 30 ml PO HS PRN PRN Reason: Constipation Meclizine HCl (Antivert) 12.5 mg PO TID [facility] Last Admin: 04/16/18 12:58 Dose: 12.5 mg Metoprolol Succinate (Toprol Xl) 25 mg PO DAILY [facility] Last Admin: 04/16/18 09:49 Dose: 25 mg Morphine Sulfate (Morphine) 2 mg IVP Q6 PRN PRN Reason: Pain, moderate (4-7) Last Admin: 04/16/18 12:55 Dose: 2 mg Nitroglycerin (Nitro-Dur 0.2 Mg/Hr Patch) 1 patch TD DAILY [facility] Last Admin: 04/16/18 09:49 Dose: 1 patch Potassium Chloride (Potassium Chloride Oral Soln) 20 meq PO BID [facility] Last Admin: 04/15/18 16:29 Dose: 20 meq - Labs Labs: 04/14/18 10:15 04/14/18 10:15 PT 13.8 Seconds (9.8-13.1) H 04/13/18 11:00 INR 1.2 04/13/18 11:00 APTT 27.5 Seconds (25.6-37.1) 04/13/18 11:00 - Constitutional Appears: Chronically Ill - Head Exam Head Exam: NORMAL INSPECTION - Eye Exam Eye Exam: PERRL - ENT Exam ENT Exam: Normal Exam - Neck Exam Neck Exam: Normal Inspection - Respiratory Exam Respiratory Exam: Decreased Breath Sounds (at bases) - Cardiovascular Exam Cardiovascular Exam: REGULAR RHYTHM - GI/Abdominal Exam GI & Abdominal Exam: Soft, Normal Bowel Sounds - Extremities Exam Additional comments: splint and Hector wrap RLE, tenderness, edema - Back Exam Back Exam: tenderness - Neurological Exam Neurological Exam: Awake Additional comments: mumbles words, not following commands, generalized weakness Assessment and Plan (1) Pathologic fracture of femur Status: Acute (2) Right leg pain Status: Acute (3) UTI (urinary tract infection) Status: Acute (4) Severe dementia Status: Chronic (5) HTN (hypertension) Status: Acute (6) COPD (chronic obstructive pulmonary disease) Status: Chronic (7) Osteoarthrosis involving multiple sites Status: Chronic (8) Chronic back pain Status: Chronic (9) Generalized weakness Status: Chronic (10) Constipation Status: Chronic (11) History of seizure Status: Chronic - Assessment and Plan (Free Text) Plan: continue Morphine, Lamictal, Vanco was DC , f/u ID and Ortho
--- NOTE | 2018-04-17 09:14 | CP.PCM.PN ---
Subjective - Date & Time of Evaluation Date of Evaluation: 04/17/18 Time of Evaluation: 09:12 - Subjective Subjective: plan for surgery today stable Objective - Vital Signs/Intake and Output Vital Signs (last 24 hours): Temp Pulse Resp BP Pulse Ox 98.2 F 80 20 121/61 94 L 04/17/18 08:00 04/17/18 08:00 04/17/18 08:00 04/17/18 08:00 04/17/18 08:00 Intake and Output: 04/17/18 04/17/18 06:59 18:59 Output Total 400 Balance -400 - Medications Medications: Current Medications Acetaminophen (Tylenol 325mg Tab) 650 mg PO Q4H PRN PRN Reason: Pain, Mild (1-3) Amlodipine Besylate (Norvasc) 5 mg PO DAILY [facility] Last Admin: 04/16/18 09:49 Dose: 5 mg Aspirin (Aspirin Chewable) 81 mg PO DAILY [facility] Last Admin: 04/16/18 09:48 Dose: 81 mg Atorvastatin Calcium (Lipitor) 40 mg PO HS [facility] Last Admin: 04/16/18 21:33 Dose: 40 mg Bisacodyl (Dulcolax) 10 mg [place] DAILY PRN PRN Reason: Constipation Calcium/Vitamin D (Oyster Shell Calcium/Vitamin D 500 Mg-200 Iu) 1 tab PO DAILY [facility] Last Admin: 04/16/18 09:48 Dose: 1 tab Cyanocobalamin (Vitamin B12 1000 Mcg/Ml Inj) 1,000 mcg IM Q30D [facility] Duloxetine HCl (Cymbalta) 20 mg PO DAILY [facility] Last Admin: 04/16/18 09:48 Dose: 20 mg Ergocalciferol (Drisdol 50,000 Intl Units Cap) 1 cap PO WE [facility] Last Admin: 04/12/18 18:51 Dose: 1 cap Fentanyl (Duragesic) 1 patch TD Q72H [facility]; Protocol Last Admin: 04/15/18 10:10 Dose: Not Given Gabapentin (Neurontin) 100 mg PO TID [facility] Last Admin: 04/16/18 17:31 Dose: 100 mg Lactulose (Enulose) 20 gm PO BID [facility] Last Admin: 04/16/18 17:31 Dose: 20 gm Lamotrigine (Lamictal) 25 mg PO TID [facility] Last Admin: 04/16/18 17:31 Dose: 25 mg Magnesium Hydroxide (Milk Of Magnesia) 30 ml PO HS PRN PRN Reason: Constipation Meclizine HCl (Antivert) 12.5 mg PO TID [facility] Last Admin: 04/16/18 17:31 Dose: 12.5 mg Metoprolol Succinate (Toprol Xl) 25 mg PO DAILY [facility] Last Admin: 04/16/18 09:49 Dose: 25 mg Morphine Sulfate (Morphine) 2 mg IVP Q6 PRN PRN Reason: Pain, moderate (4-7) Last Admin: 04/17/18 04:15 Dose: 2 mg Nitroglycerin (Nitro-Dur 0.2 Mg/Hr Patch) 1 patch TD DAILY [facility] Last Admin: 04/16/18 09:49 Dose: 1 patch Potassium Chloride (Potassium Chloride Oral Soln) 20 meq PO BID [facility] Last Admin: 04/16/18 17:32 Dose: 20 meq - Labs Labs: 04/14/18 10:15 04/14/18 10:15 PT 13.8 Seconds (9.8-13.1) H 04/13/18 11:00 INR 1.2 04/13/18 11:00 APTT 27.5 Seconds (25.6-37.1) 04/13/18 11:00 - Constitutional Appears: Well - Head Exam Head Exam: ATRAUMATIC, NORMAL INSPECTION, NORMOCEPHALIC - Eye Exam Eye Exam: EOMI, Normal appearance, PERRL Pupil Exam: NORMAL ACCOMODATION, PERRL - ENT Exam ENT Exam: Mucous Membranes Moist, Normal Exam - Neck Exam Neck Exam: Full ROM, Normal Inspection. absent: Lymphadenopathy - Respiratory Exam Respiratory Exam: Clear to Ausculation Bilateral, NORMAL BREATHING PATTERN - Cardiovascular Exam Cardiovascular Exam: REGULAR RHYTHM, +S1, +S2. absent: Murmur - GI/Abdominal Exam GI & Abdominal Exam: Soft, Normal Bowel Sounds. absent: Tenderness - Extremities Exam Extremities Exam: Full ROM, Normal Capillary Refill, Normal Inspection. absent: Joint Swelling, Pedal Edema - Back Exam Back Exam: NORMAL INSPECTION - Neurological Exam Neurological Exam: Alert, Awake, CN II-XII Intact, Normal Gait, Oriented x3 - Psychiatric Exam Psychiatric exam: Normal Affect, Normal Mood - Skin Skin Exam: Dry, Intact, Normal Color, Warm Assessment and Plan (1) Preop cardiovascular exam Assessment & Plan: stable to proceed with planned surgery with intermediat risk for perioperative cardiac event Status: Acute (2) Closed fracture of right distal femur Status: Acute (3) Severe dementia Status: Chronic (4) HTN (hypertension) Assessment & Plan: cont norvasc and BB Status: Acute
[2018-04-17] MEDS: Calcium-Vit D 500 mg-200 Units Tab UD PO SCH (10:03)
[2018-04-17] MEDS: Nitroglycerin 0.2 mg/hr Top Patch TD SCH (10:04)
[2018-04-17] MEDS: Metoprolol Succinate 25 mg XL Tab PO SCH (10:05)
[2018-04-17 10:09] LABS: HEMOGLOBIN 11.8 g/dL (12.0-16.0); MEAN CELL VOLUME 89.2 fl (81.0-99.0); MEAN CORPUSCULAR HEMOGLOBIN 29.1 pg (27.0-31.0); MEAN CORPUSCULAR HGB CONC 32.6 g/dL (33.0-37.0); RBC 4.07 Mil/uL (3.80-5.20); RED CELL DISTRIBUTION WIDTH 14.3 % (11.5-14.5); WHITE BLOOD COUNT 6.1 K/uL (4.8-10.8)
[2018-04-17] MEDS: Potassium Chloride 20 mEq/15 ml LIQ UD PO SCH ×2 (10:09→17:18)
[2018-04-17 10:21] LABS: INR 1.2
[2018-04-17 10:22] LABS: BLOOD UREA NITROGEN 12 mg/dl (7-17); CALCIUM 8.9 mg/dL (8.4-10.2); GFR NON-AFRICAN AMERICAN > 60
--- NOTE | 2018-04-17 10:22 | CP.PCM.PN ---
Subjective - Date & Time of Evaluation Date of Evaluation: 04/17/18 Time of Evaluation: 08:00 - Subjective Subjective: Patient seen and examined at bedside. No acute events overnight. Poor historian. Does not follow commands. Objective - Vital Signs/Intake and Output Vital Signs (last 24 hours): Temp Pulse Resp BP Pulse Ox 98.2 F 80 20 121/61 94 L 04/17/18 08:00 04/17/18 10:05 04/17/18 08:00 04/17/18 10:05 04/17/18 08:00 Intake and Output: 04/17/18 04/17/18 06:59 18:59 Output Total 400 Balance -400 - Medications Medications: Current Medications Acetaminophen (Tylenol 325mg Tab) 650 mg PO Q4H PRN PRN Reason: Pain, Mild (1-3) Amlodipine Besylate (Norvasc) 5 mg PO DAILY [facility] Last Admin: 04/17/18 10:03 Dose: 5 mg Aspirin (Aspirin Chewable) 81 mg PO DAILY [facility] Last Admin: 04/17/18 10:03 Dose: 81 mg Atorvastatin Calcium (Lipitor) 40 mg PO HS [facility] Last Admin: 04/16/18 21:33 Dose: 40 mg Bisacodyl (Dulcolax) 10 mg [place] DAILY PRN PRN Reason: Constipation Calcium/Vitamin D (Oyster Shell Calcium/Vitamin D 500 Mg-200 Iu) 1 tab PO DAILY [facility] Last Admin: 04/17/18 10:03 Dose: 1 tab Cyanocobalamin (Vitamin B12 1000 Mcg/Ml Inj) 1,000 mcg IM Q30D [facility] Duloxetine HCl (Cymbalta) 20 mg PO DAILY [facility] Last Admin: 04/16/18 09:48 Dose: 20 mg Ergocalciferol (Drisdol 50,000 Intl Units Cap) 1 cap PO WE [facility] Last Admin: 04/12/18 18:51 Dose: 1 cap Fentanyl (Duragesic) 1 patch TD Q72H [facility]; Protocol Last Admin: 04/15/18 10:10 Dose: Not Given Gabapentin (Neurontin) 100 mg PO TID [facility] Last Admin: 04/17/18 10:03 Dose: 100 mg Lactulose (Enulose) 20 gm PO BID [facility] Last Admin: 04/17/18 10:06 Dose: 20 gm Lamotrigine (Lamictal) 25 mg PO TID [facility] Last Admin: 04/17/18 10:06 Dose: 25 mg Magnesium Hydroxide (Milk Of Magnesia) 30 ml PO HS PRN PRN Reason: Constipation Meclizine HCl (Antivert) 12.5 mg PO TID [facility] Last Admin: 04/16/18 17:31 Dose: 12.5 mg Metoprolol Succinate (Toprol Xl) 25 mg PO DAILY [facility] Last Admin: 04/17/18 10:05 Dose: 25 mg Morphine Sulfate (Morphine) 2 mg IVP Q6 PRN PRN Reason: Pain, moderate (4-7) Last Admin: 04/17/18 04:15 Dose: 2 mg Nitroglycerin (Nitro-Dur 0.2 Mg/Hr Patch) 1 patch TD DAILY [facility] Last Admin: 04/17/18 10:04 Dose: 1 patch Potassium Chloride (Potassium Chloride Oral Soln) 20 meq PO BID [facility] Last Admin: 04/17/18 10:09 Dose: 20 meq - Labs Labs: 04/17/18 09:40 04/14/18 10:15 PT 13.8 Seconds (9.8-13.1) H 04/13/18 11:00 INR 1.2 04/13/18 11:00 APTT 27.5 Seconds (25.6-37.1) 04/13/18 11:00 - Extremities Exam Additional comments: RLE: posterior long leg splint intact, well padded mild thigh swelling and ecchymosis anterior suprapatellar redness improved at level of fracture unable to assess sensation due to dementia motor intact EHL.FHL pedal pulses intact comps soft NT Assessment and Plan (1) Closed fracture of right distal femur Assessment & Plan: -Hold ASA -Awaiting medical and ID clearance -Plan for Distal femur ORIF on Tuesday -Maintain splint -monitor skin -NPO tomorrow night -above d/w Dr. Barboza in agreement Status: Acute
--- NOTE | 2018-04-17 15:37 | CP.PCM.PN ---
Subjective - Date & Time of Evaluation Date of Evaluation: 04/17/18 Time of Evaluation: 15:38 - Subjective Subjective: I D NOTE POSITIVE BLOOD CULTURE WAS COAGULASE NEG STAPHYLOCOCCUS(EPIDERMIDIS) CONTAMINENT IMMEDIATE FOLLOWUP CULTURES WERE NEGATIVE AND NO OTHER ID ISSUES. PATIENT IS OK FOR SURGERY ON 04/19/18 CHECK VANCO TROUGH Objective - Vital Signs/Intake and Output Vital Signs (last 24 hours): Temp Pulse Resp BP Pulse Ox 97.7 F 80 20 130/72 95 04/17/18 11:45 04/17/18 11:45 04/17/18 11:45 04/17/18 11:45 04/17/18 11:45 Intake and Output: 04/17/18 04/17/18 06:59 18:59 Output Total 400 Balance -400 - Medications Medications: Current Medications Acetaminophen (Tylenol 325mg Tab) 650 mg PO Q4H PRN PRN Reason: Pain, Mild (1-3) Amlodipine Besylate (Norvasc) 5 mg PO DAILY [facility] Last Admin: 04/17/18 10:03 Dose: 5 mg Aspirin (Aspirin Chewable) 81 mg PO DAILY [facility] Last Admin: 04/17/18 10:03 Dose: 81 mg Atorvastatin Calcium (Lipitor) 40 mg PO HS [facility] Last Admin: 04/16/18 21:33 Dose: 40 mg Bisacodyl (Dulcolax) 10 mg [place] DAILY PRN PRN Reason: Constipation Calcium/Vitamin D (Oyster Shell Calcium/Vitamin D 500 Mg-200 Iu) 1 tab PO DAILY [facility] Last Admin: 04/17/18 10:03 Dose: 1 tab Cyanocobalamin (Vitamin B12 1000 Mcg/Ml Inj) 1,000 mcg IM Q30D [facility] Duloxetine HCl (Cymbalta) 20 mg PO DAILY [facility] Last Admin: 04/17/18 09:15 Dose: 20 mg Ergocalciferol (Drisdol 50,000 Intl Units Cap) 1 cap PO WE [facility] Last Admin: 04/12/18 18:51 Dose: 1 cap Fentanyl (Duragesic) 1 patch TD Q72H [facility]; Protocol Last Admin: 04/15/18 10:10 Dose: Not Given Gabapentin (Neurontin) 100 mg PO TID [facility] Last Admin: 04/17/18 13:04 Dose: 100 mg Vancomycin HCl 1 gm/ Sodium (Chloride) 250 mls @ 166.667 mls/hr IVPB DAILY [facility]; Protocol Last Admin: 04/17/18 13:08 Dose: 166.667 mls/hr Lactulose (Enulose) 20 gm PO BID [facility] Last Admin: 04/17/18 10:06 Dose: 20 gm Lamotrigine (Lamictal) 25 mg PO TID [facility] Last Admin: 04/17/18 10:06 Dose: 25 mg Magnesium Hydroxide (Milk Of Magnesia) 30 ml PO HS PRN PRN Reason: Constipation Meclizine HCl (Antivert) 12.5 mg PO TID [facility] Last Admin: 04/17/18 13:04 Dose: 12.5 mg Metoprolol Succinate (Toprol Xl) 25 mg PO DAILY [facility] Last Admin: 04/17/18 10:05 Dose: 25 mg Morphine Sulfate (Morphine) 2 mg IVP Q6 PRN PRN Reason: Pain, moderate (4-7) Last Admin: 04/17/18 13:09 Dose: 2 mg Nitroglycerin (Nitro-Dur 0.2 Mg/Hr Patch) 1 patch TD DAILY [facility] Last Admin: 04/17/18 10:04 Dose: 1 patch Potassium Chloride (Potassium Chloride Oral Soln) 20 meq PO BID [facility] Last Admin: 04/17/18 10:09 Dose: 20 meq - Labs Labs: 04/17/18 09:40 04/17/18 09:40 PT 14.0 Seconds (9.8-13.1) H 04/17/18 09:40 INR 1.2 04/17/18 09:40 APTT 27.5 Seconds (25.6-37.1) 04/13/18 11:00
--- NOTE | 2018-04-17 16:37 | CP.PCM.PN ---
Subjective - Date & Time of Evaluation Date of Evaluation: 04/17/18 Time of Evaluation: 12:00 - Subjective Subjective: F/U Fx R femur. Pt awake, mumbling words Objective - Vital Signs/Intake and Output Vital Signs (last 24 hours): Temp Pulse Resp BP Pulse Ox 97.8 F 74 20 138/70 96 04/17/18 15:55 04/17/18 15:55 04/17/18 15:55 04/17/18 15:55 04/17/18 15:55 Intake and Output: 04/17/18 04/17/18 06:59 18:59 Output Total 400 Balance -400 - Medications Medications: Current Medications Acetaminophen (Tylenol 325mg Tab) 650 mg PO Q4H PRN PRN Reason: Pain, Mild (1-3) Amlodipine Besylate (Norvasc) 5 mg PO DAILY [facility] Last Admin: 04/17/18 10:03 Dose: 5 mg Aspirin (Aspirin Chewable) 81 mg PO DAILY [facility] Last Admin: 04/17/18 10:03 Dose: 81 mg Atorvastatin Calcium (Lipitor) 40 mg PO HS [facility] Last Admin: 04/16/18 21:33 Dose: 40 mg Bisacodyl (Dulcolax) 10 mg [place] DAILY PRN PRN Reason: Constipation Calcium/Vitamin D (Oyster Shell Calcium/Vitamin D 500 Mg-200 Iu) 1 tab PO DAILY [facility] Last Admin: 04/17/18 10:03 Dose: 1 tab Cyanocobalamin (Vitamin B12 1000 Mcg/Ml Inj) 1,000 mcg IM Q30D [facility] Duloxetine HCl (Cymbalta) 20 mg PO DAILY [facility] Last Admin: 04/17/18 09:15 Dose: 20 mg Ergocalciferol (Drisdol 50,000 Intl Units Cap) 1 cap PO WE [facility] Last Admin: 04/12/18 18:51 Dose: 1 cap Fentanyl (Duragesic) 1 patch TD Q72H [facility]; Protocol Last Admin: 04/15/18 10:10 Dose: Not Given Gabapentin (Neurontin) 100 mg PO TID [facility] Last Admin: 04/17/18 13:04 Dose: 100 mg Vancomycin HCl 1 gm/ Sodium (Chloride) 250 mls @ 166.667 mls/hr IVPB DAILY [facility]; Protocol Last Admin: 04/17/18 13:08 Dose: 166.667 mls/hr Lactulose (Enulose) 20 gm PO BID [facility] Last Admin: 04/17/18 10:06 Dose: 20 gm Lamotrigine (Lamictal) 25 mg PO TID [facility] Last Admin: 04/17/18 10:06 Dose: 25 mg Magnesium Hydroxide (Milk Of Magnesia) 30 ml PO HS PRN PRN Reason: Constipation Meclizine HCl (Antivert) 12.5 mg PO TID [facility] Last Admin: 04/17/18 13:04 Dose: 12.5 mg Metoprolol Succinate (Toprol Xl) 25 mg PO DAILY [facility] Last Admin: 04/17/18 10:05 Dose: 25 mg Morphine Sulfate (Morphine) 2 mg IVP Q6 PRN PRN Reason: Pain, moderate (4-7) Last Admin: 04/17/18 13:09 Dose: 2 mg Nitroglycerin (Nitro-Dur 0.2 Mg/Hr Patch) 1 patch TD DAILY [facility] Last Admin: 04/17/18 10:04 Dose: 1 patch Potassium Chloride (Potassium Chloride Oral Soln) 20 meq PO BID [facility] Last Admin: 04/17/18 10:09 Dose: 20 meq - Labs Labs: 04/17/18 09:40 04/17/18 09:40 PT 14.0 Seconds (9.8-13.1) H 04/17/18 09:40 INR 1.2 04/17/18 09:40 APTT 27.5 Seconds (25.6-37.1) 04/13/18 11:00 - Constitutional Appears: Chronically Ill - Head Exam Head Exam: NORMAL INSPECTION - Eye Exam Eye Exam: PERRL - ENT Exam ENT Exam: Normal Exam - Neck Exam Neck Exam: Normal Inspection - Respiratory Exam Respiratory Exam: Decreased Breath Sounds (at bases) - Cardiovascular Exam Cardiovascular Exam: REGULAR RHYTHM - GI/Abdominal Exam GI & Abdominal Exam: Soft, Normal Bowel Sounds - Extremities Exam Extremities Exam: Tenderness (RLE, splint in place with mili wrap) Additional comments: L heel ulcer, edema RLE - Back Exam Back Exam: tenderness Additional comments: Sacral ulcer - Neurological Exam Neurological Exam: Awake Additional comments: Mumbling words, not following commands, generalized weakness. - Skin Skin Exam: Warm Assessment and Plan (1) Pathologic fracture of femur Status: Acute (2) Right leg pain Status: Acute (3) UTI (urinary tract infection) Status: Acute (4) Severe dementia Status: Chronic (5) HTN (hypertension) Status: Acute (6) COPD (chronic obstructive pulmonary disease) Status: Chronic (7) Osteoarthrosis involving multiple sites Status: Chronic (8) Chronic back pain Status: Chronic (9) Generalized weakness Status: Chronic (10) Constipation Status: Chronic (11) History of seizure Status: Chronic - Assessment and Plan (Free Text) Plan: Pt cleared by Cardiology, 2nd set of blood C-S negative, Yenifero was DC. for OR tomorrow.
[2018-04-18 05:55] LABS: HEMOGLOBIN 11.5 g/dL (12.0-16.0); MEAN CELL VOLUME 88.3 fl (81.0-99.0); MEAN CORPUSCULAR HEMOGLOBIN 28.9 pg (27.0-31.0); MEAN CORPUSCULAR HGB CONC 32.7 g/dL (33.0-37.0); RBC 3.97 Mil/uL (3.80-5.20); RED CELL DISTRIBUTION WIDTH 14.4 % (11.5-14.5)
[2018-04-18 05:59] LABS: INR 1.2; PROTHROMBIN TIME 13.8 Seconds (9.8-13.1)
[2018-04-18 06:02] LABS: PARTIAL THROMBOPLASTIN TIME 26.4 Seconds (25.6-37.1)
[2018-04-18 06:29] LABS: BLOOD UREA NITROGEN 14 mg/dl (7-17); CALCIUM 9.1 mg/dL (8.4-10.2); GFR NON-AFRICAN AMERICAN > 60
[2018-04-18] MEDS: Nitroglycerin 0.2 mg/hr Top Patch TD SCH (08:41)
[2018-04-18] MEDS: Calcium-Vit D 500 mg-200 Units Tab UD PO SCH (08:42)
[2018-04-18] MEDS: Metoprolol Succinate 25 mg XL Tab PO SCH (08:42)
[2018-04-18] MEDS: Potassium Chloride 20 mEq/15 ml LIQ UD PO SCH ×2 (08:42→17:39)
[2018-04-18 10:15] LABS: BLOOD UREA NITROGEN 14 mg/dl (7-17); GFR NON-AFRICAN AMERICAN > 60
--- NOTE | 2018-04-18 11:46 | CP.PCM.PN ---
Subjective - Date & Time of Evaluation Date of Evaluation: 04/18/18 Time of Evaluation: 09:00 - Subjective Subjective: Patient seen and examined at bedside comfortable. Nonverbal. No acute events overnight. Objective - Vital Signs/Intake and Output Vital Signs (last 24 hours): Temp Pulse Resp BP Pulse Ox 99 F 86 18 131/73 95 04/18/18 07:54 04/18/18 09:00 04/18/18 07:54 04/18/18 08:42 04/18/18 07:54 Intake and Output: 04/18/18 04/18/18 06:59 18:59 Intake Total 150 Output Total 200 Balance -50 - Medications Medications: Current Medications Acetaminophen (Tylenol 325mg Tab) 650 mg PO Q4H PRN PRN Reason: Pain, Mild (1-3) Amlodipine Besylate (Norvasc) 5 mg PO DAILY [facility] Last Admin: 04/18/18 08:41 Dose: 5 mg Aspirin (Aspirin Chewable) 81 mg PO DAILY [facility] Last Admin: 04/17/18 10:03 Dose: 81 mg Atorvastatin Calcium (Lipitor) 40 mg PO HS [facility] Last Admin: 04/17/18 21:25 Dose: 40 mg Bisacodyl (Dulcolax) 10 mg [place] DAILY PRN PRN Reason: Constipation Calcium/Vitamin D (Oyster Shell Calcium/Vitamin D 500 Mg-200 Iu) 1 tab PO DAILY [facility] Last Admin: 04/18/18 08:42 Dose: 1 tab Cyanocobalamin (Vitamin B12 1000 Mcg/Ml Inj) 1,000 mcg IM Q30D [facility] Duloxetine HCl (Cymbalta) 20 mg PO DAILY [facility] Last Admin: 04/18/18 08:40 Dose: 20 mg Ergocalciferol (Drisdol 50,000 Intl Units Cap) 1 cap PO WE [facility] Last Admin: 04/12/18 18:51 Dose: 1 cap Fentanyl (Duragesic) 1 patch TD Q72H [facility]; Protocol Last Admin: 04/18/18 09:24 Dose: 1 patch Gabapentin (Neurontin) 100 mg PO TID [facility] Last Admin: 04/18/18 08:41 Dose: 100 mg Vancomycin HCl 1 gm/ Sodium (Chloride) 250 mls @ 166.667 mls/hr IVPB DAILY [facility]; Protocol Last Admin: 04/18/18 08:42 Dose: 166.667 mls/hr Lactulose (Enulose) 20 gm PO BID [facility] Last Admin: 04/18/18 09:26 Dose: Not Given Lamotrigine (Lamictal) 25 mg PO TID [facility] Last Admin: 04/18/18 08:41 Dose: 25 mg Magnesium Hydroxide (Milk Of Magnesia) 30 ml PO HS PRN PRN Reason: Constipation Meclizine HCl (Antivert) 12.5 mg PO TID [facility] Last Admin: 04/18/18 08:39 Dose: 12.5 mg Metoprolol Succinate (Toprol Xl) 25 mg PO DAILY [facility] Last Admin: 04/18/18 08:42 Dose: 25 mg Morphine Sulfate (Morphine) 2 mg IVP Q6 PRN PRN Reason: Pain, moderate (4-7) Last Admin: 04/17/18 13:09 Dose: 2 mg Nitroglycerin (Nitro-Dur 0.2 Mg/Hr Patch) 1 patch TD DAILY [facility] Last Admin: 04/18/18 08:41 Dose: 1 patch Potassium Chloride (Potassium Chloride Oral Soln) 20 meq PO BID [facility] Last Admin: 04/18/18 08:42 Dose: 20 meq - Labs Labs: 04/18/18 04:25 04/18/18 09:14 PT 13.8 Seconds (9.8-13.1) H 04/18/18 04:25 INR 1.2 04/18/18 04:25 APTT 26.4 Seconds (25.6-37.1) 04/18/18 04:25 - Extremities Exam Additional comments: RLE: posterior long leg splint intact, well padded mild thigh swelling and ecchymosis skin intact anterior at level of fracture unable to assess sensation due to dementia motor intact EHL/FHL pedal pulses intact comps soft NT Assessment and Plan (1) Closed fracture of right distal femur Assessment & Plan: -Hold ASA -Medical and ID clearance appreciated -OR tomorrow for Distal femur ORIF -NPO pMN -above d/w Dr. Barboza in agreement Status: Acute
--- NOTE | 2018-04-18 14:44 | CP.PCM.PN ---
Subjective - Date & Time of Evaluation Date of Evaluation: 04/18/18 Time of Evaluation: 11:50 - Subjective Subjective: F/U Fx R Femur. No A/D, disoriented, confused. Objective - Vital Signs/Intake and Output Vital Signs (last 24 hours): Temp Pulse Resp BP Pulse Ox 99.1 F 70 18 123/65 95 04/18/18 11:51 04/18/18 11:51 04/18/18 11:51 04/18/18 11:51 04/18/18 11:51 Intake and Output: 04/18/18 04/18/18 06:59 18:59 Intake Total 150 Output Total 200 Balance -50 - Medications Medications: Current Medications Acetaminophen (Tylenol 325mg Tab) 650 mg PO Q4H PRN PRN Reason: Pain, Mild (1-3) Amlodipine Besylate (Norvasc) 5 mg PO DAILY [facility] Last Admin: 04/18/18 08:41 Dose: 5 mg Aspirin (Aspirin Chewable) 81 mg PO DAILY [facility] Last Admin: 04/17/18 10:03 Dose: 81 mg Atorvastatin Calcium (Lipitor) 40 mg PO HS [facility] Last Admin: 04/17/18 21:25 Dose: 40 mg Bisacodyl (Dulcolax) 10 mg [place] DAILY PRN PRN Reason: Constipation Calcium/Vitamin D (Oyster Shell Calcium/Vitamin D 500 Mg-200 Iu) 1 tab PO DAILY [facility] Last Admin: 04/18/18 08:42 Dose: 1 tab Cyanocobalamin (Vitamin B12 1000 Mcg/Ml Inj) 1,000 mcg IM Q30D [facility] Duloxetine HCl (Cymbalta) 20 mg PO DAILY [facility] Last Admin: 04/18/18 08:40 Dose: 20 mg Ergocalciferol (Drisdol 50,000 Intl Units Cap) 1 cap PO WE [facility] Last Admin: 04/12/18 18:51 Dose: 1 cap Fentanyl (Duragesic) 1 patch TD Q72H [facility]; Protocol Last Admin: 04/18/18 09:24 Dose: 1 patch Gabapentin (Neurontin) 100 mg PO TID [facility] Last Admin: 04/18/18 13:55 Dose: 100 mg Vancomycin HCl 1 gm/ Sodium (Chloride) 250 mls @ 166.667 mls/hr IVPB DAILY [facility]; Protocol Last Admin: 04/18/18 08:42 Dose: 166.667 mls/hr Lactulose (Enulose) 20 gm PO BID [facility] Last Admin: 04/18/18 09:26 Dose: Not Given Lamotrigine (Lamictal) 25 mg PO TID [facility] Last Admin: 04/18/18 13:55 Dose: 25 mg Magnesium Hydroxide (Milk Of Magnesia) 30 ml PO HS PRN PRN Reason: Constipation Meclizine HCl (Antivert) 12.5 mg PO TID [facility] Last Admin: 04/18/18 13:54 Dose: 12.5 mg Metoprolol Succinate (Toprol Xl) 25 mg PO DAILY [facility] Last Admin: 04/18/18 08:42 Dose: 25 mg Morphine Sulfate (Morphine) 2 mg IVP Q6 PRN PRN Reason: Pain, moderate (4-7) Last Admin: 04/17/18 13:09 Dose: 2 mg Nitroglycerin (Nitro-Dur 0.2 Mg/Hr Patch) 1 patch TD DAILY [facility] Last Admin: 04/18/18 08:41 Dose: 1 patch Potassium Chloride (Potassium Chloride Oral Soln) 20 meq PO BID [facility] Last Admin: 04/18/18 08:42 Dose: 20 meq - Labs Labs: 04/18/18 04:25 04/18/18 09:14 PT 13.8 Seconds (9.8-13.1) H 04/18/18 04:25 INR 1.2 04/18/18 04:25 APTT 26.4 Seconds (25.6-37.1) 04/18/18 04:25 - Constitutional Appears: No Acute Distress, Chronically Ill - Head Exam Head Exam: NORMAL INSPECTION - Eye Exam Eye Exam: PERRL - ENT Exam ENT Exam: Normal Exam - Neck Exam Neck Exam: Normal Inspection - Respiratory Exam Respiratory Exam: Decreased Breath Sounds (at bases) - Cardiovascular Exam Cardiovascular Exam: REGULAR RHYTHM - GI/Abdominal Exam GI & Abdominal Exam: Soft, Normal Bowel Sounds - Exam Additional comments: [place] Cath - Extremities Exam Extremities Exam: Tenderness (RLE, splint with mili wrap in place) Additional comments: L heel ulcer, edema RLE - Back Exam Additional comments: Sacral ulcer - Neurological Exam Neurological Exam: Awake Additional comments: Confused, mumbling words, response to tactile stimuli, generalized weakness - Skin Skin Exam: Warm Assessment and Plan (1) Pathologic fracture of femur Status: Acute (2) Right leg pain Status: Acute (3) UTI (urinary tract infection) Status: Acute (4) Severe dementia Status: Chronic (5) HTN (hypertension) Status: Acute (6) COPD (chronic obstructive pulmonary disease) Status: Chronic (7) Osteoarthrosis involving multiple sites Status: Chronic (8) Chronic back pain Status: Chronic (9) Generalized weakness Status: Chronic (10) Constipation Status: Chronic (11) History of seizure Status: Chronic - Assessment and Plan (Free Text) Plan: NPO after midnight for possible OR in AM, continue current Tx.
[2018-04-19 06:24] LABS: HEMOGLOBIN 10.6 g/dL (12.0-16.0); MEAN CELL VOLUME 87.8 fl (81.0-99.0); MEAN CORPUSCULAR HEMOGLOBIN 29.3 pg (27.0-31.0); MEAN CORPUSCULAR HGB CONC 33.4 g/dL (33.0-37.0); RBC 3.61 Mil/uL (3.80-5.20); RED CELL DISTRIBUTION WIDTH 13.9 % (11.5-14.5); WHITE BLOOD COUNT 5.7 K/uL (4.8-10.8)
[2018-04-19 06:40] LABS: BLOOD UREA NITROGEN 15 mg/dl (7-17); CALCIUM 8.6 mg/dL (8.4-10.2); GFR NON-AFRICAN AMERICAN > 60
[2018-04-19] MEDS ORDERED: Rocuronium 10 mg/ml (5 ml) ONE ×2 (07:25→09:12)
[2018-04-19] MEDS ORDERED: Etomidate 20 mg/10ml Inj IV ONE (07:26)
[2018-04-19] MEDS ORDERED: Thrombin Topical 5,000 Int Units Spray Kit ONE (07:27)
[2018-04-19] MEDS ORDERED: Bacitracin Ointment 30 GM TUBE ONE (07:27)
[2018-04-19] MEDS ORDERED: Vancomycin 1 g Inj ONE (07:44)
[2018-04-19] MEDS ORDERED: Ropivacaine 0.5% 30ML IV ONE (07:56)
[2018-04-19] MEDS ORDERED: Normosol-R 1000 ML 1,000 ML IV ONE (08:00)
[2018-04-19] MEDS ORDERED: Sodium Chloride 0.9% 1,000 ML IV ONE (08:10)
[2018-04-19] MEDS ORDERED: ePHEDrine 50 mg/ml Inj ONE (08:33)
[2018-04-19] MEDS ORDERED: EPINEPHrine 1 mg/ml (1:1000) Inj ONE (08:44)
[2018-04-19] MEDS ORDERED: Vancomycin 1 g Inj IVPB ONE (08:55)
[2018-04-19] MEDS ORDERED: Desflurane Inhalation Anesthetic Liq (240 ml) ONE (09:44)
[2018-04-19] MEDS ORDERED: HEMOSTATIC MATRIX 10 ML DIS.NEEDLE TOP ONE (10:30)
[2018-04-19] MEDS ORDERED: Neostigmine 1:1000 (1 mg/ml) Inj ONE (10:40)
[2018-04-19] MEDS ORDERED: Oxycodone/Acetaminophen 5/325 mg Tab PO PRN ×2 (11:04)
--- NOTE | 2018-04-19 12:51 | RAD ---
Date of service: 04/19/2018 PROCEDURE: Right Femur Radiographs. Right Knee Radiographs. HISTORY: s/p R distal femur ORIF COMPARISON: For radiographs and CT scan of the right femur dated 04/12/2018 TECHNIQUE: AP and Lateral Radiographs of the right femur; AP, lateral radiographs of the right knee. FINDINGS: Patient is status post open reduction internal plate and screw fixation of previously described displaced distal femoral fracture. There is vastly improved, but persistent malalignment of the fractured femoral components. Surgical drain and overlying surgical clips are present. IMPRESSION: Interval or of distal right femur. Improved, but persistent malalignment of the fracture femoral components.
--- NOTE | 2018-04-19 14:21 | PCM.SURG1 ---
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 knee arthrotomy. repair lateral ligfament (knee). aplx knee immobilizer. positiong of fluor/interptetation of video images Specimen/Specimens Removed: none Estimated Blood Loss: EBL {In ML}: 300 Blood Products Given: N/A Drains Used: Hemovac Post-Op Condition: Fair Date of Surgery/Procedure: 04/19/18 Time of Surgery/Procedure: 09:15 (time inroom anaetshesdia indcution time)
--- NOTE | 2018-04-19 14:43 | RAD ---
Date of service: 04/19/2018 PROCEDURE: Intraoperative Fluoroscopy. HISTORY: FX FEMUR FINDINGS: Fluoroscopic assistance was provided. Fluoroscopy time = 11.2 sec. Radiation dose = 0.39 mGy. Please refer to the operative report from JERRELL Rubin.
[2018-04-19] MEDS ORDERED: Morphine 4 MG/ML VIAL IVP PRN (14:51)
--- NOTE | 2018-04-19 14:57 | CP.PCM.PN ---
Subjective - Date & Time of Evaluation Date of Evaluation: 04/19/18 Time of Evaluation: 14:55 - Subjective Subjective: s/p ORIF Objective - Vital Signs/Intake and Output Vital Signs (last 24 hours): Temp Pulse Resp BP Pulse Ox 97.2 F L 80 14 120/46 L 100 04/19/18 11:10 04/19/18 14:19 04/19/18 14:19 04/19/18 14:19 04/19/18 14:19 Intake and Output: 04/19/18 04/19/18 06:59 18:59 Intake Total 1150 Balance 1150 - Medications Medications: Current Medications Acetaminophen (Tylenol 325mg Tab) 650 mg PO Q4 PRN PRN Reason: Pain, Mild (1-3) Amlodipine Besylate (Norvasc) 5 mg PO DAILY [facility] Last Admin: 04/18/18 08:41 Dose: 5 mg Aspirin (Aspirin Chewable) 81 mg PO DAILY [facility] Last Admin: 04/17/18 10:03 Dose: 81 mg Atorvastatin Calcium (Lipitor) 40 mg PO HS [facility] Last Admin: 04/18/18 21:12 Dose: 40 mg Bisacodyl (Dulcolax) 10 mg [place] DAILY PRN PRN Reason: Constipation Calcium/Vitamin D (Oyster Shell Calcium/Vitamin D 500 Mg-200 Iu) 1 tab PO DAILY [facility] Last Admin: 04/18/18 08:42 Dose: 1 tab Cyanocobalamin (Vitamin B12 1000 Mcg/Ml Inj) 1,000 mcg IM Q30D [facility] Docusate Sodium (Colace) 100 mg PO BID [facility] Duloxetine HCl (Cymbalta) 20 mg PO DAILY [facility] Last Admin: 04/18/18 08:40 Dose: 20 mg Enoxaparin Sodium (Lovenox) 40 mg SC DAILY [facility]; Protocol Ergocalciferol (Drisdol 50,000 Intl Units Cap) 1 cap PO WE [facility] Last Admin: 04/12/18 18:51 Dose: 1 cap Fentanyl (Duragesic) 1 patch TD Q72H [facility]; Protocol Last Admin: 04/18/18 09:24 Dose: 1 patch Gabapentin (Neurontin) 100 mg PO TID [facility] Last Admin: 04/18/18 17:36 Dose: 100 mg Vancomycin HCl 1 gm/ Sodium (Chloride) 250 mls @ 166.667 mls/hr IVPB DAILY [facility]; Protocol Last Admin: 04/18/18 08:42 Dose: 166.667 mls/hr Lactated Ringer's (Lactated Ringer's) 1,000 mls @ 100 mls/hr IV .Q10H [facility] Lactulose (Enulose) 20 gm PO BID [facility] Last Admin: 04/18/18 17:36 Dose: 20 gm Lamotrigine (Lamictal) 25 mg PO TID [facility] Last Admin: 04/18/18 17:36 Dose: 25 mg Magnesium Hydroxide (Milk Of Magnesia) 30 ml PO HS PRN PRN Reason: Constipation Meclizine HCl (Antivert) 12.5 mg PO TID [facility] Last Admin: 04/18/18 17:36 Dose: 12.5 mg Metoprolol Succinate (Toprol Xl) 25 mg PO DAILY [facility] Last Admin: 04/18/18 08:42 Dose: 25 mg Morphine Sulfate (Morphine) 2 mg IVP Q6 PRN PRN Reason: Pain, moderate (4-7) Last Admin: 04/17/18 13:09 Dose: 2 mg Morphine Sulfate (Morphine) 2 mg IVP Q6 PRN PRN Reason: Pain, severe (8-10) Nitroglycerin (Nitro-Dur 0.2 Mg/Hr Patch) 1 patch TD DAILY [facility] Last Admin: 04/18/18 08:41 Dose: 1 patch Ondansetron HCl (Zofran Inj) 4 mg IVP ONCE PRN PRN Reason: Nausea/Vomiting Oxycodone/Acetaminophen (Percocet 5/325 Mg Tab) 1 tab PO Q4 PRN PRN Reason: Pain, Mild (1-3) Stop: 04/22/18 11:05 Oxycodone/Acetaminophen (Percocet 5/325 Mg Tab) 2 tab PO Q4 PRN PRN Reason: Pain, moderate (4-7) Stop: 04/22/18 11:05 Potassium Chloride (Potassium Chloride Oral Soln) 20 meq PO BID [facility] Last Admin: 04/18/18 17:39 Dose: 20 meq - Labs Labs: 04/19/18 04:40 04/19/18 04:40 PT 13.8 Seconds (9.8-13.1) H 04/18/18 04:25 INR 1.2 04/18/18 04:25 APTT 26.4 Seconds (25.6-37.1) 04/18/18 04:25 - Constitutional Appears: Well - Head Exam Head Exam: ATRAUMATIC, NORMAL INSPECTION, NORMOCEPHALIC - Eye Exam Eye Exam: EOMI, Normal appearance, PERRL Pupil Exam: NORMAL ACCOMODATION, PERRL - ENT Exam ENT Exam: Mucous Membranes Moist, Normal Exam - Neck Exam Neck Exam: Full ROM, Normal Inspection. absent: Lymphadenopathy - Respiratory Exam Respiratory Exam: Clear to Ausculation Bilateral, NORMAL BREATHING PATTERN - Cardiovascular Exam Cardiovascular Exam: REGULAR RHYTHM, +S1, +S2, Murmur - GI/Abdominal Exam GI & Abdominal Exam: Soft, Normal Bowel Sounds. absent: Tenderness - Extremities Exam Extremities Exam: Full ROM, Normal Capillary Refill, Normal Inspection. absent: Joint Swelling, Pedal Edema - Back Exam Back Exam: NORMAL INSPECTION - Neurological Exam Neurological Exam: Alert, Awake, CN II-XII Intact, Normal Gait, Oriented x3 - Psychiatric Exam Psychiatric exam: Normal Affect, Normal Mood - Skin Skin Exam: Dry, Intact, Normal Color, Warm Assessment and Plan (1) Preop cardiovascular exam Assessment & Plan: tolerated ORIF well Status: Acute (2) Closed fracture of right distal femur Status: Acute (3) Severe dementia Status: Chronic (4) HTN (hypertension) Assessment & Plan: cont norvasc and metoprolol xl Status: Acute
[2018-04-19] MEDS: Ergocalciferol 50,000 Intl Units Cap PO SCH (17:26)
[2018-04-19] MEDS: Lactated Ringer's 1,000 ML IV SCH (17:27)
[2018-04-19] MEDS: Nitroglycerin 0.2 mg/hr Top Patch TD SCH (17:28)
[2018-04-19] MEDS: Calcium-Vit D 500 mg-200 Units Tab UD PO SCH (17:29)
[2018-04-19] MEDS: Potassium Chloride 20 mEq/15 ml LIQ UD PO SCH ×2 (17:29→17:30)
[2018-04-19] MEDS: Metoprolol Succinate 25 mg XL Tab PO SCH (17:30)
[2018-04-19 20:47] LABS: BASO % 0.2 % (0.0-2.0); EOS % 0.2 % (0.0-4.0); HEMOGLOBIN 11.4 g/dL (12.0-16.0); LYMPH # 0.6 K/uL (1.0-4.3); MEAN CELL VOLUME 88.6 fl (81.0-99.0); MEAN CORPUSCULAR HEMOGLOBIN 29.5 pg (27.0-31.0); MEAN CORPUSCULAR HGB CONC 33.3 g/dL (33.0-37.0); MEAN PLATELET VOLUME 9.4 fl (7.2-11.7); NEUT # 6.3 K/uL (1.8-7.0); NEUT % 79.6 % (50.0-75.0); PLATELET COUNT 174 K/uL (130-400); RBC 3.87 Mil/uL (3.80-5.20); RED CELL DISTRIBUTION WIDTH 14.7 % (11.5-14.5)
[2018-04-19 20:50] VITALS: O2SAT 100
[2018-04-19 21:08] LABS: INR 1.2; PROTHROMBIN TIME 13.5 Seconds (9.8-13.1)
[2018-04-19 22:05] LABS: PARTIAL THROMBOPLASTIN TIME 16.6 Seconds (25.6-37.1)
[2018-04-19 23:33] LABS: BANDS 2 % (0-2); LYMPHOCYTE 7 % (20-50); MONOCYTE 10 % (0-10); NEUTROPHIL 81 % (42-75); TOTAL CELLS COUNTED 100
[2018-04-19 23:34] LABS: ANISOCYTOSIS SLIGHT; HYPOCHROMIC SLIGHT; PLATELET ESTIMATE NORMAL (NORMAL)
[2018-04-20] MEDS: Lactated Ringer's 1,000 ML IV SCH ×2 (03:56→12:24)
[2018-04-20 05:50] LABS: HEMOGLOBIN 10.5 g/dL (12.0-16.0); MEAN CELL VOLUME 87.8 fl (81.0-99.0); MEAN CORPUSCULAR HEMOGLOBIN 29.7 pg (27.0-31.0); MEAN CORPUSCULAR HGB CONC 33.8 g/dL (33.0-37.0); RBC 3.53 Mil/uL (3.80-5.20); RED CELL DISTRIBUTION WIDTH 14.5 % (11.5-14.5); WHITE BLOOD COUNT 7.8 K/uL (4.8-10.8)
[2018-04-20 06:17] LABS: ALB/GLOB RATIO 0.9 (1.0-2.1); ALBUMIN 2.5 g/dL (3.5-5.0); ALT/SGPT 33 U/L (9-52); AST/SGOT 26 U/L (14-36); BLOOD UREA NITROGEN 13 mg/dl (7-17); GFR NON-AFRICAN AMERICAN > 60
--- NOTE | 2018-04-20 07:17 | OP ---
PROCEDURE DATE: 04/19/2018 PREOPERATIVE DIAGNOSIS: Displaced right distal third femur fracture. POSTOPERATIVE DIAGNOSIS: Displaced right distal third femur fracture. PROCEDURES PERFORMED: 1. Open reduction and internal fixation of displaced right distal third femur fracture. 2. Right knee arthrotomy. 3. Repair of lateral collateral ligament. 4. Application of knee immobilizer. 5. Positioning of fluoroscope interpretation of video images. SURGEON: Hector Barboza MD. FIELD SEISMOLOGIST: Isabela Fernández, Certified Registered Nursing Screwhead Polisher. ANESTHESIA: General endotracheal anesthesia, Dr. Zurdo Ramirez. COMPLICATIONS: No complications. DRAINS: One Hemovac drain. OPERATING INDICATIONS: Donya Laureano is a 89-year-old woman who is a resident of [facility], presents with marked pain and restricted range of motion of the knee. The patient was admitted to the hospital. The patient had a urinary tract infection which stabilized and is now taken to surgery. There is a question of possible delayed union, malunion of the distal third femur fracture. After having obtained informed consent, after having identified side, site and procedure and a critical pause/time-out and satisfactory induction of the anesthetic, the patient identified as Donya Laureano in the supine position with all bony prominence well padded. The right lower extremity was prepped and free draped in the usual fashion for lower extremity surgery. No tourniquet was employed. It was sterilely prepped and draped under the surgeon's direction. The fluoroscope was positioned. Video images were generated. Therapeutic decisions were made therefrom. The patient has marked restricted range of motion of both hips. Both hips were . There was evidence of a flexion contracture of the knee. An incision was described the mid aspect of the femur to the Gerdy's tubercle. The skin incision was insufflated with solution of 1:1000 epinephrine and 200 mL of saline. Skin incision was carried down through the skin and subcutaneous tissue. The incision was carried down to the Gerdy's tubercle. The fascia khris was identified. The fascia khris was divided and the vastus lateralis musculature was identified and elevated. This having been accomplished, Weitlaner retractors were placed and the fracture was curetted of healing callus with marked shortening. At this point in time, the femur was reduced. The distal fragment was identified and the proximal shaft stabilized with two K-wires in the distal fragment. The 6-hole distal femoral locking plate was employed. Drill hole was accomplished using drilling, followed by sounding with the depth gauge and the appropriate size screws placed. The reduction having been accomplished at this point in time, the distal aspect was addressed and each Collet was placed into the locking plate. The wires were introduced. Drilling was accomplished, sounding was accomplished, the appropriate size locking screws were placed. The remainder of the screws were placed as well. At this point in time, it was found to be a bit offset of the distal fragment. The proximal aspect of the distal fragment was reduced and it was held using two interrupted #5 FiberWire sutures and a lag screw. This was accomplished by drilling, sounding and over-drilling the original cortical aspect and the appropriate size screw was fixated. This having been accomplished, the wound was thoroughly irrigated. It should be noted that the knee arthrotomy had been accomplished exposure. The lateral collateral ligament was partially divided. This having been accomplished, primary repair of the lateral collateral ligament was accomplished with interrupted FiberWire. Closure of the arthrotomy using FiberWire. Closure of the fascia khris with #2 Quill followed by 0 Quill, 2-0 Vicryl, vickie for skin over an 8-inch suction Hemovac drain. Raheem Yang compression dressing was applied. Knee immobilizers were applied. Under the surgeon's direction, the fluoroscope was positioned, video images were generated, therapeutic decisions were made therefrom. Hector Barboza MD
[2018-04-20] MEDS ORDERED: Enoxaparin 40 mg Syringe SC SCH (09:00)
[2018-04-20] MEDS: Nitroglycerin 0.2 mg/hr Top Patch TD SCH (09:56)
[2018-04-20] MEDS: Calcium-Vit D 500 mg-200 Units Tab UD PO SCH (09:57)
[2018-04-20] MEDS: Potassium Chloride 20 mEq/15 ml LIQ UD PO SCH ×2 (10:04→17:03)
[2018-04-20] MEDS: Metoprolol Succinate 25 mg XL Tab PO SCH (10:05)
--- NOTE | 2018-04-20 10:29 | CP.PCM.PN ---
Subjective - Date & Time of Evaluation Date of Evaluation: 04/20/18 Time of Evaluation: 08:00 - Subjective Subjective: Patient seen and examined at bedside. More alert however confused/combative. Does not follow commands. No acute events overnight. Objective - Vital Signs/Intake and Output Vital Signs (last 24 hours): Temp Pulse Resp BP Pulse Ox 99.7 F H 122 H 22 119/54 L 100 04/20/18 08:00 04/20/18 10:05 04/20/18 10:00 04/20/18 10:05 04/20/18 10:00 Intake and Output: 04/20/18 04/20/18 06:59 18:59 Intake Total 1250 Output Total 380 Balance 870 - Medications Medications: Current Medications Acetaminophen (Tylenol 325mg Tab) 650 mg PO Q4 PRN PRN Reason: Pain, Mild (1-3) Amlodipine Besylate (Norvasc) 5 mg PO DAILY [facility] Last Admin: 04/20/18 09:57 Dose: 5 mg Aspirin (Aspirin Chewable) 81 mg PO DAILY [facility] Last Admin: 04/17/18 10:03 Dose: 81 mg Atorvastatin Calcium (Lipitor) 40 mg PO HS [facility] Last Admin: 04/19/18 21:07 Dose: 40 mg Bisacodyl (Dulcolax) 10 mg [place] DAILY PRN PRN Reason: Constipation Calcium/Vitamin D (Oyster Shell Calcium/Vitamin D 500 Mg-200 Iu) 1 tab PO DAILY [facility] Last Admin: 04/20/18 09:57 Dose: 1 tab Cyanocobalamin (Vitamin B12 1000 Mcg/Ml Inj) 1,000 mcg IM Q30D [facility] Docusate Sodium (Colace) 100 mg PO BID [facility] Last Admin: 04/20/18 09:54 Dose: 100 mg Duloxetine HCl (Cymbalta) 20 mg PO DAILY [facility] Last Admin: 04/20/18 09:55 Dose: 20 mg Enoxaparin Sodium (Lovenox) 40 mg SC DAILY [facility]; Protocol Last Admin: 04/20/18 09:56 Dose: 40 mg Ergocalciferol (Drisdol 50,000 Intl Units Cap) 1 cap PO WE [facility] Last Admin: 04/19/18 17:26 Dose: Not Given Fentanyl (Duragesic) 1 patch TD Q72H [facility]; Protocol Last Admin: 04/18/18 09:24 Dose: 1 patch Gabapentin (Neurontin) 100 mg PO TID [facility] Last Admin: 04/20/18 09:56 Dose: 100 mg Vancomycin HCl 1 gm/ Sodium (Chloride) 250 mls @ 166.667 mls/hr IVPB DAILY [facility]; Protocol Last Admin: 04/18/18 08:42 Dose: 166.667 mls/hr Lactated Ringer's (Lactated Ringer's) 1,000 mls @ 100 mls/hr IV .Q10H [facility] Last Admin: 04/20/18 03:56 Dose: 100 mls/hr Lactulose (Enulose) 20 gm PO BID [facility] Last Admin: 04/20/18 09:55 Dose: 20 gm Lamotrigine (Lamictal) 25 mg PO TID [facility] Last Admin: 04/20/18 09:55 Dose: 25 mg Magnesium Hydroxide (Milk Of Magnesia) 30 ml PO HS PRN PRN Reason: Constipation Meclizine HCl (Antivert) 12.5 mg PO TID [facility] Last Admin: 04/20/18 09:54 Dose: 12.5 mg Metoprolol Succinate (Toprol Xl) 25 mg PO DAILY [facility] Last Admin: 04/20/18 10:05 Dose: 25 mg Morphine Sulfate (Morphine) 2 mg IVP Q6 PRN PRN Reason: Pain, severe (8-10) Last Admin: 04/20/18 10:03 Dose: 2 mg Nitroglycerin (Nitro-Dur 0.2 Mg/Hr Patch) 1 patch TD DAILY [facility] Last Admin: 04/20/18 09:56 Dose: 1 patch Ondansetron HCl (Zofran Inj) 4 mg IVP ONCE PRN PRN Reason: Nausea/Vomiting Oxycodone/Acetaminophen (Percocet 5/325 Mg Tab) 1 tab PO Q4 PRN PRN Reason: Pain, Mild (1-3) Stop: 04/22/18 11:05 Oxycodone/Acetaminophen (Percocet 5/325 Mg Tab) 2 tab PO Q4 PRN PRN Reason: Pain, moderate (4-7) Stop: 04/22/18 11:05 Potassium Chloride (Potassium Chloride Oral Soln) 20 meq PO BID [facility] Last Admin: 04/20/18 10:04 Dose: 20 meq - Labs Labs: 04/20/18 04:40 04/20/18 04:40 PT 13.5 Seconds (9.8-13.1) H 04/19/18 20:30 INR 1.2 04/19/18 20:30 APTT 16.6 Seconds (25.6-37.1) L 04/19/18 20:30 - Extremities Exam Additional comments: RLE: Dressings CDI Hemovac in place with sanguineous minimal drainage knee imm in place unable to assess sensation motor intact EHL/FHL dopplerable DP pulses comps soft NT Assessment and Plan (1) Closed fracture of right distal femur Assessment & Plan: POD#1 s/p R distal femur ORIF -hemoac removed -pain control -PT/OT NWB RLE -DVT ppx -orthopedically stable -hemovac removed -L foot ulcer as per wound care -plan to d/c to [facility] -above d/w Dr. aBrboza in agreement Status: Acute
[2018-04-20 12:24] VITALS: BP 134/61; PULSE 95; RESP 21; TEMP 98.1
--- NOTE | 2018-04-20 13:42 | CP.PCM.PCO ---
Assessment/Plan - Assessment and Plan (Free Text) Assessment: Patient seen and examined. Awake and confused, patient has baseline dementia. Cleared by Orthopedic Dr Barboza, continue physical therapy as per their recommendations. Discussed with Dr Lara, labs WNL, vitals normal. Patient may return to senior living when arrangement made by Jane MCDONALD
--- NOTE | 2018-04-20 20:32 | CP.PCM.DIS ---
Provider - Provider Date of Admission: 04/11/18 23:06 Attending physician: Sj Lara MD Consults: 04/11/18 23:09 Orthopedic Consult Stat Comment: Consulting Provider: Hector Barboza III Consulting Physician: Hector Barboza III Reason for Consult: RIGHT distal femur fracture 04/12/18 10:00 Nursing Referral for Palliative Care Routine Comment: Consulting Provider: Roselyn Son Physician Instructions: Reason For Exam: As per Admission 04/12/18 10:24 Cardiology Consult Routine Comment: Consulting Provider: Juarez Varghese Consulting Physician: Juarez Varghese Reason for Consult: cardiac clearance 04/13/18 11:28 Infectious Disease Consult Routine Comment: Consulting Provider: Patel Larkin Consulting Physician: Patel Larkin Reason for Consult: bacteremia 04/17/18 20:02 Wound Care [Nursing Referral for Wound Care] Routine Comment: Physician Instructions: left heel blister Reason For Exam: sacrum linear wound,morales buttocks dry black blister 04/19/18 11:04 Case Management Referral Routine Comment: Physician Instructions: Reason For Exam: Reason for Referral: Discharge Planning Diagnosis - Discharge Diagnosis (1) Pathologic fracture of femur Status: Acute Priority: High (2) Right leg pain Status: Acute Priority: High (3) UTI (urinary tract infection) Status: Acute Priority: High (4) Severe dementia Status: Chronic Priority: High (5) HTN (hypertension) Status: Acute Priority: Medium (6) COPD (chronic obstructive pulmonary disease) Status: Chronic Priority: Medium (7) Osteoarthrosis involving multiple sites Status: Chronic Priority: Medium (8) Chronic back pain Status: Chronic Priority: Medium (9) Generalized weakness Status: Chronic Priority: High (10) Constipation Status: Chronic Priority: Medium (11) History of seizure Status: Chronic Priority: Medium Hospital Course - Lab Results Lab Results: Micro Results 04/19/18 17:11 Nose MRSA Culture (Admit) - Final MRSA NOT DETECTED 04/13/18 12:50 Blood Blood Culture - Final NO GROWTH AFTER 5 DAYS 04/13/18 12:50 Blood Gram Stain - Final TEST NOT PERFORMED 04/13/18 12:50 Blood Blood Culture - Final NO GROWTH AFTER 5 DAYS 04/13/18 12:50 Blood Gram Stain - Final TEST NOT PERFORMED 04/11/18 22:15 Blood-Venous Blood Culture - Final NO GROWTH AFTER 5 DAYS 04/11/18 22:15 Blood-Venous Gram Stain - Final TEST NOT PERFORMED 04/11/18 22:00 Blood-Venous S.aureus & Coag-Neg Staph PNA FISH - Final 04/11/18 22:00 Blood-Venous Blood Culture - Final Coagulase Neg Staphylococcus 04/11/18 22:00 Blood-Venous Gram Stain - Final 04/11/18 23:45 Urine,Catheterized Urine Culture - Final No Growth (<1,000 CFU/ML) Most Recent Lab Values WBC 7.8 K/uL (4.8-10.8) 04/20/18 04:40 RBC 3.53 Mil/uL (3.80-5.20) L 04/20/18 04:40 Hgb 10.5 g/dL (12.0-16.0) L 04/20/18 04:40 Hct 31.0 % (34.0-47.0) L 04/20/18 04:40 MCV 87.8 fl (81.0-99.0) 04/20/18 04:40 MCH 29.7 pg (27.0-31.0) 04/20/18 04:40 MCHC 33.8 g/dL (33.0-37.0) 04/20/18 04:40 RDW 14.5 % (11.5-14.5) 04/20/18 04:40 Plt Count 157 K/uL (130-400) 04/20/18 04:40 MPV 9.4 fl (7.2-11.7) 04/19/18 20:30 Neut % (Auto) 79.6 % (50.0-75.0) H 04/19/18 20:30 Lymph % (Auto) 7.0 % (20.0-40.0) L 04/19/18 20:30 [place] % (Auto) 13.0 % (0.0-10.0) H 04/19/18 20:30 Eos % (Auto) 0.2 % (0.0-4.0) 04/19/18 20:30 Baso % (Auto) 0.2 % (0.0-2.0) 04/19/18 20:30 Neut # (Auto) 6.3 K/uL (1.8-7.0) 04/19/18 20:30 Lymph # (Auto) 0.6 K/uL (1.0-4.3) L 04/19/18 20:30 [place] # (Auto) 1.0 K/uL (0.0-0.8) H 04/19/18 20:30 Eos # (Auto) 0.0 K/uL (0.0-0.7) 04/19/18 20:30 Baso # (Auto) 0.0 K/uL (0.0-0.2) 04/19/18 20:30 Neutrophils % (Manual) 81 % (42-75) H 04/19/18 20:30 Band Neutrophils % 2 % (0-2) 04/19/18 20:30 Lymphocytes % (Manual) 7 % (20-50) L 04/19/18 20:30 Monocytes % (Manual) 10 % (0-10) 04/19/18 20:30 Platelet Estimate Normal (NORMAL) 04/19/18 20:30 Hypochromasia (manual) Slight 04/19/18 20:30 Anisocytosis (manual) Slight 04/19/18 20:30 ESR 70 mm/hr (0-30) H 04/14/18 04:25 PT 13.5 Seconds (9.8-13.1) H 04/19/18 20:30 INR 1.2 04/19/18 20:30 APTT 16.6 Seconds (25.6-37.1) L 04/19/18 20:30 pO2 41 mm/Hg (30-55) 04/11/18 22:23 VBG pH 7.49 (7.32-7.43) H 04/11/18 22:23 VBG pCO2 43 mmHg (40-60) 04/11/18 22:23 VBG HCO3 31.1 mmol/L 04/11/18 22:23 VBG Total CO2 34.1 mmol/L (22-28) H 04/11/18 22:23 VBG O2 Sat (Calc) 82.8 % (40-65) H 04/11/18 22:23 VBG Base Excess 8.5 mmol/L (0.0-2.0) H 04/11/18 22:23 Sodium 179.0 mmol/L (132-148) H* 04/11/18 22:23 Chloride 117.0 mmol/L (98-107) H 04/11/18 22:23 Glucose 153 mg/dL (65-105) H 04/11/18 22:23 Lactate 1.8 mmol/L (0.7-2.1) 04/11/18 22:23 FiO2 21.0 % 04/11/18 22:23 Crit Value Called To Dr marty perez 04/11/18 22:23 Crit Value Called By [id number] 04/11/18 22:23 Crit Value Read Back Y 04/11/18 22:23 Blood Gas Notified Time 222504/11/18 22:23 Sodium 140 mmol/l (132-148) 04/20/18 04:40 Potassium 3.9 MMOL/L (3.6-5.0) 04/20/18 04:40 Chloride 105 mmol/L (98-107) 04/20/18 04:40 Carbon Dioxide 30 mmol/L (22-30) 04/20/18 04:40 Anion Gap 9 (10-20) L 04/20/18 04:40 BUN 13 mg/dl (7-17) 04/20/18 04:40 Creatinine 0.4 mg/dl (0.7-1.2) L 04/20/18 04:40 Est GFR ( Amer) > 60 04/20/18 04:40 Est GFR (Non-Af Amer) > 60 04/20/18 04:40 POC Glucose (mg/dL) 156 mg/dL (65-110) H 04/12/18 00:10 Random Glucose 124 mg/dL (65-105) H 04/20/18 04:40 Calcium 8.0 mg/dL (8.4-10.2) L 04/20/18 04:40 Total Bilirubin 1.8 mg/dl (0.2-1.3) H 04/20/18 04:40 AST 26 U/L (14-36) 04/20/18 04:40 ALT 33 U/L (9-52) 04/20/18 04:40 Alkaline Phosphatase 74 U/L (38-126) 04/20/18 04:40 Total Protein 5.3 G/DL (6.3-8.2) L 04/20/18 04:40 Albumin 2.5 g/dL (3.5-5.0) L D 04/20/18 04:40 Globulin 2.8 gm/dL (2.2-3.9) 04/20/18 04:40 Albumin/Globulin Ratio 0.9 (1.0-2.1) L 04/20/18 04:40 Procalcitonin < 0.05 NG/ML (0.19-0.49) L 04/14/18 04:25 Urine Color Yellow (YELLOW) 04/11/18 23:55 Urine Clarity Cloudy (Clear) 04/11/18 23:55 Urine pH 5.0 (5.0-8.0) 04/11/18 23:55 Ur Specific [place] 1.029 (1.003-1.030) 04/11/18 23:55 Urine Protein 30 mg/dL (NEGATIVE) 04/11/18 23:55 Urine Glucose (UA) Neg mg/dL (NEGATIVE) 04/11/18 23:55 Urine Ketones Negative mg/dL (NEGATIVE) 04/11/18 23:55 Urine Blood Negative (NEGATIVE) 04/11/18 23:55 Urine Nitrate Negative (NEGATIVE) 04/11/18 23:55 Urine Bilirubin Negative (NEGATIVE) 04/11/18 23:55 Urine Urobilinogen 4.0 mg/dL (0.2-1.0) H 04/11/18 23:55 Ur Leukocyte Esterase Mod Suhas/uL (Negative) 04/11/18 23:55 Urine RBC (Auto) 8 /hpf (0-3) H 04/11/18 23:55 Urine Microscopic WBC 41 /hpf (0-5) H 04/11/18 23:55 Ur Squamous Epith Cells 7 /hpf (0-5) H 04/11/18 23:55 Urine Bacteria Occ (<OCC) H 04/11/18 23:55 Vancomycin Trough < 5.0 ug/mL (5.0-10.0) L 04/20/18 04:40 Valproic Acid 27.6 ug/mL (50.0-100.0) L 04/11/18 22:20 Influenza Typ A,B (EIA) Negative for flu a/b (NEGATIVE) 04/11/18 23:40 Blood Type O POSITIVE 04/18/18 05:30 Antibody Screen Negative 04/18/18 05:30 Crossmatch See Detail 04/18/18 05:30 BBK History Checked Patient has bt 04/18/18 05:30 Discharge Exam - Head Exam Head Exam: NORMAL INSPECTION Discharge Plan - Follow Up Plan Condition: SERIOUS Disposition: HOME/ ROUTINE Instructions: Femur Fracture (DC), Sepsis, Adult (DC) Additional Instructions: DUE TO VOID [id number] NON WEIGHT BEARING RIGHT LEG was on heart healthy diet at [facility] was on puree nectar thick at [facility], have md evaluate Referrals: Hector Barboza III, MD [Staff Provider] - Sj Lara MD [Staff Provider] -
== END 2018-04-20 20:00 | DRG 481 ==
LOC: H.ER 21:05 → H.ERHOLD 23:06 → H.TEL 04-12 02:12 → H.ICU/CCU 04-19 13:19
PROVIDERS: ADMIT Internal Medicine Pulmonary Disease; ATTEND Internal Medicine Pulmonary Disease
PROC: 0MQN0ZZ Repair Right Knee Bursa and Ligament, Open Approach (ICD-10-PCS; 2018-04-19)
PROC: 30233N1 Transfusion of Nonautologous Red Blood Cells into Peripheral Vein, Percutaneous Approach (ICD-10-PCS; 2018-04-19)
PROC: 0QSB04Z Reposition Right Lower Femur with Internal Fixation Device, Open Approach (ICD-10-PCS; principal; 2018-04-19 10:45)
DX: M84.451A Pathological fracture, right femur, initial encounter for fracture (principal); I50.32 Chronic diastolic (congestive) heart failure; N39.0 Urinary tract infection, site not specified; I11.0 Hypertensive heart disease with heart failure; F03.90 Unspecified dementia, unspecified severity, without behavioral disturbance, psychotic disturbance, mood disturbance, and anxiety; M17.11 Unilateral primary osteoarthritis, right knee; K59.09 Other constipation; G89.29 Other chronic pain; M54.5 Low back pain; J44.9 Chronic obstructive pulmonary disease, unspecified; E78.5 Hyperlipidemia, unspecified; E78.00 Pure hypercholesterolemia, unspecified; G40.909 Epilepsy, unspecified, not intractable, without status epilepticus; D64.9 Anemia, unspecified; M81.0 Age-related osteoporosis without current pathological fracture; L97.529 Non-pressure chronic ulcer of other part of left foot with unspecified severity; Z95.1 Presence of aortocoronary bypass graft; Z88.0 Allergy status to penicillin

== ENCOUNTER 2018-05-20 11:32 | Inpatient (IN) | payer MEDICARE, MEDICAID ==
[2018-05-20 11:32] VITALS: BMI 21.5
[2018-05-20] MEDS ORDERED: Sodium Chloride 0.9% 1,000 ML IV STA (11:43)
[2018-05-20 12:00] LABS: ABG ALLEN TEST YES; ARTERIAL BLOOD GAS HCO3 30.8 mmol/L (21-28); ARTERIAL BLOOD GAS O2 SAT 99.5 % (95-98); ARTERIAL BLOOD GAS PCO2 39 mm/Hg (35-45); ARTERIAL BLOOD GAS PH 7.51 (7.35-7.45); ARTERIAL BLOOD GAS PO2 90 mm/Hg (80-100); ARTERIAL BLOOD GAS TCO2 32.3 mmol/L (22-28)
--- NOTE | 2018-05-20 12:39 | RAD ---
Date of service: 05/20/2018 HISTORY: AMS COMPARISON: Chest radiograph dated 04/11/2018. FINDINGS: LUNGS: Stable chronic prominence of the bilateral interstitial markings. PLEURA: No significant pleural effusion identified, no pneumothorax apparent. CARDIOVASCULAR: Aortic atherosclerotic calcifications. Cardiomediastinal silhouette stably enlarged OSSEOUS STRUCTURES: Unchanged. Prior lumbar vertebral augmentation VISUALIZED UPPER ABDOMEN: Normal. OTHER FINDINGS: None. IMPRESSION: No active disease.
--- NOTE | 2018-05-20 12:59 | CT ---
Date of service: 05/20/2018 PROCEDURE: CT HEAD WITHOUT CONTRAST. HISTORY: ams COMPARISON: Chest radiograph dated 05/20/2017 TECHNIQUE: Axial computed tomography images were obtained through the head/brain without intravenous contrast. Radiation dose: Total exam DLP = 855.1 mGy-cm. This CT exam was performed using one or more of the following dose reduction techniques: Automated exposure control, adjustment of the mA and/or kV according to patient size, and/or use of iterative reconstruction technique. FINDINGS: HEMORRHAGE: No intracranial hemorrhage. BRAIN: No mass effect or edema. Atrophy. Chronic microvascular ischemic changes. VENTRICLES: Unremarkable. No hydrocephalus. CALVARIUM: Unremarkable. PARANASAL SINUSES: Secretions in both sphenoid sinuses. MASTOID AIR CELLS: Unremarkable as visualized. No inflammatory changes. OTHER FINDINGS: None. IMPRESSION: No acute intracranial pathology. Age-related changes. Mild sphenoid sinus disease. No significant interval change.
--- NOTE | 2018-05-20 13:01 | ED PDOC ---
HPI: General Adult Time Seen by Provider: 05/20/18 11:38 Chief Complaint (Provider): AMS History Per: EMS, Other ( [place] paperwork) History/Exam Limitations: clinical condition, physical impairment Onset/Duration Of Symptoms: Unknown Current Symptoms Are (Timing): Still Present Severity: Severe Recently: Treated By A Physician, Hospitalized Additional Complaint(s): 83yo female arrives with EMS from [facility] for AMS. Per report more neisha nolent and now possible fever. No reports vomiting, diarrhea or recent seizures. History limited as patient is nonverbal and obtunded. I called son Steve Laureano, lives in [place], states hasnt seen mother since "last year", will talk on phone intermittently but shes "hard of hearing". Reports she is normally communicative. Per [place] paperwork patient is full code. Per son, he wants all measures taken to sustain life including proceures, intubation, CPR, fluids and antibiotics as needed. Prior charts reviewed, admitted last month for pathologic femur fracture s/p ORIF. Past Medical History Reviewed: Historical Data, Nursing Documentation, Vital Signs Vital Signs: Last Vital Signs Temp 101.4 F H 05/20/18 11:35 Pulse 136 H 05/20/18 11:35 Resp 18 05/20/18 11:35 BP 118/76 05/20/18 11:35 Pulse Ox 96 05/20/18 11:35 - Medical History PMH: Anemia, Anxiety, Arthritis (poly), Asthma, Back Problems, CHF, COPD, Dementia, Depression, Fractures (L wrist , comp Fx T Spine), HTN, Hypercholesterolemia, Osteoporosis, Seizures Denies: HIV, Chronic Kidney Disease - Surgical History Surgical History: CABG - Family History Family History: States: Unknown Family Hx, CAD - Immunization History Hx Tetanus Toxoid Vaccination: No - Home Medications Home Medications: Ambulatory Orders Medication Instructions Recorded Acetaminophen [Tylenol 325mg tab] 650 mg PO Q4H PRN 05/06/17 Atorvastatin [Lipitor] 40 mg PO HS 05/06/17 Bisacodyl [Fast Relief Laxative] 1 supp NE DAILY PRN 05/06/17 Cyanocobalamin [Vitamin B12 1000 1,000 mcg IM Q30D 05/06/17 mcg/ml Inj] Ergocalciferol (Vitamin D2) 50,000 unit PO WE 05/06/17 [Vitamin D2] Gabapentin [Neurontin] 100 mg PO TID 05/06/17 Meclizine [Antivert] 12.5 mg PO TID 05/06/17 lamoTRIgine [Lamictal] 25 mg PO TID 05/06/17 Calcium/Vitamin D [Oyster Shell 1 tab PO DAILY tab 05/23/17 Calcium/Vitamin D 500 mg-200 IU] Acetaminophen [Tylenol 650 mg Supp] 650 mg PO Q4H PRN 05/25/17 Aspirin [Ecotrin] 81 mg PO DAILY 05/25/17 DULoxetine [Cymbalta] 20 mg PO DAILY 05/25/17 Lactulose [Generlac] 20 gm PO BID 05/25/17 Magnesium Hydroxide [Milk Of 30 ml PO HS PRN 05/25/17 Magnesia] Nitroglycerin 0.2 mg/hr [Nitro-Dur 1 patch TD DAILY 05/25/17 0.2 mg/hr Patch] fentaNYL 12 mcg/hr [Duragesic 1 patch TD Q72H 05/25/17 Patch 12 mcg/hr] amLODIPine [Norvasc] 5 mg PO DAILY tab 06/03/17 Budesonide/Formoterol Fumarate 10.2 g INH Q12 04/12/18 [Symbicort 160-4.5 Mcg Inhaler] Potassium Chloride [Potassium 20 meq PO BID 04/12/18 Chloride Oral Soln] Docusate [Colace] 100 mg PO BID cap 04/20/18 - Allergies Allergies/Adverse Reactions: Allergies Allergy/AdvReac Type Severity Reaction Status Date / Time Penicillins Allergy RASH Verified 05/25/17 12:15 Review of Systems Review Of Systems: ROS cannot be obtained secondary to pt's inabilty to answer questions. Physical Exam - Reviewed Nursing Documentation Reviewed: Yes Vital Signs Reviewed: Yes - Physical Exam Appears: Positive for: Uncomfortable (ill appearing, elderly GCS 7-8) Head Exam: Positive for: ATRAUMATIC, NORMAL INSPECTION, NORMOCEPHALIC Skin: Positive for: Normal Color, Warm, DRY Eye Exam: Positive for: EOMI, Normal appearance, PERRL ENT: Positive for: Normal ENT Inspection Neck: Positive for: Normal, Painless ROM Cardiovascular/Chest: Positive for: Regular Rate, Rhythm Respiratory: Positive for: CNT, Normal Breath Sounds Gastrointestinal/Abdominal: Positive for: Soft Back: Positive for: Other (stage IV sacral decubiti, pressure wound thoracic) Extremity: Positive for: Other (R knee/femur in immobilizer) Neurologic/Psych: Positive for: Other (obtunded, contracted) - Laboratory Results Result Diagrams: 05/20/18 13:00 05/20/18 13:00 Lab Results: pCO2 39 mm/Hg (35-45) 05/20/18 11:45 pO2 90 mm/Hg (80-100) 05/20/18 11:45 HCO3 30.8 mmol/L (21-28) H 05/20/18 11:45 ABG pH 7.51 (7.35-7.45) H 05/20/18 11:45 ABG Total CO2 32.3 mmol/L (22-28) H 05/20/18 11:45 ABG O2 Saturation 99.5 % (95-98) H 05/20/18 11:45 ABG Base Excess 7.5 mmol/L (-2.0-3.0) H 05/20/18 11:45 Oswaldo Test Yes 05/20/18 11:45 ABG Potassium 3.7 mmol/L (3.6-5.2) 05/20/18 11:45 A-a O2 Difference 574.0 mm/Hg 05/20/18 11:45 Sodium 163.0 mmol/L (132-148) H* 05/20/18 11:45 Chloride 125.0 mmol/L (98-107) H 05/20/18 11:45 Glucose 191 mg/dL (65-105) H 05/20/18 11:45 Lactate 3.9 mmol/L (0.7-2.1) H 05/20/18 11:45 Vent Mode 100% nrb 05/20/18 11:45 FiO2 100.0 % 05/20/18 11:45 Crit Value Called To maynor Alves do 05/20/18 11:45 Crit Value Called By Bozena coffey 05/20/18 11:45 Crit Value Read Back Y 05/20/18 11:45 Blood Gas Notified Time 1159 05/20/18 11:45 - ECG O2 Sat by Pulse Oximetry: 96 Pulse Ox Interpretation: Normal - Physician Consult Information Time Consulting Physican Contacted: 14:30 Physician Contacted: Jeremie Cerda (ICU) Outcome Of Conversation: saw pt in ED - Critical Care Total Time (In Min): 75 Comments: pt required immediate bedside attention Medical Decision Making Medical Decision Making: patient maintaining saturation on NRB 100% febrile- septic workup initiated IVF bolus ordered lactate elev 3.9 CT brain ordered stat Fentanyl and nitro patches to chest wall removed, could be contributing to AMS, narcan 0.2mg IV ordered to improve resp drive. 1216 FINDINGS: LUNGS: Stable chronic prominence of the bilateral interstitial markings. PLEURA: No significant pleural effusion identified, no pneumothorax apparent. CARDIOVASCULAR: Aortic atherosclerotic calcifications. Cardiomediastinal silhouette stably enlarged OSSEOUS STRUCTURES: Unchanged. Prior lumbar vertebral augmentation VISUALIZED UPPER ABDOMEN: Normal. OTHER FINDINGS: None. IMPRESSION: No active disease. 1255 CT Head FINDINGS: HEMORRHAGE: No intracranial hemorrhage. BRAIN: No mass effect or edema. Atrophy. Chronic microvascular ischemic changes. VENTRICLES: Unremarkable. No hydrocephalus. CALVARIUM: Unremarkable. PARANASAL SINUSES: Secretions in both sphenoid sinuses. MASTOID AIR CELLS: Unremarkable as visualized. No inflammatory changes. OTHER FINDINGS: None. IMPRESSION: No acute intracranial pathology. Age-related changes. Mild sphenoid sinus disease. No significant interval change. labs reviewed reveal elev lactate, elev WBC, severe hyponatremia and azotemia ABG normal ventilation slight hypoxia but maintaining sats on NRB and no secretions, would prefer to avoid intubation as possible difficult wean IVF changed to 1/2 NS load w keppra PCN allergy, levoquin and vancomycin initiated weight adjusted for small body habitus Dr Cerda ICU eval patient in ED agrees w plan per son he does not want other contact Nellie Courtney involved in care. Full code per son D/w Dr Lara PMD agrees w plan Significant back and sacral decubiti would make LP likely contraindicated if were to be meningitis. discussed results w son Steve in [place] at 250p note second lactate delayed difficulty obtaining blood Disposition - Clinical Impression Clinical Impression: Altered mental status, Sepsis - Patient ED Disposition Is Patient to be Admitted: Yes Counseled Patient/Family Regarding: Studies Performed - Disposition Disposition Time: 14:25 Condition: CRITICAL - POA Present On Arrival: Pressure Ulcer
[2018-05-20] MEDS ORDERED: Naloxone 0.4 mg/ml Inj (Adult) IVP ONE (13:05)
[2018-05-20 13:22] LABS: PARTIAL THROMBOPLASTIN TIME 30.8 Seconds (25.6-37.1)
[2018-05-20 13:34] LABS: BASO % 0.2 % (0.0-2.0); HEMOGLOBIN 13.9 g/dL (12.0-16.0); LYMPH # 0.4 K/uL (1.0-4.3); LYMPH % 2.7 % (20.0-40.0); MEAN CELL VOLUME 94.7 fl (81.0-99.0); MEAN CORPUSCULAR HEMOGLOBIN 28.6 pg (27.0-31.0); MEAN CORPUSCULAR HGB CONC 30.2 g/dL (33.0-37.0); MEAN PLATELET VOLUME 11.9 fl (7.2-11.7); MONO # 0.7 K/uL (0.0-0.8); MONO % 5.3 % (0.0-10.0); NEUT # 12.8 K/uL (1.8-7.0); NEUT % 91.8 % (50.0-75.0); NRBC % 0.1 % (0.0-0.0); PLATELET COUNT 228 K/uL (130-400); RBC 4.86 Mil/uL (3.80-5.20); RED CELL DISTRIBUTION WIDTH 18.6 % (11.5-14.5); WHITE BLOOD COUNT 13.9 K/uL (4.8-10.8)
[2018-05-20 13:53] LABS: ALB/GLOB RATIO 0.8 (1.0-2.1); ALBUMIN 3.5 g/dL (3.5-5.0); CALCIUM 9.2 mg/dL (8.4-10.2)
[2018-05-20] MEDS ORDERED: Sodium Chloride 0.45% 1,000 ML IV SCH (14:00)
[2018-05-20 14:34] LABS: INR 1.8
[2018-05-20] MEDS ORDERED: levETIRAcetam 500 MG in Sodium Chloride 0.9% 100 ML IVPB ONE (14:37)
[2018-05-20 15:05] LABS: SQUAMOUS EPITHIAL 3 /hpf (0-5); URINE AMORPHOUS SEDIMENT OCC /ul (<OCC); URINE BACTERIA OCC (<OCC); URINE BILIRUBIN SMALL (NEGATIVE); URINE BLOOD NEGATIVE (NEGATIVE); URINE COLOR AMBER (YELLOW); URINE GLUCOSE (UA) NEG (NEGATIVE); URINE LEUKOCYTE ESTERASE NEG Leu/uL (Negative); URINE PROTEIN >=500 mg/dL (NEGATIVE)
--- NOTE | 2018-05-20 15:08 | CP.CCUPN ---
CCU Subjective - Physician Review Events Since Last Encounter (Free Text): 83 female with history of dementia, COPD, CHF, HTN, decubitus ulcer, seizer, Rt femur fracture s/p surgery brought from [facility] by [facility] for AMS, lethargy, fever, events reviewed CCU Objective - Vital Signs / Intake & Output Vital Signs (Last 4 hours): Vital Signs Temp Pulse Resp BP Pulse Ox 05/20/18 14:58 96 05/20/18 14:55 99.9 F H 05/20/18 14:35 112 H 29 H 116/64 100 05/20/18 14:15 115 H 30 H 126/64 100 05/20/18 14:00 119 H 28 H 123/62 100 05/20/18 13:30 125 H 32 H 123/64 100 05/20/18 12:00 132 H 29 H 127/74 95 05/20/18 11:45 140 H 30 H 119/77 91 L 05/20/18 11:35 101.4 F H 136 H 18 118/76 96 Intake and Output (Last 8hrs): Intake & Output 05/20/18 05/20/18 05/20/18 06:59 14:59 22:59 Weight 90 lb - Physical Exam Head: Positive for: Atraumatic, Normocephalic Pupils: Positive for: PERRL Conjunctiva: Positive for: Normal Mouth: Positive for: Dry Nose (External): Positive for: Atraumatic Neck: Positive for: Normal Range of Motion Respiratory/Chest: Positive for: Rhonchi Cardiovascular: Positive for: Tachycardic Abdomen: Positive for: Normal Bowel Sounds Upper Extremity: Positive for: Normal Inspection Lower Extremity: Positive for: Normal Inspection Neurological: Positive for: Other (no response to verbal stimuli) - Medications Active Medications: Active Medications Generic Name Dose Route Start Last Admin Trade Name Freq PRN Reason Stop Dose Admin Levofloxacin/Dextrose 500 mg in 100 mls @ 100 mls/hr 05/21/18 09:00 Levaquin 500mg IVPB DAILY BELLE Protocol Sodium Chloride 1,000 mls @ 1,000 mls/hr 05/20/18 14:00 Sodium Chloride 0.45% IV 05/21/18 13:59 .Q1H BELLE Levetiracetam 500 mg/ Sodium 105 mls @ 210 mls/hr 05/20/18 14:37 Chloride IVPB 05/20/18 15:06 ONCE ONE - Patient Studies Lab Studies: Lab Studies 05/20/18 05/20/18 05/20/18 Range/Units 13:00 13:00 13:00 WBC (4.8-10.8) K/uL RBC (3.80-5.20) Mil/uL Hgb (12.0-16.0) g/dL Hct (34.0-47.0) % MCV (81.0-99.0) fl MCH (27.0-31.0) pg MCHC (33.0-37.0) g/dL RDW (11.5-14.5) % Plt Count (130-400) K/uL MPV (7.2-11.7) fl Neut % (Auto) (50.0-75.0) % Lymph % (Auto) (20.0-40.0) % Appling % (Auto) (0.0-10.0) % Eos % (Auto) (0.0-4.0) % Baso % (Auto) (0.0-2.0) % Neut # (Auto) (1.8-7.0) K/uL Lymph # (Auto) (1.0-4.3) K/uL Appling # (Auto) (0.0-0.8) K/uL Eos # (Auto) (0.0-0.7) K/uL Baso # (Auto) (0.0-0.2) K/uL PT 20.0 H (9.8-13.1) Seconds INR 1.8 APTT 30.8 (25.6-37.1) Seconds pCO2 (35-45) mm/Hg pO2 (80-100) mm/Hg HCO3 (21-28) mmol/L ABG pH (7.35-7.45) ABG Total CO2 (22-28) mmol/L ABG O2 Saturation (95-98) % ABG Base Excess (-2.0-3.0) mmol/L Oswaldo Test ABG Potassium (3.6-5.2) mmol/L A-a O2 Difference mm/Hg Sodium 166 H* (132-148) mmol/L Chloride 118 H (98-107) mmol/L Glucose (65-105) mg/dL Lactate (0.7-2.1) mmol/L Vent Mode FiO2 % Crit Value Called To Crit Value Called By Crit Value Read Back Blood Gas Notified Time Potassium 4.3 (3.6-5.0) MMOL/L Carbon Dioxide 29 (22-30) mmol/L Anion Gap 23 H (10-20) BUN 77 H (7-17) mg/dl Creatinine 1.1 (0.7-1.2) mg/dl Est GFR ( Amer) 57 Est GFR (Non-Af Amer) 47 POC Glucose (mg/dL) (65-110) mg/dL Random Glucose 182 H (65-105) mg/dL Calcium 9.2 (8.4-10.2) mg/dL Phosphorus 4.3 (2.5-4.5) mg/dl Magnesium 3.2 H (1.6-2.3) MG/DL Total Bilirubin 1.7 H (0.2-1.3) mg/dl AST 62 H D (14-36) U/L ALT 23 (9-52) U/L Alkaline Phosphatase 131 H D (38-126) U/L Total Protein 7.7 (6.3-8.2) G/DL Albumin 3.5 D (3.5-5.0) g/dL Globulin 4.2 H (2.2-3.9) gm/dL Albumin/Globulin Ratio 0.8 L (1.0-2.1) Lipase 15 L (23-300) U/L Arterial Blood Potassium (3.6-5.2) mmol/L Influenza Typ A,B (EIA) Negative for flu a/b (NEGATIVE) 05/20/18 05/20/18 05/20/18 Range/Units 13:00 12:35 11:45 WBC 13.9 H D (4.8-10.8) K/uL RBC 4.86 (3.80-5.20) Mil/uL Hgb 13.9 D (12.0-16.0) g/dL Hct 46.0 (34.0-47.0) % MCV 94.7 D (81.0-99.0) fl MCH 28.6 (27.0-31.0) pg MCHC 30.2 L (33.0-37.0) g/dL RDW 18.6 H (11.5-14.5) % Plt Count 228 (130-400) K/uL MPV 11.9 H (7.2-11.7) fl Neut % (Auto) 91.8 H (50.0-75.0) % Lymph % (Auto) 2.7 L (20.0-40.0) % Appling % (Auto) 5.3 (0.0-10.0) % Eos % (Auto) 0.0 (0.0-4.0) % Baso % (Auto) 0.2 (0.0-2.0) % Neut # (Auto) 12.8 H (1.8-7.0) K/uL Lymph # (Auto) 0.4 L (1.0-4.3) K/uL Appling # (Auto) 0.7 (0.0-0.8) K/uL Eos # (Auto) 0.0 (0.0-0.7) K/uL Baso # (Auto) 0.0 (0.0-0.2) K/uL PT (9.8-13.1) Seconds INR APTT (25.6-37.1) Seconds pCO2 39 (35-45) mm/Hg pO2 90 (80-100) mm/Hg HCO3 30.8 H (21-28) mmol/L ABG pH 7.51 H (7.35-7.45) ABG Total CO2 32.3 H (22-28) mmol/L ABG O2 Saturation 99.5 H (95-98) % ABG Base Excess 7.5 H (-2.0-3.0) mmol/L Oswaldo Test Yes ABG Potassium 3.7 (3.6-5.2) mmol/L A-a O2 Difference 574.0 mm/Hg Sodium 163.0 H* (132-148) mmol/L Chloride 125.0 H (98-107) mmol/L Glucose 191 H (65-105) mg/dL Lactate 3.9 H (0.7-2.1) mmol/L Vent Mode 100% nrb FiO2 100.0 % Crit Value Called To maynor Alves do Crit Value Called By Bozena coffey Crit Value Read Back Y Blood Gas Notified Time 1159 Potassium (3.6-5.0) MMOL/L Carbon Dioxide (22-30) mmol/L Anion Gap (10-20) BUN (7-17) mg/dl Creatinine (0.7-1.2) mg/dl Est GFR ( Amer) Est GFR (Non-Af Amer) POC Glucose (mg/dL) 187 H (65-110) mg/dL Random Glucose (65-105) mg/dL Calcium (8.4-10.2) mg/dL Phosphorus (2.5-4.5) mg/dl Magnesium (1.6-2.3) MG/DL Total Bilirubin (0.2-1.3) mg/dl AST (14-36) U/L ALT (9-52) U/L Alkaline Phosphatase (38-126) U/L Total Protein (6.3-8.2) G/DL Albumin (3.5-5.0) g/dL Globulin (2.2-3.9) gm/dL Albumin/Globulin Ratio (1.0-2.1) Lipase (23-300) U/L Arterial Blood Potassium 3.7 (3.6-5.2) mmol/L Influenza Typ A,B (EIA) (NEGATIVE) Laboratory Results - last 24 hr 05/20/18 05/20/18 05/20/18 11:45 12:35 13:00 WBC 13.9 H D RBC 4.86 Hgb 13.9 D Hct 46.0 MCV 94.7 D MCH 28.6 MCHC 30.2 L RDW 18.6 H Plt Count 228 MPV 11.9 H Neut % (Auto) 91.8 H Lymph % (Auto) 2.7 L Appling % (Auto) 5.3 Eos % (Auto) 0.0 Baso % (Auto) 0.2 Neut # (Auto) 12.8 H Lymph # (Auto) 0.4 L Appling # (Auto) 0.7 Eos # (Auto) 0.0 Baso # (Auto) 0.0 PT INR APTT pCO2 39 pO2 90 HCO3 30.8 H ABG pH 7.51 H ABG Total CO2 32.3 H ABG O2 Saturation 99.5 H ABG Base Excess 7.5 H Oswaldo Test Yes ABG Potassium 3.7 A-a O2 Difference 574.0 Sodium 163.0 H* Chloride 125.0 H Glucose 191 H Lactate 3.9 H Vent Mode 100% nrb FiO2 100.0 Crit Value Called To maynor Alves do Crit Value Called By Bozena coffey Crit Value Read Back Y Blood Gas Notified Time 1159 Potassium Carbon Dioxide Anion Gap BUN Creatinine Est GFR ( Amer) Est GFR (Non-Af Amer) POC Glucose (mg/dL) 187 H Random Glucose Calcium Phosphorus Magnesium Total Bilirubin AST ALT Alkaline Phosphatase Total Protein Albumin Globulin Albumin/Globulin Ratio Lipase Arterial Blood Potassium 3.7 Influenza Typ A,B (EIA) 05/20/18 05/20/18 05/20/18 13:00 13:00 13:00 WBC RBC Hgb Hct MCV MCH MCHC RDW Plt Count MPV Neut % (Auto) Lymph % (Auto) Appling % (Auto) Eos % (Auto) Baso % (Auto) Neut # (Auto) Lymph # (Auto) Appling # (Auto) Eos # (Auto) Baso # (Auto) PT 20.0 H INR 1.8 APTT 30.8 pCO2 pO2 HCO3 ABG pH ABG Total CO2 ABG O2 Saturation ABG Base Excess Oswaldo Test ABG Potassium A-a O2 Difference Sodium 166 H* Chloride 118 H Glucose Lactate Vent Mode FiO2 Crit Value Called To Crit Value Called By Crit Value Read Back Blood Gas Notified Time Potassium 4.3 Carbon Dioxide 29 Anion Gap 23 H BUN 77 H Creatinine 1.1 Est GFR ( Amer) 57 Est GFR (Non-Af Amer) 47 POC Glucose (mg/dL) Random Glucose 182 H Calcium 9.2 Phosphorus 4.3 Magnesium 3.2 H Total Bilirubin 1.7 H AST 62 H D ALT 23 Alkaline Phosphatase 131 H D Total Protein 7.7 Albumin 3.5 D Globulin 4.2 H Albumin/Globulin Ratio 0.8 L Lipase 15 L Arterial Blood Potassium Influenza Typ A,B (EIA) Negative for flu a/b Radiology Impressions: Radiology Impressions Chest X-Ray 05/20/18 11:42 IMPRESSION: No active disease. Head CT 05/20/18 11:43 IMPRESSION: No acute intracranial pathology. Age-related changes. Mild sphenoid sinus disease. No significant interval change. EKG/Cardiology Studies: Cardiology / EKG Studies 05/21/18 09:00 ELECTROCARDIOGRAM DAILY Comment: Mode Of Transportation: Reason For Exam: AMS Fingerstick Blood Sugar Results: 187 Critical Care Progress Note - Nutrition Nutrition: Nutrition Category Date Time Status NPO Diet [DIET] Diets 05/20/18 Lunch Ordered Assessment/Plan - Assessment and Plan (Free Text) Assessment: A/P AMS, ?sepsis, R/O CVA, hypernatremia, dehydration, seizer, h/o chf, COPD, dementia, decubitus ulcer, h/o HTN, h/o Rt femur fracture s/p surgery - Jackson cultures - Antibiotics - IV fluid - Neurology consult as per PMD - Intubation if worsen - Follow up labs - DVT prophylaxis Critical care 40 min
[2018-05-20 15:10] LABS: BANDS 2 % (0-2); LYMPHOCYTE 2 % (20-50); MONOCYTE 4 % (0-10); NEUTROPHIL 92 % (42-75); TOTAL CELLS COUNTED 100
[2018-05-20 15:11] LABS: ANISOCYTOSIS SLIGHT; LARGE PLATELETS PRESENT; OVALOCYTES SLIGHT; PLATELET CLUMPS PRESENT; PLATELET ESTIMATE NORMAL (NORMAL); TEARDROP CELLS SLIGHT
[2018-05-20 15:18] LABS: URINE CLARITY CLOUDY (Clear)
[2018-05-20 16:03] LABS: VENOUS BLOOD GAS BASE EXCESS 7.5 mmol/L (0.0-2.0); VENOUS BLOOD GAS PCO2 47 mmHg (40-60); VENOUS BLOOD GAS PO2 76 mm/Hg (30-55); VENOUS BLOOD PH 7.45 (7.32-7.43)
[2018-05-20] MEDS ORDERED: Sodium Chloride 0.9% 1,000 ML IV SCH (18:15)
[2018-05-20] MEDS: Enoxaparin 30 mg Syringe SC SCH (18:35)
[2018-05-20] MEDS: Sodium Chloride 0.9% 1,000 ML IV SCH (18:55)
[2018-05-21] MEDS: Sodium Chloride 0.9% 1,000 ML IV SCH ×3 (01:45→22:14)
[2018-05-21 06:24] LABS: BASO % 0.2 % (0.0-2.0); HEMOGLOBIN 10.3 g/dL (12.0-16.0); LYMPH # 0.4 K/uL (1.0-4.3); LYMPH % 4.5 % (20.0-40.0); MEAN CELL VOLUME 93.2 fl (81.0-99.0); MEAN CORPUSCULAR HEMOGLOBIN 28.5 pg (27.0-31.0); MEAN CORPUSCULAR HGB CONC 30.6 g/dL (33.0-37.0); MONO # 0.4 K/uL (0.0-0.8); MONO % 4.2 % (0.0-10.0); NEUT # 8.5 K/uL (1.8-7.0); NEUT % 91.1 % (50.0-75.0); NRBC % 0.1 % (0.0-0.0); PLATELET COUNT 155 K/uL (130-400); RED CELL DISTRIBUTION WIDTH 17.9 % (11.5-14.5); WHITE BLOOD COUNT 9.3 K/uL (4.8-10.8)
[2018-05-21 07:16] LABS: ALB/GLOB RATIO 0.7 (1.0-2.1); ALBUMIN 2.4 g/dL (3.5-5.0); ALT/SGPT 26 U/L (9-52); AST/SGOT 32 U/L (14-36); BLOOD UREA NITROGEN 43 mg/dl (7-17); CALCIUM 7.7 mg/dL (8.4-10.2); GFR NON-AFRICAN AMERICAN > 60
[2018-05-21] MEDS ORDERED: Sodium Chloride 0.9% 1,000 ML IV SCH (07:30)
--- NOTE | 2018-05-21 07:53 | CP.CCUPN ---
CCU Subjective - Physician Review Events Since Last Encounter (Free Text): 83 female with history of dementia, COPD, CHF, HTN, decubitus ulcer, seizer, Rt femur fracture s/p surgery was brought from residential by [facility] for AMS, lethargy, fever, no vomiting, no response to verbal stimuli, events reviewed CCU Objective - Vital Signs / Intake & Output Vital Signs (Last 4 hours): Vital Signs Pulse Resp BP Pulse Ox 05/21/18 06:00 96 H 20 119/53 L 98 05/21/18 04:00 74 23 106/49 L 98 Intake and Output (Last 8hrs): Intake & Output 05/20/18 05/21/18 05/21/18 22:59 06:59 14:59 Intake Total 1000 1650 Output Total 275 400 Balance 725 1250 Weight 90 lb Intake: IV 1000 1650 Output: Urine 275 400 Urethral ([place]) 275 400 Other: # Bowel Movements 0 - Physical Exam Head: Positive for: Atraumatic, Normocephalic Pupils: Positive for: PERRL Conjunctiva: Positive for: Normal Mouth: Positive for: Dry Nose (External): Positive for: Atraumatic Neck: Positive for: Normal Range of Motion Respiratory/Chest: Positive for: Rhonchi Cardiovascular: Positive for: Tachycardic Abdomen: Positive for: Normal Bowel Sounds Upper Extremity: Positive for: Normal Inspection Lower Extremity: Positive for: Normal Inspection Neurological: Positive for: Other (no response to verbal stimuli) - Medications Active Medications: Active Medications Generic Name Dose Route Start Last Admin Trade Name Freq PRN Reason Stop Dose Admin Enoxaparin Sodium 30 mg 05/20/18 15:30 05/20/18 18:35 Lovenox SC 30 mg DAILY BELLE Administration Protocol Levofloxacin/Dextrose 500 mg in 100 mls @ 100 mls/hr 05/21/18 09:00 Levaquin 500mg IVPB DAILY BELLE Protocol Sodium Chloride 1,000 mls @ 1,000 mls/hr 05/20/18 14:00 05/20/18 15:41 Sodium Chloride 0.45% IV 05/21/18 13:59 1,000 mls/hr .Q1H BELLE Administration Sodium Chloride 1,000 mls @ 150 mls/hr 05/20/18 15:30 05/21/18 01:45 Sodium Chloride 0.9% IV 05/21/18 15:24 150 mls/hr .Q6H40M BELLE Administration Sodium Chloride 1,000 mls @ 999 mls/hr 05/20/18 18:15 Sodium Chloride 0.9% IV 05/21/18 18:14 .Q1H1M BELLE Sodium Chloride 1,000 mls @ 999 mls/hr 05/21/18 07:30 Sodium Chloride 0.9% IV 05/21/18 08:30 .Q1H1M BELLE - Patient Studies Lab Studies: Lab Studies 05/21/18 05/21/18 05/21/18 Range/Units 05:30 05:30 05:30 WBC 9.3 (4.8-10.8) K/uL RBC 3.60 L (3.80-5.20) Mil/uL Hgb 10.3 L D (12.0-16.0) g/dL Hct 33.5 L (34.0-47.0) % MCV 93.2 (81.0-99.0) fl MCH 28.5 (27.0-31.0) pg MCHC 30.6 L (33.0-37.0) g/dL RDW 17.9 H (11.5-14.5) % Plt Count 155 (130-400) K/uL MPV 12.0 H (7.2-11.7) fl Neut % (Auto) 91.1 H (50.0-75.0) % Lymph % (Auto) 4.5 L (20.0-40.0) % [place] % (Auto) 4.2 (0.0-10.0) % Eos % (Auto) 0.0 (0.0-4.0) % Baso % (Auto) 0.2 (0.0-2.0) % Neut # (Auto) 8.5 H (1.8-7.0) K/uL Lymph # (Auto) 0.4 L (1.0-4.3) K/uL [place] # (Auto) 0.4 (0.0-0.8) K/uL Eos # (Auto) 0.0 (0.0-0.7) K/uL Baso # (Auto) 0.0 (0.0-0.2) K/uL Neutrophils % (Manual) (42-75) % Band Neutrophils % (0-2) % Lymphocytes % (Manual) (20-50) % Monocytes % (Manual) (0-10) % Platelet Estimate (NORMAL) Plt Clumps, EDTA Large Platelets Anisocytosis (manual) Tear Drop Cells Ovalocytes PT (9.8-13.1) Seconds INR APTT (25.6-37.1) Seconds pCO2 (35-45) mm/Hg pO2 (80-100) mm/Hg HCO3 (21-28) mmol/L ABG pH (7.35-7.45) ABG Total CO2 (22-28) mmol/L ABG O2 Saturation (95-98) % ABG Base Excess (-2.0-3.0) mmol/L Oswaldo Test ABG Potassium (3.6-5.2) mmol/L VBG pH (7.32-7.43) VBG pCO2 (40-60) mmHg VBG HCO3 mmol/L VBG Total CO2 (22-28) mmol/L VBG O2 Sat (Calc) (40-65) % VBG Base Excess (0.0-2.0) mmol/L VBG Potassium (3.6-5.2) mmol/L A-a O2 Difference mm/Hg Sodium 162 H* (132-148) mmol/L Chloride 125 H (98-107) mmol/L Glucose (65-105) mg/dL Lactate (0.7-2.1) mmol/L Vent Mode FiO2 % Crit Value Called To Crit Value Called By Crit Value Read Back Blood Gas Notified Time Potassium 2.7 L (3.6-5.0) MMOL/L Carbon Dioxide 29 (22-30) mmol/L Anion Gap 11 (10-20) BUN 43 H (7-17) mg/dl Creatinine 0.6 L (0.7-1.2) mg/dl Est GFR ( Amer) > 60 Est GFR (Non-Af Amer) > 60 POC Glucose (mg/dL) (65-110) mg/dL Random Glucose 137 H (65-105) mg/dL Lactic Acid (0.7-2.1) MMOL/L Calcium 7.7 L (8.4-10.2) mg/dL Phosphorus (2.5-4.5) mg/dl Magnesium (1.6-2.3) MG/DL Total Bilirubin 0.8 (0.2-1.3) mg/dl AST 32 (14-36) U/L ALT 26 (9-52) U/L Alkaline Phosphatase 94 (38-126) U/L Total Protein 5.6 L (6.3-8.2) G/DL Albumin 2.4 L D (3.5-5.0) g/dL Globulin 3.2 (2.2-3.9) gm/dL Albumin/Globulin Ratio 0.7 L (1.0-2.1) Lipase (23-300) U/L Arterial Blood Potassium (3.6-5.2) mmol/L Venous Blood Potassium (3.6-5.2) mmol/L Urine Color (YELLOW) Urine Clarity (Clear) Urine pH (5.0-8.0) Ur Specific Burt (1.003-1.030) Urine Protein (NEGATIVE) mg/dL Urine Glucose (UA) (NEGATIVE) mg/dL Urine Ketones (NEGATIVE) mg/dL Urine Blood (NEGATIVE) Urine Nitrate (NEGATIVE) Urine Bilirubin (NEGATIVE) Urine Urobilinogen (0.2-1.0) mg/dL Ur Leukocyte Esterase (Negative) Suhas/uL Urine RBC (Auto) (0-3) /hpf Urine Microscopic WBC (0-5) /hpf Ur Squamous Epith Cells (0-5) /hpf Amorphous Sediment (<OCC) /ul Urine Bacteria (<OCC) Hyaline Casts (0-2) /hpf Random Vancomycin 6.0 ug/mL Influenza Typ A,B (EIA) (NEGATIVE) 05/20/18 05/20/18 05/20/18 Range/Units 17:00 15:52 15:40 WBC (4.8-10.8) K/uL RBC (3.80-5.20) Mil/uL Hgb (12.0-16.0) g/dL Hct (34.0-47.0) % MCV (81.0-99.0) fl MCH (27.0-31.0) pg MCHC (33.0-37.0) g/dL RDW (11.5-14.5) % Plt Count (130-400) K/uL MPV (7.2-11.7) fl Neut % (Auto) (50.0-75.0) % Lymph % (Auto) (20.0-40.0) % [place] % (Auto) (0.0-10.0) % Eos % (Auto) (0.0-4.0) % Baso % (Auto) (0.0-2.0) % Neut # (Auto) (1.8-7.0) K/uL Lymph # (Auto) (1.0-4.3) K/uL [place] # (Auto) (0.0-0.8) K/uL Eos # (Auto) (0.0-0.7) K/uL Baso # (Auto) (0.0-0.2) K/uL Neutrophils % (Manual) (42-75) % Band Neutrophils % (0-2) % Lymphocytes % (Manual) (20-50) % Monocytes % (Manual) (0-10) % Platelet Estimate (NORMAL) Plt Clumps, EDTA Large Platelets Anisocytosis (manual) Tear Drop Cells Ovalocytes PT (9.8-13.1) Seconds INR APTT (25.6-37.1) Seconds pCO2 (35-45) mm/Hg pO2 76 H (80-100) mm/Hg HCO3 (21-28) mmol/L ABG pH (7.35-7.45) ABG Total CO2 (22-28) mmol/L ABG O2 Saturation (95-98) % ABG Base Excess (-2.0-3.0) mmol/L Oswaldo Test ABG Potassium (3.6-5.2) mmol/L VBG pH 7.45 H (7.32-7.43) VBG pCO2 47 (40-60) mmHg VBG HCO3 30.7 mmol/L VBG Total CO2 34.1 H (22-28) mmol/L VBG O2 Sat (Calc) 97.3 H (40-65) % VBG Base Excess 7.5 H (0.0-2.0) mmol/L VBG Potassium 3.4 L (3.6-5.2) mmol/L A-a O2 Difference mm/Hg Sodium 167.0 H* (132-148) mmol/L Chloride 131.0 H (98-107) mmol/L Glucose 178 H (65-105) mg/dL Lactate 2.5 H (0.7-2.1) mmol/L Vent Mode FiO2 100.0 % Crit Value Called To maynor Alves do Crit Value Called By Bozena coffey Crit Value Read Back Y Blood Gas Notified Time 1602 Potassium (3.6-5.0) MMOL/L Carbon Dioxide (22-30) mmol/L Anion Gap (10-20) BUN (7-17) mg/dl Creatinine (0.7-1.2) mg/dl Est GFR ( Amer) Est GFR (Non-Af Amer) POC Glucose (mg/dL) 144 H (65-110) mg/dL Random Glucose (65-105) mg/dL Lactic Acid (0.7-2.1) MMOL/L Calcium (8.4-10.2) mg/dL Phosphorus 3.1 (2.5-4.5) mg/dl Magnesium 2.4 H (1.6-2.3) MG/DL Total Bilirubin (0.2-1.3) mg/dl AST (14-36) U/L ALT (9-52) U/L Alkaline Phosphatase (38-126) U/L Total Protein (6.3-8.2) G/DL Albumin (3.5-5.0) g/dL Globulin (2.2-3.9) gm/dL Albumin/Globulin Ratio (1.0-2.1) Lipase (23-300) U/L Arterial Blood Potassium (3.6-5.2) mmol/L Venous Blood Potassium 3.4 L (3.6-5.2) mmol/L Urine Color (YELLOW) Urine Clarity (Clear) Urine pH (5.0-8.0) Ur Specific Burt (1.003-1.030) Urine Protein (NEGATIVE) mg/dL Urine Glucose (UA) (NEGATIVE) mg/dL Urine Ketones (NEGATIVE) mg/dL Urine Blood (NEGATIVE) Urine Nitrate (NEGATIVE) Urine Bilirubin (NEGATIVE) Urine Urobilinogen (0.2-1.0) mg/dL Ur Leukocyte Esterase (Negative) Suhas/uL Urine RBC (Auto) (0-3) /hpf Urine Microscopic WBC (0-5) /hpf Ur Squamous Epith Cells (0-5) /hpf Amorphous Sediment (<OCC) /ul Urine Bacteria (<OCC) Hyaline Casts (0-2) /hpf Random Vancomycin ug/mL Influenza Typ A,B (EIA) (NEGATIVE) 05/20/18 05/20/18 05/20/18 Range/Units 15:40 13:20 13:00 WBC (4.8-10.8) K/uL RBC (3.80-5.20) Mil/uL Hgb (12.0-16.0) g/dL Hct (34.0-47.0) % MCV (81.0-99.0) fl MCH (27.0-31.0) pg MCHC (33.0-37.0) g/dL RDW (11.5-14.5) % Plt Count (130-400) K/uL MPV (7.2-11.7) fl Neut % (Auto) (50.0-75.0) % Lymph % (Auto) (20.0-40.0) % [place] % (Auto) (0.0-10.0) % Eos % (Auto) (0.0-4.0) % Baso % (Auto) (0.0-2.0) % Neut # (Auto) (1.8-7.0) K/uL Lymph # (Auto) (1.0-4.3) K/uL [place] # (Auto) (0.0-0.8) K/uL Eos # (Auto) (0.0-0.7) K/uL Baso # (Auto) (0.0-0.2) K/uL Neutrophils % (Manual) (42-75) % Band Neutrophils % (0-2) % Lymphocytes % (Manual) (20-50) % Monocytes % (Manual) (0-10) % Platelet Estimate (NORMAL) Plt Clumps, EDTA Large Platelets Anisocytosis (manual) Tear Drop Cells Ovalocytes PT 20.0 H (9.8-13.1) Seconds INR 1.8 APTT 30.8 (25.6-37.1) Seconds pCO2 (35-45) mm/Hg pO2 (80-100) mm/Hg HCO3 (21-28) mmol/L ABG pH (7.35-7.45) ABG Total CO2 (22-28) mmol/L ABG O2 Saturation (95-98) % ABG Base Excess (-2.0-3.0) mmol/L Oswaldo Test ABG Potassium (3.6-5.2) mmol/L VBG pH (7.32-7.43) VBG pCO2 (40-60) mmHg VBG HCO3 mmol/L VBG Total CO2 (22-28) mmol/L VBG O2 Sat (Calc) (40-65) % VBG Base Excess (0.0-2.0) mmol/L VBG Potassium (3.6-5.2) mmol/L A-a O2 Difference mm/Hg Sodium (132-148) mmol/L Chloride (98-107) mmol/L Glucose (65-105) mg/dL Lactate (0.7-2.1) mmol/L Vent Mode FiO2 % Crit Value Called To Crit Value Called By Crit Value Read Back Blood Gas Notified Time Potassium (3.6-5.0) MMOL/L Carbon Dioxide (22-30) mmol/L Anion Gap (10-20) BUN (7-17) mg/dl Creatinine (0.7-1.2) mg/dl Est GFR ( Amer) Est GFR (Non-Af Amer) POC Glucose (mg/dL) (65-110) mg/dL Random Glucose (65-105) mg/dL Lactic Acid 1.8 (0.7-2.1) MMOL/L Calcium (8.4-10.2) mg/dL Phosphorus (2.5-4.5) mg/dl Magnesium (1.6-2.3) MG/DL Total Bilirubin (0.2-1.3) mg/dl AST (14-36) U/L ALT (9-52) U/L Alkaline Phosphatase (38-126) U/L Total Protein (6.3-8.2) G/DL Albumin (3.5-5.0) g/dL Globulin (2.2-3.9) gm/dL Albumin/Globulin Ratio (1.0-2.1) Lipase (23-300) U/L Arterial Blood Potassium (3.6-5.2) mmol/L Venous Blood Potassium (3.6-5.2) mmol/L Urine Color Mai (YELLOW) Urine Clarity Cloudy (Clear) Urine pH 8.0 (5.0-8.0) Ur Specific Burt 1.029 (1.003-1.030) Urine Protein >=500 (NEGATIVE) mg/dL Urine Glucose (UA) Neg (NEGATIVE) mg/dL Urine Ketones Negative (NEGATIVE) mg/dL Urine Blood Negative (NEGATIVE) Urine Nitrate Negative (NEGATIVE) Urine Bilirubin Small (NEGATIVE) Urine Urobilinogen 2.0 H (0.2-1.0) mg/dL Ur Leukocyte Esterase Neg (Negative) Suhas/uL Urine RBC (Auto) 3 (0-3) /hpf Urine Microscopic WBC 5 (0-5) /hpf Ur Squamous Epith Cells 3 (0-5) /hpf Amorphous Sediment Occ H (<OCC) /ul Urine Bacteria Occ H (<OCC) Hyaline Casts 6-10 H (0-2) /hpf Random Vancomycin ug/mL Influenza Typ A,B (EIA) (NEGATIVE) 05/20/18 05/20/18 05/20/18 Range/Units 13:00 13:00 13:00 WBC 13.9 H D (4.8-10.8) K/uL RBC 4.86 (3.80-5.20) Mil/uL Hgb 13.9 D (12.0-16.0) g/dL Hct 46.0 (34.0-47.0) % MCV 94.7 D (81.0-99.0) fl MCH 28.6 (27.0-31.0) pg MCHC 30.2 L (33.0-37.0) g/dL RDW 18.6 H (11.5-14.5) % Plt Count 228 (130-400) K/uL MPV 11.9 H (7.2-11.7) fl Neut % (Auto) 91.8 H (50.0-75.0) % Lymph % (Auto) 2.7 L (20.0-40.0) % [place] % (Auto) 5.3 (0.0-10.0) % Eos % (Auto) 0.0 (0.0-4.0) % Baso % (Auto) 0.2 (0.0-2.0) % Neut # (Auto) 12.8 H (1.8-7.0) K/uL Lymph # (Auto) 0.4 L (1.0-4.3) K/uL [place] # (Auto) 0.7 (0.0-0.8) K/uL Eos # (Auto) 0.0 (0.0-0.7) K/uL Baso # (Auto) 0.0 (0.0-0.2) K/uL Neutrophils % (Manual) 92 H (42-75) % Band Neutrophils % 2 (0-2) % Lymphocytes % (Manual) 2 L (20-50) % Monocytes % (Manual) 4 (0-10) % Platelet Estimate Normal (NORMAL) Plt Clumps, EDTA Present Large Platelets Present Anisocytosis (manual) Slight Tear Drop Cells Slight Ovalocytes Slight PT (9.8-13.1) Seconds INR APTT (25.6-37.1) Seconds pCO2 (35-45) mm/Hg pO2 (80-100) mm/Hg HCO3 (21-28) mmol/L ABG pH (7.35-7.45) ABG Total CO2 (22-28) mmol/L ABG O2 Saturation (95-98) % ABG Base Excess (-2.0-3.0) mmol/L Oswaldo Test ABG Potassium (3.6-5.2) mmol/L VBG pH (7.32-7.43) VBG pCO2 (40-60) mmHg VBG HCO3 mmol/L VBG Total CO2 (22-28) mmol/L VBG O2 Sat (Calc) (40-65) % VBG Base Excess (0.0-2.0) mmol/L VBG Potassium (3.6-5.2) mmol/L A-a O2 Difference mm/Hg Sodium 166 H* (132-148) mmol/L Chloride 118 H (98-107) mmol/L Glucose (65-105) mg/dL Lactate (0.7-2.1) mmol/L Vent Mode FiO2 % Crit Value Called To Crit Value Called By Crit Value Read Back Blood Gas Notified Time Potassium 4.3 (3.6-5.0) MMOL/L Carbon Dioxide 29 (22-30) mmol/L Anion Gap 23 H (10-20) BUN 77 H (7-17) mg/dl Creatinine 1.1 (0.7-1.2) mg/dl Est GFR ( Amer) 57 Est GFR (Non-Af Amer) 47 POC Glucose (mg/dL) (65-110) mg/dL Random Glucose 182 H (65-105) mg/dL Lactic Acid (0.7-2.1) MMOL/L Calcium 9.2 (8.4-10.2) mg/dL Phosphorus 4.3 (2.5-4.5) mg/dl Magnesium 3.2 H (1.6-2.3) MG/DL Total Bilirubin 1.7 H (0.2-1.3) mg/dl AST 62 H D (14-36) U/L ALT 23 (9-52) U/L Alkaline Phosphatase 131 H D (38-126) U/L Total Protein 7.7 (6.3-8.2) G/DL Albumin 3.5 D (3.5-5.0) g/dL Globulin 4.2 H (2.2-3.9) gm/dL Albumin/Globulin Ratio 0.8 L (1.0-2.1) Lipase 15 L (23-300) U/L Arterial Blood Potassium (3.6-5.2) mmol/L Venous Blood Potassium (3.6-5.2) mmol/L Urine Color (YELLOW) Urine Clarity (Clear) Urine pH (5.0-8.0) Ur Specific Burt (1.003-1.030) Urine Protein (NEGATIVE) mg/dL Urine Glucose (UA) (NEGATIVE) mg/dL Urine Ketones (NEGATIVE) mg/dL Urine Blood (NEGATIVE) Urine Nitrate (NEGATIVE) Urine Bilirubin (NEGATIVE) Urine Urobilinogen (0.2-1.0) mg/dL Ur Leukocyte Esterase (Negative) Suhas/uL Urine RBC (Auto) (0-3) /hpf Urine Microscopic WBC (0-5) /hpf Ur Squamous Epith Cells (0-5) /hpf Amorphous Sediment (<OCC) /ul Urine Bacteria (<OCC) Hyaline Casts (0-2) /hpf Random Vancomycin ug/mL Influenza Typ A,B (EIA) Negative for flu a/b (NEGATIVE) 05/20/18 05/20/18 Range/Units 12:35 11:45 WBC (4.8-10.8) K/uL RBC (3.80-5.20) Mil/uL Hgb (12.0-16.0) g/dL Hct (34.0-47.0) % MCV (81.0-99.0) fl MCH (27.0-31.0) pg MCHC (33.0-37.0) g/dL RDW (11.5-14.5) % Plt Count (130-400) K/uL MPV (7.2-11.7) fl Neut % (Auto) (50.0-75.0) % Lymph % (Auto) (20.0-40.0) % [place] % (Auto) (0.0-10.0) % Eos % (Auto) (0.0-4.0) % Baso % (Auto) (0.0-2.0) % Neut # (Auto) (1.8-7.0) K/uL Lymph # (Auto) (1.0-4.3) K/uL [place] # (Auto) (0.0-0.8) K/uL Eos # (Auto) (0.0-0.7) K/uL Baso # (Auto) (0.0-0.2) K/uL Neutrophils % (Manual) (42-75) % Band Neutrophils % (0-2) % Lymphocytes % (Manual) (20-50) % Monocytes % (Manual) (0-10) % Platelet Estimate (NORMAL) Plt Clumps, EDTA Large Platelets Anisocytosis (manual) Tear Drop Cells Ovalocytes PT (9.8-13.1) Seconds INR APTT (25.6-37.1) Seconds pCO2 39 (35-45) mm/Hg pO2 90 (80-100) mm/Hg HCO3 30.8 H (21-28) mmol/L ABG pH 7.51 H (7.35-7.45) ABG Total CO2 32.3 H (22-28) mmol/L ABG O2 Saturation 99.5 H (95-98) % ABG Base Excess 7.5 H (-2.0-3.0) mmol/L Oswaldo Test Yes ABG Potassium 3.7 (3.6-5.2) mmol/L VBG pH (7.32-7.43) VBG pCO2 (40-60) mmHg VBG HCO3 mmol/L VBG Total CO2 (22-28) mmol/L VBG O2 Sat (Calc) (40-65) % VBG Base Excess (0.0-2.0) mmol/L VBG Potassium (3.6-5.2) mmol/L A-a O2 Difference 574.0 mm/Hg Sodium 163.0 H* (132-148) mmol/L Chloride 125.0 H (98-107) mmol/L Glucose 191 H (65-105) mg/dL Lactate 3.9 H (0.7-2.1) mmol/L Vent Mode 100% nrb FiO2 100.0 % Crit Value Called To maynor Alves do Crit Value Called By Bozena granbury Crit Value Read Back Y Blood Gas Notified Time 1159 Potassium (3.6-5.0) MMOL/L Carbon Dioxide (22-30) mmol/L Anion Gap (10-20) BUN (7-17) mg/dl Creatinine (0.7-1.2) mg/dl Est GFR ( Amer) Est GFR (Non-Af Amer) POC Glucose (mg/dL) 187 H (65-110) mg/dL Random Glucose (65-105) mg/dL Lactic Acid (0.7-2.1) MMOL/L Calcium (8.4-10.2) mg/dL Phosphorus (2.5-4.5) mg/dl Magnesium (1.6-2.3) MG/DL Total Bilirubin (0.2-1.3) mg/dl AST (14-36) U/L ALT (9-52) U/L Alkaline Phosphatase (38-126) U/L Total Protein (6.3-8.2) G/DL Albumin (3.5-5.0) g/dL Globulin (2.2-3.9) gm/dL Albumin/Globulin Ratio (1.0-2.1) Lipase (23-300) U/L Arterial Blood Potassium 3.7 (3.6-5.2) mmol/L Venous Blood Potassium (3.6-5.2) mmol/L Urine Color (YELLOW) Urine Clarity (Clear) Urine pH (5.0-8.0) Ur Specific Burt (1.003-1.030) Urine Protein (NEGATIVE) mg/dL Urine Glucose (UA) (NEGATIVE) mg/dL Urine Ketones (NEGATIVE) mg/dL Urine Blood (NEGATIVE) Urine Nitrate (NEGATIVE) Urine Bilirubin (NEGATIVE) Urine Urobilinogen (0.2-1.0) mg/dL Ur Leukocyte Esterase (Negative) Suhas/uL Urine RBC (Auto) (0-3) /hpf Urine Microscopic WBC (0-5) /hpf Ur Squamous Epith Cells (0-5) /hpf Amorphous Sediment (<OCC) /ul Urine Bacteria (<OCC) Hyaline Casts (0-2) /hpf Random Vancomycin ug/mL Influenza Typ A,B (EIA) (NEGATIVE) Laboratory Results - last 24 hr 05/20/18 05/20/18 05/20/18 11:45 12:35 13:00 WBC 13.9 H D RBC 4.86 Hgb 13.9 D Hct 46.0 MCV 94.7 D MCH 28.6 MCHC 30.2 L RDW 18.6 H Plt Count 228 MPV 11.9 H Neut % (Auto) 91.8 H Lymph % (Auto) 2.7 L [place] % (Auto) 5.3 Eos % (Auto) 0.0 Baso % (Auto) 0.2 Neut # (Auto) 12.8 H Lymph # (Auto) 0.4 L [place] # (Auto) 0.7 Eos # (Auto) 0.0 Baso # (Auto) 0.0 Neutrophils % (Manual) 92 H Band Neutrophils % 2 Lymphocytes % (Manual) 2 L Monocytes % (Manual) 4 Platelet Estimate Normal Plt Clumps, EDTA Present Large Platelets Present Anisocytosis (manual) Slight Tear Drop Cells Slight Ovalocytes Slight PT INR APTT pCO2 39 pO2 90 HCO3 30.8 H ABG pH 7.51 H ABG Total CO2 32.3 H ABG O2 Saturation 99.5 H ABG Base Excess 7.5 H Oswaldo Test Yes ABG Potassium 3.7 VBG pH VBG pCO2 VBG HCO3 VBG Total CO2 VBG O2 Sat (Calc) VBG Base Excess VBG Potassium A-a O2 Difference 574.0 Sodium 163.0 H* Chloride 125.0 H Glucose 191 H Lactate 3.9 H Vent Mode 100% nrb FiO2 100.0 Crit Value Called To maynor Alves do Crit Value Called By Bozena coffey Crit Value Read Back Y Blood Gas Notified Time 1159 Potassium Carbon Dioxide Anion Gap BUN Creatinine Est GFR ( Amer) Est GFR (Non-Af Amer) POC Glucose (mg/dL) 187 H Random Glucose Lactic Acid Calcium Phosphorus Magnesium Total Bilirubin AST ALT Alkaline Phosphatase Total Protein Albumin Globulin Albumin/Globulin Ratio Lipase Arterial Blood Potassium 3.7 Venous Blood Potassium Urine Color Urine Clarity Urine pH Ur Specific Burt Urine Protein Urine Glucose (UA) Urine Ketones Urine Blood Urine Nitrate Urine Bilirubin Urine Urobilinogen Ur Leukocyte Esterase Urine RBC (Auto) Urine Microscopic WBC Ur Squamous Epith Cells Amorphous Sediment Urine Bacteria Hyaline Casts Random Vancomycin Influenza Typ A,B (EIA) 05/20/18 05/20/18 05/20/18 13:00 13:00 13:00 WBC RBC Hgb Hct MCV MCH MCHC RDW Plt Count MPV Neut % (Auto) Lymph % (Auto) [place] % (Auto) Eos % (Auto) Baso % (Auto) Neut # (Auto) Lymph # (Auto) [place] # (Auto) Eos # (Auto) Baso # (Auto) Neutrophils % (Manual) Band Neutrophils % Lymphocytes % (Manual) Monocytes % (Manual) Platelet Estimate Plt Clumps, EDTA Large Platelets Anisocytosis (manual) Tear Drop Cells Ovalocytes PT 20.0 H INR 1.8 APTT 30.8 pCO2 pO2 HCO3 ABG pH ABG Total CO2 ABG O2 Saturation ABG Base Excess Oswaldo Test ABG Potassium VBG pH VBG pCO2 VBG HCO3 VBG Total CO2 VBG O2 Sat (Calc) VBG Base Excess VBG Potassium A-a O2 Difference Sodium 166 H* Chloride 118 H Glucose Lactate Vent Mode FiO2 Crit Value Called To Crit Value Called By Crit Value Read Back Blood Gas Notified Time Potassium 4.3 Carbon Dioxide 29 Anion Gap 23 H BUN 77 H Creatinine 1.1 Est GFR ( Amer) 57 Est GFR (Non-Af Amer) 47 POC Glucose (mg/dL) Random Glucose 182 H Lactic Acid Calcium 9.2 Phosphorus 4.3 Magnesium 3.2 H Total Bilirubin 1.7 H AST 62 H D ALT 23 Alkaline Phosphatase 131 H D Total Protein 7.7 Albumin 3.5 D Globulin 4.2 H Albumin/Globulin Ratio 0.8 L Lipase 15 L Arterial Blood Potassium Venous Blood Potassium Urine Color Urine Clarity Urine pH Ur Specific Burt Urine Protein Urine Glucose (UA) Urine Ketones Urine Blood Urine Nitrate Urine Bilirubin Urine Urobilinogen Ur Leukocyte Esterase Urine RBC (Auto) Urine Microscopic WBC Ur Squamous Epith Cells Amorphous Sediment Urine Bacteria Hyaline Casts Random Vancomycin Influenza Typ A,B (EIA) Negative for flu a/b 05/20/18 05/20/18 05/20/18 13:20 15:40 15:40 WBC RBC Hgb Hct MCV MCH MCHC RDW Plt Count MPV Neut % (Auto) Lymph % (Auto) [place] % (Auto) Eos % (Auto) Baso % (Auto) Neut # (Auto) Lymph # (Auto) [place] # (Auto) Eos # (Auto) Baso # (Auto) Neutrophils % (Manual) Band Neutrophils % Lymphocytes % (Manual) Monocytes % (Manual) Platelet Estimate Plt Clumps, EDTA Large Platelets Anisocytosis (manual) Tear Drop Cells Ovalocytes PT INR APTT pCO2 pO2 HCO3 ABG pH ABG Total CO2 ABG O2 Saturation ABG Base Excess Oswaldo Test ABG Potassium VBG pH VBG pCO2 VBG HCO3 VBG Total CO2 VBG O2 Sat (Calc) VBG Base Excess VBG Potassium A-a O2 Difference Sodium Chloride Glucose Lactate Vent Mode FiO2 Crit Value Called To Crit Value Called By Crit Value Read Back Blood Gas Notified Time Potassium Carbon Dioxide Anion Gap BUN Creatinine Est GFR ( Amer) Est GFR (Non-Af Amer) POC Glucose (mg/dL) Random Glucose Lactic Acid 1.8 Calcium Phosphorus 3.1 Magnesium 2.4 H Total Bilirubin AST ALT Alkaline Phosphatase Total Protein Albumin Globulin Albumin/Globulin Ratio Lipase Arterial Blood Potassium Venous Blood Potassium Urine Color Mai Urine Clarity Cloudy Urine pH 8.0 Ur Specific Burt 1.029 Urine Protein >=500 Urine Glucose (UA) Neg Urine Ketones Negative Urine Blood Negative Urine Nitrate Negative Urine Bilirubin Small Urine Urobilinogen 2.0 H Ur Leukocyte Esterase Neg Urine RBC (Auto) 3 Urine Microscopic WBC 5 Ur Squamous Epith Cells 3 Amorphous Sediment Occ H Urine Bacteria Occ H Hyaline Casts 6-10 H Random Vancomycin Influenza Typ A,B (EIA) 05/20/18 05/20/18 05/21/18 15:52 17:00 05:30 WBC RBC Hgb Hct MCV MCH MCHC RDW Plt Count MPV Neut % (Auto) Lymph % (Auto) [place] % (Auto) Eos % (Auto) Baso % (Auto) Neut # (Auto) Lymph # (Auto) [place] # (Auto) Eos # (Auto) Baso # (Auto) Neutrophils % (Manual) Band Neutrophils % Lymphocytes % (Manual) Monocytes % (Manual) Platelet Estimate Plt Clumps, EDTA Large Platelets Anisocytosis (manual) Tear Drop Cells Ovalocytes PT INR APTT pCO2 pO2 76 H HCO3 ABG pH ABG Total CO2 ABG O2 Saturation ABG Base Excess Oswaldo Test ABG Potassium VBG pH 7.45 H VBG pCO2 47 VBG HCO3 30.7 VBG Total CO2 34.1 H VBG O2 Sat (Calc) 97.3 H VBG Base Excess 7.5 H VBG Potassium 3.4 L A-a O2 Difference Sodium 167.0 H* 162 H* Chloride 131.0 H 125 H Glucose 178 H Lactate 2.5 H Vent Mode FiO2 100.0 Crit Value Called To maynor Alves do Crit Value Called By Bozena coffey Crit Value Read Back Y Blood Gas Notified Time 1602 Potassium 2.7 L Carbon Dioxide 29 Anion Gap 11 BUN 43 H Creatinine 0.6 L Est GFR ( Amer) > 60 Est GFR (Non-Af Amer) > 60 POC Glucose (mg/dL) 144 H Random Glucose 137 H Lactic Acid Calcium 7.7 L Phosphorus Magnesium Total Bilirubin 0.8 AST 32 ALT 26 Alkaline Phosphatase 94 Total Protein 5.6 L Albumin 2.4 L D Globulin 3.2 Albumin/Globulin Ratio 0.7 L Lipase Arterial Blood Potassium Venous Blood Potassium 3.4 L Urine Color Urine Clarity Urine pH Ur Specific Burt Urine Protein Urine Glucose (UA) Urine Ketones Urine Blood Urine Nitrate Urine Bilirubin Urine Urobilinogen Ur Leukocyte Esterase Urine RBC (Auto) Urine Microscopic WBC Ur Squamous Epith Cells Amorphous Sediment Urine Bacteria Hyaline Casts Random Vancomycin Influenza Typ A,B (EIA) 05/21/18 05/21/18 05:30 05:30 WBC 9.3 RBC 3.60 L Hgb 10.3 L D Hct 33.5 L MCV 93.2 MCH 28.5 MCHC 30.6 L RDW 17.9 H Plt Count 155 MPV 12.0 H Neut % (Auto) 91.1 H Lymph % (Auto) 4.5 L [place] % (Auto) 4.2 Eos % (Auto) 0.0 Baso % (Auto) 0.2 Neut # (Auto) 8.5 H Lymph # (Auto) 0.4 L [place] # (Auto) 0.4 Eos # (Auto) 0.0 Baso # (Auto) 0.0 Neutrophils % (Manual) Band Neutrophils % Lymphocytes % (Manual) Monocytes % (Manual) Platelet Estimate Plt Clumps, EDTA Large Platelets Anisocytosis (manual) Tear Drop Cells Ovalocytes PT INR APTT pCO2 pO2 HCO3 ABG pH ABG Total CO2 ABG O2 Saturation ABG Base Excess Oswaldo Test ABG Potassium VBG pH VBG pCO2 VBG HCO3 VBG Total CO2 VBG O2 Sat (Calc) VBG Base Excess VBG Potassium A-a O2 Difference Sodium Chloride Glucose Lactate Vent Mode FiO2 Crit Value Called To Crit Value Called By Crit Value Read Back Blood Gas Notified Time Potassium Carbon Dioxide Anion Gap BUN Creatinine Est GFR ( Amer) Est GFR (Non-Af Amer) POC Glucose (mg/dL) Random Glucose Lactic Acid Calcium Phosphorus Magnesium Total Bilirubin AST ALT Alkaline Phosphatase Total Protein Albumin Globulin Albumin/Globulin Ratio Lipase Arterial Blood Potassium Venous Blood Potassium Urine Color Urine Clarity Urine pH Ur Specific [place] Urine Protein Urine Glucose (UA) Urine Ketones Urine Blood Urine Nitrate Urine Bilirubin Urine Urobilinogen Ur Leukocyte Esterase Urine RBC (Auto) Urine Microscopic WBC Ur Squamous Epith Cells Amorphous Sediment Urine Bacteria Hyaline Casts Random Vancomycin 6.0 Influenza Typ A,B (EIA) Radiology Impressions: Radiology Impressions Chest X-Ray 05/20/18 11:42 IMPRESSION: No active disease. Head CT 05/20/18 11:43 IMPRESSION: No acute intracranial pathology. Age-related changes. Mild sphenoid sinus disease. No significant interval change. EKG/Cardiology Studies: Cardiology / EKG Studies 05/21/18 09:00 ELECTROCARDIOGRAM DAILY Comment: Mode Of Transportation: Reason For Exam: AMS Fingerstick Blood Sugar Results: 187 Critical Care Progress Note - Nutrition Nutrition: Nutrition Category Date Time Status NPO Diet [DIET] Diets 05/20/18 Lunch Active Assessment/Plan - Assessment and Plan (Free Text) Assessment: A/P AMS, ?sepsis, R/O CVA, hypernatremia, dehydration, seizer, h/o chf, COPD, dementia, decubitus ulcer, h/o HTN, h/o Rt femur fracture s/p surgery, ?me tabolic encephalopathy - Continue meds - IV fluid - Neurology follow up - Intubation if worsen - Follow up labs - DVT prophylaxis Critical care 35 min
[2018-05-21] MEDS: Potassium CL 10 MEQ/50 ML 50 ML IVPB SCH ×4 (08:13→11:36)
[2018-05-21] MEDS ORDERED: levoFLOXacin 500 mg in D5W 500 MG/100 ML BAG IVPB STA (08:40)
[2018-05-21] MEDS ORDERED: levoFLOXacin 500 mg in D5W 500 MG/100 ML BAG IVPB SCH (09:00)
[2018-05-21] MEDS: Enoxaparin 30 mg Syringe SC SCH (09:16)
[2018-05-21 11:48] LABS: ANISOCYTOSIS SLIGHT; BANDS 2 % (0-2); HYPOCHROMIC SLIGHT; LYMPHOCYTE 5 % (20-50); MONOCYTE 3 % (0-10); NEUTROPHIL 90 % (42-75); PLATELET ESTIMATE NORMAL (NORMAL); TOTAL CELLS COUNTED 100
[2018-05-21 11:49] LABS: LARGE PLATELETS PRESENT
--- NOTE | 2018-05-21 13:39 | CP.PCM.CON ---
History of Present Illness - History of Present Illness History of Present Illness: Neurology Consultation Note Consult requested by Dr. Lara The patient is an 83-year-old woman with a past medical history of DM, HTN, hearing loss, dementia, who is a [facility] resident with decreased PO intake over the last week, lethargic, and found to be more obtunded. She was brought in to the ED, where she was minimally conscious. CT scan of the head did not show any acute findings. Labs showed elevated WBC, and hypernatremia. She had a Fentanyl patch on, which was removed and she was given Narcan without response. She is on Lamictal and Neurontin at the [place], but no history of seizures. Review of Systems - Review of Systems Systems not reviewed;Unavailable: Altered Mental Status Past Patient History - Infectious Disease Hx of Infectious Diseases: None - Past Medical History & Family History Past Medical History?: Yes - Past Social History Smoking Status: Unknown If Ever Smoked - CARDIAC Hx Cardiac Disorders: Yes Hx Congestive Heart Failure: Yes Hx Hypercholesterolemia: Yes Hx Hypertension: Yes - PULMONARY Hx Respiratory Disorders: Yes Hx Asthma: Yes Hx Chronic Obstructive Pulmonary Disease (COPD): Yes - NEUROLOGICAL Hx Neurological Disorder: Yes Hx Dementia: Yes Hx Seizures: Yes Other/Comment: fall - HEENT Hx HEENT Problems: No Hx Deafness: Yes (hearing aid) - RENAL Hx Chronic Kidney Disease: No - ENDOCRINE/METABOLIC Hx Endocrine Disorders: No Hx Diabetes Mellitus Type 2: No - HEMATOLOGICAL/ONCOLOGICAL Hx Blood Disorders: Yes Hx Anemia: Yes Hx Human Immunodeficiency Virus (HIV): No - INTEGUMENTARY Hx Dermatological Problems: No - MUSCULOSKELETAL/RHEUMATOLOGICAL Hx Arthritis: Yes (poly) Hx Back Pain: Yes Hx Falls: Yes Hx Fractures: Yes (L wrist , comp Fx T Spine) Hx Osteoporosis: Yes Hx Unsteady Gait: Yes Other/Comment: Right distal fracture - GASTROINTESTINAL Hx Gastrointestinal Disorders: Yes Hx Constipation: Yes Other/Comment: Cholecystitis - GENITOURINARY/GYNECOLOGICAL Hx Genitourinary Disorders: Yes - PSYCHIATRIC Hx Psychophysiologic Disorder: Yes Hx Anxiety: Yes Hx Depression: Yes Hx Substance Use: No - SURGICAL HISTORY Hx Surgeries: Yes Hx Cholecystectomy: Yes Hx Coronary Artery Bypass Graft: Yes Hx Open Reduction Internal Fixation: Yes - ANESTHESIA Hx Anesthesia: Yes Hx Anesthesia Reactions: No Hx Malignant Hyperthermia: No Has any member of the family had a problem w/ anesthesia?: No Meds Allergies/Adverse Reactions: Allergies Allergy/AdvReac Type Severity Reaction Status Date / Time Penicillins Allergy RASH Verified 05/25/17 12:15 - Medications Medications: Current Medications Enoxaparin Sodium (Lovenox) 30 mg SC DAILY [facility]; Protocol Last Admin: 05/21/18 09:16 Dose: 30 mg Sodium Chloride (Sodium Chloride 0.9%) 1,000 mls @ 150 mls/hr IV [id number] BELLE Stop: 05/21/18 15:24 Last Admin: 05/21/18 12:57 Dose: 150 mls/hr Vancomycin HCl 750 mg/ Sodium (Chloride) 250 mls @ 250 mls/hr IVPB Q12 BELLE; Protocol Last Admin: 05/21/18 12:55 Dose: 250 mls/hr Levofloxacin/Dextrose (Levaquin 250mg) 250 mg in 50 mls @ 50 mls/hr IVPB DAILY BELLE Physical Exam - Constitutional Appears: Chronically Ill - Head Exam Head Exam: ATRAUMATIC, NORMAL INSPECTION, NORMOCEPHALIC - Eye Exam Eye Exam: EOMI, Normal appearance, PERRL - ENT Exam ENT Exam: Mucous Membranes Dry - Neck Exam Neck exam: Positive for: Normal Inspection - Respiratory Exam Respiratory Exam: Decreased Breath Sounds, Clear to Auscultation Bilateral - Cardiovascular Exam Cardiovascular Exam: REGULAR RHYTHM, +S1, +S2 - GI/Abdominal Exam GI & Abdominal Exam: Normal Bowel Sounds, Soft. absent: Tenderness - Rectal Exam Rectal Exam: Deferred - Extremities Exam Extremities exam: Positive for: normal inspection - Back Exam Back exam: NORMAL INSPECTION - Neurological Exam Neurological exam: Altered, CN II-XII Intact Additional comments: Awake, but non-verbal. Does not follow commands, moans to painful stimulus, some incomprehensible speech, no movement noted in extremities. GCS= 8 - Psychiatric Exam Psychiatric exam: Flat Affect - Skin Skin Exam: Dry Results - Vital Signs Recent Vital Signs: Last Vital Signs Temp 98.8 F 05/21/18 12:00 Pulse 99 H 05/21/18 12:00 Resp 33 H 05/21/18 12:00 BP 112/49 L 05/21/18 12:00 Pulse Ox 98 05/21/18 12:00 - Labs Result Diagrams: 05/21/18 05:30 05/21/18 05:30 Labs: Laboratory Results - last 24 hr 05/20/18 05/20/18 05/20/18 13:00 13:00 13:00 WBC 13.9 H D RBC 4.86 Hgb 13.9 D Hct 46.0 MCV 94.7 D MCH 28.6 MCHC 30.2 L RDW 18.6 H Plt Count 228 MPV 11.9 H Neut % (Auto) 91.8 H Lymph % (Auto) 2.7 L [place] % (Auto) 5.3 Eos % (Auto) 0.0 Baso % (Auto) 0.2 Neut # (Auto) 12.8 H Lymph # (Auto) 0.4 L [place] # (Auto) 0.7 Eos # (Auto) 0.0 Baso # (Auto) 0.0 Neutrophils % (Manual) 92 H Band Neutrophils % 2 Lymphocytes % (Manual) 2 L Monocytes % (Manual) 4 Platelet Estimate Normal Plt Clumps, EDTA Present Large Platelets Present Hypochromasia (manual) Anisocytosis (manual) Slight Tear Drop Cells Slight Ovalocytes Slight PT 20.0 H INR 1.8 pO2 VBG pH VBG pCO2 VBG HCO3 VBG Total CO2 VBG O2 Sat (Calc) VBG Base Excess VBG Potassium Glucose Lactate FiO2 Crit Value Called To Crit Value Called By Crit Value Read Back Blood Gas Notified Time Sodium 166 H* Potassium 4.3 Chloride 118 H Carbon Dioxide 29 Anion Gap 23 H BUN 77 H Creatinine 1.1 Est GFR ( Amer) 57 Est GFR (Non-Af Amer) 47 POC Glucose (mg/dL) Random Glucose 182 H Lactic Acid Calcium 9.2 Phosphorus 4.3 Magnesium 3.2 H Total Bilirubin 1.7 H AST 62 H D ALT 23 Alkaline Phosphatase 131 H D Total Protein 7.7 Albumin 3.5 D Globulin 4.2 H Albumin/Globulin Ratio 0.8 L Lipase 15 L Venous Blood Potassium Urine Color Urine Clarity Urine pH Ur Specific [place] Urine Protein Urine Glucose (UA) Urine Ketones Urine Blood Urine Nitrate Urine Bilirubin Urine Urobilinogen Ur Leukocyte Esterase Urine RBC (Auto) Urine Microscopic WBC Ur Squamous Epith Cells Amorphous Sediment Urine Bacteria Hyaline Casts Random Vancomycin 05/20/18 05/20/18 05/20/18 13:20 15:40 15:40 WBC RBC Hgb Hct MCV MCH MCHC RDW Plt Count MPV Neut % (Auto) Lymph % (Auto) [place] % (Auto) Eos % (Auto) Baso % (Auto) Neut # (Auto) Lymph # (Auto) [place] # (Auto) Eos # (Auto) Baso # (Auto) Neutrophils % (Manual) Band Neutrophils % Lymphocytes % (Manual) Monocytes % (Manual) Platelet Estimate Plt Clumps, EDTA Large Platelets Hypochromasia (manual) Anisocytosis (manual) Tear Drop Cells Ovalocytes PT INR pO2 VBG pH VBG pCO2 VBG HCO3 VBG Total CO2 VBG O2 Sat (Calc) VBG Base Excess VBG Potassium Glucose Lactate FiO2 Crit Value Called To Crit Value Called By Crit Value Read Back Blood Gas Notified Time Sodium Potassium Chloride Carbon Dioxide Anion Gap BUN Creatinine Est GFR ( Amer) Est GFR (Non-Af Amer) POC Glucose (mg/dL) Random Glucose Lactic Acid 1.8 Calcium Phosphorus 3.1 Magnesium 2.4 H Total Bilirubin AST ALT Alkaline Phosphatase Total Protein Albumin Globulin Albumin/Globulin Ratio Lipase Venous Blood Potassium Urine Color [place] Urine Clarity Cloudy Urine pH 8.0 Ur Specific [place] 1.029 Urine Protein >=500 Urine Glucose (UA) Neg Urine Ketones Negative Urine Blood Negative Urine Nitrate Negative Urine Bilirubin Small Urine Urobilinogen 2.0 H Ur Leukocyte Esterase Neg Urine RBC (Auto) 3 Urine Microscopic WBC 5 Ur Squamous Epith Cells 3 Amorphous Sediment Occ H Urine Bacteria Occ H Hyaline Casts 6-10 H Random Vancomycin 05/20/18 05/20/18 05/21/18 15:52 17:00 05:30 WBC RBC Hgb Hct MCV MCH MCHC RDW Plt Count MPV Neut % (Auto) Lymph % (Auto) [place] % (Auto) Eos % (Auto) Baso % (Auto) Neut # (Auto) Lymph # (Auto) [place] # (Auto) Eos # (Auto) Baso # (Auto) Neutrophils % (Manual) Band Neutrophils % Lymphocytes % (Manual) Monocytes % (Manual) Platelet Estimate Plt Clumps, EDTA Large Platelets Hypochromasia (manual) Anisocytosis (manual) Tear Drop Cells Ovalocytes PT INR pO2 76 H VBG pH 7.45 H VBG pCO2 47 VBG HCO3 30.7 VBG Total CO2 34.1 H VBG O2 Sat (Calc) 97.3 H VBG Base Excess 7.5 H VBG Potassium 3.4 L Glucose 178 H Lactate 2.5 H FiO2 100.0 Crit Value Called To Joselyn,maynor do Crit Value Called By Bozena coffey Crit Value Read Back Y Blood Gas Notified Time 1602 Sodium 167.0 H* 162 H* Potassium 2.7 L Chloride 131.0 H 125 H Carbon Dioxide 29 Anion Gap 11 BUN 43 H Creatinine 0.6 L Est GFR ( Amer) > 60 Est GFR (Non-Af Amer) > 60 POC Glucose (mg/dL) 144 H Random Glucose 137 H Lactic Acid Calcium 7.7 L Phosphorus Magnesium Total Bilirubin 0.8 AST 32 ALT 26 Alkaline Phosphatase 94 Total Protein 5.6 L Albumin 2.4 L D Globulin 3.2 Albumin/Globulin Ratio 0.7 L Lipase Venous Blood Potassium 3.4 L Urine Color Urine Clarity Urine pH Ur Specific [place] Urine Protein Urine Glucose (UA) Urine Ketones Urine Blood Urine Nitrate Urine Bilirubin Urine Urobilinogen Ur Leukocyte Esterase Urine RBC (Auto) Urine Microscopic WBC Ur Squamous Epith Cells Amorphous Sediment Urine Bacteria Hyaline Casts Random Vancomycin 05/21/18 05/21/18 05:30 05:30 WBC 9.3 RBC 3.60 L Hgb 10.3 L D Hct 33.5 L MCV 93.2 MCH 28.5 MCHC 30.6 L RDW 17.9 H Plt Count 155 MPV 12.0 H Neut % (Auto) 91.1 H Lymph % (Auto) 4.5 L [place] % (Auto) 4.2 Eos % (Auto) 0.0 Baso % (Auto) 0.2 Neut # (Auto) 8.5 H Lymph # (Auto) 0.4 L [place] # (Auto) 0.4 Eos # (Auto) 0.0 Baso # (Auto) 0.0 Neutrophils % (Manual) 90 H Band Neutrophils % 2 Lymphocytes % (Manual) 5 L Monocytes % (Manual) 3 Platelet Estimate Normal Plt Clumps, EDTA Large Platelets Present Hypochromasia (manual) Slight Anisocytosis (manual) Slight Tear Drop Cells Ovalocytes PT INR pO2 VBG pH VBG pCO2 VBG HCO3 VBG Total CO2 VBG O2 Sat (Calc) VBG Base Excess VBG Potassium Glucose Lactate FiO2 Crit Value Called To Crit Value Called By Crit Value Read Back Blood Gas Notified Time Sodium Potassium Chloride Carbon Dioxide Anion Gap BUN Creatinine Est GFR ( Amer) Est GFR (Non-Af Amer) POC Glucose (mg/dL) Random Glucose Lactic Acid Calcium Phosphorus Magnesium Total Bilirubin AST ALT Alkaline Phosphatase Total Protein Albumin Globulin Albumin/Globulin Ratio Lipase Venous Blood Potassium Urine Color Urine Clarity Urine pH Ur Specific [place] Urine Protein Urine Glucose (UA) Urine Ketones Urine Blood Urine Nitrate Urine Bilirubin Urine Urobilinogen Ur Leukocyte Esterase Urine RBC (Auto) Urine Microscopic WBC Ur Squamous Epith Cells Amorphous Sediment Urine Bacteria Hyaline Casts Random Vancomycin 6.0 Assessment & Plan (1) Toxic metabolic encephalopathy Assessment and Plan: Likely due to hypernatremia, infection, etc. However, the patient did have a gaze preference when she initially presented and does seem to favor the left side. I will order an EEG for further evaluation. Otherwise, continue hydration and treatment of any underlying infection. Thank you for this consultation. Status: Acute
--- NOTE | 2018-05-21 14:27 | CP.PCM.HP ---
History of Present Illness - History of Present Illness History of Present Illness: 83 y/o F, resident at [facility], Pt with multiple chronic medical conditions including: Advanced dementia, COPD, HT, Hx CABG, Seizure Disorder, O/A, S/P ORIF R Femur on , [facility] to be evaluated for AMS/ increased letharginess on DOA, with no improvement, associated to fever ( in the ER 101.4, HR 136). Worsening symptoms: Unable to answer questions. Generalized weakness. Aggravated factor: Standing/exercise. As per NH: No n/v/d, abdominal pain, urinary symptoms, syncope, CP, seizure, SOB, sick contact. Head CT: No acute intracranial pathology, age related changes, mild sphenoid sinus disease. CXR: No active disease. Present on Admission - Present on Admission Decubitus Ulcer Present: Yes Decubitus Ulcer Location: L-S Stage IV POA, upper back DTI POA Decubitus Ulcer Stage: IV Past Patient History - Infectious Disease Hx of Infectious Diseases: None - Past Medical History & Family History Past Medical History?: Yes - Past Social History Smoking Status: Unknown If Ever Smoked - CARDIAC Hx Cardiac Disorders: Yes Hx Congestive Heart Failure: Yes Hx Hypercholesterolemia: Yes Hx Hypertension: Yes - PULMONARY Hx Respiratory Disorders: Yes Hx Asthma: Yes Hx Chronic Obstructive Pulmonary Disease (COPD): Yes - NEUROLOGICAL Hx Neurological Disorder: Yes Hx Dementia: Yes Hx Seizures: Yes Other/Comment: fall - HEENT Hx HEENT Problems: No Hx Deafness: Yes (hearing aid) - RENAL Hx Chronic Kidney Disease: No - ENDOCRINE/METABOLIC Hx Endocrine Disorders: No Hx Diabetes Mellitus Type 2: No - HEMATOLOGICAL/ONCOLOGICAL Hx Blood Disorders: Yes Hx Anemia: Yes Hx Human Immunodeficiency Virus (HIV): No - INTEGUMENTARY Hx Dermatological Problems: No - MUSCULOSKELETAL/RHEUMATOLOGICAL Hx Arthritis: Yes (poly) Hx Back Pain: Yes Hx Falls: Yes Hx Fractures: Yes (L wrist , comp Fx T Spine, Fx L wrist, ORIF R distal Femur Fx 04-11-18) Hx Osteoporosis: Yes Hx Unsteady Gait: Yes Other/Comment: ORIF Right Pathological distal femur fracture 04-11-18 - GASTROINTESTINAL Hx Gastrointestinal Disorders: Yes Hx Constipation: Yes Other/Comment: Cholecystitis - GENITOURINARY/GYNECOLOGICAL Hx Genitourinary Disorders: Yes - PSYCHIATRIC Hx Psychophysiologic Disorder: Yes Hx Anxiety: Yes Hx Depression: Yes Hx Substance Use: No - SURGICAL HISTORY Hx Surgeries: Yes Hx Cholecystectomy: Yes Hx Coronary Artery Bypass Graft: Yes Hx Open Reduction Internal Fixation: Yes Other/Comment: ORIF R Pathological distal Femur Fx 04-11-18, compression Fx T Spine, Fx L wrist - ANESTHESIA Hx Anesthesia: Yes Hx Anesthesia Reactions: No Hx Malignant Hyperthermia: No Has any member of the family had a problem w/ anesthesia?: No Meds Allergies/Adverse Reactions: Allergies Allergy/AdvReac Type Severity Reaction Status Date / Time Penicillins Allergy RASH Verified 05/25/17 12:15 Physical Exam - Constitutional Appears: Chronically Ill - Head Exam Head Exam: NORMAL INSPECTION - Eye Exam Additional comments: Sluggish pupils - ENT Exam ENT Exam: Normal Exam - Neck Exam Neck exam: Positive for: Normal Inspection - Respiratory Exam Respiratory Exam: Decreased Breath Sounds (at bases) - Cardiovascular Exam Cardiovascular Exam: REGULAR RHYTHM - GI/Abdominal Exam GI & Abdominal Exam: Normal Bowel Sounds, Soft - Extremities Exam Additional comments: R knee/femur immobilizer. - Back Exam Additional comments: Sacral decubitus ulcer stage IV. Upper back DTI - Neurological Exam Additional comments: Lethargic,arousable, mumbling words, unable to follows commands, generalized weakness. - Psychiatric Exam Additional comments: Lethargic. - Skin Skin Exam: Warm Results - Vital Signs Recent Vital Signs: Last Vital Signs Temp 98.8 F 05/21/18 12:00 Pulse 99 H 05/21/18 12:00 Resp 33 H 05/21/18 12:00 BP 112/49 L 05/21/18 12:00 Pulse Ox 98 05/21/18 12:00 reviewed Roderick - Labs Result Diagrams: 06/03/18 09:50 06/01/18 06:00 Labs: Laboratory Results - last 24 hr 05/20/18 05/20/18 05/20/18 13:00 13:00 13:20 WBC RBC Hgb Hct MCV MCH MCHC RDW Plt Count MPV Neut % (Auto) Lymph % (Auto) [place] % (Auto) Eos % (Auto) Baso % (Auto) Neut # (Auto) Lymph # (Auto) [place] # (Auto) Eos # (Auto) Baso # (Auto) Neutrophils % (Manual) 92 H Band Neutrophils % 2 Lymphocytes % (Manual) 2 L Monocytes % (Manual) 4 Platelet Estimate Normal Plt Clumps, EDTA Present Large Platelets Present Hypochromasia (manual) Anisocytosis (manual) Slight Tear Drop Cells Slight Ovalocytes Slight PT 20.0 H INR 1.8 pO2 VBG pH VBG pCO2 VBG HCO3 VBG Total CO2 VBG O2 Sat (Calc) VBG Base Excess VBG Potassium Sodium Chloride Glucose Lactate FiO2 Crit Value Called To Crit Value Called By Crit Value Read Back Blood Gas Notified Time Potassium Carbon Dioxide Anion Gap BUN Creatinine Est GFR ( Amer) Est GFR (Non-Af Amer) POC Glucose (mg/dL) Random Glucose Lactic Acid Calcium Phosphorus Magnesium Total Bilirubin AST ALT Alkaline Phosphatase Total Protein Albumin Globulin Albumin/Globulin Ratio Venous Blood Potassium Urine Color [place] Urine Clarity Cloudy Urine pH 8.0 Ur Specific [place] 1.029 Urine Protein >=500 Urine Glucose (UA) Neg Urine Ketones Negative Urine Blood Negative Urine Nitrate Negative Urine Bilirubin Small Urine Urobilinogen 2.0 H Ur Leukocyte Esterase Neg Urine RBC (Auto) 3 Urine Microscopic WBC 5 Ur Squamous Epith Cells 3 Amorphous Sediment Occ H Urine Bacteria Occ H Hyaline Casts 6-10 H Random Vancomycin 05/20/18 05/20/18 05/20/18 15:40 15:40 15:52 WBC RBC Hgb Hct MCV MCH MCHC RDW Plt Count MPV Neut % (Auto) Lymph % (Auto) [place] % (Auto) Eos % (Auto) Baso % (Auto) Neut # (Auto) Lymph # (Auto) [place] # (Auto) Eos # (Auto) Baso # (Auto) Neutrophils % (Manual) Band Neutrophils % Lymphocytes % (Manual) Monocytes % (Manual) Platelet Estimate Plt Clumps, EDTA Large Platelets Hypochromasia (manual) Anisocytosis (manual) Tear Drop Cells Ovalocytes PT INR pO2 76 H VBG pH 7.45 H VBG pCO2 47 VBG HCO3 30.7 VBG Total CO2 34.1 H VBG O2 Sat (Calc) 97.3 H VBG Base Excess 7.5 H VBG Potassium 3.4 L Sodium 167.0 H* Chloride 131.0 H Glucose 178 H Lactate 2.5 H FiO2 100.0 Crit Value Called To maynor Alves do Crit Value Called By Bozena coffey Crit Value Read Back Y Blood Gas Notified Time 1602 Potassium Carbon Dioxide Anion Gap BUN Creatinine Est GFR ( Amer) Est GFR (Non-Af Amer) POC Glucose (mg/dL) Random Glucose Lactic Acid 1.8 Calcium Phosphorus 3.1 Magnesium 2.4 H Total Bilirubin AST ALT Alkaline Phosphatase Total Protein Albumin Globulin Albumin/Globulin Ratio Venous Blood Potassium 3.4 L Urine Color Urine Clarity Urine pH Ur Specific [place] Urine Protein Urine Glucose (UA) Urine Ketones Urine Blood Urine Nitrate Urine Bilirubin Urine Urobilinogen Ur Leukocyte Esterase Urine RBC (Auto) Urine Microscopic WBC Ur Squamous Epith Cells Amorphous Sediment Urine Bacteria Hyaline Casts Random Vancomycin 05/20/18 05/21/18 05/21/18 17:00 05:30 05:30 WBC 9.3 RBC 3.60 L Hgb 10.3 L D Hct 33.5 L MCV 93.2 MCH 28.5 MCHC 30.6 L RDW 17.9 H Plt Count 155 MPV 12.0 H Neut % (Auto) 91.1 H Lymph % (Auto) 4.5 L [place] % (Auto) 4.2 Eos % (Auto) 0.0 Baso % (Auto) 0.2 Neut # (Auto) 8.5 H Lymph # (Auto) 0.4 L [place] # (Auto) 0.4 Eos # (Auto) 0.0 Baso # (Auto) 0.0 Neutrophils % (Manual) 90 H Band Neutrophils % 2 Lymphocytes % (Manual) 5 L Monocytes % (Manual) 3 Platelet Estimate Normal Plt Clumps, EDTA Large Platelets Present Hypochromasia (manual) Slight Anisocytosis (manual) Slight Tear Drop Cells Ovalocytes PT INR pO2 VBG pH VBG pCO2 VBG HCO3 VBG Total CO2 VBG O2 Sat (Calc) VBG Base Excess VBG Potassium Sodium 162 H* Chloride 125 H Glucose Lactate FiO2 Crit Value Called To Crit Value Called By Crit Value Read Back Blood Gas Notified Time Potassium 2.7 L Carbon Dioxide 29 Anion Gap 11 BUN 43 H Creatinine 0.6 L Est GFR ( Amer) > 60 Est GFR (Non-Af Amer) > 60 POC Glucose (mg/dL) 144 H Random Glucose 137 H Lactic Acid Calcium 7.7 L Phosphorus Magnesium Total Bilirubin 0.8 AST 32 ALT 26 Alkaline Phosphatase 94 Total Protein 5.6 L Albumin 2.4 L D Globulin 3.2 Albumin/Globulin Ratio 0.7 L Venous Blood Potassium Urine Color Urine Clarity Urine pH Ur Specific [place] Urine Protein Urine Glucose (UA) Urine Ketones Urine Blood Urine Nitrate Urine Bilirubin Urine Urobilinogen Ur Leukocyte Esterase Urine RBC (Auto) Urine Microscopic WBC Ur Squamous Epith Cells Amorphous Sediment Urine Bacteria Hyaline Casts Random Vancomycin 05/21/18 05:30 WBC RBC Hgb Hct MCV MCH MCHC RDW Plt Count MPV Neut % (Auto) Lymph % (Auto) [place] % (Auto) Eos % (Auto) Baso % (Auto) Neut # (Auto) Lymph # (Auto) [place] # (Auto) Eos # (Auto) Baso # (Auto) Neutrophils % (Manual) Band Neutrophils % Lymphocytes % (Manual) Monocytes % (Manual) Platelet Estimate Plt Clumps, EDTA Large Platelets Hypochromasia (manual) Anisocytosis (manual) Tear Drop Cells Ovalocytes PT INR pO2 VBG pH VBG pCO2 VBG HCO3 VBG Total CO2 VBG O2 Sat (Calc) VBG Base Excess VBG Potassium Sodium Chloride Glucose Lactate FiO2 Crit Value Called To Crit Value Called By Crit Value Read Back Blood Gas Notified Time Potassium Carbon Dioxide Anion Gap BUN Creatinine Est GFR ( Amer) Est GFR (Non-Af Amer) POC Glucose (mg/dL) Random Glucose Lactic Acid Calcium Phosphorus Magnesium Total Bilirubin AST ALT Alkaline Phosphatase Total Protein Albumin Globulin Albumin/Globulin Ratio Venous Blood Potassium Urine Color Urine Clarity Urine pH Ur Specific [place] Urine Protein Urine Glucose (UA) Urine Ketones Urine Blood Urine Nitrate Urine Bilirubin Urine Urobilinogen Ur Leukocyte Esterase Urine RBC (Auto) Urine Microscopic WBC Ur Squamous Epith Cells Amorphous Sediment Urine Bacteria Hyaline Casts Random Vancomycin 6.0 reviewed J.P. - Imaging and Cardiology Chest x-ray Status: Report reviewed by me (J.P.) CT scan - head Status: Report reviewed by me (J.P.) Assessment & Plan (1) Altered mental status Status: Acute Priority: High (2) Toxic metabolic encephalopathy Status: Acute Priority: High (3) Sepsis Assessment and Plan: 2nd to UTI and L-S decubitus Stage IV Status: Acute Priority: High (4) UTI (urinary tract infection) Status: Acute Priority: High (5) Dehydration Status: Resolved Priority: High (6) Hypernatremia Status: Resolved Priority: High (7) Decubitus ulcer of sacral area Status: Acute Priority: High Comment: Stage IV (8) Deep tissue injury Status: Acute Comment: Thoracic spine (9) Chronic back pain Status: Chronic Priority: High (10) Hx of fracture of femur Assessment and Plan: ORIF R Femur Fx 04-11-18 Status: Chronic Priority: High (11) HTN (hypertension) Status: Acute Priority: Low (12) COPD (chronic obstructive pulmonary disease) Status: Chronic Priority: Medium (13) Hx of congestive heart failure Status: Chronic (14) Seizure disorder Status: Chronic - Assessment and Plan (Free Text) Plan: F/U EKG, Blood C-S, U C-S, MRSA screen, Swallowing eval, continue Levaquin, Vanco, Lovenox, IVF, and rest of Tx, O2 NC, Neurology consult appreciated. Critical care time: 60 min. - Date & Time Date: 05/21/18 Time: 13:10
--- NOTE | 2018-05-21 16:51 | CARD ---
APPROVED REPORT Date of service: 05/20/2018 EKG Measurement Heart [id number] <Conclusion> Sinus tachycardia Nonspecific T wave abnormality Abnormal ECG
[2018-05-21] MEDS: levETIRAcetam 500 MG in Sodium Chloride 0.9% 100 ML IVPB SCH (20:39)
[2018-05-22 05:52] LABS: HEMOGLOBIN 10.3 g/dL (12.0-16.0); MEAN CELL VOLUME 94.8 fl (81.0-99.0); MEAN CORPUSCULAR HEMOGLOBIN 28.8 pg (27.0-31.0); MEAN CORPUSCULAR HGB CONC 30.4 g/dL (33.0-37.0); RBC 3.57 Mil/uL (3.80-5.20); RED CELL DISTRIBUTION WIDTH 18.4 % (11.5-14.5)
[2018-05-22] MEDS: Sodium Chloride 0.9% 1,000 ML IV SCH (06:10)
[2018-05-22 06:33] LABS: BLOOD UREA NITROGEN 25 mg/dl (7-17); CALCIUM 8.2 mg/dL (8.4-10.2); GFR NON-AFRICAN AMERICAN > 60
--- NOTE | 2018-05-22 07:47 | CP.CCUPN ---
CCU Subjective - Physician Review Events Since Last Encounter (Free Text): 05/22/18 07:37 The patient was Seen/interviewed and examined by me at the bedside during ICU round, Medical records reviewed and Management issues were discussed and formulated with the house staff. Events reviewed 83 Years old Female with PMHx of HTN, Hypercholesterolemia, CHF, COPD, Osteoporosis, Seizures, Anemia, Anxiety, Arthritis (poly), Asthma, Back Problems, Dementia, Depression and Fractures (L wrist , comp Fx T Spine) Who initially presents to Emergency department from [facility] for AMS. Per report more somnolent and now possible fever. No reports vomiting, diarrhea or recent seizures. She was admitted to the ICU with AMS, lethargy, R/O CVA, hypernatremia, dehydration and fever/Sepsis Awake, Less lethargy, intermittently follows some commands Comfortable, NAD No Vasopressors Afebrile, NSR on the monitor Last 24H I&O 4499/850 Patient failed Swallow evaluation, will place NG tube Start tube feeding and free water flush This morning labs revealed Improved Leucocytosis, Improved renal function BUN/Cr down to 25/0.5 Hyperkalemia 2.9 and Hypernatremia 164 K suplemented Switching IV Fluids to 0.45% NS at 100 cc/H CCU Objective - Vital Signs / Intake & Output Vital Signs (Last 4 hours): Vital Signs Temp Pulse Resp BP Pulse Ox 05/22/18 06:00 89 20 133/51 L 95 05/22/18 04:00 98.3 F 56 L 25 H 127/55 L 98 Intake and Output (Last 8hrs): Intake & Output 05/21/18 05/22/18 05/22/18 22:59 06:59 14:59 Intake Total 1850 1250 Output Total 450 400 Balance 1400 850 Intake: IV 1200 1250 Intake, Piggyback 650 Oral 0 Output: Urine 450 400 Urethral (De La Cruz) 450 400 Stool 0 Other: # Bowel Movements 0 - Physical Exam Physical Exam Limitations: Positive for: Altered Mental Status Head: Positive for: Atraumatic, Normocephalic Pupils: Positive for: PERRL Conjunctiva: Positive for: Normal Mouth: Positive for: Dry Nose (External): Positive for: Atraumatic Neck: Positive for: Normal Range of Motion Respiratory/Chest: Positive for: Rhonchi Cardiovascular: Positive for: Tachycardic Abdomen: Positive for: Normal Bowel Sounds Upper Extremity: Positive for: Normal Inspection Lower Extremity: Positive for: Normal Inspection Neurological: Positive for: Other (no response to verbal stimuli) - Medications Active Medications: Active Medications Generic Name Dose Route Start Last Admin Trade Name Freq PRN Reason Stop Dose Admin Enoxaparin Sodium 30 mg 05/20/18 15:30 05/21/18 09:16 Lovenox SC 30 mg DAILY BELLE Administration Protocol Vancomycin HCl 750 mg/ Sodium 250 mls @ 250 mls/hr 05/21/18 09:00 05/21/18 20:40 Chloride IVPB 250 mls/hr Q12 BELLE Administration Protocol Levofloxacin/Dextrose 250 mg in 50 mls @ 50 mls/hr 05/22/18 09:00 Levaquin 250mg IVPB DAILY BELLE Levetiracetam 500 mg/ Sodium 105 mls @ 210 mls/hr 05/21/18 21:00 05/21/18 20:39 Chloride IVPB 210 mls/hr Q12 BELLE Administration Sodium Chloride 1,000 mls @ 150 mls/hr 05/21/18 21:30 05/22/18 06:10 Sodium Chloride 0.9% IV 05/22/18 21:23 150 mls/hr .Q6H40M BELLE Administration - Patient Studies Lab Studies: Microbiology Studies 05/20/18 13:00 Blood Culture - Preliminary Blood NO GROWTH AFTER 24 HOURS 05/20/18 13:34 Urine Culture - Preliminary Urine,De La Cruz Gram Positive Cocci Lab Studies 05/22/18 05/22/18 05/21/18 Range/Units 04:30 04:30 15:54 WBC 9.0 (4.8-10.8) K/uL RBC 3.57 L (3.80-5.20) Mil/uL Hgb 10.3 L (12.0-16.0) g/dL Hct 33.8 L (34.0-47.0) % MCV 94.8 (81.0-99.0) fl MCH 28.8 (27.0-31.0) pg MCHC 30.4 L (33.0-37.0) g/dL RDW 18.4 H (11.5-14.5) % Plt Count 129 L D (130-400) K/uL Neutrophils % (Manual) (42-75) % Band Neutrophils % (0-2) % Lymphocytes % (Manual) (20-50) % Monocytes % (Manual) (0-10) % Platelet Estimate (NORMAL) Large Platelets Hypochromasia (manual) Anisocytosis (manual) Sodium 164 H* (132-148) mmol/l Potassium 2.9 L (3.6-5.0) MMOL/L Chloride 128 H (98-107) mmol/L Carbon Dioxide 25 (22-30) mmol/L Anion Gap 14 (10-20) BUN 25 H (7-17) mg/dl Creatinine 0.5 L (0.7-1.2) mg/dl Est GFR ( Amer) > 60 Est GFR (Non-Af Amer) > 60 POC Glucose (mg/dL) 108 (65-110) mg/dL Random Glucose 111 H (65-105) mg/dL Calcium 8.2 L (8.4-10.2) mg/dL 05/21/18 Range/Units 05:30 WBC (4.8-10.8) K/uL RBC (3.80-5.20) Mil/uL Hgb (12.0-16.0) g/dL Hct (34.0-47.0) % MCV (81.0-99.0) fl MCH (27.0-31.0) pg MCHC (33.0-37.0) g/dL RDW (11.5-14.5) % Plt Count (130-400) K/uL Neutrophils % (Manual) 90 H (42-75) % Band Neutrophils % 2 (0-2) % Lymphocytes % (Manual) 5 L (20-50) % Monocytes % (Manual) 3 (0-10) % Platelet Estimate Normal (NORMAL) Large Platelets Present Hypochromasia (manual) Slight Anisocytosis (manual) Slight Sodium (132-148) mmol/l Potassium (3.6-5.0) MMOL/L Chloride (98-107) mmol/L Carbon Dioxide (22-30) mmol/L Anion Gap (10-20) BUN (7-17) mg/dl Creatinine (0.7-1.2) mg/dl Est GFR ( Amer) Est GFR (Non-Af Amer) POC Glucose (mg/dL) (65-110) mg/dL Random Glucose (65-105) mg/dL Calcium (8.4-10.2) mg/dL Laboratory Results - last 24 hr 05/21/18 05/21/18 05/22/18 05:30 15:54 04:30 WBC 9.0 RBC 3.57 L Hgb 10.3 L Hct 33.8 L MCV 94.8 MCH 28.8 MCHC 30.4 L RDW 18.4 H Plt Count 129 L D Neutrophils % (Manual) 90 H Band Neutrophils % 2 Lymphocytes % (Manual) 5 L Monocytes % (Manual) 3 Platelet Estimate Normal Large Platelets Present Hypochromasia (manual) Slight Anisocytosis (manual) Slight Sodium Potassium Chloride Carbon Dioxide Anion Gap BUN Creatinine Est GFR ( Amer) Est GFR (Non-Af Amer) POC Glucose (mg/dL) 108 Random Glucose Calcium 05/22/18 04:30 WBC RBC Hgb Hct MCV MCH MCHC RDW Plt Count Neutrophils % (Manual) Band Neutrophils % Lymphocytes % (Manual) Monocytes % (Manual) Platelet Estimate Large Platelets Hypochromasia (manual) Anisocytosis (manual) Sodium 164 H* Potassium 2.9 L Chloride 128 H Carbon Dioxide 25 Anion Gap 14 BUN 25 H Creatinine 0.5 L Est GFR ( Amer) > 60 Est GFR (Non-Af Amer) > 60 POC Glucose (mg/dL) Random Glucose 111 H Calcium 8.2 L EKG/Cardiology Studies: Cardiology / EKG Studies 05/21/18 09:00 ELECTROCARDIOGRAM DAILY Comment: Mode Of Transportation: Reason For Exam: AMS Fingerstick Blood Sugar Results: 187 Review of Systems - Review of Systems Systems not reviewed;Unavailable: Altered Mental Status Critical Care Progress Note - Extremities/Vascular Does the Patient have a Central Venous Catheter?: No Does the Patient need a Central Venous Catheter?: No Does the Patient have a De La Cruz Catheter?: No Does the Patient need a De La Cruz Catheter?: No - Nutrition Nutrition: Nutrition Category Date Time Status NPO Diet [DIET] Diets 05/20/18 Lunch Active Assessment/Plan (1) Altered mental status Current Visit: Yes Status: Acute (2) Decubitus ulcer of sacral area Current Visit: Yes Status: Acute Priority: High (3) Dehydration Current Visit: Yes Status: Acute (4) Hypernatremia Current Visit: Yes Status: Acute (5) Sepsis Current Visit: Yes Status: Acute Priority: High (6) Toxic metabolic encephalopathy Current Visit: Yes Status: Acute - Assessment and Plan (Free Text) Assessment: Continue with ICU care for hemodynamic and Respiratory monitoring Continue medications, reviewed Maintain aspiration precautions Patient failed Swallow evaluation, will place NG tube Start tube feeding and free water flush This morning labs revealed Improved Leucocytosis, Improved renal function BUN/Cr down to 25/0.5 Hyperkalemia 2.9 and Hypernatremia 164 K suplemented Optimize fluid status, IV fluid Switching IV Fluids to 0.45% NS at 100 cc/H DVT prophylaxis
[2018-05-22] MEDS: levoFLOXacin 250 mg in D5W 250 MG/50 ML BAG IVPB SCH (08:39)
[2018-05-22] MEDS: levETIRAcetam 500 MG in Sodium Chloride 0.9% 100 ML IVPB SCH (08:39)
[2018-05-22] MEDS: Enoxaparin 30 mg Syringe SC SCH (08:41)
[2018-05-22] MEDS: Sodium Chloride 0.45% 1,000 ML IV SCH ×2 (10:36→20:30)
[2018-05-22] MEDS ORDERED: Potassium Chloride 20 mEq/15 ml LIQ UD PO ONE (11:36)
--- NOTE | 2018-05-22 11:48 | CP.PCM.PN ---
Subjective - Date & Time of Evaluation Date of Evaluation: 05/22/18 Time of Evaluation: 11:46 - Subjective Subjective: Neurology Follow-Up Note: Mrs. Laureano was evaluated this morning at bedside in the ICU. Pt unable to answer questions or follow commands. Chart reviewed; discussed with primary rn. ROS unobtainable from pt 2/2 her current condition. Objective - Vital Signs/Intake and Output Vital Signs (last 24 hours): Temp Pulse Resp BP Pulse Ox 97.9 F 96 H 27 H 144/62 98 05/22/18 07:54 05/22/18 10:00 05/22/18 10:00 05/22/18 10:00 05/22/18 10:00 Intake and Output: 05/22/18 05/22/18 06:59 18:59 Intake Total 1850 300 Output Total 400 Balance 1450 300 - Medications Medications: Current Medications Enoxaparin Sodium (Lovenox) 30 mg SC DAILY [facility]; Protocol Last Admin: 05/22/18 08:41 Dose: 30 mg Vancomycin HCl 750 mg/ Sodium (Chloride) 250 mls @ 250 mls/hr IVPB Q12 [facility]; Protocol Last Admin: 05/22/18 08:42 Dose: 250 mls/hr Levofloxacin/Dextrose (Levaquin 250mg) 250 mg in 50 mls @ 50 mls/hr IVPB DAILY BELLE Last Admin: 05/22/18 08:39 Dose: 50 mls/hr Levetiracetam 500 mg/ Sodium (Chloride) 105 mls @ 210 mls/hr IVPB Q12 BELLE Last Admin: 05/22/18 08:39 Dose: 210 mls/hr Sodium Chloride (Sodium Chloride 0.9%) 1,000 mls @ 150 mls/hr IV .Q6H40M [facility] Stop: 05/22/18 21:23 Last Admin: 05/22/18 06:10 Dose: 150 mls/hr Sodium Chloride (Sodium Chloride 0.45%) 1,000 mls @ 100 mls/hr IV .Q10H [facility] Stop: 05/23/18 10:29 Last Admin: 05/22/18 10:36 Dose: 100 mls/hr Potassium Chloride (Potassium Chloride 10 Meq/100 Ml) 100 mls @ 100 mls/hr IVPB Q1 BELLE Stop: 05/22/18 14:59 Potassium Chloride (Potassium Chloride Oral Soln) 20 meq PO ONCE ONE Stop: 05/22/18 11:37 - Labs Labs: 05/22/18 04:30 05/22/18 04:30 PT 20.0 Seconds (9.8-13.1) H 05/20/18 13:00 INR 1.8 05/20/18 13:00 APTT 30.8 Seconds (25.6-37.1) 05/20/18 13:00 - Constitutional Appears: Confused, Cachectic - Head Exam Head Exam: ATRAUMATIC, NORMAL INSPECTION, NORMOCEPHALIC - Eye Exam Eye Exam: Normal appearance, PERRL Pupil Exam: NORMAL ACCOMODATION Additional comments: opens eyes spontaneously - ENT Exam ENT Exam: Mucous Membranes Moist - Neck Exam Neck Exam: Normal Inspection - Respiratory Exam Respiratory Exam: NORMAL BREATHING PATTERN - Cardiovascular Exam Cardiovascular Exam: REGULAR RHYTHM (hr 92) - GI/Abdominal Exam GI & Abdominal Exam: Soft Additional comments: ngt in place - Exam Additional comments: baeza cath in place - Extremities Exam Extremities Exam: Normal Inspection. absent: Calf Tenderness, Pedal Edema - Back Exam Back Exam: NORMAL INSPECTION - Neurological Exam Neurological Exam: Altered, Awake, CN II-XII Intact, Reflexes Normal. absent: Alert Additional comments: Awake, does not follow commands. Nonverbal, moans during exam and with sternal rub; periods of incomprehensible speech during exam noted. Moves BUE independently but with generalized weakness; + resistance noted during exam to all extremities. No tremors noted. Toes down-going. Unable to assess sensation 2/2 pt nonverbal and not following commands. - Psychiatric Exam Psychiatric exam: absent: Normal Affect, Normal Mood Additional comments: pt nonverbal; moans during exam - Skin Skin Exam: Dry, Normal Color, Warm Assessment and Plan (1) Toxic metabolic encephalopathy Assessment & Plan: Imaging reviewed: -CT head (05/20/18): No acute intracranial pathology. Age-related changes. Mild sphenoid sinus disease. No significant interval change. -Likely 2/2 to infection and hypernatremia. -Continue current treatment and management of infectious process and electrolyte imbalance (hypernatremia and hypokalemia noted in today's labs). -EEG was completed, results pending at this time--will f/u once resulted. -Continue Keppra 500mg IV Q12 as ordered. -Still pending Lamotrigine level to be resulted. -Notify neuro team of any acute changes in pt's condition. Case discussed with Dr. Flanagan Status: Acute
--- NOTE | 2018-05-22 11:57 | PCM.EEG ---
Electroencephalogram Report - Electroencephalogram Report Procedure Date: 05/21/18 Medication: Yudy Mcrae Interpretation: Technical Information: This was a 16-channel EEG, 1-channel EKG , performed using an Xyleme machine., electrodes were applied according to the 10/20 international placement system, impedances were less than 5 K Ohm. Start 15;37 End; 16;32 Total; 55 min Clinical Information: This EEG was performed on a 83 y/o woman with dementia and seizures. EEG Detail: During resting wakefulness there was a symmetric posterior dominant rhythm at 7 Hz, 30-50 uV, which was poolry reactive to eye opening an d closing. Drowsiness (16;11) was associated with fragmentation of the posterior dominant rhythm and with slow roving eye movements. Sleep was not seen. There were occasional periods of relative EEG attenuation lasting 3 to 4 seconds. Hyperventilation was not performed. Photic stimulation was not performed. There were bitemporal right more than left interictal epileptiform discharges. ECG was associated with a normal sinus rhythm. Impression: This is an abnormal EEG record that demonstrate the presence of a mild to moderate non specific diffuse disturbance of cortical activity, this is in keeping with a diffuse way matter dysfunction. These findings do not support a specific etiology. 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 No seizures were captured.
[2018-05-22] MEDS: Potassium CL 10mEq/100ml 100 ML IVPB SCH ×3 (12:24→15:05)
--- NOTE | 2018-05-22 15:49 | CP.PCM.PN ---
Subjective - Date & Time of Evaluation Date of Evaluation: 05/22/18 Time of Evaluation: 12:40 - Subjective Subjective: F/U AMS Moaning, minimal response to tactile stimuli Objective - Vital Signs/Intake and Output Vital Signs (last 24 hours): Temp Pulse Resp BP Pulse Ox 98.4 F 84 27 H 116/45 L 100 05/22/18 12:00 05/22/18 14:00 05/22/18 14:00 05/22/18 14:00 05/22/18 14:00 Intake and Output: 05/22/18 05/22/18 06:59 18:59 Intake Total 1850 1530 Output Total 400 Balance 1450 1530 - Medications Medications: Current Medications Enoxaparin Sodium (Lovenox) 30 mg SC DAILY [facility]; Protocol Last Admin: 05/22/18 08:41 Dose: 30 mg Hydromorphone HCl (Dilaudid) 0.5 mg IVP Q4 PRN PRN Reason: Pain, moderate (4-7) Last Admin: 05/22/18 14:35 Dose: 0.5 mg Vancomycin HCl 750 mg/ Sodium (Chloride) 250 mls @ 250 mls/hr IVPB Q12 BELLE; Protocol Last Admin: 05/22/18 08:42 Dose: 250 mls/hr Levofloxacin/Dextrose (Levaquin 250mg) 250 mg in 50 mls @ 50 mls/hr IVPB DAILY [facility] Last Admin: 05/22/18 08:39 Dose: 50 mls/hr Sodium Chloride (Sodium Chloride 0.9%) 1,000 mls @ 150 mls/hr IV .Q6H40M [facility] Stop: 05/22/18 21:23 Last Admin: 05/22/18 06:10 Dose: 150 mls/hr Sodium Chloride (Sodium Chloride 0.45%) 1,000 mls @ 100 mls/hr IV .Q10H BELLE Stop: 05/23/18 10:29 Last Admin: 05/22/18 10:36 Dose: 100 mls/hr Levetiracetam (Keppra) 500 mg PO BID [facility] Sodium Hypochlorite (Dakins Solution 0.125%) 1 appl TOP Q12H BELLE - Labs Labs: 05/22/18 04:30 05/22/18 04:30 PT 20.0 Seconds (9.8-13.1) H 01/19/19 13:00 INR 1.8 05/20/18 13:00 APTT 30.8 Seconds (25.6-37.1) 05/20/18 13:00 - Constitutional Appears: No Acute Distress, Chronically Ill - Head Exam Head Exam: NORMAL INSPECTION - Eye Exam Additional comments: Pupils Sluggish - ENT Exam ENT Exam: Normal Exam - Neck Exam Neck Exam: Normal Inspection - Respiratory Exam Respiratory Exam: Decreased Breath Sounds (at bases) - Cardiovascular Exam Cardiovascular Exam: REGULAR RHYTHM - GI/Abdominal Exam GI & Abdominal Exam: Soft, Normal Bowel Sounds - Extremities Exam Additional comments: R lateral calf DI, R knee/Femur in immobilize - Back Exam Additional comments: Sacral decubitus ulcer stage IV. Uper back DTI - Neurological Exam Additional comments: Lethargic, mumbling sounds, unable to follows commands, generalized weakness - Psychiatric Exam Additional comments: Lethargic - Skin Skin Exam: Warm Assessment and Plan (1) Altered mental status Status: Acute (2) Toxic metabolic encephalopathy Status: Acute (3) Sepsis Status: Acute (4) UTI (urinary tract infection) Status: Acute (5) Dehydration Status: Acute (6) Hypernatremia Status: Acute (7) Decubitus ulcer of sacral area Status: Acute (8) Deep tissue injury Status: Acute (9) Chronic back pain Status: Chronic (10) Hx of fracture of femur Status: Chronic (11) HTN (hypertension) Status: Acute (12) COPD (chronic obstructive pulmonary disease) Status: Chronic (13) Hx of congestive heart failure Status: Chronic (14) Seizure disorder Status: Chronic - Assessment and Plan (Free Text) Plan: Continue Lizzie Jimenes, get in touch with family for concern of Peg-T insertion. Critical care time: 32 min.
[2018-05-22] MEDS: levETIRAcetam 100 mg/ml (5ml) Oral Syringe PO SCH (16:28)
[2018-05-23 05:32] LABS: HEMOGLOBIN 10.1 g/dL (12.0-16.0); MEAN CELL VOLUME 93.7 fl (81.0-99.0); MEAN CORPUSCULAR HEMOGLOBIN 29.5 pg (27.0-31.0); MEAN CORPUSCULAR HGB CONC 31.5 g/dL (33.0-37.0); RBC 3.43 Mil/uL (3.80-5.20); RED CELL DISTRIBUTION WIDTH 18.1 % (11.5-14.5); WHITE BLOOD COUNT 12.5 K/uL (4.8-10.8)
[2018-05-23 05:51] LABS: ALB/GLOB RATIO 0.7 (1.0-2.1); ALBUMIN 2.2 g/dL (3.5-5.0); ALT/SGPT 27 U/L (9-52); AST/SGOT 53 U/L (14-36); BLOOD UREA NITROGEN 20 mg/dl (7-17); CALCIUM 8.5 mg/dL (8.4-10.2); GFR NON-AFRICAN AMERICAN > 60
[2018-05-23] MEDS: Sodium Chloride 0.45% 1,000 ML IV SCH (06:30)
[2018-05-23] MEDS ORDERED: Potassium Chloride 20 mEq/15 ml LIQ UD PO ONE (08:20)
[2018-05-23] MEDS ORDERED: Sodium Chloride 0.45% 1,000 ML IV SCH (08:23)
[2018-05-23] MEDS: levETIRAcetam 100 mg/ml (5ml) Oral Syringe PO SCH ×2 (08:24→16:30)
[2018-05-23] MEDS: Enoxaparin 30 mg Syringe SC SCH (08:24)
[2018-05-23] MEDS: levoFLOXacin 250 mg in D5W 250 MG/50 ML BAG IVPB SCH (08:25)
--- NOTE | 2018-05-23 09:00 | CP.PCM.CON ---
History of Present Illness - History of Present Illness History of Present Illness: Orthopedic consultation: Dr. Barboza Patient is an 83 y/o female with multiple comorbidities, well known to Dr. Barboza's service. Patient was recently admitted from senior care due to AMS and fever. Patient underwent R distal femur ORIF on 04/19/[address] Barboza and was discharged to senior care stable. Dr. Barboza was reconsulted for postop orthopedic f/u and staple removal. Patient is a poor historian due to dementia. Review of Systems - Review of Systems All systems: reviewed and no additional remarkable complaints except Review of Systems: unable to assess due to dementia Past Patient History - Infectious Disease Hx of Infectious Diseases: None - Past Medical History & Family History Past Medical History?: Yes - Past Social History Smoking Status: Unknown If Ever Smoked - CARDIAC Hx Cardiac Disorders: Yes Hx Congestive Heart Failure: Yes Hx Hypercholesterolemia: Yes Hx Hypertension: Yes - PULMONARY Hx Respiratory Disorders: Yes Hx Asthma: Yes Hx Chronic Obstructive Pulmonary Disease (COPD): Yes - NEUROLOGICAL Hx Neurological Disorder: Yes Hx Dementia: Yes Hx Seizures: Yes Other/Comment: fall - HEENT Hx HEENT Problems: No Hx Deafness: Yes (hearing aid) - RENAL Hx Chronic Kidney Disease: No - ENDOCRINE/METABOLIC Hx Endocrine Disorders: No Hx Diabetes Mellitus Type 2: No - HEMATOLOGICAL/ONCOLOGICAL Hx Blood Disorders: Yes Hx Anemia: Yes Hx Human Immunodeficiency Virus (HIV): No - INTEGUMENTARY Hx Dermatological Problems: No - MUSCULOSKELETAL/RHEUMATOLOGICAL Hx Arthritis: Yes (poly) Hx Back Pain: Yes Hx Falls: Yes Hx Fractures: Yes (L wrist , comp Fx T Spine, Fx L wrist, ORIF R distal Femur Fx 04-11-18) Hx Osteoporosis: Yes Hx Unsteady Gait: Yes Other/Comment: ORIF Right Pathological distal femur fracture 04-11-18 - GASTROINTESTINAL Hx Gastrointestinal Disorders: Yes Hx Constipation: Yes Other/Comment: Cholecystitis - GENITOURINARY/GYNECOLOGICAL Hx Genitourinary Disorders: Yes - PSYCHIATRIC Hx Psychophysiologic Disorder: Yes Hx Anxiety: Yes Hx Depression: Yes Hx Substance Use: No - SURGICAL HISTORY Hx Surgeries: Yes Hx Cholecystectomy: Yes Hx Coronary Artery Bypass Graft: Yes Hx Open Reduction Internal Fixation: Yes Other/Comment: ORIF R Pathological distal Femur Fx 04-11-18, compression Fx T Spine, Fx L wrist - ANESTHESIA Hx Anesthesia: Yes Hx Anesthesia Reactions: No Hx Malignant Hyperthermia: No Has any member of the family had a problem w/ anesthesia?: No Meds Allergies/Adverse Reactions: Allergies Allergy/AdvReac Type Severity Reaction Status Date / Time Penicillins Allergy RASH Verified 05/25/17 12:15 - Medications Medications: Current Medications Enoxaparin Sodium (Lovenox) 30 mg SC DAILY [facility]; Protocol Last Admin: 05/23/18 08:24 Dose: 30 mg Hydromorphone HCl (Dilaudid) 0.5 mg IVP Q4 PRN PRN Reason: Pain, moderate (4-7) Last Admin: 05/23/18 02:41 Dose: 0.5 mg Vancomycin HCl 750 mg/ Sodium (Chloride) 250 mls @ 250 mls/hr IVPB Q12 [facility]; Protocol Last Admin: 05/23/18 08:58 Dose: 250 mls/hr Levofloxacin/Dextrose (Levaquin 250mg) 250 mg in 50 mls @ 50 mls/hr IVPB DAILY [facility] Last Admin: 05/23/18 08:25 Dose: 50 mls/hr Sodium Chloride (Sodium Chloride 0.45%) 1,000 mls @ 50 mls/hr IV .Q20H [facility] Stop: 05/23/18 10:29 Last Admin: 05/23/18 08:57 Dose: 50 mls/hr Levetiracetam (Keppra) 500 mg PO BID [facility] Last Admin: 05/23/18 08:24 Dose: 500 mg Sodium Hypochlorite (Dakins Solution 0.125%) 1 appl TOP Q12H [facility] Last Admin: 05/23/18 04:36 Dose: 1 appl Physical Exam - Constitutional Appears: No Acute Distress - Head Exam Head Exam: ATRAUMATIC, NORMOCEPHALIC - ENT Exam ENT Exam: Mucous Membranes Moist - Respiratory Exam Respiratory Exam: NORMAL BREATHING PATTERN - GI/Abdominal Exam GI & Abdominal Exam: Soft. absent: Tenderness - Extremities Exam Additional comments: RLE: distal thigh incision CDI with vickie, well healed, no erythema/drainage no tenderness no swelling unable to assess sensation motor intact EHL/FHL pedal pulses intact comps soft NT b/l Results - Vital Signs Recent Vital Signs: Last Vital Signs Temp 97.8 F 05/23/18 08:00 Pulse 48 L 05/23/18 08:00 Resp 14 05/23/18 08:00 BP 115/46 L 05/23/18 08:00 Pulse Ox 99 05/23/18 08:00 - Labs Result Diagrams: 05/23/18 04:30 05/23/18 04:30 Labs: Laboratory Results - last 24 hr 05/23/18 05/23/18 04:30 04:30 WBC 12.5 H RBC 3.43 L Hgb 10.1 L Hct 32.1 L MCV 93.7 MCH 29.5 MCHC 31.5 L RDW 18.1 H Plt Count 129 L Sodium 156 H Potassium 3.6 Chloride 128 H Carbon Dioxide 25 Anion Gap 7 L BUN 20 H Creatinine 0.4 L Est GFR ( Amer) > 60 Est GFR (Non-Af Amer) > 60 Random Glucose 208 H Calcium 8.5 Phosphorus 1.7 L Magnesium 2.3 Total Bilirubin 0.6 AST 53 H D ALT 27 Alkaline Phosphatase 162 H D Total Protein 5.3 L Albumin 2.2 L Globulin 3.2 Albumin/Globulin Ratio 0.7 L Assessment & Plan (1) Closed fracture of right distal femur Assessment and Plan: 5 weeks s/p R distal femur fx ORIF -vickie removed, steri strips applied -may leave wound to room air -may wash/clean as necessary -PT/OT when medically stable -repeat R femur xrays -orthopedically stable -Above d/w Dr. Barboza in agreement Status: Acute - Date & Time Date: 05/23/18 Time: 08:30
--- NOTE | 2018-05-23 10:25 | RAD ---
Date of service: 05/23/2018 PROCEDURE: Right Femur Radiographs. HISTORY: s/p distal femur ORIF COMPARISON: None. TECHNIQUE: AP and Lateral Radiographs of the right femur. FINDINGS: FEMUR: The single portable view of the right femur demonstrates the patient to be status post ORIF distal femoral metadiaphyseal fracture. A plate and screw fixation device is noted. Evaluation is limited by the absence of additional views. SOFT TISSUES: Normal. OTHER FINDINGS: None. IMPRESSION: Limited evaluation. Status post ORIF distal femoral fracture.
--- NOTE | 2018-05-23 11:47 | CP.CCUPN ---
CCU Subjective - Physician Review Subjective (Free Text): 05/23/18 11:25 The patient was Seen and examined by me at the bedside, Medical records reviewed and Management issues were discussed and formulated with the house staff. Events reviewed Mrs Laureano is a 83 Years old Female with PMHx of HTN, Hypercholesterolemia, CHF, COPD, Osteoporosis, Seizures, Anemia, Anxiety, Arthritis (poly), Asthma, Back Problems, Dementia, Depression and Fractures (L wrist , comp Fx T Spine) Patient is also S/P ORIF displaced distal 1/3 femur fx. knee arthrotomy. repair lateral ligfament (knee) on 04/19 for malunion fx distal 1/3 femur fx Who initially presents to Emergency department on 05/20 from [facility] for AMS. Per report more somnolent and now possible fever. No reports vomiting, diarrhea or recent seizures. She was admitted to the ICU with AMS, lethargy, R/O CVA, hypernatremia, dehydration and fever/Sepsis Head CT scan 05/20 was negative for any acute intracranial pathology, no bleed, mass or edema Today slightly more awake, Less lethargy, intermittently follows some simple commands Comfortable, NAD No Vasopressors Afebrile, On Antibiotics with IV Vancomycin and Levaquin 250mg 250 mg IVPB DAILY (Urine C/S Pos paan sensertive Enterococcus Faecalis) NSR/Sinus Ho at 50s on the monitor Last 24H I&O 4499/850 05/22 Patient failed Swallow evaluation, NG tube placed Started on tube feeding and free water flush yesterday, Tolerating 05/22 right thigh Staple sutures removed by Dr. Mccrary This morning labs revealed Leucocytosis 2.5, Improved renal function BUN/Cr down to 43/0.6-->25/0.5-->20/0.4 Hyperkalemia 2.9, improved to 3.6, K suplemented Hypernatremia 164 improved to 156 IV Fluids 0.45% NS at 100 cc/H decreased to 50 cc/H Planning to repeat Labs in afternoon 05/23/18 11:48 Patient seen by mechanical maintenance instructor yesterday, the following wounds was evaluated and recommendations followed including wound care consult Suture line clean and intact Sacral stage 4 with Undermining all borders Left heel eschar Posteriorheel linear DTI on the right leg Right lateralnoted calf DTI CCU Objective - Vital Signs / Intake & Output Vital Signs (Last 4 hours): Vital Signs Temp Pulse Resp BP Pulse Ox 05/23/18 10:00 55 L 16 108/43 L 99 05/23/18 08:00 97.8 F 48 L 14 115/46 L 99 Intake and Output (Last 8hrs): Intake & Output 05/22/18 05/23/18 05/23/18 22:59 06:59 14:59 Intake Total 1530 1270 570 Output Total 450 200 Balance 1080 1070 570 Weight 110 lb Intake: IV 700 800 150 Intake, Piggyback 450 300 Tube Feeding 230 320 120 Free Water Flush 150 150 Output: Gastric Amount 0 Right Nares 0 Urine 450 200 Urethral (De La Cruz) 450 200 Other: # Bowel Movements 0 0 - Physical Exam Head: Positive for: Atraumatic, Normocephalic Pupils: Positive for: PERRL Conjunctiva: Positive for: Normal Mouth: Positive for: Dry Nose (External): Positive for: Atraumatic Neck: Positive for: Normal Range of Motion. Negative for: MIDLINE TENDERNESS, JVD Respiratory/Chest: Positive for: Rhonchi. Negative for: Respiratory Distress, Accessory Muscle Use, Wheezes Cardiovascular: Positive for: Regular Rate and Rhythm, Normal S1, S2, Peripheal Pulses Present. Negative for: Tachycardic Abdomen: Positive for: Normal Bowel Sounds Upper Extremity: Positive for: Normal Inspection, NORMAL PULSES. Negative for: Edema Lower Extremity: Positive for: Normal Inspection, NORMAL PULSES. Negative for: CALF TENDERNESS Neurological: Positive for: Other (no response to verbal stimuli) Psychiatric: Positive for: Alert. Negative for: Oriented x 3 - Medications Active Medications: Active Medications Generic Name Dose Route Start Last Admin Trade Name Freq PRN Reason Stop Dose Admin Enoxaparin Sodium 30 mg 05/20/18 15:30 05/23/18 08:24 Lovenox SC 30 mg DAILY BELLE Administration Protocol Hydromorphone HCl 0.5 mg 05/22/18 14:09 05/23/18 02:41 Dilaudid IVP 0.5 mg Q4 PRN Administration Pain, moderate (4-7) Vancomycin HCl 750 mg/ Sodium 250 mls @ 250 mls/hr 05/21/18 09:00 05/23/18 08:58 Chloride IVPB 250 mls/hr Q12 BELLE Administration Protocol Levofloxacin/Dextrose 250 mg in 50 mls @ 50 mls/hr 05/22/18 09:00 05/23/18 08:25 Levaquin 250mg IVPB 50 mls/hr DAILY BELLE Administration Levetiracetam 500 mg 05/22/18 17:00 05/23/18 08:24 Keppra PO 500 mg BID BELLE Administration Sodium Hypochlorite 1 appl 05/22/18 14:30 05/23/18 04:36 Dakins Solution 0.125% TOP 1 appl Q12H BELLE Administration - Patient Studies Lab Studies: Microbiology Studies 05/21/18 09:10 Blood Culture - Preliminary Blood-Venous NO GROWTH AFTER 48 HOURS 05/20/18 13:00 Blood Culture - Preliminary Blood NO GROWTH AFTER 48 HOURS 05/20/18 17:43 MRSA Culture (Admit) - Final Nose MRSA NOT DETECTED 05/20/18 13:34 Urine Culture - Final Urine,De La Cruz Enterococcus Faecalis Lab Studies 05/23/18 05/23/18 Range/Units 04:30 04:30 WBC 12.5 H (4.8-10.8) K/uL RBC 3.43 L (3.80-5.20) Mil/uL Hgb 10.1 L (12.0-16.0) g/dL Hct 32.1 L (34.0-47.0) % MCV 93.7 (81.0-99.0) fl MCH 29.5 (27.0-31.0) pg MCHC 31.5 L (33.0-37.0) g/dL RDW 18.1 H (11.5-14.5) % Plt Count 129 L (130-400) K/uL Sodium 156 H (132-148) mmol/l Potassium 3.6 (3.6-5.0) MMOL/L Chloride 128 H (98-107) mmol/L Carbon Dioxide 25 (22-30) mmol/L Anion Gap 7 L (10-20) BUN 20 H (7-17) mg/dl Creatinine 0.4 L (0.7-1.2) mg/dl Est GFR ( Amer) > 60 Est GFR (Non-Af Amer) > 60 Random Glucose 208 H (65-105) mg/dL Calcium 8.5 (8.4-10.2) mg/dL Phosphorus 1.7 L (2.5-4.5) mg/dl Magnesium 2.3 (1.6-2.3) MG/DL Total Bilirubin 0.6 (0.2-1.3) mg/dl AST 53 H D (14-36) U/L ALT 27 (9-52) U/L Alkaline Phosphatase 162 H D (38-126) U/L Total Protein 5.3 L (6.3-8.2) G/DL Albumin 2.2 L (3.5-5.0) g/dL Globulin 3.2 (2.2-3.9) gm/dL Albumin/Globulin Ratio 0.7 L (1.0-2.1) Laboratory Results - last 24 hr 05/23/18 05/23/18 04:30 04:30 WBC 12.5 H RBC 3.43 L Hgb 10.1 L Hct 32.1 L MCV 93.7 MCH 29.5 MCHC 31.5 L RDW 18.1 H Plt Count 129 L Sodium 156 H Potassium 3.6 Chloride 128 H Carbon Dioxide 25 Anion Gap 7 L BUN 20 H Creatinine 0.4 L Est GFR ( Amer) > 60 Est GFR (Non-Af Amer) > 60 Random Glucose 208 H Calcium 8.5 Phosphorus 1.7 L Magnesium 2.3 Total Bilirubin 0.6 AST 53 H D ALT 27 Alkaline Phosphatase 162 H D Total Protein 5.3 L Albumin 2.2 L Globulin 3.2 Albumin/Globulin Ratio 0.7 L Radiology Impressions: Radiology Impressions Femur X-Ray 05/23/18 09:00 IMPRESSION: Limited evaluation. Status post ORIF distal femoral fracture. Fingerstick Blood Sugar Results: 187 Review of Systems - Review of Systems Systems not reviewed;Unavailable: Altered Mental Status Assessment/Plan (1) Toxic metabolic encephalopathy Current Visit: Yes Status: Acute Priority: High Comment: Multifactorial; sepsis, Hypernatremia, dehydrations and uremia Some neurological improvement (2) Decubitus ulcer of sacral area Current Visit: Yes Status: Acute Priority: High (3) Dehydration Current Visit: Yes Status: Acute Priority: High (4) Hypernatremia Current Visit: Yes Status: Acute Priority: High (5) Sepsis Current Visit: Yes Status: Acute Priority: High Comment: Blood C/S negative Urine C/S Pos paan sensertive Enterococcus Faecalis Continue Antibiotics with IV Vancomycin and Levaquin 250mg 250 mg IVPB DAILY (6) Altered mental status Current Visit: Yes Status: Acute Priority: High Comment: - Assessment and Plan (Free Text) Assessment: Continue with ICU care for hemodynamic, Respiratory monitoring and neuro check Continue current medications, reviewed Maintain aspiration precautions Wound Care Continue tube feeding and free water flush Continue Antibiotics with IV Vancomycin and Levaquin 250mg 250 mg IVPB DAILY K suplemented Optimize fluid status, IV fluid IV Fluids to 0.45% NS at 50 cc/H DVT prophylaxis
--- NOTE | 2018-05-23 11:50 | CP.PCM.PN ---
Subjective - Date & Time of Evaluation Date of Evaluation: 05/23/18 Time of Evaluation: 11:49 - Subjective Subjective: Neurology Follow-Up Note: Mrs. Laureano was evaluated this morning at bedside in the ICU. Pt unable to answer questions or follow commands. Chart reviewed. ROS unobtainable from pt 2/2 her current condition. Objective - Vital Signs/Intake and Output Vital Signs (last 24 hours): Temp Pulse Resp BP Pulse Ox 97.8 F 57 L 17 105/43 L 98 05/23/18 08:00 05/23/18 11:00 05/23/18 11:00 05/23/18 11:00 05/23/18 11:00 Intake and Output: 05/23/18 05/23/18 06:59 18:59 Intake Total 1950 570 Output Total 200 Balance 1750 570 - Medications Medications: Current Medications Enoxaparin Sodium (Lovenox) 30 mg SC DAILY BELLE; Protocol Last Admin: 05/23/18 08:24 Dose: 30 mg Hydromorphone HCl (Dilaudid) 0.5 mg IVP Q4 PRN PRN Reason: Pain, moderate (4-7) Last Admin: 05/23/18 02:41 Dose: 0.5 mg Vancomycin HCl 750 mg/ Sodium (Chloride) 250 mls @ 250 mls/hr IVPB Q12 BELLE; Protocol Last Admin: 05/23/18 08:58 Dose: 250 mls/hr Levofloxacin/Dextrose (Levaquin 250mg) 250 mg in 50 mls @ 50 mls/hr IVPB DAILY BELLE Last Admin: 05/23/18 08:25 Dose: 50 mls/hr Levetiracetam (Keppra) 500 mg PO BID BELLE Last Admin: 05/23/18 08:24 Dose: 500 mg Sodium Hypochlorite (Dakins Solution 0.125%) 1 appl TOP Q12H BELLE Last Admin: 05/23/18 04:36 Dose: 1 appl - Labs Labs: 05/23/18 04:30 05/23/18 04:30 PT 20.0 Seconds (9.8-13.1) H 05/20/18 13:00 INR 1.8 05/20/18 13:00 APTT 30.8 Seconds (25.6-37.1) 05/20/18 13:00 - Constitutional Appears: Confused, Cachectic - Head Exam Head Exam: ATRAUMATIC, NORMAL INSPECTION, NORMOCEPHALIC - Eye Exam Eye Exam: EOMI, Normal appearance, PERRL Pupil Exam: NORMAL ACCOMODATION, PERRL Additional comments: opens eyes spontaneously - ENT Exam ENT Exam: Mucous Membranes Moist - Neck Exam Neck Exam: Normal Inspection - Respiratory Exam Respiratory Exam: NORMAL BREATHING PATTERN - Cardiovascular Exam Cardiovascular Exam: REGULAR RHYTHM (hr 62 on tele mx) - GI/Abdominal Exam GI & Abdominal Exam: Soft Additional comments: ngt in place - Exam Additional comments: baeza cath in place - Extremities Exam Extremities Exam: Normal Inspection, Pedal Edema. absent: Calf Tenderness - Back Exam Back Exam: NORMAL INSPECTION - Neurological Exam Neurological Exam: Altered, Awake, CN II-XII Intact, Reflexes Normal. absent: Alert, Oriented x3 Additional comments: Awake, does not follow commands. Nonverbal, moans during exam and with sternal rub. Moves BUE independently but with generalized weakness; + resistance noted during exam to all extremities. No tremors noted. Toes down-going. Unable to assess sensation 2/2 pt nonverbal and not following commands. - Psychiatric Exam Additional comments: moans during exam; nonverbal - Skin Skin Exam: Normal Color Assessment and Plan (1) Toxic metabolic encephalopathy Assessment & Plan: Imaging reviewed: -EEG (05/22/18): This is an abnormal EEG record that demonstrate the presence of a mild to moderate non specific diffuse disturbance of cortical activity, this is in keeping with a diffuse way matter dysfunction. These findings do not support a specific etiology. 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 No seizures were captured. -CT head (05/20/18): No acute intracranial pathology. Age-related changes. Mild sphenoid sinus disease. No significant interval change. -Likely 2/2 to infection and hypernatremia. -Continue current treatment and management of infectious process and electrolyte imbalance (still hypernatremic). -Still pending Lamotrigine level to be resulted. -Continue Keppra as ordered. -Notify neuro team of any acute changes in pt's condition. Case discussed with Dr. Flanagan Status: Acute
--- NOTE | 2018-05-23 15:34 | CP.PCM.PN ---
Subjective - Date & Time of Evaluation Date of Evaluation: 05/23/18 Time of Evaluation: 10:00 - Subjective Subjective: F/U AMS Moaning. Objective - Vital Signs/Intake and Output Vital Signs (last 24 hours): Temp Pulse Resp BP Pulse Ox 98.2 F 62 20 117/44 L 97 05/23/18 12:00 05/23/18 14:00 05/23/18 14:00 05/23/18 14:00 05/23/18 14:00 Intake and Output: 05/23/18 05/23/18 06:59 18:59 Intake Total 1950 880 Output Total 200 Balance 1750 880 - Medications Medications: Current Medications Enoxaparin Sodium (Lovenox) 30 mg SC DAILY [facility]; Protocol Last Admin: 05/23/18 08:24 Dose: 30 mg Hydromorphone HCl (Dilaudid) 0.5 mg IVP Q4 PRN PRN Reason: Pain, moderate (4-7) Last Admin: 05/23/18 02:41 Dose: 0.5 mg Vancomycin HCl 750 mg/ Sodium (Chloride) 250 mls @ 250 mls/hr IVPB Q12 BELLE; Protocol Last Admin: 05/23/18 08:58 Dose: 250 mls/hr Levofloxacin/Dextrose (Levaquin 250mg) 250 mg in 50 mls @ 50 mls/hr IVPB DAILY BELLE Last Admin: 05/23/18 08:25 Dose: 50 mls/hr Levetiracetam (Keppra) 500 mg PO BID BELLE Last Admin: 05/23/18 08:24 Dose: 500 mg Sodium Hypochlorite (Dakins Solution 0.125%) 1 appl TOP Q12H BELLE Last Admin: 05/23/18 14:38 Dose: 1 appl - Labs Labs: 05/23/18 04:30 05/23/18 04:30 PT 20.0 Seconds (9.8-13.1) H 05/20/18 13:00 INR 1.8 05/20/18 13:00 APTT 30.8 Seconds (25.6-37.1) 05/20/18 13:00 - Constitutional Appears: Chronically Ill - Head Exam Head Exam: NORMAL INSPECTION - Eye Exam Additional comments: Sluggish pupils - ENT Exam ENT Exam: Normal Exam - Neck Exam Neck Exam: Normal Inspection - Respiratory Exam Respiratory Exam: Decreased Breath Sounds (at bases) - Cardiovascular Exam Cardiovascular Exam: Bradycardia - GI/Abdominal Exam GI & Abdominal Exam: Soft, Normal Bowel Sounds - Extremities Exam Additional comments: R knee/femur in immobilizer - Back Exam Additional comments: Sacral decubitus ulcer stage IV. Upper back DTI - Neurological Exam Additional comments: Lethargic, arousable, mumbling words, unable to follows commands, generalized weakness. - Skin Skin Exam: Warm Assessment and Plan (1) Altered mental status Status: Acute (2) Toxic metabolic encephalopathy Status: Acute (3) Sepsis Status: Acute (4) UTI (urinary tract infection) Status: Acute (5) Dehydration Status: Acute (6) Hypernatremia Status: Acute (7) Decubitus ulcer of sacral area Status: Acute (8) Deep tissue injury Status: Acute (9) Chronic back pain Status: Chronic (10) Hx of fracture of femur Status: Chronic (11) HTN (hypertension) Status: Acute (12) COPD (chronic obstructive pulmonary disease) Status: Chronic (13) Hx of congestive heart failure Status: Chronic (14) Seizure disorder Status: Chronic - Assessment and Plan (Free Text) Plan: Continue Lizzie Jimenes, attempt to get in touch with family to concern for Peg Tube Critical care time: 35 min.
--- NOTE | 2018-05-23 17:17 | CP.PCM.CON ---
History of Present Illness - History of Present Illness History of Present Illness: Dr Hammonds Wound Care evaluation on Donya Laureano, born 1935 who has been admitted to [facility] and is now in the ICU. She is non-verbal and not recognizing speech. She is on a clinitron bed. + PEG +baeza Stage IV 5x4cm sacral ulcer. Some periwound maceration. It is being cleaned and packed with Dakin's. She has a thoracic spine deep tissue injury that is dressed with a meriplex dressing. I would recommend continued cleaning with the Dakin's but pack the wound with a betadine soaked gauze and apply Proshield to the periwound. Poor overall prognosis. Past Patient History - Infectious Disease Hx of Infectious Diseases: None - Past Medical History & Family History Past Medical History?: Yes - Past Social History Smoking Status: Unknown If Ever Smoked - CARDIAC Hx Cardiac Disorders: Yes Hx Congestive Heart Failure: Yes Hx Hypercholesterolemia: Yes Hx Hypertension: Yes - PULMONARY Hx Respiratory Disorders: Yes Hx Asthma: Yes Hx Chronic Obstructive Pulmonary Disease (COPD): Yes - NEUROLOGICAL Hx Neurological Disorder: Yes Hx Dementia: Yes Hx Seizures: Yes Other/Comment: fall - HEENT Hx HEENT Problems: No Hx Deafness: Yes (hearing aid) - RENAL Hx Chronic Kidney Disease: No - ENDOCRINE/METABOLIC Hx Endocrine Disorders: No Hx Diabetes Mellitus Type 2: No - HEMATOLOGICAL/ONCOLOGICAL Hx Blood Disorders: Yes Hx Anemia: Yes Hx Human Immunodeficiency Virus (HIV): No - INTEGUMENTARY Hx Dermatological Problems: No - MUSCULOSKELETAL/RHEUMATOLOGICAL Hx Arthritis: Yes (poly) Hx Back Pain: Yes Hx Falls: Yes Hx Fractures: Yes (L wrist , comp Fx T Spine, Fx L wrist, ORIF R distal Femur Fx 04-11-18) Hx Osteoporosis: Yes Hx Unsteady Gait: Yes Other/Comment: ORIF Right Pathological distal femur fracture 04-11-18 - GASTROINTESTINAL Hx Gastrointestinal Disorders: Yes Hx Constipation: Yes Other/Comment: Cholecystitis - GENITOURINARY/GYNECOLOGICAL Hx Genitourinary Disorders: Yes - PSYCHIATRIC Hx Psychophysiologic Disorder: Yes Hx Anxiety: Yes Hx Depression: Yes Hx Substance Use: No - SURGICAL HISTORY Hx Surgeries: Yes Hx Cholecystectomy: Yes Hx Coronary Artery Bypass Graft: Yes Hx Open Reduction Internal Fixation: Yes Other/Comment: ORIF R Pathological distal Femur Fx 04-11-18, compression Fx T Spine, Fx L wrist - ANESTHESIA Hx Anesthesia: Yes Hx Anesthesia Reactions: No Hx Malignant Hyperthermia: No Has any member of the family had a problem w/ anesthesia?: No Meds Allergies/Adverse Reactions: Allergies Allergy/AdvReac Type Severity Reaction Status Date / Time Penicillins Allergy RASH Verified 05/25/17 12:15 - Medications Medications: Current Medications Enoxaparin Sodium (Lovenox) 30 mg SC DAILY [facility]; Protocol Last Admin: 05/23/18 08:24 Dose: 30 mg Hydromorphone HCl (Dilaudid) 0.5 mg IVP Q4 PRN PRN Reason: Pain, moderate (4-7) Last Admin: 05/23/18 17:00 Dose: 0.5 mg Vancomycin HCl 750 mg/ Sodium (Chloride) 250 mls @ 250 mls/hr IVPB Q12 BELLE; Protocol Last Admin: 05/23/18 08:58 Dose: 250 mls/hr Levofloxacin/Dextrose (Levaquin 250mg) 250 mg in 50 mls @ 50 mls/hr IVPB DAILY BELLE Last Admin: 05/23/18 08:25 Dose: 50 mls/hr Levetiracetam (Keppra) 500 mg PO BID BELLE Last Admin: 05/23/18 16:30 Dose: 500 mg Sodium Hypochlorite (Dakins Solution 0.125%) 1 appl TOP Q12H BELLE Last Admin: 05/23/18 14:38 Dose: 1 appl Results - Vital Signs Recent Vital Signs: Last Vital Signs Temp 97.8 F 05/23/18 16:00 Pulse 63 05/23/18 16:00 Resp 24 05/23/18 16:00 BP 122/48 L 05/23/18 16:00 Pulse Ox 95 05/23/18 16:00 - Labs Result Diagrams: 05/23/18 04:30 05/23/18 04:30 Labs: Laboratory Results - last 24 hr 05/23/18 05/23/18 04:30 04:30 WBC 12.5 H RBC 3.43 L Hgb 10.1 L Hct 32.1 L MCV 93.7 MCH 29.5 MCHC 31.5 L RDW 18.1 H Plt Count 129 L Sodium 156 H Potassium 3.6 Chloride 128 H Carbon Dioxide 25 Anion Gap 7 L BUN 20 H Creatinine 0.4 L Est GFR ( Amer) > 60 Est GFR (Non-Af Amer) > 60 Random Glucose 208 H Calcium 8.5 Phosphorus 1.7 L Magnesium 2.3 Total Bilirubin 0.6 AST 53 H D ALT 27 Alkaline Phosphatase 162 H D Total Protein 5.3 L Albumin 2.2 L Globulin 3.2 Albumin/Globulin Ratio 0.7 L
[2018-05-23] MEDS ORDERED: Albuterol-Ipratrop 3 mg / 0.5 (3 ml) UD INH PRN (22:42)
[2018-05-23] MEDS ORDERED: Albuterol-Ipratrop 3 mg / 0.5 (3 ml) UD INH STA (22:42)
[2018-05-24] MEDS: Proshield Plus GEL TOP SCH ×3 (01:30→16:17)
[2018-05-24 05:58] LABS: BASO % 0.3 % (0.0-2.0); EOS % 0.4 % (0.0-4.0); HEMOGLOBIN 10.3 g/dL (12.0-16.0); LYMPH # 0.4 K/uL (1.0-4.3); LYMPH % 4.3 % (20.0-40.0); MEAN CELL VOLUME 92.9 fl (81.0-99.0); MEAN CORPUSCULAR HEMOGLOBIN 29.2 pg (27.0-31.0); MEAN CORPUSCULAR HGB CONC 31.4 g/dL (33.0-37.0); MEAN PLATELET VOLUME 12.4 fl (7.2-11.7); MONO # 0.2 K/uL (0.0-0.8); MONO % 2.2 % (0.0-10.0); NEUT % 92.8 % (50.0-75.0); NRBC % 0.4 % (0.0-0.0); PLATELET COUNT 99 K/uL (130-400); RBC 3.53 Mil/uL (3.80-5.20); RED CELL DISTRIBUTION WIDTH 18.3 % (11.5-14.5); WHITE BLOOD COUNT 9.7 K/uL (4.8-10.8)
[2018-05-24 06:32] LABS: BLOOD UREA NITROGEN 15 mg/dl (7-17); CALCIUM 8.4 mg/dL (8.4-10.2); GFR NON-AFRICAN AMERICAN > 60
[2018-05-24 06:47] LABS: ABG ALLEN TEST YES; ARTERIAL BLOOD GAS HCO3 27.9 mmol/L (21-28); ARTERIAL BLOOD GAS O2 CAPACITY 13.7 mL/dL (16-24); ARTERIAL BLOOD GAS O2 CONTENT 13.2 ML/dL (15-23); ARTERIAL BLOOD GAS O2 SAT 96.4 % (95-98); ARTERIAL BLOOD GAS PCO2 36 mm/Hg (35-45); ARTERIAL BLOOD GAS PH 7.49 (7.35-7.45); ARTERIAL BLOOD GAS PO2 63 mm/Hg (80-100); ARTERIAL BLOOD GAS TCO2 28.5 mmol/L (22-28)
[2018-05-24] MEDS: Enoxaparin 30 mg Syringe SC SCH (08:16)
[2018-05-24] MEDS ORDERED: Chlorhexidine Gluconate 1 APPL/PKT TP ONE (09:01)
[2018-05-24] MEDS: levETIRAcetam 100 mg/ml (5ml) Oral Syringe PO SCH ×2 (09:23→16:17)
[2018-05-24] MEDS: levoFLOXacin 500 mg in D5W 500 MG/100 ML BAG IVPB SCH (09:23)
[2018-05-24 10:05] LABS: EOSINOPHIL 1 % (0-7); LYMPHOCYTE 6 % (20-50); MONOCYTE 4 % (0-10); NEUTROPHIL 89 % (42-75); TOTAL CELLS COUNTED 100
[2018-05-24 10:07] LABS: ANISOCYTOSIS SLIGHT; GIANT PLATELETS PRESENT; HYPOCHROMIC SLIGHT; LARGE PLATELETS PRESENT; PLATELET ESTIMATE DECREASED (NORMAL); TARGET CELLS SLIGHT
--- NOTE | 2018-05-24 10:55 | RAD ---
Date of service: 05/23/2018 PROCEDURE: CHEST RADIOGRAPH, 1 VIEW HISTORY: hypoxia, increased sputum COMPARISON: Chest radiograph dated 05/20/2018. FINDINGS: LUNGS: Stable chronic prominence of the bilateral interstitial markings with superimposed pulmonary vascular congestion not excluded. Right-sided infiltrates.. PLEURA: No pneumothorax or pleural fluid seen. CARDIOVASCULAR: Aortic atherosclerotic calcifications. Cardiomediastinal silhouette stably enlarged OSSEOUS STRUCTURES: Unchanged. VISUALIZED UPPER ABDOMEN: Right upper quadrant surgical clips. OTHER FINDINGS: Enteric tube with tip in the stomach. IMPRESSION: Stable chronic prominence of the bilateral interstitial markings with superimposed pulmonary vascular congestion not excluded. New right-sided infiltrates.
[2018-05-24] MEDS: Sodium Chloride 0.45% 1,000 ML IV SCH (11:00)
--- NOTE | 2018-05-24 12:51 | CP.CCUPN ---
CCU Subjective - Physician Review Subjective (Free Text): Eyes closed, not responsive nor follows any verbal commands or cues, intermittently opens eyes and moaning loudly, but does not appear distressed. NGT replaced this AM, tube feeds resumed. Remains on 100% NRBM, SPO2 100%. Other vitals and I/O's reviewed. Afebrile, no fever spikes, SBP 110-120s, HR 96, RR 28. Fluid balance positive 2 liters last 24H. urine output approx. 600ml last 24H ROS: No other pertinent negs or positives on 10+ system review obtainable, nonverbal. PMSFH: All other Nursing and physician documentation reviewed to date; no new pertinent info noted relevant to current medical problems. EXAM- HEENT: no icterus, no gaze preference, pupils 3 mm bilat and reactive. NECK: No JVD visible, supple, carotids equal upstroke bilat/no bruit CHEST: decreased BS at the bases, no wheezes audible HEART: regular, distant, tachy S1S2, no rubs or murmurs noted ABD: softly and nontender, no guarding, no organomegaly, BS hypoactive. EXT: + LE edema, no calf tenderness or palpable cords, distal pulses intact and symmetrical. Mod size sacral decub stage 4, thoracic DTI. NEURO: withdraws arms to pain, + tone in all extremities. SKIN: no rashes, warm and dry LABS: WBC= 9.7 HGB= 10.3 PLTs= 99K 7.49/36/63 Na= 153 K= 3.8 CL= 122 HCO3= 27 BUN/Cr= 15/0.3 BS= 248 IMPRESSION / MAJOR PROBLEMS NOW: 1. AMS, r/o NCSE, vs other occult seizure activity, metabolic Encephalopathy, possible Sepsis Encephalopathy; h/o Dementia 2. Acute resp insuff 2 bilateral Pneumonia, r/o Aspiration 3. h/o ORIF R Hip; L Femoral fracture repair 4. Chronic Disease Anemia 5. New Thrombocytopenia this Admission, h/o of Low Platelets; r/o Drug effect, DIC PLAN: 1. HyperNa slowly resolving, avoiding too rapid a reduction in NA levels. On free water and hypotonic fluids. 2. AEDs ongoing. Lamictal level ordered, and still pending from 05/20/18. 3. Monitor resp status, try BiPAP if patient tolerates, otherwise, may need MV support if hypoxemia worsens. Full Code and resuscitation measures as per son. 4. Supplement low phosphate level from yesterday. Repeat mag and phos levels in AM. 5. May need to hold LMWH with low platelets. 6. All other psycho-active meds held: Cymbalta, Gabapentin, Antivert.
--- NOTE | 2018-05-24 13:11 | CP.PCM.PN ---
Subjective - Date & Time of Evaluation Date of Evaluation: 05/24/18 Time of Evaluation: 13:10 - Subjective Subjective: Neurology Follow-Up Note: Mrs. Laureano was evaluated this afternoon at bedside in the ICU. Pt still unable to answer questions or follow commands. Chart reviewed. ROS unobtainable from pt 2/2 her current condition. Objective - Vital Signs/Intake and Output Vital Signs (last 24 hours): Temp Pulse Resp BP Pulse Ox 98.9 F 107 H 26 H 114/57 L 99 05/24/18 12:00 05/24/18 12:00 05/24/18 12:00 05/24/18 12:00 05/24/18 12:00 Intake and Output: 05/24/18 05/24/18 06:59 18:59 Intake Total 1250 550 Output Total 300 Balance 950 550 - Medications Medications: Current Medications Albuterol/Ipratropium (Duoneb 3 Mg/0.5 Mg (3 Ml) Ud) 3 ml INH RQ6 PRN PRN Reason: Shortness of Breath Last Admin: 05/24/18 05:53 Dose: 3 ml Dimethicone (Proshield Plus Skin Protectant) 1 applic TOP Q8 BELLE Last Admin: 05/24/18 08:18 Dose: 1 applic Enoxaparin Sodium (Lovenox) 30 mg SC DAILY BELLE; Protocol Last Admin: 05/24/18 08:16 Dose: 30 mg Hydromorphone HCl (Dilaudid) 0.5 mg IVP Q4 PRN PRN Reason: Pain, moderate (4-7) Last Admin: 05/24/18 06:08 Dose: 0.5 mg Vancomycin HCl 750 mg/ Sodium (Chloride) 250 mls @ 250 mls/hr IVPB Q12 BELLE; Protocol Last Admin: 05/24/18 08:16 Dose: 250 mls/hr Levofloxacin/Dextrose (Levaquin 500mg) 500 mg in 100 mls @ 100 mls/hr IVPB DARRELL LY BELLE; Protocol Last Admin: 05/24/18 09:23 Dose: 100 mls/hr Sodium Chloride (Sodium Chloride 0.45%) 1,000 mls @ 50 mls/hr IV .Q20H BELLE Stop: 05/25/18 13:07 Levetiracetam (Keppra) 500 mg PO BID BELLE Last Admin: 05/24/18 09:23 Dose: 500 mg Sodium Hypochlorite (Dakins Solution 0.125%) 1 appl TOP Q12H BELLE Last Admin: 05/24/18 02:30 Dose: 1 appl - Labs Labs: 05/24/18 05:10 05/24/18 05:10 PT 20.0 Seconds (9.8-13.1) H 05/20/18 13:00 INR 1.8 05/20/18 13:00 APTT 30.8 Seconds (25.6-37.1) 05/20/18 13:00 - Constitutional Appears: Confused, Cachectic - Head Exam Head Exam: ATRAUMATIC, NORMAL INSPECTION, NORMOCEPHALIC - Eye Exam Eye Exam: EOMI, Normal appearance, PERRL Pupil Exam: NORMAL ACCOMODATION, PERRL - ENT Exam ENT Exam: Mucous Membranes Moist - Neck Exam Neck Exam: Normal Inspection - Respiratory Exam Respiratory Exam: absent: NORMAL BREATHING PATTERN Additional comments: appears sob; on nonrebreather mask - Cardiovascular Exam Cardiovascular Exam: Tachycardia (hr 101) - GI/Abdominal Exam GI & Abdominal Exam: Soft Additional comments: ngt in place - Exam Additional comments: baeza in place - Extremities Exam Extremities Exam: Full ROM. absent: Calf Tenderness, Pedal Edema - Back Exam Back Exam: NORMAL INSPECTION - Neurological Exam Neurological Exam: Altered, Reflexes Normal. absent: Alert, Awake (arousable) Additional comments: Arousable to sternal rub (grimaces and opens eyes); does not follow commands. Nonverbal, moans during exam and with sternal rub. Moves BUE independently but with generalized weakness; + resistance noted during exam to all extremities. No tremors noted. Toes down-going. Unable to assess sensation 2/2 pt nonverbal and not following commands. - Psychiatric Exam Additional comments: moans during exam; nonverbal - Skin Skin Exam: Normal Color Assessment and Plan (1) Toxic metabolic encephalopathy Assessment & Plan: Imaging reviewed: -EEG (05/22/18): This is an abnormal EEG record that demonstrate the presence of a mild to moderate non specific diffuse disturbance of cortical activity, this is in keeping with a diffuse way matter dysfunction. These findings do not support a specific etiology. 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 No seizures were captured. -CT head (05/20/18): No acute intracranial pathology. Age-related changes. Mild sphenoid sinus disease. No significant interval change. -Likely 2/2 to infection and hypernatremia. -Continue current treatment and management of infectious process and electrolyte imbalance (still hypernatremic). -Still pending Lamotrigine level to be resulted. -Continue Keppra as ordered. -Notify neuro team of any acute changes in pt's condition. Case discussed with Dr. Flanagan Status: Acute
[2018-05-24] MEDS ORDERED: Povidone Iodine Topical 10% Sol ONE (13:14)
--- NOTE | 2018-05-24 14:20 | RAD ---
Date of service: 05/24/2018 HISTORY: resp distress COMPARISON: Chest radiograph dated 05/23/2018. FINDINGS: LUNGS: Pulmonary vascular congestion. Right basilar infiltrate. PLEURA: No significant pleural effusion identified, no pneumothorax apparent. CARDIOVASCULAR: Aortic atherosclerotic calcifications. Cardiomediastinal silhouette stably enlarged. OSSEOUS STRUCTURES: Unchanged. VISUALIZED UPPER ABDOMEN: Normal. OTHER FINDINGS: Enteric tube, unchanged. IMPRESSION: Pulmonary vascular congestion. Right basilar infiltrate. Enteric tube in satisfactory position.
[2018-05-24] MEDS ORDERED: HYDROmorphone 0.5 mg/0.5 ml ISec IVP PRN (15:00)
--- NOTE | 2018-05-24 18:02 | CP.PCM.PN ---
Subjective - Date & Time of Evaluation Date of Evaluation: 05/24/18 Time of Evaluation: 11:20 - Subjective Subjective: F/U AMS. Moaning Objective - Vital Signs/Intake and Output Vital Signs (last 24 hours): Temp Pulse Resp BP Pulse Ox 98.7 F 101 H 32 H 131/61 100 05/24/18 16:00 05/24/18 17:00 05/24/18 17:00 05/24/18 17:00 05/24/18 17:00 Intake and Output: 05/24/18 05/24/18 06:59 18:59 Intake Total 1250 1140 Output Total 300 Balance 950 1140 - Medications Medications: Current Medications Albuterol/Ipratropium (Duoneb 3 Mg/0.5 Mg (3 Ml) Ud) 3 ml INH RQ6 PRN PRN Reason: Shortness of Breath Last Admin: 05/24/18 05:53 Dose: 3 ml Dimethicone (Proshield Plus Skin Protectant) 1 applic TOP Q8 BELLE Last Admin: 05/24/18 16:17 Dose: 1 applic Enoxaparin Sodium (Lovenox) 30 mg SC DAILY BELLE; Protocol Last Admin: 05/24/18 08:16 Dose: 30 mg Hydromorphone HCl (Dilaudid) 0.5 mg IVP Q4 PRN PRN Reason: Pain, moderate (4-7) Vancomycin HCl 750 mg/ Sodium (Chloride) 250 mls @ 250 mls/hr IVPB Q12 BELLE; Protocol Last Admin: 05/24/18 08:16 Dose: 250 mls/hr Levofloxacin/Dextrose (Levaquin 500mg) 500 mg in 100 mls @ 100 mls/hr IVPB DAILY BELLE; Protocol Last Admin: 05/24/18 09:23 Dose: 100 mls/hr Sodium Chloride (Sodium Chloride 0.45%) 1,000 mls @ 50 mls/hr IV .Q20H BELLE Stop: 05/25/18 13:07 Last Admin: 05/24/18 11:00 Dose: 50 mls/hr Levetiracetam (Keppra) 500 mg PO BID BELLE Last Admin: 05/24/18 16:17 Dose: 500 mg Sodium Hypochlorite (Dakins Solution 0.125%) 1 appl TOP Q12H BELLE Last Admin: 05/24/18 13:47 Dose: 1 appl - Labs Labs: 05/24/18 05:10 05/24/18 05:10 PT 20.0 Seconds (9.8-13.1) H 05/20/18 13:00 INR 1.8 05/20/18 13:00 APTT 30.8 Seconds (25.6-37.1) 05/20/18 13:00 - Constitutional Appears: Chronically Ill - Head Exam Head Exam: NORMAL INSPECTION - Eye Exam Eye Exam: PERRL - ENT Exam ENT Exam: Normal Exam - Neck Exam Neck Exam: Normal Inspection - Respiratory Exam Respiratory Exam: Decreased Breath Sounds (at bases) - Cardiovascular Exam Cardiovascular Exam: Tachycardia - GI/Abdominal Exam GI & Abdominal Exam: Soft, Normal Bowel Sounds Additional comments: NGT in place - Exam Additional comments: De [place] in place - Extremities Exam Additional comments: Edema L/E - Back Exam Additional comments: Sacral decubitus stage IV, Upper back DTI - Neurological Exam Additional comments: Lethargic, mumbling words, unable to follows commands, generalized weakness. - Skin Skin Exam: Warm Assessment and Plan (1) Altered mental status Status: Acute (2) Toxic metabolic encephalopathy Status: Acute (3) Sepsis Assessment & Plan: 2nd to UTI [place] related, L-S decubitus, Aspiration Pneumonia Status: Acute (4) UTI (urinary tract infection) Status: Acute (5) Decubitus ulcer of sacral area Status: Acute (6) Aspiration pneumonia Status: Acute (7) Dehydration Status: Resolved (8) Hypernatremia Status: Resolved (9) Deep tissue injury Status: Acute (10) Chronic back pain Status: Chronic (11) Hx of fracture of femur Status: Chronic (12) HTN (hypertension) Status: Acute (13) COPD (chronic obstructive pulmonary disease) Status: Chronic (14) Hx of congestive heart failure Status: Chronic (15) Seizure disorder Status: Chronic - Assessment and Plan (Free Text) Plan: Continue Peg-T, Levaquin, Vanco, Keppra and rest of Tx. Gi consult appreciated. Critical care time: 31 min.
--- NOTE | 2018-05-24 22:21 | CON ---
DATE: 05/24/2018 REASON FOR CONSULTATION: Failure to thrive. HISTORY OF PRESENT ILLNESS: This is an 83-year-old resident of multiple medical problems including dementia. History is obtained from the family, chart and staff. The patient is status post ORIF of the right femur about a month ago and now septic and unable to answer questions and unable to tolerate feeds and needs for a feeding tube. PAST MEDICAL HISTORY: As above. PAST SURGICAL HISTORY: As above. MEDICATIONS: Reviewed. REVIEW OF SYSTEMS: All other systems have been reviewed and negative apart from the HPI. PHYSICAL EXAMINATION: GENERAL: This is a pleasant elderly appearing female, lying in bed comfortable, in no apparent distress. VITAL SIGNS: Here in the hospital are grossly unremarkable. HEENT: Head: Normocephalic and atraumatic. Eyes: Pupils are equal and reactive to light bilaterally. No conjunctival pallor or icterus. NECK: Supple. Normal range of motion. No lymph nodes appreciated. LUNGS: Coarse breath sounds bilaterally. HEART: S1 and S2, regular rate and rhythm. No murmurs appreciated. ABDOMEN: Soft, nontender. Bowel sounds present. No rebound. No guarding. RECTAL: Deferred. EXTREMITIES: Pulses present bilaterally. SKIN: Warm, dry, and intact. NEUROLOGIC: A and O x3. LABORATORY DATA: Labs and radiology have been reviewed. WBC is 9.7, hemoglobin 12.3, hematocrit 38.8, platelet count is 99. INR is 1.8. Sodium 153. ASSESSMENT AND PLAN: This is an 83-year-old female with multiple medical problems, needing a feeding tube. The patient is clinically . Prognosis is poor. We need to discuss goals of care with family and team, nasogastric tube for now. Thank you for the consult. Zack Hackett MD/ PhD
[2018-05-25] MEDS: Proshield Plus GEL TOP SCH ×3 (05:00→18:05)
[2018-05-25 05:37] LABS: BASO % 0.2 % (0.0-2.0); EOS % 0.1 % (0.0-4.0); HEMOGLOBIN 9.7 g/dL (12.0-16.0); LYMPH # 0.3 K/uL (1.0-4.3); LYMPH % 2.6 % (20.0-40.0); MEAN CELL VOLUME 90.1 fl (81.0-99.0); MEAN CORPUSCULAR HEMOGLOBIN 28.7 pg (27.0-31.0); MEAN CORPUSCULAR HGB CONC 31.8 g/dL (33.0-37.0); MEAN PLATELET VOLUME 12.5 fl (7.2-11.7); MONO # 0.3 K/uL (0.0-0.8); MONO % 3.3 % (0.0-10.0); NEUT # 9.8 K/uL (1.8-7.0); NEUT % 93.8 % (50.0-75.0); PLATELET COUNT 101 K/uL (130-400); RBC 3.38 Mil/uL (3.80-5.20); RED CELL DISTRIBUTION WIDTH 17.5 % (11.5-14.5); WHITE BLOOD COUNT 10.4 K/uL (4.8-10.8)
[2018-05-25 05:54] LABS: BLOOD UREA NITROGEN 8 mg/dl (7-17); CALCIUM 7.8 mg/dL (8.4-10.2); GFR NON-AFRICAN AMERICAN > 60
[2018-05-25] MEDS ORDERED: Potassium Chloride 20 mEq/15 ml LIQ UD GT ONE (07:10)
[2018-05-25] MEDS ORDERED: Magnesium Sulfate 2 gm/50 ml 2 GM/50 ML BAG IVPB ONE (07:11)
[2018-05-25] MEDS ORDERED: Potassium Phosphate 30 MMOLE in Dextrose 5% In Water 250 ML IV ONE (07:12)
--- NOTE | 2018-05-25 09:09 | CP.PCM.PN ---
Subjective - Date & Time of Evaluation Date of Evaluation: 05/25/18 Time of Evaluation: 09:09 - Subjective Subjective: Patient does not respond to questions or exam. Objective - Vital Signs/Intake and Output Vital Signs (last 24 hours): Temp Pulse Resp BP Pulse Ox 98.4 F 101 H 33 H 134/55 L 98 05/25/18 08:00 05/25/18 08:00 05/25/18 08:00 05/25/18 08:00 05/25/18 08:00 Intake and Output: 05/25/18 05/25/18 06:59 18:59 Intake Total 1190 Output Total 950 Balance 240 - Medications Medications: Current Medications Albuterol/Ipratropium (Duoneb 3 Mg/0.5 Mg (3 Ml) Ud) 3 ml INH RQ6 PRN PRN Reason: Shortness of Breath Last Admin: 05/24/18 05:53 Dose: 3 ml Dimethicone (Proshield Plus Skin Protectant) 1 applic TOP Q8 BELLE Last Admin: 05/25/18 05:00 Dose: 1 applic Enoxaparin Sodium (Lovenox) 30 mg SC DAILY BELLE; Protocol Last Admin: 05/24/18 08:16 Dose: 30 mg Hydromorphone HCl (Dilaudid) 0.5 mg IVP Q4 PRN PRN Reason: Pain, moderate (4-7) Vancomycin HCl 750 mg/ Sodium (Chloride) 250 mls @ 250 mls/hr IVPB Q12 BELLE; Protocol Last Admin: 05/24/18 20:22 Dose: 250 mls/hr Levofloxacin/Dextrose (Levaquin 500mg) 500 mg in 100 mls @ 100 mls/hr IVPB DAILY BELLE; Protocol Last Admin: 05/24/18 09:23 Dose: 100 mls/hr Sodium Chloride (Sodium Chloride 0.45%) 1,000 mls @ 50 mls/hr IV .Q20H BELLE Stop: 05/25/18 13:07 Last Admin: 05/24/18 11:00 Dose: 50 mls/hr Potassium Chloride (Potassium Chloride 10 Meq/100 Ml) 100 mls @ 100 mls/hr IVPB Q1 BELLE Stop: 05/25/18 10:59 Potassium Phosphate 30 mmole/ (Dextrose) 260 mls @ 84 mls/hr IV .Q3H6M ONE Stop: 05/25/18 10:17 Levetiracetam (Keppra) 500 mg PO BID BELLE Last Admin: 05/24/18 16:17 Dose: 500 mg Sodium Hypochlorite (Dakins Solution 0.125%) 1 appl TOP Q12H BELLE Last Admin: 05/25/18 05:00 Dose: 1 appl - Labs Labs: 05/25/18 04:25 05/25/18 04:25 PT 20.0 Seconds (9.8-13.1) H 05/20/18 13:00 INR 1.8 05/20/18 13:00 APTT 30.8 Seconds (25.6-37.1) 05/20/18 13:00 - Extremities Exam Additional comments: right leg: ivckie removed from proximal tibia. Incision healed. steristrips applied. venodynes intact. +DP/PT pulses Assessment and Plan (1) S/P ORIF (open reduction internal fixation) fracture Assessment & Plan: 5 weeks s/p ORIF right distal femur xrays reviewed, limited views, position of fracture and hardware acceptable, no sig change in position, appears to be some callus formation NWB RLE PT/OT when appropriate VTE proph orthopedically stable d/w Dr. Barboza, agrees with above Status: Chronic Radiology Interpretation - Radiology Interpretation #3 Interpretation: atient Name / ID : LENORA PAGAN N / [id number] Exam Date : 05/23/2018 09:15:27 ( Approved ) Study Comment : Sex / Age : F / 83Y Creator : Maik Bansal MD Dictator : Maik Bansal MD Heater Worker : Hem Inspector : Maik Bansal MD Approver2 : Report Date : 05/23/2018 10:20:01 My Comment : Date of service: 05/23/2018 PROCEDURE: Right Femur Radiographs. HISTORY: s/p distal femur ORIF COMPARISON: None. TECHNIQUE: AP and Lateral Radiographs of the right femur. FINDINGS: FEMUR: The single portable view of the right femur demonstrates the patient to be status post ORIF distal femoral metadiaphyseal fracture. A plate and screw fixation device is noted. Evaluation is limited by the absence of additional views. SOFT TISSUES: Normal. OTHER FINDINGS: None. IMPRESSION: Limited evaluation. Status post ORIF distal femoral fracture.
[2018-05-25] MEDS: Sodium Chloride 0.45% 1,000 ML IV SCH ×2 (09:15→09:44)
[2018-05-25] MEDS: Potassium CL 10mEq/100ml 100 ML IVPB SCH ×4 (09:37→13:41)
[2018-05-25] MEDS: Enoxaparin 30 mg Syringe SC SCH (09:43)
[2018-05-25] MEDS: levETIRAcetam 100 mg/ml (5ml) Oral Syringe PO SCH ×2 (09:43→18:04)
[2018-05-25] MEDS: levoFLOXacin 500 mg in D5W 500 MG/100 ML BAG IVPB SCH (11:04)
--- NOTE | 2018-05-25 12:21 | CP.PCM.PN ---
Subjective - Date & Time of Evaluation Date of Evaluation: 05/25/18 Time of Evaluation: 12:19 - Subjective Subjective: Neurology Follow-Up Note: Mrs. Laureano was evaluated this morning at bedside in the ICU. Pt remains unable to answer questions or follow commands. Chart reviewed. ROS unobtainable from pt 2/2 her current condition. Objective - Vital Signs/Intake and Output Vital Signs (last 24 hours): Temp Pulse Resp BP Pulse Ox 99.2 F 116 H 33 H 128/63 99 05/25/18 12:00 05/25/18 12:00 05/25/18 12:00 05/25/18 12:00 05/25/18 12:00 Intake and Output: 05/25/18 05/25/18 06:59 18:59 Intake Total 1190 180 Output Total 950 Balance 240 180 - Medications Medications: Current Medications Albuterol/Ipratropium (Duoneb 3 Mg/0.5 Mg (3 Ml) Ud) 3 ml INH RQ6 PRN PRN Reason: Shortness of Breath Last Admin: 05/24/18 05:53 Dose: 3 ml Dimethicone (Proshield Plus Skin Protectant) 1 applic TOP Q8 BELLE Last Admin: 05/25/18 09:43 Dose: 1 applic Enoxaparin Sodium (Lovenox) 30 mg SC DAILY BELLE; Protocol Last Admin: 05/25/18 09:43 Dose: 30 mg Hydromorphone HCl (Dilaudid) 0.5 mg IVP Q4 PRN PRN Reason: Pain, moderate (4-7) Vancomycin HCl 750 mg/ Sodium (Chloride) 250 mls @ 250 mls/hr IVPB Q12 BELLE; Protocol Last Admin: 05/25/18 12:16 Dose: 250 mls/hr Levofloxacin/Dextrose (Levaquin 500mg) 500 mg in 100 mls @ 100 mls/hr IVPB DAILY BELLE; Protocol Last Admin: 05/25/18 11:04 Dose: 100 mls/hr Sodium Chloride (Sodium Chloride 0.45%) 1,000 mls @ 50 mls/hr IV .Q20H BELLE Stop: 05/25/18 13:07 Last Admin: 05/24/18 11:00 Dose: 50 mls/hr Levetiracetam (Keppra) 500 mg PO BID BELLE Last Admin: 05/25/18 09:43 Dose: 500 mg Sodium Hypochlorite (Dakins Solution 0.125%) 1 appl TOP Q12H BELLE Last Admin: 05/25/18 05:00 Dose: 1 appl - Labs Labs: 05/25/18 04:25 05/25/18 04:25 PT 20.0 Seconds (9.8-13.1) H 05/20/18 13:00 INR 1.8 05/20/18 13:00 APTT 30.8 Seconds (25.6-37.1) 05/20/18 13:00 - Constitutional Appears: Other (nonverbal; moans occasionally during exam) - Head Exam Head Exam: ATRAUMATIC, NORMAL INSPECTION, NORMOCEPHALIC - Eye Exam Eye Exam: Normal appearance. absent: Nystagmus Pupil Exam: NORMAL ACCOMODATION Additional comments: opens eye in response to sternal rub - ENT Exam ENT Exam: Mucous Membranes Moist - Neck Exam Neck Exam: Normal Inspection - Respiratory Exam Additional comments: tachypneic - Cardiovascular Exam Cardiovascular Exam: Tachycardia (hr 112 on tele mx) - GI/Abdominal Exam GI & Abdominal Exam: Soft Additional comments: ngt in place - Extremities Exam Extremities Exam: absent: Calf Tenderness, Full ROM, Pedal Edema Additional comments: BLE movements noted during exam BUE fall immediately to bed when raised; no resistance noted - Neurological Exam Neurological Exam: Altered. absent: Alert, Awake, Normal Gait, Oriented x3 Additional comments: Pt remains nonverbal, moans during exam. She is lethargic today but arousable to sternal rub (grimaces and opens eyes). Unable to follow commands. Moves BLE independently today but with generalized weakness; BUE fall immedia tely to bed when raised, no resistance noted. No tremors noted. Toes down-going b/l. Unable to assess sensation 2/2 pt nonverbal and not following commands. - Psychiatric Exam Additional comments: nonverbal; moans occasionally during exam - Skin Skin Exam: Normal Color Assessment and Plan (1) Toxic metabolic encephalopathy Assessment & Plan: Imaging reviewed: -EEG (05/22/18): This is an abnormal EEG record that demonstrate the presence of a mild to moderate non specific diffuse disturbance of cortical activity, this is in keeping with a diffuse way matter dysfunction. These findings do not support a specific etiology. 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 No seizures were captured. -CT head (05/20/18): No acute intracranial pathology. Age-related changes. Mild sphenoid sinus disease. No significant interval change. -Likely 2/2 to infection and hypernatremia. -Continue current treatment and management of infectious process and electrolyte imbalance (hypernatremia seems to have resolved but she now has hypokalemia). -Lamotrigine level resulted and noted to be low based on the levels provide by the lab (0.6 mcg/ml, see result) -Continue Keppra as ordered as the pt seems to be tolerating. -Notify neuro team of any acute changes in pt's condition. Case discussed with Dr. Flanagan Status: Acute
--- NOTE | 2018-05-25 12:49 | CP.PCM.CON ---
History of Present Illness - History of Present Illness History of Present Illness: Infectious Disease Consultation Note- asked to see this patient at the request of for sepsis/ sacral decub aspiration pneumonia and help with antibiotic management. HPI- History obtained from the medical chart and the nurse as patient is nonverbal. Pt. is a 83 year old female [place] resident who was admitted to [facility] on 05/20/2018 for AMS. lethargy and fever. Pt. has PMH of advanced dementia, copd, CAD s/p CABG, seizure disorder, s/p recent right femur ORIF in 04/2018 . Patietn was found to have hypernatremia on admission along with minimal leukocytosis which have both now eresolved. pt. has been found to have large mid sacral decub satge 4 and 2 smaller upper back decubs stage 1 and 2. as per the wound nurse the decubs were not present in april. pt. is on ventimask and lethargic and does not answer any of my questions. Pt. was seen with the nurse. Review of Systems - Review of Systems Review of Systems: ROS- Unable to obtain as patient does not answer any questions Past Patient History - Infectious Disease Hx of Infectious Diseases: None - Past Medical History & Family History Past Medical History?: Yes - Past Social History Smoking Status: Unknown If Ever Smoked Home Situation {Lives}: Intermediate - CARDIAC Hx Cardiac Disorders: Yes Hx Congestive Heart Failure: Yes Hx Hypercholesterolemia: Yes Hx Hypertension: Yes - PULMONARY Hx Respiratory Disorders: Yes Hx Asthma: Yes Hx Chronic Obstructive Pulmonary Disease (COPD): Yes - NEUROLOGICAL Hx Neurological Disorder: Yes Hx Dementia: Yes Hx Seizures: Yes Other/Comment: fall - HEENT Hx HEENT Problems: No Hx Deafness: Yes (hearing aid) - RENAL Hx Chronic Kidney Disease: No - ENDOCRINE/METABOLIC Hx Endocrine Disorders: No Hx Diabetes Mellitus Type 2: No - HEMATOLOGICAL/ONCOLOGICAL Hx Blood Disorders: Yes Hx Anemia: Yes - INTEGUMENTARY Hx Dermatological Problems: No - MUSCULOSKELETAL/RHEUMATOLOGICAL Hx Arthritis: Yes (poly) Hx Back Pain: Yes Hx Falls: Yes Hx Fractures: Yes (L wrist , comp Fx T Spine, Fx L wrist, ORIF R distal Femur Fx 04-11-18) Hx Osteoporosis: Yes Hx Unsteady Gait: Yes Other/Comment: ORIF Right Pathological distal femur fracture 04-11-18 - GASTROINTESTINAL Hx Gastrointestinal Disorders: Yes Hx Constipation: Yes Other/Comment: Cholecystitis - GENITOURINARY/GYNECOLOGICAL Hx Genitourinary Disorders: Yes - PSYCHIATRIC Hx Psychophysiologic Disorder: Yes Hx Anxiety: Yes Hx Depression: Yes Hx Substance Use: No - SURGICAL HISTORY Hx Surgeries: Yes Hx Cholecystectomy: Yes Hx Coronary Artery Bypass Graft: Yes Hx Open Reduction Internal Fixation: Yes Other/Comment: ORIF R Pathological distal Femur Fx 04-11-18, compression Fx T Spine, Fx L wrist - ANESTHESIA Hx Anesthesia: Yes Hx Anesthesia Reactions: No Hx Malignant Hyperthermia: No Has any member of the family had a problem w/ anesthesia?: No Meds Allergies/Adverse Reactions: Allergies Allergy/AdvReac Type Severity Reaction Status Date / Time Penicillins Allergy RASH Verified 05/25/17 12:15 - Medications Medications: Current Medications Albuterol/Ipratropium (Duoneb 3 Mg/0.5 Mg (3 Ml) Ud) 3 ml INH RQ6 PRN PRN Reason: Shortness of Breath Last Admin: 05/24/18 05:53 Dose: 3 ml Dimethicone (Proshield Plus Skin Protectant) 1 applic TOP Q8 BELLE Last Admin: 05/25/18 09:43 Dose: 1 applic Enoxaparin Sodium (Lovenox) 30 mg SC DAILY BELLE; Protocol Last Admin: 05/25/18 09:43 Dose: 30 mg Hydromorphone HCl (Dilaudid) 0.5 mg IVP Q4 PRN PRN Reason: Pain, moderate (4-7) Vancomycin HCl 750 mg/ Sodium (Chloride) 250 mls @ 250 mls/hr IVPB Q12 BELLE; Protocol Last Admin: 05/25/18 12:16 Dose: 250 mls/hr Levofloxacin/Dextrose (Levaquin 500mg) 500 mg in 100 mls @ 100 mls/hr IVPB DAILY BELLE; Protocol Last Admin: 05/25/18 11:04 Dose: 100 mls/hr Sodium Chloride (Sodium Chloride 0.45%) 1,000 mls @ 50 mls/hr IV .Q20H BELLE Stop: 05/25/18 13:07 Last Admin: 05/25/18 09:15 Dose: Not Given Clindamycin Phosphate (Cleocin) 600 mg in 50 mls @ 50 mls/hr IVPB Q8 BELLE; Protocol Levetiracetam (Keppra) 500 mg PO BID BELLE Last Admin: 05/25/18 09:43 Dose: 500 mg Sodium Hypochlorite (Dakins Solution 0.125%) 1 appl TOP Q12H [facility] Last Admin: 05/25/18 05:00 Dose: 1 appl Physical Exam - Constitutional Appears: Chronically Ill Additional comments: nonverbal, lethargic - Head Exam Head Exam: ATRAUMATIC - ENT Exam Additional comments: dry oral mucosa - Neck Exam Neck exam: Positive for: Full Rom - Respiratory Exam Additional comments: no wheezing decreased breath sounds at right base - Cardiovascular Exam Cardiovascular Exam: RRR, +S1, +S2 - GI/Abdominal Exam GI & Abdominal Exam: Normal Bowel Sounds, Soft Additional comments: NT, ND - Extremities Exam Additional comments: right femur surgical site with steri strips in place clean/dry/Intact no erythema has left great toe small ulcer at the tip , no discharge, no open wound - Neurological Exam Neurological exam: Altered - Skin Additional comments: mid sacral stage 4 decub, no discharge mid upper back 2 smaller uleartions one stage 2 with escahr and the superio one stage 1, no opening - Additional Findings Additional findings: lines- has baeza in place and as per nurse thinks baeza is from [place] Results - Vital Signs Recent Vital Signs: Last Vital Signs Temp 99.2 F 05/25/18 12:00 Pulse 116 H 05/25/18 12:00 Resp 33 H 05/25/18 12:00 BP 128/63 05/25/18 12:00 Pulse Ox 99 05/25/18 12:00 - Labs Result Diagrams: 05/25/18 04:25 05/25/18 04:25 Labs: Laboratory Results - last 24 hr 05/20/18 05/25/18 05/25/18 15:40 04:25 04:25 WBC 10.4 RBC 3.38 L Hgb 9.7 L Hct 30.5 L MCV 90.1 D MCH 28.7 MCHC 31.8 L RDW 17.5 H Plt Count 101 L MPV 12.5 H Neut % (Auto) 93.8 H Lymph % (Auto) 2.6 L Mellette % (Auto) 3.3 Eos % (Auto) 0.1 Baso % (Auto) 0.2 Neut # (Auto) 9.8 H Lymph # (Auto) 0.3 L Mellette # (Auto) 0.3 Eos # (Auto) 0.0 Baso # (Auto) 0.0 Sodium 146 Potassium 2.3 L* D Chloride 110 H Carbon Dioxide 31 H Anion Gap 7 L BUN 8 Creatinine 0.3 L Est GFR ( Amer) > 60 Est GFR (Non-Af Amer) > 60 Random Glucose 234 H Calcium 7.8 L Lamotrigine 0.6 mcg/ml l Laboratory Results - last 72 hr 05/20/18 05/23/18 05/23/18 15:40 04:30 04:30 WBC 12.5 H RBC 3.43 L Hgb 10.1 L Hct 32.1 L MCV 93.7 MCH 29.5 MCHC 31.5 L RDW 18.1 H Plt Count 129 L MPV Neut % (Auto) Lymph % (Auto) Mellette % (Auto) Eos % (Auto) Baso % (Auto) Neut # (Auto) Lymph # (Auto) Mellette # (Auto) Eos # (Auto) Baso # (Auto) Neutrophils % (Manual) Lymphocytes % (Manual) Monocytes % (Manual) Eosinophils % (Manual) Platelet Estimate Large Platelets Giant Platelets Hypochromasia (manual) Anisocytosis (manual) Target Cells Tear Drop Cells Ovalocytes pCO2 pO2 HCO3 ABG pH ABG Total CO2 ABG O2 Saturation ABG O2 Content ABG Base Excess ABG Hemoglobin ABG Carboxyhemoglobin POC ABG HHb (Measured) ABG Methemoglobin ABG O2 Capacity Oswaldo Test A-a O2 Difference Hgb O2 Saturation FiO2 Sodium 156 H Potassium 3.6 Chloride 128 H Carbon Dioxide 25 Anion Gap 7 L BUN 20 H Creatinine 0.4 L Est GFR ( Amer) > 60 Est GFR (Non-Af Amer) > 60 Random Glucose 208 H Calcium 8.5 Phosphorus 1.7 L Magnesium 2.3 Total Bilirubin 0.6 AST 53 H D ALT 27 Alkaline Phosphatase 162 H D Total Protein 5.3 L Albumin 2.2 L Globulin 3.2 Albumin/Globulin Ratio 0.7 L Lamotrigine 0.6 mcg/ml l 05/24/18 05/24/18 05/24/18 05:10 05:10 06:35 WBC 9.7 RBC 3.53 L Hgb 10.3 L Hct 32.8 L MCV 92.9 MCH 29.2 MCHC 31.4 L RDW 18.3 H Plt Count 99 L D MPV 12.4 H Neut % (Auto) 92.8 H Lymph % (Auto) 4.3 L Mellette % (Auto) 2.2 Eos % (Auto) 0.4 Baso % (Auto) 0.3 Neut # (Auto) 9.0 H Lymph # (Auto) 0.4 L Mellette # (Auto) 0.2 Eos # (Auto) 0.0 Baso # (Auto) 0.0 Neutrophils % (Manual) 89 H Lymphocytes % (Manual) 6 L Monocytes % (Manual) 4 Eosinophils % (Manual) 1 Platelet Estimate Decreased L Large Platelets Present Giant Platelets Present Hypochromasia (manual) Slight Anisocytosis (manual) Slight Target Cells Slight Tear Drop Cells Ovalocytes pCO2 36 pO2 63 L HCO3 27.9 ABG pH 7.49 H ABG Total CO2 28.5 H ABG O2 Saturation 96.4 ABG O2 Content 13.2 L ABG Base Excess 3.9 H ABG Hemoglobin 10.0 L ABG Carboxyhemoglobin 1.3 POC ABG HHb (Measured) 3.5 ABG Methemoglobin 1.4 ABG O2 Capacity 13.7 L Oswaldo Test Yes A-a O2 Difference 605.0 Hgb O2 Saturation 93.8 L FiO2 100.0 Sodium 153 H Potassium 3.8 Chloride 122 H Carbon Dioxide 27 Anion Gap 8 L BUN 15 Creatinine 0.3 L Est GFR ( Amer) > 60 Est GFR (Non-Af Amer) > 60 Random Glucose 248 H Calcium 8.4 Phosphorus Magnesium Total Bilirubin AST ALT Alkaline Phosphatase Total Protein Albumin Globulin Albumin/Globulin Ratio Lamotrigine 05/25/18 05/25/18 04:25 04:25 WBC 10.4 RBC 3.38 L Hgb 9.7 L Hct 30.5 L MCV 90.1 D MCH 28.7 MCHC 31.8 L RDW 17.5 H Plt Count 101 L MPV 12.5 H Neut % (Auto) 93.8 H Lymph % (Auto) 2.6 L Mellette % (Auto) 3.3 Eos % (Auto) 0.1 Baso % (Auto) 0.2 Neut # (Auto) 9.8 H Lymph # (Auto) 0.3 L Mellette # (Auto) 0.3 Eos # (Auto) 0.0 Baso # (Auto) 0.0 Neutrophils % (Manual) 91 H Lymphocytes % (Manual) 4 L Monocytes % (Manual) 5 Eosinophils % (Manual) Platelet Estimate Decreased L Large Platelets Present Giant Platelets Hypochromasia (manual) Slight Anisocytosis (manual) Slight Target Cells Tear Drop Cells Slight Ovalocytes Slight pCO2 pO2 HCO3 ABG pH ABG Total CO2 ABG O2 Saturation ABG O2 Content ABG Base Excess ABG Hemoglobin ABG Carboxyhemoglobin POC ABG HHb (Measured) ABG Methemoglobin ABG O2 Capacity Oswaldo Test A-a O2 Difference Hgb O2 Saturation FiO2 Sodium 146 Potassium 2.3 L* D Chloride 110 H Carbon Dioxide 31 H Anion Gap 7 L BUN 8 Creatinine 0.3 L Est GFR ( Amer) > 60 Est GFR (Non-Af Amer) > 60 Random Glucose 234 H Calcium 7.8 L Phosphorus Magnesium Total Bilirubin AST ALT Alkaline Phosphatase Total Protein Albumin Globulin Albumin/Globulin Ratio Lamotrigine Microbiology 05/20/18 13:00 Blood Blood Culture - Final NO GROWTH AFTER 5 DAYS 05/20/18 13:00 Blood Gram Stain - Final TEST NOT PERFORMED 05/21/18 09:10 Blood-Venous Blood Culture - Preliminary NO GROWTH AFTER 4 DAYS 05/20/18 17:43 Nose MRSA Culture (Admit) - Final MRSA NOT DETECTED 05/20/18 13:34 Urine,Baeza Urine Culture - Final Enterococcus Faecalis Microbiology 04/13/18 12:50 Blood Blood Culture - Final 04/13/18 12:50 Blood Gram Stain - Final NO GROWTH AFTER 5 DAYS TEST NOT PERFORMED 04/13/18 12:50 Blood Blood Culture - Final 04/13/18 12:50 Blood Gram Stain - Final NO GROWTH AFTER 5 DAYS TEST NOT PERFORMED 04/11/18 23:45 Urine,Catheterized Urine Culture - Final No Growth (<1,000 CFU/ML) 04/11/18 22:15 Blood-Venous Blood Culture - Final 04/11/18 22:15 Blood-Venous Gram Stain - Final NO GROWTH AFTER 5 DAYS TEST NOT PERFORMED 04/11/18 22:00 Blood-Venous S.aureus & Coag-Neg Staph PNA FISH - Final 04/11/18 22:00 Blood-Venous Gram Stain - Final Coagulase Neg Staphylococcus Accession No. : [id number] Patient Name / ID : LENORA PAGAN N / [id number] Exam Date : 05/24/2018 13:14:00 ( Approved ) Study Comment : Sex / Age : F / 83Y Creator : William Chua MD Dictator : William Chua MD Business Objects : Hand Etcher Helper : William Chua MD Approver2 : Report Date : 05/24/2018 14:14:17 My Comment : Date of service: 05/24/2018 HISTORY: resp distress COMPARISON: Chest radiograph dated 05/23/2018. FINDINGS: LUNGS: Pulmonary vascular congestion. Right basilar infiltrate. PLEURA: No significant pleural effusion identified, no pneumothorax apparent. CARDIOVASCULAR: Aortic atherosclerotic calcifications. Cardiomediastinal silhouette stably enlarged. OSSEOUS STRUCTURES: Unchanged. VISUALIZED UPPER ABDOMEN: Normal. OTHER FINDINGS: Enteric tube, unchanged. IMPRESSION: Pulmonary vascular congestion. Right basilar infiltrate. Enteric tube in satisfactory position.Accession No. : [id number] Patient Name / ID : LENORA PAGAN N / [id number] Exam Date : 05/23/2018 09:15:27 ( Approved ) Study Comment : Sex / Age : F / 83Y Creator : Maik Bansal MD Dictator : Maik Bansal MD Business Objects : Hand Etcher Helper : Maik Bansal MD Approver2 : Report Date : 05/23/2018 10:20:01 My Comment : Date of service: 05/23/2018 PROCEDURE: Right Femur Radiographs. HISTORY: s/p distal femur ORIF COMPARISON: None. TECHNIQUE: AP and Lateral Radiographs of the right femur. FINDINGS: FEMUR: The single portable view of the right femur demonstrates the patient to be status post ORIF distal femoral metadiaphyseal fracture. A plate and screw fixation device is noted. Evaluation is limited by the absence of additional views. SOFT TISSUES: Normal. OTHER FINDINGS: None. IMPRESSION: Limited evaluation. Status post ORIF distal femoral fracture. Accession No. : [id number] Patient Name / ID : LENORA PAGAN N / [id number] Exam Date : 05/20/2018 12:39:04 ( Approved ) Study Comment : Sex / Age : F / 83Y Creator : William Chua MD Dictator : William Chua MD Business Objects : Hand Etcher Helper : William Chua MD Approver2 : Report Date : 05/20/2018 12:55:43 My Comment : Date of service: 05/20/2018 PROCEDURE: CT HEAD WITHOUT CONTRAST. HISTORY: ams COMPARISON: Chest radiograph dated 05/20/2017 TECHNIQUE: Axial computed tomography images were obtained through the head/brain without intravenous contrast. Radiation dose: Total exam DLP = 855.1 mGy-cm. This CT exam was performed using one or more of the following dose reduction techniques: Automated exposure control, adjustment of the mA and/or kV according to patient size, and/or use of iterative reconstruction technique. FINDINGS: HEMORRHAGE: No intracranial hemorrhage. BRAIN: No mass effect or edema. Atrophy. Chronic microvascular ischemic changes. VENTRICLES: Unremarkable. No hydrocephalus. CALVARIUM: Unremarkable. PARANASAL SINUSES: Secretions in both sphenoid sinuses. MASTOID AIR CELLS: Unremarkable as visualized. No inflammatory changes. OTHER FINDINGS: None. IMPRESSION: No acute intracranial pathology. Age-related changes. Mild sphenoid sinus disease. No significant interval change. Assessment & Plan (1) Altered mental status Status: Acute Priority: High (2) Decubitus ulcer of sacral area Status: Acute Priority: High (3) Deep tissue injury Status: Acute (4) Hx of fracture of femur Status: Chronic Priority: High (5) Seizure disorder Status: Chronic - Assessment and Plan (Free Text) Assessment: A/P 83 year old female with multiple medical conditions icnluding CAD, Dementia, COPD, recent right fenur ORIF admitted form [place] for AMS and fever. the etiology of the fever on admission could be multifactorial aspiration pneumonia vs deceub ulcers vs viral etiology. pt. has been afebrile since admission. mild leukocytosis has resolved. UA- negative, urine cx- E.fecalis ( could eb contaminant ) since the UA from same day negative. CXR as per report ? right basilar infiltrate , could be secondary to aspiration. right femur Orif site looks clean and dry. PLan- check sputum cx. check blood cx x 2. advise to cover with empiric vanco for the deep sacral decub . keep trough <15. wound consult f/u recommendations. advise to monitor aspiration precautions as well. agree with clindamycin to cover for ? aspiration pneumonia. agree with levaquin as well that was already started by the admitting doc. advise podiatry eval of the left great toe ulceration. also advise to replace baeza with new baeza and check UA and urine cx from new baeza. All labs and imaging and pertinent chart notes reviewed. Thank you for allowing me to take part in the care of this patient. Critical care time 60 minutes.
--- NOTE | 2018-05-25 12:57 | CP.CCUPN ---
CCU Subjective - Physician Review Subjective (Free Text): Neuromental status unchanged: Eyes closed, not responsive nor follows any verbal commands or cues, intermittently opens eyes and moaning loudly, not distressed. NGT with ongoing tube feeds. Transitioned to lower FiO2 on nasal cannula with 99% SPO2. Very low quality spontaneous cough reflex. Nurses report no BMs. Other vitals and I/O's reviewed. Afebrile, no fever spikes, SBP 120-130s, HR 100, tachypneic with RR 30. Fluid balance positive 0.8 L last 24H. Urine output approx. 1650ml last 24H ROS: No other pertinent negs or positives on 10+ system review obtainable, nonverbal. PMSFH: All other Nursing and physician documentation reviewed to date; no new pertinent info noted relevant to current medical problems. EXAM- HEENT: no icterus, no gaze preference, pupils 3 mm bilat and reactive. NECK: No JVD visible, supple, carotids equal upstroke bilat/no bruit CHEST: decreased BS at the bases, no wheezes audible HEART: regular, distant, tachy S1S2, no rubs or murmurs noted ABD: softly and nontender, no guarding, no organomegaly, BS hypoactive. EXT: + LE edema, no calf tenderness or palpable cords, distal pulses intact and symmetrical. Mod size sacral decub stage 4, thoracic DTI. NEURO: withdraws arms to pain, + tone in all extremities. SKIN: no rashes, warm and dry LABS: WBC= 10.4 HGB= 9.7 PLTs= 101K Na= 146 K= 2.3 CL= 110 HCO3= 31 BUN/Cr= 8/0.3 BS= 234 IMPRESSION / MAJOR PROBLEMS NOW: 1. AMS, r/o NCSE, vs other occult seizure activity, metabolic Encephalopathy, possible Sepsis Encephalopathy; h/o Dementia 2. Acute resp insuff 2 bilateral Pneumonia, r/o Aspiration 3. h/o ORIF R Hip; L Femoral fracture repair 4. Chronic Disease Anemia 5. New Thrombocytopenia this Admission, h/o of Low Platelets; r/o Drug effect, DIC PLAN: 1. Hypernatremia resolved, stop hypotonic IVFs. 2. Total K to be supplemented today = 124 meq ( 40 meq IVPB, 40 dilcia K liquid via tube feeds, 44 meq via addition of 30 mmoles KPhos). Supplemental Mag 2 gms today as well. 3. check old records for baseline neuromental status. 4. lactulose 5. Ongoing Clinda/ Levaquin / Vanco. 6. No family visitations noted. Monitor resp status, try BiPAP if patient tolerates, otherwise, may need MV support if hypoxemia worsens. Full Code and resuscitation measures as per son.
[2018-05-25 13:01] LABS: LYMPHOCYTE 4 % (20-50); MONOCYTE 5 % (0-10); NEUTROPHIL 91 % (42-75); PLATELET ESTIMATE DECREASED (NORMAL); TOTAL CELLS COUNTED 100
[2018-05-25 13:02] LABS: ANISOCYTOSIS SLIGHT; HYPOCHROMIC SLIGHT
[2018-05-25 13:03] LABS: LARGE PLATELETS PRESENT; OVALOCYTES SLIGHT; TEARDROP CELLS SLIGHT
--- NOTE | 2018-05-25 16:43 | CP.PCM.PN ---
Subjective - Date & Time of Evaluation Date of Evaluation: 05/25/18 Time of Evaluation: 16:41 - Subjective Subjective: no overnight events Objective - Vital Signs/Intake and Output Vital Signs (last 24 hours): Temp Pulse Resp BP Pulse Ox 99.1 F 106 H 33 H 121/60 99 05/25/18 16:00 05/25/18 16:00 05/25/18 12:00 05/25/18 16:00 05/25/18 16:00 Intake and Output: 05/25/18 05/25/18 06:59 18:59 Intake Total 1190 1300 Output Total 950 Balance 240 1300 - Medications Medications: Current Medications Albuterol/Ipratropium (Duoneb 3 Mg/0.5 Mg (3 Ml) Ud) 3 ml INH RQ6 PRN PRN Reason: Shortness of Breath Last Admin: 05/24/18 05:53 Dose: 3 ml Dimethicone (Proshield Plus Skin Protectant) 1 applic TOP Q8 BELLE Last Admin: 05/25/18 09:43 Dose: 1 applic Enoxaparin Sodium (Lovenox) 30 mg SC DAILY BELLE; Protocol Last Admin: 05/25/18 09:43 Dose: 30 mg Hydromorphone HCl (Dilaudid) 0.5 mg IVP Q4 PRN PRN Reason: Pain, moderate (4-7) Vancomycin HCl 750 mg/ Sodium (Chloride) 250 mls @ 250 mls/hr IVPB Q12 BELLE; Protocol Last Admin: 05/25/18 12:16 Dose: 250 mls/hr Levofloxacin/Dextrose (Levaquin 500mg) 500 mg in 100 mls @ 100 mls/hr IVPB DAILY BELLE; Protocol Last Admin: 05/25/18 11:04 Dose: 100 mls/hr Clindamycin Phosphate (Cleocin) 600 mg in 50 mls @ 50 mls/hr IVPB Q8 BELLE; Protocol Lactulose (Enulose) 20 gm PO Q12 BELLE Stop: 05/26/18 09:01 Last Admin: 05/25/18 13:54 Dose: 20 gm Levetiracetam (Keppra) 500 mg PO BID BELLE Last Admin: 05/25/18 09:43 Dose: 500 mg Sodium Hypochlorite (Dakins Solution 0.125%) 1 appl TOP Q12H BELLE Last Admin: 05/25/18 05:00 Dose: 1 appl - Labs Labs: 05/25/18 04:25 05/25/18 04:25 PT 20.0 Seconds (9.8-13.1) H 05/20/18 13:00 INR 1.8 05/20/18 13:00 APTT 30.8 Seconds (25.6-37.1) 05/20/18 13:00 - Neck Exam Neck Exam: Normal Inspection - Respiratory Exam Respiratory Exam: Wheezes - Cardiovascular Exam Cardiovascular Exam: REGULAR RHYTHM - GI/Abdominal Exam GI & Abdominal Exam: Soft, Normal Bowel Sounds Assessment and Plan - Assessment and Plan (Free Text) Assessment: 83 yo female with sepsis asked to insert peg once sepsis resolved and breathing improved, will proceed with peg
--- NOTE | 2018-05-25 16:50 | CARD ---
APPROVED REPORT Date of service: 05/25/2018 EXAM: Two-dimensional and M-mode echocardiogram with Doppler and color Doppler. Other Information Quality : GoodRhythm : Tachycardia INDICATION Sepsis 2D DIMENSIONS IVSd1.26 (0.7-1.1cm)LVDd4.07 (3.9-5.9cm) LVOT Diameter1.77 (1.8-2.4cm)PWd1.04 (0.7-1.1cm) IVSs1.48 (0.8-1.2cm)LVDs3.38 (2.5-4.0cm) FS (%) 16.9 %PWs1.10 (0.8-1.2cm) Aortic Valve AoV Peak Rroywres000.1cm/sAoV VTI32.1cmAO Peak GR.16mmHg LVOT Peak Dyngcina974.5cm/sLVOT VTI17.20cmAO Mean GR.9mmHg EARNEST (VMAX)0.59pf4YGW (VTI)0.90cm2 Mitral Valve E/A ratio0.0 TDI E/Lateral E'0.0E/Medial E'0.0 Tricuspid Valve TR Peak Lawstexn207pv/sRAP [id number] Peak Gr.26mmHg [id number] LEFT VENTRICLE The left ventricle is normal size. There is normal left ventricular wall thickness. The left ventricular systolic function is normal. The estimated ejection fraction is 60-65% No regional wall motion abnormalities noted.. Transmitral Doppler flow pattern is Grade I-abnormal relaxation pattern. No left ventricle thrombus noted on this study. There is no ventricular septal defect visualized. There is no left ventricular aneurysm. There is no mass noted in the left ventricle. RIGHT VENTRICLE The right ventricle is normal size. There is normal right ventricular wall thickness. The right ventricular systolic function is normal. ATRIA The left atrium size is normal. The right atrium size is normal. The interatrial septum is intact with no evidence for an atrial septal defect. AORTIC VALVE The aortic valve is normal in structure. Mild aortic regurgitation is present. There is no aortic valvular stenosis. There is no aortic valvular vegetation. MITRAL VALVE The mitral valve is normal in structure. There is no evidence of mitral valve prolapse. There is no mitral valve stenosis. There is no mitral valve regurgitation noted. TRICUSPID VALVE The tricuspid valve is normal in structure. There is mild tricuspid valve regurgitation noted. RVSP is calculated at 31 mm Hg. There is no tricuspid valve prolapse or vegetation. There is no tricuspid valve stenosis. PULMONIC VALVE The pulmonary valve is normal in structure. There is no pulmonic valvular regurgitation. There is no pulmonic valvular stenosis. GREAT VESSELS The aortic root is normal in size. The ascending aorta is normal in size. The pulmonary artery is normal. The IVC is not visualized. PERICARDIAL EFFUSION There is no pericardial effusion. There is no pleural effusion. <Conclusion> The estimated ejection fraction is 60-65%. Transmitral Doppler flow pattern is Grade I-abnormal relaxation pattern. The left atrium size is normal. Mild aortic regurgitation is present. There is mild tricuspid valve regurgitation noted. RVSP is calculated at 31 mm Hg. The IVC is not visualized.
[2018-05-25] MEDS: Clindamycin 600mg/50ml D5W 600 MG/50 ML VIAL IVPB SCH (18:04)
--- NOTE | 2018-05-25 19:26 | CP.PCM.PN ---
Subjective - Date & Time of Evaluation Date of Evaluation: 05/25/18 Time of Evaluation: 11:30 - Subjective Subjective: F/U AMS. moaning, on NR Mask 100% Objective - Vital Signs/Intake and Output Vital Signs (last 24 hours): Temp Pulse Resp BP Pulse Ox 99.1 F 106 H 33 H 121/60 99 05/25/18 16:00 05/25/18 16:00 05/25/18 12:00 05/25/18 16:00 05/25/18 16:00 Intake and Output: 05/25/18 05/26/18 18:59 06:59 Intake Total 1300 Balance 1300 - Medications Medications: Current Medications Albuterol/Ipratropium (Duoneb 3 Mg/0.5 Mg (3 Ml) Ud) 3 ml INH RQ6 PRN PRN Reason: Shortness of Breath Last Admin: 05/24/18 05:53 Dose: 3 ml Dimethicone (Proshield Plus Skin Protectant) 1 applic TOP Q8 [facility] Last Admin: 05/25/18 18:05 Dose: 1 applic Enoxaparin Sodium (Lovenox) 30 mg SC DAILY [facility]; Protocol Last Admin: 05/25/18 09:43 Dose: 30 mg Hydromorphone HCl (Dilaudid) 0.5 mg IVP Q4 PRN PRN Reason: Pain, moderate (4-7) Last Admin: 05/25/18 18:03 Dose: 0.5 mg Vancomycin HCl 750 mg/ Sodium (Chloride) 250 mls @ 250 mls/hr IVPB Q12 [facility]; Protocol Last Admin: 05/25/18 12:16 Dose: 250 mls/hr Levofloxacin/Dextrose (Levaquin 500mg) 500 mg in 100 mls @ 100 mls/hr IVPB DAILY [facility]; Protocol Last Admin: 05/25/18 11:04 Dose: 100 mls/hr Clindamycin Phosphate (Cleocin) 600 mg in 50 mls @ 50 mls/hr IVPB Q8 [facility]; Protocol Last Admin: 05/25/18 18:04 Dose: 50 mls/hr Lactulose (Enulose) 20 gm PO Q12 [facility] Stop: 05/26/18 09:01 Last Admin: 05/25/18 13:54 Dose: 20 gm Levetiracetam (Keppra) 500 mg PO BID [facility] Last Admin: 05/25/18 18:04 Dose: 500 mg Sodium Hypochlorite (Dakins Solution 0.125%) 1 appl TOP Q12H [facility] Last Admin: 05/25/18 18:05 Dose: 1 appl - Labs Labs: 05/25/18 04:25 05/25/18 04:25 PT 20.0 Seconds (9.8-13.1) H 05/20/18 13:00 INR 1.8 05/20/18 13:00 APTT 30.8 Seconds (25.6-37.1) 05/20/18 13:00 - Constitutional Appears: No Acute Distress, Chronically Ill - Head Exam Head Exam: NORMAL INSPECTION - Eye Exam Eye Exam: PERRL - ENT Exam ENT Exam: Normal Exam Additional comments: NG tube - Neck Exam Neck Exam: Normal Inspection - Respiratory Exam Respiratory Exam: Decreased Breath Sounds (at bases), Rhonchi (scattered) - Cardiovascular Exam Cardiovascular Exam: REGULAR RHYTHM - GI/Abdominal Exam GI & Abdominal Exam: Soft, Normal Bowel Sounds Additional comments: NGT in pplace - Exam Additional comments: [place] in place - Extremities Exam Additional comments: R knee/femur in immobilizer, DTI R elbow and L heel. - Back Exam Additional comments: Sacral decubitus ulcer stage IV , Upper DTI - Neurological Exam Additional comments: Lethargic, arousable, moaning , unable to follows commands, generalized weakness. - Skin Skin Exam: Warm Assessment and Plan (1) Aspiration pneumonia Status: Acute (2) Sepsis Status: Acute (3) Toxic metabolic encephalopathy Status: Acute (4) Altered mental status Status: Acute (5) UTI (urinary tract infection) Assessment & Plan: E Fecalis Status: Acute (6) Dehydration Status: Acute (7) Hypernatremia Status: Acute (8) Decubitus ulcer of sacral area Status: Acute (9) Deep tissue injury Status: Acute (10) Chronic back pain Status: Chronic (11) Hx of fracture of femur Status: Chronic (12) HTN (hypertension) Status: Acute (13) COPD (chronic obstructive pulmonary disease) Status: Chronic (14) Hx of congestive heart failure Status: Chronic (15) Seizure disorder Status: Chronic - Assessment and Plan (Free Text) Plan: continue Vanco , Levaquin, DuoNeb, Kepra and rest of Tx, NR 100% Critical care time: 32 min.
--- NOTE | 2018-05-25 21:02 | CP.PCM.CON ---
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 Varghese: 82F w/ PMH Alzheimers, HTN, HLD, Asthma Anxiety, CHF, S/p CABG; Previously seen by Dr. Varghese for perioperative cardiovascular risk assessment for ORIF of closed R distal Femur Fx in April 2018. Patient presented from [place] on 05/21 w/ s/s / BL PNA and Encephalopathy; Patient was initially febrile + tachycardic on presentation Cardiology consulted given Cardiac history. Patient awake + altered at time of assessment; ROS unobtainable. Family history noncontributory. Home Medications: Lamotrigine 25 mg p.o. 3 times daily duloxetine 20 mg p.o. daily Neurontin 100 mg p.o. 3 times daily levocetirizine 5 mg p.o. daily meclizine 12.5 mg p.o. 3 times daily Ditropan XL 50 mg p.o. daily Motrin tablets 1 tablet every 8 hours Cymbalta 20 mg p.o. daily aspirin 81 mg p.o. daily salmeterol Advair Diskus Lipitor Dulcolax calcium vitamin D Depakote Claritin milk of magnesia. Allergies patient is allergic to penicillin and documented episode of rash Review of Systems - Review of Systems Systems not reviewed;Unavailable: Dementia, Altered Mental Status Past Patient History - Infectious Disease Hx of Infectious Diseases: None - Past Medical History & Family History Past Medical History?: Yes - Past Social History Smoking Status: Unknown If Ever Smoked Home Situation {Lives}: [facility] - CARDIAC Hx Cardiac Disorders: Yes Hx Congestive Heart Failure: Yes Hx Hypercholesterolemia: Yes Hx Hypertension: Yes - PULMONARY Hx Respiratory Disorders: Yes Hx Asthma: Yes Hx Chronic Obstructive Pulmonary Disease (COPD): Yes - NEUROLOGICAL Hx Neurological Disorder: Yes Hx Dementia: Yes Hx Seizures: Yes Other/Comment: fall - HEENT Hx HEENT Problems: No Hx Deafness: Yes (hearing aid) - RENAL Hx Chronic Kidney Disease: No - ENDOCRINE/METABOLIC Hx Endocrine Disorders: No Hx Diabetes Mellitus Type 2: No - HEMATOLOGICAL/ONCOLOGICAL Hx Blood Disorders: Yes Hx Anemia: Yes - INTEGUMENTARY Hx Dermatological Problems: No - MUSCULOSKELETAL/RHEUMATOLOGICAL Hx Arthritis: Yes (poly) Hx Back Pain: Yes Hx Falls: Yes Hx Fractures: Yes (L wrist , comp Fx T Spine, Fx L wrist, ORIF R distal Femur Fx 04-11-18) Hx Osteoporosis: Yes Hx Unsteady Gait: Yes Other/Comment: ORIF Right Pathological distal femur fracture 04-11-18 - GASTROINTESTINAL Hx Gastrointestinal Disorders: Yes Hx Constipation: Yes Other/Comment: Cholecystitis - GENITOURINARY/GYNECOLOGICAL Hx Genitourinary Disorders: Yes - PSYCHIATRIC Hx Psychophysiologic Disorder: Yes Hx Anxiety: Yes Hx Depression: Yes Hx Substance Use: No - SURGICAL HISTORY Hx Surgeries: Yes Hx Cholecystectomy: Yes Hx Coronary Artery Bypass Graft: Yes Hx Open Reduction Internal Fixation: Yes Other/Comment: ORIF R Pathological distal Femur Fx 04-11-18, compression Fx T Spine, Fx L wrist - ANESTHESIA Hx Anesthesia: Yes Hx Anesthesia Reactions: No Hx Malignant Hyperthermia: No Has any member of the family had a problem w/ anesthesia?: No Meds Allergies/Adverse Reactions: Allergies Allergy/AdvReac Type Severity Reaction Status Date / Time Penicillins Allergy RASH Verified 05/25/17 12:15 - Medications Medications: Current Medications Albuterol/Ipratropium (Duoneb 3 Mg/0.5 Mg (3 Ml) Ud) 3 ml INH RQ6 PRN PRN Reason: Shortness of Breath Last Admin: 05/24/18 05:53 Dose: 3 ml Dimethicone (Proshield Plus Skin Protectant) 1 applic TOP Q8 [facility] Last Admin: 05/25/18 18:05 Dose: 1 applic Enoxaparin Sodium (Lovenox) 30 mg SC DAILY [facility]; Protocol Last Admin: 05/25/18 09:43 Dose: 30 mg Hydromorphone HCl (Dilaudid) 0.5 mg IVP Q4 PRN PRN Reason: Pain, moderate (4-7) Last Admin: 05/25/18 18:03 Dose: 0.5 mg Vancomycin HCl 750 mg/ Sodium (Chloride) 250 mls @ 250 mls/hr IVPB Q12 [facility]; Protocol Last Admin: 05/25/18 12:16 Dose: 250 mls/hr Levofloxacin/Dextrose (Levaquin 500mg) 500 mg in 100 mls @ 100 mls/hr IVPB DAILY [facility]; Protocol Last Admin: 05/25/18 11:04 Dose: 100 mls/hr Clindamycin Phosphate (Cleocin) 600 mg in 50 mls @ 50 mls/hr IVPB Q8 [facility]; Protocol Last Admin: 05/25/18 18:04 Dose: 50 mls/hr Lactulose (Enulose) 20 gm PO Q12 [facility] Stop: 05/26/18 09:01 Last Admin: 05/25/18 13:54 Dose: 20 gm Levetiracetam (Keppra) 500 mg PO BID [facility] Last Admin: 05/25/18 18:04 Dose: 500 mg Sodium Hypochlorite (Dakins Solution 0.125%) 1 appl TOP Q12H [facility] Last Admin: 05/25/18 18:05 Dose: 1 appl Physical Exam - Constitutional Appears: Confused, Cachectic, Chronically Ill - Head Exam Head Exam: ATRAUMATIC, NORMOCEPHALIC - Eye Exam Eye Exam: EOMI, PERRL - Respiratory Exam Respiratory Exam: Rhonchi, Wheezes - Cardiovascular Exam Cardiovascular Exam: +S1, +S2 - GI/Abdominal Exam GI & Abdominal Exam: Soft. absent: Tenderness - Extremities Exam Extremities exam: Positive for: normal inspection - Neurological Exam Neurological exam: Altered - Skin Skin Exam: Dry, Normal Color, Warm Results - Vital Signs Recent Vital Signs: Last Vital Signs Temp 99.1 F 05/25/18 16:00 Pulse 106 H 05/25/18 16:00 Resp 33 H 05/25/18 12:00 BP 121/60 05/25/18 16:00 Pulse Ox 99 05/25/18 16:00 - Labs Result Diagrams: 05/25/18 04:25 05/25/18 04:25 Labs: Laboratory Results - last 24 hr 05/20/18 05/25/18 05/25/18 15:40 04:25 04:25 WBC 10.4 RBC 3.38 L Hgb 9.7 L Hct 30.5 L MCV 90.1 D MCH 28.7 MCHC 31.8 L RDW 17.5 H Plt Count 101 L MPV 12.5 H Neut % (Auto) 93.8 H Lymph % (Auto) 2.6 L [place] % (Auto) 3.3 Eos % (Auto) 0.1 Baso % (Auto) 0.2 Neut # (Auto) 9.8 H Lymph # (Auto) 0.3 L [place] # (Auto) 0.3 Eos # (Auto) 0.0 Baso # (Auto) 0.0 Neutrophils % (Manual) 91 H Lymphocytes % (Manual) 4 L Monocytes % (Manual) 5 Platelet Estimate Decreased L Large Platelets Present Hypochromasia (manual) Slight Anisocytosis (manual) Slight Tear Drop Cells Slight Ovalocytes Slight Sodium 146 Potassium 2.3 L* D Chloride 110 H Carbon Dioxide 31 H Anion Gap 7 L BUN 8 Creatinine 0.3 L Est GFR ( Amer) > 60 Est GFR (Non-Af Amer) > 60 Random Glucose 234 H Calcium 7.8 L Lamotrigine 0.6 mcg/ml l Assessment & Plan (1) Abdominal pain Status: Acute Priority: High (2) HTN (hypertension) Status: Acute Priority: Low (3) Hx of congestive heart failure Status: Chronic - Assessment and Plan (Free Text) Plan: bnp and troponin within normal limits Will continue to follow from a cardiac standpoint further recommendations as per Dr. Varghese pending - Date & Time Date: 05/26/18 Time: 11:00 <Juarez Varghese - Last Filed: 05/26/18 22:17> History of Present Illness - History of Present Illness History of Present Illness: Patient doesn't have hx of CABG stress test done last year in May showed normal EF with evidence of ischemia Review of Systems - Review of Systems Systems not reviewed;Unavailable: Acuity of Condition - Constitutional Constitutional: As Per HPI - EENT Eyes: As Per HPI Ears: As Per HPI Nose/Mouth/Throat: As Per HPI - Breasts Breasts: As Per HPI - Cardiovascular Cardiovascular: As Per HPI - Respiratory Respiratory: As Per HPI - Gastrointestinal Gastrointestinal: As Per HPI - Genitourinary Genitourinary: As Per HPI - Reproductive: Female Reproductive:Female: As Per HPI - Menstruation Menstruation: As Per HPI Meds - Medications Medications: Current Medications Albuterol/Ipratropium (Duoneb 3 Mg/0.5 Mg (3 Ml) Ud) 3 ml INH RQ6 PRN PRN Reason: Shortness of Breath Last Admin: 05/24/18 05:53 Dose: 3 ml Dimethicone (Proshield Plus Skin Protectant) 1 applic TOP Q8 [facility] Last Admin: 05/26/18 16:13 Dose: 1 applic Hydromorphone HCl (Dilaudid) 0.5 mg IVP Q4 PRN PRN Reason: Pain, moderate (4-7) Last Admin: 05/25/18 18:03 Dose: 0.5 mg Levofloxacin/Dextrose (Levaquin 500mg) 500 mg in 100 mls @ 100 mls/hr IVPB DAILY [facility]; Protocol Last Admin: 05/26/18 09:38 Dose: 100 mls/hr Clindamycin Phosphate (Cleocin) 600 mg in 50 mls @ 50 mls/hr IVPB Q8 [facility]; Protocol Last Admin: 05/26/18 16:12 Dose: 50 mls/hr Vancomycin HCl 500 mg/ Sodium (Chloride) 100 mls @ 100 mls/hr IVPB Q12 [facility]; Protocol Last Admin: 05/26/18 20:13 Dose: 100 mls/hr Levetiracetam (Keppra) 500 mg PO BID [facility] Last Admin: 05/26/18 16:12 Dose: 500 mg Sodium Hypochlorite (Dakins Solution 0.125%) 1 appl TOP Q12H [facility] Last Admin: 05/26/18 16:10 Dose: 1 appl Physical Exam - Constitutional Appears: Confused, Cachectic, Chronically Ill - Head Exam Head Exam: ATRAUMATIC, NORMOCEPHALIC - Eye Exam Eye Exam: PERRL - Respiratory Exam Respiratory Exam: Rales, Rhonchi - Cardiovascular Exam Cardiovascular Exam: Tachycardia, +S1, +S2, Systolic Murmur Results - Vital Signs Recent Vital Signs: Last Vital Signs Temp 99.6 F 05/26/18 20:00 Pulse 97 H 05/26/18 20:00 Resp 32 H 05/26/18 20:00 BP 107/52 L 05/26/18 20:00 Pulse Ox 100 05/26/18 20:00 - Labs Result Diagrams: 05/25/18 04:25 05/26/18 14:56 Labs: Laboratory Results - last 24 hr 05/26/18 05/26/18 05/26/18 05:25 05:25 06:30 pCO2 pO2 HCO3 ABG pH ABG Total CO2 ABG O2 Saturation ABG Base Excess Oswaldo Test ABG Potassium A-a O2 Difference Sodium Chloride Glucose Lactate Vent Mode FiO2 Blood Gas Comments Crit Value Called To Crit Value Called By Crit Value Read Back Blood Gas Notified Time Potassium Carbon Dioxide Anion Gap BUN Creatinine Est GFR ( Amer) Est GFR (Non-Af Amer) Random Glucose Calcium Phosphorus Magnesium NT-Pro-B Natriuret Pep 770 Arterial Blood Potassium Urine Color Yellow Urine Clarity Cloudy Urine pH 5.0 Ur Specific [place] 1.019 Urine Protein 30 Urine Glucose (UA) 50 Urine Ketones Negative Urine Blood Negative Urine Nitrate Negative Urine Bilirubin Negative Urine Urobilinogen 2.0 H Ur Leukocyte Esterase Neg Urine RBC (Auto) 6 H Urine Microscopic WBC 15 H Ur Squamous Epith Cells 2 Urine Bacteria Rare Hyaline Casts 3-5 H Vancomycin Trough 8.2 05/26/18 05/26/18 10:36 14:56 pCO2 47 H pO2 65 L HCO3 34.4 H ABG pH 7.50 H ABG Total CO2 38.1 H ABG O2 Saturation 98.9 H ABG Base Excess 12.2 H Oswaldo Test Yes ABG Potassium 2.4 L* A-a O2 Difference 161.0 Sodium 141.0 140 Chloride 107.0 102 Glucose 201 H Lactate 1.6 Vent Mode Nc FiO2 40.0 Blood Gas Comments Nc 5 Crit Value Called To Dr. debbi mina m.d Crit Value Called By Maxine Crit Value Read Back Y Blood Gas Notified Time 1049 Potassium 4.1 Carbon Dioxide 36 H Anion Gap 6 L BUN 8 Creatinine 0.3 L Est GFR ( Amer) > 60 Est GFR (Non-Af Amer) > 60 Random Glucose 148 H Calcium 7.6 L Phosphorus 2.4 L Magnesium 1.9 NT-Pro-B Natriuret Pep Arterial Blood Potassium 2.4 L* Urine Color Urine Clarity Urine pH Ur Specific [place] Urine Protein Urine Glucose (UA) Urine Ketones Urine Blood Urine Nitrate Urine Bilirubin Urine Urobilinogen Ur Leukocyte Esterase Urine RBC (Auto) Urine Microscopic WBC Ur Squamous Epith Cells Urine Bacteria Hyaline Casts Vancomycin Trough Assessment & Plan (1) CHF (congestive heart failure) Status: Acute (2) Sepsis Status: Acute (3) Encephalopathy acute Status: Acute (4) HTN (hypertension) Status: Acute
[2018-05-26] MEDS: Clindamycin 600mg/50ml D5W 600 MG/50 ML VIAL IVPB SCH ×3 (02:06→16:12)
[2018-05-26] MEDS: Proshield Plus GEL TOP SCH ×3 (02:07→16:13)
[2018-05-26 07:04] LABS: SQUAMOUS EPITHIAL 2 /hpf (0-5); URINE BACTERIA RARE (<OCC); URINE BILIRUBIN NEGATIVE (NEGATIVE); URINE BLOOD NEGATIVE (NEGATIVE); URINE CLARITY CLOUDY (Clear); URINE COLOR YELLOW (YELLOW); URINE GLUCOSE (UA) 50 mg/dL (NEGATIVE); URINE LEUKOCYTE ESTERASE NEG Leu/uL (Negative); URINE PROTEIN 30 mg/dL (NEGATIVE)
[2018-05-26] MEDS: levETIRAcetam 100 mg/ml (5ml) Oral Syringe PO SCH ×2 (09:37→16:12)
[2018-05-26] MEDS: levoFLOXacin 500 mg in D5W 500 MG/100 ML BAG IVPB SCH (09:38)
--- NOTE | 2018-05-26 10:05 | CP.PCM.PN ---
Subjective - Date & Time of Evaluation Date of Evaluation: 05/26/18 Time of Evaluation: 10:05 - Subjective Subjective: ID Note- Patient seen and examined today in ICU. Pt's being suctioned by her nurse currently . she is more awake today but still does not answer any questions. she is on NC currently. Objective - Vital Signs/Intake and Output Vital Signs (last 24 hours): Temp Pulse Resp BP Pulse Ox 98.8 F 105 H 32 H 116/52 L 98 05/26/18 08:00 05/26/18 08:00 05/26/18 08:00 05/26/18 08:00 05/26/18 08:00 Intake and Output: 05/26/18 05/26/18 06:59 18:59 Intake Total 740 Output Total 375 Balance 365 - Medications Medications: Current Medications Albuterol/Ipratropium (Duoneb 3 Mg/0.5 Mg (3 Ml) Ud) 3 ml INH RQ6 PRN PRN Reason: Shortness of Breath Last Admin: 05/24/18 05:53 Dose: 3 ml Dimethicone (Proshield Plus Skin Protectant) 1 applic TOP Q8 BELLE Last Admin: 05/26/18 09:38 Dose: 1 applic Hydromorphone HCl (Dilaudid) 0.5 mg IVP Q4 PRN PRN Reason: Pain, moderate (4-7) Last Admin: 05/25/18 18:03 Dose: 0.5 mg Levofloxacin/Dextrose (Levaquin 500mg) 500 mg in 100 mls @ 100 mls/hr IVPB DAILY BELLE; Protocol Last Admin: 05/26/18 09:38 Dose: 100 mls/hr Clindamycin Phosphate (Cleocin) 600 mg in 50 mls @ 50 mls/hr IVPB Q8 BELLE; Protocol Last Admin: 05/26/18 09:37 Dose: 50 mls/hr Levetiracetam (Keppra) 500 mg PO BID BELLE Last Admin: 05/26/18 09:37 Dose: 500 mg Sodium Hypochlorite (Dakins Solution 0.125%) 1 appl TOP Q12H BELLE Last Admin: 05/26/18 02:08 Dose: 1 appl - Labs Labs: - Additional Findings Additional findings: - Constitutional Appears: Chronically Ill Additional comments: nonverbal, lethargic - Head Exam Head Exam: ATRAUMATIC - ENT Exam Additional comments: dry oral mucosa - Neck Exam Neck exam: Positive for: Full Rom - Respiratory Exam Additional comments: no wheezing decreased breath sounds at right base - Cardiovascular Exam Cardiovascular Exam: RRR, +S1, +S2 - GI/Abdominal Exam GI & Abdominal Exam: Normal Bowel Sounds, Soft Additional comments: NT, ND - Extremities Exam Additional comments: right femur surgical site with steri strips in place clean/dry/Intact no erythema has left great toe small ulcer at the tip , no discharge, no open wound - Neurological Exam Neurological exam: Altered but more awake today - Skin Additional comments: mid sacral stage 4 decub, no discharge mid upper back 2 smaller uleartions one stage 2 with escahr and the superio one stage 1, no opening - Additional Findings Additional findings: has new baeza in place Laboratory Results - last 72 hr 05/20/18 05/24/18 05/24/18 15:40 05:10 05:10 WBC 9.7 RBC 3.53 L Hgb 10.3 L Hct 32.8 L MCV 92.9 MCH 29.2 MCHC 31.4 L RDW 18.3 H Plt Count 99 L D MPV 12.4 H Neut % (Auto) 92.8 H Lymph % (Auto) 4.3 L [place] % (Auto) 2.2 Eos % (Auto) 0.4 Baso % (Auto) 0.3 Neut # (Auto) 9.0 H Lymph # (Auto) 0.4 L [place] # (Auto) 0.2 Eos # (Auto) 0.0 Baso # (Auto) 0.0 Neutrophils % (Manual) 89 H Lymphocytes % (Manual) 6 L Monocytes % (Manual) 4 Eosinophils % (Manual) 1 Platelet Estimate Decreased L Large Platelets Present Giant Platelets Present Hypochromasia (manual) Slight Anisocytosis (manual) Slight Target Cells Slight Tear Drop Cells Ovalocytes pCO2 pO2 HCO3 ABG pH ABG Total CO2 ABG O2 Saturation ABG O2 Content ABG Base Excess ABG Hemoglobin ABG Carboxyhemoglobin POC ABG HHb (Measured) ABG Methemoglobin ABG O2 Capacity Oswaldo Test ABG Potassium A-a O2 Difference Hgb O2 Saturation Glucose Lactate Vent Mode FiO2 Blood Gas Comments Crit Value Called To Crit Value Called By Crit Value Read Back Blood Gas Notified Time Sodium 153 H Potassium 3.8 Chloride 122 H Carbon Dioxide 27 Anion Gap 8 L BUN 15 Creatinine 0.3 L Est GFR ( Amer) > 60 Est GFR (Non-Af Amer) > 60 Random Glucose 248 H Calcium 8.4 Troponin I NT-Pro-B Natriuret Pep Arterial Blood Potassium Urine Color Urine Clarity Urine pH Ur Specific [place] Urine Protein Urine Glucose (UA) Urine Ketones Urine Blood Urine Nitrate Urine Bilirubin Urine Urobilinogen Ur Leukocyte Esterase Urine RBC (Auto) Urine Microscopic WBC Ur Squamous Epith Cells Urine Bacteria Hyaline Casts Vancomycin Trough Lamotrigine 0.6 mcg/ml l 05/24/18 05/25/18 05/25/18 06:35 04:25 04:25 WBC 10.4 RBC 3.38 L Hgb 9.7 L Hct 30.5 L MCV 90.1 D MCH 28.7 MCHC 31.8 L RDW 17.5 H Plt Count 101 L MPV 12.5 H Neut % (Auto) 93.8 H Lymph % (Auto) 2.6 L [place] % (Auto) 3.3 Eos % (Auto) 0.1 Baso % (Auto) 0.2 Neut # (Auto) 9.8 H Lymph # (Auto) 0.3 L [place] # (Auto) 0.3 Eos # (Auto) 0.0 Baso # (Auto) 0.0 Neutrophils % (Manual) 91 H Lymphocytes % (Manual) 4 L Monocytes % (Manual) 5 Eosinophils % (Manual) Platelet Estimate Decreased L Large Platelets Present Giant Platelets Hypochromasia (manual) Slight Anisocytosis (manual) Slight Target Cells Tear Drop Cells Slight Ovalocytes Slight pCO2 36 pO2 63 L HCO3 27.9 ABG pH 7.49 H ABG Total CO2 28.5 H ABG O2 Saturation 96.4 ABG O2 Content 13.2 L ABG Base Excess 3.9 H ABG Hemoglobin 10.0 L ABG Carboxyhemoglobin 1.3 POC ABG HHb (Measured) 3.5 ABG Methemoglobin 1.4 ABG O2 Capacity 13.7 L Oswaldo Test Yes ABG Potassium A-a O2 Difference 605.0 Hgb O2 Saturation 93.8 L Glucose Lactate Vent Mode FiO2 100.0 Blood Gas Comments Crit Value Called To Crit Value Called By Crit Value Read Back Blood Gas Notified Time Sodium 146 Potassium 2.3 L* D Chloride 110 H Carbon Dioxide 31 H Anion Gap 7 L BUN 8 Creatinine 0.3 L Est GFR ( Amer) > 60 Est GFR (Non-Af Amer) > 60 Random Glucose 234 H Calcium 7.8 L Troponin I NT-Pro-B Natriuret Pep Arterial Blood Potassium Urine Color Urine Clarity Urine pH Ur Specific [place] Urine Protein Urine Glucose (UA) Urine Ketones Urine Blood Urine Nitrate Urine Bilirubin Urine Urobilinogen Ur Leukocyte Esterase Urine RBC (Auto) Urine Microscopic WBC Ur Squamous Epith Cells Urine Bacteria Hyaline Casts Vancomycin Trough Lamotrigine 05/25/18 05/26/18 05/26/18 21:00 05:25 05:25 WBC RBC Hgb Hct MCV MCH MCHC RDW Plt Count MPV Neut % (Auto) Lymph % (Auto) [place] % (Auto) Eos % (Auto) Baso % (Auto) Neut # (Auto) Lymph # (Auto) [place] # (Auto) Eos # (Auto) Baso # (Auto) Neutrophils % (Manual) Lymphocytes % (Manual) Monocytes % (Manual) Eosinophils % (Manual) Platelet Estimate Large Platelets Giant Platelets Hypochromasia (manual) Anisocytosis (manual) Target Cells Tear Drop Cells Ovalocytes pCO2 pO2 HCO3 ABG pH ABG Total CO2 ABG O2 Saturation ABG O2 Content ABG Base Excess ABG Hemoglobin ABG Carboxyhemoglobin POC ABG HHb (Measured) ABG Methemoglobin ABG O2 Capacity [place] Test ABG Potassium A-a O2 Difference Hgb O2 Saturation Glucose Lactate Vent Mode FiO2 Blood Gas Comments Crit Value Called To Crit Value Called By Crit Value Read Back Blood Gas Notified Time Sodium Potassium Chloride Carbon Dioxide Anion Gap BUN Creatinine Est GFR ( Amer) Est GFR (Non-Af Amer) Random Glucose Calcium Troponin I < 0.0120 NT-Pro-B Natriuret Pep 770 Arterial Blood Potassium Urine Color Urine Clarity Urine pH Ur Specific [place] Urine Protein Urine Glucose (UA) Urine Ketones Urine Blood Urine Nitrate Urine Bilirubin Urine Urobilinogen Ur Leukocyte Esterase Urine RBC (Auto) Urine Microscopic WBC Ur Squamous Epith Cells Urine Bacteria Hyaline Casts Vancomycin Trough 8.2 Lamotrigine 05/26/18 05/26/18 06:30 10:36 WBC RBC Hgb Hct MCV MCH MCHC RDW Plt Count MPV Neut % (Auto) Lymph % (Auto) [place] % (Auto) Eos % (Auto) Baso % (Auto) Neut # (Auto) Lymph # (Auto) [place] # (Auto) Eos # (Auto) Baso # (Auto) Neutrophils % (Manual) Lymphocytes % (Manual) Monocytes % (Manual) Eosinophils % (Manual) Platelet Estimate Large Platelets Giant Platelets Hypochromasia (manual) Anisocytosis (manual) Target Cells Tear Drop Cells Ovalocytes pCO2 47 H pO2 65 L HCO3 34.4 H ABG pH 7.50 H ABG Total CO2 38.1 H ABG O2 Saturation 98.9 H ABG O2 Content ABG Base Excess 12.2 H ABG Hemoglobin ABG Carboxyhemoglobin POC ABG HHb (Measured) ABG Methemoglobin ABG O2 Capacity [place] Test Yes ABG Potassium 2.4 L* A-a O2 Difference 161.0 Hgb O2 Saturation Glucose 201 H Lactate 1.6 Vent Mode Nc FiO2 40.0 Blood Gas Comments Nc 5 Crit Value Called To Dr. debbi mina m.d Crit Value Called By Maxine Crit Value Read Back Y Blood Gas Notified Time 1049 Sodium 141.0 Potassium Chloride 107.0 Carbon Dioxide Anion Gap BUN Creatinine Est GFR ( Amer) Est GFR (Non-Af Amer) Random Glucose Calcium Troponin I NT-Pro-B Natriuret Pep Arterial Blood Potassium 2.4 L* Urine Color Yellow Urine Clarity Cloudy Urine pH 5.0 Ur Specific [place] 1.019 Urine Protein 30 Urine Glucose (UA) 50 Urine Ketones Negative Urine Blood Negative Urine Nitrate Negative Urine Bilirubin Negative Urine Urobilinogen 2.0 H Ur Leukocyte Esterase Neg Urine RBC (Auto) 6 H Urine Microscopic WBC 15 H Ur Squamous Epith Cells 2 Urine Bacteria Rare Hyaline Casts 3-5 H Vancomycin Trough Lamotrigine Microbiology 05/21/18 09:10 Blood-Venous Blood Culture - Final NO GROWTH AFTER 5 DAYS 05/21/18 09:10 Blood-Venous Gram Stain - Final TEST NOT PERFORMED 05/20/18 13:00 Blood Blood Culture - Final NO GROWTH AFTER 5 DAYS 05/20/18 13:00 Blood Gram Stain - Final TEST NOT PERFORMED 05/20/18 17:43 Nose MRSA Culture (Admit) - Final MRSA NOT DETECTED 05/20/18 13:34 Urine,Baeza Urine Culture - Final Enterococcus Faecalis Assessment and Plan (1) Altered mental status Status: Acute (2) Decubitus ulcer of sacral area Status: Acute (3) Deep tissue injury Status: Acute (4) Hx of fracture of femur Status: Chronic (5) Seizure disorder Status: Chronic - Assessment and Plan (Free Text) Assessment: A/P 83 year old female with multiple medical conditions icnluding CAD, Dementia, COPD, recent right femur ORIF admitted form [place] for AMS and fever. pt. has been afebrile since admission. mild leukocytosis has resolved. UA- negative, urine cx- E.fecalis ( could eb contaminant ) since the UA from same day negative. repeat UA from [facility] 05/26/2018- Negative Blood cx- neg x 2 CXR as per report ? right basilar infiltrate , could be secondary to aspiration. right femur Orif site looks clean and dry. PLan- check sputum cx. advise to cover with empiric vanco for the deep sacral decub . keep trough <15. wound consult f/u recommendations. advise to monitor aspiration precautions as well. agree with clindamycin to cover for ? aspiration pneumonia. day #2 agree with levaquin as well that was already started by the admitting doc. advise podiatry eval of the left great toe ulceration. All labs and imaging and pertinent chart notes reviewed. Critical care time 45 minutes. all above d/w Shirt Marker .
[2018-05-26 10:49] LABS: ABG ALLEN TEST YES; ARTERIAL BLOOD GAS HCO3 34.4 mmol/L (21-28); ARTERIAL BLOOD GAS O2 SAT 98.9 % (95-98); ARTERIAL BLOOD GAS PCO2 47 mm/Hg (35-45); ARTERIAL BLOOD GAS PO2 65 mm/Hg (80-100); ARTERIAL BLOOD GAS TCO2 38.1 mmol/L (22-28)
[2018-05-26] MEDS ORDERED: Potassium Chloride 20 mEq/15 ml LIQ UD NG ONE (10:52)
--- NOTE | 2018-05-26 11:24 | CP.CCUPN ---
CCU Subjective - Physician Review Subjective (Free Text): Neuromental status unchanged: Eyes closed, not responsive nor follows any verbal commands or cues, intermittently opens eyes and moaning, switched to NC this AM with 99% SPO2, but tachypneic up to 33/min. NGT with ongoing tube feeds. Other vitals and I/O's reviewed. Afebrile, no fever spikes, SBP 120s, HR 100, tachypneic with RR 30. Fluid balance positive 1.6L last 24H. Urine output lower, approx. 200ml last 24H ROS: No other pertinent negs or positives on 10+ system review obtainable, nonverbal. PMSFH: All other Nursing and physician documentation reviewed to date; no new pertinent info noted relevant to current medical problems. EXAM- HEENT: no icterus, R gaze preference, pupils 3 mm bilat and reactive. NECK: No JVD visible, supple, carotids equal upstroke bilat/no bruit CHEST: decreased BS at the bases, no wheezes audible HEART: regular, distant, tachy S1S2, no rubs or murmurs noted ABD: softly and nontender, no guarding, no organomegaly, BS hypoactive. EXT: + LE edema, no calf tenderness or palpable cords, distal pulses intact and symmetrical. Mod size sacral decub stage 4, thoracic DTI. NEURO: withdraws arms to pain, + tone in all extremities. SKIN: no rashes, warm and dry LABS: yesterday WBC= 10.4 HGB= 9.7 PLTs= 101K Na= 146 K= 2.3 CL= 110 HCO3= 31 BUN/Cr= 8/0.3 BS= 234 IMPRESSION / MAJOR PROBLEMS NOW: 1. AMS, r/o NCSE, vs other occult seizure activity, metabolic Encephalopathy, possible Sepsis Encephalopathy; h/o Dementia 2. Acute resp insuff 2 bilateral Pneumonia, r/o Aspiration 3. h/o ORIF R Hip; L Femoral fracture repair 4. Chronic Disease Anemia 5. New Thrombocytopenia this Admission, h/o of Low Platelets; r/o Drug effect, DIC PLAN: 1. f/u K levels, and Na. Off hypotonic fluids, and recd over 120meq of K yesterday. No arrthymias noted. 2. Ongoing Clinda/ Levaquin / Vanco. 3. Lasix prn. 4. Nasal cannula as tolerated. Too lethargic for BiPAP support, if hypoxemia worsens will need MV support. Full Code and resuscitation measures as per son. Check ABG / CXR.
[2018-05-26] MEDS: Potassium CL 10mEq/100ml 100 ML IVPB SCH ×6 (12:05→18:24)
--- NOTE | 2018-05-26 12:22 | CP.PCM.PN ---
Subjective - Date & Time of Evaluation Date of Evaluation: 05/26/18 Time of Evaluation: 12:21 - Subjective Subjective: Neurology Follow-Up Note: Mrs. Laureano was evaluated this morning at bedside in the ICU. Pt remains nonverbal and unable to answer questions or follow commands. Chart reviewed. ROS unobtainable from pt 2/2 her current condition. Objective - Vital Signs/Intake and Output Vital Signs (last 24 hours): Temp Pulse Resp BP Pulse Ox 98.4 F 109 H 27 H 123/60 96 05/26/18 12:00 05/26/18 12:00 05/26/18 12:00 05/26/18 12:00 05/26/18 12:00 Intake and Output: 05/26/18 05/26/18 06:59 18:59 Intake Total 740 720 Output Total 375 300 Balance 365 420 - Medications Medications: Current Medications Albuterol/Ipratropium (Duoneb 3 Mg/0.5 Mg (3 Ml) Ud) 3 ml INH RQ6 PRN PRN Reason: Shortness of Breath Last Admin: 05/24/18 05:53 Dose: 3 ml Dimethicone (Proshield Plus Skin Protectant) 1 applic TOP Q8 BELLE Last Admin: 05/26/18 09:38 Dose: 1 applic Hydromorphone HCl (Dilaudid) 0.5 mg IVP Q4 PRN PRN Reason: Pain, moderate (4-7) Last Admin: 05/25/18 18:03 Dose: 0.5 mg Levofloxacin/Dextrose (Levaquin 500mg) 500 mg in 100 mls @ 100 mls/hr IVPB DAILY BELLE; Protocol Last Admin: 05/26/18 09:38 Dose: 100 mls/hr Clindamycin Phosphate (Cleocin) 600 mg in 50 mls @ 50 mls/hr IVPB Q8 BELLE; Protocol Last Admin: 05/26/18 09:37 Dose: 50 mls/hr Potassium Chloride (Potassium Chloride 10 Meq/100 Ml) 100 mls @ 100 mls/hr IVPB Q1 BELLE Stop: 05/26/18 16:59 Last Admin: 05/26/18 12:05 Dose: 100 mls/hr Levetiracetam (Keppra) 500 mg PO BID BELLE Last Admin: 05/26/18 09:37 Dose: 500 mg Sodium Hypochlorite (Dakins Solution 0.125%) 1 appl TOP Q12H BELLE Last Admin: 05/26/18 02:08 Dose: 1 appl - Labs Labs: 05/25/18 04:25 05/25/18 04:25 PT 20.0 Seconds (9.8-13.1) H 05/20/18 13:00 INR 1.8 05/20/18 13:00 APTT 30.8 Seconds (25.6-37.1) 05/20/18 13:00 - Constitutional Appears: Other (moans during exam; nonverbal) - Head Exam Head Exam: NORMAL INSPECTION, NORMOCEPHALIC - Eye Exam Eye Exam: Normal appearance, PERRL. absent: Nystagmus Pupil Exam: NORMAL ACCOMODATION, PERRL Additional comments: opens eyes spontaneously - ENT Exam ENT Exam: Mucous Membranes Moist - Neck Exam Neck Exam: Normal Inspection - Respiratory Exam Respiratory Exam: absent: NORMAL BREATHING PATTERN Additional comments: tachypneic - Cardiovascular Exam Cardiovascular Exam: Tachycardia (hr 103) - GI/Abdominal Exam GI & Abdominal Exam: Soft Additional comments: ngt - Exam Additional comments: baeza cath in place - Extremities Exam Extremities Exam: absent: Calf Tenderness, Full ROM, Pedal Edema Additional comments: edema noted to hands moves arms to sternal rub, not legs +resistance and tone noted to BUE - Neurological Exam Neurological Exam: Altered. absent: Alert, Awake Additional comments: Pt remains nonverbal, moans during exam. She is still lethargic today but arousable to sternal rub (grimaces and opens eyes). Unable to follow commands. BUE +resistance and tone noted; BUE fall immediately to bed when raised, no resistance noted. No tremors noted. Toes down-going b/l. Unable to assess sensation 2/2 pt nonverbal and not following commands. - Psychiatric Exam Psychiatric exam: absent: Normal Affect, Normal Mood (nonverbal) - Skin Skin Exam: Normal Color Assessment and Plan (1) Toxic metabolic encephalopathy Assessment & Plan: Imaging reviewed: -EEG (05/22/18): This is an abnormal EEG record that demonstrate the presence of a mild to moderate non specific diffuse disturbance of cortical activity, this is in keeping with a diffuse way matter dysfunction. These findings do not support a specific etiology. 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 No seizures were captured. -CT head (05/20/18): No acute intracranial pathology. Age-related changes. Mild sphenoid sinus disease. No significant interval change. -Likely 2/2 to infection and electrolyte imbalance -Continue current treatment and management of infectious process and electrolyte imbalance. -Lamotrigine level resulted and noted to be low based on the levels provide by the lab (0.6 mcg/ml, see result) -Continue Keppra as ordered as the pt seems to be tolerating. -Notify neuro team of any acute changes in pt's condition. Case discussed with Dr. Rizvi Status: Acute
--- NOTE | 2018-05-26 12:55 | RAD ---
Date of service: 05/26/2018 HISTORY: distention COMPARISON: Abdominal radiographs dated 05/16/2017. FINDINGS: BOWEL: Gaseous distension. No free air. BONES: Multilevel degenerative changes. Prior vertebral augmentation of L3. Partially imaged left femoral intramedullary berto and screw. OTHER FINDINGS: Partially imaged enteric tube with tip in the stomach IMPRESSION: Nonspecific bowel gas pattern with gaseous distention.
--- NOTE | 2018-05-26 13:36 | RAD ---
Date of service: 05/26/2018 HISTORY: hypoxemia / Tachypnea COMPARISON: Chest radiograph dated 05/24/2018. FINDINGS: LUNGS: Pulmonary vascular congestion. Right basilar infiltrate. Left basilar atelectasis. PLEURA: Small bilateral pleural effusions not excluded. No appreciable pneumothorax. CARDIOVASCULAR: Aortic atherosclerotic calcifications. Cardiomediastinal silhouette stably enlarged. OSSEOUS STRUCTURES: L3 vertebral augmentation. Unchanged. VISUALIZED UPPER ABDOMEN: Right upper quadrant surgical clips OTHER FINDINGS: Enteric tube, unchanged IMPRESSION: Pulmonary vascular congestion. Right basilar infiltrate. Small bilateral pleural effusions not excluded.
--- NOTE | 2018-05-26 15:13 | PQF ---
PROVIDER RESPONSE TEXT: Chronic Diastolic CHF REVIEWER QUERY TEXT: Heart Failure Acuity and Type Congestive Heart Failure is documented in the Medical Record. Please document the type and acuity (in cludes probable or suspected) Such as: Type: -- Combined systolic and diastolic (heart failure with reduced ejection fraction and diastolic) dysfu nction -- Diastolic (HFpEF) -- Systolic (HFrEF) -- Left heart failure -- Right heart failure -- Right heart failure due to left heart failure -- High output failure -- End stage heart failure -- Other, please specify Acuity: -- Acute -- Chronic -- Acute on chronic -- Other, please specify Also please document the underlying cause of the CHF (includes probable or suspected) The patient's Clinical Indicators include: Documentation of a history of CHF status Chronic. ECHO from 04/12/18: EF 60-65%, Grade I abnormal relaxation pattern. Query created by: Meagan Gurrola on 05/23/2018 11:18 AM Electronically signed by: Sj Lara MD 05/26/2018 3:09 PM
--- NOTE | 2018-05-26 15:13 | PQF ---
PROVIDER RESPONSE TEXT: Aspiration Pneumonia REVIEWER QUERY TEXT: Clarification of Clinical Diagnostic Findings Please clarify documentation or clinical relevance for the clinical / diagnostic findings or whether those are insignificant or unable to be further specified. Please clarify if there is an associated diagnosis or not to go along with the recent CXR findings CXR on admission: No active disease CXR on 05/24/18: Pulmonary vascular congestion. Right basilar infiltrate ID: Etiology of fever on admission could be multifactorial aspiration pneumonia vs decubitus ulcers v s viral etiology The patient's Clinical Indicators include: CXR on admission: No active disease CXR on 05/24/18: Pulmonary vascular congestion. Right basilar infiltrate ID: Etiology of fever on admission could be multifactorial aspiration pneumonia vs decubitus ulcers v s viral etiology IVAB: Clindamycin, Levaquin Query created by: Meagan Gurrola on 05/26/2018 1:06 PM Electronically signed by: Sj Lara MD 05/26/2018 3:09 PM
--- NOTE | 2018-05-26 15:13 | PQF ---
PROVIDER RESPONSE TEXT: Stage 4 Sacral Decubitus, DTI Thorasic Spine, R Heel DTI pressure ulcer, Rt Calf DTI pressure ulcer, Lt Heel eschar-unstageable pressure ulcer REVIEWER QUERY TEXT: Pressure Ulcer Type The Wound RN has additional pressure ulcers documented in the EMR. Please document the other sites if you are in agreement: 1) R heel DTI pressure ulcer 2) R calf DTI pressure ulcer 3) L heel eschar-- unstageable pressure ulcer Pressure ulcer is documented in the Medical Record. Please specify the location, present on admission status and/or stage: Location and laterality of pressure ulcer(s): POA status of each pressure ulcer: -- Not present on admission -- Present on admission -- Other -- Clinically unable to determine -- Unknown Stage of each pressure ulcer (National Pressure Ulcer Advisory Panel definitions): -- Stage I: Intact skin with non-blanchable redness of a localized area -- Stage II: Partial thickness skin loss involving dermis with a shallow open ulcer or an open serum -filled blister -- Stage III: Full thickness skin loss involving damage or necrosis of subcutaneous tissue -- Stage IV: Full thickness skin loss with exposed bone, tendon or muscle -- Unstageable: Full thickness tissue loss in which the base of the ulcer is covered by slough and/o r eschar in the wound bed The patient's Clinical Indicators include: Admitting RN: Upper back DTI, Sacrum Deep open wound, Right and Left heel DTI. See paper plate machine tender for recommendations Query created by: Meagan Gurrola on 05/23/2018 11:15 AM Electronically signed by: Sj Lara MD 05/26/2018 3:09 PM
[2018-05-26 15:18] LABS: BLOOD UREA NITROGEN 8 mg/dl (7-17); CALCIUM 7.6 mg/dL (8.4-10.2); GFR NON-AFRICAN AMERICAN > 60
--- NOTE | 2018-05-26 17:01 | CP.PCM.PN ---
Subjective - Date & Time of Evaluation Date of Evaluation: 05/26/18 Time of Evaluation: 13:50 - Subjective Subjective: F/U AMS. Pt in NR-mask 100%, minimal response to tactile stimuli. Objective - Vital Signs/Intake and Output Vital Signs (last 24 hours): Temp Pulse Resp BP Pulse Ox 99.7 F H 93 H 30 H 112/51 L 100 05/26/18 16:00 05/26/18 16:00 05/26/18 14:00 05/26/18 16:00 05/26/18 16:00 Intake and Output: 05/26/18 05/26/18 06:59 18:59 Intake Total 740 1230 Output Total 375 500 Balance 365 730 - Medications Medications: Current Medications Albuterol/Ipratropium (Duoneb 3 Mg/0.5 Mg (3 Ml) Ud) 3 ml INH RQ6 PRN PRN Reason: Shortness of Breath Last Admin: 05/24/18 05:53 Dose: 3 ml Dimethicone (Proshield Plus Skin Protectant) 1 applic TOP Q8 BELLE Last Admin: 05/26/18 16:13 Dose: 1 applic Hydromorphone HCl (Dilaudid) 0.5 mg IVP Q4 PRN PRN Reason: Pain, moderate (4-7) Last Admin: 05/25/18 18:03 Dose: 0.5 mg Levofloxacin/Dextrose (Levaquin 500mg) 500 mg in 100 mls @ 100 mls/hr IVPB DAILY BELLE; Protocol Last Admin: 05/26/18 09:38 Dose: 100 mls/hr Clindamycin Phosphate (Cleocin) 600 mg in 50 mls @ 50 mls/hr IVPB Q8 BELLE; Protocol Last Admin: 05/26/18 16:12 Dose: 50 mls/hr Vancomycin HCl 500 mg/ Sodium (Chloride) 100 mls @ 100 mls/hr IVPB Q12 BELLE; Protocol Levetiracetam (Keppra) 500 mg PO BID BELLE Last Admin: 05/26/18 16:12 Dose: 500 mg Sodium Hypochlorite (Dakins Solution 0.125%) 1 appl TOP Q12H BELLE Last Admin: 05/26/18 16:10 Dose: 1 appl - Labs Labs: 05/25/18 04:25 05/26/18 14:56 PT 20.0 Seconds (9.8-13.1) H 05/20/18 13:00 INR 1.8 05/20/18 13:00 APTT 30.8 Seconds (25.6-37.1) 05/20/18 13:00 - Constitutional Appears: No Acute Distress, Chronically Ill - Head Exam Head Exam: NORMAL INSPECTION - Eye Exam Eye Exam: PERRL - ENT Exam ENT Exam: Normal Exam - Neck Exam Neck Exam: Normal Inspection - Respiratory Exam Respiratory Exam: Decreased Breath Sounds (at bases ) - Cardiovascular Exam Cardiovascular Exam: REGULAR RHYTHM - GI/Abdominal Exam GI & Abdominal Exam: Soft, Normal Bowel Sounds Additional comments: NGT - Exam Additional comments: De La Cruz in place - Extremities Exam Additional comments: R knee/Femur in immobilizer. DTI R elbow and L heel - Back Exam Additional comments: Sacral decubitus ulcer stage IV. Upper back DTI - Neurological Exam Additional comments: No response to tactile stimuli, mumbling sounds, unable to follows commands, generalized weakness. - Skin Skin Exam: Warm Assessment and Plan (1) CHF (congestive heart failure) Status: Acute (2) Aspiration pneumonia Status: Acute (3) Altered mental status Status: Acute (4) Toxic metabolic encephalopathy Status: Acute (5) Sepsis Status: Acute (6) UTI (urinary tract infection) Status: Acute (7) Dehydration Status: Resolved (8) Hypernatremia Status: Resolved (9) Decubitus ulcer of sacral area Status: Acute (10) Deep tissue injury Status: Acute (11) Chronic back pain Status: Chronic (12) Hx of fracture of femur Status: Chronic (13) HTN (hypertension) Status: Acute (14) COPD (chronic obstructive pulmonary disease) Status: Chronic (15) Hx of congestive heart failure Status: Chronic (16) Seizure disorder Status: Chronic - Assessment and Plan (Free Text) Plan: Continue NR-Mask 100%, continue Clindamycin, Levaquin, Vanco, Keppra and rest of Tx. Critical care time: 34 min.
--- NOTE | 2018-05-26 22:27 | CP.PCM.PN ---
Subjective - Date & Time of Evaluation Date of Evaluation: 05/26/18 Time of Evaluation: 11:00 - Subjective Subjective: pt confused and delerious Objective - Vital Signs/Intake and Output Vital Signs (last 24 hours): Temp Pulse Resp BP Pulse Ox 99.6 F 97 H 32 H 107/52 L 100 05/26/18 20:00 05/26/18 20:00 05/26/18 20:00 05/26/18 20:00 05/26/18 20:00 Intake and Output: 05/26/18 05/27/18 18:59 06:59 Intake Total 1410 230 Output Total 600 Balance 810 230 - Medications Medications: Current Medications Albuterol/Ipratropium (Duoneb 3 Mg/0.5 Mg (3 Ml) Ud) 3 ml INH RQ6 PRN PRN Reason: Shortness of Breath Last Admin: 05/24/18 05:53 Dose: 3 ml Dimethicone (Proshield Plus Skin Protectant) 1 applic TOP Q8 BELLE Last Admin: 05/26/18 16:13 Dose: 1 applic Hydromorphone HCl (Dilaudid) 0.5 mg IVP Q4 PRN PRN Reason: Pain, moderate (4-7) Last Admin: 05/25/18 18:03 Dose: 0.5 mg Levofloxacin/Dextrose (Levaquin 500mg) 500 mg in 100 mls @ 100 mls/hr IVPB DAILY BELLE; Protocol Last Admin: 05/26/18 09:38 Dose: 100 mls/hr Clindamycin Phosphate (Cleocin) 600 mg in 50 mls @ 50 mls/hr IVPB Q8 BELLE; Protocol Last Admin: 05/26/18 16:12 Dose: 50 mls/hr Vancomycin HCl 500 mg/ Sodium (Chloride) 100 mls @ 100 mls/hr IVPB Q12 BELLE; Protocol Last Admin: 05/26/18 20:13 Dose: 100 mls/hr Levetiracetam (Keppra) 500 mg PO BID BELLE Last Admin: 05/26/18 16:12 Dose: 500 mg Sodium Hypochlorite (Dakins Solution 0.125%) 1 appl TOP Q12H BELLE Last Admin: 05/26/18 16:10 Dose: 1 appl - Labs Labs: 05/25/18 04:25 05/26/18 14:56 PT 20.0 Seconds (9.8-13.1) H 05/20/18 13:00 INR 1.8 05/20/18 13:00 APTT 30.8 Seconds (25.6-37.1) 05/20/18 13:00 - Constitutional Appears: Confused, Chronically Ill - Eye Exam Pupil Exam: Miosis - ENT Exam ENT Exam: Mucous Membranes Dry - Respiratory Exam Respiratory Exam: Rales, Rhonchi, Wheezes - Cardiovascular Exam Cardiovascular Exam: Tachycardia, +S1, +S2, Murmur - GI/Abdominal Exam GI & Abdominal Exam: Soft - Neurological Exam Neurological Exam: Altered Assessment and Plan (1) CHF (congestive heart failure) Status: Acute (2) Sepsis Status: Acute (3) Encephalopathy acute Status: Acute (4) HTN (hypertension) Status: Acute
[2018-05-27] MEDS: Clindamycin 600mg/50ml D5W 600 MG/50 ML VIAL IVPB SCH ×3 (01:30→16:16)
[2018-05-27] MEDS: Proshield Plus GEL TOP SCH ×3 (03:25→16:17)
[2018-05-27 06:18] LABS: BLOOD UREA NITROGEN 9 mg/dl (7-17); CALCIUM 7.4 mg/dL (8.4-10.2); GFR NON-AFRICAN AMERICAN > 60
[2018-05-27 07:01] LABS: HEMOGLOBIN 8.7 g/dL (12.0-16.0); MEAN CELL VOLUME 90.2 fl (81.0-99.0); MEAN CORPUSCULAR HEMOGLOBIN 28.8 pg (27.0-31.0); RBC 3.01 Mil/uL (3.80-5.20); WHITE BLOOD COUNT 6.9 K/uL (4.8-10.8)
[2018-05-27] MEDS: levETIRAcetam 100 mg/ml (5ml) Oral Syringe PO SCH ×2 (08:31→16:16)
[2018-05-27] MEDS: levoFLOXacin 500 mg in D5W 500 MG/100 ML BAG IVPB SCH (09:02)
--- NOTE | 2018-05-27 09:45 | CP.CCUPN ---
CCU Subjective - Physician Review Events Since Last Encounter (Free Text): 05/27/18 09:43 on ventimask oxygen , saturation 100%, pt non-verbal, eyes closed and non- communicating, nurse told me she has been like this for many days CCU Objective - Vital Signs / Intake & Output Vital Signs (Last 4 hours): Vital Signs Temp Pulse Resp BP Pulse Ox 05/27/18 08:00 98.4 F 87 26 H 114/46 L 100 05/27/18 06:00 91 H 27 H 118/50 L 100 Intake and Output (Last 8hrs): Intake & Output 05/26/18 05/27/18 05/27/18 22:59 06:59 14:59 Intake Total 740 430 40 Output Total 200 Balance 540 430 40 Intake: Intake, Piggyback 250 Tube Feeding 240 280 40 Free Water Flush 250 150 Output: Urine 200 Urethral (De La Cruz) 200 - Physical Exam Narrative Physical Exam (Free Text): 05/27/18 09:44 P/E Neck; No JVD Lungs Rt basal crackles Abdomen: soft, non-tender Ext: NO edema heart: No gallop Head: Positive for: Atraumatic, Normocephalic Pupils: Positive for: PERRL Conjunctiva: Positive for: Normal Mouth: Positive for: Dry Nose (External): Positive for: Atraumatic Neck: Positive for: Normal Range of Motion. Negative for: MIDLINE TENDERNESS, JVD Respiratory/Chest: Positive for: Rhonchi. Negative for: Respiratory Distress, Accessory Muscle Use, Wheezes Cardiovascular: Positive for: Regular Rate and Rhythm, Normal S1, S2, Peripheal Pulses Present. Negative for: Tachycardic Abdomen: Positive for: Normal Bowel Sounds Upper Extremity: Positive for: Normal Inspection, NORMAL PULSES. Negative for: Edema Lower Extremity: Positive for: Normal Inspection, NORMAL PULSES. Negative for: CALF TENDERNESS Neurological: Positive for: Other (no response to verbal stimuli) Psychiatric: Positive for: Alert. Negative for: Oriented x 3 - Medications Active Medications: Active Medications Generic Name Dose Route Start Last Admin Trade Name Freq PRN Reason Stop Dose Admin Albuterol/Ipratropium 3 ml 05/23/18 22:42 05/24/18 05:53 Duoneb 3 Mg/0.5 Mg (3 Ml) Ud INH 3 ml RQ6 PRN Administration Shortness of Breath Dimethicone 1 applic 01/23/19 01:00 05/27/18 08:31 Proshield Plus Skin Protectant TOP 1 applic Q8 BELLE Administration Hydromorphone HCl 0.5 mg 05/24/18 15:00 05/25/18 18:03 Dilaudid IVP 0.5 mg Q4 PRN Administration Pain, moderate (4-7) Levofloxacin/Dextrose 500 mg in 100 mls @ 100 mls/hr 05/24/18 09:00 05/27/18 09:02 Levaquin 500mg IVPB 100 mls/hr DAILY BELLE Administration Protocol Clindamycin Phosphate 600 mg in 50 mls @ 50 mls/hr 05/25/18 17:00 05/27/18 08:29 Cleocin IVPB 50 mls/hr Q8 BELLE Administration Protocol Vancomycin HCl 500 mg/ Sodium 100 mls @ 100 mls/hr 05/26/18 21:00 05/27/18 09:41 Chloride IVPB 100 mls/hr Q12 BELLE Administration Protocol Levetiracetam 500 mg 05/22/18 17:00 05/27/18 08:31 Keppra PO 500 mg BID BELLE Administration Sodium Hypochlorite 1 appl 05/22/18 14:30 05/27/18 03:24 Dakins Solution 0.125% TOP 1 appl Q12H BELLE Administration - Patient Studies Lab Studies: Microbiology Studies 05/25/18 16:35 Blood Culture - Preliminary Blood-Venous NO GROWTH AFTER 24 HOURS 05/25/18 16:25 Blood Culture - Preliminary Blood-Venous NO GROWTH AFTER 24 HOURS 05/21/18 09:10 Blood Culture - Final Blood-Venous NO GROWTH AFTER 5 DAYS Gram Stain - Final TEST NOT PERFORMED Lab Studies 05/27/18 05/27/18 05/26/18 Range/Units 04:30 04:30 14:56 WBC 6.9 (4.8-10.8) K/uL RBC 3.01 L (3.80-5.20) Mil/uL Hgb 8.7 L (12.0-16.0) g/dL Hct 27.1 L (34.0-47.0) % MCV 90.2 (81.0-99.0) fl MCH 28.8 (27.0-31.0) pg MCHC 32.0 L (33.0-37.0) g/dL RDW 17.0 H (11.5-14.5) % Plt Count 101 L (130-400) K/uL pCO2 (35-45) mm/Hg pO2 (80-100) mm/Hg HCO3 (21-28) mmol/L ABG pH (7.35-7.45) ABG Total CO2 (22-28) mmol/L ABG O2 Saturation (95-98) % ABG Base Excess (-2.0-3.0) mmol/L Oswaldo Test ABG Potassium (3.6-5.2) mmol/L A-a O2 Difference mm/Hg Sodium 136 140 (132-148) mmol/L Chloride 100 102 (98-107) mmol/L Glucose (65-105) mg/dL Lactate (0.7-2.1) mmol/L Vent Mode FiO2 % Blood Gas Comments Crit Value Called To Crit Value Called By Crit Value Read Back Blood Gas Notified Time Potassium 4.3 4.1 (3.6-5.0) MMOL/L Carbon Dioxide 31 H 36 H (22-30) mmol/L Anion Gap 9 L 6 L (10-20) BUN 9 8 (7-17) mg/dl Creatinine 0.2 L 0.3 L (0.7-1.2) mg/dl Est GFR ( Amer) > 60 > 60 Est GFR (Non-Af Amer) > 60 > 60 Random Glucose 225 H 148 H (65-105) mg/dL Calcium 7.4 L 7.6 L (8.4-10.2) mg/dL Phosphorus 2.4 L (2.5-4.5) mg/dl Magnesium 1.9 (1.6-2.3) MG/DL Arterial Blood Potassium (3.6-5.2) mmol/L 05/26/18 Range/Units 10:36 WBC (4.8-10.8) K/uL RBC (3.80-5.20) Mil/uL Hgb (12.0-16.0) g/dL Hct (34.0-47.0) % MCV (81.0-99.0) fl MCH (27.0-31.0) pg MCHC (33.0-37.0) g/dL RDW (11.5-14.5) % Plt Count (130-400) K/uL pCO2 47 H (35-45) mm/Hg pO2 65 L (80-100) mm/Hg HCO3 34.4 H (21-28) mmol/L ABG pH 7.50 H (7.35-7.45) ABG Total CO2 38.1 H (22-28) mmol/L ABG O2 Saturation 98.9 H (95-98) % ABG Base Excess 12.2 H (-2.0-3.0) mmol/L Oswaldo Test Yes ABG Potassium 2.4 L* (3.6-5.2) mmol/L A-a O2 Difference 161.0 mm/Hg Sodium 141.0 (132-148) mmol/L Chloride 107.0 (98-107) mmol/L Glucose 201 H (65-105) mg/dL Lactate 1.6 (0.7-2.1) mmol/L Vent Mode Nc FiO2 40.0 % Blood Gas Comments Nc 5 Crit Value Called To Dr. debbi mina m.d Crit Value Called By Maxine Crit Value Read Back Y Blood Gas Notified Time 1049 Potassium (3.6-5.0) MMOL/L Carbon Dioxide (22-30) mmol/L Anion Gap (10-20) BUN (7-17) mg/dl Creatinine (0.7-1.2) mg/dl Est GFR ( Amer) Est GFR (Non-Af Amer) Random Glucose (65-105) mg/dL Calcium (8.4-10.2) mg/dL Phosphorus (2.5-4.5) mg/dl Magnesium (1.6-2.3) MG/DL Arterial Blood Potassium 2.4 L* (3.6-5.2) mmol/L Laboratory Results - last 24 hr 05/26/18 05/26/18 05/27/18 10:36 14:56 04:30 WBC 6.9 RBC 3.01 L Hgb 8.7 L Hct 27.1 L MCV 90.2 MCH 28.8 MCHC 32.0 L RDW 17.0 H Plt Count 101 L pCO2 47 H pO2 65 L HCO3 34.4 H ABG pH 7.50 H ABG Total CO2 38.1 H ABG O2 Saturation 98.9 H ABG Base Excess 12.2 H Oswaldo Test Yes ABG Potassium 2.4 L* A-a O2 Difference 161.0 Sodium 141.0 140 Chloride 107.0 102 Glucose 201 H Lactate 1.6 Vent Mode Nc FiO2 40.0 Blood Gas Comments Nc 5 Crit Value Called To Dr. debbi mina m.d Crit Value Called By Maxine Crit Value Read Back Y Blood Gas Notified Time 1049 Potassium 4.1 Carbon Dioxide 36 H Anion Gap 6 L BUN 8 Creatinine 0.3 L Est GFR ( Amer) > 60 Est GFR (Non-Af Amer) > 60 Random Glucose 148 H Calcium 7.6 L Phosphorus 2.4 L Magnesium 1.9 Arterial Blood Potassium 2.4 L* 05/27/18 04:30 WBC RBC Hgb Hct MCV MCH MCHC RDW Plt Count pCO2 pO2 HCO3 ABG pH ABG Total CO2 ABG O2 Saturation ABG Base Excess Oswaldo Test ABG Potassium A-a O2 Difference Sodium 136 Chloride 100 Glucose Lactate Vent Mode FiO2 Blood Gas Comments Crit Value Called To Crit Value Called By Crit Value Read Back Blood Gas Notified Time Potassium 4.3 Carbon Dioxide 31 H Anion Gap 9 L BUN 9 Creatinine 0.2 L Est GFR ( Amer) > 60 Est GFR (Non-Af Amer) > 60 Random Glucose 225 H Calcium 7.4 L Phosphorus Magnesium Arterial Blood Potassium Radiology Impressions: Radiology Impressions Abdomen X-Ray 05/26/18 11:53 IMPRESSION: Nonspecific bowel gas pattern with gaseous distention. Chest X-Ray 05/26/18 12:55 IMPRESSION: Pulmonary vascular congestion. Right basilar infiltrate. Small bilateral pleural effusions not excluded. Fingerstick Blood Sugar Results: 187 Assessment/Plan - Assessment and Plan (Free Text) Assessment: IMPRESSION / MAJOR PROBLEMS NOW: 1- Pulm edema, CHF, 2. AMS, r/o NCSE, vs other occult seizure activity, metabolic Encephalopathy, possible Sepsis Encephalopathy; h/o Dementia 2. Acute resp insuff 2 bilateral Pneumonia, , Aspiration , pul congestion 3. h/o ORIF R Hip; L Femoral fracture repair 4. Chronic Disease Anemia 5. New Thrombocytopenia this Admission, h/o of Low Platelets; r/o Drug effect, DIC PLAN: 1. f/u K levels, and Na. 2- Lasix 20 mg Iv q 12 H. 3 Continue Clinda/ Levaquin / Vanco. 4. Nasal cannula as tolerated. Too lethargic for BiPAP support, if hypoxemia worsens will need MV support. Full Code and resuscitation measures as per son. Check ABG / CXR.
--- NOTE | 2018-05-27 12:39 | CP.PCM.PN ---
Subjective - Date & Time of Evaluation Date of Evaluation: 05/27/18 Time of Evaluation: 12:39 - Subjective Subjective: ID Note- Patient seen and examined today in ICU. pt. on ventimask and lethargic. as per nurse no new events overnight. Objective - Vital Signs/Intake and Output Vital Signs (last 24 hours): Temp Pulse Resp BP Pulse Ox 97.7 F 97 H 29 H 104/50 L 100 05/27/18 12:00 05/27/18 12:00 05/27/18 12:00 05/27/18 12:00 05/27/18 12:00 Intake and Output: 05/27/18 05/27/18 06:59 18:59 Intake Total 660 600 Balance 660 600 - Medications Medications: Current Medications Albuterol/Ipratropium (Duoneb 3 Mg/0.5 Mg (3 Ml) Ud) 3 ml INH RQ6 PRN PRN Reason: Shortness of Breath Last Admin: 05/24/18 05:53 Dose: 3 ml Dimethicone (Proshield Plus Skin Protectant) 1 applic TOP Q8 BELLE Last Admin: 05/27/18 08:31 Dose: 1 applic Furosemide (Lasix) 40 mg IVP DAILY BELLE Last Admin: 05/27/18 10:25 Dose: 40 mg Hydromorphone HCl (Dilaudid) 0.5 mg IVP Q4 PRN PRN Reason: Pain, moderate (4-7) Last Admin: 05/25/18 18:03 Dose: 0.5 mg Levofloxacin/Dextrose (Levaquin 500mg) 500 mg in 100 mls @ 100 mls/hr IVPB DAILY BELLE; Protocol Last Admin: 05/27/18 09:02 Dose: 100 mls/hr Clindamycin Phosphate (Cleocin) 600 mg in 50 mls @ 50 mls/hr IVPB Q8 BELLE; Protocol Last Admin: 05/27/18 08:29 Dose: 50 mls/hr Vancomycin HCl 500 mg/ Sodium (Chloride) 100 mls @ 100 mls/hr IVPB Q12 BELLE; Protocol Last Admin: 05/27/18 09:41 Dose: 100 mls/hr Levetiracetam (Keppra) 500 mg PO BID BELLE Last Admin: 05/27/18 08:31 Dose: 500 mg Sodium Hypochlorite (Dakins Solution 0.125%) 1 appl TOP Q12H BELLE Last Admin: 05/27/18 03:24 Dose: 1 appl - Labs Labs: - Additional Findings Additional findings: - Constitutional Appears: Chronically Ill Additional comments: nonverbal, lethargic - Head Exam Head Exam: ATRAUMATIC - ENT Exam Additional comments: dry oral mucosa - Neck Exam Neck exam: Positive for: Full Rom - Respiratory Exam Additional comments: no wheezing decreased breath sounds at right base - Cardiovascular Exam Cardiovascular Exam: RRR, +S1, +S2 - GI/Abdominal Exam GI & Abdominal Exam: Normal Bowel Sounds, Soft Additional comments: NT, ND - Extremities Exam Additional comments: right femur surgical site with steri -strips in place clean/dry/Intact no erythema has left great toe small ulcer at the tip , no discharge, no open wound - Neurological Exam Neurological exam: Altered but more awake today - Skin Additional comments: mid sacral stage 4 decub, no discharge mid upper back 2 smaller uleartions one stage 2 with eschar and the superior one stage 1, no opening Laboratory Results - last 72 hr 05/20/18 05/25/18 05/25/18 15:40 04:25 04:25 WBC 10.4 RBC 3.38 L Hgb 9.7 L Hct 30.5 L MCV 90.1 D MCH 28.7 MCHC 31.8 L RDW 17.5 H Plt Count 101 L MPV 12.5 H Neut % (Auto) 93.8 H Lymph % (Auto) 2.6 L [place] % (Auto) 3.3 Eos % (Auto) 0.1 Baso % (Auto) 0.2 Neut # (Auto) 9.8 H Lymph # (Auto) 0.3 L [place] # (Auto) 0.3 Eos # (Auto) 0.0 Baso # (Auto) 0.0 Neutrophils % (Manual) 91 H Lymphocytes % (Manual) 4 L Monocytes % (Manual) 5 Platelet Estimate Decreased L Large Platelets Present Hypochromasia (manual) Slight Anisocytosis (manual) Slight Tear Drop Cells Slight Ovalocytes Slight pCO2 pO2 HCO3 ABG pH ABG Total CO2 ABG O2 Saturation ABG Base Excess Oswaldo Test ABG Potassium A-a O2 Difference Glucose Lactate Vent Mode FiO2 Blood Gas Comments Crit Value Called To Crit Value Called By Crit Value Read Back Blood Gas Notified Time Sodium 146 Potassium 2.3 L* D Chloride 110 H Carbon Dioxide 31 H Anion Gap 7 L BUN 8 Creatinine 0.3 L Est GFR ( Amer) > 60 Est GFR (Non-Af Amer) > 60 Random Glucose 234 H Calcium 7.8 L Phosphorus Magnesium Troponin I NT-Pro-B Natriuret Pep Arterial Blood Potassium Urine Color Urine Clarity Urine pH Ur Specific [place] Urine Protein Urine Glucose (UA) Urine Ketones Urine Blood Urine Nitrate Urine Bilirubin Urine Urobilinogen Ur Leukocyte Esterase Urine RBC (Auto) Urine Microscopic WBC Ur Squamous Epith Cells Urine Bacteria Hyaline Casts Vancomycin Trough Lamotrigine 0.6 mcg/ml l 05/25/18 05/26/18 05/26/18 21:00 05:25 05:25 WBC RBC Hgb Hct MCV MCH MCHC RDW Plt Count MPV Neut % (Auto) Lymph % (Auto) [place] % (Auto) Eos % (Auto) Baso % (Auto) Neut # (Auto) Lymph # (Auto) [place] # (Auto) Eos # (Auto) Baso # (Auto) Neutrophils % (Manual) Lymphocytes % (Manual) Monocytes % (Manual) Platelet Estimate Large Platelets Hypochromasia (manual) Anisocytosis (manual) Tear Drop Cells Ovalocytes pCO2 pO2 HCO3 ABG pH ABG Total CO2 ABG O2 Saturation ABG Base Excess Oswaldo Test ABG Potassium A-a O2 Difference Glucose Lactate Vent Mode FiO2 Blood Gas Comments Crit Value Called To Crit Value Called By Crit Value Read Back Blood Gas Notified Time Sodium Potassium Chloride Carbon Dioxide Anion Gap BUN Creatinine Est GFR ( Amer) Est GFR (Non-Af Amer) Random Glucose Calcium Phosphorus Magnesium Troponin I < 0.0120 NT-Pro-B Natriuret Pep 770 Arterial Blood Potassium Urine Color Urine Clarity Urine pH Ur Specific [place] Urine Protein Urine Glucose (UA) Urine Ketones Urine Blood Urine Nitrate Urine Bilirubin Urine Urobilinogen Ur Leukocyte Esterase Urine RBC (Auto) Urine Microscopic WBC Ur Squamous Epith Cells Urine Bacteria Hyaline Casts Vancomycin Trough 8.2 Lamotrigine 05/26/18 05/26/18 05/26/18 06:30 10:36 14:56 WBC RBC Hgb Hct MCV MCH MCHC RDW Plt Count MPV Neut % (Auto) Lymph % (Auto) [place] % (Auto) Eos % (Auto) Baso % (Auto) Neut # (Auto) Lymph # (Auto) [place] # (Auto) Eos # (Auto) Baso # (Auto) Neutrophils % (Manual) Lymphocytes % (Manual) Monocytes % (Manual) Platelet Estimate Large Platelets Hypochromasia (manual) Anisocytosis (manual) Tear Drop Cells Ovalocytes pCO2 47 H pO2 65 L HCO3 34.4 H ABG pH 7.50 H ABG Total CO2 38.1 H ABG O2 Saturation 98.9 H ABG Base Excess 12.2 H Oswaldo Test Yes ABG Potassium 2.4 L* A-a O2 Difference 161.0 Glucose 201 H Lactate 1.6 Vent Mode Nc FiO2 40.0 Blood Gas Comments Nc 5 Crit Value Called To Dr. debbi mina m.d Crit Value Called By Maxine Crit Value Read Back Y Blood Gas Notified Time 1049 Sodium 141.0 140 Potassium 4.1 Chloride 107.0 102 Carbon Dioxide 36 H Anion Gap 6 L BUN 8 Creatinine 0.3 L Est GFR ( Amer) > 60 Est GFR (Non-Af Amer) > 60 Random Glucose 148 H Calcium 7.6 L Phosphorus 2.4 L Magnesium 1.9 Troponin I NT-Pro-B Natriuret Pep Arterial Blood Potassium 2.4 L* Urine Color Yellow Urine Clarity Cloudy Urine pH 5.0 Ur Specific [place] 1.019 Urine Protein 30 Urine Glucose (UA) 50 Urine Ketones Negative Urine Blood Negative Urine Nitrate Negative Urine Bilirubin Negative Urine Urobilinogen 2.0 H Ur Leukocyte Esterase Neg Urine RBC (Auto) 6 H Urine Microscopic WBC 15 H Ur Squamous Epith Cells 2 Urine Bacteria Rare Hyaline Casts 3-5 H Vancomycin Trough Lamotrigine 05/27/18 05/27/18 04:30 04:30 WBC 6.9 RBC 3.01 L Hgb 8.7 L Hct 27.1 L MCV 90.2 MCH 28.8 MCHC 32.0 L RDW 17.0 H Plt Count 101 L MPV Neut % (Auto) Lymph % (Auto) [place] % (Auto) Eos % (Auto) Baso % (Auto) Neut # (Auto) Lymph # (Auto) [place] # (Auto) Eos # (Auto) Baso # (Auto) Neutrophils % (Manual) Lymphocytes % (Manual) Monocytes % (Manual) Platelet Estimate Large Platelets Hypochromasia (manual) Anisocytosis (manual) Tear Drop Cells Ovalocytes pCO2 pO2 HCO3 ABG pH ABG Total CO2 ABG O2 Saturation ABG Base Excess Oswaldo Test ABG Potassium A-a O2 Difference Glucose Lactate Vent Mode FiO2 Blood Gas Comments Crit Value Called To Crit Value Called By Crit Value Read Back Blood Gas Notified Time Sodium 136 Potassium 4.3 Chloride 100 Carbon Dioxide 31 H Anion Gap 9 L BUN 9 Creatinine 0.2 L Est GFR ( Amer) > 60 Est GFR (Non-Af Amer) > 60 Random Glucose 225 H Calcium 7.4 L Phosphorus Magnesium Troponin I NT-Pro-B Natriuret Pep Arterial Blood Potassium Urine Color Urine Clarity Urine pH Ur Specific [place] Urine Protein Urine Glucose (UA) Urine Ketones Urine Blood Urine Nitrate Urine Bilirubin Urine Urobilinogen Ur Leukocyte Esterase Urine RBC (Auto) Urine Microscopic WBC Ur Squamous Epith Cells Urine Bacteria Hyaline Casts Vancomycin Trough Lamotrigine Microbiology 05/25/18 16:35 Blood-Venous Blood Culture - Preliminary NO GROWTH AFTER 24 HOURS 05/25/18 16:25 Blood-Venous Blood Culture - Preliminary NO GROWTH AFTER 24 HOURS 05/21/18 09:10 Blood-Venous Blood Culture - Final NO GROWTH AFTER 5 DAYS 05/21/18 09:10 Blood-Venous Gram Stain - Final TEST NOT PERFORMED 05/20/18 13:00 Blood Blood Culture - Final NO GROWTH AFTER 5 DAYS 05/20/18 13:00 Blood Gram Stain - Final TEST NOT PERFORMED 05/20/18 17:43 Nose MRSA Culture (Admit) - Final MRSA NOT DETECTED 05/20/18 13:34 Urine,De La Cruz Urine Culture - Final Enterococcus Faecalis Accession No. : [id number] Patient Name / ID : LENORA PAGAN / [id number] Exam Date : 05/26/2018 13:12:46 ( Approved ) Study Comment : Sex / Age : F / 83Y Creator : William Chua MD Dictator : William Chua MD Tap Builder : Evaluation Engineer : William Chua MD Approver2 : Report Date : 05/26/2018 13:31:13 My Comment : Date of service: 05/26/2018 HISTORY: hypoxemia / Tachypnea COMPARISON: Chest radiograph dated 05/24/2018. FINDINGS: LUNGS: Pulmonary vascular congestion. Right basilar infiltrate. Left basilar atelectasis. PLEURA: Small bilateral pleural effusions not excluded. No appreciable pneumothorax. CARDIOVASCULAR: Aortic atherosclerotic calcifications. Cardiomediastinal silhouette stably enlarged. OSSEOUS STRUCTURES: L3 vertebral augmentation. Unchanged. VISUALIZED UPPER ABDOMEN: Right upper quadrant surgical clips OTHER FINDINGS: Enteric tube, unchanged IMPRESSION: Pulmonary vascular congestion. Right basilar infiltrate. Small bilateral pleural effusions not excluded. Assessment and Plan (1) Altered mental status Status: Acute (2) Decubitus ulcer of sacral area Status: Acute (3) Deep tissue injury Status: Acute (4) Hx of fracture of femur Status: Chronic (5) Seizure disorder Status: Chronic - Assessment and Plan (Free Text) Assessment: A/P 83 year old female with multiple medical conditions icnluding CAD, Dementia, COPD, recent right femur [facility]. pt. has been afebrile since admission. mild leukocytosis has resolved. UA- negative, urine cx- E.fecalis ( could eb contaminant ) since the UA from same day negative. repeat UA from [facility] 05/26/2018- Negative Blood cx- neg x 2 CXR as per report ? right basilar infiltrate , could be secondary to aspiration. PLan- await sputum cx. advise to cover with empiric vanco for the deep sacral decub . keep trough <15. wound consult f/u recommendations. advise to monitor aspiration precautions as well. agree with clindamycin to cover for ? aspiration pneumonia. day #3 agree with levaquin as well that was already started by the admitting doc. Critical care time spent 45 minutes.
--- NOTE | 2018-05-27 14:04 | CP.PCM.PN ---
Subjective - Date & Time of Evaluation Date of Evaluation: 05/27/18 Time of Evaluation: 12:40 - Subjective Subjective: moaning, minimal response to tactil stimuli, on NR 100% Objective - Vital Signs/Intake and Output Vital Signs (last 24 hours): Temp Pulse Resp BP Pulse Ox 97.7 F 97 H 29 H 104/50 L 100 05/27/18 12:00 05/27/18 12:00 05/27/18 12:00 05/27/18 12:00 05/27/18 12:00 Intake and Output: 05/27/18 05/27/18 06:59 18:59 Intake Total 660 600 Balance 660 600 - Medications Medications: Current Medications Albuterol/Ipratropium (Duoneb 3 Mg/0.5 Mg (3 Ml) Ud) 3 ml INH RQ6 PRN PRN Reason: Shortness of Breath Last Admin: 05/24/18 05:53 Dose: 3 ml Dimethicone (Proshield Plus Skin Protectant) 1 applic TOP Q8 BELLE Last Admin: 05/27/18 08:31 Dose: 1 applic Furosemide (Lasix) 40 mg IVP DAILY BELLE Last Admin: 05/27/18 10:25 Dose: 40 mg Hydromorphone HCl (Dilaudid) 0.5 mg IVP Q4 PRN PRN Reason: Pain, moderate (4-7) Last Admin: 05/25/18 18:03 Dose: 0.5 mg Levofloxacin/Dextrose (Levaquin 500mg) 500 mg in 100 mls @ 100 mls/hr IVPB DAILY BELLE; Protocol Last Admin: 05/27/18 09:02 Dose: 100 mls/hr Clindamycin Phosphate (Cleocin) 600 mg in 50 mls @ 50 mls/hr IVPB Q8 BELLE; Protocol Last Admin: 05/27/18 08:29 Dose: 50 mls/hr Vancomycin HCl 500 mg/ Sodium (Chloride) 100 mls @ 100 mls/hr IVPB Q12 BELLE; Protocol Last Admin: 05/27/18 09:41 Dose: 100 mls/hr Levetiracetam (Keppra) 500 mg PO BID BELLE Last Admin: 05/27/18 08:31 Dose: 500 mg Sodium Hypochlorite (Dakins Solution 0.125%) 1 appl TOP Q12H BELLE Last Admin: 05/27/18 13:50 Dose: 1 appl - Labs Labs: 05/27/18 04:30 05/27/18 04:30 PT 20.0 Seconds (9.8-13.1) H 05/20/18 13:00 INR 1.8 05/20/18 13:00 APTT 30.8 Seconds (25.6-37.1) 05/20/18 13:00 - Constitutional Appears: Chronically Ill - Head Exam Head Exam: NORMAL INSPECTION - Eye Exam Eye Exam: PERRL - ENT Exam ENT Exam: Normal Exam - Neck Exam Neck Exam: Normal Inspection - Respiratory Exam Respiratory Exam: Decreased Breath Sounds (at bases), Rhonchi (scattered) - Cardiovascular Exam Cardiovascular Exam: REGULAR RHYTHM - GI/Abdominal Exam GI & Abdominal Exam: Soft, Normal Bowel Sounds - Exam Additional comments: De La Cruz Cath - Extremities Exam Additional comments: inmobilizer RLE - Back Exam Additional comments: L-S decubitus Stage IV, upper back DTI - Neurological Exam Additional comments: moaning, minimal response to tactil stimuli, generalized weakness - Skin Skin Exam: Warm Assessment and Plan (1) Aspiration pneumonia Status: Acute (2) Sepsis Status: Acute (3) Toxic metabolic encephalopathy Status: Acute (4) Altered mental status Status: Acute (5) UTI (urinary tract infection) Status: Acute (6) Dehydration Status: Resolved (7) Hypernatremia Status: Resolved (8) Decubitus ulcer of sacral area Status: Acute (9) Deep tissue injury Status: Acute (10) Chronic back pain Status: Chronic (11) Hx of fracture of femur Status: Chronic (12) HTN (hypertension) Status: Acute (13) COPD (chronic obstructive pulmonary disease) Status: Chronic (14) Hx of congestive heart failure Status: Chronic (15) Seizure disorder Status: Chronic - Assessment and Plan (Free Text) Plan: continue Mumtaz Jimenes, Neil Samuel Keppra, Tx of L-S decubitus Stage IV Critical care time: 32 min.
[2018-05-28] MEDS: Proshield Plus GEL TOP SCH ×3 (01:30→16:52)
[2018-05-28] MEDS: Clindamycin 600mg/50ml D5W 600 MG/50 ML VIAL IVPB SCH ×5 (01:30→16:23)
[2018-05-28 05:30] LABS: BASO % 0.2 % (0.0-2.0); EOS % 0.6 % (0.0-4.0); HEMOGLOBIN 9.1 g/dL (12.0-16.0); LYMPH # 0.3 K/uL (1.0-4.3); LYMPH % 4.5 % (20.0-40.0); MEAN CELL VOLUME 88.7 fl (81.0-99.0); MEAN CORPUSCULAR HEMOGLOBIN 28.8 pg (27.0-31.0); MEAN CORPUSCULAR HGB CONC 32.5 g/dL (33.0-37.0); MEAN PLATELET VOLUME 12.5 fl (7.2-11.7); MONO # 0.5 K/uL (0.0-0.8); MONO % 7.7 % (0.0-10.0); NEUT # 5.2 K/uL (1.8-7.0); NRBC % 0.4 % (0.0-0.0); RBC 3.18 Mil/uL (3.80-5.20); RED CELL DISTRIBUTION WIDTH 16.8 % (11.5-14.5)
[2018-05-28 05:32] LABS: PLATELET COUNT 122 K/uL (130-400)
[2018-05-28 05:49] LABS: BLOOD UREA NITROGEN 11 mg/dl (7-17); CALCIUM 7.9 mg/dL (8.4-10.2); GFR NON-AFRICAN AMERICAN > 60
[2018-05-28 06:10] LABS: LYMPHOCYTE 9 % (20-50); METAMYELOCYTE 1 % (0-0); MONOCYTE 4 % (0-10); MYELOCYTE 1 % (0-0); NEUTROPHIL 85 % (42-75); TOTAL CELLS COUNTED 100
[2018-05-28 06:11] LABS: PLATELET ESTIMATE DECREASED (NORMAL)
[2018-05-28 06:13] LABS: ANISOCYTOSIS SLIGHT
[2018-05-28 06:14] LABS: BURR CELLS SLIGHT; HYPOCHROMIC SLIGHT
[2018-05-28] MEDS: levoFLOXacin 500 mg in D5W 500 MG/100 ML BAG IVPB SCH ×3 (09:41→12:37)
[2018-05-28] MEDS: levETIRAcetam 100 mg/ml (5ml) Oral Syringe PO SCH ×2 (09:41→16:23)
--- NOTE | 2018-05-28 11:34 | CP.CCUPN ---
CCU Subjective - Physician Review Events Since Last Encounter (Free Text): 05/28/18 11:30 Barely responsive, maintaining Oxy sat ? 95% on 100% NRB, will change to VM, BP stab;e Sputum culture showed GNR, pt on levaquin and clinda and vanco Needed meds and Abx, no IV vascular IV access could be established by nurses, pt needed central line on emergency basis, Pt's son could not be reached OTP for consent, as it was relatively low risk procedure, I inserted Rt femoral vein TLC without the consent and without any complication , no bleeding to hematoma. ( As I was writing this son called and gave the consent ). 05/28/18 11:39 CCU Objective - Vital Signs / Intake & Output Vital Signs (Last 4 hours): Vital Signs Temp Pulse Resp BP Pulse Ox 05/28/18 07:45 98.3 F 103 H 25 H 118/50 L 100 Intake and Output (Last 8hrs): Intake & Output 05/27/18 05/28/18 05/28/18 22:59 06:59 14:59 Intake Total 582 534 80 Output Total 350 500 Balance 232 34 80 Intake: IV 2 14 Intake, Piggyback 150 50 Tube Feeding 280 320 80 Free Water Flush 150 150 Output: Urine 350 500 Urethral (De La Cruz) 350 500 - Physical Exam Narrative Physical Exam (Free Text): 05/28/18 11:34 P/E Neck: No JVD Lungs: Bilateral basal crackles Abdomen; soft, non-tender Ext; +1 edema Heart; No gallop Head: Positive for: Atraumatic, Normocephalic Pupils: Positive for: PERRL Conjunctiva: Positive for: Normal Mouth: Positive for: Dry Nose (External): Positive for: Atraumatic Neck: Positive for: Normal Range of Motion. Negative for: MIDLINE TENDERNESS, JVD Respiratory/Chest: Positive for: Rhonchi. Negative for: Respiratory Distress, Accessory Muscle Use, Wheezes Cardiovascular: Positive for: Regular Rate and Rhythm, Normal S1, S2, Peripheal Pulses Present. Negative for: Tachycardic Abdomen: Positive for: Normal Bowel Sounds Upper Extremity: Positive for: Normal Inspection, NORMAL PULSES. Negative for: Edema Lower Extremity: Positive for: Normal Inspection, NORMAL PULSES. Negative for: CALF TENDERNESS Neurological: Positive for: Other (no response to verbal stimuli) Psychiatric: Positive for: Alert. Negative for: Oriented x 3 - Medications Active Medications: Active Medications Generic Name Dose Route Start Last Admin Trade Name Freq PRN Reason Stop Dose Admin Albuterol/Ipratropium 3 ml 05/23/18 22:42 05/24/18 05:53 Duoneb 3 Mg/0.5 Mg (3 Ml) Ud INH 3 ml RQ6 PRN Administration Shortness of Breath Dimethicone 1 applic 05/24/18 01:00 05/28/18 09:41 Proshield Plus Skin Protectant TOP 1 applic Q8 BELLE Administration Furosemide 40 mg 05/27/18 10:00 05/28/18 10:47 Lasix IVP Not Given DAILY BELLE Levofloxacin/Dextrose 500 mg in 100 mls @ 100 mls/hr 05/24/18 09:00 05/28/18 10:47 Levaquin 500mg IVPB Not Given DAILY BELLE Protocol Clindamycin Phosphate 600 mg in 50 mls @ 50 mls/hr 05/25/18 17:00 05/28/18 10:44 Cleocin IVPB Not Given Q8 BELLE Protocol Vancomycin HCl 500 mg/ Sodium 100 mls @ 100 mls/hr 05/26/18 21:00 05/28/18 10:46 Chloride IVPB Not Given Q12 BELLE Protocol Levetiracetam 500 mg 05/22/18 17:00 05/28/18 09:41 Keppra PO 500 mg BID BELLE Administration Sodium Hypochlorite 1 appl 05/22/18 14:30 05/28/18 03:00 Dakins Solution 0.125% TOP 1 appl Q12H BELLE Administration - Patient Studies Lab Studies: Microbiology Studies 05/27/18 16:08 Gram Stain - Final Sputum Sputum Culture - Preliminary Gram Negative Tomas 05/25/18 16:35 Blood Culture - Preliminary Blood-Venous NO GROWTH AFTER 48 HOURS 05/25/18 16:25 Blood Culture - Preliminary Blood-Venous NO GROWTH AFTER 48 HOURS 05/26/18 06:30 Urine Culture - Preliminary Urine,De La Cruz Gram Negative Tomas Lab Studies 05/28/18 05/28/18 Range/Units 04:26 04:26 WBC 6.0 (4.8-10.8) K/uL RBC 3.18 L (3.80-5.20) Mil/uL Hgb 9.1 L (12.0-16.0) g/dL Hct 28.2 L (34.0-47.0) % MCV 88.7 (81.0-99.0) fl MCH 28.8 (27.0-31.0) pg MCHC 32.5 L (33.0-37.0) g/dL RDW 16.8 H (11.5-14.5) % Plt Count 122 L D (130-400) K/uL MPV 12.5 H (7.2-11.7) fl Neut % (Auto) 87.0 H (50.0-75.0) % Lymph % (Auto) 4.5 L (20.0-40.0) % [place] % (Auto) 7.7 (0.0-10.0) % Eos % (Auto) 0.6 (0.0-4.0) % Baso % (Auto) 0.2 (0.0-2.0) % Neut # (Auto) 5.2 (1.8-7.0) K/uL Lymph # (Auto) 0.3 L (1.0-4.3) K/uL [place] # (Auto) 0.5 (0.0-0.8) K/uL Eos # (Auto) 0.0 (0.0-0.7) K/uL Baso # (Auto) 0.0 (0.0-0.2) K/uL Neutrophils % (Manual) 85 H (42-75) % Lymphocytes % (Manual) 9 L (20-50) % Monocytes % (Manual) 4 (0-10) % Metamyelocytes % 1 H (0-0) % Myelocytes % 1 H (0-0) % Platelet Estimate Decreased L (NORMAL) Hypochromasia (manual) Slight Anisocytosis (manual) Slight Michelle Cells Slight Sodium 136 (132-148) mmol/l Potassium 3.6 (3.6-5.0) MMOL/L Chloride 96 L (98-107) mmol/L Carbon Dioxide 36 H (22-30) mmol/L Anion Gap 8 L (10-20) BUN 11 (7-17) mg/dl Creatinine 0.3 L (0.7-1.2) mg/dl Est GFR ( Amer) > 60 Est GFR (Non-Af Amer) > 60 Random Glucose 230 H (65-105) mg/dL Calcium 7.9 L (8.4-10.2) mg/dL Laboratory Results - last 24 hr 05/28/18 05/28/18 04:26 04:26 WBC 6.0 RBC 3.18 L Hgb 9.1 L Hct 28.2 L MCV 88.7 MCH 28.8 MCHC 32.5 L RDW 16.8 H Plt Count 122 L D MPV 12.5 H Neut % (Auto) 87.0 H Lymph % (Auto) 4.5 L [place] % (Auto) 7.7 Eos % (Auto) 0.6 Baso % (Auto) 0.2 Neut # (Auto) 5.2 Lymph # (Auto) 0.3 L [place] # (Auto) 0.5 Eos # (Auto) 0.0 Baso # (Auto) 0.0 Neutrophils % (Manual) 85 H Lymphocytes % (Manual) 9 L Monocytes % (Manual) 4 Metamyelocytes % 1 H Myelocytes % 1 H Platelet Estimate Decreased L Hypochromasia (manual) Slight Anisocytosis (manual) Slight Michelle Cells Slight Sodium 136 Potassium 3.6 Chloride 96 L Carbon Dioxide 36 H Anion Gap 8 L BUN 11 Creatinine 0.3 L Est GFR ( Amer) > 60 Est GFR (Non-Af Amer) > 60 Random Glucose 230 H Calcium 7.9 L Fingerstick Blood Sugar Results: 187 Assessment/Plan - Assessment and Plan (Free Text) Assessment: IMPRESSION / MAJOR PROBLEMS NOW: 1- Pulm edema, CHF, 2. AMS, r/o NCSE, vs other occult seizure activity, metabolic Encephalopathy, possible Sepsis Encephalopathy; h/o Dementia 2. Acute resp insuff 2 bilateral Pneumonia, , Aspiration , pul congestion , GNR in sputum Culture 3. h/o ORIF R Hip; L Femoral fracture repair 4. Chronic Disease Anemia 5. New Thrombocytopenia this Admission, h/o of Low Platelets; r/o Drug effect, DIC : improving PLAN: 1. f/u K levels, and Na. 2- Lasix increased to 40 mg Iv q 12 H. 3- Kcl 20 meq po bid 3 Continue Clinda/ Levaquin / Vanco. 4. Nasal cannula as tolerated. Too lethargic for BiPAP support, if hypoxemia worsens will need MV support. Full Code and resuscitation measures as per son. Check ABG / CXR. 5- Pt femoral TLC was inserted without any complication as pt needed access on emergency basis and son could not be reached, left message, he called later and gave the consent.
--- NOTE | 2018-05-28 11:43 | PCM.PROC ---
Procedures Attestation:: I certify that I have explained the specified Operation(s) or Procedure(s), risks, benefits and reasonable alternatives to the Patient and/or other person responsible. The opportunity was given to ask questions and all questions answered - Central Line Placement Right Femoral CVP Time Out Performed: Yes Pt. Placed on Pulse Ox Monitor: Yes Central Line Prep: Chlorhexidine-Alcohol Combination Local Anesthesia Used: Lidocaine 2% Amount of Anesthesia Used (mls): 1 Ultrasound Used for Placement: No Central Line Lumen Inserted: triple Central Line Length: 16 cm Post Procedure: Sutured in Place, Good Blood Return, All Ports Aspirated, Flushed, Capped, Sterile Dressing Applied Secured by: Suture Post procedure dressing: Chlorhexidine disc (Biopatch) Post Procedure X-Ray: No Patient Tolerated Procedure: Well Immediate Complications: None
[2018-05-28] MEDS ORDERED: Potassium Chloride 20 mEq 100 ML IVPB ONE (12:15)
--- NOTE | 2018-05-28 15:30 | CP.PCM.PN ---
Subjective - Date & Time of Evaluation Date of Evaluation: 05/28/18 Time of Evaluation: 13:30 - Subjective Subjective: moaning, minimal response to tactil stimuli Objective - Vital Signs/Intake and Output Vital Signs (last 24 hours): Temp Pulse Resp BP Pulse Ox 97.5 F L 88 18 129/65 100 05/28/18 12:00 05/28/18 14:00 05/28/18 14:00 05/28/18 14:00 05/28/18 14:00 Intake and Output: 05/28/18 05/28/18 06:59 18:59 Intake Total 756 870 Output Total 500 Balance 256 870 - Medications Medications: Current Medications Albuterol/Ipratropium (Duoneb 3 Mg/0.5 Mg (3 Ml) Ud) 3 ml INH RQ6 PRN PRN Reason: Shortness of Breath Last Admin: 05/24/18 05:53 Dose: 3 ml Dimethicone (Proshield Plus Skin Protectant) 1 applic TOP Q8 BELLE Last Admin: 05/28/18 09:41 Dose: 1 applic Furosemide (Lasix) 40 mg IVP BID BELLE Levofloxacin/Dextrose (Levaquin 500mg) 500 mg in 100 mls @ 100 mls/hr IVPB DAILY BELLE; Protocol Last Admin: 05/28/18 12:37 Dose: 100 mls/hr Clindamycin Phosphate (Cleocin) 600 mg in 50 mls @ 50 mls/hr IVPB Q8 BELLE; Protocol Last Admin: 05/28/18 12:33 Dose: 50 mls/hr Vancomycin HCl 500 mg/ Sodium (Chloride) 100 mls @ 100 mls/hr IVPB Q12 BELLE; Protocol Last Admin: 05/28/18 12:36 Dose: 100 mls/hr Levetiracetam (Keppra) 500 mg PO BID BELLE Last Admin: 05/28/18 09:41 Dose: 500 mg Morphine Sulfate (Morphine) 2 mg IVP Q6 PRN PRN Reason: Pain, moderate (4-7) - Labs Labs: 05/28/18 04:26 05/28/18 04:26 PT 20.0 Seconds (9.8-13.1) H 05/20/18 13:00 INR 1.8 05/20/18 13:00 APTT 30.8 Seconds (25.6-37.1) 05/20/18 13:00 - Constitutional Appears: Chronically Ill - Head Exam Head Exam: NORMAL INSPECTION - Eye Exam Additional comments: pupils sluggish reactive - ENT Exam Additional comments: NG tube, NR 100% - Neck Exam Neck Exam: Normal Inspection - Respiratory Exam Respiratory Exam: Decreased Breath Sounds (at bases,), Rhonchi (scattered) - Cardiovascular Exam Cardiovascular Exam: Tachycardia - GI/Abdominal Exam GI & Abdominal Exam: Soft, Normal Bowel Sounds - Exam Additional comments: [place] Cath - Extremities Exam Additional comments: L heel DTI - Back Exam Additional comments: L-S Stage IV, upper back DTI - Neurological Exam Additional comments: moanin, minimal response to tactll stimuli - Skin Skin Exam: Warm Assessment and Plan (1) CHF (congestive heart failure) Status: Acute (2) Aspiration pneumonia Status: Acute (3) Sepsis Status: Acute (4) Toxic metabolic encephalopathy Status: Acute (5) Altered mental status Status: Acute (6) UTI (urinary tract infection) Status: Acute (7) Dehydration Status: Resolved (8) Hypernatremia Status: Resolved (9) Decubitus ulcer of sacral area Status: Acute (10) Deep tissue injury Status: Acute (11) Chronic back pain Status: Chronic (12) Hx of fracture of femur Status: Chronic (13) HTN (hypertension) Status: Acute (14) COPD (chronic obstructive pulmonary disease) Status: Chronic (15) Hx of congestive heart failure Status: Chronic (16) Seizure disorder Status: Chronic - Assessment and Plan (Free Text) Plan: continue Clinda, Vanco , Levaquin , DuoNeb, NR 100% and rest of treatment,Patient is a Full Code as per Patient family, prognosis poor Critical care time: 33 min.
[2018-05-28] MEDS ORDERED: Meropenem 1 GM in Sodium Chloride 0.9% 100 ML IVPB SCH (19:45)
[2018-05-29] MEDS: Clindamycin 600mg/50ml D5W 600 MG/50 ML VIAL IVPB SCH ×2 (00:04→08:07)
[2018-05-29] MEDS: Proshield Plus GEL TOP SCH ×3 (00:05→16:16)
[2018-05-29] MEDS ORDERED: Meropenem 1 GM in Sodium Chloride 0.9% 100 ML IVPB SCH (04:00)
[2018-05-29 05:34] LABS: ABG ALLEN TEST YES; ARTERIAL BLOOD GAS HCO3 44.3 mmol/L (21-28); ARTERIAL BLOOD GAS HEMOGLOBIN 8.7 g/dL (11.7-17.4); ARTERIAL BLOOD GAS O2 CAPACITY 12.7 mL/dL (16-24); ARTERIAL BLOOD GAS O2 CONTENT 12.7 ML/dL (15-23); ARTERIAL BLOOD GAS O2 SAT 99.7 % (95-98); ARTERIAL BLOOD GAS PCO2 62 mm/Hg (35-45); ARTERIAL BLOOD GAS PH 7.52 (7.35-7.45); ARTERIAL BLOOD GAS PO2 247 mm/Hg (80-100); ARTERIAL BLOOD GAS TCO2 52.5 mmol/L (22-28)
[2018-05-29 05:45] LABS: EOS % 0.2 % (0.0-4.0); HEMOGLOBIN 8.4 g/dL (12.0-16.0); LYMPH # 0.2 K/uL (1.0-4.3); MEAN CELL VOLUME 88.6 fl (81.0-99.0); MEAN CORPUSCULAR HEMOGLOBIN 28.3 pg (27.0-31.0); MONO # 0.4 K/uL (0.0-0.8); MONO % 6.1 % (0.0-10.0); NEUT # 6.4 K/uL (1.8-7.0); NEUT % 90.7 % (50.0-75.0); PLATELET COUNT 122 K/uL (130-400); RBC 2.97 Mil/uL (3.80-5.20); RED CELL DISTRIBUTION WIDTH 16.8 % (11.5-14.5); WHITE BLOOD COUNT 7.1 K/uL (4.8-10.8)
[2018-05-29 05:49] LABS: BLOOD UREA NITROGEN 12 mg/dl (7-17); GFR NON-AFRICAN AMERICAN > 60
[2018-05-29 06:40] LABS: ANISOCYTOSIS SLIGHT; BANDS 9 % (0-2); EOSINOPHIL 1 % (0-7); LYMPHOCYTE 2 % (20-50); METAMYELOCYTE 1 % (0-0); MONOCYTE 7 % (0-10); NEUTROPHIL 80 % (42-75); PLATELET ESTIMATE SLIGHTLY DECREASED (NORMAL); POIKILOCYTOSIS SLIGHT; TOTAL CELLS COUNTED 100
[2018-05-29] MEDS ORDERED: Potassium Chloride 20 mEq/15 ml LIQ UD PO ONE (06:54)
[2018-05-29] MEDS: levETIRAcetam 100 mg/ml (5ml) Oral Syringe PO SCH ×2 (08:09→16:15)
[2018-05-29] MEDS: levoFLOXacin 500 mg in D5W 500 MG/100 ML BAG IVPB SCH (08:10)
[2018-05-29] MEDS: Potassium Chloride 20 mEq 100 ML IVPB SCH ×2 (10:27→11:19)
[2018-05-29] MEDS ORDERED: Povidone Iodine Topical 10% Sol ONE (10:27)
--- NOTE | 2018-05-29 11:09 | CP.PCM.PN ---
<Marc Schrader - Last Filed: 05/29/18 20:32> Subjective - Date & Time of Evaluation Date of Evaluation: 05/29/18 Time of Evaluation: 11:09 - Subjective Subjective: Marc Schrader DO PGY1 - Internal Medicine [employer] - Cardiology Note for Dr. Varghese Patient was seen and examined at bedside this morning. No acute events reported overnight. Patient appears to be awake however she is confused , only moaning. Objective - Vital Signs/Intake and Output Vital Signs (last 24 hours): Temp Pulse Resp BP Pulse Ox 98.0 F 110 H 31 H 113/50 L 95 05/29/18 08:00 05/29/18 10:00 05/29/18 10:00 05/29/18 10:00 05/29/18 10:00 Intake and Output: 05/29/18 05/29/18 06:59 18:59 Intake Total 1000 500 Output Total 800 Balance 200 500 - Medications Medications: Current Medications Albuterol/Ipratropium (Duoneb 3 Mg/0.5 Mg (3 Ml) Ud) 3 ml INH RQ6 PRN PRN Reason: Shortness of Breath Last Admin: 05/24/18 05:53 Dose: 3 ml Dimethicone (Proshield Plus Skin Protectant) 1 applic TOP Q8 BELLE Last Admin: 05/29/18 08:11 Dose: 1 applic Furosemide (Lasix) 40 mg IVP BID BELLE Last Admin: 05/29/18 08:09 Dose: 40 mg Clindamycin Phosphate (Cleocin) 600 mg in 50 mls @ 50 mls/hr IVPB Q8 BELLE; Protocol Last Admin: 05/29/18 08:07 Dose: 50 mls/hr Vancomycin HCl 500 mg/ Sodium (Chloride) 100 mls @ 100 mls/hr IVPB Q12 BELLE; Protocol Last Admin: 05/29/18 08:12 Dose: 100 mls/hr Meropenem 1 gm/ Sodium (Chloride) 100 mls @ 100 mls/hr IVPB Q8@0400,1200,2000 BELLE; Protocol Last Admin: 05/29/18 04:45 Dose: 100 mls/hr Potassium Chloride (Potassium Chloride 20 Meq/100 Ml) 100 mls @ 50 mls/hr IVPB Q2 BELLE Stop: 05/29/18 11:59 Last Admin: 05/29/18 10:27 Dose: 50 mls/hr Lactulose (Enulose) 20 gm PO DAILY PRN PRN Reason: Constipation Levetiracetam (Keppra) 500 mg PO BID BELLE Last Admin: 05/29/18 08:09 Dose: 500 mg Morphine Sulfate (Morphine) 2 mg IVP Q6 PRN PRN Reason: Pain, moderate (4-7) Last Admin: 05/29/18 10:30 Dose: 2 mg - Labs Labs: 05/29/18 04:30 05/29/18 04:30 PT 20.0 Seconds (9.8-13.1) H 05/20/18 13:00 INR 1.8 05/20/18 13:00 APTT 30.8 Seconds (25.6-37.1) 05/20/18 13:00 - Constitutional Appears: Confused, Cachectic, Chronically Ill, Awake however does not verbalize - Head Exam Head Exam: ATRAUMATIC, NORMOCEPHALIC - Eye Exam Eye Exam: EOMI, PERRL - Respiratory Exam Respiratory Exam: Diffuse bilateral ronchi, On Non-Rebreather - Cardiovascular Exam Cardiovascular Exam: +S1, +S2 - GI/Abdominal Exam GI & Abdominal Exam: Soft. absent: Tenderness - Extremities Exam Extremities exam: Significant upper extremity edema w/ pitting bilaterally; Limited edema appreciated in BL lower extremities - Neurological Exam Neurological exam: Altered, Awake - Skin Skin Exam: Dry, Normal Color, Warm Assessment and Plan (1) Sepsis Status: Acute (2) Hx of congestive heart failure Status: Chronic (3) HTN (hypertension) Status: Acute (4) Abdominal pain Status: Acute (5) Sepsis Status: Acute - Assessment and Plan (Free Text) Plan: 83F w/ PMH Alzheimers, HTN, HLD, Asthma, Anxiety, diastolic CHF, previously normal stress test (may 2017) admitted for sepsis growing ESBL in urine + sputum - cardiology consulted for management of chronic cardiac conditions Will DC coreg and advise holding all BB until sepsis resolves Most recent echo (05/2018) - EF of 60-65%; Grade 1- abnormal relaxation pattern w/ mild AR and mild TR Troponin + BNP wnl Further reccs per Dr. Varghese <Juarez Varghese - Last Filed: 05/30/18 23:36> Objective - Vital Signs/Intake and Output Vital Signs (last 24 hours): Temp Pulse Resp BP Pulse Ox 98.7 F 106 H 34 H 126/55 L 100 05/30/18 20:00 05/30/18 22:00 05/30/18 22:00 05/30/18 22:00 05/30/18 22:00 Intake and Output: 05/30/18 05/31/18 18:59 06:59 Intake Total 840 264 Output Total 1400 Balance -560 264 - Medications Medications: Current Medications Albuterol Sulfate (Albuterol 0.083% Inhal Chantale (2.5 Mg/3 Ml) Ud) 2.5 mg INH RQID BELLE Last Admin: 05/30/18 19:09 Dose: 2.5 mg Albuterol Sulfate (Albuterol 0.083% Inhal Chantale (2.5 Mg/3 Ml) Ud) 2.5 mg INH RQ4 PRN PRN Reason: Shortness of Breath Last Admin: 05/30/18 00:25 Dose: 2.5 mg Dimethicone (Proshield Plus Skin Protectant) 1 applic TOP Q8 BELLE Last Admin: 05/30/18 16:25 Dose: 1 applic Furosemide (Lasix) 40 mg IVP BID BELLE Last Admin: 05/30/18 16:25 Dose: 40 mg Vancomycin HCl 500 mg/ Sodium (Chloride) 100 mls @ 100 mls/hr IVPB Q12 BELLE; Protocol Last Admin: 05/30/18 20:07 Dose: Not Given Meropenem 1 gm/ Sodium (Chloride) 100 mls @ 100 mls/hr IVPB Q12 BELLE; Protocol Last Admin: 05/30/18 21:09 Dose: 100 mls/hr Lactulose (Enulose) 20 gm PO DAILY PRN PRN Reason: Constipation Last Admin: 05/29/18 18:39 Dose: 20 gm Levetiracetam (Keppra) 500 mg PO BID BELLE Last Admin: 05/30/18 16:24 Dose: 500 mg Morphine Sulfate (Morphine) 2 mg IVP Q6 PRN PRN Reason: Pain, moderate (4-7) Last Admin: 05/30/18 14:35 Dose: 2 mg Pantoprazole Sodium (Protonix Inj) 40 mg IVP DAILY BELLE Last Admin: 05/30/18 08:12 Dose: 40 mg - Labs Labs: 05/30/18 04:30 05/30/18 04:30 PT 20.0 Seconds (9.8-13.1) H 05/20/18 13:00 INR 1.8 05/20/18 13:00 APTT 30.8 Seconds (25.6-37.1) 05/20/18 13:00 Assessment and Plan (1) CHF (congestive heart failure) Status: Acute (2) Sepsis Status: Acute (3) Encephalopathy acute Status: Acute (4) HTN (hypertension) Status: Acute Attending/Attestation - Attestation I have personally seen and examined this patient.: Yes I have fully participated in the care of the patient.: Yes I have reviewed all pertinent clinical information, including history, physical exam and plan: Yes Notes (Text): 05/30/18 23:35 hold coreg for now due to sepsis cont IV abx and IV fluid management
--- NOTE | 2018-05-29 11:15 | CP.PCM.PN ---
Subjective - Date & Time of Evaluation Date of Evaluation: 05/29/18 Time of Evaluation: 11:15 - Subjective Subjective: ID note- Shannonn seen and examined today in ICU. pt. remains on the ventimask for oxygenation. She does open her eyes when her name is called and moans but does not answer any questions. Objective - Vital Signs/Intake and Output Vital Signs (last 24 hours): Temp Pulse Resp BP Pulse Ox 98.0 F 110 H 31 H 113/50 L 95 05/29/18 08:00 05/29/18 10:00 05/29/18 10:00 05/29/18 10:00 05/29/18 10:00 Intake and Output: 05/29/18 05/29/18 06:59 18:59 Intake Total 1000 600 Output Total 800 Balance 200 600 - Medications Medications: Current Medications Albuterol/Ipratropium (Duoneb 3 Mg/0.5 Mg (3 Ml) Ud) 3 ml INH RQ6 PRN PRN Reason: Shortness of Breath Last Admin: 05/24/18 05:53 Dose: 3 ml Dimethicone (Proshield Plus Skin Protectant) 1 applic TOP Q8 BELLE Last Admin: 05/29/18 08:11 Dose: 1 applic Furosemide (Lasix) 40 mg IVP BID BELLE Last Admin: 05/29/18 08:09 Dose: 40 mg Clindamycin Phosphate (Cleocin) 600 mg in 50 mls @ 50 mls/hr IVPB Q8 BELLE; Protocol Last Admin: 05/29/18 08:07 Dose: 50 mls/hr Vancomycin HCl 500 mg/ Sodium (Chloride) 100 mls @ 100 mls/hr IVPB Q12 BELLE; Protocol Last Admin: 05/29/18 08:12 Dose: 100 mls/hr Meropenem 1 gm/ Sodium (Chloride) 100 mls @ 100 mls/hr IVPB Q8@0400,1200,2000 BELLE; Protocol Last Admin: 05/29/18 04:45 Dose: 100 mls/hr Potassium Chloride (Potassium Chloride 20 Meq/100 Ml) 100 mls @ 50 mls/hr IVPB Q2 BELLE Stop: 05/29/18 11:59 Last Admin: 05/29/18 10:27 Dose: 50 mls/hr Lactulose (Enulose) 20 gm PO DAILY PRN PRN Reason: Constipation Levetiracetam (Keppra) 500 mg PO BID BELLE Last Admin: 05/29/18 08:09 Dose: 500 mg Morphine Sulfate (Morphine) 2 mg IVP Q6 PRN PRN Reason: Pain, moderate (4-7) Last Admin: 05/29/18 10:30 Dose: 2 mg - Labs Labs: - Additional Findings Additional findings: - Constitutional Appears: Chronically Ill Additional comments: nonverbal, lethargic - Head Exam Head Exam: ATRAUMATIC - ENT Exam Additional comments: dry oral mucosa - Neck Exam Neck exam: Positive for: Full Rom - Respiratory Exam Additional comments: no wheezing decreased breath sounds at right base - Cardiovascular Exam Cardiovascular Exam: RRR, +S1, +S2 - GI/Abdominal Exam GI & Abdominal Exam: Normal Bowel Sounds, Soft Additional comments: NT, ND - Extremities Exam Additional comments: right femur surgical site with steri -strips in place clean/dry/Intact no erythema has left great toe small ulcer at the tip , no discharge, no open wound - Neurological Exam Neurological exam: Altered but more awake today - Skin Additional comments: mid sacral stage 4 decub, no discharge mid upper back 2 smaller uleartions one stage 2 with eschar and the superior one stage 1, no opening Laboratory Results - last 72 hr 05/26/18 05/27/18 05/27/18 14:56 04:30 04:30 WBC 6.9 RBC 3.01 L Hgb 8.7 L Hct 27.1 L MCV 90.2 MCH 28.8 MCHC 32.0 L RDW 17.0 H Plt Count 101 L MPV Neut % (Auto) Lymph % (Auto) [place] % (Auto) Eos % (Auto) Baso % (Auto) Neut # (Auto) Lymph # (Auto) [place] # (Auto) Eos # (Auto) Baso # (Auto) Neutrophils % (Manual) Band Neutrophils % Lymphocytes % (Manual) Monocytes % (Manual) Eosinophils % (Manual) Metamyelocytes % Myelocytes % Platelet Estimate Hypochromasia (manual) Poikilocytosis (manual Anisocytosis (manual) Michelle Cells pCO2 pO2 HCO3 ABG pH ABG Total CO2 ABG O2 Saturation ABG O2 Content ABG Base Excess ABG Hemoglobin ABG Carboxyhemoglobin POC ABG HHb (Measured) ABG Methemoglobin ABG O2 Capacity Oswaldo Test A-a O2 Difference Hgb O2 Saturation FiO2 Crit Value Called To Crit Value Called By Crit Value Read Back Blood Gas Notified Time Sodium 140 136 Potassium 4.1 4.3 Chloride 102 100 Carbon Dioxide 36 H 31 H Anion Gap 6 L 9 L BUN 8 9 Creatinine 0.3 L 0.2 L Est GFR ( Amer) > 60 > 60 Est GFR (Non-Af Amer) > 60 > 60 Random Glucose 148 H 225 H Calcium 7.6 L 7.4 L Phosphorus 2.4 L Magnesium 1.9 Ur L.pneumophila Ag Mycoplasma pneumon IgM 05/28/18 05/28/18 05/28/18 04:26 04:26 04:26 WBC 6.0 RBC 3.18 L Hgb 9.1 L Hct 28.2 L MCV 88.7 MCH 28.8 MCHC 32.5 L RDW 16.8 H Plt Count 122 L D MPV 12.5 H Neut % (Auto) 87.0 H Lymph % (Auto) 4.5 L [place] % (Auto) 7.7 Eos % (Auto) 0.6 Baso % (Auto) 0.2 Neut # (Auto) 5.2 Lymph # (Auto) 0.3 L [place] # (Auto) 0.5 Eos # (Auto) 0.0 Baso # (Auto) 0.0 Neutrophils % (Manual) 85 H Band Neutrophils % Lymphocytes % (Manual) 9 L Monocytes % (Manual) 4 Eosinophils % (Manual) Metamyelocytes % 1 H Myelocytes % 1 H Platelet Estimate Decreased L Hypochromasia (manual) Slight Poikilocytosis (manual Anisocytosis (manual) Slight [place] Cells Slight pCO2 pO2 HCO3 ABG pH ABG Total CO2 ABG O2 Saturation ABG O2 Content ABG Base Excess ABG Hemoglobin ABG Carboxyhemoglobin POC ABG HHb (Measured) ABG Methemoglobin ABG O2 Capacity Oswaldo Test A-a O2 Difference Hgb O2 Saturation FiO2 Crit Value Called To Crit Value Called By Crit Value Read Back Blood Gas Notified Time Sodium 136 Potassium 3.6 Chloride 96 L Carbon Dioxide 36 H Anion Gap 8 L BUN 11 Creatinine 0.3 L Est GFR ( Amer) > 60 Est GFR (Non-Af Amer) > 60 Random Glucose 230 H Calcium 7.9 L Phosphorus Magnesium Ur L.pneumophila Ag Mycoplasma pneumon IgM Negative 05/28/18 05/29/18 05/29/18 04:35 04:30 04:30 WBC 7.1 RBC 2.97 L Hgb 8.4 L Hct 26.3 L MCV 88.6 MCH 28.3 MCHC 32.0 L RDW 16.8 H Plt Count 122 L MPV 12.0 H Neut % (Auto) 90.7 H Lymph % (Auto) 3.0 L [place] % (Auto) 6.1 Eos % (Auto) 0.2 Baso % (Auto) 0.0 Neut # (Auto) 6.4 Lymph # (Auto) 0.2 L [place] # (Auto) 0.4 Eos # (Auto) 0.0 Baso # (Auto) 0.0 Neutrophils % (Manual) 80 H Band Neutrophils % 9 H Lymphocytes % (Manual) 2 L Monocytes % (Manual) 7 Eosinophils % (Manual) 1 Metamyelocytes % 1 H Myelocytes % Platelet Estimate Slightly decreased L Hypochromasia (manual) Poikilocytosis (manual Slight Anisocytosis (manual) Slight [place] Cells pCO2 pO2 HCO3 ABG pH ABG Total CO2 ABG O2 Saturation ABG O2 Content ABG Base Excess ABG Hemoglobin ABG Carboxyhemoglobin POC ABG HHb (Measured) ABG Methemoglobin ABG O2 Capacity Oswaldo Test A-a O2 Difference Hgb O2 Saturation FiO2 Crit Value Called To Crit Value Called By Crit Value Read Back Blood Gas Notified Time Sodium 136 Potassium 2.8 L Chloride 85 L Carbon Dioxide 44 H* D Anion Gap 10 BUN 12 Creatinine 0.3 L Est GFR ( Amer) > 60 Est GFR (Non-Af Amer) > 60 Random Glucose 208 H Calcium 8.0 L Phosphorus Magnesium Ur L.pneumophila Ag Negative Mycoplasma pneumon IgM 05/29/18 05:17 WBC RBC Hgb Hct MCV MCH MCHC RDW Plt Count MPV Neut % (Auto) Lymph % (Auto) [place] % (Auto) Eos % (Auto) Baso % (Auto) Neut # (Auto) Lymph # (Auto) [place] # (Auto) Eos # (Auto) Baso # (Auto) Neutrophils % (Manual) Band Neutrophils % Lymphocytes % (Manual) Monocytes % (Manual) Eosinophils % (Manual) Metamyelocytes % Myelocytes % Platelet Estimate Hypochromasia (manual) Poikilocytosis (manual Anisocytosis (manual) [place] Cells pCO2 62 H pO2 247 H HCO3 44.3 H* ABG pH 7.52 H ABG Total CO2 52.5 H ABG O2 Saturation 99.7 H ABG O2 Content 12.7 L ABG Base Excess 24.8 H ABG Hemoglobin 8.7 L ABG Carboxyhemoglobin 0.4 L POC ABG HHb (Measured) 0.3 ABG Methemoglobin 1.1 ABG O2 Capacity 12.7 L Oswaldo Test Yes A-a O2 Difference 389.0 Hgb O2 Saturation 98.2 H FiO2 100.0 Crit Value Called To Jason silvestre rn Crit Value Called By 302 Crit Value Read Back Y Blood Gas Notified Time 533 Sodium Potassium Chloride Carbon Dioxide Anion Gap BUN Creatinine Est GFR ( Amer) Est GFR (Non-Af Amer) Random Glucose Calcium Phosphorus Magnesium Ur L.pneumophila Ag Mycoplasma pneumon IgM Microbiology 05/27/18 16:08 Sputum Gram Stain - Final 05/27/18 16:08 Sputum Sputum Culture - Final Escherichia Coli 05/25/18 16:35 Blood-Venous Blood Culture - Preliminary NO GROWTH AFTER 3 DAYS 05/25/18 16:25 Blood-Venous Blood Culture - Preliminary NO GROWTH AFTER 3 DAYS 05/26/18 06:30 Urine,Baeza Urine Culture - Final Escherichia Coli 05/21/18 09:10 Blood-Venous Blood Culture - Final NO GROWTH AFTER 5 DAYS 05/21/18 09:10 Blood-Venous Gram Stain - Final TEST NOT PERFORMED 05/20/18 13:00 Blood Blood Culture - Final NO GROWTH AFTER 5 DAYS 05/20/18 13:00 Blood Gram Stain - Final TEST NOT PERFORMED 05/20/18 17:43 Nose MRSA Culture (Admit) - Final MRSA NOT DETECTED 05/20/18 13:34 Urine,Baeza Urine Culture - Final Enterococcus Faecalis Assessment and Plan (1) Altered mental status Status: Acute (2) Decubitus ulcer of sacral area Status: Acute (3) Deep tissue injury Status: Acute (4) Hx of fracture of femur Status: Chronic (5) Seizure disorder Status: Chronic - Assessment and Plan (Free Text) Assessment: A/P 83 year old female with multiple medical conditions icnluding CAD, Dementia, COPD, recent right femur ORIF admitted form [place] for AMS and fever. pt. has been afebrile since admission. mild leukocytosis has resolved. UA- negative, urine cx- E.fecalis ( could eb contaminant ) since the UA from same day negative. repeat UA from new baeza 05/26/2018- Negative urine cx 05/26/2018- ESBL e.coli sputum cx- reported as ESBL e.coli as well Blood cx- neg x 3 CXR as per report ? right basilar infiltrate , could be secondary to aspiration. PLan- advise to continue with IV vanco for sacral wound empiric treatment along with recommendation of wound care team. keep trough <15. wound consult f/u recommendations. advise to monitor aspiration precautions as well. advise to d/c levaquin and clindamycin at this time. advise to start patietn on renal dose meropnem to treat the ESBL e.coli sputumcx. the urine cx is most likely colonization as the corroborating UA is negative from same specimen. Hence meropnem is being started to treat the e.coli sputum cx and pneumonia. advised nurse to monitor carefully for any allergic signs such as rash or itching or etc. Critical care time spent 45 minutes.
--- NOTE | 2018-05-29 12:16 | CP.PCM.PN ---
Subjective - Date & Time of Evaluation Date of Evaluation: 05/29/18 Time of Evaluation: 12:16 - Subjective Subjective: Neurology Follow-Up Note: Mrs. Laureano was evaluated this morning at bedside in the ICU. Pt remains nonverbal and unable to answer questions or follow commands. Chart reviewed. ROS unobtainable from pt 2/2 her current condition. Objective - Vital Signs/Intake and Output Vital Signs (last 24 hours): Temp Pulse Resp BP Pulse Ox 97.8 F 107 H 20 99/49 L 96 05/29/18 12:00 05/29/18 12:00 05/29/18 12:00 05/29/18 12:00 05/29/18 12:00 Intake and Output: 05/29/18 05/29/18 06:59 18:59 Intake Total 1000 672 Output Total 800 Balance 200 672 - Medications Medications: Current Medications Albuterol/Ipratropium (Duoneb 3 Mg/0.5 Mg (3 Ml) Ud) 3 ml INH RQ6 PRN PRN Reason: Shortness of Breath Last Admin: 05/24/18 05:53 Dose: 3 ml Dimethicone (Proshield Plus Skin Protectant) 1 applic TOP Q8 BELLE Last Admin: 05/29/18 08:11 Dose: 1 applic Furosemide (Lasix) 40 mg IVP BID BELLE Last Admin: 05/29/18 08:09 Dose: 40 mg Clindamycin Phosphate (Cleocin) 600 mg in 50 mls @ 50 mls/hr IVPB Q8 BELLE; Protocol Last Admin: 05/29/18 08:07 Dose: 50 mls/hr Vancomycin HCl 500 mg/ Sodium (Chloride) 100 mls @ 100 mls/hr IVPB Q12 BELLE; Protocol Last Admin: 05/29/18 08:12 Dose: 100 mls/hr Meropenem 1 gm/ Sodium (Chloride) 100 mls @ 100 mls/hr IVPB Q8@0400,1200,2000 BELLE; Protocol Last Admin: 05/29/18 04:45 Dose: 100 mls/hr Lactulose (Enulose) 20 gm PO DAILY PRN PRN Reason: Constipation Levetiracetam (Keppra) 500 mg PO BID BELLE Last Admin: 05/29/18 08:09 Dose: 500 mg Morphine Sulfate (Morphine) 2 mg IVP Q6 PRN PRN Reason: Pain, moderate (4-7) Last Admin: 05/29/18 10:30 Dose: 2 mg - Labs Labs: 05/29/18 04:30 05/29/18 04:30 PT 20.0 Seconds (9.8-13.1) H 05/20/18 13:00 INR 1.8 05/20/18 13:00 APTT 30.8 Seconds (25.6-37.1) 05/20/18 13:00 - Constitutional Appears: Other (moans during exam; pt is nonverbal) - Head Exam Head Exam: ATRAUMATIC, NORMAL INSPECTION, NORMOCEPHALIC - Eye Exam Eye Exam: EOMI. absent: Nystagmus Pupil Exam: NORMAL ACCOMODATION, PERRL Additional comments: opens eyes spontaneously - ENT Exam ENT Exam: Mucous Membranes Moist - Neck Exam Neck Exam: Normal Inspection - Respiratory Exam Respiratory Exam: absent: NORMAL BREATHING PATTERN Additional comments: tachypneic, venti mask on - Cardiovascular Exam Cardiovascular Exam: Tachycardia (hr 103) - GI/Abdominal Exam GI & Abdominal Exam: Soft Additional comments: ngt in place w feedings - Exam Additional comments: baeza cath in place - Extremities Exam Additional comments: edema noted to hands slight movement of arms to sternal rub, not legs +resistance and tone noted to BUE - Neurological Exam Neurological Exam: Altered. absent: Alert, Normal Gait, Oriented x3 Additional comments: Pt is still nonverbal and moans on occasion during exam. She is still lethargic today but arousable to sternal rub (grimaces and opens eyes). Unable to follow commands. BUE +resistance and tone noted; BUE fall immediately to bed when raised, no resistance noted. No tremors noted. Toes down-going b/l. Unable to assess sensation 2/2 pt nonverbal and not following commands. - Psychiatric Exam Additional comments: nonverbal, moans during exam Assessment and Plan (1) Toxic metabolic encephalopathy Assessment & Plan: Imaging reviewed: -EEG (05/22/18): This is an abnormal EEG record that demonstrate the presence of a mild to moderate non specific diffuse disturbance of cortical activity, this is in keeping with a diffuse way matter dysfunction. These findings do not support a specific etiology. 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 No seizures were captured. -CT head (05/20/18): No acute intracranial pathology. Age-related changes. Mild sphenoid sinus disease. No significant interval change. -Likely 2/2 to infection and electrolyte imbalance -Continue current treatment and management of infectious process and electrolyte imbalance. -Lamotrigine level resulted and noted to be low based on the levels provide by the lab (0.6 mcg/ml, see result) -Continue Keppra as ordered as the pt seems to be tolerating. -Notify neuro team of any acute changes in pt's condition. Case discussed with Dr. Rizvi Status: Acute
--- NOTE | 2018-05-29 13:25 | CP.PCM.PN ---
Subjective - Date & Time of Evaluation Date of Evaluation: 05/29/18 Time of Evaluation: 11:20 - Subjective Subjective: F/U AMS moaning, minimal response to tactil stimuli, on V Mask 50% Objective - Vital Signs/Intake and Output Vital Signs (last 24 hours): Temp Pulse Resp BP Pulse Ox 97.8 F 107 H 20 99/49 L 96 05/29/18 12:00 05/29/18 12:00 05/29/18 12:00 05/29/18 12:00 05/29/18 12:00 Intake and Output: 05/29/18 05/29/18 06:59 18:59 Intake Total 1000 1152 Output Total 800 120 Balance 200 1032 - Medications Medications: Current Medications Albuterol/Ipratropium (Duoneb 3 Mg/0.5 Mg (3 Ml) Ud) 3 ml INH RQ6 PRN PRN Reason: Shortness of Breath Last Admin: 05/24/18 05:53 Dose: 3 ml Dimethicone (Proshield Plus Skin Protectant) 1 applic TOP Q8 BELLE Last Admin: 05/29/18 08:11 Dose: 1 applic Furosemide (Lasix) 40 mg IVP BID BELLE Last Admin: 05/29/18 08:09 Dose: 40 mg Vancomycin HCl 500 mg/ Sodium (Chloride) 100 mls @ 100 mls/hr IVPB Q12 BELLE; Protocol Last Admin: 05/29/18 08:12 Dose: 100 mls/hr Meropenem 1 gm/ Sodium (Chloride) 100 mls @ 100 mls/hr IVPB Q12 BELLE; Protocol Lactulose (Enulose) 20 gm PO DAILY PRN PRN Reason: Constipation Levetiracetam (Keppra) 500 mg PO BID [facility] Last Admin: 05/29/18 08:09 Dose: 500 mg Metoprolol Succinate (Toprol Xl) 12.5 mg PO DAILY BELLE Morphine Sulfate (Morphine) 2 mg IVP Q6 PRN PRN Reason: Pain, moderate (4-7) Last Admin: 05/29/18 10:30 Dose: 2 mg - Labs Labs: 05/29/18 04:30 05/29/18 04:30 PT 20.0 Seconds (9.8-13.1) H 05/20/18 13:00 INR 1.8 05/20/18 13:00 APTT 30.8 Seconds (25.6-37.1) 05/20/18 13:00 - Constitutional Appears: Chronically Ill - Head Exam Head Exam: NORMAL INSPECTION - Eye Exam Additional comments: Pupils sluggish reactive - ENT Exam Additional comments: NGT, V Mask 50% - Neck Exam Neck Exam: Normal Inspection - Respiratory Exam Respiratory Exam: Decreased Breath Sounds (at bases), Rhonchi (scattered) - Cardiovascular Exam Cardiovascular Exam: Tachycardia - GI/Abdominal Exam GI & Abdominal Exam: Soft, Normal Bowel Sounds - Exam Additional comments: De La Cruz Cath - Extremities Exam Additional comments: L heel DTI improving., R Hip surgical incision healing well, R TLC - Back Exam Additional comments: L-S decubitus stage IV. Upper back DTI improving. - Neurological Exam Additional comments: Lethargic, moaning, minimal response to tactile stimuli - Skin Skin Exam: Warm Assessment and Plan (1) CHF (congestive heart failure) Status: Acute (2) Aspiration pneumonia Status: Acute (3) Sepsis Status: Acute (4) Toxic metabolic encephalopathy Status: Acute (5) Altered mental status Status: Acute (6) UTI (urinary tract infection) Status: Acute (7) Dehydration Status: Resolved (8) Hypernatremia Status: Resolved (9) Decubitus ulcer of sacral area Status: Acute (10) Deep tissue injury Status: Acute (11) Chronic back pain Status: Chronic (12) Hx of fracture of femur Status: Chronic (13) HTN (hypertension) Status: Acute (14) COPD (chronic obstructive pulmonary disease) Status: Chronic (15) Hx of congestive heart failure Status: Chronic (16) Seizure disorder Status: Chronic - Assessment and Plan (Free Text) Plan: continue Merren, Vanco, , DuoNeb, Keppra, Lasix, Morphine, Proshield, attempt to get consent for PEG, prognosis poor Critical care time: 35 min.
--- NOTE | 2018-05-29 16:02 | PN ---
DATE: 05/29/2018 LOCATION: The patient in ICU, bed 424. TIME SPENT: 35 minutes. SUBJECTIVE: The patient is seen and evaluated at the bedside. Case discussed in multidisciplinary ICU rounds this morning. PAST MEDICAL HISTORY: Reviewed. PAST SURGICAL HISTORY: Reviewed. SOCIAL HISTORY: Reviewed. An 83-year-old female jail resident with multiple medical conditions including dementia, chronic obstructive pulmonary disease, coronary artery disease , status post recent right femur ORIF, admitted for altered mental status and fever. Noted to have E. coli infection in the urine and sputum. Overnight afebrile. Telemetry sinus rhythm normal x3. On oxygen supplement through Ventimask saturating over 94%. PHYSICAL EXAMINATION: VITAL SIGNS: Temperature 98, heart rate 98 to 110 regular, blood pressure 113/50, mean arterial pressure of 71, pulse oximetry 95%, respiratory rate 27 to 31. Intake 2130 and output 3300. Negative balance 170. Urine output 2300. HEAD, EYES, EARS, NOSE, AND THROAT: Pupils are reactive. Conjunctivae pink. Sclerae white. NECK: Supple. Trachea is central. CHEST: Bilateral breath sounds. Diminished in intensity. Clear to auscultation anteriorly and laterally. HEART: Rhythm regular. S1 and S2 normal. ABDOMEN: Bowel sounds present and soft. EXTREMITIES: Surgical site on the right femur. ORIF with Steri-Strips in place, clean, dry, and no erythema or discharge. Small ulcer at the tip of her left discharge. SKIN: Stage IV decubitus, mid sacral area without discharge, mild upper back two small ulcerations; one stage II with eschar and the superior one stage I now opening. DP is palpable reduced in intensity. NEUROLOGIC: Slow to respond. CURRENT MEDICATIONS: Albuterol Atrovent inhalation 3 mL via nebulizer every 6 hours p.r.n., meropenem 1 g IV every 8 hours, clindamycin 600 mg IV every 8 hours, vancomycin 500 mg IV every 12 hours, dimethicone Proshield Plus skin protectant one application topically every 8 hours, Lasix 40 IV b.i.d., Lactulose 20 g p.o. daily, Keppra 500 mg p.o. twice daily, morphine sulfate 2 mg IV every 6 hours p.r.n. for moderate pain, potassium supplement. LABORATORY DATA: WBC 7.1, hemoglobin 8.4, hematocrit 26.3, MCV 88.6, platelet count 122, neutrophils 90.7, lymphocytes 3, monocytes 6.1. ABG: PH of 7.52, PCO2 of 62, PO2 of 247. On FiO2 both 100%. SMA-7: Sodium 136, potassium 2.8, chloride 85, CO2 of 44, BUN 12, creatinine 0.3, random glucose 208. Urinalysis, leuko esterase negative, wbc 15. Toxicology, vanco trough level 8.2. Lamotrigine 0.6 mcg/mL. Serology: Mycoplasma pneumoniae negative. Influenza A and B negative. Microbiology: Sputum culture positive for E. coli. Urine culture positive for E. coli. Blood cultures are negative. IMPRESSION: NEURO: Altered mental status secondary to septic metabolic encephalopathy. PULMONARY: Hypoxic respiratory insufficiency. CARDIAC: Normotensive. Telemetry sinus rhythm. INFECTIOUS DISEASE: Sepsis secondary to urinary tract infection. Sputum positive for Escherichia coli on vancomycin, clindamycin, and meropenem. ENDOCRINOLOGY: Hyperglycemia. Maintain blood sugar in the low 90 to 110 range. GASTROINTESTINAL: Mildly elevated liver enzymes. Total bilirubin normal. Keep the head of bed 30 degrees up. Continue local wound care. Continue feeding with Jevity at 40 mL an hour. Appreciate nutritional lactation consultant and followup. Joseph Mary MD
--- NOTE | 2018-05-29 16:51 | CP.PCM.PN ---
Subjective - Date & Time of Evaluation Date of Evaluation: 05/29/18 Time of Evaluation: 16:50 - Subjective Subjective: no overnight events Objective - Vital Signs/Intake and Output Vital Signs (last 24 hours): Temp Pulse Resp BP Pulse Ox 97.6 F 106 H 28 H 124/52 L 95 05/29/18 16:00 05/29/18 16:00 05/29/18 16:00 05/29/18 16:16 05/29/18 16:00 Intake and Output: 05/29/18 05/29/18 06:59 18:59 Intake Total 1000 1152 Output Total 800 120 Balance 200 1032 - Medications Medications: Current Medications Albuterol/Ipratropium (Duoneb 3 Mg/0.5 Mg (3 Ml) Ud) 3 ml INH RQ6 PRN PRN Reason: Shortness of Breath Last Admin: 05/24/18 05:53 Dose: 3 ml Dimethicone (Proshield Plus Skin Protectant) 1 applic TOP Q8 BELLE Last Admin: 05/29/18 16:16 Dose: 1 applic Furosemide (Lasix) 40 mg IVP BID BELLE Last Admin: 05/29/18 16:16 Dose: 40 mg Vancomycin HCl 500 mg/ Sodium (Chloride) 100 mls @ 100 mls/hr IVPB Q12 BELLE; Protocol Last Admin: 05/29/18 08:12 Dose: 100 mls/hr Meropenem 1 gm/ Sodium (Chloride) 100 mls @ 100 mls/hr IVPB Q12 BELLE; Protocol Lactulose (Enulose) 20 gm PO DAILY PRN PRN Reason: Constipation Levetiracetam (Keppra) 500 mg PO BID BELLE Last Admin: 05/29/18 16:15 Dose: 500 mg Morphine Sulfate (Morphine) 2 mg IVP Q6 PRN PRN Reason: Pain, moderate (4-7) Last Admin: 05/29/18 16:18 Dose: 2 mg - Labs Labs: 05/29/18 04:30 05/29/18 04:30 PT 20.0 Seconds (9.8-13.1) H 05/20/18 13:00 INR 1.8 05/20/18 13:00 APTT 30.8 Seconds (25.6-37.1) 05/20/18 13:00 - Head Exam Head Exam: NORMOCEPHALIC - Respiratory Exam Respiratory Exam: Rhonchi, NORMAL BREATHING PATTERN - Cardiovascular Exam Cardiovascular Exam: REGULAR RHYTHM - GI/Abdominal Exam GI & Abdominal Exam: Soft, Normal Bowel Sounds Assessment and Plan - Assessment and Plan (Free Text) Assessment: 83 yo female with sepsis will need peg once more clinically stable respiratory support
[2018-05-29] MEDS ORDERED: Albuterol 0.083% Inhal Sol (2.5 mg/3 mL) UD INH PRN (17:23)
--- NOTE | 2018-05-29 19:00 | CP.PCM.PN ---
Subjective - Date & Time of Evaluation Date of Evaluation: 05/29/18 Time of Evaluation: 18:58 - Subjective Subjective: Patient seen on wound care follow up breathing is more labored wound is stable but perhaps further maceration I would hold off on the cushioned foam dressing and just pack with betadine soaked gauze and apply proshield to the periwound and cover with gauze and paper tape remains on Clinitron bed Objective - Vital Signs/Intake and Output Vital Signs (last 24 hours): Temp Pulse Resp BP Pulse Ox 97.6 F 108 H 24 117/52 L 100 05/29/18 16:00 05/29/18 18:00 05/29/18 18:00 05/29/18 18:00 05/29/18 18:00 Intake and Output: 05/29/18 05/29/18 06:59 18:59 Intake Total 1000 1302 Output Total 800 145 Balance 200 1157 - Medications Medications: Current Medications Albuterol Sulfate (Albuterol 0.083% Inhal Chantale (2.5 Mg/3 Ml) Ud) 2.5 mg INH RQID BELLE Albuterol Sulfate (Albuterol 0.083% Inhal Chantale (2.5 Mg/3 Ml) Ud) 2.5 mg INH RQ4 PRN PRN Reason: Shortness of Breath Dimethicone (Proshield Plus Skin Protectant) 1 applic TOP Q8 BELLE Last Admin: 05/29/18 16:16 Dose: 1 applic Furosemide (Lasix) 40 mg IVP BID BELLE Last Admin: 05/29/18 16:16 Dose: 40 mg Vancomycin HCl 500 mg/ Sodium (Chloride) 100 mls @ 100 mls/hr IVPB Q12 BELLE; Protocol Last Admin: 05/29/18 08:12 Dose: 100 mls/hr Meropenem 1 gm/ Sodium (Chloride) 100 mls @ 100 mls/hr IVPB Q12 BELLE; Protocol Lactulose (Enulose) 20 gm PO DAILY PRN PRN Reason: Constipation Last Admin: 05/29/18 18:39 Dose: 20 gm Levetiracetam (Keppra) 500 mg PO BID BELLE Last Admin: 05/29/18 16:15 Dose: 500 mg Morphine Sulfate (Morphine) 2 mg IVP Q6 PRN PRN Reason: Pain, moderate (4-7) Last Admin: 05/29/18 16:18 Dose: 2 mg Pantoprazole Sodium (Protonix Inj) 40 mg IVP DAILY BELLE - Labs Labs: 05/29/18 04:30 05/29/18 04:30 PT 20.0 Seconds (9.8-13.1) H 05/20/18 13:00 INR 1.8 05/20/18 13:00 APTT 30.8 Seconds (25.6-37.1) 05/20/18 13:00
[2018-05-29] MEDS: Meropenem 1 GM in Sodium Chloride 0.9% 100 ML IVPB SCH (20:16)
[2018-05-30] MEDS: Proshield Plus GEL TOP SCH ×3 (01:00→16:25)
[2018-05-30 05:34] LABS: HEMOGLOBIN 9.5 g/dL (12.0-16.0); MEAN CELL VOLUME 87.8 fl (81.0-99.0); MEAN CORPUSCULAR HEMOGLOBIN 28.4 pg (27.0-31.0); MEAN CORPUSCULAR HGB CONC 32.3 g/dL (33.0-37.0); RBC 3.37 Mil/uL (3.80-5.20); RED CELL DISTRIBUTION WIDTH 16.8 % (11.5-14.5); WHITE BLOOD COUNT 13.8 K/uL (4.8-10.8)
[2018-05-30 05:49] LABS: ALB/GLOB RATIO 0.8 (1.0-2.1); ALBUMIN 2.5 g/dL (3.5-5.0); ALT/SGPT 20 U/L (9-52); AST/SGOT 21 U/L (14-36); BLOOD UREA NITROGEN 15 mg/dl (7-17); CALCIUM 8.3 mg/dL (8.4-10.2); GFR NON-AFRICAN AMERICAN > 60
[2018-05-30] MEDS: Albuterol 0.083% Inhal Sol (2.5 mg/3 mL) UD INH SCH ×4 (07:53→19:09)
[2018-05-30] MEDS: levETIRAcetam 100 mg/ml (5ml) Oral Syringe PO SCH ×2 (08:10→16:24)
[2018-05-30] MEDS: Meropenem 1 GM in Sodium Chloride 0.9% 100 ML IVPB SCH ×2 (08:12→21:09)
[2018-05-30] MEDS ORDERED: Metoprolol Succinate 25 mg XL Tab PO SCH (09:00)
--- NOTE | 2018-05-30 11:17 | CP.CCUPN ---
CCU Subjective - Physician Review Subjective (Free Text): 05/30/18 The patient was Seen and examined by me at the bedside, Medical records reviewed and Management issues were discussed and formulated with the house staff. Events reviewed Mrs Laureano is a 83 Years old Female with PMHx of HTN, Hypercholesterolemia, CHF, COPD, Osteoporosis, Seizures, Anemia, Anxiety, Arthritis (poly), Asthma, Back Problems, Dementia, Depression and Fractures (L wrist , comp Fx T Spine) Patient is also S/P ORIF displaced distal 1/3 femur fx. knee arthrotomy. repair lateral ligfament (knee) on 04/19 for malunion fx distal 1/3 femur fx Who initially presents to Emergency department on 05/20 from [facility] for AMS. Per report more somnolent and now possible fever. No reports vomiting, diarrhea or recent seizures. She was admitted to the ICU with AMS, lethargy, R/O CVA, hypernatremia, dehydration and fever/Sepsis Head CT scan 05/20 was negative for any acute intracranial pathology, no bleed, mass or edema 05/22 right thigh Staple sutures removed by Dr. Mccrary Today she is lethargy, slightly Less awake, intermittently follows some simple commands Comfortable, NAD No Vasopressors Afebrile, On Antibiotics with IV Vancomycin and Meropenem (Urine C/S Pos paan sensertive Enterococcus Faecalis) NSR/Sinus Ho at 50s on the monitor Last 24H I&O 2150/995 Patient failed Swallow evaluation, NG tube placed, Started on tube feeding and free water flush yesterday, Tolerating This morning labs revealed Leucocytosis 13.8, Stable renal function BUN/Cr Hypokalemia 3.4, improved to 3.6, K suplemented Hypernatremia improved to 138 ABG yesterday 7.52/62/247/44/99% 05/23/18, Patient seen by roller stitcher yesterday, the following wounds was evaluated and recommendations followed including wound care consult Suture line clean and intact Sacral stage 4 with Undermining all borders Left heel eschar Posteriorheel linear DTI on the right leg Right lateralnoted calf DTI CCU Objective - Vital Signs / Intake & Output Vital Signs (Last 4 hours): Vital Signs Temp Pulse Resp BP Pulse Ox 05/30/18 10:00 118 H 33 H 136/60 100 05/30/18 08:00 98.5 F 117 H 31 H 127/57 L 100 Intake and Output (Last 8hrs): Intake & Output 05/29/18 05/30/18 05/30/18 22:59 06:59 14:59 Intake Total 510 488 370 Output Total 125 750 550 Balance 455 -426 -790 Intake: IV 18 Intake, Piggyback 200 100 Tube Feeding 160 320 120 Free Water Flush 150 150 150 Output: Urine 125 750 550 Urethral (De La Cruz) 125 Urine, Voided 750 550 - Physical Exam Head: Positive for: Atraumatic, Normocephalic Pupils: Positive for: PERRL Conjunctiva: Positive for: Normal Mouth: Positive for: Dry Nose (External): Positive for: Atraumatic Neck: Positive for: Normal Range of Motion. Negative for: MIDLINE TENDERNESS, JVD Respiratory/Chest: Positive for: Rhonchi. Negative for: Respiratory Distress, Accessory Muscle Use, Wheezes Cardiovascular: Positive for: Regular Rate and Rhythm, Normal S1, S2, Peripheal Pulses Present. Negative for: Tachycardic Abdomen: Positive for: Normal Bowel Sounds Upper Extremity: Positive for: Normal Inspection, NORMAL PULSES. Negative for: Edema Lower Extremity: Positive for: Normal Inspection, NORMAL PULSES. Negative for: CALF TENDERNESS Neurological: Positive for: Other (no response to verbal stimuli) Psychiatric: Positive for: Alert. Negative for: Oriented x 3 - Medications Active Medications: Active Medications Generic Name Dose Route Start Last Admin Trade Name Freq PRN Reason Stop Dose Admin Albuterol Sulfate 2.5 mg 05/29/18 20:00 05/30/18 07:53 Albuterol 0.083% Inhal Chantale (2.5 Mg/3 Ml) Ud INH 2.5 mg RQID BELLE Administration Albuterol Sulfate 2.5 mg 05/29/18 17:23 05/30/18 00:25 Albuterol 0.083% Inhal Chantale (2.5 Mg/3 Ml) Ud INH 2.5 mg RQ4 PRN Administration Shortness of Breath Dimethicone 1 applic 05/24/18 01:00 05/30/18 08:12 Proshield Plus Skin Protectant TOP 1 applic Q8 BELLE Administration Furosemide 40 mg 05/28/18 17:00 05/30/18 08:11 Lasix IVP Not Given BID [facility] Vancomycin HCl 500 mg/ Sodium 100 mls @ 100 mls/hr 05/26/18 21:00 05/30/18 10:48 Chloride IVPB Not Given Q12 BELLE Protocol Meropenem 1 gm/ Sodium 100 mls @ 100 mls/hr 05/29/18 21:00 05/30/18 08:12 Chloride IVPB 100 mls/hr Q12 BELLE Administration Protocol Lactulose 20 gm 05/29/18 07:08 05/29/18 18:39 Enulose PO 20 gm DAILY PRN Administration Constipation Levetiracetam 500 mg 05/22/18 17:00 05/30/18 08:10 Keppra PO 500 mg BID BELLE Administration Morphine Sulfate 2 mg 05/28/18 15:02 05/30/18 03:24 Morphine IVP 2 mg Q6 PRN Administration Pain, moderate (4-7) Pantoprazole Sodium 40 mg 05/30/18 09:00 05/30/18 08:12 Protonix Inj IVP 40 mg DAILY BELLE Administration - Patient Studies Lab Studies: Microbiology Studies 05/25/18 16:35 Blood Culture - Preliminary Blood-Venous NO GROWTH AFTER 4 DAYS 05/25/18 16:25 Blood Culture - Preliminary Blood-Venous NO GROWTH AFTER 4 DAYS 05/27/18 16:08 Gram Stain - Final Sputum Sputum Culture - Final Escherichia Coli Lab Studies 05/30/18 05/30/18 05/30/18 Range/Units 04:30 04:30 04:30 WBC 13.8 H D (4.8-10.8) K/uL RBC 3.37 L (3.80-5.20) Mil/uL Hgb 9.5 L (12.0-16.0) g/dL Hct 29.6 L (34.0-47.0) % MCV 87.8 (81.0-99.0) fl MCH 28.4 (27.0-31.0) pg MCHC 32.3 L (33.0-37.0) g/dL RDW 16.8 H (11.5-14.5) % Plt Count 168 (130-400) K/uL Sodium 138 (132-148) mmol/l Potassium 3.4 L (3.6-5.0) MMOL/L Chloride 83 L (98-107) mmol/L Carbon Dioxide 46 H* (22-30) mmol/L Anion Gap 12 (10-20) BUN 15 (7-17) mg/dl Creatinine 0.3 L (0.7-1.2) mg/dl Est GFR ( Amer) > 60 Est GFR (Non-Af Amer) > 60 Random Glucose 192 H (65-105) mg/dL Calcium 8.3 L (8.4-10.2) mg/dL Total Bilirubin 0.5 (0.2-1.3) mg/dl AST 21 (14-36) U/L ALT 20 (9-52) U/L Alkaline Phosphatase 120 (38-126) U/L Total Protein 5.8 L (6.3-8.2) G/DL Albumin 2.5 L (3.5-5.0) g/dL Globulin 3.3 (2.2-3.9) gm/dL Albumin/Globulin Ratio 0.8 L (1.0-2.1) Vancomycin Trough 17.4 H (5.0-10.0) ug/mL Laboratory Results - last 24 hr 05/30/18 05/30/18 05/30/18 04:30 04:30 04:30 WBC 13.8 H D RBC 3.37 L Hgb 9.5 L Hct 29.6 L MCV 87.8 MCH 28.4 MCHC 32.3 L RDW 16.8 H Plt Count 168 Sodium 138 Potassium 3.4 L Chloride 83 L Carbon Dioxide 46 H* Anion Gap 12 BUN 15 Creatinine 0.3 L Est GFR ( Amer) > 60 Est GFR (Non-Af Amer) > 60 Random Glucose 192 H Calcium 8.3 L Total Bilirubin 0.5 AST 21 ALT 20 Alkaline Phosphatase 120 Total Protein 5.8 L Albumin 2.5 L Globulin 3.3 Albumin/Globulin Ratio 0.8 L Vancomycin Trough 17.4 H Fingerstick Blood Sugar Results: 187 Assessment/Plan (1) Toxic metabolic encephalopathy Current Visit: Yes Status: Acute Priority: High Comment: Multifactorial; sepsis, Hypernatremia, dehydrations and uremia Some neurological improvement (2) Acute respiratory failure with hypercapnia Current Visit: Yes Status: Acute Priority: High Comment: Continue with ICU care for hemodynamic and Respiratory monitoring Aggressive pulmonary toilet, chest PT, suctioning Continue Antibiotics Gentle diuresis Nebs (3) Sepsis Current Visit: Yes Status: Acute Priority: High Comment: Blood C/S negative Urine C/S Pos paan sensertive Enterococcus Faecalis Continue Antibiotics with IV Vancomycin and Meropenem (4) Dehydration Current Visit: Yes Status: Resolved Priority: High (5) Hypernatremia Current Visit: Yes Status: Resolved Priority: High (6) Decubitus ulcer of sacral area Current Visit: Yes Status: Acute Priority: High (7) Acute respiratory failure with hypercapnia Current Visit: Yes Status: Acute
--- NOTE | 2018-05-30 11:26 | CP.PCM.PN ---
Subjective - Date & Time of Evaluation Date of Evaluation: 05/30/18 Time of Evaluation: 11:26 - Subjective Subjective: ID Note- Patient seen and examined today in ICU. remains lehargic, tachypneic. only moans. as per nurse has very thick pulmonary secretions. no diarrhea. Objective - Vital Signs/Intake and Output Vital Signs (last 24 hours): Temp Pulse Resp BP Pulse Ox 98.5 F 118 H 33 H 136/60 100 05/30/18 08:00 05/30/18 10:00 05/30/18 10:00 05/30/18 10:00 05/30/18 10:00 Intake and Output: 05/30/18 05/30/18 06:59 18:59 Intake Total 848 370 Output Total 850 550 Balance -2 -180 - Medications Medications: Current Medications Albuterol Sulfate (Albuterol 0.083% Inhal Chantale (2.5 Mg/3 Ml) Ud) 2.5 mg INH RQID BELLE Last Admin: 05/30/18 11:26 Dose: 2.5 mg Albuterol Sulfate (Albuterol 0.083% Inhal Chantale (2.5 Mg/3 Ml) Ud) 2.5 mg INH RQ4 PRN PRN Reason: Shortness of Breath Last Admin: 05/30/18 00:25 Dose: 2.5 mg Dimethicone (Proshield Plus Skin Protectant) 1 applic TOP Q8 BELLE Last Admin: 05/30/18 08:12 Dose: 1 applic Furosemide (Lasix) 40 mg IVP BID BELLE Last Admin: 05/30/18 08:11 Dose: Not Given Vancomycin HCl 500 mg/ Sodium (Chloride) 100 mls @ 100 mls/hr IVPB Q12 BELLE; Protocol Last Admin: 05/30/18 10:48 Dose: Not Given Meropenem 1 gm/ Sodium (Chloride) 100 mls @ 100 mls/hr IVPB Q12 BELLE; Protocol Last Admin: 05/30/18 08:12 Dose: 100 mls/hr Lactulose (Enulose) 20 gm PO DAILY PRN PRN Reason: Constipation Last Admin: 05/29/18 18:39 Dose: 20 gm Levetiracetam (Keppra) 500 mg PO BID BELLE Last Admin: 05/30/18 08:10 Dose: 500 mg Morphine Sulfate (Morphine) 2 mg IVP Q6 PRN PRN Reason: Pain, moderate (4-7) Last Admin: 05/30/18 03:24 Dose: 2 mg Pantoprazole Sodium (Protonix Inj) 40 mg IVP DAILY BELLE Last Admin: 05/30/18 08:12 Dose: 40 mg - Labs Labs: - Additional Findings Additional findings: - Constitutional Appears: Chronically Ill Additional comments: nonverbal, lethargic - Head Exam Head Exam: ATRAUMATIC - ENT Exam Additional comments: dry oral mucosa - Neck Exam Neck exam: Positive for: Full Rom - Respiratory Exam Additional comments: no wheezing decreased breath sounds at right base - Cardiovascular Exam Cardiovascular Exam: RRR, +S1, +S2 - GI/Abdominal Exam GI & Abdominal Exam: Normal Bowel Sounds, Soft Additional comments: NT, ND - Extremities Exam Additional comments: right femur surgical site with steri -strips in place clean/dry/Intact no erythema has left great toe small ulcer at the tip , no discharge, no open wound - Neurological Exam Neurological exam: Altered but more awake today - Skin Additional comments: mid sacral stage 4 decub, no discharge mid upper back 2 smaller uleartions one stage 2 with other one stage 1 Laboratory Results - last 72 hr 05/28/18 05/28/18 05/28/18 04:26 04:26 04:26 WBC 6.0 RBC 3.18 L Hgb 9.1 L Hct 28.2 L MCV 88.7 MCH 28.8 MCHC 32.5 L RDW 16.8 H Plt Count 122 L D MPV 12.5 H Neut % (Auto) 87.0 H Lymph % (Auto) 4.5 L [place] % (Auto) 7.7 Eos % (Auto) 0.6 Baso % (Auto) 0.2 Neut # (Auto) 5.2 Lymph # (Auto) 0.3 L [place] # (Auto) 0.5 Eos # (Auto) 0.0 Baso # (Auto) 0.0 Neutrophils % (Manual) 85 H Band Neutrophils % Lymphocytes % (Manual) 9 L Monocytes % (Manual) 4 Eosinophils % (Manual) Metamyelocytes % 1 H Myelocytes % 1 H Platelet Estimate Decreased L Hypochromasia (manual) Slight Poikilocytosis (manual Anisocytosis (manual) Slight [place] Cells Slight pCO2 pO2 HCO3 ABG pH ABG Total CO2 ABG O2 Saturation ABG O2 Content ABG Base Excess ABG Hemoglobin ABG Carboxyhemoglobin POC ABG HHb (Measured) ABG Methemoglobin ABG O2 Capacity Oswaldo Test A-a O2 Difference Hgb O2 Saturation FiO2 Crit Value Called To Crit Value Called By Crit Value Read Back Blood Gas Notified Time Sodium 136 Potassium 3.6 Chloride 96 L Carbon Dioxide 36 H Anion Gap 8 L BUN 11 Creatinine 0.3 L Est GFR ( Amer) > 60 Est GFR (Non-Af Amer) > 60 Random Glucose 230 H Calcium 7.9 L Total Bilirubin AST ALT Alkaline Phosphatase Total Protein Albumin Globulin Albumin/Globulin Ratio Vancomycin Trough Ur L.pneumophila Ag Mycoplasma pneumon IgM Negative 05/28/18 05/29/18 05/29/18 04:35 04:30 04:30 WBC 7.1 RBC 2.97 L Hgb 8.4 L Hct 26.3 L MCV 88.6 MCH 28.3 MCHC 32.0 L RDW 16.8 H Plt Count 122 L MPV 12.0 H Neut % (Auto) 90.7 H Lymph % (Auto) 3.0 L [place] % (Auto) 6.1 Eos % (Auto) 0.2 Baso % (Auto) 0.0 Neut # (Auto) 6.4 Lymph # (Auto) 0.2 L [place] # (Auto) 0.4 Eos # (Auto) 0.0 Baso # (Auto) 0.0 Neutrophils % (Manual) 80 H Band Neutrophils % 9 H Lymphocytes % (Manual) 2 L Monocytes % (Manual) 7 Eosinophils % (Manual) 1 Metamyelocytes % 1 H Myelocytes % Platelet Estimate Slightly decreased L Hypochromasia (manual) Poikilocytosis (manual Slight Anisocytosis (manual) Slight Michelle Cells pCO2 pO2 HCO3 ABG pH ABG Total CO2 ABG O2 Saturation ABG O2 Content ABG Base Excess ABG Hemoglobin ABG Carboxyhemoglobin POC ABG HHb (Measured) ABG Methemoglobin ABG O2 Capacity Oswaldo Test A-a O2 Difference Hgb O2 Saturation FiO2 Crit Value Called To Crit Value Called By Crit Value Read Back Blood Gas Notified Time Sodium 136 Potassium 2.8 L Chloride 85 L Carbon Dioxide 44 H* D Anion Gap 10 BUN 12 Creatinine 0.3 L Est GFR ( Amer) > 60 Est GFR (Non-Af Amer) > 60 Random Glucose 208 H Calcium 8.0 L Total Bilirubin AST ALT Alkaline Phosphatase Total Protein Albumin Globulin Albumin/Globulin Ratio Vancomycin Trough Ur L.pneumophila Ag Negative Mycoplasma pneumon IgM 05/29/18 05/30/18 05/30/18 05:17 04:30 04:30 WBC RBC Hgb Hct MCV MCH MCHC RDW Plt Count MPV Neut % (Auto) Lymph % (Auto) [place] % (Auto) Eos % (Auto) Baso % (Auto) Neut # (Auto) Lymph # (Auto) [place] # (Auto) Eos # (Auto) Baso # (Auto) Neutrophils % (Manual) Band Neutrophils % Lymphocytes % (Manual) Monocytes % (Manual) Eosinophils % (Manual) Metamyelocytes % Myelocytes % Platelet Estimate Hypochromasia (manual) Poikilocytosis (manual Anisocytosis (manual) Michelle Cells pCO2 62 H pO2 247 H HCO3 44.3 H* ABG pH 7.52 H ABG Total CO2 52.5 H ABG O2 Saturation 99.7 H ABG O2 Content 12.7 L ABG Base Excess 24.8 H ABG Hemoglobin 8.7 L ABG Carboxyhemoglobin 0.4 L POC ABG HHb (Measured) 0.3 ABG Methemoglobin 1.1 ABG O2 Capacity 12.7 L Oswaldo Test Yes A-a O2 Difference 389.0 Hgb O2 Saturation 98.2 H FiO2 100.0 Crit Value Called To Jason silvestre rn Crit Value Called By 302 Crit Value Read Back Y Blood Gas Notified Time 533 Sodium 138 Potassium 3.4 L Chloride 83 L Carbon Dioxide 46 H* Anion Gap 12 BUN 15 Creatinine 0.3 L Est GFR ( Amer) > 60 Est GFR (Non-Af Amer) > 60 Random Glucose 192 H Calcium 8.3 L Total Bilirubin 0.5 AST 21 ALT 20 Alkaline Phosphatase 120 Total Protein 5.8 L Albumin 2.5 L Globulin 3.3 Albumin/Globulin Ratio 0.8 L Vancomycin Trough 17.4 H Ur L.pneumophila Ag Mycoplasma pneumon IgM 05/30/18 04:30 WBC 13.8 H D RBC 3.37 L Hgb 9.5 L Hct 29.6 L MCV 87.8 MCH 28.4 MCHC 32.3 L RDW 16.8 H Plt Count 168 MPV Neut % (Auto) Lymph % (Auto) [place] % (Auto) Eos % (Auto) Baso % (Auto) Neut # (Auto) Lymph # (Auto) [place] # (Auto) Eos # (Auto) Baso # (Auto) Neutrophils % (Manual) Band Neutrophils % Lymphocytes % (Manual) Monocytes % (Manual) Eosinophils % (Manual) Metamyelocytes % Myelocytes % Platelet Estimate Hypochromasia (manual) Poikilocytosis (manual Anisocytosis (manual) [place] Cells pCO2 pO2 HCO3 ABG pH ABG Total CO2 ABG O2 Saturation ABG O2 Content ABG Base Excess ABG Hemoglobin ABG Carboxyhemoglobin POC ABG HHb (Measured) ABG Methemoglobin ABG O2 Capacity Oswaldo Test A-a O2 Difference Hgb O2 Saturation FiO2 Crit Value Called To Crit Value Called By Crit Value Read Back Blood Gas Notified Time Sodium Potassium Chloride Carbon Dioxide Anion Gap BUN Creatinine Est GFR ( Amer) Est GFR (Non-Af Amer) Random Glucose Calcium Total Bilirubin AST ALT Alkaline Phosphatase Total Protein Albumin Globulin Albumin/Globulin Ratio Vancomycin Trough Ur L.pneumophila Ag Mycoplasma pneumon IgM Microbiology 05/25/18 16:35 Blood-Venous Blood Culture - Preliminary NO GROWTH AFTER 4 DAYS 05/25/18 16:25 Blood-Venous Blood Culture - Preliminary NO GROWTH AFTER 4 DAYS 05/27/18 16:08 Sputum Gram Stain - Final 05/27/18 16:08 Sputum Sputum Culture - Final Escherichia Coli 05/26/18 06:30 Urine,De [place] Cruz Urine Culture - Final Escherichia Coli 05/21/18 09:10 Blood-Venous Blood Culture - Final NO GROWTH AFTER 5 DAYS 05/21/18 09:10 Blood-Venous Gram Stain - Final TEST NOT PERFORMED 05/20/18 13:00 Blood Blood Culture - Final NO GROWTH AFTER 5 DAYS 05/20/18 13:00 Blood Gram Stain - Final TEST NOT PERFORMED 05/20/18 17:43 Nose MRSA Culture (Admit) - Final MRSA NOT DETECTED 05/20/18 13:34 Urine,De La Cruz Urine Culture - Final Enterococcus Faecalis Accession No. 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 TECHNIQUE: Multiplanar, multisequence MR images of the brain were obtained without int ravenous contrast enhancement. FINDINGS: HEMORRHAGE: None DWI: No evidence of an acute or early subacute infarction. BRAIN PARENCHYMA: Good corticomedullary differentiation is seen. Proportional, diffuse expansion of the ventriculosulcal and cisternal spaces is again appreciated with white matter signal changes compatible with diffuse cerebral atrophy and chronic microangiopathy. No significant matter signal abnormality throughout. Posterior fossa contents appear unremarkable. No suspicious extra-axial fluid collection is identified and the midline brain anatomy appears grossly nonfocal as imaged. There is no mass effect throughout. VENTRICLES: Unremarkable. No hydrocephalus. CRANIUM: Unremarkable. ORBITS: Grossly unremarkable. PARANASAL SINUSES/MASTOIDS: Bilateral mastoid effusions identified in the interval. Extensive right maxillary and bilateral sphenoid sinusitis identified of varying chronology. VASCULAR SYSTEM: Skull base flow voids intact. OTHER FINDINGS: None. IMPRESSION: Stable age-related neuro degenerative changes are identified without acute interval findings as per above. Concordant preliminary report from [facility], 05/29/2018, 8:27 p.m.. Assessment and Plan (1) Altered mental status Status: Acute (2) Decubitus ulcer of sacral area Status: Acute (3) Deep tissue injury Status: Acute (4) Hx of fracture of femur Status: Chronic (5) Seizure disorder Status: Chronic - Assessment and Plan (Free Text) Assessment: A/P 83 year old female with multiple medical conditions icnluding CAD, Dementia, COPD, recent right femur ORIF admitted form [place] for AMS and fever. pt. has been afebrile since admission. mild leukocytosis has resolved. UA- negative, urine cx- E.fecalis ( could eb contaminant ) since the UA from same day negative. repeat UA from [facility] 05/26/2018- Negative urine cx 05/26/2018- ESBL e.coli sputum cx- reported as ESBL e.coli as well Blood cx- neg x 3 CXR as per report ? right basilar infiltrate , could be secondary to aspiration. PLan- vanco trough high today. hold vanco today. recheck trough in am and if < 15 can redose for empiric treatment of the sacral decub and asp pneumonia coverage. advise to monitor aspiration precautions as well. advise to continue with meropnem to treat the ESBL e.coli sputum cx. day #2. prognosis poor. Critical care time spent 45 minutes.
--- NOTE | 2018-05-30 11:40 | CP.PCM.PN ---
Subjective - Date & Time of Evaluation Date of Evaluation: 05/30/18 Time of Evaluation: 11:36 - Subjective Subjective: Neurology Follow-Up Note: Mrs. Laureano was evaluated this afternoon in the ICU. Pt remains lethargic, nonverbal and unable to answer questions or follow commands. Chart reviewed. She was able to tolerate the MRI ordered yesterday. ROS unobtainable from pt 2/2 her current condition. Objective - Vital Signs/Intake and Output Vital Signs (last 24 hours): Temp Pulse Resp BP Pulse Ox 98.5 F 118 H 33 H 136/60 100 05/30/18 08:00 05/30/18 10:00 05/30/18 10:00 05/30/18 10:00 05/30/18 10:00 Intake and Output: 05/30/18 05/30/18 06:59 18:59 Intake Total 848 370 Output Total 850 550 Balance -2 -180 - Medications Medications: Current Medications Albuterol Sulfate (Albuterol 0.083% Inhal Chantale (2.5 Mg/3 Ml) Ud) 2.5 mg INH RQID BELLE Last Admin: 05/30/18 11:26 Dose: 2.5 mg Albuterol Sulfate (Albuterol 0.083% Inhal Chantale (2.5 Mg/3 Ml) Ud) 2.5 mg INH RQ4 PRN PRN Reason: Shortness of Breath Last Admin: 05/30/18 00:25 Dose: 2.5 mg Dimethicone (Proshield Plus Skin Protectant) 1 applic TOP Q8 BELLE Last Admin: 05/30/18 08:12 Dose: 1 applic Furosemide (Lasix) 40 mg IVP BID BELLE Last Admin: 05/30/18 08:11 Dose: Not Given Vancomycin HCl 500 mg/ Sodium (Chloride) 100 mls @ 100 mls/hr IVPB Q12 BELLE; Protocol Last Admin: 05/30/18 10:48 Dose: Not Given Meropenem 1 gm/ Sodium (Chloride) 100 mls @ 100 mls/hr IVPB Q12 BELLE; Protocol Last Admin: 05/30/18 08:12 Dose: 100 mls/hr Lactulose (Enulose) 20 gm PO DAILY PRN PRN Reason: Constipation Last Admin: 05/29/18 18:39 Dose: 20 gm Levetiracetam (Keppra) 500 mg PO BID BELLE Last Admin: 05/30/18 08:10 Dose: 500 mg Morphine Sulfate (Morphine) 2 mg IVP Q6 PRN PRN Reason: Pain, moderate (4-7) Last Admin: 05/30/18 03:24 Dose: 2 mg Pantoprazole Sodium (Protonix Inj) 40 mg IVP DAILY [facility] Last Admin: 05/30/18 08:12 Dose: 40 mg - Labs Labs: 05/30/18 04:30 05/30/18 04:30 PT 20.0 Seconds (9.8-13.1) H 05/20/18 13:00 INR 1.8 05/20/18 13:00 APTT 30.8 Seconds (25.6-37.1) 05/20/18 13:00 - Constitutional Appears: Other (lethargic, nonverbal, moans) - Head Exam Head Exam: ATRAUMATIC, NORMAL INSPECTION, NORMOCEPHALIC - Eye Exam Eye Exam: Normal appearance, PERRL Pupil Exam: NORMAL ACCOMODATION - ENT Exam ENT Exam: Mucous Membranes Moist - Neck Exam Neck Exam: Normal Inspection - Respiratory Exam Respiratory Exam: absent: NORMAL BREATHING PATTERN (tachyneic, on venti mask) - Cardiovascular Exam Cardiovascular Exam: Tachycardia - GI/Abdominal Exam GI & Abdominal Exam: Soft Additional comments: ngt in place w feedings - Exam Additional comments: baeza cath in place - Extremities Exam Extremities Exam: absent: Full ROM Additional comments: edema noted to hands slight movement of arms to sternal rub, not legs +resistance and tone noted to BUE - Neurological Exam Neurological Exam: Altered Additional comments: Pt remains lethargic, nonverbal and moans on occasion. She is not as arousable to sternal rub as previous days. Unable to follow commands. BUE +resistance and tone noted; BUE fall immediately to bed when raised, no resistance noted. No tremors noted. Toes down-going b/l. Unable to assess sensation 2/2 pt nonverbal and not following commands. - Psychiatric Exam Psychiatric exam: absent: Normal Affect, Normal Mood Additional comments: nonverbal; lethargic; doesn't follow commands; moans on occasion - Skin Skin Exam: Normal Color Assessment and Plan (1) Toxic metabolic encephalopathy Assessment & Plan: Imaging reviewed: -MRI brain without contrast (05/29/18): Prelim report--> bilateral periventricular and subcortical white matter severe chronic ischemic changes; chronic parasinusitis; no evidence of acute intracranial pathology. Official report--> Stable age-related neuro degenerative changes are identified without acute interval findings as per above. -EEG (05/22/18): This is an abnormal EEG record that demonstrate the presence of a mild to moderate non specific diffuse disturbance of cortical activity, this is in keeping with a diffuse way matter dysfunction. These findings do not support a specific etiology. 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 No seizures were captured. -CT head (05/20/18): No acute intracranial pathology. Age-related changes. Mild sphenoid sinus disease. No significant interval change. Mrs. Loos has not improved since we have been seeing her, therefore, we had requested the MRI yesterday. She continues to have multiple infectious processes which may be contributing to her mentation. -Continue current treatment and management of infectious process and electrolyte imbalance. -Continue Keppra as ordered as the pt seems to be tolerating and has had no seizures since admission. -Notify neuro team of any acute changes in pt's condition. Case discussed with Dr. Rizvi Status: Acute
--- NOTE | 2018-05-30 12:47 | MRI ---
Date of service: 05/29/2018 PROCEDURE: MRI BRAIN WITHOUT CONTRAST HISTORY: lethargic; no change in mental status x9 days COMPARISON: Head CT 05/20/2018 and brain MRI with and without contrast 10/26/2016. TECHNIQUE: Multiplanar, multisequence MR images of the brain were obtained without intravenous contrast enhancement. FINDINGS: HEMORRHAGE: None DWI: No evidence of an acute or early subacute infarction. BRAIN PARENCHYMA: Good corticomedullary differentiation is seen. Proportional, diffuse expansion of the ventriculosulcal and cisternal spaces is again appreciated with white matter signal changes compatible with diffuse cerebral atrophy and chronic microangiopathy. No significant matter signal abnormality throughout. Posterior fossa contents appear unremarkable. No suspicious extra-axial fluid collection is identified and the midline brain anatomy appears grossly nonfocal as imaged. There is no mass effect throughout. VENTRICLES: Unremarkable. No hydrocephalus. CRANIUM: Unremarkable. ORBITS: Grossly unremarkable. PARANASAL SINUSES/MASTOIDS: Bilateral mastoid effusions identified in the interval. Extensive right maxillary and bilateral sphenoid sinusitis identified of varying chronology. VASCULAR SYSTEM: Skull base flow voids intact. OTHER FINDINGS: None. IMPRESSION: Stable age-related neuro degenerative changes are identified without acute interval findings as per above. Concordant preliminary report from [facility], 05/29/2018, 8:27 p.m..
--- NOTE | 2018-05-30 14:37 | CP.PCM.PN ---
Subjective - Date & Time of Evaluation Date of Evaluation: 05/30/18 Time of Evaluation: 11:00 - Subjective Subjective: F/U AM moaning, no response to tactil stimuli, on V Mask 50% Objective - Vital Signs/Intake and Output Vital Signs (last 24 hours): Temp Pulse Resp BP Pulse Ox 98.6 F 120 H 34 H 134/62 88 L 05/30/18 12:00 05/30/18 14:00 05/30/18 14:00 05/30/18 14:00 05/30/18 14:00 Intake and Output: 05/30/18 05/30/18 06:59 18:59 Intake Total 848 530 Output Total 850 600 Balance -2 -70 - Medications Medications: Current Medications Albuterol Sulfate (Albuterol 0.083% Inhal Chantale (2.5 Mg/3 Ml) Ud) 2.5 mg INH RQID BELLE Last Admin: 05/30/18 11:26 Dose: 2.5 mg Albuterol Sulfate (Albuterol 0.083% Inhal Chantale (2.5 Mg/3 Ml) Ud) 2.5 mg INH RQ4 PRN PRN Reason: Shortness of Breath Last Admin: 05/30/18 00:25 Dose: 2.5 mg Dimethicone (Proshield Plus Skin Protectant) 1 applic TOP Q8 BELLE Last Admin: 05/30/18 08:12 Dose: 1 applic Furosemide (Lasix) 40 mg IVP BID [facility] Last Admin: 05/30/18 08:11 Dose: Not Given Vancomycin HCl 500 mg/ Sodium (Chloride) 100 mls @ 100 mls/hr IVPB Q12 BELLE; Protocol Last Admin: 05/30/18 10:48 Dose: Not Given Meropenem 1 gm/ Sodium (Chloride) 100 mls @ 100 mls/hr IVPB Q12 BELLE; Protocol Last Admin: 05/30/18 08:12 Dose: 100 mls/hr Lactulose (Enulose) 20 gm PO DAILY PRN PRN Reason: Constipation Last Admin: 05/29/18 18:39 Dose: 20 gm Levetiracetam (Keppra) 500 mg PO BID [facility] Last Admin: 05/30/18 08:10 Dose: 500 mg Morphine Sulfate (Morphine) 2 mg IVP Q6 PRN PRN Reason: Pain, moderate (4-7) Last Admin: 05/30/18 14:35 Dose: 2 mg Pantoprazole Sodium (Protonix Inj) 40 mg IVP DAILY [facility] Last Admin: 05/30/18 08:12 Dose: 40 mg - Labs Labs: 05/30/18 04:30 05/30/18 04:30 PT 20.0 Seconds (9.8-13.1) H 05/20/18 13:00 INR 1.8 05/20/18 13:00 APTT 30.8 Seconds (25.6-37.1) 05/20/18 13:00 - Constitutional Appears: Chronically Ill - Head Exam Head Exam: NORMAL INSPECTION - Eye Exam Additional comments: Pupils sluggish reactive - ENT Exam Additional comments: NGT in place - Neck Exam Neck Exam: Normal Inspection - Respiratory Exam Respiratory Exam: Decreased Breath Sounds (at bases), Rhonchi (scattered) - Cardiovascular Exam Cardiovascular Exam: Tachycardia - GI/Abdominal Exam GI & Abdominal Exam: Soft, Normal Bowel Sounds - Exam Additional comments: De La Cruz cath - Extremities Exam Additional comments: L heel DTI improving, R Hip surgical incision healing well, R Femoral TLC. - Back Exam Additional comments: L-S decubitus stage IV. Upper back DTI improvig - Neurological Exam Additional comments: Lethargic, non verbal, moans at times, unable to follows commands, no responsive to tactile stimuli, generalized weakness. - Skin Skin Exam: Warm Assessment and Plan (1) CHF (congestive heart failure) Status: Acute (2) Aspiration pneumonia Status: Acute (3) Sepsis Status: Acute (4) Toxic metabolic encephalopathy Status: Acute (5) Altered mental status Status: Acute (6) UTI (urinary tract infection) Status: Acute (7) Dehydration Status: Resolved (8) Hypernatremia Status: Resolved (9) Decubitus ulcer of sacral area Status: Acute (10) Deep tissue injury Status: Acute (11) Chronic back pain Status: Chronic (12) Hx of fracture of femur Status: Chronic (13) HTN (hypertension) Status: Acute (14) COPD (chronic obstructive pulmonary disease) Status: Chronic (15) Hx of congestive heart failure Status: Chronic (16) Seizure disorder Status: Chronic - Assessment and Plan (Free Text) Plan: continue DuoNeb, Merren, Keppra, Lasix, NG tube feeding, V Mask 50% and rest of treatment, Vanco on hold , level high, repeat level am, prognosis poor, Patient is Full Code Critical care time: 32 min.
--- NOTE | 2018-05-30 22:15 | CP.PCM.PN ---
<Marc Schrader - Last Filed: 05/30/18 23:37> Subjective - Date & Time of Evaluation Date of Evaluation: 05/30/18 Time of Evaluation: 22:13 - Subjective Subjective: Marc Schrader DO PGY1 - Internal Medicine Turn Machine Operator - Cardiology Note for Dr. Varghese Patient was seen and examined at bedside in ICU. No changes to report overnight no acute events reported overnight. Patient continues to be normotensive, tachycardic. There were episodes of desaturation noted when patient was removed from supplemental oxygen. Continues to exhibit Restless, agitated Behavior; only moans. Objective - Vital Signs/Intake and Output Vital Signs (last 24 hours): Temp Pulse Resp BP Pulse Ox 98.7 F 112 H 30 H 127/60 100 05/30/18 20:00 05/30/18 20:00 05/30/18 20:00 05/30/18 20:00 05/30/18 20:00 Intake and Output: 05/30/18 05/31/18 18:59 06:59 Intake Total 840 84 Output Total 1400 Balance -560 84 - Medications Medications: Current Medications Albuterol Sulfate (Albuterol 0.083% Inhal Chantale (2.5 Mg/3 Ml) Ud) 2.5 mg INH RQID BELLE Last Admin: 05/30/18 19:09 Dose: 2.5 mg Albuterol Sulfate (Albuterol 0.083% Inhal Chantale (2.5 Mg/3 Ml) Ud) 2.5 mg INH RQ4 PRN PRN Reason: Shortness of Breath Last Admin: 05/30/18 00:25 Dose: 2.5 mg Dimethicone (Proshield Plus Skin Protectant) 1 applic TOP Q8 BELLE Last Admin: 05/30/18 16:25 Dose: 1 applic Furosemide (Lasix) 40 mg IVP BID BELLE Last Admin: 05/30/18 16:25 Dose: 40 mg Vancomycin HCl 500 mg/ Sodium (Chloride) 100 mls @ 100 mls/hr IVPB Q12 BELLE; Protocol Last Admin: 05/30/18 20:07 Dose: Not Given Meropenem 1 gm/ Sodium (Chloride) 100 mls @ 100 mls/hr IVPB Q12 BELLE; Protocol Last Admin: 05/30/18 21:09 Dose: 100 mls/hr Lactulose (Enulose) 20 gm PO DAILY PRN PRN Reason: Constipation Last Admin: 05/29/18 18:39 Dose: 20 gm Levetiracetam (Keppra) 500 mg PO BID [facility] Last Admin: 05/30/18 16:24 Dose: 500 mg Morphine Sulfate (Morphine) 2 mg IVP Q6 PRN PRN Reason: Pain, moderate (4-7) Last Admin: 05/30/18 14:35 Dose: 2 mg Pantoprazole Sodium (Protonix Inj) 40 mg IVP DAILY [facility] Last Admin: 05/30/18 08:12 Dose: 40 mg - Labs Labs: 05/30/18 04:30 05/30/18 04:30 PT 20.0 Seconds (9.8-13.1) H 05/20/18 13:00 INR 1.8 05/20/18 13:00 APTT 30.8 Seconds (25.6-37.1) 05/20/18 13:00 - Constitutional Appears: Confused, Cachectic, Chronically Ill, Awake however does not verbalize - Head Exam Head Exam: ATRAUMATIC, NORMOCEPHALIC - Eye Exam Eye Exam: EOMI, PERRL - Respiratory Exam Respiratory Exam: Diffuse bilateral ronchi, On Non-Rebreather - Cardiovascular Exam Cardiovascular Exam: +S1, +S2 - GI/Abdominal Exam GI & Abdominal Exam: Soft. absent: Tenderness - Extremities Exam Extremities exam: Significant upper extremity edema w/ pitting bilaterally; Limited edema appreciated in BL lower extremities - Neurological Exam Neurological exam: Altered, Awake - Skin Skin Exam: Dry, Normal Color, Warm Assessment and Plan (1) Sepsis Status: Acute (2) Hx of congestive heart failure Status: Chronic (3) HTN (hypertension) Status: Acute (4) Abdominal pain Status: Acute (5) Sepsis Status: Acute - Assessment and Plan (Free Text) Plan: 83F w/ PMH Alzheimers, HTN, HLD, Asthma, Anxiety, diastolic CHF, previously normal stress test (may 2017) admitted for sepsis growing ESBL in urine + sputum - cardiology consulted for management of chronic cardiac conditions HD Stable overnight w/ mild desaturations; afebrile w/ leukocytosis. Continue holding BB at this time Contraction alkalosis noted ;will Decrease lasix to daily Most recent echo (05/2018) - EF of 60-65%; Grade 1- abnormal relaxation pattern w/ mild AR and mild TR Troponin + BNP wnl Further reccs per Dr. Varghese <Juarez Varghese - Last Filed: 05/30/18 23:44> Objective - Vital Signs/Intake and Output Vital Signs (last 24 hours): Temp Pulse Resp BP Pulse Ox 98.7 F 106 H 34 H 126/55 L 100 05/30/18 20:00 05/30/18 22:00 05/30/18 22:00 05/30/18 22:00 05/30/18 22:00 Intake and Output: 05/30/18 05/31/18 18:59 06:59 Intake Total 840 264 Output Total 1400 Balance -560 264 - Medications Medications: Current Medications Albuterol Sulfate (Albuterol 0.083% Inhal Chantale (2.5 Mg/3 Ml) Ud) 2.5 mg INH RQID BELLE Last Admin: 05/30/18 19:09 Dose: 2.5 mg Albuterol Sulfate (Albuterol 0.083% Inhal Chantale (2.5 Mg/3 Ml) Ud) 2.5 mg INH RQ4 PRN PRN Reason: Shortness of Breath Last Admin: 05/30/18 00:25 Dose: 2.5 mg Dimethicone (Proshield Plus Skin Protectant) 1 applic TOP Q8 BELLE Last Admin: 05/30/18 16:25 Dose: 1 applic Furosemide (Lasix) 40 mg IVP DAILY BELLE Vancomycin HCl 500 mg/ Sodium (Chloride) 100 mls @ 100 mls/hr IVPB Q12 BELLE; Protocol Last Admin: 05/30/18 20:07 Dose: Not Given Meropenem 1 gm/ Sodium (Chloride) 100 mls @ 100 mls/hr IVPB Q12 BELLE; Protocol Last Admin: 05/30/18 21:09 Dose: 100 mls/hr Lactulose (Enulose) 20 gm PO DAILY PRN PRN Reason: Constipation Last Admin: 05/29/18 18:39 Dose: 20 gm Levetiracetam (Keppra) 500 mg PO BID BELLE Last Admin: 05/30/18 16:24 Dose: 500 mg Morphine Sulfate (Morphine) 2 mg IVP Q6 PRN PRN Reason: Pain, moderate (4-7) Last Admin: 05/30/18 14:35 Dose: 2 mg Pantoprazole Sodium (Protonix Inj) 40 mg IVP DAILY BELLE Last Admin: 05/30/18 08:12 Dose: 40 mg - Labs Labs: 05/30/18 04:30 05/30/18 04:30 PT 20.0 Seconds (9.8-13.1) H 05/20/18 13:00 INR 1.8 05/20/18 13:00 APTT 30.8 Seconds (25.6-37.1) 05/20/18 13:00 Assessment and Plan (1) CHF (congestive heart failure) Status: Acute (2) Sepsis Status: Acute (3) Encephalopathy acute Status: Acute (4) HTN (hypertension) Status: Acute Attending/Attestation - Attestation I have personally seen and examined this patient.: Yes I have fully participated in the care of the patient.: Yes I have reviewed all pertinent clinical information, including history, physical exam and plan: Yes
[2018-05-31] MEDS: Proshield Plus GEL TOP SCH ×3 (00:42→16:31)
[2018-05-31 04:41] LABS: ABG ALLEN TEST YES; ARTERIAL BLOOD GAS HCO3 46.2 mmol/L (21-28); ARTERIAL BLOOD GAS O2 SAT 91.7 % (95-98); ARTERIAL BLOOD GAS PCO2 59 mm/Hg (35-45); ARTERIAL BLOOD GAS PH 7.57 (7.35-7.45); ARTERIAL BLOOD GAS PO2 51 mm/Hg (80-100); ARTERIAL BLOOD GAS TCO2 55.9 mmol/L (22-28)
[2018-05-31 05:25] LABS: HEMOGLOBIN 8.7 g/dL (12.0-16.0); MEAN CELL VOLUME 88.1 fl (81.0-99.0); MEAN CORPUSCULAR HGB CONC 31.8 g/dL (33.0-37.0); RBC 3.11 Mil/uL (3.80-5.20); RED CELL DISTRIBUTION WIDTH 17.2 % (11.5-14.5); WHITE BLOOD COUNT 11.4 K/uL (4.8-10.8)
[2018-05-31 06:09] LABS: ALB/GLOB RATIO 0.7 (1.0-2.1); ALBUMIN 2.4 g/dL (3.5-5.0); ALT/SGPT 24 U/L (9-52); AST/SGOT 22 U/L (14-36); BLOOD UREA NITROGEN 16 mg/dl (7-17); CALCIUM 7.9 mg/dL (8.4-10.2); GFR NON-AFRICAN AMERICAN > 60
[2018-05-31] MEDS ORDERED: Potassium Chloride 20 mEq ER Tab PO ONE (06:21)
[2018-05-31] MEDS ORDERED: Potassium Chloride 20 mEq/15 ml LIQ UD PO ONE (07:00)
[2018-05-31] MEDS: Albuterol 0.083% Inhal Sol (2.5 mg/3 mL) UD INH SCH ×4 (07:41→19:33)
[2018-05-31] MEDS: levETIRAcetam 100 mg/ml (5ml) Oral Syringe PO SCH ×2 (08:34→16:31)
[2018-05-31] MEDS: Meropenem 1 GM in Sodium Chloride 0.9% 100 ML IVPB SCH ×2 (08:35→21:00)
--- NOTE | 2018-05-31 11:39 | CP.PCM.PN ---
Subjective - Date & Time of Evaluation Date of Evaluation: 05/31/18 Time of Evaluation: 11:38 - Subjective Subjective: Neurology Follow-Up Note: Mrs. Laureano was evaluated this morning in the ICU. Pt remains lethargic, nonverbal and unable to answer questions or follow commands. Chart reviewed; discussed with primary RN. ROS unobtainable from pt 2/2 her current condition. Objective - Vital Signs/Intake and Output Vital Signs (last 24 hours): Temp Pulse Resp BP Pulse Ox 97.2 F L 115 H 18 124/52 L 100 05/31/18 08:00 05/31/18 10:00 05/31/18 10:00 05/31/18 10:00 05/31/18 10:00 Intake and Output: 05/31/18 05/31/18 06:59 18:59 Intake Total 756 470 Output Total 500 800 Balance 256 -330 - Medications Medications: Current Medications Albuterol Sulfate (Albuterol 0.083% Inhal Chantale (2.5 Mg/3 Ml) Ud) 2.5 mg INH RQID BELLE Last Admin: 05/31/18 11:08 Dose: 2.5 mg Albuterol Sulfate (Albuterol 0.083% Inhal Chantale (2.5 Mg/3 Ml) Ud) 2.5 mg INH RQ4 PRN PRN Reason: Shortness of Breath Last Admin: 05/30/18 00:25 Dose: 2.5 mg Dimethicone (Proshield Plus Skin Protectant) 1 applic TOP Q8 BELLE Last Admin: 05/31/18 08:35 Dose: 1 applic Furosemide (Lasix) 40 mg IVP DAILY BELLE Last Admin: 05/31/18 08:34 Dose: 40 mg Vancomycin HCl 500 mg/ Sodium (Chloride) 100 mls @ 100 mls/hr IVPB Q12 BELLE; Protocol Last Admin: 05/30/18 20:07 Dose: Not Given Meropenem 1 gm/ Sodium (Chloride) 100 mls @ 100 mls/hr IVPB Q12 BELLE; Protocol Last Admin: 05/31/18 08:35 Dose: 100 mls/hr Lactulose (Enulose) 20 gm PO DAILY PRN PRN Reason: Constipation Last Admin: 05/29/18 18:39 Dose: 20 gm Levetiracetam (Keppra) 500 mg PO BID BELLE Last Admin: 05/31/18 08:34 Dose: 500 mg Morphine Sulfate (Morphine) 2 mg IVP Q6 PRN PRN Reason: Pain, moderate (4-7) Last Admin: 05/31/18 05:24 Dose: 2 mg Pantoprazole Sodium (Protonix Inj) 40 mg IVP DAILY BELLE Last Admin: 05/31/18 08:36 Dose: 40 mg - Labs Labs: 05/31/18 04:20 05/31/18 04:20 PT 20.0 Seconds (9.8-13.1) H 05/20/18 13:00 INR 1.8 05/20/18 13:00 APTT 30.8 Seconds (25.6-37.1) 05/20/18 13:00 - Constitutional Appears: Other (nonverbal; moans; lethargic) - Head Exam Head Exam: ATRAUMATIC, NORMAL INSPECTION, NORMOCEPHALIC - Eye Exam Eye Exam: Normal appearance, PERRL Pupil Exam: NORMAL ACCOMODATION - Neck Exam Neck Exam: Normal Inspection - Respiratory Exam Respiratory Exam: absent: NORMAL BREATHING PATTERN (tachypneic, on venti mask) - Cardiovascular Exam Cardiovascular Exam: REGULAR RHYTHM (hr 93) - GI/Abdominal Exam GI & Abdominal Exam: Soft Additional comments: ngt in place with feedings - Extremities Exam Extremities Exam: absent: Full ROM Additional comments: edema still noted to hands slight movement of arms to sternal rub, not legs +resistance and tone noted to BUE - Neurological Exam Neurological Exam: Altered Additional comments: Pt remains lethargic, nonverbal and moans on occasion during exam. She is not as arousable to sternal rub as previous days during neuro rounds. Still unable to follow commands. BUE +resistance and tone noted; BUE fall immediately to bed when raised, no resistance noted. No tremors noted. Toes down-going b/l. Unable to assess sensation 2/2 pt nonverbal and not following commands. - Psychiatric Exam Psychiatric exam: absent: Normal Affect, Normal Mood (lethargic, nonverbal; moans on occasion) - Skin Skin Exam: Dry, Warm Assessment and Plan (1) Toxic metabolic encephalopathy Assessment & Plan: Imaging reviewed: -MRI brain without contrast (05/29/18): Stable age-related neuro degenerative changes are identified without acute interval findings as per above. -EEG (05/22/18): This is an abnormal EEG record that demonstrate the presence of a mild to moderate non specific diffuse disturbance of cortical activity, this is in keeping with a diffuse way matter dysfunction. These findings do not support a specific etiology. 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 No seizures were captured. -CT head (05/20/18): No acute intracranial pathology. Age-related changes. Mild sphenoid sinus disease. No significant interval change. Mrs. Laureano's mentation is still not improved. Recent imaging shows no acute intracranial involvement. She continues to have multiple infectious processes which may be contributing to her mental status. -Continue current treatment and management of infectious process and electrolyte imbalance. -Continue Keppra as ordered as the pt seems to be tolerating and has had no seizures since admission. -Notify neuro team of any acute changes in pt's condition. Case discussed with Dr. Flanagan Status: Acute
--- NOTE | 2018-05-31 11:46 | CP.PCM.PN ---
Subjective - Date & Time of Evaluation Date of Evaluation: 05/31/18 Time of Evaluation: 11:46 - Subjective Subjective: ID Note- Patient seen and examined today in ICU . pt. remains lethargic and only moaning. She remains on the for oxygenation. Objective - Vital Signs/Intake and Output Vital Signs (last 24 hours): Temp Pulse Resp BP Pulse Ox 97.2 F L 115 H 18 124/52 L 100 05/31/18 08:00 05/31/18 10:00 05/31/18 10:00 05/31/18 10:00 05/31/18 10:00 Intake and Output: 05/31/18 05/31/18 06:59 18:59 Intake Total 756 470 Output Total 500 800 Balance 256 -330 - Medications Medications: Current Medications Albuterol Sulfate (Albuterol 0.083% Inhal Chantale (2.5 Mg/3 Ml) Ud) 2.5 mg INH RQID BELLE Last Admin: 05/31/18 11:08 Dose: 2.5 mg Albuterol Sulfate (Albuterol 0.083% Inhal Chantale (2.5 Mg/3 Ml) Ud) 2.5 mg INH RQ4 PRN PRN Reason: Shortness of Breath Last Admin: 05/30/18 00:25 Dose: 2.5 mg Dimethicone (Proshield Plus Skin Protectant) 1 applic TOP Q8 BELLE Last Admin: 05/31/18 08:35 Dose: 1 applic Furosemide (Lasix) 40 mg IVP DAILY [facility] Last Admin: 05/31/18 08:34 Dose: 40 mg Vancomycin HCl 500 mg/ Sodium (Chloride) 100 mls @ 100 mls/hr IVPB Q12 BELLE; Protocol Last Admin: 05/30/18 20:07 Dose: Not Given Meropenem 1 gm/ Sodium (Chloride) 100 mls @ 100 mls/hr IVPB Q12 BELLE; Protocol Last Admin: 05/31/18 08:35 Dose: 100 mls/hr Lactulose (Enulose) 20 gm PO DAILY PRN PRN Reason: Constipation Last Admin: 05/29/18 18:39 Dose: 20 gm Levetiracetam (Keppra) 500 mg PO BID BELLE Last Admin: 05/31/18 08:34 Dose: 500 mg Morphine Sulfate (Morphine) 2 mg IVP Q6 PRN PRN Reason: Pain, moderate (4-7) Last Admin: 05/31/18 05:24 Dose: 2 mg Pantoprazole Sodium (Protonix Inj) 40 mg IVP DAILY BELLE Last Admin: 05/31/18 08:36 Dose: 40 mg - Labs Labs: - Additional Findings Additional findings: - Constitutional Appears: Chronically Ill Additional comments: nonverbal, lethargic - Head Exam Head Exam: ATRAUMATIC - ENT Exam Additional comments: dry oral mucosa - Neck Exam Neck exam: Positive for: Full Rom - Respiratory Exam Additional comments: tachypneic no wheezing decreased breath sounds at bases - Cardiovascular Exam Cardiovascular Exam: RRR, +S1, +S2 - GI/Abdominal Exam GI & Abdominal Exam: Normal Bowel Sounds, Soft Additional comments: NT, ND - Extremities Exam Additional comments: right femur surgical site with steri -strips in place clean/dry/Intact no erythema has left great toe small ulcer at the tip , no discharge, no open wound - Neurological Exam Neurological exam: Altered but more awake today - Skin Additional comments: mid sacral stage 4 decub, no discharge mid upper back 2 smaller uleartions one stage 2 with other one stage 1 Laboratory Results - last 72 hr 05/28/18 05/28/18 05/29/18 04:26 04:35 04:30 WBC 7.1 RBC 2.97 L Hgb 8.4 L Hct 26.3 L MCV 88.6 MCH 28.3 MCHC 32.0 L RDW 16.8 H Plt Count 122 L MPV 12.0 H Neut % (Auto) 90.7 H Lymph % (Auto) 3.0 L [place] % (Auto) 6.1 Eos % (Auto) 0.2 Baso % (Auto) 0.0 Neut # (Auto) 6.4 Lymph # (Auto) 0.2 L [place] # (Auto) 0.4 Eos # (Auto) 0.0 Baso # (Auto) 0.0 Neutrophils % (Manual) 80 H Band Neutrophils % 9 H Lymphocytes % (Manual) 2 L Monocytes % (Manual) 7 Eosinophils % (Manual) 1 Metamyelocytes % 1 H Platelet Estimate Slightly decreased L Poikilocytosis (manual Slight Anisocytosis (manual) Slight pCO2 pO2 HCO3 ABG pH ABG Total CO2 ABG O2 Saturation ABG O2 Content ABG Base Excess ABG Hemoglobin ABG Carboxyhemoglobin POC ABG HHb (Measured) ABG Methemoglobin ABG O2 Capacity Oswaldo Test ABG Potassium A-a O2 Difference Hgb O2 Saturation Glucose Lactate FiO2 Crit Value Called To Crit Value Called By Crit Value Read Back Blood Gas Notified Time Sodium Potassium Chloride Carbon Dioxide Anion Gap BUN Creatinine Est GFR ( Amer) Est GFR (Non-Af Amer) Random Glucose Calcium Total Bilirubin AST ALT Alkaline Phosphatase Total Protein Albumin Globulin Albumin/Globulin Ratio Arterial Blood Potassium Vancomycin Trough Ur L.pneumophila Ag Negative Mycoplasma pneumon IgM Negative 05/29/18 05/29/18 05/30/18 04:30 05:17 04:30 WBC RBC Hgb Hct MCV MCH MCHC RDW Plt Count MPV Neut % (Auto) Lymph % (Auto) [place] % (Auto) Eos % (Auto) Baso % (Auto) Neut # (Auto) Lymph # (Auto) [place] # (Auto) Eos # (Auto) Baso # (Auto) Neutrophils % (Manual) Band Neutrophils % Lymphocytes % (Manual) Monocytes % (Manual) Eosinophils % (Manual) Metamyelocytes % Platelet Estimate Poikilocytosis (manual Anisocytosis (manual) pCO2 62 H pO2 247 H HCO3 44.3 H* ABG pH 7.52 H ABG Total CO2 52.5 H ABG O2 Saturation 99.7 H ABG O2 Content 12.7 L ABG Base Excess 24.8 H ABG Hemoglobin 8.7 L ABG Carboxyhemoglobin 0.4 L POC ABG HHb (Measured) 0.3 ABG Methemoglobin 1.1 ABG O2 Capacity 12.7 L Oswaldo Test Yes ABG Potassium A-a O2 Difference 389.0 Hgb O2 Saturation 98.2 H Glucose Lactate FiO2 100.0 Crit Value Called To Jason silvestre rn Crit Value Called By 302 Crit Value Read Back Y Blood Gas Notified Time 533 Sodium 136 Potassium 2.8 L Chloride 85 L Carbon Dioxide 44 H* D Anion Gap 10 BUN 12 Creatinine 0.3 L Est GFR ( Amer) > 60 Est GFR (Non-Af Amer) > 60 Random Glucose 208 H Calcium 8.0 L Total Bilirubin AST ALT Alkaline Phosphatase Total Protein Albumin Globulin Albumin/Globulin Ratio Arterial Blood Potassium Vancomycin Trough 17.4 H Ur L.pneumophila Ag Mycoplasma pneumon IgM 05/30/18 05/30/18 05/31/18 04:30 04:30 04:20 WBC 13.8 H D RBC 3.37 L Hgb 9.5 L Hct 29.6 L MCV 87.8 MCH 28.4 MCHC 32.3 L RDW 16.8 H Plt Count 168 MPV Neut % (Auto) Lymph % (Auto) [place] % (Auto) Eos % (Auto) Baso % (Auto) Neut # (Auto) Lymph # (Auto) [place] # (Auto) Eos # (Auto) Baso # (Auto) Neutrophils % (Manual) Band Neutrophils % Lymphocytes % (Manual) Monocytes % (Manual) Eosinophils % (Manual) Metamyelocytes % Platelet Estimate Poikilocytosis (manual Anisocytosis (manual) pCO2 pO2 HCO3 ABG pH ABG Total CO2 ABG O2 Saturation ABG O2 Content ABG Base Excess ABG Hemoglobin ABG Carboxyhemoglobin POC ABG HHb (Measured) ABG Methemoglobin ABG O2 Capacity Oswaldo Test ABG Potassium A-a O2 Difference Hgb O2 Saturation Glucose Lactate FiO2 Crit Value Called To Crit Value Called By Crit Value Read Back Blood Gas Notified Time Sodium 138 Potassium 3.4 L Chloride 83 L Carbon Dioxide 46 H* Anion Gap 12 BUN 15 Creatinine 0.3 L Est GFR ( Amer) > 60 Est GFR (Non-Af Amer) > 60 Random Glucose 192 H Calcium 8.3 L Total Bilirubin 0.5 AST 21 ALT 20 Alkaline Phosphatase 120 Total Protein 5.8 L Albumin 2.5 L Globulin 3.3 Albumin/Globulin Ratio 0.8 L Arterial Blood Potassium Vancomycin Trough 11.7 H Ur L.pneumophila Ag Mycoplasma pneumon IgM 05/31/18 05/31/18 05/31/18 04:20 04:20 04:31 WBC 11.4 H RBC 3.11 L Hgb 8.7 L Hct 27.4 L MCV 88.1 MCH 28.0 MCHC 31.8 L RDW 17.2 H Plt Count 159 MPV Neut % (Auto) Lymph % (Auto) [place] % (Auto) Eos % (Auto) Baso % (Auto) Neut # (Auto) Lymph # (Auto) [place] # (Auto) Eos # (Auto) Baso # (Auto) Neutrophils % (Manual) Band Neutrophils % Lymphocytes % (Manual) Monocytes % (Manual) Eosinophils % (Manual) Metamyelocytes % Platelet Estimate Poikilocytosis (manual Anisocytosis (manual) pCO2 59 H pO2 51 L HCO3 46.2 H* ABG pH 7.57 H ABG Total CO2 55.9 H ABG O2 Saturation 91.7 L ABG O2 Content ABG Base Excess 27.5 H ABG Hemoglobin ABG Carboxyhemoglobin POC ABG HHb (Measured) ABG Methemoglobin ABG O2 Capacity Oswaldo Test Yes ABG Potassium 3.0 L A-a O2 Difference 232.0 Hgb O2 Saturation Glucose 226 H Lactate 1.8 FiO2 50.0 Crit Value Called To Dr gisele whyte Crit Value Called By Donald Crit Value Read Back Y Blood Gas Notified Time 441 Sodium 137 137.0 Potassium 3.0 L Chloride 82 L 93.0 L Carbon Dioxide > 40 H* Anion Gap 18 BUN 16 Creatinine 0.3 L Est GFR ( Amer) > 60 Est GFR (Non-Af Amer) > 60 Random Glucose 223 H Calcium 7.9 L Total Bilirubin 0.4 AST 22 ALT 24 Alkaline Phosphatase 117 Total Protein 5.7 L Albumin 2.4 L Globulin 3.3 Albumin/Globulin Ratio 0.7 L Arterial Blood Potassium 3.0 L Vancomycin Trough Ur L.pneumophila Ag Mycoplasma pneumon IgM Microbiology 05/25/18 16:35 Blood-Venous Blood Culture - Final NO GROWTH AFTER 5 DAYS 05/25/18 16:35 Blood-Venous Gram Stain - Final TEST NOT PERFORMED 05/25/18 16:25 Blood-Venous Blood Culture - Final NO GROWTH AFTER 5 DAYS 05/25/18 16:25 Blood-Venous Gram Stain - Final TEST NOT PERFORMED 05/27/18 16:08 Sputum Gram Stain - Final 05/27/18 16:08 Sputum Sputum Culture - Final Escherichia Coli 05/26/18 06:30 Urine,[place] Urine Culture - Final Escherichia Coli 05/21/18 09:10 Blood-Venous Blood Culture - Final NO GROWTH AFTER 5 DAYS 05/21/18 09:10 Blood-Venous Gram Stain - Final TEST NOT PERFORMED 05/20/18 13:00 Blood Blood Culture - Final NO GROWTH AFTER 5 DAYS 05/20/18 13:00 Blood Gram Stain - Final TEST NOT PERFORMED 05/20/18 17:43 Nose MRSA Culture (Admit) - Final MRSA NOT DETECTED 05/20/18 13:34 Urine,[place] Urine Culture - Final Enterococcus Faecalis Accession No. : [id number] Patient Name / ID : LENORA PAGAN / [id number] Exam Date : 05/31/2018 04:16:06 ( Approved ) Study Comment : Sex / Age : F / 83Y Creator : Giorgio Manjarrez MD Dictator : Giorgio Manjarrez MD Vocational Coordinator : Note Taker : Giorgio Manjarrez MD Approver2 : Report Date : 05/31/2018 13:47:14 My Comment : Date of service: 05/31/2018 PROCEDURE: CHEST RADIOGRAPH, 1 VIEW HISTORY: Pneumonia COMPARISON: 05/26/2018 FINDINGS: LUNGS: Modest interval improvement in previously identified confluent densities lung including right upper lobe and right PLEURA: Decrease in right pleural effusion identified previously. CARDIOVASCULAR: Atherosclerotic calcifications identified primarily aortic arch. No radiographic findings to suggest acute or significant cardiovascular disease. OSSEOUS STRUCTURES: No significant abnormalities. VISUALIZED UPPER ABDOMEN: Normal. OTHER FINDINGS: Stable position of nasogastric tube. IMPRESSION: Decrease in infiltrates and effusions compared to prior study. Assessment and Plan (1) Altered mental status Status: Acute (2) Decubitus ulcer of sacral area Status: Acute (3) Deep tissue injury Status: Acute (4) Hx of fracture of femur Status: Chronic (5) Seizure disorder Status: Chronic - Assessment and Plan (Free Text) Assessment: A/P 83 year old female with multiple medical conditions icnluding CAD, Dementia, COPD, recent right femur ORIF admitted form [place] for AMS and fever. pt. has been afebrile since admission. mild leukocytosis decreasing today. UA- negative, urine cx- E.fecalis ( could eb contaminant ) since the UA from same day negative. repeat UA from [facility] 05/26/2018- Negative urine cx 05/26/2018- ESBL e.coli sputum cx- reported as ESBL e.coli as well Blood cx- neg x 3 repeat cxr report noted. PLan- vanco trough good today , can resume vanco. keep trough <15. advise to monitor aspiration precautions as well. advise to continue with meropnem to treat the ESBL e.coli sputum cx. day #3 Critical care time spent 40 minutes.
--- NOTE | 2018-05-31 13:53 | RAD ---
Date of service: 05/31/2018 PROCEDURE: CHEST RADIOGRAPH, 1 VIEW HISTORY: Pneumonia COMPARISON: 05/26/2018 FINDINGS: LUNGS: Modest interval improvement in previously identified confluent densities lung including right upper lobe and right PLEURA: Decrease in right pleural effusion identified previously. CARDIOVASCULAR: Atherosclerotic calcifications identified primarily aortic arch. No radiographic findings to suggest acute or significant cardiovascular disease. OSSEOUS STRUCTURES: No significant abnormalities. VISUALIZED UPPER ABDOMEN: Normal. OTHER FINDINGS: Stable position of nasogastric tube. IMPRESSION: Decrease in infiltrates and effusions compared to prior study.
--- NOTE | 2018-05-31 15:56 | CP.CCUPN ---
CCU Subjective - Physician Review Subjective (Free Text): Neuromental status unchanged: Eyes closed, not responsive nor follows any verbal commands or cues, intermittently moaning, on 50% VM this AM with 99% SPO2, tachypneic up to 30s, NGT with ongoing tube feeds. Other vitals and I/O's reviewed. Afebrile, no fever spikes, SBP 120s, HR 100s sinus, tachypneic with RR 30. Even fluid balance positive last 24H. ROS: No other pertinent negs or positives on 10+ system review obtainable, nonverbal. PMSFH: All other Nursing and physician documentation reviewed to date; no new pertinent info noted relevant to current medical problems. EXAM- HEENT: no icterus, R gaze preference, pupils 3 mm bilat and reactive. NECK: No JVD visible, supple, carotids equal upstroke bilat/no bruit CHEST: decreased BS at the bases, no wheezes audible HEART: regular, distant, tachy S1S2, no rubs or murmurs noted ABD: softly and nontender, no guarding, no organomegaly, BS hypoactive. EXT: + LE edema, no calf tenderness or palpable cords, distal pulses intact and symmetrical. Mod size sacral decub stage 4, thoracic DTI. NEURO: withdraws arms to pain, + tone in all extremities, moans when lightly touched. SKIN: no rashes, warm and dry LABS: WBC= 11.4 HGB= 8.7 PLTs= 159K Na= 137 K= 3.0 CL= 82 HCO3= 40 plus BUN/Cr= 16/0.3 BS= 223 CXR todays film compared to 05/26 study, maybe slightly better with R sided interstitial changes. ?? new left hilar interstitial changes (my interp). IMPRESSION / MAJOR PROBLEMS NOW: 1. AMS, r/o NCSE, vs other occult seizure activity, metabolic Encephalopathy, possible Sepsis Encephalopathy; h/o Dementia 2. Acute resp insuff 2 bilateral Pneumonia, r/o Aspiration 3. h/o ORIF R Hip; L Femoral fracture repair 4. Chronic Disease Anemia 5. New Thrombocytopenia this Admission, h/o of Low Platelets; r/o Drug effect, DIC PLAN: 1. [place] MV support for any deterioration in resp status. Too lethargic for BiPAP, already alkalotic with PCO2 in the high 50s and PO2 only 51. HFNC only delivers up to 40 LPM and she is breathing with her mouth open. 2. Merrem / Vanco 3. Daily Lasix ongoing. K supplemented. 4. Called son, Steve in [place] regarding patients present clinical status: essentially no overall improvement in status since ICU admission. Discussed goals of care, but son states he will fly in from [place] to see Mother to discuss options with her.
--- NOTE | 2018-05-31 16:10 | CP.PCM.PN ---
Subjective - Date & Time of Evaluation Date of Evaluation: 05/31/18 Time of Evaluation: 13:00 - Subjective Subjective: F?U AMS. moaning, no response to tactil stimuli, on V Mask 50% Objective - Vital Signs/Intake and Output Vital Signs (last 24 hours): Temp Pulse Resp BP Pulse Ox 98.4 F 118 H 32 H 126/51 L 94 L 05/31/18 12:00 05/31/18 14:00 05/31/18 14:00 05/31/18 14:00 05/31/18 14:00 Intake and Output: 05/31/18 05/31/18 06:59 18:59 Intake Total 756 630 Output Total 500 1300 Balance 256 -670 - Medications Medications: Current Medications Albuterol Sulfate (Albuterol 0.083% Inhal Chantale (2.5 Mg/3 Ml) Ud) 2.5 mg INH RQID BELLE Last Admin: 05/31/18 11:08 Dose: 2.5 mg Albuterol Sulfate (Albuterol 0.083% Inhal Chantale (2.5 Mg/3 Ml) Ud) 2.5 mg INH RQ4 PRN PRN Reason: Shortness of Breath Last Admin: 05/30/18 00:25 Dose: 2.5 mg Dimethicone (Proshield Plus Skin Protectant) 1 applic TOP Q8 BELLE Last Admin: 05/31/18 08:35 Dose: 1 applic Furosemide (Lasix) 40 mg IVP DAILY [facility] Last Admin: 05/31/18 08:34 Dose: 40 mg Vancomycin HCl 500 mg/ Sodium (Chloride) 100 mls @ 100 mls/hr IVPB Q12 BELLE; Protocol Last Admin: 05/31/18 13:35 Dose: 100 mls/hr Meropenem 1 gm/ Sodium (Chloride) 100 mls @ 100 mls/hr IVPB Q12 [facility]LE; Protocol Last Admin: 05/31/18 08:35 Dose: 100 mls/hr Lactulose (Enulose) 20 gm PO DAILY PRN PRN Reason: Constipation Last Admin: 05/29/18 18:39 Dose: 20 gm Levetiracetam (Keppra) 500 mg PO BID [facility] Last Admin: 05/31/18 08:34 Dose: 500 mg Pantoprazole Sodium (Protonix Inj) 40 mg IVP DAILY [facility] Last Admin: 05/31/18 08:36 Dose: 40 mg - Labs Labs: 05/31/18 04:20 05/31/18 04:20 PT 20.0 Seconds (9.8-13.1) H 05/20/18 13:00 INR 1.8 05/20/18 13:00 APTT 30.8 Seconds (25.6-37.1) 05/20/18 13:00 - Constitutional Appears: Chronically Ill - Head Exam Head Exam: NORMAL INSPECTION - Eye Exam Additional comments: Pupils sluggish reactive. - ENT Exam Additional comments: NGT in place - Neck Exam Neck Exam: Normal Inspection - Respiratory Exam Respiratory Exam: Decreased Breath Sounds (at bases), Rhonchi (scattered) - Cardiovascular Exam Cardiovascular Exam: Tachycardia - GI/Abdominal Exam GI & Abdominal Exam: Soft, Normal Bowel Sounds - Exam Additional comments: De La Cruz cath - Extremities Exam Additional comments: L heel DTI improved, R hip surgical incision healing well, R TLC. - Back Exam Additional comments: L-S decubitus stage IV, upper back DTI improved. - Neurological Exam Additional comments: Lethargic, non verbal, unable to follows commands, generalized weakness. - Psychiatric Exam Additional comments: Lethargic. - Skin Skin Exam: Warm Assessment and Plan (1) CHF (congestive heart failure) Status: Acute (2) Aspiration pneumonia Status: Acute (3) Sepsis Status: Acute (4) Toxic metabolic encephalopathy Status: Acute (5) Altered mental status Status: Acute (6) UTI (urinary tract infection) Status: Acute (7) Dehydration Status: Resolved (8) Hypernatremia Status: Resolved (9) Decubitus ulcer of sacral area Status: Acute (10) Deep tissue injury Status: Acute (11) Chronic back pain Status: Chronic (12) Hx of fracture of femur Status: Chronic (13) HTN (hypertension) Status: Acute (14) COPD (chronic obstructive pulmonary disease) Status: Chronic (15) Hx of congestive heart failure Status: Chronic (16) Seizure disorder Status: Chronic - Assessment and Plan (Free Text) Plan: Vanco level today therapeutic, begin Vanco IV at lower dosis, continue V Mask 50% , NG tube feeding 50%, continue Merren, Keppra, Lasix, Duo Neb, Intesivist discussed with Patient's son by Phone ( on [place]) his mother clinical conditions, He does not appears to understand his mother poor prognosis. Patient's son stated He will come to see her. Critical care time: 33 min.
--- NOTE | 2018-05-31 17:54 | CP.PCM.PN ---
Subjective - Date & Time of Evaluation Date of Evaluation: 05/31/18 Time of Evaluation: 17:53 - Subjective Subjective: Patient is not doing well Increase Hco3 increase WBC wound is stable no odor not DNR family has been contacted continue current care Objective - Vital Signs/Intake and Output Vital Signs (last 24 hours): Temp Pulse Resp BP Pulse Ox 99.7 F H 122 H 28 H 127/51 L 100 05/31/18 16:00 05/31/18 16:00 05/31/18 16:00 05/31/18 16:00 05/31/18 16:00 Intake and Output: 05/31/18 05/31/18 06:59 18:59 Intake Total 756 860 Output Total 500 1400 Balance 256 -540 - Medications Medications: Current Medications Albuterol Sulfate (Albuterol 0.083% Inhal Chantale (2.5 Mg/3 Ml) Ud) 2.5 mg INH RQID BELLE Last Admin: 05/31/18 16:36 Dose: 2.5 mg Albuterol Sulfate (Albuterol 0.083% Inhal Chantale (2.5 Mg/3 Ml) Ud) 2.5 mg INH RQ4 PRN PRN Reason: Shortness of Breath Last Admin: 05/30/18 00:25 Dose: 2.5 mg Dimethicone (Proshield Plus Skin Protectant) 1 applic TOP Q8 BELLE Last Admin: 05/31/18 16:31 Dose: 1 applic Furosemide (Lasix) 40 mg IVP DAILY [facility] Last Admin: 05/31/18 08:34 Dose: 40 mg Vancomycin HCl 500 mg/ Sodium (Chloride) 100 mls @ 100 mls/hr IVPB Q12 [facility]; Protocol Last Admin: 05/31/18 13:35 Dose: 100 mls/hr Meropenem 1 gm/ Sodium (Chloride) 100 mls @ 100 mls/hr IVPB Q12 [facility]; Protocol Last Admin: 05/31/18 08:35 Dose: 100 mls/hr Lactulose (Enulose) 20 gm PO DAILY PRN PRN Reason: Constipation Last Admin: 05/29/18 18:39 Dose: 20 gm Levetiracetam (Keppra) 500 mg PO BID [facility] Last Admin: 05/31/18 16:31 Dose: 500 mg Pantoprazole Sodium (Protonix Inj) 40 mg IVP DAILY [facility] Last Admin: 05/31/18 08:36 Dose: 40 mg - Labs Labs: 05/31/18 04:20 05/31/18 04:20 PT 20.0 Seconds (9.8-13.1) H 05/20/18 13:00 INR 1.8 05/20/18 13:00 APTT 30.8 Seconds (25.6-37.1) 05/20/18 13:00
--- NOTE | 2018-05-31 20:45 | CP.PCM.PN ---
<Marc Schrader - Last Filed: 05/31/18 22:27> Subjective - Date & Time of Evaluation Date of Evaluation: 05/31/18 Time of Evaluation: 20:42 - Subjective Subjective: Marc Schrader DO PGY1 - Internal Medicne Economic Development Director Patient was seen and examined at bedside this evening in ICU Patient was sleeping upon evaluation ; responsive to sternal rub; No issues reported throughout the day; patient does remain tachycardic / normotensive Objective - Vital Signs/Intake and Output Vital Signs (last 24 hours): Temp Pulse Resp BP Pulse Ox 99.7 F H 104 H 28 H 120/52 L 100 05/31/18 16:00 05/31/18 18:00 05/31/18 18:00 05/31/18 18:00 05/31/18 18:00 Intake and Output: 05/31/18 06/01/18 18:59 06:59 Intake Total 940 Output Total 1450 Balance -510 - Medications Medications: Current Medications Albuterol Sulfate (Albuterol 0.083% Inhal Chantale (2.5 Mg/3 Ml) Ud) 2.5 mg INH RQID BELLE Last Admin: 05/31/18 19:33 Dose: 2.5 mg Albuterol Sulfate (Albuterol 0.083% Inhal Chantale (2.5 Mg/3 Ml) Ud) 2.5 mg INH RQ4 PRN PRN Reason: Shortness of Breath Last Admin: 05/30/18 00:25 Dose: 2.5 mg Dimethicone (Proshield Plus Skin Protectant) 1 applic TOP Q8 BELLE Last Admin: 05/31/18 16:31 Dose: 1 applic Furosemide (Lasix) 40 mg IVP DAILY [facility] Last Admin: 05/31/18 08:34 Dose: 40 mg Vancomycin HCl 500 mg/ Sodium (Chloride) 100 mls @ 100 mls/hr IVPB Q12 [facility]; Protocol Last Admin: 05/31/18 13:35 Dose: 100 mls/hr Meropenem 1 gm/ Sodium (Chloride) 100 mls @ 100 mls/hr IVPB Q12 [facility]; Protocol Last Admin: 05/31/18 08:35 Dose: 100 mls/hr Lactulose (Enulose) 20 gm PO DAILY PRN PRN Reason: Constipation Last Admin: 05/29/18 18:39 Dose: 20 gm Levetiracetam (Keppra) 500 mg PO BID [facility] Last Admin: 05/31/18 16:31 Dose: 500 mg Pantoprazole Sodium (Protonix Inj) 40 mg IVP DAILY [facility] Last Admin: 05/31/18 08:36 Dose: 40 mg - Labs Labs: 05/31/18 04:20 05/31/18 04:20 PT 20.0 Seconds (9.8-13.1) H 05/20/18 13:00 INR 1.8 05/20/18 13:00 APTT 30.8 Seconds (25.6-37.1) 05/20/18 13:00 - Constitutional Appears: Cachectic, Chronically Ill - Head Exam Head Exam: ATRAUMATIC, NORMOCEPHALIC - Eye Exam Eye Exam: Normal appearance - Respiratory Exam Respiratory Exam: Rales, Rhonchi - Cardiovascular Exam Cardiovascular Exam: Tachycardia, RRR, +S1, +S2 - GI/Abdominal Exam GI & Abdominal Exam: Soft, Normal Bowel Sounds. absent: Tenderness - Extremities Exam Additional comments: Significant BL UE edema w/ pitting Limited BL LE edema no pitting - Neurological Exam Neurological Exam: Alert, Awake Assessment and Plan (1) Sepsis Status: Acute (2) Hx of congestive heart failure Status: Chronic (3) HTN (hypertension) Status: Acute (4) Abdominal pain Status: Acute (5) Sepsis Status: Acute - Assessment and Plan (Free Text) Plan: 83F w/ PMH Alzheimers, HTN, HLD, Asthma, Anxiety, diastolic CHF, previously normal stress test (may 2017) admitted for sepsis growing ESBL in urine + sputum - cardiology consulted for management of chronic cardiac conditions HD Stable overnight w/ mild desaturations; afebrile w/ leukocytosis. Start Toprol XL 25 QD Contraction alkalosis noted ;will Decrease lasix to daily Most recent echo (05/2018) - EF of 60-65%; Grade 1- abnormal relaxation pattern w/ mild AR and mild TR Troponin + BNP wnl Further reccs per Dr. Varghese <Juarez Varghese - Last Filed: 06/05/18 07:00> Objective - Vital Signs/Intake and Output Vital Signs (last 24 hours): Temp Pulse Resp BP Pulse Ox 97.8 F 105 H 20 135/80 96 06/05/18 00:30 06/05/18 00:30 06/05/18 00:30 06/05/18 00:30 06/05/18 00:30 Intake and Output: 06/05/18 06/05/18 06:59 18:59 Intake Total 200 Balance 200 - Medications Medications: Current Medications Albuterol Sulfate (Albuterol 0.083% Inhal Chantale (2.5 Mg/3 Ml) Ud) 2.5 mg INH RQID BELLE Last Admin: 06/04/18 20:16 Dose: 2.5 mg Albuterol Sulfate (Albuterol 0.083% Inhal Chantale (2.5 Mg/3 Ml) Ud) 2.5 mg INH RQ4 PRN PRN Reason: Shortness of Breath Last Admin: 05/30/18 00:25 Dose: 2.5 mg Dimethicone (Proshield Plus Skin Protectant) 1 applic TOP Q8 BELLE Last Admin: 06/05/18 01:00 Dose: 1 applic Famotidine (Pepcid) 40 mg PO DAILY [facility] Last Admin: 06/04/18 08:33 Dose: 40 mg Furosemide (Lasix) 40 mg IVP DAILY [facility] Last Admin: 06/01/18 08:52 Dose: 40 mg Meropenem 1 gm/ Sodium (Chloride) 100 mls @ 100 mls/hr IVPB Q12 [facility]; Protocol Last Admin: 06/04/18 21:51 Dose: 100 mls/hr Vancomycin HCl 500 mg/ Sodium (Chloride) 100 mls @ 100 mls/hr IVPB Q12@1000,2200 [facility]; Protocol Last Admin: 06/04/18 21:53 Dose: 100 mls/hr Lactulose (Enulose) 20 gm PO DAILY PRN PRN Reason: Constipation Last Admin: 05/29/18 18:39 Dose: 20 gm Levetiracetam (Keppra) 500 mg PO BID [facility] Last Admin: 06/04/18 17:16 Dose: 500 mg Morphine Sulfate (Morphine) 2 mg IVP Q6 PRN PRN Reason: Pain, moderate (4-7) - Labs Labs: 06/04/18 04:21 06/04/18 04:21 PT 20.0 Seconds (9.8-13.1) H 05/20/18 13:00 INR 1.8 05/20/18 13:00 APTT 30.8 Seconds (25.6-37.1) 05/20/18 13:00 Assessment and Plan (1) CHF (congestive heart failure) Status: Acute (2) Sepsis Status: Acute (3) Encephalopathy acute Status: Acute (4) HTN (hypertension) Status: Acute Attending/Attestation - Attestation I have personally seen and examined this patient.: Yes I have fully participated in the care of the patient.: Yes I have reviewed all pertinent clinical information, including history, physical exam and plan: Yes
[2018-06-01] MEDS: Proshield Plus GEL TOP SCH ×3 (06:16→16:11)
[2018-06-01 06:22] LABS: HEMOGLOBIN 8.7 g/dL (12.0-16.0); MEAN CORPUSCULAR HEMOGLOBIN 28.7 pg (27.0-31.0); MEAN CORPUSCULAR HGB CONC 32.6 g/dL (33.0-37.0); RBC 3.01 Mil/uL (3.80-5.20); WHITE BLOOD COUNT 9.6 K/uL (4.8-10.8)
[2018-06-01 07:00] LABS: BLOOD UREA NITROGEN 17 mg/dl (7-17); GFR NON-AFRICAN AMERICAN > 60
[2018-06-01] MEDS: Albuterol 0.083% Inhal Sol (2.5 mg/3 mL) UD INH SCH ×4 (08:08→19:03)
[2018-06-01 08:40] LABS: ABG ALLEN TEST YES; ARTERIAL BLOOD GAS HCO3 44.4 mmol/L (21-28); ARTERIAL BLOOD GAS O2 SAT 97.3 % (95-98); ARTERIAL BLOOD GAS PCO2 64 mm/Hg (35-45); ARTERIAL BLOOD GAS PH 7.51 (7.35-7.45); ARTERIAL BLOOD GAS PO2 68 mm/Hg (80-100); ARTERIAL BLOOD GAS TCO2 53.1 mmol/L (22-28)
[2018-06-01] MEDS: levETIRAcetam 100 mg/ml (5ml) Oral Syringe PO SCH ×2 (08:52→16:10)
[2018-06-01] MEDS: Meropenem 1 GM in Sodium Chloride 0.9% 100 ML IVPB SCH ×2 (08:53→20:16)
[2018-06-01] MEDS ORDERED: Chlorhexidine Gluconate 1 APPL/PKT TP ONE (09:07)
--- NOTE | 2018-06-01 09:45 | CP.CCUPN ---
CCU Subjective - Physician Review Subjective (Free Text): Neuromental status unchanged: Eyes closed, not responsive nor follows any verbal commands or cues, intermittently moaning, on 50% VM this AM with 99% SPO2, NGT with ongoing tube feeds. Other vitals and I/O's reviewed. Afebrile, no fever spikes, BP 128/57, HR 100s sinus, RR 20. Near - Even fluid balance last 24H. ROS: No other pertinent negs or positives on 10+ system review obtainable, nonverbal. PMSFH: All other Nursing and physician documentation reviewed to date; no new pertinent info noted relevant to current medical problems. EXAM- HEENT: no icterus, R gaze preference, pupils 3 mm bilat and reactive. NECK: No JVD visible, supple, carotids equal upstroke bilat/no bruit CHEST: decreased BS at the bases, no wheezes audible HEART: regular, distant, tachy S1S2, no rubs or murmurs noted ABD: softly and nontender, no guarding, no organomegaly, BS hypoactive. EXT: + LE edema, no calf tenderness or palpable cords, distal pulses intact and symmetrical. Mod size sacral decub stage 4, thoracic DTI. NEURO: withdraws arms to pain, + tone in all extremities, moans when lightly touched. SKIN: no rashes, warm and dry LABS: WBC= 9.6 HGB= 8.7 PLTs= 170K Na= 138 K= 3.6 CL= 87 HCO3= 46 BUN/Cr= 17/0.3 BS= 169 IMPRESSION / MAJOR PROBLEMS NOW: 1. AMS, r/o NCSE, vs other occult seizure activity, metabolic Encephalopathy, possible Sepsis Encephalopathy; h/o Dementia 2. Acute resp insuff 2 bilateral Pneumonia, r/o Aspiration 3. h/o ORIF R Hip; L Femoral fracture repair 4. Chronic Disease Anemia 5. New Thrombocytopenia this Admission, h/o of Low Platelets; r/o Drug effect, DIC PLAN: No Overall New Recommendations today - 1. [place] MV support for any deterioration in resp status. Too lethargic for BiPAP, already alkalotic with PCO2 in the 60s today and PO2 68. HFNC only delivers up to 40 LPM and she is breathing with her mouth open. 2. Merrem / Vanco 3. Daily Lasix ongoing. K supplemented. 4. Had telephone discussion with son, Steve in [place] yesterday regarding patients present clinical status: essentially no overall improvement in status since ICU admission. Discussed goals of care, but son states he will fly in from [place] to see Mother to discuss options with her.
--- NOTE | 2018-06-01 14:41 | CP.PCM.PN ---
Subjective - Date & Time of Evaluation Date of Evaluation: 06/01/18 Time of Evaluation: 10:00 - Subjective Subjective: F/U AMS moaning, non verbal, no response to tactil stimuli Objective - Vital Signs/Intake and Output Vital Signs (last 24 hours): Temp Pulse Resp BP Pulse Ox 98.0 F 93 H 25 H 113/53 L 100 06/01/18 12:54 06/01/18 14:00 06/01/18 14:00 06/01/18 14:00 06/01/18 14:00 Intake and Output: 06/01/18 06/01/18 06:59 18:59 Intake Total 880 678 Output Total 400 Balance 480 678 - Medications Medications: Current Medications Albuterol Sulfate (Albuterol 0.083% Inhal Chantale (2.5 Mg/3 Ml) Ud) 2.5 mg INH RQID BELLE Last Admin: 06/01/18 11:29 Dose: 2.5 mg Albuterol Sulfate (Albuterol 0.083% Inhal Chantale (2.5 Mg/3 Ml) Ud) 2.5 mg INH RQ4 PRN PRN Reason: Shortness of Breath Last Admin: 05/30/18 00:25 Dose: 2.5 mg Dimethicone (Proshield Plus Skin Protectant) 1 applic TOP Q8 [facility] Last Admin: 06/01/18 08:54 Dose: 1 applic Furosemide (Lasix) 40 mg IVP DAILY [facility] Last Admin: 06/01/18 08:52 Dose: 40 mg Vancomycin HCl 500 mg/ Sodium (Chloride) 100 mls @ 100 mls/hr IVPB Q12 [facility]; Protocol Last Admin: 06/01/18 08:55 Dose: 100 mls/hr Meropenem 1 gm/ Sodium (Chloride) 100 mls @ 100 mls/hr IVPB Q12 [facility]; Protocol Last Admin: 06/01/18 08:53 Dose: 100 mls/hr Lactulose (Enulose) 20 gm PO DAILY PRN PRN Reason: Constipation Last Admin: 05/29/18 18:39 Dose: 20 gm Levetiracetam (Keppra) 500 mg PO BID [facility] Last Admin: 06/01/18 08:52 Dose: 500 mg Morphine Sulfate (Morphine) 2 mg IVP Q6 PRN PRN Reason: Pain, moderate (4-7) Last Admin: 06/01/18 11:25 Dose: 2 mg Pantoprazole Sodium (Protonix Inj) 40 mg IVP DAILY [facility] Last Admin: 06/01/18 08:55 Dose: 40 mg - Labs Labs: 06/01/18 06:00 06/01/18 06:00 PT 20.0 Seconds (9.8-13.1) H 05/20/18 13:00 INR 1.8 05/20/18 13:00 APTT 30.8 Seconds (25.6-37.1) 05/20/18 13:00 - Constitutional Appears: Chronically Ill - Head Exam Head Exam: NORMAL INSPECTION - Eye Exam Additional comments: Pupils sluggish reactive - ENT Exam Additional comments: NGT in place - Neck Exam Neck Exam: Normal Inspection - Respiratory Exam Respiratory Exam: Decreased Breath Sounds (at bases), Rhonchi (scattered) - Cardiovascular Exam Cardiovascular Exam: Tachycardia - GI/Abdominal Exam GI & Abdominal Exam: Soft, Normal Bowel Sounds - Exam Additional comments: De La Cruz cath - Extremities Exam Additional comments: L heel DTI improved, R hip surgical incision healing well, R TLC. - Back Exam Additional comments: L-S decubitus stage IV, upper back DTI improving. - Neurological Exam Additional comments: non verbal, unable to follows commands,no response to verbal stimuli, generalized weakness. - Skin Skin Exam: Warm Assessment and Plan (1) CHF (congestive heart failure) Status: Acute (2) Aspiration pneumonia Status: Acute (3) Sepsis Status: Acute (4) Toxic metabolic encephalopathy Status: Acute (5) Altered mental status Status: Acute (6) UTI (urinary tract infection) Status: Acute (7) Dehydration Status: Resolved (8) Hypernatremia Status: Resolved (9) Decubitus ulcer of sacral area Status: Acute (10) Deep tissue injury Status: Acute (11) Chronic back pain Status: Chronic (12) Hx of fracture of femur Status: Chronic (13) HTN (hypertension) Status: Acute (14) COPD (chronic obstructive pulmonary disease) Status: Chronic (15) Hx of congestive heart failure Status: Chronic (16) Seizure disorder Status: Chronic - Assessment and Plan (Free Text) Plan: DuoNeb, Keppra, Lasix, Morphine, NG tube feeding, V mask 50%, transfer Med-Surg Critical care time: 31 min.
--- NOTE | 2018-06-01 14:54 | CP.PCM.PN ---
Subjective - Date & Time of Evaluation Date of Evaluation: 06/01/18 Time of Evaluation: 10:26 - Subjective Subjective: Neurology Follow-Up Note: Mrs. Laureano was evaluated this morning in the ICU. Pt remains lethargic, nonverbal and unable to answer questions or follow commands. Chart reviewed. ROS unobtainable from pt 2/2 her current condition. Objective - Vital Signs/Intake and Output Vital Signs (last 24 hours): Temp Pulse Resp BP Pulse Ox 98.0 F 93 H 25 H 113/53 L 100 06/01/18 12:54 06/01/18 14:00 06/01/18 14:00 06/01/18 14:00 06/01/18 14:00 Intake and Output: 06/01/18 06/01/18 06:59 18:59 Intake Total 880 678 Output Total 400 Balance 480 678 - Medications Medications: Current Medications Albuterol Sulfate (Albuterol 0.083% Inhal Chantale (2.5 Mg/3 Ml) Ud) 2.5 mg INH RQID [facility] Last Admin: 06/01/18 11:29 Dose: 2.5 mg Albuterol Sulfate (Albuterol 0.083% Inhal Chantale (2.5 Mg/3 Ml) Ud) 2.5 mg INH RQ4 PRN PRN Reason: Shortness of Breath Last Admin: 05/30/18 00:25 Dose: 2.5 mg Dimethicone (Proshield Plus Skin Protectant) 1 applic TOP Q8 [facility] Last Admin: 06/01/18 08:54 Dose: 1 applic Furosemide (Lasix) 40 mg IVP DAILY [facility] Last Admin: 06/01/18 08:52 Dose: 40 mg Vancomycin HCl 500 mg/ Sodium (Chloride) 100 mls @ 100 mls/hr IVPB Q12 [facility]; Protocol Last Admin: 06/01/18 08:55 Dose: 100 mls/hr Meropenem 1 gm/ Sodium (Chloride) 100 mls @ 100 mls/hr IVPB Q12 [facility]; Protocol Last Admin: 06/01/18 08:53 Dose: 100 mls/hr Lactulose (Enulose) 20 gm PO DAILY PRN PRN Reason: Constipation Last Admin: 05/29/18 18:39 Dose: 20 gm Levetiracetam (Keppra) 500 mg PO BID [facility] Last Admin: 06/01/18 08:52 Dose: 500 mg Morphine Sulfate (Morphine) 2 mg IVP Q6 PRN PRN Reason: Pain, moderate (4-7) Last Admin: 06/01/18 11:25 Dose: 2 mg Pantoprazole Sodium (Protonix Inj) 40 mg IVP DAILY [facility] Last Admin: 06/01/18 08:55 Dose: 40 mg - Labs Labs: 06/01/18 06:00 06/01/18 06:00 PT 20.0 Seconds (9.8-13.1) H 05/20/18 13:00 INR 1.8 05/20/18 13:00 APTT 30.8 Seconds (25.6-37.1) 05/20/18 13:00 - Constitutional Appears: Other (nonverbal; moans during exam; lethargic; doesn't follow commands ) - Head Exam Head Exam: ATRAUMATIC, NORMAL INSPECTION, NORMOCEPHALIC - Eye Exam Eye Exam: Normal appearance Pupil Exam: NORMAL ACCOMODATION, PERRL - ENT Exam ENT Exam: Mucous Membranes Moist - Neck Exam Neck Exam: Normal Inspection - Cardiovascular Exam Cardiovascular Exam: Tachycardia (hr 101 during exam) - GI/Abdominal Exam GI & Abdominal Exam: Soft Additional comments: ngt in place w feedings - Extremities Exam Additional comments: edema still noted to hands slight movement of arms to sternal rub, not legs +resistance and tone noted to BUE - Neurological Exam Neurological Exam: Altered Additional comments: Pt remains lethargic, nonverbal and moans on occasion during exam. She is still not as arousable to sternal rub as previous days, however, did open eyes to sternal rub this morning. Still unable to follow commands. BUE +resistance and tone noted; BUE fall immediately to bed when raised, no resistance noted. No tremors noted. Toes down-going b/l. Unable to assess sensation 2/2 pt nonverbal and not following commands. - Psychiatric Exam Additional comments: nonverbal, moans during exam, lethargic - Skin Skin Exam: Normal Color Assessment and Plan (1) Toxic metabolic encephalopathy Assessment & Plan: Imaging reviewed: -MRI brain without contrast (05/29/18): Stable age-related neuro degenerative changes are identified without acute interval findings as per above. -EEG (05/22/18): This is an abnormal EEG record that demonstrate the presence of a mild to moderate non specific diffuse disturbance of cortical activity, this is in keeping with a diffuse way matter dysfunction. These findings do not support a specific etiology. 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 No seizures were captured. -CT head (05/20/18): No acute intracranial pathology. Age-related changes. Mild sphenoid sinus disease. No significant interval change. Overall, there have been no changes nor improvements in pt's condition. Mrs. Laureano's mentation is still not improved. Recent imaging shows no acute intracranial involvement. She continues to have multiple infectious processes which may be contributing to her mental status. -Continue current treatment and management of infectious process and electrolyte imbalance. -Continue Keppra as ordered as the pt seems to be tolerating and has had no seizures since admission. -ICU notes reviewed; pt's son updated regarding condition. Will possibly travel to [place] to visit mother in the hospital. -Notify neuro team of any acute changes in pt's condition. Case discussed with Dr. Flanagan Status: Acute
--- NOTE | 2018-06-01 17:39 | CP.PCM.PN ---
<Marc Schrader - Last Filed: 06/01/18 22:13> Subjective - Date & Time of Evaluation Date of Evaluation: 06/01/18 Time of Evaluation: 17:37 - Subjective Subjective: Marc Schrader DO PGY1 - Internal Medicine Metall[employer] Engineering Technician - Cardiology Note for Dr. Varghese Patient was seen and examined at bedside this afternoon No change in presentation from day prior; continues to moan - awakens to sternal rub. Objective - Vital Signs/Intake and Output Vital Signs (last 24 hours): Temp Pulse Resp BP Pulse Ox 97.2 F L 93 H 21 113/53 L 100 06/01/18 16:00 06/01/18 16:00 06/01/18 16:00 06/01/18 16:00 06/01/18 16:00 Intake and Output: 06/01/18 06/01/18 06:59 18:59 Intake Total 880 812 Output Total 400 Balance 480 812 - Medications Medications: Current Medications Albuterol Sulfate (Albuterol 0.083% Inhal Chantale (2.5 Mg/3 Ml) Ud) 2.5 mg INH RQID BELLE Last Admin: 06/01/18 15:04 Dose: 2.5 mg Albuterol Sulfate (Albuterol 0.083% Inhal Chantale (2.5 Mg/3 Ml) Ud) 2.5 mg INH RQ4 PRN PRN Reason: Shortness of Breath Last Admin: 05/30/18 00:25 Dose: 2.5 mg Dimethicone (Proshield Plus Skin Protectant) 1 applic TOP Q8 [facility] Last Admin: 06/01/18 16:11 Dose: 1 applic Furosemide (Lasix) 40 mg IVP DAILY [facility] Last Admin: 06/01/18 08:52 Dose: 40 mg Vancomycin HCl 500 mg/ Sodium (Chloride) 100 mls @ 100 mls/hr IVPB Q12 [facility]; Protocol Last Admin: 06/01/18 08:55 Dose: 100 mls/hr Meropenem 1 gm/ Sodium (Chloride) 100 mls @ 100 mls/hr IVPB Q12 [facility]; Protocol Last Admin: 06/01/18 08:53 Dose: 100 mls/hr Lactulose (Enulose) 20 gm PO DAILY PRN PRN Reason: Constipation Last Admin: 05/29/18 18:39 Dose: 20 gm Levetiracetam (Keppra) 500 mg PO BID [facility] Last Admin: 06/01/18 16:10 Dose: 500 mg Morphine Sulfate (Morphine) 2 mg IVP Q6 PRN PRN Reason: Pain, moderate (4-7) Last Admin: 06/01/18 11:25 Dose: 2 mg Pantoprazole Sodium (Protonix Inj) 40 mg IVP DAILY [facility] Last Admin: 06/01/18 08:55 Dose: 40 mg - Labs Labs: 06/01/18 06:00 06/01/18 06:00 PT 20.0 Seconds (9.8-13.1) H 05/20/18 13:00 INR 1.8 05/20/18 13:00 APTT 30.8 Seconds (25.6-37.1) 05/20/18 13:00 - Constitutional Appears: Cachectic, Chronically Ill - Head Exam Head Exam: ATRAUMATIC, NORMOCEPHALIC - Eye Exam Eye Exam: Normal appearance - Respiratory Exam Respiratory Exam: Rales, Rhonchi - Cardiovascular Exam Cardiovascular Exam: Tachycardia, RRR, +S1, +S2 - GI/Abdominal Exam GI & Abdominal Exam: Soft, Normal Bowel Sounds. absent: Tenderness - Extremities Exam Additional comments: Significant BL UE edema w/ pitting - improving at this time No LE edema - Neurological Exam Neurological Exam: Alert, Awake Assessment and Plan (1) Sepsis Status: Acute (2) Hx of congestive heart failure Status: Chronic (3) HTN (hypertension) Status: Acute (4) Abdominal pain Status: Acute (5) Sepsis Status: Acute - Assessment and Plan (Free Text) Plan: 83F w/ PMH Alzheimers, HTN, HLD, Asthma, Anxiety, diastolic CHF, previously normal stress test (may 2017) admitted for sepsis growing ESBL in urine + sputum - cardiology consulted for management of chronic cardiac conditions HD Stable overnight w/ mild desaturations; afebrile w/ leukocytosis. Heart Rate improved C/w Toprol XL 25 QD Contraction alkalosis noted ;will Decrease lasix to daily Most recent echo (05/2018) - EF of 60-65%; Grade 1- abnormal relaxation pattern w/ mild AR and mild TR Troponin + BNP wnl Further reccs per Dr. Varghese <Juarez Varghese - Last Filed: 06/05/18 07:00> Objective - Vital Signs/Intake and Output Vital Signs (last 24 hours): Temp Pulse Resp BP Pulse Ox 97.8 F 105 H 20 135/80 96 06/05/18 00:30 06/05/18 00:30 06/05/18 00:30 06/05/18 00:30 06/05/18 00:30 Intake and Output: 06/05/18 06/05/18 06:59 18:59 Intake Total 200 Balance 200 - Medications Medications: Current Medications Albuterol Sulfate (Albuterol 0.083% Inhal Chantale (2.5 Mg/3 Ml) Ud) 2.5 mg INH RQID [facility]LE Last Admin: 06/04/18 20:16 Dose: 2.5 mg Albuterol Sulfate (Albuterol 0.083% Inhal Chantale (2.5 Mg/3 Ml) Ud) 2.5 mg INH RQ4 PRN PRN Reason: Shortness of Breath Last Admin: 05/30/18 00:25 Dose: 2.5 mg Dimethicone (Proshield Plus Skin Protectant) 1 applic TOP Q8 [facility] Last Admin: 06/05/18 01:00 Dose: 1 applic Famotidine (Pepcid) 40 mg PO DAILY [facility] Last Admin: 06/04/18 08:33 Dose: 40 mg Furosemide (Lasix) 40 mg IVP DAILY [facility] Last Admin: 06/01/18 08:52 Dose: 40 mg Meropenem 1 gm/ Sodium (Chloride) 100 mls @ 100 mls/hr IVPB Q12 [facility]; Protocol Last Admin: 06/04/18 21:51 Dose: 100 mls/hr Vancomycin HCl 500 mg/ Sodium (Chloride) 100 mls @ 100 mls/hr IVPB Q12@1000,2200 [facility]; Protocol Last Admin: 06/04/18 21:53 Dose: 100 mls/hr Lactulose (Enulose) 20 gm PO DAILY PRN PRN Reason: Constipation Last Admin: 05/29/18 18:39 Dose: 20 gm Levetiracetam (Keppra) 500 mg PO BID [facility] Last Admin: 06/04/18 17:16 Dose: 500 mg Morphine Sulfate (Morphine) 2 mg IVP Q6 PRN PRN Reason: Pain, moderate (4-7) - Labs Labs: 06/04/18 04:21 06/04/18 04:21 PT 20.0 Seconds (9.8-13.1) H 05/20/18 13:00 INR 1.8 05/20/18 13:00 APTT 30.8 Seconds (25.6-37.1) 05/20/18 13:00 Assessment and Plan (1) CHF (congestive heart failure) Status: Acute (2) Sepsis Status: Acute (3) Encephalopathy acute Status: Acute (4) HTN (hypertension) Status: Acute Attending/Attestation - Attestation I have personally seen and examined this patient.: Yes I have fully participated in the care of the patient.: Yes I have reviewed all pertinent clinical information, including history, physical exam and plan: Yes
[2018-06-02] MEDS: Proshield Plus GEL TOP SCH ×3 (00:02→16:16)
[2018-06-02] MEDS: Albuterol 0.083% Inhal Sol (2.5 mg/3 mL) UD INH SCH ×4 (07:17→19:35)
[2018-06-02] MEDS: Meropenem 1 GM in Sodium Chloride 0.9% 100 ML IVPB SCH ×2 (08:39→21:23)
[2018-06-02] MEDS: levETIRAcetam 100 mg/ml (5ml) Oral Syringe PO SCH ×2 (08:39→16:16)
--- NOTE | 2018-06-02 10:36 | CP.PCM.PN ---
Subjective - Date & Time of Evaluation Date of Evaluation: 06/02/18 Time of Evaluation: 10:36 - Subjective Subjective: ID Note- Patient seen and examined today in ICU. remains lethargic and only moans. As per telegrapher agent patient's son has made pt. DNR today. as per nurse no diarrhea. Objective - Vital Signs/Intake and Output Vital Signs (last 24 hours): Temp Pulse Resp BP Pulse Ox 97.8 F 89 16 120/48 L 98 06/02/18 08:00 06/02/18 08:00 06/02/18 08:00 06/02/18 08:00 06/02/18 08:00 Intake and Output: 06/02/18 06/02/18 06:59 18:59 Intake Total 630 Output Total 400 Balance 230 - Medications Medications: Current Medications Albuterol Sulfate (Albuterol 0.083% Inhal Chantale (2.5 Mg/3 Ml) Ud) 2.5 mg INH RQID BELLE Last Admin: 06/02/18 07:17 Dose: 2.5 mg Albuterol Sulfate (Albuterol 0.083% Inhal Chantale (2.5 Mg/3 Ml) Ud) 2.5 mg INH RQ4 PRN PRN Reason: Shortness of Breath Last Admin: 05/30/18 00:25 Dose: 2.5 mg Dimethicone (Proshield Plus Skin Protectant) 1 applic TOP Q8 [facility] Last Admin: 06/02/18 08:40 Dose: 1 applic Furosemide (Lasix) 40 mg IVP DAILY [facility] Last Admin: 06/01/18 08:52 Dose: 40 mg Vancomycin HCl 500 mg/ Sodium (Chloride) 100 mls @ 100 mls/hr IVPB Q12 [facility]; Protocol Last Admin: 06/02/18 08:40 Dose: 100 mls/hr Meropenem 1 gm/ Sodium (Chloride) 100 mls @ 100 mls/hr IVPB Q12 [facility]; Protocol Last Admin: 06/02/18 08:39 Dose: 100 mls/hr Lactulose (Enulose) 20 gm PO DAILY PRN PRN Reason: Constipation Last Admin: 05/29/18 18:39 Dose: 20 gm Levetiracetam (Keppra) 500 mg PO BID [facility] Last Admin: 06/02/18 08:39 Dose: 500 mg Morphine Sulfate (Morphine) 2 mg IVP Q6 PRN PRN Reason: Pain, moderate (4-7) Last Admin: 06/02/18 08:25 Dose: 2 mg Pantoprazole Sodium (Protonix Inj) 40 mg IVP DAILY [facility] Last Admin: 06/02/18 08:40 Dose: 40 mg - Labs Labs: - Additional Findings Additional findings: - Constitutional Appears: Chronically Ill Additional comments: nonverbal, lethargic - Head Exam Head Exam: ATRAUMATIC - ENT Exam Additional comments: dry oral mucosa - Neck Exam Neck exam: Positive for: Full Rom - Respiratory Exam Additional comments: tachypneic no wheezing decreased breath sounds at bases - Cardiovascular Exam Cardiovascular Exam: RRR, +S1, +S2 - GI/Abdominal Exam GI & Abdominal Exam: Normal Bowel Sounds, Soft Additional comments: NT, ND - Extremities Exam Additional comments: right femur surgical site with steri -strips in place clean/dry/Intact no erythema has left great toe small ulcer at the tip , no discharge, no open wound - Neurological Exam Neurological exam: Altered but more awake today - Skin Additional comments: mid sacral stage 4 decub, no discharge mid upper back 2 smaller ulcerations one stage 2 with other one stage 1 Laboratory Results - last 72 hr 05/31/18 05/31/18 05/31/18 04:20 04:20 04:20 WBC 11.4 H RBC 3.11 L Hgb 8.7 L Hct 27.4 L MCV 88.1 MCH 28.0 MCHC 31.8 L RDW 17.2 H Plt Count 159 pCO2 pO2 HCO3 ABG pH ABG Total CO2 ABG O2 Saturation ABG Base Excess Oswaldo Test ABG Potassium A-a O2 Difference Glucose Lactate FiO2 Blood Gas Comments Crit Value Called To Crit Value Called By Crit Value Read Back Blood Gas Notified Time Sodium 137 Potassium 3.0 L Chloride 82 L Carbon Dioxide > 40 H* Anion Gap 18 BUN 16 Creatinine 0.3 L Est GFR ( Amer) > 60 Est GFR (Non-Af Amer) > 60 Random Glucose 223 H Calcium 7.9 L Total Bilirubin 0.4 AST 22 ALT 24 Alkaline Phosphatase 117 Total Protein 5.7 L Albumin 2.4 L Globulin 3.3 Albumin/Globulin Ratio 0.7 L Arterial Blood Potassium Vancomycin Trough 11.7 H 05/31/18 06/01/18 06/01/18 04:31 06:00 06:00 WBC 9.6 RBC 3.01 L Hgb 8.7 L Hct 26.5 L MCV 88.0 MCH 28.7 MCHC 32.6 L RDW 17.0 H Plt Count 170 pCO2 59 H pO2 51 L HCO3 46.2 H* ABG pH 7.57 H ABG Total CO2 55.9 H ABG O2 Saturation 91.7 L ABG Base Excess 27.5 H Oswaldo Test Yes ABG Potassium 3.0 L A-a O2 Difference 232.0 Glucose 226 H Lactate 1.8 FiO2 50.0 Blood Gas Comments Crit Value Called To Dr gisele whyte Crit Value Called By Mj Crit Value Read Back Y Blood Gas Notified Time 441 Sodium 137.0 138 Potassium 3.6 Chloride 93.0 L 87 L Carbon Dioxide 46 H* Anion Gap 9 L BUN 17 Creatinine 0.3 L Est GFR ( Amer) > 60 Est GFR (Non-Af Amer) > 60 Random Glucose 169 H Calcium 8.0 L Total Bilirubin AST ALT Alkaline Phosphatase Total Protein Albumin Globulin Albumin/Globulin Ratio Arterial Blood Potassium 3.0 L Vancomycin Trough 06/01/18 06/02/18 07:23 06:00 WBC RBC Hgb Hct MCV MCH MCHC RDW Plt Count pCO2 64 H pO2 68 L HCO3 44.4 H* ABG pH 7.51 H ABG Total CO2 53.1 H ABG O2 Saturation 97.3 ABG Base Excess 25.0 H Oswaldo Test Yes ABG Potassium 3.5 L A-a O2 Difference 209.0 Glucose 183 H Lactate 1.2 FiO2 50.0 Blood Gas Comments 50%v mask Crit Value Called To Tameka mina Crit Value Called By 15 Crit Value Read Back Y Blood Gas Notified Time 839 Sodium 138.0 Potassium Chloride 98.0 Carbon Dioxide Anion Gap BUN Creatinine Est GFR ( Amer) Est GFR (Non-Af Amer) Random Glucose Calcium Total Bilirubin AST ALT Alkaline Phosphatase Total Protein Albumin Globulin Albumin/Globulin Ratio Arterial Blood Potassium 3.5 L Vancomycin Trough 6.5 Microbiology 05/25/18 16:35 Blood-Venous Blood Culture - Final NO GROWTH AFTER 5 DAYS 05/25/18 16:35 Blood-Venous Gram Stain - Final TEST NOT PERFORMED 05/25/18 16:25 Blood-Venous Blood Culture - Final NO GROWTH AFTER 5 DAYS 05/25/18 16:25 Blood-Venous Gram Stain - Final TEST NOT PERFORMED 05/27/18 16:08 Sputum Gram Stain - Final 05/27/18 16:08 Sputum Sputum Culture - Final Escherichia Coli 05/26/18 06:30 Urine,[place] Urine Culture - Final Escherichia Coli 05/21/18 09:10 Blood-Venous Blood Culture - Final NO GROWTH AFTER 5 DAYS 05/21/18 09:10 Blood-Venous Gram Stain - Final TEST NOT PERFORMED 05/20/18 13:00 Blood Blood Culture - Final NO GROWTH AFTER 5 DAYS 05/20/18 13:00 Blood Gram Stain - Final TEST NOT PERFORMED 05/20/18 17:43 Nose MRSA Culture (Admit) - Final MRSA NOT DETECTED 05/20/18 13:34 Urine,[place] Urine Culture - Final Enterococcus Faecalis Assessment and Plan (1) Altered mental status Status: Acute (2) Decubitus ulcer of sacral area Status: Acute (3) Deep tissue injury Status: Acute (4) Hx of fracture of femur Status: Chronic (5) Seizure disorder Status: Chronic - Assessment and Plan (Free Text) Assessment: A/P 83 year old female with multiple medical conditions icnluding CAD, Dementia, COPD, recent right femur ORIF admitted form [facility] for AMS and fever. pt. has been afebrile since admission. mild leukocytosis has resolved. UA- negative, urine cx- E.fecalis ( could eb contaminant ) since the UA from same day negative. repeat UA from [place] 05/26/2018- Negative urine cx 05/26/2018- ESBL e.coli sputum cx- reported as ESBL e.coli as well Blood cx- neg x 3 repeat cxr reported as improved. PLan- vanco trough good today , can resume vanco. keep trough <15. advise to monitor aspiration precautions as well. advise to continue with meropnem to treat the ESBL e.coli sputum cx. day #5 Critical care time spent 40 minutes.
--- NOTE | 2018-06-02 14:00 | CP.PCM.PN ---
Subjective - Date & Time of Evaluation Date of Evaluation: 06/02/18 Time of Evaluation: 13:40 - Subjective Subjective: Non verbal, no response to verbal ot tactil stimuli Objective - Vital Signs/Intake and Output Vital Signs (last 24 hours): Temp Pulse Resp BP Pulse Ox 98 F 72 21 123/46 L 98 06/02/18 12:00 06/02/18 13:00 06/02/18 13:00 06/02/18 13:00 06/02/18 13:00 Intake and Output: 06/02/18 06/02/18 06:59 18:59 Intake Total 630 430 Output Total 400 Balance 230 430 - Medications Medications: Current Medications Albuterol Sulfate (Albuterol 0.083% Inhal Chantale (2.5 Mg/3 Ml) Ud) 2.5 mg INH RQID [facility] Last Admin: 06/02/18 11:17 Dose: 2.5 mg Albuterol Sulfate (Albuterol 0.083% Inhal Chantale (2.5 Mg/3 Ml) Ud) 2.5 mg INH RQ4 PRN PRN Reason: Shortness of Breath Last Admin: 05/30/18 00:25 Dose: 2.5 mg Dimethicone (Proshield Plus Skin Protectant) 1 applic TOP Q8 [facility] Last Admin: 06/02/18 08:40 Dose: 1 applic Famotidine (Pepcid) 40 mg PO DAILY [facility] Furosemide (Lasix) 40 mg IVP DAILY [facility] Last Admin: 06/01/18 08:52 Dose: 40 mg Vancomycin HCl 500 mg/ Sodium (Chloride) 100 mls @ 100 mls/hr IVPB Q12 [facility]; Protocol Last Admin: 06/02/18 08:40 Dose: 100 mls/hr Meropenem 1 gm/ Sodium (Chloride) 100 mls @ 100 mls/hr IVPB Q12 [facility]; Protocol Last Admin: 06/02/18 08:39 Dose: 100 mls/hr Lactulose (Enulose) 20 gm PO DAILY PRN PRN Reason: Constipation Last Admin: 05/29/18 18:39 Dose: 20 gm Levetiracetam (Keppra) 500 mg PO BID [facility] Last Admin: 06/02/18 08:39 Dose: 500 mg Morphine Sulfate (Morphine) 2 mg IVP Q6 PRN PRN Reason: Pain, moderate (4-7) Last Admin: 06/02/18 08:25 Dose: 2 mg - Labs Labs: 06/01/18 06:00 06/01/18 06:00 PT 20.0 Seconds (9.8-13.1) H 05/20/18 13:00 INR 1.8 05/20/18 13:00 APTT 30.8 Seconds (25.6-37.1) 05/20/18 13:00 - Constitutional Appears: Chronically Ill - Head Exam Head Exam: NORMOCEPHALIC - Eye Exam Additional comments: pupils sluggish reactive to light - ENT Exam Additional comments: NG tube - Neck Exam Neck Exam: Normal Inspection - Respiratory Exam Respiratory Exam: Decreased Breath Sounds (bases) - Cardiovascular Exam Cardiovascular Exam: Tachycardia - GI/Abdominal Exam GI & Abdominal Exam: Soft, Normal Bowel Sounds - Extremities Exam Additional comments: R thigh incision healing well - Back Exam Additional comments: L-S decubitus stage IV, DTI upper back - Neurological Exam Additional comments: non verbal, no response to tactil or verbal stimuli - Skin Skin Exam: Warm Assessment and Plan (1) CHF (congestive heart failure) Status: Acute (2) Aspiration pneumonia Status: Acute (3) Sepsis Status: Acute (4) Toxic metabolic encephalopathy Status: Acute (5) Altered mental status Status: Acute (6) UTI (urinary tract infection) Status: Acute (7) Dehydration Status: Resolved (8) Hypernatremia Status: Resolved (9) Decubitus ulcer of sacral area Status: Acute (10) Deep tissue injury Status: Acute (11) Chronic back pain Status: Chronic (12) Hx of fracture of femur Status: Chronic (13) HTN (hypertension) Status: Acute (14) COPD (chronic obstructive pulmonary disease) Status: Chronic (15) Hx of congestive heart failure Status: Chronic (16) Seizure disorder Status: Chronic - Assessment and Plan (Free Text) Plan: continue DuoNeb, Keppra, Lasix, Vanco, Merren, Morphine, DuoNeb, NG tube feeding , V Mask 50%, Patient's son signed DNR, DNI, transfer to Med-Surg Critical care time: 31 min.
--- NOTE | 2018-06-02 14:00 | CP.CCUPN ---
CCU Subjective - Physician Review Subjective (Free Text): Eldest son Steve arrived to the bedside this AM from [place], after viewing her, discussed present clinical condition with him and overall prognosis, she has been bedbound over the past 1-2 years when she was wheelchair-bound previously. He has now requested DNI and DNR. If there is no overall improevemnt over the time he will spend with her in the next 2 days, decisions will be made on comfort care measures only. Other vitals and I/O's reviewed. Afebrile, no fever spikes, BP 124/63, HR 80s sinus, RR 20. Near - Even fluid balance last 24H. On 50% VM, SPO2 100%. ROS: No other pertinent negs or positives on 10+ system review obtainable, nonverbal. PMSFH: All other Nursing and physician documentation reviewed to date; no new pertinent info noted relevant to current medical problems. EXAM- HEENT: no icterus, R gaze preference, pupils 3 mm bilat and reactive. NECK: No JVD visible, supple, carotids equal upstroke bilat/no bruit CHEST: decreased BS at the bases, no wheezes audible HEART: regular, distant, tachy S1S2, no rubs or murmurs noted ABD: softly and nontender, no guarding, no organomegaly, BS hypoactive. EXT: + LE edema, no calf tenderness or palpable cords, distal pulses intact and symmetrical. Mod size sacral decub stage 4, thoracic DTI. NEURO: withdraws arms to pain, + tone in all extremities, moans when lightly touched. SKIN: no rashes, warm and dry LABS: see results below from Jun 01 note, no new labs ordered for today. WBC= 9.6 HGB= 8.7 PLTs= 170K Na= 138 K= 3.6 CL= 87 HCO3= 46 BUN/Cr= 17/0.3 BS= 169 IMPRESSION / MAJOR PROBLEMS NOW: 1. AMS, r/o NCSE, vs other occult seizure activity, metabolic Encephalopathy, possible Sepsis Encephalopathy; h/o Dementia 2. Acute resp insuff 2 bilateral Pneumonia, r/o Aspiration 3. h/o ORIF R Hip; L Femoral fracture repair 4. Chronic Disease Anemia 5. New Thrombocytopenia this Admission, h/o of Low Platelets; r/o Drug effect, DIC PLAN: 1. Ongoing [place] / Vanco coverage. 2. So far has averted need for MV support, but made DNI status today by Son. 3. Lasix held, could start Diamox in the interim. CCU Objective - Vital Signs / Intake & Output Intake and Output (Last 8hrs): Intake & Output 06/01/18 06/02/18 06/02/18 22:59 06:59 14:59 Intake Total 608 240 430 Output Total 900 400 Balance -292 -160 430 Intake: IV 8 Intake, Piggyback 200 200 Oral 80 Tube Feeding 240 240 80 Free Water Flush 80 150 Output: Urine 900 400 Urine, Voided 900 400
--- NOTE | 2018-06-02 14:22 | CP.PCM.PN ---
Subjective - Date & Time of Evaluation Date of Evaluation: 06/02/18 Time of Evaluation: 11:15 - Subjective Subjective: Neurology Follow-Up Note: Mrs. Laureano was evaluated this morning in the ICU. She has been downgraded to med-surg. Pt remains lethargic, nonverbal and unable to answer questions or follow commands. Pt's son, Steve, at bedside. Chart reviewed; discussed with primary RN. ROS unobtainable from pt 2/2 her current condition. Objective - Vital Signs/Intake and Output Vital Signs (last 24 hours): Temp Pulse Resp BP Pulse Ox 98 F 72 21 123/46 L 98 06/02/18 12:00 06/02/18 13:00 06/02/18 13:00 06/02/18 13:00 06/02/18 13:00 Intake and Output: 06/02/18 06/02/18 06:59 18:59 Intake Total 630 430 Output Total 400 Balance 230 430 - Medications Medications: Current Medications Albuterol Sulfate (Albuterol 0.083% Inhal Chantale (2.5 Mg/3 Ml) Ud) 2.5 mg INH RQID [facility] Last Admin: 06/02/18 11:17 Dose: 2.5 mg Albuterol Sulfate (Albuterol 0.083% Inhal Chantale (2.5 Mg/3 Ml) Ud) 2.5 mg INH RQ4 PRN PRN Reason: Shortness of Breath Last Admin: 05/30/18 00:25 Dose: 2.5 mg Dimethicone (Proshield Plus Skin Protectant) 1 applic TOP Q8 [facility] Last Admin: 06/02/18 08:40 Dose: 1 applic Famotidine (Pepcid) 40 mg PO DAILY [facility] Furosemide (Lasix) 40 mg IVP DAILY [facility] Last Admin: 06/01/18 08:52 Dose: 40 mg Vancomycin HCl 500 mg/ Sodium (Chloride) 100 mls @ 100 mls/hr IVPB Q12 [facility]; Protocol Last Admin: 06/02/18 08:40 Dose: 100 mls/hr Meropenem 1 gm/ Sodium (Chloride) 100 mls @ 100 mls/hr IVPB Q12 [facility]; Protocol Last Admin: 06/02/18 08:39 Dose: 100 mls/hr Lactulose (Enulose) 20 gm PO DAILY PRN PRN Reason: Constipation Last Admin: 05/29/18 18:39 Dose: 20 gm Levetiracetam (Keppra) 500 mg PO BID [facility] Last Admin: 06/02/18 08:39 Dose: 500 mg Morphine Sulfate (Morphine) 2 mg IVP Q6 PRN PRN Reason: Pain, moderate (4-7) Last Admin: 06/02/18 08:25 Dose: 2 mg - Labs Labs: 06/01/18 06:00 06/01/18 06:00 PT 20.0 Seconds (9.8-13.1) H 05/20/18 13:00 INR 1.8 05/20/18 13:00 APTT 30.8 Seconds (25.6-37.1) 05/20/18 13:00 - Constitutional Appears: Other (lethargic, nonverbal, moans, opens eyes with sternal rub.) - Head Exam Head Exam: ATRAUMATIC, NORMAL INSPECTION, NORMOCEPHALIC - Eye Exam Eye Exam: Normal appearance Pupil Exam: NORMAL ACCOMODATION - ENT Exam ENT Exam: Mucous Membranes Dry - Neck Exam Neck Exam: Normal Inspection - Respiratory Exam Respiratory Exam: absent: NORMAL BREATHING PATTERN Additional comments: tachypneic; venti mask - GI/Abdominal Exam GI & Abdominal Exam: Soft Additional comments: ngt in place with feedings. - Extremities Exam Extremities Exam: absent: Full ROM Additional comments: edema still noted to hands though improving tone noted to BUE - Neurological Exam Neurological Exam: Altered Additional comments: Pt remains lethargic, nonverbal and moans on occasion during exam. She moans and does open eyes to sternal rub. Still unable to follow commands. BUE +resistance and tone noted; BUE fall immediately to bed when raised, no resistance noted. No tremors noted. Toes down-going b/l. Unable to assess sensation 2/2 pt nonverbal and not following commands. - Psychiatric Exam Psychiatric exam: absent: Normal Affect, Normal Mood (nonverbal, moans, letharg ic) - Skin Skin Exam: Dry, Warm Assessment and Plan (1) Toxic metabolic encephalopathy Assessment & Plan: Imaging reviewed: -MRI brain without contrast (05/29/18): Stable age-related neuro degenerative changes are identified without acute interval findings as per above. -EEG (05/22/18): This is an abnormal EEG record that demonstrate the presence of a mild to moderate non specific diffuse disturbance of cortical activity, this is in keeping with a diffuse way matter dysfunction. These findings do not support a specific etiology. 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 No seizures were captured. -CT head (05/20/18): No acute intracranial pathology. Age-related changes. Mild sphenoid sinus disease. No significant interval change. Overall, there have been no changes nor improvements in pt's condition. Mrs. Laureano's mentation is still not improved. Recent imaging shows no acute intracranial involvement. She continues to have multiple infectious processes which may be contributing to her mental status. Today I met and spoke with pt's eldest son and POA, Steve Laureano, regarding the neuro teams involvement in his mother's care and how she has not been progressing. He states that he last saw pt 1 year ago but she was wheel chair dependent then and still verbal and active; he was upset to see his mother in the condition that she's in now. He verbalized that he spoke with Dr. Whyte regarding the same and wishes to proceed with DNR/DNI. He is open to comfort measures depending on how his mother progressing over the next 1-2 days. He will be leaving to [place] again on Tuesday morning. -Continue current treatment and management of infectious process and electrolyte imbalance. -Continue Keppra as ordered as the pt seems to be tolerating. -Notify neuro team of any acute changes in pt's condition. Please feel free to contact us if son has any further questions or concerns. Case discussed with Dr. Flanagan Status: Acute
--- NOTE | 2018-06-02 14:31 | PQF ---
PROVIDER RESPONSE TEXT: UTI baeza catheter related POA REVIEWER QUERY TEXT: Conflicting Documentation Clarification Two (2) Physician Clarifications: 1) Please clarify if UTI is ruled in or ruled out. 2) If it is ruled in please clarify if it is baeza catheter related or not. A single mention or documentation of multiple diagnoses for the same clinical presentation appears in the record. Please clarify the diagnosis/diagnoses. Please also document if the condition is: -- Confirmed and current -- Confirmed, treated and resolved -- Ruled out -- Other, please specify The patient's Clinical Indicators include: Admitted with increased AMS and fever of 101.4. WBC 13.9 with a L shift. Diagnoses include: UTI Presented with a baeza catheter . 05/20/18 UA: Cloudy, occasional bacteria, URINE CS: >100,000 Enterococcus Faecalis 05/25/18 ID called in: UA negative, Urine Cx: E Faecalis ( could be contaminant) since the UA from e same day is negative. Replace baeza and repeat UA and urine Cx from new baeza 05/29/18 ID: Repeat UA from new baeza negative, Urine Cx from 05/26 ESBL E Coli. The urine is most like ly colonization as the corroborating UA is negative from the same specimen. Query created by: Meagan Gurrola on 05/31/2018 1:37 PM Electronically signed by: Sj Lara MD 06/02/2018 2:28 PM
--- NOTE | 2018-06-02 14:31 | PQF ---
PROVIDER RESPONSE TEXT: Etiology of Sepsis is Multifactorial: Aspiration Pneumonia, LS decubitus, Baeza catheter related UTI REVIEWER QUERY TEXT: Documentation Clarification Your help is requested in clarifying the following clinical documentation, if you can please further specify in the medical record and discharge summary. Please clarify the etiology (s) of Sepsis after workup. The patient's Clinical Indicators include: Admitted with increasing AMS and fever. TEMP: 101.4, 99.9, 99.9, 97.8, 97.7, 97.8 HR: 136, 140, 132, 125, 119, 115, 112, 107 BP: 118/76, 119/77, 127/74, 123/64, 123/62 R: 18, 30, 29, 32, 28, 30, 29, 28, 28,2 9 WBC 13.9 with a L shift , IPLT 228-> 99, NR 1.8, Lactate 3.9, T Bili 1.7, Blood CS No growth UA on admission negative but Urine CS from baeza E. Faecalis + Pressure ulcers: Stage IV sacrum, thoracic DTI CXR: No active disease, Repeat CXR: New R sided infiltrates Rx: IVAB ID: the etiology of the fever on admission could be multifactorial aspiration pneumonia vs decubitus ulcers vs viral etiology Query created by: Meagan Gurrola on 05/31/2018 1:53 PM Electronically signed by: Sj Lara MD 06/02/2018 2:28 PM
[2018-06-02] MEDS ORDERED: Morphine 4 MG/ML VIAL IVP PRN (18:00)
--- NOTE | 2018-06-02 19:49 | CP.PCM.PN ---
<Marc Schrader - Last Filed: 06/02/18 19:36> Subjective - Date & Time of Evaluation Date of Evaluation: 06/02/18 Time of Evaluation: 19:36 - Subjective Subjective: Marc Schrader DO PGY1 - Internal Medicine Parts Department Supervisor - Cardiology Note for Dr. Varghese Seen and examined at bedside this morning; No change in presentation in interim; Patient status changed to DNR/DNI today. Objective - Vital Signs/Intake and Output Vital Signs (last 24 hours): Temp Pulse Resp BP Pulse Ox 98 F 89 21 127/45 L 97 06/02/18 17:00 06/02/18 17:00 06/02/18 17:00 06/02/18 17:00 06/02/18 17:00 Intake and Output: 06/02/18 06/03/18 18:59 06:59 Intake Total 670 Output Total 250 Balance 420 - Medications Medications: Current Medications Albuterol Sulfate (Albuterol 0.083% Inhal Chantale (2.5 Mg/3 Ml) Ud) 2.5 mg INH RQID [facility] Last Admin: 06/02/18 19:35 Dose: 2.5 mg Albuterol Sulfate (Albuterol 0.083% Inhal Chantale (2.5 Mg/3 Ml) Ud) 2.5 mg INH RQ4 PRN PRN Reason: Shortness of Breath Last Admin: 05/30/18 00:25 Dose: 2.5 mg Dimethicone (Proshield Plus Skin Protectant) 1 applic TOP Q8 [facility] Last Admin: 06/02/18 16:16 Dose: 1 applic Famotidine (Pepcid) 40 mg PO DAILY [facility] Furosemide (Lasix) 40 mg IVP DAILY [facility] Last Admin: 06/01/18 08:52 Dose: 40 mg Vancomycin HCl 500 mg/ Sodium (Chloride) 100 mls @ 100 mls/hr IVPB Q12 [facility]; Protocol Last Admin: 06/02/18 08:40 Dose: 100 mls/hr Meropenem 1 gm/ Sodium (Chloride) 100 mls @ 100 mls/hr IVPB Q12 [facility]; Protocol Last Admin: 06/02/18 08:39 Dose: 100 mls/hr Lactulose (Enulose) 20 gm PO DAILY PRN PRN Reason: Constipation Last Admin: 05/29/18 18:39 Dose: 20 gm Levetiracetam (Keppra) 500 mg PO BID [facility] Last Admin: 06/02/18 16:16 Dose: 500 mg Morphine Sulfate (Morphine) 2 mg IVP Q6 PRN PRN Reason: Pain, moderate (4-7) - Labs Labs: 06/01/18 06:00 06/01/18 06:00 PT 20.0 Seconds (9.8-13.1) H 05/20/18 13:00 INR 1.8 05/20/18 13:00 APTT 30.8 Seconds (25.6-37.1) 05/20/18 13:00 - Constitutional Appears: Cachectic, Chronically Ill - Head Exam Head Exam: ATRAUMATIC, NORMOCEPHALIC - Eye Exam Eye Exam: Normal appearance - Respiratory Exam Respiratory Exam: Rales, Rhonchi - Cardiovascular Exam Cardiovascular Exam: Tachycardia, RRR, +S1, +S2 - GI/Abdominal Exam GI & Abdominal Exam: Soft, Normal Bowel Sounds. absent: Tenderness - Extremities Exam Additional comments: Significant BL UE edema w/ pitting - improving at this time No LE edema - Neurological Exam Neurological Exam: Alert, Awake Assessment and Plan (1) Sepsis Status: Acute (2) Hx of congestive heart failure Status: Chronic (3) HTN (hypertension) Status: Acute (4) Abdominal pain Status: Acute (5) Sepsis Status: Acute - Assessment and Plan (Free Text) Plan: 83F w/ PMH Alzheimers, HTN, HLD, Asthma, Anxiety, diastolic CHF, previously normal stress test (may 2017) admitted for sepsis growing ESBL in urine + sputum - cardiology consulted for management of chronic cardiac conditions Most recent echo (05/2018) - EF of 60-65%; Grade 1- abnormal relaxation pattern w/ mild AR and mild TR Troponin + BNP wnl HD stable C/w Toprol XL 25 QD C/w Daily Lasix DNR/DNI at this time Further reccs per Dr. Varghese <Juarez Varghese - Last Filed: 06/05/18 07:00> Objective - Vital Signs/Intake and Output Vital Signs (last 24 hours): Temp Pulse Resp BP Pulse Ox 97.8 F 105 H 20 135/80 96 06/05/18 00:30 06/05/18 00:30 06/05/18 00:30 06/05/18 00:30 06/05/18 00:30 Intake and Output: 06/05/18 06/05/18 06:59 18:59 Intake Total 200 Balance 200 - Medications Medications: Current Medications Albuterol Sulfate (Albuterol 0.083% Inhal Chantale (2.5 Mg/3 Ml) Ud) 2.5 mg INH RQID [facility] Last Admin: 06/04/18 20:16 Dose: 2.5 mg Albuterol Sulfate (Albuterol 0.083% Inhal Chantale (2.5 Mg/3 Ml) Ud) 2.5 mg INH RQ4 PRN PRN Reason: Shortness of Breath Last Admin: 05/30/18 00:25 Dose: 2.5 mg Dimethicone (Proshield Plus Skin Protectant) 1 applic TOP Q8 [facility] Last Admin: 06/05/18 01:00 Dose: 1 applic Famotidine (Pepcid) 40 mg PO DAILY [facility] Last Admin: 06/04/18 08:33 Dose: 40 mg Furosemide (Lasix) 40 mg IVP DAILY [facility] Last Admin: 06/01/18 08:52 Dose: 40 mg Meropenem 1 gm/ Sodium (Chloride) 100 mls @ 100 mls/hr IVPB Q12 [facility]; Protocol Last Admin: 06/04/18 21:51 Dose: 100 mls/hr Vancomycin HCl 500 mg/ Sodium (Chloride) 100 mls @ 100 mls/hr IVPB Q12@1000,2200 [facility]; Protocol Last Admin: 06/04/18 21:53 Dose: 100 mls/hr Lactulose (Enulose) 20 gm PO DAILY PRN PRN Reason: Constipation Last Admin: 05/29/18 18:39 Dose: 20 gm Levetiracetam (Keppra) 500 mg PO BID [facility] Last Admin: 06/04/18 17:16 Dose: 500 mg Morphine Sulfate (Morphine) 2 mg IVP Q6 PRN PRN Reason: Pain, moderate (4-7) - Labs Labs: 06/04/18 04:21 06/04/18 04:21 PT 20.0 Seconds (9.8-13.1) H 05/20/18 13:00 INR 1.8 05/20/18 13:00 APTT 30.8 Seconds (25.6-37.1) 05/20/18 13:00 Assessment and Plan (1) CHF (congestive heart failure) Status: Acute (2) Sepsis Status: Acute (3) Encephalopathy acute Status: Acute (4) HTN (hypertension) Status: Acute Attending/Attestation - Attestation I have personally seen and examined this patient.: Yes I have fully participated in the care of the patient.: Yes I have reviewed all pertinent clinical information, including history, physical exam and plan: Yes
[2018-06-03] MEDS: Proshield Plus GEL TOP SCH ×3 (01:10→16:19)
[2018-06-03] MEDS: Albuterol 0.083% Inhal Sol (2.5 mg/3 mL) UD INH SCH ×4 (07:47→19:29)
[2018-06-03] MEDS: Meropenem 1 GM in Sodium Chloride 0.9% 100 ML IVPB SCH ×2 (08:25→20:08)
--- NOTE | 2018-06-03 08:28 | CP.CCUPN ---
CCU Subjective - Physician Review Subjective (Free Text): Eldest son Steve visited patient yesterday after not seeing her for over a year, stated patient does not recognize nor is interactive with him, then requested DNR DNI status. Overall neuromental status unchanged, no specific deterioration events over the past 24H noted. Other vitals and I/O's reviewed. Afebrile, no fever spikes, SBP 99-120's, HR 80s sinus, RR 20. On 50% VM, SPO2 100%. ROS: No other pertinent negs or positives on 10+ system review obtainable, nonverbal. PMSFH: All other Nursing and physician documentation reviewed to date; no new pertinent info noted relevant to current medical problems. EXAM- HEENT: no icterus, R gaze preference, pupils 3 mm bilat and reactive. NECK: No JVD visible, supple, carotids equal upstroke bilat/no bruit CHEST: decreased BS at the bases, no wheezes audible HEART: regular, distant, tachy S1S2, no rubs or murmurs noted ABD: softly and nontender, no guarding, no organomegaly, BS hypoactive. EXT: + LE edema, no calf tenderness or palpable cords, distal pulses intact and symmetrical. Mod size sacral decub stage 4, thoracic DTI. NEURO: withdraws arms to pain, + tone in all extremities, moans when lightly touched. SKIN: no rashes, warm and dry LABS: see results below from Jun 01, new labs ordered for today remain pending- WBC= 9.6 HGB= 8.7 PLTs= 170K Na= 138 K= 3.6 CL= 87 HCO3= 46 BUN/Cr= 17/0.3 BS= 169 IMPRESSION / MAJOR PROBLEMS NOW: 1. AMS, r/o NCSE, vs other occult seizure activity, metabolic Encephalopathy, possible Sepsis Encephalopathy; h/o Dementia 2. Acute resp insuff 2 bilateral Pneumonia, r/o Aspiration 3. h/o ORIF R Hip; L Femoral fracture repair 4. Chronic Disease Anemia 5. New Thrombocytopenia this Admission, h/o of Low Platelets; r/o Drug effect, DIC PLAN: 1. Ongoing [place] / Vanco coverage. 2. So far has averted need for MV support, but made DNI status by Son. Will keep on face mask oxygentaion, otherwise too lethargic even for BiPAP support. 3. Lasix held, could start Diamox in the interim. 4. Further orders pending results of today's labs.
[2018-06-03] MEDS: Famotidine 40 MG/5 ML PO SCH (09:54)
[2018-06-03] MEDS: levETIRAcetam 100 mg/ml (5ml) Oral Syringe PO SCH ×2 (09:55→16:19)
[2018-06-03 10:37] LABS: BASO % 0.6 % (0.0-2.0); EOS # 0.1 K/uL (0.0-0.7); EOS % 1.1 % (0.0-4.0); HEMOGLOBIN 8.7 g/dL (12.0-16.0); LYMPH # 0.6 K/uL (1.0-4.3); LYMPH % 8.1 % (20.0-40.0); MEAN CELL VOLUME 88.3 fl (81.0-99.0); MEAN CORPUSCULAR HEMOGLOBIN 28.9 pg (27.0-31.0); MEAN CORPUSCULAR HGB CONC 32.7 g/dL (33.0-37.0); MEAN PLATELET VOLUME 11.6 fl (7.2-11.7); MONO # 0.6 K/uL (0.0-0.8); MONO % 8.1 % (0.0-10.0); NEUT # 5.6 K/uL (1.8-7.0); NEUT % 82.1 % (50.0-75.0); NRBC % 0.2 % (0.0-0.0); PLATELET COUNT 199 K/uL (130-400); RBC 3.01 Mil/uL (3.80-5.20); RED CELL DISTRIBUTION WIDTH 17.3 % (11.5-14.5); WHITE BLOOD COUNT 6.9 K/uL (4.8-10.8)
--- NOTE | 2018-06-03 12:33 | CP.PCM.PN ---
Subjective - Date & Time of Evaluation Date of Evaluation: 06/03/18 Time of Evaluation: 12:31 - Subjective Subjective: Patient seen in the bed, breathing is more labored. Continue with betadine soaked gauze She has since been made DNR. Poor overall prognosis no odor from wound Objective - Vital Signs/Intake and Output Vital Signs (last 24 hours): Temp Pulse Resp BP Pulse Ox 97.4 F L 104 H 26 H 127/61 99 06/03/18 08:00 06/03/18 09:00 06/03/18 09:00 06/03/18 09:00 06/03/18 09:00 Intake and Output: 06/03/18 06/03/18 06:59 18:59 Intake Total 0 190 Balance 0 190 - Medications Medications: Current Medications Albuterol Sulfate (Albuterol 0.083% Inhal Chantale (2.5 Mg/3 Ml) Ud) 2.5 mg INH RQID [facility] Last Admin: 06/03/18 07:47 Dose: 2.5 mg Albuterol Sulfate (Albuterol 0.083% Inhal Chantale (2.5 Mg/3 Ml) Ud) 2.5 mg INH RQ4 PRN PRN Reason: Shortness of Breath Last Admin: 05/30/18 00:25 Dose: 2.5 mg Dimethicone (Proshield Plus Skin Protectant) 1 applic TOP Q8 [facility] Last Admin: 06/03/18 08:24 Dose: 1 applic Famotidine (Pepcid) 40 mg PO DAILY [facility] Last Admin: 06/03/18 09:54 Dose: 40 mg Furosemide (Lasix) 40 mg IVP DAILY [facility] Last Admin: 06/01/18 08:52 Dose: 40 mg Vancomycin HCl 500 mg/ Sodium (Chloride) 100 mls @ 100 mls/hr IVPB Q12 [facility]; Protocol Last Admin: 06/03/18 09:53 Dose: 100 mls/hr Meropenem 1 gm/ Sodium (Chloride) 100 mls @ 100 mls/hr IVPB Q12 [facility]; Protocol Last Admin: 06/03/18 08:25 Dose: 100 mls/hr Lactulose (Enulose) 20 gm PO DAILY PRN PRN Reason: Constipation Last Admin: 05/29/18 18:39 Dose: 20 gm Levetiracetam (Keppra) 500 mg PO BID [facility] Last Admin: 06/03/18 09:55 Dose: 500 mg Morphine Sulfate (Morphine) 2 mg IVP Q6 PRN PRN Reason: Pain, moderate (4-7) - Labs Labs: 06/03/18 09:50 06/01/18 06:00 PT 20.0 Seconds (9.8-13.1) H 05/20/18 13:00 INR 1.8 05/20/18 13:00 APTT 30.8 Seconds (25.6-37.1) 05/20/18 13:00
[2018-06-03 12:35] LABS: ALB/GLOB RATIO 0.7 (1.0-2.1); ALBUMIN 2.4 g/dL (3.5-5.0); ALT/SGPT 25 U/L (9-52); AST/SGOT 25 U/L (14-36); BLOOD UREA NITROGEN 15 mg/dl (7-17); CALCIUM 8.2 mg/dL (8.4-10.2); GFR NON-AFRICAN AMERICAN > 60
[2018-06-03 12:53] LABS: BANDS 2 % (0-2); EOSINOPHIL 1 % (0-7); LYMPHOCYTE 8 % (20-50); METAMYELOCYTE 1 % (0-0); MONOCYTE 6 % (0-10); NEUTROPHIL 82 % (42-75); TOTAL CELLS COUNTED 100
[2018-06-03 12:54] LABS: ANISOCYTOSIS SLIGHT; HYPOCHROMIC SLIGHT; LARGE PLATELETS PRESENT; OVALOCYTES SLIGHT; PLATELET ESTIMATE NORMAL (NORMAL)
--- NOTE | 2018-06-03 17:28 | CP.PCM.PN ---
Subjective - Date & Time of Evaluation Date of Evaluation: 06/03/18 Time of Evaluation: 14:40 - Subjective Subjective: F/U AMS Non response to verbal or tactile stimuli Objective - Vital Signs/Intake and Output Vital Signs (last 24 hours): Temp Pulse Resp BP Pulse Ox 98.9 F 99 H 19 126/54 L 97 06/03/18 16:00 06/03/18 17:00 06/03/18 17:00 06/03/18 17:00 06/03/18 17:00 Intake and Output: 06/03/18 06/03/18 06:59 18:59 Intake Total 0 190 Balance 0 190 - Medications Medications: Current Medications Albuterol Sulfate (Albuterol 0.083% Inhal Chantale (2.5 Mg/3 Ml) Ud) 2.5 mg INH RQID [facility] Last Admin: 06/03/18 15:35 Dose: 2.5 mg Albuterol Sulfate (Albuterol 0.083% Inhal Chantale (2.5 Mg/3 Ml) Ud) 2.5 mg INH RQ4 PRN PRN Reason: Shortness of Breath Last Admin: 05/30/18 00:25 Dose: 2.5 mg Dimethicone (Proshield Plus Skin Protectant) 1 applic TOP Q8 [facility] Last Admin: 06/03/18 16:19 Dose: 1 applic Famotidine (Pepcid) 40 mg PO DAILY [facility] Last Admin: 06/03/18 09:54 Dose: 40 mg Furosemide (Lasix) 40 mg IVP DAILY [facility] Last Admin: 06/01/18 08:52 Dose: 40 mg Vancomycin HCl 500 mg/ Sodium (Chloride) 100 mls @ 100 mls/hr IVPB Q12 [facility]; Protocol Last Admin: 06/03/18 09:53 Dose: 100 mls/hr Meropenem 1 gm/ Sodium (Chloride) 100 mls @ 100 mls/hr IVPB Q12 [facility]; Protocol Last Admin: 06/03/18 08:25 Dose: 100 mls/hr Lactulose (Enulose) 20 gm PO DAILY PRN PRN Reason: Constipation Last Admin: 05/29/18 18:39 Dose: 20 gm Levetiracetam (Keppra) 500 mg PO BID [facility] Last Admin: 06/03/18 16:19 Dose: 500 mg Morphine Sulfate (Morphine) 2 mg IVP Q6 PRN PRN Reason: Pain, moderate (4-7) - Labs Labs: 06/03/18 09:50 06/03/18 11:00 PT 20.0 Seconds (9.8-13.1) H 05/20/18 13:00 INR 1.8 05/20/18 13:00 APTT 30.8 Seconds (25.6-37.1) 05/20/18 13:00 - Constitutional Appears: Chronically Ill - Head Exam Head Exam: NORMAL INSPECTION - Eye Exam Additional comments: Pupils sluggish reactive to light - ENT Exam Additional comments: NGT - Neck Exam Neck Exam: Normal Inspection - Respiratory Exam Respiratory Exam: Decreased Breath Sounds (at bases) - Cardiovascular Exam Cardiovascular Exam: Tachycardia - GI/Abdominal Exam GI & Abdominal Exam: Soft, Normal Bowel Sounds - Exam Additional comments: [place] cath - Extremities Exam Additional comments: thigh incision healing well - Back Exam Additional comments: L-S decubitus stage IV, DTI upper back - Neurological Exam Additional comments: Non verbal, no response to tactile/verbal stimuli - Skin Skin Exam: Warm Assessment and Plan (1) CHF (congestive heart failure) Status: Acute (2) Aspiration pneumonia Status: Acute (3) Sepsis Status: Acute (4) Toxic metabolic encephalopathy Status: Acute (5) Altered mental status Status: Acute (6) UTI (urinary tract infection) Status: Acute (7) Dehydration Status: Resolved (8) Hypernatremia Status: Resolved (9) Decubitus ulcer of sacral area Status: Acute (10) Deep tissue injury Status: Acute (11) Chronic back pain Status: Chronic (12) Hx of fracture of femur Status: Chronic (13) HTN (hypertension) Status: Acute (14) COPD (chronic obstructive pulmonary disease) Status: Chronic (15) Hx of congestive heart failure Status: Chronic (16) Seizure disorder Status: Chronic - Assessment and Plan (Free Text) Plan: Pt DNR/DNI, continue NGT feeding, Ventimask 40% and current medications, Poor prognosis.
[2018-06-04] MEDS: Proshield Plus GEL TOP SCH ×3 (01:00→17:16)
[2018-06-04 05:07] LABS: BASO # 0.1 K/uL (0.0-0.2); BASO % 0.8 % (0.0-2.0); EOS # 0.1 K/uL (0.0-0.7); EOS % 1.3 % (0.0-4.0); HEMOGLOBIN 8.3 g/dL (12.0-16.0); LYMPH # 0.7 K/uL (1.0-4.3); LYMPH % 9.8 % (20.0-40.0); MEAN CELL VOLUME 88.3 fl (81.0-99.0); MEAN CORPUSCULAR HEMOGLOBIN 28.8 pg (27.0-31.0); MEAN CORPUSCULAR HGB CONC 32.6 g/dL (33.0-37.0); MEAN PLATELET VOLUME 11.5 fl (7.2-11.7); MONO # 0.6 K/uL (0.0-0.8); MONO % 8.7 % (0.0-10.0); NEUT # 5.5 K/uL (1.8-7.0); NEUT % 79.4 % (50.0-75.0); RBC 2.9 Mil/uL (3.80-5.20); RED CELL DISTRIBUTION WIDTH 17.4 % (11.5-14.5); WHITE BLOOD COUNT 6.9 K/uL (4.8-10.8)
[2018-06-04 05:22] LABS: ALB/GLOB RATIO 0.7 (1.0-2.1); ALBUMIN 2.4 g/dL (3.5-5.0); ALT/SGPT 25 U/L (9-52); AST/SGOT 25 U/L (14-36); BLOOD UREA NITROGEN 16 mg/dl (7-17); GFR NON-AFRICAN AMERICAN > 60
[2018-06-04] MEDS: Albuterol 0.083% Inhal Sol (2.5 mg/3 mL) UD INH SCH ×4 (07:21→20:16)
[2018-06-04] MEDS: levETIRAcetam 100 mg/ml (5ml) Oral Syringe PO SCH ×2 (08:33→17:16)
[2018-06-04] MEDS: Famotidine 40 MG/5 ML PO SCH (08:33)
[2018-06-04] MEDS: Meropenem 1 GM in Sodium Chloride 0.9% 100 ML IVPB SCH ×2 (09:35→21:51)
--- NOTE | 2018-06-04 15:24 | CP.PCM.PN ---
Subjective - Date & Time of Evaluation Date of Evaluation: 06/04/18 Time of Evaluation: 14:20 - Subjective Subjective: F/U AMS, PNA No response to verbal or tactile stimuli. Objective - Vital Signs/Intake and Output Vital Signs (last 24 hours): Temp Pulse Resp BP Pulse Ox 98.4 F 97 H 30 H 122/56 L 96 06/04/18 12:27 06/04/18 12:27 06/04/18 12:27 06/04/18 12:27 06/04/18 12:27 Intake and Output: 06/04/18 06/04/18 06:59 18:59 Intake Total 880 240 Output Total 300 Balance 580 240 - Medications Medications: Current Medications Albuterol Sulfate (Albuterol 0.083% Inhal Chantale (2.5 Mg/3 Ml) Ud) 2.5 mg INH RQID [facility] Last Admin: 06/04/18 15:16 Dose: 2.5 mg Albuterol Sulfate (Albuterol 0.083% Inhal Chantale (2.5 Mg/3 Ml) Ud) 2.5 mg INH RQ4 PRN PRN Reason: Shortness of Breath Last Admin: 05/30/18 00:25 Dose: 2.5 mg Dimethicone (Proshield Plus Skin Protectant) 1 applic TOP Q8 [facility] Last Admin: 06/04/18 08:34 Dose: 1 applic Famotidine (Pepcid) 40 mg PO DAILY [facility] Last Admin: 06/04/18 08:33 Dose: 40 mg Furosemide (Lasix) 40 mg IVP DAILY [facility] Last Admin: 06/01/18 08:52 Dose: 40 mg Vancomycin HCl 500 mg/ Sodium (Chloride) 100 mls @ 100 mls/hr IVPB Q12 [facility]; Protocol Last Admin: 06/04/18 08:33 Dose: 100 mls/hr Meropenem 1 gm/ Sodium (Chloride) 100 mls @ 100 mls/hr IVPB Q12 [facility]; Protocol Last Admin: 06/04/18 09:35 Dose: 100 mls/hr Lactulose (Enulose) 20 gm PO DAILY PRN PRN Reason: Constipation Last Admin: 05/29/18 18:39 Dose: 20 gm Levetiracetam (Keppra) 500 mg PO BID [facility] Last Admin: 06/04/18 08:33 Dose: 500 mg Morphine Sulfate (Morphine) 2 mg IVP Q6 PRN PRN Reason: Pain, moderate (4-7) - Labs Labs: 06/04/18 04:21 06/04/18 04:21 PT 20.0 Seconds (9.8-13.1) H 05/20/18 13:00 INR 1.8 05/20/18 13:00 APTT 30.8 Seconds (25.6-37.1) 05/20/18 13:00 - Constitutional Appears: Chronically Ill - Head Exam Head Exam: NORMAL INSPECTION - Eye Exam Additional comments: Pupils sluggish reactive to light - ENT Exam Additional comments: NGT - Neck Exam Neck Exam: Normal Inspection - Respiratory Exam Respiratory Exam: Decreased Breath Sounds (at bases), Rhonchi (scattered) - Cardiovascular Exam Cardiovascular Exam: REGULAR RHYTHM - GI/Abdominal Exam GI & Abdominal Exam: Soft, Normal Bowel Sounds - Exam Additional comments: De La Cruz Cath - Extremities Exam Additional comments: R thigh incision healing well, 2+ pitting edema BUE - Back Exam Additional comments: L-S decubitus stage IV, DTI upper back - Neurological Exam Additional comments: Non verbal, generalized weakness. - Skin Skin Exam: Warm Assessment and Plan (1) CHF (congestive heart failure) Status: Acute (2) Aspiration pneumonia Status: Acute (3) Sepsis Status: Acute (4) Toxic metabolic encephalopathy Status: Acute (5) Altered mental status Status: Acute (6) UTI (urinary tract infection) Status: Acute (7) Dehydration Status: Resolved (8) Hypernatremia Status: Resolved (9) Decubitus ulcer of sacral area Status: Acute (10) Deep tissue injury Status: Acute (11) Chronic back pain Status: Chronic (12) Hx of fracture of femur Status: Chronic (13) HTN (hypertension) Status: Acute (14) COPD (chronic obstructive pulmonary disease) Status: Chronic (15) Hx of congestive heart failure Status: Chronic (16) Seizure disorder Status: Chronic - Assessment and Plan (Free Text) Plan: Continue current Tx, tranfer to Met-Surg. Poor prognosis.
[2018-06-04] MEDS ORDERED: Povidone Iodine Topical 10% Sol ONE (17:30)
[2018-06-05] MEDS: Proshield Plus GEL TOP SCH ×3 (01:00→17:43)
[2018-06-05] MEDS: Albuterol 0.083% Inhal Sol (2.5 mg/3 mL) UD INH SCH ×4 (07:31→20:08)
[2018-06-05] MEDS: levETIRAcetam 100 mg/ml (5ml) Oral Syringe PO SCH ×2 (09:01→17:43)
[2018-06-05] MEDS: Meropenem 1 GM in Sodium Chloride 0.9% 100 ML IVPB SCH ×2 (09:02→21:36)
[2018-06-05] MEDS: Famotidine 40 MG/5 ML PO SCH (09:03)
--- NOTE | 2018-06-05 10:16 | CP.PCM.PN ---
Subjective - Date & Time of Evaluation Date of Evaluation: 06/05/18 Time of Evaluation: 10:16 - Subjective Subjective: ID Note- Patient seen and examined today in med-surg floor. remains drowsy and on FM for oxygenation with only moaning. Objective - Vital Signs/Intake and Output Vital Signs (last 24 hours): Temp Pulse Resp BP Pulse Ox 98 F 92 H 20 113/66 96 06/05/18 07:49 06/05/18 07:49 06/05/18 07:49 06/05/18 07:49 06/05/18 07:49 Intake and Output: 06/05/18 06/05/18 06:59 18:59 Intake Total 200 225 Output Total 1380 Balance 200 -1155 - Medications Medications: Current Medications Albuterol Sulfate (Albuterol 0.083% Inhal Chantale (2.5 Mg/3 Ml) Ud) 2.5 mg INH RQID [facility] Last Admin: 06/05/18 07:31 Dose: 2.5 mg Albuterol Sulfate (Albuterol 0.083% Inhal Chantale (2.5 Mg/3 Ml) Ud) 2.5 mg INH RQ4 PRN PRN Reason: Shortness of Breath Last Admin: 05/30/18 00:25 Dose: 2.5 mg Dimethicone (Proshield Plus Skin Protectant) 1 applic TOP Q8 [facility] Last Admin: 06/05/18 09:03 Dose: 1 applic Famotidine (Pepcid) 40 mg PO DAILY [facility] Last Admin: 06/05/18 09:03 Dose: 40 mg Furosemide (Lasix) 40 mg IVP DAILY [facility] Last Admin: 06/01/18 08:52 Dose: 40 mg Meropenem 1 gm/ Sodium (Chloride) 100 mls @ 100 mls/hr IVPB Q12 [facility]; Protocol Last Admin: 06/05/18 09:02 Dose: 100 mls/hr Vancomycin HCl 500 mg/ Sodium (Chloride) 100 mls @ 100 mls/hr IVPB Q12@1000,2200 [facility]; Protocol Last Admin: 06/04/18 21:53 Dose: 100 mls/hr Lactulose (Enulose) 20 gm PO DAILY PRN PRN Reason: Constipation Last Admin: 05/29/18 18:39 Dose: 20 gm Levetiracetam (Keppra) 500 mg PO BID [facility] Last Admin: 06/05/18 09:01 Dose: 500 mg Morphine Sulfate (Morphine) 2 mg IVP Q6 PRN PRN Reason: Pain, moderate (4-7) - Labs Labs: - Additional Findings Additional findings: - Constitutional Appears: Chronically Ill Additional comments: nonverbal, lethargic - Head Exam Head Exam: ATRAUMATIC - ENT Exam Additional comments: dry oral mucosa - Neck Exam Neck exam: Positive for: Full Rom - Respiratory Exam Additional comments: tachypneic no wheezing decreased breath sounds at bases - Cardiovascular Exam Cardiovascular Exam: RRR, +S1, +S2 - GI/Abdominal Exam GI & Abdominal Exam: Normal Bowel Sounds, Soft Additional comments: NT, ND - Extremities Exam Additional comments: right femur surgical site clean/dry/Intact no erythema has left great toe small ulcer at the tip , no discharge, no open wound - Neurological Exam Neurological exam: Altered but more awake today - Skin Additional comments: mid sacral stage 4 decub, no discharge mid upper back 2 smaller ulcerations one stage 2 with other one stage 1 Laboratory Results - last 72 hr 06/03/18 06/03/18 06/04/18 09:50 11:00 04:21 WBC 6.9 RBC 3.01 L Hgb 8.7 L Hct 26.6 L MCV 88.3 MCH 28.9 MCHC 32.7 L RDW 17.3 H Plt Count 199 MPV 11.6 Neut % (Auto) 82.1 H Lymph % (Auto) 8.1 L [place] % (Auto) 8.1 Eos % (Auto) 1.1 Baso % (Auto) 0.6 Neut # (Auto) 5.6 Lymph # (Auto) 0.6 L [place] # (Auto) 0.6 Eos # (Auto) 0.1 Baso # (Auto) 0.0 Neutrophils % (Manual) 82 H Band Neutrophils % 2 Lymphocytes % (Manual) 8 L Monocytes % (Manual) 6 Eosinophils % (Manual) 1 Metamyelocytes % 1 H Platelet Estimate Normal Large Platelets Present Hypochromasia (manual) Slight Anisocytosis (manual) Slight Ovalocytes Slight Sodium 137 137 Potassium 3.7 3.8 Chloride 90 L 89 L Carbon Dioxide 39 H 41 H* Anion Gap 12 11 BUN 15 16 Creatinine 0.3 L 0.3 L Est GFR ( Amer) > 60 > 60 Est GFR (Non-Af Amer) > 60 > 60 Random Glucose 122 H 138 H Calcium 8.2 L 8.0 L Phosphorus 2.6 Magnesium 2.2 Total Bilirubin 0.6 0.5 AST 25 25 ALT 25 25 Alkaline Phosphatase 106 107 Total Protein 6.0 L 5.9 L Albumin 2.4 L 2.4 L Globulin 3.5 3.5 Albumin/Globulin Ratio 0.7 L 0.7 L 06/04/18 04:21 WBC 6.9 RBC 2.90 L Hgb 8.3 L Hct 25.6 L MCV 88.3 MCH 28.8 MCHC 32.6 L RDW 17.4 H Plt Count 203 MPV 11.5 Neut % (Auto) 79.4 H Lymph % (Auto) 9.8 L [place] % (Auto) 8.7 Eos % (Auto) 1.3 Baso % (Auto) 0.8 Neut # (Auto) 5.5 Lymph # (Auto) 0.7 L [place] # (Auto) 0.6 Eos # (Auto) 0.1 Baso # (Auto) 0.1 Neutrophils % (Manual) Band Neutrophils % Lymphocytes % (Manual) Monocytes % (Manual) Eosinophils % (Manual) Metamyelocytes % Platelet Estimate Large Platelets Hypochromasia (manual) Anisocytosis (manual) Ovalocytes Sodium Potassium Chloride Carbon Dioxide Anion Gap BUN Creatinine Est GFR ( Amer) Est GFR (Non-Af Amer) Random Glucose Calcium Phosphorus Magnesium Total Bilirubin AST ALT Alkaline Phosphatase Total Protein Albumin Globulin Albumin/Globulin Ratio Microbiology 05/25/18 16:35 Blood-Venous Blood Culture - Final NO GROWTH AFTER 5 DAYS 05/25/18 16:35 Blood-Venous Gram Stain - Final TEST NOT PERFORMED 05/25/18 16:25 Blood-Venous Blood Culture - Final NO GROWTH AFTER 5 DAYS 05/25/18 16:25 Blood-Venous Gram Stain - Final TEST NOT PERFORMED 05/27/18 16:08 Sputum Gram Stain - Final 05/27/18 16:08 Sputum Sputum Culture - Final Escherichia Coli 05/26/18 06:30 Urine,[facility]ae[facility] Urine Culture - Final Escherichia Coli 05/21/18 09:10 Blood-Venous Blood Culture - Final NO GROWTH AFTER 5 DAYS 05/21/18 09:10 Blood-Venous Gram Stain - Final TEST NOT PERFORMED 05/20/18 13:00 Blood Blood Culture - Final NO GROWTH AFTER 5 DAYS 05/20/18 13:00 Blood Gram Stain - Final TEST NOT PERFORMED 05/20/18 17:43 Nose MRSA Culture (Admit) - Final MRSA NOT DETECTED 05/20/18 13:34 Urine,Baeza Urine Culture - Final Enterococcus Faecalis Assessment and Plan (1) Altered mental status Status: Acute (2) Decubitus ulcer of sacral area Status: Acute (3) Deep tissue injury Status: Acute (4) Hx of fracture of femur Status: Chronic (5) Seizure disorder Status: Chronic - Assessment and Plan (Free Text) Assessment: A/P 83 year old female with multiple medical conditions icnluding CAD, Dementia, COPD, recent right femur ORIF admitted form [place] for AMS and fever. pt. has been afebrile since admission. mild leukocytosis has resolved. UA- negative, urine cx- E.fecalis ( could eb contaminant ) since the UA from same day negative. repeat UA from [place] 05/26/2018- Negative urine cx 05/26/2018- ESBL e.coli sputum cx- reported as ESBL e.coli as well Blood cx- neg x 3 repeat cxr reported as improved. PLan- advise to monitor aspiration precautions as well. advise to continue with meropenem to treat the ESBL e.coli sputum cx. day #8 advise 2 more days of meropnem. has completed 7 days of IV vancomyicn as well. advise to d/c montyo today.
--- NOTE | 2018-06-05 11:07 | CP.PCM.PN ---
<Marc Schrader - Last Filed: 06/05/18 11:04> Subjective - Date & Time of Evaluation Date of Evaluation: 06/05/18 Time of Evaluation: 11:04 - Subjective Subjective: Marc Schrader DO PGY1 - Cardiology Note for Dr. Varghese Seen and evaluated at bedside No change in clinical status; continues to be minimally responsive w/ moaning. W ill wake up to sternal rub Objective - Vital Signs/Intake and Output Vital Signs (last 24 hours): Temp Pulse Resp BP Pulse Ox 98 F 92 H 20 113/66 96 06/05/18 07:49 06/05/18 07:49 06/05/18 07:49 06/05/18 07:49 06/05/18 07:49 Intake and Output: 06/05/18 06/05/18 06:59 18:59 Intake Total 200 225 Output Total 1380 Balance 200 -1155 - Medications Medications: Current Medications Albuterol Sulfate (Albuterol 0.083% Inhal Chantale (2.5 Mg/3 Ml) Ud) 2.5 mg INH RQID [facility] Last Admin: 06/05/18 07:31 Dose: 2.5 mg Albuterol Sulfate (Albuterol 0.083% Inhal Chantale (2.5 Mg/3 Ml) Ud) 2.5 mg INH RQ4 PRN PRN Reason: Shortness of Breath Last Admin: 05/30/18 00:25 Dose: 2.5 mg Dimethicone (Proshield Plus Skin Protectant) 1 applic TOP Q8 [facility] Last Admin: 06/05/18 09:03 Dose: 1 applic Famotidine (Pepcid) 40 mg PO DAILY [facility] Last Admin: 06/05/18 09:03 Dose: 40 mg Furosemide (Lasix) 40 mg IVP DAILY [facility] Last Admin: 06/01/18 08:52 Dose: 40 mg Meropenem 1 gm/ Sodium (Chloride) 100 mls @ 100 mls/hr IVPB Q12 [facility]; Protocol Last Admin: 06/05/18 09:02 Dose: 100 mls/hr Vancomycin HCl 500 mg/ Sodium (Chloride) 100 mls @ 100 mls/hr IVPB Q12@1000,2200 [facility]; Protocol Last Admin: 06/05/18 10:36 Dose: 100 mls/hr Lactulose (Enulose) 20 gm PO DAILY PRN PRN Reason: Constipation Last Admin: 05/29/18 18:39 Dose: 20 gm Levetiracetam (Keppra) 500 mg PO BID [facility] Last Admin: 06/05/18 09:01 Dose: 500 mg Morphine Sulfate (Morphine) 2 mg IVP Q6 PRN PRN Reason: Pain, moderate (4-7) - Labs Labs: 06/04/18 04:21 06/04/18 04:21 PT 20.0 Seconds (9.8-13.1) H 05/20/18 13:00 INR 1.8 05/20/18 13:00 APTT 30.8 Seconds (25.6-37.1) 05/20/18 13:00 - Constitutional Appears: Cachectic, Chronically Ill - Head Exam Head Exam: ATRAUMATIC, NORMOCEPHALIC - Eye Exam Eye Exam: Normal appearance - Respiratory Exam Respiratory Exam: Rales, Rhonchi - Cardiovascular Exam Cardiovascular Exam: Tachycardia, RRR, +S1, +S2 - GI/Abdominal Exam GI & Abdominal Exam: Soft, Normal Bowel Sounds. absent: Tenderness - Extremities Exam Additional comments: Significant BL UE edema w/ pitting No LE edema - Neurological Exam Neurological Exam: Alert, Awake Assessment and Plan (1) Sepsis Status: Acute (2) Hx of congestive heart failure Status: Chronic (3) HTN (hypertension) Status: Acute (4) Abdominal pain Status: Acute (5) Sepsis Status: Acute - Assessment and Plan (Free Text) Plan: 83F w/ PMH Alzheimers, HTN, HLD, Asthma, Anxiety, diastolic CHF, previously normal stress test (may 2017) admitted for sepsis growing ESBL in urine + sputum - cardiology consulted for management of chronic cardiac conditions Most recent echo (05/2018) - EF of 60-65%; Grade 1- abnormal relaxation pattern w/ mild AR and mild TR Troponin + BNP wnl HD stable C/w Daily Lasix DNR/DNI at this time Continue medical management at this time; No further changes to management from a cardiovascular stand point at this time. Will s/o, please reconsult as necessary. Further reccs per Dr. Varghese <Juarez Varghese - Last Filed: 06/05/18 23:17> Objective - Vital Signs/Intake and Output Vital Signs (last 24 hours): Temp Pulse Resp BP Pulse Ox 98.4 F 100 H 20 146/74 94 L 06/05/18 17:00 06/05/18 17:00 06/05/18 17:00 06/05/18 17:00 06/05/18 17:00 Intake and Output: 06/05/18 06/06/18 18:59 06:59 Intake Total 225 Output Total 1930 Balance -1705 - Medications Medications: Current Medications Albuterol Sulfate (Albuterol 0.083% Inhal Chantale (2.5 Mg/3 Ml) Ud) 2.5 mg INH RQID [facility] Last Admin: 06/05/18 20:08 Dose: 2.5 mg Albuterol Sulfate (Albuterol 0.083% Inhal Chantale (2.5 Mg/3 Ml) Ud) 2.5 mg INH RQ4 PRN PRN Reason: Shortness of Breath Last Admin: 05/30/18 00:25 Dose: 2.5 mg Dimethicone (Proshield Plus Skin Protectant) 1 applic TOP Q8 [facility] Last Admin: 06/05/18 17:43 Dose: 1 applic Famotidine (Pepcid) 40 mg PO DAILY [facility] Last Admin: 06/05/18 09:03 Dose: 40 mg Furosemide (Lasix) 40 mg IVP DAILY [facility] Last Admin: 06/01/18 08:52 Dose: 40 mg Meropenem 1 gm/ Sodium (Chloride) 100 mls @ 100 mls/hr IVPB Q12 [facility]; Protocol Last Admin: 06/05/18 21:36 Dose: 100 mls/hr Lactulose (Enulose) 20 gm PO DAILY PRN PRN Reason: Constipation Last Admin: 05/29/18 18:39 Dose: 20 gm Levetiracetam (Keppra) 500 mg PO BID [facility] Last Admin: 06/05/18 17:43 Dose: 500 mg Morphine Sulfate (Morphine) 2 mg IVP Q6 PRN PRN Reason: Pain, moderate (4-7) - Labs Labs: 06/04/18 04:21 06/04/18 04:21 PT 20.0 Seconds (9.8-13.1) H 05/20/18 13:00 INR 1.8 05/20/18 13:00 APTT 30.8 Seconds (25.6-37.1) 05/20/18 13:00 Assessment and Plan (1) CHF (congestive heart failure) Status: Acute (2) Sepsis Status: Acute (3) Encephalopathy acute Status: Acute (4) HTN (hypertension) Status: Acute Attending/Attestation - Attestation I have personally seen and examined this patient.: Yes I have fully participated in the care of the patient.: Yes I have reviewed all pertinent clinical information, including history, physical exam and plan: Yes
--- NOTE | 2018-06-05 14:46 | CP.PCM.PN ---
Subjective - Date & Time of Evaluation Date of Evaluation: 06/05/18 Time of Evaluation: 12:45 - Subjective Subjective: F/U AMS, PNA. no response to verbal/tactil stimuli, V Mask 50% Objective - Vital Signs/Intake and Output Vital Signs (last 24 hours): Temp Pulse Resp BP Pulse Ox 98 F 92 H 20 113/66 96 06/05/18 07:49 06/05/18 07:49 06/05/18 07:49 06/05/18 07:49 06/05/18 07:49 Intake and Output: 06/05/18 06/05/18 06:59 18:59 Intake Total 200 225 Output Total 1380 Balance 200 -1155 - Medications Medications: Current Medications Albuterol Sulfate (Albuterol 0.083% Inhal Chantale (2.5 Mg/3 Ml) Ud) 2.5 mg INH RQID [facility] Last Admin: 06/05/18 11:29 Dose: 2.5 mg Albuterol Sulfate (Albuterol 0.083% Inhal Chantale (2.5 Mg/3 Ml) Ud) 2.5 mg INH RQ4 PRN PRN Reason: Shortness of Breath Last Admin: 05/30/18 00:25 Dose: 2.5 mg Dimethicone (Proshield Plus Skin Protectant) 1 applic TOP Q8 [facility] Last Admin: 06/05/18 09:03 Dose: 1 applic Famotidine (Pepcid) 40 mg PO DAILY [facility] Last Admin: 06/05/18 09:03 Dose: 40 mg Furosemide (Lasix) 40 mg IVP DAILY [facility] Last Admin: 06/01/18 08:52 Dose: 40 mg Meropenem 1 gm/ Sodium (Chloride) 100 mls @ 100 mls/hr IVPB Q12 [facility]; Protocol Last Admin: 06/05/18 09:02 Dose: 100 mls/hr Vancomycin HCl 500 mg/ Sodium (Chloride) 100 mls @ 100 mls/hr IVPB Q12@1000,2200 [facility]; Protocol Last Admin: 06/05/18 10:36 Dose: 100 mls/hr Lactulose (Enulose) 20 gm PO DAILY PRN PRN Reason: Constipation Last Admin: 05/29/18 18:39 Dose: 20 gm Levetiracetam (Keppra) 500 mg PO BID [facility] Last Admin: 06/05/18 09:01 Dose: 500 mg Morphine Sulfate (Morphine) 2 mg IVP Q6 PRN PRN Reason: Pain, moderate (4-7) - Labs Labs: 06/04/18 04:21 06/04/18 04:21 PT 20.0 Seconds (9.8-13.1) H 05/20/18 13:00 INR 1.8 05/20/18 13:00 APTT 30.8 Seconds (25.6-37.1) 05/20/18 13:00 - Constitutional Appears: Chronically Ill - Head Exam Head Exam: NORMAL INSPECTION - Eye Exam Additional comments: Pupils sluggish reactive to light. - ENT Exam Additional comments: NGT - Neck Exam Neck Exam: Normal Inspection - Respiratory Exam Respiratory Exam: Decreased Breath Sounds (at bases) - Cardiovascular Exam Cardiovascular Exam: REGULAR RHYTHM - GI/Abdominal Exam GI & Abdominal Exam: Soft, Normal Bowel Sounds - Extremities Exam Additional comments: non pitting edema BUE - Back Exam Additional comments: L-S decubitus stage IV. DTI upper back - Neurological Exam Additional comments: Non verbal, unable to follow commands, no response to tactile or verbal stimuli. - Skin Skin Exam: Warm Assessment and Plan (1) CHF (congestive heart failure) Status: Acute (2) Aspiration pneumonia Status: Acute (3) Sepsis Status: Acute (4) Toxic metabolic encephalopathy Status: Acute (5) Altered mental status Status: Acute (6) UTI (urinary tract infection) Status: Acute (7) Dehydration Status: Resolved (8) Hypernatremia Status: Resolved (9) Decubitus ulcer of sacral area Status: Acute (10) Deep tissue injury Status: Acute (11) Chronic back pain Status: Chronic (12) Hx of fracture of femur Status: Chronic (13) HTN (hypertension) Status: Acute (14) COPD (chronic obstructive pulmonary disease) Status: Chronic (15) Hx of congestive heart failure Status: Chronic (16) Seizure disorder Status: Chronic - Assessment and Plan (Free Text) Plan: Yudy HART, continue Merren for 2 days, Rashawn Mcrae Proshield, Prognosis poor, Pt is DNI, DNR
[2018-06-06] MEDS: Proshield Plus GEL TOP SCH ×3 (01:23→17:17)
[2018-06-06] MEDS: Albuterol 0.083% Inhal Sol (2.5 mg/3 mL) UD INH SCH ×4 (07:38→19:25)
[2018-06-06] MEDS: levETIRAcetam 100 mg/ml (5ml) Oral Syringe PO SCH ×2 (10:25→17:17)
[2018-06-06] MEDS: Meropenem 1 GM in Sodium Chloride 0.9% 100 ML IVPB SCH ×2 (10:26→21:31)
[2018-06-06] MEDS: Famotidine 40 MG/5 ML PO SCH (10:26)
--- NOTE | 2018-06-06 14:33 | CP.PCM.PN ---
Subjective - Date & Time of Evaluation Date of Evaluation: 06/06/18 Time of Evaluation: 12:20 - Subjective Subjective: F/U AMS no response to verbal/tactil stimuli Objective - Vital Signs/Intake and Output Vital Signs (last 24 hours): Temp Pulse Resp BP Pulse Ox 97.3 F L 101 H 20 129/68 97 06/06/18 08:14 06/06/18 08:14 06/06/18 08:14 06/06/18 08:14 06/06/18 08:14 Intake and Output: 06/06/18 06/06/18 06:59 18:59 Intake Total 680 Output Total 500 Balance 180 - Medications Medications: Current Medications Albuterol Sulfate (Albuterol 0.083% Inhal Chantale (2.5 Mg/3 Ml) Ud) 2.5 mg INH RQID [facility] Last Admin: 06/06/18 11:18 Dose: 2.5 mg Albuterol Sulfate (Albuterol 0.083% Inhal Chantale (2.5 Mg/3 Ml) Ud) 2.5 mg INH RQ4 PRN PRN Reason: Shortness of Breath Last Admin: 05/30/18 00:25 Dose: 2.5 mg Dimethicone (Proshield Plus Skin Protectant) 1 applic TOP Q8 [facility] Last Admin: 06/06/18 10:27 Dose: 1 applic Famotidine (Pepcid) 40 mg PO DAILY [facility] Last Admin: 06/06/18 10:26 Dose: 40 mg Furosemide (Lasix) 40 mg IVP DAILY [facility] Last Admin: 06/01/18 08:52 Dose: 40 mg Meropenem 1 gm/ Sodium (Chloride) 100 mls @ 100 mls/hr IVPB Q12 [facility]; Protocol Last Admin: 06/06/18 10:26 Dose: 100 mls/hr Lactulose (Enulose) 20 gm PO DAILY PRN PRN Reason: Constipation Last Admin: 05/29/18 18:39 Dose: 20 gm Levetiracetam (Keppra) 500 mg PO BID [facility] Last Admin: 06/06/18 10:25 Dose: 500 mg Morphine Sulfate (Morphine) 2 mg IVP Q6 PRN PRN Reason: Pain, moderate (4-7) - Labs Labs: 06/04/18 04:21 06/04/18 04:21 PT 20.0 Seconds (9.8-13.1) H 05/20/18 13:00 INR 1.8 05/20/18 13:00 APTT 30.8 Seconds (25.6-37.1) 05/20/18 13:00 - Constitutional Appears: Chronically Ill - Head Exam Head Exam: NORMAL INSPECTION - Eye Exam Additional comments: Pupils sluggish reactive to light - ENT Exam Additional comments: NGT - Neck Exam Neck Exam: Normal Inspection - Respiratory Exam Respiratory Exam: Decreased Breath Sounds (at bases) Additional comments: On Venti-mask - Cardiovascular Exam Cardiovascular Exam: Tachycardia - GI/Abdominal Exam GI & Abdominal Exam: Soft, Normal Bowel Sounds - Exam Additional comments: De La Cruz Cath - Extremities Exam Additional comments: R thigh incision healing well, edema BUE - Back Exam Additional comments: L-S decubitus stage IV. DTI upper back - Neurological Exam Additional comments: No response to verbal/tactil stimuli, generalized weakness. - Skin Skin Exam: Warm Assessment and Plan (1) CHF (congestive heart failure) Status: Acute (2) Aspiration pneumonia Status: Acute (3) Sepsis Status: Acute (4) Toxic metabolic encephalopathy Status: Acute (5) Altered mental status Status: Acute (6) UTI (urinary tract infection) Status: Acute (7) Dehydration Status: Resolved (8) Hypernatremia Status: Resolved (9) Decubitus ulcer of sacral area Status: Acute (10) Deep tissue injury Status: Acute (11) Chronic back pain Status: Chronic (12) Hx of fracture of femur Status: Chronic (13) HTN (hypertension) Status: Acute (14) COPD (chronic obstructive pulmonary disease) Status: Chronic (15) Hx of congestive heart failure Status: Chronic (16) Seizure disorder Status: Chronic - Assessment and Plan (Free Text) Plan: continue DuoNeb, Keppra, Lasix, Proshield, V Mask, NG tube,DNR, DNI, attempt to contact Pt's son regarding Hospice, alternative PEG tube insertion that would allow Patient to be transfer to Home, Patient clinical condition is very poor for the procedure, if He agrees f/u Cardiology and Anesthesia clereance
--- NOTE | 2018-06-06 16:09 | CP.PCM.PN ---
Subjective - Date & Time of Evaluation Date of Evaluation: 06/06/18 Time of Evaluation: 13:30 - Subjective Subjective: no change in condition Objective - Vital Signs/Intake and Output Vital Signs (last 24 hours): Temp Pulse Resp BP Pulse Ox 98.1 F 103 H 20 129/66 98 06/06/18 16:03 06/06/18 16:03 06/06/18 16:03 06/06/18 16:03 06/06/18 16:03 Intake and Output: 06/06/18 06/06/18 06:59 18:59 Intake Total 680 Output Total 500 Balance 180 - Medications Medications: Current Medications Albuterol Sulfate (Albuterol 0.083% Inhal Chantale (2.5 Mg/3 Ml) Ud) 2.5 mg INH RQID [facility] Last Admin: 06/06/18 15:27 Dose: 2.5 mg Albuterol Sulfate (Albuterol 0.083% Inhal Chantale (2.5 Mg/3 Ml) Ud) 2.5 mg INH RQ4 PRN PRN Reason: Shortness of Breath Last Admin: 05/30/18 00:25 Dose: 2.5 mg Dimethicone (Proshield Plus Skin Protectant) 1 applic TOP Q8 [facility] Last Admin: 06/06/18 10:27 Dose: 1 applic Famotidine (Pepcid) 40 mg PO DAILY [facility] Last Admin: 06/06/18 10:26 Dose: 40 mg Furosemide (Lasix) 40 mg IVP DAILY [facility] Last Admin: 06/01/18 08:52 Dose: 40 mg Meropenem 1 gm/ Sodium (Chloride) 100 mls @ 100 mls/hr IVPB Q12 [facility]; Protocol Last Admin: 06/06/18 10:26 Dose: 100 mls/hr Lactulose (Enulose) 20 gm PO DAILY PRN PRN Reason: Constipation Last Admin: 05/29/18 18:39 Dose: 20 gm Levetiracetam (Keppra) 500 mg PO BID [facility] Last Admin: 06/06/18 10:25 Dose: 500 mg Morphine Sulfate (Morphine) 2 mg IVP Q6 PRN PRN Reason: Pain, moderate (4-7) - Labs Labs: 06/04/18 04:21 06/04/18 04:21 PT 20.0 Seconds (9.8-13.1) H 05/20/18 13:00 INR 1.8 05/20/18 13:00 APTT 30.8 Seconds (25.6-37.1) 05/20/18 13:00 - Neck Exam Neck Exam: Normal Inspection - Respiratory Exam Respiratory Exam: Rhonchi - Cardiovascular Exam Cardiovascular Exam: REGULAR RHYTHM - GI/Abdominal Exam GI & Abdominal Exam: Soft, Normal Bowel Sounds Assessment and Plan - Assessment and Plan (Free Text) Assessment: 83 yo female with dysphagia plan for peg once cleared by anesthesia
--- NOTE | 2018-06-06 16:46 | CP.PCM.PN ---
Subjective - Date & Time of Evaluation Date of Evaluation: 06/06/18 Time of Evaluation: 16:46 - Subjective Subjective: Neurology Follow-Up Note: Mrs. Laureano was evaluated this afternoon at bedside. Pt remains nonverbal and unable to answer questions or follow commands. Chart reviewed. ROS unobtainable from pt 2/2 her current condition. Objective - Vital Signs/Intake and Output Vital Signs (last 24 hours): Temp Pulse Resp BP Pulse Ox 98.1 F 103 H 20 129/66 98 06/06/18 16:03 06/06/18 16:03 06/06/18 16:03 06/06/18 16:03 06/06/18 16:03 Intake and Output: 06/06/18 06/06/18 06:59 18:59 Intake Total 680 Output Total 500 Balance 180 - Medications Medications: Current Medications Albuterol Sulfate (Albuterol 0.083% Inhal Chantale (2.5 Mg/3 Ml) Ud) 2.5 mg INH RQID [facility] Last Admin: 06/06/18 15:27 Dose: 2.5 mg Albuterol Sulfate (Albuterol 0.083% Inhal Chantale (2.5 Mg/3 Ml) Ud) 2.5 mg INH RQ4 PRN PRN Reason: Shortness of Breath Last Admin: 05/30/18 00:25 Dose: 2.5 mg Dimethicone (Proshield Plus Skin Protectant) 1 applic TOP Q8 [facility] Last Admin: 06/06/18 10:27 Dose: 1 applic Famotidine (Pepcid) 40 mg PO DAILY [facility] Last Admin: 06/06/18 10:26 Dose: 40 mg Furosemide (Lasix) 40 mg IVP DAILY [facility] Last Admin: 06/01/18 08:52 Dose: 40 mg Meropenem 1 gm/ Sodium (Chloride) 100 mls @ 100 mls/hr IVPB Q12 [facility]; Protocol Last Admin: 06/06/18 10:26 Dose: 100 mls/hr Lactulose (Enulose) 20 gm PO DAILY PRN PRN Reason: Constipation Last Admin: 05/29/18 18:39 Dose: 20 gm Levetiracetam (Keppra) 500 mg PO BID [facility] Last Admin: 06/06/18 10:25 Dose: 500 mg Morphine Sulfate (Morphine) 2 mg IVP Q6 PRN PRN Reason: Pain, moderate (4-7) - Labs Labs: 06/04/18 04:21 06/04/18 04:21 PT 20.0 Seconds (9.8-13.1) H 05/20/18 13:00 INR 1.8 05/20/18 13:00 APTT 30.8 Seconds (25.6-37.1) 05/20/18 13:00 - Constitutional Appears: No Acute Distress, Confused - Head Exam Head Exam: NORMAL INSPECTION, NORMOCEPHALIC - Eye Exam Eye Exam: Normal appearance, PERRL. absent: Nystagmus Pupil Exam: NORMAL ACCOMODATION - ENT Exam ENT Exam: Mucous Membranes Moist - Neck Exam Neck Exam: Normal Inspection - GI/Abdominal Exam GI & Abdominal Exam: Soft Additional comments: ngt - Extremities Exam Extremities Exam: absent: Calf Tenderness, Full ROM, Pedal Edema Additional comments: BUE +resistance and tone noted; BUE fall immediately to bed when raised, no resistance noted. - Neurological Exam Neurological Exam: Altered Additional comments: Pt remains lethargic, nonverbal and moans on occasion during exam. She moans and did not open eyes to sternal rub today. Still unable to follow commands. BUE +resistance and tone noted; BUE fall immediately to bed when raised, no resistance noted. No tremors noted. Toes down-going b/l. Unable to assess sensation 2/2 pt nonverbal and not following commands. - Psychiatric Exam Psychiatric exam: absent: Normal Affect, Normal Mood (nonverbal, lethargic, moans during exam) - Skin Skin Exam: Dry, Warm Assessment and Plan (1) Toxic metabolic encephalopathy Assessment & Plan: Imaging reviewed: -MRI brain without contrast (05/29/18): Stable age-related neuro degenerative changes are identified without acute interval findings as per above. -EEG (05/22/18): This is an abnormal EEG record that demonstrate the presence of a mild to moderate non specific diffuse disturbance of cortical activity, this is in keeping with a diffuse way matter dysfunction. These findings do not support a specific etiology. 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 No seizures were captured. -CT head (05/20/18): No acute intracranial pathology. Age-related changes. Mild sphenoid sinus disease. No significant interval change. Overall, there have been no changes nor improvements in pt's condition. Mrs. Laureano's mentation is still not improved since we have been on the case. Last imaging shows no acute intracranial involvement. She was having multiple infectious processes which may have been contributing to her mental status. She is still a DNR/DNI. -Continue current treatment and management of infectious process and electrolyte imbalance. -Continue Keppra as ordered as the pt seems to be tolerating. -Notify neuro team of any acute changes in pt's condition. No further neuro re commendations; please reconsult prn. Thank you for allowing us to participate in this pt's care. Case discussed with Status: Acute
[2018-06-07] MEDS: Proshield Plus GEL TOP SCH ×3 (02:06→18:01)
[2018-06-07] MEDS: Albuterol 0.083% Inhal Sol (2.5 mg/3 mL) UD INH SCH ×4 (07:32→19:42)
[2018-06-07] MEDS: levETIRAcetam 100 mg/ml (5ml) Oral Syringe PO SCH ×2 (10:35→18:01)
[2018-06-07] MEDS: Meropenem 1 GM in Sodium Chloride 0.9% 100 ML IVPB SCH ×2 (10:35→21:19)
[2018-06-07] MEDS: Famotidine 40 MG/5 ML PO SCH (10:36)
--- NOTE | 2018-06-07 13:11 | CP.PCM.PN ---
Subjective - Date & Time of Evaluation Date of Evaluation: 06/07/18 Time of Evaluation: 10:20 - Subjective Subjective: F/U AMS no response to verbal/tactil stimuli Objective - Vital Signs/Intake and Output Vital Signs (last 24 hours): Temp Pulse Resp BP Pulse Ox 97.8 F 101 H 20 117/64 98 06/07/18 08:14 06/07/18 08:14 06/07/18 08:14 06/07/18 08:14 06/07/18 08:14 Intake and Output: 06/07/18 06/07/18 06:59 18:59 Intake Total 630 Output Total 500 Balance 130 - Medications Medications: Current Medications Albuterol Sulfate (Albuterol 0.083% Inhal Chantale (2.5 Mg/3 Ml) Ud) 2.5 mg INH RQID [facility] Last Admin: 06/07/18 11:35 Dose: 2.5 mg Albuterol Sulfate (Albuterol 0.083% Inhal Chantale (2.5 Mg/3 Ml) Ud) 2.5 mg INH RQ4 PRN PRN Reason: Shortness of Breath Last Admin: 05/30/18 00:25 Dose: 2.5 mg Dimethicone (Proshield Plus Skin Protectant) 1 applic TOP Q8 [facility] Last Admin: 06/07/18 10:36 Dose: 1 applic Famotidine (Pepcid) 40 mg PO DAILY [facility] Last Admin: 06/07/18 10:36 Dose: 40 mg Furosemide (Lasix) 40 mg IVP DAILY [facility] Last Admin: 06/01/18 08:52 Dose: 40 mg Meropenem 1 gm/ Sodium (Chloride) 100 mls @ 100 mls/hr IVPB Q12 [facility]; Protocol Last Admin: 06/07/18 10:35 Dose: 100 mls/hr Lactulose (Enulose) 20 gm PO DAILY PRN PRN Reason: Constipation Last Admin: 05/29/18 18:39 Dose: 20 gm Levetiracetam (Keppra) 500 mg PO BID [facility] Last Admin: 06/07/18 10:35 Dose: 500 mg Morphine Sulfate (Morphine) 2 mg IVP Q6 PRN PRN Reason: Pain, moderate (4-7) - Labs Labs: 06/04/18 04:21 06/04/18 04:21 PT 20.0 Seconds (9.8-13.1) H 05/20/18 13:00 INR 1.8 05/20/18 13:00 APTT 30.8 Seconds (25.6-37.1) 05/20/18 13:00 - Constitutional Appears: Chronically Ill - Head Exam Head Exam: NORMAL INSPECTION - Eye Exam Additional comments: Pupils sluggish reactive to light - ENT Exam Additional comments: NGT - Neck Exam Neck Exam: Normal Inspection - Respiratory Exam Respiratory Exam: Decreased Breath Sounds (at bases) - Cardiovascular Exam Cardiovascular Exam: Tachycardia - GI/Abdominal Exam GI & Abdominal Exam: Soft, Normal Bowel Sounds Additional comments: NGT - Exam Additional comments: Cath in place. - Extremities Exam Additional comments: R thigh incision healing well - Back Exam Additional comments: L-S decubitus stage IV, DTI upper back - Neurological Exam Additional comments: Non verbal, no response to tactile or verbal stimuli, - Skin Skin Exam: Warm Assessment and Plan (1) CHF (congestive heart failure) Status: Acute (2) Aspiration pneumonia Status: Acute (3) Sepsis Status: Acute (4) Toxic metabolic encephalopathy Status: Acute (5) Altered mental status Status: Acute (6) UTI (urinary tract infection) Status: Acute (7) Dehydration Status: Resolved (8) Hypernatremia Status: Resolved (9) Decubitus ulcer of sacral area Status: Acute (10) Deep tissue injury Status: Acute (11) Chronic back pain Status: Chronic (12) Hx of fracture of femur Status: Chronic (13) HTN (hypertension) Status: Acute (14) COPD (chronic obstructive pulmonary disease) Status: Chronic (15) Hx of congestive heart failure Status: Chronic (16) Seizure disorder Status: Chronic - Assessment and Plan (Free Text) Plan: continue current Tx, NG tube feeding , V Mask 50%, continue Keppra, Lasix, Dilaudid , Proshield, will discuss with Arley's son PEG tube vs Hospice
--- NOTE | 2018-06-07 14:08 | CP.PCM.PN ---
Subjective - Date & Time of Evaluation Date of Evaluation: 06/07/18 Time of Evaluation: 14:07 - Subjective Subjective: patient seen with wound nurse present the sacral ulcer is well circumscribed there is no odor and there is minimal drainage and minimal slough there is minimal maceration as well continue with betadine soaked gauze + discomfort and will look to increase pain medications. Objective - Vital Signs/Intake and Output Vital Signs (last 24 hours): Temp Pulse Resp BP Pulse Ox 97.8 F 101 H 20 117/64 98 06/07/18 08:14 06/07/18 08:14 06/07/18 08:14 06/07/18 08:14 06/07/18 08:14 Intake and Output: 06/07/18 06/07/18 06:59 18:59 Intake Total 630 Output Total 500 Balance 130 - Medications Medications: Current Medications Albuterol Sulfate (Albuterol 0.083% Inhal Chantale (2.5 Mg/3 Ml) Ud) 2.5 mg INH RQID [facility] Last Admin: 06/07/18 11:35 Dose: 2.5 mg Albuterol Sulfate (Albuterol 0.083% Inhal Chantale (2.5 Mg/3 Ml) Ud) 2.5 mg INH RQ4 PRN PRN Reason: Shortness of Breath Last Admin: 05/30/18 00:25 Dose: 2.5 mg Dimethicone (Proshield Plus Skin Protectant) 1 applic TOP Q8 [facility] Last Admin: 06/07/18 10:36 Dose: 1 applic Famotidine (Pepcid) 40 mg PO DAILY [facility] Last Admin: 06/07/18 10:36 Dose: 40 mg Furosemide (Lasix) 40 mg IVP DAILY [facility] Last Admin: 06/01/18 08:52 Dose: 40 mg Meropenem 1 gm/ Sodium (Chloride) 100 mls @ 100 mls/hr IVPB Q12 [facility]; Protocol Last Admin: 06/07/18 10:35 Dose: 100 mls/hr Lactulose (Enulose) 20 gm PO DAILY PRN PRN Reason: Constipation Last Admin: 05/29/18 18:39 Dose: 20 gm Levetiracetam (Keppra) 500 mg PO BID [facility] Last Admin: 06/07/18 10:35 Dose: 500 mg Morphine Sulfate (Morphine) 2 mg IVP Q6 PRN PRN Reason: Pain, moderate (4-7) - Labs Labs: 06/04/18 04:21 06/04/18 04:21 PT 20.0 Seconds (9.8-13.1) H 05/20/18 13:00 INR 1.8 05/20/18 13:00 APTT 30.8 Seconds (25.6-37.1) 05/20/18 13:00
[2018-06-08] MEDS: Proshield Plus GEL TOP SCH ×3 (01:10→16:49)
[2018-06-08] MEDS: Albuterol 0.083% Inhal Sol (2.5 mg/3 mL) UD INH SCH ×4 (07:51→20:24)
--- NOTE | 2018-06-08 09:00 | CP.PCM.PN ---
Subjective - Date & Time of Evaluation Date of Evaluation: 06/07/18 Time of Evaluation: 14:00 - Subjective Subjective: no overnight events Objective - Vital Signs/Intake and Output Vital Signs (last 24 hours): Temp Pulse Resp BP Pulse Ox 97.4 F L 77 18 135/70 96 06/07/18 23:44 06/07/18 23:44 06/07/18 23:44 06/07/18 23:44 06/07/18 23:44 Intake and Output: 06/08/18 06/08/18 06:59 18:59 Intake Total 800 Output Total 600 Balance 200 - Medications Medications: Current Medications Albuterol Sulfate (Albuterol 0.083% Inhal Chantale (2.5 Mg/3 Ml) Ud) 2.5 mg INH RQID [facility] Last Admin: 06/08/18 07:51 Dose: 2.5 mg Albuterol Sulfate (Albuterol 0.083% Inhal Chantale (2.5 Mg/3 Ml) Ud) 2.5 mg INH RQ4 PRN PRN Reason: Shortness of Breath Last Admin: 05/30/18 00:25 Dose: 2.5 mg Dimethicone (Proshield Plus Skin Protectant) 1 applic TOP Q8 [facility] Last Admin: 06/08/18 01:10 Dose: 1 applic Famotidine (Pepcid) 40 mg PO DAILY [facility] Last Admin: 06/07/18 10:36 Dose: 40 mg Furosemide (Lasix) 40 mg IVP DAILY [facility] Last Admin: 06/01/18 08:52 Dose: 40 mg Hydromorphone HCl (Dilaudid) 1 mg IVP Q6 [facility] Last Admin: 06/08/18 04:08 Dose: 1 mg Meropenem 1 gm/ Sodium (Chloride) 100 mls @ 100 mls/hr IVPB Q12 [facility]; Protocol Last Admin: 06/07/18 21:19 Dose: 100 mls/hr Lactulose (Enulose) 20 gm PO DAILY PRN PRN Reason: Constipation Last Admin: 05/29/18 18:39 Dose: 20 gm Levetiracetam (Keppra) 500 mg PO BID [facility] Last Admin: 06/07/18 18:01 Dose: 500 mg - Labs Labs: 06/04/18 04:21 06/04/18 04:21 PT 20.0 Seconds (9.8-13.1) H 05/20/18 13:00 INR 1.8 05/20/18 13:00 APTT 30.8 Seconds (25.6-37.1) 05/20/18 13:00 - Head Exam Head Exam: NORMOCEPHALIC - Neck Exam Neck Exam: Normal Inspection - Respiratory Exam Respiratory Exam: Rhonchi - Cardiovascular Exam Cardiovascular Exam: REGULAR RHYTHM - GI/Abdominal Exam GI & Abdominal Exam: Soft, Normal Bowel Sounds Assessment and Plan - Assessment and Plan (Free Text) Assessment: 83 yo female with dysphagia plan for peg once family agrees
--- NOTE | 2018-06-08 09:11 | CP.PCM.PN ---
Subjective - Date & Time of Evaluation Date of Evaluation: 06/08/18 Time of Evaluation: 09:10 - Subjective Subjective: no overnight events Objective - Vital Signs/Intake and Output Vital Signs (last 24 hours): Temp Pulse Resp BP Pulse Ox 97.4 F L 77 18 135/70 96 06/07/18 23:44 06/07/18 23:44 06/07/18 23:44 06/07/18 23:44 06/07/18 23:44 Intake and Output: 06/08/18 06/08/18 06:59 18:59 Intake Total 800 Output Total 600 Balance 200 - Medications Medications: Current Medications Albuterol Sulfate (Albuterol 0.083% Inhal Chantale (2.5 Mg/3 Ml) Ud) 2.5 mg INH RQID [facility] Last Admin: 06/08/18 07:51 Dose: 2.5 mg Albuterol Sulfate (Albuterol 0.083% Inhal Chantale (2.5 Mg/3 Ml) Ud) 2.5 mg INH RQ4 PRN PRN Reason: Shortness of Breath Last Admin: 05/30/18 00:25 Dose: 2.5 mg Dimethicone (Proshield Plus Skin Protectant) 1 applic TOP Q8 [facility] Last Admin: 06/08/18 01:10 Dose: 1 applic Famotidine (Pepcid) 40 mg PO DAILY [facility] Last Admin: 06/07/18 10:36 Dose: 40 mg Furosemide (Lasix) 40 mg IVP DAILY [facility] Last Admin: 06/01/18 08:52 Dose: 40 mg Hydromorphone HCl (Dilaudid) 1 mg IVP Q6 [facility] Last Admin: 06/08/18 04:08 Dose: 1 mg Meropenem 1 gm/ Sodium (Chloride) 100 mls @ 100 mls/hr IVPB Q12 [facility]; Protocol Last Admin: 06/07/18 21:19 Dose: 100 mls/hr Lactulose (Enulose) 20 gm PO DAILY PRN PRN Reason: Constipation Last Admin: 05/29/18 18:39 Dose: 20 gm Levetiracetam (Keppra) 500 mg PO BID [facility] Last Admin: 06/07/18 18:01 Dose: 500 mg - Labs Labs: 06/04/18 04:21 06/04/18 04:21 PT 20.0 Seconds (9.8-13.1) H 05/20/18 13:00 INR 1.8 05/20/18 13:00 APTT 30.8 Seconds (25.6-37.1) 05/20/18 13:00 - Head Exam Head Exam: NORMOCEPHALIC - Neck Exam Neck Exam: Normal Inspection - Respiratory Exam Respiratory Exam: Rhonchi - Cardiovascular Exam Cardiovascular Exam: REGULAR RHYTHM - GI/Abdominal Exam GI & Abdominal Exam: Soft, Normal Bowel Sounds Assessment and Plan - Assessment and Plan (Free Text) Assessment: 83 yo female with dysphagia peg once able
[2018-06-08] MEDS: Famotidine 40 MG/5 ML PO SCH (09:31)
[2018-06-08] MEDS: Meropenem 1 GM in Sodium Chloride 0.9% 100 ML IVPB SCH (09:31)
[2018-06-08] MEDS: levETIRAcetam 100 mg/ml (5ml) Oral Syringe PO SCH ×2 (09:31→16:49)
[2018-06-08] MEDS ORDERED: Povidone Iodine Topical 10% Sol ONE (11:10)
[2018-06-08 12:00] LABS: HEMOGLOBIN 9.2 g/dL (12.0-16.0); MEAN CELL VOLUME 89.8 fl (81.0-99.0); MEAN CORPUSCULAR HEMOGLOBIN 28.6 pg (27.0-31.0); MEAN CORPUSCULAR HGB CONC 31.9 g/dL (33.0-37.0); RBC 3.23 Mil/uL (3.80-5.20); WHITE BLOOD COUNT 8.8 K/uL (4.8-10.8)
[2018-06-08 12:05] LABS: INR 1.1; PROTHROMBIN TIME 12.4 Seconds (9.8-13.1)
[2018-06-08 12:07] LABS: PARTIAL THROMBOPLASTIN TIME 28.6 Seconds (25.6-37.1)
[2018-06-08 12:47] LABS: ALB/GLOB RATIO 0.8 (1.0-2.1); ALBUMIN 2.7 g/dL (3.5-5.0); ALT/SGPT 20 U/L (9-52); AST/SGOT 36 U/L (14-36); BLOOD UREA NITROGEN 17 mg/dl (7-17); CALCIUM 8.5 mg/dL (8.4-10.2); GFR NON-AFRICAN AMERICAN > 60
--- NOTE | 2018-06-08 12:48 | CP.PCM.PN ---
Subjective - Date & Time of Evaluation Date of Evaluation: 06/08/18 Time of Evaluation: 12:48 - Subjective Subjective: ID Note- Patient seen and examined today . remain same, no new complaints. Objective - Vital Signs/Intake and Output Vital Signs (last 24 hours): Temp Pulse Resp BP Pulse Ox 97.7 F 87 18 115/68 95 06/08/18 09:00 06/08/18 09:00 06/08/18 09:00 06/08/18 09:00 06/08/18 09:00 Intake and Output: 06/08/18 06/08/18 06:59 18:59 Intake Total 800 Output Total 600 Balance 200 - Medications Medications: Current Medications Albuterol Sulfate (Albuterol 0.083% Inhal Chantale (2.5 Mg/3 Ml) Ud) 2.5 mg INH RQID [facility] Last Admin: 06/08/18 11:28 Dose: 2.5 mg Albuterol Sulfate (Albuterol 0.083% Inhal Chantale (2.5 Mg/3 Ml) Ud) 2.5 mg INH RQ4 PRN PRN Reason: Shortness of Breath Last Admin: 05/30/18 00:25 Dose: 2.5 mg Dimethicone (Proshield Plus Skin Protectant) 1 applic TOP Q8 [facility] Last Admin: 06/08/18 09:32 Dose: 1 applic Famotidine (Pepcid) 40 mg PO DAILY [facility] Last Admin: 06/08/18 09:31 Dose: 40 mg Furosemide (Lasix) 40 mg IVP DAILY [facility] Last Admin: 06/01/18 08:52 Dose: 40 mg Hydromorphone HCl (Dilaudid) 1 mg IVP Q6 [facility] Last Admin: 06/08/18 11:05 Dose: Not Given Meropenem 1 gm/ Sodium (Chloride) 100 mls @ 100 mls/hr IVPB Q12 [facility]; Protocol Last Admin: 06/08/18 09:31 Dose: 100 mls/hr Lactulose (Enulose) 20 gm PO DAILY PRN PRN Reason: Constipation Last Admin: 05/29/18 18:39 Dose: 20 gm Levetiracetam (Keppra) 500 mg PO BID [facility] Last Admin: 06/08/18 09:31 Dose: 500 mg - Labs Labs: - Additional Findings Additional findings: - Constitutional Appears: Chronically Ill Additional comments: nonverbal, - Head Exam Head Exam: ATRAUMATIC - ENT Exam Additional comments: dry oral mucosa - Neck Exam Neck exam: Positive for: Full Rom - Respiratory Exam Additional comments: no wheezing - Cardiovascular Exam Cardiovascular Exam: RRR, +S1, +S2 - GI/Abdominal Exam GI & Abdominal Exam: Normal Bowel Sounds, Soft Additional comments: NT, ND - Extremities Exam Additional comments: right femur surgical site clean/dry/Intact no erythema has left great toe small ulcer at the tip , no discharge, no open wound - Neurological Exam Neurological exam: baseline does not answer questions - Skin Additional comments: mid sacral stage 4 decub, no discharge mid upper back 2 smaller ulcerations one stage 2 with other one stage 1 Laboratory Results - last 72 hr 06/08/18 06/08/18 06/08/18 11:50 11:50 11:50 WBC 8.8 RBC 3.23 L Hgb 9.2 L Hct 29.0 L MCV 89.8 MCH 28.6 MCHC 31.9 L RDW 19.0 H Plt Count 279 PT 12.4 INR 1.1 APTT 28.6 Sodium 135 Potassium 4.6 Chloride 92 L Carbon Dioxide 37 H Anion Gap 11 BUN 17 Creatinine 0.2 L Est GFR ( Amer) > 60 Est GFR (Non-Af Amer) > 60 Random Glucose 121 H Calcium 8.5 Total Bilirubin 0.3 AST 36 D ALT 20 Alkaline Phosphatase 117 Total Protein 6.3 Albumin 2.7 L Globulin 3.5 Albumin/Globulin Ratio 0.8 L Microbiology 06/04/18 17:25 Naris MRSA Culture (Admit) - Final MRSA NOT DETECTED 05/25/18 16:35 Blood-Venous Blood Culture - Final NO GROWTH AFTER 5 DAYS 05/25/18 16:35 Blood-Venous Gram Stain - Final TEST NOT PERFORMED 05/25/18 16:25 Blood-Venous Blood Culture - Final NO GROWTH AFTER 5 DAYS 05/25/18 16:25 Blood-Venous Gram Stain - Final TEST NOT PERFORMED 05/27/18 16:08 Sputum Gram Stain - Final 05/27/18 16:08 Sputum Sputum Culture - Final Escherichia Coli 05/26/18 06:30 Urine,[facility] Urine Culture - Final Escherichia Coli 05/21/18 09:10 Blood-Venous Blood Culture - Final NO GROWTH AFTER 5 DAYS 05/21/18 09:10 Blood-Venous Gram Stain - Final TEST NOT PERFORMED 05/20/18 13:00 Blood Blood Culture - Final NO GROWTH AFTER 5 DAYS 05/20/18 13:00 Blood Gram Stain - Final TEST NOT PERFORMED 05/20/18 17:43 Nose MRSA Culture (Admit) - Final MRSA NOT DETECTED 05/20/18 13:34 Urine,[facility]aeza Urine Culture - Final Enterococcus Faecalis Assessment and Plan (1) Altered mental status Status: Acute (2) Decubitus ulcer of sacral area Status: Acute (3) Deep tissue injury Status: Acute (4) Hx of fracture of femur Status: Chronic (5) Seizure disorder Status: Chronic - Assessment and Plan (Free Text) Assessment: A/P 83 year old female with multiple medical conditions icnluding CAD, Dementia, COPD, recent right femur ORIF admitted form [place] for AMS and fever. pt. has been afebrile since admission. mild leukocytosis has resolved. UA- negative, urine cx- E.fecalis ( could eb contaminant ) since the UA from same day negative. repeat UA from [facility] 05/26/2018- Negative urine cx 05/26/2018- ESBL e.coli sputum cx- reported as ESBL e.coli as well Blood cx- neg x 3 repeat cxr reported as improved. urine legionella ag- neg Mycoplasma IGM- negative PLan- advise to monitor aspiration precautions as well. has completed 10 days of IV meropenem. has completed 7 days of IV vancomyicn as well. will sign off the case, please reconsult PRN.
--- NOTE | 2018-06-08 18:09 | CP.PCM.PN ---
Subjective - Date & Time of Evaluation Date of Evaluation: 06/08/18 Time of Evaluation: 11:50 - Subjective Subjective: F/U AMS, PNA no response to verbal/tactil stimuli Objective - Vital Signs/Intake and Output Vital Signs (last 24 hours): Temp Pulse Resp BP Pulse Ox 97.8 F 96 H 20 149/77 96 06/08/18 17:00 06/08/18 17:00 06/08/18 17:00 06/08/18 17:00 06/08/18 17:00 Intake and Output: 06/08/18 06/08/18 06:59 18:59 Intake Total 800 740 Output Total 600 700 Balance 200 40 - Medications Medications: Current Medications Albuterol Sulfate (Albuterol 0.083% Inhal Chantale (2.5 Mg/3 Ml) Ud) 2.5 mg INH RQID [facility] Last Admin: 06/08/18 16:01 Dose: 2.5 mg Albuterol Sulfate (Albuterol 0.083% Inhal Chantale (2.5 Mg/3 Ml) Ud) 2.5 mg INH RQ4 PRN PRN Reason: Shortness of Breath Last Admin: 05/30/18 00:25 Dose: 2.5 mg Dimethicone (Proshield Plus Skin Protectant) 1 applic TOP Q8 [facility] Last Admin: 06/08/18 16:49 Dose: 1 applic Famotidine (Pepcid) 40 mg PO DAILY [facility] Last Admin: 06/08/18 09:31 Dose: 40 mg Furosemide (Lasix) 40 mg IVP DAILY [facility] Last Admin: 06/01/18 08:52 Dose: 40 mg Hydromorphone HCl (Dilaudid) 1 mg IVP Q6 PRN PRN Reason: Pain, severe (8-10) Lactulose (Enulose) 20 gm PO DAILY PRN PRN Reason: Constipation Last Admin: 05/29/18 18:39 Dose: 20 gm Levetiracetam (Keppra) 500 mg PO BID [facility] Last Admin: 06/08/18 16:49 Dose: 500 mg - Labs Labs: 06/08/18 11:50 06/08/18 11:50 PT 12.4 Seconds (9.8-13.1) 06/08/18 11:50 INR 1.1 06/08/18 11:50 APTT 28.6 Seconds (25.6-37.1) 06/08/18 11:50 - Constitutional Appears: Chronically Ill - Head Exam Head Exam: NORMAL INSPECTION - Eye Exam Additional comments: Pupils sluggish reaction to light - ENT Exam Additional comments: NG tube - Neck Exam Neck Exam: Normal Inspection - Respiratory Exam Respiratory Exam: Decreased Breath Sounds (at bases) - Cardiovascular Exam Cardiovascular Exam: REGULAR RHYTHM - GI/Abdominal Exam GI & Abdominal Exam: Soft, Normal Bowel Sounds Additional comments: De La Cruz cath - Extremities Exam Additional comments: 1+ edema b/l hands - Back Exam Additional comments: L-S decubitus stage IV, DTI upper back - Neurological Exam Additional comments: Lethargic, non verbal, unable to follow commands, generalized weakness. - Skin Skin Exam: Warm Assessment and Plan (1) CHF (congestive heart failure) Status: Acute (2) Aspiration pneumonia Status: Acute (3) Sepsis Status: Acute (4) Toxic metabolic encephalopathy Status: Acute (5) Altered mental status Status: Acute (6) UTI (urinary tract infection) Status: Acute (7) Dehydration Status: Resolved (8) Hypernatremia Status: Resolved (9) Decubitus ulcer of sacral area Status: Acute (10) Deep tissue injury Status: Acute (11) Chronic back pain Status: Chronic (12) Hx of fracture of femur Status: Chronic (13) HTN (hypertension) Status: Acute (14) COPD (chronic obstructive pulmonary disease) Status: Chronic (15) Hx of congestive heart failure Status: Chronic (16) Seizure disorder Status: Resolved - Assessment and Plan (Free Text) Plan: IV , Garrett HART, Patient completed IV Tx with Yudy Tucker, ID f/u appreciated, continue rest of Tx, I will call Pt's son in reference to obtain consent or PEG tube or Hospice
[2018-06-09] MEDS: Proshield Plus GEL TOP SCH ×3 (01:00→18:33)
[2018-06-09] MEDS: Albuterol 0.083% Inhal Sol (2.5 mg/3 mL) UD INH SCH ×4 (07:43→20:09)
[2018-06-09] MEDS: levETIRAcetam 100 mg/ml (5ml) Oral Syringe PO SCH ×2 (10:46→18:23)
[2018-06-09] MEDS: Famotidine 40 MG/5 ML PO SCH (10:46)
--- NOTE | 2018-06-09 11:31 | CP.PCM.PN ---
Subjective - Date & Time of Evaluation Date of Evaluation: 06/09/18 Time of Evaluation: 11:00 - Subjective Subjective: no response to verbal/tactil stimuli Objective - Vital Signs/Intake and Output Vital Signs (last 24 hours): Temp Pulse Resp BP Pulse Ox 97.9 F 79 20 141/74 92 L 06/09/18 08:00 06/09/18 08:00 06/09/18 08:00 06/09/18 08:00 06/09/18 08:00 - Medications Medications: Current Medications Albuterol Sulfate (Albuterol 0.083% Inhal Chantale (2.5 Mg/3 Ml) Ud) 2.5 mg INH RQID [facility] Last Admin: 06/09/18 11:22 Dose: 2.5 mg Albuterol Sulfate (Albuterol 0.083% Inhal Chantale (2.5 Mg/3 Ml) Ud) 2.5 mg INH RQ4 PRN PRN Reason: Shortness of Breath Last Admin: 05/30/18 00:25 Dose: 2.5 mg Dimethicone (Proshield Plus Skin Protectant) 1 applic TOP Q8 [facility] Last Admin: 06/09/18 01:00 Dose: 1 applic Famotidine (Pepcid) 40 mg PO DAILY [facility] Last Admin: 06/09/18 10:46 Dose: 40 mg Furosemide (Lasix) 40 mg IVP DAILY [facility] Last Admin: 06/01/18 08:52 Dose: 40 mg Hydromorphone HCl (Dilaudid) 1 mg IVP Q6 PRN PRN Reason: Pain, severe (8-10) Last Admin: 06/09/18 11:24 Dose: 1 mg Lactulose (Enulose) 20 gm PO DAILY PRN PRN Reason: Constipation Last Admin: 05/29/18 18:39 Dose: 20 gm Levetiracetam (Keppra) 500 mg PO BID [facility] Last Admin: 06/09/18 10:46 Dose: 500 mg - Labs Labs: 06/08/18 11:50 06/08/18 11:50 PT 12.4 Seconds (9.8-13.1) 06/08/18 11:50 INR 1.1 06/08/18 11:50 APTT 28.6 Seconds (25.6-37.1) 06/08/18 11:50 - Constitutional Appears: Chronically Ill - Head Exam Head Exam: NORMAL INSPECTION - Eye Exam Additional comments: pupils sluggish reaction to light - ENT Exam Additional comments: NG tube, V Mask - Neck Exam Neck Exam: Normal Inspection - Respiratory Exam Respiratory Exam: Decreased Breath Sounds (at bases) - Cardiovascular Exam Cardiovascular Exam: REGULAR RHYTHM - GI/Abdominal Exam GI & Abdominal Exam: Soft, Normal Bowel Sounds - Extremities Exam Additional comments: trace edema U/E - Back Exam Additional comments: L-S decubitus IV - Neurological Exam Additional comments: no response to verbal/tactil stimuli - Skin Skin Exam: Warm Assessment and Plan (1) CHF (congestive heart failure) Status: Acute (2) Aspiration pneumonia Status: Acute (3) Sepsis Status: Acute (4) Toxic metabolic encephalopathy Status: Acute (5) Altered mental status Status: Acute (6) UTI (urinary tract infection) Status: Acute (7) Dehydration Status: Resolved (8) Hypernatremia Status: Resolved (9) Decubitus ulcer of sacral area Status: Acute (10) Deep tissue injury Status: Acute (11) Chronic back pain Status: Chronic (12) Hx of fracture of femur Status: Chronic (13) HTN (hypertension) Status: Acute (14) COPD (chronic obstructive pulmonary disease) Status: Chronic (15) Hx of congestive heart failure Status: Chronic (16) Seizure disorder Status: Resolved - Assessment and Plan (Free Text) Plan: continue current Tx, discussed with Pt's son by phone NG tube vs Hospice, He would call me with his decision , I will attempt to call him today
--- NOTE | 2018-06-09 19:04 | CP.PCM.PN ---
Subjective - Date & Time of Evaluation Date of Evaluation: 06/09/18 Time of Evaluation: 12:40 - Subjective Subjective: family not agreeing to PEG Objective - Vital Signs/Intake and Output Vital Signs (last 24 hours): Temp Pulse Resp BP Pulse Ox 96.8 F L 86 18 120/66 95 06/09/18 15:34 06/09/18 15:34 06/09/18 15:34 06/09/18 15:34 06/09/18 15:34 - Medications Medications: Current Medications Albuterol Sulfate (Albuterol 0.083% Inhal Chantale (2.5 Mg/3 Ml) Ud) 2.5 mg INH RQID [facility] Last Admin: 06/09/18 16:11 Dose: 2.5 mg Albuterol Sulfate (Albuterol 0.083% Inhal Chantale (2.5 Mg/3 Ml) Ud) 2.5 mg INH RQ4 PRN PRN Reason: Shortness of Breath Last Admin: 05/30/18 00:25 Dose: 2.5 mg Dimethicone (Proshield Plus Skin Protectant) 1 applic TOP Q8 [facility] Last Admin: 06/09/18 18:33 Dose: 1 applic Famotidine (Pepcid) 40 mg PO DAILY [facility] Last Admin: 06/09/18 10:46 Dose: 40 mg Furosemide (Lasix) 40 mg IVP DAILY [facility] Last Admin: 06/01/18 08:52 Dose: 40 mg Hydromorphone HCl (Dilaudid) 1 mg IVP Q6 PRN PRN Reason: Pain, severe (8-10) Last Admin: 06/09/18 11:24 Dose: 1 mg Lactulose (Enulose) 20 gm PO DAILY PRN PRN Reason: Constipation Last Admin: 05/29/18 18:39 Dose: 20 gm Levetiracetam (Keppra) 500 mg PO BID [facility] Last Admin: 06/09/18 18:23 Dose: 500 mg - Labs Labs: 06/08/18 11:50 06/08/18 11:50 PT 12.4 Seconds (9.8-13.1) 06/08/18 11:50 INR 1.1 06/08/18 11:50 APTT 28.6 Seconds (25.6-37.1) 06/08/18 11:50 - Head Exam Head Exam: NORMOCEPHALIC - Neck Exam Neck Exam: Normal Inspection - Respiratory Exam Respiratory Exam: Rhonchi - Cardiovascular Exam Cardiovascular Exam: REGULAR RHYTHM - GI/Abdominal Exam GI & Abdominal Exam: Soft, Normal Bowel Sounds Assessment and Plan - Assessment and Plan (Free Text) Assessment: 83 yo female with dysphagia family not consenting for PEG
[2018-06-10] MEDS: Proshield Plus GEL TOP SCH ×3 (01:18→17:23)
[2018-06-10] MEDS: Albuterol 0.083% Inhal Sol (2.5 mg/3 mL) UD INH SCH ×4 (07:40→19:00)
[2018-06-10] MEDS: levETIRAcetam 100 mg/ml (5ml) Oral Syringe PO SCH ×2 (10:32→17:20)
[2018-06-10] MEDS: Famotidine 40 MG/5 ML PO SCH (10:32)
--- NOTE | 2018-06-10 11:05 | CP.PCM.PN ---
Subjective - Date & Time of Evaluation Date of Evaluation: 06/10/18 Time of Evaluation: 11:04 - Subjective Subjective: no overnight events Objective - Vital Signs/Intake and Output Vital Signs (last 24 hours): Temp Pulse Resp BP Pulse Ox 97.9 F 88 18 126/69 98 06/10/18 08:23 06/10/18 08:23 06/10/18 08:23 06/10/18 08:23 06/10/18 08:23 Intake and Output: 06/10/18 06/10/18 06:59 18:59 Intake Total 1400 Output Total 650 Balance 750 - Medications Medications: Current Medications Albuterol Sulfate (Albuterol 0.083% Inhal Chantale (2.5 Mg/3 Ml) Ud) 2.5 mg INH RQID [facility] Last Admin: 06/10/18 07:40 Dose: 2.5 mg Albuterol Sulfate (Albuterol 0.083% Inhal Chantale (2.5 Mg/3 Ml) Ud) 2.5 mg INH RQ4 PRN PRN Reason: Shortness of Breath Last Admin: 05/30/18 00:25 Dose: 2.5 mg Dimethicone (Proshield Plus Skin Protectant) 1 applic TOP Q8 [facility] Last Admin: 06/10/18 10:32 Dose: 1 applic Famotidine (Pepcid) 40 mg PO DAILY [facility] Last Admin: 06/10/18 10:32 Dose: 40 mg Furosemide (Lasix) 40 mg IVP DAILY [facility] Last Admin: 06/01/18 08:52 Dose: 40 mg Hydromorphone HCl (Dilaudid) 1 mg IVP Q6 PRN PRN Reason: Pain, severe (8-10) Last Admin: 06/10/18 01:49 Dose: 1 mg Lactulose (Enulose) 20 gm PO DAILY PRN PRN Reason: Constipation Last Admin: 05/29/18 18:39 Dose: 20 gm Levetiracetam (Keppra) 500 mg PO BID [facility] Last Admin: 06/10/18 10:32 Dose: 500 mg - Labs Labs: 06/08/18 11:50 06/08/18 11:50 PT 12.4 Seconds (9.8-13.1) 06/08/18 11:50 INR 1.1 06/08/18 11:50 APTT 28.6 Seconds (25.6-37.1) 06/08/18 11:50 - Head Exam Head Exam: NORMOCEPHALIC - Neck Exam Neck Exam: Normal Inspection - Respiratory Exam Respiratory Exam: Rhonchi, NORMAL BREATHING PATTERN - Cardiovascular Exam Cardiovascular Exam: REGULAR RHYTHM - GI/Abdominal Exam GI & Abdominal Exam: Soft, Normal Bowel Sounds Assessment and Plan - Assessment and Plan (Free Text) Assessment: 83 yo female with dysphagia goals of care tube feeds
[2018-06-11] MEDS: Proshield Plus GEL TOP SCH ×2 (00:41→08:27)
[2018-06-11] MEDS: Albuterol 0.083% Inhal Sol (2.5 mg/3 mL) UD INH SCH ×4 (07:16→19:02)
[2018-06-11] MEDS: Famotidine 40 MG/5 ML PO SCH (08:26)
[2018-06-11] MEDS: levETIRAcetam 100 mg/ml (5ml) Oral Syringe PO SCH (08:26)
--- NOTE | 2018-06-11 17:21 | CP.PCM.PN ---
Subjective - Date & Time of Evaluation Date of Evaluation: 06/11/18 Time of Evaluation: 13:20 - Subjective Subjective: F/U AMS. PNA No response to verbal or tactile stimuli. Objective - Vital Signs/Intake and Output Vital Signs (last 24 hours): Temp Pulse Resp BP Pulse Ox 98 F 69 20 132/62 99 06/11/18 16:33 06/11/18 16:33 06/11/18 16:33 06/11/18 16:33 06/11/18 16:33 - Medications Medications: Current Medications Albuterol Sulfate (Albuterol 0.083% Inhal Chantale (2.5 Mg/3 Ml) Ud) 2.5 mg INH RQID [facility] Last Admin: 06/11/18 15:13 Dose: 2.5 mg Albuterol Sulfate (Albuterol 0.083% Inhal Chantale (2.5 Mg/3 Ml) Ud) 2.5 mg INH RQ4 PRN PRN Reason: Shortness of Breath Last Admin: 05/30/18 00:25 Dose: 2.5 mg Dimethicone (Proshield Plus Skin Protectant) 1 applic TOP Q8 [facility] Last Admin: 06/11/18 08:27 Dose: 1 applic Famotidine (Pepcid) 40 mg PO DAILY [facility] Last Admin: 06/11/18 08:26 Dose: 40 mg Furosemide (Lasix) 40 mg IVP DAILY [facility] Last Admin: 06/01/18 08:52 Dose: 40 mg Lactulose (Enulose) 20 gm PO DAILY PRN PRN Reason: Constipation Last Admin: 05/29/18 18:39 Dose: 20 gm Levetiracetam (Keppra) 500 mg PO BID [facility] Last Admin: 06/11/18 08:26 Dose: 500 mg - Labs Labs: 06/08/18 11:50 06/08/18 11:50 PT 12.4 Seconds (9.8-13.1) 06/08/18 11:50 INR 1.1 06/08/18 11:50 APTT 28.6 Seconds (25.6-37.1) 06/08/18 11:50 - Constitutional Appears: Chronically Ill - Head Exam Head Exam: NORMAL INSPECTION - Eye Exam Additional comments: Pupils sluggish reaction to light - ENT Exam Additional comments: NG tube - Neck Exam Neck Exam: Normal Inspection - Respiratory Exam Respiratory Exam: Decreased Breath Sounds (at bases) - Cardiovascular Exam Cardiovascular Exam: REGULAR RHYTHM - GI/Abdominal Exam GI & Abdominal Exam: Soft, Normal Bowel Sounds - Exam Additional comments: De La Cruz cath - Extremities Exam Additional comments: Edema hands b/l - Back Exam Additional comments: L-S decubitus stage IV. DTI upper back - Neurological Exam Additional comments: no response to verbal or tactile stimuli, generalized weakness - Skin Skin Exam: Warm Assessment and Plan (1) CHF (congestive heart failure) Status: Acute (2) Aspiration pneumonia Status: Acute (3) Sepsis Status: Acute (4) Toxic metabolic encephalopathy Status: Acute (5) Altered mental status Status: Acute (6) UTI (urinary tract infection) Status: Acute (7) Dehydration Status: Resolved (8) Hypernatremia Status: Resolved (9) Decubitus ulcer of sacral area Status: Acute (10) Deep tissue injury Status: Acute (11) Chronic back pain Status: Chronic (12) Hx of fracture of femur Status: Chronic (13) HTN (hypertension) Status: Acute (14) COPD (chronic obstructive pulmonary disease) Status: Chronic (15) Hx of congestive heart failure Status: Chronic (16) Seizure disorder Status: Resolved - Assessment and Plan (Free Text) Plan: Pt's family refused Peg tube, f/u with SS.
[2018-06-12] MEDS: Proshield Plus GEL TOP SCH ×3 (06:58→17:04)
[2018-06-12] MEDS: Albuterol 0.083% Inhal Sol (2.5 mg/3 mL) UD INH SCH ×4 (07:58→19:36)
[2018-06-12] MEDS: levETIRAcetam 100 mg/ml (5ml) Oral Syringe PO SCH ×2 (09:07→16:55)
[2018-06-12] MEDS: Famotidine 40 MG/5 ML PO SCH (09:08)
--- NOTE | 2018-06-12 12:54 | CP.PCM.PN ---
Subjective - Date & Time of Evaluation Date of Evaluation: 06/12/18 Time of Evaluation: 10:40 - Subjective Subjective: F/U AMS, PNA no response to verbal/tactil stimuli Objective - Vital Signs/Intake and Output Vital Signs (last 24 hours): Temp Pulse Resp BP Pulse Ox 98.5 F 90 20 160/75 H 98 06/12/18 08:38 06/12/18 08:38 06/12/18 08:38 06/12/18 08:38 06/12/18 08:38 - Medications Medications: Current Medications Albuterol Sulfate (Albuterol 0.083% Inhal Chantale (2.5 Mg/3 Ml) Ud) 2.5 mg INH RQID [facility] Last Admin: 06/12/18 11:17 Dose: 2.5 mg Albuterol Sulfate (Albuterol 0.083% Inhal Chantale (2.5 Mg/3 Ml) Ud) 2.5 mg INH RQ4 PRN PRN Reason: Shortness of Breath Last Admin: 05/30/18 00:25 Dose: 2.5 mg Dimethicone (Proshield Plus Skin Protectant) 1 applic TOP Q8 [facility] Last Admin: 06/12/18 09:29 Dose: 1 applic Famotidine (Pepcid) 40 mg PO DAILY [facility] Last Admin: 06/12/18 09:08 Dose: 40 mg Furosemide (Lasix) 40 mg IVP DAILY [facility] Last Admin: 06/01/18 08:52 Dose: 40 mg Lactulose (Enulose) 20 gm PO DAILY PRN PRN Reason: Constipation Last Admin: 05/29/18 18:39 Dose: 20 gm Levetiracetam (Keppra) 500 mg PO BID [facility] Last Admin: 06/12/18 09:07 Dose: 500 mg - Labs Labs: 06/08/18 11:50 06/08/18 11:50 PT 12.4 Seconds (9.8-13.1) 06/08/18 11:50 INR 1.1 06/08/18 11:50 APTT 28.6 Seconds (25.6-37.1) 06/08/18 11:50 - Constitutional Appears: Chronically Ill - Head Exam Head Exam: NORMAL INSPECTION - Eye Exam Additional comments: Pupils sluggish reaction to light - ENT Exam Additional comments: NGT - Neck Exam Neck Exam: Normal Inspection - Respiratory Exam Respiratory Exam: Decreased Breath Sounds (at bases) - Cardiovascular Exam Cardiovascular Exam: REGULAR RHYTHM - GI/Abdominal Exam GI & Abdominal Exam: Soft, Normal Bowel Sounds - Extremities Exam Extremities Exam: Normal Inspection - Back Exam Additional comments: L-S decubitus stage IV. DTI upper back - Neurological Exam Additional comments: No response to tactile or verbal stimuli, generalized weakness. - Skin Skin Exam: Warm Assessment and Plan (1) CHF (congestive heart failure) Status: Acute (2) Aspiration pneumonia Status: Acute (3) Sepsis Status: Acute (4) Toxic metabolic encephalopathy Status: Acute (5) Altered mental status Status: Acute (6) UTI (urinary tract infection) Status: Acute (7) Dehydration Status: Resolved (8) Hypernatremia Status: Resolved (9) Decubitus ulcer of sacral area Status: Acute (10) Deep tissue injury Status: Acute (11) Chronic back pain Status: Chronic (12) Hx of fracture of femur Status: Chronic (13) HTN (hypertension) Status: Acute (14) COPD (chronic obstructive pulmonary disease) Status: Chronic (15) Hx of congestive heart failure Status: Chronic (16) Seizure disorder Status: Resolved - Assessment and Plan (Free Text) Plan: continue DuoNeb, Keppra ,Lasix, Proshield and rest of Tx
[2018-06-13] MEDS: Proshield Plus GEL TOP SCH ×3 (02:00→16:45)
[2018-06-13] MEDS: Albuterol 0.083% Inhal Sol (2.5 mg/3 mL) UD INH SCH ×4 (07:50→19:09)
[2018-06-13] MEDS: Famotidine 40 MG/5 ML PO SCH (08:50)
[2018-06-13] MEDS: levETIRAcetam 100 mg/ml (5ml) Oral Syringe PO SCH ×2 (08:50→16:45)
--- NOTE | 2018-06-13 09:01 | CP.PCM.PN ---
Subjective - Date & Time of Evaluation Date of Evaluation: 06/12/18 Time of Evaluation: 14:00 - Subjective Subjective: no overnight events Objective - Vital Signs/Intake and Output Vital Signs (last 24 hours): Temp Pulse Resp BP Pulse Ox 100.3 F H 74 20 142/68 97 06/13/18 08:21 06/13/18 08:21 06/13/18 08:21 06/13/18 08:21 06/13/18 08:21 - Medications Medications: Current Medications Acetaminophen (Tylenol 650 Mg Supp) 650 mg [place] Q6 PRN PRN Reason: Fever >100.4 F Last Admin: 06/13/18 08:51 Dose: 650 mg Albuterol Sulfate (Albuterol 0.083% Inhal Chantale (2.5 Mg/3 Ml) Ud) 2.5 mg INH RQID [facility] Last Admin: 06/13/18 07:50 Dose: 2.5 mg Albuterol Sulfate (Albuterol 0.083% Inhal Chantale (2.5 Mg/3 Ml) Ud) 2.5 mg INH RQ4 PRN PRN Reason: Shortness of Breath Last Admin: 05/30/18 00:25 Dose: 2.5 mg Dimethicone (Proshield Plus Skin Protectant) 1 applic TOP Q8 [facility] Last Admin: 06/13/18 08:51 Dose: 1 applic Famotidine (Pepcid) 40 mg PO DAILY [facility] Last Admin: 06/13/18 08:50 Dose: 40 mg Furosemide (Lasix) 40 mg IVP DAILY [facility] Last Admin: 06/01/18 08:52 Dose: 40 mg Lactulose (Enulose) 20 gm PO DAILY PRN PRN Reason: Constipation Last Admin: 05/29/18 18:39 Dose: 20 gm Levetiracetam (Keppra) 500 mg PO BID [facility] Last Admin: 06/13/18 08:50 Dose: 500 mg - Labs Labs: 06/08/18 11:50 06/08/18 11:50 PT 12.4 Seconds (9.8-13.1) 06/08/18 11:50 INR 1.1 06/08/18 11:50 APTT 28.6 Seconds (25.6-37.1) 06/08/18 11:50 - Head Exam Head Exam: NORMOCEPHALIC - Neck Exam Neck Exam: Normal Inspection - Respiratory Exam Respiratory Exam: Rhonchi - Cardiovascular Exam Cardiovascular Exam: REGULAR RHYTHM - GI/Abdominal Exam GI & Abdominal Exam: Soft, Normal Bowel Sounds Assessment and Plan - Assessment and Plan (Free Text) Assessment: 83 yo female with dysphagia goals of care TF
--- NOTE | 2018-06-13 14:27 | CP.PCM.PN ---
Subjective - Date & Time of Evaluation Date of Evaluation: 06/13/18 Time of Evaluation: 12:55 - Subjective Subjective: F/U AMS. PNA no response to tactil/verbal stimuli Objective - Vital Signs/Intake and Output Vital Signs (last 24 hours): Temp Pulse Resp BP Pulse Ox 100.3 F H 74 20 142/68 97 06/13/18 08:21 06/13/18 08:21 06/13/18 08:21 06/13/18 08:21 06/13/18 08:21 - Medications Medications: Current Medications Acetaminophen (Tylenol 650 Mg Supp) 650 mg [place] Q6 PRN PRN Reason: Fever >100.4 F Last Admin: 06/13/18 08:51 Dose: 650 mg Albuterol Sulfate (Albuterol 0.083% Inhal Chantale (2.5 Mg/3 Ml) Ud) 2.5 mg INH RQID [facility] Last Admin: 06/13/18 11:17 Dose: 2.5 mg Albuterol Sulfate (Albuterol 0.083% Inhal Chantale (2.5 Mg/3 Ml) Ud) 2.5 mg INH RQ4 PRN PRN Reason: Shortness of Breath Last Admin: 05/30/18 00:25 Dose: 2.5 mg Dimethicone (Proshield Plus Skin Protectant) 1 applic TOP Q8 [facility] Last Admin: 06/13/18 08:51 Dose: 1 applic Famotidine (Pepcid) 40 mg PO DAILY [facility] Last Admin: 06/13/18 08:50 Dose: 40 mg Furosemide (Lasix) 40 mg IVP DAILY [facility] Last Admin: 06/01/18 08:52 Dose: 40 mg Lactulose (Enulose) 20 gm PO DAILY PRN PRN Reason: Constipation Last Admin: 05/29/18 18:39 Dose: 20 gm Levetiracetam (Keppra) 500 mg PO BID [facility] Last Admin: 06/13/18 08:50 Dose: 500 mg - Labs Labs: 06/08/18 11:50 06/08/18 11:50 PT 12.4 Seconds (9.8-13.1) 06/08/18 11:50 INR 1.1 06/08/18 11:50 APTT 28.6 Seconds (25.6-37.1) 06/08/18 11:50 - Constitutional Appears: Chronically Ill - Head Exam Head Exam: NORMAL INSPECTION - Eye Exam Additional comments: Pupils sluggish reaction to light - ENT Exam ENT Exam: Normal Exam - Neck Exam Neck Exam: Normal Inspection - Respiratory Exam Respiratory Exam: Decreased Breath Sounds (at bases) - Cardiovascular Exam Cardiovascular Exam: REGULAR RHYTHM - GI/Abdominal Exam GI & Abdominal Exam: Soft, Normal Bowel Sounds - Back Exam Additional comments: L-S decubitus ulcer stage IV. DTI upper back - Neurological Exam Additional comments: No response to tactile or verbal stimuli, generalized weakness - Skin Skin Exam: Warm - Additional Findings Additional findings: continue current Tx, Patient's son is not sure if Patient should have PEG tube and transfer to [facility] Assessment and Plan (1) CHF (congestive heart failure) Status: Acute (2) Aspiration pneumonia Status: Acute (3) Sepsis Status: Acute (4) Toxic metabolic encephalopathy Status: Acute (5) Altered mental status Status: Acute (6) UTI (urinary tract infection) Status: Acute (7) Dehydration Status: Resolved (8) Hypernatremia Status: Resolved (9) Decubitus ulcer of sacral area Status: Acute (10) Deep tissue injury Status: Acute (11) Chronic back pain Status: Chronic (12) Hx of fracture of femur Status: Chronic (13) HTN (hypertension) Status: Acute (14) COPD (chronic obstructive pulmonary disease) Status: Chronic (15) Hx of congestive heart failure Status: Chronic (16) Seizure disorder Status: Resolved
[2018-06-13] MEDS: Dextrose 5%/0.45% NS 1,000 ML IV SCH (18:19)
[2018-06-13 19:01] LABS: HEMOGLOBIN 10.2 g/dL (12.0-16.0); MEAN CELL VOLUME 89.7 fl (81.0-99.0); MEAN CORPUSCULAR HEMOGLOBIN 28.8 pg (27.0-31.0); RBC 3.53 Mil/uL (3.80-5.20); RED CELL DISTRIBUTION WIDTH 18.2 % (11.5-14.5); WHITE BLOOD COUNT 9.6 K/uL (4.8-10.8)
[2018-06-13 19:20] LABS: ALB/GLOB RATIO 0.8 (1.0-2.1); ALT/SGPT 25 U/L (9-52); AST/SGOT 23 U/L (14-36); BLOOD UREA NITROGEN 20 mg/dl (7-17); CALCIUM 8.9 mg/dL (8.4-10.2); GFR NON-AFRICAN AMERICAN > 60
[2018-06-13] MEDS: Sodium Chloride 0.9% 1,000 ML IV SCH (22:11)
[2018-06-14] MEDS: Proshield Plus GEL TOP SCH ×3 (01:55→16:29)
[2018-06-14] MEDS: Dextrose 5%/0.45% NS 1,000 ML IV SCH ×2 (04:15→14:03)
[2018-06-14] MEDS: Albuterol 0.083% Inhal Sol (2.5 mg/3 mL) UD INH SCH ×4 (08:00→19:30)
[2018-06-14] MEDS: Famotidine 40 MG/5 ML PO SCH (09:25)
[2018-06-14] MEDS: levETIRAcetam 100 mg/ml (5ml) Oral Syringe PO SCH ×2 (09:25→16:30)
--- NOTE | 2018-06-14 10:54 | CP.PCM.PN ---
Subjective - Date & Time of Evaluation Date of Evaluation: 06/14/18 Time of Evaluation: 10:54 - Subjective Subjective: ID Note- Pt. seen and examined as per Dr.Pinal turner because she spiked temp today. as per nurse no new events and they are awaiting pt's son's decision regarding peg placement. Objective - Vital Signs/Intake and Output Vital Signs (last 24 hours): Temp Pulse Resp BP Pulse Ox 97.8 F 105 H 20 146/72 99 06/14/18 08:32 06/14/18 08:32 06/14/18 08:32 06/14/18 08:32 06/14/18 08:32 - Medications Medications: Current Medications Acetaminophen (Tylenol 650 Mg Supp) 650 mg MN Q6 PRN PRN Reason: Fever >100.4 F Last Admin: 06/13/18 16:39 Dose: 650 mg Albuterol Sulfate (Albuterol 0.083% Inhal Chantale (2.5 Mg/3 Ml) Ud) 2.5 mg INH RQID [facility] Last Admin: 06/14/18 08:00 Dose: 2.5 mg Albuterol Sulfate (Albuterol 0.083% Inhal Chantale (2.5 Mg/3 Ml) Ud) 2.5 mg INH RQ4 PRN PRN Reason: Shortness of Breath Last Admin: 05/30/18 00:25 Dose: 2.5 mg Dimethicone (Proshield Plus Skin Protectant) 1 applic TOP Q8 [facility] Last Admin: 06/14/18 09:26 Dose: 1 applic Famotidine (Pepcid) 40 mg PO DAILY [facility] Last Admin: 06/14/18 09:25 Dose: 40 mg Furosemide (Lasix) 40 mg IVP DAILY [facility] Last Admin: 06/01/18 08:52 Dose: 40 mg Hydromorphone HCl (Dilaudid) 1 mg IVP Q6 PRN PRN Reason: Pain, severe (8-10) Dextrose/Sodium Chloride (Dextrose 5%/0.45% Ns 1000 Ml) 1,000 mls @ 100 mls/hr IV .Q10H [facility] Stop: 06/14/18 18:01 Last Admin: 06/14/18 04:15 Dose: Not Given Sodium Chloride (Sodium Chloride 0.9%) 1,000 mls @ 70 mls/hr IV .[id number] [facility] Stop: 06/14/18 21:09 Last Admin: 06/13/18 22:11 Dose: 70 mls/hr Lactulose (Enulose) 20 gm PO DAILY PRN PRN Reason: Constipation Last Admin: 05/29/18 18:39 Dose: 20 gm Levetiracetam (Keppra) 500 mg PO BID [facility] Last Admin: 06/14/18 09:25 Dose: 500 mg - Labs Labs: - Additional Findings Additional findings: - Constitutional Appears: Chronically Ill Additional comments: nonverbal, - Head Exam Head Exam: ATRAUMATIC - ENT Exam Additional comments: dry oral mucosa - Neck Exam Neck exam: Positive for: Full Rom - Respiratory Exam Additional comments: no wheezing - Cardiovascular Exam Cardiovascular Exam: RRR, +S1, +S2 - GI/Abdominal Exam GI & Abdominal Exam: Normal Bowel Sounds, Soft Additional comments: NT, ND - Extremities Exam Additional comments: right femur surgical site clean/dry/Intact no erythema has left great toe small ulcer at the tip , no discharge, no open wound - Neurological Exam Neurological exam: baseline does not answer questions - Skin Additional comments: mid sacral stage 4 decub, no discharge mid upper back 2 smaller ulcerations one stage 2 with other one stage 1 lines- right groin TLC Laboratory Results - last 72 hr 06/13/18 06/13/18 18:36 18:36 WBC 9.6 RBC 3.53 L Hgb 10.2 L Hct 31.7 L MCV 89.7 MCH 28.8 MCHC 32.0 L RDW 18.2 H Plt Count 214 Sodium 136 Potassium 3.8 Chloride 90 L Carbon Dioxide 39 H Anion Gap 11 BUN 20 H Creatinine 0.2 L Est GFR ( Amer) > 60 Est GFR (Non-Af Amer) > 60 Random Glucose 184 H Calcium 8.9 Total Bilirubin 0.9 AST 23 ALT 25 Alkaline Phosphatase 117 Total Protein 6.6 Albumin 3.0 L Globulin 3.6 Albumin/Globulin Ratio 0.8 L Microbiology 06/13/18 18:46 Blood Blood Culture - Preliminary NO GROWTH AFTER 24 HOURS 06/13/18 18:36 Blood Blood Culture - Preliminary NO GROWTH AFTER 24 HOURS 06/04/18 17:25 Naris MRSA Culture (Admit) - Final MRSA NOT DETECTED 05/25/18 16:35 Blood-Venous Blood Culture - Final NO GROWTH AFTER 5 DAYS 05/25/18 16:35 Blood-Venous Gram Stain - Final TEST NOT PERFORMED 05/25/18 16:25 Blood-Venous Blood Culture - Final NO GROWTH AFTER 5 DAYS 05/25/18 16:25 Blood-Venous Gram Stain - Final TEST NOT PERFORMED 05/27/18 16:08 Sputum Gram Stain - Final 05/27/18 16:08 Sputum Sputum Culture - Final Escherichia Coli 05/26/18 06:30 Urine,[place] Urine Culture - Final Escherichia Coli 05/21/18 09:10 Blood-Venous Blood Culture - Final NO GROWTH AFTER 5 DAYS 05/21/18 09:10 Blood-Venous Gram Stain - Final TEST NOT PERFORMED 05/20/18 13:00 Blood Blood Culture - Final NO GROWTH AFTER 5 DAYS 05/20/18 13:00 Blood Gram Stain - Final TEST NOT PERFORMED 05/20/18 17:43 Nose MRSA Culture (Admit) - Final MRSA NOT DETECTED 05/20/18 13:34 Urine,[place] Urine Culture - Final Enterococcus Faecalis Assessment and Plan (1) Altered mental status Status: Acute (2) Decubitus ulcer of sacral area Status: Acute (3) Deep tissue injury Status: Acute (4) Hx of fracture of femur Status: Chronic (5) Seizure disorder Status: Resolved - Assessment and Plan (Free Text) Assessment: A/P 83 year old female with multiple medical conditions icnluding CAD, Dementia, COPD, recent right femur ORIF admitted form [place] for AMS and fever. was treated for E.COli pneumonia with IV meropnem for 10 days and had been afebrile but now has new onset fever. new onset fever mild leukocytosis had resolved. urine cx 05/26/2018- ESBL e.coli sputum cx- reported as ESBL e.coli as well Blood cx- neg x 5 repeat cxr reported as improved. urine legionella ag- neg Mycoplasma IGM- negative PLan- in light of new fever advise to check 2 blood cx one from TLC . advise to remove femoral TLC. check CXR. advise to monitor aspiration precautions as well. has completed 10 days of IV meropenem. has completed 7 days of IV vancomyicn as well. hold off on abx pending above results.
--- NOTE | 2018-06-14 10:55 | RAD ---
Date of service: 06/13/2018 HISTORY: fever COMPARISON: 05/31/2018 FINDINGS: LUNGS: Interval diffuse patchy airspace opacities with tiny coalescing lucencies and/or cystic change. The patchy interstitial and airspace vague opacity in the left hemithorax most pronounced in the left upper lung zone is similar PLEURA: No significant pleural effusion identified, no pneumothorax apparent. CARDIOVASCULAR: No aortic atherosclerotic calcification present. Mild cardiomegaly probable concomitant pulmonary vascular congestion. OSSEOUS STRUCTURES: Right shoulder arthrosis.. Thoracic spine difficult to visualize-prior CT abdomen and pelvic multiple thoracic and lumbar fractures are not visualized adequately to appreciate on this exam.-scoliosis noted.. VISUALIZED UPPER ABDOMEN: Nasogastric tube inserted tip retrograde correlating pointing towards gastric cardia. OTHER FINDINGS: None. IMPRESSION: Interval worsening coalescent infiltrates throughout right lung. Concomitant bronchiectasis suspect. Overall left lung appearance similar. Cardiomegaly with probable pulmonary venous congestion. No significant appearing pleural effusions. NG tube tip in gastric cardia.
--- NOTE | 2018-06-14 12:33 | CP.PCM.PN ---
Subjective - Date & Time of Evaluation Date of Evaluation: 06/13/18 Time of Evaluation: 09:00 - Subjective Subjective: no overnight events Objective - Vital Signs/Intake and Output Vital Signs (last 24 hours): Temp Pulse Resp BP Pulse Ox 97.8 F 105 H 20 146/72 99 06/14/18 08:32 06/14/18 08:32 06/14/18 08:32 06/14/18 08:32 06/14/18 08:32 - Medications Medications: Current Medications Acetaminophen (Tylenol 650 Mg Supp) 650 mg CO Q6 PRN PRN Reason: Fever >100.4 F Last Admin: 06/13/18 16:39 Dose: 650 mg Albuterol Sulfate (Albuterol 0.083% Inhal Chantale (2.5 Mg/3 Ml) Ud) 2.5 mg INH RQID [facility] Last Admin: 06/14/18 11:08 Dose: 2.5 mg Albuterol Sulfate (Albuterol 0.083% Inhal Chantale (2.5 Mg/3 Ml) Ud) 2.5 mg INH RQ4 PRN PRN Reason: Shortness of Breath Last Admin: 05/30/18 00:25 Dose: 2.5 mg Dimethicone (Proshield Plus Skin Protectant) 1 applic TOP Q8 [facility] Last Admin: 06/14/18 09:26 Dose: 1 applic Famotidine (Pepcid) 40 mg PO DAILY [facility] Last Admin: 06/14/18 09:25 Dose: 40 mg Furosemide (Lasix) 40 mg IVP DAILY [facility] Last Admin: 06/01/18 08:52 Dose: 40 mg Hydromorphone HCl (Dilaudid) 1 mg IVP Q6 PRN PRN Reason: Pain, severe (8-10) Dextrose/Sodium Chloride (Dextrose 5%/0.45% Ns 1000 Ml) 1,000 mls @ 100 mls/hr IV .Q10H [facility] Stop: 06/14/18 18:01 Last Admin: 06/14/18 04:15 Dose: Not Given Sodium Chloride (Sodium Chloride 0.9%) 1,000 mls @ 70 mls/hr IV .[id number] [facility] Stop: 06/14/18 21:09 Last Admin: 06/13/18 22:11 Dose: 70 mls/hr Lactulose (Enulose) 20 gm PO DAILY PRN PRN Reason: Constipation Last Admin: 05/29/18 18:39 Dose: 20 gm Levetiracetam (Keppra) 500 mg PO BID [facility] Last Admin: 06/14/18 09:25 Dose: 500 mg - Labs Labs: 06/13/18 18:36 06/13/18 18:36 PT 12.4 Seconds (9.8-13.1) 06/08/18 11:50 INR 1.1 06/08/18 11:50 APTT 28.6 Seconds (25.6-37.1) 06/08/18 11:50 - Respiratory Exam Respiratory Exam: Rhonchi, NORMAL BREATHING PATTERN - Cardiovascular Exam Cardiovascular Exam: REGULAR RHYTHM - GI/Abdominal Exam GI & Abdominal Exam: Soft, Normal Bowel Sounds Assessment and Plan - Assessment and Plan (Free Text) Assessment: 83 yo female with dysphagia goals of care with family to be discussed
[2018-06-14] MEDS: Sodium Chloride 0.9% 1,000 ML IV SCH (14:04)
--- NOTE | 2018-06-14 16:28 | CP.PCM.PN ---
Subjective - Date & Time of Evaluation Date of Evaluation: 06/14/18 Time of Evaluation: 14:30 - Subjective Subjective: F/U AMS. PNA no response to verbal/tactil stinuli Objective - Vital Signs/Intake and Output Vital Signs (last 24 hours): Temp Pulse Resp BP Pulse Ox 97.8 F 105 H 20 146/72 99 06/14/18 08:32 06/14/18 08:32 06/14/18 08:32 06/14/18 08:32 06/14/18 08:32 - Medications Medications: Current Medications Acetaminophen (Tylenol 650 Mg Supp) 650 mg MN Q6 PRN PRN Reason: Fever >100.4 F Last Admin: 06/13/18 16:39 Dose: 650 mg Albuterol Sulfate (Albuterol 0.083% Inhal Chantale (2.5 Mg/3 Ml) Ud) 2.5 mg INH RQID [facility] Last Admin: 06/14/18 15:32 Dose: 2.5 mg Albuterol Sulfate (Albuterol 0.083% Inhal Chantale (2.5 Mg/3 Ml) Ud) 2.5 mg INH RQ4 PRN PRN Reason: Shortness of Breath Last Admin: 05/30/18 00:25 Dose: 2.5 mg Dimethicone (Proshield Plus Skin Protectant) 1 applic TOP Q8 [facility] Last Admin: 06/14/18 09:26 Dose: 1 applic Famotidine (Pepcid) 40 mg PO DAILY [facility] Last Admin: 06/14/18 09:25 Dose: 40 mg Furosemide (Lasix) 40 mg IVP DAILY [facility] Last Admin: 06/01/18 08:52 Dose: 40 mg Hydromorphone HCl (Dilaudid) 1 mg IVP Q6 PRN PRN Reason: Pain, severe (8-10) Dextrose/Sodium Chloride (Dextrose 5%/0.45% Ns 1000 Ml) 1,000 mls @ 100 mls/hr IV .Q10H [facility] Stop: 06/14/18 18:01 Last Admin: 06/14/18 14:03 Dose: 100 mls/hr Sodium Chloride (Sodium Chloride 0.9%) 1,000 mls @ 70 mls/hr IV .[id number] [facility] Stop: 06/14/18 21:09 Last Admin: 02/13/19 14:04 Dose: Not Given Lactulose (Enulose) 20 gm PO DAILY PRN PRN Reason: Constipation Last Admin: 05/29/18 18:39 Dose: 20 gm Levetiracetam (Keppra) 500 mg PO BID [facility] Last Admin: 06/14/18 09:25 Dose: 500 mg - Labs Labs: 06/13/18 18:36 06/13/18 18:36 PT 12.4 Seconds (9.8-13.1) 06/08/18 11:50 INR 1.1 06/08/18 11:50 APTT 28.6 Seconds (25.6-37.1) 06/08/18 11:50 - Constitutional Appears: Chronically Ill - Head Exam Head Exam: NORMAL INSPECTION - Eye Exam Additional comments: Pupils sluggish reaction to light - ENT Exam ENT Exam: Normal Exam - Neck Exam Neck Exam: Normal Inspection - Respiratory Exam Respiratory Exam: Decreased Breath Sounds (at bases) - Cardiovascular Exam Cardiovascular Exam: REGULAR RHYTHM - GI/Abdominal Exam GI & Abdominal Exam: Soft, Normal Bowel Sounds - Extremities Exam Extremities Exam: Normal Inspection - Back Exam Additional comments: L-S decubitus ulcer stage IV. DTI upper back - Neurological Exam Neurological Exam: Awake Additional comments: No response to tactile or verbal stimuli, generalized weakness. - Skin Skin Exam: Warm Assessment and Plan (1) CHF (congestive heart failure) Status: Acute (2) Aspiration pneumonia Status: Acute (3) Sepsis Status: Acute (4) Toxic metabolic encephalopathy Status: Acute (5) Altered mental status Status: Acute (6) UTI (urinary tract infection) Status: Acute (7) Dehydration Status: Resolved (8) Hypernatremia Status: Resolved (9) Decubitus ulcer of sacral area Status: Acute (10) Deep tissue injury Status: Acute (11) Chronic back pain Status: Chronic (12) Hx of fracture of femur Status: Chronic (13) HTN (hypertension) Status: Acute (14) COPD (chronic obstructive pulmonary disease) Status: Chronic (15) Hx of congestive heart failure Status: Chronic (16) Seizure disorder Status: Resolved - Assessment and Plan (Free Text) Plan: Patient spiked Fever, ID f/u appreciated, antibiotics on hold , for removal TLC femoral, f/u CXR
[2018-06-15 00:25] LABS: SQUAMOUS EPITHIAL 3 /hpf (0-5); URINE BILIRUBIN NEGATIVE (NEGATIVE); URINE BLOOD NEGATIVE (NEGATIVE); URINE CLARITY SLIGHTY-CLOUDY (Clear); URINE COLOR YELLOW (YELLOW); URINE GLUCOSE (UA) NEG (NEGATIVE); URINE LEUKOCYTE ESTERASE NEG Leu/uL (Negative); URINE PROTEIN 30 mg/dL (NEGATIVE)
[2018-06-15] MEDS: Proshield Plus GEL TOP SCH ×3 (01:00→16:53)
[2018-06-15] MEDS: HYDROmorphone 0.5 mg/0.5 ml ISec IVP PRN ×2 (01:35→17:24)
[2018-06-15] MEDS: Albuterol 0.083% Inhal Sol (2.5 mg/3 mL) UD INH SCH ×4 (07:05→19:02)
[2018-06-15] MEDS: levETIRAcetam 100 mg/ml (5ml) Oral Syringe PO SCH ×2 (09:46→16:53)
[2018-06-15] MEDS: Famotidine 40 MG/5 ML PO SCH (09:46)
--- NOTE | 2018-06-15 11:03 | RAD ---
Date of service: 06/14/2018 PROCEDURE: CHEST RADIOGRAPH, 1 VIEW HISTORY: fever COMPARISON: 06/13/2018 FINDINGS: LUNGS: Limited evaluation due to oblique positioning and poor inspiratory effort. Extensive diffuse right-sided infiltrate has significantly resolved compared to the prior examination. There is residual dense opacity in the upper right ej thorax, however. No definite left-sided infiltrate is PLEURA: Identified. CARDIOVASCULAR: Grossly normal. Limited evaluation. Nasogastric tube extends to the left upper quadrant of the abdomen as on previous examination. OSSEOUS STRUCTURES: No significant abnormalities. VISUALIZED UPPER ABDOMEN: Normal. OTHER FINDINGS: None. IMPRESSION: Limited examination. There is residual consolidation in the upper right lung.
--- NOTE | 2018-06-15 13:57 | CP.PCM.PN ---
Subjective - Date & Time of Evaluation Date of Evaluation: 06/15/18 Time of Evaluation: 11:55 - Subjective Subjective: F/U AMS. PNA no response to verbal/tactil stimuli, afebril Objective - Vital Signs/Intake and Output Vital Signs (last 24 hours): Temp Pulse Resp BP Pulse Ox 97.6 F 82 20 118/71 99 06/15/18 08:10 06/15/18 08:10 06/15/18 08:10 06/15/18 08:10 06/15/18 08:10 - Medications Medications: Current Medications Acetaminophen (Tylenol 650 Mg Supp) 650 mg [place] Q6 PRN PRN Reason: Fever >100.4 F Last Admin: 06/13/18 16:39 Dose: 650 mg Albuterol Sulfate (Albuterol 0.083% Inhal Chantale (2.5 Mg/3 Ml) Ud) 2.5 mg INH RQID [facility] Last Admin: 06/15/18 11:00 Dose: 2.5 mg Albuterol Sulfate (Albuterol 0.083% Inhal Chantale (2.5 Mg/3 Ml) Ud) 2.5 mg INH RQ4 PRN PRN Reason: Shortness of Breath Last Admin: 05/30/18 00:25 Dose: 2.5 mg Dimethicone (Proshield Plus Skin Protectant) 1 applic TOP Q8 [facility] Last Admin: 06/15/18 09:47 Dose: 1 applic Famotidine (Pepcid) 40 mg PO DAILY [facility] Last Admin: 06/15/18 09:46 Dose: 40 mg Furosemide (Lasix) 40 mg IVP DAILY [facility] Last Admin: 06/01/18 08:52 Dose: 40 mg Hydromorphone HCl (Dilaudid) 1 mg IVP Q6 PRN PRN Reason: Pain, severe (8-10) Last Admin: 06/15/18 01:35 Dose: 1 mg Lactulose (Enulose) 20 gm PO DAILY PRN PRN Reason: Constipation Last Admin: 05/29/18 18:39 Dose: 20 gm Levetiracetam (Keppra) 500 mg PO BID [facility] Last Admin: 06/15/18 09:46 Dose: 500 mg - Labs Labs: 06/13/18 18:36 06/13/18 18:36 PT 12.4 Seconds (9.8-13.1) 06/08/18 11:50 INR 1.1 06/08/18 11:50 APTT 28.6 Seconds (25.6-37.1) 06/08/18 11:50 - Constitutional Appears: No Acute Distress, Chronically Ill - Head Exam Head Exam: NORMAL INSPECTION - Eye Exam Additional comments: Pupils sluggish reaction to light - ENT Exam ENT Exam: Normal Exam - Neck Exam Neck Exam: Normal Inspection - Respiratory Exam Respiratory Exam: Decreased Breath Sounds (at bases) - Cardiovascular Exam Cardiovascular Exam: REGULAR RHYTHM - GI/Abdominal Exam GI & Abdominal Exam: Soft, Normal Bowel Sounds - Extremities Exam Extremities Exam: Normal Inspection - Back Exam Additional comments: L-S decubitus ulcer stage IV. DTI upper back - Neurological Exam Additional comments: No response to verbal or tactile stimuli, generalized weakness. - Skin Skin Exam: Warm Assessment and Plan (1) CHF (congestive heart failure) Status: Acute (2) Aspiration pneumonia Status: Acute (3) Sepsis Status: Acute (4) Toxic metabolic encephalopathy Status: Acute (5) Altered mental status Status: Acute (6) UTI (urinary tract infection) Status: Acute (7) Dehydration Status: Resolved (8) Hypernatremia Status: Resolved (9) Decubitus ulcer of sacral area Status: Acute (10) Deep tissue injury Status: Acute (11) Chronic back pain Status: Chronic (12) Hx of fracture of femur Status: Chronic (13) HTN (hypertension) Status: Acute (14) COPD (chronic obstructive pulmonary disease) Status: Chronic (15) Hx of congestive heart failure Status: Chronic (16) Seizure disorder Status: Resolved - Assessment and Plan (Free Text) Plan: Patient is off ATB, Patient' son is incline to authorize [facility], awaiting final decision, He may call me today, continue current Tx
[2018-06-16] MEDS: Proshield Plus GEL TOP SCH ×4 (01:00→17:09)
[2018-06-16] MEDS: HYDROmorphone 0.5 mg/0.5 ml ISec IVP PRN (01:13)
[2018-06-16] MEDS: Albuterol 0.083% Inhal Sol (2.5 mg/3 mL) UD INH SCH ×4 (07:11→19:04)
[2018-06-16] MEDS: Sodium Chloride 0.45% 1,000 ML IV SCH (09:48)
[2018-06-16] MEDS: Famotidine 40 MG/5 ML PO SCH (10:26)
[2018-06-16] MEDS: levETIRAcetam 100 mg/ml (5ml) Oral Syringe PO SCH ×3 (10:27→17:08)
--- NOTE | 2018-06-16 11:28 | CP.PCM.PN ---
<Sj Lara - Last Filed: 06/16/18 11:46> Objective - Vital Signs/Intake and Output Vital Signs (last 24 hours): Temp Pulse Resp BP Pulse Ox 97.9 F 88 20 141/65 97 06/16/18 08:10 06/16/18 08:10 06/16/18 08:10 06/16/18 08:10 06/16/18 08:10 - Medications Medications: Current Medications Acetaminophen (Tylenol 650 Mg Supp) 650 mg IN Q6 PRN PRN Reason: Fever >100.4 F Last Admin: 06/13/18 16:39 Dose: 650 mg Albuterol Sulfate (Albuterol 0.083% Inhal Chantale (2.5 Mg/3 Ml) Ud) 2.5 mg INH RQID [facility] Last Admin: 06/16/18 11:32 Dose: 2.5 mg Albuterol Sulfate (Albuterol 0.083% Inhal Chantale (2.5 Mg/3 Ml) Ud) 2.5 mg INH RQ4 PRN PRN Reason: Shortness of Breath Last Admin: 05/30/18 00:25 Dose: 2.5 mg Dimethicone (Proshield Plus Skin Protectant) 1 applic TOP Q8 [facility] Last Admin: 06/16/18 01:00 Dose: 1 applic Famotidine (Pepcid) 40 mg PO DAILY [facility] Last Admin: 06/15/18 09:46 Dose: 40 mg Furosemide (Lasix) 40 mg IVP DAILY [facility] Last Admin: 06/01/18 08:52 Dose: 40 mg Hydromorphone HCl (Dilaudid) 1 mg IVP Q6 PRN PRN Reason: Pain, severe (8-10) Last Admin: 06/16/18 01:13 Dose: 1 mg Sodium Chloride (Sodium Chloride 0.45%) 1,000 mls @ 50 mls/hr IV .Q20H [facility] Stop: 06/17/18 08:10 Lactulose (Enulose) 20 gm PO DAILY PRN PRN Reason: Constipation Last Admin: 05/29/18 18:39 Dose: 20 gm Levetiracetam (Keppra) 500 mg PO BID [facility] Last Admin: 06/15/18 16:53 Dose: 500 mg - Labs Labs: 06/13/18 18:36 06/13/18 18:36 PT 12.4 Seconds (9.8-13.1) 06/08/18 11:50 INR 1.1 06/08/18 11:50 APTT 28.6 Seconds (25.6-37.1) 06/08/18 11:50 Assessment and Plan (1) CHF (congestive heart failure) Status: Acute (2) Aspiration pneumonia Status: Acute (3) Sepsis Status: Acute (4) Toxic metabolic encephalopathy Status: Acute (5) Altered mental status Status: Acute (6) UTI (urinary tract infection) Status: Acute (7) Dehydration Status: Resolved (8) Hypernatremia Status: Resolved (9) Decubitus ulcer of sacral area Status: Acute (10) Deep tissue injury Status: Acute (11) Chronic back pain Status: Chronic (12) Hx of fracture of femur Status: Chronic (13) HTN (hypertension) Status: Acute (14) COPD (chronic obstructive pulmonary disease) Status: Chronic (15) Hx of congestive heart failure Status: Chronic (16) Seizure disorder Status: Resolved <Nahid Bustamante - Last Filed: 06/16/18 14:25> Subjective - Date & Time of Evaluation Date of Evaluation: 06/16/18 Time of Evaluation: 11:28 - Subjective Subjective: ID Note- Patient seen and examined. afebrile today. no new events overnight. Objective - Vital Signs/Intake and Output Vital Signs (last 24 hours): Temp Pulse Resp BP Pulse Ox 97.9 F 88 20 141/65 97 06/16/18 08:10 06/16/18 08:10 06/16/18 08:10 06/16/18 08:10 06/16/18 08:10 - Medications Medications: Current Medications Acetaminophen (Tylenol 650 Mg Supp) 650 mg IN Q6 PRN PRN Reason: Fever >100.4 F Last Admin: 06/13/18 16:39 Dose: 650 mg Albuterol Sulfate (Albuterol 0.083% Inhal Chantale (2.5 Mg/3 Ml) Ud) 2.5 mg INH RQID [facility] Last Admin: 06/16/18 07:11 Dose: 2.5 mg Albuterol Sulfate (Albuterol 0.083% Inhal Chantale (2.5 Mg/3 Ml) Ud) 2.5 mg INH RQ4 PRN PRN Reason: Shortness of Breath Last Admin: 05/30/18 00:25 Dose: 2.5 mg Dimethicone (Proshield Plus Skin Protectant) 1 applic TOP Q8 [facility] Last Admin: 06/16/18 01:00 Dose: 1 applic Famotidine (Pepcid) 40 mg PO DAILY [facility] Last Admin: 06/15/18 09:46 Dose: 40 mg Furosemide (Lasix) 40 mg IVP DAILY [facility] Last Admin: 06/01/18 08:52 Dose: 40 mg Hydromorphone HCl (Dilaudid) 1 mg IVP Q6 PRN PRN Reason: Pain, severe (8-10) Last Admin: 06/16/18 01:13 Dose: 1 mg Sodium Chloride (Sodium Chloride 0.45%) 1,000 mls @ 50 mls/hr IV .Q20H [facility] Stop: 06/17/18 08:10 Lactulose (Enulose) 20 gm PO DAILY PRN PRN Reason: Constipation Last Admin: 05/29/18 18:39 Dose: 20 gm Levetiracetam (Keppra) 500 mg PO BID [facility] Last Admin: 06/15/18 16:53 Dose: 500 mg - Labs Labs: Assessment and Plan (1) Altered mental status Status: Acute (2) Decubitus ulcer of sacral area Status: Acute (3) Deep tissue injury Status: Acute (4) Hx of fracture of femur Status: Chronic (5) Seizure disorder Status: Resolved
--- NOTE | 2018-06-16 12:39 | CP.PCM.PCO ---
Physician Communication Note - Physician Communication Note Physician Communication Note: TLC to R groin d/c'd, tip intact, no bleeding noted. Pressure dsg applied.
--- NOTE | 2018-06-16 14:27 | CP.PCM.PN ---
Subjective - Date & Time of Evaluation Date of Evaluation: 06/16/18 Time of Evaluation: 14:26 - Subjective Subjective: ID Note- Pt. seen and examined today. Right groin TLC removed by [employer]ICATION[employer] INTERN as per my recommendation. Pt. afebrile. no new events. Objective - Vital Signs/Intake and Output Vital Signs (last 24 hours): Temp Pulse Resp BP Pulse Ox 97.9 F 88 20 141/65 97 06/16/18 08:10 06/16/18 08:10 06/16/18 08:10 06/16/18 08:10 06/16/18 08:10 - Medications Medications: Current Medications Acetaminophen (Tylenol 650 Mg Supp) 650 mg [place] Q6 PRN PRN Reason: Fever >100.4 F Last Admin: 06/13/18 16:39 Dose: 650 mg Albuterol Sulfate (Albuterol 0.083% Inhal Chantale (2.5 Mg/3 Ml) Ud) 2.5 mg INH RQID [facility] Last Admin: 06/16/18 11:32 Dose: 2.5 mg Albuterol Sulfate (Albuterol 0.083% Inhal Chantale (2.5 Mg/3 Ml) Ud) 2.5 mg INH RQ4 PRN PRN Reason: Shortness of Breath Last Admin: 05/30/18 00:25 Dose: 2.5 mg Dimethicone (Proshield Plus Skin Protectant) 1 applic TOP Q8 [facility] Last Admin: 06/16/18 12:46 Dose: 1 applic Famotidine (Pepcid) 40 mg PO DAILY [facility] Last Admin: 06/16/18 10:26 Dose: 40 mg Furosemide (Lasix) 40 mg IVP DAILY [facility] Last Admin: 06/01/18 08:52 Dose: 40 mg Hydromorphone HCl (Dilaudid) 1 mg IVP Q6 PRN PRN Reason: Pain, severe (8-10) Last Admin: 06/16/18 01:13 Dose: 1 mg Sodium Chloride (Sodium Chloride 0.45%) 1,000 mls @ 50 mls/hr IV .Q20H [facility] Stop: 06/17/18 08:10 Last Admin: 06/16/18 09:48 Dose: 50 mls/hr Lactulose (Enulose) 20 gm PO DAILY PRN PRN Reason: Constipation Last Admin: 05/29/18 18:39 Dose: 20 gm Levetiracetam (Keppra) 500 mg PO BID [facility] Last Admin: 06/16/18 10:36 Dose: 500 mg - Labs Labs: - Additional Findings Additional findings: - Constitutional Appears: Chronically Ill Additional comments: nonverbal, - Head Exam Head Exam: ATRAUMATIC - ENT Exam Additional comments: dry oral mucosa - Neck Exam Neck exam: Positive for: Full Rom - Respiratory Exam Additional comments: no wheezing - Cardiovascular Exam Cardiovascular Exam: RRR, +S1, +S2 - GI/Abdominal Exam GI & Abdominal Exam: Normal Bowel Sounds, Soft Additional comments: NT, ND - Extremities Exam Additional comments: right femur surgical site clean/dry/Intact no erythema - Neurological Exam Neurological exam: baseline does not answer questions Laboratory Results - last 72 hr 06/13/18 06/13/18 06/14/18 18:36 18:36 23:55 WBC 9.6 RBC 3.53 L Hgb 10.2 L Hct 31.7 L MCV 89.7 MCH 28.8 MCHC 32.0 L RDW 18.2 H Plt Count 214 Sodium 136 Potassium 3.8 Chloride 90 L Carbon Dioxide 39 H Anion Gap 11 BUN 20 H Creatinine 0.2 L Est GFR ( Amer) > 60 Est GFR (Non-Af Amer) > 60 Random Glucose 184 H Calcium 8.9 Total Bilirubin 0.9 AST 23 ALT 25 Alkaline Phosphatase 117 Total Protein 6.6 Albumin 3.0 L Globulin 3.6 Albumin/Globulin Ratio 0.8 L Urine Color Yellow Urine Clarity Slighty-cloudy Urine pH 7.0 Ur Specific [place] 1.020 Urine Protein 30 Urine Glucose (UA) Neg Urine Ketones Negative Urine Blood Negative Urine Nitrate Negative Urine Bilirubin Negative Urine Urobilinogen 2.0 H Ur Leukocyte Esterase Neg Urine RBC (Auto) 3 Urine Microscopic WBC 4 Ur Squamous Epith Cells 3 Microbiology 06/14/18 23:55 Urine Random Urine Culture - Final Gram Negative Tomas 06/14/18 20:50 Blood-Thru Central Line Blood Culture - Preliminary NO GROWTH AFTER 24 HOURS 06/14/18 20:30 Blood-Thru Central Line Blood Culture - Preliminary NO GROWTH AFTER 24 HOURS 06/13/18 18:46 Blood Blood Culture - Preliminary NO GROWTH AFTER 48 HOURS 06/13/18 18:36 Blood Blood Culture - Preliminary NO GROWTH AFTER 48 HOURS 06/04/18 17:25 Naris MRSA Culture (Admit) - Final MRSA NOT DETECTED 05/25/18 16:35 Blood-Venous Blood Culture - Final NO GROWTH AFTER 5 DAYS 05/25/18 16:35 Blood-Venous Gram Stain - Final TEST NOT PERFORMED 05/25/18 16:25 Blood-Venous Blood Culture - Final NO GROWTH AFTER 5 DAYS 05/25/18 16:25 Blood-Venous Gram Stain - Final TEST NOT PERFORMED 05/27/18 16:08 Sputum Gram Stain - Final 05/27/18 16:08 Sputum Sputum Culture - Final Escherichia Coli 05/26/18 06:30 Urine,[place] Urine Culture - Final Escherichia Coli 05/21/18 09:10 Blood-Venous Blood Culture - Final NO GROWTH AFTER 5 DAYS 05/21/18 09:10 Blood-Venous Gram Stain - Final TEST NOT PERFORMED 05/20/18 13:00 Blood Blood Culture - Final NO GROWTH AFTER 5 DAYS 05/20/18 13:00 Blood Gram Stain - Final TEST NOT PERFORMED 05/20/18 17:43 Nose MRSA Culture (Admit) - Final MRSA NOT DETECTED 05/20/18 13:34 Urine,[place] Urine Culture - Final Enterococcus Faecalis - Accession No. : [id number] Patient Name / ID : LENORA PAGAN / [id number] Exam Date : 06/14/2018 20:01:32 ( Approved ) Study Comment : Sex / Age : F / 83Y Creator : Maik Bansal MD Dictator : Maik Bansal MD Cheesemaker : Test Facility Engineer : Maik Bansal MD Approver2 : Report Date : 06/15/2018 10:58:23 My Comment : Date of service: 06/14/2018 PROCEDURE: CHEST RADIOGRAPH, 1 VIEW HISTORY: fever COMPARISON: 06/13/2018 FINDINGS: LUNGS: Limited evaluation due to oblique positioning and poor inspiratory effort. Extensive diffuse right-sided infiltrate has significantly resolved compared to the prior examination. There is residual dense opacity in the upper right ej thorax, however. No definite left-sided infiltrate is PLEURA: Identified. CARDIOVASCULAR: Grossly normal. Limited evaluation. Nasogastric tube extends to the left upper quadrant of the abdomen as on previous examination. OSSEOUS STRUCTURES: No significant abnormalities. VISUALIZED UPPER ABDOMEN: Normal. OTHER FINDINGS: None. IMPRESSION: Limited examination. There is residual consolidation in the upper right lung. Assessment and Plan (1) Altered mental status Status: Acute (2) Decubitus ulcer of sacral area Status: Acute (3) Deep tissue injury Status: Acute (4) Hx of fracture of femur Status: Chronic (5) Seizure disorder Status: Resolved - Assessment and Plan (Free Text) Assessment: A/P 83 year old female with multiple medical conditions icnluding CAD, Dementia, COPD, recent right femur ORIF admitted form [place] for AMS and fever. was treated for E.COli pneumonia with IV meropnem for 10 days and had been afebrile but now has new onset fever. afebrile past 24 hours mild leukocytosis had resolved. urine cx 05/26/2018- ESBL e.coli was treated with meropnem sputum cx- reported as ESBL e.coli as well was treated with meropenem Blood cx- neg x 5 urine legionella ag- neg Mycoplasma IGM- negative blood cx 06/14 and 06/15- neg x 4 urine cx 06/14/2018- GNR cxr reported as residual consolidation Right upper lung PLan- advise to monitor aspiration precautions . has completed 10 days of IV meropenem. has completed 7 days of IV vancomyicn as well. hold off on abx pending clinical response, if develops fever again then would advise to start IV abx .
--- NOTE | 2018-06-16 14:28 | CP.PCM.PN ---
Subjective - Date & Time of Evaluation Date of Evaluation: 06/16/18 Time of Evaluation: 12:45 - Subjective Subjective: F/U AMS, PNA No response to verbal or tactile stimuli, open eyes at times. Objective - Vital Signs/Intake and Output Vital Signs (last 24 hours): Temp Pulse Resp BP Pulse Ox 97.9 F 88 20 141/65 97 06/16/18 08:10 06/16/18 08:10 06/16/18 08:10 06/16/18 08:10 06/16/18 08:10 - Medications Medications: Current Medications Acetaminophen (Tylenol 650 Mg Supp) 650 mg [place] Q6 PRN PRN Reason: Fever >100.4 F Last Admin: 06/13/18 16:39 Dose: 650 mg Albuterol Sulfate (Albuterol 0.083% Inhal Chantale (2.5 Mg/3 Ml) Ud) 2.5 mg INH RQID [facility] Last Admin: 06/16/18 11:32 Dose: 2.5 mg Albuterol Sulfate (Albuterol 0.083% Inhal Chantale (2.5 Mg/3 Ml) Ud) 2.5 mg INH RQ4 PRN PRN Reason: Shortness of Breath Last Admin: 05/30/18 00:25 Dose: 2.5 mg Dimethicone (Proshield Plus Skin Protectant) 1 applic TOP Q8 [facility] Last Admin: 06/16/18 12:46 Dose: 1 applic Famotidine (Pepcid) 40 mg PO DAILY [facility] Last Admin: 06/16/18 10:26 Dose: 40 mg Furosemide (Lasix) 40 mg IVP DAILY [facility] Last Admin: 06/01/18 08:52 Dose: 40 mg Hydromorphone HCl (Dilaudid) 1 mg IVP Q6 PRN PRN Reason: Pain, severe (8-10) Last Admin: 06/16/18 01:13 Dose: 1 mg Sodium Chloride (Sodium Chloride 0.45%) 1,000 mls @ 50 mls/hr IV .Q20H [facility] Stop: 06/17/18 08:10 Last Admin: 06/16/18 09:48 Dose: 50 mls/hr Lactulose (Enulose) 20 gm PO DAILY PRN PRN Reason: Constipation Last Admin: 05/29/18 18:39 Dose: 20 gm Levetiracetam (Keppra) 500 mg PO BID [facility] Last Admin: 06/16/18 10:36 Dose: 500 mg - Labs Labs: 06/13/18 18:36 06/13/18 18:36 PT 12.4 Seconds (9.8-13.1) 06/08/18 11:50 INR 1.1 06/08/18 11:50 APTT 28.6 Seconds (25.6-37.1) 06/08/18 11:50 - Constitutional Appears: Chronically Ill - Head Exam Head Exam: NORMAL INSPECTION - Eye Exam Additional comments: Pupils sluggish reaction to light - ENT Exam ENT Exam: Normal Exam Additional comments: NGT - Neck Exam Neck Exam: Normal Inspection - Respiratory Exam Respiratory Exam: Decreased Breath Sounds (at bases), Rhonchi - Cardiovascular Exam Cardiovascular Exam: REGULAR RHYTHM - GI/Abdominal Exam GI & Abdominal Exam: Soft, Normal Bowel Sounds - Extremities Exam Extremities Exam: Normal Inspection - Back Exam Additional comments: L-S decubitus ulcer stage IV, DTI upper back. - Neurological Exam Additional comments: No responsive to verbal or tactile stimuli - Skin Skin Exam: Warm Assessment and Plan (1) CHF (congestive heart failure) Status: Acute (2) Aspiration pneumonia Status: Acute (3) Sepsis Status: Acute (4) Toxic metabolic encephalopathy Status: Acute (5) Altered mental status Status: Acute (6) UTI (urinary tract infection) Status: Acute (7) Dehydration Status: Resolved (8) Hypernatremia Status: Resolved (9) Decubitus ulcer of sacral area Status: Acute (10) Deep tissue injury Status: Acute (11) Chronic back pain Status: Chronic (12) Hx of fracture of femur Status: Chronic (13) HTN (hypertension) Status: Acute (14) COPD (chronic obstructive pulmonary disease) Status: Chronic (15) Hx of congestive heart failure Status: Chronic (16) Seizure disorder Status: Resolved - Assessment and Plan (Free Text) Plan: Continue current Tx, poor prognosis, awaiting signature of son if he agree with hospice placement.
[2018-06-17] MEDS: Proshield Plus GEL TOP SCH ×2 (01:00→09:43)
[2018-06-17] MEDS: Sodium Chloride 0.45% 1,000 ML IV SCH (04:23)
[2018-06-17] MEDS: Albuterol 0.083% Inhal Sol (2.5 mg/3 mL) UD INH SCH ×3 (07:22→15:58)
[2018-06-17 08:09] VITALS: BP 171/80; PULSE 99; RESP 22; TEMP 98.2; O2SAT 96
[2018-06-17] MEDS: Famotidine 40 MG/5 ML PO SCH (09:42)
[2018-06-17] MEDS: levETIRAcetam 100 mg/ml (5ml) Oral Syringe PO SCH (09:42)
--- NOTE | 2018-06-17 13:47 | CP.PCM.PN ---
Objective - Vital Signs/Intake and Output Vital Signs (last 24 hours): Temp Pulse Resp BP Pulse Ox 98.2 F 99 H 22 171/80 H 96 06/17/18 08:09 06/17/18 08:09 06/17/18 08:09 06/17/18 08:09 06/17/18 08:09 - Medications Medications: Current Medications Acetaminophen (Tylenol 650 Mg Supp) 650 mg [place] Q6 PRN PRN Reason: Fever >100.4 F Last Admin: 06/13/18 16:39 Dose: 650 mg Albuterol Sulfate (Albuterol 0.083% Inhal Chantale (2.5 Mg/3 Ml) Ud) 2.5 mg INH RQID [facility] Last Admin: 06/17/18 11:06 Dose: 2.5 mg Albuterol Sulfate (Albuterol 0.083% Inhal Chantale (2.5 Mg/3 Ml) Ud) 2.5 mg INH RQ4 PRN PRN Reason: Shortness of Breath Last Admin: 05/30/18 00:25 Dose: 2.5 mg Dimethicone (Proshield Plus Skin Protectant) 1 applic TOP Q8 [facility] Last Admin: 06/17/18 09:43 Dose: 1 applic Famotidine (Pepcid) 40 mg PO DAILY [facility] Last Admin: 06/17/18 09:42 Dose: 40 mg Furosemide (Lasix) 40 mg IVP DAILY [facility] Last Admin: 06/01/18 08:52 Dose: 40 mg Hydromorphone HCl (Dilaudid) 1 mg IVP Q6 PRN PRN Reason: Pain, severe (8-10) Last Admin: 06/16/18 01:13 Dose: 1 mg Lactulose (Enulose) 20 gm PO DAILY PRN PRN Reason: Constipation Last Admin: 05/29/18 18:39 Dose: 20 gm Levetiracetam (Keppra) 500 mg PO BID [facility] Last Admin: 06/17/18 09:42 Dose: 500 mg - Labs Labs: 06/13/18 18:36 06/13/18 18:36 PT 12.4 Seconds (9.8-13.1) 06/08/18 11:50 INR 1.1 06/08/18 11:50 APTT 28.6 Seconds (25.6-37.1) 06/08/18 11:50 Assessment and Plan (1) CHF (congestive heart failure) Status: Acute (2) Aspiration pneumonia Status: Acute (3) Sepsis Status: Acute (4) Toxic metabolic encephalopathy Status: Acute (5) Altered mental status Status: Acute (6) UTI (urinary tract infection) Status: Acute (7) Dehydration Status: Resolved (8) Hypernatremia Status: Resolved (9) Decubitus ulcer of sacral area Status: Acute (10) Deep tissue injury Status: Acute (11) Chronic back pain Status: Chronic (12) Hx of fracture of femur Status: Chronic (13) HTN (hypertension) Status: Acute (14) COPD (chronic obstructive pulmonary disease) Status: Chronic (15) Hx of congestive heart failure Status: Chronic (16) Seizure disorder Status: Resolved
--- NOTE | 2018-06-17 20:28 | CP.PCM.DIS ---
Provider - Provider Date of Admission: 05/20/18 14:33 Attending physician: Sj Lara MD Consults: 05/20/18 15:15 Neurology Consult Stat Comment: Consulting Provider: Keith Flanagan Consulting Physician: Keith Flanagan Reason for Consult: AMS 05/20/18 17:47 Wound Care [Nursing Referral for Wound Care] Routine Comment: Physician Instructions: Reason For Exam: wound 05/22/18 14:20 Physiatry Consult Routine Comment: Consulting Provider: Raheem Hammonds Consulting Physician: Raheem Hammonds Reason for Consult: Sacral stage 4 management 05/22/18 14:39 Orthopedic Consult Routine Comment: Consulting Provider: Hector Barboza III Consulting Physician: Hector Barboza III Reason for Consult: remove vickie right knee 05/23/18 13:09 Gastroenterology Consult Routine Comment: for Peg Insertion Consulting Provider: Zack Hackett Consulting Physician: Zack Hackett Reason for Consult: for Peg insertion 05/25/18 12:17 Infectious Disease Consult Routine Comment: Consulting Provider: Nahid Bustamante Consulting Physician: Nahid Bustamante Reason for Consult: sepsis,pneumonia 05/25/18 12:25 Cardiology Consult Routine Comment: Consulting Provider: Juarez Varghese Consulting Physician: Juarez Varghese Reason for Consult: CHF, CABG history Diagnosis - Discharge Diagnosis (1) CHF (congestive heart failure) Status: Acute (2) Aspiration pneumonia Status: Acute (3) Sepsis Status: Acute Priority: High (4) Toxic metabolic encephalopathy Status: Acute Priority: High (5) Altered mental status Status: Acute Priority: High (6) UTI (urinary tract infection) Status: Acute Priority: High (7) Dehydration Status: Resolved Priority: High (8) Hypernatremia Status: Resolved Priority: High (9) Decubitus ulcer of sacral area Status: Acute Priority: High (10) Deep tissue injury Status: Acute (11) Chronic back pain Status: Chronic Priority: High (12) Hx of fracture of femur Status: Chronic Priority: High (13) HTN (hypertension) Status: Acute Priority: Low (14) COPD (chronic obstructive pulmonary disease) Status: Chronic Priority: Medium (15) Hx of congestive heart failure Status: Chronic (16) Seizure disorder Status: Resolved Hospital Course - Lab Results Lab Results: Micro Results 06/13/18 18:46 Blood Blood Culture - Preliminary NO GROWTH AFTER 4 DAYS 06/13/18 18:36 Blood Blood Culture - Preliminary NO GROWTH AFTER 4 DAYS 06/14/18 20:50 Blood-Thru Central Line Blood Culture - Preliminary NO GROWTH AFTER 48 HOURS 06/14/18 20:30 Blood-Thru Central Line Blood Culture - Preliminary NO GROWTH AFTER 48 HOURS 06/14/18 23:55 Urine Random Urine Culture - Final Gram Negative Tomas 06/04/18 17:25 Naris MRSA Culture (Admit) - Final MRSA NOT DETECTED 05/25/18 16:35 Blood-Venous Blood Culture - Final NO GROWTH AFTER 5 DAYS 05/25/18 16:35 Blood-Venous Gram Stain - Final TEST NOT PERFORMED 05/25/18 16:25 Blood-Venous Blood Culture - Final NO GROWTH AFTER 5 DAYS 05/25/18 16:25 Blood-Venous Gram Stain - Final TEST NOT PERFORMED 05/27/18 16:08 Sputum Gram Stain - Final 05/27/18 16:08 Sputum Sputum Culture - Final Escherichia Coli 05/26/18 06:30 Urine,[place] Urine Culture - Final Escherichia Coli 05/21/18 09:10 Blood-Venous Blood Culture - Final NO GROWTH AFTER 5 DAYS 05/21/18 09:10 Blood-Venous Gram Stain - Final TEST NOT PERFORMED 05/20/18 13:00 Blood Blood Culture - Final NO GROWTH AFTER 5 DAYS 05/20/18 13:00 Blood Gram Stain - Final TEST NOT PERFORMED 05/20/18 17:43 Nose MRSA Culture (Admit) - Final MRSA NOT DETECTED 05/20/18 13:34 Urine,[place] Urine Culture - Final Enterococcus Faecalis Most Recent Lab Values WBC 9.6 K/uL (4.8-10.8) 06/13/18 18:36 RBC 3.53 Mil/uL (3.80-5.20) L 06/13/18 18:36 Hgb 10.2 g/dL (12.0-16.0) L 06/13/18 18:36 Hct 31.7 % (34.0-47.0) L 06/13/18 18:36 MCV 89.7 fl (81.0-99.0) 06/13/18 18:36 MCH 28.8 pg (27.0-31.0) 06/13/18 18:36 MCHC 32.0 g/dL (33.0-37.0) L 06/13/18 18:36 RDW 18.2 % (11.5-14.5) H 06/13/18 18:36 Plt Count 214 K/uL (130-400) 06/13/18 18:36 MPV 11.5 fl (7.2-11.7) 06/04/18 04:21 Neut % (Auto) 79.4 % (50.0-75.0) H 06/04/18 04:21 Lymph % (Auto) 9.8 % (20.0-40.0) L 06/04/18 04:21 [place] % (Auto) 8.7 % (0.0-10.0) 06/04/18 04:21 Eos % (Auto) 1.3 % (0.0-4.0) 06/04/18 04:21 Baso % (Auto) 0.8 % (0.0-2.0) 06/04/18 04:21 Neut # (Auto) 5.5 K/uL (1.8-7.0) 06/04/18 04:21 Lymph # (Auto) 0.7 K/uL (1.0-4.3) L 06/04/18 04:21 [place] # (Auto) 0.6 K/uL (0.0-0.8) 06/04/18 04:21 Eos # (Auto) 0.1 K/uL (0.0-0.7) 06/04/18 04:21 Baso # (Auto) 0.1 K/uL (0.0-0.2) 06/04/18 04:21 Neutrophils % (Manual) 82 % (42-75) H 06/03/18 09:50 Band Neutrophils % 2 % (0-2) 06/03/18 09:50 Lymphocytes % (Manual) 8 % (20-50) L 06/03/18 09:50 Monocytes % (Manual) 6 % (0-10) 06/03/18 09:50 Eosinophils % (Manual) 1 % (0-7) 06/03/18 09:50 Metamyelocytes % 1 % (0-0) H 06/03/18 09:50 Myelocytes % 1 % (0-0) H 05/28/18 04:26 Platelet Estimate Normal (NORMAL) 06/03/18 09:50 Plt Clumps, EDTA Present 05/20/18 13:00 Large Platelets Present 06/03/18 09:50 Giant Platelets Present 05/24/18 05:10 Hypochromasia (manual) Slight 06/03/18 09:50 Poikilocytosis (manual Slight 05/29/18 04:30 Anisocytosis (manual) Slight 06/03/18 09:50 Target Cells Slight 05/24/18 05:10 Tear Drop Cells Slight 05/25/18 04:25 Ovalocytes Slight 06/03/18 09:50 [place] Cells Slight 05/28/18 04:26 PT 12.4 Seconds (9.8-13.1) 06/08/18 11:50 INR 1.1 06/08/18 11:50 APTT 28.6 Seconds (25.6-37.1) 06/08/18 11:50 pCO2 64 mm/Hg (35-45) H 06/01/18 07:23 pO2 68 mm/Hg (80-100) L 06/01/18 07:23 HCO3 44.4 mmol/L (21-28) H* 06/01/18 07:23 ABG pH 7.51 (7.35-7.45) H 06/01/18 07:23 ABG Total CO2 53.1 mmol/L (22-28) H 06/01/18 07:23 ABG O2 Saturation 97.3 % (95-98) 06/01/18 07:23 ABG O2 Content 12.7 ML/dL (15-23) L 05/29/18 05:17 ABG Base Excess 25.0 mmol/L (-2.0-3.0) H 06/01/18 07:23 ABG Hemoglobin 8.7 g/dL (11.7-17.4) L 05/29/18 05:17 ABG Carboxyhemoglobin 0.4 % (0.5-1.5) L 05/29/18 05:17 POC ABG HHb (Measured) 0.3 % (0.0-5.0) 05/29/18 05:17 ABG Methemoglobin 1.1 % (0.0-3.0) 05/29/18 05:17 ABG O2 Capacity 12.7 mL/dL (16-24) L 05/29/18 05:17 Oswaldo Test Yes 06/01/18 07:23 ABG Potassium 3.5 mmol/L (3.6-5.2) L 06/01/18 07:23 VBG pH 7.45 (7.32-7.43) H 05/20/18 15:52 VBG pCO2 47 mmHg (40-60) 05/20/18 15:52 VBG HCO3 30.7 mmol/L 05/20/18 15:52 VBG Total CO2 34.1 mmol/L (22-28) H 05/20/18 15:52 VBG O2 Sat (Calc) 97.3 % (40-65) H 05/20/18 15:52 VBG Base Excess 7.5 mmol/L (0.0-2.0) H 05/20/18 15:52 VBG Potassium 3.4 mmol/L (3.6-5.2) L 05/20/18 15:52 A-a O2 Difference 209.0 mm/Hg 06/01/18 07:23 Hgb O2 Saturation 98.2 % (95.0-98.0) H 05/29/18 05:17 Sodium 138.0 mmol/L (132-148) 06/01/18 07:23 Chloride 98.0 mmol/L (98-107) 06/01/18 07:23 Glucose 183 mg/dL (65-105) H 06/01/18 07:23 Lactate 1.2 mmol/L (0.7-2.1) 06/01/18 07:23 Vent Mode Nc 05/26/18 10:36 FiO2 50.0 % 06/01/18 07:23 Blood Gas Comments 50%v mask 06/01/18 07:23 Crit Value Called To Tameka mina 06/01/18 07:23 Crit Value Called By 15 06/01/18 07:23 Crit Value Read Back Y 06/01/18 07:23 Blood Gas Notified Time 839 06/01/18 07:23 Sodium 136 mmol/l (132-148) 06/13/18 18:36 Potassium 3.8 MMOL/L (3.6-5.0) 06/13/18 18:36 Chloride 90 mmol/L (98-107) L 06/13/18 18:36 Carbon Dioxide 39 mmol/L (22-30) H 06/13/18 18:36 Anion Gap 11 (10-20) 06/13/18 18:36 BUN 20 mg/dl (7-17) H 06/13/18 18:36 Creatinine 0.2 mg/dl (0.7-1.2) L 06/13/18 18:36 Est GFR ( Amer) > 60 06/13/18 18:36 Est GFR (Non-Af Amer) > 60 06/13/18 18:36 POC Glucose (mg/dL) 108 mg/dL (65-110) 05/21/18 15:54 Random Glucose 184 mg/dL (65-105) H 06/13/18 18:36 Lactic Acid 1.8 MMOL/L (0.7-2.1) 05/20/18 15:40 Calcium 8.9 mg/dL (8.4-10.2) 06/13/18 18:36 Phosphorus 2.6 mg/dl (2.5-4.5) 06/04/18 04:21 Magnesium 2.2 MG/DL (1.6-2.3) 06/04/18 04:21 Total Bilirubin 0.9 mg/dl (0.2-1.3) 06/13/18 18:36 AST 23 U/L (14-36) 06/13/18 18:36 ALT 25 U/L (9-52) 06/13/18 18:36 Alkaline Phosphatase 117 U/L (38-126) 06/13/18 18:36 Troponin I < 0.0120 ng/mL (0.00-0.120) 05/25/18 21:00 NT-Pro-B Natriuret Pep 770 pg/ml (0-900) 05/26/18 05:25 Total Protein 6.6 G/DL (6.3-8.2) 06/13/18 18:36 Albumin 3.0 g/dL (3.5-5.0) L 06/13/18 18:36 Globulin 3.6 gm/dL (2.2-3.9) 06/13/18 18:36 Albumin/Globulin Ratio 0.8 (1.0-2.1) L 06/13/18 18:36 Lipase 15 U/L (23-300) L 05/20/18 13:00 Arterial Blood Potassium 3.5 mmol/L (3.6-5.2) L 06/01/18 07:23 Venous Blood Potassium 3.4 mmol/L (3.6-5.2) L 05/20/18 15:52 Urine Color Yellow (YELLOW) 06/14/18 23:55 Urine Clarity Slighty-cloudy (Clear) 06/14/18 23:55 Urine pH 7.0 (5.0-8.0) 06/14/18 23:55 Ur Specific [place] 1.020 (1.003-1.030) 06/14/18 23:55 Urine Protein 30 mg/dL (NEGATIVE) 06/14/18 23:55 Urine Glucose (UA) Neg mg/dL (NEGATIVE) 06/14/18 23:55 Urine Ketones Negative mg/dL (NEGATIVE) 06/14/18 23:55 Urine Blood Negative (NEGATIVE) 06/14/18 23:55 Urine Nitrate Negative (NEGATIVE) 06/14/18 23:55 Urine Bilirubin Negative (NEGATIVE) 06/14/18 23:55 Urine Urobilinogen 2.0 mg/dL (0.2-1.0) H 06/14/18 23:55 Ur Leukocyte Esterase Neg Suhas/uL (Negative) 06/14/18 23:55 Urine RBC (Auto) 3 /hpf (0-3) 06/14/18 23:55 Urine Microscopic WBC 4 /hpf (0-5) 06/14/18 23:55 Ur Squamous Epith Cells 3 /hpf (0-5) 06/14/18 23:55 Amorphous Sediment Occ /ul (<OCC) H 05/20/18 13:20 Urine Bacteria Rare (<OCC) 05/26/18 06:30 Hyaline Casts 3-5 /hpf (0-2) H 05/26/18 06:30 Vancomycin Trough 6.5 ug/mL (5.0-10.0) 06/02/18 06:00 Random Vancomycin 6.0 ug/mL 05/21/18 05:30 Lamotrigine 0.6 mcg/ml l 05/20/18 15:40 Influenza Typ A,B (EIA) Negative for flu a/b (NEGATIVE) 05/20/18 13:00 Ur L.pneumophila Ag Negative (NEGATIVE) 05/28/18 04:35 Mycoplasma pneumon IgM Negative (NEGATIVE) 05/28/18 04:26 Discharge Exam - Head Exam Head Exam: NORMAL INSPECTION Discharge Plan - Follow Up Plan Condition: CRITICAL Disposition: HOSPICE - MEDICAL FACILITY Instructions: Altered Mental Status (DC), Sepsis, Adult (DC) Referrals: Hector Barboza III, MD [Staff Provider] - Juarez Varghese MD [Staff Provider] - Keith Flanagan MD [Medical Doctor] -
== END 2018-06-17 16:05 | disposition hospice, inpatient (51) | DRG 871 ==
LOC: H.ER 11:32 → H.ERHOLD 14:33 → H.ICU/CCU 17:03 → H.MEDSURG1 06-04 15:40
PROVIDERS: ADMIT Internal Medicine Pulmonary Disease; ATTEND Internal Medicine Pulmonary Disease
PROC: 3E0F7GC Introduction of Other Therapeutic Substance into Respiratory Tract, Via Natural or Artificial Opening (ICD-10-PCS; principal; 2018-05-23)
PROC: 06HM33Z Insertion of Infusion Device into Right Femoral Vein, Percutaneous Approach (ICD-10-PCS; 2018-05-23)
DX: A41.9 Sepsis, unspecified organism (principal); L89.154 Pressure ulcer of sacral region, stage 4; G92 Toxic encephalopathy; J69.0 Pneumonitis due to inhalation of food and vomit; J96.01 Acute respiratory failure with hypoxia; J96.02 Acute respiratory failure with hypercapnia; J15.5 Pneumonia due to Escherichia coli; T83.511A Infection and inflammatory reaction due to indwelling urethral catheter, initial encounter; E87.0 Hyperosmolality and hypernatremia; I50.32 Chronic diastolic (congestive) heart failure; N39.0 Urinary tract infection, site not specified; E86.0 Dehydration; L89.100 Pressure ulcer of unspecified part of back, unstageable; E87.6 Hypokalemia; I11.0 Hypertensive heart disease with heart failure; D63.8 Anemia in other chronic diseases classified elsewhere; D69.6 Thrombocytopenia, unspecified; E11.65 Type 2 diabetes mellitus with hyperglycemia; E78.00 Pure hypercholesterolemia, unspecified; F03.90 Unspecified dementia, unspecified severity, without behavioral disturbance, psychotic disturbance, mood disturbance, and anxiety; G40.909 Epilepsy, unspecified, not intractable, without status epilepticus; G89.29 Other chronic pain; H91.90 Unspecified hearing loss, unspecified ear; I25.10 Atherosclerotic heart disease of native coronary artery without angina pectoris; J44.9 Chronic obstructive pulmonary disease, unspecified; M81.0 Age-related osteoporosis without current pathological fracture; R13.10 Dysphagia, unspecified; R62.7 Adult failure to thrive; Y84.6 Urinary catheterization as the cause of abnormal reaction of the patient, or of later complication, without mention of misadventure at the time of the procedure; Z51.5 Encounter for palliative care; Z66 Do not resuscitate; Z88.0 Allergy status to penicillin; Z95.1 Presence of aortocoronary bypass graft; Z99.3 Dependence on wheelchair; F32.9 Major depressive disorder, single episode, unspecified; F41.9 Anxiety disorder, unspecified; K59.00 Constipation, unspecified; K81.9 Cholecystitis, unspecified; L89.620 Pressure ulcer of left heel, unstageable; M19.90 Unspecified osteoarthritis, unspecified site; Z74.01 Bed confinement status; M54.9 Dorsalgia, unspecified; R00.0 Tachycardia, unspecified; B96.20 Unspecified Escherichia coli [E. coli] as the cause of diseases classified elsewhere

== ENCOUNTER 2018-06-17 15:07 | Inpatient (IN) | payer OTHER ==
[2018-06-17 15:56] VITALS: BMI 18.7
[2018-06-17] MEDS: levETIRAcetam 500 MG in Sodium Chloride 0.9% 100 ML IVPB SCH (21:57)
[2018-06-18] MEDS: levETIRAcetam 500 MG in Sodium Chloride 0.9% 100 ML IVPB SCH ×2 (09:12→21:06)
--- NOTE | 2018-06-18 14:37 | CP.PCM.HP ---
History of Present Illness - History of Present Illness History of Present Illness: 83 y/o F, admitted to Hospice on 06/17/18. PT resident at [facility], was sent by this facility to [facility] on 05/20/18 due to AMS ( Pt with Dx of dementia, not in her base line), lethargic and reporting high fever of 101.4 with no relief, in the hospital course, Pt was also Tx for other acute and chronic medical conditions, including Aspiration PNA, Sepsis, CHF, Metabolic Encephalopathy, UTI, dehydration, hyperkalemia, sacral ulcer stage IV, DTI upper back, Hx femur Fx, Seizure Disorder. On 06/17/18, Pt was admitted to Hospice. Neurological condition worsening/ deteriorating, requiring OGT, Pt Non verbal, non response to tactile stimuli, comatose with poor prognosis, gradually became unresponsive to medications. Clinical condition was discussed with Pt's son and He requested Hospice status. Present on Admission - Present on Admission Any Indicators Present on Admission: Yes Decubitus Ulcer Stage: III Review of Systems - Review of Systems Systems not reviewed;Unavailable: Acuity of Condition, Dementia, Other (Hospice status.) Past Patient History - Infectious Disease Hx of Infectious Diseases: None - Past Medical History & Family History Past Medical History?: Yes Pertinent Family History: Unknown - Past Social History Smoking Status: Never Smoked Alcohol: None Drugs: Denies Home Situation {Lives}: Long-Term - CARDIAC Hx Cardiac Disorders: Yes Hx Congestive Heart Failure: Yes Hx Hypercholesterolemia: Yes Hx Hypertension: Yes - PULMONARY Hx Respiratory Disorders: Yes Hx Asthma: Yes Hx Chronic Obstructive Pulmonary Disease (COPD): Yes - NEUROLOGICAL Hx Neurological Disorder: Yes Hx Dementia: Yes Hx Seizures: Yes Other/Comment: fall - HEENT Hx HEENT Problems: No Hx Deafness: Yes (hearing aid) - RENAL Hx Chronic Kidney Disease: No - ENDOCRINE/METABOLIC Hx Endocrine Disorders: No Hx Diabetes Mellitus Type 2: No - HEMATOLOGICAL/ONCOLOGICAL Hx Blood Disorders: Yes Hx AIDS: No Hx Anemia: Yes Hx Human Immunodeficiency Virus (HIV): No - INTEGUMENTARY Hx Dermatological Problems: No - MUSCULOSKELETAL/RHEUMATOLOGICAL Hx Arthritis: Yes (poly) Hx Back Pain: Yes Hx Falls: Yes Hx Fractures: Yes (L wrist , comp Fx T Spine, Fx L wrist, ORIF R distal Femur Fx 04-11-18) Hx Osteoporosis: Yes Hx Unsteady Gait: Yes Other/Comment: ORIF Right Pathological distal femur fracture 04-11-18 - GASTROINTESTINAL Hx Gastrointestinal Disorders: Yes Hx Constipation: Yes Other/Comment: Cholecystitis - GENITOURINARY/GYNECOLOGICAL Hx Genitourinary Disorders: Yes - PSYCHIATRIC Hx Psychophysiologic Disorder: Yes Hx Anxiety: Yes Hx Depression: Yes Hx Substance Use: No - SURGICAL HISTORY Hx Surgeries: Yes Hx Cholecystectomy: Yes Hx Coronary Artery Bypass Graft: Yes Hx Open Reduction Internal Fixation: Yes Other/Comment: ORIF R Pathological distal Femur Fx 04-11-18, compression Fx T Spine, Fx L wrist - ANESTHESIA Hx Anesthesia: Yes Hx Anesthesia Reactions: No Hx Malignant Hyperthermia: No Meds Allergies/Adverse Reactions: Allergies Allergy/AdvReac Type Severity Reaction Status Date / Time Penicillins Allergy RASH Verified 05/25/17 12:15 Physical Exam - Constitutional Appears: Chronically Ill - Head Exam Head Exam: NORMAL INSPECTION - Eye Exam Additional comments: Sluggish reaction to light - Neck Exam Neck exam: Positive for: Normal Inspection - Respiratory Exam Respiratory Exam: Decreased Breath Sounds (at bases) - Cardiovascular Exam Cardiovascular Exam: REGULAR RHYTHM - GI/Abdominal Exam GI & Abdominal Exam: Normal Bowel Sounds, Soft - Extremities Exam Extremities exam: Positive for: normal inspection - Back Exam Additional comments: L-S decubitus ulcer stage III. DTI upper back - Neurological Exam Additional comments: no response to verbal or tactile stimuli, moaning. - Skin Skin Exam: Warm Results - Vital Signs Recent Vital Signs: Last Vital Signs Temp 97.6 F 06/18/18 08:49 Pulse 93 H 06/18/18 08:49 Resp 17 06/18/18 08:49 BP 130/78 06/18/18 08:49 Pulse Ox 100 06/18/18 08:49 Assessment & Plan (1) Admission for hospice care Status: Acute Priority: High - Assessment and Plan (Free Text) Plan: On [facility], continue Hospice care. - Date & Time Date: 06/18/18 Time: 11:40
[2018-06-19] MEDS: levETIRAcetam 500 MG in Sodium Chloride 0.9% 100 ML IVPB SCH ×2 (08:36→21:58)
[2018-06-19] MEDS: Morphine 100 MG in Sodium Chloride 0.9% 96 ML IV SCH (14:41)
--- NOTE | 2018-06-19 15:30 | CP.PCM.PN ---
Subjective - Date & Time of Evaluation Date of Evaluation: 06/19/18 Time of Evaluation: 12:10 - Subjective Subjective: F/U Hospice Status. moaning Objective - Vital Signs/Intake and Output Vital Signs (last 24 hours): Temp Pulse Resp BP Pulse Ox 97.5 F L 92 H 20 136/75 100 06/19/18 09:00 06/19/18 09:00 06/19/18 09:00 06/19/18 09:00 06/19/18 09:00 - Medications Medications: Current Medications Acetaminophen (Tylenol 650 Mg Supp) 650 mg [place] Q4 PRN PRN Reason: Temperature Hydromorphone HCl (Dilaudid) 1 mg IVP Q6 PRN PRN Reason: Pain, severe (8-10) Last Admin: 06/18/18 13:10 Dose: 1 mg Levetiracetam 500 mg/ Sodium (Chloride) 105 mls @ 210 mls/hr IVPB Q12 BELLE Last Admin: 06/19/18 08:36 Dose: 210 mls/hr Morphine Sulfate 100 mg/ (Sodium Chloride) 100 mls @ 1 mls/hr IV .Q24H BELLE; Protocol Last Admin: 06/19/18 14:41 Dose: 1 mg/hr, 1 mls/hr Lorazepam (Ativan) 1 mg IVP Q4 PRN PRN Reason: Agitation Scopolamine (Transderm-Scop) 1 patch TD Q3D PRN PRN Reason: Other - Constitutional Appears: Chronically Ill - Head Exam Head Exam: NORMAL INSPECTION - Eye Exam Eye Exam: PERRL Additional comments: Pupils sluggish reaction to light - ENT Exam ENT Exam: Normal Exam - Neck Exam Neck Exam: Normal Inspection - Respiratory Exam Respiratory Exam: Decreased Breath Sounds (at jiang) - Cardiovascular Exam Cardiovascular Exam: REGULAR RHYTHM - GI/Abdominal Exam GI & Abdominal Exam: Soft, Normal Bowel Sounds - Extremities Exam Extremities Exam: Normal Inspection - Back Exam Additional comments: L-S decubitus ulcer stage III. DTI upper back - Neurological Exam Additional comments: moaning, no response to verbal or tactile stimuli - Skin Skin Exam: Warm Assessment and Plan (1) Admission for hospice care Status: Acute - Assessment and Plan (Free Text) Plan: Hospice status , continue Morphine , Scopolamine, Keppra and rest of Tx
[2018-06-20] MEDS: levETIRAcetam 500 MG in Sodium Chloride 0.9% 100 ML IVPB SCH ×2 (09:07→20:29)
--- NOTE | 2018-06-20 15:03 | CP.PCM.PN ---
Subjective - Date & Time of Evaluation Date of Evaluation: 06/20/18 Time of Evaluation: 13:00 - Subjective Subjective: F/U Hospice status. Not following commands, open eyes to touch. Objective - Vital Signs/Intake and Output Vital Signs (last 24 hours): Temp Pulse Resp BP Pulse Ox 97.7 F 90 20 129/69 100 06/20/18 08:23 06/20/18 08:23 06/20/18 08:23 06/20/18 08:23 06/20/18 08:23 - Medications Medications: Current Medications Acetaminophen (Tylenol 650 Mg Supp) 650 mg ND Q4 PRN PRN Reason: Temperature Hydromorphone HCl (Dilaudid) 1 mg IVP Q6 PRN PRN Reason: Pain, severe (8-10) Last Admin: 06/18/18 13:10 Dose: 1 mg Levetiracetam 500 mg/ Sodium (Chloride) 105 mls @ 210 mls/hr IVPB Q12 BELLE Last Admin: 06/20/18 09:07 Dose: 210 mls/hr Morphine Sulfate 100 mg/ (Sodium Chloride) 100 mls @ 1 mls/hr IV .Q24H BELLE; Protocol Last Admin: 06/19/18 14:41 Dose: 1 mg/hr, 1 mls/hr Lorazepam (Ativan) 1 mg IVP Q4 PRN PRN Reason: Agitation Scopolamine (Transderm-Scop) 1 patch TD Q3D PRN PRN Reason: Other Last Admin: 06/20/18 06:04 Dose: 1 patch - Constitutional Appears: No Acute Distress, Chronically Ill - Head Exam Head Exam: NORMAL INSPECTION - Eye Exam Additional comments: Pupils sluggish reaction to light - ENT Exam ENT Exam: Normal Exam - Neck Exam Neck Exam: Normal Inspection - Respiratory Exam Respiratory Exam: Decreased Breath Sounds (at bases) - Cardiovascular Exam Cardiovascular Exam: REGULAR RHYTHM - GI/Abdominal Exam GI & Abdominal Exam: Soft, Normal Bowel Sounds - Extremities Exam Extremities Exam: Normal Inspection - Back Exam Additional comments: L-S decubitus ulcer stage III. DTI upper back - Neurological Exam Additional comments: No responsive to verbal or tactile stimuli, moaning. - Skin Skin Exam: Warm Assessment and Plan (1) Admission for hospice care Status: Acute - Assessment and Plan (Free Text) Plan: Continue current Tx and hospice care.
[2018-06-20] MEDS: Morphine 100 MG in Sodium Chloride 0.9% 96 ML IV SCH (19:08)
[2018-06-21] MEDS: levETIRAcetam 500 MG in Sodium Chloride 0.9% 100 ML IVPB SCH ×2 (08:18→22:05)
--- NOTE | 2018-06-21 14:52 | CP.PCM.PN ---
Subjective - Date & Time of Evaluation Date of Evaluation: 06/21/18 Time of Evaluation: 13:30 - Subjective Subjective: F/U Hospice Status. No response to verbal or tactile stimuli, open eyes at times Objective - Vital Signs/Intake and Output Vital Signs (last 24 hours): Temp Pulse Resp BP Pulse Ox 97.5 F L 85 18 128/71 99 06/21/18 08:16 06/21/18 08:16 06/21/18 08:16 06/21/18 08:16 06/21/18 08:16 Intake and Output: 06/21/18 06/21/18 06:59 18:59 Intake Total 100 Balance 100 - Medications Medications: Current Medications Acetaminophen (Tylenol 650 Mg Supp) 650 mg SD Q4 PRN PRN Reason: Temperature Hydromorphone HCl (Dilaudid) 1 mg IVP Q6 PRN PRN Reason: Pain, severe (8-10) Last Admin: 06/18/18 13:10 Dose: 1 mg Levetiracetam 500 mg/ Sodium (Chloride) 105 mls @ 210 mls/hr IVPB Q12 BELLE Last Admin: 06/21/18 08:18 Dose: 210 mls/hr Morphine Sulfate 100 mg/ (Sodium Chloride) 100 mls @ 1 mls/hr IV .Q24H EBLLE; Protocol Last Admin: 06/20/18 19:08 Dose: 1 mg/hr, 1 mls/hr Lorazepam (Ativan) 1 mg IVP Q4 PRN PRN Reason: Agitation Scopolamine (Transderm-Scop) 1 patch TD Q3D PRN PRN Reason: Other Last Admin: 06/20/18 06:04 Dose: 1 patch - Constitutional Appears: No Acute Distress, Chronically Ill - Head Exam Head Exam: NORMAL INSPECTION - Eye Exam Additional comments: Pupils sluggish reaction to light - ENT Exam ENT Exam: Normal Exam - Neck Exam Neck Exam: Normal Inspection - Respiratory Exam Respiratory Exam: Decreased Breath Sounds (at bases) - Cardiovascular Exam Cardiovascular Exam: REGULAR RHYTHM - GI/Abdominal Exam GI & Abdominal Exam: Soft, Normal Bowel Sounds - Extremities Exam Extremities Exam: Normal Inspection - Back Exam Additional comments: L-S decubitus stage III. DTI upper back - Neurological Exam Additional comments: Non response to verbal or tactile stimuli, moaning. - Skin Skin Exam: Warm Assessment and Plan (1) Admission for hospice care Status: Acute - Assessment and Plan (Free Text) Plan: Continue hospice care and current Tx.
[2018-06-21] MEDS: Morphine 100 MG in Sodium Chloride 0.9% 96 ML IV SCH ×2 (17:45→23:23)
[2018-06-22] MEDS: levETIRAcetam 500 MG in Sodium Chloride 0.9% 100 ML IVPB SCH ×2 (10:09→22:35)
[2018-06-22] MEDS: Morphine 100 MG in Sodium Chloride 0.9% 96 ML IV SCH (12:49)
--- NOTE | 2018-06-22 18:27 | CP.PCM.PN ---
Subjective - Date & Time of Evaluation Date of Evaluation: 06/22/18 Time of Evaluation: 13:30 - Subjective Subjective: Status Hospice. no response to verbal/tactil stimuli Objective - Vital Signs/Intake and Output Vital Signs (last 24 hours): Temp Pulse Resp BP Pulse Ox 97.4 F L 89 20 106/53 L 93 L 06/22/18 16:44 06/22/18 16:44 06/22/18 16:44 06/22/18 16:44 06/22/18 16:44 Intake and Output: 06/22/18 06/22/18 06:59 18:59 Intake Total 29 Balance 29 - Medications Medications: Current Medications Acetaminophen (Tylenol 650 Mg Supp) 650 mg [place] Q4 PRN PRN Reason: Temperature Hydromorphone HCl (Dilaudid) 1 mg IVP Q6 PRN PRN Reason: Pain, severe (8-10) Last Admin: 06/18/18 13:10 Dose: 1 mg Levetiracetam 500 mg/ Sodium (Chloride) 105 mls @ 210 mls/hr IVPB Q12 BELLE Last Admin: 06/22/18 10:09 Dose: 210 mls/hr Morphine Sulfate 100 mg/ (Sodium Chloride) 100 mls @ 1 mls/hr IV .Q24H BELLE; Protocol Last Admin: 06/22/18 12:49 Dose: Not Given Lorazepam (Ativan) 1 mg IVP Q4 PRN PRN Reason: Agitation Scopolamine (Transderm-Scop) 1 patch TD Q3D PRN PRN Reason: Other Last Admin: 06/20/18 06:04 Dose: 1 patch - Constitutional Appears: Chronically Ill - Head Exam Head Exam: NORMAL INSPECTION - Eye Exam Additional comments: Pupils sluggish reaction to light - ENT Exam ENT Exam: Normal Exam - Neck Exam Neck Exam: Normal Inspection - Respiratory Exam Respiratory Exam: Decreased Breath Sounds (at bases) - Cardiovascular Exam Cardiovascular Exam: REGULAR RHYTHM - GI/Abdominal Exam GI & Abdominal Exam: Soft, Normal Bowel Sounds - Back Exam Additional comments: L-S decubitus ulcer stage III. DTI upper back - Neurological Exam Additional comments: No response to verbal or tactile stimuli, moaning - Skin Skin Exam: Warm Assessment and Plan (1) Admission for hospice care Status: Acute - Assessment and Plan (Free Text) Plan: Hospice status, continue current Tx
[2018-06-23] MEDS: levETIRAcetam 500 MG in Sodium Chloride 0.9% 100 ML IVPB SCH ×2 (09:53→21:35)
--- NOTE | 2018-06-23 14:54 | CP.PCM.PN ---
Subjective - Date & Time of Evaluation Date of Evaluation: 06/23/18 Time of Evaluation: 14:20 - Subjective Subjective: F/U Hospice status. No response to verbal/tactile stimuli Objective - Vital Signs/Intake and Output Vital Signs (last 24 hours): Temp Pulse Resp BP Pulse Ox 97.9 F 109 H 18 127/71 94 L 06/23/18 08:22 06/23/18 08:22 06/23/18 08:22 06/23/18 08:22 06/23/18 08:22 - Medications Medications: Current Medications Acetaminophen (Tylenol 650 Mg Supp) 650 mg [place] Q4 PRN PRN Reason: Temperature Levetiracetam 500 mg/ Sodium (Chloride) 105 mls @ 210 mls/hr IVPB Q12 BELLE Last Admin: 06/23/18 09:53 Dose: 210 mls/hr Morphine Sulfate 100 mg/ (Sodium Chloride) 104 mls @ 1.04 mls/hr IV .Q24H BELLE; Protocol Scopolamine (Transderm-Scop) 1 patch TD Q3D PRN PRN Reason: Other Last Admin: 06/20/18 06:04 Dose: 1 patch - Constitutional Appears: Chronically Ill - Head Exam Head Exam: NORMAL INSPECTION - Eye Exam Additional comments: Pupils sluggish reaction to light - ENT Exam ENT Exam: Normal Exam - Neck Exam Neck Exam: Normal Inspection - Respiratory Exam Respiratory Exam: Decreased Breath Sounds (at bases) - Cardiovascular Exam Cardiovascular Exam: REGULAR RHYTHM - GI/Abdominal Exam GI & Abdominal Exam: Soft, Normal Bowel Sounds - Extremities Exam Extremities Exam: Normal Inspection - Back Exam Additional comments: L-S decubitus ulcer stage III. DTI upper back - Neurological Exam Additional comments: No response to verbal or tactile stimuli, moaning at times. - Skin Skin Exam: Warm Assessment and Plan (1) Admission for hospice care Status: Acute - Assessment and Plan (Free Text) Plan: Continue hospice care
[2018-06-23] MEDS: Morphine 100 MG in Sodium Chloride 0.9% 100 ML IV SCH (16:19)
[2018-06-23] MEDS: Morphine 100 MG in Sodium Chloride 0.9% 96 ML IV SCH (16:22)
[2018-06-24] MEDS: levETIRAcetam 500 MG in Sodium Chloride 0.9% 100 ML IVPB SCH ×2 (09:18→20:59)
--- NOTE | 2018-06-24 15:48 | CP.PCM.PN ---
Subjective - Date & Time of Evaluation Date of Evaluation: 06/24/18 Time of Evaluation: 14:20 - Subjective Subjective: F/U Hospice Status Objective - Vital Signs/Intake and Output Vital Signs (last 24 hours): Temp Pulse Resp BP Pulse Ox 97.5 F L 93 H 20 144/88 98 06/24/18 09:00 06/24/18 09:00 06/24/18 09:00 06/24/18 09:00 06/24/18 09:00 - Medications Medications: Current Medications Acetaminophen (Tylenol 650 Mg Supp) 650 mg MD Q4 PRN PRN Reason: Temperature Levetiracetam 500 mg/ Sodium (Chloride) 105 mls @ 210 mls/hr IVPB Q12 BELLE Last Admin: 06/24/18 09:18 Dose: 210 mls/hr Morphine Sulfate 100 mg/ (Sodium Chloride) 104 mls @ 1.04 mls/hr IV .Q24H BELLE; Protocol Last Admin: 06/23/18 16:19 Dose: 1 mg/hr, 1.04 mls/hr Scopolamine (Transderm-Scop) 1 patch TD Q3D PRN PRN Reason: Other Last Admin: 06/23/18 16:22 Dose: 1 patch - Constitutional Appears: Chronically Ill - Head Exam Head Exam: NORMAL INSPECTION - Eye Exam Additional comments: Pupils sluggish reaction to light - ENT Exam ENT Exam: Normal Exam - Neck Exam Neck Exam: Normal Inspection - Respiratory Exam Respiratory Exam: Decreased Breath Sounds (at bases) - Cardiovascular Exam Cardiovascular Exam: REGULAR RHYTHM - GI/Abdominal Exam GI & Abdominal Exam: Soft - Neurological Exam Additional comments: Lethargic, unable to follows commands. - Skin Skin Exam: Warm Assessment and Plan (1) Admission for hospice care Status: Acute - Assessment and Plan (Free Text) Plan: Continue Morphine and hospice care.
[2018-06-24] MEDS: Morphine 100 MG in Sodium Chloride 0.9% 100 ML IV SCH (22:27)
[2018-06-25] MEDS: levETIRAcetam 500 MG in Sodium Chloride 0.9% 100 ML IVPB SCH ×2 (08:58→20:38)
--- NOTE | 2018-06-25 14:47 | CP.PCM.PN ---
Subjective - Date & Time of Evaluation Date of Evaluation: 06/25/18 Time of Evaluation: 11:30 - Subjective Subjective: F/U Hospice Status. Eyes open at times, no response to tactile or verbal stimuli. Objective - Vital Signs/Intake and Output Vital Signs (last 24 hours): Temp Pulse Resp BP Pulse Ox 98.2 F 100 H 18 160/80 H 98 06/25/18 09:00 06/25/18 09:00 06/25/18 09:00 06/25/18 09:00 06/25/18 09:00 Intake and Output: 06/25/18 06/25/18 06:59 18:59 Intake Total 33.9 Balance 33.9 - Medications Medications: Current Medications Acetaminophen (Tylenol 650 Mg Supp) 650 mg [place] Q4 PRN PRN Reason: Temperature Levetiracetam 500 mg/ Sodium (Chloride) 105 mls @ 210 mls/hr IVPB Q12 BELLE Last Admin: 06/25/18 08:58 Dose: 210 mls/hr Morphine Sulfate 100 mg/ (Sodium Chloride) 104 mls @ 1.04 mls/hr IV .Q24H BELLE; Protocol Last Admin: 06/24/18 22:27 Dose: 1 mg/hr, 1.04 mls/hr Scopolamine (Transderm-Scop) 1 patch TD Q3D PRN PRN Reason: Other Last Admin: 06/23/18 16:22 Dose: 1 patch - Constitutional Appears: Chronically Ill - Head Exam Head Exam: NORMAL INSPECTION - Eye Exam Additional comments: Pupils sluggish reaction to lights - ENT Exam ENT Exam: Normal Exam - Neck Exam Neck Exam: Normal Inspection - Respiratory Exam Respiratory Exam: Decreased Breath Sounds (at bases), Rhonchi (scattered) - Cardiovascular Exam Cardiovascular Exam: REGULAR RHYTHM - GI/Abdominal Exam GI & Abdominal Exam: Soft, Normal Bowel Sounds - Extremities Exam Extremities Exam: Normal Inspection - Back Exam Additional comments: L-S decubitus ulcer stage III, DTI upper back. - Neurological Exam Additional comments: No response to verbal or tactile stimuli, - Skin Skin Exam: Warm Assessment and Plan (1) Admission for hospice care Status: Acute - Assessment and Plan (Free Text) Plan: Continue Morphine drip and continue hospice care,
[2018-06-25] MEDS: Morphine 100 MG in Sodium Chloride 0.9% 100 ML IV SCH (22:25)
[2018-06-26] MEDS: levETIRAcetam 500 MG in Sodium Chloride 0.9% 100 ML IVPB SCH ×2 (08:35→20:43)
--- NOTE | 2018-06-26 13:05 | CP.PCM.PN ---
Subjective - Date & Time of Evaluation Date of Evaluation: 06/26/18 Time of Evaluation: 10:15 - Subjective Subjective: F/U Hospice status Lethargic, unable to follow commands Objective - Vital Signs/Intake and Output Vital Signs (last 24 hours): Temp Pulse Resp BP Pulse Ox 97.6 F 84 19 147/76 98 06/26/18 09:00 06/26/18 09:00 06/26/18 09:00 06/26/18 09:00 06/26/18 09:00 - Medications Medications: Current Medications Acetaminophen (Tylenol 650 Mg Supp) 650 mg [place] Q4 PRN PRN Reason: Temperature Levetiracetam 500 mg/ Sodium (Chloride) 105 mls @ 210 mls/hr IVPB Q12 BELLE Last Admin: 06/26/18 08:35 Dose: 210 mls/hr Morphine Sulfate 100 mg/ (Sodium Chloride) 104 mls @ 1.04 mls/hr IV .Q24H BELLE; Protocol Last Admin: 06/25/18 22:25 Dose: 1 mg/hr, 1.04 mls/hr Lorazepam (Ativan) 0.5 mg IVP Q6 PRN PRN Reason: Agitation Last Admin: 06/26/18 11:50 Dose: 0.5 mg Scopolamine (Transderm-Scop) 1 patch TD Q3D PRN PRN Reason: Other Last Admin: 06/26/18 08:35 Dose: 1 patch - Constitutional Appears: Chronically Ill - Head Exam Head Exam: NORMAL INSPECTION - Eye Exam Additional comments: Pupils sluggish reaction to light - ENT Exam ENT Exam: Normal Exam - Neck Exam Neck Exam: Normal Inspection - Respiratory Exam Respiratory Exam: Decreased Breath Sounds (at bases) - Cardiovascular Exam Cardiovascular Exam: REGULAR RHYTHM - GI/Abdominal Exam GI & Abdominal Exam: Soft, Normal Bowel Sounds - Extremities Exam Extremities Exam: Normal Inspection - Back Exam Additional comments: L-S decubitus stage III. DTI upper extremities. - Neurological Exam Additional comments: No responsive to verbal or tactile stimuli. - Skin Skin Exam: Warm Assessment and Plan (1) Admission for hospice care Status: Acute - Assessment and Plan (Free Text) Plan: Continue hospice care.
[2018-06-26] MEDS: Morphine 100 MG in Sodium Chloride 0.9% 100 ML IV SCH (22:26)
[2018-06-27] MEDS: levETIRAcetam 500 MG in Sodium Chloride 0.9% 100 ML IVPB SCH ×2 (09:29→20:55)
[2018-06-27 16:17] VITALS: BP 88/47; TEMP 100.2
--- NOTE | 2018-06-27 16:22 | CP.PCM.PN ---
Subjective - Date & Time of Evaluation Date of Evaluation: 06/27/18 Time of Evaluation: 14:20 - Subjective Subjective: F/U Hospice Status. Lethargic, non verbal. Objective - Vital Signs/Intake and Output Vital Signs (last 24 hours): Temp Pulse Resp BP Pulse Ox 100.2 F H 116 H 16 88/47 L 70 L 06/27/18 16:16 06/27/18 16:16 06/27/18 16:16 06/27/18 16:16 06/27/18 16:16 Intake and Output: 06/27/18 06/27/18 06:59 18:59 Intake Total 104 Balance 104 - Medications Medications: Current Medications Acetaminophen (Tylenol 650 Mg Supp) 650 mg [place] Q4 PRN PRN Reason: Temperature Levetiracetam 500 mg/ Sodium (Chloride) 105 mls @ 210 mls/hr IVPB Q12 BELLE Last Admin: 06/27/18 09:29 Dose: 210 mls/hr Morphine Sulfate 100 mg/ (Sodium Chloride) 104 mls @ 1.04 mls/hr IV .Q24H BELLE; Protocol Last Admin: 06/26/18 22:26 Dose: 1 mg/hr, 1.04 mls/hr Lorazepam (Ativan) 0.5 mg IVP Q6 PRN PRN Reason: Agitation Last Admin: 06/26/18 11:50 Dose: 0.5 mg Scopolamine (Transderm-Scop) 1 patch TD Q3D PRN PRN Reason: Other Last Admin: 06/26/18 08:35 Dose: 1 patch - Constitutional Appears: Chronically Ill - Head Exam Head Exam: NORMAL INSPECTION - Eye Exam Additional comments: Pupils sluggish reaction to light - ENT Exam ENT Exam: Normal Exam - Neck Exam Neck Exam: Normal Inspection - Respiratory Exam Respiratory Exam: Decreased Breath Sounds (at bases) - Cardiovascular Exam Cardiovascular Exam: REGULAR RHYTHM - GI/Abdominal Exam GI & Abdominal Exam: Soft, Normal Bowel Sounds - Extremities Exam Extremities Exam: Normal Inspection - Back Exam Additional comments: L-S decubitus ulcer stage III. DTI upper back - Neurological Exam Additional comments: No response to verbal or tactile stimuli, moaning at times. - Skin Skin Exam: Warm Assessment and Plan (1) Admission for hospice care Status: Acute - Assessment and Plan (Free Text) Plan: Continue Ativan rest of Tx and hospice care.
--- NOTE | 2018-06-27 23:50 | CP.PCM.PRO ---
Pronouncement of Note - Clinical Findings Physical Exam: No Response Verbal/Painful Stimuli, Absent Peripheral Puls es{Carotid & Femoral}, Absent Heart & Breath Sounds, No Pupillary Light Reflex, No Corneal Reflex, Pupils Fixed & Dilated, Absence of Vital Signs - Pronouncement Time Time of Pronouncement of : 23:00 - Notifications Pronouncement Notifications: Atending Notified Communication Studies Professor Notified: No - Autopsy Autopsy Requested: No - [place] [id number]
[2018-06-28 01:28] VITALS: PULSE 0; RESP 0; O2SAT 8
--- NOTE | 2018-06-28 16:22 | CP.PCM.DIS ---
Provider - Provider Date of Admission: 06/17/18 15:56 Attending physician: Sj Lara MD Diagnosis - Discharge Diagnosis (1) Admission for hospice care Status: Acute Priority: High Discharge Exam - Head Exam Head Exam: NORMAL INSPECTION Discharge Plan - Follow Up Plan Condition: Disposition: WITH WITHOUT AUTOPSY
== END 2018-06-28 01:10 | DRG 951 ==
LOC: H.MEDSURG1 15:56
PROVIDERS: ADMIT Internal Medicine Pulmonary Disease; ATTEND Internal Medicine Pulmonary Disease
DX: Z51.5 Encounter for palliative care (principal); L89.103 Pressure ulcer of unspecified part of back, stage 3; A41.9 Sepsis, unspecified organism; J69.0 Pneumonitis due to inhalation of food and vomit; G93.41 Metabolic encephalopathy; R65.20 Severe sepsis without septic shock; L89.100 Pressure ulcer of unspecified part of back, unstageable; Z88.0 Allergy status to penicillin; F03.90 Unspecified dementia, unspecified severity, without behavioral disturbance, psychotic disturbance, mood disturbance, and anxiety; I11.0 Hypertensive heart disease with heart failure; I50.9 Heart failure, unspecified; E78.00 Pure hypercholesterolemia, unspecified; J44.9 Chronic obstructive pulmonary disease, unspecified; H91.90 Unspecified hearing loss, unspecified ear; G40.909 Epilepsy, unspecified, not intractable, without status epilepticus; Z66 Do not resuscitate